=== PATIENT | male | born 1940 | race Caucasian/White ===

== ENCOUNTER 2016-11-20 10:45 | Emergency (ER) | payer OTHER ==
[2016-11-20 10:57] VITALS: BP 108/62; PULSE 82; TEMP 97.9; BMI 25.8
--- NOTE | 2016-11-20 11:57 | PDOC ---
[id number] 97 11/20/16 10:53 11/20/16 10:53 11/20/16 10:53 11/20/16 10:53 11/20/16 10:53 - Physical Exam Comments: 11/20/16 11:57 The patient was examined by [JHONATHAN Whitt] under my direct supervision. I personally evaluated the patient. I concur with the above findings and the plan of care. ED Treatment Course - LABORATORY CBC & Chemistry Diagram: 11/20/16 12:36 11/20/16 12:36 *DC/Admit/Observation/Transfer Diagnosis at time of Disposition: Lightheaded, Prostatitis - Discharge Dispostion Disposition: HOME Condition at time of disposition: Good - Prescriptions Prescriptions: Ciprofloxacin HCl [Cipro] 500 mg PO BID #28 tablet - Referrals Referrals: Josefa Delgadillo MD [Staff Physician] - - Patient Instructions Printed Discharge Instructions: How to Monitor Your Blood Pressure at Home, DI for Acute Prostatitis Additional Instructions: Please take antibiotics until completed. Drink plenty of fluids. Please get up in the morning in increments to check your blood pressure routinely. Please also notify your primary care physician of today's visit.
[2016-11-20 12:49] LABS: MCH 20.1 pg (25.7-33.7); MCHC 31.1 g/dl (32.0-35.9); MEAN CELL VOLUME 64.5 fl (80-96); MEAN PLT VOLUME 9.4 fl (7.5-11.1); NEUTROPHILS 71.8 % (42.8-82.8); RDW 17.9 % (11.9-15.9); WHITE BLOOD COUNT 6.3 K/mm3 (4.0-10.0)
[2016-11-20 13:15] LABS: ALBUMIN 4.6 g/dl (3.4-5.0); ALK PHOS 81 U/L (45-117); ANION GAP 13 (8-16); BILIRUBIN,TOTAL 1.5 mg/dL (0.2-1.0); CALCIUM 9.4 mg/dL (8.5-10.1); CO2 24 mmol/L (21-32); CREATININE 1.1 mg/dL (0.7-1.3); GLUCOSE,RANDOM 212 mg/dL (74-106); SGOT/AST 23 U/L (15-37); SGPT/ALT 37 U/L (12-78)
--- NOTE | 2016-11-20 13:19 | PDOC ---
History of Present Illness - General Chief Complaint: Blood Pressure Problem Stated Complaint: HIGH BLOOD PRESSURE, LIGHTHEADED Time Seen by Provider: 11/20/16 11:18 History Source: Patient Exam Limitations: No Limitations - History of Present Illness Initial Comments: 11/20/16 12:18 76-year-old male with history of hypertension diabetes and CAD presents the ED with complaints of lightheadedness one hour after taking his morning meds. Patient states similar symptoms yesterday but resolved after lying down and drinking some fluids. Patient states since symptoms occurred again today he decided come to the ER for further evaluation. Patient states took his blood pressures morning which is roughly 112/74 and then when he felt dizzy he took it again and was 102/66 which made him concerned and decided to seek treatment. Patient states no recent travel, recent illness, recent change in weight but does state on 10/04/2016 his Cardizem was switched from 30 twice a day to 60 mg at night. Patient denied associated symptoms such as headache, visual changes, nausea, chest pain, shortness of breath, or abdominal pain. Patient states is followed by Dr. Sudeep doll. Timing/Duration: intermittent, resolved prior to arrival Severity: mild Associated Symptoms: reports: other (lightheadedness) Past History - Past Medical History Allergies/Adverse Reactions: Allergies Allergy/AdvReac Type Severity Reaction Status Date / Time No Known Allergies Allergy Verified 11/20/16 10:56 Home Medications: Ambulatory Orders Amlodipine Besylate [Norvasc -] 10 mg PO DAILY 06/01/15 Aspirin [ASA -] 81 mg PO DAILY 06/01/15 Canagliflozin [Invokana] 100 mg PO AM 06/01/15 Metformin HCl [Glucophage] 1,000 mg PO BID 06/01/15 Metoprolol Succinate [Toprol Xl -] 50 mg PO DAILY 06/01/15 Pantoprazole Sodium [Protonix] 40 mg PO DAILY 06/01/15 Losartan/Hydrochlorothiazide [Losartan-Hctz 100-12.5 mg Tab] 1 each PO DAILY 12/30 Diabetes: Yes HTN: Yes Hypercholesterolemia: Yes - Surgical History Abdominal Surgery: No Appendectomy: No Cardiac Surgery: No - Psycho/Social/Smoking Cessation Hx Suicidal Ideation: No Smoking Status: Yes Smoking History: Never smoked Have you smoked in the past 12 months: No Number of Cigarettes Smoked Daily: 0 Information on smoking cessation initiated: No Hx Alcohol Use: No Drug/Substance Use Hx: No Substance Use Type: None Patient Lives Alone: No Lives with/in: spouse/SO Review of Systems - Review of Systems Able to Perform ROS?: Yes Constitutional: No: Symptoms Reported HEENTM: No: Symptoms Reported Respiratory: No: Symptoms reported Cardiac (ROS): Yes: Lightheadedness ABD/GI: No: Symptoms Reported : No: Symptoms Reported Musculoskeletal: No: Symptoms Reported Integumentary: No: Symptoms Reported Neurological: No: Symptoms reported Endocrine: No: Symptoms Reported Hematologic/Lymphatic: No: Symptoms Reported *Physical Exam - Vital Signs Last Vital Signs Temp Pulse Resp BP Pulse Ox 97.9 F 82 18 108/62 97 11/20/16 10:53 11/20/16 10:53 11/20/16 10:53 11/20/16 10:53 11/20/16 10:53 - Physical Exam General Appearance: Yes: Nourished, Appropriately Dressed. No: Apparent Distress HEENT: positive: EOMI, JING. negative: Pale Conjunctivae Neck: positive: Supple Respiratory/Chest: positive: Lungs Clear, Normal Breath Sounds. negative: Respiratory Distress, Accessory Muscle Use Cardiovascular: positive: Regular Rhythm, Regular Rate. negative: Murmur Gastrointestinal/Abdominal: positive: Soft. negative: Tenderness Extremity: positive: Normal Capillary Refill. negative: Pedal Edema Integumentary: positive: Normal Color, Warm, Moist Neurologic: positive: Motor Strength 5/5 (ambulatory) Heart Score/ECG Review - ECG Intrepretation Rhythm: Regular Rhythm (rate 77 with left axis deviation and left first-degree AV block. Unchanged from previous) ED Treatment Course - LABORATORY CBC & Chemistry Diagram: 11/20/16 12:36 11/20/16 12:36 - ADDITIONAL ORDERS Additional order review: Laboratory Results 11/20/16 12:36 Sodium 137 Potassium 4.1 Chloride 100 Carbon Dioxide 24 Anion Gap 13 BUN 24 H D Creatinine 1.1 D Creat Clearance w eGFR > 60 Random Glucose 212 H D Calcium 9.4 Total Bilirubin 1.5 H D AST 23 ALT 37 Alkaline Phosphatase 81 D Total Protein 8.0 Albumin 4.6 - RADIOLOGY Radiology Studies Ordered: Category Date Time Status CHEST PA & LAT [RAD] Stat Radiology 11/20/16 12:05 Completed Medical Decision Making - Medical Decision Making 11/20/16 13:21 Patient here with episodic lightheadedness 2 after taking his blood pressure meds this morning and yesterday morning. Patient is currently asymptomatic but decided come to the ER for further evaluation. Patient ordered for basic labs including EKG and chest x-ray with urine although this may be related to his recent change of Cardizem versus reevaluation of his meds in general. 11/20/16 14:02 Laboratory Tests 11/20/16 11/20/16 11/20/16 12:36 12:36 12:50 WBC 6.3 Hgb 12.1 Hct 39.0 Plt Count Pending Neutrophils % 71.8 Sodium 137 Potassium 4.1 Chloride 100 Carbon Dioxide 24 Anion Gap 13 BUN 24 H D Creatinine 1.1 D Random Glucose 212 H D Total Bilirubin 1.5 H D AST 23 ALT 37 Urine Glucose (UA) 3+ H Urine Blood 3+ H Ur Leukocyte Esterase 1+ H Urine RBC 87 Urine WBC 56 Case discussed with patient's urologist secondary to BPH and frequent UTIs, Dr. Josefa Doll's who happened to be here for another patient and states to start patient on Cipro and discharged home urine culture was sent. 11/20/16 14:03 *DC/Admit/Observation/Transfer Diagnosis at time of Disposition: Lightheaded Prostatitis Qualifiers: Prostatitis type: acute Qualified Code(s): N41.0 - Acute prostatitis - Discharge Dispostion Disposition: HOME Condition at time of disposition: Good - Referrals Referrals: Josefa Doll MD [Staff Physician] - - Patient Instructions Printed Discharge Instructions: How to Monitor Your Blood Pressure at Home, DI for Acute Prostatitis Additional Instructions: Please take antibiotics until completed. Drink plenty of fluids. Please get up in the morning in increments to check your blood pressure routinely. Please also notify your primary care physician of today's visit.
[2016-11-20 13:29] LABS: URINE APPEARANCE SLCLOUDY; URINE BILIRUBIN NEGATIVE (NEGATIVE); URINE COLOR YELLOW; URINE GLUCOSE (UA) 3+ (NEGATIVE); URINE KETONE NEGATIVE (NEGATIVE); URINE NITRITE NEGATIVE (NEGATIVE); URINE PROTEIN NEGATIVE (NEGATIVE); URINE UROBILINOGEN NEGATIVE E.U./dl (0.2-1.0)
[2016-11-20 13:35] LABS: URINE BLOOD 3+ (NEGATIVE); URINE LEUK ESTERASE 1+ (NEGATIVE)
[2016-11-20 13:37] LABS: URINE HYALINE CAST 5 /lpf; URINE MUCUS RARE; URINE RBC 87 /hpf (0-3); URINE WBC 56 /hpf (3-5)
--- NOTE | 2016-11-20 15:02 | PN ---
Progress Note (short form) - Note Progress Note: 76 M followed for BPh presented w lightheadedness, no acute pathology found. c/ o frequency and dysuria. pe: abd soft, non tender, normoactive bs, prostate 2+ soft, NT No acute pathology at present plan: c/w flomax and will give cipro for 1 week and follow up in office prn.
[2016-11-20 15:19] LABS: PLATELET COUNT 127 K/MM3 (134-434); PLATELET ESTIMATE SLT DECREASED (NORMAL)
[2016-11-20 15:20] LABS: ANISOCYTOSIS 2+; HYPOCHROMIA 2+; MICROCYTOSIS 2+; OVALOCYTES 1+; PLATELET COMMENT2 NO CLOTTING DETECTED; POIKILOCYTOSIS 2+; POLYCHROMASIA 2+; SPHEROCYTE 1+
--- NOTE | 2016-11-20 16:56 | EKG ---
Test Reason : Blood Pressure : / mmHG Vent. Rate : 077 BPM Atrial Rate : 077 BPM P-R Int : 226 ms QRS Dur : 108 ms QT Int : 374 ms P-R-T Axes : 021 -50 041 degrees QTc Int : 423 ms SINUS RHYTHM WITH 1ST DEGREE A-V BLOCK LEFT AXIS DEVIATION ABNORMAL ECG WHEN COMPARED WITH ECG OF 01-JUN-2015 10:53, NO SIGNIFICANT CHANGE WAS FOUND Confirmed by AURA MCFARLAND MD ([id number]) on 11/20/2016 4:56:25 PM Referred By: Confirmed By:AURA MCFARLAND MD
== END 2016-11-20 14:18 | disposition home or self-care (01) ==
LOC: JER 10:45
DX: R42 Dizziness and giddiness (principal); N40.0 Benign prostatic hyperplasia without lower urinary tract symptoms; N41.0 Acute prostatitis; I10 Essential (primary) hypertension; E78.00 Pure hypercholesterolemia, unspecified; E11.9 Type 2 diabetes mellitus without complications; Z79.84 Long term (current) use of oral hypoglycemic drugs
CPT/HCPCS: 36415; 71020-TC; 80053; 81003; 81015; 85025; 87086; 93005; 93010; 99281-25

== ENCOUNTER 2017-01-22 21:45 | Emergency (ER) | payer OTHER ==
[2017-01-22 21:57] VITALS: BP 157/99; TEMP 97.8; BMI 27.2
--- NOTE | 2017-01-22 22:22 | PDOC ---
History of Present Illness - General History Source: Patient Exam Limitations: No Limitations <Luis Manuel Pineda - Last Filed: 01/22/17 22:39> - History of Present Illness Initial Comments: 01/23/17 00:40 Patient is a 76 year old male with significant medical hx of HTN, HLD, DM, and bladder tumor s/p tumor removal who is presenting to the ED with complaint of high blood pressure. Today the patient took his blood pressure and saw a systolic reading in the 140s. He then took his medication and checked it again later, seeing a systolic reading in the 170s. Concerned, the patient decided to come to the ED for further evaluation. The patient is compliant with his blood pressure medications. He does not have any other complaints or constitutional symptoms. Denies any lightheadedness, chest pain, nausea, headaches, or shortness of breath. <Beatrice José - Last Filed: 01/23/17 00:43> - General Chief Complaint: Blood Pressure Problem Stated Complaint: BP PROBLEM Time Seen by Provider: 01/22/17 22:08 Past History - Past Medical History Diabetes: Yes HTN: Yes Hypercholesterolemia: Yes - Surgical History Abdominal Surgery: No Appendectomy: No Cardiac Surgery: No - Psycho/Social/Smoking Cessation Hx Suicidal Ideation: No Smoking Status: Yes Smoking History: Never smoked Have you smoked in the past 12 months: No Number of Cigarettes Smoked Daily: 0 Hx Alcohol Use: No Drug/Substance Use Hx: No Substance Use Type: None <Luis Manuel Pineda - Last Filed: 01/22/17 22:39> <Beatrice José - Last Filed: 01/23/17 00:43> - Past Medical History Allergies/Adverse Reactions: Allergies Allergy/AdvReac Type Severity Reaction Status Date / Time No Known Allergies Allergy Verified 01/22/17 21:57 Home Medications: Ambulatory Orders Amlodipine Besylate [Norvasc -] 10 mg PO DAILY 06/01/15 Aspirin [ASA -] 81 mg PO DAILY 06/01/15 Canagliflozin [Invokana] 100 mg PO AM 06/01/15 Metformin HCl [Glucophage] 1,000 mg PO BID 06/01/15 Metoprolol Succinate [Toprol Xl -] 50 mg PO DAILY 06/01/15 Pantoprazole Sodium [Protonix] 40 mg PO DAILY 06/01/15 Losartan/Hydrochlorothiazide [Losartan-Hctz 100-12.5 mg Tab] 1 each PO DAILY 12/30 Ciprofloxacin HCl [Cipro] 500 mg PO BID #28 tablet 11/20/16 Review of Systems - Review of Systems Comments:: 01/23/17 00:41 CONSTITUTIONAL: No reported: Fever, Chills, Diaphoresis, Generalized Weakness, Malaise, Loss of Appetite HEENT: No reported: Rhinorrhea, Nasal Congestion, Throat Pain, Throat Swelling, Difficulty Swallowing, Mouth Swelling, Ear Pain, Eye Pain, Visual Changes CARDIOVASCULAR: Reported: High Blood Pressure No reported: Chest Pain, Syncope, Palpitations, Irregular Heart Rate, Lightheadedness, Peripheral Edema RESPIRATORY: No reported: Cough, Shortness of Breath, SOB with Exertion, Orthopnea, Wheezing , Stridor, Hemoptysis GASTROINTESTINAL: No reported: Abdominal pain, Abdominal Distension, Nausea, Vomiting, Diarrhea, Constipation, Melena, Hematochezia GENITOURINARY: No reported: Dysuria, Frequency, Urgency, Hesitancy, Flank Pain, Genital Pain MUSCULOSKELETAL: No reported: Myalgia, Arthralgia, Joint Swelling, Back pain, Neck Pain SKIN: No reported: Rash, Itching, Pallor HEMEATOLOGIC/IMMUNOLOGIC: No reported: Easy Bleeding, Easy Bruising, Lymphadenopathy, Frequent infections ENDOCRINE: No reported: Unexplained Weight Gain, Unexplained Weight Loss, Heat Intolerance , Cold Intolerance NEUROLOGIC: No reported: Headache, Focal Weakness, Paresthesias, Vertigo, Lightheadedness, Unsteady Gait, Seizure, Mental Status Changes, Incontinence PSYCHIATRIC: No reported: Anxiety, Depression <Beatrice José - Last Filed: 01/23/17 00:43> *Physical Exam - Vital Signs Last Vital Signs Temp Pulse Resp BP Pulse Ox 97.8 F 82 18 157/99 95 01/22/17 21:54 01/22/17 21:54 01/22/17 21:54 01/22/17 21:54 01/22/17 21:54 <Luis Manuel Pineda - Last Filed: 01/22/17 22:39> - Vital Signs Last Vital Signs Temp Pulse Resp BP Pulse Ox 97.8 F 83 18 157/99 95 01/22/17 21:54 01/22/17 21:54 01/22/17 21:54 01/22/17 21:54 01/22/17 21:54 - Physical Exam Comments: 01/23/17 00:41 GENERAL: The patient is awake, alert, and fully oriented, Nontoxic - in no acute distress. HEAD: Normocephalic, atraumatic. EYES: extraocular movements intact, sclera anicteric, conjunctiva clear. ENT: Normal voice, Moist mucous membranes. NECK: Normal range of motion, supple LUNGS: Breath sounds equal, clear to auscultation bilaterally. No wheezes, no rhonchi, no rales. HEART: Regular rate and rhythm, without murmur, rub or gallop. ABDOMEN: Soft, nontender, normoactive bowel sounds. No guarding, no rebound.No CVA tenderness EXTREMITIES: Normal range of motion, no edema. No clubbing or cyanosis. No cords, erythema, or tenderness. NEUROLOGICAL: No facial assymetry, Normal speech, PSYCH: Normal mood, normal affect. SKIN: Warm, Dry, normal turgor <Beatrice José - Last Filed: 01/23/17 00:43> Medical Decision Making - Medical Decision Making 01/22/17 22:34 76y M hx htn, hl, dm, presents with hypertension. The pt wwas otherwise asypmtomatic without any associated cp, sob, headache, dizziness, vision changes , leg edema, abd pain, back pain, numbness/tingling/weakness. Pts BP here is reasonable at 150s spb will dc the pt with pmd fu for further evaluation of his bp return precuations were discussed I discussed the physical exam findings, ancillary test results and final diagnoses with the patient. I answered all of the patient's questions. The patient was satisfied with the care received and felt comfortable with the discharge plan and treatment plan. The patient will call their primary care physician within 24 hours to arrange follow-up and will return to the Emergency Department with any new, persistent or worsening symptoms. A portion of this note was documented by scribe services under my direction. I have reviewed the details of the note, within reason, and agree with the documentation with the following case summary and management plan written by me <Luis Manuel Pineda - Last Filed: 01/22/17 22:39> *DC/Admit/Observation/Transfer - Discharge Dispostion Admit: No <Luis Manuel Pineda - Last Filed: 01/22/17 22:39> - Attestations Scribe Attestion: 01/23/17 00:41 Documentation prepared by Beatrice José, acting as medical historian for Luis Manuel Pineda MD. <Beatrice José - Last Filed: 01/23/17 00:43> Diagnosis at time of Disposition: Hypertension Qualifiers: Hypertension type: essential hypertension Qualified Code(s): I10 - Essential ( primary) hypertension - Discharge Dispostion Disposition: HOME Condition at time of disposition: Improved - Referrals Referrals: Andrea Delgadillo MD [Primary Care Provider] - - Patient Instructions Printed Discharge Instructions: DI for High Blood Pressure Additional Instructions: Return to the emergency department immediately with ANY new, persistent or worsening symptoms. You MUST call and follow up with your doctor tomorrow for further evaluation of your symptoms. Results were discussed with you. Please make sure your doctor reviews the results of your emergency evaluation. If you had any xrays during your visit, it was read preliminarily by myself, a Radiologist will review it and if there are any additional findings we will call you. Print Language: SURINAMESE
[2017-01-22 23:51] VITALS: PULSE 83
== END 2017-01-22 23:11 | disposition home or self-care (01) ==
LOC: JER 21:45
DX: I10 Essential (primary) hypertension (principal); E78.5 Hyperlipidemia, unspecified; E11.9 Type 2 diabetes mellitus without complications; Z79.84 Long term (current) use of oral hypoglycemic drugs; Z79.82 Long term (current) use of aspirin
CPT/HCPCS: 99283-25

== ENCOUNTER 2017-08-10 19:09 | Emergency (ER) | payer OTHER ==
[2017-08-10 19:42] VITALS: BMI 29.0
[2017-08-10] MEDS ORDERED: LABETALOL HCL 5 MG/1 ML (100MG/20 ML VIAL) IVPUSH ONE (20:35)
--- NOTE | 2017-08-10 20:35 | PDOC ---
History of Present Illness - General Chief Complaint: Blood Pressure Problem Stated Complaint: BLOOD PRESSURE Time Seen by Provider: 08/10/17 20:18 History Source: Patient Exam Limitations: No Limitations - History of Present Illness Initial Comments: 08/10/17 21:55 77yo Male patient w/ PmHx: HTN, GERD, NIDDM presents to ED c/o elevated b/p. Patient states he took all his blood pressure medications as usual and his b/p systolic run 120's. He reports today it has been 150-160's. He denies OTC medication use, recent stress, CP, Abd pain, n/v/d, fever, rectal bleeding, hematuria, dysuria, back pain, cough, congestion, or any other complaints at this time. PCP- Hiral Sawyer Timing/Duration: getting worse Severity: mild, moderate, severe Modifying Factors: improves with: medication. worse with: cold therapy, eating , immobilization, movement, rest, other Associated Symptoms: denies: denies symptoms, chest pain, cough, diaphoresis, fever/chills, headaches, loss of appetite, malaise, nausea/vomiting, rash, seizure, shortness of breath, syncope, weakness, other Past History - Travel Traveled outside of the country in the last 30 days: No Close contact w/someone who was outside of country & ill: No - Past Medical History Allergies/Adverse Reactions: Allergies Allergy/AdvReac Type Severity Reaction Status Date / Time No Known Allergies Allergy Verified 08/10/17 19:39 Home Medications: Ambulatory Orders Aspirin [ASA -] 81 mg PO DAILY 06/01/15 Canagliflozin [Invokana] 100 mg PO AM 06/01/15 Metformin HCl [Glucophage] 1,000 mg PO BID 06/01/15 Metoprolol Succinate [Toprol Xl -] 100 mg PO DAILY 06/01/15 Pantoprazole Sodium [Protonix] 40 mg PO DAILY 06/01/15 Losartan/Hydrochlorothiazide [Losartan-Hctz 100-12.5 mg Tab] 1 tab PO DAILY Nifedipine ER [Procardia Xl -] 60 mg PO HS 08/10/17 Silodosin [Rapaflo] 4 mg PO HS 08/10/17 Diabetes: Yes HTN: Yes Hypercholesterolemia: Yes - Surgical History Abdominal Surgery: No Appendectomy: No Cardiac Surgery: No - Suicide/Smoking/Psychosocial Hx Smoking Status: Yes Smoking History: Former smoker Have you smoked in the past 12 months: No Number of Cigarettes Smoked Daily: 0 Information on smoking cessation initiated: No Hx Alcohol Use: No Drug/Substance Use Hx: No Substance Use Type: None Review of Systems - Review of Systems Able to Perform ROS?: Yes Is the patient limited Montenegrin proficient: No All Other Systems: Reviewed and Negative *Physical Exam - Vital Signs Last Vital Signs Temp Pulse Resp BP Pulse Ox 98.7 F 81 18 183/98 99 08/10/17 20:17 08/10/17 20:17 08/10/17 20:17 08/10/17 20:17 08/10/17 20:17 - Physical Exam General Appearance: Yes: Nourished, Appropriately Dressed. No: Apparent Distress, Mild Distress, Moderate Distress, Severe Distress Neck: positive: Trachea midline, Supple. negative: Rigid, Stridor, Lymphadenopathy (R), Lymphadenopathy (L), Tender lateral, Tender midline Respiratory/Chest: positive: Lungs Clear, Normal Breath Sounds. negative: Chest Tender, Respiratory Distress, Accessory Muscle Use, Labored Respiration, Rapid RR, Decreased Breath Sounds, Paradoxal Breathing, Rhonchi, Stridor, Wheezing Cardiovascular: positive: Regular Rhythm, Regular Rate. negative: Tachycardia Gastrointestinal/Abdominal: positive: Normal Bowel Sounds, Soft. negative: Tender, Distended, Guarding, Rebound, Tenderness Musculoskeletal: positive: Normal Inspection. negative: CVA Tenderness, Decreased Range of Motion, Vertebral Tenderness Extremity: positive: Normal Capillary Refill, Normal Inspection, Normal Range of Motion. negative: Tender, Pedal Edema, Swelling, Calf Tenderness, Erythema, Inflammation Integumentary: positive: Normal Color, Dry, Warm. negative: Erythema, Diaphoresis, Moist, Hives, Rash, Swelling Neurologic: positive: radar tester II-XII NML intact, Fully Oriented, Alert, Normal Mood/ Affect, Normal Response, Motor Strength 5/5 Heart Score/ECG Review - History History: Slightly suspicious - Electrocardiogram EKG: Normal - Age Age: >/= 65 - Risk Factors Risk Factors Heart Score: No Hx Hypercholesterolemia, Yes Hx Hypertension, Yes Hx Diabetes, No Smoking History, No Positive family hx of cardiac disease, No Hx Obesity Based on the list above the patient has:: 1-2 risk factors - Troponin Troponin: </= normal limit - Score Heart Score - Total: 3 - ECG Impressions Normal ECG: Yes Non-specific ST Elevation: No Ischemic Changes: No Bradycardia: No Heart Block: 1st Degree Block(>20mils) Torsades carmen Pointes: No WPW: No Comment:: 08/10/17 22:10 Sinus rhythm with 1st degree AV block Left axis deviation ED Treatment Course - LABORATORY CBC & Chemistry Diagram: 08/10/17 21:16 08/10/17 21:16 Medical Decision Making - Medical Decision Making 08/10/17 23:46 Repeat b/p 148/80. Patient has no complaints of CP, Abd pain, Back pain, n/v/d, fever, diff breathing or any acute process. Called place to PMD, unable to ge return phone call. Patient requesting d/c as he has an appointment next week with Dr. Delgadillo. Plan: d/c to home. f/u with PCP. Return if any changes. *DC/Admit/Observation/Transfer Diagnosis at time of Disposition: Hypertension Qualifiers: Hypertension type: other secondary hypertension Qualified Code(s): I15.8 - Other secondary hypertension; I15.8 - Other secondary hypertension; I15.8 - Other secondary hypertension - Discharge Dispostion Disposition: HOME Condition at time of disposition: Improved Admit: No - Referrals Referrals: Josefa Delgadillo MD [Staff Physician] - - Patient Instructions Printed Discharge Instructions: DI for High Blood Pressure, How to Monitor Your Blood Pressure at Home Additional Instructions: Keep your appointment with Dr. Delgadillo. Call this week for follow up appointment. Return if symptoms worsen or any concerns for further evaluation. Print Language: GRENADIAN
[2017-08-10 20:56] VITALS: TEMP 98.7
[2017-08-10] MEDS ORDERED: LABETALOL HCL 5 MG/1 ML (200MG/40ML VIAL) IVPB ONE (20:59)
[2017-08-10 21:37] LABS: BASOPHIL 2.5 % (0-2.0); EOSINOPHIL 2.2 % (0-4.5); MCH 20.6 pg (25.7-33.7); MCHC 32.1 g/dl (32.0-35.9); MEAN CELL VOLUME 64.3 fl (80-96); MEAN PLT VOLUME 9.7 fl (7.5-11.1); NEUTROPHILS 54.9 % (42.8-82.8); PLATELET COUNT 140 K/MM3 (134-434); RDW 16.9 % (11.9-15.9); WHITE BLOOD COUNT 6.6 K/mm3 (4.0-10.0)
[2017-08-10 21:41] LABS: INR 1.08 (0.82-1.09); PROTHROMBIN TIME (PATIENT) 12.2 SEC (9.98-11.88)
[2017-08-10 21:50] LABS: ALBUMIN 4.4 g/dl (3.4-5.0); ANION GAP 9 (8-16); CALCIUM 9.2 mg/dL (8.5-10.1); CO2 27 mmol/L (21-32); CREATININE 0.8 mg/dL (0.7-1.3); GLUCOSE,RANDOM 109 mg/dL (74-106); SGOT/AST 26 U/L (15-37); SGPT/ALT 39 U/L (12-78); TOT PROT 7.6 g/dl (6.4-8.2)
[2017-08-10 21:52] LABS: ALK PHOS 79 U/L (45-117); CPK 135 IU/L (39-308); TROPONIN I < 0.02 ng/ml (0.00-0.05)
[2017-08-10 22:06] LABS: URINE APPEARANCE SLCLOUDY; URINE BILIRUBIN NEGATIVE (NEGATIVE); URINE BLOOD 3+ (NEGATIVE); URINE COLOR YELLOW; URINE GLUCOSE (UA) 3+ (NEGATIVE); URINE KETONE NEGATIVE (NEGATIVE); URINE NITRITE NEGATIVE (NEGATIVE); URINE UROBILINOGEN NEGATIVE mg/dL (0.2-1.0)
[2017-08-10 22:12] LABS: URINE PROTEIN 1+ (NEGATIVE)
[2017-08-10 22:16] LABS: ANISOCYTOSIS 2+; HYPOCHROMIA 2+; MICROCYTOSIS 2+; PLATELET COMMENT2 NO CLOTTING DETECTED; PLATELET COMMENT3 FEW LARGE PLTS; PLATELET ESTIMATE SLT DECREASED (NORMAL); POIKILOCYTOSIS 1+; POLYCHROMASIA 1+
[2017-08-10] MEDS ORDERED: cloNIDine HCL 0.1 MG TABLET PO ONE (22:28)
[2017-08-10] MEDS ORDERED: cloNIDine HCL 0.1 MG TABLET ONE (22:41)
[2017-08-10 23:44] LABS: URINE RBC MANY /hpf (0-3); URINE WBC FEW /hpf (3-5)
[2017-08-10 23:46] LABS: URINE BACTERIA FEW /hpf (NONE SEEN)
[2017-08-11 00:20] VITALS: BP 148/81; PULSE 70
[2017-08-11 10:38] LABS: URINE LEUK ESTERASE Negative (NEGATIVE)
--- NOTE | 2017-08-11 10:40 | EKG ---
Test Reason : Blood Pressure : / mmHG Vent. Rate : 062 BPM Atrial Rate : 062 BPM P-R Int : 246 ms QRS Dur : 110 ms QT Int : 430 ms P-R-T Axes : 059 -40 009 degrees QTc Int : 436 ms SINUS RHYTHM WITH 1ST DEGREE A-V BLOCK LEFT AXIS DEVIATION INFERIOR INFARCT , AGE UNDETERMINED ABNORMAL ECG WHEN COMPARED WITH ECG OF 20-NOV-2016 12:23, INFERIOR INFARCT IS NOW PRESENT Confirmed by VICKY LYNCH, RAHEL ([id number]) on 08/11/2017 10:40:24 AM Referred By: Confirmed By:RAHEL PERRY MD
== END 2017-08-11 00:20 | disposition home or self-care (01) ==
LOC: JER 19:09
PROC: 3E033GC Introduction of Other Therapeutic Substance into Peripheral Vein, Percutaneous Approach (ICD-10-PCS; principal; 2017-08-10)
DX: I15.8 Other secondary hypertension (principal); E78.00 Pure hypercholesterolemia, unspecified; E11.9 Type 2 diabetes mellitus without complications; Z79.84 Long term (current) use of oral hypoglycemic drugs
CPT/HCPCS: 36415; 80053; 81003; 81015; 82550; 84484; 85025; 85610; 93005; 93010; 99283-25

== ENCOUNTER 2017-09-02 11:22 | Day surgery (SDC) | payer OTHER ==
[2017-08-30 16:16] VITALS: BMI 27.2
[2017-09-02] MEDS ORDERED: MIDAZOLAM HCL 2 MG/2 ML SINGLE DOSE VIAL ONE (16:14)
[2017-09-02] MEDS ORDERED: ceFAZolin SODIUM 1 GM VIAL IVPB ONE (16:33)
[2017-09-02] MEDS ORDERED: ceFAZolin SODIUM 1 GM VIAL ONE (16:36)
[2017-09-02] MEDS ORDERED: DEXAMETHASONE SOD PHOSPHATE 4 MG/1 ML VIAL ONE (16:38)
[2017-09-02] MEDS ORDERED: LIDOCAINE HCL/PF 2% SDV 5ML VIAL ONE (16:38)
[2017-09-02] MEDS ORDERED: ONDANSETRON 4 MG/2 ML VIAL IVPUSH PRN (17:13)
[2017-09-02] MEDS ORDERED: LACTATED RINGERS SOLUTION 1,000 ML IV SCH (17:15)
[2017-09-02 17:51] VITALS: TEMP 98.2
[2017-09-02 18:54] VITALS: BP 138/79; PULSE 60
--- NOTE | 2017-09-04 10:41 | OP ---
DATE OF OPERATION: 09/02/2017 PREOPERATIVE DIAGNOSIS: Bladder tumor. POSTOPERATIVE DIAGNOSIS: Bladder tumor. OPERATIVE PROCEDURE: Cystourethroscopy, urethral dilation, and transurethral resection of bladder tumors on the left hemitrigone, right posterior dome, and right lateral wall, a large amount of tumor burden and malignant. ANESTHESIA: General. DESCRIPTION OF PROCEDURE: Under the above-stated anesthesia, patient is prepped and draped in the usual sterile manner. A resectoscope was inserted without difficulty. Urine was collected for cytology and C&S. Resection of the tumor in the left hemitrigone was carried out to the base. Tumors in the right lateral wall and right upper dome were also resected. Hemostasis was secured with electrocoagulation. Ureteral orifices were within normal limits with efflux of clear urine. No other tumors were seen. Tumor chips were evacuated with an Sitestar evacuator. Again, no active bleeding was noted. A 20-Vincentian Galarza was inserted. This was connected to a leg bag. The patient tolerated the procedure well. He returned to the recovery room in good condition. Cristina [id number]
--- NOTE | 2017-09-04 10:41 | HP ---
DATE OF ADMISSION: 09/02/2017 HISTORY OF PRESENT ILLNESS: Patient is a 77-year-old male with history of recurrent bladder tumors. He underwent a TUR bladder tumor January 03, 2017. He received 6 weeks of BCG. He underwent a cystoscopy on August 19, 2017. Recurrent tumors were found on the lateral and trigone portions of the bladder. Patient also has BPH with prostatism including nocturia, frequency, and urgency. PAST MEDICAL HISTORY: He does have history of diabetes, high blood pressure, and COPD. MEDICATIONS: He is on Rapaflo and Proscar for his BPH. He takes Invokana, losartan, metformin, metoprolol, Adalat, and Rapaflo. PHYSICAL EXAMINATION: General: A well-developed adult male. Abdomen: Soft. No CVA tenderness is encountered. Genitalia: Atraumatic. Meatus is adequate. Testes are normal in size and consistency. Rectal: Prostate is 2+, smooth, benign, nontender. LABORATORY DATA: BUN is 14 and creatinine 0.7. PSA is 0.13. Patient is scheduled for a TURBT. Cristina [id number]
--- NOTE | 2017-09-06 19:03 | PATH ---
Surgical Pathology Report Patient Name: MALATHI CHUA JR [facility]. Rec. #: [id number] /Age/Gender: 1940 (Age: 77) / M Account: [id number] Location: [facility] [place] [facility] Taken: 09/02/2017 Received: 09/05/2017 Reported: 09/06/2017 Physicians: Josefa Delgadillo M.D. 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 flat carcinoma in situ (CIS) IS NOT identified. Lymphovascular invasion IS NOT identified. Comment: Office of Dr. Delgadillo informed that significant findings will be faxed (Veena). Electronically Signed Sandi Rose M.D. Gross Description Received in formalin labeled "bladder tumor," is a 3.2 x 1.7 x 0.3 cm aggregate of stewart soft tissue fragments admixed with blood clot. The formalin is filtered and the specimen is entirely submitted in 2 cassettes. /09/05/201709/05/2017
--- NOTE | 2017-09-07 15:13 | PATH ---
Cytology Non-Gynecological Report Patient Name: MALATHI CHUA JR [facility]. Rec. #: [id number] /Age/Gender: 1940 (Age: 77) / M Account: [id number] Location: [facility] Taken: 09/02/2017 Received: 09/06/2017 Reported: 09/07/2017 Physicians: Josefa Delgadillo M.D. Specimen(s) Received URINE VOIDED Clinical History Bladder tumor Final Diagnosis URINE FOR CYTOLOGY: SATISFACTORY FOR EVALUATION. HIGH GRADE UROTHELIAL CARCINOMA. SCANT EVIDENCE. ATYPICAL UROTHELIAL CELLS WITH HYPERCHROMASIA, INCREASED NUCLEUS TO CYTOPLASMIC RATIO AND IRREGULAR NUCLEAR CONTOURS PRESENT, BEST SEEN ON CELL BLOCK MATERIAL. Comment: Concurrent bladder biopsy is reviewed ([id number]). Electronically Signed Sandi Rose M.D.
== END 2017-09-02 19:03 | disposition home or self-care (01) ==
LOC: JASU-SURG 11:22
PROVIDERS: ATTEND Urology
PROC: 0TBB8ZX Excision of Bladder, Via Natural or Artificial Opening Endoscopic, Diagnostic (ICD-10-PCS; principal; 2017-09-02 13:00)
DX: C67.9 Malignant neoplasm of bladder, unspecified (principal)
CPT/HCPCS: 87086; 88305-TC

== ENCOUNTER 2018-01-10 10:48 | Inpatient (IN) | payer OTHER ==
[~2018-01-10 10:48] MED LIST: Methylnaltrexone Bromide 12 MG/0.6 ML KIT SQ SCH
[2018-01-10 10:57] VITALS: BMI 27.2
[2018-01-10] MEDS ORDERED: ONDANSETRON 4 MG/2 ML VIAL IVPUSH ONE (11:47)
[2018-01-10] MEDS ORDERED: morphine CARPU-JECT 2 MG/1 ML DISP.SYRIN IVPUSH ONE ×2 (11:47→14:02)
[2018-01-10] MEDS ORDERED: SODIUM CHLORIDE 1,000 ML IV STA (11:47)
[2018-01-10] MEDS ORDERED: morphine SULFATE 4 MG/ML VIAL ONE ×2 (12:44→14:08)
[2018-01-10] MEDS ORDERED: ONDANSETRON 4 MG/2 ML VIAL ONE (12:44)
--- NOTE | 2018-01-10 12:52 | PDOC ---
History of Present Illness - General Chief Complaint: Pain, Acute Stated Complaint: ABD/BACK PAIN Time Seen by Provider: 01/10/18 11:25 History Source: Patient Exam Limitations: No Limitations - History of Present Illness Travel History: No Initial Comments: 01/10/18 12:10 77-year-old male presents to the ED with complaints of periumbilical pain which he describes as a sharp fullness since awakening this morning. Patient states had a bladder tumor resected approximately one year ago and is followed by Dr. Delgadillo, his urologist who he was going to see today. Patient states due to the pain,he did not go to his urologist and decided come to the ER. Patient denies fever, chills, cough, shortness of breath and chest pain. Patient Does state intermittent constipation after being placed on iron recently but stopped approximately 2 weeks ago secondary to the constipation. Patient states last bowel movement was this morning which he describes as formed and brown. Quality: reports: moderate, fullness, sharpness Abdominal Pain Onset Location: reports: periumbilical, generalized abdomen Pain Radiation: reports: no radiation Activities at Onset: reports: none Aggravating Factors: improves with: None Alleviating Factors: improves with: None Past History - Past Medical History Allergies/Adverse Reactions: Allergies Allergy/AdvReac Type Severity Reaction Status Date / Time No Known Allergies Allergy Verified 01/10/18 10:53 Home Medications: Ambulatory Orders Aspirin [ASA -] 81 mg PO DAILY 06/01/15 Metformin HCl [Glucophage] 1,000 mg PO BID 06/01/15 Metoprolol Succinate [Toprol Xl -] 100 mg PO DAILY 06/01/15 Pantoprazole Sodium [Protonix] 40 mg PO DAILY 06/01/15 Losartan/Hydrochlorothiazide [Losartan-Hctz 100-12.5 mg Tab] 1 tab PO DAILY Silodosin [Rapaflo] 4 mg PO HS 08/10/17 Empagliflozin [Jardiance] 10 mg PO DAILY 08/30/17 Finasteride 5 mg PO HS 08/30/17 Nifedipine ER [Procardia Xl -] 60 mg PO DAILY 01/10/18 Anemia: No Asthma: No Cancer: No Cardiac Disorders: No CVA: No COPD: No CHF: No Dementia: No Diabetes: Yes GI Disorders: No Disorders: No HTN: Yes Hypercholesterolemia: No Liver Disease: No Seizures: No Thyroid Disease: No - Surgical History Abdominal Surgery: No Appendectomy: No Cardiac Surgery: No - Suicide/Smoking/Psychosocial Hx Smoking Status: Yes Smoking History: Former smoker Have you smoked in the past 12 months: No Number of Cigarettes Smoked Daily: 0 If you are a former smoker, when did you quit?: 1989 Information on smoking cessation initiated: No Hx Alcohol Use: No Drug/Substance Use Hx: No Substance Use Type: None Hx Substance Use Treatment: No Patient Lives Alone: No Lives with/in: spouse/SO Review of Systems - Review of Systems Able to Perform ROS?: Yes Constitutional: No: Symptoms Reported HEENTM: No: Symptoms Reported Respiratory: No: Symptoms reported Cardiac (ROS): No: Symptoms Reported ABD/GI: Yes: Constipated (recent history), Nausea, Abdominal cramping : Yes: Hematuria (ntermittent intermittently for the past 3 months). No: Dysuria, Discharge, Frequency, Flank Pain Musculoskeletal: No: Symptoms Reported Integumentary: No: Symptoms Reported Endocrine: No: Symptoms Reported Hematologic/Lymphatic: No: Symptoms Reported *Physical Exam - Vital Signs Last Vital Signs Temp Pulse Resp BP Pulse Ox 97.6 F 79 16 124/66 96 01/10/18 10:54 01/10/18 10:54 01/10/18 10:54 01/10/18 10:54 01/10/18 10:54 - Physical Exam General Appearance: Yes: Nourished, Appropriately Dressed. No: Apparent Distress HEENT: positive: Pharynx Normal (dry). negative: Pale Conjunctivae Neck: positive: Supple Respiratory/Chest: positive: Lungs Clear, Normal Breath Sounds. negative: Respiratory Distress, Accessory Muscle Use Cardiovascular: positive: Regular Rhythm, Regular Rate. negative: Murmur Gastrointestinal/Abdominal: positive: Soft, Distended (upper abdomen), Tenderness (generalized upper abdomen) Extremity: positive: Normal Capillary Refill. negative: Pedal Edema Integumentary: positive: Normal Color, Warm, Moist Neurologic: positive: Motor Strength 5/5 (ambulatory) ED Treatment Course - LABORATORY CBC & Chemistry Diagram: 01/10/18 12:13 01/10/18 12:13 - RADIOLOGY Radiology Studies Ordered: Category Date Time Status CHEST X-RAY PORTABLE* [RAD] Stat Radiology 01/10/18 11:46 Ordered KUB (KID UR & BLAD) [RAD] Stat Radiology 01/10/18 11:46 Ordered Medical Decision Making - Medical Decision Making 01/10/18 12:58 Patient complains of upper abdominal pain which she describes as a false sharp sensation causing him nausea presently. Patient with history of bladder tumor and has had hematuria for the past 3 months requiring him to receive bladder irrigation and ultrasound performed by his urologist. Patient on exam had upper abdominal tenderness and distention concerning for obstruction versus perforation versus constipation. Patient ordered for labs, urine, and x-rays. Patient also ordered for morphine and Zofran and IV fluids 01/10/18 14:02 Laboratory Tests 01/10/18 01/10/18 01/10/18 12:13 12:13 12:13 WBC 7.4 Hgb 10.2 L Hct 31.7 L MCH 19.7 L RDW 17.6 H Plt Count 170 MPV 10.0 Neutrophils % 89.0 H D Lymphocytes % 8.0 D Monocytes % 2.5 L Basophils % 0.4 Sodium 136 Potassium 4.3 Chloride 102 Carbon Dioxide 24 Anion Gap 10 BUN 35 H D Creatinine 1.7 H D Creat Clearance w eGFR 39.28 Random Glucose 166 H Calcium 9.0 Magnesium 2.0 Total Bilirubin 0.8 AST 18 ALT 22 D Alkaline Phosphatase 112 D Troponin I < 0.02 Urine Protein Urine Glucose (UA) Urine Ketones Urine Blood Urine Nitrite Ur Leukocyte Esterase Urine WBC (Auto) Urine RBC (Auto) 01/10/18 12:50 WBC Hgb Hct MCH RDW Plt Count MPV Neutrophils % Lymphocytes % Monocytes % Basophils % Sodium Potassium Chloride Carbon Dioxide Anion Gap BUN Creatinine Creat Clearance w eGFR Random Glucose Calcium Magnesium Total Bilirubin AST ALT Alkaline Phosphatase Troponin I Urine Protein 2+ H Urine Glucose (UA) 3+ H Urine Ketones Negative Urine Blood 3+ H Urine Nitrite Negative Ur Leukocyte Esterase Trace Urine WBC (Auto) 6 Urine RBC (Auto) 1616 X-ray shows nonspecific bowel gas pattern with mild dilatation of the small and large bowel loops diffusely. This could represent ileus. Patient ordered for abdominal CT with contrast. Patient requesting more morphine since he stated starting to wear off. Patient be ordered for an additional 2 mg of morphine and will consult Dr. Andrea Delgadillo shortly. patient is also followed by Dr. Dorman for GI . 01/10/18 16:[address] Andrade and recommended consult to GI and urology. Pt in route to CT. pt admitted to med/surg inpt *DC/Admit/Observation/Transfer Diagnosis at time of Disposition: Abdominal pain, Hematuria - Discharge Dispostion Admit: Yes - Referrals Referrals: Andrea Delgadillo MD [Primary Care Provider] - - Patient Instructions - Post Discharge Activity
[2018-01-10 12:57] LABS: BASO % 0.4 % (0-2.0); EOS % 0.1 % (0-4.5); HEMATOCRIT 31.7 % (35.4-49); HEMOGLOBIN 10.2 GM/dL (11.7-16.9); MCHC 32.1 g/dl (32.0-35.9); MEAN CELL VOLUME 61.5 fl (80-96); MONO % 2.5 % (3.8-10.2); PLATELET COUNT 170 K/MM3 (134-434); RBC 5.16 M/mm3 (4.00-5.60); RDW 17.6 % (11.9-15.9); WHITE BLOOD COUNT 7.4 K/mm3 (4.0-10.0)
[2018-01-10 12:59] LABS: MCH 19.7 pg (25.7-33.7)
[2018-01-10 13:01] LABS: URINE APPEARANCE CLOUDY; URINE BILIRUBIN NEGATIVE (<2.0 mg/dL); URINE BLOOD 3+ (NEGATIVE); URINE GLUCOSE (UA) 3+ (NEGATIVE); URINE KETONE NEGATIVE (NEGATIVE); URINE LEUK ESTERASE TRACE (NEGATIVE); URINE NITRITE NEGATIVE (NEGATIVE); URINE UROBILINOGEN NEGATIVE mg/dL (0.2-1.0)
[2018-01-10 13:09] LABS: URINE PROTEIN 2+ (NEGATIVE)
[2018-01-10 13:12] LABS: URINE MUCUS FEW
[2018-01-10 13:15] LABS: URINE COLOR PINK
[2018-01-10 13:23] LABS: ALBUMIN 4.3 g/dl (3.4-5.0); ANION GAP 10 (8-16); BLOOD UREA NITROGEN 35 mg/dL (7-18); CHLORIDE 102 mmol/L (98-107); CO2 24 mmol/L (21-32); CREATININE 1.7 mg/dL (0.7-1.3); GLUCOSE,RANDOM 166 mg/dL (74-106); LIPASE 166 U/L (73-393); POTASSIUM 4.3 mmol/L (3.5-5.1); SGOT/AST 18 U/L (15-37); SGPT/ALT 22 U/L (12-78); SODIUM 136 mmol/L (136-145)
[2018-01-10 13:25] LABS: ALK PHOS 112 U/L (45-117); BILIRUBIN,TOTAL 0.8 mg/dL (0.2-1.0); TOT PROT 7.6 g/dl (6.4-8.2)
--- NOTE | 2018-01-10 16:48 | EKG ---
Test Reason : Blood Pressure : / mmHG Vent. Rate : 071 BPM Atrial Rate : 071 BPM P-R Int : 236 ms QRS Dur : 106 ms QT Int : 408 ms P-R-T Axes : 056 -35 024 degrees QTc Int : 443 ms SINUS RHYTHM WITH 1ST DEGREE A-V BLOCK LEFT AXIS DEVIATION ABNORMAL ECG WHEN COMPARED WITH ECG OF 10-AUG-2017 21:33, NO SIGNIFICANT CHANGE WAS FOUND Confirmed by MD Gilmar, Valentín ([id number]) on 01/10/2018 4:48:05 PM Referred By: Confirmed By:Valentín Schafer MD
--- NOTE | 2018-01-10 20:47 | CON.GI ---
Consult Consult Specialty:: GI Reason for Consultation:: abdominal distention - History of Present Illness History of Present Illness: 77 y/o male with PMH of bladder tumor [facility] history of hematuria, 2 day history of abdominal distention, constipation. - History Source History Provided By: Patient, Medical Record - Alcohol/Substance Use Hx Alcohol Use: No - Smoking History Smoking history: Former smoker Have you smoked in the past 12 months: No Aproximately how many cigarettes per day: 0 If you are a former smoker, when did you quit?: 1989 Home Medications - Allergies Allergies/Adverse Reactions: Allergies Allergy/AdvReac Type Severity Reaction Status Date / Time No Known Allergies Allergy Verified 01/10/18 10:53 - Home Medications Home Medications: Ambulatory Orders Aspirin [ASA -] 81 mg PO DAILY 06/01/15 Metformin HCl [Glucophage] 1,000 mg PO BID 06/01/15 Metoprolol Succinate [Toprol Xl -] 100 mg PO DAILY 06/01/15 Pantoprazole Sodium [Protonix] 40 mg PO DAILY 06/01/15 Losartan/Hydrochlorothiazide [Losartan-Hctz 100-12.5 mg Tab] 1 tab PO DAILY Silodosin [Rapaflo] 4 mg PO HS 08/10/17 Empagliflozin [Jardiance] 10 mg PO DAILY 08/30/17 Finasteride 5 mg PO HS 08/30/17 Nifedipine ER [Procardia Xl -] 60 mg PO DAILY 01/10/18 Physical Exam-GI Vital Signs: Vital Signs Temperature 97.5 F L 01/10/18 18:04 Pulse Rate 82 01/10/18 18:04 Respiratory Rate 16 01/10/18 18:04 Blood Pressure 147/75 01/10/18 18:04 O2 Sat by Pulse Oximetry (%) 95 01/10/18 18:04 Constitutional: Yes: Well Nourished, Poor Hygeine Eyes: Yes: Occular Prosthesis HENT: Yes: Tonsillar Exudate Neck: Yes: Tenderness Respiratory: Yes: CTA Bilaterally Gastrointestinal Inspection: Yes: Distention ...Palpate: Yes: Soft, Tenderness (--diffuse). No: Firm/Rigid, Guarding, Hepatomegaly, Splenomegaly ...Percussion: Yes: Tympanitic Labs: CBC, BMP 01/10/18 12:13 03/27/18 12:13 Problem List - Problems (1) Abdominal pain Assessment/Plan: associated with bloating and constipation r/o secondary to IBS and Bacterial overgrowth, also with thickened fold of the stomach R>IV Ceftriaxone Relistor fleet enemas IV hydration Code(s): R10.9 - UNSPECIFIED ABDOMINAL PAIN
[2018-01-10] MEDS ORDERED: HYDROmorphone HCL CARPU-JECT 1 MG/1 ML DISP.SYRIN IVPB PRN (20:49)
[2018-01-10] MEDS ORDERED: SODIUM PHOSPHATE/NA BIPHOS 133 ML ENEMA PR ONE (20:51)
[2018-01-10] MEDS ORDERED: DEXTROSE 5%-NORMAL SALINE 1,000 ML IV SCH (21:00)
[2018-01-10] MEDS ORDERED: cefTRIAXone SODIUM 1 GM VIAL ONE (21:30)
[2018-01-10] MEDS ORDERED: DEXTROSE 5%-WATER - 50 ML IVPB ONE (21:30)
[2018-01-10] MEDS: METOCLOPRAMIDE HCL INJECTION 10 MG/2 ML VIAL IVPB SCH (21:37)
[2018-01-10] MEDS: CEFTRIAXONE 1 GM in DEXTROSE 5%-WATER - 50 ML IVPB SCH (21:37)
[2018-01-10] MEDS: Methylnaltrexone Bromide 12 MG/0.6 ML KIT SQ SCH (22:11)
[2018-01-10] MEDS: SODIUM PHOSPHATE/NA BIPHOS 133 ML ENEMA PR ONE (22:30)
[2018-01-10] MEDS ORDERED: morphine SULFATE 4 MG/ML VIAL IVPUSH PRN (23:22)
[2018-01-11] MEDS ORDERED: morphine SULFATE 4 MG/ML VIAL IM PRN (00:28)
[2018-01-11] MEDS: SODIUM PHOSPHATE/NA BIPHOS 133 ML ENEMA PR ONE (01:12)
[2018-01-11] MEDS: DEXTROSE 5%-0.45% SALINE 1,000 ML IV SCH (02:38)
[2018-01-11] MEDS: METOCLOPRAMIDE HCL INJECTION 10 MG/2 ML VIAL IVPB SCH ×3 (05:05→22:41)
[2018-01-11] MEDS: metFORMIN HCL 500 MG TABLET (FP) PO SCH ×2 (06:15→16:27)
[2018-01-11] MEDS: INSULIN SLIDING SCALE (NOVOLOG) 1 VIAL SQ SCH ×4 (06:16→22:52)
[2018-01-11] MEDS ORDERED: PATIENT'S OWN MEDICATION (NON-FORMULARY) (Losartan/Hydrochlorothiazide [Losartan-Hctz 100- PO SCH (10:00)
[2018-01-11] MEDS ORDERED: PATIENT'S OWN MEDICATION (NON-FORMULARY) (Empagliflozin [Jardiance] 10 MG) PO SCH (10:00)
[2018-01-11] MEDS ORDERED: DEXTROSE 5%-WATER - 50 ML IVPB ONE (11:34)
[2018-01-11] MEDS ORDERED: cefTRIAXone SODIUM 1 GM VIAL ONE (11:34)
[2018-01-11] MEDS: HEPARIN NA (PORCINE) 5,000 UNITS/ML 1ML VIAL SQ SCH ×2 (11:42→22:41)
[2018-01-11] MEDS: PANTOPRAZOLE 40 MG TABLET (FP) PO SCH (11:43)
[2018-01-11] MEDS: NIFEdipine E.R 60 MG TABLET (UD) PO SCH (11:43)
[2018-01-11] MEDS: LOSARTAN POTASSIUM 50 MG TABLET (FP) PO SCH (11:43)
[2018-01-11] MEDS: ASPIRIN 81 MG CHEWABLE TABLETS PO SCH (11:44)
[2018-01-11] MEDS: HYDROCHLOROTHIAZIDE 12.5 MG CAPSULE (FP) PO SCH (11:44)
[2018-01-11] MEDS: CEFTRIAXONE 1 GM in DEXTROSE 5%-WATER - 50 ML IVPB SCH (12:01)
--- NOTE | 2018-01-11 12:15 | CON.ID ---
Consult Consult Specialty:: infectious diseases Referred by:: Reason for Consultation:: uti/ - History of Present Illness Chief Complaint: constipation hematuria History of Present Illness: 77-year-old male presents to the ED with complaints of periumbilical pain which he describes as a sharp fullness since awakening this morning. Patient states had a bladder tumor resected approximately one year ago and is followed by Dr. Delgadillo, . Patient states due to the pain,he did not go to his urologist and decided come to the ER. Patient denies fever, chills, cough, shortness of breath and chest pain. Patient Does state intermittent constipation after being placed on iron recently but stopped approximately 2 weeks ago secondary to the constipation. patient mentions that he was having alvaro hematuria and his urine currently is wine color not passing gases and has not had a bowel movement currently comfortable wourkup of the patient shows lactic acidosis denies any fever,nausea and vomiting - History Source History Provided By: Patient, Family Member Limitations to Obtaining History: No Limitations - Alcohol/Substance Use Hx Alcohol Use: No - Smoking History Smoking history: Former smoker Have you smoked in the past 12 months: No Aproximately how many cigarettes per day: 0 If you are a former smoker, when did you quit?: 1989 Home Medications - Allergies Allergies/Adverse Reactions: Allergies Allergy/AdvReac Type Severity Reaction Status Date / Time No Known Allergies Allergy Verified 01/10/18 10:53 - Home Medications Home Medications: Ambulatory Orders Aspirin [ASA -] 81 mg PO DAILY 06/01/15 Metformin HCl [Glucophage] 1,000 mg PO BID 06/01/15 Metoprolol Succinate [Toprol Xl -] 100 mg PO DAILY 06/01/15 Pantoprazole Sodium [Protonix] 40 mg PO DAILY 06/01/15 Losartan/Hydrochlorothiazide [Losartan-Hctz 100-12.5 mg Tab] 1 tab PO DAILY Silodosin [Rapaflo] 4 mg PO HS 08/10/17 Empagliflozin [Jardiance] 10 mg PO DAILY 08/30/17 Finasteride 5 mg PO HS 08/30/17 Nifedipine ER [Procardia Xl -] 60 mg PO DAILY 01/10/18 Review of Systems - Review of Systems Constitutional: reports: No Symptoms Eyes: reports: No Symptoms HENT: reports: No Symptoms Neck: reports: No Symptoms Cardiovascular: reports: No Symptoms Respiratory: reports: No Symptoms Gastrointestinal: reports: Constipation Genitourinary: reports: Dysuria, Hematuria Musculoskeletal: reports: No Symptoms Integumentary: reports: No Symptoms Neurological: reports: No Symptoms Endocrine: reports: No Symptoms Hematology/Lymphatic: reports: No Symptoms Psychiatric: reports: No Symptoms Physical Exam Vital Signs: Vital Signs Temperature 98.9 F 01/11/18 06:00 Pulse Rate 64 01/11/18 06:00 Respiratory Rate 18 01/11/18 06:00 Blood Pressure 147/88 01/11/18 06:00 O2 Sat by Pulse Oximetry (%) 95 01/10/18 22:27 Constitutional: Yes: Well Nourished, No Distress, Calm Neck: Yes: Supple, Trachea Midline Cardiovascular: Yes: Regular Rate and Rhythm, S1, S2 Respiratory: Yes: Regular, CTA Bilaterally Gastrointestinal: Yes: Soft, Distention, Tenderness Renal/: Yes: Hematuria. No: CVA Tenderness - Left, CVA Tenderness - Right Musculoskeletal: Yes: WNL Extremities: Yes: WNL Neurological: Yes: Alert, Oriented Psychiatric: Yes: Alert, Oriented Labs: CBC, BMP 01/10/18 12:13 01/10/18 12:13 Assessment/Plan patient with multiple medical problems admitted with hematuria and constipation currently stable c/o abd distension abd distension hematuria lactic acidosis arf plan hydration gi on board will change abx to zosyn monitor lactic acid and hematuria rest as per primary team
[2018-01-11] MEDS: PIPERACILLIN/TAZOB 2.25 GM 2.25 GM in DEXTROSE 5%-WATER - 50 ML IVPB SCH ×2 (13:48→18:23)
--- NOTE | 2018-01-11 14:16 | HP ---
Admitting History and Physical - Admission History of Present Illness: Pt is a 77 y/o male w/ PMH significant for HTN, HLD, diabetes, BPH and bladder tumor. Pt presented to the ER w/ complaints of periumbilical pain and abdominal distensionwhich he describes as a sharp and with an intensity of 8/10 since he woke in the am. Patient states he had a bladder tumor resected approximately one year ago and about 1 week ago had an irrigation of his bladder by his urologist Dr Delgadillo. Patient does have intermittent constipation after being placed on iron recently but stopped approximately 2 weeks ago secondary to the constipation. Patient states last bowel movement was on the morning of admission. In the ER pt had abdominal xray wc showed ileus and ct scan abd wc showed b/l hydroureteronephrosis/assymetric bladder wall thickening/lt perirenal fluid accummulation. Pt also has been having hematuria for the past 2 weeksm - Past Medical History Cardiovascular: Yes: HTN, Hyperlipdemia Renal/: Yes: BPH Heme/Onc: Yes: Other (Bladder tumor) - Past Surgical History Additional Past Surgical History: Bladder tumor resection - Smoking History Smoking history: Former smoker Have you smoked in the past 12 months: No Aproximately how many cigarettes per day: 0 If you are a former smoker, when did you quit?: 1989 - Alcohol/Substance Use Hx Alcohol Use: No Home Medications - Allergies Allergies/Adverse Reactions: Allergies Allergy/AdvReac Type Severity Reaction Status Date / Time No Known Allergies Allergy Verified 01/10/18 10:53 - Home Medications Home Medications: Ambulatory Orders Aspirin [ASA -] 81 mg PO DAILY 06/01/15 Metformin HCl [Glucophage] 1,000 mg PO BID 06/01/15 Metoprolol Succinate [Toprol Xl -] 100 mg PO DAILY 06/01/15 Pantoprazole Sodium [Protonix] 40 mg PO DAILY 06/01/15 Losartan/Hydrochlorothiazide [Losartan-Hctz 100-12.5 mg Tab] 1 tab PO DAILY Silodosin [Rapaflo] 4 mg PO HS 08/10/17 Empagliflozin [Jardiance] 10 mg PO DAILY 08/30/17 Finasteride 5 mg PO HS 08/30/17 Nifedipine ER [Procardia Xl -] 60 mg PO DAILY 01/10/18 Family Disease History - Family Disease History Family History: Unremarkable Review of Systems - Review of Systems Constitutional: reports: Weakness HENT: reports: No Symptoms Neck: reports: No Symptoms Cardiovascular: reports: No Symptoms Respiratory: reports: No Symptoms Gastrointestinal: reports: Abdominal Pain, Bloating, Constipation Genitourinary: reports: Hematuria Physical Examination Vital Signs: Vital Signs Temperature 98.2 F 01/11/18 10:00 Pulse Rate 69 01/11/18 10:00 Respiratory Rate 20 01/11/18 10:00 Blood Pressure 152/82 01/11/18 10:00 O2 Sat by Pulse Oximetry (%) 95 01/10/18 22:27 Constitutional: Yes: Well Nourished HENT: Yes: WNL Neck: Yes: WNL, Supple Cardiovascular: Yes: WNL, Regular Rate and Rhythm Respiratory: Yes: WNL, Regular, CTA Bilaterally Gastrointestinal: Yes: WNL, Normal Bowel Sounds, Soft, Abdomen, Obese Musculoskeletal: Yes: WNL Extremities: Yes: WNL Edema: No Neurological: Yes: WNL, Alert, Oriented ...Motor Strength: WNL Labs: CBC, BMP 01/10/18 12:13 01/10/18 12:13 Problem List - Problems (1) Abdominal pain Assessment/Plan: Due to ileus GI consult Cont relistor Cont IVF Advance diet as tolerated although pt still w/ significant abdominal distension today Code(s): R10.9 - UNSPECIFIED ABDOMINAL PAIN (2) UTI (urinary tract infection) Assessment/Plan: Cont IV zosyn ID consult Cont IVF Monitor lactic acid level Monitor urine culture Code(s): N39.0 - URINARY TRACT INFECTION, SITE NOT SPECIFIED (3) Hematuria Assessment/Plan: Await uro consult Can be due to UTI vs bladder tumor Code(s): R31.9 - HEMATURIA, UNSPECIFIED (4) ARF (acute renal failure) Assessment/Plan: Cont IVF Monitor bun/creatinine May need renal consult if worsens Code(s): N17.9 - ACUTE KIDNEY FAILURE, UNSPECIFIED (5) Hypertension Assessment/Plan: BP stable Cont toprol/nifedipine/HCTZ/cozaar Code(s): I10 - ESSENTIAL (PRIMARY) HYPERTENSION Qualifiers: Hypertension type: other secondary hypertension Qualified Code(s): I15.8 - Other secondary hypertension (6) Diabetes Assessment/Plan: Cont sliding scal w/ coverage Code(s): E11.9 - TYPE 2 DIABETES MELLITUS WITHOUT COMPLICATIONS (7) Anemia Assessment/Plan: Multifactorial Due to chronic dz Code(s): D64.9 - ANEMIA, UNSPECIFIED (8) BPH (benign prostatic hyperplasia) Assessment/Plan: Cont proscar Code(s): N40.0 - BENIGN PROSTATIC HYPERPLASIA WITHOUT LOWER URINRY TRACT SYMP (9) HLD (hyperlipidemia) Code(s): E78.5 - HYPERLIPIDEMIA, UNSPECIFIED
--- NOTE | 2018-01-11 15:09 | PN ---
Progress Note, Physician Chief Complaint: Constipation and abdominal pain History of Present Illness: Patient reports resolved periumbilical pain, no tenderness on palpation. Patient remains constipated with increased abdominal bloating, no flatulence or bowel movement since admission. No nausea, no vomiting. - Current Medication List Current Medications: Active Medications Aspirin (Asa -) 81 mg PO DAILY [facility] Last Admin: 01/11/18 11:44 Dose: 81 mg Finasteride (Proscar -) 5 mg PO HS [facility] Heparin Sodium (Porcine) (Heparin -) 5,000 unit SQ BID [facility] Last Admin: 01/11/18 11:42 Dose: 5,000 unit Hydrochlorothiazide (Hctz -) 12.5 mg PO DAILY [facility] Last Admin: 01/11/18 11:44 Dose: 12.5 mg Dextrose/Sodium Chloride (D5-1/2ns -) 1,000 mls @ 75 mls/hr IV ASDIR [facility] Last Admin: 01/11/18 02:38 Dose: 75 mls/hr Piperacillin Sod/Tazobactam (Sod 2.25 gm/ Dextrose) 50 mls @ 100 mls/hr IVPB Q8H-IV LIT PRN Reason: Protocol Last Admin: 01/11/18 13:48 Dose: 100 mls/hr Insulin Aspart (Novolog Vial Sliding Scale -) 1 vial SQ ACHS [facility] PRN Reason: Protocol Last Admin: 01/11/18 12:23 Dose: 2 units Losartan Potassium (Cozaar -) 100 mg PO DAILY [facility] Last Admin: 01/11/18 11:43 Dose: 100 mg Metformin HCl (Glucophage -) 1,000 mg PO BIDAC [facility] Last Admin: 01/11/18 06:15 Dose: Not Given Methylnaltrexone [place] (Relistor -) 12 mg SQ Q2D@1000 [facility] Last Admin: 01/10/18 22:11 Dose: 12 mg Metoclopramide HCl (Reglan Injection -) 10 mg IVPB Q8H [facility] Last Admin: 01/11/18 12:47 Dose: 10 mg Metoprolol Succinate (Toprol Xl -) 100 mg PO DAILY [facility] Last Admin: 01/11/18 11:44 Dose: 100 mg Morphine Sulfate (Morphine Sulfate) 2 mg IVPUSH Q4H PRN PRN Reason: PAIN LEVEL 6-10 Stop: 01/11/18 23:21 Morphine Sulfate (Morphine Sulfate) 4 mg IM Q6H PRN PRN Reason: pain Nifedipine (Procardia Xl -) 60 mg PO DAILY [facility] Last Admin: 01/11/18 11:43 Dose: 60 mg Non-Formulary Medication (Empagliflozin [Jardiance]) 10 mg PO DAILY [facility] Pantoprazole Sodium (Protonix -) 40 mg PO DAILY [facility] Last Admin: 01/11/18 11:43 Dose: 40 mg - Objective Vital Signs: Vital Signs Temperature 98.9 F 01/11/18 14:42 Pulse Rate 73 01/11/18 14:42 Respiratory Rate 18 01/11/18 14:42 Blood Pressure 137/76 01/11/18 14:42 O2 Sat by Pulse Oximetry (%) 95 01/10/18 22:27 Constitutional: Yes: Well Nourished, No Distress, Calm Eyes: Yes: Conjunctiva Clear HENT: Yes: Atraumatic Neck: Yes: Supple, Trachea Midline. No: Tenderness Cardiovascular: Yes: Regular Rate and Rhythm Respiratory: Yes: Regular, CTA Bilaterally Gastrointestinal: Yes: Distention. No: Tenderness, Tenderness, Epigastrium, Tenderness, Rebound, Vomiting Labs: CBC, BMP 01/10/18 12:13 01/10/18 12:13 Problem List - Problems (1) Abdominal pain Assessment/Plan: associated with bloating and constipation r/o secondary to IBS and Bacterial overgrowth, also with thickened fold of the stomach Recommendations: continue IV Ceftriaxone Relistor fleet enemas IV hydration Code(s): R10.9 - UNSPECIFIED ABDOMINAL PAIN
[2018-01-11] MEDS ORDERED: PT OWN MED DRAWER 7, Y5N ONE (17:44)
[2018-01-11] MEDS: FINASTERIDE 5 MG TABLET (FP) PO SCH (22:40)
[2018-01-12] MEDS: DEXTROSE 5%-0.45% SALINE 1,000 ML IV SCH ×2 (00:30→13:09)
[2018-01-12] MEDS ORDERED: PT OWN MED DRAWER 7, Y5N ONE ×3 (01:34→17:19)
[2018-01-12] MEDS: PIPERACILLIN/TAZOB 2.25 GM 2.25 GM in DEXTROSE 5%-WATER - 50 ML IVPB SCH ×3 (02:17→17:47)
[2018-01-12] MEDS: METOCLOPRAMIDE HCL INJECTION 10 MG/2 ML VIAL IVPB SCH ×3 (05:55→20:45)
[2018-01-12] MEDS: metFORMIN HCL 500 MG TABLET (FP) PO SCH ×2 (06:11→16:18)
[2018-01-12] MEDS: INSULIN SLIDING SCALE (NOVOLOG) 1 VIAL SQ SCH ×4 (06:11→21:05)
[2018-01-12 07:49] LABS: BASO % 0.3 % (0-2.0); EOS % 0.5 % (0-4.5); HEMATOCRIT 32.2 % (35.4-49); HEMOGLOBIN 10.3 GM/dL (11.7-16.9); MEAN CELL VOLUME 61.7 fl (80-96); MEAN PLT VOLUME 9.3 fl (7.5-11.1); MONO % 8.5 % (3.8-10.2); NEUT % 77.7 % (42.8-82.8); PLATELET COUNT 159 K/MM3 (134-434); RBC 5.22 M/mm3 (4.00-5.60); RDW 17.4 % (11.9-15.9); WHITE BLOOD COUNT 8.4 K/mm3 (4.0-10.0)
[2018-01-12 08:04] LABS: ANION GAP 14 (8-16); BLOOD UREA NITROGEN 33 mg/dL (7-18); CALCIUM 8.7 mg/dL (8.5-10.1); CHLORIDE 101 mmol/L (98-107); CO2 25 mmol/L (21-32); CREATININE 1.7 mg/dL (0.7-1.3); GLUCOSE,RANDOM 136 mg/dL (74-106); POTASSIUM 3.4 mmol/L (3.5-5.1); SGOT/AST 22 U/L (15-37); SGPT/ALT 20 U/L (12-78); SODIUM 140 mmol/L (136-145); TOT PROT 7.4 g/dl (6.4-8.2)
[2018-01-12 08:05] LABS: ALK PHOS 98 U/L (45-117)
[2018-01-12 08:13] LABS: MCH 19.8 pg (25.7-33.7)
--- NOTE | 2018-01-12 10:07 | PN ---
Progress Note (short form) - Note Progress Note: UROLOGY NOTE. pt. with umair. hydroureteronephrosis and microhem. umair. cva-t, also h/o tcc of urinary bladder will need cysto. poss. bx. when med. ok.
[2018-01-12] MEDS: NIFEdipine E.R 60 MG TABLET (UD) PO SCH (10:35)
[2018-01-12] MEDS: PANTOPRAZOLE 40 MG TABLET (FP) PO SCH (10:36)
[2018-01-12] MEDS: LOSARTAN POTASSIUM 50 MG TABLET (FP) PO SCH (10:36)
[2018-01-12] MEDS: HYDROCHLOROTHIAZIDE 12.5 MG CAPSULE (FP) PO SCH (10:36)
[2018-01-12] MEDS: ASPIRIN 81 MG CHEWABLE TABLETS PO SCH (10:36)
[2018-01-12] MEDS: Methylnaltrexone Bromide 12 MG/0.6 ML KIT SQ SCH (10:37)
--- NOTE | 2018-01-12 10:37 | CONS ---
DATE OF CONSULTATION: DATE OF DICTATION: 01/12/2018 Patient is a 77-year-old male admitted via the emergency room on January 10, 2018, complaining of periumbilical pain with radiation to the right and left flank areas. The patient states that he awoken in the morning with the pain and has increased in severity as the day went on. Patient also has had a bladder tumor resection 1 year earlier and was to see his urologist, Dr. Delgadillo, this week. The patient denies any fever, chills, cough, shortness of breath, or chest pain. He does complain of intermittent constipation, also has some frequency and dysuria. The patient has no allergies. He is presently on metformin, metoprolol, Protonix, losartan with hydrochlorothiazide, Rapaflo, Jardiance, Proscar, and Procardia. He does have history of diabetes. He denies any previous surgical procedures. He does smoke cigarettes. He denies ethanolism. PHYSICAL EXAMINATION: Vital Signs: In the emergency room revealed a temperature of 97.6, a blood pressure of 124/66, pulse oximetry was 96. Abdomen: Soft. There was epigastric tenderness. There was also mild bilateral CVA tenderness. Extremities: Full range of motion with no cyanosis, clubbing, or edema. Genitalia: Atraumatic. Rectal: His prostate is 3+ and firm. Blood obtained in the emergency department revealed CBC with a white count of 7.4, hemoglobin was 10.2, hematocrit 31.7, platelets were 170. BUN was 35 and creatinine 1.7. Platelets were 166. A chest x-ray was read as normal. The patient's liver enzymes were normal. He had a large amount of blood and negative nitrites. A plain x-ray of the abdomen revealed a bowel gas pattern with mild dilatation of the small and large loops diffusely. This could represent ileus. Patient will go for a CAT scan of his abdomen and pelvis. This was performed on January 10 and revealed bilateral hydroureteronephrosis was noted to the level of the urinary bladder. The bladder wall is asymmetric with wall thickening seen posteriorly, possibly on the basis of neoplastic disease. There was also left perirenal fluid accumulation. This is noted, which also extends into the lesser sac. This finding may be secondary to acute renal obstruction. Gastric wall thickening is noted. It could be on the basis of hypertrophic gastritis. There was also evidence of hepatic cirrhosis, mild splenomegaly, and chronic diverticulosis. The patient presently is afebrile. He still feels abdominal bloating and bilateral flank pain. He denies any nausea or vomiting. His temperature is 98.9, his blood pressure is 137/76, and his repeat blood workup revealed a white count of 7.4, a hemoglobin of 10.2 and hematocrit 31.7. BUN was 35 and creatinine 1.7. Random glucose was 166. Patient is to continue on IV ceftriaxone, to increase p.o. fluids, to strain all his urine. If hydronephrosis continues after a repeat ultrasound, we will recommend cystourethroscopy with bilateral retrograde pyelograms, bilateral laser lithotripsies, and bilateral double-J stents. Will follow with you. Cristina [id number]
[2018-01-12] MEDS: HEPARIN NA (PORCINE) 5,000 UNITS/ML 1ML VIAL SQ SCH ×2 (10:40→21:04)
--- NOTE | 2018-01-12 14:55 | PN ---
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 tolerated liquids - Current Medication List Current Medications: Active Medications Aspirin (Asa -) 81 mg PO DAILY [facility] Last Admin: 01/12/18 10:36 Dose: 81 mg Finasteride (Proscar -) 5 mg PO HS [facility] Last Admin: 01/11/18 22:40 Dose: 5 mg Heparin Sodium (Porcine) (Heparin -) 5,000 unit SQ BID [facility] Last Admin: 01/12/18 10:40 Dose: 5,000 unit Hydrochlorothiazide (Hctz -) 12.5 mg PO DAILY [facility] Last Admin: 01/12/18 10:36 Dose: 12.5 mg Dextrose/Sodium Chloride (D5-1/2ns -) 1,000 mls @ 75 mls/hr IV ASDIR [facility] Last Admin: 01/12/18 13:09 Dose: 75 mls/hr Piperacillin Sod/Tazobactam (Sod 2.25 gm/ Dextrose) 50 mls @ 100 mls/hr IVPB Q8H-IV LIT PRN Reason: Protocol Last Admin: 01/12/18 10:36 Dose: 100 mls/hr Insulin Aspart (Novolog Vial Sliding Scale -) 1 vial SQ ACHS LIT PRN Reason: Protocol Last Admin: 01/12/18 12:36 Dose: 4 units Losartan Potassium (Cozaar -) 100 mg PO DAILY [facility] Last Admin: 01/12/18 10:36 Dose: 100 mg Metformin HCl (Glucophage -) 1,000 mg PO BIDAC [facility] Last Admin: 01/12/18 06:11 Dose: 1,000 mg Methylnaltrexone [place] (Relistor -) 12 mg SQ Q2D@1000 [facility] Last Admin: 01/12/18 10:37 Dose: 12 mg Metoclopramide HCl (Reglan Injection -) 10 mg IVPB Q8H [facility] Last Admin: 01/12/18 13:08 Dose: 10 mg Metoprolol Succinate (Toprol Xl -) 100 mg PO DAILY [facility] Last Admin: 01/12/18 10:36 Dose: 100 mg Morphine Sulfate (Morphine Sulfate) 4 mg IM Q6H PRN PRN Reason: pain Nifedipine (Procardia Xl -) 60 mg PO DAILY [facility] Last Admin: 01/12/18 10:35 Dose: 60 mg Non-Formulary Medication (Empagliflozin [Jardiance]) 10 mg PO DAILY [facility] Pantoprazole Sodium (Protonix -) 40 mg PO DAILY [facility] Last Admin: 01/12/18 10:36 Dose: 40 mg - Objective Vital Signs: Vital Signs Temperature 98.1 F 01/12/18 06:00 Pulse Rate 71 01/12/18 06:00 Respiratory Rate 20 01/12/18 09:00 Blood Pressure 118/70 01/12/18 06:00 O2 Sat by Pulse Oximetry (%) 94 L 01/12/18 09:00 Constitutional: Yes: No Distress, Calm Cardiovascular: Yes: Regular Rate and Rhythm Respiratory: Yes: Regular, CTA Bilaterally Gastrointestinal: Yes: Normal Bowel Sounds, Soft Musculoskeletal: Yes: WNL Extremities: Yes: WNL Neurological: Yes: Alert, Oriented Psychiatric: Yes: Alert, Oriented Labs: CBC, BMP 01/12/18 07:25 01/12/18 07:25 Assessment/Plan patient with multiple medical problems admitted with hematuria and constipation currently stable c/o abd distension abd distension hematuria lactic acidosis arf plan will deescalate abx tomorrow await for patient to start regular diet then can deescalate abx rest continue current mgmt
[2018-01-12] MEDS: FINASTERIDE 5 MG TABLET (FP) PO SCH (21:05)
--- NOTE | 2018-01-12 21:40 | PN ---
Progress Note, Physician - Current Medication List Current Medications: Active Medications Aspirin (Asa -) 81 mg PO DAILY [facility] Last Admin: 01/12/18 10:36 Dose: 81 mg Finasteride (Proscar -) 5 mg PO HS [facility] Last Admin: 01/12/18 21:05 Dose: 5 mg Heparin Sodium (Porcine) (Heparin -) 5,000 unit SQ BID [facility] Last Admin: 01/12/18 21:04 Dose: 5,000 unit Hydrochlorothiazide (Hctz -) 12.5 mg PO DAILY [facility] Last Admin: 01/12/18 10:36 Dose: 12.5 mg Dextrose/Sodium Chloride (D5-1/2ns -) 1,000 mls @ 75 mls/hr IV ASDIR [facility] Last Admin: 01/12/18 13:09 Dose: 75 mls/hr Piperacillin Sod/Tazobactam (Sod 2.25 gm/ Dextrose) 50 mls @ 100 mls/hr IVPB Q8H-IV LIT PRN Reason: Protocol Last Admin: 01/12/18 17:47 Dose: 100 mls/hr Insulin Aspart (Novolog Vial Sliding Scale -) 1 vial SQ ACHS [facility] PRN Reason: Protocol Last Admin: 01/12/18 21:05 Dose: Not Given Losartan Potassium (Cozaar -) 100 mg PO DAILY [facility] Last Admin: 01/12/18 10:36 Dose: 100 mg Metformin HCl (Glucophage -) 1,000 mg PO BIDAC [facility] Last Admin: 01/12/18 16:18 Dose: 1,000 mg Methylnaltrexone [place] (Relistor -) 12 mg SQ Q2D@1000 [facility] Last Admin: 01/12/18 10:37 Dose: 12 mg Metoclopramide HCl (Reglan Injection -) 10 mg IVPB Q8H [facility] Last Admin: 01/12/18 20:45 Dose: 10 mg Metoprolol Succinate (Toprol Xl -) 100 mg PO DAILY [facility] Last Admin: 01/12/18 10:36 Dose: 100 mg Morphine Sulfate (Morphine Sulfate) 4 mg IM Q6H PRN PRN Reason: pain Nifedipine (Procardia Xl -) 60 mg PO DAILY [facility] Last Admin: 01/12/18 10:35 Dose: 60 mg Non-Formulary Medication (Empagliflozin [Jardiance]) 10 mg PO DAILY [facility] Pantoprazole Sodium (Protonix -) 40 mg PO DAILY [facility] Last Admin: 01/12/18 10:36 Dose: 40 mg - Objective Vital Signs: Vital Signs Temperature 98.7 F 01/12/18 18:00 Pulse Rate 77 01/12/18 18:00 Respiratory Rate 20 01/12/18 18:00 Blood Pressure 124/73 01/12/18 18:00 O2 Sat by Pulse Oximetry (%) 94 L 01/12/18 09:00 Constitutional: Yes: Well Nourished Neck: Yes: WNL, Supple Cardiovascular: Yes: WNL, Regular Rate and Rhythm Respiratory: Yes: WNL, Regular, CTA Bilaterally Gastrointestinal: Yes: WNL, Normal Bowel Sounds, Soft Labs: CBC, BMP 01/12/18 07:25 01/12/18 07:25 Problem List - Problems (1) Abdominal pain Assessment/Plan: Due to ileus Improving Pt tolerated full liquid diet Will advance diet and add enema Cont relistor Cont IVF Code(s): R10.9 - UNSPECIFIED ABDOMINAL PAIN (2) UTI (urinary tract infection) Assessment/Plan: Cont IV zosyn Cont IVF Lactic acid level decreased Monitor urine culture Code(s): N39.0 - URINARY TRACT INFECTION, SITE NOT SPECIFIED (3) Hematuria Assessment/Plan: Cystoscopy once final urine cultures are back As per uro Code(s): R31.9 - HEMATURIA, UNSPECIFIED (4) ARF (acute renal failure) Assessment/Plan: Cont IVF Monitor bun/creatinine Code(s): N17.9 - ACUTE KIDNEY FAILURE, UNSPECIFIED (5) Hypertension Assessment/Plan: BP stable Cont toprol/nifedipine/HCTZ/cozaar Code(s): I10 - ESSENTIAL (PRIMARY) HYPERTENSION Qualifiers: Hypertension type: other secondary hypertension Qualified Code(s): I15.8 - Other secondary hypertension (6) Diabetes Assessment/Plan: Cont sliding scal w/ coverage Code(s): E11.9 - TYPE 2 DIABETES MELLITUS WITHOUT COMPLICATIONS (7) Anemia Assessment/Plan: Multifactorial Due to chronic dz Code(s): D64.9 - ANEMIA, UNSPECIFIED (8) BPH (benign prostatic hyperplasia) Assessment/Plan: Cont proscar Code(s): N40.0 - BENIGN PROSTATIC HYPERPLASIA WITHOUT LOWER URINRY TRACT SYMP (9) HLD (hyperlipidemia) Code(s): E78.5 - HYPERLIPIDEMIA, UNSPECIFIED
[2018-01-12] MEDS ORDERED: SODIUM PHOSPHATE/NA BIPHOS 133 ML ENEMA PR ONE (21:45)
[2018-01-12] MEDS: DOCUSATE SODIUM 100 MG CAPSULE (FP) PO SCH (22:17)
[2018-01-12] MEDS: ZOLPIDEM TARTRATE 5 MG TABLET PO PRN (22:17)
[2018-01-12] MEDS: POTASSIUM CHLORIDE TABS 20 MEQ TABLET.ER (FP) PO SCH (22:17)
[2018-01-13] MEDS: PIPERACILLIN/TAZOB 2.25 GM 2.25 GM in DEXTROSE 5%-WATER - 50 ML IVPB SCH ×2 (01:44→10:28)
[2018-01-13] MEDS: DEXTROSE 5%-0.45% SALINE 1,000 ML IV SCH ×2 (01:44→18:54)
[2018-01-13] MEDS: METOCLOPRAMIDE HCL INJECTION 10 MG/2 ML VIAL IVPB SCH ×3 (04:45→21:43)
[2018-01-13] MEDS: INSULIN SLIDING SCALE (NOVOLOG) 1 VIAL SQ SCH ×4 (06:36→21:43)
[2018-01-13] MEDS: metFORMIN HCL 500 MG TABLET (FP) PO SCH ×2 (06:36→17:01)
[2018-01-13] MEDS: DOCUSATE SODIUM 100 MG CAPSULE (FP) PO SCH ×3 (06:36→21:43)
[2018-01-13 07:29] LABS: BASO % 0.4 % (0-2.0); EOS % 0.6 % (0-4.5); HEMOGLOBIN 9.9 GM/dL (11.7-16.9); MCHC 31.9 g/dl (32.0-35.9); MEAN CELL VOLUME 62.2 fl (80-96); MEAN PLT VOLUME 10.2 fl (7.5-11.1); MONO % 8.8 % (3.8-10.2); NEUT % 76.2 % (42.8-82.8); PLATELET COUNT 188 K/MM3 (134-434); RBC 4.99 M/mm3 (4.00-5.60); RDW 17.4 % (11.9-15.9)
[2018-01-13 07:48] LABS: MCH 19.9 pg (25.7-33.7)
[2018-01-13 08:24] LABS: ALBUMIN 3.7 g/dl (3.4-5.0); ALK PHOS 89 U/L (45-117); ANION GAP 13 (8-16); BILIRUBIN,TOTAL 1.1 mg/dL (0.2-1.0); BLOOD UREA NITROGEN 31 mg/dL (7-18); CALCIUM 8.5 mg/dL (8.5-10.1); CHLORIDE 102 mmol/L (98-107); CO2 24 mmol/L (21-32); CREATININE 1.7 mg/dL (0.7-1.3); GLUCOSE,RANDOM 145 mg/dL (74-106); POTASSIUM 4.2 mmol/L (3.5-5.1); SGOT/AST 23 U/L (15-37); SGPT/ALT 18 U/L (12-78); SODIUM 139 mmol/L (136-145)
[2018-01-13] MEDS ORDERED: PT OWN MED DRAWER 7, Y5N ONE ×2 (10:16→13:33)
[2018-01-13] MEDS: ASPIRIN 81 MG CHEWABLE TABLETS PO SCH (10:28)
[2018-01-13] MEDS: HYDROCHLOROTHIAZIDE 12.5 MG CAPSULE (FP) PO SCH (10:28)
[2018-01-13] MEDS: POTASSIUM CHLORIDE TABS 20 MEQ TABLET.ER (FP) PO SCH (10:28)
[2018-01-13] MEDS: LOSARTAN POTASSIUM 50 MG TABLET (FP) PO SCH (10:28)
[2018-01-13] MEDS: HEPARIN NA (PORCINE) 5,000 UNITS/ML 1ML VIAL SQ SCH ×2 (10:28→21:43)
[2018-01-13] MEDS: PANTOPRAZOLE 40 MG TABLET (FP) PO SCH (10:28)
[2018-01-13] MEDS: NIFEdipine E.R 60 MG TABLET (UD) PO SCH (10:28)
[2018-01-13] MEDS ORDERED: MAGNESIUM CITRATE 300 ML BOTTLE PO ONE (13:52)
--- NOTE | 2018-01-13 13:54 | PN ---
GI Progress Note Subjective: abdominal pain is shania,still no bowel movement - Objective Vital Signs: Vital Signs Temperature 99.1 F 01/13/18 06:42 Pulse Rate 67 01/13/18 06:42 Respiratory Rate 20 01/13/18 06:42 Blood Pressure 145/92 01/13/18 06:42 O2 Sat by Pulse Oximetry (%) 96 01/12/18 21:00 Constitutional: Well Nourished Eyes: Yes: Conjunctiva Clear HENT: Yes: Atraumatic Neck: Yes: Supple Cardiovascular: Yes: Regular Rate and Rhythm Respiratory: Yes: CTA Bilaterally ...Palpate: Yes: Soft. No: Firm/Rigid, Guarding, Hepatomegaly, Splenomegaly, Tenderness Labs: CBC, BMP 01/13/18 07:00 01/13/18 07:00 Problem List - Problems (1) Abdominal pain Assessment/Plan: resolved, now with constipation R> relistor daily citroma x1 if no response will need enemas Code(s): R10.9 - UNSPECIFIED ABDOMINAL PAIN
--- NOTE | 2018-01-13 14:38 | PN ---
Progress Note, Physician History of Present Illness: doing well still constipation urine still red but light colored - Current Medication List Current Medications: Active Medications Aspirin (Asa -) 81 mg PO DAILY [facility] Last Admin: 01/13/18 10:28 Dose: 81 mg Docusate Sodium (Colace -) 100 mg PO TID [facility] Last Admin: 01/13/18 13:54 Dose: 100 mg Finasteride (Proscar -) 5 mg PO HS [facility] Last Admin: 01/12/18 21:05 Dose: 5 mg Heparin Sodium (Porcine) (Heparin -) 5,000 unit SQ BID LIT Last Admin: 01/13/18 10:28 Dose: 5,000 unit Hydrochlorothiazide (Hctz -) 12.5 mg PO DAILY [facility] Last Admin: 01/13/18 10:28 Dose: 12.5 mg Dextrose/Sodium Chloride (D5-1/2ns -) 1,000 mls @ 75 mls/hr IV ASDIR [facility] Last Admin: 01/13/18 01:44 Dose: 75 mls/hr Piperacillin Sod/Tazobactam (Sod 2.25 gm/ Dextrose) 50 mls @ 100 mls/hr IVPB Q8H-IV LIT PRN Reason: Protocol Last Admin: 01/13/18 10:28 Dose: 100 mls/hr Insulin Aspart (Novolog Vial Sliding Scale -) 1 vial SQ ACHS LIT PRN Reason: Protocol Last Admin: 01/13/18 12:20 Dose: 2 units Losartan Potassium (Cozaar -) 100 mg PO DAILY [facility] Last Admin: 01/13/18 10:28 Dose: 100 mg Magnesium Citrate (Citroma -) 300 ml PO ONCE ONE Stop: 01/13/18 13:53 Metformin HCl (Glucophage -) 1,000 mg PO BIDAC [facility] Last Admin: 01/13/18 06:36 Dose: 1,000 mg Methylnaltrexone [place] (Relistor -) 12 mg SQ DAILY LIT Metoclopramide HCl (Reglan Injection -) 10 mg IVPB Q8H [facility] Last Admin: 01/13/18 13:54 Dose: 10 mg Metoprolol Succinate (Toprol Xl -) 100 mg PO DAILY [facility] Last Admin: 01/13/18 10:28 Dose: 100 mg Morphine Sulfate (Morphine Sulfate) 4 mg IM Q6H PRN PRN Reason: pain Last Admin: 01/13/18 04:43 Dose: 4 mg Nifedipine (Procardia Xl -) 60 mg PO DAILY [facility] Last Admin: 01/13/18 10:28 Dose: 60 mg Non-Formulary Medication (Empagliflozin [Jardiance]) 10 mg PO DAILY [facility] Pantoprazole Sodium (Protonix -) 40 mg PO DAILY [facility] Last Admin: 01/13/18 10:28 Dose: 40 mg Potassium Chloride (K-Dur -) 40 meq PO DAILY [facility] Last Admin: 01/13/18 10:28 Dose: 40 meq Zolpidem Tartrate (Ambien -) 5 mg PO HS PRN PRN Reason: INSOMNIA Last Admin: 01/12/18 22:17 Dose: 5 mg - Objective Vital Signs: Vital Signs Temperature 99.1 F 01/13/18 06:42 Pulse Rate 67 01/13/18 06:42 Respiratory Rate 20 01/13/18 06:42 Blood Pressure 145/92 01/13/18 06:42 O2 Sat by Pulse Oximetry (%) 96 01/12/18 21:00 Constitutional: Yes: No Distress, Calm Cardiovascular: Yes: S1, S2 Respiratory: Yes: Regular, CTA Bilaterally Gastrointestinal: Yes: Soft, Distention Musculoskeletal: Yes: WNL Extremities: Yes: WNL Neurological: Yes: Alert, Oriented Psychiatric: Yes: Alert, Oriented Labs: CBC, BMP 01/13/18 07:00 01/13/18 07:00 Assessment/Plan patient with multiple medical problems admitted with hematuria and constipation currently stable c/o abd distension abd distension hematuria lactic acidosis arf plan will stop abx and monitor rest continue current mgmt gi on case
[2018-01-13] MEDS: ZOLPIDEM TARTRATE 5 MG TABLET PO PRN (21:43)
[2018-01-13] MEDS: FINASTERIDE 5 MG TABLET (FP) PO SCH (21:43)
--- NOTE | 2018-01-14 00:54 | PN ---
Progress Note, Physician History of Present Illness: no new complaints - Current Medication List Current Medications: Active Medications Aspirin (Asa -) 81 mg PO DAILY [facility] Last Admin: 01/13/18 10:28 Dose: 81 mg Docusate Sodium (Colace -) 100 mg PO TID [facility] Last Admin: 01/13/18 21:43 Dose: 100 mg Finasteride (Proscar -) 5 mg PO HS [facility] Last Admin: 01/13/18 21:43 Dose: 5 mg Heparin Sodium (Porcine) (Heparin -) 5,000 unit SQ BID LIT Last Admin: 01/13/18 21:43 Dose: 5,000 unit Hydrochlorothiazide (Hctz -) 12.5 mg PO DAILY [facility] Last Admin: 01/13/18 10:28 Dose: 12.5 mg Dextrose/Sodium Chloride (D5-1/2ns -) 1,000 mls @ 75 mls/hr IV ASDIR [facility] Last Admin: 01/13/18 18:54 Dose: 75 mls/hr Insulin Aspart (Novolog Vial Sliding Scale -) 1 vial SQ ACHS [facility] PRN Reason: Protocol Last Admin: 01/13/18 21:43 Dose: Not Given Losartan Potassium (Cozaar -) 100 mg PO DAILY [facility] Last Admin: 01/13/18 10:28 Dose: 100 mg Metformin HCl (Glucophage -) 1,000 mg PO BIDAC [facility] Last Admin: 01/13/18 17:01 Dose: 1,000 mg Methylnaltrexone [place] (Relistor -) 12 mg SQ DAILY [facility] Metoclopramide HCl (Reglan Injection -) 10 mg IVPB Q8H [facility] Last Admin: 01/13/18 21:43 Dose: 10 mg Metoprolol Succinate (Toprol Xl -) 100 mg PO DAILY [facility] Last Admin: 01/13/18 10:28 Dose: 100 mg Nifedipine (Procardia Xl -) 60 mg PO DAILY [facility] Last Admin: 01/13/18 10:28 Dose: 60 mg Non-Formulary Medication (Empagliflozin [Jardiance]) 10 mg PO DAILY [facility] Pantoprazole Sodium (Protonix -) 40 mg PO DAILY [facility] Last Admin: 01/13/18 10:28 Dose: 40 mg Potassium Chloride (K-Dur -) 40 meq PO DAILY [facility] Last Admin: 01/13/18 10:28 Dose: 40 meq Zolpidem Tartrate (Ambien -) 5 mg PO HS PRN PRN Reason: INSOMNIA Last Admin: 01/13/18 21:43 Dose: 5 mg - Objective Vital Signs: Vital Signs Temperature 98.2 F 01/13/18 19:00 Pulse Rate 75 01/13/18 19:00 Respiratory Rate 20 01/13/18 19:00 Blood Pressure 121/77 01/13/18 19:00 O2 Sat by Pulse Oximetry (%) 98 01/13/18 21:00 Constitutional: Yes: No Distress Cardiovascular: Yes: Regular Rate and Rhythm Respiratory: Yes: Regular, CTA Bilaterally Labs: CBC, BMP 01/13/18 07:00 01/13/18 07:00 Problem List - Problems (1) Abdominal pain Code(s): R10.9 - UNSPECIFIED ABDOMINAL PAIN (2) UTI (urinary tract infection) Code(s): N39.0 - URINARY TRACT INFECTION, SITE NOT SPECIFIED (3) Hematuria Code(s): R31.9 - HEMATURIA, UNSPECIFIED Qualifiers: Hematuria type: gross Qualified Code(s): R31.0 - Gross hematuria (4) ARF (acute renal failure) Code(s): N17.9 - ACUTE KIDNEY FAILURE, UNSPECIFIED (5) Hypertension Code(s): I10 - ESSENTIAL (PRIMARY) HYPERTENSION Qualifiers: Hypertension type: other secondary hypertension Qualified Code(s): I15.8 - Other secondary hypertension (6) Diabetes Code(s): E11.9 - TYPE 2 DIABETES MELLITUS WITHOUT COMPLICATIONS (7) Anemia Code(s): D64.9 - ANEMIA, UNSPECIFIED (8) BPH (benign prostatic hyperplasia) Code(s): N40.0 - BENIGN PROSTATIC HYPERPLASIA WITHOUT LOWER URINRY TRACT SYMP (9) HLD (hyperlipidemia) Code(s): E78.5 - HYPERLIPIDEMIA, UNSPECIFIED Assessment/Plan (1) Abdominal pain Assessment/Plan: Due to ileus Improving Pt tolerating full liquid diet Will advance diet as tolerated and add enema Cont relistor Cont IVF Code(s): R10.9 - UNSPECIFIED ABDOMINAL PAIN (2) UTI (urinary tract infection) Assessment/Plan: Cont IV zosyn Cont IVF Lactic acid level decreased Monitor urine culture Code(s): N39.0 - URINARY TRACT INFECTION, SITE NOT SPECIFIED (3) Hematuria Assessment/Plan: As per uro Code(s): R31.9 - HEMATURIA, UNSPECIFIED (4) ARF (acute renal failure) Assessment/Plan: Cont IVF Monitor bun/creatinine Code(s): N17.9 - ACUTE KIDNEY FAILURE, UNSPECIFIED (5) Hypertension Assessment/Plan: BP stable Cont toprol/nifedipine/HCTZ/cozaar Code(s): I10 - ESSENTIAL (PRIMARY) HYPERTENSION Qualifiers: Hypertension type: other secondary hypertension Qualified Code(s): I15.8 - Other secondary hypertension (6) Diabetes Assessment/Plan: Cont sliding scal w/ coverage Code(s): E11.9 - TYPE 2 DIABETES MELLITUS WITHOUT COMPLICATIONS (7) Anemia Assessment/Plan: Multifactorial Due to chronic dz Code(s): D64.9 - ANEMIA, UNSPECIFIED (8) BPH (benign prostatic hyperplasia) Assessment/Plan: Cont proscar Code(s): N40.0 - BENIGN PROSTATIC HYPERPLASIA WITHOUT LOWER URINRY TRACT SYMP (9) HLD (hyperlipidemia) Code(s): E78.5 - HYPERLIPIDEMIA, UNSPECIFIED
[2018-01-14] MEDS: DEXTROSE 5%-0.45% SALINE 1,000 ML IV SCH (06:07)
[2018-01-14] MEDS: INSULIN SLIDING SCALE (NOVOLOG) 1 VIAL SQ SCH ×4 (06:08→21:27)
[2018-01-14] MEDS: METOCLOPRAMIDE HCL INJECTION 10 MG/2 ML VIAL IVPB SCH ×3 (06:08→21:27)
[2018-01-14] MEDS: DOCUSATE SODIUM 100 MG CAPSULE (FP) PO SCH ×3 (06:08→21:27)
[2018-01-14] MEDS: metFORMIN HCL 500 MG TABLET (FP) PO SCH ×2 (06:08→17:41)
[2018-01-14] MEDS ORDERED: PT OWN MED DRAWER 7, Y5N ONE ×2 (09:10→13:53)
[2018-01-14] MEDS: POTASSIUM CHLORIDE TABS 20 MEQ TABLET.ER (FP) PO SCH (09:19)
[2018-01-14] MEDS: HYDROCHLOROTHIAZIDE 12.5 MG CAPSULE (FP) PO SCH (09:20)
[2018-01-14] MEDS: PANTOPRAZOLE 40 MG TABLET (FP) PO SCH (09:20)
[2018-01-14] MEDS: HEPARIN NA (PORCINE) 5,000 UNITS/ML 1ML VIAL SQ SCH (09:20)
[2018-01-14] MEDS: NIFEdipine E.R 60 MG TABLET (UD) PO SCH (09:20)
[2018-01-14] MEDS: ASPIRIN 81 MG CHEWABLE TABLETS PO SCH (09:20)
[2018-01-14] MEDS: LOSARTAN POTASSIUM 50 MG TABLET (FP) PO SCH (09:20)
[2018-01-14] MEDS: Methylnaltrexone Bromide 12 MG/0.6 ML KIT SQ SCH (09:21)
--- NOTE | 2018-01-14 15:43 | PN ---
Progress Note, Physician History of Present Illness: Pt seen and examined. Events noted, notes and labs reviewed. Has had BMs , No abd pain. Remains afebrile, less hematuria. - Current Medication List Current Medications: Active Medications Aspirin (Asa -) 81 mg PO DAILY [facility] Last Admin: 01/14/18 09:20 Dose: Not Given Docusate Sodium (Colace -) 100 mg PO TID [facility] Last Admin: 01/14/18 06:08 Dose: 100 mg Finasteride (Proscar -) 5 mg PO HS [facility] Last Admin: 01/13/18 21:43 Dose: 5 mg Heparin Sodium (Porcine) (Heparin -) 5,000 unit SQ BID [facility] Last Admin: 01/14/18 09:20 Dose: Not Given Hydrochlorothiazide (Hctz -) 12.5 mg PO DAILY [facility] Last Admin: 01/14/18 09:20 Dose: 12.5 mg Dextrose/Sodium Chloride (D5-1/2ns -) 1,000 mls @ 75 mls/hr IV ASDIR [facility] Last Admin: 01/14/18 06:07 Dose: 75 mls/hr Insulin Aspart (Novolog Vial Sliding Scale -) 1 vial SQ ACHS [facility] PRN Reason: Protocol Last Admin: 01/14/18 12:28 Dose: 2 units Losartan Potassium (Cozaar -) 100 mg PO DAILY [facility] Last Admin: 01/14/18 09:20 Dose: 100 mg Metformin HCl (Glucophage -) 1,000 mg PO BIDAC [facility] Last Admin: 01/14/18 06:08 Dose: 1,000 mg Methylnaltrexone [place] (Relistor -) 12 mg SQ DAILY [facility] Last Admin: 01/14/18 09:21 Dose: 12 mg Metoclopramide HCl (Reglan Injection -) 10 mg IVPB Q8H [facility] Last Admin: 01/14/18 06:08 Dose: 10 mg Metoprolol Succinate (Toprol Xl -) 100 mg PO DAILY [facility] Last Admin: 01/14/18 09:20 Dose: 100 mg Morphine Sulfate (Morphine Sulfate) 4 mg IVPUSH Q6H PRN PRN Reason: PAIN SCALE 6-10 Nifedipine (Procardia Xl -) 60 mg PO DAILY [facility] Last Admin: 01/14/18 09:20 Dose: 60 mg Non-Formulary Medication (Empagliflozin [Jardiance]) 10 mg PO DAILY [facility] Pantoprazole Sodium (Protonix -) 40 mg PO DAILY [facility] Last Admin: 01/14/18 09:20 Dose: 40 mg Potassium Chloride (K-Dur -) 40 meq PO DAILY [facility] Last Admin: 01/14/18 09:19 Dose: 40 meq Zolpidem Tartrate (Ambien -) 5 mg PO HS PRN PRN Reason: INSOMNIA Last Admin: 01/13/18 21:43 Dose: 5 mg - Objective Vital Signs: Vital Signs Temperature 98.4 F 01/14/18 14:20 Pulse Rate 82 01/14/18 14:20 Respiratory Rate 22 01/14/18 14:20 Blood Pressure 126/74 01/14/18 14:20 O2 Sat by Pulse Oximetry (%) 98 01/13/18 21:00 Constitutional: Yes: No Distress, Calm Cardiovascular: Yes: Regular Rate and Rhythm Respiratory: Yes: Regular Gastrointestinal: Yes: Normal Bowel Sounds, Soft, Distention Musculoskeletal: Yes: WNL Extremities: Yes: WNL Neurological: Yes: Alert, Oriented Labs: CBC, BMP 01/13/18 07:00 01/13/18 07:00 Problem List - Problems (1) BPH (benign prostatic hyperplasia) Code(s): N40.0 - BENIGN PROSTATIC HYPERPLASIA WITHOUT LOWER URINRY TRACT SYMP (2) Diabetes Code(s): E11.9 - TYPE 2 DIABETES MELLITUS WITHOUT COMPLICATIONS (3) HLD (hyperlipidemia) Code(s): E78.5 - HYPERLIPIDEMIA, UNSPECIFIED (4) Hematuria Code(s): R31.9 - HEMATURIA, UNSPECIFIED (5) Lightheaded Code(s): R42 - DIZZINESS AND GIDDINESS Assessment/Plan 77 y.o. male with PMH of resected bladder tumor presented with periumbilical pain and hematuria along with lactic acidosis, constipation and abd distension Urine cultures negative, pt without fever or leukocytosis -- continue monitor off antibiotics -- GI following
--- NOTE | 2018-01-14 20:05 | PN ---
Progress Note, Physician History of Present Illness: no new complaints - Current Medication List Current Medications: Active Medications Docusate Sodium (Colace -) 100 mg PO TID [facility] Last Admin: 01/14/18 16:00 Dose: Not Given Finasteride (Proscar -) 5 mg PO HS [facility] Last Admin: 01/13/18 21:43 Dose: 5 mg Hydrochlorothiazide (Hctz -) 12.5 mg PO DAILY [facility] Last Admin: 01/14/18 09:20 Dose: 12.5 mg Dextrose/Sodium Chloride (D5-1/2ns -) 1,000 mls @ 75 mls/hr IV ASDIR [facility] Last Admin: 01/14/18 06:07 Dose: 75 mls/hr Insulin Aspart (Novolog Vial Sliding Scale -) 1 vial SQ ACHS [facility] PRN Reason: Protocol Last Admin: 01/14/18 17:09 Dose: Not Given Losartan Potassium (Cozaar -) 100 mg PO DAILY [facility] [place] Last Admin: 01/14/18 09:20 Dose: 100 mg Metformin HCl (Glucophage -) 1,000 mg PO BIDAC [facility] Last Admin: 01/14/18 17:41 Dose: 1,000 mg Methylnaltrexone [place] (Relistor -) 12 mg SQ DAILY [facility] Last Admin: 01/14/18 09:21 Dose: 12 mg Metoclopramide HCl (Reglan Injection -) 10 mg IVPB Q8H [facility] [place] Last Admin: 01/14/18 16:00 Dose: 10 mg Metoprolol Succinate (Toprol Xl -) 100 mg PO DAILY [facility] [place] Last Admin: 01/14/18 09:20 Dose: 100 mg Morphine Sulfate (Morphine Sulfate) 4 mg IVPUSH Q6H PRN PRN Reason: PAIN SCALE 6-10 Nifedipine (Procardia Xl -) 60 mg PO DAILY [facility] [place] Last Admin: 01/14/18 09:20 Dose: 60 mg Non-Formulary Medication (Empagliflozin [Jardiance]) 10 mg PO DAILY [facility] Pantoprazole Sodium (Protonix -) 40 mg PO DAILY [facility] Last Admin: 01/14/18 09:20 Dose: 40 mg Potassium Chloride (K-Dur -) 40 meq PO DAILY [facility] Last Admin: 01/14/18 09:19 Dose: 40 meq Zolpidem Tartrate (Ambien -) 5 mg PO HS PRN PRN Reason: INSOMNIA Last Admin: 01/13/18 21:43 Dose: 5 mg - Objective Vital Signs: Vital Signs Temperature 98.1 F 01/14/18 18:00 Pulse Rate 77 01/14/18 18:00 Respiratory Rate 20 01/14/18 18:00 Blood Pressure 116/73 01/14/18 18:00 O2 Sat by Pulse Oximetry (%) 98 01/14/18 10:00 Constitutional: Yes: No Distress Cardiovascular: Yes: Regular Rate and Rhythm Respiratory: Yes: Regular, CTA Bilaterally Labs: CBC, BMP 01/13/18 07:00 01/13/18 07:00 Problem List - Problems (1) Abdominal pain Code(s): R10.9 - UNSPECIFIED ABDOMINAL PAIN (2) UTI (urinary tract infection) Code(s): N39.0 - URINARY TRACT INFECTION, SITE NOT SPECIFIED (3) Hematuria Code(s): R31.9 - HEMATURIA, UNSPECIFIED Qualifiers: Hematuria type: gross Qualified Code(s): R31.0 - Gross hematuria (4) ARF (acute renal failure) Code(s): N17.9 - ACUTE KIDNEY FAILURE, UNSPECIFIED (5) Hypertension Code(s): I10 - ESSENTIAL (PRIMARY) HYPERTENSION Qualifiers: Hypertension type: other secondary hypertension Qualified Code(s): I15.8 - Other secondary hypertension (6) Diabetes Code(s): E11.9 - TYPE 2 DIABETES MELLITUS WITHOUT COMPLICATIONS (7) Anemia Code(s): D64.9 - ANEMIA, UNSPECIFIED (8) BPH (benign prostatic hyperplasia) Code(s): N40.0 - BENIGN PROSTATIC HYPERPLASIA WITHOUT LOWER URINRY TRACT SYMP (9) HLD (hyperlipidemia) Code(s): E78.5 - HYPERLIPIDEMIA, UNSPECIFIED Assessment/Plan (1) Abdominal pain Assessment/Plan: Due to ileus Improving Pt tolerating full liquid diet Will advance diet as tolerated and add enema Cont relistor Cont IVF Code(s): R10.9 - UNSPECIFIED ABDOMINAL PAIN (2) UTI (urinary tract infection) Assessment/Plan: Cont IV zosyn Cont IVF Lactic acid level decreased Monitor urine culture Code(s): N39.0 - URINARY TRACT INFECTION, SITE NOT SPECIFIED (3) Hematuria Assessment/Plan: As per uro Code(s): R31.9 - HEMATURIA, UNSPECIFIED (4) ARF (acute renal failure) Assessment/Plan: Cont IVF Monitor bun/creatinine Code(s): N17.9 - ACUTE KIDNEY FAILURE, UNSPECIFIED (5) Hypertension Assessment/Plan: BP stable Cont toprol/nifedipine/HCTZ/cozaar Code(s): I10 - ESSENTIAL (PRIMARY) HYPERTENSION Qualifiers: Hypertension type: other secondary hypertension Qualified Code(s): I15.8 - Other secondary hypertension (6) Diabetes Assessment/Plan: Cont sliding scal w/ coverage Code(s): E11.9 - TYPE 2 DIABETES MELLITUS WITHOUT COMPLICATIONS (7) Anemia Assessment/Plan: Multifactorial Due to chronic dz Code(s): D64.9 - ANEMIA, UNSPECIFIED (8) BPH (benign prostatic hyperplasia) Assessment/Plan: Cont proscar Code(s): N40.0 - BENIGN PROSTATIC HYPERPLASIA WITHOUT LOWER URINRY TRACT SYMP (9) HLD (hyperlipidemia) Code(s): E78.5 - HYPERLIPIDEMIA, UNSPECIFIED
[2018-01-14] MEDS: FINASTERIDE 5 MG TABLET (FP) PO SCH (21:27)
[2018-01-14] MEDS: ZOLPIDEM TARTRATE 5 MG TABLET PO PRN (21:27)
[2018-01-14] MEDS: morphine SULFATE 4 MG/ML VIAL IVPUSH PRN (21:28)
[2018-01-15] MEDS: DEXTROSE 5%-0.45% SALINE 1,000 ML IV SCH ×2 (03:17→16:55)
[2018-01-15] MEDS: morphine SULFATE 4 MG/ML VIAL IVPUSH PRN ×3 (03:18→19:17)
[2018-01-15] MEDS: metFORMIN HCL 500 MG TABLET (FP) PO SCH ×2 (06:45→17:54)
[2018-01-15] MEDS: METOCLOPRAMIDE HCL INJECTION 10 MG/2 ML VIAL IVPB SCH ×3 (06:45→22:35)
[2018-01-15] MEDS: DOCUSATE SODIUM 100 MG CAPSULE (FP) PO SCH ×3 (06:45→22:36)
[2018-01-15] MEDS: INSULIN SLIDING SCALE (NOVOLOG) 1 VIAL SQ SCH ×4 (06:46→22:36)
[2018-01-15] MEDS ORDERED: PT OWN MED DRAWER 7, Y5N ONE (10:44)
[2018-01-15] MEDS: NIFEdipine E.R 60 MG TABLET (UD) PO SCH (10:53)
[2018-01-15] MEDS: HYDROCHLOROTHIAZIDE 12.5 MG CAPSULE (FP) PO SCH (10:53)
[2018-01-15] MEDS: POTASSIUM CHLORIDE TABS 20 MEQ TABLET.ER (FP) PO SCH (10:53)
[2018-01-15] MEDS: LOSARTAN POTASSIUM 50 MG TABLET (FP) PO SCH (10:53)
[2018-01-15] MEDS: PANTOPRAZOLE 40 MG TABLET (FP) PO SCH (10:53)
[2018-01-15] MEDS: Methylnaltrexone Bromide 12 MG/0.6 ML KIT SQ SCH (10:54)
--- NOTE | 2018-01-15 13:23 | PN ---
Progress Note, Physician History of Present Illness: Pt feels better today. Sitting up, eating lunch. No BMs today so far but no abd pain. Urine remains pink but denies dysuria, fever, chills. - Current Medication List Current Medications: Active Medications Acetaminophen (Tylenol -) 650 mg PO Q6H PRN PRN Reason: PAIN SCALE 6-10 Docusate Sodium (Colace -) 100 mg PO TID [facility] Last Admin: 01/15/18 06:45 Dose: 100 mg Finasteride (Proscar -) 5 mg PO HS [facility] Last Admin: 01/14/18 21:27 Dose: 5 mg Hydrochlorothiazide (Hctz -) 12.5 mg PO DAILY [facility] Last Admin: 01/15/18 10:53 Dose: 12.5 mg Dextrose/Sodium Chloride (D5-1/2ns -) 1,000 mls @ 75 mls/hr IV ASDIR [facility] Last Admin: 01/15/18 03:17 Dose: 75 mls/hr Insulin Aspart (Novolog Vial Sliding Scale -) 1 vial SQ ACHS [facility] PRN Reason: Protocol Last Admin: 01/15/18 11:53 Dose: Not Given Losartan Potassium (Cozaar -) 100 mg PO DAILY [facility] Last Admin: 01/15/18 10:53 Dose: 100 mg Metformin HCl (Glucophage -) 1,000 mg PO BIDAC [facility] Last Admin: 01/15/18 06:45 Dose: 1,000 mg Methylnaltrexone [place] (Relistor -) 12 mg SQ DAILY [facility] Last Admin: 01/15/18 10:54 Dose: 12 mg Metoclopramide HCl (Reglan Injection -) 10 mg IVPB Q8H [facility] Last Admin: 01/15/18 13:02 Dose: 10 mg Metoprolol Succinate (Toprol Xl -) 100 mg PO DAILY [facility] Last Admin: 01/15/18 10:54 Dose: 100 mg Morphine Sulfate (Morphine Sulfate) 4 mg IVPUSH Q6H PRN PRN Reason: PAIN SCALE 6-10 Last Admin: 01/15/18 10:48 Dose: 4 mg Nifedipine (Procardia Xl -) 60 mg PO DAILY [facility] Last Admin: 01/15/18 10:53 Dose: 60 mg Non-Formulary Medication (Empagliflozin [Jardiance]) 10 mg PO DAILY [facility] Pantoprazole Sodium (Protonix -) 40 mg PO DAILY [facility] Last Admin: 01/15/18 10:53 Dose: 40 mg Potassium Chloride (K-Dur -) 40 meq PO DAILY [facility] Last Admin: 01/15/18 10:53 Dose: 40 meq Zolpidem Tartrate (Ambien -) 5 mg PO HS PRN PRN Reason: INSOMNIA Last Admin: 01/14/18 21:27 Dose: 5 mg - Objective Vital Signs: Vital Signs Temperature 97.5 F L 01/15/18 10:45 Pulse Rate 83 01/15/18 10:45 Respiratory Rate 20 01/15/18 10:45 Blood Pressure 148/89 01/15/18 10:45 O2 Sat by Pulse Oximetry (%) 98 01/14/18 21:00 Constitutional: Yes: No Distress, Calm Cardiovascular: Yes: Regular Rate and Rhythm Respiratory: Yes: CTA Bilaterally Gastrointestinal: Yes: Normal Bowel Sounds, Soft, Distention Genitourinary: Yes: Hematuria Extremities: Yes: WNL Neurological: Yes: Alert, Oriented Labs: CBC, BMP 01/13/18 07:00 01/13/18 07:00 Problem List - Problems (1) BPH (benign prostatic hyperplasia) Code(s): N40.0 - BENIGN PROSTATIC HYPERPLASIA WITHOUT LOWER URINRY TRACT SYMP (2) Diabetes Code(s): E11.9 - TYPE 2 DIABETES MELLITUS WITHOUT COMPLICATIONS (3) HLD (hyperlipidemia) Code(s): E78.5 - HYPERLIPIDEMIA, UNSPECIFIED (4) Hematuria Code(s): R31.9 - HEMATURIA, UNSPECIFIED (5) Lightheaded Code(s): R42 - DIZZINESS AND GIDDINESS Assessment/Plan 77 y.o. male with PMH of resected bladder tumor presenting with periumbilical pain and hematuria, lactic acidosis, constipation and abd distension -- reports mild hematuria still, but no obvious symptoms of urinary infection -- remains afebrile -- continue monitor off antibiotics -- GI followup
[2018-01-15] MEDS: ACETAMINOPHEN 325 MG TABLET (FP) PO PRN (22:35)
[2018-01-15] MEDS: FINASTERIDE 5 MG TABLET (FP) PO SCH (22:36)
--- NOTE | 2018-01-15 23:49 | PN ---
Progress Note, Physician History of Present Illness: Pt still having pain wc seems to be more lt flank Pt tolerating diet Pt still w/ gross hematuria - Current Medication List Current Medications: Active Medications Acetaminophen (Tylenol -) 650 mg PO Q6H PRN PRN Reason: PAIN SCALE 6-10 Last Admin: 01/15/18 22:35 Dose: 650 mg Docusate Sodium (Colace -) 100 mg PO TID [facility] Last Admin: 01/15/18 22:36 Dose: 100 mg Finasteride (Proscar -) 5 mg PO HS [facility] Last Admin: 01/15/18 22:36 Dose: 5 mg Hydrochlorothiazide (Hctz -) 12.5 mg PO DAILY [facility] Last Admin: 01/15/18 10:53 Dose: 12.5 mg Dextrose/Sodium Chloride (D5-1/2ns -) 1,000 mls @ 75 mls/hr IV ASDIR [facility] Last Admin: 01/15/18 16:55 Dose: 75 mls/hr Insulin Aspart (Novolog Vial Sliding Scale -) 1 vial SQ ACHS [facility] PRN Reason: Protocol Last Admin: 01/15/18 22:36 Dose: 2 units Losartan Potassium (Cozaar -) 100 mg PO DAILY [facility] Last Admin: 01/15/18 10:53 Dose: 100 mg Metformin HCl (Glucophage -) 1,000 mg PO BIDAC [facility] Last Admin: 01/15/18 17:54 Dose: 1,000 mg Methylnaltrexone [place] (Relistor -) 12 mg SQ DAILY [facility] Last Admin: 01/15/18 10:54 Dose: 12 mg Metoclopramide HCl (Reglan Injection -) 10 mg IVPB Q8H [facility] Last Admin: 01/15/18 22:35 Dose: 10 mg Metoprolol Succinate (Toprol Xl -) 100 mg PO DAILY [facility] Last Admin: 01/15/18 10:54 Dose: 100 mg Morphine Sulfate (Morphine Sulfate) 4 mg IVPUSH Q6H PRN PRN Reason: PAIN SCALE 6-10 Last Admin: 01/15/18 19:17 Dose: 4 mg Nifedipine (Procardia Xl -) 60 mg PO DAILY [facility] Last Admin: 01/15/18 10:53 Dose: 60 mg Non-Formulary Medication (Empagliflozin [Jardiance]) 10 mg PO DAILY [facility] Pantoprazole Sodium (Protonix -) 40 mg PO DAILY [facility] Last Admin: 01/15/18 10:53 Dose: 40 mg Potassium Chloride (K-Dur -) 40 meq PO DAILY [facility] Last Admin: 01/15/18 10:53 Dose: 40 meq - Objective Vital Signs: Vital Signs Temperature 97.7 F 01/15/18 18:00 Pulse Rate 87 01/15/18 18:00 Respiratory Rate 20 01/15/18 18:00 Blood Pressure 140/85 01/15/18 18:00 O2 Sat by Pulse Oximetry (%) 96 01/15/18 21:00 Constitutional: Yes: Well Nourished Neck: Yes: WNL, Supple Cardiovascular: Yes: WNL, Regular Rate and Rhythm Respiratory: Yes: WNL, Regular, CTA Bilaterally Gastrointestinal: Yes: WNL, Normal Bowel Sounds, Soft Labs: CBC, BMP 01/13/18 07:00 01/13/18 07:00 Problem List - Problems (1) Abdominal pain Assessment/Plan: Due to ileus Improving Awaiting uro consult Cont relistor/colace Cont IVF Code(s): R10.9 - UNSPECIFIED ABDOMINAL PAIN (2) UTI (urinary tract infection) Assessment/Plan: Urine culture have been enagtive IV antibiotics were stopped Code(s): N39.0 - URINARY TRACT INFECTION, SITE NOT SPECIFIED (3) Hematuria Assessment/Plan: Cystoscopy once final urine cultures are back As per uro Code(s): R31.9 - HEMATURIA, UNSPECIFIED (4) ARF (acute renal failure) Code(s): N17.9 - ACUTE KIDNEY FAILURE, UNSPECIFIED (5) Hypertension Code(s): I10 - ESSENTIAL (PRIMARY) HYPERTENSION Qualifiers: Hypertension type: other secondary hypertension Qualified Code(s): I15.8 - Other secondary hypertension (6) Diabetes Code(s): E11.9 - TYPE 2 DIABETES MELLITUS WITHOUT COMPLICATIONS (7) Anemia Code(s): D64.9 - ANEMIA, UNSPECIFIED (8) BPH (benign prostatic hyperplasia) Code(s): N40.0 - BENIGN PROSTATIC HYPERPLASIA WITHOUT LOWER URINRY TRACT SYMP (9) HLD (hyperlipidemia) Code(s): E78.5 - HYPERLIPIDEMIA, UNSPECIFIED
[2018-01-16] MEDS: DEXTROSE 5%-0.45% SALINE 1,000 ML IV SCH (06:29)
[2018-01-16] MEDS: METOCLOPRAMIDE HCL INJECTION 10 MG/2 ML VIAL IVPB SCH ×3 (06:35→21:02)
[2018-01-16] MEDS: metFORMIN HCL 500 MG TABLET (FP) PO SCH (06:35)
[2018-01-16] MEDS: DOCUSATE SODIUM 100 MG CAPSULE (FP) PO SCH ×3 (06:35→21:02)
[2018-01-16] MEDS: INSULIN SLIDING SCALE (NOVOLOG) 1 VIAL SQ SCH ×4 (06:36→21:58)
[2018-01-16 07:29] LABS: BASO % 0.1 % (0-2.0); EOS % 0.4 % (0-4.5); HEMOGLOBIN 8.7 GM/dL (11.7-16.9); LYMPH % 9.1 % (8-40); MCHC 32.4 g/dl (32.0-35.9); MEAN PLT VOLUME 8.9 fl (7.5-11.1); MONO % 6.7 % (3.8-10.2); NEUT % 83.7 % (42.8-82.8); PLATELET COUNT 169 K/MM3 (134-434); RBC 4.43 M/mm3 (4.00-5.60); RDW 16.7 % (11.9-15.9); WHITE BLOOD COUNT 10.3 K/mm3 (4.0-10.0)
[2018-01-16 08:02] LABS: ALBUMIN 2.8 g/dl (3.4-5.0); ANION GAP 10 (8-16); BILIRUBIN,TOTAL 0.8 mg/dL (0.2-1.0); BLOOD UREA NITROGEN 56 mg/dL (7-18); CALCIUM 8.1 mg/dL (8.5-10.1); CHLORIDE 105 mmol/L (98-107); CO2 20 mmol/L (21-32); CREATININE 3.1 mg/dL (0.7-1.3); GLUCOSE,RANDOM 124 mg/dL (74-106); POTASSIUM 4.5 mmol/L (3.5-5.1); SGOT/AST 14 U/L (15-37); SGPT/ALT 17 U/L (12-78); SODIUM 135 mmol/L (136-145); TOT PROT 5.9 g/dl (6.4-8.2)
[2018-01-16 08:03] LABS: ALK PHOS 101 U/L (45-117)
[2018-01-16 08:34] LABS: MCH 19.7 pg (25.7-33.7)
[2018-01-16] MEDS: POTASSIUM CHLORIDE TABS 20 MEQ TABLET.ER (FP) PO SCH (09:34)
[2018-01-16] MEDS: NIFEdipine E.R 60 MG TABLET (UD) PO SCH (09:34)
[2018-01-16] MEDS: Methylnaltrexone Bromide 12 MG/0.6 ML KIT SQ SCH (09:34)
[2018-01-16] MEDS: PANTOPRAZOLE 40 MG TABLET (FP) PO SCH (09:34)
[2018-01-16] MEDS: ACETAMINOPHEN 325 MG TABLET (FP) PO PRN ×2 (09:52→15:35)
[2018-01-16] MEDS ORDERED: INSULIN (NOVOLOG) ASPART 100 UNITS/ML 10ML VIAL ONE (11:13)
[2018-01-16] MEDS: morphine SULFATE 4 MG/ML VIAL IVPUSH PRN ×2 (11:16→18:01)
--- NOTE | 2018-01-16 12:50 | CONSULT ---
Consult - text type - Consultation Consultation Note: Renal Consult for KARTHIKEYAN This si a 77 year old gentleman with PMhx of Bladder Tumor s/p resection, Hypertension, HLD who presented with complaints of abd pain and hematuria and found to have KARTHIKEYAN. Pt reports he started to notice some blood in his urine x 2 weeks ago. He was supposed to see his urologist but the pain intensified and brought him to the ER. No N/V. + Constipation. No Flank pain, fever, chills. CT of the Abd showed b/l hydronephrosis and hydroureter. Pt reports that he is making urine. PMhx: as above Allergies: NKDA Family Hx: NC Social Hx: Former smoker ROS: As per HPI Home Medications Medication Instructions Recorded Aspirin [ASA -] 81 mg PO DAILY 06/01/15 Metformin HCl [Glucophage] 1,000 mg PO BID 06/01/15 Metoprolol Succinate [Toprol Xl -] 100 mg PO DAILY 06/01/15 Pantoprazole Sodium [Protonix] 40 mg PO DAILY 06/01/15 Losartan/Hydrochlorothiazide 1 tab PO DAILY 08/10/17 [Losartan-Hctz 100-12.5 mg Tab] Silodosin [Rapaflo] 4 mg PO HS 08/10/17 Empagliflozin [Jardiance] 10 mg PO DAILY 08/30/17 Finasteride 5 mg PO HS 08/30/17 Nifedipine ER [Procardia Xl -] 60 mg PO DAILY 01/10/18 Vital Signs Temperature 98 F 01/16/18 09:42 Pulse Rate 85 01/16/18 09:42 Respiratory Rate 20 01/16/18 09:42 Blood Pressure 139/80 01/16/18 09:42 O2 Sat by Pulse Oximetry (%) 96 01/16/18 09:42 Intake & Output 01/13/18 01/14/18 01/15/18 01/16/18 23:59 23:59 23:59 23:59 Intake Total 2560 2955 1580 1020 Output Total 1200 950 Balance 2560 8045 987 8621 NAD awake and alert MMM, no JVD, neck supple RRR, no M/R CTA soft, obese, mild distension Trace LE edema, no clubbing or cyanosis no focal neurologic defects CBC, BMP 01/16/18 07:10 01/16/18 07:10 Current Medications Acetaminophen (Tylenol -) 650 mg PO Q6H PRN PRN Reason: PAIN SCALE 6-10 Last Admin: 01/16/18 09:52 Dose: 650 mg Docusate Sodium (Colace -) 100 mg PO TID [facility] Last Admin: 01/16/18 06:35 Dose: 100 mg Finasteride (Proscar -) 5 mg PO HS [facility] Last Admin: 01/15/18 22:36 Dose: 5 mg Hydrochlorothiazide (Hctz -) 12.5 mg PO DAILY [facility] Last Admin: 01/15/18 10:53 Dose: 12.5 mg Dextrose/Sodium Chloride (D5-1/2ns -) 1,000 mls @ 75 mls/hr IV ASDIR [facility] Last Admin: 01/16/18 06:29 Dose: 75 mls/hr Insulin Aspart (Novolog Vial Sliding Scale -) 1 vial SQ ACHS [facility] PRN Reason: ProtocolBP Last Admin: 01/16/18 11:21 Dose: 2 units Losartan Potassium (Cozaar -) 100 mg PO DAILY [facility] Last Admin: 01/15/18 10:53 Dose: 100 mg Metformin HCl (Glucophage -) 1,000 mg PO BIDAC [facility] Last Admin: 01/16/18 06:35 Dose: 1,000 mg Methylnaltrexone [place] (Relistor -) 12 mg SQ DAILY [facility] Last Admin: 01/16/18 09:34 Dose: 12 mg Metoclopramide HCl (Reglan Injection -) 10 mg IVPB Q8H [facility] Last Admin: 01/16/18 06:35 Dose: 10 mg Metoprolol Succinate (Toprol Xl -) 100 mg PO DAILY [facility] Last Admin: 01/16/18 09:34 Dose: 100 mg Morphine Sulfate (Morphine Sulfate) 4 mg IVPUSH Q6H PRN PRN Reason: PAIN SCALE 6-10 Last Admin: 01/16/18 11:16 Dose: 4 mg Nifedipine (Procardia Xl -) 60 mg PO DAILY [facility] Last Admin: 01/16/18 09:34 Dose: 60 mg Non-Formulary Medication (Empagliflozin [Jardiance]) 10 mg PO DAILY [facility] Pantoprazole Sodium (Protonix -) 40 mg PO DAILY [facility] Last Admin: 01/16/18 09:34 Dose: 40 mg Potassium Chloride (K-Dur -) 40 meq PO DAILY [facility] Last Admin: 04/02/18 09:34 Dose: 40 meq 77 year old gentleman with PMhx of Bladder Tumor s/p resection, Hypertension, HLD who presented with complaints of abd pain and hematuria and found to have KARTHIKEYAN. #KARTHIKEYAN secondary to obstruction at the level of the bladder #Hematuria #Hx of bladder tumor #Hypertension #Metabolic acidosis #Hyponatremia #Anemia Urology eval for rahman vs. cysto d/c ARB, HCTZ, IVF for now no indication for KEY FILER at this present time Dose all meds for CrCl less then 20 Trend BUN/cr and renal function continue Nifepdine XL for BP Continue proscar check iron studies Transfuse as per primary Thank you Shalom Alarcon DO
--- NOTE | 2018-01-16 13:56 | PN ---
Physical Exam: SUBJECTIVE: Patient seen and examined at the bedside. Ambulating in hallways, feels well, but has some suprapubic discomfort OBJECTIVE: Medical coverage for Dr. Raymond Galarza placed by urology today Creat: 3.1 Vital Signs Period Temp Pulse Resp BP Sys/Benjamin Pulse Ox Last 24 Hr 97.5 F-98.2 F 71-88 20-22 126-140/73-85 96-96 GENERAL: The patient is awake, alert, and fully oriented, in no acute distress. HEAD: Normal with no signs of trauma. EYES: PERRL, extraocular movements intact, sclera anicteric, conjunctiva clear. No ptosis. ENT: Ears normal, nares patent, oropharynx clear without exudates, moist mucous membranes. ABDOMEN: Soft, nontender, nondistended, normoactive bowel sounds EXTREMITIES: no edema. NEUROLOGICAL: Normal speech, steady gait PSYCH: Normal mood, normal affect. SKIN: Warm, dry, normal turgor, no rashes or lesions noted Laboratory Results - last 24 hr 01/15/18 01/15/18 01/16/18 17:49 21:59 05:23 WBC RBC Hgb Hct MCV MCH MCHC RDW Plt Count MPV Neutrophils % Lymphocytes % Monocytes % Eosinophils % Basophils % Sodium Potassium Chloride Carbon Dioxide Anion Gap BUN Creatinine Creat Clearance w eGFR POC Glucometer 176 157 136 Random Glucose Calcium Total Bilirubin AST ALT Alkaline Phosphatase Total Protein Albumin 01/16/18 01/16/18 01/16/18 07:10 07:10 11:20 WBC 10.3 H RBC 4.43 Hgb 8.7 L D Hct 27.0 L MCV 61.0 L MCH 19.7 L MCHC 32.4 RDW 16.7 H Plt Count 169 MPV 8.9 D Neutrophils % 83.7 H Lymphocytes % 9.1 D Monocytes % 6.7 Eosinophils % 0.4 Basophils % 0.1 Sodium 135 L Potassium 4.5 Chloride 105 Carbon Dioxide 20 L Anion Gap 10 BUN 56 H D Creatinine 3.1 H D Creat Clearance w eGFR 19.64 POC Glucometer 170 Random Glucose 124 H Calcium 8.1 L Total Bilirubin 0.8 D AST 14 L D ALT 17 Alkaline Phosphatase 101 Total Protein 5.9 L Albumin 2.8 L D Active Medications Generic Name Dose Route Start Last Admin Trade Name Freq PRN Reason Stop Dose Admin Acetaminophen 650 mg 01/15/18 12:50 01/16/18 09:52 Tylenol - PO 650 mg Q6H PRN Administration PAIN SCALE 6-10 Docusate Sodium 100 mg 01/12/18 22:00 01/16/18 06:35 Colace - PO 100 mg TID [facility] Administration Finasteride 5 mg 01/11/18 22:00 01/15/18 22:36 Proscar - PO 5 mg HS [facility] Administration Insulin Aspart 1 vial 01/11/18 07:00 01/16/18 11:21 Novolog Vial Sliding Scale - SQ 2 units ACHS [facility] Administration Protocol Methylnaltrexone [place] 12 mg 01/14/18 10:00 01/16/18 09:34 Relistor - SQ 12 mg DAILY [facility] Administration Metoclopramide HCl 10 mg 01/10/18 21:00 01/16/18 06:35 Reglan Injection - IVPB 10 mg Q8H [facility] Administration Metoprolol Succinate 100 mg 01/11/18 10:00 01/16/18 09:34 Toprol Xl - PO 100 mg DAILY [facility] Administration Morphine Sulfate 4 mg 01/14/18 09:45 01/16/18 11:16 Morphine Sulfate IVPUSH 4 mg Q6H PRN Administration PAIN SCALE 6-10 Nifedipine 60 mg 01/11/18 10:00 01/16/18 09:34 Procardia Xl - PO 60 mg DAILY [facility] Administration Non-Formulary Medication 10 mg 01/11/18 10:00 Empagliflozin [Jardiance] PO DAILY [facility] Pantoprazole Sodium 40 mg 01/11/18 10:00 01/16/18 09:34 Protonix - PO 40 mg DAILY [facility] Administration ASSESSMENT/PLAN: Patient is a 77 year old male with a significant past medical history of bladder tumor with resection. He presents to the ED on 01/10/2018 with c/o periumbilical pain and hematuria along with lactic acidosis, constipation and abdominal distension. ID: Lactic acidosis, resolved UTI initially treated with IV antibiotics of Zosyn, stopped after UC negative ID following, notes reviewed Monitor vitals, labs Monitor patient off antibiotics Hematuria: Difficulty with voiding with an elevated bun/creat Galarza placed by urology on 01/16 Inocencio hematuria with clots noted in catheter Hmg/hmt trending down since admission but hmg remains above 8 Will transfuse for hmg <8 Monitor labs Urology following Bladder tummor with resection Further workup as per urology GI: Abdominal pain/distention, resolved Constipation resolved On Relistor daily On colace TID GI following, notes reviewed Renal: KARTHIKEYAN Creat 3.1 today Renal consulted, notes reviewed Monitor daily bun/creat F.E.N. fluids: PO adequate Electrolytes: monitor Nutrition: low sodium diet Prohy: GI: Protonix, DVT: SCDs full code. Visit type - Emergency Visit Emergency Visit: Yes ED Registration Date: 01/10/18 Care time: The patient presented to the Emergency Department on the above date and was hospitalized for further evaluation of their emergent condition. - New Patient This patient is new to me today: Yes Date on this admission: 01/17/18 - Critical Care Critical Care patient: No - Discharge Referral Referred to [facility] Med [facility] No
--- NOTE | 2018-01-16 14:39 | CON.GU ---
Consult Consult Specialty:: for Dr. Delgadillo Referred by:: Raymond Reason for Consultation:: gross hematuria - History Source History Provided By: Patient, Medical Record Limitations to Obtaining History: No Limitations - Past Medical History Cardio/Vascular: Yes: HTN, Hyperlipdemia Renal/: Yes: BPH, Cancer, Hematuria - Alcohol/Substance Use Hx Alcohol Use: No - Smoking History Smoking history: Former smoker Have you smoked in the past 12 months: No Aproximately how many cigarettes per day: 0 If you are a former smoker, when did you quit?: 1989 Home Medications - Allergies Allergies/Adverse Reactions: Allergies Allergy/AdvReac Type Severity Reaction Status Date / Time No Known Allergies Allergy Verified 01/10/18 10:53 - Home Medications Home Medications: Ambulatory Orders Aspirin [ASA -] 81 mg PO DAILY 06/01/15 Metformin HCl [Glucophage] 1,000 mg PO BID 06/01/15 Metoprolol Succinate [Toprol Xl -] 100 mg PO DAILY 06/01/15 Pantoprazole Sodium [Protonix] 40 mg PO DAILY 06/01/15 Losartan/Hydrochlorothiazide [Losartan-Hctz 100-12.5 mg Tab] 1 tab PO DAILY Silodosin [Rapaflo] 4 mg PO HS 08/10/17 Empagliflozin [Jardiance] 10 mg PO DAILY 08/30/17 Finasteride 5 mg PO HS 08/30/17 Nifedipine ER [Procardia Xl -] 60 mg PO DAILY 01/10/18 Review of Systems - Review of Systems Genitourinary: reports: Hematuria Physical Exam- Vital Signs: Vital Signs Temperature 98 F 01/16/18 09:42 Pulse Rate 85 01/16/18 09:42 Respiratory Rate 20 01/16/18 09:42 Blood Pressure 139/80 01/16/18 09:42 O2 Sat by Pulse Oximetry (%) 96 01/16/18 09:42 Labs: CBC, BMP 01/16/18 07:10 01/16/18 07:10 Imaging - Results Cat Scan: Report Reviewed, Image Reviewed, Other ( Patient Name: Malathi Chua : 1940 ID: [id number] Study Date: 10-Jan-2018 17:12 [facility] Name: MALATHI CHUA JR DEPARTMENT OF RADIOLOGY Phys: Domingo Sandoval RESIDENT : 1940 Age: 77 Sex: M [facility] Acct: [id number] Loc: [facility] Exam Date: 01/10/18 Status: [place] [address] Unit Number: [id number] ACCESSION # : [id number] EXAM#: TYPE/EXAM: RESULT: [id number] CT/ABDOMEN PELVIS CT W/O CONTR Abdomen and pelvis CT (without contrast) Clinical information : pain Multiplanar imaging was performed. As requested intravenous contrast was not administered. Oral contrast was administered. In comparison to a prior CT exam of 02/28/2017 interval development of mild to moderate bilateral hydroureteronephrosis is noted to the level of the urinary bladder. Asymmetric wall thickening is seen involving the urinary bladder posteriorly which may be on the basis of neoplastic disease. Left perirenal fluid accumulation is noted which also extends into the lesser sac possibly secondary to acute ipsilateral hydronephrosis. The remainder of the exam demonstrates no obvious interval change. No evidence of pneumoperitoneum, free intraperitoneal fluid or bowel obstruction. There is no CT evidence of urolithiasis. Hepatic cirrhosis is seen. No gross mass lesion is identified. The spleen is mildly enlarged measuring 13 cm in length possibly secondary to portal hypertension wall thickening is seen along the gastric fundus and adjacent portion of the gastric body could be on the basis of hypertrophic gastritis and probably less likely indolent neoplastic disease given the lack of gross interval change. The pancreas, gallbladder, and adrenal glands demonstrate no discrete noncontrast pathology. There is no aortic aneurysm. No definite lymphadenopathy is seen. Extensive left-sided colonic diverticulosis is noted without evidence of acute diverticulitis. The appendix is not definitely visualized however there are no obvious indirect CT signs of acute appendicitis. The visualized osseous structures demonstrate no obvious CT evidence of acute pathology or neoplastic disease. IMPRESSION: In comparison to a previous CT exam of 02/28/2017 interval development of mild to moderate bilateral hydroureteronephrosis is noted to the level of the urinary bladder. Asymmetric urinary bladder wall thickening is seen posteriorly possibly on the basis of neoplastic disease. Left perirenal fluid accumulation is noted which also extends into the lesser sac. This finding may be secondary to acute renal obstruction. Correlate clinically and with close follow-up CT. The remainder of the exam demonstrates no obvious interval change. Gastric wall thickening is noted which could be on the basis of hypertrophic gastritis. Correlate with endoscopy or upper gastrointestinal series. Hepatic cirrhosis. Mild splenomegaly. Colonic diverticulosis. Reported By: Sammy Broussard MD 01/10/181806 Technologist: Keaton Sánchez Transcribed Date/Time: 01/10/181806 Laborer Livestock: Sammy Broussard Printed Date/Time: By:) Problem List - Problems (1) Hydronephrosis Assessment/Plan: rahman inserted, he may need cystoscopy and JJ stents Code(s): N13.30 - UNSPECIFIED HYDRONEPHROSIS (2) KARTHIKEYAN (acute kidney injury) Assessment/Plan: follow bun/creat Code(s): N17.9 - ACUTE KIDNEY FAILURE, UNSPECIFIED (3) Hematuria Code(s): R31.9 - HEMATURIA, UNSPECIFIED Qualifiers: Hematuria type: gross Qualified Code(s): R31.0 - Gross hematuria (4) History of bladder cancer Assessment/Plan: s/p bcg 6 weeks ago, he may need cystoscopy and bladder bx. will d/w dr delgadillo Code(s): Z85.51 - PERSONAL HISTORY OF MALIGNANT NEOPLASM OF BLADDER
--- NOTE | 2018-01-16 14:52 | PN ---
Progress Note, Physician History of Present Illness: patient stable could not pass urine foleys placed by urology hematuria - Current Medication List Current Medications: Active Medications Acetaminophen (Tylenol -) 650 mg PO Q6H PRN PRN Reason: PAIN SCALE 6-10 Last Admin: 01/16/18 09:52 Dose: 650 mg Docusate Sodium (Colace -) 100 mg PO TID [facility] Last Admin: 01/16/18 06:35 Dose: 100 mg Finasteride (Proscar -) 5 mg PO HS [facility] Last Admin: 01/15/18 22:36 Dose: 5 mg Insulin Aspart (Novolog Vial Sliding Scale -) 1 vial SQ ACHS [facility] PRN Reason: Protocol Last Admin: 01/16/18 11:21 Dose: 2 units Methylnaltrexone [place] (Relistor -) 12 mg SQ DAILY [facility] Last Admin: 01/16/18 09:34 Dose: 12 mg Metoclopramide HCl (Reglan Injection -) 10 mg IVPB Q8H [facility] Last Admin: 01/16/18 06:35 Dose: 10 mg Metoprolol Succinate (Toprol Xl -) 100 mg PO DAILY [facility] Last Admin: 01/16/18 09:34 Dose: 100 mg Morphine Sulfate (Morphine Sulfate) 4 mg IVPUSH Q6H PRN PRN Reason: PAIN SCALE 6-10 Last Admin: 01/16/18 11:16 Dose: 4 mg Nifedipine (Procardia Xl -) 60 mg PO DAILY [facility] Last Admin: 01/16/18 09:34 Dose: 60 mg Non-Formulary Medication (Empagliflozin [Jardiance]) 10 mg PO DAILY [facility] Pantoprazole Sodium (Protonix -) 40 mg PO DAILY [facility] Last Admin: 01/16/18 09:34 Dose: 40 mg - Objective Vital Signs: Vital Signs Temperature 98 F 01/16/18 09:42 Pulse Rate 85 01/16/18 09:42 Respiratory Rate 20 01/16/18 09:42 Blood Pressure 139/80 01/16/18 09:42 O2 Sat by Pulse Oximetry (%) 96 01/16/18 09:42 Constitutional: Yes: No Distress, Calm Cardiovascular: Yes: Regular Rate and Rhythm Respiratory: Yes: Regular, CTA Bilaterally Gastrointestinal: Yes: Normal Bowel Sounds, Soft Genitourinary: Yes: Galarza Present, Hematuria Musculoskeletal: Yes: WNL Extremities: Yes: WNL Neurological: Yes: Alert, Oriented Psychiatric: Yes: Alert, Oriented Labs: CBC, BMP 01/16/18 07:10 01/16/18 07:10 Assessment/Plan patient with multiple medical problems admitted with hematuria and constipation currently stable c/o abd distension abd distension hematuria lactic acidosis arf plan continue to monitor off of abx foleys in place rest as per primary team patient stable
[2018-01-16] MEDS ORDERED: PT OWN MED DRAWER 7, Y5N ONE (15:03)
[2018-01-16] MEDS: FINASTERIDE 5 MG TABLET (FP) PO SCH (21:02)
[2018-01-17] MEDS: METOCLOPRAMIDE HCL INJECTION 10 MG/2 ML VIAL IVPB SCH ×3 (05:20→20:51)
[2018-01-17] MEDS: INSULIN SLIDING SCALE (NOVOLOG) 1 VIAL SQ SCH ×4 (06:29→22:21)
[2018-01-17] MEDS: DOCUSATE SODIUM 100 MG CAPSULE (FP) PO SCH ×3 (06:30→22:22)
[2018-01-17 08:14] LABS: BASO % 0.5 % (0-2.0); EOS % 1.3 % (0-4.5); HEMATOCRIT 26.5 % (35.4-49); HEMOGLOBIN 8.4 GM/dL (11.7-16.9); LYMPH % 13.2 % (8-40); MCHC 31.8 g/dl (32.0-35.9); MEAN PLT VOLUME 9.3 fl (7.5-11.1); MONO % 8.1 % (3.8-10.2); NEUT % 76.9 % (42.8-82.8); PLATELET COUNT 170 K/MM3 (134-434); RBC 4.35 M/mm3 (4.00-5.60); RDW 16.8 % (11.9-15.9); WHITE BLOOD COUNT 9.1 K/mm3 (4.0-10.0)
[2018-01-17 08:28] LABS: MCH 19.4 pg (25.7-33.7)
[2018-01-17 08:58] LABS: CHLORIDE 108 mmol/L (98-107); POTASSIUM 4.8 mmol/L (3.5-5.1); SODIUM 136 mmol/L (136-145)
[2018-01-17] MEDS ORDERED: PT OWN MED DRAWER 7, Y5N ONE ×2 (09:08→22:50)
[2018-01-17] MEDS: NIFEdipine E.R 60 MG TABLET (UD) PO SCH (09:12)
[2018-01-17] MEDS: PANTOPRAZOLE 40 MG TABLET (FP) PO SCH (09:12)
[2018-01-17] MEDS: Methylnaltrexone Bromide 12 MG/0.6 ML KIT SQ SCH (09:12)
[2018-01-17 09:15] LABS: ALBUMIN 2.7 g/dl (3.4-5.0); ALK PHOS 156 U/L (45-117); ANION GAP 8 (8-16); BILIRUBIN,TOTAL 0.7 mg/dL (0.2-1.0); BLOOD UREA NITROGEN 62 mg/dL (7-18); CO2 20 mmol/L (21-32); CREATININE 3.4 mg/dL (0.7-1.3); GLUCOSE,RANDOM 108 mg/dL (74-106); MAGNESIUM 2.6 mg/dL (1.8-2.4); PHOSPHOROUS 4.4 mg/dL (2.5-4.9); SGOT/AST 16 U/L (15-37); SGPT/ALT 14 U/L (12-78); TOT PROT 6.3 g/dl (6.4-8.2)
[2018-01-17] MEDS: SODIUM CHLORIDE 0.45% 1,000 ML IV SCH ×2 (11:50→18:41)
--- NOTE | 2018-01-17 13:22 | PN ---
Progress Note, Physician History of Present Illness: still with alvaro hematuria foleys in place low h and h - Current Medication List Current Medications: Active Medications Acetaminophen (Tylenol -) 650 mg PO Q6H PRN PRN Reason: PAIN SCALE 6-10 Last Admin: 01/16/18 15:35 Dose: 650 mg Docusate Sodium (Colace -) 100 mg PO TID [facility] Last Admin: 01/17/18 13:11 Dose: 100 mg Finasteride (Proscar -) 5 mg PO HS [facility] Last Admin: 01/16/18 21:02 Dose: 5 mg Sodium Chloride (1/2 Normal Saline) 1,000 mls @ 83 mls/hr IV ASDIR [facility] Last Admin: 01/17/18 11:50 Dose: 83 mls/hr Insulin Aspart (Novolog Vial Sliding Scale -) 1 vial SQ ACHS [facility] PRN Reason: Protocol Last Admin: 01/17/18 12:09 Dose: 2 units Methylnaltrexone [place] (Relistor -) 12 mg SQ DAILY [facility] Last Admin: 01/17/18 09:12 Dose: 12 mg Metoclopramide HCl (Reglan Injection -) 10 mg IVPB Q8H [facility] Last Admin: 01/17/18 13:11 Dose: 10 mg Metoprolol Succinate (Toprol Xl -) 100 mg PO DAILY [facility] Last Admin: 01/17/18 09:12 Dose: 100 mg Nifedipine (Procardia Xl -) 60 mg PO DAILY [facility] Last Admin: 01/17/18 09:12 Dose: 60 mg Non-Formulary Medication (Empagliflozin [Jardiance]) 10 mg PO DAILY [facility] Pantoprazole Sodium (Protonix -) 40 mg PO DAILY [facility] Last Admin: 01/17/18 09:12 Dose: 40 mg - Objective Vital Signs: Vital Signs Temperature 98 F 01/17/18 09:01 Pulse Rate 86 01/17/18 09:01 Respiratory Rate 17 01/17/18 09:01 Blood Pressure 150/69 01/17/18 09:01 O2 Sat by Pulse Oximetry (%) 96 01/17/18 09:00 Constitutional: Yes: No Distress, Calm Cardiovascular: Yes: Regular Rate and Rhythm Respiratory: Yes: Regular, CTA Bilaterally Gastrointestinal: Yes: Normal Bowel Sounds, Soft Genitourinary: Yes: Galarza Present, Hematuria Musculoskeletal: Yes: WNL Extremities: Yes: WNL Integumentary: Yes: WNL Neurological: Yes: Alert, Oriented Psychiatric: Yes: Alert, Oriented Labs: CBC, BMP 01/17/18 06:00 01/17/18 06:00 Assessment/Plan patient with multiple medical problems admitted with hematuria and constipation currently stable c/o abd distension abd distension hematuria lactic acidosis arf plan continue to monitor off of abx foleys in place rest as per primary team patient stable urology patient continues to ahve hematuria
--- NOTE | 2018-01-17 13:42 | PN ---
Physical Exam: SUBJECTIVE: Patient seen and examined at the bedside. Feels well, denies any dizziness or any other discomfort. OBJECTIVE: hmg/hct slightly lower, will repeat CBC now Monitor rahman output Vital Signs Period Temp Pulse Resp BP Sys/Benjamin Pulse Ox Last 24 Hr 97.4 F-98.9 F 83-86 17-20 116-150/65-82 96-96 GENERAL: The patient is awake, alert, and fully oriented, in no acute distress. HEAD: Normal with no signs of trauma. EYES: PERRL, extraocular movements intact, sclera anicteric, conjunctiva clear. No ptosis. ENT: Ears normal, nares patent, oropharynx clear without exudates, moist mucous membranes. ABDOMEN: Soft, nontender, nondistended, normoactive bowel sounds EXTREMITIES: no edema. NEUROLOGICAL: Normal speech, steady gait PSYCH: Normal mood, normal affect. SKIN: Warm, dry, normal turgor, no rashes or lesions noted Laboratory Results - last 24 hr 01/16/18 01/16/18 01/17/18 16:36 21:58 05:43 WBC RBC Hgb Hct MCV MCH MCHC RDW Plt Count MPV Neutrophils % Lymphocytes % Monocytes % Eosinophils % Basophils % Sodium Potassium Chloride Carbon Dioxide Anion Gap BUN Creatinine Creat Clearance w eGFR POC Glucometer 287 98 114 Random Glucose Calcium Phosphorus Magnesium Ferritin Total Bilirubin AST ALT Alkaline Phosphatase Total Protein Albumin 01/17/18 01/17/18 01/17/18 06:00 06:00 11:33 WBC 9.1 RBC 4.35 Hgb 8.4 L Hct 26.5 L MCV 61.0 L MCH 19.4 L MCHC 31.8 L RDW 16.8 H Plt Count 170 MPV 9.3 Neutrophils % 76.9 Lymphocytes % 13.2 D Monocytes % 8.1 Eosinophils % 1.3 D Basophils % 0.5 D Sodium 136 Potassium 4.8 Chloride 108 H Carbon Dioxide 20 L Anion Gap 8 BUN 62 H Creatinine 3.4 H Creat Clearance w eGFR 17.65 POC Glucometer 189 Random Glucose 108 H Calcium 8.0 L Phosphorus 4.4 Magnesium 2.6 H D Ferritin 905.730 H Total Bilirubin 0.7 AST 16 ALT 14 Alkaline Phosphatase 156 H D Total Protein 6.3 L Albumin 2.7 L Active Medications Generic Name Dose Route Start Last Admin Trade Name Freq PRN Reason Stop Dose Admin Acetaminophen 650 mg 01/15/18 12:50 01/16/18 15:35 Tylenol - PO 650 mg Q6H PRN Administration PAIN SCALE 6-10 Docusate Sodium 100 mg 01/12/18 22:00 01/17/18 13:11 Colace - PO 100 mg TID [facility] Administration Finasteride 5 mg 01/11/18 22:00 01/16/18 21:02 Proscar - PO 5 mg HS [facility] Administration Sodium Chloride 1,000 mls @ 83 mls/hr 01/17/18 10:45 01/17/18 11:50 1/2 Normal Saline IV 83 mls/hr ASDIR [facility] Administration Insulin Aspart 1 vial 01/11/18 07:00 01/17/18 12:09 Novolog Vial Sliding Scale - SQ 2 units ACHS [facility] Administration Protocol Methylnaltrexone [place] 12 mg 01/14/18 10:00 01/17/18 09:12 Relistor - SQ 12 mg DAILY [facility] Administration Metoclopramide HCl 10 mg 01/10/18 21:00 01/17/18 13:11 Reglan Injection - IVPB 10 mg Q8H [facility] Administration Metoprolol Succinate 100 mg 01/11/18 10:00 01/17/18 09:12 Toprol Xl - PO 100 mg DAILY [facility] Administration Nifedipine 60 mg 01/11/18 10:00 01/17/18 09:12 Procardia Xl - PO 60 mg DAILY [facility] Administration Non-Formulary Medication 10 mg 01/11/18 10:00 Empagliflozin [Jardiance] PO DAILY [facility] Pantoprazole Sodium 40 mg 01/11/18 10:00 01/17/18 09:12 Protonix - PO 40 mg DAILY [facility] Administration ASSESSMENT/PLAN: Patient is a 77 year old male with a significant past medical history of bladder tumor with resection. He presents to the ED on 01/10/2018 with c/o periumbilical pain and hematuria along with lactic acidosis, constipation and abdominal distension. ID: Lactic acidosis, resolved UTI initially treated with IV antibiotics of Zosyn, stopped after UC negative ID following, notes reviewed Monitor vitals, labs Monitor patient off antibiotics Hematuria: Difficulty with voiding with an elevated bun/creat Rahman placed by urology on 01/16 Inocencio hematuria with clots noted in catheter Hmg/hmt trending down since admission but hmg remains above 8 Will transfuse for hmg <8 Monitor labs Urology following Bladder tummor with resection Further workup as per urology GI: Abdominal pain/distention, resolved Constipation resolved On Relistor daily On colace TID GI following, notes reviewed Renal: KARTHIKEYAN Creat 3.4 today Renal consulted, notes reviewed Monitor daily bun/creat F.E.N. fluids: 1/2 NS @ 83/cc/hr Electrolytes: monitor Nutrition: low sodium diet Prohy: GI: Protonix, DVT: SCDs full code. Visit type - Emergency Visit Emergency Visit: Yes ED Registration Date: 01/10/18 Care time: The patient presented to the Emergency Department on the above date and was hospitalized for further evaluation of their emergent condition. - New Patient This patient is new to me today: No - Critical Care Critical Care patient: No - Discharge Referral Referred to [facility] Med [facility] No
--- NOTE | 2018-01-17 14:20 | PN ---
Progress Note (short form) - Note Progress Note: Renal follow up for KARTHIKEYAN Pt seen and examined at the bedside rahman in place, has alvaro hematuria no abd pain making urine but RN did report having some clotts Vital Signs Temperature 98 F 01/17/18 09:01 Pulse Rate 86 01/17/18 09:01 Respiratory Rate 17 01/17/18 09:01 Blood Pressure 150/69 01/17/18 09:01 O2 Sat by Pulse Oximetry (%) 96 01/17/18 09:00 Intake & Output 01/14/18 01/15/18 01/16/18 01/17/18 23:59 23:59 23:59 23:59 Intake Total 2955 1580 2020 630 Output Total 5019 858 7382 440 Balance 1755 630 820 190 NAD MMM, no JVD, neck supple RRR, no M/R CTA soft, obese, mild distension Trace LE edema, no clubbing or cyanosis CBC, BMP 01/17/18 06:00 01/17/18 06:00 Current Medications Acetaminophen (Tylenol -) 650 mg PO Q6H PRN PRN Reason: PAIN SCALE 6-10 Last Admin: 01/16/18 15:35 Dose: 650 mg Docusate Sodium (Colace -) 100 mg PO TID [facility] Last Admin: 01/17/18 13:11 Dose: 100 mg Finasteride (Proscar -) 5 mg PO HS [facility] Last Admin: 01/16/18 21:02 Dose: 5 mg Sodium Chloride (1/2 Normal Saline) 1,000 mls @ 83 mls/hr IV ASDIR [facility] Last Admin: 01/17/18 11:50 Dose: 83 mls/hr Insulin Aspart (Novolog Vial Sliding Scale -) 1 vial SQ ACHS [facility] PRN Reason: Protocol Last Admin: 01/17/18 12:09 Dose: 2 units Methylnaltrexone [place] (Relistor -) 12 mg SQ DAILY [facility] Last Admin: 01/17/18 09:12 Dose: 12 mg Metoclopramide HCl (Reglan Injection -) 10 mg IVPB Q8H [facility] Last Admin: 01/17/18 13:11 Dose: 10 mg Metoprolol Succinate (Toprol Xl -) 100 mg PO DAILY [facility] Last Admin: 01/17/18 09:12 Dose: 100 mg Nifedipine (Procardia Xl -) 60 mg PO DAILY [facility] Last Admin: 01/17/18 09:12 Dose: 60 mg Non-Formulary Medication (Empagliflozin [Jardiance]) 10 mg PO DAILY [facility] Pantoprazole Sodium (Protonix -) 40 mg PO DAILY [facility] Last Admin: 01/17/18 09:12 Dose: 40 mg 77 year old gentleman with PMhx of Bladder Tumor s/p resection, Hypertension, HLD who presented with complaints of abd pain and hematuria and found to have KARTHIKEYAN. #KARTHIKEYAN secondary to obstruction at the level of the bladder #Hematuria #Hx of bladder tumor #Hypertension #Metabolic acidosis #Hyponatremia #Anemia Renal function now improved s/p rahman pt may have bladder inlet obstruction from bladder wall thickening vs. recurrene of bladder tumor case discussed with urology, to continue rahman for now and monitor started on IVF Trend BUN/Cr no indication for BOLOGNA LACER at the present time continue proscar dose all meds for CrCl less then 15 Thank you Shalom Alarcon DO
[2018-01-17 21:30] LABS: BASO % 0.5 % (0-2.0); EOS % 2.4 % (0-4.5); HEMATOCRIT 23.5 % (35.4-49); HEMOGLOBIN 7.6 GM/dL (11.7-16.9); LYMPH % 14.7 % (8-40); MCHC 32.5 g/dl (32.0-35.9); MEAN CELL VOLUME 61.4 fl (80-96); MEAN PLT VOLUME 10.5 fl (7.5-11.1); MONO % 8.1 % (3.8-10.2); NEUT % 74.3 % (42.8-82.8); PLATELET COUNT 191 K/MM3 (134-434); RBC 3.82 M/mm3 (4.00-5.60); RDW 16.6 % (11.9-15.9)
[2018-01-17 21:32] LABS: MCH 19.9 pg (25.7-33.7)
[2018-01-17] MEDS: FINASTERIDE 5 MG TABLET (FP) PO SCH (22:22)
[2018-01-18 06:06] LABS: SERUM IRON SATURATION 10 % (15-55); TOTAL IRON BINDING CAPACITY 145 ug/dL (250-450); UIBC 130 ug/dL (111-343)
[2018-01-18] MEDS: INSULIN SLIDING SCALE (NOVOLOG) 1 VIAL SQ SCH ×4 (06:33→21:22)
[2018-01-18] MEDS: METOCLOPRAMIDE HCL INJECTION 10 MG/2 ML VIAL IVPB SCH ×2 (06:34→14:15)
[2018-01-18] MEDS: DOCUSATE SODIUM 100 MG CAPSULE (FP) PO SCH ×3 (06:34→21:22)
[2018-01-18 07:16] LABS: HEMATOCRIT 26.9 % (35.4-49); HEMOGLOBIN 8.8 GM/dL (11.7-16.9); LYMPH % 17.4 % (8-40); MCH 20.4 pg (25.7-33.7); MCHC 32.6 g/dl (32.0-35.9); MEAN CELL VOLUME 62.7 fl (80-96); MEAN PLT VOLUME 9.1 fl (7.5-11.1); NEUT % 70.8 % (42.8-82.8); PLATELET COUNT 203 K/MM3 (134-434); RDW 17.1 % (11.9-15.9)
[2018-01-18 07:17] LABS: BASO % 0.6 % (0-2.0); EOS % 2.8 % (0-4.5); MONO % 8.4 % (3.8-10.2)
[2018-01-18] MEDS ORDERED: PT OWN MED DRAWER 7, Y5N ONE (08:50)
[2018-01-18 09:19] LABS: ALBUMIN 2.7 g/dl (3.4-5.0); ANION GAP 13 (8-16); BILIRUBIN,TOTAL 1.2 mg/dL (0.2-1.0); BLOOD UREA NITROGEN 94 mg/dL (7-18); CALCIUM 7.8 mg/dL (8.5-10.1); CHLORIDE 103 mmol/L (98-107); CO2 17 mmol/L (21-32); CREATININE 5.9 mg/dL (0.7-1.3); GLUCOSE,RANDOM 108 mg/dL (74-106); MAGNESIUM 2.3 mg/dL (1.8-2.4); PHOSPHOROUS 6.1 mg/dL (2.5-4.9); SGOT/AST 15 U/L (15-37); SGPT/ALT 16 U/L (12-78); SODIUM 133 mmol/L (136-145); TOT PROT 5.9 g/dl (6.4-8.2)
[2018-01-18 09:20] LABS: ALK PHOS 188 U/L (45-117)
[2018-01-18] MEDS: PANTOPRAZOLE 40 MG TABLET (FP) PO SCH (09:53)
[2018-01-18] MEDS: NIFEdipine E.R 60 MG TABLET (UD) PO SCH (09:53)
[2018-01-18] MEDS: Methylnaltrexone Bromide 12 MG/0.6 ML KIT SQ SCH (09:55)
--- NOTE | 2018-01-18 11:14 | PN ---
Progress Note, Physician History of Present Illness: patient doing well still with hematuria - Current Medication List Current Medications: Active Medications Acetaminophen (Tylenol -) 650 mg PO Q6H PRN PRN Reason: PAIN SCALE 6-10 Last Admin: 01/16/18 15:35 Dose: 650 mg Docusate Sodium (Colace -) 100 mg PO TID [facility] Last Admin: 01/18/18 06:34 Dose: 100 mg Finasteride (Proscar -) 5 mg PO HS [facility] Last Admin: 01/17/18 22:22 Dose: 5 mg Sodium Chloride (1/2 Normal Saline) 1,000 mls @ 83 mls/hr IV ASDIR [facility] Last Admin: 01/17/18 18:41 Dose: 83 mls/hr Insulin Aspart (Novolog Vial Sliding Scale -) 1 vial SQ ACHS [facility] PRN Reason: Protocol Last Admin: 01/18/18 06:33 Dose: Not Given Methylnaltrexone [place] (Relistor -) 12 mg SQ DAILY [facility] Last Admin: 01/18/18 09:55 Dose: 12 mg Metoclopramide HCl (Reglan Injection -) 10 mg IVPB Q8H [facility] Last Admin: 01/18/18 06:34 Dose: 10 mg Metoprolol Succinate (Toprol Xl -) 100 mg PO DAILY [facility] Last Admin: 01/18/18 09:53 Dose: 100 mg Nifedipine (Procardia Xl -) 60 mg PO DAILY [facility] Last Admin: 01/18/18 09:53 Dose: 60 mg Non-Formulary Medication (Empagliflozin [Jardiance]) 10 mg PO DAILY [facility] Pantoprazole Sodium (Protonix -) 40 mg PO DAILY [facility] Last Admin: 01/18/18 09:53 Dose: 40 mg - Objective Vital Signs: Vital Signs Temperature 98.3 F 01/18/18 06:00 Pulse Rate 74 01/18/18 06:00 Respiratory Rate 20 01/18/18 06:00 Blood Pressure 116/77 01/18/18 06:00 O2 Sat by Pulse Oximetry (%) 96 01/17/18 21:00 Constitutional: Yes: No Distress, Calm Cardiovascular: Yes: Regular Rate and Rhythm Respiratory: Yes: Regular, CTA Bilaterally Gastrointestinal: Yes: Normal Bowel Sounds, Soft Genitourinary: Yes: Galarza Present, Hematuria Musculoskeletal: Yes: WNL Extremities: Yes: WNL Neurological: Yes: Alert, Oriented Psychiatric: Yes: Alert, Oriented Labs: CBC, BMP 01/18/18 07:00 01/18/18 07:00 Assessment/Plan patient with multiple medical problems admitted with hematuria and constipation currently stable c/o abd distension abd distension hematuria lactic acidosis arf plan continue to monitor off of abx foleys in place still with hematuria other no problems
--- NOTE | 2018-01-18 12:59 | PN ---
JESSICA Mackay Note Chief Complaint: hematuria History of Present Illness: 77 yo m w hx bladder ca, worsening KARTHIKEYAN (creat 5.9) despite rahman, gross hematuria and bilat hydronephrosis - Objective Vital Signs: Vital Signs Temperature 98.3 F 01/18/18 06:00 Pulse Rate 74 01/18/18 06:00 Respiratory Rate 20 01/18/18 06:00 Blood Pressure 116/77 01/18/18 06:00 O2 Sat by Pulse Oximetry (%) 96 01/17/18 21:00 Constitutional: Yes: Well Nourished, No Distress, Calm Eyes: Yes: WNL, Conjunctiva Clear, EOM Intact HENT: Yes: WNL, Atraumatic, Normocephalic Genitourinary: Yes: Rahman Present, Hematuria Labs/Additional Data: CBC, BMP 01/18/18 07:00 01/18/18 07:00 Blood Type Blood Type A POSITIVE 01/17/18 22:20 Antibody Screen Negative 01/17/18 22:20 Problem List - Problems (1) Hydronephrosis Assessment/Plan: cystoscopy and bilat JJ stent insertion Code(s): N13.30 - UNSPECIFIED HYDRONEPHROSIS (2) KARTHIKEYAN (acute kidney injury) Assessment/Plan: worsening Code(s): N17.9 - ACUTE KIDNEY FAILURE, UNSPECIFIED (3) Hematuria Assessment/Plan: cont rahman, irrigate prn, cystoscopy and fulguration of bleeding, poss bladder bx, bilat JJ stent insertion 01/19 Code(s): R31.9 - HEMATURIA, UNSPECIFIED Qualifiers: Hematuria type: gross Qualified Code(s): R31.0 - Gross hematuria (4) History of bladder cancer Code(s): Z85.51 - PERSONAL HISTORY OF MALIGNANT NEOPLASM OF BLADDER (5) Bladder cancer Assessment/Plan: cysto bladder bx Code(s): C67.9 - MALIGNANT NEOPLASM OF BLADDER, UNSPECIFIED
[2018-01-18] MEDS: SODIUM CHLORIDE 0.45% 1,000 ML IV SCH (13:09)
[2018-01-18] MEDS: METOCLOPRAMIDE HCL INJECTION 10 MG/2 ML VIAL IVPUSH SCH ×2 (14:16→21:21)
[2018-01-18] MEDS: SODIUM BICARBONATE 650 MG TABLET PO SCH ×2 (15:41→21:22)
--- NOTE | 2018-01-18 18:31 | PN ---
Progress Note (short form) - Note Progress Note: Renal follow up for KARTHIKEYAN Pt seen and examined at the bedside sitting in the chair no sob, chest pain, abd pain Vital Signs Temperature 98.2 F 01/18/18 14:49 Pulse Rate 79 01/18/18 14:49 Respiratory Rate 18 01/18/18 14:49 Blood Pressure 122/63 01/18/18 14:49 O2 Sat by Pulse Oximetry (%) 96 01/18/18 09:00 Intake & Output 01/15/18 01/16/18 01/17/18 01/18/18 23:59 23:59 23:59 23:59 Intake Total 1580 2020 2678 1500 Output Total 950 1200 740 200 Balance 209 059 6990 1300 NAD MMM, no JVD, neck supple RRR, no M/R CTA soft, obese, mild distension Trace LE edema, no clubbing or cyanosis CBC, BMP 01/18/18 07:00 01/18/18 07:00 Current Medications Acetaminophen (Tylenol -) 650 mg PO Q6H PRN PRN Reason: PAIN SCALE 6-10 Last Admin: 01/16/18 15:35 Dose: 650 mg Docusate Sodium (Colace -) 100 mg PO TID [facility] Last Admin: 01/18/18 14:16 Dose: 100 mg Finasteride (Proscar -) 5 mg PO HS [facility] Last Admin: 01/17/18 22:22 Dose: 5 mg Insulin Aspart (Novolog Vial Sliding Scale -) 1 vial SQ ACHS [facility] PRN Reason: Protocol Last Admin: 01/18/18 17:33 Dose: 4 units Methylnaltrexone [place] (Relistor -) 12 mg SQ DAILY [facility] Last Admin: 01/18/18 09:55 Dose: 12 mg Metoclopramide HCl (Reglan Injection -) 10 mg IVPUSH Q8H [facility] Last Admin: 01/18/18 14:16 Dose: 10 mg Metoprolol Succinate (Toprol Xl -) 100 mg PO DAILY [facility] Last Admin: 01/18/18 09:53 Dose: 100 mg Nifedipine (Procardia Xl -) 60 mg PO DAILY [facility] Last Admin: 01/18/18 09:53 Dose: 60 mg Non-Formulary Medication (Empagliflozin [Jardiance]) 10 mg PO DAILY [facility] Pantoprazole Sodium (Protonix -) 40 mg PO DAILY [facility] Last Admin: 01/18/18 09:53 Dose: 40 mg Sodium Bicarbonate (Sodium Bicarbonate -) 650 mg PO BID [facility] Last Admin: 01/18/18 15:41 Dose: 650 mg 77 year old gentleman with PMhx of Bladder Tumor s/p resection, Hypertension, HLD who presented with complaints of abd pain and hematuria and found to have KARTHIKEYAN. 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
[2018-01-18] MEDS: ACETAMINOPHEN 325 MG TABLET (FP) PO PRN (18:48)
[2018-01-18] MEDS ORDERED: DEXTROSE 5%-0.45% SALINE 1,000 ML IV SCH (20:45)
[2018-01-18] MEDS: FINASTERIDE 5 MG TABLET (FP) PO SCH (21:22)
[2018-01-18] MEDS ORDERED: ZOLPIDEM TARTRATE 5 MG TABLET PO ONE (22:00)
--- NOTE | 2018-01-18 23:28 | PN ---
Progress Note, Physician History of Present Illness: Pt with gross hematuria - Current Medication List Current Medications: Active Medications Acetaminophen (Tylenol -) 650 mg PO Q6H PRN PRN Reason: PAIN SCALE 6-10 Last Admin: 01/18/18 18:48 Dose: 650 mg Docusate Sodium (Colace -) 100 mg PO TID [facility] Last Admin: 01/18/18 21:22 Dose: 100 mg Finasteride (Proscar -) 5 mg PO HS [facility] Last Admin: 01/18/18 21:22 Dose: 5 mg Dextrose/Sodium Chloride (D5-1/2ns -) 1,000 mls @ 75 mls/hr IV ASDIR [facility] Last Admin: 01/18/18 22:15 Dose: 75 mls/hr Insulin Aspart (Novolog Vial Sliding Scale -) 1 vial SQ ACHS [facility] PRN Reason: Protocol Last Admin: 01/18/18 21:22 Dose: Not Given Methylnaltrexone [place] (Relistor -) 12 mg SQ DAILY [facility] Last Admin: 01/18/18 09:55 Dose: 12 mg Metoclopramide HCl (Reglan Injection -) 10 mg IVPUSH Q8H [facility] Last Admin: 01/18/18 21:21 Dose: 10 mg Metoprolol Succinate (Toprol Xl -) 100 mg PO DAILY [facility] Last Admin: 01/18/18 09:53 Dose: 100 mg Nifedipine (Procardia Xl -) 60 mg PO DAILY [facility] Last Admin: 01/18/18 09:53 Dose: 60 mg Non-Formulary Medication (Empagliflozin [Jardiance]) 10 mg PO DAILY [facility] Pantoprazole Sodium (Protonix -) 40 mg PO DAILY [facility] Last Admin: 01/18/18 09:53 Dose: 40 mg Sodium Bicarbonate (Sodium Bicarbonate -) 650 mg PO BID [facility] Last Admin: 01/18/18 21:22 Dose: 650 mg - Objective Vital Signs: Vital Signs Temperature 97.4 F L 01/18/18 18:32 Pulse Rate 73 01/18/18 18:32 Respiratory Rate 18 01/18/18 18:32 Blood Pressure 113/67 01/18/18 18:32 O2 Sat by Pulse Oximetry (%) 96 01/18/18 09:00 Constitutional: Yes: Well Nourished Neck: Yes: WNL, Supple Cardiovascular: Yes: WNL, Regular Rate and Rhythm Respiratory: Yes: WNL, Regular, CTA Bilaterally Gastrointestinal: Yes: WNL, Normal Bowel Sounds, Soft Labs: CBC, BMP 01/18/18 07:00 01/18/18 07:00 Problem List - Problems (1) Hematuria Assessment/Plan: Cystoscopy and stent placement for am Code(s): R31.9 - HEMATURIA, UNSPECIFIED Qualifiers: Hematuria type: gross Qualified Code(s): R31.0 - Gross hematuria (2) UTI (urinary tract infection) Assessment/Plan: Urine culture have been negative IV antibiotics were stopped Code(s): N39.0 - URINARY TRACT INFECTION, SITE NOT SPECIFIED (3) ARF (acute renal failure) Assessment/Plan: Worsening creatinine Cont to monitor Code(s): N17.9 - ACUTE KIDNEY FAILURE, UNSPECIFIED (4) Hypertension Assessment/Plan: BP stable Cont toprol/nifedipine/HCTZ/cozaar Code(s): I10 - ESSENTIAL (PRIMARY) HYPERTENSION Qualifiers: Hypertension type: other secondary hypertension Qualified Code(s): I15.8 - Other secondary hypertension (5) Diabetes Code(s): E11.9 - TYPE 2 DIABETES MELLITUS WITHOUT COMPLICATIONS (6) Anemia Code(s): D64.9 - ANEMIA, UNSPECIFIED (7) BPH (benign prostatic hyperplasia) Code(s): N40.0 - BENIGN PROSTATIC HYPERPLASIA WITHOUT LOWER URINRY TRACT SYMP (8) HLD (hyperlipidemia) Code(s): E78.5 - HYPERLIPIDEMIA, UNSPECIFIED (9) Abdominal pain Code(s): R10.9 - UNSPECIFIED ABDOMINAL PAIN
[2018-01-19] MEDS: INSULIN SLIDING SCALE (NOVOLOG) 1 VIAL SQ SCH ×4 (06:42→21:27)
[2018-01-19] MEDS: DOCUSATE SODIUM 100 MG CAPSULE (FP) PO SCH ×3 (06:42→21:26)
[2018-01-19] MEDS: METOCLOPRAMIDE HCL INJECTION 10 MG/2 ML VIAL IVPUSH SCH ×3 (06:42→21:26)
[2018-01-19 08:53] LABS: BASO % 0.8 % (0-2.0); EOS % 1.5 % (0-4.5); HEMATOCRIT 28.4 % (35.4-49); HEMOGLOBIN 9.1 GM/dL (11.7-16.9); MEAN CELL VOLUME 62.5 fl (80-96); MEAN PLT VOLUME 9.1 fl (7.5-11.1); NEUT % 79.7 % (42.8-82.8); PLATELET COUNT 200 K/MM3 (134-434); RBC 4.55 M/mm3 (4.00-5.60); RDW 17.7 % (11.9-15.9); WHITE BLOOD COUNT 7.9 K/mm3 (4.0-10.0)
[2018-01-19 09:44] LABS: CALCIUM 8.2 mg/dL (8.5-10.1); CHLORIDE 104 mmol/L (98-107); SODIUM 133 mmol/L (136-145)
[2018-01-19 09:59] LABS: ALBUMIN 2.8 g/dl (3.4-5.0); ALK PHOS 317 U/L (45-117); ANION GAP 17 (8-16); BILIRUBIN,TOTAL 0.6 mg/dL (0.2-1.0); CO2 12 mmol/L (21-32); GLUCOSE,RANDOM 97 mg/dL (74-106); PHOSPHOROUS 7.7 mg/dL (2.5-4.9); SGPT/ALT 23 U/L (12-78); TOT PROT 6.3 g/dl (6.4-8.2)
[2018-01-19] MEDS ORDERED: PT OWN MED DRAWER 7, Y5N ONE (10:00)
[2018-01-19] MEDS: PANTOPRAZOLE 40 MG TABLET (FP) PO SCH (10:03)
[2018-01-19] MEDS: NIFEdipine E.R 60 MG TABLET (UD) PO SCH (10:03)
[2018-01-19] MEDS: SODIUM BICARBONATE 650 MG TABLET PO SCH ×2 (10:03→21:26)
[2018-01-19 10:32] LABS: POTASSIUM 5.7 mmol/L (3.5-5.1)
[2018-01-19 10:33] LABS: MAGNESIUM 2.3 mg/dL (1.8-2.4); SGOT/AST 36 U/L (15-37)
[2018-01-19 10:34] LABS: BLOOD UREA NITROGEN 109 mg/dL (7-18)
[2018-01-19 11:05] LABS: INR 1.14 (0.82-1.09); PROTHROMBIN TIME (PATIENT) 12.9 SEC (9.98-11.88)
[2018-01-19] MEDS ORDERED: SODIUM POLYSTYRENE SULFONATE 15 GM/60 ML BOTTLE PO STA ×2 (11:13→14:19)
[2018-01-19] MEDS ORDERED: SODIUM CHLORIDE 1,000 ML IV SCH ×2 (11:15→14:19)
--- NOTE | 2018-01-19 11:19 | PN ---
Progress Note (short form) - Note Progress Note: briefly pt's creat 8 today k 5.7 he was examined - anxious denies nausea or sob chart reviewed obstructive uropathy/h/o bladder tumor resection for cysto and stent placement today Last Vital Signs Temp Pulse Resp BP Pulse Ox 98.7 F 72 18 145/77 96 01/19/18 06:00 01/19/18 06:00 01/19/18 06:00 01/19/18 06:00 01/18/18 09:00 Lungs clear heart reg abd soft ?distended Plan- IVF kvo for now kayexalate stat he was explained that he may need dialysis at least temporarily if kidney failure is not reversed soon will plan cmp after the procedure
--- NOTE | 2018-01-19 11:49 | PN ---
Progress Note, Physician History of Present Illness: patient doing well still with hematuria - Current Medication List Current Medications: Active Medications Acetaminophen (Tylenol -) 650 mg PO Q6H PRN PRN Reason: PAIN SCALE 6-10 Last Admin: 01/18/18 18:48 Dose: 650 mg Docusate Sodium (Colace -) 100 mg PO TID [facility] Last Admin: 01/19/18 06:42 Dose: Not Given Finasteride (Proscar -) 5 mg PO HS [facility] Last Admin: 01/18/18 21:22 Dose: 5 mg Dextrose/Sodium Chloride (D5-1/2ns -) 1,000 mls @ 75 mls/hr IV ASDIR [facility] Last Admin: 01/18/18 22:15 Dose: 75 mls/hr Sodium Chloride (Normal Saline -) 1,000 mls @ 42 mls/hr IV ASDIR [facility] Insulin Aspart (Novolog Vial Sliding Scale -) 1 vial SQ ACHS [facility] PRN Reason: Protocol Last Admin: 01/19/18 11:23 Dose: Not Given Methylnaltrexone [place] (Relistor -) 12 mg SQ DAILY [facility] Last Admin: 01/18/18 09:55 Dose: 12 mg Metoclopramide HCl (Reglan Injection -) 10 mg IVPUSH Q8H [facility] Last Admin: 01/19/18 06:42 Dose: 10 mg Metoprolol Succinate (Toprol Xl -) 100 mg PO DAILY [facility] Last Admin: 01/19/18 10:03 Dose: 100 mg Nifedipine (Procardia Xl -) 60 mg PO DAILY [facility] Last Admin: 01/19/18 10:03 Dose: 60 mg Non-Formulary Medication (Empagliflozin [Jardiance]) 10 mg PO DAILY [facility] Pantoprazole Sodium (Protonix -) 40 mg PO DAILY [facility] Last Admin: 01/19/18 10:03 Dose: 40 mg Sodium Bicarbonate (Sodium Bicarbonate -) 650 mg PO BID [facility] Last Admin: 01/19/18 10:03 Dose: 650 mg - Objective Vital Signs: Vital Signs Temperature 98.7 F 01/19/18 06:00 Pulse Rate 72 01/19/18 06:00 Respiratory Rate 18 01/19/18 06:00 Blood Pressure 145/77 01/19/18 06:00 O2 Sat by Pulse Oximetry (%) 96 01/18/18 09:00 Constitutional: Yes: No Distress, Calm Cardiovascular: Yes: Regular Rate and Rhythm Respiratory: Yes: Regular, CTA Bilaterally Gastrointestinal: Yes: Normal Bowel Sounds, Soft Genitourinary: Yes: Galarza Present, Other (hematuria) Musculoskeletal: Yes: WNL Extremities: Yes: WNL Neurological: Yes: Alert, Oriented Psychiatric: Yes: Alert, Oriented Labs: CBC, BMP 01/19/18 08:05 01/19/18 08:05 INR, PTT INR 1.14 (0.82-1.09) 01/19/18 08:10 Assessment/Plan patient with multiple medical problems admitted with hematuria and constipation currently stable c/o abd distension abd distension hematuria lactic acidosis arf plan continue to monitor off of abx foleys in place patient going to or plan for stenting and cystoscopy
[2018-01-19] MEDS ORDERED: ONDANSETRON 4 MG/2 ML VIAL IVPUSH PRN ×2 (12:41→14:19)
[2018-01-19] MEDS ORDERED: PROPOFOL 20 ML ONE ×2 (12:53)
--- NOTE | 2018-01-19 12:56 | OP ---
Operative Note - Note: Operative Date: 01/19/18 Pre-Operative Diagnosis: gross hematuria, bilateral hydronephrosis, hx of bladder CA Operation: cystoscopy, L JJ stent insertion, bladder biopsy and fulguration, attempted R JJ stent insertion Findings: ? recurrent bladder tumor R post wall, R UVJ obstruction, bladder hemorrhage, L hydronephrosis Post-Operative Diagnosis: Same as Pre-op (+ R UVJO) Surgeon: Duglas Morrell Anesthesiologist/MONOTYPER: Juana Gan Anesthesia: General Specimens Removed: bladder biopsies Drains & Tubes with Location: 7 fr 26 cm L JJ stent Operative Report Dictated: Yes
[2018-01-19] MEDS ORDERED: ceFAZolin SODIUM 1 GM VIAL IVPB ONE (13:03)
[2018-01-19] MEDS ORDERED: ceFAZolin SODIUM 1 GM VIAL ONE (13:18)
[2018-01-19] MEDS ORDERED: DEXTROSE 5%-0.45% SALINE 1,000 ML IV SCH (14:19)
--- NOTE | 2018-01-19 14:24 | OP ---
DATE OF OPERATION: 01/19/2018 PREOPERATIVE DIAGNOSIS: Gross hematuria, hydronephrosis, history of bladder cancer. POSTOPERATIVE DIAGNOSIS: Gross hematuria, hydronephrosis, history of bladder cancer, bladder hemorrhage, bladder tumor, right ureterovesical junction obstruction. PROCEDURE: Cystoscopy, fulguration of bleeding, evacuation of clot, bladder biopsy, left retrograde pyelogram, left double-J stent insertion, attempted right double-J stent insertion. SURGEON: Duglas Rios MD [address] [facility] MAGISTRATE: None. ANESTHESIA: General via laryngeal mask. ANESTHESIOLOGIST: Dr. Gan SPECIMENS: Bladder biopsies. CULTURES: None. DRAINS: A 22-[place] 3-way Galarza catheter, 10-mL balloon. ESTIMATED BLOOD LOSS: Negligible. COMPLICATIONS: None. DESCRIPTION OF PROCEDURE: The patient was brought into the operating room and placed on the operating room table in a supine position. After administration of general anesthesia via laryngeal mask, intravenous antibiotics were administered. Sequential compression devices were placed. Indwelling Galarza catheter was now removed. The genitals and perineum were prepped and draped in the usual sterile manner. A 22-[place]gent[place] cystoscope was inserted into the anterior urethra under direct vision. The anterior urethra was normal. The prostatic urethra demonstrated the patient had a BPH and possible status post TURP in the past. The bladder was entered and thoroughly inspected. There were no foreign bodies. There did appear to be diffuse thickening of the right side of the bladder posterior and posterolateral wall. This obscured the right ureteral orifice. The left ureteral orifice was in its usual location with diminished efflux. There was some scattered bleeding within the bladder, which was cauterized with a Bugbee electrode. Now the left ureteral orifice was cannulated with a 0.038 guidewire, which was advanced to the level of the left renal pelvis under fluoroscopic and direct visual guidance. Dual-lumen catheter was inserted. Retrograde pyelogram was done and demonstrated moderate left hydronephrosis. The guidewire was now coiled in the renal pelvis. Dual-lumen catheter was removed, and a 7-[place]gent[place] 26-cm left double-J stent was inserted over the guidewire under direct visual and fluoroscopic guidance leaving one coil in the renal pelvis and one coil in the bladder. Now, an area of the thickened bladder wall on the right posterolateral and posterior wall was biopsied and sent to Pathology as specimen. Using the Bugbee, the base of these biopsies were cauterized as well as any other visible bladder hemorrhage. Hemostasis was assured. All clots were removed from the bladder. Multiple attempts at inserting a guidewire to the right ureteral orifice, which was nonvisualized, were unsuccessful. Instruments were removed, and a No. 22-[place] 3-way Galarza catheter was inserted in the bladder, 10 mL was placed in the balloon and placed on continuous bladder irrigation and returned minimally blood tinged. He tolerated the procedure well and was transferred to the recovery room in stable condition. PLAN: The patient will probably need right nephrostomy. Follow up BUN and creatinine. Await pathology on bladder biopsy. DUGLAS RIOS M.D. [id number]
[2018-01-19] MEDS: Methylnaltrexone Bromide 12 MG/0.6 ML KIT SQ SCH (15:42)
[2018-01-19] MEDS ORDERED: INSULIN (NOVOLOG) ASPART 100 UNITS/ML 10ML VIAL ONE (21:10)
[2018-01-19] MEDS: FINASTERIDE 5 MG TABLET (FP) PO SCH (21:26)
--- NOTE | 2018-01-19 23:10 | PN ---
Progress Note, Physician History of Present Illness: seen and examined at bedside. No acute distress. - Current Medication List Current Medications: Active Medications Acetaminophen (Tylenol -) 650 mg PO Q6H PRN PRN Reason: PAIN SCALE 6-10 Docusate Sodium (Colace -) 100 mg PO TID [facility] Last Admin: 01/19/18 21:26 Dose: 100 mg Finasteride (Proscar -) 5 mg PO HS [facility] Last Admin: 01/19/18 21:26 Dose: 5 mg Sodium Chloride (Normal Saline -) 1,000 mls @ 42 mls/hr IV ASDIR [facility] Last Admin: 01/19/18 15:00 Dose: 0 mls Insulin Aspart (Novolog Vial Sliding Scale -) 1 vial SQ ACHS [facility] PRN Reason: Protocol Last Admin: 01/19/18 21:27 Dose: 2 units Methylnaltrexone [place] (Relistor -) 6 mg SQ Q2D@1000 [facility] Metoclopramide HCl (Reglan Injection -) 10 mg IVPUSH Q8H [facility] Last Admin: 01/19/18 21:26 Dose: 10 mg Metoprolol Succinate (Toprol Xl -) 100 mg PO DAILY [facility] Nifedipine (Procardia Xl -) 60 mg PO DAILY [facility] Non-Formulary Medication (Empagliflozin [Jardiance]) 10 mg PO DAILY [facility] Ondansetron HCl (Zofran Injection) 4 mg IVPUSH Q6H PRN PRN Reason: NAUSEA AND/OR VOMITING Pantoprazole Sodium (Protonix -) 40 mg PO DAILY [facility] Sodium Bicarbonate (Sodium Bicarbonate -) 650 mg PO BID [facility] Last Admin: 01/19/18 21:26 Dose: 650 mg - Objective Vital Signs: Vital Signs Temperature 97.6 F 01/19/18 15:28 Pulse Rate 64 01/19/18 15:28 Respiratory Rate 18 01/19/18 15:28 Blood Pressure 130/82 01/19/18 15:28 O2 Sat by Pulse Oximetry (%) 96 01/19/18 21:00 Constitutional: Yes: Calm Cardiovascular: Yes: Regular Rate and Rhythm Respiratory: Yes: Regular, CTA Bilaterally Labs: CBC, BMP 01/19/18 08:05 01/19/18 08:05 INR, PTT INR 1.14 (0.82-1.09) 01/19/18 08:10 Problem List - Problems (1) Hematuria Code(s): R31.9 - HEMATURIA, UNSPECIFIED Qualifiers: Hematuria type: gross Qualified Code(s): R31.0 - Gross hematuria (2) UTI (urinary tract infection) Code(s): N39.0 - URINARY TRACT INFECTION, SITE NOT SPECIFIED (3) ARF (acute renal failure) Code(s): N17.9 - ACUTE KIDNEY FAILURE, UNSPECIFIED (4) Hypertension Code(s): I10 - ESSENTIAL (PRIMARY) HYPERTENSION Qualifiers: Hypertension type: other secondary hypertension Qualified Code(s): I15.8 - Other secondary hypertension (5) Diabetes Code(s): E11.9 - TYPE 2 DIABETES MELLITUS WITHOUT COMPLICATIONS (6) Anemia Code(s): D64.9 - ANEMIA, UNSPECIFIED (7) BPH (benign prostatic hyperplasia) Code(s): N40.0 - BENIGN PROSTATIC HYPERPLASIA WITHOUT LOWER URINRY TRACT SYMP (8) HLD (hyperlipidemia) Code(s): E78.5 - HYPERLIPIDEMIA, UNSPECIFIED (9) Abdominal pain Code(s): R10.9 - UNSPECIFIED ABDOMINAL PAIN Assessment/Plan (1) Hematuria Assessment/Plan: s/p cystoscopy, L JJ stent insertion, bladder biopsy and fulguration, attempted R JJ stent insertion Findings: ? recurrent bladder tumor R post wall, R UVJ obstruction, bladder hemorrhage, L hydronephrosis -placement of Rt nephrostomy as per uro (2) UTI (urinary tract infection) Assessment/Plan: Urine culture have been negative IV antibiotics were stopped Code(s): N39.0 - URINARY TRACT INFECTION, SITE NOT SPECIFIED (3) ARF (acute renal failure) Assessment/Plan: Worsening creatinine Cont to monitor Code(s): N17.9 - ACUTE KIDNEY FAILURE, UNSPECIFIED (4) Hypertension Assessment/Plan: BP stable Cont toprol/nifedipine/HCTZ/cozaar Code(s): I10 - ESSENTIAL (PRIMARY) HYPERTENSION Qualifiers: Hypertension type: other secondary hypertension Qualified Code(s): I15.8 - Other secondary hypertension (5) Diabetes Code(s): E11.9 - TYPE 2 DIABETES MELLITUS WITHOUT COMPLICATIONS (6) Anemia Code(s): D64.9 - ANEMIA, UNSPECIFIED (7) BPH (benign prostatic hyperplasia) Code(s): N40.0 - BENIGN PROSTATIC HYPERPLASIA WITHOUT LOWER URINRY TRACT SYMP (8) HLD (hyperlipidemia) Code(s): E78.5 - HYPERLIPIDEMIA, UNSPECIFIED (9) Abdominal pain Code(s): R10.9 - UNSPECIFIED ABDOMINAL PAIN
[2018-01-20] MEDS: INSULIN SLIDING SCALE (NOVOLOG) 1 VIAL SQ SCH ×4 (06:21→21:39)
[2018-01-20] MEDS: METOCLOPRAMIDE HCL INJECTION 10 MG/2 ML VIAL IVPUSH SCH ×3 (06:21→21:39)
[2018-01-20] MEDS: DOCUSATE SODIUM 100 MG CAPSULE (FP) PO SCH ×3 (06:21→21:39)
[2018-01-20] MEDS ORDERED: INSULIN (NOVOLOG) ASPART 100 UNITS/ML 10ML VIAL ONE (06:47)
[2018-01-20 07:31] LABS: ANION GAP 12 (8-16); BLOOD UREA NITROGEN 66 mg/dL (7-18); CALCIUM 8.1 mg/dL (8.5-10.1); CHLORIDE 109 mmol/L (98-107); CO2 18 mmol/L (21-32); GLUCOSE,RANDOM 131 mg/dL (74-106); POTASSIUM 4.4 mmol/L (3.5-5.1); SODIUM 139 mmol/L (136-145)
[2018-01-20 07:37] LABS: ALK PHOS 328 U/L (45-117); BASO % 0.7 % (0-2.0); BILIRUBIN,TOTAL 0.8 mg/dL (0.2-1.0); EOS % 1.1 % (0-4.5); HEMATOCRIT 28.2 % (35.4-49); HEMOGLOBIN 9.1 GM/dL (11.7-16.9); LYMPH % 9.9 % (8-40); MCHC 32.4 g/dl (32.0-35.9); MEAN CELL VOLUME 61.8 fl (80-96); MEAN PLT VOLUME 9.5 fl (7.5-11.1); MONO % 7.4 % (3.8-10.2); NEUT % 80.9 % (42.8-82.8); PLATELET COUNT 255 K/MM3 (134-434); RBC 4.56 M/mm3 (4.00-5.60); RDW 17.9 % (11.9-15.9); SGOT/AST 16 U/L (15-37); SGPT/ALT 23 U/L (12-78); TOT PROT 6.5 g/dl (6.4-8.2); WHITE BLOOD COUNT 7.2 K/mm3 (4.0-10.0)
--- NOTE | 2018-01-20 09:00 | PN ---
Progress Note (short form) - Note Progress Note: doing better s/p L JJ stent insertion, rahamn w clear cbi, creat down to 3. will dc cbi. await R nephrostomy and bladder bx pathology Problem List - Problems (1) Hydronephrosis Code(s): N13.30 - UNSPECIFIED HYDRONEPHROSIS (2) KARTHIKEYAN (acute kidney injury) Code(s): N17.9 - ACUTE KIDNEY FAILURE, UNSPECIFIED (3) Hematuria Code(s): R31.9 - HEMATURIA, UNSPECIFIED Qualifiers: Hematuria type: gross Qualified Code(s): R31.0 - Gross hematuria (4) History of bladder cancer Code(s): Z85.51 - PERSONAL HISTORY OF MALIGNANT NEOPLASM OF BLADDER (5) Bladder cancer Code(s): C67.9 - MALIGNANT NEOPLASM OF BLADDER, UNSPECIFIED
[2018-01-20] MEDS ORDERED: PT OWN MED DRAWER 7, Y5N ONE (09:15)
[2018-01-20] MEDS: PANTOPRAZOLE 40 MG TABLET (FP) PO SCH (09:25)
[2018-01-20] MEDS: SODIUM BICARBONATE 650 MG TABLET PO SCH ×2 (09:26→21:40)
[2018-01-20] MEDS: NIFEdipine E.R 60 MG TABLET (UD) PO SCH (09:26)
[2018-01-20] MEDS ORDERED: PATIENT'S OWN MEDICATION (NON-FORMULARY) (Empagliflozin [Jardiance] 10 MG) PO SCH (10:00)
[2018-01-20] MEDS ORDERED: MIDAZOLAM HCL 2 MG/2 ML SINGLE DOSE VIAL IVPUSH ONE (10:45)
[2018-01-20] MEDS: Methylnaltrexone Bromide 12 MG/0.6 ML KIT SQ SCH (12:04)
[2018-01-20] MEDS: SODIUM CHLORIDE 0.45% 1,000 ML IV SCH ×2 (12:05→21:41)
--- NOTE | 2018-01-20 14:45 | PN ---
Progress Note (short form) - Note Progress Note: Anesthesia POD#1 S/P Cysto, Retrograde Pyelogram Left Ureteral Stent Placement under GA VSS,creatinine is down,no N/V. Feeling better. No complications to anesthesia seen. Juana Gan MD.
--- NOTE | 2018-01-20 14:53 | PN ---
Progress Note (short form) - Note Progress Note: Renal follow up for KARTHIKEYAN Pt seen and examined at the bedside no acute complaints no sob, chest pain, abd pain Vital Signs Temperature 98.1 F 01/20/18 09:15 Pulse Rate 52 L 01/20/18 10:22 Respiratory Rate 12 01/20/18 10:22 Blood Pressure 156/88 01/20/18 10:22 O2 Sat by Pulse Oximetry (%) 100 01/20/18 10:22 Intake & Output 01/17/18 01/18/18 01/19/18 01/20/18 23:59 23:59 23:59 23:59 Intake Total 2678 2750 9660 6660 Output Total 770 037 7681 6000 Balance 1938 2300 360 660 NAD MMM, no JVD, neck supple RRR, no M/R CTA soft, obese, mild distension Trace LE edema, no clubbing or cyanosis CBC, BMP 01/20/18 06:55 01/20/18 06:55 Laboratory Tests 01/20/18 06:55 Calcium 8.1 L Albumin 3.0 L Current Medications Acetaminophen (Tylenol -) 650 mg PO Q6H PRN PRN Reason: PAIN SCALE 6-10 Docusate Sodium (Colace -) 100 mg PO TID [facility] Last Admin: 01/20/18 14:45 Dose: 100 mg Finasteride (Proscar -) 5 mg PO HS [facility] Last Admin: 01/19/18 21:26 Dose: 5 mg Sodium Chloride (1/2 Normal Saline) 1,000 mls @ 150 mls/hr IV ASDIR [facility] Last Admin: 01/20/18 12:05 Dose: 150 mls/hr Insulin Aspart (Novolog Vial Sliding Scale -) 1 vial SQ ACHS [facility] PRN Reason: Protocol Last Admin: 01/20/18 12:09 Dose: 2 units Methylnaltrexone [place] (Relistor -) 6 mg SQ Q2D@1000 [facility] Last Admin: 01/20/18 12:04 Dose: 6 mg Metoclopramide HCl (Reglan Injection -) 10 mg IVPUSH Q8H [facility] Last Admin: 01/20/18 14:44 Dose: 10 mg Metoprolol Succinate (Toprol Xl -) 100 mg PO DAILY [facility] Last Admin: 01/20/18 09:26 Dose: 100 mg Nifedipine (Procardia Xl -) 60 mg PO DAILY [facility] Last Admin: 01/20/18 09:26 Dose: 60 mg Non-Formulary Medication (Empagliflozin [Jardiance]) 10 mg PO DAILY [facility] Ondansetron HCl (Zofran Injection) 4 mg IVPUSH Q6H PRN PRN Reason: NAUSEA AND/OR VOMITING Pantoprazole Sodium (Protonix -) 40 mg PO DAILY [facility] Last Admin: 01/20/18 09:25 Dose: 40 mg Sodium Bicarbonate (Sodium Bicarbonate -) 650 mg PO BID [facility] Last Admin: 01/20/18 09:26 Dose: 650 mg 77 year old gentleman with PMhx of Bladder Tumor s/p resection, Hypertension, HLD who presented with complaints of abd pain and hematuria and found to have KARTHIKEYAN. #KARTHIKEYAN secondary to obstruction at the level of the bladder #Hematuria #Hx of bladder tumor #Hypertension #Metabolic acidosis #Hyponatremia #Anemia Cr improving s/p stent placement pt is polyuric, start 1/2 NS at 100cc per hour trend renal function and electrolytes continue sodium bicarbonate continue current meds for hypertension (monitor for hypotension as pt is polyuric) Thank you Shalom Alarcon DO
--- NOTE | 2018-01-20 14:55 | PN ---
Progress Note, Physician History of Present Illness: doing well fulgration done in bladder left side stent placed nephrostomy tube - Current Medication List Current Medications: Active Medications Acetaminophen (Tylenol -) 650 mg PO Q6H PRN PRN Reason: PAIN SCALE 6-10 Docusate Sodium (Colace -) 100 mg PO TID [facility] Last Admin: 01/20/18 14:45 Dose: 100 mg Finasteride (Proscar -) 5 mg PO HS [facility] Last Admin: 01/19/18 21:26 Dose: 5 mg Sodium Chloride (1/2 Normal Saline) 1,000 mls @ 150 mls/hr IV ASDIR [facility] Last Admin: 01/20/18 12:05 Dose: 150 mls/hr Insulin Aspart (Novolog Vial Sliding Scale -) 1 vial SQ ACHS [facility] PRN Reason: Protocol Last Admin: 01/20/18 12:09 Dose: 2 units Methylnaltrexone [place] (Relistor -) 6 mg SQ Q2D@1000 [facility] Last Admin: 01/20/18 12:04 Dose: 6 mg Metoclopramide HCl (Reglan Injection -) 10 mg IVPUSH Q8H [facility] Last Admin: 01/20/18 14:44 Dose: 10 mg Metoprolol Succinate (Toprol Xl -) 100 mg PO DAILY [facility] Last Admin: 01/20/18 09:26 Dose: 100 mg Nifedipine (Procardia Xl -) 60 mg PO DAILY [facility] Last Admin: 01/20/18 09:26 Dose: 60 mg Non-Formulary Medication (Empagliflozin [Jardiance]) 10 mg PO DAILY [facility] Ondansetron HCl (Zofran Injection) 4 mg IVPUSH Q6H PRN PRN Reason: NAUSEA AND/OR VOMITING Pantoprazole Sodium (Protonix -) 40 mg PO DAILY [facility] Last Admin: 01/20/18 09:25 Dose: 40 mg Sodium Bicarbonate (Sodium Bicarbonate -) 650 mg PO BID [facility] Last Admin: 01/20/18 09:26 Dose: 650 mg - Objective Vital Signs: Vital Signs Temperature 98.1 F 01/20/18 09:15 Pulse Rate 52 L 01/20/18 10:22 Respiratory Rate 12 01/20/18 10:22 Blood Pressure 156/88 01/20/18 10:22 O2 Sat by Pulse Oximetry (%) 100 01/20/18 10:22 Constitutional: Yes: No Distress, Calm Cardiovascular: Yes: Regular Rate and Rhythm Respiratory: Yes: Regular, CTA Bilaterally Gastrointestinal: Yes: Normal Bowel Sounds, Soft Genitourinary: Yes: Other (rt sided nephrostomy) Musculoskeletal: Yes: WNL Extremities: Yes: WNL Neurological: Yes: Alert, Oriented Psychiatric: Yes: Alert, Oriented Labs: CBC, BMP 01/20/18 06:55 01/20/18 06:55 INR, PTT INR 1.14 (0.82-1.09) 01/19/18 08:10 Assessment/Plan patient with multiple medical problems admitted with hematuria and constipation currently stable c/o abd distension abd distension hematuria lactic acidosis arf plan stable off of abx await for final plan rest continue current mgmt patient still with hematuria
[2018-01-20] MEDS: ACETAMINOPHEN 325 MG TABLET (FP) PO PRN (18:21)
[2018-01-20 18:28] LABS: ANION GAP 14 (8-16); BLOOD UREA NITROGEN 49 mg/dL (7-18); CALCIUM 8.3 mg/dL (8.5-10.1); CHLORIDE 106 mmol/L (98-107); CO2 19 mmol/L (21-32); GLUCOSE,RANDOM 232 mg/dL (74-106); POTASSIUM 4.6 mmol/L (3.5-5.1); SGPT/ALT 29 U/L (12-78); SODIUM 139 mmol/L (136-145)
[2018-01-20 18:31] LABS: ALK PHOS 485 U/L (45-117); BILIRUBIN,TOTAL 0.7 mg/dL (0.2-1.0); SGOT/AST 38 U/L (15-37); TOT PROT 6.8 g/dl (6.4-8.2)
[2018-01-20] MEDS: FINASTERIDE 5 MG TABLET (FP) PO SCH (21:40)
[2018-01-20] MEDS: ZOLPIDEM TARTRATE 5 MG TABLET PO PRN (23:02)
--- NOTE | 2018-01-20 23:48 | PN ---
Progress Note, Physician History of Present Illness: No new complaints - Current Medication List Current Medications: Active Medications Acetaminophen (Tylenol -) 650 mg PO Q6H PRN PRN Reason: PAIN SCALE 6-10 Last Admin: 01/20/18 18:21 Dose: 650 mg Docusate Sodium (Colace -) 100 mg PO TID [facility] Last Admin: 01/20/18 21:39 Dose: 100 mg Finasteride (Proscar -) 5 mg PO HS [facility] Last Admin: 01/20/18 21:40 Dose: 5 mg Sodium Chloride (1/2 Normal Saline) 1,000 mls @ 150 mls/hr IV ASDIR [facility] Last Admin: 01/20/18 21:41 Dose: 150 mls/hr Insulin Aspart (Novolog Vial Sliding Scale -) 1 vial SQ ACHS [facility] PRN Reason: Protocol Last Admin: 01/20/18 21:39 Dose: Not Given Methylnaltrexone [place] (Relistor -) 6 mg SQ Q2D@1000 [facility] Last Admin: 01/20/18 12:04 Dose: 6 mg Metoclopramide HCl (Reglan Injection -) 10 mg IVPUSH Q8H [facility] Last Admin: 01/20/18 21:39 Dose: 10 mg Metoprolol Succinate (Toprol Xl -) 100 mg PO DAILY [facility] Last Admin: 01/20/18 09:26 Dose: 100 mg Nifedipine (Procardia Xl -) 60 mg PO DAILY [facility] Last Admin: 01/20/18 09:26 Dose: 60 mg Non-Formulary Medication (Empagliflozin [Jardiance]) 10 mg PO DAILY [facility] Ondansetron HCl (Zofran Injection) 4 mg IVPUSH Q6H PRN PRN Reason: NAUSEA AND/OR VOMITING Pantoprazole Sodium (Protonix -) 40 mg PO DAILY [facility] Last Admin: 01/20/18 09:25 Dose: 40 mg Sodium Bicarbonate (Sodium Bicarbonate -) 650 mg PO BID [facility] Last Admin: 01/20/18 21:40 Dose: 650 mg Zolpidem Tartrate (Ambien -) 5 mg PO HS PRN PRN Reason: INSOMNIA Last Admin: 01/20/18 23:02 Dose: 5 mg - Objective Vital Signs: Vital Signs Temperature 98.2 F 01/20/18 18:30 Pulse Rate 74 01/20/18 18:30 Respiratory Rate 18 04/06/18 18:30 Blood Pressure 128/64 01/20/18 18:30 O2 Sat by Pulse Oximetry (%) 98 01/20/18 12:15 Constitutional: Yes: No Distress Neck: Yes: Trachea Midline Cardiovascular: Yes: Regular Rate and Rhythm Respiratory: Yes: Regular, CTA Bilaterally Labs: CBC, BMP 01/20/18 06:55 01/20/18 17:00 INR, PTT INR 1.14 (0.82-1.09) 01/19/18 08:10 Problem List - Problems (1) Hematuria Code(s): R31.9 - HEMATURIA, UNSPECIFIED Qualifiers: Hematuria type: gross Qualified Code(s): R31.0 - Gross hematuria (2) UTI (urinary tract infection) Code(s): N39.0 - URINARY TRACT INFECTION, SITE NOT SPECIFIED (3) ARF (acute renal failure) Code(s): N17.9 - ACUTE KIDNEY FAILURE, UNSPECIFIED (4) Hypertension Code(s): I10 - ESSENTIAL (PRIMARY) HYPERTENSION Qualifiers: Hypertension type: other secondary hypertension Qualified Code(s): I15.8 - Other secondary hypertension (5) Diabetes Code(s): E11.9 - TYPE 2 DIABETES MELLITUS WITHOUT COMPLICATIONS (6) Anemia Code(s): D64.9 - ANEMIA, UNSPECIFIED (7) BPH (benign prostatic hyperplasia) Code(s): N40.0 - BENIGN PROSTATIC HYPERPLASIA WITHOUT LOWER URINRY TRACT SYMP (8) HLD (hyperlipidemia) Code(s): E78.5 - HYPERLIPIDEMIA, UNSPECIFIED (9) Abdominal pain Code(s): R10.9 - UNSPECIFIED ABDOMINAL PAIN Assessment/Plan (1) Hematuria Assessment/Plan: s/p cystoscopy, L JJ stent insertion, bladder biopsy and fulguration, attempted R JJ stent insertion Findings: ? recurrent bladder tumor R post wall, R UVJ obstruction, bladder hemorrhage, L hydronephrosis -placement of Rt nephrostomy as per uro (2) UTI (urinary tract infection) Assessment/Plan: Urine culture have been negative Code(s): N39.0 - URINARY TRACT INFECTION, SITE NOT SPECIFIED (3) ARF (acute renal failure) Assessment/Plan: Worsening creatinine Cont to monitor Code(s): N17.9 - ACUTE KIDNEY FAILURE, UNSPECIFIED (4) Hypertension Assessment/Plan: BP stable Cont toprol/nifedipine/HCTZ/cozaar Code(s): I10 - ESSENTIAL (PRIMARY) HYPERTENSION Qualifiers: Hypertension type: other secondary hypertension Qualified Code(s): I15.8 - Other secondary hypertension (5) Diabetes Code(s): E11.9 - TYPE 2 DIABETES MELLITUS WITHOUT COMPLICATIONS (6) Anemia Code(s): D64.9 - ANEMIA, UNSPECIFIED (7) BPH (benign prostatic hyperplasia) Code(s): N40.0 - BENIGN PROSTATIC HYPERPLASIA WITHOUT LOWER URINRY TRACT SYMP (8) HLD (hyperlipidemia) Code(s): E78.5 - HYPERLIPIDEMIA, UNSPECIFIED (9) Abdominal pain Code(s): R10.9 - UNSPECIFIED ABDOMINAL PAIN
[2018-01-21] MEDS: SODIUM CHLORIDE 0.45% 1,000 ML IV SCH ×3 (02:47→13:48)
[2018-01-21] MEDS: METOCLOPRAMIDE HCL INJECTION 10 MG/2 ML VIAL IVPUSH SCH ×3 (06:26→21:22)
[2018-01-21] MEDS: DOCUSATE SODIUM 100 MG CAPSULE (FP) PO SCH ×3 (06:26→21:22)
[2018-01-21] MEDS: INSULIN SLIDING SCALE (NOVOLOG) 1 VIAL SQ SCH ×4 (06:27→22:57)
[2018-01-21] MEDS: ACETAMINOPHEN 325 MG TABLET (FP) PO PRN (07:14)
[2018-01-21 08:06] LABS: MAGNESIUM 1.9 mg/dL (1.8-2.4); PHOSPHOROUS 2.6 mg/dL (2.5-4.9)
[2018-01-21] MEDS: SODIUM BICARBONATE 650 MG TABLET PO SCH ×2 (09:35→21:24)
[2018-01-21] MEDS: NIFEdipine E.R 60 MG TABLET (UD) PO SCH (09:35)
[2018-01-21] MEDS: PANTOPRAZOLE 40 MG TABLET (FP) PO SCH (09:36)
--- NOTE | 2018-01-21 11:54 | PN ---
Progress Note, Physician History of Present Illness: doing well fulgration done in bladder left side stent placed nephrostomy tube on right patient has developed small pustules over the sacral region - Current Medication List Current Medications: Active Medications Acetaminophen (Tylenol -) 650 mg PO Q6H PRN PRN Reason: PAIN SCALE 6-10 Last Admin: 01/21/18 07:14 Dose: 650 mg Docusate Sodium (Colace -) 100 mg PO TID [facility] Last Admin: 01/21/18 06:26 Dose: 100 mg Finasteride (Proscar -) 5 mg PO HS [facility] Last Admin: 01/20/18 21:40 Dose: 5 mg Sodium Chloride (1/2 Normal Saline) 1,000 mls @ 150 mls/hr IV ASDIR [facility] Last Admin: 01/21/18 09:39 Dose: 150 mls/hr Insulin Aspart (Novolog Vial Sliding Scale -) 1 vial SQ ACHS [facility] PRN Reason: Protocol Last Admin: 01/21/18 11:46 Dose: 2 units Methylnaltrexone [place] (Relistor -) 6 mg SQ Q2D@1000 [facility] Last Admin: 01/20/18 12:04 Dose: 6 mg Metoclopramide HCl (Reglan Injection -) 10 mg IVPUSH Q8H [facility] Last Admin: 01/21/18 06:26 Dose: 10 mg Metoprolol Succinate (Toprol Xl -) 100 mg PO DAILY [facility] Last Admin: 01/21/18 09:36 Dose: 100 mg Nifedipine (Procardia Xl -) 60 mg PO DAILY [facility] Last Admin: 01/21/18 09:35 Dose: 60 mg Non-Formulary Medication (Empagliflozin [Jardiance]) 10 mg PO DAILY [facility] Ondansetron HCl (Zofran Injection) 4 mg IVPUSH Q6H PRN PRN Reason: NAUSEA AND/OR VOMITING Pantoprazole Sodium (Protonix -) 40 mg PO DAILY [facility] Last Admin: 01/21/18 09:36 Dose: 40 mg Sodium Bicarbonate (Sodium Bicarbonate -) 650 mg PO BID [facility] Last Admin: 01/21/18 09:35 Dose: 650 mg Zolpidem Tartrate (Ambien -) 5 mg PO HS PRN PRN Reason: INSOMNIA Last Admin: 01/20/18 23:02 Dose: 5 mg - Objective Vital Signs: Vital Signs Temperature 98 F 01/21/18 07:40 Pulse Rate 59 L 01/21/18 07:40 Respiratory Rate 20 01/21/18 07:40 Blood Pressure 92/59 01/21/18 07:40 O2 Sat by Pulse Oximetry (%) 98 01/20/18 21:00 Constitutional: Yes: No Distress, Calm HENT: Yes: Atraumatic Neck: Yes: Supple, Trachea Midline Cardiovascular: Yes: Regular Rate and Rhythm Respiratory: Yes: Regular, CTA Bilaterally Gastrointestinal: Yes: Normal Bowel Sounds, Soft Genitourinary: Yes: Other (rt sided nephrostomy tube,urine clearing up) Integumentary: Yes: Erythema, Other (small pustules with erythema on the sacral region) Neurological: Yes: Alert, Oriented Psychiatric: Yes: Alert, Oriented Labs: CBC, BMP 01/20/18 06:55 01/20/18 17:00 INR, PTT INR 1.14 (0.82-1.09) 01/19/18 08:10 Assessment/Plan patient with multiple medical problems admitted with hematuria and constipation currently stable c/o abd distension abd distension hematuria lactic acidosis arf plan stable off of abx await for final plan rest continue current mgmt hematuria has improved will start doxy on the patient
--- NOTE | 2018-01-21 13:05 | PN ---
Progress Note (short form) - Note Progress Note: Renal follow up for KARTHIKEYAN Pt seen and examined at the bedside making urine via nephrostomy and rahman no acute complaints no sob, chest pain nurse noted lesions on sacrum Vital Signs Temperature 98 F 01/21/18 07:40 Pulse Rate 59 L 01/21/18 07:40 Respiratory Rate 20 01/21/18 07:40 Blood Pressure 92/59 01/21/18 07:40 O2 Sat by Pulse Oximetry (%) 98 01/20/18 21:00 Intake & Output 01/18/18 01/19/18 01/20/18 01/21/18 23:59 23:59 23:59 23:59 Intake Total 2750 9660 9074 3280 Output Total 450 9300 43760 2650 Balance 2300 360 -3676 630 NAD MMM, no JVD, neck supple RRR, no M/R CTA soft, obese, mild distension Trace LE edema, no clubbing or cyanosis erythematous lesions on sacrum, non-tender, extrends across midline CBC, BMP 01/20/18 06:55 01/20/18 17:00 Current Medications Acetaminophen (Tylenol -) 650 mg PO Q6H PRN PRN Reason: PAIN SCALE 6-10 Last Admin: 01/21/18 07:14 Dose: 650 mg Docusate Sodium (Colace -) 100 mg PO TID [facility] Last Admin: 01/21/18 06:26 Dose: 100 mg Doxycycline Hyclate (Vibramycin -) 100 mg PO BID@1000,1800 [facility] Finasteride (Proscar -) 5 mg PO HS [facility] Last Admin: 01/20/18 21:40 Dose: 5 mg Sodium Chloride (1/2 Normal Saline) 1,000 mls @ 150 mls/hr IV ASDIR [facility] Last Admin: 01/21/18 09:39 Dose: 150 mls/hr Insulin Aspart (Novolog Vial Sliding Scale -) 1 vial SQ ACHS [facility] PRN Reason: Protocol Last Admin: 01/21/18 11:46 Dose: 2 units Methylnaltrexone [place] (Relistor -) 6 mg SQ Q2D@1000 [facility] Last Admin: 01/20/18 12:04 Dose: 6 mg Metoclopramide HCl (Reglan Injection -) 10 mg IVPUSH Q8H [facility] Last Admin: 01/21/18 06:26 Dose: 10 mg Metoprolol Succinate (Toprol Xl -) 100 mg PO DAILY [facility] Last Admin: 01/21/18 09:36 Dose: 100 mg Nifedipine (Procardia Xl -) 60 mg PO DAILY [facility] Last Admin: 01/21/18 09:35 Dose: 60 mg Non-Formulary Medication (Empagliflozin [Jardiance]) 10 mg PO DAILY [facility] Ondansetron HCl (Zofran Injection) 4 mg IVPUSH Q6H PRN PRN Reason: NAUSEA AND/OR VOMITING Pantoprazole Sodium (Protonix -) 40 mg PO DAILY [facility] Last Admin: 01/21/18 09:36 Dose: 40 mg Sodium Bicarbonate (Sodium Bicarbonate -) 650 mg PO BID [facility] Last Admin: 01/21/18 09:35 Dose: 650 mg Zolpidem Tartrate (Ambien -) 5 mg PO HS PRN PRN Reason: INSOMNIA Last Admin: 01/20/18 23:02 Dose: 5 mg 77 year old gentleman with PMhx of Bladder Tumor s/p resection, Hypertension, HLD who presented with complaints of abd pain and hematuria and found to have KARTHIKEYAN. #KARTHIKEYAN secondary to obstruction at the level of the bladder #Hematuria #Hx of bladder tumor #Hypertension #Metabolic acidosis #Hyponatremia #Anemia Continue IVF, decrease rate to 100cc per hour off [facility] follow up for nephrostomy and rahman management Trend BUN/Cr and electrolytes continue sodium bicarb decrease nifedpine ER to 30mg Daily Thank you Shalom Alarcon DO
[2018-01-21] MEDS: DOXYCYCLINE HYCLATE 100 MG CAPSULE PO SCH (18:03)
[2018-01-21] MEDS ORDERED: PT OWN MED DRAWER 7, Y5N ONE (18:27)
[2018-01-21] MEDS: FINASTERIDE 5 MG TABLET (FP) PO SCH (21:23)
[2018-01-21] MEDS: ZOLPIDEM TARTRATE 5 MG TABLET PO PRN (22:58)
--- NOTE | 2018-01-21 23:33 | PN ---
Progress Note, Physician History of Present Illness: pt seen at bedside. no new complaints - Current Medication List Current Medications: Active Medications Acetaminophen (Tylenol -) 650 mg PO Q6H PRN PRN Reason: PAIN SCALE 6-10 Last Admin: 01/21/18 07:14 Dose: 650 mg Docusate Sodium (Colace -) 100 mg PO TID [facility] Last Admin: 01/21/18 21:22 Dose: 100 mg Doxycycline Hyclate (Vibramycin -) 100 mg PO BID@1000,1800 [facility] Last Admin: 01/21/18 18:03 Dose: 100 mg Finasteride (Proscar -) 5 mg PO HS [facility] Last Admin: 01/21/18 21:23 Dose: 5 mg Sodium Chloride (1/2 Normal Saline) 1,000 mls @ 150 mls/hr IV ASDIR [facility] Last Admin: 01/21/18 13:48 Dose: 150 mls/hr Insulin Aspart (Novolog Vial Sliding Scale -) 1 vial SQ ACHS [facility] PRN Reason: Protocol Last Admin: 01/21/18 22:57 Dose: Not Given Methylnaltrexone [place] (Relistor -) 6 mg SQ Q2D@1000 [facility] Last Admin: 01/20/18 12:04 Dose: 6 mg Metoclopramide HCl (Reglan Injection -) 10 mg IVPUSH Q8H [facility] Last Admin: 01/21/18 21:22 Dose: 10 mg Metoprolol Succinate (Toprol Xl -) 100 mg PO DAILY [facility] Last Admin: 01/21/18 09:36 Dose: 100 mg Nifedipine (Procardia Xl -) 30 mg PO DAILY [facility] Non-Formulary Medication (Empagliflozin [Jardiance]) 10 mg PO DAILY [facility] Ondansetron HCl (Zofran Injection) 4 mg IVPUSH Q6H PRN PRN Reason: NAUSEA AND/OR VOMITING Pantoprazole Sodium (Protonix -) 40 mg PO DAILY [facility] Last Admin: 01/21/18 09:36 Dose: 40 mg Sodium Bicarbonate (Sodium Bicarbonate -) 650 mg PO BID [facility] Last Admin: 01/21/18 21:24 Dose: 650 mg Zolpidem Tartrate (Ambien -) 5 mg PO HS PRN PRN Reason: INSOMNIA Last Admin: 01/21/18 22:58 Dose: 5 mg - Objective Vital Signs: Vital Signs Temperature 97.4 F L 01/21/18 18:06 Pulse Rate 67 04/07/18 18:06 Respiratory Rate 16 01/21/18 20:49 Blood Pressure 129/74 01/21/18 18:06 O2 Sat by Pulse Oximetry (%) 97 01/21/18 20:49 Constitutional: Yes: No Distress Neck: Yes: Trachea Midline Cardiovascular: Yes: Regular Rate and Rhythm Respiratory: Yes: Regular, CTA Bilaterally Labs: CBC, BMP 01/20/18 06:55 01/20/18 17:00 INR, PTT INR 1.14 (0.82-1.09) 01/19/18 08:10 Problem List - Problems (1) Hematuria Code(s): R31.9 - HEMATURIA, UNSPECIFIED Qualifiers: Hematuria type: gross Qualified Code(s): R31.0 - Gross hematuria (2) UTI (urinary tract infection) Code(s): N39.0 - URINARY TRACT INFECTION, SITE NOT SPECIFIED (3) ARF (acute renal failure) Code(s): N17.9 - ACUTE KIDNEY FAILURE, UNSPECIFIED (4) Hypertension Code(s): I10 - ESSENTIAL (PRIMARY) HYPERTENSION Qualifiers: Hypertension type: other secondary hypertension Qualified Code(s): I15.8 - Other secondary hypertension (5) Diabetes Code(s): E11.9 - TYPE 2 DIABETES MELLITUS WITHOUT COMPLICATIONS (6) Anemia Code(s): D64.9 - ANEMIA, UNSPECIFIED (7) BPH (benign prostatic hyperplasia) Code(s): N40.0 - BENIGN PROSTATIC HYPERPLASIA WITHOUT LOWER URINRY TRACT SYMP (8) HLD (hyperlipidemia) Code(s): E78.5 - HYPERLIPIDEMIA, UNSPECIFIED (9) Abdominal pain Code(s): R10.9 - UNSPECIFIED ABDOMINAL PAIN Assessment/Plan (1) Hematuria Assessment/Plan: Cystoscopy and stent placement Nephrostomy tube placement As uro pt to be dc'ed in [facility] and will need f/u w/ uro for outpt nephrostogram and antegrade R JJ stent insertion by IR maintain L JJ stent Code(s): R31.9 - HEMATURIA, UNSPECIFIED Qualifiers: Hematuria type: gross Qualified Code(s): R31.0 - Gross hematuria (2) UTI (urinary tract infection) Assessment/Plan: Urine culture have been negative Code(s): N39.0 - URINARY TRACT INFECTION, SITE NOT SPECIFIED (3) ARF (acute renal failure) Assessment/Plan: Code(s): N17.9 - ACUTE KIDNEY FAILURE, UNSPECIFIED (4) Hypertension Assessment/Plan: BP stable Cont toprol/nifedipine/HCTZ/cozaar Code(s): I10 - ESSENTIAL (PRIMARY) HYPERTENSION Qualifiers: Hypertension type: other secondary hypertension Qualified Code(s): I15.8 - Other secondary hypertension (5) Diabetes Assessment/Plan: Cont sliding scal w/ coverage Code(s): E11.9 - TYPE 2 DIABETES MELLITUS WITHOUT COMPLICATIONS (6) Anemia Code(s): D64.9 - ANEMIA, UNSPECIFIED (7) BPH (benign prostatic hyperplasia) Code(s): N40.0 - BENIGN PROSTATIC HYPERPLASIA WITHOUT LOWER URINRY TRACT SYMP (8) HLD (hyperlipidemia) Code(s): E78.5 - HYPERLIPIDEMIA, UNSPECIFIED (9) Abdominal pain Assessment/Plan: Due to ileus Improved DC relistor Code(s): R10.9 - UNSPECIFIED ABDOMINAL PAIN
[2018-01-22] MEDS: ACETAMINOPHEN 325 MG TABLET (FP) PO PRN ×2 (02:00→13:32)
[2018-01-22] MEDS: DOCUSATE SODIUM 100 MG CAPSULE (FP) PO SCH ×3 (05:58→21:22)
[2018-01-22] MEDS: METOCLOPRAMIDE HCL INJECTION 10 MG/2 ML VIAL IVPUSH SCH ×2 (05:58→14:48)
[2018-01-22] MEDS: INSULIN SLIDING SCALE (NOVOLOG) 1 VIAL SQ SCH ×4 (06:36→21:23)
[2018-01-22 07:21] LABS: EOS % 2.5 % (0-4.5); HEMATOCRIT 26.3 % (35.4-49); HEMOGLOBIN 8.4 GM/dL (11.7-16.9); LYMPH % 21.2 % (8-40); MCHC 32.1 g/dl (32.0-35.9); MEAN PLT VOLUME 8.5 fl (7.5-11.1); MONO % 7.2 % (3.8-10.2); NEUT % 68.1 % (42.8-82.8); PLATELET COUNT 244 K/MM3 (134-434); RBC 4.23 M/mm3 (4.00-5.60); RDW 17.6 % (11.9-15.9); WHITE BLOOD COUNT 6.5 K/mm3 (4.0-10.0)
[2018-01-22 07:45] LABS: ANION GAP 11 (8-16); BLOOD UREA NITROGEN 15 mg/dL (7-18); CALCIUM 8.2 mg/dL (8.5-10.1); CHLORIDE 108 mmol/L (98-107); CO2 21 mmol/L (21-32); CREATININE 0.9 mg/dL (0.7-1.3); GLUCOSE,RANDOM 113 mg/dL (74-106); MAGNESIUM 1.9 mg/dL (1.8-2.4); PHOSPHOROUS 2.3 mg/dL (2.5-4.9); POTASSIUM 4.1 mmol/L (3.5-5.1); SGOT/AST 28 U/L (15-37); SGPT/ALT 34 U/L (12-78); SODIUM 140 mmol/L (136-145)
[2018-01-22 07:47] LABS: ALK PHOS 428 U/L (45-117); BILIRUBIN,TOTAL 0.7 mg/dL (0.2-1.0); TOT PROT 6.7 g/dl (6.4-8.2)
[2018-01-22 08:19] LABS: MCH 19.9 pg (25.7-33.7)
[2018-01-22] MEDS: SODIUM BICARBONATE 650 MG TABLET PO SCH ×2 (09:25→21:22)
[2018-01-22] MEDS: DOXYCYCLINE HYCLATE 100 MG CAPSULE PO SCH ×2 (09:26→17:43)
[2018-01-22] MEDS: PANTOPRAZOLE 40 MG TABLET (FP) PO SCH (09:26)
[2018-01-22] MEDS: NIFEdipine E.R. 30 MG TABLET (FP) PO SCH (09:26)
[2018-01-22] MEDS: SODIUM CHLORIDE 0.45% 1,000 ML IV SCH (09:30)
--- NOTE | 2018-01-22 12:28 | PN ---
JESSICA Mackay Note History of Present Illness: pt w/o c/o, s/p R PCN - Objective Vital Signs: Vital Signs Temperature 98 F 01/22/18 07:14 Pulse Rate 61 01/22/18 07:14 Respiratory Rate 20 01/22/18 07:14 Blood Pressure 103/63 01/22/18 07:14 O2 Sat by Pulse Oximetry (%) 97 01/21/18 20:49 Labs/Additional Data: CBC, BMP 01/22/18 07:05 01/22/18 07:05 INR, PTT INR 1.14 (0.82-1.09) 01/19/18 08:10 Blood Type Blood Type A POSITIVE 01/17/18 22:20 Antibody Screen Negative 01/17/18 22:20 Problem List - Problems (1) Hydronephrosis Assessment/Plan: ok for disch w nephrostomy. f/u for outpt nephrostogram and antegrade R JJ stent insertion by IR, maintain L JJ stent Code(s): N13.30 - UNSPECIFIED HYDRONEPHROSIS (2) KARTHIEKYAN (acute kidney injury) Assessment/Plan: resolved Code(s): N17.9 - ACUTE KIDNEY FAILURE, UNSPECIFIED (3) Hematuria Assessment/Plan: rahman removed for trial of void. OK for disch 01/23. rto 1 week Code(s): R31.9 - HEMATURIA, UNSPECIFIED Qualifiers: Hematuria type: gross Qualified Code(s): R31.0 - Gross hematuria (4) History of bladder cancer Assessment/Plan: awaiting path from bladder bx. f/u out pt Code(s): Z85.51 - PERSONAL HISTORY OF MALIGNANT NEOPLASM OF BLADDER (5) Bladder cancer Code(s): C67.9 - MALIGNANT NEOPLASM OF BLADDER, UNSPECIFIED
--- NOTE | 2018-01-22 14:22 | PN ---
Progress Note, Physician History of Present Illness: stable doing well no hematuria foleys removed sacral pustules improving - Current Medication List Current Medications: Active Medications Acetaminophen (Tylenol -) 650 mg PO Q6H PRN PRN Reason: PAIN SCALE 6-10 Last Admin: 01/22/18 13:32 Dose: 650 mg Docusate Sodium (Colace -) 100 mg PO TID [facility] Last Admin: 01/22/18 05:58 Dose: 100 mg Doxycycline Hyclate (Vibramycin -) 100 mg PO BID@1000,1800 [facility] Last Admin: 01/22/18 09:26 Dose: 100 mg Finasteride (Proscar -) 5 mg PO HS [facility] Last Admin: 01/21/18 21:23 Dose: 5 mg Sodium Chloride (1/2 Normal Saline) 1,000 mls @ 150 mls/hr IV ASDIR [facility] Last Admin: 01/22/18 09:30 Dose: 150 mls/hr Insulin Aspart (Novolog Vial Sliding Scale -) 1 vial SQ ACHS [facility] PRN Reason: Protocol Last Admin: 01/22/18 11:49 Dose: Not Given Methylnaltrexone [place] (Relistor -) 6 mg SQ Q2D@1000 [facility] Last Admin: 01/20/18 12:04 Dose: 6 mg Metoclopramide HCl (Reglan Injection -) 10 mg IVPUSH Q8H [facility] Last Admin: 01/22/18 05:58 Dose: 10 mg Metoprolol Succinate (Toprol Xl -) 100 mg PO DAILY [facility] Last Admin: 01/22/18 09:25 Dose: 100 mg Nifedipine (Procardia Xl -) 30 mg PO DAILY [facility] Last Admin: 01/22/18 09:26 Dose: 30 mg Non-Formulary Medication (Empagliflozin [Jardiance]) 10 mg PO DAILY [facility] Ondansetron HCl (Zofran Injection) 4 mg IVPUSH Q6H PRN PRN Reason: NAUSEA AND/OR VOMITING Pantoprazole Sodium (Protonix -) 40 mg PO DAILY [facility] Last Admin: 01/22/18 09:26 Dose: 40 mg Sodium Bicarbonate (Sodium Bicarbonate -) 650 mg PO BID [facility] Last Admin: 01/22/18 09:25 Dose: 650 mg Zolpidem Tartrate (Ambien -) 5 mg PO HS PRN PRN Reason: INSOMNIA Last Admin: 01/21/18 22:58 Dose: 5 mg - Objective Vital Signs: Vital Signs Temperature 98 F 01/22/18 07:14 Pulse Rate 60 01/22/18 09:00 Respiratory Rate 18 01/22/18 09:00 Blood Pressure 156/86 01/22/18 09:00 O2 Sat by Pulse Oximetry (%) 97 01/21/18 20:49 Constitutional: Yes: No Distress, Calm Cardiovascular: Yes: Regular Rate and Rhythm Respiratory: Yes: Regular, CTA Bilaterally Gastrointestinal: Yes: Normal Bowel Sounds, Soft Genitourinary: Yes: Other (nephrostomy tube in place) Musculoskeletal: Yes: WNL Extremities: Yes: WNL Integumentary: Yes: Other (sacral pustules improved cellulitis less) Wound/Incision: Yes: Clean/Dry Neurological: Yes: Alert, Oriented Psychiatric: Yes: Alert, Oriented Labs: CBC, BMP 01/22/18 07:05 01/22/18 07:05 INR, PTT INR 1.14 (0.82-1.09) 01/19/18 08:10 Assessment/Plan patient with multiple medical problems admitted with hematuria and constipation currently stable c/o abd distension abd distension hematuria lactic acidosis arf plan continue doxy for another week follow up with urology rest continue current mgmt patient improving
[2018-01-22] MEDS: Methylnaltrexone Bromide 12 MG/0.6 ML KIT SQ SCH (17:09)
[2018-01-22] MEDS ORDERED: PT OWN MED DRAWER 7, Y5N ONE (17:30)
--- NOTE | 2018-01-22 18:42 | PN ---
Progress Note, Physician History of Present Illness: Pt is urinating - Current Medication List Current Medications: Active Medications Acetaminophen (Tylenol -) 650 mg PO Q6H PRN PRN Reason: PAIN SCALE 6-10 Last Admin: 01/22/18 13:32 Dose: 650 mg Docusate Sodium (Colace -) 100 mg PO TID [facility] Last Admin: 01/22/18 14:48 Dose: Not Given Doxycycline Hyclate (Vibramycin -) 100 mg PO BID@1000,1800 [facility] Last Admin: 01/22/18 17:43 Dose: 100 mg Finasteride (Proscar -) 5 mg PO HS [facility] Last Admin: 01/21/18 21:23 Dose: 5 mg Sodium Chloride (1/2 Normal Saline) 1,000 mls @ 150 mls/hr IV ASDIR [facility] Last Admin: 01/22/18 09:30 Dose: 150 mls/hr Insulin Aspart (Novolog Vial Sliding Scale -) 1 vial SQ ACHS [facility] PRN Reason: Protocol Last Admin: 01/22/18 17:43 Dose: 32 units Methylnaltrexone [place] (Relistor -) 6 mg SQ Q2D@1000 [facility] Last Admin: 01/22/18 17:09 Dose: Not Given Metoclopramide HCl (Reglan Injection -) 10 mg IVPUSH Q8H [facility] Last Admin: 01/22/18 14:48 Dose: 10 mg Metoprolol Succinate (Toprol Xl -) 100 mg PO DAILY [facility] Last Admin: 01/22/18 09:25 Dose: 100 mg Nifedipine (Procardia Xl -) 30 mg PO DAILY [facility] Last Admin: 01/22/18 09:26 Dose: 30 mg Non-Formulary Medication (Empagliflozin [Jardiance]) 10 mg PO DAILY [facility] Ondansetron HCl (Zofran Injection) 4 mg IVPUSH Q6H PRN PRN Reason: NAUSEA AND/OR VOMITING Pantoprazole Sodium (Protonix -) 40 mg PO DAILY [facility] Last Admin: 01/22/18 09:26 Dose: 40 mg Sodium Bicarbonate (Sodium Bicarbonate -) 650 mg PO BID [facility] Last Admin: 01/22/18 09:25 Dose: 650 mg Zolpidem Tartrate (Ambien -) 5 mg PO HS PRN PRN Reason: INSOMNIA Last Admin: 01/21/18 22:58 Dose: 5 mg - Objective Vital Signs: Vital Signs Temperature 97.3 F L 04/08/18 17:57 Pulse Rate 67 01/22/18 17:57 Respiratory Rate 20 01/22/18 17:57 Blood Pressure 145/78 01/22/18 17:57 O2 Sat by Pulse Oximetry (%) 98 01/22/18 09:00 Constitutional: Yes: Well Nourished HENT: Yes: WNL Neck: Yes: WNL, Supple Cardiovascular: Yes: WNL, Regular Rate and Rhythm Respiratory: Yes: WNL, Regular, CTA Bilaterally Gastrointestinal: Yes: WNL, Normal Bowel Sounds, Soft, Abdomen, Obese, Other ((+ ) rt sided nephrostomy tube) Labs: CBC, BMP 01/22/18 07:05 01/22/18 07:05 INR, PTT INR 1.14 (0.82-1.09) 01/19/18 08:10 Problem List - Problems (1) Hematuria Assessment/Plan: Cystoscopy and stent placement Nephrostomy tube placement As uro pt to be dc'ed [facility] and will need f/u w/ uro for outpt nephrostogram and antegrade R JJ stent insertion by IR maintain L JJ stent Code(s): R31.9 - HEMATURIA, UNSPECIFIED Qualifiers: Hematuria type: gross Qualified Code(s): R31.0 - Gross hematuria (2) UTI (urinary tract infection) Assessment/Plan: Urine culture have been negative Pt off antibxs Code(s): N39.0 - URINARY TRACT INFECTION, SITE NOT SPECIFIED (3) ARF (acute renal failure) Assessment/Plan: Creatinine is now normal Will dc IVF Code(s): N17.9 - ACUTE KIDNEY FAILURE, UNSPECIFIED (4) Hypertension Assessment/Plan: BP stable Cont toprol/nifedipine/HCTZ/cozaar Code(s): I10 - ESSENTIAL (PRIMARY) HYPERTENSION Qualifiers: Hypertension type: other secondary hypertension Qualified Code(s): I15.8 - Other secondary hypertension (5) Diabetes Assessment/Plan: Cont sliding scal w/ coverage Code(s): E11.9 - TYPE 2 DIABETES MELLITUS WITHOUT COMPLICATIONS (6) Anemia Code(s): D64.9 - ANEMIA, UNSPECIFIED (7) BPH (benign prostatic hyperplasia) Code(s): N40.0 - BENIGN PROSTATIC HYPERPLASIA WITHOUT LOWER URINRY TRACT SYMP (8) HLD (hyperlipidemia) Code(s): E78.5 - HYPERLIPIDEMIA, UNSPECIFIED (9) Abdominal pain Assessment/Plan: Due to ileus Improved DC relistor Code(s): R10.9 - UNSPECIFIED ABDOMINAL PAIN
[2018-01-22] MEDS: FINASTERIDE 5 MG TABLET (FP) PO SCH (21:22)
[2018-01-22] MEDS: ZOLPIDEM TARTRATE 5 MG TABLET PO PRN (22:42)
[2018-01-23] MEDS: DOCUSATE SODIUM 100 MG CAPSULE (FP) PO SCH ×2 (06:30→14:08)
[2018-01-23] MEDS: INSULIN SLIDING SCALE (NOVOLOG) 1 VIAL SQ SCH ×2 (06:30→11:58)
[2018-01-23 09:14] VITALS: BP 147/80; PULSE 68; TEMP 97.1
[2018-01-23] MEDS ORDERED: PT OWN MED DRAWER 7, Y5N ONE (09:36)
[2018-01-23] MEDS: PANTOPRAZOLE 40 MG TABLET (FP) PO SCH (09:51)
[2018-01-23] MEDS: NIFEdipine E.R. 30 MG TABLET (FP) PO SCH (09:51)
[2018-01-23] MEDS: DOXYCYCLINE HYCLATE 100 MG CAPSULE PO SCH (09:51)
[2018-01-23] MEDS: SODIUM BICARBONATE 650 MG TABLET PO SCH (09:51)
--- NOTE | 2018-01-23 14:55 | PATH ---
Surgical Pathology Report Patient Name: MALATHI CHUA JR [facility]. Rec. #: [id number] /Age/Gender: 1940 (Age: 77) / M Account: [id number] Location: [address] [place] [address] Taken: 01/19/2018 Received: 01/20/2018 Reported: 01/23/2018 Physicians: Cristina Underwood M.D. 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 NO FLAT CARCINOMA IN SITU (CIS) IDENTIFIED. Comment: Prior materials are noted. Office of Dr. Morrell informed that significant findings will be faxed ([place]). Electronically Signed Sandi Rose M.D. Addendum Reported: 03/23/2018 Addendum Diagnosis PD-L1 (DAKO 22C3) performed and interpreted at [facility] ([id number]) shows the following: RESULTS: NO PD-L1 expression. Tumor Proportion Score (TPS) Result: 0 Tumor infiltrating Immune cells (TILs) Result: No PD-L1 Expression Staining Distribution: 0-9% Staining Intensity: 0 See Emerge report for additional details ([id number]) Sandi Rose M.D. Gross Description Received in formalin labeled "bladder biopsy," is a 0.9 x 0.6 x 0.2 cm aggregate of stewart-pink soft tissue fragments admixed with mucus. The formalin is filtered and the specimen is entirely submitted in one cassette. /01/20/2018 saudi01/20/2018
--- NOTE | 2018-01-24 09:18 | PATH ---
Cytology Non-Gynecological Report Patient Name: MALATHI CHUA JR [facility]. Rec. #: [id number] /Age/Gender: 1940 (Age: 77) / M Account: [id number] Location: [address] [place] [address] Taken: 01/20/2018 Received: 01/20/2018 Reported: 01/24/2018 Physicians: Cristina Jones M.D. Specimen(s) Received RIGHT NEPHROSTOMY FLUID Clinical History Bladder urothelial carcinoma Final Diagnosis NEPHROSTOMY FLUID, RIGHT, FOR CYTOLOGY: SATISFACTORY FOR EVALUATION NEGATIVE FOR HIGH GRADE UROTHELIAL CARCINOMA. UROTHELIAL CELLS, SCATTERED NEUTROPHILS, RED BLOOD CELLS, AND FEW LYMPHOCYTES PRESENT. Comment: Prior materials are noted. Electronically Signed Sandi Rose M.D. Gross Description Approximately 30 cc of pink fluid received fixed in 50% alcohol. Two cytofunnels and one cellblock prepared.
--- NOTE | 2018-01-29 20:52 | DS ---
Physical Examination Vital Signs: Vital Signs Temperature 97.1 F L 01/23/18 09:14 Pulse Rate 68 01/23/18 09:14 Respiratory Rate 19 01/23/18 09:14 Blood Pressure 147/80 01/23/18 09:14 O2 Sat by Pulse Oximetry (%) 95 01/23/18 09:00 Constitutional: Yes: No Distress Cardiovascular: Yes: Regular Rate and Rhythm Respiratory: Yes: Regular, CTA Bilaterally Gastrointestinal: Yes: Normal Bowel Sounds, Other ((+) rt sided nephrostomy tube ) Labs: CBC, BMP 01/22/18 07:05 01/22/18 07:05 Discharge Summary Reason For Visit: ABD PAIN (1) Hematuria (2) UTI (urinary tract infection) (3) ARF (acute renal failure) (4) Hypertension (5) Diabetes (6) Anemia (7) BPH (benign prostatic hyperplasia) (8) HLD (hyperlipidemia) (9) Abdominal pain Hospital Course: Pt is a 77 y/o male w/ PMH significant for HTN, HLD, diabetes, BPH and bladder tumor. Pt presented to the ER w/ complaints of periumbilical pain and abdominal distension which he described as a sharp. Pt has a h/o bladder tumor resected approximately one year ago and about 1 week ago had an irrigation of his bladder by his urologist Dr Delgadillo. In the ER pt had abdominal xray wc showed ileus and ct scan abd wc showed b/l hydroureteronephrosis/ asymmetric bladder wall thickening/lt perirenal fluid accummulation. Over the course of stay ileus/ abd pain improved, and nephrostomy tube was placed. F/u w/ uro for outpt nephrostogram and antegrade JJ stent insertion. Condition: Good - Instructions Diet, Activity, Other Instructions: 2 gram sodium and 2200 calorie ADA diet See your urologist this week See Dr Andrea Delgadillo this week Referrals: Andrea Delgadillo MD [Primary Care Provider] - Disposition: HOME - Home Medications Comprehensive Discharge Medication List: Ambulatory Orders Aspirin [ASA -] 81 mg PO DAILY 06/01/15 Metformin HCl [Glucophage] 1,000 mg PO BID 06/01/15 Metoprolol Succinate [Toprol XL -] 100 mg PO DAILY 06/01/15 Pantoprazole Sodium [Protonix] 40 mg PO DAILY 08/16/15 Empagliflozin [Jardiance] 10 mg PO DAILY 08/30/17 Finasteride 5 mg PO HS 08/30/17 Nifedipine ER [Procardia XL -] 60 mg PO DAILY 01/10/18 Acetaminophen [Tylenol .Regular Strength -] 650 mg PO Q6H PRN tablet 01/23/18 Docusate Sodium [Colace -] 100 mg PO TID #90 capsule 01/23/18 Doxycycline Hyclate [Vibramycin -] 100 mg PO BID@1000,1800 #20 capsule 01/23/18
== END 2018-01-23 14:32 | disposition home or self-care (01) | DRG 669 ==
LOC: JER 10:48 → JERBED 16:14 → J5S 20:27
PROVIDERS: ADMIT Internal Medicine; ATTEND Internal Medicine
PROC: 0T788DZ Dilation of Bilateral Ureters with Intraluminal Device, Via Natural or Artificial Opening Endoscopic (ICD-10-PCS; 2018-01-19)
PROC: 0TCB8ZZ Extirpation of Matter from Bladder, Via Natural or Artificial Opening Endoscopic (ICD-10-PCS; 2018-01-19)
PROC: BT1FZZZ Fluoroscopy of Left Kidney, Ureter and Bladder (ICD-10-PCS; 2018-01-19)
PROC: 0T5B8ZZ Destruction of Bladder, Via Natural or Artificial Opening Endoscopic (ICD-10-PCS; principal; 2018-01-19 13:30)
PROC: 0TBB8ZX Excision of Bladder, Via Natural or Artificial Opening Endoscopic, Diagnostic (ICD-10-PCS; 2018-01-19 13:30)
DX: N17.9 Acute kidney failure, unspecified (principal); E87.2 Acidosis; E87.1 Hypo-osmolality and hyponatremia; N39.0 Urinary tract infection, site not specified; N13.8 Other obstructive and reflux uropathy; K56.7 Ileus, unspecified; R31.0 Gross hematuria; R14.0 Abdominal distension (gaseous); K59.00 Constipation, unspecified; R10.9 Unspecified abdominal pain; I10 Essential (primary) hypertension; E78.5 Hyperlipidemia, unspecified; E11.9 Type 2 diabetes mellitus without complications; D64.9 Anemia, unspecified; N13.1 Hydronephrosis with ureteral stricture, not elsewhere classified; N40.1 Benign prostatic hyperplasia with lower urinary tract symptoms; Z85.51 Personal history of malignant neoplasm of bladder; Z87.891 Personal history of nicotine dependence
CPT/HCPCS: 36415; 36430; 71045-TC-FY; 74018-TC-FY; 74021-TC-FY; 74176-TC; 75984-TC-FY; 76000-TC-FY; 76098-TC-FY; 76775-TC; 76942-TC; 80048; 80053; 81003; 81015; 82550; 82728; 82962; 83540; 83550; 83605; 83690; 83735; 84100; 84484; 85025; 85610; 86850; 86900; 86901; 86922; 87086; 87102; 87210; 87899; 88108; 88305-TC; 93005; 93010; 94760; 99284-25; A4358; C1769; J1644; J7030; P9038; P9058

== ENCOUNTER 2018-03-03 11:35 | Inpatient (IN) | payer OTHER ==
--- NOTE | 2018-03-03 11:54 | PDOC ---
History of Present Illness - General Chief Complaint: Weakness Stated Complaint: WEAKNESS - History of Present Illness Initial Comments: Patient is a 77 year old male, with a significant past medical history of bladder CA, HTN, NIDDM2, who presents to the emergency department complaining of fever, weakness and N/V. Pt received perc nephrostomy and R ureteral stent by IR 3 days ago due to obstructive uropathy secondary to bladder CA. Pt recently received L sided ureteral stent w/ Dr. Remy Delgadillo +2 weeks ago, but was unable to place a R sided stent, so IR was consulted. Pt has not being urinating fro roughly 2 weeks and has only been draining from the R nephrostomy site, initially red urine after procedure, now clear yellow urine. Last night, pt with poor PO intake, fatigue and N/V. This AM, pt febrile to 102.7 with severe fatigue and lethargy, EMS activated and pt was brought into ED. Pt endorsing mild fever/chills. Denies HAIDER, lightheadness, CP, cough, SOB, abdominal pain, back pain, LE edema, rashes. No recent travel, sick contacts or changes in diet. Urine cultures taken on 02/28 + for ESBL E. Coli. Patient denies chest pain, shortness of breath, headache or dizziness. Denies diarrhea and constipation. Allergies: none Past surgical history: Ureteral stent place on L, biopsy Social History: Former smoker, quit in 1989; denies alcohol, drugs PMD: Dr. Andrea Delgadillo 03/03/18 11:53 Past History - Past Medical History Allergies/Adverse Reactions: Allergies Allergy/AdvReac Type Severity Reaction Status Date / Time No Known Allergies Allergy Verified 03/03/18 12:01 Home Medications: Ambulatory Orders Metformin HCl [Glucophage] 1,000 mg PO BID 06/01/15 Metoprolol Succinate [Toprol XL -] 100 mg PO DAILY 06/01/15 Pantoprazole Sodium [Protonix] 40 mg PO DAILY 06/01/15 Finasteride 5 mg PO DAILY 08/30/17 Nifedipine ER [Procardia XL -] 60 mg PO HS 01/10/18 Aspirin Coated [Ecotrin -] 81 mg PO DAILY 03/03/18 Silodosin [Rapaflo] 8 mg PO DAILY 03/03/18 Zolpidem Tartrate [Ambien] 5 mg PO HS 03/03/18 Anemia: No Asthma: No Cancer: Yes (BLADDER) Cardiac Disorders: No CVA: No COPD: No CHF: No Dementia: No Diabetes: Yes GI Disorders: No Disorders: No HTN: Yes Hypercholesterolemia: No Liver Disease: No Seizures: No Thyroid Disease: No - Surgical History Abdominal Surgery: No Appendectomy: No Cardiac Surgery: No - Suicide/Smoking/Psychosocial Hx Smoking Status: Yes Smoking History: Former smoker Have you smoked in the past 12 months: No Number of Cigarettes Smoked Daily: 0 If you are a former smoker, when did you quit?: 1989 Alcohol Use: Yes (RARE) Drug/Substance Use Hx: No Substance Use Type: None Hx Substance Use Treatment: No Review of Systems - Review of Systems Comments:: GENERAL/CONSTITUTIONAL: +fever/chills, fatigue HEAD, EYES, EARS, NOSE AND THROAT: No change in vision. No ear pain or discharge. No sore throat. CARDIOVASCULAR: No chest pain or shortness of breath RESPIRATORY: No cough, wheezing, or hemoptysis. GASTROINTESTINAL: +N/V, diarrhea or constipation. GENITOURINARY: +hematuria. No flank pain MUSCULOSKELETAL: No joint or muscle swelling or pain. No neck or back pain. SKIN: No rash NEUROLOGIC: No headache, vertigo, loss of consciousness, or change in strength/ sensation. ENDOCRINE: No increased thirst. No abnormal weight change HEMATOLOGIC/LYMPHATIC: No anemia, easy bleeding, or history of blood clots. ALLERGIC/IMMUNOLOGIC: No hives or skin allergy. 03/03/18 11:53 *Physical Exam - Physical Exam Comments: GENERAL: Elderly man, somnolent, NAD, pallor HEAD: No signs of trauma, normocephalic, atraumatic EYES: PERRLA, EOMI, sclera anicteric, conjunctiva clear ENT: Auricles normal inspection, hearing grossly normal, nares patent, oropharynx clear without exudates. Moist mucosa NECK: Normal ROM, supple, no lymphadenopathy, JVD, or masses LUNGS: No distress, speaks full sentences, clear to auscultation bilaterally HEART: Regular rate and rhythm, normal S1 and S2, no murmurs, rubs or gallops, peripheral pulses normal and equal bilaterally. ABDOMEN: R perc nephrostomy in place with surrounding edema. No erythema, purulence or drainage. Soft, nontender, normoactive bowel sounds. No guarding, no rebound. No masses EXTREMITIES : Normal inspection, Normal range of motion, no edema. No clubbing or cyanosis. NEUROLOGICAL: Cranial nerves II through XII grossly intact. Normal speech, normal gait, no focal sensorimotor deficits SKIN: Warm, Dry, normal turgor, no rashes or lesions noted 03/03/18 11:53 ED Treatment Course - LABORATORY CBC & Chemistry Diagram: 03/05/18 05:55 03/05/18 05:55 Medical Decision Making - Medical Decision Making 77 year old male, with a significant past medical history of bladder CA, HTN, NIDDM2, who presents to the emergency department complaining of fever, weakness and N/V. Pt with recent perc nephrostomy and ureteral stent on 02/28. Sepsis secondary to likely urinary source (UTI, pyelonephritis etc..). Urine culture on 02/28 + for E. Coli ESBL. Plan: - CBC, CMP, serial lactic acid, PT/INR - LR bolus - Blood cultures, urine cultures, UA - Vitals q15min - CT A/P - CXR, EKG - Zosyn for abx coverage given sensitivities - cardiac monitoring, pulse ox; O2 tx 03/03/18 13:[address] Andrade, will admit to ICU. Discussed case with Dr. Kapoor, accepted for admission. Will call Dr. Delgadillo for further info. 03/03/18 14:07 *DC/Admit/Observation/Transfer Diagnosis at time of Disposition: Severe sepsis - Referrals - Patient Instructions - Post Discharge Activity
[2018-03-03] MEDS ORDERED: ACETAMINOPHEN 1000 MG/100 ML VIAL (NON FORMULARY) IVPB ONE (12:10)
[2018-03-03] MEDS ORDERED: ACETAMINOPHEN INJECTION 100 ML IVPB ONE (12:10)
[2018-03-03] MEDS ORDERED: SODIUM CHLORIDE 1,000 ML IV STA (12:10)
--- NOTE | 2018-03-03 12:34 | PDOC ---
Attending Attestation - Resident Resident Name: Kanu Rosales - ED Attending Attestation I have performed the following: I have examined & evaluated the patient, The case was reviewed & discussed with the resident, I agree w/resident's findings & plan, Exceptions are as noted - HPI HPI: 03/03/18 12:32 77y xh fbladder ca s/ L& R sided ureteral stent , R sided nephrostomy from 3 days ago presents with malaise/chills since eyserday associated episode of vomiting. Pt notes today he had a fever prior to arrival. pt adanie halie associated abd pain, back pain, cough, sob, cp. states his urine output from nephrostomy was bloody but has cleraed up. GENERAL: The patient is awake, alert, and fully oriented, Nontoxic - in no acute distress. HEAD: Normocephalic, atraumatic. EYES: extraocular movements intact, sclera anicteric, conjunctiva clear. ENT: Normal voice, Moist mucous membranes. NECK: Normal range of motion, supple LUNGS: Breath sounds equal, clear to auscultation bilaterally. No wheezes, no rhonchi, no rales. HEART: Regular rate and rhythm, normal S1 and S2 without murmur, rub or gallop. ABDOMEN: Soft, nontender No guarding, no rebound. right sided nephrostomy output and urine, dressing is clean dry intact, no CVA tenderness bilaterally EXTREMITIES: Normal range of motion, no edema. NEUROLOGICAL: No facial assymetry, Normal speech, PSYCH: Normal mood, normal affect. SKIN: hot to touch, Dry, normal turgor, Patient is noted to be febrile to 104 here, likely septic consider possible urosepsis versus bacteremia secondary to his procedure Sepsis Protocol ordered - Physicial Exam PE: 03/04/18 20:24 sary hernandez - Critical Care Time Total Critical Care Time: 35 Critical Care Statement: The care of this patient involved high complexity decision making to prevent further life threatening deterioration of the patient 's condition and/or to evaluate & treat vital organ system(s) failure or risk of failure. - Medical Decision Making pts lactic acid 3.5 --> will agressive fluid resusitate UA c/w UTI, concern for possible urosepsis w/ possible pyelo/obstruction/ failing stent due to worsening hydro on L side will consult , interventional will admit to ICU for further management pt written for broad spectrum abx Heart Score/ECG Review - ECG Impressions Comment:: 03/03/18 13:22 Twelve-lead EKG was performed and reviewed by me. There is normal sinus rhythm with a normal rate. Rate of 100 Left axis deviation No ST changes suggestive of acute ischemia
[2018-03-03] MEDS ORDERED: PIPERACILLIN/TAZOB 3.375 GM 3.375 GM in DEXTROSE 5%-WATER - 50 ML IVPB ONE (12:37)
[2018-03-03 12:38] LABS: HEMATOCRIT 27.1 % (35.4-49); HEMOGLOBIN 8.6 GM/dL (11.7-16.9); MCHC 31.7 g/dl (32.0-35.9); MEAN CELL VOLUME 60.5 fl (80-96); MEAN PLT VOLUME 9.2 fl (7.5-11.1); PLATELET COUNT 97 K/MM3 (134-434); RBC 4.47 M/mm3 (4.00-5.60); RDW 18.7 % (11.9-15.9); URINE APPEARANCE CLOUDY; URINE BILIRUBIN NEGATIVE (<2.0 mg/dL); URINE COLOR DKYELLOW; URINE GLUCOSE (UA) NEGATIVE (NEGATIVE); URINE KETONE NEGATIVE (NEGATIVE); URINE NITRITE NEGATIVE (NEGATIVE); URINE UROBILINOGEN NEGATIVE mg/dL (0.2-1.0); WHITE BLOOD COUNT 10.8 K/mm3 (4.0-10.0)
[2018-03-03 12:39] LABS: MCH 19.2 pg (25.7-33.7)
[2018-03-03 12:44] LABS: VENOUS PC02 29.1 mmHg (38-52); VENOUS PH 7.41 (7.32-7.42); VENOUS PO2 18.9 mmHg (28-48)
[2018-03-03 12:45] LABS: URINE LEUK ESTERASE 3+ (NEGATIVE); URINE PROTEIN 2+ (NEGATIVE)
[2018-03-03 12:48] LABS: EPI CELLS RARE /HPF (FEW); URINE BACTERIA MANY /hpf (NONE SEEN)
[2018-03-03] MEDS ORDERED: PIPERACILLIN/TAZOB 3.375 GM 3.375 GM/50 ML BAG IVPB ONE (12:53)
[2018-03-03 12:58] LABS: INR 1.63 (0.82-1.09); PROTHROMBIN TIME (PATIENT) 18.4 SEC (9.7-13.0)
[2018-03-03 13:01] LABS: ACTIVATED PTT 28.7 SECONDS (26.9-34.4)
[2018-03-03 13:07] LABS: ALBUMIN 3.3 g/dl (3.4-5.0); ANION GAP 14 (8-16); BILIRUBIN,TOTAL 1.1 mg/dL (0.2-1.0); BLOOD UREA NITROGEN 39 mg/dL (7-18); CALCIUM 8.1 mg/dL (8.5-10.1); CHLORIDE 100 mmol/L (98-107); CO2 19 mmol/L (21-32); CREATININE 3.6 mg/dL (0.7-1.3); GLUCOSE,RANDOM 198 mg/dL (74-106); POTASSIUM 4.3 mmol/L (3.5-5.1); SGOT/AST 15 U/L (15-37); SGPT/ALT 16 U/L (12-78); SODIUM 133 mmol/L (136-145); TOT PROT 6.9 g/dl (6.4-8.2)
[2018-03-03 13:09] LABS: ALK PHOS 143 U/L (45-117)
[2018-03-03 13:17] LABS: OVALOCYTE 1+; PLATELET ESTIMATE DECREASED; TARGET CELLS 1+
[2018-03-03 13:21] LABS: ANISOCYTOSIS 2+
[2018-03-03] MEDS ORDERED: SODIUM CHLORIDE 1,000 ML IV ONE (14:00)
[2018-03-03] MEDS ORDERED: LACTATED RINGERS SOLUTION 1,000 ML/1,000 ML INFUS.BAG IV STA (15:48)
--- NOTE | 2018-03-03 17:13 | CON.ID ---
Consult Consult Specialty:: infectious diseases Reason for Consultation:: sepsis,uti,fever - History of Present Illness Chief Complaint: weakness,fever History of Present Illness: patient in the ICU. This patient well known to me from last admission who was admitted with hematuria . , 77yo male with h/o HTN, DM, liver cirrhosis, recurrent bladder cancer with hydroureteronephrosis s/p left ureteral stent on 01/29, right nephrostomy tube placement 01/30, right JJ anterograde stent 02/28 admitted with fevers and chills. According to the family the fevers came on suddenly which was associated with nausea vomiting . patient spiked to m104 and also on work up patient had lactic acidosis and was in hypotension . patient was given iv fluids and abx Patient was growing from . Urine culture from nephrostomy taken 02/28 ESBL E Coli and enterococcus. ct done shows now showing left hydronephrosis patient is awake and alert - History Source History Provided By: Patient, Family Member Limitations to Obtaining History: No Limitations - Past Medical History Cardio/Vascular: Yes: HTN, Hyperlipdemia Renal/: Yes: BPH, Cancer, Hematuria - Alcohol/Substance Use Hx Alcohol Use: Yes (RARE) - Smoking History Smoking history: Former smoker Have you smoked in the past 12 months: No Aproximately how many cigarettes per day: 0 If you are a former smoker, when did you quit?: 1989 Home Medications - Allergies Allergies/Adverse Reactions: Allergies Allergy/AdvReac Type Severity Reaction Status Date / Time No Known Allergies Allergy Verified 03/03/18 12:01 - Home Medications Home Medications: Ambulatory Orders Metformin HCl [Glucophage] 1,000 mg PO BID 06/01/15 Metoprolol Succinate [Toprol XL -] 100 mg PO DAILY 06/01/15 Pantoprazole Sodium [Protonix] 40 mg PO DAILY 06/01/15 Finasteride 5 mg PO DAILY 08/30/17 Nifedipine ER [Procardia XL -] 60 mg PO HS 01/10/18 Aspirin Coated [Ecotrin -] 81 mg PO DAILY 03/03/18 Silodosin [Rapaflo] 8 mg PO DAILY 03/03/18 Zolpidem Tartrate [Ambien] 5 mg PO HS 03/03/18 Review of Systems - Review of Systems Constitutional: reports: Chills, Fever Cardiovascular: reports: No Symptoms Respiratory: reports: No Symptoms Gastrointestinal: reports: No Symptoms Genitourinary: reports: No Symptoms Musculoskeletal: reports: No Symptoms Integumentary: reports: No Symptoms Neurological: reports: No Symptoms Endocrine: reports: No Symptoms Hematology/Lymphatic: reports: No Symptoms Psychiatric: reports: No Symptoms Physical Exam Vital Signs: Vital Signs Temperature 99.8 F H 03/03/18 16:48 Pulse Rate 104 H 03/03/18 17:13 Respiratory Rate 23 03/03/18 17:13 Blood Pressure 87/65 03/03/18 17:13 O2 Sat by Pulse Oximetry (%) 97 03/03/18 16:48 Constitutional: Yes: No Distress, Calm Eyes: Yes: Conjunctiva Clear Neck: Yes: Supple, Trachea Midline Cardiovascular: Yes: Regular Rate and Rhythm Respiratory: Yes: Regular, CTA Bilaterally Gastrointestinal: Yes: Normal Bowel Sounds, Soft Renal/: Yes: Other (rt sided external nephrostomy tube) Musculoskeletal: Yes: WNL Extremities: Yes: WNL Neurological: Yes: Alert, Oriented Psychiatric: Yes: Alert, Oriented Labs: CBC, BMP 03/03/18 12:12 03/03/18 12:12 Imaging - Results Chest X-ray: Report Reviewed, Image Reviewed Cat Scan: Report Reviewed, Image Reviewed Assessment/Plan ac kidney injury uti lactic acidosis rt nephrostomy tube htn dm cirrhosis of liver plan await for all cx reports gillis tart meropenam and ampicillin patient will need tube replacement urology to see the patient close watch on fevers family in the room d/w the family rest as per icu hydration cc time 45 min
[2018-03-03] MEDS ORDERED: ACETAMINOPHEN 1000 MG/100 ML VIAL (NON FORMULARY) IVPB PRN (17:14)
[2018-03-03] MEDS: SODIUM CHLORIDE 1,000 ML IV SCH (17:25)
[2018-03-03] MEDS ORDERED: ZOLPIDEM TARTRATE 5 MG TABLET PO PRN (17:28)
--- NOTE | 2018-03-03 18:11 | PN ---
Progress Note (short form) - Note Progress Note: Patient arrived from ER. Briefly. 77yo M w/ PMHx Bladder CA and recent uro procedures, complains of fevers and chills, admitted for sepsis from likely urinary tract source. Hemodynamically stable on arrival. Afebrile. MAPs 65-70. Patient seen and examined. No complaints. Discussed w/ Dr Nino about abx. Started on Ertapenem + Ampicillin renally dosed. Continued fluids. Call placed to Urology. Full note to follow.
[2018-03-03] MEDS: ERTAPENEM SODIUM 0.5 GM in SODIUM CHLORIDE 50 ML IVPB SCH (18:17)
[2018-03-03] MEDS: AMPICILLIN IVPB SCH (18:27)
[2018-03-03] MEDS: SODIUM CHLORIDE IVPB SCH (18:27)
[2018-03-03] MEDS ORDERED: INSULIN SLIDING SCALE (NOVOLOG) 1 VIAL SQ SCH (19:15)
--- NOTE | 2018-03-03 20:41 | CONSULT ---
Consultation: ICU CONSULT HPI: 77yo M w/ PMHx of b/l hydroureteronephrosis 2/2 recurrent Bladder CA and recent urological procedures who presented w/ 1 day of fevers and chills. He endorses fatigue, poor PO intake, nausea, vomiting. Denies CP, SOB. Has not been urinating for the past 2 weeks. In late December, the patient was admitted for abd pain and KARTHIKEYAN, found to have b/l hydro. At that time, plan was to place b/l retrograde JJ ureteral stents. Dr Morrell (Uro) was only able to insert LEFT stent due to recurrent bladder tumor blocking RIGHT side. IR was consulted, and placed a RIGHT percutaneous nephrostomy tube to decompress. Three days ago (02/28) Dr Gonzalez placed a RIGHT JJ stent anterograde, leaving the R external perc neph in place. Procedure was uncomplicated. Initially had hematuria in bag, now clear. Pt was not prescribed abx. UCx taken 3 days ago after IR procedure from RIGHT nephrostomy was +for ESBL E.Coli and E.faecalis In the ER, pt was septic w/ Tm 104.4 with lactic acidosis and significant KARTHIKEYAN. Urine taken from R nephrostomy showed +UA. CT abd showed interval LEFT hydronephrosis. He was given Zosyn and fluid boluses. Pt was seen and examined in ICU. Feeling well. No complaints. PMHx: Bilateral Hydronephrosis Bladder Cancer (s/p BCG) BPH HTN NIDDM Cirrhotic Liver noted on imaging ROS: CONSTITUTIONAL: Absent: fever, chills, diaphoresis, generalized weakness, malaise, loss of appetite, weight change HEENT: Absent: rhinorrhea, nasal congestion, throat pain, throat swelling, difficulty swallowing, mouth swelling, ear pain, eye pain, visual changes CARDIOVASCULAR: Absent: chest pain, syncope, palpitations, irregular heart rate , lightheadedness, peripheral edema RESPIRATORY: Absent: cough, shortness of breath, dyspnea with exertion, orthopnea, wheezing, stridor, hemoptysis GASTROINTESTINAL:Absent: abdominal pain, abdominal distension, nausea, vomiting , diarrhea, constipation, melena, hematochezia GENITOURINARY: Absent: dysuria, frequency, urgency, hesitancy, hematuria, flank pain, genital pain MUSCULOSKELETAL: Absent: myalgia, arthralgia, joint swelling, back pain, neck pain SKIN: Absent: rash, itching, pallor HEMATOLOGIC/IMMUNOLOGIC: Absent: easy bleeding, easy bruising, lymphadenopathy, frequent infections ENDOCRINE:Absent: unexplained weight gain, unexplained weight loss, heat intolerance, cold intolerance NEUROLOGIC: Absent: headache, focal weakness or paresthesias, dizziness, unsteady gait, seizure, mental status changes, bladder or bowel incontinence PSYCHIATRIC: Absent: anxiety, depression, suicidal or homicidal ideation, hallucinations. PE: Vital Signs Period Temp Pulse Resp BP Sys/Benjamin Pulse Ox Last 24 Hr 99.8 F-104.4 F 87-104 18-34 79-116/59-65 95-100 GEN: Awake, alert, no acute distress, does not appear ill, smiling HEENT: PERRLA, EOMi, no JVD CV: S1, S2, regular rhythm w/ ectopic beats, no murmur LUNG: CTABL ABD: Soft, NT, ND, no flank tenderness. R nephrostomy tube in place, draining edson colored urine, no blood. Site appears c/d/i, no tenderness. MSK: No edema, no erythema NEURO: CN 2-12 intact, no sensation or msk deficits A/P: 77yo M w/ PMHx of b/l hydroureteronephrosis 2/2 recurrent Bladder CA and recent urological procedures who presented w/ 1 day of fevers and chills. # Sepsis likely 2/2 UTI -- Pt had recent RIGHT JJ stent placement, now septic w/ +UCx from RIGHT side. Will start renally dosed Ertapenem and Ampicillin as per Dr Nino to cover ESBL and Efaecalis. Isolation. Currently MAPs are 65-70. IVNS @125cc/hr. Bolus IVF as needed. No congestion on CXR. Holding off on Tylenol in light of cirrhotic liver. Holding off on Ibuprofen in light of possible surgery. Trending lactic acid. F/u Bcx. Pending callback from Uro. ?Need removal of R stent. # LEFT hydronephrosis -- Pt has not been urinating for +2 weeks. It is possible the LEFT JJ stent is not functioning well. Likely one or both stents need to be removed/replaced. Will prep for possible procedure. NPO after midnight. Hold AC and antiPLT. T&S. Coags. # KARTHIKEYAN -- Normal b/l. Likely a mix of prerenal from sepsis and obstructive from L hydro. Will get Ulytes to calculate FeNa. Will hydrate. Recheck Cr tmrw. # Recurrent Bladder Transitional Cell CA -- S/p BCG treatment. Recurrence lead to b/l hydro. Mgmt as per Uro. # Cirrhosis noted on Imaging -- Was told by PMD he has an abnormal liver. Has mild coagulopathy. No alcohol hx. No IVDA. No hepatitis panel in EMR. Has likely had outpt workup. Will just monitor enzymes and coags for now. # HTN -- Hold home antiHTN meds for now since SBP <100 # NIDDM -- Hold Metformin. Continue ISS and BGM TIDAC # BPH -- Continue finasteride. Hold flomax due to low BPs. # FEN/Ppx -- 2 gram Na diet. NPO after midnight. SCDs. IVNS # Dispo -- Admit to ICU. Treat sepsis. Waiting on Urology to see if they want to do procedure. We will continue to follow the patient. Thank you for this consultative opportunity. Kavya Rogers MD PGY1 ICU Evening Resident Visit type - Emergency Visit Emergency Visit: No - New Patient This patient is new to me today: Yes Date on this admission: 03/03/18 - Critical Care Critical Care patient: Yes Total Critical Care Time (in minutes): 45 Critical Care Statement: The care of this patient involved high complexity decision making to prevent further life threatening deterioration of the patient 's condition and/or to evaluate & treat vital organ system(s) failure or risk of failure.
[2018-03-03] MEDS ORDERED: SODIUM CHLORIDE 0.9% 500 ML INFUS.BAG IV ONE (21:46)
[2018-03-03] MEDS ORDERED: SODIUM CHLORIDE IVPB SCH (22:00)
[2018-03-03] MEDS ORDERED: AMPICILLIN IVPB SCH (22:00)
[2018-03-03] MEDS ORDERED: AMPICILLIN SODIUM 250 MG VIAL IVPUSH SCH (22:00)
[2018-03-03] MEDS ORDERED: NIFEdipine E.R 60 MG TABLET (UD) PO SCH ×2 (22:00)
[2018-03-03 22:16] LABS: URINE CREATININE 66.5 mg/dL (20-370)
--- NOTE | 2018-03-04 02:20 | HP ---
Admitting History and Physical - Admission History of Present Illness: Pt is a 77 y/o male w/ PMH significant for HTN, HLD, anemia, BPH and b/l hydroureteronephrosis due to recurrent Bladder CA. In 01/01, Dr Morrell (Uro) was only able to insert LEFT stent due to recurrent bladder tumor blocking RIGHT side. IR was consulted, and placed a RIGHT percutaneous nephrostomy tube to decompress. On 02/28/18, Dr Gonzalez(IR) placed a RIGHT JJ stent anterograde, leaving the R external perc neph in place. Procedure was uncomplicated however urine culture was taken from rt nephrostomy wc was (+) for ESBL E.coli and enterococcus faecalis. Initially had hematuria in bag, now clear. Pt presented to the ER w/ 1 day of fevers and chills. He endorses fatigue, poor PO intake, nausea, vomiting. In the ER, pt was found to have Tm 104.4 with lactic acid of 5.6 and creatinine of 3.5. A CT abd showed interval LEFT hydronephrosis and pt admitted to the ICU History Source: Patient, Medical Record - Past Medical History Cardiovascular: Yes: HTN, Hyperlipdemia Renal/: Yes: Renal Failure, BPH, Cancer, Hematuria Heme/Onc: Yes: Anemia, Other (Bladder tumor) - Past Surgical History Additional Past Surgical History: B/L renal stents and rt nephrostomy tube - Smoking History Smoking history: Former smoker Have you smoked in the past 12 months: No Aproximately how many cigarettes per day: 0 If you are a former smoker, when did you quit?: 1989 - Alcohol/Substance Use Hx Alcohol Use: Yes (RARE) Home Medications - Allergies Allergies/Adverse Reactions: Allergies Allergy/AdvReac Type Severity Reaction Status Date / Time No Known Allergies Allergy Verified 03/03/18 12:01 - Home Medications Home Medications: Ambulatory Orders Metformin HCl [Glucophage] 1,000 mg PO BID 06/01/15 Metoprolol Succinate [Toprol XL -] 100 mg PO DAILY 06/01/15 Pantoprazole Sodium [Protonix] 40 mg PO DAILY 06/01/15 Finasteride 5 mg PO DAILY 08/30/17 Nifedipine ER [Procardia XL -] 60 mg PO HS 01/10/18 Aspirin Coated [Ecotrin -] 81 mg PO DAILY 03/03/18 Silodosin [Rapaflo] 8 mg PO DAILY 03/03/18 Zolpidem Tartrate [Ambien] 5 mg PO HS 03/03/18 Family Disease History - Family Disease History Family History: Unremarkable Review of Systems - Review of Systems Constitutional: reports: Fever, Lethargy, Loss of Appetite HENT: reports: No Symptoms Neck: reports: No Symptoms Cardiovascular: reports: No Symptoms Respiratory: reports: No Symptoms Gastrointestinal: reports: Nausea, Vomiting Physical Examination Vital Signs: Vital Signs Temperature 98.9 F 03/03/18 22:00 Pulse Rate 76 03/04/18 00:27 Respiratory Rate 20 03/04/18 00:27 Blood Pressure 83/61 03/04/18 00:27 O2 Sat by Pulse Oximetry (%) 96 03/03/18 20:14 Constitutional: Yes: Well Nourished HENT: Yes: WNL Neck: Yes: WNL, Supple Cardiovascular: Yes: Tachycardia Respiratory: Yes: WNL, Regular, CTA Bilaterally Gastrointestinal: Yes: WNL, Normal Bowel Sounds, Soft, Other (Rt nephrostomy tube) Labs: CBC, BMP 03/03/18 12:12 03/03/18 12:12 Problem List - Problems (1) Sepsis Assessment/Plan: Cont IVF and trend lactic acid Cont IV antibxs Follow cultures ID/uro consults called Code(s): A41.9 - SEPSIS, UNSPECIFIED ORGANISM (2) ARF (acute renal failure) Assessment/Plan: Acute on chronic renal failure Cont IVF and monitor bun/creatinine Code(s): N17.9 - ACUTE KIDNEY FAILURE, UNSPECIFIED (3) Anemia Assessment/Plan: Probably some part dilutional due to aggressive IV hydration for sepsis Cont to monitor H/H Transfuse PRBC's as indicated Code(s): D64.9 - ANEMIA, UNSPECIFIED (4) BPH (benign prostatic hyperplasia) Assessment/Plan: Cont finasteride Code(s): N40.0 - BENIGN PROSTATIC HYPERPLASIA WITHOUT LOWER URINRY TRACT SYMP (5) Bladder cancer Assessment/Plan: Unclear at this point however pt may have outpt appointment w/ urological oncologist Spoke to son who wants second opinion w/ oncologist Code(s): C67.9 - MALIGNANT NEOPLASM OF BLADDER, UNSPECIFIED (6) Hypertension Assessment/Plan: Hold antihypertensives Pt is now hypotension due to sepsis Code(s): I10 - ESSENTIAL (PRIMARY) HYPERTENSION Qualifiers: Hypertension type: other secondary hypertension Qualified Code(s): I15.8 - Other secondary hypertension
[2018-03-04 06:06] LABS: HEMATOCRIT 21.7 % (35.4-49); MCHC 32.1 g/dl (32.0-35.9); MEAN CELL VOLUME 60.4 fl (80-96); RDW 18.5 % (11.9-15.9)
[2018-03-04 06:16] LABS: INR 1.67 (0.82-1.09); PROTHROMBIN TIME (PATIENT) 18.9 SEC (9.7-13.0)
[2018-03-04] MEDS: AMPICILLIN IVPB SCH ×2 (06:19→17:12)
[2018-03-04] MEDS: SODIUM CHLORIDE IVPB SCH ×2 (06:19→17:12)
[2018-03-04 06:25] LABS: MCH 19.4 pg (25.7-33.7)
[2018-03-04 06:26] LABS: ADD RBC MORPHOLOGY YES
[2018-03-04 06:35] LABS: ALBUMIN 2.5 g/dl (3.4-5.0); ANION GAP 9 (8-16); BLOOD UREA NITROGEN 44 mg/dL (7-18); CALCIUM 7.2 mg/dL (8.5-10.1); CHLORIDE 108 mmol/L (98-107); CO2 22 mmol/L (21-32); GLUCOSE,RANDOM 121 mg/dL (74-106); POTASSIUM 4.1 mmol/L (3.5-5.1); SODIUM 139 mmol/L (136-145)
[2018-03-04 06:39] LABS: ALK PHOS 93 U/L (45-117); BILIRUBIN,TOTAL 0.7 mg/dL (0.2-1.0); CREATININE 3.4 mg/dL (0.7-1.3); SGOT/AST 20 U/L (15-37); SGPT/ALT 12 U/L (12-78); TOT PROT 5.4 g/dl (6.4-8.2)
[2018-03-04] MEDS: INSULIN SLIDING SCALE (NOVOLOG) 1 VIAL SQ SCH ×3 (06:50→17:09)
[2018-03-04 06:55] LABS: ANISOCYTOSIS 2+; OVALOCYTE 2+; TEAR DROP CELLS 1+
[2018-03-04 06:57] LABS: MEAN PLT VOLUME 9.7 fl (7.5-11.1); PLATELET COUNT 85 K/MM3 (134-434)
[2018-03-04] MEDS ORDERED: TAMSULOSIN HCL 0.4 MG CAP.ER.24H (FP) PO SCH (08:30)
[2018-03-04] MEDS ORDERED: PT OWN MED DRAWER 7, Y5N ONE ×3 (10:12→23:02)
[2018-03-04] MEDS: ERTAPENEM SODIUM 0.5 GM in SODIUM CHLORIDE 50 ML IVPB SCH (10:12)
[2018-03-04] MEDS: FINASTERIDE 5 MG TABLET (FP) PO SCH (10:13)
[2018-03-04] MEDS: PANTOPRAZOLE 40 MG TABLET (FP) PO SCH (10:14)
--- NOTE | 2018-03-04 10:46 | PN ---
Progress Note (short form) - Note Progress Note: PULMONARY/CCM Pt seen and examined in the ICU. Briefly, 77yo male with h/o HTN, DM, liver cirrhosis, recurrent bladder cancer with hydroureteronephrosis s/p left ureteral stent on 01/29, right nephrostomy tube placement 01/30, right JJ anterograde stent 02/28 who was admitted with fevers and chills. Also with nausea , vomiting and decreased PO intake. Febrile to 104.4, hypotensive in acute renal failure with lactic acidosis, given IVF and antibiotics, transferred to ICU for further monitoring. Blood cultures growing multiple organisms. Urine culture from nephrostomy taken 02/28 growing ESBL E Coli and enterococcus. Admission CT A/P now showing left hydronephrosis. Last Vital Signs Temp Pulse Resp BP Pulse Ox 97.7 F 81 20 94/62 96 03/04/18 06:00 03/04/18 06:00 03/04/18 06:00 03/04/18 06:00 03/03/18 20:14 Intake & Output 03/01/18 03/02/18 03/03/18 03/04/18 23:59 23:59 23:59 23:59 Intake Total 2000 875 Output Total 200 500 Balance 1800 375 Weight 79.016 kg 79.469 kg Gen: NAD at rest Heart: RRR Lung: decreased breath sounds at the bases Abd: soft, nontender, +nephrostomy tube Ext: no edema CBC, BMP 03/04/18 05:50 03/04/18 05:50 Active Medications Finasteride (Proscar -) [address] [facility] Last Admin: 03/04/18 10:13 Dose: 5 mg Sodium Chloride (Normal Saline -) 1,000 mls @ 125 mls/hr IV ASDIR [facility] Last Admin: 03/03/18 17:25 Dose: 125 mls/hr Ertapenem 0.5 gm/ Sodium (Chloride) 50 mls @ 100 mls/hr IVPB DAILY [facility] PRN Reason: Protocol Last Admin: 03/04/18 10:12 Dose: 100 mls/hr Ampicillin Sodium 0.5 gm/ (Sodium Chloride) 50 mls @ 100 mls/hr IVPB BID@0600, 1800 [facility] Last Admin: 03/04/18 06:19 Dose: 100 mls/hr Insulin Aspart (Novolog Vial Sliding Scale -) 1 vial SQ TIDAC LIT PRN Reason: Protocol Last Admin: 03/04/18 06:50 Dose: Not Given Pantoprazole Sodium (Protonix -) [address] [facility] Last Admin: 03/04/18 10:14 Dose: 40 mg A/P UTI Polymicrobial Bacteremia Severe Sepsis Acute Kidney Injury Lactic Acidosis Thrombocytopenia Recurrent Bladder Cancer Recent Bilateral Hydroureteronephrosis s/p bilateral JJ stents s/p right percutaneous nephrostomy drainage Left Hydronephrosis Anemia HTN DM Liver Cirrhosis - IV antibiotics - f/u cultures - IVF - monitor urine output, creatinine - trend lactate - pressors if remains hypotensive with IVF - urology evaluation - monitor H/H, platelets - transfuse as needed - DVT prophylaxis - continue ICU monitoring critical care time spent in reviewing chart, evaluating patient and formulating plan 35 min
--- NOTE | 2018-03-04 15:21 | PN ---
Progress Note, Physician History of Present Illness: starting to feel better urology to see the patient family in room spoke with - Current Medication List Current Medications: Active Medications Finasteride (Proscar -) 5 mg PO DAILY [facility] Last Admin: 03/04/18 10:13 Dose: 5 mg Sodium Chloride (Normal Saline -) 1,000 mls @ 125 mls/hr IV ASDIR [facility] Last Admin: 03/03/18 17:25 Dose: 125 mls/hr Ertapenem 0.5 gm/ Sodium (Chloride) 50 mls @ 100 mls/hr IVPB DAILY [facility] PRN Reason: Protocol Last Admin: 03/04/18 10:12 Dose: 100 mls/hr Ampicillin Sodium 0.5 gm/ (Sodium Chloride) 50 mls @ 100 mls/hr IVPB BID@0600, 1800 [facility] Last Admin: 03/04/18 06:19 Dose: 100 mls/hr Insulin Aspart (Novolog Vial Sliding Scale -) 1 vial SQ TIDAC [facility] PRN Reason: Protocol Last Admin: 03/04/18 12:36 Dose: Not Given Pantoprazole Sodium (Protonix -) 40 mg PO DAILY [facility] Last Admin: 03/04/18 10:14 Dose: 40 mg - Objective Vital Signs: Vital Signs Temperature 97.7 F 03/04/18 06:00 Pulse Rate 71 03/04/18 08:00 Respiratory Rate 20 03/04/18 09:00 Blood Pressure 96/68 03/04/18 08:00 O2 Sat by Pulse Oximetry (%) 96 03/04/18 09:00 Constitutional: Yes: No Distress, Calm Cardiovascular: Yes: Regular Rate and Rhythm Respiratory: Yes: Regular, CTA Bilaterally Gastrointestinal: Yes: Normal Bowel Sounds, Soft Genitourinary: Yes: Other (rt sided ext nephrostomy tube in place) Musculoskeletal: Yes: WNL Extremities: Yes: WNL Neurological: Yes: Alert, Oriented Psychiatric: Yes: Alert, Oriented Labs: CBC, BMP 03/04/18 05:50 03/04/18 05:50 INR, PTT INR 1.67 (0.82-1.09) H 03/04/18 05:50 Assessment/Plan ac kidney injury uti lactic acidosis rt nephrostomy tube htn dm cirrhosis of liver plan await for all cx reports continue patient will need tube replacement urology to see the patient close watch on fevers family in the room d/w the family rest as per icu hydration cc time 40 min
--- NOTE | 2018-03-04 16:45 | PN ---
Progress Note (short form) - Note Progress Note: UROLOGY NOTE. PT. WITH UROSEPSIS. H/O TCC OF URINARY BLADDER, S/P RT-PCN PLACEMENT (FUNCTIONING WELL). CT REVEALS LT. HYDRONEPHROSIS THAT IS WORSENING.PT. IS S/P LT. JJ STENT WHICH SEEMS TO BE NOT FUNCTIONING.BUN=44, CR.= 3.4 PMV=[id number].LACTIC ACID =3.5 .PLAN-LT. PCN LOURDES. PT. WILL NEED INTERNALISATION WHEN MED. OK OP.
[2018-03-04] MEDS: SODIUM CHLORIDE 1,000 ML IV SCH (17:00)
[2018-03-04] MEDS ORDERED: ACETAMINOPHEN 325 MG TABLET (FP) PO PRN (17:56)
--- NOTE | 2018-03-04 19:41 | CONS ---
DATE OF CONSULTATION: DATE OF DICTATION: 03/04/2018 HISTORY: The patient is a 77-year-old male admitted via the emergency room on March 03, 2018 with weakness, fever and chills. The patient has a long and complicated urologic history including a history of prostatism and transitional cell carcinoma of the urinary bladder. The patient has had multiple TURs of bladder tumors. He has also received intravesical BCG treatments. He presented several weeks ago with bilateral hydroureteronephrosis. A left-sided stent was placed with difficulty. The patient went home and now presents with bilateral CVA tenderness. He also underwent right-sided percutaneous nephrostomy tube placement several days prior to this admission. The patient has a history of high blood pressure and COPD. He is a former smoker. He also has a history of dyslipidemia. He denies ethanol use at present. He denies any allergies. PHYSICAL EXAMINATION: Vital Signs: On admission, his temperature was 104 in the emergency room, blood pressure was 85/61, oxygen saturation was 96% on room air. GENERAL: The patient is a well-oriented male in no apparent distress. CHEST: Clear. ABDOMEN: Soft. There was left CVA tenderness. GENITOURINARY: Genitalia were atraumatic. Meatus is adequate. His prostate is 3+, benign and nontender LABS: On admission, his white cells were 10,800. BUN was 39, creatinine was 3.6. Platelets were 198. Random glucose was 97. Currently, the patient's BUN is 44, creatinine is 3.4. His lactic acid level is 3.5; on admission, it was 5. His white count is currently 15,000. His hemoglobin is 7, hematocrit is 21.7. His platelets are down to 85. Urine cultures grew out lactose-fermenting gram-negative bacilli. Urine are also pending. IMPRESSION: At present, this is a 77-year-old male with a history of bladder cancer. He also has a history of bilateral hydroureteronephrosis secondary to trigonal involvement of a tumor. The patient has had a right nephrostomy tube placed which is functioning well. He had a left double-J stent that needs to be blocked. We will recommend placement of a left percutaneous nephrostomy and once the patient is stable and medically cleared, we will attempt to internalize both stents. The patient will also need an abdominal and pelvic CT to stage his bladder cancer and will most likely benefit from external beam radiation therapy for treatment of his tumor. We will follow him with you. ABELINO EASTMAN M.D. [id number]
[2018-03-04] MEDS ORDERED: ZOLPIDEM TARTRATE 5 MG TABLET PO ONE (21:30)
[2018-03-05 06:10] LABS: HEMATOCRIT 23.8 % (35.4-49); MCHC 33.4 g/dl (32.0-35.9); MEAN CELL VOLUME 59.3 fl (80-96); RBC 4.02 M/mm3 (4.00-5.60); RDW 18.7 % (11.9-15.9); WHITE BLOOD COUNT 9.5 K/mm3 (4.0-10.0)
[2018-03-05 06:11] LABS: MCH 19.8 pg (25.7-33.7)
[2018-03-05 06:21] LABS: INR 1.34 (0.82-1.09); PROTHROMBIN TIME (PATIENT) 15.1 SEC (9.7-13.0)
[2018-03-05 06:24] LABS: ACTIVATED PTT 26.5 SECONDS (26.9-34.4)
[2018-03-05] MEDS: SODIUM CHLORIDE IVPB SCH ×2 (06:36→19:34)
[2018-03-05] MEDS: AMPICILLIN IVPB SCH ×2 (06:36→19:34)
[2018-03-05 06:38] LABS: ALBUMIN 2.5 g/dl (3.4-5.0); ALK PHOS 148 U/L (45-117); ANION GAP 10 (8-16); BILIRUBIN,TOTAL 0.6 mg/dL (0.2-1.0); BLOOD UREA NITROGEN 36 mg/dL (7-18); CALCIUM 7.2 mg/dL (8.5-10.1); CHLORIDE 110 mmol/L (98-107); CO2 22 mmol/L (21-32); CREATININE 1.9 mg/dL (0.7-1.3); GLUCOSE,RANDOM 109 mg/dL (74-106); MAGNESIUM 1.4 mg/dL (1.8-2.4); PHOSPHOROUS 3.5 mg/dL (2.5-4.9); POTASSIUM 3.9 mmol/L (3.5-5.1); SGOT/AST 27 U/L (15-37); SGPT/ALT 21 U/L (12-78); SODIUM 142 mmol/L (136-145); TOT PROT 5.7 g/dl (6.4-8.2)
[2018-03-05] MEDS: INSULIN SLIDING SCALE (NOVOLOG) 1 VIAL SQ SCH ×3 (06:40→19:34)
[2018-03-05] MEDS ORDERED: PT OWN MED DRAWER 7, Y5N ONE ×2 (09:50→18:26)
--- NOTE | 2018-03-05 09:56 | PN ---
Progress Note (short form) - Note Progress Note: PULMONARY/CCM Pt seen and examined in the ICU. s/p left percutaneous nephrostomy tube yesterday with drainage of turbid urine. No further fevers, good urine output. Blood pressures improving. Last Vital Signs Temp Pulse Resp BP Pulse Ox 98.4 F 98 H 18 136/86 100 03/05/18 06:00 03/05/18 09:37 03/05/18 09:37 03/05/18 09:37 03/05/18 08:19 Intake & Output 03/02/18 03/03/18 03/04/18 03/05/18 23:59 23:59 23:59 23:59 Intake Total 1999 3700 1075 Output Total 200 3150 2250 Balance 1800 550 -1175 Weight 79.016 kg 79.469 kg 77.882 kg Gen: NAD at rest Heart: RRR Lung: decreased breath sounds at the bases Abd: soft, nontender, +bilateral nephrostomy tube Ext: no edema CBC, BMP 03/05/18 05:55 03/05/18 05:55 Active Medications Acetaminophen (Tylenol -) 650 mg PO Q6H PRN PRN Reason: FEVER Last Admin: 03/04/18 21:25 Dose: 650 mg Finasteride (Proscar -) 5 mg PO DAILY [facility] Last Admin: 03/04/18 10:13 Dose: 5 mg Sodium Chloride (Normal Saline -) 1,000 mls @ 125 mls/hr IV ASDIR [facility] Last Admin: 03/04/18 17:00 Dose: 125 mls/hr Ertapenem 0.5 gm/ Sodium (Chloride) 50 mls @ 100 mls/hr IVPB DAILY [facility] PRN Reason: Protocol Last Admin: 03/04/18 10:12 Dose: 100 mls/hr Ampicillin Sodium 0.5 gm/ (Sodium Chloride) 50 mls @ 100 mls/hr IVPB BID@0600, 1800 [facility] Last Admin: 03/05/18 06:36 Dose: 100 mls/hr Insulin Aspart (Novolog Vial Sliding Scale -) 1 vial SQ TIDAC [facility] PRN Reason: Protocol Last Admin: 03/05/18 06:40 Dose: Not Given Pantoprazole Sodium (Protonix -) 40 mg PO DAILY [facility] Last Admin: 03/04/18 10:14 Dose: 40 mg A/P UTI Polymicrobial Bacteremia Severe Sepsis improving Acute Kidney Injury Lactic Acidosis Thrombocytopenia Recurrent Bladder Cancer Recent Bilateral Hydroureteronephrosis s/p bilateral JJ stents s/p right percutaneous nephrostomy drainage Recurrent Left Hydronephrosis s/p left percutaneous nephrostomy drainage Anemia HTN DM Liver Cirrhosis - continue antibiotics - f/u cultures - IVF, will decrease rate - monitor urine output, creatinine - monitor H/H, platelets - transfuse as needed - DVT prophylaxis - can monitor on floor critical care time spent in reviewing chart, evaluating patient and formulating plan 35 min
[2018-03-05] MEDS ORDERED: MAGNESIUM 2GM/50ML STERILE WATER IVPB IVPB ONE (10:00)
[2018-03-05] MEDS ORDERED: MAGNESIUM OXIDE 400 MG TABLET (FP) PO ONE (10:00)
[2018-03-05] MEDS: PANTOPRAZOLE 40 MG TABLET (FP) PO SCH (10:21)
[2018-03-05] MEDS: ERTAPENEM SODIUM 0.5 GM in SODIUM CHLORIDE 50 ML IVPB SCH (10:21)
[2018-03-05] MEDS: FINASTERIDE 5 MG TABLET (FP) PO SCH (10:21)
[2018-03-05] MEDS: SODIUM CHLORIDE 1,000 ML IV SCH (10:22)
[2018-03-05 11:15] LABS: MEAN PLT VOLUME 9.4 fl (7.5-11.1); PLATELET COUNT 90 K/MM3 (134-434)
[2018-03-05 11:17] LABS: ANISOCYTOSIS 2+
[2018-03-05 11:19] LABS: OVALOCYTE 1+; PLATELET ESTIMATE DECREASED
[2018-03-05 11:43] VITALS: BMI 24.5
--- NOTE | 2018-03-05 12:24 | PN ---
Progress Note, Physician History of Present Illness: stable no issues has ext left side nephrostomy tube placed patient doing well - Current Medication List Current Medications: Active Medications Acetaminophen (Tylenol -) 650 mg PO Q6H PRN PRN Reason: FEVER Last Admin: 03/04/18 21:25 Dose: 650 mg Finasteride (Proscar -) 5 mg PO DAILY [facility] Last Admin: 03/05/18 10:21 Dose: 5 mg Ertapenem 0.5 gm/ Sodium (Chloride) 50 mls @ 100 mls/hr IVPB DAILY [facility] PRN Reason: Protocol Last Admin: 03/05/18 10:21 Dose: 100 mls/hr Ampicillin Sodium 0.5 gm/ (Sodium Chloride) 50 mls @ 100 mls/hr IVPB BID@0600, 1800 [facility] Last Admin: 03/05/18 06:36 Dose: 100 mls/hr Sodium Chloride (Normal Saline -) 1,000 mls @ 75 mls/hr IV ASDIR [facility] Last Admin: 03/05/18 10:22 Dose: 75 mls/hr Insulin Aspart (Novolog Vial Sliding Scale -) 1 vial SQ TIDAC [facility] PRN Reason: Protocol Last Admin: 03/05/18 06:40 Dose: Not Given Pantoprazole Sodium (Protonix -) 40 mg PO DAILY [facility] Last Admin: 03/05/18 10:21 Dose: 40 mg - Objective Vital Signs: Vital Signs Temperature 98.4 F 03/05/18 06:00 Pulse Rate 98 H 03/05/18 09:37 Respiratory Rate 18 03/05/18 09:37 Blood Pressure 136/86 03/05/18 09:37 O2 Sat by Pulse Oximetry (%) 100 03/05/18 08:19 Constitutional: Yes: No Distress, Calm Cardiovascular: Yes: Regular Rate and Rhythm Respiratory: Yes: Regular, CTA Bilaterally Gastrointestinal: Yes: Normal Bowel Sounds, Soft Genitourinary: Yes: Other (bilateral nephrostomy tube place) Musculoskeletal: Yes: WNL Extremities: Yes: WNL Neurological: Yes: Alert, Oriented Psychiatric: Yes: Alert, Oriented Labs: CBC, BMP 03/05/18 05:55 03/05/18 05:55 INR, PTT INR 1.34 (0.82-1.09) H 03/05/18 05:55 Assessment/Plan ac kidney injury uti lactic acidosis rt nephrostomy tube htn dm cirrhosis of liver plan cx report noted continue abx will need abx for some time probably couple of weeks patient doing well rest ct current mgmt cc time 40 min
--- NOTE | 2018-03-05 17:38 | PN ---
Progress Note, Physician History of Present Illness: S/P placement of lt nephrostomy tube yesterday w/out complications - Current Medication List Current Medications: Active Medications Acetaminophen (Tylenol -) 650 mg PO Q6H PRN PRN Reason: FEVER Last Admin: 03/04/18 21:25 Dose: 650 mg Finasteride (Proscar -) 5 mg PO DAILY [facility] Last Admin: 03/05/18 10:21 Dose: 5 mg Ertapenem 0.5 gm/ Sodium (Chloride) 50 mls @ 100 mls/hr IVPB DAILY [facility] PRN Reason: Protocol Last Admin: 03/05/18 10:21 Dose: 100 mls/hr Ampicillin Sodium 0.5 gm/ (Sodium Chloride) 50 mls @ 100 mls/hr IVPB BID@0600, 1800 [facility] Last Admin: 03/05/18 06:36 Dose: 100 mls/hr Sodium Chloride (Normal Saline -) 1,000 mls @ 75 mls/hr IV ASDIR [facility] Last Admin: 03/05/18 10:22 Dose: 75 mls/hr Insulin Aspart (Novolog Vial Sliding Scale -) 1 vial SQ TIDAC [facility] PRN Reason: Protocol Last Admin: 03/05/18 14:36 Dose: Not Given Pantoprazole Sodium (Protonix -) 40 mg PO DAILY [facility] Last Admin: 03/05/18 10:21 Dose: 40 mg - Objective Vital Signs: Vital Signs Temperature 98.4 F 03/05/18 06:00 Pulse Rate 98 H 03/05/18 09:37 Respiratory Rate 18 03/05/18 09:37 Blood Pressure 136/86 03/05/18 09:37 O2 Sat by Pulse Oximetry (%) 100 03/05/18 08:19 Constitutional: Yes: Well Nourished Neck: Yes: WNL, Supple Cardiovascular: Yes: WNL, Regular Rate and Rhythm Respiratory: Yes: WNL, Regular, CTA Bilaterally Gastrointestinal: Yes: Other ((+) b/l nephrostomy tubes) Edema: No Labs: CBC, BMP 03/05/18 05:55 03/05/18 05:55 INR, PTT INR 1.34 (0.82-1.09) H 03/05/18 05:55 Problem List - Problems (1) Sepsis Assessment/Plan: Bacteremia due to lacotse fermenting neg bacilli and Grp D strept or enterococcuse Cont IVF Cont IV ampicillin/ertapenem Vital signs improving BP improved Pt afebrile and not tachy Follow cultures Code(s): A41.9 - SEPSIS, UNSPECIFIED ORGANISM (2) ARF (acute renal failure) Assessment/Plan: Acute on chronic renal failure Cont IVF Improving bun/creatinine Code(s): N17.9 - ACUTE KIDNEY FAILURE, UNSPECIFIED (3) Anemia Assessment/Plan: Probably some part dilutional due to aggressive IV hydration for sepsis Cont to monitor H/H wc has improved Transfuse PRBC's as indicated Code(s): D64.9 - ANEMIA, UNSPECIFIED (4) BPH (benign prostatic hyperplasia) Assessment/Plan: Cont finasteride Code(s): N40.0 - BENIGN PROSTATIC HYPERPLASIA WITHOUT LOWER URINRY TRACT SYMP (5) Bladder cancer Assessment/Plan: Unclear at this point however pt may have outpt appointment w/ urological oncologist Spoke to son who wants second opinion w/ oncologist Code(s): C67.9 - MALIGNANT NEOPLASM OF BLADDER, UNSPECIFIED (6) Hypertension Assessment/Plan: Antihypertensives have been on hold due to hypotension from sepsis However cont to monitor BP wc is improving Code(s): I10 - ESSENTIAL (PRIMARY) HYPERTENSION Qualifiers: Hypertension type: other secondary hypertension Qualified Code(s): I15.8 - Other secondary hypertension
[2018-03-06] MEDS ORDERED: PT OWN MED DRAWER 7, Y5N ONE ×3 (06:04→17:03)
[2018-03-06] MEDS: AMPICILLIN IVPB SCH ×2 (06:05→17:05)
[2018-03-06] MEDS: SODIUM CHLORIDE IVPB SCH ×2 (06:05→17:05)
[2018-03-06] MEDS: INSULIN SLIDING SCALE (NOVOLOG) 1 VIAL SQ SCH ×3 (06:37→17:06)
[2018-03-06 06:45] LABS: CHLORIDE 110 mmol/L (98-107); POTASSIUM 3.9 mmol/L (3.5-5.1); SODIUM 142 mmol/L (136-145)
[2018-03-06 06:52] LABS: BASO % 0.4 % (0-2.0); HEMOGLOBIN 7.5 GM/dL (11.7-16.9); LYMPH % 15.8 % (8-40); MCHC 32.6 g/dl (32.0-35.9); MEAN CELL VOLUME 59.4 fl (80-96); MEAN PLT VOLUME 9.6 fl (7.5-11.1); NEUT % 75.8 % (42.8-82.8); PLATELET COUNT 117 K/MM3 (134-434); RBC 3.87 M/mm3 (4.00-5.60); RDW 18.6 % (11.9-15.9); WHITE BLOOD COUNT 7.9 K/mm3 (4.0-10.0)
[2018-03-06 06:53] LABS: ALBUMIN 2.6 g/dl (3.4-5.0); ALK PHOS 258 U/L (45-117); ANION GAP 7 (8-16); BILIRUBIN,TOTAL 0.8 mg/dL (0.2-1.0); BLOOD UREA NITROGEN 21 mg/dL (7-18); CALCIUM 7.7 mg/dL (8.5-10.1); CO2 25 mmol/L (21-32); GLUCOSE,RANDOM 113 mg/dL (74-106); MAGNESIUM 1.7 mg/dL (1.8-2.4); PHOSPHOROUS 3.4 mg/dL (2.5-4.9); SGOT/AST 29 U/L (15-37); SGPT/ALT 29 U/L (12-78); TOT PROT 5.8 g/dl (6.4-8.2)
[2018-03-06 07:13] LABS: MCH 19.4 pg (25.7-33.7)
--- NOTE | 2018-03-06 08:08 | PN ---
Progress Note (short form) - Note Progress Note: S: -- No complaints -- L PCN continues to drain well +1600 -- +UCx O: Vital Signs Period Temp Pulse Resp BP Sys/Benjamin Pulse Ox Last 24 Hr 98.1 F-98.2 F 67-98 16-22 110-148/65-98 94-100 Tele - No events GEN: Awake, alert, no acute distress, does not appear ill, smiling HEENT: PERRLA, EOMi, no JVD CV: S1, S2, regular rhythm w/ ectopic beats, no murmur LUNG: CTABL ABD: Soft, NT, ND, no flank tenderness. R and L nephrostomy tube in place, draining edson colored urine. Site appears c/d/i, no tenderness. MSK: No edema, no erythema NEURO: CN 2-12 intact, no sensation or msk deficits A/P: 77yo M w/ PMHx of b/l hydroureteronephrosis 2/2 recurrent Bladder CA and recent urological procedures who presented w/ 1 day of fevers and chills. # Sepsis likely 2/2 UTI -- Pt had recent RIGHT JJ stent placement w/ +UCx on R. This probably seeded into his blood and into his L kidney. Improving on Ertapenem and Ampicillin. # LEFT hydronephrosis -- LEFT JJ stent was likely not functioning well. POD 2 from LEFT Perc nephrostomy, draining well, improvement in BP and KARTHIKEYAN # KARTHIKEYAN -- Normal b/l. Likely a mix of prerenal from sepsis and obstructive from L hydro. Improved w/ LPCN # Recurrent Bladder Transitional Cell CA -- S/p BCG treatment. Recurrence lead to b/l hydro. Mgmt as per Uro. # Cirrhosis -- Known. 2/2 HUFFMAN. Has mild coagulopathy and thrombocytopenia. Monitor. Outpatient w/u. # Microcytic Anemia -- Latest iron studies are c/w Anemia of Chronic Disease. Dilutional component a well. # HTN -- Hold home antiHTN meds for now since SBP <100 # NIDDM -- Hold Metformin. Continue ISS and BGM TIDAC # FEN/Ppx -- IVNS 75cc/hr. Diabetic/Sodium diet. SCDs (thrombocytopenia) # Dispo -- Transfer to [facility] Kavya Rogers MD PGY1 ICU Resident
[2018-03-06] MEDS ORDERED: MAGNESIUM SULF 50% (8.12 MEQ/2 ML-1 GM VIAL) IVPB ONE (09:00)
[2018-03-06] MEDS: FINASTERIDE 5 MG TABLET (FP) PO SCH (09:48)
[2018-03-06] MEDS: PANTOPRAZOLE 40 MG TABLET (FP) PO SCH (09:48)
[2018-03-06] MEDS: ERTAPENEM SODIUM 0.5 GM in SODIUM CHLORIDE 50 ML IVPB SCH (09:48)
[2018-03-06] MEDS: SODIUM CHLORIDE 1,000 ML IV SCH ×2 (10:02→11:21)
[2018-03-06] MEDS ORDERED: ACETAMINOPHEN 325 MG TABLET (FP) PO PRN (11:17)
--- NOTE | 2018-03-06 15:11 | PN ---
Teaching Attending Note Name of Resident: Kavya Rogers ATTENDING PHYSICIAN STATEMENT I saw and evaluated the patient. I reviewed the resident's note and discussed the case with the resident. I agree with the resident's findings and plan as documented. SUBJECTIVE: Patient seen and examined in the ICU. Feels overall better. No CP or SOB. Good UOP from drains. Intake & Output 03/03/18 03/04/18 03/05/18 03/06/18 23:59 23:59 23:59 23:59 Intake Total 2000 3700 1900 1600 Output Total 200 3150 6050 2700 Balance 1800 550 -4150 -1100 Weight 174 lb 3.2 oz 175 lb 3.2 oz 171 lb 173 lb 8 oz Last Vital Signs Temp Pulse Resp BP Pulse Ox 98.2 F 100 H 20 149/94 96 03/06/18 14:00 03/06/18 14:00 03/06/18 14:00 03/06/18 14:00 03/06/18 08:00 Active Medications Acetaminophen (Tylenol -) 650 mg PO Q6H PRN PRN Reason: FEVER Finasteride (Proscar -) 5 mg PO DAILY [facility] Ampicillin Sodium 0.5 gm/ (Sodium Chloride) 50 mls @ 100 mls/hr IVPB BID@0600, 1800 [facility] Ertapenem 0.5 gm/ Sodium (Chloride) 50 mls @ 100 mls/hr IVPB DAILY [facility] PRN Reason: Protocol Sodium Chloride (Normal Saline -) 1,000 mls @ 75 mls/hr IV ASDIR [facility] Last Admin: 03/06/18 11:21 Dose: Not Given Insulin Aspart (Novolog Vial Sliding Scale -) 1 vial SQ TIDAC [facility] PRN Reason: Protocol Pantoprazole Sodium (Protonix -) 40 mg PO DAILY [facility] Zolpidem Tartrate (Ambien -) 5 mg PO HS PRN PRN Reason: INSOMNIA Gen: NAD at rest Heart: RRR Lung: decreased breath sounds at the bases Abd: soft, nontender, +bilateral nephrostomy tube Ext: no edema A/P UTI Polymicrobial Bacteremia Severe Sepsis improving Acute Kidney Injury Lactic Acidosis Thrombocytopenia Recurrent Bladder Cancer Recent Bilateral Hydroureteronephrosis s/p bilateral JJ stents s/p right percutaneous nephrostomy drainage Recurrent Left Hydronephrosis s/p left percutaneous nephrostomy drainage Anemia HTN DM Liver Cirrhosis - ABX per ID - f/u cultures - Decrease IVF - monitor urine output, creatinine - monitor H/H, platelets - transfuse as needed - DVT prophylaxis - Telemetry monitoring Dr Samuels Critical care time spent in reviewing chart, evaluating patient and formulating plan 36 min
--- NOTE | 2018-03-06 17:08 | PN ---
Progress Note, Physician History of Present Illness: stable no issues good output from the drains doing well - Current Medication List Current Medications: Active Medications Acetaminophen (Tylenol -) 650 mg PO Q6H PRN PRN Reason: FEVER Finasteride (Proscar -) 5 mg PO DAILY [facility] Ampicillin Sodium 0.5 gm/ (Sodium Chloride) 50 mls @ 100 mls/hr IVPB BID@0600, 1800 [facility] Last Admin: 03/06/18 17:05 Dose: 100 mls/hr Ertapenem 0.5 gm/ Sodium (Chloride) 50 mls @ 100 mls/hr IVPB DAILY [facility] PRN Reason: Protocol Sodium Chloride (Normal Saline -) 1,000 mls @ 75 mls/hr IV ASDIR [facility] Last Admin: 03/06/18 11:21 Dose: Not Given Insulin Aspart (Novolog Vial Sliding Scale -) 1 vial SQ TIDAC [facility] PRN Reason: Protocol Last Admin: 03/06/18 17:06 Dose: 2 units Pantoprazole Sodium (Protonix -) 40 mg PO DAILY [facility] Zolpidem Tartrate (Ambien -) 5 mg PO HS PRN PRN Reason: INSOMNIA - Objective Vital Signs: Vital Signs Temperature 98.2 F 03/06/18 14:00 Pulse Rate 100 H 03/06/18 14:00 Respiratory Rate 20 03/06/18 14:00 Blood Pressure 149/94 03/06/18 14:00 O2 Sat by Pulse Oximetry (%) 96 03/06/18 08:00 Constitutional: Yes: No Distress, Calm Cardiovascular: Yes: Regular Rate and Rhythm Respiratory: Yes: Regular, CTA Bilaterally Gastrointestinal: Yes: Normal Bowel Sounds, Soft Genitourinary: Yes: Other (bilat nephrostomy tubes in place) Musculoskeletal: Yes: WNL Extremities: Yes: WNL Neurological: Yes: Alert, Oriented Psychiatric: Yes: Alert, Oriented Labs: CBC, BMP 03/06/18 05:15 03/06/18 05:15 INR, PTT INR 1.34 (0.82-1.09) H 03/05/18 05:55 Assessment/Plan ac kidney injury uti lactic acidosis rt nephrostomy tube htn dm cirrhosis of liver plan cx report noted continue abx will need abx for some time probably couple of weeks patient doing well rest ct current mgmt cc time 40 min
--- NOTE | 2018-03-06 21:41 | PN ---
Progress Note, Physician History of Present Illness: No new complaints - Current Medication List Current Medications: Active Medications Acetaminophen (Tylenol -) 650 mg PO Q6H PRN PRN Reason: FEVER Finasteride (Proscar -) 5 mg PO DAILY [facility] Ampicillin Sodium 0.5 gm/ (Sodium Chloride) 50 mls @ 100 mls/hr IVPB BID@0600, 1800 [facility] Last Admin: 03/06/18 17:05 Dose: 100 mls/hr Ertapenem 0.5 gm/ Sodium (Chloride) 50 mls @ 100 mls/hr IVPB DAILY [facility] PRN Reason: Protocol Sodium Chloride (Normal Saline -) 1,000 mls @ 75 mls/hr IV ASDIR [facility] Last Admin: 03/06/18 11:21 Dose: Not Given Insulin Aspart (Novolog Vial Sliding Scale -) 1 vial SQ TIDAC [facility] PRN Reason: Protocol Last Admin: 03/06/18 17:06 Dose: 2 units Pantoprazole Sodium (Protonix -) 40 mg PO DAILY [facility] Zolpidem Tartrate (Ambien -) 5 mg PO HS PRN PRN Reason: INSOMNIA - Objective Vital Signs: Vital Signs Temperature 98.2 F 03/06/18 14:00 Pulse Rate 79 03/06/18 16:00 Respiratory Rate 16 03/06/18 20:46 Blood Pressure 141/95 03/06/18 16:00 O2 Sat by Pulse Oximetry (%) 96 03/06/18 20:46 Neck: Yes: WNL, Supple Cardiovascular: Yes: WNL, Regular Rate and Rhythm Respiratory: Yes: WNL, Regular, CTA Bilaterally Gastrointestinal: Yes: WNL, Normal Bowel Sounds, Soft, Other ((+) b/l nephrostomy tubes) Labs: CBC, BMP 03/06/18 05:15 03/06/18 05:15 INR, PTT INR 1.34 (0.82-1.09) H 03/05/18 05:55 Problem List - Problems (1) Sepsis Assessment/Plan: Bacteremia due to E.Coli/lacotse fermenting neg bacilli and Grp D strept or enterococcus UTI Cont IVF Cont IV ampicillin/ertapenem Vital signs improving BP improved Follow cultures Code(s): A41.9 - SEPSIS, UNSPECIFIED ORGANISM (2) ARF (acute renal failure) Assessment/Plan: S/P placement Lt nephrostomy tube Acute on chronic renal failure Cont IVF Improving bun/creatinine Code(s): N17.9 - ACUTE KIDNEY FAILURE, UNSPECIFIED (3) Anemia Assessment/Plan: Cont to monitor H/H wc has improved Transfuse PRBC's as indicated Code(s): D64.9 - ANEMIA, UNSPECIFIED (4) BPH (benign prostatic hyperplasia) Assessment/Plan: Cont finasteride Code(s): N40.0 - BENIGN PROSTATIC HYPERPLASIA WITHOUT LOWER URINRY TRACT SYMP (5) Bladder cancer Assessment/Plan: Unclear at this point however pt may have outpt appointment w/ urological oncologist Spoke to son who wants second opinion w/ oncologist Code(s): C67.9 - MALIGNANT NEOPLASM OF BLADDER, UNSPECIFIED (6) Hypertension Assessment/Plan: Antihypertensives have been on hold due to hypotension from sepsis However cont to monitor BP wc is improving Code(s): I10 - ESSENTIAL (PRIMARY) HYPERTENSION Qualifiers: Hypertension type: other secondary hypertension Qualified Code(s): I15.8 - Other secondary hypertension
--- NOTE | 2018-03-07 00:45 | EKG ---
Test Reason : Blood Pressure : / mmHG Vent. Rate : 100 BPM Atrial Rate : 100 BPM P-R Int : 206 ms QRS Dur : 106 ms QT Int : 332 ms P-R-T Axes : 062 -44 036 degrees QTc Int : 428 ms NORMAL SINUS RHYTHM LEFT AXIS DEVIATION ABNORMAL ECG WHEN COMPARED WITH ECG OF 10-JAN-2018 14:17, VENT. RATE HAS INCREASED Confirmed by ESTHER PORTER MD ([id number]) on 03/07/2018 12:44:50 AM Referred By: Confirmed By:ESTHER PORTER MD
[2018-03-07] MEDS ORDERED: levETIRAcetam 500 MG/5 ML INJECTION VIAL IVPB ONE (05:11)
[2018-03-07] MEDS ORDERED: PT OWN MED DRAWER 7, Y5N ONE ×2 (05:13→16:33)
[2018-03-07 07:18] LABS: BASO % 0.8 % (0-2.0); EOS % 2.4 % (0-4.5); HEMATOCRIT 21.8 % (35.4-49); HEMOGLOBIN 7.2 GM/dL (11.7-16.9); LYMPH % 17.7 % (8-40); MCHC 32.9 g/dl (32.0-35.9); MEAN CELL VOLUME 59.1 fl (80-96); MEAN PLT VOLUME 9.2 fl (7.5-11.1); MONO % 8.3 % (3.8-10.2); NEUT % 70.8 % (42.8-82.8); PLATELET COUNT 130 K/MM3 (134-434); RBC 3.69 M/mm3 (4.00-5.60); RDW 18.3 % (11.9-15.9); WHITE BLOOD COUNT 6.7 K/mm3 (4.0-10.0)
[2018-03-07] MEDS: INSULIN SLIDING SCALE (NOVOLOG) 1 VIAL SQ SCH ×3 (07:18→17:17)
[2018-03-07] MEDS: AMPICILLIN IVPB SCH ×2 (07:18→17:16)
[2018-03-07] MEDS: SODIUM CHLORIDE IVPB SCH ×2 (07:18→17:16)
[2018-03-07 07:23] LABS: MCH 19.5 pg (25.7-33.7)
[2018-03-07 07:24] LABS: ADD RBC MORPHOLOGY YES
[2018-03-07 07:51] LABS: CHLORIDE 109 mmol/L (98-107); POTASSIUM 3.7 mmol/L (3.5-5.1); SODIUM 141 mmol/L (136-145)
[2018-03-07 07:57] LABS: ALBUMIN 2.6 g/dl (3.4-5.0); ALK PHOS 304 U/L (45-117); ANION GAP 6 (8-16); BILIRUBIN,TOTAL 0.9 mg/dL (0.2-1.0); BLOOD UREA NITROGEN 16 mg/dL (7-18); CALCIUM 7.7 mg/dL (8.5-10.1); CO2 26 mmol/L (21-32); CREATININE 0.8 mg/dL (0.7-1.3); GLUCOSE,RANDOM 115 mg/dL (74-106); SGOT/AST 26 U/L (15-37); SGPT/ALT 34 U/L (12-78); TOT PROT 5.6 g/dl (6.4-8.2)
[2018-03-07] MEDS: PANTOPRAZOLE 40 MG TABLET (FP) PO SCH (09:56)
[2018-03-07] MEDS: FINASTERIDE 5 MG TABLET (FP) PO SCH (09:56)
[2018-03-07] MEDS: SODIUM CHLORIDE 1,000 ML IV SCH ×2 (09:59→13:19)
[2018-03-07] MEDS: ERTAPENEM SODIUM 0.5 GM in SODIUM CHLORIDE 50 ML IVPB SCH (10:05)
[2018-03-07 11:54] LABS: ANISOCYTOSIS 2+; PLATELET ESTIMATE DECREASED
[2018-03-07 12:04] LABS: MACROCYTOSIS 1+; OVALOCYTE 1+
--- NOTE | 2018-03-07 15:50 | PN ---
Progress Note (short form) - Note Progress Note: Feels overall better. No CP or SOB. 3 L output from bilateral nephrostomies. Intake & Output 03/04/18 03/05/18 03/06/18 03/07/18 23:59 23:59 23:59 23:59 Intake Total 3700 1900 2600 1810 Output Total 3150 6050 4900 4950 Balance 550 -3230 2300 -3140 Weight 175 lb 3.2 oz 171 lb 173 lb 8 oz 171 lb 1.6 oz Last Vital Signs Temp Pulse Resp BP Pulse Ox 97.3 F L 70 18 136/78 96 03/07/18 07:53 03/07/18 13:24 03/07/18 13:24 03/07/18 13:24 03/07/18 07:55 Active Medications Acetaminophen (Tylenol -) 650 mg PO Q6H PRN PRN Reason: FEVER Finasteride (Proscar -) 5 mg PO DAILY [facility] Last Admin: 03/07/18 09:56 Dose: 5 mg Ampicillin Sodium 0.5 gm/ (Sodium Chloride) 50 mls @ 100 mls/hr IVPB BID@0600, 1800 [facility] Last Admin: 03/07/18 07:18 Dose: 100 mls/hr Ertapenem 0.5 gm/ Sodium (Chloride) 50 mls @ 100 mls/hr IVPB DAILY [facility] PRN Reason: Protocol Last Admin: 03/07/18 10:05 Dose: 100 mls/hr Sodium Chloride (Normal Saline -) 1,000 mls @ 75 mls/hr IV ASDIR [facility] Last Admin: 03/07/18 09:59 Dose: 75 mls/hr Insulin Aspart (Novolog Vial Sliding Scale -) 1 vial SQ TIDAC [facility] PRN Reason: Protocol Last Admin: 03/07/18 10:54 Dose: Not Given Pantoprazole Sodium (Protonix -) 40 mg PO DAILY [facility] Last Admin: 03/07/18 09:56 Dose: 40 mg Zolpidem Tartrate (Ambien -) 5 mg PO PRN PRN Reason: INSOMNIA Gen: NAD at rest Heart: RRR Lung: decreased breath sounds at the bases Abd: soft, nontender, +bilateral nephrostomy tube Ext: no edema Laboratory Results - last 24 hr 03/06/18 03/07/18 03/07/18 10:58 06:45 06:45 WBC 6.7 RBC 3.69 L Hgb 7.2 L Hct 21.8 L MCV 59.1 L MCH 19.5 L MCHC 32.9 RDW 18.3 H Plt Count 130 L MPV 9.2 Neutrophils % 70.8 Lymphocytes % 17.7 Monocytes % 8.3 Eosinophils % 2.4 Basophils % 0.8 Nucleated RBC % 0 Platelet Estimate Decreased Anisocytosis 2+ Microcytosis 2+ Macrocytosis 1+ Ovalocytes 1+ Sodium 141 Potassium 3.7 Chloride 109 H Carbon Dioxide 26 Anion Gap 6 L BUN 16 D Creatinine 0.8 Creat Clearance w eGFR > 60 POC Glucometer [phone] Random Glucose 115 H Calcium 7.7 L Total Bilirubin 0.9 AST 26 ALT 34 Alkaline Phosphatase 304 H Total Protein 5.6 L Albumin 2.6 L A/P UTI Polymicrobial Bacteremia Severe Sepsis improving Acute Kidney Injury Lactic Acidosis Thrombocytopenia Recurrent Bladder Cancer Recent Bilateral Hydroureteronephrosis s/p bilateral JJ stents s/p right percutaneous nephrostomy drainage Recurrent Left Hydronephrosis s/p left percutaneous nephrostomy drainage Anemia HTN DM Liver Cirrhosis - ABX per ID - monitor urine output, creatinine - monitor H/H, platelets - Normal transfusion thresholds - DVT prophylaxis Dr Samuels
--- NOTE | 2018-03-07 16:03 | PN ---
Progress Note, Physician History of Present Illness: stable doing well - Current Medication List Current Medications: Active Medications Acetaminophen (Tylenol -) 650 mg PO Q6H PRN PRN Reason: FEVER Finasteride (Proscar -) 5 mg PO DAILY [facility] Last Admin: 03/07/18 09:56 Dose: 5 mg Ampicillin Sodium 0.5 gm/ (Sodium Chloride) 50 mls @ 100 mls/hr IVPB BID@0600, 1800 [facility] Last Admin: 03/07/18 07:18 Dose: 100 mls/hr Ertapenem 0.5 gm/ Sodium (Chloride) 50 mls @ 100 mls/hr IVPB DAILY [facility] PRN Reason: Protocol Last Admin: 03/07/18 10:05 Dose: 100 mls/hr Sodium Chloride (Normal Saline -) 1,000 mls @ 75 mls/hr IV ASDIR [facility] Last Admin: 03/07/18 09:59 Dose: 75 mls/hr Insulin Aspart (Novolog Vial Sliding Scale -) 1 vial SQ TIDAC [facility] PRN Reason: Protocol Last Admin: 03/07/18 10:54 Dose: Not Given Pantoprazole Sodium (Protonix -) 40 mg PO DAILY [facility] Last Admin: 03/07/18 09:56 Dose: 40 mg Zolpidem Tartrate (Ambien -) 5 mg PO HS PRN PRN Reason: INSOMNIA - Objective Vital Signs: Vital Signs Temperature 97.3 F L 03/07/18 07:53 Pulse Rate 70 03/07/18 13:24 Respiratory Rate 18 03/07/18 13:24 Blood Pressure 136/78 03/07/18 13:24 O2 Sat by Pulse Oximetry (%) 96 03/07/18 07:55 Constitutional: Yes: No Distress, Calm Cardiovascular: Yes: Regular Rate and Rhythm Respiratory: Yes: Regular, CTA Bilaterally Gastrointestinal: Yes: Normal Bowel Sounds, Soft Genitourinary: Yes: Other (bilateral) Musculoskeletal: Yes: WNL Extremities: Yes: WNL Neurological: Yes: Alert, Oriented Psychiatric: Yes: Alert, Oriented Labs: CBC, BMP 03/07/18 06:45 03/07/18 06:45 INR, PTT INR 1.34 (0.82-1.09) H 03/05/18 05:55 Assessment/Plan ac kidney injury uti lactic acidosis rt nephrostomy tube htn dm cirrhosis of liver plan continue current mgmt continue ertapenam patient doing well
[2018-03-07] MEDS: ZOLPIDEM TARTRATE 5 MG TABLET PO PRN (22:45)
--- NOTE | 2018-03-07 22:45 | PN ---
Progress Note, Physician History of Present Illness: No new complaints - Current Medication List Current Medications: Active Medications Acetaminophen (Tylenol -) 650 mg PO Q6H PRN PRN Reason: FEVER Finasteride (Proscar -) 5 mg PO DAILY [facility] Last Admin: 03/07/18 09:56 Dose: 5 mg Ampicillin Sodium 0.5 gm/ (Sodium Chloride) 50 mls @ 100 mls/hr IVPB BID@0600, 1800 [facility] Last Admin: 03/07/18 17:16 Dose: 100 mls/hr Ertapenem 0.5 gm/ Sodium (Chloride) 50 mls @ 100 mls/hr IVPB DAILY [facility] PRN Reason: Protocol Last Admin: 03/07/18 10:05 Dose: 100 mls/hr Sodium Chloride (Normal Saline -) 1,000 mls @ 75 mls/hr IV ASDIR [facility] Last Admin: 03/07/18 13:19 Dose: 75 mls/hr Insulin Aspart (Novolog Vial Sliding Scale -) 1 vial SQ TIDAC [facility] PRN Reason: Protocol Last Admin: 03/07/18 17:17 Dose: Not Given Pantoprazole Sodium (Protonix -) 40 mg PO DAILY [facility] Last Admin: 03/07/18 09:56 Dose: 40 mg Zolpidem Tartrate (Ambien -) 5 mg PO HS PRN PRN Reason: INSOMNIA - Objective Vital Signs: Vital Signs Temperature 97.3 F L 03/07/18 07:53 Pulse Rate 70 03/07/18 13:24 Respiratory Rate 18 03/07/18 13:24 Blood Pressure 136/78 03/07/18 13:24 O2 Sat by Pulse Oximetry (%) 96 03/07/18 07:55 Constitutional: Yes: Well Nourished Neck: Yes: WNL, Supple Cardiovascular: Yes: WNL, Regular Rate and Rhythm Respiratory: Yes: WNL, Regular, CTA Bilaterally Gastrointestinal: Yes: WNL, Normal Bowel Sounds, Soft, Other ((+) nephrostomy tubes) Labs: CBC, BMP 03/07/18 06:45 03/07/18 06:45 INR, PTT INR 1.34 (0.82-1.09) H 03/05/18 05:55 Problem List - Problems (1) Sepsis Code(s): A41.9 - SEPSIS, UNSPECIFIED ORGANISM (2) ARF (acute renal failure) Code(s): N17.9 - ACUTE KIDNEY FAILURE, UNSPECIFIED (3) Anemia Code(s): D64.9 - ANEMIA, UNSPECIFIED (4) BPH (benign prostatic hyperplasia) Code(s): N40.0 - BENIGN PROSTATIC HYPERPLASIA WITHOUT LOWER URINRY TRACT SYMP (5) Bladder cancer Code(s): C67.9 - MALIGNANT NEOPLASM OF BLADDER, UNSPECIFIED (6) Hypertension Code(s): I10 - ESSENTIAL (PRIMARY) HYPERTENSION Qualifiers: Hypertension type: other secondary hypertension Qualified Code(s): I15.8 - Other secondary hypertension
[2018-03-08] MEDS ORDERED: PT OWN MED DRAWER 7, Y5N ONE ×4 (08:03→21:12)
[2018-03-08] MEDS: SODIUM CHLORIDE IVPB SCH ×2 (08:07→17:01)
[2018-03-08] MEDS: AMPICILLIN IVPB SCH ×2 (08:07→17:01)
[2018-03-08] MEDS: FINASTERIDE 5 MG TABLET (FP) PO SCH (09:13)
[2018-03-08] MEDS: PANTOPRAZOLE 40 MG TABLET (FP) PO SCH (09:13)
[2018-03-08] MEDS: ERTAPENEM SODIUM 0.5 GM in SODIUM CHLORIDE 50 ML IVPB SCH (09:44)
[2018-03-08] MEDS: INSULIN SLIDING SCALE (NOVOLOG) 1 VIAL SQ SCH ×3 (09:48→16:43)
[2018-03-08] MEDS: SODIUM CHLORIDE 1,000 ML IV SCH (11:30)
--- NOTE | 2018-03-08 16:08 | PN ---
Progress Note, Physician History of Present Illness: doing well no complaints both nephrostomy tubes draining well in the room - Current Medication List Current Medications: Active Medications Acetaminophen (Tylenol -) 650 mg PO Q6H PRN PRN Reason: FEVER Finasteride (Proscar -) 5 mg PO DAILY [facility] Last Admin: 03/08/18 09:13 Dose: 5 mg Ampicillin Sodium 0.5 gm/ (Sodium Chloride) 50 mls @ 100 mls/hr IVPB BID@0600, 1800 [facility] Last Admin: 03/08/18 08:07 Dose: 100 mls/hr Ertapenem 0.5 gm/ Sodium (Chloride) 50 mls @ 100 mls/hr IVPB DAILY [facility]; Protocol Last Admin: 03/08/18 09:44 Dose: 100 mls/hr Sodium Chloride (Normal Saline -) 1,000 mls @ 75 mls/hr IV ASDIR [facility] Last Admin: 03/08/18 11:30 Dose: 75 mls/hr Insulin Aspart (Novolog Vial Sliding Scale -) 1 vial SQ TIDAC [facility]; Protocol Last Admin: 03/08/18 11:30 Dose: Not Given Pantoprazole Sodium (Protonix -) 40 mg PO DAILY [facility] Last Admin: 03/08/18 09:13 Dose: 40 mg Zolpidem Tartrate (Ambien -) 5 mg PO HS PRN PRN Reason: INSOMNIA Last Admin: 03/07/18 22:45 Dose: 5 mg - Objective Vital Signs: Vital Signs Temperature 98.4 F 03/08/18 14:16 Pulse Rate 64 03/08/18 14:16 Respiratory Rate 16 03/08/18 14:16 Blood Pressure 172/85 03/08/18 10:00 O2 Sat by Pulse Oximetry (%) 95 03/08/18 10:00 Constitutional: Yes: No Distress, Calm Cardiovascular: Yes: S1, S2 Respiratory: Yes: Regular, CTA Bilaterally Gastrointestinal: Yes: Normal Bowel Sounds, Soft Genitourinary: Yes: Other (bilateral external nephrostomy tubes in place) Musculoskeletal: Yes: WNL Extremities: Yes: WNL Neurological: Yes: Alert, Oriented Psychiatric: Yes: Alert, Oriented Labs: CBC, BMP 03/07/18 06:45 03/07/18 06:45 INR, PTT INR 1.34 (0.82-1.09) H 03/05/18 05:55 Assessment/Plan ac kidney injury uti lactic acidosis rt nephrostomy tube htn dm cirrhosis of liver plan continue current mgmt patient to get ertapenam for 14 days with ampicillin we can switch ampicillin to oral probably tomorrow
[2018-03-08] MEDS ORDERED: INSULIN (NOVOLOG) ASPART 100 UNITS/ML 10ML VIAL ONE (16:41)
--- NOTE | 2018-03-08 20:09 | PN ---
Progress Note (short form) - Note Progress Note: UROLOGY NOTE. PT. with umair. pcn tubes,vss, afebrile ,good urine output imp. urologicly ok for d/c
--- NOTE | 2018-03-08 21:11 | PN ---
Progress Note, Physician History of Present Illness: No new complaints - Current Medication List Current Medications: Active Medications Acetaminophen (Tylenol -) 650 mg PO Q6H PRN PRN Reason: FEVER Finasteride (Proscar -) 5 mg PO DAILY [facility] Last Admin: 03/08/18 09:13 Dose: 5 mg Ampicillin Sodium 0.5 gm/ (Sodium Chloride) 50 mls @ 100 mls/hr IVPB BID@0600, 1800 [facility] Last Admin: 03/08/18 17:01 Dose: 100 mls/hr Ertapenem 0.5 gm/ Sodium (Chloride) 50 mls @ 100 mls/hr IVPB DAILY [facility]; Protocol Last Admin: 03/08/18 09:44 Dose: 100 mls/hr Sodium Chloride (Normal Saline -) 1,000 mls @ 75 mls/hr IV ASDIR [facility] Last Admin: 03/08/18 11:30 Dose: 75 mls/hr Insulin Aspart (Novolog Vial Sliding Scale -) 1 vial SQ TIDAC [facility]; Protocol Last Admin: 03/08/18 16:43 Dose: 2 units Pantoprazole Sodium (Protonix -) 40 mg PO DAILY [facility] Last Admin: 03/08/18 09:13 Dose: 40 mg Zolpidem Tartrate (Ambien -) 5 mg PO HS PRN PRN Reason: INSOMNIA Last Admin: 03/07/18 22:45 Dose: 5 mg - Objective Vital Signs: Vital Signs Temperature 98.4 F 03/08/18 14:16 Pulse Rate 64 03/08/18 14:16 Respiratory Rate 16 03/08/18 14:16 Blood Pressure 172/85 03/08/18 10:00 O2 Sat by Pulse Oximetry (%) 95 03/08/18 10:00 Constitutional: Yes: Well Nourished HENT: Yes: WNL Neck: Yes: WNL, Supple, Trachea Midline Cardiovascular: Yes: WNL, Regular Rate and Rhythm Respiratory: Yes: WNL, Regular, CTA Bilaterally Gastrointestinal: Yes: WNL, Normal Bowel Sounds, Soft, Other ((+) b/l nephrostomy tubes) Labs: CBC, BMP 03/07/18 06:45 03/07/18 06:45 INR, PTT INR 1.34 (0.82-1.09) H 03/05/18 05:55 Problem List - Problems (1) Sepsis Assessment/Plan: Bacteremia due to E.Coli/lacotse fermenting neg bacilli and Grp D strept or enterococcus UTI Possible change IV ampicillin to PO tomorrow as per ID Cont IV ertapenem x 14 days Spoke to pt about PIC line placement and outpt IV antibxs Follow cultures Code(s): A41.9 - SEPSIS, UNSPECIFIED ORGANISM (2) ARF (acute renal failure) Code(s): N17.9 - ACUTE KIDNEY FAILURE, UNSPECIFIED (3) Anemia Assessment/Plan: Cont to monitor H/H Transfuse PRBC's as indicated Code(s): D64.9 - ANEMIA, UNSPECIFIED (4) BPH (benign prostatic hyperplasia) Code(s): N40.0 - BENIGN PROSTATIC HYPERPLASIA WITHOUT LOWER URINRY TRACT SYMP (5) Bladder cancer Code(s): C67.9 - MALIGNANT NEOPLASM OF BLADDER, UNSPECIFIED (6) Hypertension Code(s): I10 - ESSENTIAL (PRIMARY) HYPERTENSION Qualifiers: Hypertension type: other secondary hypertension Qualified Code(s): I15.8 - Other secondary hypertension
[2018-03-08] MEDS: ZOLPIDEM TARTRATE 5 MG TABLET PO PRN (23:00)
[2018-03-09] MEDS: AMPICILLIN IVPB SCH ×2 (05:10→18:53)
[2018-03-09] MEDS: SODIUM CHLORIDE IVPB SCH ×2 (05:10→18:53)
[2018-03-09] MEDS: INSULIN SLIDING SCALE (NOVOLOG) 1 VIAL SQ SCH ×3 (06:25→16:00)
[2018-03-09 06:54] LABS: EOS % 4.2 % (0-4.5); HEMATOCRIT 24.9 % (35.4-49); HEMOGLOBIN 7.9 GM/dL (11.7-16.9); LYMPH % 19.4 % (8-40); MCHC 31.9 g/dl (32.0-35.9); MEAN PLT VOLUME 9.3 fl (7.5-11.1); MONO % 6.9 % (3.8-10.2); NEUT % 68.5 % (42.8-82.8); PLATELET COUNT 166 K/MM3 (134-434); RBC 4.15 M/mm3 (4.00-5.60); RDW 18.9 % (11.9-15.9); WHITE BLOOD COUNT 5.9 K/mm3 (4.0-10.0)
[2018-03-09 07:24] LABS: CHLORIDE 108 mmol/L (98-107); POTASSIUM 3.8 mmol/L (3.5-5.1); SODIUM 142 mmol/L (136-145)
[2018-03-09 07:28] LABS: ALBUMIN 2.7 g/dl (3.4-5.0); ALK PHOS 330 U/L (45-117); ANION GAP 6 (8-16); BILIRUBIN,TOTAL 0.9 mg/dL (0.2-1.0); BLOOD UREA NITROGEN 13 mg/dL (7-18); CALCIUM 7.9 mg/dL (8.5-10.1); CO2 28 mmol/L (21-32); CREATININE 0.8 mg/dL (0.7-1.3); GLUCOSE,RANDOM 123 mg/dL (74-106); SGOT/AST 23 U/L (15-37); SGPT/ALT 33 U/L (12-78); TOT PROT 5.9 g/dl (6.4-8.2)
[2018-03-09 07:49] LABS: MCH 19.1 pg (25.7-33.7)
[2018-03-09] MEDS ORDERED: PT OWN MED DRAWER 7, Y5N ONE ×2 (10:27→18:47)
[2018-03-09] MEDS: PANTOPRAZOLE 40 MG TABLET (FP) PO SCH (10:29)
[2018-03-09] MEDS: ERTAPENEM SODIUM 0.5 GM in SODIUM CHLORIDE 50 ML IVPB SCH (10:29)
[2018-03-09] MEDS: FINASTERIDE 5 MG TABLET (FP) PO SCH (10:29)
--- NOTE | 2018-03-09 13:25 | PN ---
Progress Note, Physician History of Present Illness: dong well no complaints heamaturia noted from the rt nephrostomy tube patient otherwise doing well - Current Medication List Current Medications: Active Medications Acetaminophen (Tylenol -) 650 mg PO Q6H PRN PRN Reason: FEVER Finasteride (Proscar -) 5 mg PO DAILY [facility] Last Admin: 03/09/18 10:29 Dose: 5 mg Ampicillin Sodium 0.5 gm/ (Sodium Chloride) 50 mls @ 100 mls/hr IVPB BID@0600, 1800 [facility] Last Admin: 03/09/18 05:10 Dose: 100 mls/hr Ertapenem 0.5 gm/ Sodium (Chloride) 50 mls @ 100 mls/hr IVPB DAILY [facility]; Protocol Last Admin: 03/09/18 10:29 Dose: 100 mls/hr Insulin Aspart (Novolog Vial Sliding Scale -) 1 vial SQ TIDAC [facility]; Protocol Last Admin: 03/09/18 06:25 Dose: Not Given Pantoprazole Sodium (Protonix -) 40 mg PO DAILY [facility] Last Admin: 03/09/18 10:29 Dose: 40 mg - Objective Vital Signs: Vital Signs Temperature 98.3 F 03/09/18 13:23 Pulse Rate 82 03/09/18 13:23 Respiratory Rate 16 03/09/18 13:23 Blood Pressure 143/75 03/09/18 13:23 O2 Sat by Pulse Oximetry (%) 95 03/08/18 10:00 Constitutional: Yes: No Distress, Calm Neck: Yes: Supple Cardiovascular: Yes: Regular Rate and Rhythm Respiratory: Yes: Regular, CTA Bilaterally Gastrointestinal: Yes: Normal Bowel Sounds, Soft Genitourinary: Yes: Hematuria, Other (bilateral nephrostomy tube in place) Musculoskeletal: Yes: WNL Extremities: Yes: WNL Neurological: Yes: Alert, Oriented Psychiatric: Yes: Alert, Oriented Labs: CBC, BMP 03/09/18 05:45 03/09/18 05:45 INR, PTT INR 1.34 (0.82-1.09) H 03/05/18 05:55 Assessment/Plan ac kidney injury uti lactic acidosis rt nephrostomy tube htn dm cirrhosis of liver plan continue current mgmt patient to get ertapenam for 14 days end date witll be march 17 with ampicillin switch to oral ampicillin on discharge both abx to finish on march 17
[2018-03-09 15:13] LABS: ANISOCYTOSIS 2+; PLATELET ESTIMATE DECREASED; TARGET CELLS 1+
--- NOTE | 2018-03-09 15:47 | PN ---
Progress Note (short form) - Note Progress Note: Feels overall better. No CP or SOB. Some hematutria noted in the right nephrostomy. Clinically feels well. Intake & Output 03/06/18 03/07/18 03/08/18 03/09/18 23:59 23:59 23:59 23:59 Intake Total 2600 1810 1000 950 Output Total 4900 7100 3300 4150 Balance -2300 -5290 -2300 -3200 Weight 173 lb 8 oz 171 lb 1.6 oz 167 lb Last Vital Signs Temp Pulse Resp BP Pulse Ox 98.3 F 82 16 143/75 96 03/09/18 14:00 03/09/18 14:00 03/09/18 14:00 03/09/18 14:00 03/09/18 09:00 Active Medications Acetaminophen (Tylenol -) 650 mg PO Q6H PRN PRN Reason: FEVER Finasteride (Proscar -) 5 mg PO DAILY [facility] Last Admin: 03/09/18 10:29 Dose: 5 mg Ampicillin Sodium 0.5 gm/ (Sodium Chloride) 50 mls @ 100 mls/hr IVPB BID@0600, 1800 [facility] Last Admin: 03/09/18 05:10 Dose: 100 mls/hr Ertapenem 0.5 gm/ Sodium (Chloride) 50 mls @ 100 mls/hr IVPB DAILY [facility]; Protocol Last Admin: 03/09/18 10:29 Dose: 100 mls/hr Insulin Aspart (Novolog Vial Sliding Scale -) 1 vial SQ TIDAC [facility]; Protocol Last Admin: 03/09/18 11:00 Dose: Not Given Pantoprazole Sodium (Protonix -) 40 mg PO DAILY [facility] Last Admin: 03/09/18 10:29 Dose: 40 mg Gen: NAD at rest Heart: RRR Lung: decreased breath sounds at the bases Abd: soft, nontender, +bilateral nephrostomy tube Ext: no edema Laboratory Results - last 24 hr 03/09/18 03/09/18 05:45 05:45 WBC 5.9 RBC 4.15 Hgb 7.9 L Hct 24.9 L MCV 60.0 L MCH 19.1 L MCHC 31.9 L RDW 18.9 H Plt Count 166 D MPV 9.3 Neutrophils % 68.5 Neutrophils % (Manual) 61.0 D Band Neutrophils % 0.0 Lymphocytes % 19.4 Lymphocytes % (Manual) 23.2 D Monocytes % 6.9 Monocytes % (Manual) 12 H D Eosinophils % 4.2 Eosinophils % (Manual) 3.2 D Basophils % 1.0 Basophils % (Manual) 0.0 Myelocytes % (Man) 0 Promyelocytes % (Man) 0 Blast Cells % (Manual) 0 Nucleated RBC % 0 Metamyelocytes 1 D Hypochromia 1+ Platelet Estimate Decreased Anisocytosis 2+ Microcytosis 2+ Target Cells 1+ Schistocytes 1+ Sodium 142 Potassium 3.8 Chloride 108 H Carbon Dioxide 28 Anion Gap 6 L BUN 13 Creatinine 0.8 Creat Clearance w eGFR > 60 Random Glucose 123 H Calcium 7.9 L Total Bilirubin 0.9 AST 23 ALT 33 Alkaline Phosphatase 330 H Total Protein 5.9 L Albumin 2.7 L A/P UTI Polymicrobial Bacteremia Severe Sepsis improving Acute Kidney Injury Lactic Acidosis Thrombocytopenia Recurrent Bladder Cancer Recent Bilateral Hydroureteronephrosis s/p bilateral JJ stents s/p right percutaneous nephrostomy drainage Recurrent Left Hydronephrosis s/p left percutaneous nephrostomy drainage Anemia HTN DM Liver Cirrhosis - Monitor Nephrostomy outputs - ABX per ID - monitor urine output, creatinine - monitor H/H, platelets - Normal transfusion thresholds - DVT prophylaxis Dr Samuels
--- NOTE | 2018-03-09 22:43 | PN ---
Progress Note, Physician - Current Medication List Current Medications: Active Medications Acetaminophen (Tylenol -) 650 mg PO Q6H PRN PRN Reason: FEVER Finasteride (Proscar -) 5 mg PO DAILY [facility] Last Admin: 03/09/18 10:29 Dose: 5 mg Ampicillin Sodium 0.5 gm/ (Sodium Chloride) 50 mls @ 100 mls/hr IVPB BID@0600, 1800 [facility] Last Admin: 03/09/18 18:53 Dose: 100 mls/hr Ertapenem 0.5 gm/ Sodium (Chloride) 50 mls @ 100 mls/hr IVPB DAILY [facility]; Protocol Last Admin: 03/09/18 10:29 Dose: 100 mls/hr Insulin Aspart (Novolog Vial Sliding Scale -) 1 vial SQ TIDAC [facility]; Protocol Last Admin: 03/09/18 16:00 Dose: Not Given Pantoprazole Sodium (Protonix -) 40 mg PO DAILY [facility] Last Admin: 03/09/18 10:29 Dose: 40 mg - Objective Vital Signs: Vital Signs Temperature 98.3 F 03/09/18 14:00 Pulse Rate 84 03/09/18 18:35 Respiratory Rate 18 03/09/18 21:00 Blood Pressure 136/90 03/09/18 18:35 O2 Sat by Pulse Oximetry (%) 96 03/09/18 09:00 Constitutional: Yes: Well Nourished Cardiovascular: Yes: WNL, Regular Rate and Rhythm Respiratory: Yes: WNL, Regular, CTA Bilaterally Gastrointestinal: Yes: WNL, Normal Bowel Sounds, Soft, Other ((+) nephrostomy tubes) Labs: CBC, BMP 03/09/18 05:45 03/09/18 05:45 INR, PTT INR 1.34 (0.82-1.09) H 03/05/18 05:55 Problem List - Problems (1) Sepsis Assessment/Plan: Bacteremia due to E.Coli/lacotse fermenting neg bacilli and Grp D strept or enterococcus UTI Possible change IV ampicillin to PO tomorrow as per ID Cont IV ertapenem x 14 days wc is to finish on 03/17/18 DC planning for am w/ PIC line and IV ertapenem until 03/17/18 Will change to IV ampicillin in am Code(s): A41.9 - SEPSIS, UNSPECIFIED ORGANISM (2) ARF (acute renal failure) Assessment/Plan: S/P placement Lt nephrostomy tube Acute on chronic renal failure Code(s): N17.9 - ACUTE KIDNEY FAILURE, UNSPECIFIED (3) Anemia Assessment/Plan: Cont to monitor H/H Transfuse PRBC's as indicated Code(s): D64.9 - ANEMIA, UNSPECIFIED (4) BPH (benign prostatic hyperplasia) Code(s): N40.0 - BENIGN PROSTATIC HYPERPLASIA WITHOUT LOWER URINRY TRACT SYMP (5) Bladder cancer Code(s): C67.9 - MALIGNANT NEOPLASM OF BLADDER, UNSPECIFIED (6) Hypertension Code(s): I10 - ESSENTIAL (PRIMARY) HYPERTENSION Qualifiers: Hypertension type: other secondary hypertension Qualified Code(s): I15.8 - Other secondary hypertension
[2018-03-10] MEDS ORDERED: ZOLPIDEM TARTRATE 5 MG TABLET PO PRN (00:05)
[2018-03-10] MEDS: SODIUM CHLORIDE IVPB SCH (06:34)
[2018-03-10] MEDS: AMPICILLIN IVPB SCH (06:34)
[2018-03-10] MEDS: INSULIN SLIDING SCALE (NOVOLOG) 1 VIAL SQ SCH ×2 (06:35→11:42)
[2018-03-10] MEDS: PANTOPRAZOLE 40 MG TABLET (FP) PO SCH (09:17)
[2018-03-10] MEDS: FINASTERIDE 5 MG TABLET (FP) PO SCH (09:17)
[2018-03-10] MEDS: ERTAPENEM SODIUM 0.5 GM in SODIUM CHLORIDE 50 ML IVPB SCH (09:43)
[2018-03-10 10:41] VITALS: BP 153/84; PULSE 88; TEMP 98.1
--- NOTE | 2018-03-10 11:38 | PN ---
Progress Note (short form) - Note Progress Note: Feels overall better. No CP or SOB. Improving hematutria in the right nephrostomy. Clinically feels well. Intake & Output 03/07/18 03/08/18 03/09/18 03/10/18 23:59 23:59 23:59 23:59 Intake Total 1810 1000 1190 290 Output Total 7100 3300 4150 1400 Balance -4390 -2300 -2960 -1110 Weight 171 lb 1.6 oz 167 lb 165 lb 9 oz Last Vital Signs Temp Pulse Resp BP Pulse Ox 98.1 F 88 18 153/84 96 03/10/18 10:00 03/10/18 10:00 03/10/18 10:00 03/10/18 10:00 03/09/18 09:00 Active Medications Acetaminophen (Tylenol -) 650 mg PO Q6H PRN PRN Reason: FEVER Finasteride (Proscar -) 5 mg PO DAILY [facility] Last Admin: 03/10/18 09:17 Dose: 5 mg Ampicillin Sodium 0.5 gm/ (Sodium Chloride) 50 mls @ 100 mls/hr IVPB BID@0600, 1800 [facility] Last Admin: 03/10/18 06:34 Dose: 100 mls/hr Ertapenem 0.5 gm/ Sodium (Chloride) 50 mls @ 100 mls/hr IVPB DAILY [facility]; Protocol Last Admin: 03/10/18 09:43 Dose: 100 mls/hr Insulin Aspart (Novolog Vial Sliding Scale -) 1 vial SQ TIDAC [facility]; Protocol Last Admin: 03/10/18 06:35 Dose: 2 units Pantoprazole Sodium (Protonix -) 40 mg PO DAILY [facility] Last Admin: 03/10/18 09:17 Dose: 40 mg Zolpidem Tartrate (Ambien -) 5 mg PO HS PRN PRN Reason: INSOMNIA Last Admin: 03/10/18 00:21 Dose: 5 mg Gen: NAD at rest Heart: RRR Lung: decreased breath sounds at the bases Abd: soft, nontender, +bilateral nephrostomy tube Ext: no edema Laboratory Results - last 24 hr 03/09/18 05:45 Plt Count 166 D MPV 9.3 Neutrophils % (Manual) 61.0 D Band Neutrophils % 0.0 Lymphocytes % (Manual) 23.2 D Monocytes % (Manual) 12 H D Eosinophils % (Manual) 3.2 D Basophils % (Manual) 0.0 Myelocytes % (Man) 0 Promyelocytes % (Man) 0 Blast Cells % (Manual) 0 Metamyelocytes 1 D Hypochromia 1+ Platelet Estimate Decreased Anisocytosis 2+ Microcytosis 2+ Target Cells 1+ Schistocytes 1+ A/P UTI Polymicrobial Bacteremia Severe Sepsis improving Acute Kidney Injury Lactic Acidosis Thrombocytopenia Recurrent Bladder Cancer Recent Bilateral Hydroureteronephrosis s/p bilateral JJ stents s/p right percutaneous nephrostomy drainage Recurrent Left Hydronephrosis s/p left percutaneous nephrostomy drainage Anemia HTN DM Liver Cirrhosis - ABX per ID - DVT prophylaxis - D/C planning Dr Samuels
--- NOTE | 2018-03-10 15:04 | PN ---
Progress Note, Physician History of Present Illness: doing well hematuria resolved - Current Medication List Current Medications: Active Medications Acetaminophen (Tylenol -) 650 mg PO Q6H PRN PRN Reason: FEVER Finasteride (Proscar -) 5 mg PO DAILY [facility] Last Admin: 03/10/18 09:17 Dose: 5 mg Ampicillin Sodium 0.5 gm/ (Sodium Chloride) 50 mls @ 100 mls/hr IVPB BID@0600, 1800 [facility] Last Admin: 03/10/18 06:34 Dose: 100 mls/hr Ertapenem 0.5 gm/ Sodium (Chloride) 50 mls @ 100 mls/hr IVPB DAILY [facility]; Protocol Last Admin: 03/10/18 09:43 Dose: 100 mls/hr Insulin Aspart (Novolog Vial Sliding Scale -) 1 vial SQ TIDAC [facility]; Protocol Last Admin: 03/10/18 11:42 Dose: Not Given Pantoprazole Sodium (Protonix -) 40 mg PO DAILY [facility] Last Admin: 03/10/18 09:17 Dose: 40 mg Zolpidem Tartrate (Ambien -) 5 mg PO HS PRN PRN Reason: INSOMNIA Last Admin: 03/10/18 00:21 Dose: 5 mg - Objective Vital Signs: Vital Signs Temperature 98.1 F 03/10/18 10:00 Pulse Rate 88 03/10/18 10:00 Respiratory Rate 18 03/10/18 10:00 Blood Pressure 153/84 03/10/18 10:00 O2 Sat by Pulse Oximetry (%) 96 03/09/18 09:00 Constitutional: Yes: No Distress, Calm Cardiovascular: Yes: Regular Rate and Rhythm Respiratory: Yes: Regular, CTA Bilaterally Gastrointestinal: Yes: Normal Bowel Sounds, Soft Musculoskeletal: Yes: WNL Extremities: Yes: WNL Neurological: Yes: Alert, Oriented Psychiatric: Yes: Alert, Oriented Labs: CBC, BMP 03/09/18 05:45 03/09/18 05:45 INR, PTT INR 1.34 (0.82-1.09) H 03/05/18 05:55 Assessment/Plan UTI Polymicrobial Bacteremia Severe Sepsis improving Acute Kidney Injury Lactic Acidosis Thrombocytopenia Recurrent Bladder Cancer Recent Bilateral Hydroureteronephrosis s/p bilateral JJ stents s/p right percutaneous nephrostomy drainage Recurrent Left Hydronephrosis s/p left percutaneous nephrostomy drainage Anemia HTN DM Liver Cirrhosis patient will complete course of abx plan continue current mgmt continue ertapenam patient doing well complete course of abx
== END 2018-03-10 15:35 | disposition home or self-care (01) | DRG 698 ==
LOC: JER 11:35 → JERBED 13:55 → JICU 16:24 → J2W 03-06 11:19
PROVIDERS: ADMIT Internal Medicine; ATTEND Internal Medicine
PROC: 0T9430Z Drainage of Left Kidney Pelvis with Drainage Device, Percutaneous Approach (ICD-10-PCS; principal; 2018-03-04)
PROC: 02HV33Z Insertion of Infusion Device into Superior Vena Cava, Percutaneous Approach (ICD-10-PCS; 2018-03-10)
PROC: B548ZZA Ultrasonography of Superior Vena Cava, Guidance (ICD-10-PCS; 2018-03-10)
DX: T83.512A Infection and inflammatory reaction due to nephrostomy catheter, initial encounter (principal); A41.9 Sepsis, unspecified organism; E87.2 Acidosis; N17.9 Acute kidney failure, unspecified; N39.0 Urinary tract infection, site not specified; N13.30 Unspecified hydronephrosis; D68.9 Coagulation defect, unspecified; Z87.891 Personal history of nicotine dependence; C67.9 Malignant neoplasm of bladder, unspecified; Z79.84 Long term (current) use of oral hypoglycemic drugs; K74.60 Unspecified cirrhosis of liver; N40.0 Benign prostatic hyperplasia without lower urinary tract symptoms; D64.9 Anemia, unspecified; E11.22 Type 2 diabetes mellitus with diabetic chronic kidney disease; I12.9 Hypertensive chronic kidney disease with stage 1 through stage 4 chronic kidney disease, or unspecified chronic kidney disease; N18.9 Chronic kidney disease, unspecified; D69.6 Thrombocytopenia, unspecified; Y83.8 Other surgical procedures as the cause of abnormal reaction of the patient, or of later complication, without mention of misadventure at the time of the procedure
CPT/HCPCS: 36415; 36569; 50432; 50693; 71045-TC-FY; 74176-TC; 77001-TC-FY; 80053; 81003; 81015; 82436; 82550; 82570; 82803; 82962; 83605; 83735; 84100; 84133; 84300; 84484; 85025; 85027; 85610; 85730; 86850; 86900; 86901; 87040; 87070; 87075; 87086; 87186; 87205; 93005; 93010; 97116-GP; 97162-GP; 99285-25; C1751; C1769; C1887; J0131; J7030

== ENCOUNTER 2018-03-11 11:41 | Day surgery (SDC) | payer OTHER ==
[2018-03-11 12:29] VITALS: BP 137/83; PULSE 75; TEMP 98
[2018-03-11] MEDS ORDERED: ERTAPENEM SODIUM 1 GM in SODIUM CHLORIDE 100 ML IVPB ONE (12:45)
== END 2018-03-11 14:24 | disposition home or self-care (01) ==
LOC: J7W 11:41 → JINFUSION 11:41
PROVIDERS: ATTEND Internal Medicine Infectious Disease
DX: A41.9 Sepsis, unspecified organism (principal); N39.0 Urinary tract infection, site not specified; E11.22 Type 2 diabetes mellitus with diabetic chronic kidney disease; Z79.4 Long term (current) use of insulin
CPT/HCPCS: 96365

== ENCOUNTER 2018-03-12 11:34 | Day surgery (SDC) | payer OTHER ==
[2018-03-12 12:12] VITALS: TEMP 98.4
[2018-03-12] MEDS ORDERED: ERTAPENEM SODIUM 1 GM in SODIUM CHLORIDE 100 ML IVPB ONE (12:15)
[2018-03-12 13:53] VITALS: BP 100/60; PULSE 74
== END 2018-03-12 13:10 | disposition home or self-care (01) ==
LOC: JINFUSION 11:34 → J7W 11:34 → JINFUSION 13:10
PROVIDERS: ATTEND Internal Medicine Infectious Disease
DX: A41.9 Sepsis, unspecified organism (principal); N39.0 Urinary tract infection, site not specified; E11.22 Type 2 diabetes mellitus with diabetic chronic kidney disease; Z79.4 Long term (current) use of insulin
CPT/HCPCS: 96365

== ENCOUNTER 2018-03-13 11:23 | Day surgery (SDC) | payer OTHER ==
[2018-03-13 12:51] VITALS: BP 117/87; PULSE 74; TEMP 97.6
[2018-03-13] MEDS ORDERED: ERTAPENEM SODIUM 1 GM in SODIUM CHLORIDE 50 ML IVPB ONE (13:00)
== END 2018-03-13 13:13 | disposition home or self-care (01) ==
LOC: JINFUSION 11:23 → J7W 11:24 → JINFUSION 13:13
PROVIDERS: ATTEND Internal Medicine Infectious Disease
DX: A41.9 Sepsis, unspecified organism (principal); E11.22 Type 2 diabetes mellitus with diabetic chronic kidney disease; N39.0 Urinary tract infection, site not specified; Z79.4 Long term (current) use of insulin
CPT/HCPCS: 96365; 96366

== ENCOUNTER 2018-03-14 11:23 | Day surgery (SDC) | payer OTHER ==
[2018-03-14] MEDS ORDERED: ERTAPENEM SODIUM 1 GM in SODIUM CHLORIDE 100 ML IVPB ONE (11:45)
[2018-03-14] MEDS ORDERED: ERTAPENEM SODIUM 1 GM VIAL ONE (12:45)
[2018-03-14 13:18] VITALS: TEMP 98.1
[2018-03-14 13:57] VITALS: BP 120/70; PULSE 80
== END 2018-03-14 13:45 | disposition home or self-care (01) ==
LOC: JASU-ENDO 11:23 → JINFUSION 11:23 → JASU-ENDO 13:45
PROVIDERS: ATTEND Internal Medicine Infectious Disease
DX: A41.9 Sepsis, unspecified organism (principal); N39.0 Urinary tract infection, site not specified; E11.22 Type 2 diabetes mellitus with diabetic chronic kidney disease; Z79.4 Long term (current) use of insulin
CPT/HCPCS: 96365

== ENCOUNTER 2018-03-15 11:14 | Day surgery (SDC) | payer OTHER ==
[2018-03-15] MEDS ORDERED: ERTAPENEM SODIUM 1 GM VIAL ONE (11:27)
[2018-03-15] MEDS ORDERED: ERTAPENEM SODIUM 1 GM in SODIUM CHLORIDE 100 ML IVPB ONE (11:45)
[2018-03-15 12:50] VITALS: BP 116/70; PULSE 84; TEMP 97.7
== END 2018-03-15 12:20 | disposition home or self-care (01) ==
LOC: JINFUSION 11:14
PROVIDERS: ATTEND Internal Medicine Infectious Disease
DX: A41.9 Sepsis, unspecified organism (principal); N39.0 Urinary tract infection, site not specified; E11.22 Type 2 diabetes mellitus with diabetic chronic kidney disease; Z79.4 Long term (current) use of insulin
CPT/HCPCS: 96365

== ENCOUNTER 2018-03-16 11:06 | Day surgery (SDC) | payer OTHER ==
[2018-03-16] MEDS ORDERED: ERTAPENEM SODIUM 1 GM VIAL ONE (11:25)
[2018-03-16] MEDS ORDERED: SODIUM CHLORIDE 100 ML IVPB ONE (11:26)
[2018-03-16 11:57] VITALS: BP 107/57; PULSE 88; TEMP 98.1
[2018-03-17] MEDS ORDERED: ERTAPENEM SODIUM 1 GM in SODIUM CHLORIDE 50 ML IVPB ONE (08:45)
== END 2018-03-16 12:25 | disposition home or self-care (01) ==
LOC: JINFUSION 11:06
PROVIDERS: ATTEND Internal Medicine Infectious Disease
DX: A41.9 Sepsis, unspecified organism (principal); N39.0 Urinary tract infection, site not specified; E11.22 Type 2 diabetes mellitus with diabetic chronic kidney disease; Z79.4 Long term (current) use of insulin
CPT/HCPCS: 96365

== ENCOUNTER 2018-03-17 11:42 | Day surgery (SDC) | payer OTHER ==
[2018-03-17] MEDS ORDERED: ERTAPENEM SODIUM 1 GM VIAL ONE (12:03)
[2018-03-17] MEDS ORDERED: ERTAPENEM SODIUM 1 GM in SODIUM CHLORIDE 100 ML IVPB ONE (12:15)
[2018-03-17 12:37] VITALS: TEMP 98.1
[2018-03-17 15:01] VITALS: BP 119/62; PULSE 83
== END 2018-03-17 13:30 | disposition home or self-care (01) ==
LOC: JINFUSION 11:42
PROVIDERS: ATTEND Internal Medicine Infectious Disease
DX: A41.9 Sepsis, unspecified organism (principal); N39.0 Urinary tract infection, site not specified; E11.22 Type 2 diabetes mellitus with diabetic chronic kidney disease; Z79.4 Long term (current) use of insulin
CPT/HCPCS: 96365

== ENCOUNTER 2018-03-18 08:16 | Emergency (ER) | payer OTHER ==
[2018-03-18 08:19] VITALS: BMI 24.0
--- NOTE | 2018-03-18 09:27 | PDOC ---
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 States woke up this morning and noted the bed was wet and he had minimal drainage in his leg bag. Denies fever, pain, bleeding. States had a kink in his left nephrostomy tube a few days ago, that tube was straightened by Dr. Delgadillo office and drainage returned. This morning was concerned perhaps the collection system was malfunctioning, uncertain as to source of leak and thinks may be the stopcock or the valve but unclear. past medical history of bladder CA, HTN, NIDDM2, . 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 Pt recently received L sided ureteral stent w/ Dr. Remy Delgadillo 4 weeks ago, but was unable to place a R sided stent, so IR was consulted. Was recently discharged from the hospital for significant urosepsis. Completed course of IV antibiotics at home with PICC line removed yesterday. 03/18/18 10:09 Timing/Duration: unsure Past History - Travel Traveled outside of the country in the last 30 days: No Close contact w/someone who was outside of country & ill: No - Past Medical History Allergies/Adverse Reactions: Allergies Allergy/AdvReac Type Severity Reaction Status Date / Time No Known Allergies Allergy Verified 03/18/18 08:20 Home Medications: Ambulatory Orders Metformin HCl [Glucophage] 1,000 mg PO BID 06/01/15 Metoprolol Succinate [Toprol XL -] 100 mg PO DAILY 06/01/15 Pantoprazole Sodium [Protonix] 40 mg PO DAILY 06/01/15 Finasteride 5 mg PO DAILY 08/30/17 Nifedipine ER [Procardia XL -] 60 mg PO HS 01/10/18 Aspirin Coated [Ecotrin -] 81 mg PO DAILY 03/03/18 Silodosin [Rapaflo] 8 mg PO DAILY 03/03/18 Zolpidem Tartrate [Ambien] 5 mg PO HS 03/03/18 Ferrous Sulfate [Iron] 325 mg PO DAILY 03/17/18 Nitrofurantoin Monohyd/M-Cryst [Macrobid -] 100 mg PO DAILY #7 capsule 03/18/18 Anemia: No Asthma: No Cancer: Yes (BLADDER) Cardiac Disorders: No CVA: No COPD: No CHF: No Dementia: No Diabetes: Yes GI Disorders: No Disorders: No HTN: Yes Hypercholesterolemia: No Liver Disease: No Seizures: No Thyroid Disease: No - Surgical History Abdominal Surgery: No Appendectomy: No Cardiac Surgery: No - Suicide/Smoking/Psychosocial Hx Smoking Status: Yes Smoking History: Former smoker Have you smoked in the past 12 months: No Number of Cigarettes Smoked Daily: 0 If you are a former smoker, when did you quit?: 1989 Information on smoking cessation initiated: No Hx Alcohol Use: Yes (RARE) Drug/Substance Use Hx: No Substance Use Type: None Hx Substance Use Treatment: No Review of Systems - Review of Systems Able to Perform ROS?: Yes Is the patient limited Nepali proficient: Yes Constitutional: Yes: Symptoms Reported, See HPI. No: Chills, Fever, Loss of Appetite, Malaise HEENTM: Yes: See HPI. No: Symptoms Reported ABD/GI: No: Symptoms Reported : Yes: Symptoms Reported All Other Systems: Reviewed and Negative *Physical Exam - Vital Signs Last Vital Signs Temp Pulse Resp BP Pulse Ox 97.9 F 93 H 18 124/71 99 03/18/18 08:17 03/18/18 08:17 03/18/18 08:17 03/18/18 08:17 03/18/18 08:17 - Physical Exam General Appearance: Yes: Nourished, Appropriately Dressed HEENT: positive: JING, Normal ENT Inspection, TMs Normal, Pharynx Normal Neck: positive: Supple. negative: Tender Respiratory/Chest: positive: Normal Breath Sounds Gastrointestinal/Abdominal: positive: Normal Bowel Sounds, Soft. negative: Tender Musculoskeletal: positive: Normal Inspection. 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 Hiral Delgadillo who understands mild leakage and feels is probably not necessary to have to perform any treatments, procedures or any significant medication today as patient is completely asymptomatic. We will see patient first thing Tuesday morning at 9:00 which she has related to his , and at that time make arrangements with interventional radiology for readmission adjustment of tube if still indicated. Encouraged patient and family to reinforce area and to expect drainage this weekend. Return to emergency department for fevers, bleeding, pain or other significant problems otherwise we'll be seen by PMD Tuesday *DC/Admit/Observation/Transfer Diagnosis at time of Disposition: Urinary catheter complication Qualifiers: Encounter type: initial encounter Qualified Code(s): T83.9XXA - Unspecified complication of genitourinary prosthetic device, implant and graft, initial encounter - Discharge Dispostion Disposition: HOME Condition at time of disposition: Stable Decision to Admit order: No - Prescriptions Prescriptions: Nitrofurantoin Monohyd/M-Cryst [Macrobid -] 100 mg PO DAILY #7 capsule - Referrals Referrals: Andrea Delgadillo MD [Primary Care Provider] - Josefa Delgadillo MD [Staff Physician] - - Patient Instructions Printed Discharge Instructions: How to Care for Your Galarza Catheter -- Male Additional Instructions: Rest, avoid any heavy lifting or strenuous activity until cleared by Dr. Drink lots of fluids, water, teas, soups Macrobid 1 tablet every night to avoid urinary tract infection See Dr. León Alvarado on Tuesday at 9:00 for further evaluation and potential readjustment of catheters Return to emergency department for pain, bleeding, swelling or fevers. Understand catheters may leak this weekend, reinforced with dressings until seen on Tuesday - Post Discharge Activity
[2018-03-18 09:53] VITALS: BP 123/89; PULSE 88; TEMP 98.2
== END 2018-03-18 10:05 | disposition home or self-care (01) ==
LOC: JER 08:16
DX: T83.193A Other mechanical complication of other urinary stent, initial encounter (principal)
CPT/HCPCS: 99282-25

== ENCOUNTER → 2018-03-21 | Day surgery (SDC) | payer OTHER | END | disposition home or self-care (01) | LOC: JRADIR 10:05 | PROVIDERS: ATTEND Urology | PROC: 0T25X0Z Change Drainage Device in Kidney, External Approach (ICD-10-PCS; principal; 2018-03-21) | DX: C67.9 Malignant neoplasm of bladder, unspecified (principal); N13.8 Other obstructive and reflux uropathy | CPT/HCPCS: 50435; 76000-TC-FY; A4358; C1729; C1769 ==

== ENCOUNTER 2018-03-26 20:17 | Emergency (ER) | payer OTHER ==
[2018-03-26 20:29] VITALS: BP 120/81; PULSE 105; TEMP 99.9; BMI 25.1
[2018-03-26] MEDS ORDERED: SODIUM CHLORIDE 1,000 ML IV STA (20:38)
--- NOTE | 2018-03-26 20:55 | PDOC ---
History of Present Illness <Lina Vincent - Last Filed: 03/26/18 21:14> - History of Present Illness Initial Comments: 03/26/18 20:46 77 with h/o HTN, HLD, anemia, BPH and BL hydroureteronephrosis due to recurrent Bladder CA., BL ureteral stent and BL percutaneous nephrostomy tube placement with recent R nephrostomy tube change (03/21/18) who p/w with suspected fever. Patient states that he take at home oral temp routinely and his home monitoring device recorded oral temp of 109. This prompted him to come to ED for further evaluation. Patient otherwise asymptomatic, with no complaints. Scheduled for outpt. PMD apt. at 0800 AM (03/27/18). Denies F/C, N/V, CP, SOB, abdominal pain, diarrhea, constipation, urinary complaints, weakness, lightheadedness, sensory changes. PMHx: as noted above ROS: as noted above <Domingo Sandoval - Last Filed: 03/26/18 21:25> - General Chief Complaint: SIRS, Suspected/Possible Stated Complaint: FEVER Time Seen by Provider: 03/26/18 20:36 Past History <Lina Vincent - Last Filed: 03/26/18 21:14> - Past Medical History Anemia: No Asthma: No Cancer: Yes (BLADDER) Cardiac Disorders: No CVA: No COPD: No CHF: No Dementia: No Diabetes: Yes GI Disorders: No Disorders: No HTN: Yes Hypercholesterolemia: No Liver Disease: No Seizures: No Thyroid Disease: No - Surgical History Abdominal Surgery: No Appendectomy: No Cardiac Surgery: No - Suicide/Smoking/Psychosocial Hx Smoking Status: Yes Smoking History: Former smoker Have you smoked in the past 12 months: No Number of Cigarettes Smoked Daily: 0 If you are a former smoker, when did you quit?: 1989 Information on smoking cessation initiated: No Hx Alcohol Use: Yes (RARE) Drug/Substance Use Hx: No Substance Use Type: None Hx Substance Use Treatment: No <Domingo Sandoval - Last Filed: 03/26/18 21:25> - Past Medical History Allergies/Adverse Reactions: Allergies Allergy/AdvReac Type Severity Reaction Status Date / Time No Known Allergies Allergy Verified 03/26/18 20:27 Home Medications: Ambulatory Orders Metformin HCl [Glucophage] 1,000 mg PO BID 06/01/15 Metoprolol Succinate [Toprol XL -] 100 mg PO DAILY 06/01/15 Pantoprazole Sodium [Protonix] 40 mg PO DAILY 06/01/15 Finasteride 5 mg PO DAILY 08/30/17 Nifedipine ER [Procardia XL -] 60 mg PO HS 01/10/18 Aspirin Coated [Ecotrin -] 81 mg PO DAILY 03/03/18 Silodosin [Rapaflo] 8 mg PO DAILY 03/03/18 Zolpidem Tartrate [Ambien] 5 mg PO HS 03/03/18 Ferrous Sulfate [Iron] 325 mg PO DAILY 03/17/18 Nitrofurantoin Monohyd/M-Cryst [Macrobid -] 100 mg PO DAILY #7 capsule 03/18/18 Review of Systems - Review of Systems Comments:: 03/26/18 21:20 GENERAL/CONSTITUTIONAL: No fever or chills. No weakness. HEAD, EYES, EARS, NOSE AND THROAT: No change in vision. No ear pain or discharge. No sore throat. CARDIOVASCULAR: No chest pain or shortness of breath RESPIRATORY: No cough, wheezing, or hemoptysis. GASTROINTESTINAL: No nausea, vomiting, diarrhea or constipation. GENITOURINARY: No dysuria, frequency, or change in urination. MUSCULOSKELETAL: No joint or muscle swelling or pain. No neck or back pain. SKIN: No rash NEUROLOGIC: No headache, vertigo, loss of consciousness, or change in strength/ sensation. ENDOCRINE: No increased thirst. No abnormal weight change HEMATOLOGIC/LYMPHATIC: No anemia, easy bleeding, or history of blood clots. ALLERGIC/IMMUNOLOGIC: No hives or skin allergy. <Domingo Sandoval - Last Filed: 03/26/18 21:25> *Physical Exam - Vital Signs Last Vital Signs Temp Pulse Resp BP Pulse Ox 99.9 F H 105 H 20 120/81 96 03/26/18 20:27 03/26/18 20:27 03/26/18 20:27 03/26/18 20:27 03/26/18 20:27 <Lina Vincent - Last Filed: 03/26/18 21:14> - Vital Signs Last Vital Signs Temp Pulse Resp BP Pulse Ox 99.9 F H 105 H 20 120/81 96 03/26/18 20:27 03/26/18 20:27 03/26/18 20:27 03/26/18 20:27 03/26/18 20:27 - Physical Exam Comments: 03/26/18 21:20 GENERAL: Awake, alert, and fully oriented, in no acute distress HEAD: No signs of trauma, normocephalic, atraumatic EYES: PERRLA, EOMI, sclera anicteric, conjunctiva clear ENT: Hearing grossly normal, nares patent, oropharynx clear without exudates. Moist mucosa NECK: Normal ROM, supple, no lymphadenopathy, JVD, or masses LUNGS: No distress, speaks full sentences, clear to auscultation bilaterally HEART: Regular rate and rhythm, normal S1 and S2, no murmurs, rubs or gallops, peripheral pulses normal and equal bilaterally. ABDOMEN: + BL nephrostomy tube placement in BL flank region. Covered with gauze dressing and sutured in place. C/D/I. No evidence of discharge, warmth, erythema. Soft, nontender, normoactive bowel sounds. No guarding, no rebound. No masses. Neg CVA ttp EXTREMITIES : Normal inspection, Normal range of motion, no edema. No clubbing or cyanosis. SKIN: Warm, Dry, normal turgor, no rashes or lesions noted <Domingo Sandoval - Dayday Filed: 03/26/18 21:25> ED Treatment Course - RADIOLOGY Radiology Studies Ordered: Category Date Time Status CHEST X-RAY PORTABLE* [RAD] Stat Radiology 03/26/18 20:38 Ordered <Domingo Sandoval - Dayday Filed: 03/26/18 21:25> Medical Decision Making - Medical Decision Making 03/26/18 21:18 77 with h/o HTN, HLD, anemia, BPH and BL hydroureteronephrosis due to recurrent Bladder CA., BL ureteral stent and BL percutaneous nephrostomy tube placement with recent R nephrostomy tube change (03/21/18) who p/w with suspected fever. VSS, AF. Patient without flank pain or evidence of pyelonephritis. Nephrosotmy tube insertion site c/d/i BL. Low suspicion of sepsis or infection. ED Course: Patient stable for d/c with return precautions. Advised to attend outpt. PMD in AM. 03/26/18 21:24 Dressing on L nephrostomy tube changed in ED. <Domingo Sandoval Filed: 03/26/18 21:25> *DC/Admit/Observation/Transfer - Discharge Dispostion Decision to Admit order: No <Lina Vincent - Last Filed: 03/26/18 21:14> - Discharge Dispostion Decision to Admit order: No - Attestations Physician Attestion: 03/26/18 21:23 I attest to the information provided in this note. <Domingo Sandoval - Last Filed: 03/26/18 21:25> Diagnosis at time of Disposition: Feared complaint without diagnosis - Discharge Dispostion Disposition: HOME Condition at time of disposition: Stable - Patient Instructions Printed Discharge Instructions: DI for Nephrostomy Additional Instructions: lease return to the emergency department with any new or worsening symptoms or concerns. Please follow up with your primary care physician within 72 hours.
--- NOTE | 2018-03-26 20:59 | PDOC ---
Attending Attestation - Resident Resident Name: Domingo Sandoval - ED Attending Attestation I have performed the following: I have examined & evaluated the patient, The case was reviewed & discussed with the resident, I agree w/resident's findings & plan - HPI HPI: 03/26/18 20:58 Pt comes with possible after he had nephrostomy tubes placed. He is anxious because he was warm to the touch at home and told him to come to the ER. - Physicial Exam PE: 03/26/18 21:11 Agree with resident exam - Medical Decision Making 03/26/18 21:12 Pt will be discharged home, as he is afebrile, he has no flank pain. He has no redness or warmth around the bilateral nephrostomy tubes, and no pus drainage or foul smell in the area. Pt has an appointment with his PMD tomorrow at 8AM, and later this week appt with his actuarial consultant.
== END 2018-03-26 21:27 | disposition home or self-care (01) ==
LOC: JER 20:17
PROC: 3E0337Z Introduction of Electrolytic and Water Balance Substance into Peripheral Vein, Percutaneous Approach (ICD-10-PCS; principal; 2018-03-26)
DX: Z71.1 Person with feared health complaint in whom no diagnosis is made (principal); I10 Essential (primary) hypertension; E78.5 Hyperlipidemia, unspecified; E11.9 Type 2 diabetes mellitus without complications; D64.9 Anemia, unspecified; N40.0 Benign prostatic hyperplasia without lower urinary tract symptoms; Z85.51 Personal history of malignant neoplasm of bladder; Z87.891 Personal history of nicotine dependence; Z79.82 Long term (current) use of aspirin; Z79.84 Long term (current) use of oral hypoglycemic drugs
CPT/HCPCS: 71045-TC-FY; 96360; 99281-25

== ENCOUNTER 2018-03-30 12:38 | Day surgery (SDC) | payer OTHER ==
[2018-03-30 15:58] LABS: HEMATOCRIT 25.8 % (35.4-49); HEMOGLOBIN 8.1 GM/dL (11.7-16.9); MCHC 31.2 g/dl (32.0-35.9); MEAN CELL VOLUME 61.3 fl (80-96); MEAN PLT VOLUME 9.6 fl (7.5-11.1); PLATELET COUNT 212 K/MM3 (134-434); RBC 4.21 M/mm3 (4.00-5.60); RDW 20.2 % (11.9-15.9); WHITE BLOOD COUNT 5.7 K/mm3 (4.0-10.0)
[2018-03-30 16:47] LABS: MCH 19.2 pg (25.7-33.7)
[2018-03-30] MEDS ORDERED: ZOLPIDEM TARTRATE 5 MG TABLET PO PRN (19:37)
[2018-03-30] MEDS ORDERED: NIFEdipine E.R. 30 MG TABLET (FP) PO SCH (22:00)
[2018-03-30] MEDS ORDERED: TAMSULOSIN HCL 0.4 MG CAP.ER.24H (FP) PO SCH (22:00)
[2018-03-30] MEDS ORDERED: FINASTERIDE 5 MG TABLET (FP) PO SCH (22:00)
[2018-03-31 01:42] LABS: BASO % 1.1 % (0-2.0); EOS % 5.6 % (0-4.5); HEMATOCRIT 25.9 % (35.4-49); HEMOGLOBIN 8.3 GM/dL (11.7-16.9); LYMPH % 24.6 % (8-40); MCH 20.1 pg (25.7-33.7); MCHC 32.2 g/dl (32.0-35.9); MEAN CELL VOLUME 62.5 fl (80-96); MEAN PLT VOLUME 10.2 fl (7.5-11.1); MONO % 8.5 % (3.8-10.2); NEUT % 60.2 % (42.8-82.8); PLATELET COUNT 227 K/MM3 (134-434); RBC 4.15 M/mm3 (4.00-5.60); RDW 21.4 % (11.9-15.9); WHITE BLOOD COUNT 6.2 K/mm3 (4.0-10.0)
[2018-03-31] MEDS ORDERED: ACETAMINOPHEN 325 MG TABLET (FP) PO PRN (02:34)
[2018-03-31 06:14] LABS: ANISOCYTOSIS 2+
[2018-03-31 06:15] LABS: MACROCYTOSIS 1+
[2018-03-31 08:59] LABS: BASO % 0.9 % (0-2.0); EOS % 5.9 % (0-4.5); HEMATOCRIT 31.3 % (35.4-49); LYMPH % 25.2 % (8-40); MCH 20.5 pg (25.7-33.7); MCHC 31.9 g/dl (32.0-35.9); MEAN CELL VOLUME 64.3 fl (80-96); MEAN PLT VOLUME 10.2 fl (7.5-11.1); MONO % 7.8 % (3.8-10.2); NEUT % 60.2 % (42.8-82.8); PLATELET COUNT 204 K/MM3 (134-434); RBC 4.86 M/mm3 (4.00-5.60); RDW 25.5 % (11.9-15.9); WHITE BLOOD COUNT 6.1 K/mm3 (4.0-10.0)
[2018-03-31 10:38] VITALS: BP 119/70; PULSE 99; TEMP 98
[2018-03-31 11:13] LABS: PLATELET ESTIMATE ADEQUATE
== END 2018-03-31 09:06 | disposition home or self-care (01) ==
LOC: JBLOOD 12:38 → J7W 13:32 → JBLOOD 03-31 09:06
PROVIDERS: ATTEND Urology
PROC: 30233N1 Transfusion of Nonautologous Red Blood Cells into Peripheral Vein, Percutaneous Approach (ICD-10-PCS; principal; 2018-03-30)
DX: C67.9 Malignant neoplasm of bladder, unspecified (principal); D64.9 Anemia, unspecified
CPT/HCPCS: 36415; 36430; 82962; 85025; 85027; 86850; 86900; 86901; 86922; P9038; P9058

== ENCOUNTER 2018-04-08 20:28 | Emergency (ER) | payer OTHER ==
[2018-04-08 20:33] VITALS: TEMP 98; BMI 25.5
[2018-04-08 20:37] VITALS: PULSE 73
--- NOTE | 2018-04-08 21:07 | PDOC ---
History of Present Illness - General Chief Complaint: Blood Pressure Problem Stated Complaint: HIGH BLOOD PRESSURE Time Seen by Provider: 04/08/18 21:05 History Source: Patient Exam Limitations: No Limitations - History of Present Illness Initial Comments: 04/08/18 22:50 Best Contact: PCP: Dr. Hiral Delgadillo [phone] Pmhx: Hypertension, renal CA, ?prostate Pshx: 2017: Renal biopsy Allergies: NO KNOWN DRUG ALLERGIES FH:? Social Hx: Cigarettes/ 0 Alcohol/ 0 Drugs/0 LMP:N/A 77-year-old male presents to the emergency department complaining of asymptomatic hypertension. Patient states his systolic usually runs in the 120s but this evening when he took his blood pressure at home on his portable machine it read 150/98. Patient states he took at numerous times and showed a systolic of 150-152. Patient denies nausea/vomiting, fever/chills, headache, dizziness, lightheadedness, facial pain, earache, sore throat, neck stiffness/ pain, back pains, chest pain, shortness of breath, abdominal pains, flank pains , urinary symptoms: Frequency/urgency/hesitancy, hematuria. Patient states he does not have any medical complaints. Patient states he was just here to get his blood pressure rechecked. Past History - Past Medical History Allergies/Adverse Reactions: Allergies Allergy/AdvReac Type Severity Reaction Status Date / Time No Known Allergies Allergy Verified 04/08/18 20:33 Home Medications: Ambulatory Orders Metformin HCl [Glucophage] 1,000 mg PO BID 06/01/15 Metoprolol Succinate [Toprol XL -] 100 mg PO DAILY 06/01/15 Pantoprazole Sodium [Protonix] 40 mg PO DAILY 06/01/15 Finasteride 5 mg PO DAILY 08/30/17 Nifedipine ER [Procardia XL -] 30 mg PO HS 01/10/18 Aspirin Coated [Ecotrin -] 81 mg PO DAILY 03/03/18 Silodosin [Rapaflo] 8 mg PO HS 03/03/18 Zolpidem Tartrate [Ambien] 5 mg PO HS 03/03/18 Ferrous Sulfate [Iron] 325 mg PO DAILY 03/17/18 Metoclopramide HCl 5 mg PO BID 03/30/18 Anemia: No Asthma: No Cancer: Yes (BLADDER) Cardiac Disorders: No CVA: No COPD: No CHF: No Dementia: No Diabetes: Yes GI Disorders: No Disorders: No HTN: Yes Hypercholesterolemia: No Liver Disease: No Seizures: No Thyroid Disease: No - Surgical History Abdominal Surgery: No Appendectomy: No Cardiac Surgery: No - Suicide/Smoking/Psychosocial Hx Smoking Status: Yes Smoking History: Never smoked Have you smoked in the past 12 months: No Number of Cigarettes Smoked Daily: 0 If you are a former smoker, when did you quit?: 1989 Information on smoking cessation initiated: No Hx Alcohol Use: No Drug/Substance Use Hx: No Substance Use Type: None Hx Substance Use Treatment: No Review of Systems - Review of Systems Able to Perform ROS?: Yes Comments:: 04/08/18 22:54 CONSTITUTIONAL: Absent: fever, chills, diaphoresis, generalized weakness, malaise, loss of appetite HEENT: Absent: rhinorrhea, nasal congestion, throat pain, throat swelling, difficulty swallowing, mouth swelling, ear pain, eye pain, visual Changes CARDIOVASCULAR: Absent: chest pain, loss of consciousness, palpitations, irregular heart rate, peripheral edema RESPIRATORY: Absent: cough, shortness of breath, dyspnea with exertion, orthopnea, wheezing, stridor, hemoptysis GASTROINTESTINAL: Absent: abdominal pain, abdominal distension, nausea, vomiting, diarrhea, constipation, melena, hematochezia GENITOURINARY: Absent: dysuria, frequency, urgency, hesitancy, hematuria, flank pain, genital pain MUSCULOSKELETAL: Absent: myalgia, arthralgia, joint swelling SKIN: Absent: rash, itching, pallor HEMATOLOGIC/IMMUNOLOGIC: Absent: easy bleeding, easy bruising, lymphadenopathy, frequent infections ENDOCRINE: Absent: unexplained weight gain, unexplained weight loss, heat intolerance, cold intolerance NEUROLOGIC: Absent: headache, focal weakness or paresthesias, dizziness, unsteady gait, seizure, mental status changes, bladder or bowel incontinence PSYCHIATRIC: Absent: anxiety, depression, suicidal or homicidal ideation, hallucinations. GENERAL: Well developed, well nourished. Awake and alert. No acute distress. HEENT: Normocephalic, atraumatic. PERRLA, EOMI. No conjunctival pallor. Sclera are non- icteric. Moist mucous membranes. Oropharynx is clear. NECK: Supple. Full ROM. No JVD. Carotid pulses 2+ and symmetric, without bruits. No thyromegaly. No lymphadenopathy. CARDIOVASCULAR: Regular rate and rhythm. No murmurs, rubs, or gallops. Distal pulses are 2+ and symmetric. PULMONARY: No evidence of respiratory distress. Lungs clear to auscultation bilaterally. No wheezing, rales or rhonchi. ABDOMINAL: Soft. Non-tender. Non-distended. No rebound or guarding. No organomegaly. Normoactive bowel sounds. MUSCULOSKELETAL Normal range of motion at all joints. No bony deformities or tenderness. No CVA tenderness. EXTREMITIES: No cyanosis. No clubbing. No edema. No calf tenderness. SKIN: Warm and dry. Normal capillary refill. No rashes. No jaundice. NEUROLOGICAL: Alert, awake, appropriate. Cranial nerves 2-12 intact. No deficits to light touch and temperature in face, upper extremities and lower extremities. No motor deficits in the in face, upper extremities and lower extremities. Normoreflexic in the upper and lower extremities. Normal speech. Toes are down- going bilaterally. Gait is normal without ataxia. PSYCHIATRIC: Cooperative. Good eye contact. Appropriate mood and affect. Is the patient limited Turkmen proficient: No *Physical Exam - Vital Signs Last Vital Signs Temp Pulse Resp BP Pulse Ox 98.0 F 73 16 150/91 100 04/08/18 20:30 04/08/18 20:36 04/08/18 20:30 04/08/18 20:36 04/08/18 20:30 ED Treatment Course - LABORATORY CBC & Chemistry Diagram: 04/08/18 21:40 04/08/18 21:54 - RADIOLOGY Radiograph Interpretation: 04/08/18 22:54 Kidney ultrasound: Normal kidneys no signs of renal artery stenosis *DC/Admit/Observation/Transfer Diagnosis at time of Disposition: Asymptomatic hypertension - Discharge Dispostion Condition at time of disposition: Stable Decision to Admit order: No - Referrals Referrals: Andrea Delgadillo MD [Primary Care Provider] - - Patient Instructions Printed Discharge Instructions: DI for High Blood Pressure Additional Instructions: It is important for you to see your primary care physician on 04/10/2018 at [address] Burciaga/physician covering for Dr. Hiral Delgadillo Reset Return to the ER for chest pain, dizziness, lightheadedness, shortness for breath - Post Discharge Activity Progress Note - Progress Note Progress Note: 2108 hrs: Called [phone]/Pinky Patino/Pt's PMD 3hrs: Spoke to Dr. Burciaga/covering for Dr. Hiral Delgadillo. Requesting to see patient in the office on 04/10/2018 at 11 AM.
[2018-04-08 22:10] LABS: HEMATOCRIT 30.1 % (35.4-49)
[2018-04-08 22:16] LABS: BASO % 1.1 % (0-2.0); EOS % 2.8 % (0-4.5); HEMOGLOBIN 9.7 GM/dL (11.7-16.9); LYMPH % 24.9 % (8-40); MCH 20.4 pg (25.7-33.7); MCHC 32.2 g/dl (32.0-35.9); MEAN CELL VOLUME 63.4 fl (80-96); MONO % 6.9 % (3.8-10.2); NEUT % 64.3 % (42.8-82.8); RBC 4.75 M/mm3 (4.00-5.60); RDW 24.1 % (11.9-15.9); WHITE BLOOD COUNT 7.8 K/mm3 (4.0-10.0)
[2018-04-08 22:20] LABS: ADD RBC MORPHOLOGY YES
[2018-04-08 22:35] LABS: ALBUMIN 3.6 g/dl (3.4-5.0); ANION GAP 10 (8-16); BILIRUBIN,TOTAL 0.5 mg/dL (0.2-1.0); BLOOD UREA NITROGEN 22 mg/dL (7-18); CALCIUM 8.8 mg/dL (8.5-10.1); CHLORIDE 106 mmol/L (98-107); CO2 23 mmol/L (21-32); GLUCOSE,RANDOM 99 mg/dL (74-106); POTASSIUM 3.9 mmol/L (3.5-5.1); SGOT/AST 15 U/L (15-37); SGPT/ALT 20 U/L (12-78); SODIUM 139 mmol/L (136-145); TOT PROT 7.4 g/dl (6.4-8.2)
[2018-04-08 22:38] LABS: ALK PHOS 190 U/L (45-117); N-TERMINAL BNP 390.25 pg/ml (5-450)
[2018-04-08 22:59] LABS: MEAN PLT VOLUME 9.4 fl (7.5-11.1); PLATELET COUNT 225 K/MM3 (134-434)
[2018-04-08 23:00] LABS: PLATELET ESTIMATE ADEQUATE
[2018-04-09 01:53] VITALS: BP 132/70
--- NOTE | 2018-04-10 17:48 | EKG ---
Test Reason : Blood Pressure : / mmHG Vent. Rate : 063 BPM Atrial Rate : 063 BPM P-R Int : 190 ms QRS Dur : 102 ms QT Int : 408 ms P-R-T Axes : 059 -44 028 degrees QTc Int : 417 ms NORMAL SINUS RHYTHM LEFT AXIS DEVIATION ABNORMAL ECG WHEN COMPARED WITH ECG OF 03-MAR-2018 11:57, VENT. RATE HAS DECREASED BY 37 BPM Confirmed by ESTHER PORTER MD ([id number]) on 04/10/2018 5:48:07 PM Referred By: Confirmed By:ESTHER PORTER MD
== END 2018-04-09 01:53 | disposition home or self-care (01) ==
LOC: JER 20:28 → JERFT 20:28 → JER 04-09 01:53
DX: I10 Essential (primary) hypertension (principal); E11.9 Type 2 diabetes mellitus without complications; Z79.84 Long term (current) use of oral hypoglycemic drugs; Z85.51 Personal history of malignant neoplasm of bladder; Z79.82 Long term (current) use of aspirin
CPT/HCPCS: 36415; 76775-TC; 80053; 82550; 83880; 84484; 85025; 93005; 93010; 99281-25

== ENCOUNTER 2018-05-04 07:40 | Day surgery (SDC) | payer OTHER ==
[2018-05-04] MEDS ORDERED: PALONOSETRON HCL 0.25 MG/5 ML VIAL IVPUSH ONE (08:00)
[2018-05-04] MEDS ORDERED: DEXAMETHASONE INJECTION 10 MG in SODIUM CHLORIDE 50 ML IVPB ONE (08:00)
[2018-05-04] MEDS ORDERED: SODIUM CHLORIDE IV ONE (08:30)
[2018-05-04] MEDS ORDERED: GEMCITABINE HCL IV ONE (08:30)
[2018-05-04] MEDS ORDERED: SODIUM CHLORIDE IVPB ONE (09:00)
[2018-05-04] MEDS ORDERED: CARBOPLATIN IVPB ONE (09:00)
[2018-05-04] MEDS ORDERED: SODIUM CHLORIDE 500 ML IV ONE (09:30)
[2018-05-04 11:51] LABS: BASO % 0.6 % (0-2.0); EOS % 1.3 % (0-4.5); HEMOGLOBIN 9.8 GM/dL (11.7-16.9); LYMPH % 18.3 % (8-40); MCH 20.8 pg (25.7-33.7); MCHC 32.6 g/dl (32.0-35.9); MEAN CELL VOLUME 63.6 fl (80-96); MEAN PLT VOLUME 9.1 fl (7.5-11.1); MONO % 6.3 % (3.8-10.2); NEUT % 73.5 % (42.8-82.8); PLATELET COUNT 196 K/MM3 (134-434); RBC 4.71 M/mm3 (4.00-5.60); RDW 24.2 % (11.9-15.9)
[2018-05-04 12:11] LABS: ALBUMIN 3.9 g/dl (3.4-5.0); ANION GAP 10 (8-16); BILIRUBIN,DIRECT 0.3 mg/dL (0.0-0.2); BILIRUBIN,TOTAL 0.8 mg/dL (0.2-1.0); BLOOD UREA NITROGEN 17 mg/dL (7-18); CALCIUM 9.6 mg/dL (8.5-10.1); CHLORIDE 104 mmol/L (98-107); CO2 25 mmol/L (21-32); CREATININE 0.8 mg/dL (0.7-1.3); GLUCOSE,RANDOM 124 mg/dL (74-106); MAGNESIUM 2.1 mg/dL (1.8-2.4); POTASSIUM 4.2 mmol/L (3.5-5.1); SGOT/AST 19 U/L (15-37); SGPT/ALT 28 U/L (12-78); SODIUM 139 mmol/L (136-145); TOT PROT 7.6 g/dl (6.4-8.2)
[2018-05-04 12:12] LABS: ALK PHOS 163 U/L (45-117)
[2018-05-04 13:30] LABS: ANISOCYTOSIS 2+; MACROCYTOSIS 0; OVALOCYTE 1+; PLATELET ESTIMATE NORMAL; TARGET CELLS 1+; TEAR DROP CELLS 1+
[2018-05-04 15:26] VITALS: TEMP 97.8
[2018-05-04 16:57] VITALS: BP 121/71; PULSE 67
== END 2018-05-04 16:58 | disposition home or self-care (01) ==
LOC: JONCCHEMO 07:40 → J7W 13:06 → JONCCHEMO 16:58
PROVIDERS: ATTEND Internal Medicine Hematology & Oncology
DX: Z51.11 Encounter for antineoplastic chemotherapy (principal); C67.9 Malignant neoplasm of bladder, unspecified; C78.7 Secondary malignant neoplasm of liver and intrahepatic bile duct
CPT/HCPCS: 36415; 80053; 80076; 83735; 85025; 96361; 96375; 96413; 96417; J1100; J2469

== ENCOUNTER 2018-05-05 07:22 | Day surgery (SDC) | payer OTHER ==
[2018-05-05] MEDS ORDERED: TBO-FILGRASTIM 480 MCG/0.8 ML DISP.SYRIN SQ ONE (10:00)
[2018-05-05 18:40] VITALS: BP 112/70; PULSE 77; TEMP 97.8
[2018-05-08] MEDS ORDERED: TBO-FILGRASTIM 480 MCG/0.8 ML DISP.SYRIN SQ ONE (10:00)
== END 2018-05-05 14:15 | disposition home or self-care (01) ==
LOC: JONCCHEMO 07:22 → J7W 13:39 → JONCCHEMO 14:15
PROVIDERS: ATTEND Internal Medicine Hematology & Oncology
PROC: 3E013GC Introduction of Other Therapeutic Substance into Subcutaneous Tissue, Percutaneous Approach (ICD-10-PCS; principal; 2018-05-05)
DX: C67.9 Malignant neoplasm of bladder, unspecified (principal); C78.7 Secondary malignant neoplasm of liver and intrahepatic bile duct; Z76.89 Persons encountering health services in other specified circumstances
CPT/HCPCS: 96372; J1447

== ENCOUNTER 2018-05-08 07:31 | Day surgery (SDC) | payer OTHER ==
[2018-05-08] MEDS ORDERED: TBO-FILGRASTIM 480 MCG/0.8 ML DISP.SYRIN SQ ONE (09:00)
[2018-05-08 15:28] VITALS: BP 105/68; PULSE 74; TEMP 97.8
== END 2018-05-08 10:15 | disposition home or self-care (01) ==
LOC: JONCCHEMO 07:31 → J7W 09:41 → JONCCHEMO 10:15
PROVIDERS: ATTEND Internal Medicine Hematology & Oncology
PROC: 3E04305 Introduction of Other Antineoplastic into Central Vein, Percutaneous Approach (ICD-10-PCS; principal; 2018-05-08)
PROC: 3E043GC Introduction of Other Therapeutic Substance into Central Vein, Percutaneous Approach (ICD-10-PCS; 2018-05-08)
PROC: 3E0437Z Introduction of Electrolytic and Water Balance Substance into Central Vein, Percutaneous Approach (ICD-10-PCS; 2018-05-08)
DX: Z51.11 Encounter for antineoplastic chemotherapy (principal); C67.9 Malignant neoplasm of bladder, unspecified; C78.7 Secondary malignant neoplasm of liver and intrahepatic bile duct
CPT/HCPCS: 96361; 96372; 96375; 96413; J1447

== ENCOUNTER 2018-05-11 07:29 | Day surgery (SDC) | payer OTHER ==
[2018-05-11] MEDS ORDERED: DEXAMETHASONE INJECTION 10 MG in SODIUM CHLORIDE 50 ML IVPB ONE (08:00)
[2018-05-11] MEDS ORDERED: PALONOSETRON HCL 0.25 MG/5 ML VIAL IVPUSH ONE (08:00)
[2018-05-11] MEDS ORDERED: SODIUM CHLORIDE IV ONE (08:30)
[2018-05-11] MEDS ORDERED: GEMCITABINE HCL IV ONE (08:30)
[2018-05-11] MEDS ORDERED: SODIUM CHLORIDE 500 ML IV ONE (09:00)
[2018-05-11 12:20] LABS: BASO % 0.6 % (0-2.0); EOS % 1.1 % (0-4.5); HEMATOCRIT 27.3 % (35.4-49); HEMOGLOBIN 8.7 GM/dL (11.7-16.9); LYMPH % 14.8 % (8-40); MCH 20.2 pg (25.7-33.7); MCHC 31.9 g/dl (32.0-35.9); MEAN CELL VOLUME 63.5 fl (80-96); MEAN PLT VOLUME 9.2 fl (7.5-11.1); MONO % 6.2 % (3.8-10.2); NEUT % 77.3 % (42.8-82.8); PLATELET COUNT 238 K/MM3 (134-434); RDW 22.5 % (11.9-15.9)
[2018-05-11 12:58] LABS: MAGNESIUM 1.7 mg/dL (1.8-2.4)
[2018-05-11 13:00] LABS: CALCIUM 9.4 mg/dL (8.5-10.1); CHLORIDE 102 mmol/L (98-107); POTASSIUM 4.4 mmol/L (3.5-5.1); SODIUM 138 mmol/L (136-145)
[2018-05-11 13:04] LABS: ALBUMIN 3.8 g/dl (3.4-5.0); BILIRUBIN,DIRECT 0.2 mg/dL (0.0-0.2); BILIRUBIN,TOTAL 0.5 mg/dL (0.2-1.0); TOT PROT 7.4 g/dl (6.4-8.2)
[2018-05-11 13:07] LABS: ALBUMIN 3.8 g/dl (3.4-5.0); ALK PHOS 198 U/L (45-117); ANION GAP 12 (8-16); BILIRUBIN,TOTAL 0.5 mg/dL (0.2-1.0); BLOOD UREA NITROGEN 23 mg/dL (7-18); CO2 24 mmol/L (21-32); CREATININE 0.9 mg/dL (0.7-1.3); GLUCOSE,RANDOM 116 mg/dL (74-106); SGOT/AST 24 U/L (15-37); SGPT/ALT 29 U/L (12-78); TOT PROT 7.5 g/dl (6.4-8.2)
[2018-05-11 14:02] LABS: ANISOCYTOSIS 2+; MACROCYTOSIS 1+; OVALOCYTE 1+; PLATELET ESTIMATE NORMAL; TARGET CELLS 1+; TEAR DROP CELLS 1+
[2018-05-11 15:38] VITALS: TEMP 98.2
[2018-05-11] MEDS ORDERED: PORTA CATH FLUSH 10 ML IVPUSH ONE (15:38)
[2018-05-11] MEDS ORDERED: MAGNESIUM OXIDE 400 MG TABLET (FP) PO ONE (15:45)
[2018-05-11 16:32] VITALS: BP 128/79
[2018-05-11 16:33] VITALS: PULSE 78
== END 2018-05-11 16:40 | disposition home or self-care (01) ==
LOC: JONCCHEMO 07:29 → J7W 13:19 → JONCCHEMO 16:40
PROVIDERS: ATTEND Internal Medicine Hematology & Oncology
DX: Z51.11 Encounter for antineoplastic chemotherapy (principal); C67.9 Malignant neoplasm of bladder, unspecified; C78.7 Secondary malignant neoplasm of liver and intrahepatic bile duct
CPT/HCPCS: 36415; 80053; 80076; 83735; 85025; 96361; 96375; 96413; J1100; J2469

== ENCOUNTER 2018-05-14 18:18 | Inpatient (IN) | payer OTHER ==
[2018-05-14 18:31] VITALS: BMI 26.3
--- NOTE | 2018-05-14 18:37 | PDOC ---
History of Present Illness - General Chief Complaint: Urinary Problem Stated Complaint: FEVER Time Seen by Provider: 05/14/18 18:37 - History of Present Illness Initial Comments: 77 y/o male with PMH significant for hypertension, NIDDM, BPH, and bladder cancer (mets to liver/ bone chemo biweekly (last 05/11 C2D8) and on neupogen ()), and placement of bilateral nephrostomy tubes presenting with home temp reading to 101 and decreased output in left nephrostomy bag. States he felt warm earlier today and measured a few temperatures with a high of 101. Over the course of the day he has had normal UOP form his right nephrostomy but noticed decreased UOP from his left UOP. He was admitted a few weeks prior for a similar presentation. Denies chest pain, cough, headache, visual changes, SOB, or other symptoms. 05/14/18 19:14 Past History - Past Medical History Allergies/Adverse Reactions: Allergies Allergy/AdvReac Type Severity Reaction Status Date / Time No Known Allergies Allergy Verified 05/14/18 18:31 Home Medications: Ambulatory Orders Metformin HCl [Glucophage] 1,000 mg PO BID 06/01/15 Finasteride 5 mg PO DAILY 08/30/17 Aspirin Coated [Ecotrin -] 81 mg PO DAILY 03/03/18 Silodosin [Rapaflo] 8 mg PO HS 03/03/18 Zolpidem Tartrate [Ambien] 5 mg PO HS 03/03/18 Ferrous Sulfate [Iron] 325 mg PO DAILY 03/17/18 Metoclopramide HCl 5 mg PO BID PRN 03/30/18 Multivit-Mins/Iron/Folic/Lycop [Centrum Men's Tablet] 1 each PO DAILY 04/12/18 Metoprolol Succinate [Toprol XL -] 100 mg PO DAILY 05/14/18 Anemia: No Asthma: No Cancer: Yes (BLADDER) Cardiac Disorders: No CVA: No COPD: No CHF: No Dementia: No Diabetes: Yes GI Disorders: No Disorders: No HTN: Yes Hypercholesterolemia: No Liver Disease: No Seizures: No Thyroid Disease: No - Surgical History Abdominal Surgery: No Appendectomy: No Cardiac Surgery: No - Suicide/Smoking/Psychosocial Hx Smoking Status: Yes Smoking History: Unknown if ever smoked Have you smoked in the past 12 months: No Number of Cigarettes Smoked Daily: 0 If you are a former smoker, when did you quit?: 1989 Hx Alcohol Use: No Drug/Substance Use Hx: No Substance Use Type: None Hx Substance Use Treatment: No Review of Systems - Review of Systems Constitutional: Yes: Fever. No: Chills, Diaphoresis HEENTM: No: Blurred Vision, Tearing Respiratory: No: Cough, Orthopnea, Shortness of Breath, Wheezing Cardiac (ROS): No: Chest Pain, Irregular Heart Rate ABD/GI: No: Diarrhea, Nausea, Vomiting : No: Dysuria, Discharge, Hematuria Musculoskeletal: No: Back Pain, Joint Pain, Muscle Weakness Integumentary: No: Flushing, Lesions, Lumps Neurological: No: Headache, Numbness, Paresthesia Hematologic/Lymphatic: No: Anemia, Blood Clots, Easy Bleeding *Physical Exam - Vital Signs Last Vital Signs Temp Pulse Resp BP Pulse Ox 98.8 F 93 H 18 124/76 99 05/14/18 18:29 05/14/18 18:29 05/14/18 18:29 05/14/18 18:29 05/14/18 18:29 - Physical Exam General Appearance: Yes: Appropriately Dressed. No: Apparent Distress HEENT: positive: EOMI, JING, Normal ENT Inspection, Normal Voice Neck: positive: Trachea midline, Normal Thyroid, Supple. negative: Tender, Rigid Respiratory/Chest: positive: Lungs Clear, Normal Breath Sounds. negative: Chest Tender, Respiratory Distress, Accessory Muscle Use Cardiovascular: positive: Regular Rhythm, Regular Rate Gastrointestinal/Abdominal: positive: Normal Bowel Sounds, Flat, Soft. negative : Tender Male Genitalia: positive: normal genitalia, other (Bilateral nephrostomy tubes in place with slight erythema around both sites bilaterally. ) Lymphatic: negative: Adenopathy, Tenderness Musculoskeletal: positive: Normal Inspection. negative: CVA Tenderness, Decreased Range of Motion Extremity: positive: Normal Capillary Refill, Normal Inspection, Normal Range of Motion. negative: Tender Integumentary: positive: Normal Color, Warm Neurologic: positive: spa assistant manager II-XII NML intact, Fully Oriented, Alert, Normal Mood/ Affect, Normal Response, Motor Strength 5/5 ED Treatment Course - LABORATORY CBC & Chemistry Diagram: 05/14/18 20:45 05/14/18 20:45 Medical Decision Making - Medical Decision Making 77 year old male with metastatic bladder cancer, on chemo, and bilateral nephrostomy tubes in place presenting with fever and urine with elevated WBC and leuk esterase. Spoke to Dr. Nino and he recommended Meropenem 1G Q8 and bilateral nephrostomy tube cultures. All this was completed and patient signed out to JHONATHAN Goldberg in stable condition. EKG demonstrating NSR, rate 73, TN 208 , QRS 106, QTc 423, and left axis deviation without ST or Twave changes. 05/14/18 22:10 *DC/Admit/Observation/Transfer Diagnosis at time of Disposition: Malignant neoplasm UTI (urinary tract infection) Qualifiers: Urinary tract infection type: site unspecified Hematuria presence: with hematuria Qualified Code(s): N39.0 - Urinary tract infection, site not specified ; R31.9 - Hematuria, unspecified Fever Qualifiers: Fever type: unspecified Qualified Code(s): R50.9 - Fever, unspecified - Discharge Dispostion Condition at time of disposition: Stable Decision to Admit order: Yes - Referrals Referrals: Andrea Delgadillo MD [Primary Care Provider] - - Patient Instructions - Post Discharge Activity
--- NOTE | 2018-05-14 19:56 | PDOC ---
Attending Attestation - HPI HPI: The patient is a 77 year old male, with a significant PMH of NIDDM,BPH, HTN, bladder cancer with metastasis to liver and bone and placement of bilateral nephrostomy tubes who presents to the emergency department with a fever that began earlier today. The patient states he measured his temperature multiple times and had a high fever of 101. The patient also reports a decrease output in the left nephrostomy bag. The patient denies chest pain, shortness of breath , headache and dizziness.Denies chills, nausea, vomit, diarrhea and constipation. Denies dysuria, frequency, urgency and hematuria. Allergies: NKDA Past surgical history: None reported Social history: Former smoker (quit smoking 1995) PCP: Andrea Delgadillo Documentation prepared by Lisa Paulino, acting as medical appliance maker for Jeanette Vance MD. - Physicial Exam PE: 05/14/18 23:27 GENERAL: Well developed, well nourished. Awake and alert. No acute distress. HEENT: Normocephalic, atraumatic. PERRLA, EOMI. No conjunctival pallor. Sclera are non- icteric. Moist mucous membranes. Oropharynx is clear. NECK: Supple. Full ROM. No JVD. No murmurs, rubs and bruits. No thyromegaly. No lymphadenopathy. CARDIOVASCULAR: +Tachycardia. No murmurs, rubs, or gallops. Distal pulses are 2+ and symmetric. PULMONARY: No evidence of respiratory distress. Lungs clear to auscultation bilaterally. No wheezing, rales or rhonchi. ABDOMINAL: +Bilateral nephrostomy tube. Soft. Non-tender. Non-distended. No rebound or guarding. No organomegaly. Normoactive bowel sounds. MUSCULOSKELETAL Normal range of motion at all joints. No bony deformities or tenderness. No CVA tenderness. EXTREMITIES: No cyanosis. No clubbing. No edema. No calf tenderness. SKIN: Warm and dry. Normal capillary refill. No rashes. No jaundice. NEUROLOGICAL: Alert, awake, appropriate x3. No motor deficits in the in face, upper extremities and lower extremities. PSYCHIATRIC: Cooperative. Good eye contact. Appropriate mood and affect. <Lisa Paulino - Last Filed: 05/14/18 23:27> - Resident Resident Name: Ang Tripp - ED Attending Attestation I have performed the following: I have examined & evaluated the patient, The case was reviewed & discussed with the resident, I agree w/resident's findings & plan, Exceptions are as noted - HPI HPI: 05/14/18 19:55 77-year-old male who was undergoing chemotherapy for bladder cancer presents because of concern of fever 05/14/18 21:34 Temperature found to be 102 - Medical Decision Making 05/15/18 00:31 77 yo male s/p chemo p/w fever,UTI and admitted for antibiotics <Jeanette Vance - Last Filed: 05/15/18 00:31>
[2018-05-14] MEDS ORDERED: SODIUM CHLORIDE 1,000 ML IV STA (20:52)
[2018-05-14] MEDS ORDERED: ACETAMINOPHEN 1000 MG/100 ML VIAL (NON FORMULARY) IVPB ONE (20:52)
[2018-05-14 21:03] LABS: BASO % 0.3 % (0-2.0); EOS % 0.5 % (0-4.5); HEMATOCRIT 23.5 % (35.4-49); HEMOGLOBIN 7.7 GM/dL (11.7-16.9); LYMPH % 16.6 % (8-40); MCH 20.7 pg (25.7-33.7); MCHC 32.7 g/dl (32.0-35.9); MEAN CELL VOLUME 63.1 fl (80-96); MEAN PLT VOLUME 8.8 fl (7.5-11.1); MONO % 1.8 % (3.8-10.2); NEUT % 80.8 % (42.8-82.8); PLATELET COUNT 121 K/MM3 (134-434); RBC 3.73 M/mm3 (4.00-5.60); RDW 22.3 % (11.9-15.9); WHITE BLOOD COUNT 5.2 K/mm3 (4.0-10.0)
[2018-05-14] MEDS ORDERED: MEROPENEM 1 GM in DEXTROSE 5%-WATER 100 ML IVPB SCH (21:15)
[2018-05-14 21:19] LABS: ALBUMIN 3.5 g/dl (3.4-5.0); ANION GAP 8 (8-16); BLOOD UREA NITROGEN 18 mg/dL (7-18); CALCIUM 8.7 mg/dL (8.5-10.1); CHLORIDE 103 mmol/L (98-107); CO2 27 mmol/L (21-32); CREATININE 0.8 mg/dL (0.7-1.3); GLUCOSE,RANDOM 111 mg/dL (74-106); POTASSIUM 4.3 mmol/L (3.5-5.1); SGOT/AST 24 U/L (15-37); SGPT/ALT 29 U/L (12-78); SODIUM 138 mmol/L (136-145); TOT PROT 6.9 g/dl (6.4-8.2)
[2018-05-14 21:21] LABS: URINE APPEARANCE TURBID; URINE BILIRUBIN NEGATIVE (<2.0 mg/dL); URINE COLOR YELLOW; URINE GLUCOSE (UA) NEGATIVE (NEGATIVE); URINE KETONE NEGATIVE (NEGATIVE); URINE NITRITE POSITIVE (NEGATIVE); URINE UROBILINOGEN NEGATIVE mg/dL (0.2-1.0)
[2018-05-14 21:23] LABS: URINE LEUK ESTERASE 3+ (NEGATIVE); URINE PROTEIN 2+ (NEGATIVE)
[2018-05-14 21:23] LABS: ALK PHOS 161 U/L (45-117); BILIRUBIN,TOTAL 0.7 mg/dL (0.2-1.0)
[2018-05-14 21:24] LABS: URINE BACTERIA MANY /hpf (NONE SEEN); URINE HYALINE CAST 3 /lpf; URINE MUCUS RARE
[2018-05-14 21:44] LABS: MACROCYTOSIS 1+
[2018-05-14 21:45] LABS: ANISOCYTOSIS 3+; PLATELET ESTIMATE DECREASED
[2018-05-14] MEDS: MEROPENEM 1 GM in DEXTROSE 5%-WATER 100 ML IVPB SCH (22:21)
[2018-05-14] MEDS: SODIUM CHLORIDE 1,000 ML IV SCH (22:55)
--- NOTE | 2018-05-14 23:19 | HP ---
CHIEF COMPLAINT: fever PCP: Pedro Delgadillo HISTORY OF PRESENT ILLNESS: This is a 77 year old male with a past medical history significant for bladder CA with mets to liver and bone currently on chemo who presented to the ED with fever today. Pt also reports decreased urine output from left nephrostomy tube but has since resolved upon arrival to the ED. ER course was notable for: (1) WBC 5.2 (2) Temp 102 (3) u/a c/w UTI Recent Travel: pt denies PAST MEDICAL HISTORY: HTN, NIDDM, BPH, bladder CA with mets to liver and bone PAST SURGICAL HISTORY: B/L nephrostomy tubes, left changed 04/20/18, R 03/21/18 multiple TURBTs and BCG treatment Social History: Smoking: quit 1989, smoked 1.5ppd from age of 17 Alcohol: pt denies current use Drugs: pt denies Family History: mother age 80, COPD father in his 40s, "heart problem" brother age 86, Parkinson's disease 2 children alive and well Allergies No Known Allergies Allergy (Verified 05/14/18 18:31) HOME MEDICATIONS: 3 Medication Instructions Recorded Metformin HCl [Glucophage] 1,000 mg PO BID 06/01/15 Finasteride 5 mg PO DAILY 08/30/17 Aspirin Coated [Ecotrin -] 81 mg PO DAILY 03/03/18 Silodosin [Rapaflo] 8 mg PO HS 03/03/18 Zolpidem Tartrate [Ambien] 5 mg PO HS 03/03/18 Ferrous Sulfate [Iron] 325 mg PO DAILY 03/17/18 Metoclopramide HCl 5 mg PO BID PRN 03/30/18 Multivit-Mins/Iron/Folic/Lycop 1 each PO DAILY 04/12/18 [Centrum Men's Tablet] Metoprolol Succinate [Toprol XL -] 100 mg PO DAILY 05/14/18 REVIEW OF SYSTEMS CONSTITUTIONAL: Present: fever Absent: chills, diaphoresis, generalized weakness, malaise, loss of appetite, weight change HEENT: Absent: rhinorrhea, nasal congestion, throat pain, throat swelling, difficulty swallowing, mouth swelling, ear pain, eye pain, visual changes CARDIOVASCULAR: Absent: chest pain, syncope, palpitations, irregular heart rate, lightheadedness , peripheral edema RESPIRATORY: Absent: cough, shortness of breath, dyspnea with exertion, orthopnea, wheezing, stridor, hemoptysis GASTROINTESTINAL: Absent: abdominal pain, abdominal distension, nausea, vomiting, diarrhea, constipation, melena, hematochezia GENITOURINARY: Present: decreased urine output L nephrostomy Absent: dysuria, frequency, urgency, hesitancy, hematuria, flank pain, genital pain MUSCULOSKELETAL: Absent: myalgia, arthralgia, joint swelling, back pain, neck pain SKIN: Absent: rash, itching, pallor HEMATOLOGIC/IMMUNOLOGIC: Absent: easy bleeding, easy bruising, lymphadenopathy, frequent infections ENDOCRINE: Absent: unexplained weight gain, unexplained weight loss, heat intolerance, cold intolerance NEUROLOGIC: Absent: headache, focal weakness or paresthesias, dizziness, unsteady gait, seizure, mental status changes, bladder or bowel incontinence PSYCHIATRIC: Absent: anxiety, depression, suicidal or homicidal ideation, hallucinations. PHYSICAL EXAMINATION Vital Signs - 24 hr 3 05/14/18 05/14/18 18:29 20:11 Temperature 98.8 F 102 F H Pulse Rate 93 H Respiratory 18 Rate Blood Pressure 124/76 O2 Sat by Pulse 99 Oximetry (%) GENERAL: Awake, alert, and fully oriented, in no acute distress. HEAD: Normal with no signs of trauma. EYES: Pupils equal, round and reactive to light, extraocular movements intact, sclera anicteric, conjunctiva clear. No lid lag. EARS, NOSE, THROAT: Ears normal, nares patent, oropharynx clear without exudates. Moist mucous membranes. NECK: Normal range of motion, supple without lymphadenopathy, JVD, or masses. LUNGS: Breath sounds equal, clear to auscultation bilaterally. No wheezes, and no crackles. No accessory muscle use. HEART: Regular rate and rhythm, normal S1 and S2 without murmur, rub or gallop. ABDOMEN: Soft, nontender, not distended, normoactive bowel sounds, no guarding, no rebound, no masses. No hepatomegaly or splenomegaly. B/L nephrostomy tubes in place MUSCULOSKELETAL: Normal range of motion at all joints. No bony deformities or tenderness. No CVA tenderness. UPPER EXTREMITIES: 2+ pulses, warm, well-perfused. No cyanosis. No clubbing. No peripheral edema. LOWER EXTREMITIES: 2+ pulses, warm, well-perfused. No calf tenderness. No peripheral edema. NEUROLOGICAL: Cranial nerves II-XII intact. Normal speech. Normal gait. PSYCHIATRIC: Cooperative. Good eye contact. Appropriate mood and affect. SKIN: Warm, dry, normal turgor, no rashes or lesions noted, normal capillary refill. mobile 4-5cm lump upper back just right of spine, nontender, no erythema Laboratory Results - last 24 hr 3 05/14/18 05/14/18 05/14/18 20:45 20:45 21:05 WBC 5.2 RBC 3.73 L Hgb 7.7 L Hct 23.5 L MCV 63.1 L MCH 20.7 L MCHC 32.7 RDW 22.3 H Plt Count 121 L D MPV 8.8 Absolute Neuts (auto) 4.2 Neutrophils % 80.8 Lymphocytes % 16.6 Monocytes % 1.8 L Eosinophils % 0.5 Basophils % 0.3 Nucleated RBC % 0 Hypochromia 3+ Platelet Estimate Decreased Platelet Comment No clumping noted Anisocytosis 3+ Microcytosis 2+ Macrocytosis 1+ Sodium 138 Potassium 4.3 Chloride 103 Carbon Dioxide 27 Anion Gap 8 BUN 18 Creatinine 0.8 Creat Clearance w eGFR > 60 Random Glucose 111 H Calcium 8.7 Total Bilirubin 0.7 AST 24 ALT 29 Alkaline Phosphatase 161 H D Total Protein 6.9 Albumin 3.5 Urine Color Yellow Urine Appearance Turbid Urine pH 5.0 Ur Specific [place] 1.015 Urine Protein 2+ H Urine Glucose (UA) Negative Urine Ketones Negative Urine Blood 2+ H Urine Nitrite Positive Urine Bilirubin Negative Urine Urobilinogen Negative Ur Leukocyte Esterase 3+ H Urine WBC (Auto) 124 Urine RBC (Auto) 22 Urine Bacteria Many Hyaline Casts 3 Urine Mucus Rare ASSESSMENT/PLAN: 77yM with PMH HTN, NIDDM, BPH, bladder CA with mets to liver and bone, recent hospitalization 04/14-04/26 for urosepsis presented to the ED with fever. sepsis secondary to UTI - as evidenced by fever, tachycardia and abnormal U/A - recent u/a pansensitive, ID consulted by ED, ordered meropenem as pt has h/ o ESBL E coli - follow urine culture - cont antibiotics - ID consult appreciated - NS @ 75cc/hr, reassess need in am HTN - cont home meds, hold if sBP low NIDDM - hold metformin while inpatient - BGM AC/HS with novolog SS BPH - cont home meds or formulary equivalents DVT PPX - heparin 5000u TID FEN - NS @ 75cc/hr - BMP in am - diabetic/low sodium diet as tolerated Dispo: pt currently requires further inpatient management of his emergent condition. Visit type - Emergency Visit Emergency Visit: Yes ED Registration Date: 05/14/18 Care time: The patient presented to the Emergency Department on the above date and was hospitalized for further evaluation of their emergent condition. - New Patient This patient is new to me today: Yes Date on this admission: 05/14/18 - Critical Care Critical Care patient: No Hospitalist Screening - Colonoscopy Questionnaire Colonoscopy Questionnaire: Colonoscopy Questionnaire - Patient: 50 - 75 years old and never had a screening colonoscopy: No History of colon or rectal polyps, or CA: No History of IBD, Crohn's disease or UC: No History of abdominal radiation therapy as a child: No - Relative: 1 with colon or rectal CA, or polyps at age 60 or younger: No Colon or rectal CA diagnosed at age 45 or younger: No Multiple relatives with colon or rectal CA: No - Outcome: Screening Result: Negative Screen
[2018-05-14] MEDS ORDERED: METOCLOPRAMIDE HCL 10 MG TABLET (FP) PO PRN (23:45)
[2018-05-15] MEDS: ZOLPIDEM TARTRATE 5 MG TABLET PO PRN ×2 (01:31→22:56)
[2018-05-15] MEDS: MEROPENEM 1 GM in DEXTROSE 5%-WATER 100 ML IVPB SCH ×4 (06:27→18:39)
[2018-05-15] MEDS: INSULIN SLIDING SCALE (NOVOLOG) 1 VIAL SQ SCH ×4 (06:28→21:41)
[2018-05-15] MEDS: HEPARIN NA (PORCINE) 5,000 UNITS/ML 1ML VIAL SQ SCH ×3 (06:28→21:43)
[2018-05-15 07:41] LABS: BASO % 0.1 % (0-2.0); EOS % 0.7 % (0-4.5); HEMATOCRIT 23.9 % (35.4-49); HEMOGLOBIN 7.9 GM/dL (11.7-16.9); LYMPH % 8.4 % (8-40); MCH 20.7 pg (25.7-33.7); MEAN CELL VOLUME 62.8 fl (80-96); MONO % 2.2 % (3.8-10.2); NEUT % 88.6 % (42.8-82.8); RDW 23.1 % (11.9-15.9); WHITE BLOOD COUNT 5.6 K/mm3 (4.0-10.0)
[2018-05-15 08:10] LABS: ANION GAP 9 (8-16); BLOOD UREA NITROGEN 19 mg/dL (7-18); CALCIUM 8.5 mg/dL (8.5-10.1); CHLORIDE 102 mmol/L (98-107); CO2 23 mmol/L (21-32); CREATININE 0.9 mg/dL (0.7-1.3); GLUCOSE,RANDOM 139 mg/dL (74-106); MAGNESIUM 1.8 mg/dL (1.8-2.4); PHOSPHOROUS 3.2 mg/dL (2.5-4.9); POTASSIUM 3.8 mmol/L (3.5-5.1); SODIUM 134 mmol/L (136-145)
[2018-05-15] MEDS: TAMSULOSIN HCL 0.4 MG CAP.ER.24H (FP) PO SCH (08:49)
[2018-05-15 09:53] LABS: MEAN PLT VOLUME 8.7 fl (7.5-11.1); PLATELET COUNT 87 K/MM3 (134-434)
--- NOTE | 2018-05-15 10:13 | EKG ---
Test Reason : Blood Pressure : / mmHG Vent. Rate : 073 BPM Atrial Rate : 073 BPM P-R Int : 208 ms QRS Dur : 106 ms QT Int : 384 ms P-R-T Axes : 021 -44 035 degrees QTc Int : 423 ms NORMAL SINUS RHYTHM LEFT AXIS DEVIATION ABNORMAL ECG WHEN COMPARED WITH ECG OF 14-APR-2018 20:17, PREMATURE ATRIAL COMPLEXES ARE NO LONGER PRESENT Confirmed by ESTHER PORTER MD ([id number]) on 05/15/2018 10:12:34 AM Referred By: Confirmed By:ESTHER PORTER MD
--- NOTE | 2018-05-15 10:26 | CON.ID ---
Consult Consult Specialty:: infectious diseases Reason for Consultation:: fever,sepsis - History of Present Illness Chief Complaint: fever History of Present Illness: 77 year old male, with a significant PMH of NIDDM,BPH, HTN, bladder cancer with metastasis to liver and bone and placement of bilateral nephrostomy tubes admitted to the hospital because of fevers. patients rectal temp was very high.and patient was admitted for work up. he has b/l nephrostomy tubes in place and patient is getting chemo therapy making him very immunocompromised denies any other symptoms - History Source History Provided By: Patient, Family Member - Past Medical History Cardio/Vascular: Yes: HTN, Hyperlipdemia Renal/: Yes: Renal Failure, BPH, Cancer, Hematuria Endocrine: Yes: Diabetes Mellitus - Alcohol/Substance Use Hx Alcohol Use: No - Smoking History Smoking history: Former smoker Have you smoked in the past 12 months: No Aproximately how many cigarettes per day: 0 If you are a former smoker, when did you quit?: 1989 Home Medications - Allergies Allergies/Adverse Reactions: Allergies Allergy/AdvReac Type Severity Reaction Status Date / Time No Known Allergies Allergy Verified 05/14/18 18:31 - Home Medications Home Medications: Ambulatory Orders RX: Metformin HCl [Glucophage] 1,000 mg PO BID 06/01/15 RX: Finasteride 5 mg PO DAILY 08/30/17 RX: Aspirin Coated [Ecotrin -] 81 mg PO DAILY 03/03/18 RX: Silodosin [Rapaflo] 8 mg PO HS 03/03/18 RX: Zolpidem Tartrate [Ambien] 5 mg PO HS 03/03/18 RX: Ferrous Sulfate [Iron] 325 mg PO DAILY 03/17/18 RX: Metoclopramide HCl 5 mg PO BID PRN 03/30/18 RX: Multivit-Mins/Iron/Folic/Lycop [Centrum Men's Tablet] 1 each PO DAILY RX: Metoprolol Succinate [Toprol XL -] 100 mg PO DAILY 05/14/18 Review of Systems - Review of Systems Constitutional: reports: Fever Eyes: reports: No Symptoms HENT: reports: No Symptoms Neck: reports: No Symptoms Cardiovascular: reports: No Symptoms Respiratory: reports: No Symptoms Gastrointestinal: reports: No Symptoms Genitourinary: reports: No Symptoms Musculoskeletal: reports: No Symptoms Integumentary: reports: No Symptoms Neurological: reports: No Symptoms Endocrine: reports: No Symptoms Hematology/Lymphatic: reports: No Symptoms Psychiatric: reports: No Symptoms Physical Exam Vital Signs: Vital Signs Temperature 97.5 F L 05/15/18 07:20 Pulse Rate 109 H 05/15/18 07:20 Respiratory Rate 20 05/15/18 07:20 Blood Pressure 140/96 05/15/18 07:20 O2 Sat by Pulse Oximetry (%) 97 05/15/18 01:00 Constitutional: Yes: Well Nourished, No Distress, Calm Cardiovascular: Yes: Regular Rate and Rhythm Respiratory: Yes: Regular, CTA Bilaterally Gastrointestinal: Yes: Normal Bowel Sounds, Soft Renal/: Yes: Other (b/l nephrostomy tube in place) Musculoskeletal: Yes: WNL Extremities: Yes: WNL Neurological: Yes: Alert, Oriented Psychiatric: Yes: Alert, Oriented Labs: CBC, BMP 05/15/18 06:10 05/15/18 06:10 Imaging - Results Chest X-ray: Report Reviewed, Image Reviewed Ultrasound: Report Reviewed, Image Reviewed Assessment/Plan 77yM with PMH HTN, NIDDM, BPH, bladder CA with mets to liver and bone, recent hospitalization 04/14-04/26 for urosepsis presented to the ED with fever. sepsis secondary to UTI HTN NIDDM BPH plan will continue current mgmt continue abx await for all cx report rest as per the team
[2018-05-15] MEDS ORDERED: PT OWN MED DRAWER 7, Y5N ONE ×2 (11:00→18:38)
[2018-05-15] MEDS: MULTIVITAMINS THER W-MINERALS COMBO TABLET (FP) PO SCH (11:04)
[2018-05-15] MEDS: ASPIRIN COATED 81 MG TABLET.EC PO SCH (11:05)
[2018-05-15] MEDS: FERROUS SO4 325 MG TABLET (FP) PO SCH (11:05)
[2018-05-15] MEDS: FINASTERIDE 5 MG TABLET (FP) PO SCH (11:05)
--- NOTE | 2018-05-15 22:19 | PN ---
Progress Note, Physician - Current Medication List Current Medications: Active Medications Aspirin (Ecotrin -) 81 mg PO DAILY [facility] Last Admin: 05/15/18 11:05 Dose: 81 mg Ferrous Sulfate (Feosol -) 325 mg PO DAILY [facility] Last Admin: 05/15/18 11:05 Dose: 325 mg Finasteride (Proscar -) 5 mg PO DAILY [facility] Last Admin: 05/15/18 11:05 Dose: 5 mg Heparin Sodium (Porcine) (Heparin -) 5,000 unit SQ TID [facility] Last Admin: 05/15/18 21:43 Dose: 5,000 unit Sodium Chloride (Normal Saline -) 1,000 mls @ 75 mls/hr IV ASDIR [facility] Last Admin: 05/14/18 22:55 Dose: 75 mls/hr Meropenem 1 gm/ Dextrose 100 mls @ 200 mls/hr IVPB Q8H-IV [facility] Last Admin: 05/15/18 18:39 Dose: 200 mls/hr Insulin Aspart (Novolog Vial Sliding Scale -) 1 vial SQ ACHS [facility]; Protocol Last Admin: 05/15/18 21:41 Dose: 2 units Metoclopramide HCl (Reglan -) 5 mg PO BID PRN PRN Reason: NAUSEA Metoprolol Succinate (Toprol Xl -) 100 mg PO DAILY [facility] Last Admin: 05/15/18 11:05 Dose: 100 mg Multivitamins/Minerals (Theragran-M) 1 each PO DAILY [facility] Last Admin: 05/15/18 11:04 Dose: 1 each Tamsulosin HCl (Flomax -) 0.4 mg PO DAILY@0830 [facility] Last Admin: 05/15/18 08:49 Dose: 0.4 mg Zolpidem Tartrate (Ambien -) 5 mg PO HS PRN PRN Reason: INSOMNIA Last Admin: 05/15/18 01:31 Dose: 5 mg - Objective Vital Signs: Vital Signs Temperature 98.1 F 05/15/18 16:30 Pulse Rate 68 05/15/18 16:30 Respiratory Rate 18 05/15/18 16:30 Blood Pressure 121/79 05/15/18 16:30 O2 Sat by Pulse Oximetry (%) 97 05/15/18 09:00 Labs: CBC, BMP 05/15/18 06:10 05/15/18 06:10
--- NOTE | 2018-05-15 23:42 | CONSULT ---
Consult - text type - Consultation Consultation Note: Patient seen and examined 77 y/o male with PMH significant for hypertension, NIDDM, BPH, and stage IV bladder cancer on gemzar/carboplatin with neupogen support, and placement of bilateral nephrostomy tubes presenting with Temp reading to 101 and decreased output in left nephrostomy bag. He was admitted a few weeks prior for a similar presentation. Denies chest pain, cough, headache, visual changes, SOB, or other symptoms. Allergies/Adverse Reactions: Allergies Allergy/AdvReac Type Severity Reaction Status Date / Time No Known Allergies Allergy Verified 05/14/18 18:31 Home Medications: Ambulatory Orders Metformin HCl [Glucophage] 1,000 mg PO BID 06/01/15 Finasteride 5 mg PO DAILY 08/30/17 Aspirin Coated [Ecotrin -] 81 mg PO DAILY 03/03/18 Silodosin [Rapaflo] 8 mg PO HS 03/03/18 Zolpidem Tartrate [Ambien] 5 mg PO HS 03/03/18 Ferrous Sulfate [Iron] 325 mg PO DAILY 03/17/18 Metoclopramide HCl 5 mg PO BID PRN 03/30/18 Multivit-Mins/Iron/Folic/Lycop [Centrum Men's Tablet] 1 each PO DAILY 04/12/18 Metoprolol Succinate [Toprol XL -] 100 mg PO DAILY 05/14/18 Past Medical History Cancer: Yes (BLADDER) HTN: Yes DM Cirrhosis - Suicide/Smoking/Psychosocial Hx Smoking Status: Yes Smoking History: Unknown if ever smoked Active Medications Generic Name Dose Route Start Last Admin Trade Name Freq PRN Reason Stop Dose Admin Aspirin 81 mg 05/15/18 10:00 05/15/18 11:05 Ecotrin - PO 81 mg DAILY [facility] Administration Ferrous Sulfate 325 mg 05/15/18 10:00 05/15/18 11:05 Feosol - PO 325 mg DAILY [facility] Administration Finasteride 5 mg 05/15/18 10:00 05/15/18 11:05 Proscar - PO 5 mg DAILY [facility] Administration Heparin Sodium (Porcine) 5,000 unit 05/15/18 06:00 05/16/18 05:45 Heparin - SQ 5,000 unit TID [facility]IT Administration Sodium Chloride 1,000 mls @ 75 mls/hr 05/14/18 22:45 05/14/18 22:55 Normal Saline - IV 75 mls/hr ASDIR LIT Administration Meropenem 1 gm/ Dextrose 100 mls @ 200 mls/hr 05/15/18 10:00 05/16/18 02:40 IVPB 200 mls/hr Q8H-IV [facility] Administration Insulin Aspart 1 vial 05/15/18 07:00 05/16/18 06:24 Novolog Vial Sliding Scale - SQ Not Given ACHS [facility] Protocol Metoclopramide HCl 5 mg 05/14/18 23:45 Reglan - PO BID PRN NAUSEA Metoprolol Succinate 100 mg 05/15/18 10:00 05/15/18 11:05 Toprol Xl - PO 100 mg DAILY [facility]IT Administration Multivitamins/Minerals 1 each 05/15/18 10:00 05/15/18 11:04 Theragran-M PO 1 each DAILY [facility] Administration Tamsulosin HCl 0.4 mg 05/15/18 08:30 05/15/18 08:49 Flomax - PO 0.4 mg DAILY@0830 [facility] Administration Zolpidem Tartrate 5 mg 05/14/18 23:45 05/15/18 22:56 Ambien - PO 5 mg HS PRN Administration INSOMNIA *Physical Exam AFVSS Cor: RSR, No murmurs, No gallops Lungs: Clear to P&A Abd: Soft, Normal bowel sounds, No organomegaly Ext:No significant edema Skin: No rashes, Integument intact Abnormal Lab Results 05/15/18 05/15/18 06:10 06:10 RBC 3.80 L Hgb 7.9 L Hct 23.9 L MCV 62.8 L MCH 20.7 L RDW 23.1 H Plt Count 87 L D Neutrophils % 88.6 H Monocytes % 2.2 L Sodium 134 L BUN 19 H Random Glucose 139 H D A/P 77 year old male with DM, HTn, Cirrhosis, metastatic bladder cancer, on gemzar/ carboplatin, C2 D12 today. Also bilateral nephrostomy tubes in place. Fever ? gemzar related h/o ESBL blood cx neg. Urine cx pending on meropenem f/u ID recs NEupogen as necessary PRBC transfusion as necessary
[2018-05-16] MEDS: MEROPENEM 1 GM in DEXTROSE 5%-WATER 100 ML IVPB SCH ×3 (02:40→17:28)
[2018-05-16] MEDS ORDERED: ACETAMINOPHEN 325 MG TABLET (FP) ONE (03:25)
[2018-05-16] MEDS: HEPARIN NA (PORCINE) 5,000 UNITS/ML 1ML VIAL SQ SCH ×3 (05:45→22:33)
[2018-05-16] MEDS: INSULIN SLIDING SCALE (NOVOLOG) 1 VIAL SQ SCH ×4 (06:24→22:37)
[2018-05-16] MEDS: TAMSULOSIN HCL 0.4 MG CAP.ER.24H (FP) PO SCH (08:36)
[2018-05-16] MEDS ORDERED: PT OWN MED DRAWER 7, Y5N ONE ×2 (10:19→17:22)
[2018-05-16] MEDS: FINASTERIDE 5 MG TABLET (FP) PO SCH (10:23)
[2018-05-16] MEDS: FERROUS SO4 325 MG TABLET (FP) PO SCH (10:23)
[2018-05-16] MEDS: ASPIRIN COATED 81 MG TABLET.EC PO SCH (10:23)
[2018-05-16] MEDS: MULTIVITAMINS THER W-MINERALS COMBO TABLET (FP) PO SCH (10:23)
--- NOTE | 2018-05-16 14:09 | PN ---
Progress Note, Physician History of Present Illness: patient stable no new issues patients urine is positive - Current Medication List Current Medications: Active Medications Aspirin (Ecotrin -) 81 mg PO DAILY [facility] Last Admin: 05/16/18 10:23 Dose: 81 mg Ferrous Sulfate (Feosol -) 325 mg PO DAILY [facility] Last Admin: 05/16/18 10:23 Dose: 325 mg Finasteride (Proscar -) 5 mg PO DAILY [facility] Last Admin: 05/16/18 10:23 Dose: 5 mg Heparin Sodium (Porcine) (Heparin -) 5,000 unit SQ TID [facility] Last Admin: 05/16/18 13:43 Dose: 5,000 unit Sodium Chloride (Normal Saline -) 1,000 mls @ 75 mls/hr IV ASDIR [facility] Last Admin: 05/14/18 22:55 Dose: 75 mls/hr Meropenem 1 gm/ Dextrose 100 mls @ 200 mls/hr IVPB Q8H-IV [facility] Last Admin: 05/16/18 10:22 Dose: 200 mls/hr Insulin Aspart (Novolog Vial Sliding Scale -) 1 vial SQ ACHS [facility]; Protocol Last Admin: 05/16/18 12:19 Dose: Not Given Metoclopramide HCl (Reglan -) 5 mg PO BID PRN PRN Reason: NAUSEA Metoprolol Succinate (Toprol Xl -) 100 mg PO DAILY [facility] Last Admin: 05/16/18 10:23 Dose: 100 mg Multivitamins/Minerals (Theragran-M) 1 each PO DAILY [facility] Last Admin: 05/16/18 10:23 Dose: 1 each Tamsulosin HCl (Flomax -) 0.4 mg PO DAILY@0830 [facility] Last Admin: 05/16/18 08:36 Dose: 0.4 mg Zolpidem Tartrate (Ambien -) 5 mg PO HS PRN PRN Reason: INSOMNIA Last Admin: 05/15/18 22:56 Dose: 5 mg - Objective Vital Signs: Vital Signs Temperature 98.2 F 05/16/18 06:46 Pulse Rate 69 05/16/18 06:46 Respiratory Rate 20 05/16/18 06:46 Blood Pressure 146/96 05/16/18 06:46 O2 Sat by Pulse Oximetry (%) 97 05/15/18 21:00 Constitutional: Yes: No Distress, Calm Cardiovascular: Yes: Regular Rate and Rhythm Respiratory: Yes: Regular, CTA Bilaterally Gastrointestinal: Yes: Normal Bowel Sounds, Soft Genitourinary: Yes: Other (b/l nephrostomy tube in place) Musculoskeletal: Yes: WNL Extremities: Yes: WNL Labs: CBC, BMP 05/15/18 06:10 05/15/18 06:10 Assessment/Plan 77yM with PMH HTN, NIDDM, BPH, bladder CA with mets to liver and bone, recent hospitalization 04/14-04/26 for urosepsis presented to the ED with fever. sepsis secondary to UTI HTN NIDDM BPH plan will continue current mgmt continue abx await for identification of the org rest as per the team
[2018-05-16] MEDS: DOCUSATE SODIUM 100 MG CAPSULE (FP) PO SCH ×2 (17:21→22:33)
--- NOTE | 2018-05-16 19:02 | PN ---
Progress Note (short form) - Note Progress Note: Patient seen and examined No specific complaints on ROS. Last Vital Signs Temp Pulse Resp BP Pulse Ox 97.9 F 78 18 139/88 97 05/16/18 14:54 05/16/18 14:54 05/16/18 14:54 05/16/18 14:54 05/16/18 09:00 HEENT: FLETCHER, EOM Intact Oropharynx: No thrush, No mucositis Neck: Supple Nodes: Without adenopathy Cor: RSR, No murmurs, No gallops Lungs: Clear to P&A Abd: Soft, Normal bowel sounds, No organomegaly Bilateral nephrostomy tubes Ext:No significant edema Skin: No rashes, Integument intact CBC, BMP 05/15/18 06:10 05/15/18 06:10 Current Medications Generic Name Dose Route Start Last Admin Trade Name Freq PRN Reason Stop Dose Admin Aspirin 81 mg 05/15/18 10:00 05/16/18 10:23 Ecotrin - PO 81 mg DAILY [facility]IT Administration Docusate Sodium 300 mg 05/16/18 15:45 05/16/18 17:21 Colace - PO Not Given HS LIT Ferrous Sulfate 325 mg 05/15/18 10:00 05/16/18 10:23 Feosol - PO 325 mg DAILY [facility]IT Administration Finasteride 5 mg 05/15/18 10:00 05/16/18 10:23 Proscar - PO 5 mg DAILY [facility] Administration Heparin Sodium (Porcine) 5,000 unit 05/15/18 06:00 05/16/18 13:43 Heparin - SQ 5,000 unit TID [facility]IT Administration Sodium Chloride 1,000 mls @ 75 mls/hr 05/14/18 22:45 05/14/18 22:55 Normal Saline - IV 75 mls/hr ASDIR LIT Administration Meropenem 1 gm/ Dextrose 100 mls @ 200 mls/hr 05/15/18 10:00 05/16/18 17:28 IVPB 200 mls/hr Q8H-IV [facility] Administration Insulin Aspart 1 vial 05/15/18 07:00 05/16/18 17:28 Novolog Vial Sliding Scale - SQ 3 units ACHS [facility] Administration Protocol Metoclopramide HCl 5 mg 05/14/18 23:45 Reglan - PO BID PRN NAUSEA Metoprolol Succinate 100 mg 05/15/18 10:00 05/16/18 10:23 Toprol Xl - PO 100 mg DAILY [facility]IT Administration Multivitamins/Minerals 1 each 05/15/18 10:00 05/16/18 10:23 Theragran-M PO 1 each DAILY [facility] Administration Tamsulosin HCl 0.4 mg 05/15/18 08:30 05/16/18 08:36 Flomax - PO 0.4 mg DAILY@0830 [facility] Administration Zolpidem Tartrate 5 mg 05/14/18 23:45 05/15/18 22:56 Ambien - PO 5 mg HS PRN Administration INSOMNIA Impression: Metastatic bladder ca - C2-d-13, Urosepsis Bilateral nephrostomy tubes Anemia Plan Per ID antibiotic regimen and schedule Would likely benefit from transfusion and increase Hb prior to discharge. Chemotherapy being delayed in view of infection.
--- NOTE | 2018-05-16 22:16 | PN ---
Progress Note, Physician History of Present Illness: No new complaints - Current Medication List Current Medications: Active Medications Aspirin (Ecotrin -) 81 mg PO DAILY [facility] Last Admin: 05/16/18 10:23 Dose: 81 mg Docusate Sodium (Colace -) 300 mg PO HS [facility] Last Admin: 05/16/18 17:21 Dose: Not Given Ferrous Sulfate (Feosol -) 325 mg PO DAILY [facility] Last Admin: 05/16/18 10:23 Dose: 325 mg Finasteride (Proscar -) 5 mg PO DAILY [facility] Last Admin: 05/16/18 10:23 Dose: 5 mg Heparin Sodium (Porcine) (Heparin -) 5,000 unit SQ TID [facility] Last Admin: 05/16/18 13:43 Dose: 5,000 unit Sodium Chloride (Normal Saline -) 1,000 mls @ 75 mls/hr IV ASDIR [facility] Last Admin: 05/14/18 22:55 Dose: 75 mls/hr Meropenem 1 gm/ Dextrose 100 mls @ 200 mls/hr IVPB Q8H-IV [facility] Last Admin: 05/16/18 17:28 Dose: 200 mls/hr Insulin Aspart (Novolog Vial Sliding Scale -) 1 vial SQ ACHS [facility]; Protocol Last Admin: 05/16/18 17:28 Dose: 3 units Metoclopramide HCl (Reglan -) 5 mg PO BID PRN PRN Reason: NAUSEA Metoprolol Succinate (Toprol Xl -) 100 mg PO DAILY [facility] Last Admin: 05/16/18 10:23 Dose: 100 mg Multivitamins/Minerals (Theragran-M) 1 each PO DAILY [facility] Last Admin: 05/16/18 10:23 Dose: 1 each Tamsulosin HCl (Flomax -) 0.4 mg PO DAILY@0830 [facility] Last Admin: 05/16/18 08:36 Dose: 0.4 mg Zolpidem Tartrate (Ambien -) 5 mg PO HS PRN PRN Reason: INSOMNIA Last Admin: 05/15/18 22:56 Dose: 5 mg - Objective Vital Signs: Vital Signs Temperature 97.9 F 05/16/18 14:54 Pulse Rate 78 05/16/18 14:54 Respiratory Rate 18 05/16/18 14:54 Blood Pressure 139/88 05/16/18 14:54 O2 Sat by Pulse Oximetry (%) 97 05/16/18 09:00 Neck: Yes: WNL, Supple Cardiovascular: Yes: WNL, Regular Rate and Rhythm Respiratory: Yes: WNL, Regular, CTA Bilaterally Gastrointestinal: Yes: WNL, Normal Bowel Sounds, Soft Labs: CBC, BMP 05/15/18 06:10 05/15/18 06:10
[2018-05-16] MEDS: ZOLPIDEM TARTRATE 5 MG TABLET PO PRN (23:05)
[2018-05-16] MEDS: ACETAMINOPHEN 325 MG TABLET (FP) PO PRN (23:10)
[2018-05-17] MEDS: MEROPENEM 1 GM in DEXTROSE 5%-WATER 100 ML IVPB SCH ×2 (01:44→09:27)
[2018-05-17] MEDS: SODIUM CHLORIDE 1,000 ML IV SCH ×4 (05:07→23:01)
[2018-05-17] MEDS: INSULIN SLIDING SCALE (NOVOLOG) 1 VIAL SQ SCH ×5 (06:12→23:00)
[2018-05-17] MEDS: HEPARIN NA (PORCINE) 5,000 UNITS/ML 1ML VIAL SQ SCH ×3 (06:14→22:59)
[2018-05-17 07:48] LABS: BASO % 1.6 % (0-2.0); EOS % 0.4 % (0-4.5); HEMATOCRIT 22.1 % (35.4-49); HEMOGLOBIN 7.2 GM/dL (11.7-16.9); LYMPH % 46.9 % (8-40); MCH 20.7 pg (25.7-33.7); MCHC 32.8 g/dl (32.0-35.9); MEAN CELL VOLUME 63.3 fl (80-96); MEAN PLT VOLUME 9.4 fl (7.5-11.1); MONO % 8.1 % (3.8-10.2); PLATELET COUNT 84 K/MM3 (134-434); RBC 3.49 M/mm3 (4.00-5.60); RDW 22.5 % (11.9-15.9); WHITE BLOOD COUNT 2.2 K/mm3 (4.0-10.0)
[2018-05-17 08:12] LABS: CHLORIDE 109 mmol/L (98-107); POTASSIUM 4.2 mmol/L (3.5-5.1); SODIUM 143 mmol/L (136-145)
[2018-05-17 08:21] LABS: ALBUMIN 3.1 g/dl (3.4-5.0); ALK PHOS 224 U/L (45-117); ANION GAP 10 (8-16); BILIRUBIN,TOTAL 0.8 mg/dL (0.2-1.0); BLOOD UREA NITROGEN 11 mg/dL (7-18); CALCIUM 8.4 mg/dL (8.5-10.1); CO2 24 mmol/L (21-32); CREATININE 0.6 mg/dL (0.7-1.3); GLUCOSE,RANDOM 101 mg/dL (74-106); SGOT/AST 36 U/L (15-37); SGPT/ALT 42 U/L (12-78); TOT PROT 6.2 g/dl (6.4-8.2)
[2018-05-17] MEDS: TAMSULOSIN HCL 0.4 MG CAP.ER.24H (FP) PO SCH (08:47)
[2018-05-17] MEDS ORDERED: PT OWN MED DRAWER 7, Y5N ONE ×2 (09:22→17:47)
[2018-05-17] MEDS: FERROUS SO4 325 MG TABLET (FP) PO SCH (09:27)
[2018-05-17] MEDS: MULTIVITAMINS THER W-MINERALS COMBO TABLET (FP) PO SCH (09:27)
[2018-05-17] MEDS: ASPIRIN COATED 81 MG TABLET.EC PO SCH (09:27)
[2018-05-17] MEDS: FINASTERIDE 5 MG TABLET (FP) PO SCH (09:27)
--- NOTE | 2018-05-17 10:47 | PN ---
Progress Note, Physician History of Present Illness: patient masha cx reports note infection from b/l nephrostomy tube - Current Medication List Current Medications: Active Medications Acetaminophen (Tylenol -) 650 mg PO Q6H PRN PRN Reason: PAIN LEVEL 4-8 Last Admin: 05/16/18 23:10 Dose: 650 mg Aspirin (Ecotrin -) 81 mg PO DAILY [facility] Last Admin: 05/17/18 09:27 Dose: 81 mg Docusate Sodium (Colace -) 300 mg PO HS [facility] Last Admin: 05/16/18 22:33 Dose: 300 mg Ferrous Sulfate (Feosol -) 325 mg PO DAILY [facility] Last Admin: 05/17/18 09:27 Dose: 325 mg Finasteride (Proscar -) 5 mg PO DAILY [facility] Last Admin: 05/17/18 09:27 Dose: 5 mg Heparin Sodium (Porcine) (Heparin -) 5,000 unit SQ TID [facility] Last Admin: 05/17/18 06:14 Dose: 5,000 unit Sodium Chloride (Normal Saline -) 1,000 mls @ 75 mls/hr IV ASDIR [facility] Last Admin: 05/17/18 05:07 Dose: 75 mls/hr Meropenem 1 gm/ Dextrose 100 mls @ 200 mls/hr IVPB Q8H-IV [facility] Last Admin: 05/17/18 09:27 Dose: 200 mls/hr Piperacillin Sod/Tazobactam (Sod 3.375 gm/ Dextrose) 50 mls @ 100 mls/hr IVPB Q8H-IV [facility]; Protocol Insulin Aspart (Novolog Vial Sliding Scale -) 1 vial SQ ACHS [facility]; Protocol Last Admin: 05/17/18 06:12 Dose: Not Given Metoprolol Succinate (Toprol Xl -) 100 mg PO DAILY [facility] Last Admin: 05/17/18 09:27 Dose: 100 mg Multivitamins/Minerals (Theragran-M) 1 each PO DAILY [facility] Last Admin: 05/17/18 09:27 Dose: 1 each Tamsulosin HCl (Flomax -) 0.4 mg PO DAILY@0830 [facility] Last Admin: 05/17/18 08:47 Dose: 0.4 mg Zolpidem Tartrate (Ambien -) 5 mg PO HS PRN PRN Reason: INSOMNIA Last Admin: 05/16/18 23:05 Dose: 5 mg - Objective Vital Signs: Vital Signs Temperature 97.8 F 05/17/18 10:00 Pulse Rate 62 05/17/18 10:00 Respiratory Rate 18 05/17/18 10:00 Blood Pressure 144/87 05/17/18 10:00 O2 Sat by Pulse Oximetry (%) 97 05/16/18 21:00 Constitutional: Yes: No Distress, Calm Cardiovascular: Yes: Regular Rate and Rhythm Respiratory: Yes: Regular, CTA Bilaterally Gastrointestinal: Yes: Normal Bowel Sounds, Soft Genitourinary: Yes: Other (b/l nephrostomy tube) Musculoskeletal: Yes: WNL Extremities: Yes: WNL Integumentary: Yes: WNL Labs: CBC, BMP 05/17/18 06:40 05/17/18 06:40 Assessment/Plan 77yM with PMH HTN, NIDDM, BPH, bladder CA with mets to liver and bone, recent hospitalization 04/14-04/26 for urosepsis presented to the ED with fever. sepsis secondary to UTI HTN NIDDM BPH plan cx result noted abx changed to zosyn will need iv till tuesday will change to oral on tuesday rest continue current mgmt
[2018-05-17 13:20] LABS: PLATELET ESTIMATE DECREASED
--- NOTE | 2018-05-17 17:35 | PN ---
Progress Note (short form) - Note Progress Note: Patient seen and examined Results of nephrostomy culture noted Zosyn begun Last Vital Signs Temp Pulse Resp BP Pulse Ox 98.2 F 81 18 132/87 97 05/17/18 15:40 05/17/18 15:40 05/17/18 15:40 05/17/18 15:40 05/16/18 21:00 HEENT: FLETCHER, EOM Intact Oropharynx: No thrush, No mucositis Cor: RSR, No murmurs, No gallops Lungs: Clear to P&A Abd: Soft, Normal bowel sounds, No organomegaly Ext:No significant edema Skin: No rashes, Integument intact Bilateral nephrostomy tubes CBC, BMP 05/17/18 06:40 05/17/18 06:40 Current Medications Generic Name Dose Route Start Last Admin Trade Name Freq PRN Reason Stop Dose Admin Acetaminophen 650 mg 05/16/18 23:35 05/16/18 23:10 Tylenol - PO 650 mg Q6H PRN Administration PAIN LEVEL 4-8 Aspirin 81 mg 05/15/18 10:00 05/17/18 09:27 Ecotrin - PO 81 mg DAILY [facility] Administration Docusate Sodium 300 mg 05/16/18 15:45 05/16/18 22:33 Colace - PO 300 mg HS LIT Administration Ferrous Sulfate 325 mg 05/15/18 10:00 05/17/18 09:27 Feosol - PO 325 mg DAILY [facility] Administration Finasteride 5 mg 05/15/18 10:00 05/17/18 09:27 Proscar - PO 5 mg DAILY [facility] Administration Heparin Sodium (Porcine) 5,000 unit 05/15/18 06:00 05/17/18 14:47 Heparin - SQ 5,000 unit TID [facility]IT Administration Sodium Chloride 1,000 mls @ 75 mls/hr 05/14/18 22:45 05/17/18 05:07 Normal Saline - IV 75 mls/hr ASDIR LIT Administration Piperacillin Sod/Tazobactam 50 mls @ 100 mls/hr 05/17/18 18:00 Sod 3.375 gm/ Dextrose IVPB Q8H-IV [facility] Protocol Insulin Aspart 1 vial 05/15/18 07:00 05/17/18 11:35 Novolog Vial Sliding Scale - SQ Not Given ACHS [facility] Protocol Metoprolol Succinate 100 mg 05/15/18 10:00 05/17/18 09:27 Toprol Xl - PO 100 mg DAILY [facility] Administration Multivitamins/Minerals 1 each 05/15/18 10:00 05/17/18 09:27 Theragran-M PO 1 each DAILY [facility] Administration Tamsulosin HCl 0.4 mg 05/15/18 08:30 05/17/18 08:47 Flomax - PO 0.4 mg DAILY@0830 [facility] Administration Zolpidem Tartrate 5 mg 05/14/18 23:45 05/16/18 23:05 Ambien - PO 5 mg HS PRN Administration INSOMNIA Impression : Metastatic bladder ca Anemai secondary to chronic disease, cheemotherapy Neutropenia secondary to infection, chemotherapy , ? meds Plan: transfuse 1 unit of packed cells Neupogen therapy.
[2018-05-17] MEDS ORDERED: DEXTROSE 5%-WATER - 50 ML IVPB ONE (17:50)
[2018-05-17] MEDS: PIPERACILLIN/TAZOB 3.375 GM 3.375 GM in DEXTROSE 5%-WATER - 50 ML IVPB SCH (17:50)
[2018-05-17] MEDS ORDERED: PIPERACILLIN/TAZOBACTAM 3.375 GM VIAL IVPB ONE (17:50)
[2018-05-17] MEDS ORDERED: TBO-FILGRASTIM 480 MCG/0.8 ML DISP.SYRIN SQ SCH ×2 (20:00→22:30)
[2018-05-17] MEDS: ZOLPIDEM TARTRATE 5 MG TABLET PO PRN (22:59)
[2018-05-17] MEDS: DOCUSATE SODIUM 100 MG CAPSULE (FP) PO SCH (22:59)
--- NOTE | 2018-05-17 23:40 | PN ---
Progress Note, Physician - Current Medication List Current Medications: Active Medications Acetaminophen (Tylenol -) 650 mg PO Q6H PRN PRN Reason: PAIN LEVEL 4-8 Last Admin: 05/16/18 23:10 Dose: 650 mg Aspirin (Ecotrin -) 81 mg PO DAILY [facility] Last Admin: 05/17/18 09:27 Dose: 81 mg Docusate Sodium (Colace -) 300 mg PO HS [facility] Last Admin: 05/17/18 22:59 Dose: 300 mg Ferrous Sulfate (Feosol -) 325 mg PO DAILY [facility] Last Admin: 05/17/18 09:27 Dose: 325 mg Finasteride (Proscar -) 5 mg PO DAILY [facility] Last Admin: 05/17/18 09:27 Dose: 5 mg Heparin Sodium (Porcine) (Heparin -) 5,000 unit SQ TID [facility] Last Admin: 05/17/18 22:59 Dose: 5,000 unit Sodium Chloride (Normal Saline -) 1,000 mls @ 75 mls/hr IV ASDIR [facility] Last Admin: 05/17/18 23:01 Dose: Not Given Piperacillin Sod/Tazobactam (Sod 3.375 gm/ Dextrose) 50 mls @ 100 mls/hr IVPB Q8H-IV [facility]; Protocol Last Admin: 05/17/18 17:50 Dose: 100 mls/hr Insulin Aspart (Novolog Vial Sliding Scale -) 1 vial SQ ACHS [facility]; Protocol Last Admin: 05/17/18 17:51 Dose: Not Given Metoprolol Succinate (Toprol Xl -) 100 mg PO DAILY [facility] Last Admin: 05/17/18 09:27 Dose: 100 mg Multivitamins/Minerals (Theragran-M) 1 each PO DAILY [facility] Last Admin: 05/17/18 09:27 Dose: 1 each Tamsulosin HCl (Flomax -) 0.4 mg PO DAILY@0830 [facility] Last Admin: 05/17/18 08:47 Dose: 0.4 mg Tbo-Filgrastim (Granix -) 480 mcg SQ DAILY [facility] Zolpidem Tartrate (Ambien -) 5 mg PO HS PRN PRN Reason: INSOMNIA Last Admin: 05/17/18 22:59 Dose: 5 mg - Objective Vital Signs: Vital Signs Temperature 98.2 F 05/17/18 15:40 Pulse Rate 81 05/17/18 15:40 Respiratory Rate 18 05/17/18 15:40 Blood Pressure 132/87 05/17/18 15:40 O2 Sat by Pulse Oximetry (%) 98 05/17/18 09:00 Labs: CBC, BMP 05/17/18 06:40 05/17/18 06:40
[2018-05-18] MEDS ORDERED: DEXTROSE 5%-WATER - 50 ML IVPB ONE ×4 (01:34→23:16)
[2018-05-18] MEDS ORDERED: PIPERACILLIN/TAZOBACTAM 3.375 GM VIAL IVPB ONE ×4 (01:34→23:16)
[2018-05-18] MEDS: PIPERACILLIN/TAZOB 3.375 GM 3.375 GM in DEXTROSE 5%-WATER - 50 ML IVPB SCH ×3 (02:07→18:32)
[2018-05-18] MEDS: INSULIN SLIDING SCALE (NOVOLOG) 1 VIAL SQ SCH ×4 (06:22→21:31)
[2018-05-18] MEDS: HEPARIN NA (PORCINE) 5,000 UNITS/ML 1ML VIAL SQ SCH ×3 (06:25→21:30)
[2018-05-18 07:31] LABS: BASO % 1.2 % (0-2.0); EOS % 1.9 % (0-4.5); HEMATOCRIT 24.5 % (35.4-49); HEMOGLOBIN 8.2 GM/dL (11.7-16.9); LYMPH % 50.2 % (8-40); MCH 21.6 pg (25.7-33.7); MCHC 33.4 g/dl (32.0-35.9); MEAN CELL VOLUME 64.6 fl (80-96); MEAN PLT VOLUME 8.8 fl (7.5-11.1); MONO % 8.7 % (3.8-10.2); PLATELET COUNT 74 K/MM3 (134-434); WHITE BLOOD COUNT 2.3 K/mm3 (4.0-10.0)
[2018-05-18 07:53] LABS: ALBUMIN 3.3 g/dl (3.4-5.0); ALK PHOS 261 U/L (45-117); ANION GAP 8 (8-16); BILIRUBIN,TOTAL 1.2 mg/dL (0.2-1.0); BLOOD UREA NITROGEN 10 mg/dL (7-18); CALCIUM 8.5 mg/dL (8.5-10.1); CHLORIDE 106 mmol/L (98-107); CO2 28 mmol/L (21-32); CREATININE 0.6 mg/dL (0.7-1.3); GLUCOSE,RANDOM 97 mg/dL (74-106); MAGNESIUM 2.1 mg/dL (1.8-2.4); POTASSIUM 4.1 mmol/L (3.5-5.1); SGOT/AST 42 U/L (15-37); SGPT/ALT 47 U/L (12-78); SODIUM 142 mmol/L (136-145); TOT PROT 6.3 g/dl (6.4-8.2)
[2018-05-18] MEDS: TAMSULOSIN HCL 0.4 MG CAP.ER.24H (FP) PO SCH (08:41)
[2018-05-18] MEDS ORDERED: PT OWN MED DRAWER 7, Y5N ONE (09:44)
[2018-05-18] MEDS: MULTIVITAMINS THER W-MINERALS COMBO TABLET (FP) PO SCH (09:46)
[2018-05-18] MEDS: TBO-FILGRASTIM 480 MCG/0.8 ML DISP.SYRIN SQ SCH (09:47)
[2018-05-18] MEDS: FINASTERIDE 5 MG TABLET (FP) PO SCH (09:47)
[2018-05-18] MEDS: ASPIRIN COATED 81 MG TABLET.EC PO SCH (09:47)
[2018-05-18] MEDS: FERROUS SO4 325 MG TABLET (FP) PO SCH (09:47)
[2018-05-18] MEDS ORDERED: TBO-FILGRASTIM 480 MCG/0.8 ML DISP.SYRIN SQ SCH (10:00)
[2018-05-18 10:21] LABS: ANISOCYTOSIS 3+; MACROCYTOSIS 0; PLATELET ESTIMATE DECREASED
--- NOTE | 2018-05-18 17:04 | PN ---
Progress Note, Physician History of Present Illness: stable no new issues - Current Medication List Current Medications: Active Medications Acetaminophen (Tylenol -) 650 mg PO Q6H PRN PRN Reason: PAIN LEVEL 4-8 Last Admin: 05/16/18 23:10 Dose: 650 mg Aspirin (Ecotrin -) 81 mg PO DAILY [facility] Last Admin: 05/18/18 09:47 Dose: 81 mg Docusate Sodium (Colace -) 300 mg PO HS [facility] Last Admin: 05/17/18 22:59 Dose: 300 mg Ferrous Sulfate (Feosol -) 325 mg PO DAILY [facility] Last Admin: 05/18/18 09:47 Dose: 325 mg Finasteride (Proscar -) 5 mg PO DAILY [facility] Last Admin: 05/18/18 09:47 Dose: 5 mg Heparin Sodium (Porcine) (Heparin -) 5,000 unit SQ TID [facility] Last Admin: 05/18/18 13:24 Dose: 5,000 unit Sodium Chloride (Normal Saline -) 1,000 mls @ 75 mls/hr IV ASDIR [facility] Last Admin: 05/17/18 23:01 Dose: Not Given Piperacillin Sod/Tazobactam (Sod 3.375 gm/ Dextrose) 50 mls @ 100 mls/hr IVPB Q8H-IV [facility]; Protocol Last Admin: 05/18/18 09:47 Dose: 100 mls/hr Insulin Aspart (Novolog Vial Sliding Scale -) 1 vial SQ ACHS [facility]; Protocol Last Admin: 05/18/18 11:52 Dose: Not Given Metoprolol Succinate (Toprol Xl -) 100 mg PO DAILY [facility] Last Admin: 05/18/18 09:47 Dose: 100 mg Multivitamins/Minerals (Theragran-M) 1 each PO DAILY [facility] Last Admin: 05/18/18 09:46 Dose: 1 each Tamsulosin HCl (Flomax -) 0.4 mg PO DAILY@0830 [facility] Last Admin: 05/18/18 08:41 Dose: 0.4 mg Tbo-Filgrastim (Granix -) 480 mcg SQ DAILY [facility] Last Admin: 05/18/18 09:47 Dose: 480 mcg - Objective Vital Signs: Vital Signs Temperature 98.2 F 05/18/18 14:39 Pulse Rate 71 05/18/18 14:39 Respiratory Rate 18 05/18/18 14:39 Blood Pressure 140/83 05/18/18 14:39 O2 Sat by Pulse Oximetry (%) 98 05/18/18 09:00 Constitutional: Yes: No Distress, Calm Cardiovascular: Yes: Regular Rate and Rhythm Respiratory: Yes: Regular, CTA Bilaterally Gastrointestinal: Yes: Normal Bowel Sounds, Soft Genitourinary: Yes: Other (b/l nephrostomy tubes present) Musculoskeletal: Yes: WNL Extremities: Yes: WNL Neurological: Yes: Alert, Oriented Psychiatric: Yes: Alert, Oriented Labs: CBC, BMP 05/18/18 07:00 05/18/18 07:00 Assessment/Plan 77yM with PMH HTN, NIDDM, BPH, bladder CA with mets to liver and bone, recent hospitalization 04/14-04/26 for urosepsis presented to the ED with fever. sepsis secondary to UTI HTN NIDDM BPH plan continue abx through tomorrow will change abx on tuesday rest as per the team and onco
--- NOTE | 2018-05-18 17:32 | PN ---
<Sanjeev Gao - Last Filed: 05/18/18 17:33> Physical Exam: SUBJECTIVE: Patient seen and examined Fells better. Denies fever and chills. Denies pain abdomen. OBJECTIVE: Vital Signs Period Temp Pulse Resp BP Sys/Benjamin Pulse Ox Last 24 Hr 98.2 F-98.3 F 66-71 18-20 139-155/83-95 98 GENERAL: The patient is awake, alert, and fully oriented, in no acute distress. EYES: conjunctiva clear. wear glasses ENT: oropharynx clear without exudates, moist mucous membranes, no oral thrush NECK: Trachea midline, full range of motion, supple. LUNGS: Breath sounds equal, clear to auscultation bilaterally, no wheezes, no crackles, no accessory muscle use. HEART: Regular rate and rhythm, S1, S2 ABDOMEN: Soft, nontender, nondistended, normoactive bowel sounds, no guarding, no rebound, b/l nephrostomy tube present draining urine. EXTREMITIES: warm, well-perfused, no edema. PSYCH: Normal mood, SKIN: Warm, dry, Laboratory Results - [facility] 05/18/18 05/18/18 05/18/18 06:03 07:00 07:00 WBC 2.3 L RBC 3.80 L Hgb 8.2 L Hct 24.5 L MCV 64.6 L MCH 21.6 L MCHC 33.4 RDW 25.0 H Plt Count 74 L MPV 8.8 Absolute Neuts (auto) 0.9 Neutrophils % 38.0 L Neutrophils % (Manual) 48.0 Band Neutrophils % 0.0 Lymphocytes % 50.2 H Lymphocytes % (Manual) 42.2 H Monocytes % 8.7 Monocytes % (Manual) 8 Eosinophils % 1.9 D Eosinophils % (Manual) 0.0 D Basophils % 1.2 Basophils % (Manual) 2.0 D Myelocytes % (Man) 0 Promyelocytes % (Man) 0 Blast Cells % (Manual) 0 Nucleated RBC % 3 H Metamyelocytes 0 Hypochromia 2+ Platelet Estimate Decreased Polychromasia 2+ Poikilocytosis 2+ Basophilic Stippling 1+ Anisocytosis 3+ Microcytosis 3+ Macrocytosis 0 Sodium 142 Potassium 4.1 Chloride 106 Carbon Dioxide 28 Anion Gap 8 BUN 10 Creatinine 0.6 L Creat Clearance w eGFR > 60 POC Glucometer 113 Random Glucose 97 Calcium 8.5 Magnesium 2.1 Total Bilirubin 1.2 H AST 42 H ALT 47 Alkaline Phosphatase 261 H D Total Protein 6.3 L Albumin 3.3 L Blood Type Antibody Screen Crossmatch 05/18/18 11:51 WBC RBC Hgb Hct MCV MCH MCHC RDW Plt Count MPV Absolute Neuts (auto) Neutrophils % Neutrophils % (Manual) Band Neutrophils % Lymphocytes % Lymphocytes % (Manual) Monocytes % Monocytes % (Manual) Eosinophils % Eosinophils % (Manual) Basophils % Basophils % (Manual) Myelocytes % (Man) Promyelocytes % (Man) Blast Cells % (Manual) Nucleated RBC % Metamyelocytes Hypochromia Platelet Estimate Polychromasia Poikilocytosis Basophilic Stippling Anisocytosis Microcytosis Macrocytosis Sodium Potassium Chloride Carbon Dioxide Anion Gap BUN Creatinine Creat Clearance w eGFR POC Glucometer 137 Random Glucose Calcium Magnesium Total Bilirubin AST ALT Alkaline Phosphatase Total Protein Albumin Blood Type Antibody Screen Crossmatch Active Medications Generic Name Dose Route Start Last Admin Trade Name Freq PRN Reason Stop Dose Admin Acetaminophen 650 mg 05/16/18 23:35 05/16/18 23:10 Tylenol - PO 650 mg Q6H PRN Administration PAIN LEVEL 4-8 Aspirin 81 mg 05/15/18 10:00 05/18/18 09:47 Ecotrin - PO 81 mg DAILY [facility] Administration Docusate Sodium 300 mg 05/16/18 15:45 05/17/18 22:59 Colace - PO 300 mg HS [facility] Administration Ferrous Sulfate 325 mg 05/15/18 10:00 05/18/18 09:47 Feosol - PO 325 mg DAILY [facility] Administration Finasteride 5 mg 05/15/18 10:00 05/18/18 09:47 Proscar - PO 5 mg DAILY [facility] Administration Heparin Sodium (Porcine) 5,000 unit 05/15/18 06:00 05/18/18 13:24 Heparin - SQ 5,000 unit TID [facility] Administration Sodium Chloride 1,000 mls @ 75 mls/hr 05/14/18 22:45 05/17/18 23:01 Normal Saline - IV Not Given ASDIR [facility] Piperacillin Sod/Tazobactam 50 mls @ 100 mls/hr 05/17/18 18:00 05/18/18 09:47 Sod 3.375 gm/ Dextrose IVPB 100 mls/hr Q8H-IV [facility] Administration Protocol Insulin Aspart 1 vial 05/15/18 07:00 05/18/18 11:52 Novolog Vial Sliding Scale - SQ Not Given ACHS [facility] Protocol Metoprolol Succinate 100 mg 05/15/18 10:00 05/18/18 09:47 Toprol Xl - PO 100 mg DAILY [facility] Administration Multivitamins/Minerals 1 each 05/15/18 10:00 05/18/18 09:46 Theragran-M PO 1 each DAILY [facility] Administration Tamsulosin HCl 0.4 mg 05/15/18 08:30 05/18/18 08:41 Flomax - PO 0.4 mg DAILY@0830 [facility] Administration Tbo-Filgrastim 480 mcg 05/18/18 10:00 05/18/18 09:47 Granix - SQ 480 mcg DAILY [facility] Administration ASSESSMENT/PLAN: Metastatic bladder ca Anemai secondary to chronic disease, cheemotherapy Neutropenia secondary to infection, chemotherapy , ? meds UTI Plan: Got one unit of blood yesterday. Hb 8.2 Neupogen given toady. Follow CBC tomorrw Antibiotic as per ID Visit type - Emergency Visit Emergency Visit: Yes ED Registration Date: 05/14/18 Care time: The patient presented to the Emergency Department on the above date and was hospitalized for further evaluation of their emergent condition. - New Patient This patient is new to me today: No - Critical Care Critical Care patient: No <Pinyk Mathis - Last Filed: 05/18/18 22:57> Physical Exam: SUBJECTIVE: Patient seen and examined OBJECTIVE: Vital Signs Period Temp Pulse Resp BP Sys/Benjamin Pulse Ox Last 24 Hr 98.2 F-98.7 F 66-79 18-20 135-155/82-95 95-98 GENERAL: The patient is awake, alert, and fully oriented, in no acute distress. HEAD: Normal with no signs of trauma. EYES: PERRL, extraocular movements intact, sclera anicteric, conjunctiva clear. No ptosis. ENT: Ears normal, nares patent, oropharynx clear without exudates, moist mucous membranes. NECK: Trachea midline, full range of motion, supple. LUNGS: Breath sounds equal, clear to auscultation bilaterally, no wheezes, no crackles, no accessory muscle use. HEART: Regular rate and rhythm, S1, S2 without murmur, rub or gallop. ABDOMEN: Soft, nontender, nondistended, normoactive bowel sounds, no guarding, no rebound, no hepatosplenomegaly, no masses. EXTREMITIES: 2+ pulses, warm, well-perfused, no edema. NEUROLOGICAL: Cranial nerves II through XII grossly intact. Normal speech, gait not observed. PSYCH: Normal mood, normal affect. SKIN: Warm, dry, normal turgor, no rashes or lesions noted Laboratory Results - last 24 hr 05/17/18 05/18/18 05/18/18 22:55 06:03 07:00 WBC 2.3 L RBC 3.80 L Hgb 8.2 L Hct 24.5 L MCV 64.6 L MCH 21.6 L MCHC 33.4 RDW 25.0 H Plt Count 74 L MPV 8.8 Absolute Neuts (auto) 0.9 Neutrophils % 38.0 L Neutrophils % (Manual) 48.0 Band Neutrophils % 0.0 Lymphocytes % 50.2 H Lymphocytes % (Manual) 42.2 H Monocytes % 8.7 Monocytes % (Manual) 8 Eosinophils % 1.9 D Eosinophils % (Manual) 0.0 D Basophils % 1.2 Basophils % (Manual) 2.0 D Myelocytes % (Man) 0 Promyelocytes % (Man) 0 Blast Cells % (Manual) 0 Nucleated RBC % 3 H Metamyelocytes 0 Hypochromia 2+ Platelet Estimate Decreased Polychromasia 2+ Poikilocytosis 2+ Basophilic Stippling 1+ Anisocytosis 3+ Microcytosis 3+ Macrocytosis 0 Sodium Potassium Chloride Carbon Dioxide Anion Gap BUN Creatinine Creat Clearance w eGFR POC Glucometer 158 113 Random Glucose Calcium Magnesium Total Bilirubin AST ALT Alkaline Phosphatase Total Protein Albumin 05/18/18 05/18/18 05/18/18 07:00 11:51 17:39 WBC RBC Hgb Hct MCV MCH MCHC RDW Plt Count MPV Absolute Neuts (auto) Neutrophils % Neutrophils % (Manual) Band Neutrophils % Lymphocytes % Lymphocytes % (Manual) Monocytes % Monocytes % (Manual) Eosinophils % Eosinophils % (Manual) Basophils % Basophils % (Manual) Myelocytes % (Man) Promyelocytes % (Man) Blast Cells % (Manual) Nucleated RBC % Metamyelocytes Hypochromia Platelet Estimate Polychromasia Poikilocytosis Basophilic Stippling Anisocytosis Microcytosis Macrocytosis Sodium 142 Potassium 4.1 Chloride 106 Carbon Dioxide 28 Anion Gap 8 BUN 10 Creatinine 0.6 L Creat Clearance w eGFR > 60 POC Glucometer 137 119 Random Glucose 97 Calcium 8.5 Magnesium 2.1 Total Bilirubin 1.2 H AST 42 H ALT 47 Alkaline Phosphatase 261 H D Total Protein 6.3 L Albumin 3.3 L 05/18/18 21:29 WBC RBC Hgb Hct MCV MCH MCHC RDW Plt Count MPV Absolute Neuts (auto) Neutrophils % Neutrophils % (Manual) Band Neutrophils % Lymphocytes % Lymphocytes % (Manual) Monocytes % Monocytes % (Manual) Eosinophils % Eosinophils % (Manual) Basophils % Basophils % (Manual) Myelocytes % (Man) Promyelocytes % (Man) Blast Cells % (Manual) Nucleated RBC % Metamyelocytes Hypochromia Platelet Estimate Polychromasia Poikilocytosis Basophilic Stippling Anisocytosis Microcytosis Macrocytosis Sodium Potassium Chloride Carbon Dioxide Anion Gap BUN Creatinine Creat Clearance w eGFR POC Glucometer 149 Random Glucose Calcium Magnesium Total Bilirubin AST ALT Alkaline Phosphatase Total Protein Albumin Active Medications Generic Name Dose Route Start Last Admin Trade Name Freq PRN Reason Stop Dose Admin Acetaminophen 650 mg 05/16/18 23:35 05/16/18 23:10 Tylenol - PO 650 mg Q6H PRN Administration PAIN LEVEL 4-8 Aspirin 81 mg 05/15/18 10:00 05/18/18 09:47 Ecotrin - PO 81 mg DAILY [facility] Administration Docusate Sodium 300 mg 05/16/18 15:45 05/18/18 21:27 Colace - PO 300 mg HS [facility] Administration Ferrous Sulfate 325 mg 05/15/18 10:00 05/18/18 09:47 Feosol - PO 325 mg DAILY [facility] Administration Finasteride 5 mg 05/15/18 10:00 05/18/18 09:47 Proscar - PO 5 mg DAILY [facility] Administration Heparin Sodium (Porcine) 5,000 unit 05/15/18 06:00 05/18/18 21:30 Heparin - SQ 5,000 unit TID [facility] Administration Piperacillin Sod/Tazobactam 50 mls @ 100 mls/hr 05/17/18 18:00 05/18/18 18:32 Sod 3.375 gm/ Dextrose IVPB 100 mls/hr Q8H-IV [facility] Administration Protocol Insulin Aspart 1 vial 05/15/18 07:00 05/18/18 21:31 Novolog Vial Sliding Scale - SQ Not Given ACHS [facility] Protocol Metoprolol Succinate 100 mg 05/15/18 10:00 05/18/18 09:47 Toprol Xl - PO 100 mg DAILY [facility] Administration Multivitamins/Minerals 1 each 05/15/18 10:00 05/18/18 09:46 Theragran-M PO 1 each DAILY [facility] Administration Tamsulosin HCl 0.4 mg 05/15/18 08:30 05/18/18 08:41 Flomax - PO 0.4 mg DAILY@0830 [facility] Administration Tbo-Filgrastim 480 mcg 05/18/18 10:00 05/18/18 09:47 Granix - SQ 480 mcg DAILY [facility] Administration ASSESSMENT/PLAN: Patient seen and examined with resident C2 D15 gem/carbo recurrent UTIS s/p 1 unit PRBCs Neupogen ID follow up due for C3 on 05/25/18
[2018-05-18] MEDS: DOCUSATE SODIUM 100 MG CAPSULE (FP) PO SCH (21:27)
--- NOTE | 2018-05-18 22:54 | PN ---
Progress Note, Physician History of Present Illness: No new complaints - Current Medication List Current Medications: Active Medications Acetaminophen (Tylenol -) 650 mg PO Q6H PRN PRN Reason: PAIN LEVEL 4-8 Last Admin: 05/16/18 23:10 Dose: 650 mg Aspirin (Ecotrin -) 81 mg PO DAILY [facility] Last Admin: 05/18/18 09:47 Dose: 81 mg Docusate Sodium (Colace -) 300 mg PO HS [facility] Last Admin: 05/18/18 21:27 Dose: 300 mg Ferrous Sulfate (Feosol -) 325 mg PO DAILY [facility] Last Admin: 05/18/18 09:47 Dose: 325 mg Finasteride (Proscar -) 5 mg PO DAILY [facility] Last Admin: 05/18/18 09:47 Dose: 5 mg Heparin Sodium (Porcine) (Heparin -) 5,000 unit SQ TID [facility] Last Admin: 05/18/18 21:30 Dose: 5,000 unit Piperacillin Sod/Tazobactam (Sod 3.375 gm/ Dextrose) 50 mls @ 100 mls/hr IVPB Q8H-IV [facility]; Protocol Last Admin: 05/18/18 18:32 Dose: 100 mls/hr Insulin Aspart (Novolog Vial Sliding Scale -) 1 vial SQ ACHS [facility]; Protocol Last Admin: 05/18/18 21:31 Dose: Not Given Metoprolol Succinate (Toprol Xl -) 100 mg PO DAILY [facility] Last Admin: 05/18/18 09:47 Dose: 100 mg Multivitamins/Minerals (Theragran-M) 1 each PO DAILY [facility] Last Admin: 05/18/18 09:46 Dose: 1 each Tamsulosin HCl (Flomax -) 0.4 mg PO DAILY@0830 [facility] Last Admin: 05/18/18 08:41 Dose: 0.4 mg Tbo-Filgrastim (Granix -) 480 mcg SQ DAILY [facility] Last Admin: 05/18/18 09:47 Dose: 480 mcg - Objective Vital Signs: Vital Signs Temperature 98.7 F 05/18/18 22:00 Pulse Rate 79 05/18/18 22:00 Respiratory Rate 18 05/18/18 22:00 Blood Pressure 135/84 05/18/18 22:00 O2 Sat by Pulse Oximetry (%) 95 05/18/18 21:00 Cardiovascular: Yes: WNL, Regular Rate and Rhythm Respiratory: Yes: WNL, Regular, CTA Bilaterally Gastrointestinal: Yes: WNL, Normal Bowel Sounds, Soft Labs: CBC, BMP 05/18/18 07:00 05/18/18 07:00 Problem List - Problems (1) Sepsis Assessment/Plan: Due to UTI Cont IV antibxs until Sat Urine culture (+) for Serratia/Enterococcus DC planning for sat Code(s): A41.9 - SEPSIS, UNSPECIFIED ORGANISM (2) Pancytopenia Assessment/Plan: Pt transfused 1 unit RBC's Follow H/H Pt on neupogen Follow WBC Code(s): D61.818 - OTHER PANCYTOPENIA (3) BPH (benign prostatic hyperplasia) Assessment/Plan: Cont flomax Code(s): N40.0 - BENIGN PROSTATIC HYPERPLASIA WITHOUT LOWER URINRY TRACT SYMP (4) Bladder cancer Assessment/Plan: As per onco Code(s): C67.9 - MALIGNANT NEOPLASM OF BLADDER, UNSPECIFIED (5) Hypertension Assessment/Plan: BP is stable Cont antihypertensives Code(s): I10 - ESSENTIAL (PRIMARY) HYPERTENSION Qualifiers: Hypertension type: other secondary hypertension Qualified Code(s): I15.8 - Other secondary hypertension
[2018-05-18] MEDS: ACETAMINOPHEN 325 MG TABLET (FP) PO PRN (23:20)
[2018-05-18] MEDS: ZOLPIDEM TARTRATE 5 MG TABLET PO PRN (23:34)
[2018-05-19] MEDS: PIPERACILLIN/TAZOB 3.375 GM 3.375 GM in DEXTROSE 5%-WATER - 50 ML IVPB SCH ×3 (02:35→18:46)
[2018-05-19] MEDS: INSULIN SLIDING SCALE (NOVOLOG) 1 VIAL SQ SCH ×4 (06:16→21:42)
[2018-05-19 07:14] LABS: BASO % 0.2 % (0-2.0); EOS % 0.5 % (0-4.5); HEMATOCRIT 26.8 % (35.4-49); HEMOGLOBIN 8.8 GM/dL (11.7-16.9); LYMPH % 6.5 % (8-40); MCH 21.6 pg (25.7-33.7); MCHC 32.9 g/dl (32.0-35.9); MEAN CELL VOLUME 65.6 fl (80-96); MONO % 2.4 % (3.8-10.2); NEUT % 90.4 % (42.8-82.8); PLATELET COUNT 85 K/MM3 (134-434); RBC 4.08 M/mm3 (4.00-5.60); RDW 25.5 % (11.9-15.9); WHITE BLOOD COUNT 22.1 K/mm3 (4.0-10.0)
[2018-05-19 07:55] LABS: CHLORIDE 103 mmol/L (98-107); POTASSIUM 4.2 mmol/L (3.5-5.1); SODIUM 139 mmol/L (136-145)
[2018-05-19 08:06] LABS: ALBUMIN 3.5 g/dl (3.4-5.0); ALK PHOS 276 U/L (45-117); ANION GAP 7 (8-16); BLOOD UREA NITROGEN 11 mg/dL (7-18); CO2 29 mmol/L (21-32); CREATININE 0.7 mg/dL (0.7-1.3); GLUCOSE,RANDOM 117 mg/dL (74-106); SGOT/AST 43 U/L (15-37); SGPT/ALT 54 U/L (12-78); TOT PROT 6.8 g/dl (6.4-8.2)
[2018-05-19 09:35] LABS: ANISOCYTOSIS 2+; PLATELET ESTIMATE DECREASED; TEAR DROP CELLS 1+
[2018-05-19] MEDS ORDERED: DEXTROSE 5%-WATER - 50 ML IVPB ONE ×3 (09:57→23:24)
[2018-05-19] MEDS ORDERED: PIPERACILLIN/TAZOBACTAM 3.375 GM VIAL IVPB ONE ×3 (09:57→23:24)
[2018-05-19] MEDS: MULTIVITAMINS THER W-MINERALS COMBO TABLET (FP) PO SCH (10:07)
[2018-05-19] MEDS: ASPIRIN COATED 81 MG TABLET.EC PO SCH (10:08)
[2018-05-19] MEDS: FINASTERIDE 5 MG TABLET (FP) PO SCH (10:08)
[2018-05-19] MEDS: TAMSULOSIN HCL 0.4 MG CAP.ER.24H (FP) PO SCH (10:08)
[2018-05-19] MEDS: FERROUS SO4 325 MG TABLET (FP) PO SCH (10:08)
[2018-05-19] MEDS: TBO-FILGRASTIM 480 MCG/0.8 ML DISP.SYRIN SQ SCH (10:32)
--- NOTE | 2018-05-19 11:11 | PN ---
Progress Note, Physician History of Present Illness: patient doing better no complaints no fevers - Current Medication List Current Medications: Active Medications Acetaminophen (Tylenol -) 650 mg PO Q6H PRN PRN Reason: PAIN LEVEL 4-8 Last Admin: 05/18/18 23:20 Dose: 650 mg Aspirin (Ecotrin -) 81 mg PO DAILY [facility] [place] Last Admin: 05/19/18 10:08 Dose: 81 mg Docusate Sodium (Colace -) 300 mg PO HS [facility] [place] Last Admin: 05/18/18 21:27 Dose: 300 mg Ferrous Sulfate (Feosol -) 325 mg PO DAILY [facility] [place] Last Admin: 05/19/18 10:08 Dose: 325 mg Finasteride (Proscar -) 5 mg PO DAILY [facility] [place] Last Admin: 05/19/18 10:08 Dose: 5 mg Piperacillin Sod/Tazobactam (Sod 3.375 gm/ Dextrose) 50 mls @ 100 mls/hr IVPB Q8H-IV [facility] [place]; Protocol Last Admin: 05/19/18 10:15 Dose: 100 mls/hr Insulin Aspart (Novolog Vial Sliding Scale -) 1 vial SQ ACHS [facility] [place]; Protocol Last Admin: 05/19/18 06:16 Dose: Not Given Metoprolol Succinate (Toprol Xl -) 100 mg PO DAILY [facility] [place] Last Admin: 05/19/18 10:08 Dose: 100 mg Multivitamins/Minerals (Theragran-M) 1 each PO DAILY [facility] [place] Last Admin: 05/19/18 10:07 Dose: 1 each Tamsulosin HCl (Flomax -) 0.4 mg PO DAILY@0830 [facility] [place] Last Admin: 05/19/18 10:08 Dose: 0.4 mg Tbo-Filgrastim (Granix -) 480 mcg SQ DAILY [facility] [place] Last Admin: 05/19/18 10:32 Dose: Not Given Zolpidem Tartrate (Ambien -) 5 mg PO HS PRN PRN Reason: INSOMNIA Last Admin: 05/18/18 23:34 Dose: 5 mg - Objective Vital Signs: Vital Signs Temperature 97.5 F L 05/19/18 06:38 Pulse Rate 62 05/19/18 06:38 Respiratory Rate 18 05/19/18 06:38 Blood Pressure 149/99 05/19/18 06:38 O2 Sat by Pulse Oximetry (%) 100 05/19/18 09:00 Constitutional: Yes: No Distress, Calm Cardiovascular: Yes: Regular Rate and Rhythm Respiratory: Yes: Regular, CTA Bilaterally Gastrointestinal: Yes: Normal Bowel Sounds, Soft Genitourinary: Yes: Other (b/l nephrostomy tubes in place) Musculoskeletal: Yes: WNL Extremities: Yes: WNL Neurological: Yes: Alert, Oriented Psychiatric: Yes: Alert, Oriented Labs: CBC, BMP 05/19/18 06:30 05/19/18 06:30 Assessment/Plan 77yM with PMH HTN, NIDDM, BPH, bladder CA with mets to liver and bone, recent hospitalization 04/14-04/26 for urosepsis presented to the ED with fever. sepsis secondary to UTI HTN NIDDM BPH plan continue abx through tomorrow morning can change abx to 1 oral ampicillin 500 mg every 6 hourly for another 7 days 2 also levaquin 750 mg daily for 7 days patient should get the morning/afternoon dose before he leaves rest as per the team
--- NOTE | 2018-05-19 11:55 | PN ---
Progress Note (short form) - Note Progress Note: Patient seen and examined Clinically improved S/P Transfusion of packed cells and neupogen Last Vital Signs Temp Pulse Resp BP Pulse Ox 97.5 F L 62 18 149/99 100 05/19/18 06:38 05/19/18 06:38 05/19/18 06:38 05/19/18 06:38 05/19/18 09:00 HEENT: [place], EOM Intact Oropharynx: No thrush, No mucositis Cor: RSR, No murmurs, No gallops Lungs: Clear to P&A Abd: Soft, Normal bowel sounds, No organomegaly, nephrostomy tubes Ext:No significant edema Skin: No rashes, Integument intact CBC, BMP 05/19/18 06:30 05/19/18 06:30 Current Medications Generic Name Dose Route Start Last Admin Trade Name Freq PRN Reason Stop Dose Admin Acetaminophen 650 mg 05/16/18 23:35 05/18/18 23:20 Tylenol - PO 650 mg Q6H PRN Administration PAIN LEVEL 4-8 Aspirin 81 mg 05/15/18 10:00 05/19/18 10:08 Ecotrin - PO 81 mg DAILY [facility] Administration Docusate Sodium 300 mg 05/16/18 15:45 05/18/18 21:27 Colace - PO 300 mg HS [facility] Administration Ferrous Sulfate 325 mg 05/15/18 10:00 05/19/18 10:08 Feosol - PO 325 mg DAILY [facility] Administration Finasteride 5 mg 05/15/18 10:00 05/19/18 10:08 Proscar - PO 5 mg DAILY [facility] Administration Piperacillin Sod/Tazobactam 50 mls @ 100 mls/hr 05/17/18 18:00 05/19/18 10:15 Sod 3.375 gm/ Dextrose IVPB 100 mls/hr Q8H-IV [facility] Administration Protocol Insulin Aspart 1 vial 05/15/18 07:00 05/19/18 06:16 Novolog Vial Sliding Scale - SQ Not Given ACHS [facility] Protocol Metoprolol Succinate 100 mg 05/15/18 10:00 05/19/18 10:08 Toprol Xl - PO 100 mg DAILY [facility] Administration Multivitamins/Minerals 1 each 05/15/18 10:00 05/19/18 10:07 Theragran-M PO 1 each DAILY [facility] Administration Tamsulosin HCl 0.4 mg 05/15/18 08:30 05/19/18 10:08 Flomax - PO 0.4 mg DAILY@0830 [facility] Administration Tbo-Filgrastim 480 mcg 05/18/18 10:00 05/19/18 10:32 Granix - SQ Not Given DAILY [facility] Zolpidem Tartrate 5 mg 05/18/18 23:23 05/18/18 23:34 Ambien - PO 5 mg HS PRN Administration INSOMNIA Impression: Metastatic bladder ca Anemia- s/p transfusion Neutropenia-s/p neupogen (granix) Serratia/enterobacter urosepsis- I.D. noted For discharge after antibiotics on 84/ and continuation of Ab Chemotherapy in future.
--- NOTE | 2018-05-19 19:24 | PN ---
Progress Note, Physician - Current Medication List Current Medications: Active Medications Acetaminophen (Tylenol -) 650 mg PO Q6H PRN PRN Reason: PAIN LEVEL 4-8 Last Admin: 05/18/18 23:20 Dose: 650 mg Aspirin (Ecotrin -) 81 mg PO DAILY [facility] Last Admin: 05/19/18 10:08 Dose: 81 mg Docusate Sodium (Colace -) 300 mg PO HS [facility] Last Admin: 05/18/18 21:27 Dose: 300 mg Ferrous Sulfate (Feosol -) 325 mg PO DAILY [facility] Last Admin: 05/19/18 10:08 Dose: 325 mg Finasteride (Proscar -) 5 mg PO DAILY [facility] Last Admin: 05/19/18 10:08 Dose: 5 mg Piperacillin Sod/Tazobactam (Sod 3.375 gm/ Dextrose) 50 mls @ 100 mls/hr IVPB Q8H-IV [facility]; Protocol Last Admin: 05/19/18 18:46 Dose: 100 mls/hr Insulin Aspart (Novolog Vial Sliding Scale -) 1 vial SQ ACHS [facility]; Protocol Last Admin: 05/19/18 18:09 Dose: 2 units Metoprolol Succinate (Toprol Xl -) 100 mg PO DAILY [facility] Last Admin: 05/19/18 10:08 Dose: 100 mg Multivitamins/Minerals (Theragran-M) 1 each PO DAILY [facility] Last Admin: 05/19/18 10:07 Dose: 1 each Tamsulosin HCl (Flomax -) 0.4 mg PO DAILY@0830 [facility] Last Admin: 05/19/18 10:08 Dose: 0.4 mg Tbo-Filgrastim (Granix -) 480 mcg SQ DAILY [facility] Last Admin: 05/19/18 10:32 Dose: Not Given Zolpidem Tartrate (Ambien -) 5 mg PO HS PRN PRN Reason: INSOMNIA Last Admin: 05/18/18 23:34 Dose: 5 mg - Objective Vital Signs: Vital Signs Temperature 98.1 F 05/19/18 17:50 Pulse Rate 66 05/19/18 17:50 Respiratory Rate 20 05/19/18 17:50 Blood Pressure 153/91 05/19/18 17:50 O2 Sat by Pulse Oximetry (%) 100 05/19/18 09:00 Labs: CBC, BMP 05/19/18 06:30 05/19/18 06:30 Problem List - Problems (1) Sepsis Code(s): A41.9 - SEPSIS, UNSPECIFIED ORGANISM (2) Pancytopenia Code(s): D61.818 - OTHER PANCYTOPENIA (3) BPH (benign prostatic hyperplasia) Code(s): N40.0 - BENIGN PROSTATIC HYPERPLASIA WITHOUT LOWER URINRY TRACT SYMP (4) Bladder cancer Code(s): C67.9 - MALIGNANT NEOPLASM OF BLADDER, UNSPECIFIED (5) Hypertension Code(s): I10 - ESSENTIAL (PRIMARY) HYPERTENSION Qualifiers: Hypertension type: other secondary hypertension Qualified Code(s): I15.8 - Other secondary hypertension
[2018-05-19] MEDS: DOCUSATE SODIUM 100 MG CAPSULE (FP) PO SCH (21:40)
[2018-05-19] MEDS: ACETAMINOPHEN 325 MG TABLET (FP) PO PRN (23:27)
[2018-05-19] MEDS: ZOLPIDEM TARTRATE 5 MG TABLET PO PRN (23:27)
[2018-05-20] MEDS: PIPERACILLIN/TAZOB 3.375 GM 3.375 GM in DEXTROSE 5%-WATER - 50 ML IVPB SCH ×2 (01:29→09:10)
[2018-05-20] MEDS: INSULIN SLIDING SCALE (NOVOLOG) 1 VIAL SQ SCH ×2 (06:07→12:18)
[2018-05-20] MEDS: TAMSULOSIN HCL 0.4 MG CAP.ER.24H (FP) PO SCH (08:35)
[2018-05-20] MEDS ORDERED: PIPERACILLIN/TAZOBACTAM 3.375 GM VIAL IVPB ONE (09:01)
[2018-05-20] MEDS ORDERED: DEXTROSE 5%-WATER - 50 ML IVPB ONE (09:01)
[2018-05-20] MEDS: FINASTERIDE 5 MG TABLET (FP) PO SCH (09:10)
[2018-05-20] MEDS: ASPIRIN COATED 81 MG TABLET.EC PO SCH (09:10)
[2018-05-20] MEDS: FERROUS SO4 325 MG TABLET (FP) PO SCH (09:10)
[2018-05-20] MEDS: MULTIVITAMINS THER W-MINERALS COMBO TABLET (FP) PO SCH (09:10)
--- NOTE | 2018-05-20 10:22 | PN ---
Progress Note, Physician History of Present Illness: Infectious Disease progress note: Pt is alert, afebrile, without any complaints. WBC elevated to 22K yesterday post dose of neupogen the day prior. Pt denies fever/chills, diarrhea/abd discomfort, SOB/chest pain. - Current Medication List Current Medications: Active Medications Acetaminophen (Tylenol -) 650 mg PO Q6H PRN PRN Reason: PAIN LEVEL 4-8 Last Admin: 05/19/18 23:27 Dose: 650 mg Aspirin (Ecotrin -) 81 mg PO DAILY [facility] Last Admin: 05/20/18 09:10 Dose: 81 mg Docusate Sodium (Colace -) 300 mg PO HS [facility] Last Admin: 05/19/18 21:40 Dose: 300 mg Ferrous Sulfate (Feosol -) 325 mg PO DAILY [facility] Last Admin: 05/20/18 09:10 Dose: 325 mg Finasteride (Proscar -) 5 mg PO DAILY [facility] Last Admin: 05/20/18 09:10 Dose: 5 mg Piperacillin Sod/Tazobactam (Sod 3.375 gm/ Dextrose) 50 mls @ 100 mls/hr IVPB Q8H-IV [facility]; Protocol Last Admin: 05/20/18 09:10 Dose: 100 mls/hr Insulin Aspart (Novolog Vial Sliding Scale -) 1 vial SQ ACHS [facility]; Protocol Last Admin: 05/20/18 06:07 Dose: Not Given Metoprolol Succinate (Toprol Xl -) 100 mg PO DAILY [facility] Last Admin: 05/20/18 09:10 Dose: 100 mg Multivitamins/Minerals (Theragran-M) 1 each PO DAILY [facility] Last Admin: 05/20/18 09:10 Dose: 1 each Tamsulosin HCl (Flomax -) 0.4 mg PO DAILY@0830 [facility] Last Admin: 05/20/18 08:35 Dose: 0.4 mg Zolpidem Tartrate (Ambien -) 5 mg PO HS PRN PRN Reason: INSOMNIA Last Admin: 05/19/18 23:27 Dose: 5 mg - Objective Vital Signs: Vital Signs Temperature 97.9 F 05/20/18 08:32 Pulse Rate 54 L 05/20/18 08:32 Respiratory Rate 20 05/20/18 08:32 Blood Pressure 140/93 05/20/18 08:32 O2 Sat by Pulse Oximetry (%) 100 05/19/18 21:00 Constitutional: Yes: No Distress, Calm Neck: Yes: Supple Cardiovascular: Yes: Regular Rate and Rhythm Respiratory: Yes: Regular Gastrointestinal: Yes: Normal Bowel Sounds, Soft Genitourinary: Yes: Other (b/l nephrostomy draining clear, yellow urine) Neurological: Yes: Alert, Oriented Labs: CBC, BMP 05/19/18 06:30 05/19/18 06:30 Microbiology 05/14/18 20:45 Blood - Peripheral Venous Blood Culture - Final NO GROWTH AFTER 5 DAYS INCUBATION 05/14/18 20:45 Blood - Peripheral Venous Blood Culture - Final NO GROWTH AFTER 5 DAYS INCUBATION 05/14/18 21:05 Urine - Urine Nephrostomy Tube Left Urine Culture - Final Serratia Marcescens Enterococcus Faecalis 05/14/18 21:35 Urine - Urine Nephrostomy Tube Right Urine Culture - Final Serratia Marcescens Enterococcus Faecalis Problem List - Problems (1) Fever Code(s): R50.9 - FEVER, UNSPECIFIED Qualifiers: Fever type: unspecified Qualified Code(s): R50.9 - Fever, unspecified (2) Malignant neoplasm Code(s): C80.1 - MALIGNANT (PRIMARY) NEOPLASM, UNSPECIFIED (3) UTI (urinary tract infection) Code(s): N39.0 - URINARY TRACT INFECTION, SITE NOT SPECIFIED Qualifiers: Urinary tract infection type: site unspecified Hematuria presence: with hematuria Qualified Code(s): N39.0 - Urinary tract infection, site not specified; R31.9 - Hematuria, unspecified (4) KARTHIKEYAN (acute kidney injury) Code(s): N17.9 - ACUTE KIDNEY FAILURE, UNSPECIFIED (5) Anemia Code(s): D64.9 - ANEMIA, UNSPECIFIED (6) BPH (benign prostatic hyperplasia) Code(s): N40.0 - BENIGN PROSTATIC HYPERPLASIA WITHOUT LOWER URINRY TRACT SYMP (7) Bladder cancer Code(s): C67.9 - MALIGNANT NEOPLASM OF BLADDER, UNSPECIFIED (8) Diabetes Code(s): E11.9 - TYPE 2 DIABETES MELLITUS WITHOUT COMPLICATIONS Assessment/Plan 77 y.o. male with PMH of metastatic bladder CA on chemotherapy, b/l nephrostomy , BPH, NIDDM, HTN admitted with fever 102F on admission. Serratia/Enterococcal UTI Leukocytosis - likely due to neupogen Anemia - s/p transfusion - pt afebrile, appears clinically stable - if d/c home on ampicillin 500 mg po Q6h and levaquin 750 mg po daily x one week each please f/u wbc/temps prior to next chemotherapy session - f/u with PMD and oncologist message left with Dr. Andrade to discuss plan
[2018-05-20 12:27] VITALS: BP 146/95; PULSE 61; TEMP 98.1
--- NOTE | 2018-05-25 14:45 | DS ---
Physical Examination Vital Signs: Vital Signs Temperature 98.1 F 05/20/18 10:00 Pulse Rate 61 05/20/18 10:00 Respiratory Rate 18 05/20/18 10:00 Blood Pressure 146/95 05/20/18 10:00 O2 Sat by Pulse Oximetry (%) 100 05/20/18 09:00 Labs: CBC, BMP 05/19/18 06:30 05/19/18 06:30 Discharge Summary Reason For Visit: FEVER, MALIGNANT NEOPLASM Condition: Good - Instructions Diet, Activity, Other Instructions: 2 gram sodium diet See Dr Andrea Delgadillo in 1 week Referrals: Andrea Delgadillo MD [Primary Care Provider] - Disposition: HOME - Home Medications Comprehensive Discharge Medication List: Ambulatory Orders Metformin HCl [Glucophage] 1,000 mg PO BID 06/01/15 Finasteride 5 mg PO DAILY 08/30/17 Aspirin Coated [Ecotrin -] 81 mg PO DAILY 03/03/18 Silodosin [Rapaflo] 8 mg PO HS 03/03/18 Zolpidem Tartrate [Ambien] 5 mg PO HS 03/03/18 Ferrous Sulfate [Iron] 325 mg PO DAILY 03/17/18 Metoclopramide HCl 5 mg PO BID PRN 03/30/18 Multivit-Mins/Iron/Folic/Lycop [Centrum Men's Tablet] 1 each PO DAILY 04/12/18 Metoprolol Succinate [Toprol XL -] 100 mg PO DAILY 05/14/18 Amoxicillin - [Amoxicillin 500mg Capsule -] 500 mg PO QID #28 capsule 05/20/18 Docusate Sodium [Colace -] 300 mg PO HS capsule 05/20/18 Levofloxacin [Levaquin] 750 mg PO DAILY #7 tablet 05/20/18 Zolpidem Tartrate [Ambien] 5 mg PO HS PRN #30 tablet MDD 1 05/20/18
== END 2018-05-20 12:34 | disposition home or self-care (01) | DRG 872 ==
LOC: JER 18:18 → JERBED 20:59 → J8W 05-15 00:51
PROVIDERS: ADMIT Internal Medicine; ATTEND Internal Medicine
DX: A41.81 Sepsis due to Enterococcus (principal); C78.7 Secondary malignant neoplasm of liver and intrahepatic bile duct; C79.51 Secondary malignant neoplasm of bone; D61.818 Other pancytopenia; N17.9 Acute kidney failure, unspecified; C67.9 Malignant neoplasm of bladder, unspecified; E11.9 Type 2 diabetes mellitus without complications; N40.0 Benign prostatic hyperplasia without lower urinary tract symptoms; I10 Essential (primary) hypertension; R00.0 Tachycardia, unspecified; D63.8 Anemia in other chronic diseases classified elsewhere; D70.9 Neutropenia, unspecified; D69.6 Thrombocytopenia, unspecified; Z87.891 Personal history of nicotine dependence
CPT/HCPCS: 36415; 36430; 36511; 71046-TC-FY; 76775-TC; 80048; 80053; 80076; 81003; 81015; 82962; 83735; 84100; 85025; 86850; 86900; 86901; 86922; 87040; 87086; 87186; 93005; 93010; 96361; 96375; 96413; 99284-25; J0131; J1100; J1447; J1644; J2469; J7030; P9038; P9058

== ENCOUNTER 2018-05-25 07:17 | Day surgery (SDC) | payer OTHER ==
[~2018-05-25 07:17] MED LIST changes: -Methylnaltrexone Bromide 12 MG/0.6 ML KIT SQ SCH; +TBO-FILGRASTIM 480 MCG/0.8 ML DISP.SYRIN SQ ONE
[2018-05-25 09:49] LABS: BASO % 0.7 % (0-2.0); EOS % 1.6 % (0-4.5); HEMATOCRIT 28.9 % (35.4-49); HEMOGLOBIN 9.5 GM/dL (11.7-16.9); LYMPH % 24.5 % (8-40); MCH 21.6 pg (25.7-33.7); MCHC 32.7 g/dl (32.0-35.9); MEAN CELL VOLUME 65.9 fl (80-96); MEAN PLT VOLUME 8.8 fl (7.5-11.1); MONO % 10.6 % (3.8-10.2); NEUT % 62.6 % (42.8-82.8); PLATELET COUNT 286 K/MM3 (134-434); RBC 4.38 M/mm3 (4.00-5.60); RDW 26.3 % (11.9-15.9); WHITE BLOOD COUNT 6.1 K/mm3 (4.0-10.0)
[2018-05-25] MEDS ORDERED: PALONOSETRON HCL 0.25 MG/5 ML VIAL IVPUSH ONE (10:00)
[2018-05-25] MEDS ORDERED: DEXAMETHASONE INJECTION 20 MG in SODIUM CHLORIDE 50 ML IVPB ONE (10:00)
[2018-05-25 10:06] LABS: ALBUMIN 3.9 g/dl (3.4-5.0); ALK PHOS 185 U/L (45-117); ANION GAP 12 (8-16); BILIRUBIN,DIRECT 0.3 mg/dL (0.0-0.2); BILIRUBIN,TOTAL 0.9 mg/dL (0.2-1.0); BLOOD UREA NITROGEN 22 mg/dL (7-18); CALCIUM 9.3 mg/dL (8.5-10.1); CHLORIDE 104 mmol/L (98-107); CO2 24 mmol/L (21-32); CREATININE 0.9 mg/dL (0.7-1.3); GLUCOSE,RANDOM 110 mg/dL (74-106); POTASSIUM 4.2 mmol/L (3.5-5.1); SGOT/AST 21 U/L (15-37); SGPT/ALT 31 U/L (12-78); SODIUM 140 mmol/L (136-145); TOT PROT 7.2 g/dl (6.4-8.2)
[2018-05-25] MEDS ORDERED: GEMCITABINE HCL IV ONE (10:30)
[2018-05-25] MEDS ORDERED: SODIUM CHLORIDE IV ONE (10:30)
[2018-05-25] MEDS ORDERED: SODIUM CHLORIDE IVPB ONE (11:00)
[2018-05-25] MEDS ORDERED: CARBOPLATIN IVPB ONE (11:00)
[2018-05-25] MEDS ORDERED: SODIUM CHLORIDE 500 ML IV ONE (12:00)
[2018-05-25 12:13] LABS: ANISOCYTOSIS 2+
[2018-05-25 12:14] LABS: PLATELET ESTIMATE ADEQUATE
[2018-05-25 16:50] VITALS: TEMP 97.5
[2018-05-25 17:08] VITALS: BP 119/75; PULSE 73
[2018-05-25] MEDS ORDERED: PORTA CATH FLUSH 10 ML IVPUSH ONE (17:08)
== END 2018-05-25 16:25 | disposition home or self-care (01) ==
LOC: JONCCHEMO 07:17 → J7W 11:15 → JONCCHEMO 16:25
PROVIDERS: ATTEND Internal Medicine Hematology & Oncology
PROC: 3E04305 Introduction of Other Antineoplastic into Central Vein, Percutaneous Approach (ICD-10-PCS; principal; 2018-05-25)
PROC: 3E043GC Introduction of Other Therapeutic Substance into Central Vein, Percutaneous Approach (ICD-10-PCS; 2018-05-25)
PROC: 3E0437Z Introduction of Electrolytic and Water Balance Substance into Central Vein, Percutaneous Approach (ICD-10-PCS; 2018-05-25)
DX: Z51.11 Encounter for antineoplastic chemotherapy (principal); C67.9 Malignant neoplasm of bladder, unspecified; C78.7 Secondary malignant neoplasm of liver and intrahepatic bile duct; I10 Essential (primary) hypertension; E11.9 Type 2 diabetes mellitus without complications; E78.00 Pure hypercholesterolemia, unspecified; N28.9 Disorder of kidney and ureter, unspecified
CPT/HCPCS: 36415; 80053; 80076; 83735; 85025; 96361; 96375; 96413; 96417; J1100; J2469

== ENCOUNTER 2018-06-22 07:33 | Day surgery (SDC) | payer OTHER ==
[2018-06-22] MEDS ORDERED: PALONOSETRON HCL 0.25 MG/5 ML VIAL IVPUSH ONE (08:00)
[2018-06-22] MEDS ORDERED: DEXAMETHASONE INJECTION 20 MG in SODIUM CHLORIDE 50 ML IVPB ONE (08:00)
[2018-06-22] MEDS ORDERED: SODIUM CHLORIDE IV ONE (08:30)
[2018-06-22] MEDS ORDERED: GEMCITABINE HCL IV ONE (08:30)
[2018-06-22] MEDS ORDERED: SODIUM CHLORIDE IVPB ONE (09:00)
[2018-06-22] MEDS ORDERED: CARBOPLATIN IVPB ONE (09:00)
[2018-06-22] MEDS ORDERED: SODIUM CHLORIDE 500 ML IV ONE (10:00)
[2018-06-22 10:04] LABS: BASO % 0.4 % (0-2.0); EOS % 0.5 % (0-4.5); HEMATOCRIT 29.4 % (35.4-49); HEMOGLOBIN 9.4 GM/dL (11.7-16.9); LYMPH % 7.1 % (8-40); MCHC 32.2 g/dl (32.0-35.9); MEAN CELL VOLUME 68.5 fl (80-96); MEAN PLT VOLUME 8.8 fl (7.5-11.1); MONO % 8.1 % (3.8-10.2); NEUT % 83.9 % (42.8-82.8); PLATELET COUNT 281 K/MM3 (134-434); RBC 4.29 M/mm3 (4.00-5.60); RDW 23.4 % (11.9-15.9); WHITE BLOOD COUNT 11.1 K/mm3 (4.0-10.0)
[2018-06-22 10:32] LABS: ALBUMIN 3.4 g/dl (3.4-5.0); ALBUMIN 3.5 g/dl (3.4-5.0); ANION GAP 11 MMOL/L (8-16); BILIRUBIN,DIRECT 0.4 mg/dL (0.0-0.2); BLOOD UREA NITROGEN 20 mg/dL (7-18); CALCIUM 9.1 mg/dL (8.5-10.1); CHLORIDE 102 mmol/L (98-107); CO2 24 mmol/L (21-32); GLUCOSE,RANDOM 158 mg/dL (74-106); POTASSIUM 3.9 mmol/L (3.5-5.1); SGOT/AST 25 U/L (15-37); SGPT/ALT 29 U/L (12-78); SODIUM 137 mmol/L (136-145)
[2018-06-22 10:33] LABS: BILIRUBIN,TOTAL 1.1 mg/dL (0.2-1.0); TOT PROT 7.2 g/dl (6.4-8.2)
[2018-06-22 10:34] LABS: ALK PHOS 252 U/L (45-117); BILIRUBIN,TOTAL 1.1 mg/dL (0.2-1.0); TOT PROT 7.1 g/dl (6.4-8.2)
[2018-06-22 11:52] LABS: ANISOCYTOSIS 3+; MACROCYTOSIS 0; PLATELET ESTIMATE NORMAL; TEAR DROP CELLS 2+
[2018-06-22 16:18] VITALS: BP 130/77; PULSE 84; TEMP 97.6
[2018-06-22] MEDS ORDERED: PORTA CATH FLUSH 10 ML IVPUSH ONE (16:18)
== END 2018-06-22 16:05 | disposition home or self-care (01) ==
LOC: JONCCHEMO 07:33 → J7W 11:05 → JONCCHEMO 16:05
PROVIDERS: ATTEND Internal Medicine Hematology & Oncology
PROC: 3E04305 Introduction of Other Antineoplastic into Central Vein, Percutaneous Approach (ICD-10-PCS; principal; 2018-06-22)
PROC: 3E043GC Introduction of Other Therapeutic Substance into Central Vein, Percutaneous Approach (ICD-10-PCS; 2018-06-22)
PROC: 3E0437Z Introduction of Electrolytic and Water Balance Substance into Central Vein, Percutaneous Approach (ICD-10-PCS; 2018-06-22)
DX: Z51.11 Encounter for antineoplastic chemotherapy (principal); C67.9 Malignant neoplasm of bladder, unspecified; C78.7 Secondary malignant neoplasm of liver and intrahepatic bile duct; K74.60 Unspecified cirrhosis of liver; E11.9 Type 2 diabetes mellitus without complications; E78.00 Pure hypercholesterolemia, unspecified; I10 Essential (primary) hypertension; Z86.79 Personal history of other diseases of the circulatory system
CPT/HCPCS: 36415; 80053; 80076; 83735; 85025; 96361; 96367; 96375; 96413; 96417; J1100; J2469

== ENCOUNTER 2018-06-23 07:27 | Day surgery (SDC) | payer OTHER ==
[2018-06-23] MEDS ORDERED: TBO-FILGRASTIM 480 MCG/0.8 ML DISP.SYRIN SQ ONE (13:45)
[2018-06-23 14:50] VITALS: BP 126/81; PULSE 83; TEMP 96.6
== END 2018-06-23 14:00 | disposition home or self-care (01) ==
LOC: JONCCHEMO 07:27 → J7W 13:38 → JONCCHEMO 14:00
PROVIDERS: ATTEND Internal Medicine Hematology & Oncology
PROC: 3E013GC Introduction of Other Therapeutic Substance into Subcutaneous Tissue, Percutaneous Approach (ICD-10-PCS; principal; 2018-06-23)
DX: Z76.89 Persons encountering health services in other specified circumstances (principal); C67.9 Malignant neoplasm of bladder, unspecified; C78.7 Secondary malignant neoplasm of liver and intrahepatic bile duct
CPT/HCPCS: 96372; J1447

== ENCOUNTER 2018-06-25 09:48 | Inpatient (IN) | payer OTHER ==
[2018-06-25] MEDS ORDERED: SODIUM CHLORIDE 0.9% 1000 ML INFUS.BAG IV STA (09:54)
--- NOTE | 2018-06-25 10:04 | PDOC ---
History of Present Illness - History of Present Illness Initial Comments: 06/25/18 10:03 77 with h/o HTN, HLD, anemia, BPH, Bladder cancer with mets to liver and bone, BL hydroureteronephrosis due to recurrent Bladder CA., BL ureteral stent and BL percutaneous nephrostomy tube placement with recent BL nephrostomy tube removal (06/22/18) who p/w chills, and urinary urgency. Patient reports transient chills and urinary urgency lasting for seconds this morning when attempting to urinate. Patient states this is consistent with prior admission for UTI. Reports hematuria now resolved following nephrostomy tube removal (06/22/18). Recent admission 05/15-05/20/18 for Serratia and enterobacter UTI. Last chemotherapy 06/23/2018. Patient took two extra strength Tylenol prior to arrival. Denies Fevers, N/V, CP, SOB, cough, wheezing, abdominal pain, diarrhea, constipation, BPR, urinary complaints, hematruia, weakness, lightheadedness, sensory changes. PMHx: as noted above ROS: as noted above Allergies: NKDA <Domingo Sandoval - Last Filed: 06/25/18 13:44> <Paola Sorensen - Last Filed: 06/25/18 14:41> - General Chief Complaint: Respiratory Stated Complaint: FEVER Time Seen by Provider: 06/25/18 09:50 Past History - Past Medical History Anemia: No Asthma: No Cancer: Yes (BLADDER W/ mets to liver and bone) Cardiac Disorders: No CVA: No COPD: No CHF: No Dementia: No Diabetes: Yes GI Disorders: No Disorders: Yes (BPH) HTN: Yes Hypercholesterolemia: No Liver Disease: No Seizures: No Thyroid Disease: No - Surgical History Abdominal Surgery: No Appendectomy: No Cardiac Surgery: No - Suicide/Smoking/Psychosocial Hx Smoking Status: Yes Smoking History: Never smoked Have you smoked in the past 12 months: No Number of Cigarettes Smoked Daily: 0 If you are a former smoker, when did you quit?: 1989 Information on smoking cessation initiated: No Hx Alcohol Use: No Drug/Substance Use Hx: No Substance Use Type: None Hx Substance Use Treatment: No <Domingo Sandoval - Last Filed: 06/25/18 13:44> <Paola Sorensen - Last Filed: 06/25/18 14:41> - Past Medical History Allergies/Adverse Reactions: Allergies Allergy/AdvReac Type Severity Reaction Status Date / Time No Known Allergies Allergy Verified 06/25/18 09:52 Home Medications: Ambulatory Orders Aspirin [Ecotrin] 81 mg PO DAILY 06/25/18 Finasteride [Proscar -] 5 mg PO DAILY 06/25/18 Metformin HCl [Glucophage] 1,000 mg PO BID 06/25/18 Metoclopramide HCl 5 mg PO BID PRN 06/25/18 Metoprolol Succinate [Toprol Xl -] 100 mg PO DAILY 06/25/18 Multivit-Min/FA/Lycopen/Lutein [Centrum Silver Men Tablet] 1 each PO DAILY 06/25 Nifedipine [Procardia Xl] 30 mg PO DAILY 06/25/18 Silodosin [Rapaflo] 8 mg PO DAILY 06/25/18 Zolpidem Tartrate [Ambien] 5 mg PO HS 06/25/18 Review of Systems - Review of Systems Comments:: 06/25/18 10:03 GENERAL/CONSTITUTIONAL: No fever or chills. No weakness. HEAD, EYES, EARS, NOSE AND THROAT: No change in vision. No ear pain or discharge. No sore throat. CARDIOVASCULAR: No chest pain or shortness of breath RESPIRATORY: No cough, wheezing, or hemoptysis. GASTROINTESTINAL: No nausea, vomiting, diarrhea or constipation. GENITOURINARY: No dysuria, frequency, or change in urination. MUSCULOSKELETAL: No joint or muscle swelling or pain. No neck or back pain. SKIN: No rash NEUROLOGIC: No headache, vertigo, loss of consciousness, or change in strength/ sensation. ENDOCRINE: No increased thirst. No abnormal weight change HEMATOLOGIC/LYMPHATIC: No anemia, easy bleeding, or history of blood clots. ALLERGIC/IMMUNOLOGIC: No hives or skin allergy. <Domingo Sandoval - Last Filed: 06/25/18 13:44> *Physical Exam - Vital Signs Last Vital Signs Temp Pulse Resp BP Pulse Ox 98.5 F 112 H 20 107/63 95 06/25/18 09:49 06/25/18 09:49 06/25/18 09:49 06/25/18 09:49 06/25/18 09:49 - Physical Exam Comments: 06/25/18 10:03 GENERAL: Awake, alert, and fully oriented, in no acute distress HEAD: No signs of trauma, normocephalic, atraumatic EYES: PERRLA, EOMI, sclera anicteric, conjunctiva clear ENT: Hearing grossly normal, nares patent, oropharynx clear without exudates. Moist mucosa NECK: Normal ROM, supple, no lymphadenopathy, JVD, or masses LUNGS: No distress, speaks full sentences, clear to auscultation bilaterally HEART: Regular rate and rhythm, normal S1 and S2, no murmurs, rubs or gallops, peripheral pulses normal and equal bilaterally. ABDOMEN: Soft, nontender, normoactive bowel sounds. No guarding, no rebound. No masses. Neg CVA ttp. BL flank with 1-2 cm scarred tube insertion site c/d/i with absent warmth, erythema, or fluctuance dressed with sterile gauze. EXTREMITIES : Normal inspection, Normal range of motion, no edema. No clubbing or cyanosis. SKIN: Warm, Dry, normal turgor, no rashes or lesions noted <Domingo Sandoval - Last Filed: 06/25/18 13:44> - Vital Signs Last Vital Signs Temp Pulse Resp BP Pulse Ox 98.7 F 79 20 115/75 97 06/25/18 13:49 06/25/18 13:49 06/25/18 09:49 06/25/18 13:49 06/25/18 13:49 <Paoal Sorensen - Last Filed: 06/25/18 14:41> ED Treatment Course - LABORATORY CBC & Chemistry Diagram: 06/25/18 11:00 06/25/18 11:00 <Domingo Sandoval - Last Filed: 06/25/18 13:44> - LABORATORY CBC & Chemistry Diagram: 06/25/18 11:00 06/25/18 11:00 - ADDITIONAL ORDERS Additional order review: Laboratory Results 06/25/18 06/25/18 06/25/18 13:00 12:56 11:00 PT with INR INR PTT (Actin FS) VBG pH POC VBG pCO2 POC VBG pO2 Mixed VBG HCO3 Sodium Potassium Chloride Carbon Dioxide Anion Gap BUN Creatinine Creat Clearance w eGFR Random Glucose Lactic Acid 1.9 Calcium Total Bilirubin AST ALT Alkaline Phosphatase Troponin I Total Protein Albumin Urine Color Cancelled Dkyellow Urine Appearance Cancelled Cloudy Urine pH Cancelled 5.0 Ur Specific Neola Cancelled 1.013 Urine Protein Cancelled 2+ H Urine Glucose (UA) Cancelled Negative Urine Ketones Cancelled Negative Urine Blood Cancelled 2+ H Urine Nitrite Cancelled Negative Urine Bilirubin Cancelled Negative Urine Urobilinogen Cancelled Negative Ur Leukocyte Esterase Cancelled 3+ H Urine WBC (Auto) 373 Urine RBC (Auto) 158 Ur Epithelial Cells Rare Urine Bacteria Moderate Urine Mucus Rare 06/25/18 06/25/18 06/25/18 11:00 11:00 11:00 PT with INR 15.00 H INR 1.33 H PTT (Actin FS) 26.1 VBG pH 7.44 H POC VBG pCO2 35.8 L D POC VBG pO2 96.0 H D Mixed VBG HCO3 23.6 Sodium 135 L Potassium 4.3 Chloride 101 Carbon Dioxide 25 Anion Gap 9 BUN 21 H Creatinine 0.9 Creat Clearance w eGFR > 60 Random Glucose 137 H Lactic Acid Calcium 8.4 L Total Bilirubin 2.4 H AST 28 ALT 31 Alkaline Phosphatase 246 H Troponin I < 0.02 Total Protein 6.6 Albumin 3.1 L Urine Color Urine Appearance Urine pH Ur Specific Neola Urine Protein Urine Glucose (UA) Urine Ketones Urine Blood Urine Nitrite Urine Bilirubin Urine Urobilinogen Ur Leukocyte Esterase Urine WBC (Auto) Urine RBC (Auto) Ur Epithelial Cells Urine Bacteria Urine Mucus 06/25/18 11:00 RBC 3.62 L MCV 68.0 L MCHC 32.1 RDW 21.7 H MPV 10.1 D Neutrophils % 95.6 H Lymphocytes % 2.4 L D Monocytes % 1.5 L D Eosinophils % 0.1 Basophils % 0.4 - RADIOLOGY Radiology Studies Ordered: Category Date Time Status CHEST X-RAY PORTABLE* [RAD] Stat Radiology 06/25/18 09:54 Completed - Medications Given in the ED: ED Medications Discontinued Medications Generic Name Dose Route Start Last Admin Trade Name Freq PRN Reason Stop Dose Admin Ceftazidime 1 gm 06/25/18 11:46 06/25/18 13:49 Fortaz (Restricted To Id) - IVPB 06/25/18 11:47 1 gm ONCE ONE Administration Vancomycin HCl 1,500 mg/ 250 mls @ 250 mls/2 hr 06/25/18 11:47 06/25/18 13:06 Dextrose IVPB 06/25/18 13:46 Not Given ONCE ONE Protocol Ketorolac Tromethamine 15 mg 06/25/18 11:41 06/25/18 11:49 Toradol Injection - IVPUSH 06/25/18 11:42 15 mg ONCE ONE Administration Sodium Chloride 2,286 ml 06/25/18 09:54 06/25/18 11:25 Normal Saline - 30 ml/kg (2286 ml) 06/25/18 09:55 2,286 ml IV Administration ONCE STA <Paola Sorensen - Last Filed: 06/25/18 14:41> Medical Decision Making - Medical Decision Making 06/25/18 10:45 77 with h/o HTN, HLD, anemia, BPH, Bladder cancer with mets to liver and bone, BL hydroureteronephrosis due to recurrent Bladder CA., BL ureteral stent and BL percutaneous nephrostomy tube placement with recent BL nephrostomy tube removal (06/22/18) who p/w chills, and urinary urgency this AM. HR 112, vitals otherwise wnl, Temp 100.9. Patient with possible UTI. Low suspicion pyelonephritis. Will assess for electrolyte abnml, toxic and metabolic derangements, and acid base disturbances. Initiate septic protocol and begin on tailored antibiotics. Ed Course: CBC,CMP, Cardiac, VBG, LA, UA, Urine Cx. Blood Cx. EKG, CXR 06/25/18 11:57 Vancomycin, Ceftazidime 06/25/18 11:57 WBC: 14.7 H/H: 7.9/24.6 (9.4/29.4 06/22/18) 06/25/18 12:23 1 U PRBC leukocyte reduced 06/25/18 13:01 Dr. Quinteros (Heme/Onc) agrees with plan to transfuse with leukocyte reduced blood. Plan to admit to Dr. Andrade. Patient septic suspect urinary source (3/4 SIRS criteria, Temp 100.9, HR 117, WBC 14.7, Neutrophils 95%- non neutropenic). Started on Vancomycin, Ceftazdime ( based on prior sensitivities on past admission), 2.3 L NS, and Toradol 15 mg for fever control. 06/25/18 13:44 Patient signed out to Dr. Andrade. Agrees with admission. <Domingo Sandoval - Last Filed: 06/25/18 13:44> *DC/Admit/Observation/Transfer - Discharge Dispostion Decision to Admit order: Yes <Domingo Sandoval - Last Filed: 06/25/18 13:44> - Discharge Dispostion Decision to Admit order: Yes Decision to Admit order Date/Time: Decision to Admit Order Category Date Time Status Decision to Admit to Hospital Routine Admission 06/25/18 10:42 Active <Paola Sorensen - Last Filed: 06/25/18 14:41> Diagnosis at time of Disposition: Transfusion of blood during current hospitalisation, UTI (urinary tract infection), Anemia, Bladder cancer Sepsis Qualifiers: Sepsis type: sepsis due to unspecified organism Qualified Code(s): A41.9 - Sepsis, unspecified organism - Discharge Dispostion Condition at time of disposition: Guarded - Referrals Referrals: Andrea Delgadillo MD [Primary Care Provider] - - Patient Instructions - Post Discharge Activity
[2018-06-25] MEDS ORDERED: ACETAMINOPHEN 1000 MG/100 ML VIAL (NON FORMULARY) IVPB ONE (11:29)
--- NOTE | 2018-06-25 11:34 | PDOC ---
Attending Attestation - Resident Resident Name: Domingo Sandoval - ED Attending Attestation I have performed the following: I have examined & evaluated the patient, The case was reviewed & discussed with the resident, I agree w/resident's findings & plan - HPI HPI: 06/25/18 11:33 Jory 78 y.o. male with PMH of metastatic bladder CA on chemotherapy, b/l nephrostomy, BPH, NIDDM, HTN presents today with subjective chills and weakness this morning. +urinary urgency and frequency x3 days, with difficulty initiating and small amounts, urinating x 10 per day. No hematuria or dysuria. Last chemotherapy round on Tuesday06/21/18, s/p neupogen on 06/22/18. Neprhostomy tubes removed 06/22/18, on levaquin currently for infection ppx. admitted in May 2018 with fever 102F, found to have sepsis 2/2 Serratia/ Enterococcal UTI and anemia, received pRBC and neupogen. He had course of zosyn , then sent to rehab on ampicillin and levaquin x 1 week. - Physicial Exam PE: 06/25/18 14:06 NAD, nontoxic appearing, dry membranes, nl conjunctiva, anicteric; neck supple. lungs clear, RRR, abdomen soft nontender. No CVAT. +bilateral flank nephrostomy sites. FOLEY x4, no focal neuro deficits. No peripheral edema. normal color for ethnicity, very warm to touch - Medical Decision Making 06/25/18 11:33 Jory 77 y.o. male with PMH of metastatic bladder CA on chemotherapy, b/l nephrostomy, BPH, NIDDM, HTN presents today with subjective chills and weakness this morning. +urinary urgency and frequency x3 days, with difficulty initiating and small amounts, urinating x 10 per day. Last admit for urosepsis for Serratia and E. faecalis UTI Vitals remarkable for tachycardia in 110s. Febrile to 100.9. EKG normal sinus rhythm, no interval abnormalities, narrow QRS, ST and T wave segments and morphology normal. Nonspecific T wave abnormalities in III, no ischemic findings. Interventions: given tylenol/toradol antipyretics (no contraindications reviewed with pt), empiric abx - ceftaz/vancomycin based on prior cultures. Labs and lytes remarkable for acute on chronic anemia in the setting of myelosuppressive therapy - transfuse 1 unit leuk reduced RBC due to underlying immunocompromised condition. Lactic_ normal, reassuring. UA with copious WBC/RBC, 3+ leuk esterase, highly suspecting UTI as source of sepsis. Repeat VS normalized, reassuring and responding to therapy. Followup on blood and urine cultures, abx tailored to prior abx choices. paged out to Dr. Quinteros ammonia refrigeration technician for Dr. Vance, hematology/oncology - agree with plan of transfusion, IV abx and admission Dispo: admit for medical management, ID consultation, treatment of sepsis likely 2/2 UTI given constellation of symptoms. admit private medicine team, Dr. Andrade. 06/25/18 14:08 Heart Score/ECG Review - ECG Impressions Normal ECG: Yes Comment:: 06/25/18 11:34 EKG normal sinus rhythm, no interval abnormalities, narrow QRS, ST and T wave segments and morphology normal. Nonspecific T wave abnormalities in III, no ischemic findings.
[2018-06-25] MEDS ORDERED: ACETAMINOPHEN INJECTION 100 ML IVPB ONE (11:35)
[2018-06-25] MEDS ORDERED: KETOROLAC TROMETHAMINE 15 MG/ML VIAL IVPUSH ONE (11:41)
[2018-06-25] MEDS ORDERED: KETOROLAC TROMETHAMINE 15 MG/ML VIAL ONE (11:42)
[2018-06-25] MEDS ORDERED: cefTAZidime PENTAHYDRATE 1 GM VIAL (RESTRICTED TO ID) IVPB ONE (11:46)
[2018-06-25] MEDS ORDERED: VANCOMYCIN 1,500 MG in DEXTROSE 5%-WATER - 250 ML IVPB ONE (11:47)
[2018-06-25 11:48] LABS: BASO % 0.4 % (0-2.0); EOS % 0.1 % (0-4.5); HEMATOCRIT 24.6 % (35.4-49); HEMOGLOBIN 7.9 GM/dL (11.7-16.9); LYMPH % 2.4 % (8-40); MCH 21.8 pg (25.7-33.7); MCHC 32.1 g/dl (32.0-35.9); MEAN PLT VOLUME 10.1 fl (7.5-11.1); MONO % 1.5 % (3.8-10.2); NEUT % 95.6 % (42.8-82.8); PLATELET COUNT 177 K/MM3 (134-434); RBC 3.62 M/mm3 (4.00-5.60); RDW 21.7 % (11.9-15.9); WHITE BLOOD COUNT 14.7 K/mm3 (4.0-10.0)
[2018-06-25] MEDS ORDERED: VANCOMYCIN 1,500 MG in DEXTROSE 5%-WATER - 500 ML IVPB ONE (11:51)
[2018-06-25 11:54] LABS: VENOUS PC02 35.8 mmHg (38-52); VENOUS PH 7.44 (7.32-7.42)
[2018-06-25 11:59] LABS: INR 1.33 (0.83-1.09)
[2018-06-25 12:02] LABS: ACTIVATED PTT 26.1 SECONDS (25.2-36.5)
[2018-06-25 12:11] LABS: ALBUMIN 3.1 g/dl (3.4-5.0); ANION GAP 9 MMOL/L (8-16); BLOOD UREA NITROGEN 21 mg/dL (7-18); CALCIUM 8.4 mg/dL (8.5-10.1); CHLORIDE 101 mmol/L (98-107); CO2 25 mmol/L (21-32); CREATININE 0.9 mg/dL (0.7-1.3); GLUCOSE,RANDOM 137 mg/dL (74-106); POTASSIUM 4.3 mmol/L (3.5-5.1); SGOT/AST 28 U/L (15-37); SGPT/ALT 31 U/L (12-78); SODIUM 135 mmol/L (136-145)
[2018-06-25 12:14] LABS: ALK PHOS 246 U/L (45-117); TOT PROT 6.6 g/dl (6.4-8.2)
[2018-06-25 12:16] LABS: BILIRUBIN,TOTAL 2.4 mg/dL (0.2-1.0)
[2018-06-25 13:35] LABS: ANISOCYTOSIS 2+; MACROCYTOSIS 0; OVALOCYTE 1+; PLATELET ESTIMATE NORMAL; TEAR DROP CELLS 2+
[2018-06-25 13:37] LABS: URINE APPEARANCE CLOUDY; URINE BILIRUBIN NEGATIVE (<2.0 mg/dL); URINE COLOR DKYELLOW; URINE GLUCOSE (UA) NEGATIVE (NEGATIVE); URINE KETONE NEGATIVE (NEGATIVE); URINE NITRITE NEGATIVE (NEGATIVE); URINE UROBILINOGEN NEGATIVE mg/dL (0.2-1.0)
[2018-06-25 13:50] LABS: URINE LEUK ESTERASE 3+ (NEGATIVE); URINE PROTEIN 2+ (NEGATIVE)
[2018-06-25 13:51] LABS: EPI CELLS RARE /HPF (FEW); URINE BACTERIA MODERATE /hpf (NONE SEEN); URINE MUCUS RARE
[2018-06-25 19:53] VITALS: BMI 25.5
[2018-06-25] MEDS ORDERED: IBUPROFEN 800 MG/8 ML IJ IVPB ONE ×2 (20:13→20:18)
--- NOTE | 2018-06-25 22:39 | HP ---
Admitting History and Physical - Past Medical History Cardiovascular: Yes: HTN, Hyperlipdemia Renal/: Yes: Renal Failure, BPH, Cancer, Hematuria Heme/Onc: Yes: Anemia, Other (Bladder cancer w/ mets to liver/bone) Endocrine: Yes: Diabetes Mellitus - Smoking History Smoking history: Never smoked Have you smoked in the past 12 months: No Aproximately how many cigarettes per day: 0 If you are a former smoker, when did you quit?: 1989 - Alcohol/Substance Use Hx Alcohol Use: No Home Medications - Allergies Allergies/Adverse Reactions: Allergies Allergy/AdvReac Type Severity Reaction Status Date / Time No Known Allergies Allergy Verified 06/25/18 09:52 - Home Medications Home Medications: Ambulatory Orders Aspirin [Ecotrin] 81 mg PO DAILY 06/25/18 Finasteride [Proscar -] 5 mg PO DAILY 06/25/18 Metformin HCl [Glucophage] 1,000 mg PO BID 06/25/18 Metoclopramide HCl 5 mg PO BID PRN 06/25/18 Metoprolol Succinate [Toprol Xl -] 100 mg PO DAILY 06/25/18 Multivit-Min/FA/Lycopen/Lutein [Centrum Silver Men Tablet] 1 each PO DAILY 06/25 Nifedipine [Procardia Xl] 30 mg PO DAILY 06/25/18 Silodosin [Rapaflo] 8 mg PO DAILY 06/25/18 Zolpidem Tartrate [Ambien] 5 mg PO HS 06/25/18 Physical Examination Vital Signs: Vital Signs Temperature 97.8 F 06/25/18 22:30 Pulse Rate 75 06/25/18 22:30 Respiratory Rate 18 06/25/18 22:30 Blood Pressure 119/75 06/25/18 22:30 O2 Sat by Pulse Oximetry (%) 96 06/25/18 22:00 Labs: CBC, BMP 06/25/18 11:00 06/25/18 11:00
[2018-06-25] MEDS ORDERED: METOCLOPRAMIDE HCL 10 MG TABLET (FP) PO PRN (22:45)
[2018-06-25] MEDS ORDERED: VANCOMYCIN 1,000 MG in DEXTROSE 5%-WATER - 250 ML IVPB ONE (23:15)
[2018-06-25] MEDS: ZOLPIDEM TARTRATE 5 MG TABLET PO PRN (23:20)
[2018-06-26] MEDS: INSULIN SLIDING SCALE (NOVOLOG) 1 VIAL SQ SCH ×4 (06:17→21:06)
[2018-06-26] MEDS: metFORMIN HCL 500 MG TABLET (FP) PO SCH ×2 (06:17→17:29)
[2018-06-26 07:29] LABS: BASO % 0.7 % (0-2.0); HEMATOCRIT 25.3 % (35.4-49); HEMOGLOBIN 8.3 GM/dL (11.7-16.9); MCH 23.1 pg (25.7-33.7); MCHC 32.8 g/dl (32.0-35.9); MEAN CELL VOLUME 70.4 fl (80-96); MEAN PLT VOLUME 9.1 fl (7.5-11.1); MONO % 2.7 % (3.8-10.2); NEUT % 83.6 % (42.8-82.8); PLATELET COUNT 137 K/MM3 (134-434); RDW 22.9 % (11.9-15.9); WHITE BLOOD COUNT 8.3 K/mm3 (4.0-10.0)
[2018-06-26 07:58] LABS: ALBUMIN 2.7 g/dl (3.4-5.0); ALK PHOS 213 U/L (45-117); ANION GAP 7 MMOL/L (8-16); BILIRUBIN,TOTAL 1.7 mg/dL (0.2-1.0); BLOOD UREA NITROGEN 17 mg/dL (7-18); CALCIUM 7.9 mg/dL (8.5-10.1); CHLORIDE 105 mmol/L (98-107); CO2 27 mmol/L (21-32); CREATININE 0.8 mg/dL (0.7-1.3); GLUCOSE,RANDOM 122 mg/dL (74-106); POTASSIUM 3.9 mmol/L (3.5-5.1); SGOT/AST 26 U/L (15-37); SGPT/ALT 27 U/L (12-78); SODIUM 139 mmol/L (136-145); TOT PROT 5.9 g/dl (6.4-8.2)
[2018-06-26] MEDS: TAMSULOSIN HCL 0.4 MG CAP.ER.24H (FP) PO SCH (09:30)
[2018-06-26] MEDS ORDERED: cefTAZidime PENTAHYDRATE 1 GM/50ML PRE-DOCKED (RESTRICTED TO ID) IVPB SCH (10:00)
[2018-06-26] MEDS: HEPARIN NA (PORCINE) 5,000 UNITS/ML 1ML VIAL SQ SCH ×2 (10:08→21:00)
[2018-06-26] MEDS: MULTIVITAMINS THER W-MINERALS COMBO TABLET (FP) PO SCH (10:08)
[2018-06-26] MEDS: ASPIRIN COATED 81 MG TABLET.EC PO SCH (10:08)
[2018-06-26] MEDS: NIFEdipine E.R. 30 MG TABLET (FP) PO SCH (10:08)
[2018-06-26] MEDS: FINASTERIDE 5 MG TABLET (FP) PO SCH (10:08)
--- NOTE | 2018-06-26 10:33 | EKG ---
Test Reason : Blood Pressure : / mmHG Vent. Rate : 096 BPM Atrial Rate : 096 BPM P-R Int : 192 ms QRS Dur : 100 ms QT Int : 346 ms P-R-T Axes : 023 -53 027 degrees QTc Int : 437 ms SINUS RHYTHM WITH PREMATURE SUPRAVENTRICULAR COMPLEXES LEFT AXIS DEVIATION ABNORMAL ECG WHEN COMPARED WITH ECG OF 14-MAY-2018 21:33, PREMATURE SUPRAVENTRICULAR COMPLEXES ARE NOW PRESENT Confirmed by GERMAN LYNCH, ESTHER ([id number]) on 06/26/2018 10:33:20 AM Referred By: Confirmed By:ESTHER PORTER MD
--- NOTE | 2018-06-26 14:52 | CON.ID ---
Consult - History of Present Illness History of Present Illness: Asked to evaluate this 78 y.o. 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 He had chemotherapy on 06/21 and had removal of b/l nephrostomy as well as neupogen on 06/22. Previously pt was treated for pseumonas UTI and then serratia/enterococcal complicated UTIs. He has been on Levaquin po for 5 days prophylactically. In the ER pt was febrile (temp 102F) and with leukocytosis (wbc 14K) and mildy elevated BUN/Creatinine. He is currently alert , afebrile, without acute distress. Denies abd/suprapubic/flank pain. Denies SOB /cough/CP/focal deficits/rash/n/v/d. - History Source History Provided By: Patient, Medical Record Limitations to Obtaining History: No Limitations - Past Medical History Cardio/Vascular: Yes: HTN, Hyperlipdemia Renal/: Yes: Renal Failure, BPH, Cancer, Hematuria Heme/Onc: Yes: Cancer, Current Chemotherapy (Bladder CA with mets to liver/bone) Endocrine: Yes: Diabetes Mellitus - Past Surgical History Past Surgical History: Yes: Stent (urinary) - Alcohol/Substance Use Hx Alcohol Use: No - Smoking History Smoking history: Never smoked Have you smoked in the past 12 months: No Aproximately how many cigarettes per day: 0 If you are a former smoker, when did you quit?: 1989 - Social History History of Recent Travel: No Home Medications - Allergies Allergies/Adverse Reactions: Allergies Allergy/AdvReac Type Severity Reaction Status Date / Time No Known Allergies Allergy Verified 06/25/18 09:52 - Home Medications Home Medications: Ambulatory Orders Aspirin [Ecotrin] 81 mg PO DAILY 06/25/18 Finasteride [Proscar -] 5 mg PO DAILY 06/25/18 Metformin HCl [Glucophage] 1,000 mg PO BID 06/25/18 Metoclopramide HCl 5 mg PO BID PRN 06/25/18 Metoprolol Succinate [Toprol Xl -] 100 mg PO DAILY 06/25/18 Multivit-Min/FA/Lycopen/Lutein [Centrum Silver Men Tablet] 1 each PO DAILY 06/25 Nifedipine [Procardia Xl] 30 mg PO DAILY 06/25/18 Silodosin [Rapaflo] 8 mg PO DAILY 06/25/18 Zolpidem Tartrate [Ambien] 5 mg PO HS 06/25/18 Review of Systems - Review of Systems Constitutional: reports: Chills, Fever. denies: No Symptoms, Diaphoresis, Lethargy, Loss of Appetite, Malaise, Night Sweats, Unintentional Wgt. Loss, Weakness, Other Eyes: reports: No Symptoms. denies: Blind Spots, Blurred Vision, Double Vision , Eye Pain, Floaters, Photophobia, Recent Change in Vision, Other HENT: reports: No Symptoms. denies: Difficult Swallowing, Ear Discharge, Ear Pain, Epistaxis, Gingival Bleeding, Hearing Loss, Mouth Swelling, Nasal Congestion, Ocular Prosthesis, Throat Pain, Toothache, Ringing in Ears, Other Neck: reports: No Symptoms. denies: Decreased ROM, Lumps, Pain on Movement, Stiffness, Swollen Glands, Tenderness, Other Cardiovascular: reports: No Symptoms. denies: Chest Pain, Edema, Palpitations, Shortness of Breath, Other Respiratory: reports: No Symptoms. denies: Cough, Exercise Intolerance, Hemoptysis, Orthopnea, PND, Snoring, SOB, SOB on Exertion, Wheezing, Other Gastrointestinal: reports: No Symptoms. denies: Abdominal Pain, Bloating, Constipation, Diarrhea, Dysphagia, Indigestion, Melena, Nausea, Rectal Bleeding , Vomiting, Vomiting Blood, Other Genitourinary: reports: Burning. denies: No Symptoms, Discharge, Dysuria, Flank Pain, Frequency, Hematuria, Incontinence, Lesions, Menses, Pain, Testicular Mass, Testicular Pain, Testicular Swelling, Urgency, Vaginal Bleeding , Other Musculoskeletal: reports: No Symptoms. denies: Back Pain, Crepitus, Decreased ROM, Extremity Pain, Joint Pain, Joint Swelling, Muscle Pain, Muscle Cramps, Muscle Weakness, Other Integumentary: reports: No Symptoms. denies: Blister, Bruising, Change in Color , Eczema, Erythema, Incision, Lesions, Lump, Pallor, Pruritis, Rash, Wound, Other Neurological: reports: No Symptoms. denies: Change in LOC, Change in Speech, Confusion, Dizziness, Headache, Incoordination, Numbness, Parasthesia, Pre- Existing Deficit, Seizure, Syncope, Tremors, Unsteady Gait, Weakness, Other Endocrine: reports: No Symptoms. denies: Excessive Sweating, Flushing, Increased Hunger, Increased Thirst, Intolerance to Cold, Intolerance to Heat, Unexplained Weight Gain, Unexplained Weight Loss, Other Hematology/Lymphatic: reports: No Symptoms. denies: Easily Bruised, Excessive Bleeding, Swollen Glands, Other Psychiatric: reports: No Symptoms. denies: Altered Sleep Pattern, Anxiety, Depression, Hallucinations, Panic, Paranoia, Suicidal, Other Physical Exam Vital Signs: Vital Signs Temperature 97.8 F 06/26/18 07:24 Pulse Rate 65 06/26/18 07:24 Respiratory Rate 18 06/26/18 07:24 Blood Pressure 146/93 06/26/18 07:24 O2 Sat by Pulse Oximetry (%) 96 06/25/18 22:00 Constitutional: Yes: No Distress, Calm Eyes: Yes: Conjunctiva Clear HENT: Yes: Atraumatic Neck: Yes: Supple Cardiovascular: Yes: Regular Rate and Rhythm Respiratory: Yes: CTA Bilaterally Gastrointestinal: Yes: Normal Bowel Sounds, Soft Renal/: Yes: WNL Musculoskeletal: Yes: WNL. No: Back Pain, Joint Stiffness, Joint Swelling, Muscle Pain, Muscle Weakness, Other Extremities: Yes: WNL. No: Amputation, Calf Tenderness, Cold, Cool, Cyanosis, Deformity, Delayed Capillary Refill, Erythema, External Rotation, Internal Rotation, Pallor, Shortened, Other Edema: No Integumentary: Yes: WNL. No: Body Piercing, Bruising, Erythema, Incision, Jaundice, Laceration, Petechiae, Pressure Ulcer, Rash, Skin Tear, Tattoos, Tenting, Onychomycosis, Venous Stasis Changes, Other Wound/Incision: Yes: Dressing Removed (b/l flank - nephrostomy removed, site without tenderness/purulence) Neurological: Yes: Alert, Oriented Psychiatric: Yes: Alert Labs: CBC, BMP 06/26/18 07:00 06/26/18 07:00 Microbiology 06/25/18 11:00 Blood - Peripheral Venous Blood Culture - Preliminary NO GROWTH OBTAINED AFTER 24 HOURS, INCUBATION TO CONTINUE FOR 4 DAYS. 06/25/18 13:00 Urine - Urine Clean Catch Urine Culture - Preliminary Lactose Fermenting Neg Bacilli 06/25/18 11:00 Blood - Peripheral Venous Blood Culture - Preliminary Pending Organism U/A: 3+ leuk est Abnormal Lab Results 06/25/18 06/25/18 06/26/18 11:00 15:01 07:00 RBC 3.60 L Hgb 8.3 L Hct 25.3 L MCV 70.4 L MCH 23.1 L RDW 22.9 H Neutrophils % 83.6 H Monocytes % 2.7 L VBG pH 7.44 H POC VBG pCO2 35.8 L D POC VBG pO2 96.0 H D Anion Gap Random Glucose Calcium Total Bilirubin Alkaline Phosphatase Total Protein Albumin Crossmatch See Detail 06/26/18 07:00 RBC Hgb Hct MCV MCH RDW Neutrophils % Monocytes % VBG pH POC VBG pCO2 POC VBG pO2 Anion Gap 7 L Random Glucose 122 H Calcium 7.9 L Total Bilirubin 1.7 H Alkaline Phosphatase 213 H D Total Protein 5.9 L Albumin 2.7 L Crossmatch Imaging - Results Chest X-ray: Report Reviewed Problem List - Problems (1) Anemia Code(s): D64.9 - ANEMIA, UNSPECIFIED (2) Bladder cancer Code(s): C67.9 - MALIGNANT NEOPLASM OF BLADDER, UNSPECIFIED (3) Sepsis Code(s): A41.9 - SEPSIS, UNSPECIFIED ORGANISM Qualifiers: Sepsis type: sepsis due to unspecified organism Qualified Code(s): A41.9 - Sepsis, unspecified organism (4) UTI (urinary tract infection) Code(s): N39.0 - URINARY TRACT INFECTION, SITE NOT SPECIFIED (5) KARTHIKEYAN (acute kidney injury) Code(s): N17.9 - ACUTE KIDNEY FAILURE, UNSPECIFIED (6) BPH (benign prostatic hyperplasia) Code(s): N40.0 - BENIGN PROSTATIC HYPERPLASIA WITHOUT LOWER URINRY TRACT SYMP (7) Diabetes Code(s): E11.9 - TYPE 2 DIABETES MELLITUS WITHOUT COMPLICATIONS (8) Fever Code(s): R50.9 - FEVER, UNSPECIFIED Qualifiers: Fever type: unspecified Qualified Code(s): R50.9 - Fever, unspecified (9) HLD (hyperlipidemia) Code(s): E78.5 - HYPERLIPIDEMIA, UNSPECIFIED (10) Hematuria Code(s): R31.9 - HEMATURIA, UNSPECIFIED Qualifiers: Hematuria type: gross Qualified Code(s): R31.0 - Gross hematuria (11) Hydronephrosis Code(s): N13.30 - UNSPECIFIED HYDRONEPHROSIS Assessment/Plan 78 y.o. male with PMH of Bladder CA with metastasis to liver/bone on chemotherapy, b/l hydronephrosis s/p stent and b/l nephrostomy (recently removed ), hx of previous UTIs, DM, HTN, HLD, anemia presenting with dysuria, fever, chills, leukocytosis. Records/labs/imaging reviewed. UTI Sepsis Possible Bacteremia Metastatic Bladder CA on chemotherapy Fever Leukocytosis - resolving KARTHIKEYAN DM BPH B/L hydronephrosis - s/p recent removal of nephrostomies -- d/c Ceftazidime -- start Zosyn, continue Vancomycin empirically for now -- adjust antibiotics based on blood/urine cultures, f/u results -- continue monitor temps/renal function -- Heme/Oncology followup, follow up -- will follow Thank you
[2018-06-26] MEDS ORDERED: PIPERACILLIN/TAZOBACTAM 3.375 GM VIAL IVPB ONE ×2 (15:29→18:46)
[2018-06-26] MEDS ORDERED: DEXTROSE 5%-WATER - 50 ML IVPB ONE (15:29)
[2018-06-26] MEDS: PIPERACILLIN/TAZOB 3.375 GM 3.375 GM in DEXTROSE 5%-WATER - 50 ML IVPB SCH ×2 (15:38→17:33)
[2018-06-26] MEDS ORDERED: PT OWN MED DRAWER 7, Y5N ONE (15:46)
[2018-06-26] MEDS: VANCOMYCIN 1,000 MG in DEXTROSE 5%-WATER - 250 ML IVPB SCH ×2 (15:57→20:57)
--- NOTE | 2018-06-26 17:16 | PN ---
Progress Note (short form) - Note Progress Note: UROLOGY NOTE 78 Y/O Male patient with history of Bladder tumor and mets to liver and bone, HT , Bilateral hydronephrosis S/P bilateral jj stent replacement and nephrostomies removal week ago. he received his chemotherapy dose 06/23 then start dysuria and fever, he is admitted for IV ABX zosyn. his WBC from 14k to 8 k. creat. 0.9 , HB 8. O/E soft lax abd, no palpable bladder. Plan Renal U/S continue flomax and IV ABX possible TUVP
[2018-06-26] MEDS: ZOLPIDEM TARTRATE 5 MG TABLET PO PRN (21:00)
[2018-06-26] MEDS: ACETAMINOPHEN 325 MG TABLET (FP) PO PRN (21:00)
--- NOTE | 2018-06-26 22:56 | CONSULT ---
Consult - text type - Consultation Consultation Note: 78 y/o patient well known to our service with metastatic bladder cancer. He had gemzar/carboplatin on 06/22 and had removal of b/l nephrostomy nd neupogen on 06/23. Previously pt was treated for pseumonas UTI and then serratia/ enterococcal complicated UTIs. He has been on Levaquin po for 5 days prophylactically. He presents with fever of 2 days. - History Source History Provided By: Patient, Medical Record - Past Medical History Cardio/Vascular: Yes: HTN, Hyperlipdemia Renal/: Yes: Renal Failure, BPH, Cancer, Hematuria Heme/Onc: Yes: Cancer, Current Chemotherapy (Bladder CA with mets to liver/bone) Endocrine: Yes: Diabetes Mellitus - Past Surgical History Past Surgical History: Yes: Stent (urinary) - Smoking History Smoking history: Never smoked Home Medications - Allergies Allergies/Adverse Reactions: Allergies Allergy/AdvReac Type Severity Reaction Status Date / Time No Known Allergies Allergy Verified 06/25/18 09:52 - Home Medications Home Medications: Ambulatory Orders Aspirin [Ecotrin] 81 mg PO DAILY 06/25/18 Finasteride [Proscar -] 5 mg PO DAILY 06/25/18 Metformin HCl [Glucophage] 1,000 mg PO BID 06/25/18 Metoclopramide HCl 5 mg PO BID PRN 06/25/18 Metoprolol Succinate [Toprol Xl -] 100 mg PO DAILY 06/25/18 Multivit-Min/FA/Lycopen/Lutein [Centrum Silver Men Tablet] 1 each PO DAILY 06/25 Nifedipine [Procardia Xl] 30 mg PO DAILY 06/25/18 Silodosin [Rapaflo] 8 mg PO DAILY 06/25/18 Zolpidem Tartrate [Ambien] 5 mg PO HS 06/25/18 Physical Exam Vital Signs: Vital Signs Temperature 97.8 F 06/26/18 07:24 Pulse Rate 65 06/26/18 07:24 Respiratory Rate 18 06/26/18 07:24 Blood Pressure 146/93 06/26/18 07:24 O2 Sat by Pulse Oximetry (%) 96 06/25/18 22:00 Cor: RSR, No murmurs, No gallops Lungs: Clear to P&A Abd: Soft, Normal bowel sounds, No organomegaly Ext:No significant edema Skin: No rashes, Integument intact Abnormal Lab Results 06/26/18 06/26/18 07:00 07:00 RBC 3.60 L Hgb 8.3 L Hct 25.3 L MCV 70.4 L MCH 23.1 L RDW 22.9 H Neutrophils % 83.6 H Monocytes % 2.7 L Anion Gap 7 L Random Glucose 122 H Calcium 7.9 L Total Bilirubin 1.7 H Alkaline Phosphatase 213 H D Total Protein 5.9 L Albumin 2.7 L - Results Chest X-ray: Report Reviewed Problem List - Problems (1) Anemia Code(s): D64.9 - ANEMIA, UNSPECIFIED (2) Bladder cancer Code(s): C67.9 - MALIGNANT NEOPLASM OF BLADDER, UNSPECIFIED (3) Sepsis Code(s): A41.9 - SEPSIS, UNSPECIFIED ORGANISM Qualifiers: Sepsis type: sepsis due to unspecified organism Qualified Code(s): A41.9 - Sepsis, unspecified organism (4) UTI (urinary tract infection) Code(s): N39.0 - URINARY TRACT INFECTION, SITE NOT SPECIFIED (5) KARTHIKEYAN (acute kidney injury) Code(s): N17.9 - ACUTE KIDNEY FAILURE, UNSPECIFIED (6) BPH (benign prostatic hyperplasia) Code(s): N40.0 - BENIGN PROSTATIC HYPERPLASIA WITHOUT LOWER URINRY TRACT SYMP (7) Diabetes Code(s): E11.9 - TYPE 2 DIABETES MELLITUS WITHOUT COMPLICATIONS (8) Fever Code(s): R50.9 - FEVER, UNSPECIFIED Qualifiers: Fever type: unspecified Qualified Code(s): R50.9 - Fever, unspecified (9) HLD (hyperlipidemia) Code(s): E78.5 - HYPERLIPIDEMIA, UNSPECIFIED (10) Hematuria Code(s): R31.9 - HEMATURIA, UNSPECIFIED Qualifiers: Hematuria type: gross Qualified Code(s): R31.0 - Gross hematuria (11) Hydronephrosis Code(s): N13.30 - UNSPECIFIED HYDRONEPHROSIS Assessment/Plan 78 y.o. male with PMH of metastatic bladder cancer, b/l hydronephrosis s/p stent and b/l nephrostomy (recently removed), hx of previous UTIs, DM, HTN, HLD , anemia presenting with dysuria, fever, chills, leukocytosis. Patient received C4 carboplatin and gemzar on 9/6/18 UTI Sepsis Possible Bacteremia Metastatic Bladder CA on gemzar/carboplatin Fever Leukocytosis - resolving KARTHIKEYAN DM BPH B/L hydronephrosis - s/p recent removal of nephrostomies On vancoycin/zosyn per ID--G- bacteremia/UTI For transfusion support as necessary for neupogen as necessary will follow
--- NOTE | 2018-06-26 23:13 | PN ---
Progress Note, Physician History of Present Illness: No new complaints - Current Medication List Current Medications: Active Medications Acetaminophen (Tylenol -) 650 mg PO Q6H PRN PRN Reason: FEVER Last Admin: 06/26/18 21:00 Dose: 650 mg Aspirin (Ecotrin -) 81 mg PO DAILY [facility] Last Admin: 06/26/18 10:08 Dose: 81 mg Finasteride (Proscar -) 5 mg PO DAILY [facility] Last Admin: 06/26/18 10:08 Dose: 5 mg Heparin Sodium (Porcine) (Heparin -) 5,000 unit SQ BID [facility] Last Admin: 06/26/18 21:00 Dose: 5,000 unit Piperacillin Sod/Tazobactam (Sod 3.375 gm/ Dextrose) 50 mls @ 100 mls/hr IVPB Q8H-IV [facility]; Protocol Last Admin: 06/26/18 17:33 Dose: Not Given Vancomycin HCl 1,000 mg/ (Dextrose) 250 mls @ 166.667 mls/hr IVPB Q12H [facility]; Protocol Last Admin: 06/26/18 15:57 Dose: 166.667 mls/hr Insulin Aspart (Novolog Vial Sliding Scale -) 1 vial SQ ACHS [facility]; Protocol Last Admin: 06/26/18 21:06 Dose: Not Given Metformin HCl (Glucophage -) 1,000 mg PO BIDAC [facility] Last Admin: 06/26/18 17:29 Dose: 1,000 mg Metoclopramide HCl (Reglan -) 5 mg PO BID PRN PRN Reason: NAUSEA Metoprolol Succinate (Toprol Xl -) 100 mg PO DAILY [facility] Last Admin: 06/26/18 10:08 Dose: 100 mg Multivitamins/Minerals (Theragran-M) 1 each PO DAILY [facility] Last Admin: 06/26/18 10:08 Dose: 1 each Nifedipine (Procardia Xl -) 30 mg PO DAILY [facility] Last Admin: 06/26/18 10:08 Dose: 30 mg Tamsulosin HCl (Flomax -) 0.4 mg PO DAILY@0830 [facility] Last Admin: 06/26/18 09:30 Dose: 0.4 mg Zolpidem Tartrate (Ambien -) 5 mg PO HS PRN PRN Reason: INSOMNIA Last Admin: 06/26/18 21:00 Dose: 5 mg - Objective Vital Signs: Vital Signs Temperature 97.6 F 06/26/18 17:35 Pulse Rate 89 06/26/18 17:35 Respiratory Rate 16 06/26/18 21:00 Blood Pressure 133/73 06/26/18 17:35 O2 Sat by Pulse Oximetry (%) 96 06/26/18 21:00 HENT: Yes: WNL Neck: Yes: WNL, Supple Cardiovascular: Yes: WNL, Regular Rate and Rhythm Respiratory: Yes: WNL, Regular, CTA Bilaterally Gastrointestinal: Yes: WNL, Normal Bowel Sounds, Soft Labs: CBC, BMP 06/26/18 07:00 06/26/18 07:00 INR, PTT INR 1.33 (0.83-1.09) H 06/25/18 11:00 Problem List - Problems (1) UTI (urinary tract infection) Assessment/Plan: Cont empiric IV antibxs Follow urine cultures Code(s): N39.0 - URINARY TRACT INFECTION, SITE NOT SPECIFIED (2) Bladder cancer Assessment/Plan: As per onco Code(s): C67.9 - MALIGNANT NEOPLASM OF BLADDER, UNSPECIFIED (3) Anemia Assessment/Plan: S/P transfusion PRBC's Monitor h/H Code(s): D64.9 - ANEMIA, UNSPECIFIED (4) BPH (benign prostatic hyperplasia) Code(s): N40.0 - BENIGN PROSTATIC HYPERPLASIA WITHOUT LOWER URINRY TRACT SYMP (5) Diabetes Code(s): E11.9 - TYPE 2 DIABETES MELLITUS WITHOUT COMPLICATIONS (6) HLD (hyperlipidemia) Code(s): E78.5 - HYPERLIPIDEMIA, UNSPECIFIED (7) Hypertension Code(s): I10 - ESSENTIAL (PRIMARY) HYPERTENSION Qualifiers: Hypertension type: other secondary hypertension Qualified Code(s): I15.8 - Other secondary hypertension
[2018-06-27] MEDS ORDERED: PIPERACILLIN/TAZOBACTAM 3.375 GM VIAL IVPB ONE ×2 (01:55→09:50)
[2018-06-27] MEDS ORDERED: DEXTROSE 5%-WATER - 50 ML IVPB ONE ×2 (01:55→09:50)
[2018-06-27] MEDS: PIPERACILLIN/TAZOB 3.375 GM 3.375 GM in DEXTROSE 5%-WATER - 50 ML IVPB SCH ×2 (02:14→10:06)
[2018-06-27] MEDS: ACETAMINOPHEN 325 MG TABLET (FP) PO PRN ×2 (04:50→22:02)
[2018-06-27] MEDS: VANCOMYCIN 1,000 MG in DEXTROSE 5%-WATER - 250 ML IVPB SCH (04:50)
[2018-06-27] MEDS: metFORMIN HCL 500 MG TABLET (FP) PO SCH ×2 (06:27→16:32)
[2018-06-27] MEDS: INSULIN SLIDING SCALE (NOVOLOG) 1 VIAL SQ SCH ×4 (06:27→21:53)
[2018-06-27 07:03] LABS: BASO % 1.1 % (0-2.0); EOS % 1.4 % (0-4.5); HEMATOCRIT 25.8 % (35.4-49); HEMOGLOBIN 8.5 GM/dL (11.7-16.9); LYMPH % 18.8 % (8-40); MCH 22.9 pg (25.7-33.7); MCHC 32.8 g/dl (32.0-35.9); MEAN CELL VOLUME 69.9 fl (80-96); MEAN PLT VOLUME 9.4 fl (7.5-11.1); MONO % 6.5 % (3.8-10.2); NEUT % 72.2 % (42.8-82.8); PLATELET COUNT 156 K/MM3 (134-434); RDW 22.5 % (11.9-15.9); WHITE BLOOD COUNT 5.3 K/mm3 (4.0-10.0)
[2018-06-27 07:41] LABS: ANION GAP 9 MMOL/L (8-16); BILIRUBIN,TOTAL 1.3 mg/dL (0.2-1.0); BLOOD UREA NITROGEN 17 mg/dL (7-18); CALCIUM 8.3 mg/dL (8.5-10.1); CHLORIDE 104 mmol/L (98-107); CO2 24 mmol/L (21-32); CREATININE 0.6 mg/dL (0.7-1.3); GLUCOSE,RANDOM 147 mg/dL (74-106); POTASSIUM 3.8 mmol/L (3.5-5.1); SGOT/AST 57 U/L (15-37); SGPT/ALT 59 U/L (12-78); SODIUM 137 mmol/L (136-145); TOT PROT 6.2 g/dl (6.4-8.2)
[2018-06-27 07:42] LABS: ALK PHOS 390 U/L (45-117)
[2018-06-27] MEDS: TAMSULOSIN HCL 0.4 MG CAP.ER.24H (FP) PO SCH (08:25)
[2018-06-27] MEDS: ASPIRIN COATED 81 MG TABLET.EC PO SCH (10:06)
[2018-06-27] MEDS: HEPARIN NA (PORCINE) 5,000 UNITS/ML 1ML VIAL SQ SCH ×2 (10:06→21:54)
[2018-06-27] MEDS: MULTIVITAMINS THER W-MINERALS COMBO TABLET (FP) PO SCH (10:06)
[2018-06-27] MEDS: FINASTERIDE 5 MG TABLET (FP) PO SCH (10:06)
[2018-06-27] MEDS: NIFEdipine E.R. 30 MG TABLET (FP) PO SCH (10:06)
--- NOTE | 2018-06-27 14:12 | PN ---
Progress Note (short form) - Note Progress Note: UROLOGY NOTE PVR 450ml Plan: Galarza catheter insertion and will book him for TUVP.
--- NOTE | 2018-06-27 15:50 | PN ---
Progress Note, Physician History of Present Illness: Pt is alert, afebrile. Feels well. Denies having any specific complaints. - Current Medication List Current Medications: Active Medications Acetaminophen (Tylenol -) 650 mg PO Q6H PRN PRN Reason: FEVER Last Admin: 06/27/18 04:50 Dose: 650 mg Aspirin (Ecotrin -) 81 mg PO DAILY [facility] Last Admin: 06/27/18 10:06 Dose: 81 mg Finasteride (Proscar -) 5 mg PO DAILY [facility] Last Admin: 06/27/18 10:06 Dose: 5 mg Heparin Sodium (Porcine) (Heparin -) 5,000 unit SQ BID [facility] Last Admin: 06/27/18 10:06 Dose: 5,000 unit Ertapenem 1 gm/ Sodium (Chloride) 100 mls @ 200 mls/hr IVPB DAILY [facility] Insulin Aspart (Novolog Vial Sliding Scale -) 1 vial SQ ACHS [facility]; Protocol Last Admin: 06/27/18 13:05 Dose: Not Given Metformin HCl (Glucophage -) 1,000 mg PO BIDAC [facility] Last Admin: 06/27/18 06:27 Dose: 1,000 mg Metoclopramide HCl (Reglan -) 5 mg PO BID PRN PRN Reason: NAUSEA Metoprolol Succinate (Toprol Xl -) 100 mg PO DAILY [facility] Last Admin: 06/27/18 10:06 Dose: 100 mg Multivitamins/Minerals (Theragran-M) 1 each PO DAILY [facility] Last Admin: 06/27/18 10:06 Dose: 1 each Nifedipine (Procardia Xl -) 30 mg PO DAILY [facility] Last Admin: 06/27/18 10:06 Dose: 30 mg Tamsulosin HCl (Flomax -) 0.4 mg PO DAILY@0830 [facility] Last Admin: 06/27/18 08:25 Dose: 0.4 mg Zolpidem Tartrate (Ambien -) 5 mg PO HS PRN PRN Reason: INSOMNIA Last Admin: 06/26/18 21:00 Dose: 5 mg - Objective Vital Signs: Vital Signs Temperature 98.2 F 06/27/18 15:10 Pulse Rate 79 06/27/18 15:10 Respiratory Rate 16 06/27/18 15:10 Blood Pressure 142/72 06/27/18 15:10 O2 Sat by Pulse Oximetry (%) 96 06/26/18 21:00 Constitutional: Yes: No Distress, Calm Cardiovascular: Yes: Regular Rate and Rhythm Respiratory: Yes: Regular Gastrointestinal: Yes: Normal Bowel Sounds, Soft Genitourinary: Yes: WNL Extremities: Yes: WNL Integumentary: Yes: WNL Neurological: Yes: Alert, Oriented Labs: CBC, BMP 06/27/18 06:30 06/27/18 06:30 INR, PTT INR 1.33 (0.83-1.09) H 06/25/18 11:00 Microbiology 06/25/18 11:00 Blood - Peripheral Venous Blood Culture - Preliminary NO GROWTH OBTAINED AFTER 48 HOURS, INCUBATION TO CONTINUE FOR 3 DAYS. 06/25/18 13:00 Urine - Urine Clean Catch Urine Culture - Final Escherichia Coli [employer] 06/25/18 11:00 Blood - Peripheral Venous Blood Culture - Preliminary Lactose Fermenting Neg Bacilli Problem List - Problems (1) Anemia Code(s): D64.9 - ANEMIA, UNSPECIFIED (2) Bladder cancer Code(s): C67.9 - MALIGNANT NEOPLASM OF BLADDER, UNSPECIFIED (3) Sepsis Code(s): A41.9 - SEPSIS, UNSPECIFIED ORGANISM Qualifiers: Sepsis type: sepsis due to unspecified organism Qualified Code(s): A41.9 - Sepsis, unspecified organism (4) UTI (urinary tract infection) Code(s): N39.0 - URINARY TRACT INFECTION, SITE NOT SPECIFIED (5) KARTHIKEYAN (acute kidney injury) Code(s): N17.9 - ACUTE KIDNEY FAILURE, UNSPECIFIED (6) BPH (benign prostatic hyperplasia) Code(s): N40.0 - BENIGN PROSTATIC HYPERPLASIA WITHOUT LOWER URINRY TRACT SYMP (7) Diabetes Code(s): E11.9 - TYPE 2 DIABETES MELLITUS WITHOUT COMPLICATIONS (8) Fever Code(s): R50.9 - FEVER, UNSPECIFIED Qualifiers: Fever type: unspecified Qualified Code(s): R50.9 - Fever, unspecified (9) HLD (hyperlipidemia) Code(s): E78.5 - HYPERLIPIDEMIA, UNSPECIFIED (10) Hematuria Code(s): R31.9 - HEMATURIA, UNSPECIFIED Qualifiers: Hematuria type: gross Qualified Code(s): R31.0 - Gross hematuria (11) Hydronephrosis Code(s): N13.30 - UNSPECIFIED HYDRONEPHROSIS Assessment/Plan 78 y.o. male with PMH of Bladder CA with metastasis to liver/bone on chemotherapy, b/l hydronephrosis s/p stent and b/l nephrostomy (recently removed ), hx of previous UTIs, DM, HTN, HLD, anemia presenting with dysuria, fever, chills, leukocytosis. Records/labs/imaging reviewed. ESBL + E. coli UTI and Bacteremia Sepsis Metastatic Bladder CA on chemotherapy DM BPH/ urinary retention B/L hydronephrosis - s/p recent removal of nephrostomies -- d/c current antibiotics, will start Ertapenem IV -- recommend hold off on chemotherapy for now -- continue monitor temps, currently afebrile -- Heme/Oncology followup, follow up above discussed with PMD and Oncology
[2018-06-27] MEDS ORDERED: ERTAPENEM SODIUM 1 GM/50 ML PRE-DOCKED IVPB SCH (16:00)
[2018-06-27] MEDS ORDERED: PT OWN MED DRAWER 7, Y5N ONE (16:04)
[2018-06-27] MEDS: ERTAPENEM SODIUM 1 GM in SODIUM CHLORIDE 100 ML IVPB SCH (19:00)
[2018-06-27] MEDS: ZOLPIDEM TARTRATE 5 MG TABLET PO PRN (22:02)
--- NOTE | 2018-06-27 23:43 | PN ---
Progress Note, Physician - Current Medication List Current Medications: Active Medications Acetaminophen (Tylenol -) 650 mg PO Q6H PRN PRN Reason: FEVER Last Admin: 06/27/18 22:02 Dose: 650 mg Aspirin (Ecotrin -) 81 mg PO DAILY [facility] Last Admin: 06/27/18 10:06 Dose: 81 mg Finasteride (Proscar -) 5 mg PO DAILY [facility] Last Admin: 06/27/18 10:06 Dose: 5 mg Heparin Sodium (Porcine) (Heparin -) 5,000 unit SQ BID [facility] Last Admin: 06/27/18 21:54 Dose: 5,000 unit Ertapenem 1 gm/ Sodium (Chloride) 100 mls @ 200 mls/hr IVPB DAILY [facility] Last Admin: 06/27/18 19:00 Dose: 200 mls/hr Insulin Aspart (Novolog Vial Sliding Scale -) 1 vial SQ ACHS [facility]; Protocol Last Admin: 06/27/18 21:53 Dose: 2 units Metformin HCl (Glucophage -) 1,000 mg PO BIDAC [facility] Last Admin: 06/27/18 16:32 Dose: 1,000 mg Metoclopramide HCl (Reglan -) 5 mg PO BID PRN PRN Reason: NAUSEA Metoprolol Succinate (Toprol Xl -) 100 mg PO DAILY [facility] Last Admin: 06/27/18 10:06 Dose: 100 mg Multivitamins/Minerals (Theragran-M) 1 each PO DAILY [facility] Last Admin: 06/27/18 10:06 Dose: 1 each Nifedipine (Procardia Xl -) 30 mg PO DAILY [facility] Last Admin: 06/27/18 10:06 Dose: 30 mg Tamsulosin HCl (Flomax -) 0.4 mg PO DAILY@0830 [facility] Last Admin: 06/27/18 08:25 Dose: 0.4 mg Zolpidem Tartrate (Ambien -) 5 mg PO HS PRN PRN Reason: INSOMNIA Last Admin: 06/27/18 22:02 Dose: 5 mg - Objective Vital Signs: Vital Signs Temperature 97.8 F 06/27/18 16:30 Pulse Rate 85 06/27/18 16:30 Respiratory Rate 18 06/27/18 16:30 Blood Pressure 128/84 06/27/18 16:30 O2 Sat by Pulse Oximetry (%) 98 06/27/18 09:00 Labs: CBC, BMP 06/27/18 06:30 09/11/18 06:30 INR, PTT INR 1.33 (0.83-1.09) H 06/25/18 11:00 Problem List - Problems (1) UTI (urinary tract infection) Code(s): N39.0 - URINARY TRACT INFECTION, SITE NOT SPECIFIED (2) Bladder cancer Code(s): C67.9 - MALIGNANT NEOPLASM OF BLADDER, UNSPECIFIED (3) Anemia Code(s): D64.9 - ANEMIA, UNSPECIFIED (4) BPH (benign prostatic hyperplasia) Code(s): N40.0 - BENIGN PROSTATIC HYPERPLASIA WITHOUT LOWER URINRY TRACT SYMP (5) Diabetes Code(s): E11.9 - TYPE 2 DIABETES MELLITUS WITHOUT COMPLICATIONS (6) HLD (hyperlipidemia) Code(s): E78.5 - HYPERLIPIDEMIA, UNSPECIFIED (7) Hypertension Code(s): I10 - ESSENTIAL (PRIMARY) HYPERTENSION Qualifiers: Hypertension type: other secondary hypertension Qualified Code(s): I15.8 - Other secondary hypertension
[2018-06-28] MEDS: ACETAMINOPHEN 325 MG TABLET (FP) PO PRN ×2 (03:12→23:33)
[2018-06-28] MEDS: INSULIN SLIDING SCALE (NOVOLOG) 1 VIAL SQ SCH ×4 (06:17→21:57)
[2018-06-28] MEDS: metFORMIN HCL 500 MG TABLET (FP) PO SCH ×2 (06:21→18:23)
[2018-06-28 07:03] LABS: BASO % 0.7 % (0-2.0); EOS % 1.3 % (0-4.5); HEMATOCRIT 24.5 % (35.4-49); LYMPH % 12.8 % (8-40); MCH 22.7 pg (25.7-33.7); MCHC 32.6 g/dl (32.0-35.9); MEAN CELL VOLUME 69.8 fl (80-96); MEAN PLT VOLUME 9.8 fl (7.5-11.1); MONO % 7.1 % (3.8-10.2); NEUT % 78.1 % (42.8-82.8); PLATELET COUNT 153 K/MM3 (134-434); RBC 3.51 M/mm3 (4.00-5.60); RDW 22.2 % (11.9-15.9); WHITE BLOOD COUNT 5.6 K/mm3 (4.0-10.0)
[2018-06-28 08:00] LABS: CHLORIDE 104 mmol/L (98-107); POTASSIUM 3.4 mmol/L (3.5-5.1); SODIUM 139 mmol/L (136-145)
[2018-06-28 08:06] LABS: ALBUMIN 2.9 g/dl (3.4-5.0); ALK PHOS 372 U/L (45-117); ANION GAP 8 MMOL/L (8-16); BILIRUBIN,TOTAL 1.1 mg/dL (0.2-1.0); BLOOD UREA NITROGEN 15 mg/dL (7-18); CALCIUM 8.3 mg/dL (8.5-10.1); CO2 27 mmol/L (21-32); CREATININE 0.7 mg/dL (0.7-1.3); GLUCOSE,RANDOM 115 mg/dL (74-106); SGOT/AST 32 U/L (15-37); SGPT/ALT 46 U/L (12-78); TOT PROT 6.1 g/dl (6.4-8.2)
[2018-06-28] MEDS: ERTAPENEM SODIUM 1 GM in SODIUM CHLORIDE 100 ML IVPB SCH (11:01)
[2018-06-28] MEDS: HEPARIN NA (PORCINE) 5,000 UNITS/ML 1ML VIAL SQ SCH ×2 (11:02→21:46)
[2018-06-28] MEDS: ASPIRIN COATED 81 MG TABLET.EC PO SCH (11:03)
[2018-06-28] MEDS: MULTIVITAMINS THER W-MINERALS COMBO TABLET (FP) PO SCH (11:03)
[2018-06-28] MEDS: FINASTERIDE 5 MG TABLET (FP) PO SCH (11:03)
[2018-06-28] MEDS: TAMSULOSIN HCL 0.4 MG CAP.ER.24H (FP) PO SCH (11:04)
[2018-06-28] MEDS: NIFEdipine E.R. 30 MG TABLET (FP) PO SCH (11:06)
[2018-06-28] MEDS ORDERED: INSULIN (NOVOLOG) ASPART 100 UNITS/ML 10ML VIAL ONE ×2 (11:26→17:52)
--- NOTE | 2018-06-28 13:54 | PN ---
Progress Note, Physician History of Present Illness: Pt is alert, afebrile. States he feels well and has no specific complaints. Rahman catheter was placed. - Current Medication List Current Medications: Active Medications Acetaminophen (Tylenol -) 650 mg PO Q6H PRN PRN Reason: FEVER Last Admin: 06/28/18 03:12 Dose: 650 mg Aspirin (Ecotrin -) 81 mg PO DAILY [facility] Last Admin: 06/28/18 11:03 Dose: 81 mg Finasteride (Proscar -) 5 mg PO DAILY [facility] Last Admin: 06/28/18 11:03 Dose: 5 mg Heparin Sodium (Porcine) (Heparin -) 5,000 unit SQ BID [facility] Last Admin: 06/28/18 11:02 Dose: 5,000 unit Ertapenem 1 gm/ Sodium (Chloride) 100 mls @ 200 mls/hr IVPB DAILY [facility] Last Admin: 06/28/18 11:01 Dose: 200 mls/hr Insulin Aspart (Novolog Vial Sliding Scale -) 1 vial SQ ACHS [facility]; Protocol Last Admin: 06/28/18 13:32 Dose: Not Given Metformin HCl (Glucophage -) 1,000 mg PO BIDAC [facility] Last Admin: 06/28/18 06:21 Dose: 1,000 mg Metoclopramide HCl (Reglan -) 5 mg PO BID PRN PRN Reason: NAUSEA Metoprolol Succinate (Toprol Xl -) 100 mg PO DAILY [facility] Last Admin: 06/28/18 11:04 Dose: 100 mg Multivitamins/Minerals (Theragran-M) 1 each PO DAILY [facility] Last Admin: 06/28/18 11:03 Dose: 1 each Nifedipine (Procardia Xl -) 30 mg PO DAILY [facility] Last Admin: 06/28/18 11:06 Dose: 30 mg Tamsulosin HCl (Flomax -) 0.4 mg PO DAILY@0830 [facility] Last Admin: 06/28/18 11:04 Dose: 0.4 mg Zolpidem Tartrate (Ambien -) 5 mg PO HS PRN PRN Reason: INSOMNIA Last Admin: 06/27/18 22:02 Dose: 5 mg - Objective Vital Signs: Vital Signs Temperature 97.9 F 06/28/18 09:54 Pulse Rate 78 06/28/18 09:54 Respiratory Rate 14 06/28/18 09:54 Blood Pressure 136/80 06/28/18 09:54 O2 Sat by Pulse Oximetry (%) 98 06/27/18 21:00 Constitutional: Yes: No Distress, Calm Cardiovascular: Yes: Regular Rate and Rhythm Respiratory: Yes: CTA Bilaterally Gastrointestinal: Yes: Normal Bowel Sounds, Soft Genitourinary: Yes: Other (rahman catheter) Musculoskeletal: Yes: WNL Extremities: Yes: WNL Integumentary: Yes: WNL Neurological: Yes: Alert, Oriented Labs: CBC, BMP 06/28/18 06:30 06/28/18 06:30 INR, PTT INR 1.33 (0.83-1.09) H 06/25/18 11:00 Microbiology 06/25/18 11:00 Blood - Peripheral Venous Blood Culture - Preliminary NO GROWTH OBTAINED AFTER 72 HOURS, INCUBATION TO CONTINUE FOR 2 DAYS. 06/25/18 11:00 Blood - Peripheral Venous Blood Culture - Final Escherichia Coli [facility] Integrated [facility] 06/26/18 20:30 Blood - Peripheral Venous Blood Culture - Preliminary NO GROWTH OBTAINED AFTER 24 HOURS, INCUBATION TO CONTINUE FOR 4 DAYS. 06/26/18 20:00 Blood - Peripheral Venous Blood Culture - Preliminary NO GROWTH OBTAINED AFTER 24 HOURS, INCUBATION TO CONTINUE FOR 4 DAYS. 06/25/18 13:00 Urine - Urine Clean Catch Urine Culture - Final Escherichia Coli Esbl Integrated Special[facility] Problem List - Problems (1) Anemia Code(s): D64.9 - ANEMIA, UNSPECIFIED (2) Bladder cancer Code(s): C67.9 - MALIGNANT NEOPLASM OF BLADDER, UNSPECIFIED (3) Sepsis Code(s): A41.9 - SEPSIS, UNSPECIFIED ORGANISM Qualifiers: Sepsis type: sepsis due to unspecified organism Qualified Code(s): A41.9 - Sepsis, unspecified organism (4) UTI (urinary tract infection) Code(s): N39.0 - URINARY TRACT INFECTION, SITE NOT SPECIFIED (5) KARTHIKEYAN (acute kidney injury) Code(s): N17.9 - ACUTE KIDNEY FAILURE, UNSPECIFIED (6) BPH (benign prostatic hyperplasia) Code(s): N40.0 - BENIGN PROSTATIC HYPERPLASIA WITHOUT LOWER URINRY TRACT SYMP (7) Diabetes Code(s): E11.9 - TYPE 2 DIABETES MELLITUS WITHOUT COMPLICATIONS (8) Fever Code(s): R50.9 - FEVER, UNSPECIFIED Qualifiers: Fever type: unspecified Qualified Code(s): R50.9 - Fever, unspecified (9) HLD (hyperlipidemia) Code(s): E78.5 - HYPERLIPIDEMIA, UNSPECIFIED (10) Hematuria Code(s): R31.9 - HEMATURIA, UNSPECIFIED Qualifiers: Hematuria type: gross Qualified Code(s): R31.0 - Gross hematuria (11) Hydronephrosis Code(s): N13.30 - UNSPECIFIED HYDRONEPHROSIS Assessment/Plan 78 y.o. male with PMH of Bladder CA with metastasis to liver/bone on chemotherapy, b/l hydronephrosis s/p stent and b/l nephrostomy (recently removed ), hx of previous UTIs, DM, HTN, HLD, anemia presenting with dysuria, fever, chills, leukocytosis. Records/labs/imaging reviewed. ESBL + E. coli UTI and Bacteremia Sepsis Metastatic Bladder CA on chemotherapy DM BPH/ urinary retention - s/p rahman insertion B/L hydronephrosis - s/p recent removal of nephrostomies -- continue Ertapenem x 12 more doses -- latest blood culture no growth 24hrs, cont. f/u -- chemotherapy on hold for now -- continue monitor temps, currently afebrile -- Heme/Oncology followup, follow up pt with stable vitals, afebrile at this time
--- NOTE | 2018-06-28 16:56 | PN ---
Progress Note (short form) - Note Progress Note: Patient seen and examined Seen by Torri On ertapenem for ESBL-E.coli Offers no specific complaints Last Vital Signs Temp Pulse Resp BP Pulse Ox 99.9 F H 88 20 139/71 98 06/28/18 16:46 06/28/18 16:46 06/28/18 16:46 06/28/18 16:46 06/28/18 09:00 HEENT: FLETCHER, EOM Intact Oropharynx: No thrush, No mucositis Cor: RSR, No murmurs, No gallops Lungs: Clear to P&A Abd: Soft, Normal bowel sounds, No organomegaly Ext:No significant edema Skin: No rashes, Integument intact Galarza catheter-clear urine CBC, BMP 06/28/18 06:30 06/28/18 06:30 Current Medications Generic Name Dose Route Start Last Admin Trade Name Freq PRN Reason Stop Dose Admin Acetaminophen 650 mg 06/25/18 22:48 06/28/18 03:12 Tylenol - PO 650 mg Q6H PRN Administration FEVER Aspirin 81 mg 06/26/18 10:00 06/28/18 11:03 Ecotrin - PO 81 mg DAILY [facility]IT Administration Finasteride 5 mg 06/26/18 10:00 06/28/18 11:03 Proscar - PO 5 mg DAILY [facility]IT Administration Heparin Sodium (Porcine) 5,000 unit 06/26/18 10:00 06/28/18 11:02 Heparin - SQ 5,000 unit BID LIT Administration Ertapenem 1 gm/ Sodium 100 mls @ 200 mls/hr 06/27/18 15:45 06/28/18 11:01 Chloride IVPB 200 mls/hr DAILY [facility]IT Administration Insulin Aspart 1 vial 06/26/18 07:00 06/28/18 13:32 Novolog Vial Sliding Scale - SQ Not Given ACHS [facility] Protocol Metformin HCl 1,000 mg 06/26/18 07:00 06/28/18 06:21 Glucophage - PO 1,000 mg BIDAC LIT Administration Metoclopramide HCl 5 mg 06/25/18 22:45 Reglan - PO BID PRN NAUSEA Metoprolol Succinate 100 mg 06/26/18 10:00 06/28/18 11:04 Toprol Xl - PO 100 mg DAILY [facility]IT Administration Multivitamins/Minerals 1 each 06/26/18 10:00 06/28/18 11:03 Theragran-M PO 1 each DAILY [facility]IT Administration Nifedipine 30 mg 06/26/18 10:00 06/28/18 11:06 Procardia Xl - PO 30 mg DAILY [facility]IT Administration Tamsulosin HCl 0.4 mg 06/26/18 08:30 06/28/18 11:04 Flomax - PO 0.4 mg DAILY@0830 LIT Administration Zolpidem Tartrate 5 mg 06/25/18 22:45 06/27/18 22:02 Ambien - PO 5 mg HS PRN Administration INSOMNIA Impression: ESBL-E.Coli on ertapenem Metastatic bladder ca chemotherapy being held Anemia Hypokalemia Plan; Continue antibiotics per ID Chemotherapy being held Monitor CBC Replete K+
[2018-06-28] MEDS ORDERED: POTASSIUM CHLORIDE TABS 20 MEQ TABLET.ER (FP) PO ONE (16:57)
[2018-06-28] MEDS ORDERED: PT OWN MED DRAWER 7, Y5N ONE (18:20)
--- NOTE | 2018-06-28 23:46 | PN ---
Progress Note, Physician - Current Medication List Current Medications: Active Medications Acetaminophen (Tylenol -) 650 mg PO Q6H PRN PRN Reason: FEVER Last Admin: 06/28/18 23:33 Dose: 650 mg Aspirin (Ecotrin -) 81 mg PO DAILY [facility] Last Admin: 06/28/18 11:03 Dose: 81 mg Finasteride (Proscar -) 5 mg PO DAILY [facility] Last Admin: 06/28/18 11:03 Dose: 5 mg Heparin Sodium (Porcine) (Heparin -) 5,000 unit SQ BID [facility] Last Admin: 06/28/18 21:46 Dose: 5,000 unit Ertapenem 1 gm/ Sodium (Chloride) 100 mls @ 200 mls/hr IVPB DAILY [facility] Last Admin: 06/28/18 11:01 Dose: 200 mls/hr Insulin Aspart (Novolog Vial Sliding Scale -) 1 vial SQ ACHS [facility]; Protocol Last Admin: 06/28/18 21:57 Dose: Not Given Metformin HCl (Glucophage -) 1,000 mg PO BIDAC [facility] Last Admin: 06/28/18 18:23 Dose: 1,000 mg Metoclopramide HCl (Reglan -) 5 mg PO BID PRN PRN Reason: NAUSEA Metoprolol Succinate (Toprol Xl -) 100 mg PO DAILY [facility] Last Admin: 06/28/18 11:04 Dose: 100 mg Multivitamins/Minerals (Theragran-M) 1 each PO DAILY [facility] Last Admin: 06/28/18 11:03 Dose: 1 each Nifedipine (Procardia Xl -) 30 mg PO DAILY [facility] Last Admin: 06/28/18 11:06 Dose: 30 mg Tamsulosin HCl (Flomax -) 0.4 mg PO DAILY@0830 [facility] Last Admin: 06/28/18 11:04 Dose: 0.4 mg - Objective Vital Signs: Vital Signs Temperature 98.6 F 06/28/18 22:20 Pulse Rate 84 06/28/18 22:20 Respiratory Rate 15 06/28/18 22:20 Blood Pressure 120/85 06/28/18 22:20 O2 Sat by Pulse Oximetry (%) 98 06/28/18 09:00 Labs: CBC, BMP 06/28/18 06:30 06/28/18 06:30 INR, PTT INR 1.33 (0.83-1.09) H 06/25/18 11:00 Problem List - Problems (1) UTI (urinary tract infection) Code(s): N39.0 - URINARY TRACT INFECTION, SITE NOT SPECIFIED (2) Bladder cancer Code(s): C67.9 - MALIGNANT NEOPLASM OF BLADDER, UNSPECIFIED (3) Anemia Code(s): D64.9 - ANEMIA, UNSPECIFIED (4) BPH (benign prostatic hyperplasia) Code(s): N40.0 - BENIGN PROSTATIC HYPERPLASIA WITHOUT LOWER URINRY TRACT SYMP (5) Diabetes Code(s): E11.9 - TYPE 2 DIABETES MELLITUS WITHOUT COMPLICATIONS (6) HLD (hyperlipidemia) Code(s): E78.5 - HYPERLIPIDEMIA, UNSPECIFIED (7) Hypertension Code(s): I10 - ESSENTIAL (PRIMARY) HYPERTENSION Qualifiers: Hypertension type: other secondary hypertension Qualified Code(s): I15.8 - Other secondary hypertension
[2018-06-29] MEDS: ACETAMINOPHEN 325 MG TABLET (FP) PO PRN ×2 (06:19→21:58)
[2018-06-29] MEDS: metFORMIN HCL 500 MG TABLET (FP) PO SCH ×2 (06:19→17:16)
[2018-06-29 07:59] LABS: BASO % 1.3 % (0-2.0); EOS % 1.6 % (0-4.5); HEMATOCRIT 25.8 % (35.4-49); HEMOGLOBIN 8.5 GM/dL (11.7-16.9); LYMPH % 14.3 % (8-40); MCH 22.9 pg (25.7-33.7); MCHC 32.8 g/dl (32.0-35.9); MEAN CELL VOLUME 69.8 fl (80-96); MEAN PLT VOLUME 9.1 fl (7.5-11.1); MONO % 8.8 % (3.8-10.2); PLATELET COUNT 130 K/MM3 (134-434); RBC 3.69 M/mm3 (4.00-5.60); RDW 22.8 % (11.9-15.9); WHITE BLOOD COUNT 5.2 K/mm3 (4.0-10.0)
[2018-06-29 09:32] LABS: ALBUMIN 2.9 g/dl (3.4-5.0); ANION GAP 9 MMOL/L (8-16); BLOOD UREA NITROGEN 14 mg/dL (7-18); CALCIUM 8.5 mg/dL (8.5-10.1); CHLORIDE 104 mmol/L (98-107); CO2 27 mmol/L (21-32); GLUCOSE,RANDOM 122 mg/dL (74-106); MAGNESIUM 1.9 mg/dL (1.8-2.4); POTASSIUM 3.6 mmol/L (3.5-5.1); SODIUM 140 mmol/L (136-145)
[2018-06-29] MEDS: INSULIN SLIDING SCALE (NOVOLOG) 1 VIAL SQ SCH ×4 (09:34→22:03)
[2018-06-29 09:38] LABS: ALK PHOS 413 U/L (45-117); BILIRUBIN,TOTAL 0.9 mg/dL (0.2-1.0); CREATININE 0.7 mg/dL (0.7-1.3); SGOT/AST 26 U/L (15-37); SGPT/ALT 39 U/L (13-61); TOT PROT 6.3 g/dl (6.4-8.2)
[2018-06-29] MEDS ORDERED: LIDOCAINE HCL 2% JELLY (5 ML/TUBE) TP PRN (09:48)
[2018-06-29] MEDS ORDERED: PT OWN MED DRAWER 7, Y5N ONE (10:43)
[2018-06-29] MEDS: NIFEdipine E.R. 30 MG TABLET (FP) PO SCH (10:49)
[2018-06-29] MEDS: HEPARIN NA (PORCINE) 5,000 UNITS/ML 1ML VIAL SQ SCH ×2 (10:49→21:57)
[2018-06-29] MEDS: ERTAPENEM SODIUM 1 GM in SODIUM CHLORIDE 100 ML IVPB SCH (10:49)
[2018-06-29] MEDS: MULTIVITAMINS THER W-MINERALS COMBO TABLET (FP) PO SCH (10:49)
[2018-06-29] MEDS: ASPIRIN COATED 81 MG TABLET.EC PO SCH (10:49)
[2018-06-29] MEDS: TAMSULOSIN HCL 0.4 MG CAP.ER.24H (FP) PO SCH (10:49)
[2018-06-29] MEDS: FINASTERIDE 5 MG TABLET (FP) PO SCH (10:49)
--- NOTE | 2018-06-29 16:21 | PN ---
Progress Note, Physician History of Present Illness: Pt is alert, without distress. has no new complaints. Tmax 99.9F, currently afebrile. - Current Medication List Current Medications: Active Medications Acetaminophen (Tylenol -) 650 mg PO Q6H PRN PRN Reason: FEVER Last Admin: 06/29/18 06:19 Dose: 650 mg Aspirin (Ecotrin -) 81 mg PO DAILY [facility] Last Admin: 06/29/18 10:49 Dose: 81 mg Finasteride (Proscar -) 5 mg PO DAILY [facility] Last Admin: 06/29/18 10:49 Dose: 5 mg Heparin Sodium (Porcine) (Heparin -) 5,000 unit SQ BID [facility] Last Admin: 06/29/18 10:49 Dose: 5,000 unit Ertapenem 1 gm/ Sodium (Chloride) 100 mls @ 200 mls/hr IVPB DAILY [facility] Last Admin: 06/29/18 10:49 Dose: 200 mls/hr Insulin Aspart (Novolog Vial Sliding Scale -) 1 vial SQ ACHS [facility]; Protocol Last Admin: 06/29/18 12:11 Dose: Not Given Lidocaine HCl (Xylocaine 2% Jelly) 1 applic TP BID PRN PRN Reason: DISCOMFORT Last Admin: 06/29/18 10:51 Dose: 1 applic Metformin HCl (Glucophage -) 1,000 mg PO BIDAC [facility] Last Admin: 06/29/18 06:19 Dose: 1,000 mg Metoclopramide HCl (Reglan -) 5 mg PO BID PRN PRN Reason: NAUSEA Metoprolol Succinate (Toprol Xl -) 100 mg PO DAILY [facility] Last Admin: 06/29/18 10:49 Dose: 100 mg Multivitamins/Minerals (Theragran-M) 1 each PO DAILY [facility] Last Admin: 06/29/18 10:49 Dose: 1 each Nifedipine (Procardia Xl -) 30 mg PO DAILY [facility] Last Admin: 06/29/18 10:49 Dose: 30 mg Tamsulosin HCl (Flomax -) 0.4 mg PO DAILY@0830 [facility] Last Admin: 06/29/18 10:49 Dose: 0.4 mg Zolpidem Tartrate (Ambien -) 5 mg PO HS PRN PRN Reason: INSOMNIA - Objective Vital Signs: Vital Signs Temperature 98.8 F 06/29/18 13:50 Pulse Rate 81 06/29/18 13:50 Respiratory Rate 18 13/18 13:50 Blood Pressure 145/72 06/29/18 13:50 O2 Sat by Pulse Oximetry (%) 98 06/28/18 21:00 Constitutional: Yes: No Distress, Calm Cardiovascular: Yes: Regular Rate and Rhythm Respiratory: Yes: CTA Bilaterally Gastrointestinal: Yes: Normal Bowel Sounds, Soft Genitourinary: Yes: Rahman Present (cloudy yellow urine) Extremities: Yes: WNL Integumentary: Yes: WNL Neurological: Yes: Alert, Oriented Labs: CBC, BMP 06/29/18 06:20 06/29/18 06:20 INR, PTT INR 1.33 (0.83-1.09) H 06/25/18 11:00 Problem List - Problems (1) Anemia Code(s): D64.9 - ANEMIA, UNSPECIFIED (2) Bladder cancer Code(s): C67.9 - MALIGNANT NEOPLASM OF BLADDER, UNSPECIFIED (3) Sepsis Code(s): A41.9 - SEPSIS, UNSPECIFIED ORGANISM Qualifiers: Sepsis type: sepsis due to unspecified organism Qualified Code(s): A41.9 - Sepsis, unspecified organism (4) UTI (urinary tract infection) Code(s): N39.0 - URINARY TRACT INFECTION, SITE NOT SPECIFIED (5) KARTHIKEYAN (acute kidney injury) Code(s): N17.9 - ACUTE KIDNEY FAILURE, UNSPECIFIED (6) BPH (benign prostatic hyperplasia) Code(s): N40.0 - BENIGN PROSTATIC HYPERPLASIA WITHOUT LOWER URINRY TRACT SYMP (7) Diabetes Code(s): E11.9 - TYPE 2 DIABETES MELLITUS WITHOUT COMPLICATIONS (8) Fever Code(s): R50.9 - FEVER, UNSPECIFIED Qualifiers: Fever type: unspecified Qualified Code(s): R50.9 - Fever, unspecified (9) HLD (hyperlipidemia) Code(s): E78.5 - HYPERLIPIDEMIA, UNSPECIFIED (10) Hematuria Code(s): R31.9 - HEMATURIA, UNSPECIFIED Qualifiers: Hematuria type: gross Qualified Code(s): R31.0 - Gross hematuria (11) Hydronephrosis Code(s): N13.30 - UNSPECIFIED HYDRONEPHROSIS Assessment/Plan 78 y.o. male with PMH of Bladder CA with metastasis to liver/bone on chemotherapy, b/l hydronephrosis s/p stent and b/l nephrostomy (recently removed ), hx of previous UTIs, DM, HTN, HLD, anemia presenting with dysuria, fever, chills, leukocytosis. Records/labs/imaging reviewed. ESBL + E. coli UTI and Bacteremia Sepsis Metastatic Bladder CA on chemotherapy DM BPH/ urinary retention - s/p rahman insertion B/L hydronephrosis - s/p recent removal of nephrostomies -- continue Ertapenem x 11 more days -- monitor temps closely -- latest blood culture no growth thus far -- chemotherapy on hold for now -- Heme/Oncology followup, following pt currently stable, afebrile
--- NOTE | 2018-06-29 21:45 | PN ---
Progress Note, Physician - Current Medication List Current Medications: Active Medications Acetaminophen (Tylenol -) 650 mg PO Q6H PRN PRN Reason: FEVER Last Admin: 06/29/18 06:19 Dose: 650 mg Aspirin (Ecotrin -) 81 mg PO DAILY [facility] Last Admin: 06/29/18 10:49 Dose: 81 mg Finasteride (Proscar -) 5 mg PO DAILY [facility] Last Admin: 06/29/18 10:49 Dose: 5 mg Heparin Sodium (Porcine) (Heparin -) 5,000 unit SQ BID [facility] Last Admin: 06/29/18 10:49 Dose: 5,000 unit Ertapenem 1 gm/ Sodium (Chloride) 100 mls @ 200 mls/hr IVPB DAILY [facility] Last Admin: 06/29/18 10:49 Dose: 200 mls/hr Insulin Aspart (Novolog Vial Sliding Scale -) 1 vial SQ ACHS [facility]; Protocol Last Admin: 06/29/18 17:18 Dose: Not Given Lidocaine HCl (Xylocaine 2% Jelly) 1 applic TP BID PRN PRN Reason: DISCOMFORT Last Admin: 06/29/18 10:51 Dose: 1 applic Metformin HCl (Glucophage -) 1,000 mg PO BIDAC [facility] Last Admin: 06/29/18 17:16 Dose: 1,000 mg Metoclopramide HCl (Reglan -) 5 mg PO BID PRN PRN Reason: NAUSEA Metoprolol Succinate (Toprol Xl -) 100 mg PO DAILY [facility] Last Admin: 06/29/18 10:49 Dose: 100 mg Multivitamins/Minerals (Theragran-M) 1 each PO DAILY [facility] Last Admin: 06/29/18 10:49 Dose: 1 each Nifedipine (Procardia Xl -) 30 mg PO DAILY [facility] Last Admin: 06/29/18 10:49 Dose: 30 mg Tamsulosin HCl (Flomax -) 0.4 mg PO DAILY@0830 [facility] Last Admin: 06/29/18 10:49 Dose: 0.4 mg Zolpidem Tartrate (Ambien -) 5 mg PO HS PRN PRN Reason: INSOMNIA - Objective Vital Signs: Vital Signs Temperature 98.8 F 06/29/18 13:50 Pulse Rate 81 06/29/18 13:50 Respiratory Rate 18 06/29/18 13:50 Blood Pressure 145/72 06/29/18 13:50 O2 Sat by Pulse Oximetry (%) 98 06/29/18 09:00 Neck: Yes: WNL, Supple Cardiovascular: Yes: WNL, Regular Rate and Rhythm Respiratory: Yes: WNL, Regular, CTA Bilaterally Gastrointestinal: Yes: WNL, Normal Bowel Sounds, Soft Labs: CBC, BMP 06/29/18 06:20 06/29/18 06:20 INR, PTT INR 1.33 (0.83-1.09) H 06/25/18 11:00 Problem List - Problems (1) UTI (urinary tract infection) Assessment/Plan: Cont IV Ertapenem for another 11 days Urine culture (+) for ESBL Spoke w/ ID and at this point would not recommend TURP Repeat blood cultures remain negative Code(s): N39.0 - URINARY TRACT INFECTION, SITE NOT SPECIFIED (2) Bladder cancer Assessment/Plan: Chemotx on hold due to urosepsis As per onco Code(s): C67.9 - MALIGNANT NEOPLASM OF BLADDER, UNSPECIFIED (3) Anemia Assessment/Plan: S/P transfusion 1 unit PRBC's Monitor H/H Code(s): D64.9 - ANEMIA, UNSPECIFIED (4) BPH (benign prostatic hyperplasia) Code(s): N40.0 - BENIGN PROSTATIC HYPERPLASIA WITHOUT LOWER URINRY TRACT SYMP (5) Diabetes Code(s): E11.9 - TYPE 2 DIABETES MELLITUS WITHOUT COMPLICATIONS (6) HLD (hyperlipidemia) Code(s): E78.5 - HYPERLIPIDEMIA, UNSPECIFIED (7) Hypertension Code(s): I10 - ESSENTIAL (PRIMARY) HYPERTENSION Qualifiers: Hypertension type: other secondary hypertension Qualified Code(s): I15.8 - Other secondary hypertension
[2018-06-29] MEDS: ZOLPIDEM TARTRATE 5 MG TABLET PO PRN (21:58)
--- NOTE | 2018-06-29 22:21 | PN ---
Progress Note (short form) - Note Progress Note: PAtient seen and examined Denies any complainths Last Vital Signs Temp Pulse Resp BP Pulse Ox 97.8 F 77 18 149/91 98 06/30/18 06:28 06/30/18 06:28 06/30/18 06:28 06/30/18 06:28 06/29/18 21:00 Cor: RSR, No murmurs, No gallops Lungs: Clear to P&A Abd: Soft, Normal bowel sounds, No organomegaly Ext:No significant edema Skin: No rashes, Integument intact Abnormal Lab Results 06/29/18 06/29/18 06:20 06:20 RBC 3.69 L Hgb 8.5 L Hct 25.8 L MCV 69.8 L MCH 22.9 L RDW 22.8 H Plt Count 130 L Random Glucose 122 H Alkaline Phosphatase 413 H D Total Protein 6.3 L Albumin 2.9 L Active Medications Generic Name Dose Route Start Last Admin Trade Name Freq PRN Reason Stop Dose Admin Acetaminophen 650 mg 06/25/18 22:48 06/30/18 05:37 Tylenol - PO 650 mg Q6H PRN Administration FEVER Aspirin 81 mg 06/26/18 10:00 06/29/18 10:49 Ecotrin - PO 81 mg DAILY [facility] Administration Finasteride 5 mg 06/26/18 10:00 06/29/18 10:49 Proscar - PO 5 mg DAILY [facility] Administration Heparin Sodium (Porcine) 5,000 unit 06/26/18 10:00 06/29/18 21:57 Heparin - SQ 5,000 unit BID [facility] Administration Ertapenem 1 gm/ Sodium 100 mls @ 200 mls/hr 06/27/18 15:45 06/29/18 10:49 Chloride IVPB 200 mls/hr DAILY [facility] Administration Insulin Aspart 1 vial 06/26/18 07:00 06/30/18 06:40 Novolog Vial Sliding Scale - SQ Not Given ACHS [facility] Protocol Lidocaine HCl 1 applic 06/29/18 09:48 06/29/18 10:51 Xylocaine 2% Jelly TP 1 applic BID PRN Administration DISCOMFORT Metformin HCl 1,000 mg 06/26/18 07:00 06/30/18 06:40 Glucophage - PO 1,000 mg BIDAC [facility]IT Administration Metoclopramide HCl 5 mg 06/25/18 22:45 Reglan - PO BID PRN NAUSEA Metoprolol Succinate 100 mg 06/26/18 10:00 06/29/18 10:49 Toprol Xl - PO 100 mg DAILY [facility] Administration Multivitamins/Minerals 1 each 06/26/18 10:00 06/29/18 10:49 Theragran-M PO 1 each DAILY [facility] Administration Nifedipine 30 mg 06/26/18 10:00 06/29/18 10:49 Procardia Xl - PO 30 mg DAILY [facility] Administration Tamsulosin HCl 0.4 mg 06/26/18 08:30 06/29/18 10:49 Flomax - PO 0.4 mg DAILY@0830 [facility] Administration Zolpidem Tartrate 5 mg 06/29/18 09:49 06/29/18 21:58 Ambien - PO 5 mg HS PRN Administration INSOMNIA A/P 78 y.o. male with PMH of metastatic bladder cancer, b/l hydronephrosis s/p stent and b/l nephrostomy (recently removed), hx of previous UTIs, DM, HTN, HLD , anemia presenting with dysuria, fever, chills, leukocytosis. Patient received C4 carboplatin and gemzar on 06/22/18 holding D8 gemzar UTI Sepsis Bacteremia Metastatic Bladder CA on gemzar/carboplatin Fever Leukocytosis - resolving KARTHIKEYAN DM BPH B/L hydronephrosis - s/p recent removal of nephrostomies On ertapenem For transfusion support as necessary for neupogen as necessary urology follow up
[2018-06-30] MEDS: ACETAMINOPHEN 325 MG TABLET (FP) PO PRN (05:37)
[2018-06-30] MEDS: metFORMIN HCL 500 MG TABLET (FP) PO SCH ×2 (06:40→17:09)
[2018-06-30] MEDS: INSULIN SLIDING SCALE (NOVOLOG) 1 VIAL SQ SCH ×4 (06:40→22:55)
[2018-06-30] MEDS: ASPIRIN COATED 81 MG TABLET.EC PO SCH (10:54)
[2018-06-30] MEDS: MULTIVITAMINS THER W-MINERALS COMBO TABLET (FP) PO SCH (10:54)
[2018-06-30] MEDS: ERTAPENEM SODIUM 1 GM in SODIUM CHLORIDE 100 ML IVPB SCH (10:55)
[2018-06-30] MEDS: HEPARIN NA (PORCINE) 5,000 UNITS/ML 1ML VIAL SQ SCH ×2 (10:55→22:55)
[2018-06-30] MEDS: TAMSULOSIN HCL 0.4 MG CAP.ER.24H (FP) PO SCH (10:55)
[2018-06-30] MEDS: NIFEdipine E.R. 30 MG TABLET (FP) PO SCH (10:55)
[2018-06-30] MEDS: FINASTERIDE 5 MG TABLET (FP) PO SCH (10:55)
--- NOTE | 2018-06-30 11:55 | PN ---
Physical Exam: SUBJECTIVE: Patient seen and examined at bedside feels well no complaints I saw patient ambulating this morning OBJECTIVE: Vital Signs Period Temp Pulse Resp BP Sys/Benjamin Pulse Ox Last 24 Hr 97.8 F-98.8 F 77-85 18-18 141-149/72-98 98 GENERAL: The patient is awake, alert, and fully oriented, in no acute distress. HEAD: Normal with no signs of trauma. ENT: moist mucous membranes. LUNGS: Breath sounds equal, clear to auscultation bilaterally HEART: Regular rate and rhythm, S1, S2 ABDOMEN: Soft, nontender, nondistended. : rahman in place with yellow urine draining EXTREMITIES: warm, well-perfused, no edema. NEUROLOGICAL: Cranial nerves II through XII grossly intact. Normal speech, gait WNL PSYCH: Normal mood, normal affect. SKIN: Warm, dry Laboratory Results - last 24 hr 06/29/18 06/29/18 06/29/18 12:04 17:15 22:01 POC Glucometer 141 125 147 06/30/18 06:36 POC Glucometer 142 Active Medications Generic Name Dose Route Start Last Admin Trade Name Freq PRN Reason Stop Dose Admin Acetaminophen 650 mg 06/25/18 22:48 06/30/18 05:37 Tylenol - PO 650 mg Q6H PRN Administration FEVER Aspirin 81 mg 06/26/18 10:00 06/30/18 10:54 Ecotrin - PO 81 mg DAILY [facility] Administration Finasteride 5 mg 06/26/18 10:00 06/30/18 10:55 Proscar - PO 5 mg DAILY [facility] Administration Heparin Sodium (Porcine) 5,000 unit 06/26/18 10:00 06/30/18 10:55 Heparin - SQ 5,000 unit BID [facility] Administration Ertapenem 1 gm/ Sodium 100 mls @ 200 mls/hr 06/27/18 15:45 06/30/18 10:55 Chloride IVPB 200 mls/hr DAILY [facility] Administration Insulin Aspart 1 vial 06/26/18 07:00 06/30/18 06:40 Novolog Vial Sliding Scale - SQ Not Given ACHS [facility] Protocol Lidocaine HCl 1 applic 06/29/18 09:48 06/29/18 10:51 Xylocaine 2% Jelly TP 1 applic BID PRN Administration DISCOMFORT Metformin HCl 1,000 mg 06/26/18 07:00 06/30/18 06:40 Glucophage - PO 1,000 mg BIDAC [facility] Administration Metoclopramide HCl 5 mg 06/25/18 22:45 Reglan - PO BID PRN NAUSEA Metoprolol Succinate 100 mg 06/26/18 10:00 06/30/18 10:54 Toprol Xl - PO 100 mg DAILY [facility] Administration Multivitamins/Minerals 1 each 06/26/18 10:00 06/30/18 10:54 Theragran-M PO 1 each DAILY [facility] Administration Nifedipine 30 mg 06/26/18 10:00 06/30/18 10:55 Procardia Xl - PO 30 mg DAILY [facility] Administration Tamsulosin HCl 0.4 mg 06/26/18 08:30 06/30/18 10:55 Flomax - PO 0.4 mg DAILY@0830 [facility] Administration Zolpidem Tartrate 5 mg 06/29/18 09:49 06/29/18 21:58 Ambien - PO 5 mg HS PRN Administration INSOMNIA ASSESSMENT/PLAN: 78M with multiple medical problems including HTN DM and bladder Ca presents to the hospital with fever chills urinary urgency and frequency. Bladder Ca: Patient to have Transurethral vaporization on tuesday07/03/18 urology on board oncology on board Hold chemotherapy continue flomax continue proscar UTI: ESBL continue Invanz ID following Bacteremia: ESBL as well continue invanz ID following HTN: continue procardia and metoprolol DM: continue metformin BGM Continue sliding scale Anemia: s/p 1 unit PRBCs hemoglobin 8.5 today - stable hematology following trend H/H BPH: continue proscar and flomax HLD: FEN: No IVF No electrolyte issues Diabetic/Na Controlled diet PPx: HSQ Ambulating Case discussed with Dr. Omalley Visit type - Emergency Visit Emergency Visit: Yes ED Registration Date: 06/25/18 Care time: The patient presented to the Emergency Department on the above date and was hospitalized for further evaluation of their emergent condition. - New Patient This patient is new to me today: Yes Date on this admission: 06/30/18 - Critical Care Critical Care patient: No
--- NOTE | 2018-06-30 12:28 | CONS ---
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 He is presently being followed by Dr. Manjarrez, medical oncologist, for chemotherapy. The patient has a history of high blood pressure, dyslipidemia, chronic renal failure, and severe prostatism. 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 The patient underwent bilateral percutaneous nephrostomies. After several courses of chemotherapy, a cystoscopy was performed. Bilateral retrograde pyelograms revealed bilateral hydroureteronephrosis. The patient underwent placement of a 24-cm 6-Pashto JJ stent on the right side as well as the left side. The bilateral percutaneous nephrostomy tubes were removed. The patient had a benign and uneventful postoperative course. Presently, he is admitted to the hospital with urinary retention and hematuria. The patient also had chills and weakness this morning. His last chemotherapy round was on Thursday, June 21, 2018. He also underwent Neupogen injections. The patient also presently appears in no apparent distress. He had previous urine cultures, which grew out Providencia Serratia as well as Enterococcus faecalis. Therefore, the patient was commenced on IV antibiotics as per Infectious Disease. His latest lab results revealed a white count of 5.3, hemoglobin 8.5, hematocrit 25.8, platelets 156. His PT 15, INR 1.33. BUN 14, creatinine 0.7. Random glucose 122. Liver enzymes were basically within normal limits except for an alkaline phosphatase of 413. Galarza catheter is in place. The urine is clear. PLAN: We will recommend a cystoscopy and possible vaporization of the prostate so the patient will be able to void naturally. ABELINO EASTMAN M.D. [id number]
--- NOTE | 2018-06-30 12:36 | PN ---
Teaching Attending Note Name of Resident: Karthikeyan Agustin ATTENDING PHYSICIAN STATEMENT I saw and evaluated the patient. I reviewed the resident's note and discussed the case with the resident. I agree with the resident's findings and plan as documented. SUBJECTIVE: Patient has no complaints. OBJECTIVE: Vital Signs Period Temp Pulse Resp BP Sys/Benjamin Pulse Ox Last 24 Hr 97.8 F-98.8 F 77-85 18-18 141-149/72-98 98 HEART: S1S2, RRR LUNGS: Clear ABDOMENL Soft, non-tender, non-distended, normal BS EXTREMITIES: No edema Laboratory Results - last 24 hr 06/29/18 06/29/18 06/29/18 12:04 17:15 22:01 POC Glucometer 141 125 147 06/30/18 06:36 POC Glucometer 142 Current Medications Generic Name Dose Route Start Last Admin Trade Name Freq PRN Reason Stop Dose Admin Acetaminophen 650 mg 06/25/18 22:48 06/30/18 05:37 Tylenol - PO 650 mg Q6H PRN Administration FEVER Aspirin 81 mg 06/26/18 10:00 06/30/18 10:54 Ecotrin - PO 81 mg DAILY LIT Administration Finasteride 5 mg 06/26/18 10:00 06/30/18 10:55 Proscar - PO 5 mg DAILY LIT Administration Heparin Sodium (Porcine) 5,000 unit 06/26/18 10:00 06/30/18 10:55 Heparin - SQ 5,000 unit BID LIT Administration Ertapenem 1 gm/ Sodium 100 mls @ 200 mls/hr 06/27/18 15:45 06/30/18 10:55 Chloride IVPB 200 mls/hr DAILY LIT Administration Insulin Aspart 1 vial 06/26/18 07:00 06/30/18 06:40 Novolog Vial Sliding Scale - SQ Not Given ACHS LIT Protocol Lidocaine HCl 1 applic 06/29/18 09:48 06/29/18 10:51 Xylocaine 2% Jelly TP 1 applic BID PRN Administration DISCOMFORT Metformin HCl 1,000 mg 06/26/18 07:00 06/30/18 06:40 Glucophage - PO 1,000 mg BIDAC LIT Administration Metoclopramide HCl 5 mg 06/25/18 22:45 Reglan - PO BID PRN NAUSEA Metoprolol Succinate 100 mg 06/26/18 10:00 06/30/18 10:54 Toprol Xl - PO 100 mg DAILY LIT Administration Multivitamins/Minerals 1 each 06/26/18 10:00 06/30/18 10:54 Theragran-M PO 1 each DAILY LIT Administration Nifedipine 30 mg 06/26/18 10:00 06/30/18 10:55 Procardia Xl - PO 30 mg DAILY LIT Administration Tamsulosin HCl 0.4 mg 06/26/18 08:30 06/30/18 10:55 Flomax - PO 0.4 mg DAILY@0830 LIT Administration Zolpidem Tartrate 5 mg 06/29/18 09:49 06/29/18 21:58 Ambien - PO 5 mg HS PRN Administration INSOMNIA ASSESSMENT AND PLAN: This is a 78 year old man with a history of HTN, hyperlipidemia, type 2 DM, BPH , anemia, metastatic bladder cancer who presented to the ED with fever, chills, urinary urgency and frequency. 1. Sepsis secondary to ESBL (+) E. coli UTI and bacteremia - Blood cultures 06/26 negative after 72 hrs - Patient afebrile, WBC improved - Continue Invanz 2. BPH with urinary retention - Cotinue Flomax, Proscar - Maintain Galarza catheter - Plan for TUVP 07/03 3. HTN - Continue Procardia XL, Toprol Xl 4. Type 2 DM - Continue metformin, Novolog sliding scale 5. Acute blood loss anemia on anemia secondary to chronic illness - Transfused 1 unit PRBCs - Hemoglobin stable 6. Metastatic bladder cancer - Gemzar, Carboplatin on hold 7. Hyperlipidemia
--- NOTE | 2018-06-30 12:42 | PN ---
Progress Note (short form) - Note Progress Note: Patient seen and examined Prior note reviewed and concurred with Procedure with TU"vaporization" for Tuesday Continuing on ertapenem Last Vital Signs Temp Pulse Resp BP Pulse Ox 98.2 F 85 18 141/98 98 06/30/18 10:00 06/30/18 10:00 06/30/18 10:00 06/30/18 10:00 06/29/18 21:00 HEENT: FLETCHER, EOM Intact Oropharynx: No thrush, No mucositis Cor: RSR, No murmurs, No gallops Lungs: Clear to P&A Abd: Soft, Normal bowel sounds, No organomegaly Ext:No significant edema Skin: No rashes, Integument intact Galarza draining clear urine CBC, BMP 06/29/18 06:20 06/29/18 06:20 Current Medications Generic Name Dose Route Start Last Admin Trade Name Freq PRN Reason Stop Dose Admin Acetaminophen 650 mg 06/25/18 22:48 06/30/18 05:37 Tylenol - PO 650 mg Q6H PRN Administration FEVER Aspirin 81 mg 06/26/18 10:00 06/30/18 10:54 Ecotrin - PO 81 mg DAILY LIT Administration Finasteride 5 mg 06/26/18 10:00 06/30/18 10:55 Proscar - PO 5 mg DAILY LIT Administration Heparin Sodium (Porcine) 5,000 unit 06/26/18 10:00 06/30/18 10:55 Heparin - SQ 5,000 unit BID LIT Administration Ertapenem 1 gm/ Sodium 100 mls @ 200 mls/hr 06/27/18 15:45 06/30/18 10:55 Chloride IVPB 200 mls/hr DAILY LIT Administration Insulin Aspart 1 vial 06/26/18 07:00 06/30/18 12:24 Novolog Vial Sliding Scale - SQ Not Given ACHS LIT Protocol Lidocaine HCl 1 applic 06/29/18 09:48 06/29/18 10:51 Xylocaine 2% Jelly TP 1 applic BID PRN Administration DISCOMFORT Metformin HCl 1,000 mg 06/26/18 07:00 06/30/18 06:40 Glucophage - PO 1,000 mg BIDAC LIT Administration Metoclopramide HCl 5 mg 06/25/18 22:45 Reglan - PO BID PRN NAUSEA Metoprolol Succinate 100 mg 06/26/18 10:00 06/30/18 10:54 Toprol Xl - PO 100 mg DAILY LIT Administration Multivitamins/Minerals 1 each 06/26/18 10:00 06/30/18 10:54 Theragran-M PO 1 each DAILY LIT Administration Nifedipine 30 mg 06/26/18 10:00 06/30/18 10:55 Procardia Xl - PO 30 mg DAILY LIT Administration Tamsulosin HCl 0.4 mg 06/26/18 08:30 06/30/18 10:55 Flomax - PO 0.4 mg DAILY@0830 LIT Administration Zolpidem Tartrate 5 mg 06/29/18 09:49 06/29/18 21:58 Ambien - PO 5 mg HS PRN Administration INSOMNIA Metastatic Bladder ca Chemotherapy with carboplatinum and gemzar Received day 1 of carbo/gem Omitted day 8 in view of sepsis For procedure on Tuesday - need OK from ID Anemia- chronic disease s/p bilateral nephrostomies - now removed Plan: monitor CBC Continue antibiotics Chemotherapy on hold procedure on Tuesday On ASA ?? per --OK for surgery
--- NOTE | 2018-06-30 17:38 | PN ---
Progress Note, Physician History of Present Illness: Pt remains afebrile, alert. No new specific complaints. procedure postponed until Tuesday. - Current Medication List Current Medications: Active Medications Acetaminophen (Tylenol -) 650 mg PO Q6H PRN PRN Reason: FEVER Last Admin: 06/30/18 05:37 Dose: 650 mg Finasteride (Proscar -) 5 mg PO DAILY [facility] Last Admin: 06/30/18 10:55 Dose: 5 mg Heparin Sodium (Porcine) (Heparin -) 5,000 unit SQ BID LIT Last Admin: 06/30/18 10:55 Dose: 5,000 unit Ertapenem 1 gm/ Sodium (Chloride) 100 mls @ 200 mls/hr IVPB DAILY [facility] Last Admin: 06/30/18 10:55 Dose: 200 mls/hr Insulin Aspart (Novolog Vial Sliding Scale -) 1 vial SQ ACHS [facility]; Protocol Last Admin: 06/30/18 17:09 Dose: Not Given Lidocaine HCl (Xylocaine 2% Jelly) 1 applic TP BID PRN PRN Reason: DISCOMFORT Last Admin: 06/29/18 10:51 Dose: 1 applic Metformin HCl (Glucophage -) 1,000 mg PO BIDAC LIT Last Admin: 06/30/18 17:09 Dose: 1,000 mg Metoclopramide HCl (Reglan -) 5 mg PO BID PRN PRN Reason: NAUSEA Metoprolol Succinate (Toprol Xl -) 100 mg PO DAILY [facility] Last Admin: 06/30/18 10:54 Dose: 100 mg Multivitamins/Minerals (Theragran-M) 1 each PO DAILY [facility] Last Admin: 06/30/18 10:54 Dose: 1 each Nifedipine (Procardia Xl -) 30 mg PO DAILY [facility] Last Admin: 06/30/18 10:55 Dose: 30 mg Tamsulosin HCl (Flomax -) 0.4 mg PO DAILY@0830 [facility] Last Admin: 06/30/18 10:55 Dose: 0.4 mg Zolpidem Tartrate (Ambien -) 5 mg PO HS PRN PRN Reason: INSOMNIA Last Admin: 06/29/18 21:58 Dose: 5 mg - Objective Vital Signs: Vital Signs Temperature 98.5 F 06/30/18 16:30 Pulse Rate 102 H 06/30/18 16:30 Respiratory Rate 18 09/14/18 16:30 Blood Pressure 127/76 06/30/18 16:30 O2 Sat by Pulse Oximetry (%) 98 06/30/18 10:50 Constitutional: Yes: No Distress, Calm Cardiovascular: Yes: Regular Rate and Rhythm Respiratory: Yes: Regular Gastrointestinal: Yes: Normal Bowel Sounds, Soft Genitourinary: Yes: Rahman Present Integumentary: Yes: WNL Neurological: Yes: Alert Labs: CBC, BMP 06/29/18 06:20 06/29/18 06:20 INR, PTT INR 1.33 (0.83-1.09) H 06/25/18 11:00 Problem List - Problems (1) Anemia Code(s): D64.9 - ANEMIA, UNSPECIFIED (2) Bladder cancer Code(s): C67.9 - MALIGNANT NEOPLASM OF BLADDER, UNSPECIFIED (3) Sepsis Code(s): A41.9 - SEPSIS, UNSPECIFIED ORGANISM Qualifiers: Sepsis type: sepsis due to unspecified organism Qualified Code(s): A41.9 - Sepsis, unspecified organism (4) UTI (urinary tract infection) Code(s): N39.0 - URINARY TRACT INFECTION, SITE NOT SPECIFIED (5) KARTHIKEYAN (acute kidney injury) Code(s): N17.9 - ACUTE KIDNEY FAILURE, UNSPECIFIED (6) BPH (benign prostatic hyperplasia) Code(s): N40.0 - BENIGN PROSTATIC HYPERPLASIA WITHOUT LOWER URINRY TRACT SYMP (7) Diabetes Code(s): E11.9 - TYPE 2 DIABETES MELLITUS WITHOUT COMPLICATIONS (8) Fever Code(s): R50.9 - FEVER, UNSPECIFIED Qualifiers: Fever type: unspecified Qualified Code(s): R50.9 - Fever, unspecified (9) HLD (hyperlipidemia) Code(s): E78.5 - HYPERLIPIDEMIA, UNSPECIFIED (10) Hematuria Code(s): R31.9 - HEMATURIA, UNSPECIFIED Qualifiers: Hematuria type: gross Qualified Code(s): R31.0 - Gross hematuria (11) Hydronephrosis Code(s): N13.30 - UNSPECIFIED HYDRONEPHROSIS Assessment/Plan 78 y.o. male with PMH of Bladder CA with metastasis to liver/bone on chemotherapy, b/l hydronephrosis s/p stent and b/l nephrostomy (recently removed ), hx of previous UTIs, DM, HTN, HLD, anemia presenting with dysuria, fever, chills, leukocytosis. Records/labs/imaging reviewed. ESBL + E. coli UTI and Bacteremia Sepsis Metastatic Bladder CA on chemotherapy DM BPH/ urinary retention - s/p rahman insertion B/L hydronephrosis - s/p recent removal of nephrostomies -- continue Ertapenem x 10 more days -- pt afebrile -- chemotherapy on hold for now -- scheduled for procedure on Tuesday -- Heme/Oncology followup, following pt currently stable, afebrile
[2018-06-30] MEDS ORDERED: INSULIN (NOVOLOG) ASPART 100 UNITS/ML 10ML VIAL ONE (21:15)
[2018-06-30] MEDS: ZOLPIDEM TARTRATE 5 MG TABLET PO PRN (22:55)
[2018-07-01] MEDS: metFORMIN HCL 500 MG TABLET (FP) PO SCH ×2 (06:16→17:59)
[2018-07-01] MEDS: INSULIN SLIDING SCALE (NOVOLOG) 1 VIAL SQ SCH ×4 (06:16→21:12)
[2018-07-01 07:58] LABS: BASO % 0.6 % (0-2.0); EOS % 2.5 % (0-4.5); HEMATOCRIT 26.7 % (35.4-49); HEMOGLOBIN 8.8 GM/dL (11.7-16.9); LYMPH % 15.7 % (8-40); MCH 23.1 pg (25.7-33.7); MCHC 32.9 g/dl (32.0-35.9); MEAN CELL VOLUME 70.2 fl (80-96); MEAN PLT VOLUME 9.8 fl (7.5-11.1); NEUT % 74.2 % (42.8-82.8); PLATELET COUNT 120 K/MM3 (134-434); RDW 22.8 % (11.9-15.9); WHITE BLOOD COUNT 6.2 K/mm3 (4.0-10.0)
[2018-07-01 08:32] LABS: ALBUMIN 2.9 g/dl (3.4-5.0); ANION GAP 10 MMOL/L (8-16); BILIRUBIN,TOTAL 1.1 mg/dL (0.2-1.0); BLOOD UREA NITROGEN 20 mg/dL (7-18); CALCIUM 8.4 mg/dL (8.5-10.1); CHLORIDE 100 mmol/L (98-107); CO2 28 mmol/L (21-32); CREATININE 0.8 mg/dL (0.55-1.3); GLUCOSE,RANDOM 114 mg/dL (74-106); PHOSPHOROUS 4.3 mg/dL (2.5-4.9); POTASSIUM 3.8 mmol/L (3.5-5.1); SGOT/AST 24 U/L (15-37); SGPT/ALT 34 U/L (13-61); SODIUM 138 mmol/L (136-145); TOT PROT 6.5 g/dl (6.4-8.2)
[2018-07-01 08:33] LABS: ALK PHOS 436 U/L (45-117)
[2018-07-01 08:40] LABS: INR 1.16 (0.83-1.09); PROTHROMBIN TIME (PATIENT) 13.1 SEC (9.7-13.0)
[2018-07-01 08:41] LABS: ACTIVATED PTT 27.6 SECONDS (25.2-36.5)
[2018-07-01] MEDS ORDERED: PT OWN MED DRAWER 7, Y5N ONE (08:59)
[2018-07-01] MEDS: NIFEdipine E.R. 30 MG TABLET (FP) PO SCH (09:11)
[2018-07-01] MEDS: TAMSULOSIN HCL 0.4 MG CAP.ER.24H (FP) PO SCH (09:11)
[2018-07-01] MEDS: HEPARIN NA (PORCINE) 5,000 UNITS/ML 1ML VIAL SQ SCH ×2 (09:11→21:12)
[2018-07-01] MEDS: FINASTERIDE 5 MG TABLET (FP) PO SCH (09:11)
[2018-07-01] MEDS: MULTIVITAMINS THER W-MINERALS COMBO TABLET (FP) PO SCH (09:11)
[2018-07-01] MEDS: ERTAPENEM SODIUM 1 GM in SODIUM CHLORIDE 100 ML IVPB SCH (09:11)
--- NOTE | 2018-07-01 12:20 | PN ---
Progress Note, Physician History of Present Illness: Pt is alert, remains afebrile. Tolerating antibiotics. Denies abd pain/diarrhea/ rash. Rahman in place. - Current Medication List Current Medications: Active Medications Acetaminophen (Tylenol -) 650 mg PO Q6H PRN PRN Reason: FEVER Last Admin: 06/30/18 05:37 Dose: 650 mg Finasteride (Proscar -) 5 mg PO DAILY [facility] Last Admin: 07/01/18 09:11 Dose: 5 mg Heparin Sodium (Porcine) (Heparin -) 5,000 unit SQ BID LIT Last Admin: 07/01/18 09:11 Dose: 5,000 unit Ertapenem 1 gm/ Sodium (Chloride) 100 mls @ 200 mls/hr IVPB DAILY [facility] Last Admin: 07/01/18 09:11 Dose: 200 mls/hr Insulin Aspart (Novolog Vial Sliding Scale -) 1 vial SQ ACHS [facility]; Protocol Last Admin: 07/01/18 06:16 Dose: Not Given Lidocaine HCl (Xylocaine 2% Jelly) 1 applic TP BID PRN PRN Reason: DISCOMFORT Last Admin: 06/29/18 10:51 Dose: 1 applic Metformin HCl (Glucophage -) 1,000 mg PO BIDAC LIT Last Admin: 07/01/18 06:16 Dose: 1,000 mg Metoclopramide HCl (Reglan -) 5 mg PO BID PRN PRN Reason: NAUSEA Metoprolol Succinate (Toprol Xl -) 100 mg PO DAILY [facility] Last Admin: 07/01/18 09:11 Dose: 100 mg Multivitamins/Minerals (Theragran-M) 1 each PO DAILY [facility] Last Admin: 07/01/18 09:11 Dose: 1 each Nifedipine (Procardia Xl -) 30 mg PO DAILY [facility] Last Admin: 07/01/18 09:11 Dose: 30 mg Tamsulosin HCl (Flomax -) 0.4 mg PO DAILY@0830 [facility] Last Admin: 07/01/18 09:11 Dose: 0.4 mg Zolpidem Tartrate (Ambien -) 5 mg PO HS PRN PRN Reason: INSOMNIA Last Admin: 06/30/18 22:55 Dose: 5 mg - Objective Vital Signs: Vital Signs Temperature 98.3 F 07/01/18 10:00 Pulse Rate 89 07/01/18 10:00 Respiratory Rate 20 07/01/18 10:00 Blood Pressure 117/77 07/01/18 10:00 O2 Sat by Pulse Oximetry (%) 96 07/01/18 09:00 Constitutional: Yes: No Distress, Calm Cardiovascular: Yes: Regular Rate and Rhythm Respiratory: Yes: CTA Bilaterally Gastrointestinal: Yes: Normal Bowel Sounds, Soft Genitourinary: Yes: Rahman Present Extremities: Yes: WNL Neurological: Yes: Alert, Oriented Labs: CBC, BMP 07/01/18 06:30 07/01/18 06:30 INR, PTT INR 1.16 (0.83-1.09) H 07/01/18 06:30 Microbiology 06/26/18 20:30 Blood - Peripheral Venous Blood Culture - Preliminary NO GROWTH OBTAINED AFTER 96 HOURS, INCUBATION TO CONTINUE FOR 1 DAYS. 06/26/18 20:00 Blood - Peripheral Venous Blood Culture - Preliminary NO GROWTH OBTAINED AFTER 96 HOURS, INCUBATION TO CONTINUE FOR 1 DAYS. 06/25/18 11:00 Blood - Peripheral Venous Blood Culture - Final NO GROWTH AFTER 5 DAYS INCUBATION 06/25/18 11:00 Blood - Peripheral Venous Blood Culture - Final Escherichia Coli Esbl Intr[employer] Developer 06/25/18 13:00 Urine - Urine Clean Catch Urine Culture - Final Escherichia Coli Esbl Intranet Developer Problem List - Problems (1) Anemia Code(s): D64.9 - ANEMIA, UNSPECIFIED (2) Bladder cancer Code(s): C67.9 - MALIGNANT NEOPLASM OF BLADDER, UNSPECIFIED (3) Sepsis Code(s): A41.9 - SEPSIS, UNSPECIFIED ORGANISM Qualifiers: Sepsis type: sepsis due to unspecified organism Qualified Code(s): A41.9 - Sepsis, unspecified organism (4) UTI (urinary tract infection) Code(s): N39.0 - URINARY TRACT INFECTION, SITE NOT SPECIFIED (5) KARTHIKEYAN (acute kidney injury) Code(s): N17.9 - ACUTE KIDNEY FAILURE, UNSPECIFIED (6) BPH (benign prostatic hyperplasia) Code(s): N40.0 - BENIGN PROSTATIC HYPERPLASIA WITHOUT LOWER URINRY TRACT SYMP (7) Diabetes Code(s): E11.9 - TYPE 2 DIABETES MELLITUS WITHOUT COMPLICATIONS (8) Fever Code(s): R50.9 - FEVER, UNSPECIFIED Qualifiers: Fever type: unspecified Qualified Code(s): R50.9 - Fever, unspecified (9) HLD (hyperlipidemia) Code(s): E78.5 - HYPERLIPIDEMIA, UNSPECIFIED (10) Hematuria Code(s): R31.9 - HEMATURIA, UNSPECIFIED Qualifiers: Hematuria type: gross Qualified Code(s): R31.0 - Gross hematuria (11) Hydronephrosis Code(s): N13.30 - UNSPECIFIED HYDRONEPHROSIS Assessment/Plan 78 y.o. male with PMH of Bladder CA with metastasis to liver/bone on chemotherapy, b/l hydronephrosis s/p stent and b/l nephrostomy (recently removed ), hx of previous UTIs, DM, HTN, HLD, anemia presenting with dysuria, fever, chills, leukocytosis. Records/labs/imaging reviewed. ESBL + E. coli UTI and Bacteremia Sepsis Metastatic Bladder CA on chemotherapy DM BPH/ urinary retention - s/p rahman insertion B/L hydronephrosis - s/p recent removal of nephrostomies -- continue Ertapenem x 9 more days -- repeat Urine c+s from catheter -- chemotherapy on hold for now -- scheduled for procedure on Tuesday -- Heme/Oncology followup, following pt currently stable, afebrile
[2018-07-01] MEDS ORDERED: INSULIN (NOVOLOG) ASPART 100 UNITS/ML 10ML VIAL ONE (12:22)
--- NOTE | 2018-07-01 12:38 | PN ---
Progress Note (short form) - Note Progress Note: Patient known to Dr. Vance, receiving chemotherapy (Carbo/[place] - C1 on 04/13) for metastatic bladder cancer. Patient feeling well, with no complaints at this time. No fevers last 24 hours Inpatient Meds reviewed. Current Medications Generic Name Dose Route Start Last Admin Trade Name Freq PRN Reason Stop Dose Admin Acetaminophen 650 mg 06/25/18 22:48 06/30/18 05:37 Tylenol - PO 650 mg Q6H PRN Administration FEVER Finasteride 5 mg 06/26/18 10:00 07/01/18 09:11 Proscar - PO 5 mg DAILY LIT Administration Heparin Sodium (Porcine) 5,000 unit 06/26/18 10:00 07/01/18 09:11 Heparin - SQ 5,000 unit BID LIT Administration Ertapenem 1 gm/ Sodium 100 mls @ 200 mls/hr 06/27/18 15:45 07/01/18 09:11 Chloride IVPB 200 mls/hr DAILY LIT Administration Insulin Aspart 1 vial 06/26/18 07:00 07/01/18 12:24 Novolog Vial Sliding Scale - SQ Not Given ACHS LIT Protocol Lidocaine HCl 1 applic 06/29/18 09:48 06/29/18 10:51 Xylocaine 2% Jelly TP 1 applic BID PRN Administration DISCOMFORT Metformin HCl 1,000 mg 06/26/18 07:00 07/01/18 06:16 Glucophage - PO 1,000 mg BIDAC LIT Administration Metoclopramide HCl 5 mg 06/25/18 22:45 Reglan - PO BID PRN NAUSEA Metoprolol Succinate 100 mg 06/26/18 10:00 07/01/18 09:11 Toprol Xl - PO 100 mg DAILY LIT Administration Multivitamins/Minerals 1 each 06/26/18 10:00 07/01/18 09:11 Theragran-M PO 1 each DAILY LIT Administration Nifedipine 30 mg 06/26/18 10:00 07/01/18 09:11 Procardia Xl - PO 30 mg DAILY LIT Administration Tamsulosin HCl 0.4 mg 06/26/18 08:30 07/01/18 09:11 Flomax - PO 0.4 mg DAILY@0830 LIT Administration Zolpidem Tartrate 5 mg 06/29/18 09:49 06/30/18 22:55 Ambien - PO 5 mg HS PRN Administration INSOMNIA On Examination: Last Vital Signs Temp Pulse Resp BP Pulse Ox 98.3 F 89 20 117/77 96 07/01/18 10:00 07/01/18 10:00 07/01/18 10:00 07/01/18 10:00 07/01/18 09:00 General: In no acute distress, mobile. Extremities: No pallor or icterus. No pedal edema. No palpable lymphadenopathy. CVS: S1, S2, regular, no gallop or murmur. Chest: good air entry bilaterally, clear Abdomen: Non-distended, non-tender, no palpable organomegaly. Neuro: Alert, oriented, non-focal. Labs: CBC, BMP 07/01/18 06:30 07/01/18 06:30 Microbiology 06/26/18 20:30 Blood - Peripheral Venous Blood Culture - Preliminary NO GROWTH OBTAINED AFTER 96 HOURS, INCUBATION TO CONTINUE FOR 1 DAYS. 06/26/18 20:00 Blood - Peripheral Venous Blood Culture - Preliminary NO GROWTH OBTAINED AFTER 96 HOURS, INCUBATION TO CONTINUE FOR 1 DAYS. 06/25/18 11:00 Blood - Peripheral Venous Blood Culture - Final NO GROWTH AFTER 5 DAYS INCUBATION Assessment. Newly diagnosed metastatic bladder cancer - on chemotherapy, now admitted with ESBL + E. coli UTI Chemotherapy held presently. Not neutropenic. On appropriate Abic, with oversight of ID consult. Prior nephrostomy tubes - now removed. BPH - awaiting procedure Tuesday.
--- NOTE | 2018-07-01 13:09 | PN ---
Progress Note (short form) - Note Progress Note: UROLOGY NOTE. PT. WITH BPH AND OBSTRUCTIVE UROPATHY. S/P TONY. JJ STENTS. H/O TCC OF BLADDER WITH METS. PLAN TUVP ON TUESDAY IF MED. OK.
[2018-07-01] MEDS: ZOLPIDEM TARTRATE 5 MG TABLET PO PRN (21:12)
--- NOTE | 2018-07-01 23:21 | PN ---
Progress Note, Physician - Current Medication List Current Medications: Active Medications Acetaminophen (Tylenol -) 650 mg PO Q6H PRN PRN Reason: FEVER Last Admin: 06/30/18 05:37 Dose: 650 mg Finasteride (Proscar -) 5 mg PO DAILY [facility] Last Admin: 07/01/18 09:11 Dose: 5 mg Heparin Sodium (Porcine) (Heparin -) 5,000 unit SQ BID [facility] Last Admin: 07/01/18 21:12 Dose: 5,000 unit Ertapenem 1 gm/ Sodium (Chloride) 100 mls @ 200 mls/hr IVPB DAILY [facility] Last Admin: 07/01/18 09:11 Dose: 200 mls/hr Insulin Aspart (Novolog Vial Sliding Scale -) 1 vial SQ ACHS [facility]; Protocol Last Admin: 07/01/18 21:12 Dose: Not Given Lidocaine HCl (Xylocaine 2% Jelly) 1 applic TP BID PRN PRN Reason: DISCOMFORT Last Admin: 06/29/18 10:51 Dose: 1 applic Metformin HCl (Glucophage -) 1,000 mg PO BIDAC [facility] Last Admin: 07/01/18 17:59 Dose: 1,000 mg Metoclopramide HCl (Reglan -) 5 mg PO BID PRN PRN Reason: NAUSEA Metoprolol Succinate (Toprol Xl -) 100 mg PO DAILY [facility] Last Admin: 07/01/18 09:11 Dose: 100 mg Multivitamins/Minerals (Theragran-M) 1 each PO DAILY [facility] Last Admin: 07/01/18 09:11 Dose: 1 each Nifedipine (Procardia Xl -) 30 mg PO DAILY [facility] Last Admin: 07/01/18 09:11 Dose: 30 mg Tamsulosin HCl (Flomax -) 0.4 mg PO DAILY@0830 [facility] Last Admin: 07/01/18 09:11 Dose: 0.4 mg Zolpidem Tartrate (Ambien -) 5 mg PO HS PRN PRN Reason: INSOMNIA Last Admin: 07/01/18 21:12 Dose: 5 mg - Objective Vital Signs: Vital Signs Temperature 98 F 07/01/18 21:50 Pulse Rate 77 07/01/18 21:50 Respiratory Rate 18 07/01/18 21:50 Blood Pressure 125/70 07/01/18 21:50 O2 Sat by Pulse Oximetry (%) 96 07/01/18 09:00 Labs: CBC, BMP 07/01/18 06:30 07/01/18 06:30 INR, PTT INR 1.16 (0.83-1.09) H 07/01/18 06:30 Problem List - Problems (1) UTI (urinary tract infection) Code(s): N39.0 - URINARY TRACT INFECTION, SITE NOT SPECIFIED (2) Bladder cancer Code(s): C67.9 - MALIGNANT NEOPLASM OF BLADDER, UNSPECIFIED (3) Anemia Code(s): D64.9 - ANEMIA, UNSPECIFIED (4) BPH (benign prostatic hyperplasia) Code(s): N40.0 - BENIGN PROSTATIC HYPERPLASIA WITHOUT LOWER URINRY TRACT SYMP (5) Diabetes Code(s): E11.9 - TYPE 2 DIABETES MELLITUS WITHOUT COMPLICATIONS (6) HLD (hyperlipidemia) Code(s): E78.5 - HYPERLIPIDEMIA, UNSPECIFIED (7) Hypertension Code(s): I10 - ESSENTIAL (PRIMARY) HYPERTENSION Qualifiers: Hypertension type: other secondary hypertension Qualified Code(s): I15.8 - Other secondary hypertension
[2018-07-02] MEDS: ACETAMINOPHEN 325 MG TABLET (FP) PO PRN ×2 (01:32→23:13)
[2018-07-02] MEDS: metFORMIN HCL 500 MG TABLET (FP) PO SCH ×2 (06:11→17:39)
[2018-07-02] MEDS: INSULIN SLIDING SCALE (NOVOLOG) 1 VIAL SQ SCH ×4 (06:12→21:31)
[2018-07-02] MEDS ORDERED: INSULIN (LEVEMIR) 100 UNITS/ML UNITS SQ ONE (06:48)
[2018-07-02] MEDS: TAMSULOSIN HCL 0.4 MG CAP.ER.24H (FP) PO SCH (08:39)
[2018-07-02] MEDS: HEPARIN NA (PORCINE) 5,000 UNITS/ML 1ML VIAL SQ SCH ×2 (09:38→21:32)
[2018-07-02] MEDS: NIFEdipine E.R. 30 MG TABLET (FP) PO SCH (09:39)
[2018-07-02] MEDS: FINASTERIDE 5 MG TABLET (FP) PO SCH (09:39)
[2018-07-02] MEDS: MULTIVITAMINS THER W-MINERALS COMBO TABLET (FP) PO SCH (09:39)
[2018-07-02] MEDS: ERTAPENEM SODIUM 1 GM in SODIUM CHLORIDE 100 ML IVPB SCH (09:40)
--- NOTE | 2018-07-02 11:15 | PN ---
Progress Note, Physician History of Present Illness: Pt is doing well. Has no new complaints. Remains afebrile, alert. Tolerating antibiotics. - Current Medication List Current Medications: Active Medications Acetaminophen (Tylenol -) 650 mg PO Q6H PRN PRN Reason: FEVER Last Admin: 07/02/18 01:32 Dose: 650 mg Finasteride (Proscar -) 5 mg PO DAILY [facility] Last Admin: 07/02/18 09:39 Dose: 5 mg Heparin Sodium (Porcine) (Heparin -) 5,000 unit SQ BID [facility] Last Admin: 07/02/18 09:38 Dose: 5,000 unit Ertapenem 1 gm/ Sodium (Chloride) 100 mls @ 200 mls/hr IVPB DAILY [facility] Last Admin: 07/02/18 09:40 Dose: 200 mls/hr Insulin Aspart (Novolog Vial Sliding Scale -) 1 vial SQ ACHS [facility]; Protocol Last Admin: 07/02/18 06:12 Dose: Not Given Lidocaine HCl (Xylocaine 2% Jelly) 1 applic TP BID PRN PRN Reason: DISCOMFORT Last Admin: 06/29/18 10:51 Dose: 1 applic Metformin HCl (Glucophage -) 1,000 mg PO BIDAC [facility] Last Admin: 07/02/18 06:11 Dose: 1,000 mg Metoclopramide HCl (Reglan -) 5 mg PO BID PRN PRN Reason: NAUSEA Metoprolol Succinate (Toprol Xl -) 100 mg PO DAILY [facility] Last Admin: 07/02/18 09:39 Dose: 100 mg Multivitamins/Minerals (Theragran-M) 1 each PO DAILY [facility] Last Admin: 07/02/18 09:39 Dose: 1 each Nifedipine (Procardia Xl -) 30 mg PO DAILY [facility] Last Admin: 07/02/18 09:39 Dose: 30 mg Tamsulosin HCl (Flomax -) 0.4 mg PO DAILY@0830 [facility] Last Admin: 07/02/18 08:39 Dose: 0.4 mg Zolpidem Tartrate (Ambien -) 5 mg PO HS PRN PRN Reason: INSOMNIA Last Admin: 07/01/18 21:12 Dose: 5 mg - Objective Vital Signs: Vital Signs Temperature 98.3 F 07/02/18 06:00 Pulse Rate 78 07/02/18 06:00 Respiratory Rate 18 07/02/18 06:00 Blood Pressure 132/82 07/02/18 06:00 O2 Sat by Pulse Oximetry (%) 96 07/01/18 09:00 Constitutional: Yes: No Distress, Calm Cardiovascular: Yes: Regular Rate and Rhythm Respiratory: Yes: CTA Bilaterally Gastrointestinal: Yes: Normal Bowel Sounds, Soft Genitourinary: Yes: Rahman Present Musculoskeletal: Yes: WNL Extremities: Yes: WNL Edema: No Integumentary: Yes: WNL Neurological: Yes: Alert, Oriented Labs: CBC, BMP 07/01/18 06:30 07/01/18 06:30 INR, PTT INR 1.16 (0.83-1.09) H 07/01/18 06:30 Microbiology 06/26/18 20:30 Blood - Peripheral Venous Blood Culture - Final NO GROWTH AFTER 5 DAYS INCUBATION 06/26/18 20:00 Blood - Peripheral Venous Blood Culture - Final NO GROWTH AFTER 5 DAYS INCUBATION 06/25/18 11:00 Blood - Peripheral Venous Blood Culture - Final NO GROWTH AFTER 5 DAYS INCUBATION 06/25/18 11:00 Blood - Peripheral Venous Blood Culture - Final Escherichia Coli Esbl [employer] 06/25/18 13:00 Urine - Urine Clean Catch Urine Culture - Final Escherichia Coli Esbl [employer] Problem List - Problems (1) Anemia Code(s): D64.9 - ANEMIA, UNSPECIFIED (2) Bladder cancer Code(s): C67.9 - MALIGNANT NEOPLASM OF BLADDER, UNSPECIFIED (3) Sepsis Code(s): A41.9 - SEPSIS, UNSPECIFIED ORGANISM Qualifiers: Sepsis type: sepsis due to unspecified organism Qualified Code(s): A41.9 - Sepsis, unspecified organism (4) UTI (urinary tract infection) Code(s): N39.0 - URINARY TRACT INFECTION, SITE NOT SPECIFIED (5) KARTHIKEYAN (acute kidney injury) Code(s): N17.9 - ACUTE KIDNEY FAILURE, UNSPECIFIED (6) BPH (benign prostatic hyperplasia) Code(s): N40.0 - BENIGN PROSTATIC HYPERPLASIA WITHOUT LOWER URINRY TRACT SYMP (7) Diabetes Code(s): E11.9 - TYPE 2 DIABETES MELLITUS WITHOUT COMPLICATIONS (8) Fever Code(s): R50.9 - FEVER, UNSPECIFIED Qualifiers: Fever type: unspecified Qualified Code(s): R50.9 - Fever, unspecified (9) HLD (hyperlipidemia) Code(s): E78.5 - HYPERLIPIDEMIA, UNSPECIFIED (10) Hematuria Code(s): R31.9 - HEMATURIA, UNSPECIFIED Qualifiers: Hematuria type: gross Qualified Code(s): R31.0 - Gross hematuria (11) Hydronephrosis Code(s): N13.30 - UNSPECIFIED HYDRONEPHROSIS Assessment/Plan 78 y.o. male with PMH of Bladder CA with metastasis to liver/bone on chemotherapy, b/l hydronephrosis s/p stent and b/l nephrostomy (recently removed ), hx of previous UTIs, DM, HTN, HLD, anemia presenting with dysuria, fever, chills, leukocytosis. Records/labs/imaging reviewed. ESBL + E. coli UTI and Bacteremia Sepsis Metastatic Bladder CA on chemotherapy DM BPH/ urinary retention - s/p rahman insertion B/L hydronephrosis - s/p recent removal of nephrostomies -- continue Ertapenem x 8 more days -- for procedure tomorrow -- chemotherapy on hold for now -- Heme/Oncology followup, following pt currently stable, afebrile
--- NOTE | 2018-07-02 16:10 | PN ---
Progress Note, Physician - Current Medication List Current Medications: Active Medications Acetaminophen (Tylenol -) 650 mg PO Q6H PRN PRN Reason: FEVER Last Admin: 07/02/18 01:32 Dose: 650 mg Finasteride (Proscar -) 5 mg PO DAILY [facility] Last Admin: 07/02/18 09:39 Dose: 5 mg Heparin Sodium (Porcine) (Heparin -) 5,000 unit SQ BID [facility] Last Admin: 07/02/18 09:38 Dose: 5,000 unit Ertapenem 1 gm/ Sodium (Chloride) 100 mls @ 200 mls/hr IVPB DAILY [facility] Last Admin: 07/02/18 09:40 Dose: 200 mls/hr Insulin Aspart (Novolog Vial Sliding Scale -) 1 vial SQ ACHS [facility]; Protocol Last Admin: 07/02/18 12:55 Dose: 2 units Lidocaine HCl (Xylocaine 2% Jelly) 1 applic TP BID PRN PRN Reason: DISCOMFORT Last Admin: 06/29/18 10:51 Dose: 1 applic Metformin HCl (Glucophage -) 1,000 mg PO BIDAC [facility] Last Admin: 07/02/18 06:11 Dose: 1,000 mg Metoclopramide HCl (Reglan -) 5 mg PO BID PRN PRN Reason: NAUSEA Metoprolol Succinate (Toprol Xl -) 100 mg PO DAILY [facility] Last Admin: 07/02/18 09:39 Dose: 100 mg Multivitamins/Minerals (Theragran-M) 1 each PO DAILY [facility] Last Admin: 07/02/18 09:39 Dose: 1 each Nifedipine (Procardia Xl -) 30 mg PO DAILY [facility] Last Admin: 07/02/18 09:39 Dose: 30 mg Tamsulosin HCl (Flomax -) 0.4 mg PO DAILY@0830 [facility] Last Admin: 07/02/18 08:39 Dose: 0.4 mg Zolpidem Tartrate (Ambien -) 5 mg PO HS PRN PRN Reason: INSOMNIA Last Admin: 07/01/18 21:12 Dose: 5 mg - Objective Vital Signs: Vital Signs Temperature 98.6 F 07/02/18 15:06 Pulse Rate 84 07/02/18 15:06 Respiratory Rate 18 07/02/18 15:06 Blood Pressure 140/79 07/02/18 15:06 O2 Sat by Pulse Oximetry (%) 96 07/01/18 09:00 Labs: CBC, BMP 07/01/18 06:30 07/01/18 06:30 INR, PTT INR 1.16 (0.83-1.09) H 07/01/18 06:30 Problem List - Problems (1) UTI (urinary tract infection) Code(s): N39.0 - URINARY TRACT INFECTION, SITE NOT SPECIFIED (2) Bladder cancer Code(s): C67.9 - MALIGNANT NEOPLASM OF BLADDER, UNSPECIFIED (3) Anemia Code(s): D64.9 - ANEMIA, UNSPECIFIED (4) BPH (benign prostatic hyperplasia) Code(s): N40.0 - BENIGN PROSTATIC HYPERPLASIA WITHOUT LOWER URINRY TRACT SYMP (5) Diabetes Code(s): E11.9 - TYPE 2 DIABETES MELLITUS WITHOUT COMPLICATIONS (6) HLD (hyperlipidemia) Code(s): E78.5 - HYPERLIPIDEMIA, UNSPECIFIED (7) Hypertension Code(s): I10 - ESSENTIAL (PRIMARY) HYPERTENSION Qualifiers: Hypertension type: other secondary hypertension Qualified Code(s): I15.8 - Other secondary hypertension
[2018-07-02] MEDS: ZOLPIDEM TARTRATE 5 MG TABLET PO PRN (23:09)
[2018-07-03] MEDS: INSULIN SLIDING SCALE (NOVOLOG) 1 VIAL SQ SCH ×5 (06:20→22:02)
[2018-07-03] MEDS: metFORMIN HCL 500 MG TABLET (FP) PO SCH ×2 (06:20→17:15)
[2018-07-03] MEDS: ERTAPENEM SODIUM 1 GM in SODIUM CHLORIDE 100 ML IVPB SCH (09:59)
[2018-07-03] MEDS: NIFEdipine E.R. 30 MG TABLET (FP) PO SCH (10:00)
[2018-07-03] MEDS: TAMSULOSIN HCL 0.4 MG CAP.ER.24H (FP) PO SCH (10:00)
[2018-07-03] MEDS: FINASTERIDE 5 MG TABLET (FP) PO SCH (10:01)
--- NOTE | 2018-07-03 10:32 | PN ---
Progress Note, Physician History of Present Illness: patient doing well awaiting for the procedure feels good - Current Medication List Current Medications: Active Medications Acetaminophen (Tylenol -) 650 mg PO Q6H PRN PRN Reason: FEVER Last Admin: 07/02/18 23:13 Dose: 650 mg Finasteride (Proscar -) 5 mg PO DAILY [facility] Last Admin: 07/03/18 10:01 Dose: 5 mg Ertapenem 1 gm/ Sodium (Chloride) 100 mls @ 200 mls/hr IVPB DAILY [facility] Last Admin: 07/03/18 09:59 Dose: 200 mls/hr Insulin Aspart (Novolog Vial Sliding Scale -) 1 vial SQ ACHS [facility]; Protocol Last Admin: 07/03/18 06:20 Dose: Not Given Lidocaine HCl (Xylocaine 2% Jelly) 1 applic TP BID PRN PRN Reason: DISCOMFORT Last Admin: 06/29/18 10:51 Dose: 1 applic Metformin HCl (Glucophage -) 1,000 mg PO BIDAC [facility] Last Admin: 07/03/18 06:20 Dose: Not Given Metoclopramide HCl (Reglan -) 5 mg PO BID PRN PRN Reason: NAUSEA Metoprolol Succinate (Toprol Xl -) 100 mg PO DAILY [facility] Last Admin: 07/03/18 10:00 Dose: 100 mg Multivitamins/Minerals (Theragran-M) 1 each PO DAILY [facility] Last Admin: 07/02/18 09:39 Dose: 1 each Nifedipine (Procardia Xl -) 30 mg PO DAILY [facility] Last Admin: 07/03/18 10:00 Dose: 30 mg Tamsulosin HCl (Flomax -) 0.4 mg PO DAILY@0830 [facility] Last Admin: 07/03/18 10:00 Dose: 0.4 mg Zolpidem Tartrate (Ambien -) 5 mg PO HS PRN PRN Reason: INSOMNIA Last Admin: 07/02/18 23:09 Dose: 5 mg - Objective Vital Signs: Vital Signs Temperature 98.4 F 07/03/18 09:00 Pulse Rate 75 07/03/18 09:00 Respiratory Rate 18 07/03/18 09:00 Blood Pressure 151/85 07/03/18 09:00 O2 Sat by Pulse Oximetry (%) 96 07/02/18 22:55 Constitutional: Yes: No Distress, Calm Cardiovascular: Yes: Regular Rate and Rhythm Respiratory: Yes: Regular, CTA Bilaterally Gastrointestinal: Yes: Normal Bowel Sounds, Soft Musculoskeletal: Yes: WNL Extremities: Yes: WNL Labs: CBC, BMP 07/01/18 06:30 07/01/18 06:30 INR, PTT INR 1.16 (0.83-1.09) H 07/01/18 06:30 Assessment/Plan Problem List - Problems (1) Anemia Code(s): D64.9 - ANEMIA, UNSPECIFIED (2) Bladder cancer Code(s): C67.9 - MALIGNANT NEOPLASM OF BLADDER, UNSPECIFIED (3) Sepsis Code(s): A41.9 - SEPSIS, UNSPECIFIED ORGANISM Qualifiers: Sepsis type: sepsis due to unspecified organism Qualified Code(s): A41.9 - Sepsis, unspecified organism (4) UTI (urinary tract infection) Code(s): N39.0 - URINARY TRACT INFECTION, SITE NOT SPECIFIED (5) KARTHIKEYAN (acute kidney injury) Code(s): N17.9 - ACUTE KIDNEY FAILURE, UNSPECIFIED (6) BPH (benign prostatic hyperplasia) Code(s): N40.0 - BENIGN PROSTATIC HYPERPLASIA WITHOUT LOWER URINRY TRACT SYMP (7) Diabetes Code(s): E11.9 - TYPE 2 DIABETES MELLITUS WITHOUT COMPLICATIONS (8) Fever Code(s): R50.9 - FEVER, UNSPECIFIED Qualifiers: Fever type: unspecified Qualified Code(s): R50.9 - Fever, unspecified (9) HLD (hyperlipidemia) Code(s): E78.5 - HYPERLIPIDEMIA, UNSPECIFIED (10) Hematuria Code(s): R31.9 - HEMATURIA, UNSPECIFIED Qualifiers: Hematuria type: gross Qualified Code(s): R31.0 - Gross hematuria (11) Hydronephrosis Code(s): N13.30 - UNSPECIFIED HYDRONEPHROSIS Assessment/Plan 78 y.o. male with PMH of Bladder CA with metastasis to liver/bone on chemotherapy, b/l hydronephrosis s/p stent and b/l nephrostomy (recently removed ), hx of previous UTIs, DM, HTN, HLD, anemia presenting with dysuria, fever, chills, leukocytosis. Records/labs/imaging reviewed. ESBL + E. coli UTI and Bacteremia Sepsis Metastatic Bladder CA on chemotherapy DM BPH/ urinary retention - s/p rahman insertion B/L hydronephrosis - s/p recent removal of nephrostomies plan continue abx for 7 more days patient awaitng for procedure rest as per the team stable
--- NOTE | 2018-07-03 11:23 | PN ---
Progress Note (short form) - Note Progress Note: UROLOGY NOTE. PT. WITH REC. URINARY RETENTION, HAM PATENT URINE CLEAR ,ABD. SOFT,N/T. PLAN TUVP IN AM IF MED. OK.
[2018-07-03] MEDS: MULTIVITAMINS THER W-MINERALS COMBO TABLET (FP) PO SCH (11:57)
[2018-07-03 20:49] LABS: BASO % 0.4 % (0-2.0); EOS % 1.1 % (0-4.5); HEMATOCRIT 25.8 % (35.4-49); HEMOGLOBIN 8.4 GM/dL (11.7-16.9); MCH 22.8 pg (25.7-33.7); MCHC 32.7 g/dl (32.0-35.9); MEAN CELL VOLUME 69.9 fl (80-96); MEAN PLT VOLUME 9.5 fl (7.5-11.1); MONO % 4.8 % (3.8-10.2); NEUT % 83.7 % (42.8-82.8); PLATELET COUNT 165 K/MM3 (134-434); RDW 21.8 % (11.9-15.9); WHITE BLOOD COUNT 7.2 K/mm3 (4.0-10.0)
[2018-07-03 20:54] LABS: ADD RBC MORPHOLOGY YES
[2018-07-03 21:17] LABS: INR 1.19 (0.83-1.09); PROTHROMBIN TIME (PATIENT) 13.5 SEC (9.7-13.0)
[2018-07-03 21:19] LABS: ACTIVATED PTT 29.2 SECONDS (25.2-36.5)
[2018-07-03 21:31] LABS: ALBUMIN 2.9 g/dl (3.4-5.0); ANION GAP 12 MMOL/L (8-16); BILIRUBIN,TOTAL 0.6 mg/dL (0.2-1); BLOOD UREA NITROGEN 22 mg/dL (7-18); CALCIUM 8.5 mg/dL (8.5-10.1); CHLORIDE 104 mmol/L (98-107); CO2 25 mmol/L (21-32); CREATININE 0.8 mg/dL (0.55-1.3); GLUCOSE,RANDOM 142 mg/dL (74-106); POTASSIUM 3.8 mmol/L (3.5-5.1); SGOT/AST 33 U/L (15-37); SGPT/ALT 34 U/L (13-61); SODIUM 141 mmol/L (136-145); TOT PROT 6.6 g/dl (6.4-8.2)
[2018-07-03 21:33] LABS: ALK PHOS 386 U/L (45-117)
[2018-07-03] MEDS ORDERED: INSULIN (NOVOLOG) ASPART 100 UNITS/ML 10ML VIAL ONE (21:52)
[2018-07-03] MEDS: ACETAMINOPHEN 325 MG TABLET (FP) PO PRN (22:01)
[2018-07-03 22:43] LABS: ANISOCYTOSIS 2+; MACROCYTOSIS 1+
[2018-07-03 22:44] LABS: OVALOCYTE 1+; PLATELET ESTIMATE ADEQUATE
--- NOTE | 2018-07-03 22:50 | PN ---
Progress Note, Physician History of Present Illness: No new complaints - Current Medication List Current Medications: Active Medications Acetaminophen (Tylenol -) 650 mg PO Q6H PRN PRN Reason: FEVER Last Admin: 07/03/18 22:01 Dose: 650 mg Finasteride (Proscar -) 5 mg PO DAILY [facility] Last Admin: 07/03/18 10:01 Dose: 5 mg Ertapenem 1 gm/ Sodium (Chloride) 100 mls @ 200 mls/hr IVPB DAILY [facility] Last Admin: 07/03/18 09:59 Dose: 200 mls/hr Insulin Aspart (Novolog Vial Sliding Scale -) 1 vial SQ ACHS [facility]; Protocol Last Admin: 07/03/18 22:02 Dose: 2 units Lidocaine HCl (Xylocaine 2% Jelly) 1 applic TP BID PRN PRN Reason: DISCOMFORT Last Admin: 06/29/18 10:51 Dose: 1 applic Metformin HCl (Glucophage -) 1,000 mg PO BIDAC [facility] Last Admin: 07/03/18 17:15 Dose: 1,000 mg Metoclopramide HCl (Reglan -) 5 mg PO BID PRN PRN Reason: NAUSEA Metoprolol Succinate (Toprol Xl -) 100 mg PO DAILY [facility] Last Admin: 07/03/18 10:00 Dose: 100 mg Multivitamins/Minerals (Theragran-M) 1 each PO DAILY [facility] Last Admin: 07/03/18 11:57 Dose: 1 each Nifedipine (Procardia Xl -) 30 mg PO DAILY [facility] Last Admin: 07/03/18 10:00 Dose: 30 mg Tamsulosin HCl (Flomax -) 0.4 mg PO DAILY@0830 [facility] Last Admin: 07/03/18 10:00 Dose: 0.4 mg Zolpidem Tartrate (Ambien -) 5 mg PO HS PRN PRN Reason: INSOMNIA - Objective Vital Signs: Vital Signs Temperature 97.7 F 07/03/18 16:30 Pulse Rate 80 07/03/18 16:30 Respiratory Rate 20 07/03/18 16:30 Blood Pressure 137/87 07/03/18 16:30 O2 Sat by Pulse Oximetry (%) 97 07/03/18 09:00 Cardiovascular: Yes: WNL, Regular Rate and Rhythm Respiratory: Yes: WNL, Regular, CTA Bilaterally Gastrointestinal: Yes: WNL, Normal Bowel Sounds, Soft Labs: CBC, BMP 07/03/18 20:00 07/03/18 20:00 INR, PTT INR 1.19 (0.83-1.09) H 07/03/18 20:00 Problem List - Problems (1) Bladder cancer Assessment/Plan: Pt is medically cleared for procedure in am Code(s): C67.9 - MALIGNANT NEOPLASM OF BLADDER, UNSPECIFIED (2) UTI (urinary tract infection) Assessment/Plan: Cont IV Ertapenem Urine culture (+) for ESBL Repeat blood cultures remain negative Code(s): N39.0 - URINARY TRACT INFECTION, SITE NOT SPECIFIED (3) Anemia Assessment/Plan: S/P transfusion 1 unit PRBC's Monitor H/H Code(s): D64.9 - ANEMIA, UNSPECIFIED (4) BPH (benign prostatic hyperplasia) Code(s): N40.0 - BENIGN PROSTATIC HYPERPLASIA WITHOUT LOWER URINRY TRACT SYMP (5) Diabetes Code(s): E11.9 - TYPE 2 DIABETES MELLITUS WITHOUT COMPLICATIONS (6) HLD (hyperlipidemia) Code(s): E78.5 - HYPERLIPIDEMIA, UNSPECIFIED (7) Hypertension Code(s): I10 - ESSENTIAL (PRIMARY) HYPERTENSION Qualifiers: Hypertension type: other secondary hypertension Qualified Code(s): I15.8 - Other secondary hypertension
[2018-07-03] MEDS: ZOLPIDEM TARTRATE 5 MG TABLET PO PRN (22:51)
--- NOTE | 2018-07-03 23:04 | PN ---
Progress Note (short form) - Note Progress Note: PAtient seen and examined Denies any complaints Last Vital Signs Temp Pulse Resp BP Pulse Ox 97.7 F 80 20 137/87 97 07/03/18 16:30 07/03/18 16:30 07/03/18 16:30 07/03/18 16:30 07/03/18 09:00 Cor: RSR, No murmurs, No gallops Lungs: Clear to P&A Abd: Soft, Normal bowel sounds, No organomegaly Ext:No significant edema Skin: No rashes, Integument intact Abnormal Lab Results 07/03/18 07/03/18 07/03/18 20:00 20:00 20:00 RBC 3.70 L Hgb 8.4 L Hct 25.8 L MCV 69.9 L MCH 22.8 L RDW 21.8 H Neutrophils % 83.7 H PT with INR 13.50 H INR 1.19 H BUN 22 H Random Glucose 142 H Alkaline Phosphatase 386 H Albumin 2.9 L Active Medications Acetaminophen (Tylenol -) 650 mg PO Q6H PRN PRN Reason: FEVER Last Admin: 07/03/18 22:01 Dose: 650 mg Finasteride (Proscar -) 5 mg PO DAILY [facility] Last Admin: 07/03/18 10:01 Dose: 5 mg Ertapenem 1 gm/ Sodium (Chloride) 100 mls @ 200 mls/hr IVPB DAILY [facility] Last Admin: 07/03/18 09:59 Dose: 200 mls/hr Insulin Aspart (Novolog Vial Sliding Scale -) 1 vial SQ ACHS [facility]; Protocol Last Admin: 07/03/18 22:02 Dose: 2 units Lidocaine HCl (Xylocaine 2% Jelly) 1 applic TP BID PRN PRN Reason: DISCOMFORT Last Admin: 06/29/18 10:51 Dose: 1 applic Metformin HCl (Glucophage -) 1,000 mg PO BIDAC [facility] Last Admin: 07/03/18 17:15 Dose: 1,000 mg Metoclopramide HCl (Reglan -) 5 mg PO BID PRN PRN Reason: NAUSEA Metoprolol Succinate (Toprol Xl -) 100 mg PO DAILY [facility] Last Admin: 07/03/18 10:00 Dose: 100 mg Multivitamins/Minerals (Theragran-M) 1 each PO DAILY [facility] Last Admin: 07/03/18 11:57 Dose: 1 each Nifedipine (Procardia Xl -) 30 mg PO DAILY [facility] Last Admin: 07/03/18 10:00 Dose: 30 mg Tamsulosin HCl (Flomax -) 0.4 mg PO DAILY@0830 [facility] Last Admin: 07/03/18 10:00 Dose: 0.4 mg Zolpidem Tartrate (Ambien -) 5 mg PO HS PRN PRN Reason: INSOMNIA Last Admin: 07/03/18 22:51 Dose: 5 mg A/P 78 y.o. male with PMH of metastatic bladder cancer, b/l hydronephrosis s/p stent and b/l nephrostomy (recently removed), hx of previous UTIs, DM, HTN, HLD , anemia presenting with dysuria, fever, chills, leukocytosis. Patient received C4 carboplatin and gemzar on 06/22/18 holding D8 gemzar UTI Sepsis Bacteremia Metastatic Bladder CA on gemzar/carboplatin Fever Leukocytosis - resolving KARTHIKEYAN DM BPH B/L hydronephrosis - s/p recent removal of nephrostomies On ertapenem For transfusion support as necessary for TUVP in am
[2018-07-04] MEDS: metFORMIN HCL 500 MG TABLET (FP) PO SCH ×2 (06:15→16:39)
[2018-07-04] MEDS: INSULIN SLIDING SCALE (NOVOLOG) 1 VIAL SQ SCH ×4 (06:15→22:45)
[2018-07-04 06:38] LABS: BASO % 1.5 % (0-2.0); EOS % 2.3 % (0-4.5); HEMATOCRIT 25.5 % (35.4-49); HEMOGLOBIN 8.3 GM/dL (11.7-16.9); LYMPH % 14.8 % (8-40); MCH 22.7 pg (25.7-33.7); MCHC 32.4 g/dl (32.0-35.9); MEAN CELL VOLUME 70.1 fl (80-96); MEAN PLT VOLUME 9.2 fl (7.5-11.1); MONO % 5.6 % (3.8-10.2); NEUT % 75.8 % (42.8-82.8); PLATELET COUNT 153 K/MM3 (134-434); RBC 3.64 M/mm3 (4.00-5.60); RDW 21.5 % (11.9-15.9); WHITE BLOOD COUNT 5.9 K/mm3 (4.0-10.0)
[2018-07-04 07:18] LABS: CHLORIDE 104 mmol/L (98-107); POTASSIUM 3.7 mmol/L (3.5-5.1); SODIUM 139 mmol/L (136-145)
[2018-07-04 07:34] LABS: ALBUMIN 2.9 g/dl (3.4-5.0); ALK PHOS 367 U/L (45-117); ANION GAP 9 MMOL/L (8-16); BILIRUBIN,TOTAL 0.9 mg/dL (0.2-1); BLOOD UREA NITROGEN 20 mg/dL (7-18); CALCIUM 8.6 mg/dL (8.5-10.1); CO2 26 mmol/L (21-32); CREATININE 0.7 mg/dL (0.55-1.3); GLUCOSE,RANDOM 110 mg/dL (74-106); SGOT/AST 27 U/L (15-37); SGPT/ALT 32 U/L (13-61); TOT PROT 6.5 g/dl (6.4-8.2)
[2018-07-04] MEDS ORDERED: PT OWN MED DRAWER 7, Y5N ONE (09:33)
[2018-07-04] MEDS: ERTAPENEM SODIUM 1 GM in SODIUM CHLORIDE 100 ML IVPB SCH (09:36)
[2018-07-04] MEDS: NIFEdipine E.R. 30 MG TABLET (FP) PO SCH (09:36)
[2018-07-04] MEDS: TAMSULOSIN HCL 0.4 MG CAP.ER.24H (FP) PO SCH (09:36)
[2018-07-04] MEDS ORDERED: MIDAZOLAM HCL 2 MG/2 ML SINGLE DOSE VIAL ONE (10:25)
[2018-07-04] MEDS ORDERED: ACETAMINOPHEN 325 MG TABLET (FP) PO PRN ×2 (10:26→12:46)
--- NOTE | 2018-07-04 10:31 | OP ---
Operative Note - Note: Operative Date: 07/04/18 Pre-Operative Diagnosis: bph with obstruction Operation: tuvp Findings: trilobar prostate hypertrophy Post-Operative Diagnosis: Same as Pre-op Surgeon: Josefa Delgadillo Anesthesia: General Specimens Removed: prastate chips Estimated Blood Loss (mls): 40 Drains & Tubes with Location: 24f 30cc 3way rahman Blood Volume Replaced (mls): 0 Fluid Volume Replaced (mls): 0 Operative Report Dictated: Yes
[2018-07-04] MEDS ORDERED: PROPOFOL 20 ML ONE (10:34)
[2018-07-04] MEDS ORDERED: SUCCINYLCHOLINE CHLORIDE 200 MG/10 ML VIAL ONE (10:35)
--- NOTE | 2018-07-04 10:49 | PN ---
Progress Note, Physician History of Present Illness: stable post procedure no complaints - Current Medication List Current Medications: Active Medications Acetaminophen (Tylenol -) 650 mg PO Q6H PRN PRN Reason: FEVER Last Admin: 07/03/18 22:01 Dose: 650 mg Acetaminophen (Tylenol -) 650 mg PO Q6H PRN PRN Reason: PAIN Finasteride (Proscar -) 5 mg PO DAILY [facility] Last Admin: 07/03/18 10:01 Dose: 5 mg Ertapenem 1 gm/ Sodium (Chloride) 100 mls @ 200 mls/hr IVPB DAILY [facility] Last Admin: 07/04/18 09:36 Dose: 200 mls/hr Insulin Aspart (Novolog Vial Sliding Scale -) 1 vial SQ ACHS [facility]; Protocol Last Admin: 07/04/18 06:15 Dose: Not Given Lidocaine HCl (Xylocaine 2% Jelly) 1 applic TP BID PRN PRN Reason: DISCOMFORT Last Admin: 06/29/18 10:51 Dose: 1 applic Metformin HCl (Glucophage -) 1,000 mg PO BIDAC [facility] Last Admin: 07/04/18 06:15 Dose: Not Given Metoclopramide HCl (Reglan -) 5 mg PO BID PRN PRN Reason: NAUSEA Metoprolol Succinate (Toprol Xl -) 100 mg PO DAILY [facility] Last Admin: 07/04/18 09:36 Dose: 100 mg Multivitamins/Minerals (Theragran-M) 1 each PO DAILY [facility] Last Admin: 07/03/18 11:57 Dose: 1 each Nifedipine (Procardia Xl -) 30 mg PO DAILY [facility] Last Admin: 07/04/18 09:36 Dose: 30 mg Oxycodone/Acetaminophen (Percocet 5/325 -) 1 combo PO Q4H PRN PRN Reason: PAIN LEVEL 1-5 Stop: 07/05/18 10:25 Tamsulosin HCl (Flomax -) 0.4 mg PO DAILY@0830 [facility] Last Admin: 07/04/18 09:36 Dose: Not Given Zolpidem Tartrate (Ambien -) 5 mg PO HS PRN PRN Reason: INSOMNIA Last Admin: 07/03/18 22:51 Dose: 5 mg - Objective Vital Signs: Vital Signs Temperature 97.9 F 07/04/18 05:49 Pulse Rate 74 07/04/18 05:49 Respiratory Rate 18 07/04/18 05:49 Blood Pressure 130/82 07/04/18 05:49 O2 Sat by Pulse Oximetry (%) 97 07/03/18 21:00 Constitutional: Yes: No Distress, Calm Cardiovascular: Yes: Regular Rate and Rhythm Respiratory: Yes: Regular, CTA Bilaterally Gastrointestinal: Yes: Normal Bowel Sounds, Soft Genitourinary: Yes: Rahman Present Musculoskeletal: Yes: WNL Extremities: Yes: WNL Neurological: Yes: Alert, Oriented Psychiatric: Yes: Alert, Oriented Labs: CBC, BMP 07/04/18 06:30 07/04/18 06:30 INR, PTT INR 1.19 (0.83-1.09) H 07/03/18 20:00 Assessment/Plan Problem List - Problems (1) Anemia Code(s): D64.9 - ANEMIA, UNSPECIFIED (2) Bladder cancer Code(s): C67.9 - MALIGNANT NEOPLASM OF BLADDER, UNSPECIFIED (3) Sepsis Code(s): A41.9 - SEPSIS, UNSPECIFIED ORGANISM Qualifiers: Sepsis type: sepsis due to unspecified organism Qualified Code(s): A41.9 - Sepsis, unspecified organism (4) UTI (urinary tract infection) Code(s): N39.0 - URINARY TRACT INFECTION, SITE NOT SPECIFIED (5) KARTHIKEYAN (acute kidney injury) Code(s): N17.9 - ACUTE KIDNEY FAILURE, UNSPECIFIED (6) BPH (benign prostatic hyperplasia) Code(s): N40.0 - BENIGN PROSTATIC HYPERPLASIA WITHOUT LOWER URINRY TRACT SYMP (7) Diabetes Code(s): E11.9 - TYPE 2 DIABETES MELLITUS WITHOUT COMPLICATIONS (8) Fever Code(s): R50.9 - FEVER, UNSPECIFIED Qualifiers: Fever type: unspecified Qualified Code(s): R50.9 - Fever, unspecified (9) HLD (hyperlipidemia) Code(s): E78.5 - HYPERLIPIDEMIA, UNSPECIFIED (10) Hematuria Code(s): R31.9 - HEMATURIA, UNSPECIFIED Qualifiers: Hematuria type: gross Qualified Code(s): R31.0 - Gross hematuria (11) Hydronephrosis Code(s): N13.30 - UNSPECIFIED HYDRONEPHROSIS Assessment/Plan 78 y.o. male with PMH of Bladder CA with metastasis to liver/bone on chemotherapy, b/l hydronephrosis s/p stent and b/l nephrostomy (recently removed ), hx of previous UTIs, DM, HTN, HLD, anemia presenting with dysuria, fever, chills, leukocytosis. Records/labs/imaging reviewed. ESBL + E. coli UTI and Bacteremia Sepsis Metastatic Bladder CA on chemotherapy DM BPH/ urinary retention - s/p rahman insertion B/L hydronephrosis - s/p recent removal of nephrostomies plan continue abx for 6 more days patient awaitng for procedure rest as per the team stable
[2018-07-04] MEDS ORDERED: ONDANSETRON 4 MG/2 ML VIAL IVPUSH PRN (11:31)
--- NOTE | 2018-07-04 12:26 | OP ---
DATE OF OPERATION: 07/04/2018 SURGEON: Josefa Delgadillo MD PREOPERATIVE DIAGNOSIS: Benign prostatic hypertrophy with obstruction. POSTOPERATIVE DIAGNOSIS: Benign prostatic hypertrophy with obstruction. OPERATIVE PROCEDURE: Transurethral vaporization of the prostate. ANESTHESIA: General. DESCRIPTION OF PROCEDURE: Under above stated anesthesia, patient was prepped and draped in the usual sterile manner. He was placed in the dorsal lithotomy position. Cystoscopy revealed a bullous edematous bladder and bilateral JJ stents. The prostate was obstructing. Vaporization of the prostate was commenced at 6 o'clock position of the right lateral lobe. This was carried on up to the 12 o'clock position. The same thing was done to the left lateral lobe. This was carried down from bladder neck to the area of the verumontanum. The median lobe was vaporized last. Prostate chips were evacuated with an [employer] evacuator. No active bleeding was noted. The bladder was emptied. The scope was removed. The [place] [place] 3-way 30-mL Galarza was inserted. This was connected to continuous bladder irrigation. The patient tolerated the procedure well. He returned to the recovery room in good condition. Cristina [id number]
[2018-07-04] MEDS ORDERED: oxyCODONE HCL 5 MG TABLET PO PRN (12:45)
--- NOTE | 2018-07-04 13:43 | PN ---
Progress Note (short form) - Note Progress Note: Patient seen and examined Underwent TUVP Tolerated well Last Vital Signs Temp Pulse Resp BP Pulse Ox 98.5 F 56 L 18 156/85 100 07/04/18 12:30 07/04/18 12:30 07/04/18 12:30 07/04/18 12:30 07/04/18 12:20 HEENT: FLETCHER, EOM Intact Cor: RSR, No murmurs, No gallops Lungs: Clear to P&A Abd: Soft, Normal bowel sounds, No organomegaly Ext:No significant edema Skin: No rashes, Integument intact Galarza catheter-draining clear urine CBC, BMP 07/04/18 06:30 07/04/18 06:30 Current Medications Generic Name Dose Route Start Last Admin Trade Name Freq PRN Reason Stop Dose Admin Acetaminophen 650 mg 06/25/18 22:48 07/03/18 22:01 Tylenol - PO 650 mg Q6H PRN Administration FEVER Acetaminophen 650 mg 07/04/18 10:26 Tylenol - PO Q6H PRN PAIN Acetaminophen 325 mg 07/04/18 12:46 Tylenol - PO 07/05/18 12:45 Q4H PRN PAIN LEVEL 1-5 Fentanyl 25 mcg 07/04/18 11:31 07/04/18 12:00 Sublimaze Injection - IVPUSH 25 mcg [id number] PRN Administration PAIN-PACU ORDER X 4 DOSES ONLY Finasteride 5 mg 06/26/18 10:00 07/03/18 10:01 Proscar - PO 5 mg DAILY LIT Administration Ertapenem 1 gm/ Sodium 100 mls @ 200 mls/hr 06/27/18 15:45 07/04/18 09:36 Chloride IVPB 200 mls/hr DAILY LIT Administration Sodium Chloride 1,000 mls @ 75 mls/hr 07/04/18 11:45 Normal Saline - IV ASDIR LIT Insulin Aspart 1 vial 06/26/18 07:00 07/04/18 06:15 Novolog Vial Sliding Scale - SQ Not Given ACHS LIT Protocol Lidocaine HCl 1 applic 06/29/18 09:48 06/29/18 10:51 Xylocaine 2% Jelly TP 1 applic BID PRN Administration DISCOMFORT Metformin HCl 1,000 mg 06/26/18 07:00 07/04/18 06:15 Glucophage - PO Not Given BIDAC LIT Metoclopramide HCl 5 mg 06/25/18 22:45 Reglan - PO BID PRN NAUSEA Metoprolol Succinate 100 mg 06/26/18 10:00 07/04/18 09:36 Toprol Xl - PO 100 mg DAILY LIT Administration Multivitamins/Minerals 1 each 06/26/18 10:00 07/03/18 11:57 Theragran-M PO 1 each DAILY LIT Administration Nifedipine 30 mg 06/26/18 10:00 07/04/18 09:36 Procardia Xl - PO 30 mg DAILY LIT Administration Ondansetron HCl 4 mg 07/04/18 11:31 Zofran Injection IVPUSH Q6H PRN NAUSEA AND/OR VOMITING Oxycodone HCl 5 mg 07/04/18 12:45 Roxicodone - PO 07/05/18 12:44 Q4H PRN PAIN LEVEL 1-5 Tamsulosin HCl 0.4 mg 06/26/18 08:30 07/04/18 09:36 Flomax - PO Not Given DAILY@0830 [facility] Zolpidem Tartrate 5 mg 07/03/18 22:41 07/03/18 22:51 Ambien - PO 5 mg HS PRN Administration INSOMNIA Impression : Microbiology 06/26/18 20:30 Blood - Peripheral Venous Blood Culture - Final NO GROWTH AFTER 5 DAYS INCUBATION 06/26/18 20:00 Blood - Peripheral Venous Blood Culture - Final NO GROWTH AFTER 5 DAYS INCUBATION 06/25/18 11:00 Blood - Peripheral Venous Blood Culture - Final NO GROWTH AFTER 5 DAYS INCUBATION 06/25/18 11:00 Blood - Peripheral Venous Blood Culture - Final Escherichia Coli Esbl [employer]iliary Equipment [employer] 06/25/18 13:00 Urine - Urine Clean Catch Urine Culture - Final Escherichia Coli Esbl Auxiliary Equipment Operator E.coli-ESBL - antibiotics per ID ?? outpatient Antibiotics via PICC , ?? alternative per ID Metastatic Bladder ca S/PTUVP Anemia
[2018-07-04] MEDS: MULTIVITAMINS THER W-MINERALS COMBO TABLET (FP) PO SCH (14:04)
[2018-07-04] MEDS: FINASTERIDE 5 MG TABLET (FP) PO SCH (14:04)
[2018-07-04] MEDS: SODIUM CHLORIDE 1,000 ML IV SCH (14:10)
[2018-07-04] MEDS: ACETAMINOPHEN 325 MG TABLET (FP) PO PRN ×2 (17:34→22:47)
--- NOTE | 2018-07-04 21:04 | PN ---
Progress Note, Physician History of Present Illness: Pt tolerated procedure - Current Medication List Current Medications: Active Medications Acetaminophen (Tylenol -) 650 mg PO Q6H PRN PRN Reason: FEVER Last Admin: 07/04/18 17:34 Dose: 650 mg Acetaminophen (Tylenol -) 650 mg PO Q6H PRN PRN Reason: PAIN Acetaminophen (Tylenol -) 325 mg PO Q4H PRN PRN Reason: PAIN LEVEL 1-5 Stop: 07/05/18 12:45 Fentanyl (Sublimaze Injection -) 25 mcg IVPUSH [id number] PRN PRN Reason: PAIN-PACU ORDER X 4 DOSES ONLY Last Admin: 07/04/18 12:00 Dose: 25 mcg Finasteride (Proscar -) 5 mg PO DAILY [facility] Last Admin: 07/04/18 14:04 Dose: 5 mg Ertapenem 1 gm/ Sodium (Chloride) 100 mls @ 200 mls/hr IVPB DAILY [facility] Last Admin: 07/04/18 09:36 Dose: 200 mls/hr Sodium Chloride (Normal Saline -) 1,000 mls @ 75 mls/hr IV ASDIR [facility] Last Admin: 07/04/18 14:10 Dose: 75 mls/hr Insulin Aspart (Novolog Vial Sliding Scale -) 1 vial SQ ACHS [facility]; Protocol Last Admin: 07/04/18 16:42 Dose: 4 units Lidocaine HCl (Xylocaine 2% Jelly) 1 applic TP BID PRN PRN Reason: DISCOMFORT Last Admin: 06/29/18 10:51 Dose: 1 applic Metformin HCl (Glucophage -) 1,000 mg PO BIDAC [facility] Last Admin: 07/04/18 16:39 Dose: 1,000 mg Metoclopramide HCl (Reglan -) 5 mg PO BID PRN PRN Reason: NAUSEA Metoprolol Succinate (Toprol Xl -) 100 mg PO DAILY [facility] Last Admin: 07/04/18 09:36 Dose: 100 mg Multivitamins/Minerals (Theragran-M) 1 each PO DAILY [facility] Last Admin: 07/04/18 14:04 Dose: 1 each Nifedipine (Procardia Xl -) 30 mg PO DAILY [facility] Last Admin: 07/04/18 09:36 Dose: 30 mg Ondansetron HCl (Zofran Injection) 4 mg IVPUSH Q6H PRN PRN Reason: NAUSEA AND/OR VOMITING Oxycodone HCl (Roxicodone -) 5 mg PO Q4H PRN PRN Reason: PAIN LEVEL 1-5 Stop: 07/05/18 12:44 Tamsulosin HCl (Flomax -) 0.4 mg PO DAILY@0830 [facility] Last Admin: 07/04/18 09:36 Dose: Not Given Zolpidem Tartrate (Ambien -) 5 mg PO HS PRN PRN Reason: INSOMNIA Last Admin: 07/03/18 22:51 Dose: 5 mg - Objective Vital Signs: Vital Signs Temperature 97.2 F L 07/04/18 17:31 Pulse Rate 65 07/04/18 17:31 Respiratory Rate 20 07/04/18 17:31 Blood Pressure 150/73 07/04/18 17:31 O2 Sat by Pulse Oximetry (%) 96 07/04/18 17:31 Neck: Yes: WNL, Supple Cardiovascular: Yes: WNL, Regular Rate and Rhythm Respiratory: Yes: WNL, Regular Gastrointestinal: Yes: WNL, Normal Bowel Sounds, Soft Labs: CBC, BMP 07/04/18 06:30 07/04/18 06:30 INR, PTT INR 1.19 (0.83-1.09) H 07/03/18 20:00 Problem List - Problems (1) BPH (benign prostatic hyperplasia) Assessment/Plan: Bladder obstruction S/P TUVP Cont fluids As per uro Code(s): N40.0 - BENIGN PROSTATIC HYPERPLASIA WITHOUT LOWER URINRY TRACT SYMP (2) UTI (urinary tract infection) Assessment/Plan: Cont IV Ertapenem x 6 more days May need PICC for outpt IV antibx As per ID Urine culture (+) for ESBL Repeat blood cultures remain negative Code(s): N39.0 - URINARY TRACT INFECTION, SITE NOT SPECIFIED (3) Bladder cancer Assessment/Plan: As per onco Chemotx on hold due to infection Code(s): C67.9 - MALIGNANT NEOPLASM OF BLADDER, UNSPECIFIED (4) Anemia Assessment/Plan: S/P transfusion 1 unit PRBC's Monitor H/H Code(s): D64.9 - ANEMIA, UNSPECIFIED (5) Diabetes Code(s): E11.9 - TYPE 2 DIABETES MELLITUS WITHOUT COMPLICATIONS (6) HLD (hyperlipidemia) Code(s): E78.5 - HYPERLIPIDEMIA, UNSPECIFIED (7) Hypertension Code(s): I10 - ESSENTIAL (PRIMARY) HYPERTENSION Qualifiers: Hypertension type: other secondary hypertension Qualified Code(s): I15.8 - Other secondary hypertension
[2018-07-04] MEDS ORDERED: INSULIN (NOVOLOG) ASPART 100 UNITS/ML 10ML VIAL ONE (22:42)
[2018-07-04] MEDS: ZOLPIDEM TARTRATE 5 MG TABLET PO PRN (22:48)
[2018-07-05] MEDS: metFORMIN HCL 500 MG TABLET (FP) PO SCH ×2 (06:27→17:33)
[2018-07-05] MEDS: INSULIN SLIDING SCALE (NOVOLOG) 1 VIAL SQ SCH ×4 (06:34→21:04)
[2018-07-05] MEDS ORDERED: INSULIN (LEVEMIR) 100 UNITS/ML UNITS SQ ONE (06:37)
[2018-07-05 07:52] LABS: BASO % 0.8 % (0-2.0); EOS % 1.7 % (0-4.5); HEMATOCRIT 28.4 % (35.4-49); HEMOGLOBIN 9.1 GM/dL (11.7-16.9); MCH 22.7 pg (25.7-33.7); MEAN CELL VOLUME 70.8 fl (80-96); MEAN PLT VOLUME 9.4 fl (7.5-11.1); MONO % 5.8 % (3.8-10.2); NEUT % 74.7 % (42.8-82.8); PLATELET COUNT 173 K/MM3 (134-434); RBC 4.02 M/mm3 (4.00-5.60); RDW 21.1 % (11.9-15.9); WHITE BLOOD COUNT 6.6 K/mm3 (4.0-10.0)
[2018-07-05 08:19] LABS: CHLORIDE 107 mmol/L (98-107); POTASSIUM 3.8 mmol/L (3.5-5.1); SODIUM 140 mmol/L (136-145)
[2018-07-05] MEDS: TAMSULOSIN HCL 0.4 MG CAP.ER.24H (FP) PO SCH (08:39)
[2018-07-05 08:45] LABS: ALBUMIN 2.8 g/dl (3.4-5.0); ALK PHOS 338 U/L (45-117); ANION GAP 9 MMOL/L (8-16); BLOOD UREA NITROGEN 16 mg/dL (7-18); CALCIUM 8.3 mg/dL (8.5-10.1); CO2 24 mmol/L (21-32); CREATININE 0.7 mg/dL (0.55-1.3); GLUCOSE,RANDOM 103 mg/dL (74-106); SGOT/AST 25 U/L (15-37); SGPT/ALT 28 U/L (13-61); TOT PROT 6.4 g/dl (6.4-8.2)
--- NOTE | 2018-07-05 09:29 | PN ---
Progress Note (short form) - Note Progress Note: UROLOGY Note: Patient s/p TURP/TUVP 07/04 Galarza with CBI Clear Abd Soft, NT/ND, Urine Wolsey, No Clots Plan: D/C CBI Encourage PO Fluids' Out of Bed as Tolerates
--- NOTE | 2018-07-05 09:31 | PN ---
Progress Note, Physician Chief Complaint: doing well no issues on cbi urine clear - Current Medication List Current Medications: Active Medications Acetaminophen (Tylenol -) 650 mg PO Q6H PRN PRN Reason: FEVER Last Admin: 07/04/18 22:47 Dose: 650 mg Acetaminophen (Tylenol -) 650 mg PO Q6H PRN PRN Reason: PAIN Acetaminophen (Tylenol -) 325 mg PO Q4H PRN PRN Reason: PAIN LEVEL 1-5 Stop: 07/05/18 12:45 Fentanyl (Sublimaze Injection -) 25 mcg IVPUSH [id number] PRN PRN Reason: PAIN-PACU ORDER X 4 DOSES ONLY Last Admin: 07/04/18 12:00 Dose: 25 mcg Finasteride (Proscar -) 5 mg PO DAILY [facility] Last Admin: 07/04/18 14:04 Dose: 5 mg Ertapenem 1 gm/ Sodium (Chloride) 100 mls @ 200 mls/hr IVPB DAILY [facility] Last Admin: 07/04/18 09:36 Dose: 200 mls/hr Sodium Chloride (Normal Saline -) 1,000 mls @ 75 mls/hr IV ASDIR [facility] Last Admin: 07/04/18 14:10 Dose: 75 mls/hr Insulin Aspart (Novolog Vial Sliding Scale -) 1 vial SQ ACHS [facility]; Protocol Last Admin: 07/05/18 06:34 Dose: Not Given Lidocaine HCl (Xylocaine 2% Jelly) 1 applic TP BID PRN PRN Reason: DISCOMFORT Last Admin: 06/29/18 10:51 Dose: 1 applic Metformin HCl (Glucophage -) 1,000 mg PO BIDAC [facility] Last Admin: 07/05/18 06:27 Dose: 1,000 mg Metoclopramide HCl (Reglan -) 5 mg PO BID PRN PRN Reason: NAUSEA Metoprolol Succinate (Toprol Xl -) 100 mg PO DAILY [facility] Last Admin: 07/04/18 09:36 Dose: 100 mg Multivitamins/Minerals (Theragran-M) 1 each PO DAILY [facility] Last Admin: 07/04/18 14:04 Dose: 1 each Nifedipine (Procardia Xl -) 30 mg PO DAILY [facility] Last Admin: 07/04/18 09:36 Dose: 30 mg Ondansetron HCl (Zofran Injection) 4 mg IVPUSH Q6H PRN PRN Reason: NAUSEA AND/OR VOMITING Oxycodone HCl (Roxicodone -) 5 mg PO Q4H PRN PRN Reason: PAIN LEVEL 1-5 Stop: 07/05/18 12:44 Tamsulosin HCl (Flomax -) 0.4 mg PO DAILY@0830 [facility] Last Admin: 07/05/18 08:39 Dose: 0.4 mg Zolpidem Tartrate (Ambien -) 5 mg PO HS PRN PRN Reason: INSOMNIA Last Admin: 07/04/18 22:48 Dose: 5 mg - Objective Vital Signs: Vital Signs Temperature 98.3 F 07/05/18 06:27 Pulse Rate 70 07/05/18 06:27 Respiratory Rate 20 07/05/18 06:27 Blood Pressure 162/96 07/05/18 06:27 O2 Sat by Pulse Oximetry (%) 96 07/04/18 21:00 Constitutional: Yes: No Distress, Calm Cardiovascular: Yes: Regular Rate and Rhythm Respiratory: Yes: Regular, CTA Bilaterally Gastrointestinal: Yes: Normal Bowel Sounds, Soft Genitourinary: Yes: Rahman Present Musculoskeletal: Yes: WNL Extremities: Yes: WNL Neurological: Yes: Alert, Oriented Psychiatric: Yes: Alert, Oriented Labs: CBC, BMP 07/05/18 07:10 07/05/18 07:10 INR, PTT INR 1.19 (0.83-1.09) H 07/03/18 20:00 Assessment/Plan Problem List - Problems (1) Anemia Code(s): D64.9 - ANEMIA, UNSPECIFIED (2) Bladder cancer Code(s): C67.9 - MALIGNANT NEOPLASM OF BLADDER, UNSPECIFIED (3) Sepsis Code(s): A41.9 - SEPSIS, UNSPECIFIED ORGANISM Qualifiers: Sepsis type: sepsis due to unspecified organism Qualified Code(s): A41.9 - Sepsis, unspecified organism (4) UTI (urinary tract infection) Code(s): N39.0 - URINARY TRACT INFECTION, SITE NOT SPECIFIED (5) KARTHIKEYAN (acute kidney injury) Code(s): N17.9 - ACUTE KIDNEY FAILURE, UNSPECIFIED (6) BPH (benign prostatic hyperplasia) Code(s): N40.0 - BENIGN PROSTATIC HYPERPLASIA WITHOUT LOWER URINRY TRACT SYMP (7) Diabetes Code(s): E11.9 - TYPE 2 DIABETES MELLITUS WITHOUT COMPLICATIONS (8) Fever Code(s): R50.9 - FEVER, UNSPECIFIED Qualifiers: Fever type: unspecified Qualified Code(s): R50.9 - Fever, unspecified (9) HLD (hyperlipidemia) Code(s): E78.5 - HYPERLIPIDEMIA, UNSPECIFIED (10) Hematuria Code(s): R31.9 - HEMATURIA, UNSPECIFIED Qualifiers: Hematuria type: gross Qualified Code(s): R31.0 - Gross hematuria (11) Hydronephrosis Code(s): N13.30 - UNSPECIFIED HYDRONEPHROSIS Assessment/Plan 78 y.o. male with PMH of Bladder CA with metastasis to liver/bone on chemotherapy, b/l hydronephrosis s/p stent and b/l nephrostomy (recently removed ), hx of previous UTIs, DM, HTN, HLD, anemia presenting with dysuria, fever, chills, leukocytosis. Records/labs/imaging reviewed. ESBL + E. coli UTI and Bacteremia Sepsis Metastatic Bladder CA on chemotherapy DM BPH/ urinary retention - s/p rahman insertion B/L hydronephrosis - s/p recent removal of nephrostomies plan continue abx for 6 more days urine clear rest as per the team stable
[2018-07-05] MEDS ORDERED: PT OWN MED DRAWER 7, Y5N ONE (09:40)
[2018-07-05] MEDS: NIFEdipine E.R. 30 MG TABLET (FP) PO SCH (09:44)
[2018-07-05] MEDS: ERTAPENEM SODIUM 1 GM in SODIUM CHLORIDE 100 ML IVPB SCH (09:44)
[2018-07-05] MEDS: FINASTERIDE 5 MG TABLET (FP) PO SCH (09:44)
[2018-07-05] MEDS: MULTIVITAMINS THER W-MINERALS COMBO TABLET (FP) PO SCH (09:44)
[2018-07-05] MEDS: SODIUM CHLORIDE 1,000 ML IV SCH (12:54)
--- NOTE | 2018-07-05 15:48 | PATH ---
Surgical Pathology Report Patient Name: MALATHI CHUA JR Med. Rec. #: [id number] /Age/Gender: 1940 (Age: 78) / M Account: [id number] Location: [facility] MED/SURG Taken: 07/04/2018 Received: 07/04/2018 Reported: 07/05/2018 Physicians: Cristina Lares M.D. Specimen(s) Received PROSTATE CHIPS Clinical History BPH Final Diagnosis PROSTATE, TRANSURETHRAL RESECTION AND VAPORIZATION PROSTATE: BENIGN STROMAL TISSUE, UROTHELIAL MUCOSA WITH ACUTE INFLAMMATION, AND SQUAMOUS METAPLASIA. Electronically Signed Sandi Rose M.D. Gross Description Received in formalin labeled "prostate chips," is a less than 1 g, 1.0 x 0.7 x 0.1 cm aggregate of stewart soft tissue fragments. The formalin is filtered and the specimen is entirely submitted in one cassette. 07/04/2018 saudi07/04/2018
[2018-07-05] MEDS: ACETAMINOPHEN 325 MG TABLET (FP) PO PRN ×2 (15:58→23:19)
[2018-07-05] MEDS ORDERED: INSULIN (NOVOLOG) ASPART 100 UNITS/ML 10ML VIAL ONE ×2 (17:31→17:57)
--- NOTE | 2018-07-05 21:01 | PN ---
Progress Note, Physician History of Present Illness: No new complaints - Current Medication List Current Medications: Active Medications Acetaminophen (Tylenol -) 650 mg PO Q6H PRN PRN Reason: FEVER Last Admin: 07/05/18 15:58 Dose: 650 mg Acetaminophen (Tylenol -) 650 mg PO Q6H PRN PRN Reason: PAIN Fentanyl (Sublimaze Injection -) 25 mcg IVPUSH [id number] PRN PRN Reason: PAIN-PACU ORDER X 4 DOSES ONLY Last Admin: 07/04/18 12:00 Dose: 25 mcg Finasteride (Proscar -) 5 mg PO DAILY [facility] Last Admin: 07/05/18 09:44 Dose: 5 mg Ertapenem 1 gm/ Sodium (Chloride) 100 mls @ 200 mls/hr IVPB DAILY [facility] Last Admin: 07/05/18 09:44 Dose: 200 mls/hr Sodium Chloride (Normal Saline -) 1,000 mls @ 75 mls/hr IV ASDIR [facility] Last Admin: 07/05/18 12:54 Dose: 75 mls/hr Insulin Aspart (Novolog Vial Sliding Scale -) 1 vial SQ [facility]; Protocol Last Admin: 07/05/18 17:33 Dose: 2 units Lidocaine HCl (Xylocaine 2% Jelly) 1 applic TP BID PRN PRN Reason: DISCOMFORT Last Admin: 06/29/18 10:51 Dose: 1 applic Metformin HCl (Glucophage -) 1,000 mg PO BIDAC [facility] Last Admin: 07/05/18 17:33 Dose: 1,000 mg Metoclopramide HCl (Reglan -) 5 mg PO BID PRN PRN Reason: NAUSEA Metoprolol Succinate (Toprol Xl -) 100 mg PO DAILY [facility] Last Admin: 07/05/18 09:44 Dose: 100 mg Multivitamins/Minerals (Theragran-M) 1 each PO DAILY [facility] Last Admin: 07/05/18 09:44 Dose: 1 each Nifedipine (Procardia Xl -) 30 mg PO DAILY [facility] Last Admin: 07/05/18 09:44 Dose: 30 mg Ondansetron HCl (Zofran Injection) 4 mg IVPUSH Q6H PRN PRN Reason: NAUSEA AND/OR VOMITING Tamsulosin HCl (Flomax -) 0.4 mg PO DAILY@0830 [facility] Last Admin: 07/05/18 08:39 Dose: 0.4 mg Zolpidem Tartrate (Ambien -) 5 mg PO HS PRN PRN Reason: INSOMNIA Last Admin: 07/04/18 22:48 Dose: 5 mg - Objective Vital Signs: Vital Signs Temperature 97.8 F 07/05/18 20:08 Pulse Rate 80 07/05/18 20:08 Respiratory Rate 12 07/05/18 20:08 Blood Pressure 110/70 07/05/18 20:08 O2 Sat by Pulse Oximetry (%) 96 07/05/18 09:00 Cardiovascular: Yes: WNL, Regular Rate and Rhythm Respiratory: Yes: WNL, Regular, CTA Bilaterally Gastrointestinal: Yes: WNL, Normal Bowel Sounds, Soft Labs: CBC, BMP 07/05/18 07:10 07/05/18 07:10 INR, PTT INR 1.19 (0.83-1.09) H 07/03/18 20:00 Problem List - Problems (1) BPH (benign prostatic hyperplasia) Assessment/Plan: Bladder obstruction S/P TUVP Galarza as per uro Code(s): N40.0 - BENIGN PROSTATIC HYPERPLASIA WITHOUT LOWER URINRY TRACT SYMP (2) UTI (urinary tract infection) Assessment/Plan: Cont IV Ertapenem x 5 more days May be able to use nancy cath for IV antibxs? As per ID Urine culture (+) for ESBL Repeat blood cultures remain negative Code(s): N39.0 - URINARY TRACT INFECTION, SITE NOT SPECIFIED (3) Bladder cancer Assessment/Plan: As per onco Chemotx on hold due to infection Code(s): C67.9 - MALIGNANT NEOPLASM OF BLADDER, UNSPECIFIED (4) Anemia Assessment/Plan: S/P transfusion 1 unit PRBC's Monitor H/H Code(s): D64.9 - ANEMIA, UNSPECIFIED (5) Diabetes Code(s): E11.9 - TYPE 2 DIABETES MELLITUS WITHOUT COMPLICATIONS (6) HLD (hyperlipidemia) Code(s): E78.5 - HYPERLIPIDEMIA, UNSPECIFIED (7) Hypertension Code(s): I10 - ESSENTIAL (PRIMARY) HYPERTENSION Qualifiers: Hypertension type: other secondary hypertension Qualified Code(s): I15.8 - Other secondary hypertension
--- NOTE | 2018-07-05 22:34 | PN ---
Progress Note (short form) - Note Progress Note: PAtient seen and examined Feels better Ongoing CBI AFVSS Cor: RSR, No murmurs, No gallops Lungs: Clear to P&A Abd: Soft, Normal bowel sounds, No organomegaly Ext:No significant edema Labs/MEds reviewed A/P 78 y.o. male with PMH of metastatic bladder cancer, b/l hydronephrosis s/p stent and b/l nephrostomy (recently removed), hx of previous UTIs, DM, HTN, HLD , anemia presenting with dysuria, fever, chills, leukocytosis. Patient received C4 carboplatin and gemzar on 06/22/18 holding D8 gemzar UTI Sepsis Bacteremia Metastatic Bladder CA on gemzar/carboplatin Fever Leukocytosis - resolving KARTHIKEYAN DM BPH B/L hydronephrosis - s/p recent removal of nephrostomies On ertapenem For transfusion support as necessary s/p TUVP will discuss with primary team
[2018-07-05] MEDS: ZOLPIDEM TARTRATE 5 MG TABLET PO PRN (23:20)
[2018-07-06] MEDS: INSULIN SLIDING SCALE (NOVOLOG) 1 VIAL SQ SCH ×3 (06:22→16:49)
[2018-07-06] MEDS: metFORMIN HCL 500 MG TABLET (FP) PO SCH ×2 (06:45→16:48)
[2018-07-06] MEDS: TAMSULOSIN HCL 0.4 MG CAP.ER.24H (FP) PO SCH (08:42)
--- NOTE | 2018-07-06 09:10 | PN ---
Progress Note, Physician History of Present Illness: stable slightly blood tinged urine foleys still in place no complaints - Current Medication List Current Medications: Active Medications Acetaminophen (Tylenol -) 650 mg PO Q6H PRN PRN Reason: FEVER Last Admin: 07/05/18 23:19 Dose: 650 mg Acetaminophen (Tylenol -) 650 mg PO Q6H PRN PRN Reason: PAIN Fentanyl (Sublimaze Injection -) 25 mcg IVPUSH [id number] PRN PRN Reason: PAIN-PACU ORDER X 4 DOSES ONLY Last Admin: 07/04/18 12:00 Dose: 25 mcg Finasteride (Proscar -) 5 mg PO DAILY [facility] Last Admin: 07/05/18 09:44 Dose: 5 mg Ertapenem 1 gm/ Sodium (Chloride) 100 mls @ 200 mls/hr IVPB DAILY [facility] Last Admin: 07/05/18 09:44 Dose: 200 mls/hr Sodium Chloride (Normal Saline -) 1,000 mls @ 75 mls/hr IV ASDIR [facility] Last Admin: 07/05/18 12:54 Dose: 75 mls/hr Insulin Aspart (Novolog Vial Sliding Scale -) 1 vial SQ [facility]; Protocol Last Admin: 07/06/18 06:22 Dose: Not Given Lidocaine HCl (Xylocaine 2% Jelly) 1 applic TP BID PRN PRN Reason: DISCOMFORT Last Admin: 06/29/18 10:51 Dose: 1 applic Metformin HCl (Glucophage -) 1,000 mg PO BIDAC [facility] Last Admin: 07/06/18 06:45 Dose: 1,000 mg Metoclopramide HCl (Reglan -) 5 mg PO BID PRN PRN Reason: NAUSEA Metoprolol Succinate (Toprol Xl -) 100 mg PO DAILY [facility] Last Admin: 07/05/18 09:44 Dose: 100 mg Multivitamins/Minerals (Theragran-M) 1 each PO DAILY [facility] Last Admin: 07/05/18 09:44 Dose: 1 each Nifedipine (Procardia Xl -) 30 mg PO DAILY [facility] Last Admin: 07/05/18 09:44 Dose: 30 mg Ondansetron HCl (Zofran Injection) 4 mg IVPUSH Q6H PRN PRN Reason: NAUSEA AND/OR VOMITING Tamsulosin HCl (Flomax -) 0.4 mg PO DAILY@0830 [facility] Last Admin: 07/06/18 08:42 Dose: 0.4 mg Zolpidem Tartrate (Ambien -) 5 mg PO HS PRN PRN Reason: INSOMNIA Last Admin: 07/05/18 23:20 Dose: 5 mg - Objective Vital Signs: Vital Signs Temperature 98.7 F 07/06/18 06:42 Pulse Rate 72 07/06/18 06:42 Respiratory Rate 20 07/06/18 06:42 Blood Pressure 148/82 07/06/18 06:42 O2 Sat by Pulse Oximetry (%) 96 07/05/18 09:00 Constitutional: Yes: No Distress, Calm Cardiovascular: Yes: Regular Rate and Rhythm Respiratory: Yes: Regular, CTA Bilaterally Gastrointestinal: Yes: Normal Bowel Sounds, Soft Genitourinary: Yes: Rahman Present Musculoskeletal: Yes: WNL Extremities: Yes: WNL Neurological: Yes: Alert, Oriented Labs: CBC, BMP 07/05/18 07:10 07/05/18 07:10 INR, PTT INR 1.19 (0.83-1.09) H 07/03/18 20:00 Assessment/Plan Problem List - Problems (1) Anemia Code(s): D64.9 - ANEMIA, UNSPECIFIED (2) Bladder cancer Code(s): C67.9 - MALIGNANT NEOPLASM OF BLADDER, UNSPECIFIED (3) Sepsis Code(s): A41.9 - SEPSIS, UNSPECIFIED ORGANISM Qualifiers: Sepsis type: sepsis due to unspecified organism Qualified Code(s): A41.9 - Sepsis, unspecified organism (4) UTI (urinary tract infection) Code(s): N39.0 - URINARY TRACT INFECTION, SITE NOT SPECIFIED (5) KARTHIKEYAN (acute kidney injury) Code(s): N17.9 - ACUTE KIDNEY FAILURE, UNSPECIFIED (6) BPH (benign prostatic hyperplasia) Code(s): N40.0 - BENIGN PROSTATIC HYPERPLASIA WITHOUT LOWER URINRY TRACT SYMP (7) Diabetes Code(s): E11.9 - TYPE 2 DIABETES MELLITUS WITHOUT COMPLICATIONS (8) Fever Code(s): R50.9 - FEVER, UNSPECIFIED Qualifiers: Fever type: unspecified Qualified Code(s): R50.9 - Fever, unspecified (9) HLD (hyperlipidemia) Code(s): E78.5 - HYPERLIPIDEMIA, UNSPECIFIED (10) Hematuria Code(s): R31.9 - HEMATURIA, UNSPECIFIED Qualifiers: Hematuria type: gross Qualified Code(s): R31.0 - Gross hematuria (11) Hydronephrosis Code(s): N13.30 - UNSPECIFIED HYDRONEPHROSIS Assessment/Plan 78 y.o. male with PMH of Bladder CA with metastasis to liver/bone on chemotherapy, b/l hydronephrosis s/p stent and b/l nephrostomy (recently removed ), hx of previous UTIs, DM, HTN, HLD, anemia presenting with dysuria, fever, chills, leukocytosis. Records/labs/imaging reviewed. ESBL + E. coli UTI and Bacteremia Sepsis Metastatic Bladder CA on chemotherapy DM BPH/ urinary retention - s/p rahman insertion B/L hydronephrosis - s/p recent removal of nephrostomies plan continue abx for 5 more days urine clear rest as per the team stable
[2018-07-06] MEDS: NIFEdipine E.R. 30 MG TABLET (FP) PO SCH (11:01)
[2018-07-06] MEDS: ERTAPENEM SODIUM 1 GM in SODIUM CHLORIDE 100 ML IVPB SCH (11:01)
[2018-07-06] MEDS: MULTIVITAMINS THER W-MINERALS COMBO TABLET (FP) PO SCH (11:02)
[2018-07-06] MEDS: FINASTERIDE 5 MG TABLET (FP) PO SCH (11:02)
[2018-07-06] MEDS: SODIUM CHLORIDE 1,000 ML IV SCH (13:03)
[2018-07-06 17:42] VITALS: BP 109/57; PULSE 77; TEMP 98.2
== END 2018-07-06 18:45 | disposition home or self-care (01) | DRG 854 ==
LOC: JER 09:48 → JERBED 10:42 → J8W 22:13
PROVIDERS: ADMIT Internal Medicine; ATTEND Internal Medicine
PROC: 30233N1 Transfusion of Nonautologous Red Blood Cells into Peripheral Vein, Percutaneous Approach (ICD-10-PCS; 2018-06-25)
PROC: 0V507ZZ Destruction of Prostate, Via Natural or Artificial Opening (ICD-10-PCS; principal; 2018-07-04 11:00)
DX: A41.51 Sepsis due to Escherichia coli [E. coli] (principal); C78.7 Secondary malignant neoplasm of liver and intrahepatic bile duct; C79.51 Secondary malignant neoplasm of bone; N17.9 Acute kidney failure, unspecified; N13.6 Pyonephrosis; D62 Acute posthemorrhagic anemia; C67.9 Malignant neoplasm of bladder, unspecified; E78.5 Hyperlipidemia, unspecified; I10 Essential (primary) hypertension; D64.9 Anemia, unspecified; E11.9 Type 2 diabetes mellitus without complications; D72.829 Elevated white blood cell count, unspecified; R31.0 Gross hematuria; N40.1 Benign prostatic hyperplasia with lower urinary tract symptoms; R33.8 Other retention of urine; E87.6 Hypokalemia
CPT/HCPCS: 36415; 36430; 71045-TC-FY; 80053; 80076; 81003; 81015; 82803; 82962; 83605; 83735; 84100; 84484; 85025; 85610; 85730; 86850; 86900; 86901; 86922; 87040; 87086; 87186; 88305-TC; 93005; 93010; 94760; 96361; 96367; 96372; 96375; 96413; 96417; 99285-25; J0131; J1100; J1447; J1644; J2469; J7030; P9038; P9058

== ENCOUNTER 2018-07-07 08:16 | Day surgery (SDC) | payer OTHER ==
[2018-07-07] MEDS ORDERED: ERTAPENEM SODIUM 1 GM in SODIUM CHLORIDE 50 ML IVPB ONE (09:30)
[2018-07-07 16:54] VITALS: BP 138/89; PULSE 91; TEMP 97.9
[2018-07-07] MEDS ORDERED: PORTA CATH FLUSH 10 ML IVPUSH ONE (16:54)
== END 2018-07-07 11:00 | disposition home or self-care (01) ==
LOC: JINFUSION 08:16 → J7W 08:35 → JINFUSION 11:00
PROVIDERS: ATTEND Internal Medicine Infectious Disease
DX: A41.51 Sepsis due to Escherichia coli [E. coli] (principal); C78.7 Secondary malignant neoplasm of liver and intrahepatic bile duct; C79.51 Secondary malignant neoplasm of bone
CPT/HCPCS: 96365

== ENCOUNTER 2018-07-08 08:31 | Day surgery (SDC) | payer OTHER ==
[2018-07-08] MEDS ORDERED: ERTAPENEM SODIUM 1 GM in SODIUM CHLORIDE 50 ML IVPB ONE (10:00)
[2018-07-08 16:42] VITALS: BP 124/74; PULSE 72
[2018-07-08] MEDS ORDERED: PORTA CATH FLUSH 10 ML IVPUSH ONE (16:42)
[2018-07-08 16:44] VITALS: TEMP 98.4
== END 2018-07-08 10:30 | disposition home or self-care (01) ==
LOC: JINFUSION 08:31 → J7W 08:32 → JINFUSION 10:30
PROVIDERS: ATTEND Internal Medicine Infectious Disease
DX: A41.51 Sepsis due to Escherichia coli [E. coli] (principal); C78.7 Secondary malignant neoplasm of liver and intrahepatic bile duct; C79.51 Secondary malignant neoplasm of bone
CPT/HCPCS: 96365

== ENCOUNTER 2018-07-09 08:39 | Day surgery (SDC) | payer OTHER ==
[2018-07-09] MEDS ORDERED: ERTAPENEM SODIUM 1 GM in SODIUM CHLORIDE 50 ML IVPB ONE (10:00)
[2018-07-09] MEDS ORDERED: PORTA CATH FLUSH 10 ML IVPUSH ONE (10:30)
[2018-07-09 10:39] VITALS: BP 128/78; PULSE 80; TEMP 97.9
== END 2018-07-09 11:20 | disposition home or self-care (01) ==
LOC: JINFUSION 08:39 → J7W 08:39 → JINFUSION 11:20
PROVIDERS: ATTEND Internal Medicine Infectious Disease
DX: A41.51 Sepsis due to Escherichia coli [E. coli] (principal); C78.7 Secondary malignant neoplasm of liver and intrahepatic bile duct; C79.51 Secondary malignant neoplasm of bone
CPT/HCPCS: 96365

== ENCOUNTER 2018-07-10 09:28 | Day surgery (SDC) | payer OTHER ==
[2018-07-10] MEDS ORDERED: ERTAPENEM SODIUM 1 GM in SODIUM CHLORIDE 50 ML IVPB ONE (10:00)
[2018-07-10 12:54] VITALS: BP 126/69; PULSE 83; TEMP 98.2
[2018-07-10] MEDS ORDERED: PORTA CATH FLUSH 10 ML IVPUSH ONE (13:08)
== END 2018-07-10 10:40 | disposition home or self-care (01) ==
LOC: JINFUSION 09:28 → J7W 09:29 → JINFUSION 10:40
PROVIDERS: ATTEND Internal Medicine Infectious Disease
DX: A41.51 Sepsis due to Escherichia coli [E. coli] (principal); C78.7 Secondary malignant neoplasm of liver and intrahepatic bile duct; C79.51 Secondary malignant neoplasm of bone
CPT/HCPCS: 96365

== ENCOUNTER 2018-07-11 09:12 | Day surgery (SDC) | payer OTHER ==
[2018-07-11] MEDS ORDERED: ERTAPENEM SODIUM 1 GM in SODIUM CHLORIDE 50 ML IVPB ONE (11:00)
[2018-07-11] MEDS ORDERED: PORTA CATH FLUSH 10 ML IVPUSH ONE (15:36)
[2018-07-11 15:37] VITALS: BP 145/86; PULSE 87; TEMP 97.5
== END 2018-07-11 12:20 | disposition home or self-care (01) ==
LOC: JINFUSION 09:12 → J7W 09:48 → JINFUSION 12:20
PROVIDERS: ATTEND Internal Medicine Infectious Disease
DX: A41.51 Sepsis due to Escherichia coli [E. coli] (principal); C78.7 Secondary malignant neoplasm of liver and intrahepatic bile duct; C79.51 Secondary malignant neoplasm of bone
CPT/HCPCS: 96365

== ENCOUNTER 2018-07-12 08:59 | Day surgery (SDC) | payer OTHER ==
[2018-07-12] MEDS ORDERED: ERTAPENEM SODIUM 1 GM in SODIUM CHLORIDE 100 ML IVPB ONE (10:00)
[2018-07-12 10:05] VITALS: TEMP 97.7
[2018-07-12] MEDS ORDERED: PORTA CATH FLUSH 10 ML IVPUSH ONE (10:05)
[2018-07-12 14:11] VITALS: BP 113/59; PULSE 56
== END 2018-07-12 11:30 | disposition home or self-care (01) ==
LOC: JINFUSION 08:59 → J7W 09:00 → JINFUSION 11:30
PROVIDERS: ATTEND Internal Medicine Infectious Disease
DX: A41.51 Sepsis due to Escherichia coli [E. coli] (principal); C78.7 Secondary malignant neoplasm of liver and intrahepatic bile duct; C79.51 Secondary malignant neoplasm of bone
CPT/HCPCS: 96365

== ENCOUNTER 2018-07-14 20:43 | Inpatient (IN) | payer OTHER ==
--- NOTE | 2018-07-14 21:00 | PDOC ---
History of Present Illness - General Chief Complaint: Injury Stated Complaint: FALL Time Seen by Provider: 07/14/18 20:59 History Source: Patient Exam Limitations: No Limitations - History of Present Illness Initial Comments: 07/14/18 21:35 78 year old male with PMH metastatic bladder cancer (last chemo 3 weeks ago), DM , HTN, CKD, portal HTN, thallasemia, thoracic aortic aneurysm, cirrhosis presenting to ED for generalized weakness x5 days. Pt states he felt so weak today that he slowly took himself to the ground and was unable to get up on his own. He states he developed a fever of 99-100 2 days ago and has been taking Tylenol since. He states since a rahman catheter was removed on Tuesday he has had less control with urination. He denies LOC, head injury, chest pain, shortness of breath, abdominal pain, nausea, vomiting, diarrhea, headache, cough , dysuria. Pt states he missed his last chemo x3 weeks ago due to infection. He states he missed his PET scan today due to weakness. Onc - Pinky [facility]ro - Elie PCP - Andrea Delgadillo Allergies - NKDA Recent hospital course: - Admitted 06/25/18 for UTI complicated by anemia requiring blood transfusion - Urine culture grew ESBL E. coli - Treated with Ertrapenum - TVOP performed 07/04/18 - Pt discharged 07/06/18 with rahman catheter, plan to continue IVAB through port Past History - Past Medical History Allergies/Adverse Reactions: Allergies Allergy/AdvReac Type Severity Reaction Status Date / Time No Known Allergies Allergy Verified 07/14/18 20:59 Home Medications: Ambulatory Orders RX: Finasteride [Proscar -] 5 mg PO DAILY 06/25/18 RX: Metformin HCl [Glucophage] 1,000 mg PO BID 06/25/18 RX: Metoclopramide HCl 5 mg PO BID PRN 06/25/18 RX: Metoprolol Succinate [Toprol XL -] 100 mg PO DAILY 06/25/18 RX: Multivit-Min/FA/Lycopen/Lutein [Centrum Silver Men Tablet] 1 each PO DAILY 06/25/18 RX: Nifedipine [Procardia Xl] 30 mg PO DAILY 06/25/18 RX: Silodosin [Rapaflo] 8 mg PO DAILY 06/25/18 RX: Zolpidem Tartrate [Ambien] 5 mg PO HS 06/25/18 RX: Ertapenem Sodium [Invanz -] 1 gm IVPB DAILY vial 07/06/18 RX: Zolpidem Tartrate [Ambien] 5 mg PO HS PRN #30 tablet MDD 1 07/06/18 Anemia: No Asthma: No Cancer: Yes (BLADDER W/ mets to liver and bone) Cardiac Disorders: No CVA: No COPD: No CHF: No Dementia: No Diabetes: Yes GI Disorders: No Disorders: Yes (BPH) HTN: Yes Hypercholesterolemia: No Liver Disease: No Seizures: No Thyroid Disease: No - Surgical History Abdominal Surgery: No Appendectomy: No Cardiac Surgery: No - Suicide/Smoking/Psychosocial Hx Smoking Status: Yes Smoking History: Never smoked Have you smoked in the past 12 months: No Number of Cigarettes Smoked Daily: 0 If you are a former smoker, when did you quit?: 1989 Information on smoking cessation initiated: No Hx Alcohol Use: No Drug/Substance Use Hx: No Substance Use Type: None Hx Substance Use Treatment: No Review of Systems - Review of Systems Able to Perform ROS?: Yes Comments:: 07/14/18 21:40 General: admits to generalized weakness, fever, chills. HEENT: denies sore throat, rhinorrhea, ear pain. Heart: denies chest pain, palpitations, syncope, lower extremity swelling, diaphoresis. Respiratory: denies shortness of breath, cough, sputum production, hemoptysis. Abdomen: denies abdominal pain, nausea, vomiting, diarrhea, constipation, blood in stool. : denies dysuria, increased urinary frequency, hematuria, urinary incontinence , flank pain. Back: denies back pain. Musculoskeletal: denies joint pain, muscle pain, joint swelling. Neurological: denies headache, dizziness, numbness, tingling, weakness. Skin: denies rash, laceration, abrasion. *Physical Exam - Vital Signs Last Vital Signs Temp Pulse Resp BP Pulse Ox 99 F 95 H 18 126/77 99 07/14/18 20:45 07/14/18 20:45 07/14/18 20:45 07/14/18 20:45 07/14/18 20:45 - Physical Exam Comments: 07/14/18 21:41 Constitutional: Well-nourished, Well-developed, appearing stated age. HEENT: head is normocephalic, atraumatic. EOMI. PERRLA. pale conjunctiva bilaterally. Neck: supple. Full ROM. Heart: regular rhythm. no murmurs, rubs or gallops. Chest: port to right anterior chest wall. Lungs: clear to auscultation bilaterally. no crackles, rhonchi or wheezing. no stridor. Abdomen: soft, nontender. normal bowel sounds. no rebound, guarding, masses. Extremities: Peripheral pulses intact. No lower extremity edema. Neurological: CN 2-12 grossly intact. Moves all four extremities. Psych: awake, alert, oriented x3. Follows commands. Answers questions appropriately. ED Treatment Course - LABORATORY CBC & Chemistry Diagram: 07/15/18 06:30 07/15/18 06:30 Medical Decision Making - Medical Decision Making 07/14/18 21:42 78 year old male with PMH metastatic bladder cancer (last chemo 3 weeks ago), DM , HTN, CKD, portal HTN, thallasemia, thoracic aortic aneurysm, cirrhosis presenting to ED for generalized weakness x5 days. Initial Vital Signs Temp Pulse Resp BP Pulse Ox 99 F 95 H 18 126/77 99 07/14/18 20:45 07/14/18 20:45 07/14/18 20:45 07/14/18 20:45 07/14/18 20:45 Rectal temp 103F Borderline tachycardia. On beta malena. No hypotension. No hypoxia on room air. EKG performed at 2152: Rate 96, NSR with occasional supraventricular premature complexes, left axis, no acute ST changes. CBC WBC 12.6 K/mm3 (4.0-10.0) H 07/14/18 21:35 RBC 3.63 M/mm3 (4.00-5.60) L 07/14/18 21:35 Hgb 7.8 GM/dL (11.7-16.9) L 07/14/18 21:35 Hct 24.8 % (35.4-49) L 07/14/18 21:35 MCV 68.5 fl (80-96) L 07/14/18 21:35 MCH 21.6 pg (25.7-33.7) L 07/14/18 21:35 MCHC 31.5 g/dl (32.0-35.9) L 07/14/18 21:35 RDW 20.4 % (11.9-15.9) H 07/14/18 21:35 Plt Count 304 K/MM3 (134-434) D 07/14/18 21:35 MPV 8.8 fl (7.5-11.1) 07/14/18 21:35 Absolute Neuts (auto) 10.7 K/mm3 (1.5-8.0) H 07/14/18 21:35 Neutrophils % 85.0 % (42.8-82.8) H 07/14/18 21:35 Lymphocytes % 4.6 % (8-40) L D 07/14/18 21:35 Monocytes % 8.0 % (3.8-10.2) 07/14/18 21:35 Eosinophils % 2.0 % (0-4.5) 07/14/18 21:35 Basophils % 0.4 % (0-2.0) 07/14/18 21:35 Nucleated RBC % 0 % (0-0) 07/14/18 21:35 Hypochromia 2+ 07/14/18 21:35 Platelet Estimate Adequate 07/14/18 21:35 Platelet Comment No clumping noted 07/14/18 21:35 Polychromasia 1+ 07/14/18 21:35 Anisocytosis 1+ 07/14/18 21:35 Microcytosis 1+ 07/14/18 21:35 Target Cells 1+ 07/14/18 21:35 Tear Drop Cells 1+ 07/14/18 21:35 Leukocytosis - WBC 12.6 Left shift - Absolute Neutrophils 10.7 Anemia - Hgb 7.8, Hct 24.8% 07/14/18 22:50 CXR - negative for acute intrathoracic pathology. Unlikely to be source of infection. 07/14/18 23:48 CMP Sodium 135 mmol/L (136-145) L 07/14/18 23:00 Potassium 4.4 mmol/L (3.5-5.1) 07/14/18 23:00 Chloride 101 mmol/L (98-107) 07/14/18 23:00 Carbon Dioxide 23 mmol/L (21-32) 07/14/18 23:00 Anion Gap 10 MMOL/L (8-16) 07/14/18 23:00 BUN 37 mg/dL (7-18) H 07/14/18 23:00 Creatinine 2.2 mg/dL (0.55-1.3) H 07/14/18 23:00 Creat Clearance w eGFR 29.09 (>60) 07/14/18 23:00 Random Glucose 126 mg/dL (74-106) H 07/14/18 23:00 Lactic Acid 2.7 mmol/L (0.4-2.0) H* 07/14/18 22:36 Calcium 8.4 mg/dL (8.5-10.1) L 07/14/18 23:00 Total Bilirubin 0.8 mg/dL (0.2-1) 07/14/18 23:00 AST 68 U/L (15-37) H 07/14/18 23:00 ALT 43 U/L (13-61) 07/14/18 23:00 Alkaline Phosphatase 531 U/L (45-117) H 07/14/18 23:00 Creatine Kinase Cancelled 07/14/18 21:35 Troponin I Cancelled 07/14/18 21:35 Total Protein 7.1 g/dl (6.4-8.2) 07/14/18 23:00 Albumin 2.7 g/dl (3.4-5.0) L 07/14/18 23:00 Acute kidney failure. Prior Cr 0.7. Gentle IV hydration. Lactate 2.7 07/14/18 23:57 Vancomycin and Ertapenem ordered. 07/15/18 00:[address] Andrade about the case, she agrees to have the patient admitted for suspected sepsis. Urine Test Results Urine Color Yellow 07/15/18 00:10 Urine Appearance Cloudy 07/15/18 00:10 Urine pH 5.0 (5.0-8.0) 07/15/18 00:10 Ur Specific [place] 1.011 (1.001-1.035) 07/15/18 00:10 Urine Protein 2+ (NEGATIVE) H 07/15/18 00:10 Urine Glucose (UA) Negative (NEGATIVE) 07/15/18 00:10 Urine Ketones Negative (NEGATIVE) 07/15/18 00:10 Urine Blood 3+ (NEGATIVE) H 07/15/18 00:10 Urine Nitrite Negative (NEGATIVE) 07/15/18 00:10 Urine Bilirubin Negative (<2.0 mg/dL) 07/15/18 00:10 Ur Leukocyte Esterase 3+ (NEGATIVE) H 07/15/18 00:10 Urine Bacteria Rare /hpf (NONE SEEN) 07/15/18 00:10 Urine Mucus Rare 07/15/18 00:10 Urinary tract infection - (+) LE, 258 WBC Source of infection likely UTI. *DC/Admit/Observation/Transfer Diagnosis at time of Disposition: 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, Anemia, Lactic acidosis, Acute kidney injury - Discharge Dispostion Condition at time of disposition: Fair Decision to Admit order: Yes - Referrals - Patient Instructions - Post Discharge Activity
[2018-07-14 21:45] LABS: BASO % 0.4 % (0-2.0); HEMATOCRIT 24.8 % (35.4-49); HEMOGLOBIN 7.8 GM/dL (11.7-16.9); LYMPH % 4.6 % (8-40); MCH 21.6 pg (25.7-33.7); MCHC 31.5 g/dl (32.0-35.9); MEAN CELL VOLUME 68.5 fl (80-96); MEAN PLT VOLUME 8.8 fl (7.5-11.1); PLATELET COUNT 304 K/MM3 (134-434); RBC 3.63 M/mm3 (4.00-5.60); RDW 20.4 % (11.9-15.9); WHITE BLOOD COUNT 12.6 K/mm3 (4.0-10.0)
[2018-07-14 21:58] LABS: INR 1.26 (0.83-1.09); PROTHROMBIN TIME (PATIENT) 14.9 SEC (9.7-13.0)
--- NOTE | 2018-07-14 22:07 | PDOC ---
Attending Attestation - HPI HPI: 07/14/18 22:13 The patient is a 78 year old male, with a significant past medical history of diabetes, hypertension, metastatic bladder cancer (last chemo 3 weeks ago), thalassemia, thoracic aortic aneurysm, and cirrhosis, who presents to the emergency department with, 5 days of weakness and 2 days of fevers (Tmax 99-100 degree Fahrenheit, subsided with Tylenol). The patient notes he felt so weak today that he had to drop to the floor, he denies any LOC or syncope. Allergies: NKDA Past surgical history: Cystoscopy and ureteral stent placement; TURP (07/07/18). Social history: Former smoker (quit smoking 1995). Primary Care Physician: Dr. Andrea Delgadillo Urologist: Dr. Hiral Delgadillo Oncologist: Dr. Vance <Vero Hoffmann - Last Filed: 07/14/18 22:13> - Resident Resident Name: Jill Vaughan - ED Attending Attestation I have performed the following: I have examined & evaluated the patient, The case was reviewed & discussed with the resident, I agree w/resident's findings & plan, Exceptions are as noted - Physicial Exam PE: 07/14/18 23:54 Patient is awake and alert, frail-appearing, febrile Normocephalic, atraumatic PERRLA, EOMI, conjunctiva pale, no photophobia CTA RRR Abdomen soft, nontender, nondistended, bowel sounds present in all 4 quadrants - Medical Decision Making 07/14/18 23:54 78-year-old male with history of metastatic bladder CA currently on Invanz daily for ESBL Klebsiella presents with generalized weakness, and fever of 103. Patient's awake and alert, nontoxic-appearing. CBC revealed leukocytosis with predominance of neutrophils and a decrease in hematocrit to 24 from 28 previously. CMP reveals elevated creatinine likely related to acute renal injury. Lactic acid is mildly elevated as well. Alkaline phosphatase is consistent with metastases to the bone. We'll obtain blood cultures and urine cultures. Will hydrate. We'll administer antipyretics and broad-spectrum antibiotics. Will admit. No indication for packed RBC transfusion at this time. <Hood Christopher - Last Filed: 07/14/18 23:56> Attestations - Attestations 07/14/18 22:13 Documentation prepared by Vero Hoffmann, acting as back office medical assistant for Hood Christopher MD. <Vero Hoffmann - Last Filed: 07/14/18 22:13>
[2018-07-14 22:08] LABS: ACTIVATED PTT 30.1 SECONDS (25.2-36.5)
[2018-07-14 22:11] LABS: ANISOCYTOSIS 1+; PLATELET ESTIMATE ADEQUATE; TARGET CELLS 1+; TEAR DROP CELLS 1+
[2018-07-14] MEDS ORDERED: ACETAMINOPHEN 1000 MG/100 ML VIAL (NON FORMULARY) IVPB ONE (22:42)
[2018-07-14] MEDS ORDERED: SODIUM CHLORIDE 1,000 ML IV STA (22:42)
[2018-07-14] MEDS ORDERED: ACETAMINOPHEN INJECTION 100 ML IVPB ONE (23:16)
[2018-07-14 23:37] LABS: ALBUMIN 2.7 g/dl (3.4-5.0); ALK PHOS 531 U/L (45-117); ANION GAP 10 MMOL/L (8-16); BILIRUBIN,TOTAL 0.8 mg/dL (0.2-1); BLOOD UREA NITROGEN 37 mg/dL (7-18); CALCIUM 8.4 mg/dL (8.5-10.1); CHLORIDE 101 mmol/L (98-107); CO2 23 mmol/L (21-32); CREATININE 2.2 mg/dL (0.55-1.3); GLUCOSE,RANDOM 126 mg/dL (74-106); POTASSIUM 4.4 mmol/L (3.5-5.1); SGOT/AST 68 U/L (15-37); SGPT/ALT 43 U/L (13-61); SODIUM 135 mmol/L (136-145); TOT PROT 7.1 g/dl (6.4-8.2)
[2018-07-14] MEDS ORDERED: VANCOMYCIN 1,000 MG in DEXTROSE 5%-WATER - 250 ML IVPB ONE (23:54)
[2018-07-14] MEDS ORDERED: ERTAPENEM SODIUM 1 GM/50 ML PRE-DOCKED IVPB ONE (23:56)
[2018-07-15] MEDS ORDERED: VANCOMYCIN 1 GRAM (PRE-DOCKED) 1,000 MG/250 ML BAG IVPB ONE (00:46)
[2018-07-15 00:52] LABS: URINE APPEARANCE CLOUDY; URINE BILIRUBIN NEGATIVE (<2.0 mg/dL); URINE COLOR YELLOW; URINE GLUCOSE (UA) NEGATIVE (NEGATIVE); URINE KETONE NEGATIVE (NEGATIVE); URINE NITRITE NEGATIVE (NEGATIVE); URINE UROBILINOGEN NEGATIVE mg/dL (0.2-1.0)
[2018-07-15 00:57] LABS: URINE LEUK ESTERASE 3+ (NEGATIVE); URINE PROTEIN 2+ (NEGATIVE)
[2018-07-15 01:01] LABS: URINE BACTERIA RARE /hpf (NONE SEEN); URINE MUCUS RARE
[2018-07-15] MEDS: DEXTROSE 5%-0.45% SALINE 1,000 ML IV SCH ×3 (01:04→22:42)
[2018-07-15] MEDS: ACETAMINOPHEN 325 MG TABLET (FP) PO PRN ×3 (04:19→22:46)
[2018-07-15] MEDS: ZOLPIDEM TARTRATE 5 MG TABLET PO PRN ×2 (04:20→22:51)
[2018-07-15 04:47] VITALS: BMI 23.8
[2018-07-15] MEDS: metFORMIN HCL 500 MG TABLET (FP) PO SCH ×2 (06:26→16:43)
[2018-07-15] MEDS: TAMSULOSIN HCL 0.4 MG CAP PO SCH (07:37)
[2018-07-15 08:16] LABS: BASO % 0.5 % (0-2.0); EOS % 3.4 % (0-4.5); HEMATOCRIT 20.9 % (35.4-49); LYMPH % 11.3 % (8-40); MCH 21.6 pg (25.7-33.7); MEAN CELL VOLUME 67.7 fl (80-96); MEAN PLT VOLUME 9.3 fl (7.5-11.1); MONO % 9.4 % (3.8-10.2); NEUT % 75.4 % (42.8-82.8); PLATELET COUNT 225 K/MM3 (134-434); RBC 3.09 M/mm3 (4.00-5.60); RDW 20.3 % (11.9-15.9); WHITE BLOOD COUNT 11.1 K/mm3 (4.0-10.0)
[2018-07-15 08:18] LABS: ALBUMIN 2.3 g/dl (3.4-5.0); ALK PHOS 414 U/L (45-117); ANION GAP 12 MMOL/L (8-16); BILIRUBIN,TOTAL 0.8 mg/dL (0.2-1); BLOOD UREA NITROGEN 33 mg/dL (7-18); CALCIUM 8.2 mg/dL (8.5-10.1); CHLORIDE 102 mmol/L (98-107); CO2 21 mmol/L (21-32); CREATININE 2.1 mg/dL (0.55-1.3); GLUCOSE,RANDOM 95 mg/dL (74-106); POTASSIUM 4.3 mmol/L (3.5-5.1); SGOT/AST 35 U/L (15-37); SGPT/ALT 33 U/L (13-61); SODIUM 134 mmol/L (136-145)
[2018-07-15 08:23] LABS: HEMOGLOBIN 6.7 GM/dL (11.7-16.9)
[2018-07-15] MEDS: MULTIVITAMINS THER W-MINERALS COMBO TABLET (FP) PO SCH (09:10)
[2018-07-15] MEDS: NIFEdipine E.R. 30 MG TABLET (FP) PO SCH (09:10)
[2018-07-15] MEDS: FINASTERIDE 5 MG TABLET (FP) PO SCH (09:11)
[2018-07-15] MEDS: HEPARIN NA (PORCINE) 5,000 UNITS/ML 1ML VIAL SQ SCH ×2 (09:11→22:45)
[2018-07-15] MEDS ORDERED: ERTAPENEM SODIUM 1 GM VIAL IVPB SCH (10:00)
--- NOTE | 2018-07-15 11:23 | CON.ID ---
Consult - History of Present Illness History of Present Illness: This is a 78 y.o. male with PMH of Metastatic Bladder CA (s/p chemotherapy over 3 wks ago, port in place) , s/p urinary stent removal prior to last admission , DM, HTN, cirrhosis recently admitted for Sepsis due to ESBL + Klebsiella UTI/ bacteremia and urinary retention requiring rahman catheter insertion. Pt was started on Ertapenem with resolution of symptoms and underwent TURP on 07/07/18 prior to discharge. Pt has completed course of IV antibiotics with last dose given a few days ago. Pt returned to ER yesterday with c/o severe weakness and fever for 2 days. He was noted to have fever (103F), mild leukocytosis, severe anemia, elevated creatinine. Pt denies dysuria, oliguria, hematuria, abdominal pain/n/v/d, chest pain, shortness of breath/cough, headache/focal deficits, or rash. Currently states he feels better but still weak. - History Source History Provided By: Patient Limitations to Obtaining History: No Limitations - Past Medical History Cardio/Vascular: Yes: HTN, Hyperlipdemia Renal/: Yes: Renal Failure, BPH, Cancer, Hematuria Heme/Onc: Yes: Anemia Endocrine: Yes: Diabetes Mellitus - Past Surgical History Past Surgical History: Yes: Stent (urinary), TURP - Alcohol/Substance Use Hx Alcohol Use: No - Smoking History Smoking history: Never smoked Have you smoked in the past 12 months: No Aproximately how many cigarettes per day: 0 If you are a former smoker, when did you quit?: 1989 - Social History Usual Living Arrangement: With Spouse History of Recent Travel: No Home Medications - Allergies Allergies/Adverse Reactions: Allergies Allergy/AdvReac Type Severity Reaction Status Date / Time No Known Allergies Allergy Verified 07/14/18 20:59 - Home Medications Home Medications: Ambulatory Orders Finasteride [Proscar -] 5 mg PO DAILY 06/25/18 Metformin HCl [Glucophage] 1,000 mg PO BID 06/25/18 Metoclopramide HCl 5 mg PO BID PRN 06/25/18 Metoprolol Succinate [Toprol XL -] 100 mg PO DAILY 06/25/18 Multivit-Min/FA/Lycopen/Lutein [Centrum Silver Men Tablet] 1 each PO DAILY 06/25 Nifedipine [Procardia Xl] 30 mg PO DAILY 06/25/18 Silodosin [Rapaflo] 8 mg PO DAILY 06/25/18 Zolpidem Tartrate [Ambien] 5 mg PO HS 06/25/18 Ertapenem Sodium [Invanz -] 1 gm IVPB DAILY vial 07/06/18 Zolpidem Tartrate [Ambien] 5 mg PO HS PRN #30 tablet MDD 1 07/06/18 Review of Systems - Review of Systems Constitutional: reports: Fever, Malaise. denies: No Symptoms, Chills, Diaphoresis, Lethargy, Loss of Appetite, Night Sweats, Unintentional Wgt. Loss, Weakness, Other Eyes: reports: No Symptoms. denies: Blind Spots, Blurred Vision, Double Vision , Eye Pain, Floaters, Photophobia, Recent Change in Vision, Other HENT: reports: No Symptoms. denies: Difficult Swallowing, Ear Discharge, Ear Pain, Epistaxis, Gingival Bleeding, Hearing Loss, Mouth Swelling, Nasal Congestion, Ocular Prosthesis, Throat Pain, Toothache, Ringing in Ears, Other Neck: reports: No Symptoms. denies: Decreased ROM, Lumps, Pain on Movement, Stiffness, Swollen Glands, Tenderness, Other Cardiovascular: reports: No Symptoms. denies: Chest Pain, Edema, Palpitations, Shortness of Breath, Other Respiratory: reports: No Symptoms. denies: Cough, Exercise Intolerance, Hemoptysis, Orthopnea, PND, Snoring, SOB, SOB on Exertion, Wheezing, Other Gastrointestinal: reports: No Symptoms. denies: Abdominal Pain, Bloating, Constipation, Diarrhea, Dysphagia, Indigestion, Melena, Nausea, Rectal Bleeding , Vomiting, Vomiting Blood, Other Genitourinary: reports: No Symptoms. denies: Burning, Discharge, Dysuria, Flank Pain, Frequency, Hematuria, Incontinence, Lesions, Menses, Pain, Testicular Mass, Testicular Pain, Testicular Swelling, Urgency, Vaginal Bleeding , Other Musculoskeletal: reports: No Symptoms. denies: Back Pain, Crepitus, Decreased ROM, Extremity Pain, Joint Pain, Joint Swelling, Muscle Pain, Muscle Cramps, Muscle Weakness, Other Integumentary: reports: No Symptoms. denies: Blister, Bruising, Change in Color , Eczema, Erythema, Incision, Lesions, Lump, Pallor, Pruritis, Rash, Wound, Other Neurological: reports: No Symptoms. denies: Change in LOC, Change in Speech, Confusion, Dizziness, Headache, Incoordination, Numbness, Parasthesia, Pre- Existing Deficit, Seizure, Syncope, Tremors, Unsteady Gait, Weakness, Other Endocrine: reports: No Symptoms. denies: Excessive Sweating, Flushing, Increased Hunger, Increased Thirst, Intolerance to Cold, Intolerance to Heat, Unexplained Weight Gain, Unexplained Weight Loss, Other Hematology/Lymphatic: reports: No Symptoms. denies: Easily Bruised, Excessive Bleeding, Swollen Glands, Other Psychiatric: reports: No Symptoms. denies: Altered Sleep Pattern, Anxiety, Depression, Hallucinations, Panic, Paranoia, Suicidal, Other Physical Exam Vital Signs: Vital Signs Temperature 98.1 F 07/15/18 09:05 Pulse Rate 82 07/15/18 09:05 Respiratory Rate 20 07/15/18 09:05 Blood Pressure 108/73 07/15/18 09:05 O2 Sat by Pulse Oximetry (%) 96 07/15/18 09:00 Constitutional: Yes: No Distress, Calm Eyes: Yes: Conjunctiva Clear, EOM Intact HENT: Yes: Atraumatic, Normocephalic Neck: Yes: Supple, Trachea Midline Cardiovascular: Yes: Regular Rate and Rhythm Respiratory: Yes: CTA Bilaterally Gastrointestinal: Yes: Normal Bowel Sounds, Soft Renal/: Yes: WNL Musculoskeletal: Yes: WNL Extremities: Yes: WNL Edema: No Integumentary: Yes: WNL Neurological: Yes: Alert, Oriented ...Motor Strength: WNL Psychiatric: Yes: Alert, Oriented Labs: CBC, BMP 07/15/18 06:30 07/15/18 06:30 CBC,CMP WBC 11.1 K/mm3 (4.0-10.0) H 07/15/18 06:30 RBC 3.09 M/mm3 (4.00-5.60) L 07/15/18 06:30 Hgb 6.7 GM/dL (11.7-16.9) L* 07/15/18 06:30 Hct 20.9 % (35.4-49) L D 07/15/18 06:30 MCV 67.7 fl (80-96) L 07/15/18 06:30 MCH 21.6 pg (25.7-33.7) L 07/15/18 06:30 MCHC 32.0 g/dl (32.0-35.9) 07/15/18 06:30 RDW 20.3 % (11.9-15.9) H 07/15/18 06:30 Plt Count 225 K/MM3 (134-434) D 07/15/18 06:30 MPV 9.3 fl (7.5-11.1) 07/15/18 06:30 Absolute Neuts (auto) 8.3 K/mm3 (1.5-8.0) H 07/15/18 06:30 Neutrophils % 75.4 % (42.8-82.8) 07/15/18 06:30 Lymphocytes % 11.3 % (8-40) D 07/15/18 06:30 Monocytes % 9.4 % (3.8-10.2) 07/15/18 06:30 Eosinophils % 3.4 % (0-4.5) 07/15/18 06:30 Basophils % 0.5 % (0-2.0) 07/15/18 06:30 Nucleated RBC % 0 % (0-0) 07/15/18 06:30 Hypochromia 2+ 07/14/18 21:35 Platelet Estimate Adequate 07/14/18 21:35 Platelet Comment No clumping noted 07/14/18 21:35 Polychromasia 1+ 07/14/18 21:35 Anisocytosis 1+ 07/14/18 21:35 Microcytosis 1+ 07/14/18 21:35 Target Cells 1+ 07/14/18 21:35 Tear Drop Cells 1+ 07/14/18 21:35 Sodium 134 mmol/L (136-145) L 07/15/18 06:30 Potassium 4.3 mmol/L (3.5-5.1) 07/15/18 06:30 Chloride 102 mmol/L (98-107) 07/15/18 06:30 Carbon Dioxide 21 mmol/L (21-32) 07/15/18 06:30 Anion Gap 12 MMOL/L (8-16) 07/15/18 06:30 BUN 33 mg/dL (7-18) H 07/15/18 06:30 Creatinine 2.1 mg/dL (0.55-1.3) H 07/15/18 06:30 Creat Clearance w eGFR 30.70 (>60) 07/15/18 06:30 Random Glucose 95 mg/dL (74-106) 07/15/18 06:30 Lactic Acid 2.7 mmol/L (0.4-2.0) H* 07/14/18 22:36 Calcium 8.2 mg/dL (8.5-10.1) L 07/15/18 06:30 Total Bilirubin 0.8 mg/dL (0.2-1) 07/15/18 06:30 AST 35 U/L (15-37) 07/15/18 06:30 ALT 33 U/L (13-61) 07/15/18 06:30 Alkaline Phosphatase 414 U/L (45-117) H 07/15/18 06:30 Creatine Kinase 229 IU/L (26-308) 07/14/18 23:00 Creatine Kinase Index 0.4 % (0.0-5.0) 07/14/18 23:00 CK-MB (CK-2) < 1.0 ng/mL (0.5-3.6) 07/14/18 23:00 Troponin I < 0.02 ng/ml (0.00-0.05) 07/14/18 23:00 Total Protein 6.0 g/dl (6.4-8.2) L 07/15/18 06:30 Albumin 2.3 g/dl (3.4-5.0) L 07/15/18 06:30 U/A : leukocyte esterase 3+, wbc - 258, bact- rare Imaging - Results Chest X-ray: Report Reviewed (no acute infiltrates) Problem List - Problems (1) KARTHIKEYAN (acute kidney injury) Code(s): N17.9 - ACUTE KIDNEY FAILURE, UNSPECIFIED (2) Anemia Code(s): D64.9 - ANEMIA, UNSPECIFIED (3) Lactic acidosis Code(s): E87.2 - ACIDOSIS (4) 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 Code(s): C79.9 - SECONDARY MALIGNANT NEOPLASM OF UNSPECIFIED SITE; C67.9 - MALIGNANT NEOPLASM OF BLADDER, UNSPECIFIED (5) BPH (benign prostatic hyperplasia) Code(s): N40.0 - BENIGN PROSTATIC HYPERPLASIA WITHOUT LOWER URINRY TRACT SYMP (6) Diabetes Code(s): E11.9 - TYPE 2 DIABETES MELLITUS WITHOUT COMPLICATIONS (7) Fever Code(s): R50.9 - FEVER, UNSPECIFIED Qualifiers: Fever type: unspecified Qualified Code(s): R50.9 - Fever, unspecified (8) HLD (hyperlipidemia) Code(s): E78.5 - HYPERLIPIDEMIA, UNSPECIFIED (9) Hypertension Code(s): I10 - ESSENTIAL (PRIMARY) HYPERTENSION Qualifiers: Hypertension type: other secondary hypertension Qualified Code(s): I15.8 - Other secondary hypertension (10) Sepsis Code(s): A41.9 - SEPSIS, UNSPECIFIED ORGANISM Qualifiers: Sepsis type: sepsis due to unspecified organism Qualified Code(s): A41.9 - Sepsis, unspecified organism (11) UTI (urinary tract infection) Code(s): N39.0 - URINARY TRACT INFECTION, SITE NOT SPECIFIED Assessment/Plan This is a 78 y.o. male with PMH of Metastatic Bladder CA (s/p chemotherapy over 3 wks ago) , currently with port in place, s/p urinary stent removal prior to last admission , DM, HTN, urinary retention s/p stent/rahman removal, s/p recent treatment for Sepsis due to ESBL + Klebsiella UTI/Bacteremia , and s/p TURP presenting with fever/weakness Sepsis r/o port assoc. Bacteremia Met Bladder CA KARTHIKEYAN Urinary retention s/p TURP s/p UTI/Bacteremia DM -- d/c Ertapenem, start Meropenem IV for now, s/p Vancomycin x 1 dose -- f/u Blood cultures (peripheral/catheter) and urine culture results -- obtain Vancomycin level, monitor renal function -- Hematology/Oncology follow up will follow Thank you
[2018-07-15] MEDS: MEROPENEM 1 GM in DEXTROSE 5%-WATER 100 ML IVPB SCH (12:28)
--- NOTE | 2018-07-15 16:16 | CONSULT ---
Consult - text type - Consultation Consultation Note: Patient is a 78 y.o. male with PMH of Metastatic Bladder Cancer (s/p chemotherapy gemazar/carboplatin --06/22/18) , s/p urinary stent removal prior to last admission , DM, HTN, cirrhosis recently admitted for Sepsis due to ESBL + Klebsiella UTI/bacteremia and urinary retention requiring rahman catheter insertion. Pt was started on Ertapenem with resolution of symptoms and underwent TURP on 07/07/18 prior to discharge. Pt has completed course of IV antibiotics with last dose given a few days ago. Pt returned to ER yesterday with c/o severe weakness and fever for 2 days. He was noted to have fever (103F) , mild leukocytosis, severe anemia, elevated creatinine. Pt denies dysuria, oliguria, hematuria, abdominal pain/n/v/d, chest pain, shortness of breath/cough , headache/focal deficits, or rash. Currently states he feels better but still weak. - History Source History Provided By: Patient - Past Medical History Cardio/Vascular: Yes: HTN, Hyperlipdemia Renal/: Yes: Renal Failure, BPH, Cancer, Hematuria Heme/Onc: Yes: Anemia Endocrine: Yes: Diabetes Mellitus - Past Surgical History Past Surgical History: Yes: Stent (urinary), TURP - Smoking History Smoking history: Never smoked - Social History Usual Living Arrangement: With Spouse Home Medications - Allergies Allergies/Adverse Reactions: Allergies Allergy/AdvReac Type Severity Reaction Status Date / Time No Known Allergies Allergy Verified 07/14/18 20:59 - Home Medications Home Medications: Ambulatory Orders Finasteride [Proscar -] 5 mg PO DAILY 06/25/18 Metformin HCl [Glucophage] 1,000 mg PO BID 06/25/18 Metoclopramide HCl 5 mg PO BID PRN 06/25/18 Metoprolol Succinate [Toprol XL -] 100 mg PO DAILY 06/25/18 Multivit-Min/FA/Lycopen/Lutein [Centrum Silver Men Tablet] 1 each PO DAILY 06/25 Nifedipine [Procardia Xl] 30 mg PO DAILY 06/25/18 Silodosin [Rapaflo] 8 mg PO DAILY 06/25/18 Zolpidem Tartrate [Ambien] 5 mg PO HS 06/25/18 Ertapenem Sodium [Invanz -] 1 gm IVPB DAILY vial 07/06/18 Zolpidem Tartrate [Ambien] 5 mg PO HS PRN #30 tablet MDD 1 07/06/18 Physical Exam Vital Signs: Last Vital Signs Temp Pulse Resp BP Pulse Ox 99.4 F 85 20 122/66 96 07/15/18 14:55 07/15/18 14:25 07/15/18 14:25 07/15/18 14:25 07/15/18 09:00 Cor: RSR, No murmurs, No gallops Lungs: Clear to P&A Abd: Soft, Normal bowel sounds, No organomegaly Ext:No significant edema Skin: No rashes, Integument intact Abnormal Lab Results 07/14/18 07/14/18 07/14/18 21:35 21:35 22:36 WBC 12.6 H RBC 3.63 L Hgb 7.8 L Hct 24.8 L MCV 68.5 L MCH 21.6 L MCHC 31.5 L RDW 20.4 H Absolute Neuts (auto) 10.7 H Neutrophils % 85.0 H Lymphocytes % 4.6 L D PT with INR 14.90 H INR 1.26 H Sodium BUN Creatinine Random Glucose Lactic Acid 2.7 H* Calcium AST Alkaline Phosphatase Total Protein Albumin Urine Protein Urine Blood Ur Leukocyte Esterase Crossmatch 07/14/18 07/14/18 07/15/18 23:00 23:00 00:10 WBC RBC Hgb Hct MCV MCH MCHC RDW Absolute Neuts (auto) Neutrophils % Lymphocytes % PT with INR INR Sodium 135 L BUN 37 H Creatinine 2.2 H Random Glucose 126 H Lactic Acid Calcium 8.4 L AST 68 H Alkaline Phosphatase 531 H Total Protein Albumin 2.7 L Urine Protein 2+ H Urine Blood 3+ H Ur Leukocyte Esterase 3+ H Crossmatch See Detail 07/15/18 07/15/18 06:30 06:30 WBC 11.1 H RBC 3.09 L Hgb 6.7 L* Hct 20.9 L D MCV 67.7 L MCH 21.6 L MCHC RDW 20.3 H Absolute Neuts (auto) 8.3 H Neutrophils % Lymphocytes % PT with INR INR Sodium 134 L BUN 33 H Creatinine 2.1 H Random Glucose Lactic Acid Calcium 8.2 L AST Alkaline Phosphatase 414 H Total Protein 6.0 L Albumin 2.3 L Urine Protein Urine Blood Ur Leukocyte Esterase Crossmatch Home Medication List Medication Instructions Recorded Confirmed Type Finasteride [Proscar -] 5 mg PO DAILY 06/25/18 07/14/18 History Metformin HCl [Glucophage] 1,000 mg PO BID 06/25/18 07/14/18 History Metoclopramide HCl 5 mg PO BID PRN 06/25/18 07/14/18 History Metoprolol Succinate [Toprol XL -] 100 mg PO DAILY 06/25/18 07/14/18 History Multivit-Min/FA/Lycopen/Lutein 1 each PO DAILY 06/25/18 07/14/18 History [Centrum Silver Men Tablet] Nifedipine [Procardia Xl] 30 mg PO DAILY 06/25/18 07/14/18 History Silodosin [Rapaflo] 8 mg PO DAILY 06/25/18 07/14/18 History Zolpidem Tartrate [Ambien] 5 mg PO HS 06/25/18 07/14/18 History Active Medications Generic Name Dose Route Start Last Admin Trade Name Freq PRN Reason Stop Dose Admin Acetaminophen 650 mg 07/15/18 04:16 07/15/18 14:33 Tylenol - PO 650 mg Q6H PRN Administration FOR TEMP. OF 100 OR GREATER Finasteride 5 mg 07/15/18 10:00 07/15/18 09:11 Proscar - PO 5 mg DAILY LIT Administration Heparin Sodium (Porcine) 5,000 unit 07/15/18 10:00 07/15/18 09:11 Heparin - SQ 5,000 unit BID LIT Administration Dextrose/Sodium Chloride 1,000 mls @ 100 mls/hr 07/15/18 00:45 07/15/18 07:38 D5-1/2ns - IV 100 mls/hr ASDIR LIT Administration Meropenem 1 gm/ Dextrose 100 mls @ 200 mls/hr 07/15/18 12:00 07/15/18 12:28 IVPB 200 mls/hr Q12H LIT Administration Metformin HCl 1,000 mg 07/15/18 07:00 07/15/18 16:43 Glucophage - PO 1,000 mg BIDAC LIT Administration Metoprolol Succinate 100 mg 07/15/18 10:00 07/15/18 09:11 Toprol Xl - PO 100 mg DAILY LIT Administration Multivitamins/Minerals 1 each 07/15/18 10:00 07/15/18 09:10 Theragran-M PO 1 each DAILY LIT Administration Nifedipine 30 mg 07/15/18 10:00 07/15/18 09:10 Procardia Xl - PO 30 mg DAILY LIT Administration Tamsulosin HCl 0.4 mg 07/15/18 08:30 07/15/18 07:37 Flomax - PO 0.4 mg DAILY@0830 LIT Administration Zolpidem Tartrate 5 mg 07/15/18 03:14 07/15/18 04:20 Ambien - PO 5 mg HS PRN Administration INSOMNIA Assessment/Plan This is a 78 y.o. male with PMH of Metastatic Bladder CA (s/p C4 gemzar/ carboplatin 06/22/18) , currently with port in place, s/p urinary stent removal06/21 , s/p floley removal on 07/10/18 , DM, HTN, urinary retention s/p stent/ rahman removal, s/p recent treatment for Sepsis due to ESBL + Klebsiella UTI/ Bacteremia , and s/p TURP presenting with fever/weakness Also with acute renal failure Will check cultures check port cultures ? urinary source Recheck kidney/bladde u/s URology/nephrology conults On antibiotics per ID
--- NOTE | 2018-07-15 18:43 | HP ---
Admitting History and Physical - Admission History of Present Illness: Pt is a 78 y/o male with PMH significant for metastatic Bladder Cancer (s/p chemotherapy gemazar/carboplatin --06/22/18) , s/p urinary stent removal prior to last admission , DM, HTN, HLD, BPH, anemia and cirrhosis. Pt was recently admitted for sepsis due to ESBL + Klebsiella UTI/bacteremia and urinary retention requiring rahman catheter insertion. Pt was started on Ertapenem with resolution of symptoms and underwent TURP on 07/07/18 prior to discharge. Pt has completed course of IV antibiotics with last dose given a few days ago. Pt returned to ER yesterday with c/o severe weakness and fever for 2 days. He was noted to have fever (103F), mild leukocytosis, severe anemia, elevated creatinine. - Past Medical History Cardiovascular: Yes: HTN, Hyperlipdemia Renal/: Yes: Renal Failure, BPH, Cancer, Hematuria Heme/Onc: Yes: Anemia Endocrine: Yes: Diabetes Mellitus - Past Surgical History Past Surgical History: Yes: Stent (urinary), TURP - Smoking History Smoking history: Never smoked Have you smoked in the past 12 months: No Aproximately how many cigarettes per day: 0 If you are a former smoker, when did you quit?: 1989 - Alcohol/Substance Use Hx Alcohol Use: No - Social History History of Recent Travel: No Home Medications - Allergies Allergies/Adverse Reactions: Allergies Allergy/AdvReac Type Severity Reaction Status Date / Time No Known Allergies Allergy Verified 07/14/18 20:59 - Home Medications Home Medications: Ambulatory Orders Finasteride [Proscar -] 5 mg PO DAILY 06/25/18 Metformin HCl [Glucophage] 1,000 mg PO BID 06/25/18 Metoclopramide HCl 5 mg PO BID PRN 06/25/18 Metoprolol Succinate [Toprol XL -] 100 mg PO DAILY 06/25/18 Multivit-Min/FA/Lycopen/Lutein [Centrum Silver Men Tablet] 1 each PO DAILY 06/25 Nifedipine [Procardia Xl] 30 mg PO DAILY 06/25/18 Silodosin [Rapaflo] 8 mg PO DAILY 06/25/18 Zolpidem Tartrate [Ambien] 5 mg PO HS 06/25/18 Ertapenem Sodium [Invanz -] 1 gm IVPB DAILY vial 07/06/18 Zolpidem Tartrate [Ambien] 5 mg PO HS PRN #30 tablet MDD 1 07/06/18 Family Disease History - Family Disease History Family History: Unremarkable Review of Systems - Review of Systems Constitutional: reports: Fever, Loss of Appetite, Malaise, Weakness Eyes: reports: No Symptoms HENT: reports: No Symptoms Neck: reports: No Symptoms Cardiovascular: reports: No Symptoms Respiratory: reports: No Symptoms Gastrointestinal: reports: No Symptoms Genitourinary: reports: No Symptoms Physical Examination Vital Signs: Vital Signs Temperature 97.7 F 07/15/18 18:00 Pulse Rate 93 H 07/15/18 18:00 Respiratory Rate 20 07/15/18 18:00 Blood Pressure 133/79 07/15/18 18:00 O2 Sat by Pulse Oximetry (%) 96 07/15/18 09:00 Constitutional: Yes: No Distress HENT: Yes: WNL Neck: Yes: WNL, Supple Cardiovascular: Yes: WNL, Regular Rate and Rhythm Respiratory: Yes: WNL, Regular, CTA Bilaterally Gastrointestinal: Yes: WNL, Normal Bowel Sounds, Soft Musculoskeletal: Yes: WNL Extremities: Yes: WNL Edema: No Neurological: Yes: WNL ...Motor Strength: WNL Labs: CBC, BMP 07/15/18 06:30 07/15/18 06:30 Problem List - Problems (1) Sepsis Assessment/Plan: Cont IV antibxs Follow cultures ID consult Code(s): A41.9 - SEPSIS, UNSPECIFIED ORGANISM Qualifiers: Sepsis type: sepsis due to unspecified organism Qualified Code(s): A41.9 - Sepsis, unspecified organism (2) Acute on chronic renal failure Assessment/Plan: Cont IVF Code(s): N17.9 - ACUTE KIDNEY FAILURE, UNSPECIFIED; N18.9 - CHRONIC KIDNEY DISEASE, UNSPECIFIED (3) Anemia Assessment/Plan: Monitor H/H Code(s): D64.9 - ANEMIA, UNSPECIFIED (4) 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 Assessment/Plan: As per onco Code(s): C79.9 - SECONDARY MALIGNANT NEOPLASM OF UNSPECIFIED SITE; C67.9 - MALIGNANT NEOPLASM OF BLADDER, UNSPECIFIED (5) BPH (benign prostatic hyperplasia) Code(s): N40.0 - BENIGN PROSTATIC HYPERPLASIA WITHOUT LOWER URINRY TRACT SYMP (6) Diabetes Code(s): E11.9 - TYPE 2 DIABETES MELLITUS WITHOUT COMPLICATIONS
[2018-07-15] MEDS ORDERED: ERTAPENEM SODIUM 1 GM in SODIUM CHLORIDE 50 ML IVPB SCH (22:00)
--- NOTE | 2018-07-15 23:21 | EKG ---
Test Reason : Blood Pressure : / mmHG Vent. Rate : 096 BPM Atrial Rate : 096 BPM P-R Int : 200 ms QRS Dur : 100 ms QT Int : 334 ms P-R-T Axes : 038 -52 030 degrees QTc Int : 421 ms SINUS RHYTHM WITH PREMATURE SUPRAVENTRICULAR COMPLEXES LEFT AXIS DEVIATION ABNORMAL ECG WHEN COMPARED WITH ECG OF 25-JUN-2018 10:23, NO SIGNIFICANT CHANGE WAS FOUND Confirmed by COLLETTE BYRD MD ([id number]) on 07/15/2018 11:20:46 PM Referred By: Confirmed By:COLLETTE BYRD MD
[2018-07-16] MEDS: MEROPENEM 1 GM in DEXTROSE 5%-WATER 100 ML IVPB SCH ×2 (00:57→11:38)
[2018-07-16] MEDS: DEXTROSE 5%-0.45% SALINE 1,000 ML IV SCH ×2 (00:57→07:35)
[2018-07-16] MEDS: metFORMIN HCL 500 MG TABLET (FP) PO SCH ×2 (06:05→16:20)
[2018-07-16 06:54] LABS: BASO % 0.6 % (0-2.0); HEMATOCRIT 22.9 % (35.4-49); HEMOGLOBIN 7.3 GM/dL (11.7-16.9); LYMPH % 9.9 % (8-40); MCH 22.1 pg (25.7-33.7); MEAN CELL VOLUME 68.9 fl (80-96); MEAN PLT VOLUME 9.1 fl (7.5-11.1); MONO % 8.4 % (3.8-10.2); NEUT % 77.1 % (42.8-82.8); PLATELET COUNT 216 K/MM3 (134-434); RBC 3.32 M/mm3 (4.00-5.60); RDW 21.3 % (11.9-15.9); WHITE BLOOD COUNT 10.6 K/mm3 (4.0-10.0)
[2018-07-16] MEDS: TAMSULOSIN HCL 0.4 MG CAP PO SCH (07:35)
[2018-07-16] MEDS ORDERED: PT OWN MED DRAWER 7, Y5N ONE (08:38)
[2018-07-16] MEDS: FINASTERIDE 5 MG TABLET (FP) PO SCH (09:08)
[2018-07-16] MEDS: MULTIVITAMINS THER W-MINERALS COMBO TABLET (FP) PO SCH (09:08)
[2018-07-16] MEDS: HEPARIN NA (PORCINE) 5,000 UNITS/ML 1ML VIAL SQ SCH ×2 (09:09→21:03)
[2018-07-16] MEDS: NIFEdipine E.R. 30 MG TABLET (FP) PO SCH (09:09)
[2018-07-16 10:02] LABS: ALBUMIN 2.3 g/dl (3.4-5.0); ALK PHOS 386 U/L (45-117); ANION GAP 15 MMOL/L (8-16); BILIRUBIN,TOTAL 0.8 mg/dL (0.2-1); BLOOD UREA NITROGEN 42 mg/dL (7-18); CALCIUM 8.3 mg/dL (8.5-10.1); CHLORIDE 101 mmol/L (98-107); CO2 17 mmol/L (21-32); CREATININE 2.9 mg/dL (0.55-1.3); GLUCOSE,RANDOM 108 mg/dL (74-106); POTASSIUM 4.3 mmol/L (3.5-5.1); SGOT/AST 24 U/L (15-37); SGPT/ALT 27 U/L (13-61); SODIUM 134 mmol/L (136-145); TOT PROT 6.2 g/dl (6.4-8.2)
--- NOTE | 2018-07-16 12:28 | PN ---
Progress Note (short form) - Note Progress Note: PAtient seen and examined Last Vital Signs Temp Pulse Resp BP Pulse Ox 98.4 F 84 18 112/65 95 07/16/18 10:00 07/16/18 10:00 07/16/18 10:00 07/16/18 10:00 07/16/18 09:00 Cor: RSR, No murmurs, No gallops Lungs: Clear to P&A Abd: Soft, Normal bowel sounds, No organomegaly Ext:No significant edema Skin: No rashes, Integument intact Abnormal Lab Results 07/14/18 07/14/18 07/16/18 23:00 23:00 05:30 WBC 10.6 H RBC 3.32 L Hgb 7.3 L Hct 22.9 L MCV 68.9 L MCH 22.1 L RDW 21.3 H Absolute Neuts (auto) 8.2 H Sodium 135 L Carbon Dioxide BUN 37 H Creatinine 2.2 H Random Glucose 126 H Calcium 8.4 L AST 68 H Alkaline Phosphatase 531 H Total Protein Albumin 2.7 L Crossmatch See Detail 07/16/18 05:30 WBC RBC Hgb Hct MCV MCH RDW Absolute Neuts (auto) Sodium 134 L Carbon Dioxide 17 L BUN 42 H Creatinine 2.9 H Random Glucose 108 H Calcium 8.3 L AST Alkaline Phosphatase 386 H Total Protein 6.2 L Albumin 2.3 L Crossmatch Active Medications Generic Name Dose Route Start Last Admin Trade Name Freq PRN Reason Stop Dose Admin Acetaminophen 650 mg 07/15/18 04:16 07/15/18 22:46 Tylenol - PO 650 mg Q6H PRN Administration FOR TEMP. OF 100 OR GREATER Finasteride 5 mg 07/15/18 10:00 07/16/18 09:08 Proscar - PO 5 mg DAILY LIT Administration Heparin Sodium (Porcine) 5,000 unit 07/15/18 10:00 07/16/18 09:09 Heparin - SQ 5,000 unit BID LIT Administration Dextrose/Sodium Chloride 1,000 mls @ 100 mls/hr 07/15/18 00:45 07/16/18 07:35 D5-1/2ns - IV 100 mls/hr ASDIR LIT Administration Meropenem 1 gm/ Dextrose 100 mls @ 200 mls/hr 07/15/18 12:00 07/16/18 11:38 IVPB 200 mls/hr Q12H LIT Administration Metformin HCl 1,000 mg 07/15/18 07:00 07/16/18 06:05 Glucophage - PO 1,000 mg BIDAC LIT Administration Metoprolol Succinate 100 mg 07/15/18 10:00 07/16/18 09:09 Toprol Xl - PO 100 mg DAILY LIT Administration Multivitamins/Minerals 1 each 07/15/18 10:00 07/16/18 09:08 Theragran-M PO 1 each DAILY LIT Administration Nifedipine 30 mg 07/15/18 10:00 07/16/18 09:09 Procardia Xl - PO 30 mg DAILY LIT Administration Tamsulosin HCl 0.4 mg 07/15/18 08:30 07/16/18 07:35 Flomax - PO 0.4 mg DAILY@0830 LIT Administration Zolpidem Tartrate 5 mg 07/15/18 03:14 07/15/18 22:51 Ambien - PO 5 mg HS PRN Administration INSOMNIA A/P This is a 78 y.o. male with PMH of Metastatic Bladder CA (s/p C4 gemzar/ carboplatin 06/22/18) , currently with port in place, s/p urinary stent removal06/21 , s/p floley removal on 07/10/18 , DM, HTN, urinary retention s/p stent/ rahman removal, s/p recent treatment for Sepsis due to ESBL + Klebsiella UTI/ Bacteremia , and s/p TURP presenting with fever/weakness Also with acute renal failure, new since 07/05/18 Cultures negative so far follow up kidney/bladder u/s Urology/nephrology conults On antibiotics per ID
[2018-07-16] MEDS: SODIUM CHLORIDE 1,000 ML IV SCH (12:51)
--- NOTE | 2018-07-16 14:52 | PN ---
Progress Note, Physician History of Present Illness: Pt alert, without acute distress. Low grade fever to 100F today but downward trend noted. Ultrasound results noted. - Current Medication List Current Medications: Active Medications Acetaminophen (Tylenol -) 650 mg PO Q6H PRN PRN Reason: FOR TEMP. OF 100 OR GREATER Last Admin: 07/15/18 22:46 Dose: 650 mg Finasteride (Proscar -) 5 mg PO DAILY [facility] Last Admin: 07/16/18 09:08 Dose: 5 mg Heparin Sodium (Porcine) (Heparin -) 5,000 unit SQ BID [facility] Last Admin: 07/16/18 09:09 Dose: 5,000 unit Meropenem 1 gm/ Dextrose 100 mls @ 200 mls/hr IVPB Q12H [facility] Last Admin: 07/16/18 11:38 Dose: 200 mls/hr Sodium Chloride (Normal Saline -) 1,000 mls @ 60 mls/hr IV ASDIR [facility] Stop: 07/17/18 12:45 Last Admin: 07/16/18 12:51 Dose: 60 mls/hr Metformin HCl (Glucophage -) 1,000 mg PO BIDAC [facility] Last Admin: 07/16/18 06:05 Dose: 1,000 mg Metoprolol Succinate (Toprol Xl -) 100 mg PO DAILY [facility] Last Admin: 07/16/18 09:09 Dose: 100 mg Multivitamins/Minerals (Theragran-M) 1 each PO DAILY [facility] Last Admin: 07/16/18 09:08 Dose: 1 each Nifedipine (Procardia Xl -) 30 mg PO DAILY [facility] Last Admin: 07/16/18 09:09 Dose: 30 mg Tamsulosin HCl (Flomax -) 0.4 mg PO DAILY@0830 [facility] Last Admin: 07/16/18 07:35 Dose: 0.4 mg Zolpidem Tartrate (Ambien -) 5 mg PO HS PRN PRN Reason: INSOMNIA Last Admin: 07/15/18 22:51 Dose: 5 mg - Objective Vital Signs: Vital Signs Temperature 99.8 F H 07/16/18 14:39 Pulse Rate 88 07/16/18 14:39 Respiratory Rate 18 07/16/18 14:39 Blood Pressure 115/72 07/16/18 14:39 O2 Sat by Pulse Oximetry (%) 95 07/16/18 09:00 Constitutional: Yes: No Distress, Calm Cardiovascular: Yes: Regular Rate and Rhythm Respiratory: Yes: CTA Bilaterally Gastrointestinal: Yes: Normal Bowel Sounds, Soft Genitourinary: Yes: Rahman Present Extremities: Yes: WNL Edema: No Integumentary: Yes: WNL Neurological: Yes: Alert, Oriented Labs: CBC, BMP 07/16/18 05:30 07/16/18 05:30 INR, PTT INR 1.26 (0.83-1.09) H 07/14/18 21:35 Microbiology 07/15/18 10:00 Blood - Carmela Cath Blood Culture - Preliminary NO GROWTH OBTAINED AFTER 24 HOURS, INCUBATION TO CONTINUE FOR 4 DAYS. 07/15/18 09:20 Blood - Carmela Cath Blood Culture - Preliminary NO GROWTH OBTAINED AFTER 24 HOURS, INCUBATION TO CONTINUE FOR 4 DAYS. 07/15/18 00:10 Urine - Urine Clean Catch Urine Culture - Final NO GROWTH OBTAINED 07/14/18 23:00 Blood - Peripheral Venous Blood Culture - Preliminary NO GROWTH OBTAINED AFTER 24 HOURS, INCUBATION TO CONTINUE FOR 4 DAYS. 07/14/18 22:33 Blood - Peripheral Venous Blood Culture - Preliminary NO GROWTH OBTAINED AFTER 24 HOURS, INCUBATION TO CONTINUE FOR 4 DAYS. Problem List - Problems (1) KARTHIKEYAN (acute kidney injury) Code(s): N17.9 - ACUTE KIDNEY FAILURE, UNSPECIFIED (2) Anemia Code(s): D64.9 - ANEMIA, UNSPECIFIED (3) Lactic acidosis Code(s): E87.2 - ACIDOSIS (4) 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 Code(s): C79.9 - SECONDARY MALIGNANT NEOPLASM OF UNSPECIFIED SITE; C67.9 - MALIGNANT NEOPLASM OF BLADDER, UNSPECIFIED (5) BPH (benign prostatic hyperplasia) Code(s): N40.0 - BENIGN PROSTATIC HYPERPLASIA WITHOUT LOWER URINRY TRACT SYMP (6) Diabetes Code(s): E11.9 - TYPE 2 DIABETES MELLITUS WITHOUT COMPLICATIONS (7) Fever Code(s): R50.9 - FEVER, UNSPECIFIED Qualifiers: Fever type: unspecified Qualified Code(s): R50.9 - Fever, unspecified (8) HLD (hyperlipidemia) Code(s): E78.5 - HYPERLIPIDEMIA, UNSPECIFIED (9) Hypertension Code(s): I10 - ESSENTIAL (PRIMARY) HYPERTENSION Qualifiers: Hypertension type: other secondary hypertension Qualified Code(s): I15.8 - Other secondary hypertension (10) Sepsis Code(s): A41.9 - SEPSIS, UNSPECIFIED ORGANISM Qualifiers: Sepsis type: sepsis due to unspecified organism Qualified Code(s): A41.9 - Sepsis, unspecified organism (11) UTI (urinary tract infection) Code(s): N39.0 - URINARY TRACT INFECTION, SITE NOT SPECIFIED Assessment/Plan This is a 78 y.o. male with PMH of Metastatic Bladder CA (s/p chemotherapy over 3 wks ago) , currently with port in place, s/p urinary stent removal prior to last admission , DM, HTN, urinary retention s/p stent/rahman removal, s/p recent treatment for Sepsis due to ESBL + Klebsiella UTI/Bacteremia , and s/p TURP presenting with fever/weakness Sepsis b/l hydronephrosis Obstructive uropathy Met Bladder CA KARTHIKEYAN Urinary retention s/p TURP s/p UTI/Bacteremia DM -- recommend continue Meropenem for now -- creatinine increasing, new Rt hydronephrosis on US, persistent Lt hydronephrosis -- consider CT abd/pelvis -- cultures without growth so far -- Hematology/Oncology follow up, urology follow up -- nephrology consult requested -- continue monitor vitals
[2018-07-16] MEDS: MEROPENEM 500 MG in DEXTROSE 5%-WATER 100 ML IVPB SCH (17:40)
--- NOTE | 2018-07-16 20:32 | CON.NEP ---
Consult Consult Specialty:: Nephrology Referred by:: dr felix Reason for Consultation:: acute renal failure - History of Present Illness Chief Complaint: weakness and fever History of Present Illness: metastatic bladder ca presented with gen weakness and fever found to have kidney failure and evidence of obstructive uropathy PMHx noted dm, htn, ckd, portal htn, thalassemia thorac aortic aneurysm cirrhosis Recently admitted 06/25/18 for UTI complicated by anemia requiring blood transfusion - Urine culture grew ESBL E. coli - Treated with Ertapenem - Pt discharged 07/06/18 with rahman catheter, plan to continue IVAB through port - History Source History Provided By: Patient, Medical Record - Past Medical History Cardio/Vascular: Yes: HTN, Hyperlipdemia Renal/: Yes: Renal Failure, BPH, Cancer, Hematuria Endocrine: Yes: Diabetes Mellitus - Past Surgical History Past Surgical History: Yes: Stent (urinary), TURP - Alcohol/Substance Use Hx Alcohol Use: No - Smoking History Smoking history: Never smoked Have you smoked in the past 12 months: No Aproximately how many cigarettes per day: 0 If you are a former smoker, when did you quit?: 1989 - Social History Usual Living Arrangement: With Spouse History of Recent Travel: No Home Medications - Allergies Allergies/Adverse Reactions: Allergies Allergy/AdvReac Type Severity Reaction Status Date / Time No Known Allergies Allergy Verified 07/14/18 20:59 - Home Medications Home Medications: Ambulatory Orders Finasteride [Proscar -] 5 mg PO DAILY 06/25/18 Metformin HCl [Glucophage] 1,000 mg PO BID 06/25/18 Metoclopramide HCl 5 mg PO BID PRN 06/25/18 Metoprolol Succinate [Toprol XL -] 100 mg PO DAILY 06/25/18 Multivit-Min/FA/Lycopen/Lutein [Centrum Silver Men Tablet] 1 each PO DAILY 06/25 Nifedipine [Procardia Xl] 30 mg PO DAILY 06/25/18 Silodosin [Rapaflo] 8 mg PO DAILY 06/25/18 Zolpidem Tartrate [Ambien] 5 mg PO HS 06/25/18 Ertapenem Sodium [Invanz -] 1 gm IVPB DAILY vial 07/06/18 Zolpidem Tartrate [Ambien] 5 mg PO HS PRN #30 tablet MDD 1 07/06/18 Nephrology Consult - Height Height: 5 ft 10 in - Weight Weight: 166 lb 4.8 oz - BMI Body Mass Index (BMI): 23.8 - Lab Results CBC,BMP: CBC, BMP 07/16/18 05:30 07/16/18 05:30 Anion Gap: Anion Gap Anion Gap 15 MMOL/L (8-16) 07/16/18 05:30 - Physical Examination Vital Signs: Vital Signs Temperature 98.9 F 07/16/18 18:00 Pulse Rate 85 07/16/18 18:00 Respiratory Rate 18 07/16/18 18:00 Blood Pressure 120/75 07/16/18 18:00 O2 Sat by Pulse Oximetry (%) 95 07/16/18 09:00 Constitutional: Yes: Well Nourished, No Distress, Calm Eyes: Yes: WNL, Conjunctiva Clear, EOM Intact HENT: Yes: WNL, Atraumatic, Normocephalic Neck: Yes: WNL, Supple, Trachea Midline Cardiovascular: Yes: WNL, Regular Rate and Rhythm Respiratory: Yes: WNL, Regular, CTA Bilaterally Gastrointestinal: Yes: WNL, Normal Bowel Sounds Renal/: Yes: WNL, Rahman Present Musculoskeletal: Yes: WNL Extremities: Yes: WNL Integumentary: Yes: WNL Neurological: Yes: WNL, Alert, Oriented Psychiatric: Yes: WNL, Alert, Oriented Assessment/Plan margaret recurrent obstructive uropathy bladder ca stage 4 dehydration r/o uti Plan- agree with IVF follow bmp and urine output
--- NOTE | 2018-07-16 20:55 | PN ---
Progress Note, Physician History of Present Illness: No new complaints - Current Medication List Current Medications: Active Medications Acetaminophen (Tylenol -) 650 mg PO Q6H PRN PRN Reason: FOR TEMP. OF 100 OR GREATER Last Admin: 07/15/18 22:46 Dose: 650 mg Finasteride (Proscar -) 5 mg PO DAILY [facility] Last Admin: 07/16/18 09:08 Dose: 5 mg Heparin Sodium (Porcine) (Heparin -) 5,000 unit SQ BID [facility] Last Admin: 07/16/18 09:09 Dose: 5,000 unit Sodium Chloride (Normal Saline -) 1,000 mls @ 60 mls/hr IV ASDIR [facility] Stop: 07/17/18 12:45 Last Admin: 07/16/18 12:51 Dose: 60 mls/hr Meropenem 500 mg/ Dextrose 100 mls @ 200 mls/hr IVPB Q8H-IV [facility] Last Admin: 07/16/18 17:40 Dose: 200 mls/hr Metformin HCl (Glucophage -) 1,000 mg PO BIDAC [facility] Last Admin: 07/16/18 16:20 Dose: 1,000 mg Metoprolol Succinate (Toprol Xl -) 100 mg PO DAILY [facility] Last Admin: 07/16/18 09:09 Dose: 100 mg Multivitamins/Minerals (Theragran-M) 1 each PO DAILY [facility] Last Admin: 07/16/18 09:08 Dose: 1 each Nifedipine (Procardia Xl -) 30 mg PO DAILY [facility] Last Admin: 07/16/18 09:09 Dose: 30 mg Tamsulosin HCl (Flomax -) 0.4 mg PO DAILY@0830 [facility] Last Admin: 07/16/18 07:35 Dose: 0.4 mg Zolpidem Tartrate (Ambien -) 5 mg PO HS PRN PRN Reason: INSOMNIA Last Admin: 07/15/18 22:51 Dose: 5 mg - Objective Vital Signs: Vital Signs Temperature 98.9 F 07/16/18 18:00 Pulse Rate 85 07/16/18 18:00 Respiratory Rate 18 07/16/18 18:00 Blood Pressure 120/75 07/16/18 18:00 O2 Sat by Pulse Oximetry (%) 95 07/16/18 09:00 HENT: Yes: WNL Neck: Yes: WNL, Supple Cardiovascular: Yes: WNL, Regular Rate and Rhythm Respiratory: Yes: WNL, Regular, CTA Bilaterally Gastrointestinal: Yes: WNL, Normal Bowel Sounds, Soft Labs: CBC, BMP 07/16/18 05:30 07/16/18 05:30 INR, PTT INR 1.26 (0.83-1.09) H 07/14/18 21:35 Problem List - Problems (1) Acute on chronic renal failure Code(s): N17.9 - ACUTE KIDNEY FAILURE, UNSPECIFIED; N18.9 - CHRONIC KIDNEY DISEASE, UNSPECIFIED (2) Anemia Code(s): D64.9 - ANEMIA, UNSPECIFIED (3) 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 Code(s): C79.9 - SECONDARY MALIGNANT NEOPLASM OF UNSPECIFIED SITE; C67.9 - MALIGNANT NEOPLASM OF BLADDER, UNSPECIFIED (4) BPH (benign prostatic hyperplasia) Code(s): N40.0 - BENIGN PROSTATIC HYPERPLASIA WITHOUT LOWER URINRY TRACT SYMP (5) Diabetes Code(s): E11.9 - TYPE 2 DIABETES MELLITUS WITHOUT COMPLICATIONS (6) HLD (hyperlipidemia) Code(s): E78.5 - HYPERLIPIDEMIA, UNSPECIFIED (7) Hypertension Code(s): I10 - ESSENTIAL (PRIMARY) HYPERTENSION Qualifiers: Hypertension type: other secondary hypertension Qualified Code(s): I15.8 - Other secondary hypertension (8) Sepsis Code(s): A41.9 - SEPSIS, UNSPECIFIED ORGANISM Qualifiers: Sepsis type: sepsis due to unspecified organism Qualified Code(s): A41.9 - Sepsis, unspecified organism
--- NOTE | 2018-07-16 22:24 | PN ---
Progress Note (short form) - Note Progress Note: UROLOGY NOTE. pt. with h/o metastatic tcc of urinary bladder. S/P. cysto and jj stent placement 4wks. ago. must r/o obstructed jj stents. will get diuretic nuclear renal scan in am.
[2018-07-16] MEDS: ZOLPIDEM TARTRATE 5 MG TABLET PO PRN (23:09)
[2018-07-17] MEDS: MEROPENEM 500 MG in DEXTROSE 5%-WATER 100 ML IVPB SCH ×3 (02:02→18:30)
[2018-07-17] MEDS: ACETAMINOPHEN 325 MG TABLET (FP) PO PRN (05:39)
[2018-07-17] MEDS: metFORMIN HCL 500 MG TABLET (FP) PO SCH ×2 (06:15→16:55)
[2018-07-17] MEDS: HEPARIN NA (PORCINE) 5,000 UNITS/ML 1ML VIAL SQ SCH ×2 (09:33→21:07)
[2018-07-17] MEDS: FINASTERIDE 5 MG TABLET (FP) PO SCH (09:33)
[2018-07-17] MEDS: MULTIVITAMINS THER W-MINERALS COMBO TABLET (FP) PO SCH (09:33)
[2018-07-17] MEDS: NIFEdipine E.R. 30 MG TABLET (FP) PO SCH (09:33)
--- NOTE | 2018-07-17 09:33 | PN ---
Progress Note, Physician History of Present Illness: patient stable now with foleys catheter feels good wbc trending down - Current Medication List Current Medications: Active Medications Acetaminophen (Tylenol -) 650 mg PO Q6H PRN PRN Reason: FOR TEMP. OF 100 OR GREATER Last Admin: 07/17/18 05:39 Dose: 650 mg Finasteride (Proscar -) 5 mg PO DAILY [facility] Last Admin: 07/16/18 09:08 Dose: 5 mg Heparin Sodium (Porcine) (Heparin -) 5,000 unit SQ BID [facility] Last Admin: 07/16/18 21:03 Dose: 5,000 unit Sodium Chloride (Normal Saline -) 1,000 mls @ 60 mls/hr IV ASDIR [facility] Stop: 07/17/18 12:45 Last Admin: 07/16/18 12:51 Dose: 60 mls/hr Meropenem 500 mg/ Dextrose 100 mls @ 200 mls/hr IVPB Q8H-IV [facility] Last Admin: 07/17/18 02:02 Dose: 200 mls/hr Metformin HCl (Glucophage -) 1,000 mg PO BIDAC [facility] Last Admin: 07/17/18 06:15 Dose: 1,000 mg Metoprolol Succinate (Toprol Xl -) 100 mg PO DAILY [facility] Last Admin: 07/16/18 09:09 Dose: 100 mg Multivitamins/Minerals (Theragran-M) 1 each PO DAILY [facility] Last Admin: 07/16/18 09:08 Dose: 1 each Nifedipine (Procardia Xl -) 30 mg PO DAILY [facility] Last Admin: 07/16/18 09:09 Dose: 30 mg Tamsulosin HCl (Flomax -) 0.4 mg PO DAILY@0830 [facility] Last Admin: 07/16/18 07:35 Dose: 0.4 mg Zolpidem Tartrate (Ambien -) 5 mg PO HS PRN PRN Reason: INSOMNIA Last Admin: 07/16/18 23:09 Dose: 5 mg - Objective Vital Signs: Vital Signs Temperature 100 F H 07/17/18 06:00 Pulse Rate 89 07/17/18 06:00 Respiratory Rate 18 07/17/18 06:00 Blood Pressure 130/79 07/17/18 06:00 O2 Sat by Pulse Oximetry (%) 96 07/16/18 21:00 Constitutional: Yes: No Distress, Calm Cardiovascular: Yes: Regular Rate and Rhythm Respiratory: Yes: Regular, CTA Bilaterally Gastrointestinal: Yes: Normal Bowel Sounds, Soft Genitourinary: Yes: Rahman Present Musculoskeletal: Yes: WNL Extremities: Yes: WNL Neurological: Yes: Alert, Oriented Psychiatric: Yes: Alert, Oriented Labs: CBC, BMP 07/16/18 05:30 07/16/18 05:30 INR, PTT INR 1.26 (0.83-1.09) H 07/14/18 21:35 Assessment/Plan Problem List - Problems (1) KARTHIKEYAN (acute kidney injury) Code(s): N17.9 - ACUTE KIDNEY FAILURE, UNSPECIFIED (2) Anemia Code(s): D64.9 - ANEMIA, UNSPECIFIED (3) Lactic acidosis Code(s): E87.2 - ACIDOSIS (4) 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 Code(s): C79.9 - SECONDARY MALIGNANT NEOPLASM OF UNSPECIFIED SITE; C67.9 - MALIGNANT NEOPLASM OF BLADDER, UNSPECIFIED (5) BPH (benign prostatic hyperplasia) Code(s): N40.0 - BENIGN PROSTATIC HYPERPLASIA WITHOUT LOWER URINRY TRACT SYMP (6) Diabetes Code(s): E11.9 - TYPE 2 DIABETES MELLITUS WITHOUT COMPLICATIONS (7) Fever Code(s): R50.9 - FEVER, UNSPECIFIED Qualifiers: Fever type: unspecified Qualified Code(s): R50.9 - Fever, unspecified (8) HLD (hyperlipidemia) Code(s): E78.5 - HYPERLIPIDEMIA, UNSPECIFIED (9) Hypertension Code(s): I10 - ESSENTIAL (PRIMARY) HYPERTENSION Qualifiers: Hypertension type: other secondary hypertension Qualified Code(s): I15.8 - Other secondary hypertension (10) Sepsis Code(s): A41.9 - SEPSIS, UNSPECIFIED ORGANISM Qualifiers: Sepsis type: sepsis due to unspecified organism Qualified Code(s): A41.9 - Sepsis, unspecified organism (11) UTI (urinary tract infection) Code(s): N39.0 - URINARY TRACT INFECTION, SITE NOT SPECIFIED Assessment/Plan This is a 78 y.o. male with PMH of Metastatic Bladder CA (s/p chemotherapy over 3 wks ago) , currently with port in place, s/p urinary stent removal prior to last admission , DM, HTN, urinary retention s/p stent/rahman removal, s/p recent treatment for Sepsis due to ESBL + Klebsiella UTI/Bacteremia , and s/p TURP presenting with fever/weakness Sepsis b/l hydronephrosis Obstructive uropathy Met Bladder CA KARTHIKEYAN Urinary retention s/p TURP s/p UTI/Bacteremia DM continue abx monitor renal function repeat u/s after week urology on case rest as per the team cx reports noted
[2018-07-17 14:00] LABS: BASO % 0.6 % (0-2.0); EOS % 5.5 % (0-4.5); HEMATOCRIT 26.7 % (35.4-49); HEMOGLOBIN 8.5 GM/dL (11.7-16.9); LYMPH % 6.5 % (8-40); MCH 22.6 pg (25.7-33.7); MCHC 31.9 g/dl (32.0-35.9); MEAN CELL VOLUME 70.9 fl (80-96); MONO % 6.5 % (3.8-10.2); NEUT % 80.9 % (42.8-82.8); PLATELET COUNT 232 K/MM3 (134-434); RBC 3.77 M/mm3 (4.00-5.60); RDW 22.7 % (11.9-15.9)
[2018-07-17 14:43] LABS: ALBUMIN 2.2 g/dl (3.4-5.0); ALK PHOS 443 U/L (45-117); ANION GAP 13 MMOL/L (8-16); BILIRUBIN,TOTAL 0.6 mg/dL (0.2-1); BLOOD UREA NITROGEN 48 mg/dL (7-18); CALCIUM 8.2 mg/dL (8.5-10.1); CHLORIDE 107 mmol/L (98-107); CO2 19 mmol/L (21-32); CREATININE 2.2 mg/dL (0.55-1.3); GLUCOSE,RANDOM 141 mg/dL (74-106); POTASSIUM 4.1 mmol/L (3.5-5.1); SGOT/AST 37 U/L (15-37); SGPT/ALT 29 U/L (13-61); SODIUM 139 mmol/L (136-145); TOT PROT 6.3 g/dl (6.4-8.2)
[2018-07-17] MEDS: SODIUM CHLORIDE 1,000 ML IV SCH ×2 (16:55→18:30)
[2018-07-17] MEDS: TAMSULOSIN HCL 0.4 MG CAP PO SCH (16:59)
--- NOTE | 2018-07-17 17:06 | PN ---
Progress Note, Physician History of Present Illness: Pt seen and examined at bedside. He is awake and alert. He has a rahman in place. He denies shortness of breath. - Current Medication List Current Medications: Active Medications Acetaminophen (Tylenol -) 650 mg PO Q6H PRN PRN Reason: FOR TEMP. OF 100 OR GREATER Last Admin: 07/17/18 05:39 Dose: 650 mg Finasteride (Proscar -) 5 mg PO DAILY [facility] Last Admin: 07/17/18 09:33 Dose: 5 mg Heparin Sodium (Porcine) (Heparin -) 5,000 unit SQ BID [facility] Last Admin: 07/17/18 09:33 Dose: 5,000 unit Meropenem 500 mg/ Dextrose 100 mls @ 200 mls/hr IVPB Q8H-IV [facility] Last Admin: 07/17/18 09:33 Dose: 200 mls/hr Metformin HCl (Glucophage -) 1,000 mg PO BIDAC [facility] Last Admin: 07/17/18 16:55 Dose: 1,000 mg Metoprolol Succinate (Toprol Xl -) 100 mg PO DAILY [facility] Last Admin: 07/17/18 09:33 Dose: 100 mg Multivitamins/Minerals (Theragran-M) 1 each PO DAILY [facility] Last Admin: 07/17/18 09:33 Dose: 1 each Nifedipine (Procardia Xl -) 30 mg PO DAILY [facility] Last Admin: 07/17/18 09:33 Dose: 30 mg Tamsulosin HCl (Flomax -) 0.4 mg PO DAILY@0830 [facility] Last Admin: 07/17/18 16:59 Dose: 0.4 mg Zolpidem Tartrate (Ambien -) 5 mg PO HS PRN PRN Reason: INSOMNIA Last Admin: 07/16/18 23:09 Dose: 5 mg - Objective Vital Signs: Vital Signs Temperature 98.1 F 07/17/18 14:42 Pulse Rate 80 07/17/18 14:42 Respiratory Rate 20 07/17/18 14:42 Blood Pressure 111/78 07/17/18 14:42 O2 Sat by Pulse Oximetry (%) 96 07/17/18 09:00 Constitutional: Yes: Calm Eyes: Yes: Conjunctiva Clear HENT: Yes: Atraumatic Cardiovascular: Yes: S1, S2 Respiratory: Yes: CTA Bilaterally Gastrointestinal: Yes: Soft Genitourinary: Yes: Rahman Present Musculoskeletal: Yes: WNL Extremities: Yes: WNL Edema: No Neurological: Yes: Oriented Psychiatric: Yes: Oriented Labs: CBC, BMP 07/17/18 13:40 07/17/18 13:40 INR, PTT INR 1.26 (0.83-1.09) H 07/14/18 21:35 Problem List - Problems (1) KARTHIKEYAN (acute kidney injury) Code(s): N17.9 - ACUTE KIDNEY FAILURE, UNSPECIFIED Assessment/Plan Current Medications Generic Name Dose Route Start Last Admin Trade Name Freq PRN Reason Stop Dose Admin Acetaminophen 650 mg 07/15/18 04:16 07/17/18 05:39 Tylenol - PO 650 mg Q6H PRN Administration FOR TEMP. OF 100 OR GREATER Finasteride 5 mg 07/15/18 10:00 07/17/18 09:33 Proscar - PO 5 mg DAILY [facility] Administration Heparin Sodium (Porcine) 5,000 unit 07/15/18 10:00 07/17/18 09:33 Heparin - SQ 5,000 unit BID [facility] Administration Meropenem 500 mg/ Dextrose 100 mls @ 200 mls/hr 07/16/18 18:00 07/17/18 09:33 IVPB 200 mls/hr Q8H-IV [facility] Administration Metformin HCl 1,000 mg 07/15/18 07:00 07/17/18 16:55 Glucophage - PO 1,000 mg BIDAC [facility] Administration Metoprolol Succinate 100 mg 07/15/18 10:00 07/17/18 09:33 Toprol Xl - PO 100 mg DAILY [facility] Administration Multivitamins/Minerals 1 each 07/15/18 10:00 07/17/18 09:33 Theragran-M PO 1 each DAILY [facility] Administration Nifedipine 30 mg 07/15/18 10:00 07/17/18 09:33 Procardia Xl - PO 30 mg DAILY [facility] Administration Tamsulosin HCl 0.4 mg 07/15/18 08:30 07/17/18 16:59 Flomax - PO 0.4 mg DAILY@0830 [facility] Administration Zolpidem Tartrate 5 mg 07/15/18 03:14 07/16/18 23:09 Ambien - PO 5 mg HS PRN Administration INSOMNIA Impression 1. KARTHIKEYAN 2. hydronephrosis 3. bladder cancer with mets 4. DM 5. HTN Plan - renal function improving - maintain rahman for now - urology follow up - pt follows with Dr Rausch, I have called and informed him and he will take over care - repeat labs in am - follow renal scan Dr Verdin
--- NOTE | 2018-07-17 18:18 | PN ---
Progress Note, Physician History of Present Illness: No new complaints - Current Medication List Current Medications: Active Medications Acetaminophen (Tylenol -) 650 mg PO Q6H PRN PRN Reason: FOR TEMP. OF 100 OR GREATER Last Admin: 07/17/18 05:39 Dose: 650 mg Finasteride (Proscar -) 5 mg PO DAILY [facility] Last Admin: 07/17/18 09:33 Dose: 5 mg Heparin Sodium (Porcine) (Heparin -) 5,000 unit SQ BID [facility] Last Admin: 07/17/18 09:33 Dose: 5,000 unit Meropenem 500 mg/ Dextrose 100 mls @ 200 mls/hr IVPB Q8H-IV [facility] Last Admin: 07/17/18 09:33 Dose: 200 mls/hr Sodium Chloride (Normal Saline -) 1,000 mls @ 75 mls/hr IV ASDIR [facility] Metformin HCl (Glucophage -) 1,000 mg PO BIDAC [facility] Last Admin: 07/17/18 16:55 Dose: 1,000 mg Metoprolol Succinate (Toprol Xl -) 100 mg PO DAILY [facility] Last Admin: 07/17/18 09:33 Dose: 100 mg Multivitamins/Minerals (Theragran-M) 1 each PO DAILY [facility] Last Admin: 07/17/18 09:33 Dose: 1 each Nifedipine (Procardia Xl -) 30 mg PO DAILY [facility] Last Admin: 07/17/18 09:33 Dose: 30 mg Tamsulosin HCl (Flomax -) 0.4 mg PO DAILY@0830 [facility] Last Admin: 07/17/18 16:59 Dose: 0.4 mg Zolpidem Tartrate (Ambien -) 5 mg PO HS PRN PRN Reason: INSOMNIA Last Admin: 07/16/18 23:09 Dose: 5 mg - Objective Vital Signs: Vital Signs Temperature 98.1 F 07/17/18 14:42 Pulse Rate 80 07/17/18 14:42 Respiratory Rate 20 07/17/18 14:42 Blood Pressure 111/78 07/17/18 14:42 O2 Sat by Pulse Oximetry (%) 96 07/17/18 09:00 Neck: Yes: WNL, Supple Cardiovascular: Yes: WNL, Regular Rate and Rhythm Respiratory: Yes: WNL, Regular, CTA Bilaterally Gastrointestinal: Yes: WNL, Normal Bowel Sounds, Soft Labs: CBC, BMP 07/17/18 13:40 10/01/18 13:40 INR, PTT INR 1.26 (0.83-1.09) H 07/14/18 21:35 Problem List - Problems (1) Sepsis Assessment/Plan: Cont IV antibxs Follow cultures wc have remained negtive Renal scan done today Code(s): A41.9 - SEPSIS, UNSPECIFIED ORGANISM Qualifiers: Sepsis type: sepsis due to unspecified organism Qualified Code(s): A41.9 - Sepsis, unspecified organism (2) Acute on chronic renal failure Assessment/Plan: Renal scan Monitor bun/creatinine Code(s): N17.9 - ACUTE KIDNEY FAILURE, UNSPECIFIED; N18.9 - CHRONIC KIDNEY DISEASE, UNSPECIFIED (3) Anemia Assessment/Plan: S/P transfusion PRBC's Monitor H/H Code(s): D64.9 - ANEMIA, UNSPECIFIED (4) 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 Code(s): C79.9 - SECONDARY MALIGNANT NEOPLASM OF UNSPECIFIED SITE; C67.9 - MALIGNANT NEOPLASM OF BLADDER, UNSPECIFIED (5) BPH (benign prostatic hyperplasia) Code(s): N40.0 - BENIGN PROSTATIC HYPERPLASIA WITHOUT LOWER URINRY TRACT SYMP (6) Diabetes Assessment/Plan: Hold metformin or 24 hrs Cont sliding scale w/ coverage Code(s): E11.9 - TYPE 2 DIABETES MELLITUS WITHOUT COMPLICATIONS (7) HLD (hyperlipidemia) Code(s): E78.5 - HYPERLIPIDEMIA, UNSPECIFIED (8) Hypertension Code(s): I10 - ESSENTIAL (PRIMARY) HYPERTENSION Qualifiers: Hypertension type: other secondary hypertension Qualified Code(s): I15.8 - Other secondary hypertension
--- NOTE | 2018-07-17 21:37 | PN ---
Progress Note (short form) - Note Progress Note: PAtient seen and examined Feels better Last Vital Signs Temp Pulse Resp BP Pulse Ox 98.3 F 91 H 18 123/70 96 07/17/18 18:56 07/17/18 18:56 07/17/18 18:56 07/17/18 18:56 07/17/18 09:00 Cor: RSR, No murmurs, No gallops Lungs: Clear to P&A Abd: Soft, Normal bowel sounds, No organomegaly Ext:No significant edema Skin: No rashes, Integument intact Labs/Meds reviewed A/P This is a 78 y.o. male with PMH of Metastatic Bladder CA (s/p C4 gemzar/ carboplatin 06/22/18) , currently with port in place, s/p urinary stent removal06/21 , s/p floley removal on 07/10/18 , DM, HTN, urinary retention s/p stent/ rahman removal, s/p recent treatment for Sepsis due to ESBL + Klebsiella UTI/ Bacteremia , and s/p TURP presenting with fever/weakness Also with acute renal failure, new since 07/05/18 Cultures negative so far follow uprenal scan renal failure improving after rahman placement urology/nephrology follow up chemotherapy on hold
[2018-07-17] MEDS: ZOLPIDEM TARTRATE 5 MG TABLET PO PRN (23:00)
[2018-07-18] MEDS ORDERED: PT OWN MED DRAWER 7, Y5N ONE (01:54)
[2018-07-18] MEDS: MEROPENEM 500 MG in DEXTROSE 5%-WATER 100 ML IVPB SCH (02:04)
[2018-07-18] MEDS: PORTA CATH FLUSH 10 ML IVPUSH PRN (06:03)
[2018-07-18 07:43] LABS: BASO % 0.4 % (0-2.0); EOS % 3.6 % (0-4.5); HEMOGLOBIN 8.2 GM/dL (11.7-16.9); MCH 22.3 pg (25.7-33.7); MCHC 31.6 g/dl (32.0-35.9); MEAN CELL VOLUME 70.6 fl (80-96); MEAN PLT VOLUME 9.6 fl (7.5-11.1); MONO % 6.2 % (3.8-10.2); NEUT % 81.8 % (42.8-82.8); PLATELET COUNT 248 K/MM3 (134-434); RBC 3.68 M/mm3 (4.00-5.60); RDW 22.5 % (11.9-15.9); WHITE BLOOD COUNT 11.4 K/mm3 (4.0-10.0)
[2018-07-18 08:19] LABS: ALBUMIN 2.3 g/dl (3.4-5.0); ALK PHOS 605 U/L (45-117); ANION GAP 14 MMOL/L (8-16); BILIRUBIN,TOTAL 0.9 mg/dL (0.2-1); BLOOD UREA NITROGEN 50 mg/dL (7-18); CALCIUM 8.3 mg/dL (8.5-10.1); CHLORIDE 106 mmol/L (98-107); CO2 18 mmol/L (21-32); CREATININE 2.5 mg/dL (0.55-1.3); GLUCOSE,RANDOM 101 mg/dL (74-106); POTASSIUM 4.2 mmol/L (3.5-5.1); SGOT/AST 40 U/L (15-37); SGPT/ALT 40 U/L (13-61); SODIUM 137 mmol/L (136-145); TOT PROT 6.4 g/dl (6.4-8.2)
--- NOTE | 2018-07-18 08:37 | PN ---
Progress Note, Physician History of Present Illness: stable no new issues - Current Medication List Current Medications: Active Medications Acetaminophen (Tylenol -) 650 mg PO Q6H PRN PRN Reason: FOR TEMP. OF 100 OR GREATER Last Admin: 07/17/18 05:39 Dose: 650 mg Finasteride (Proscar -) 5 mg PO DAILY [facility] Last Admin: 07/17/18 09:33 Dose: 5 mg Heparin Sodium (Porcine) (Heparin -) 5,000 unit SQ BID [facility] Last Admin: 07/17/18 21:07 Dose: 5,000 unit IV Flush (Carmela-Cath Flush) 10 ml IVPUSH PRN PRN PRN Reason: protocol; maintain patency Last Admin: 07/18/18 06:03 Dose: 10 ml Meropenem 500 mg/ Dextrose 100 mls @ 200 mls/hr IVPB Q8H-IV [facility] Last Admin: 07/18/18 02:04 Dose: 200 mls/hr Sodium Chloride (Normal Saline -) 1,000 mls @ 75 mls/hr IV ASDIR [facility] Last Admin: 07/17/18 18:30 Dose: 75 mls/hr Metformin HCl (Glucophage -) 1,000 mg PO BIDAC [facility] Last Admin: 07/17/18 16:55 Dose: 1,000 mg Metoprolol Succinate (Toprol Xl -) 100 mg PO DAILY [facility] Last Admin: 07/17/18 09:33 Dose: 100 mg Multivitamins/Minerals (Theragran-M) 1 each PO DAILY [facility] Last Admin: 07/17/18 09:33 Dose: 1 each Nifedipine (Procardia Xl -) 30 mg PO DAILY [facility] Last Admin: 07/17/18 09:33 Dose: 30 mg Tamsulosin HCl (Flomax -) 0.4 mg PO DAILY@0830 [facility] Last Admin: 07/17/18 16:59 Dose: 0.4 mg Zolpidem Tartrate (Ambien -) 5 mg PO HS PRN PRN Reason: INSOMNIA Last Admin: 07/17/18 23:00 Dose: 5 mg - Objective Vital Signs: Vital Signs Temperature 99.2 F 07/18/18 05:37 Pulse Rate 95 H 07/18/18 05:37 Respiratory Rate 18 07/18/18 05:37 Blood Pressure 140/84 07/18/18 05:37 O2 Sat by Pulse Oximetry (%) 95 10/01/18 21:00 Constitutional: Yes: No Distress, Calm Cardiovascular: Yes: Regular Rate and Rhythm Respiratory: Yes: Regular, CTA Bilaterally Gastrointestinal: Yes: Normal Bowel Sounds, Soft Genitourinary: Yes: Rahman Present Musculoskeletal: Yes: WNL Extremities: Yes: WNL Neurological: Yes: Alert, Oriented Psychiatric: Yes: Alert, Oriented Labs: CBC, BMP 07/18/18 06:00 07/18/18 06:00 INR, PTT INR 1.26 (0.83-1.09) H 07/14/18 21:35 Assessment/Plan Problem List - Problems (1) KARTHIKEYAN (acute kidney injury) Code(s): N17.9 - ACUTE KIDNEY FAILURE, UNSPECIFIED (2) Anemia Code(s): D64.9 - ANEMIA, UNSPECIFIED (3) Lactic acidosis Code(s): E87.2 - ACIDOSIS (4) 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 Code(s): C79.9 - SECONDARY MALIGNANT NEOPLASM OF UNSPECIFIED SITE; C67.9 - MALIGNANT NEOPLASM OF BLADDER, UNSPECIFIED (5) BPH (benign prostatic hyperplasia) Code(s): N40.0 - BENIGN PROSTATIC HYPERPLASIA WITHOUT LOWER URINRY TRACT SYMP (6) Diabetes Code(s): E11.9 - TYPE 2 DIABETES MELLITUS WITHOUT COMPLICATIONS (7) Fever Code(s): R50.9 - FEVER, UNSPECIFIED Qualifiers: Fever type: unspecified Qualified Code(s): R50.9 - Fever, unspecified (8) HLD (hyperlipidemia) Code(s): E78.5 - HYPERLIPIDEMIA, UNSPECIFIED (9) Hypertension Code(s): I10 - ESSENTIAL (PRIMARY) HYPERTENSION Qualifiers: Hypertension type: other secondary hypertension Qualified Code(s): I15.8 - Other secondary hypertension (10) Sepsis Code(s): A41.9 - SEPSIS, UNSPECIFIED ORGANISM Qualifiers: Sepsis type: sepsis due to unspecified organism Qualified Code(s): A41.9 - Sepsis, unspecified organism (11) UTI (urinary tract infection) Code(s): N39.0 - URINARY TRACT INFECTION, SITE NOT SPECIFIED Assessment/Plan This is a 78 y.o. male with PMH of Metastatic Bladder CA (s/p chemotherapy over 3 wks ago) , currently with port in place, s/p urinary stent removal prior to last admission , DM, HTN, urinary retention s/p stent/rahman removal, s/p recent treatment for Sepsis due to ESBL + Klebsiella UTI/Bacteremia , and s/p TURP presenting with fever/weakness Sepsis b/l hydronephrosis Obstructive uropathy Met Bladder CA KARTHIKEYAN Urinary retention s/p TURP s/p UTI/Bacteremia DM all cx reports noted plan continue hydration rest as per team and urology will stop abx
[2018-07-18] MEDS: HEPARIN NA (PORCINE) 5,000 UNITS/ML 1ML VIAL SQ SCH ×2 (09:15→22:24)
[2018-07-18] MEDS: MULTIVITAMINS THER W-MINERALS COMBO TABLET (FP) PO SCH (09:15)
[2018-07-18] MEDS: NIFEdipine E.R. 30 MG TABLET (FP) PO SCH (09:15)
[2018-07-18] MEDS: TAMSULOSIN HCL 0.4 MG CAP PO SCH (09:15)
[2018-07-18] MEDS: FINASTERIDE 5 MG TABLET (FP) PO SCH (09:15)
[2018-07-18 11:11] LABS: ANISOCYTOSIS 1+; MACROCYTOSIS 0; PLATELET ESTIMATE NORMAL; TARGET CELLS 1+; TEAR DROP CELLS 1+
--- NOTE | 2018-07-18 15:00 | PN ---
Progress Note (short form) - Note Progress Note: Renal Follow up for KARTHIKEYAN Pt seen and examined at the bedside no acute complaints making urine via Galarza no sob, cp, abd pain no flank pain, abd pain no swelling Vital Signs Temperature 98.8 F 07/18/18 14:41 Pulse Rate 88 07/18/18 14:41 Respiratory Rate 20 07/18/18 14:41 Blood Pressure 117/67 07/18/18 14:41 O2 Sat by Pulse Oximetry (%) 95 07/18/18 09:00 Intake & Output 07/15/18 07/16/18 07/17/18 07/18/18 23:59 23:59 23:59 23:59 Intake Total 1450 2740 1740 1378 Output Total 1750 4000 2600 Balance 1450 990 -2260 -1222 Weight 75.432 kg NAD MMM, No JVD RRR, NO M/R CTA soft NT/ND no bladder distension CBC, BMP 07/18/18 06:00 07/18/18 06:00 Current Medications Acetaminophen (Tylenol -) 650 mg PO Q6H PRN PRN Reason: FOR TEMP. OF 100 OR GREATER Last Admin: 07/17/18 05:39 Dose: 650 mg Finasteride (Proscar -) 5 mg PO DAILY [facility] Last Admin: 07/18/18 09:15 Dose: 5 mg Heparin Sodium (Porcine) (Heparin -) 5,000 unit SQ BID [facility] Last Admin: 07/18/18 09:15 Dose: 5,000 unit IV Flush (Carmela-Cath Flush) 10 ml IVPUSH PRN PRN PRN Reason: protocol; maintain patency Last Admin: 07/18/18 06:03 Dose: 10 ml Sodium Chloride (Normal Saline -) 1,000 mls @ 75 mls/hr IV ASDIR [facility] Last Admin: 07/17/18 18:30 Dose: 75 mls/hr Metformin HCl (Glucophage -) 1,000 mg PO BIDAC [facility] Last Admin: 07/17/18 16:55 Dose: 1,000 mg Metoprolol Succinate (Toprol Xl -) 100 mg PO DAILY [facility] Last Admin: 07/18/18 09:15 Dose: 100 mg Multivitamins/Minerals (Theragran-M) 1 each PO DAILY [facility] Last Admin: 07/18/18 09:15 Dose: 1 each Nifedipine (Procardia Xl -) 30 mg PO DAILY [facility] Last Admin: 07/18/18 09:15 Dose: 30 mg Tamsulosin HCl (Flomax -) 0.4 mg PO DAILY@0830 [facility] Last Admin: 07/18/18 09:15 Dose: 0.4 mg Zolpidem Tartrate (Ambien -) 5 mg PO HS PRN PRN Reason: INSOMNIA Last Admin: 07/17/18 23:00 Dose: 5 mg 78 year old gentleman with Hx of Metastatic breast ca s/p chemo, Hx of hydronephrosis (s/p stenting), DM, Hypertension, Cirrhosis who presented with urinary retention and KARTHIKEYAN. #KARTHIKEYAN secondary to bladder outlet obstruction + upper level obstruction at level of kidney #Metastatic bladder Ca #Metabolic acidosis #Anemia #DM Renal scan completed but read is pending, contacted radiology to have study read Cr not significantly improved s/p Galarza placement and likely has incomplete upper level obstruction maintain Galarza and IVF Trend renal function and electrolytes urology follow up for possible intervention (nephrostomy vs. stent replacement) Trend H/H d/c Metfomin, start insulin sliding scale Thank you Will follow Shalom Alarcon DO
--- NOTE | 2018-07-18 17:25 | PN ---
Physical Exam: SUBJECTIVE: Patient seen and examined at bedside. No overnight events. No new complaints. He is making urine. Denies CP,HAIDER, SOB, abdominal pain, nausea or vomiting. OBJECTIVE: Vital Signs Period Temp Pulse Resp BP Sys/Benjamin Pulse Ox Last 24 Hr 98.3 F-99.2 F 88-96 18-20 117-155/67-84 95-95 GENERAL: AAOx3, NAD EYES: PERRL, EOMI, sclera anicteric, conjunctiva clear. ENT: moist mucous membranes. LUNGS: CTAB, no wheezes, no crackles, no accessory muscle use. CHEST: mediport in place right chest . HEART: RRR, S1, S2 without murmur, rub or gallop. ABDOMEN: Soft, NTND, NABS, no guarding, no rebound, no hepatosplenomegaly, no masses. EXTREMITIES: 2+ pulses, warm, well-perfused, no edema. PSYCH: Normal mood, normal affect. SKIN: intact. Laboratory Results - last 24 hr 07/14/18 07/18/18 07/18/18 23:00 06:00 06:00 WBC 11.4 H RBC 3.68 L Hgb 8.2 L Hct 26.0 L MCV 70.6 L MCH 22.3 L MCHC 31.6 L RDW 22.5 H Plt Count 248 MPV 9.6 Absolute Neuts (auto) 9.3 H Neutrophils % 81.8 Lymphocytes % 8.0 D Monocytes % 6.2 Eosinophils % 3.6 Basophils % 0.4 Nucleated RBC % 0 Hypochromia 1+ Platelet Estimate Normal Polychromasia 0 Poikilocytosis 1+ Anisocytosis 1+ Microcytosis 1+ Macrocytosis 0 Target Cells 1+ Tear Drop Cells 1+ Schistocytes 1+ Sodium 137 Potassium 4.2 Chloride 106 Carbon Dioxide 18 L Anion Gap 14 BUN 50 H Creatinine 2.5 H Creat Clearance w eGFR 25.10 Random Glucose 101 Calcium 8.3 L Total Bilirubin 0.9 AST 40 H ALT 40 Alkaline Phosphatase 605 H Total Protein 6.4 Albumin 2.3 L Blood Type A POSITIVE Antibody Screen Negative Crossmatch See Detail Active Medications Generic Name Dose Route Start Last Admin Trade Name Freq PRN Reason Stop Dose Admin Acetaminophen 650 mg 07/15/18 04:16 07/17/18 05:39 Tylenol - PO 650 mg Q6H PRN Administration FOR TEMP. OF 100 OR GREATER Finasteride 5 mg 07/15/18 10:00 07/18/18 09:15 Proscar - PO 5 mg DAILY LIT Administration Heparin Sodium (Porcine) 5,000 unit 07/15/18 10:00 07/18/18 09:15 Heparin - SQ 5,000 unit BID LIT Administration IV Flush 10 ml 07/18/18 05:32 07/18/18 06:03 Carmela-Cath Flush IVPUSH 10 ml PRN PRN Administration protocol; maintain patency Sodium Chloride 1,000 mls @ 75 mls/hr 07/17/18 18:00 07/17/18 18:30 Normal Saline - IV 75 mls/hr ASDIR LIT Administration Insulin Aspart 1 vial 07/18/18 16:30 Novolog Vial Sliding Scale - SQ ACHS LIT Protocol Metoprolol Succinate 100 mg 07/15/18 10:00 07/18/18 09:15 Toprol Xl - PO 100 mg DAILY LIT Administration Multivitamins/Minerals 1 each 07/15/18 10:00 07/18/18 09:15 Theragran-M PO 1 each DAILY LIT Administration Nifedipine 30 mg 07/15/18 10:00 07/18/18 09:15 Procardia Xl - PO 30 mg DAILY LIT Administration Tamsulosin HCl 0.4 mg 07/15/18 08:30 07/18/18 09:15 Flomax - PO 0.4 mg DAILY@0830 LIT Administration Zolpidem Tartrate 5 mg 07/15/18 03:14 07/17/18 23:00 Ambien - PO 5 mg HS PRN Administration INSOMNIA ASSESSMENT/PLAN: Problem List - Problems (1) 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 Assessment/Plan: Metastatic Bladder CA (s/p C4 gemzar/carboplatin 06/22/18) , currently with port in place * chemotherapy on hold * Will await Urology and Nephrology recommendation as far as stent placement. (2) Acute on chronic renal failure Assessment/Plan: renal function inproving. * Bilateral Hydronephrosis seen on US * Bladder scan NM read pending. * Will await Urology recommendation in terms of nephrostomy vs. stent placement. (3) Sepsis Assessment/Plan: ESBL UTI as the cause. * continue IVF * Meropenem on hold to monitor for temperature. (4) UTI (urinary tract infection) (5) Anemia Assessment/Plan: secondary to chronic kidney disease * No further w/u at this time. Visit type - Emergency Visit Emergency Visit: Yes ED Registration Date: 07/14/18 Care time: The patient presented to the Emergency Department on the above date and was hospitalized for further evaluation of their emergent condition. - New Patient This patient is new to me today: Yes Date on this admission: 07/18/18 - Critical Care Critical Care patient: No
--- NOTE | 2018-07-18 17:35 | PN ---
Teaching Attending Note Name of Resident: Te Reyes ATTENDING PHYSICIAN STATEMENT I saw and evaluated the patient. I reviewed the resident's note and discussed the case with the resident. I agree with the resident's findings and plan as documented. SUBJECTIVE:Patient seen and examined Agree with plans as outlined. OBJECTIVE: ASSESSMENT AND PLAN:
[2018-07-18] MEDS: INSULIN SLIDING SCALE (NOVOLOG) 1 VIAL SQ SCH ×2 (17:56→22:25)
[2018-07-18] MEDS ORDERED: INSULIN (NOVOLOG) ASPART 100 UNITS/ML 10ML VIAL ONE (21:30)
[2018-07-18] MEDS: SODIUM CHLORIDE 1,000 ML IV SCH (22:26)
--- NOTE | 2018-07-18 22:34 | PN ---
Progress Note, Physician - Current Medication List Current Medications: Active Medications Acetaminophen (Tylenol -) 650 mg PO Q6H PRN PRN Reason: FOR TEMP. OF 100 OR GREATER Last Admin: 07/17/18 05:39 Dose: 650 mg Finasteride (Proscar -) 5 mg PO DAILY [facility] Last Admin: 07/18/18 09:15 Dose: 5 mg Heparin Sodium (Porcine) (Heparin -) 5,000 unit SQ BID LIT Last Admin: 07/18/18 22:24 Dose: 5,000 unit IV Flush (Carmela-Cath Flush) 10 ml IVPUSH PRN PRN PRN Reason: protocol; maintain patency Last Admin: 07/18/18 06:03 Dose: 10 ml Sodium Chloride (Normal Saline -) 1,000 mls @ 75 mls/hr IV ASDIR [facility] Last Admin: 07/18/18 22:26 Dose: 75 mls/hr Insulin Aspart (Novolog Vial Sliding Scale -) 1 vial SQ ACHS [facility]; Protocol Last Admin: 07/18/18 22:25 Dose: Not Given Metoprolol Succinate (Toprol Xl -) 100 mg PO DAILY [facility] Last Admin: 07/18/18 09:15 Dose: 100 mg Multivitamins/Minerals (Theragran-M) 1 each PO DAILY [facility] Last Admin: 07/18/18 09:15 Dose: 1 each Nifedipine (Procardia Xl -) 30 mg PO DAILY [facility] Last Admin: 07/18/18 09:15 Dose: 30 mg Tamsulosin HCl (Flomax -) 0.4 mg PO DAILY@0830 [facility] Last Admin: 07/18/18 09:15 Dose: 0.4 mg Zolpidem Tartrate (Ambien -) 5 mg PO HS PRN PRN Reason: INSOMNIA Last Admin: 07/17/18 23:00 Dose: 5 mg - Objective Vital Signs: Vital Signs Temperature 98.1 F 07/18/18 18:00 Pulse Rate 86 07/18/18 18:00 Respiratory Rate 20 07/18/18 20:32 Blood Pressure 123/81 07/18/18 18:00 O2 Sat by Pulse Oximetry (%) 95 07/18/18 20:32 Labs: CBC, BMP 07/18/18 06:00 07/18/18 06:00 INR, PTT INR 1.26 (0.83-1.09) H 07/14/18 21:35 Problem List - Problems (1) Acute on chronic renal failure Code(s): N17.9 - ACUTE KIDNEY FAILURE, UNSPECIFIED; N18.9 - CHRONIC KIDNEY DISEASE, UNSPECIFIED Qualifiers: Acute renal failure type: unspecified Chronic kidney disease stage: stage 3 (moderate) Qualified Code(s): N17.9 - Acute kidney failure, unspecified; N18.3 - Chronic kidney disease, stage 3 (moderate) (2) Anemia Code(s): D64.9 - ANEMIA, UNSPECIFIED Qualifiers: Anemia type: due to chronic kidney disease Chronic kidney disease stage: stage 3 (moderate) Qualified Code(s): N18.3 - Chronic kidney disease, stage 3 (moderate); D63.1 - Anemia in chronic kidney disease (3) 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 Code(s): C79.9 - SECONDARY MALIGNANT NEOPLASM OF UNSPECIFIED SITE; C67.9 - MALIGNANT NEOPLASM OF BLADDER, UNSPECIFIED (4) BPH (benign prostatic hyperplasia) Code(s): N40.0 - BENIGN PROSTATIC HYPERPLASIA WITHOUT LOWER URINRY TRACT SYMP (5) Diabetes Code(s): E11.9 - TYPE 2 DIABETES MELLITUS WITHOUT COMPLICATIONS (6) HLD (hyperlipidemia) Code(s): E78.5 - HYPERLIPIDEMIA, UNSPECIFIED (7) Hypertension Code(s): I10 - ESSENTIAL (PRIMARY) HYPERTENSION Qualifiers: Hypertension type: other secondary hypertension Qualified Code(s): I15.8 - Other secondary hypertension (8) Sepsis Code(s): A41.9 - SEPSIS, UNSPECIFIED ORGANISM Qualifiers: Sepsis type: sepsis due to unspecified organism Qualified Code(s): A41.9 - Sepsis, unspecified organism
[2018-07-19] MEDS: INSULIN SLIDING SCALE (NOVOLOG) 1 VIAL SQ SCH ×4 (06:15→21:50)
[2018-07-19 07:50] LABS: BASO % 0.9 % (0-2.0); EOS % 3.7 % (0-4.5); HEMATOCRIT 23.3 % (35.4-49); HEMOGLOBIN 7.5 GM/dL (11.7-16.9); LYMPH % 9.4 % (8-40); MCH 22.7 pg (25.7-33.7); MCHC 32.2 g/dl (32.0-35.9); MEAN CELL VOLUME 70.3 fl (80-96); MEAN PLT VOLUME 9.3 fl (7.5-11.1); MONO % 7.9 % (3.8-10.2); NEUT % 78.1 % (42.8-82.8); PLATELET COUNT 215 K/MM3 (134-434); RBC 3.32 M/mm3 (4.00-5.60); RDW 23.1 % (11.9-15.9); WHITE BLOOD COUNT 9.8 K/mm3 (4.0-10.0)
[2018-07-19 08:18] LABS: ALBUMIN 2.1 g/dl (3.4-5.0); ALK PHOS 496 U/L (45-117); ANION GAP 9 MMOL/L (8-16); BILIRUBIN,TOTAL 0.9 mg/dL (0.2-1); BLOOD UREA NITROGEN 53 mg/dL (7-18); CALCIUM 7.8 mg/dL (8.5-10.1); CHLORIDE 106 mmol/L (98-107); CO2 21 mmol/L (21-32); CREATININE 2.9 mg/dL (0.55-1.3); GLUCOSE,RANDOM 117 mg/dL (74-106); MAGNESIUM 1.9 mg/dL (1.8-2.4); PHOSPHOROUS 5.2 mg/dL (2.5-4.9); POTASSIUM 3.9 mmol/L (3.5-5.1); SGOT/AST 28 U/L (15-37); SGPT/ALT 32 U/L (13-61); SODIUM 136 mmol/L (136-145)
[2018-07-19] MEDS: SODIUM CHLORIDE 1,000 ML IV SCH ×2 (09:00→21:47)
[2018-07-19] MEDS: MULTIVITAMINS THER W-MINERALS COMBO TABLET (FP) PO SCH (10:40)
[2018-07-19] MEDS: TAMSULOSIN HCL 0.4 MG CAP PO SCH (10:40)
[2018-07-19] MEDS: HEPARIN NA (PORCINE) 5,000 UNITS/ML 1ML VIAL SQ SCH ×2 (10:40→21:47)
[2018-07-19] MEDS: NIFEdipine E.R. 30 MG TABLET (FP) PO SCH (10:40)
[2018-07-19] MEDS: FINASTERIDE 5 MG TABLET (FP) PO SCH (10:40)
--- NOTE | 2018-07-19 12:25 | PN ---
Progress Note, Physician History of Present Illness: stable no new issues - Current Medication List Current Medications: Active Medications Acetaminophen (Tylenol -) 650 mg PO Q6H PRN PRN Reason: FOR TEMP. OF 100 OR GREATER Last Admin: 07/17/18 05:39 Dose: 650 mg Finasteride (Proscar -) 5 mg PO DAILY [facility] Last Admin: 07/19/18 10:40 Dose: 5 mg Heparin Sodium (Porcine) (Heparin -) 5,000 unit SQ BID [facility] Last Admin: 07/19/18 10:40 Dose: 5,000 unit IV Flush (Carmela-Cath Flush) 10 ml IVPUSH PRN PRN PRN Reason: protocol; maintain patency Last Admin: 07/18/18 06:03 Dose: 10 ml Sodium Chloride (Normal Saline -) 1,000 mls @ 75 mls/hr IV ASDIR [facility] Last Admin: 07/19/18 09:00 Dose: 75 mls/hr Insulin Aspart (Novolog Vial Sliding Scale -) 1 vial SQ ACHS [facility]; Protocol Last Admin: 07/19/18 11:51 Dose: 2 units Metoprolol Succinate (Toprol Xl -) 100 mg PO DAILY [facility] Last Admin: 07/19/18 10:40 Dose: 100 mg Multivitamins/Minerals (Theragran-M) 1 each PO DAILY [facility] Last Admin: 07/19/18 10:40 Dose: 1 each Nifedipine (Procardia Xl -) 30 mg PO DAILY [facility] Last Admin: 07/19/18 10:40 Dose: 30 mg Tamsulosin HCl (Flomax -) 0.4 mg PO DAILY@0830 [facility] Last Admin: 07/19/18 10:40 Dose: 0.4 mg Zolpidem Tartrate (Ambien -) 5 mg PO HS PRN PRN Reason: INSOMNIA Last Admin: 07/17/18 23:00 Dose: 5 mg - Objective Vital Signs: Vital Signs Temperature 98.9 F 07/19/18 10:00 Pulse Rate 91 H 07/19/18 10:00 Respiratory Rate 20 07/19/18 10:00 Blood Pressure 119/89 07/19/18 10:00 O2 Sat by Pulse Oximetry (%) 95 07/18/18 20:32 Constitutional: Yes: No Distress, Calm Cardiovascular: Yes: Regular Rate and Rhythm Respiratory: Yes: Regular, CTA Bilaterally Gastrointestinal: Yes: Normal Bowel Sounds, Soft Genitourinary: Yes: Rahman Present Musculoskeletal: Yes: WNL Extremities: Yes: WNL Neurological: Yes: Alert, Oriented Psychiatric: Yes: Alert, Oriented Labs: CBC, BMP 07/19/18 06:30 07/19/18 06:30 INR, PTT INR 1.26 (0.83-1.09) H 07/14/18 21:35 Assessment/Plan Problem List - Problems (1) KARTHIKEYAN (acute kidney injury) Code(s): N17.9 - ACUTE KIDNEY FAILURE, UNSPECIFIED (2) Anemia Code(s): D64.9 - ANEMIA, UNSPECIFIED (3) Lactic acidosis Code(s): E87.2 - ACIDOSIS (4) 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 Code(s): C79.9 - SECONDARY MALIGNANT NEOPLASM OF UNSPECIFIED SITE; C67.9 - MALIGNANT NEOPLASM OF BLADDER, UNSPECIFIED (5) BPH (benign prostatic hyperplasia) Code(s): N40.0 - BENIGN PROSTATIC HYPERPLASIA WITHOUT LOWER URINRY TRACT SYMP (6) Diabetes Code(s): E11.9 - TYPE 2 DIABETES MELLITUS WITHOUT COMPLICATIONS (7) Fever Code(s): R50.9 - FEVER, UNSPECIFIED Qualifiers: Fever type: unspecified Qualified Code(s): R50.9 - Fever, unspecified (8) HLD (hyperlipidemia) Code(s): E78.5 - HYPERLIPIDEMIA, UNSPECIFIED (9) Hypertension Code(s): I10 - ESSENTIAL (PRIMARY) HYPERTENSION Qualifiers: Hypertension type: other secondary hypertension Qualified Code(s): I15.8 - Other secondary hypertension (10) Sepsis Code(s): A41.9 - SEPSIS, UNSPECIFIED ORGANISM Qualifiers: Sepsis type: sepsis due to unspecified organism Qualified Code(s): A41.9 - Sepsis, unspecified organism (11) UTI (urinary tract infection) Code(s): N39.0 - URINARY TRACT INFECTION, SITE NOT SPECIFIED Assessment/Plan This is a 78 y.o. male with PMH of Metastatic Bladder CA (s/p chemotherapy over 3 wks ago) , currently with port in place, s/p urinary stent removal prior to last admission , DM, HTN, urinary retention s/p stent/rahman removal, s/p recent treatment for Sepsis due to ESBL + Klebsiella UTI/Bacteremia , and s/p TURP presenting with fever/weakness Sepsis b/l hydronephrosis Obstructive uropathy Met Bladder CA KARTHIKEYAN Urinary retention s/p TURP s/p UTI/Bacteremia DM all cx reports noted plan stable off of abx continue current mgmt rest as per the team patient improving
--- NOTE | 2018-07-19 13:18 | PN ---
Progress Note (short form) - Note Progress Note: Renal Follow up for KARTHIKEYAN Pt seen and examined at the bedside no acute complaints making urine Vital Signs Temperature 98.9 F 07/19/18 10:00 Pulse Rate 91 H 07/19/18 10:00 Respiratory Rate 20 07/19/18 10:00 Blood Pressure 119/89 07/19/18 10:00 O2 Sat by Pulse Oximetry (%) 95 07/18/18 20:32 Intake & Output 07/16/18 07/17/18 07/18/18 07/19/18 23:59 23:59 23:59 23:59 Intake Total 2740 1740 2378 1150 Output Total 1750 4000 4000 700 Balance 990 -0153 -0272 450 Weight 75.432 kg NAD MMM, No JVD RRR, NO M/R CTA soft NT/ND no bladder distension CBC, BMP 07/19/18 06:30 07/19/18 06:30 Current Medications Acetaminophen (Tylenol -) 650 mg PO Q6H PRN PRN Reason: FOR TEMP. OF 100 OR GREATER Last Admin: 07/17/18 05:39 Dose: 650 mg Finasteride (Proscar -) 5 mg PO DAILY [facility] Last Admin: 07/19/18 10:40 Dose: 5 mg Heparin Sodium (Porcine) (Heparin -) 5,000 unit SQ BID LIT Last Admin: 07/19/18 10:40 Dose: 5,000 unit IV Flush (Carmela-Cath Flush) 10 ml IVPUSH PRN PRN PRN Reason: protocol; maintain patency Last Admin: 07/18/18 06:03 Dose: 10 ml Sodium Chloride (Normal Saline -) 1,000 mls @ 75 mls/hr IV ASDIR [facility] Last Admin: 07/19/18 09:00 Dose: 75 mls/hr Insulin Aspart (Novolog Vial Sliding Scale -) 1 vial SQ ACHS LIT; Protocol Last Admin: 07/19/18 11:51 Dose: 2 units Metoprolol Succinate (Toprol Xl -) 100 mg PO DAILY [facility] Last Admin: 07/19/18 10:40 Dose: 100 mg Multivitamins/Minerals (Theragran-M) 1 each PO DAILY [facility] Last Admin: 07/19/18 10:40 Dose: 1 each Nifedipine (Procardia Xl -) 30 mg PO DAILY [facility] Last Admin: 07/19/18 10:40 Dose: 30 mg Tamsulosin HCl (Flomax -) 0.4 mg PO DAILY@0830 LIT Last Admin: 07/19/18 10:40 Dose: 0.4 mg Zolpidem Tartrate (Ambien -) 5 mg PO HS PRN PRN Reason: INSOMNIA Last Admin: 07/17/18 23:00 Dose: 5 mg 78 year old gentleman with Hx of Metastatic breast ca s/p chemo, Hx of hydronephrosis (s/p stenting), DM, Hypertension, Cirrhosis who presented with urinary retention and KARTHIKEYAN. #KARTHIKEYAN secondary to bladder outlet obstruction + upper level obstruction at level of kidney #Metastatic bladder Ca #Metabolic acidosis #Anemia #DM Renal scan consistent with obstruction discussed case withi Dr. Tripp (covering Dr. Delgadillo), who will plan for stent exchange Renal function not improved, BUN/Cr remains high no indication for SAND FILLER continue gentle IVF Trend renal function and electrolytes Shalom Alarcon DO
[2018-07-19] MEDS ORDERED: INSULIN (LEVEMIR) 100 UNITS/ML UNITS SQ ONE (18:53)
[2018-07-19] MEDS ORDERED: INSULIN (NOVOLOG) ASPART 100 UNITS/ML 10ML VIAL ONE (18:54)
--- NOTE | 2018-07-19 19:15 | PN ---
Progress Note (short form) - Note Progress Note: Patient seen and examined No specific complaints Last Vital Signs Temp Pulse Resp BP Pulse Ox 98.9 F 98 H 20 140/75 95 07/19/18 18:00 07/19/18 18:00 07/19/18 18:00 07/19/18 18:00 07/19/18 09:00 HEENT: FLETCHER, EOM Intact Oropharynx: No thrush, No mucositis Cor: RSR, No murmurs, No gallops Lungs: Clear to P&A Abd: Soft, Normal bowel sounds, No organomegaly Ext:No significant edema Skin: No rashes, Integument intact Galarza catheter CBC, BMP 07/19/18 06:30 07/19/18 06:30 Current Medications Generic Name Dose Route Start Last Admin Trade Name Freq PRN Reason Stop Dose Admin Acetaminophen 650 mg 07/15/18 04:16 07/17/18 05:39 Tylenol - PO 650 mg Q6H PRN Administration FOR TEMP. OF 100 OR GREATER Finasteride 5 mg 07/15/18 10:00 07/19/18 10:40 Proscar - PO 5 mg DAILY LIT Administration Heparin Sodium (Porcine) 5,000 unit 07/15/18 10:00 07/19/18 10:40 Heparin - SQ 5,000 unit BID LIT Administration IV Flush 10 ml 07/18/18 05:32 07/18/18 06:03 Carmela-Cath Flush IVPUSH 10 ml PRN PRN Administration protocol; maintain patency Sodium Chloride 1,000 mls @ 75 mls/hr 07/17/18 18:00 07/19/18 09:00 Normal Saline - IV 75 mls/hr ASDIR LIT Administration Insulin Aspart 1 vial 07/18/18 16:30 07/19/18 16:57 Novolog Vial Sliding Scale - SQ 2 units ACHS LIT Administration Protocol Metoprolol Succinate 100 mg 07/15/18 10:00 07/19/18 10:40 Toprol Xl - PO 100 mg DAILY LIT Administration Multivitamins/Minerals 1 each 07/15/18 10:00 07/19/18 10:40 Theragran-M PO 1 each DAILY LIT Administration Nifedipine 30 mg 07/15/18 10:00 07/19/18 10:40 Procardia Xl - PO 30 mg DAILY LIT Administration Tamsulosin HCl 0.4 mg 07/15/18 08:30 07/19/18 10:40 Flomax - PO 0.4 mg DAILY@0830 LIT Administration Zolpidem Tartrate 5 mg 07/15/18 03:14 07/17/18 23:00 Ambien - PO 5 mg HS PRN Administration INSOMNIA INR, PTT INR 1.26 (0.83-1.09) H 07/14/18 21:35 Impression: For stent exchange in AM Metastatic bladder ca s/p chemotherapy on hold Anemia- stable Hct - may need transfusion in future in anticipation of chemotherapy Hold heparin prior to stent change.
--- NOTE | 2018-07-19 20:31 | PN ---
Progress Note, Physician - Current Medication List Current Medications: Active Medications Acetaminophen (Tylenol -) 650 mg PO Q6H PRN PRN Reason: FOR TEMP. OF 100 OR GREATER Last Admin: 07/17/18 05:39 Dose: 650 mg Finasteride (Proscar -) 5 mg PO DAILY [facility] Last Admin: 07/19/18 10:40 Dose: 5 mg Heparin Sodium (Porcine) (Heparin -) 5,000 unit SQ BID LIT Last Admin: 07/19/18 10:40 Dose: 5,000 unit IV Flush (Carmela-Cath Flush) 10 ml IVPUSH PRN PRN PRN Reason: protocol; maintain patency Last Admin: 07/18/18 06:03 Dose: 10 ml Sodium Chloride (Normal Saline -) 1,000 mls @ 75 mls/hr IV ASDIR [facility] Last Admin: 07/19/18 09:00 Dose: 75 mls/hr Insulin Aspart (Novolog Vial Sliding Scale -) 1 vial SQ ACHS [facility]; Protocol Last Admin: 07/19/18 16:57 Dose: 2 units Metoprolol Succinate (Toprol Xl -) 100 mg PO DAILY [facility] Last Admin: 07/19/18 10:40 Dose: 100 mg Multivitamins/Minerals (Theragran-M) 1 each PO DAILY [facility] Last Admin: 07/19/18 10:40 Dose: 1 each Nifedipine (Procardia Xl -) 30 mg PO DAILY [facility] Last Admin: 07/19/18 10:40 Dose: 30 mg Tamsulosin HCl (Flomax -) 0.4 mg PO DAILY@0830 [facility] Last Admin: 07/19/18 10:40 Dose: 0.4 mg Zolpidem Tartrate (Ambien -) 5 mg PO HS PRN PRN Reason: INSOMNIA Last Admin: 07/17/18 23:00 Dose: 5 mg - Objective Vital Signs: Vital Signs Temperature 98.9 F 07/19/18 18:00 Pulse Rate 98 H 07/19/18 18:00 Respiratory Rate 20 07/19/18 18:00 Blood Pressure 140/75 07/19/18 18:00 O2 Sat by Pulse Oximetry (%) 95 07/19/18 09:00 Labs: CBC, BMP 07/19/18 06:30 07/19/18 06:30 INR, PTT INR 1.26 (0.83-1.09) H 07/14/18 21:35 Problem List - Problems (1) Acute on chronic renal failure Code(s): N17.9 - ACUTE KIDNEY FAILURE, UNSPECIFIED; N18.9 - CHRONIC KIDNEY DISEASE, UNSPECIFIED Qualifiers: Acute renal failure type: unspecified Chronic kidney disease stage: stage 3 (moderate) Qualified Code(s): N17.9 - Acute kidney failure, unspecified; N18.3 - Chronic kidney disease, stage 3 (moderate) (2) Anemia Code(s): D64.9 - ANEMIA, UNSPECIFIED Qualifiers: Anemia type: due to chronic kidney disease Chronic kidney disease stage: stage 3 (moderate) Qualified Code(s): N18.3 - Chronic kidney disease, stage 3 (moderate); D63.1 - Anemia in chronic kidney disease (3) 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 Code(s): C79.9 - SECONDARY MALIGNANT NEOPLASM OF UNSPECIFIED SITE; C67.9 - MALIGNANT NEOPLASM OF BLADDER, UNSPECIFIED (4) BPH (benign prostatic hyperplasia) Code(s): N40.0 - BENIGN PROSTATIC HYPERPLASIA WITHOUT LOWER URINRY TRACT SYMP (5) Diabetes Code(s): E11.9 - TYPE 2 DIABETES MELLITUS WITHOUT COMPLICATIONS (6) HLD (hyperlipidemia) Code(s): E78.5 - HYPERLIPIDEMIA, UNSPECIFIED (7) Hypertension Code(s): I10 - ESSENTIAL (PRIMARY) HYPERTENSION Qualifiers: Hypertension type: other secondary hypertension Qualified Code(s): I15.8 - Other secondary hypertension (8) Sepsis Code(s): A41.9 - SEPSIS, UNSPECIFIED ORGANISM Qualifiers: Sepsis type: sepsis due to unspecified organism Qualified Code(s): A41.9 - Sepsis, unspecified organism
[2018-07-19] MEDS: ZOLPIDEM TARTRATE 5 MG TABLET PO PRN (23:31)
[2018-07-20] MEDS: INSULIN SLIDING SCALE (NOVOLOG) 1 VIAL SQ SCH ×4 (06:21→21:44)
[2018-07-20 07:37] LABS: BASO % 0.7 % (0-2.0); EOS % 3.9 % (0-4.5); HEMATOCRIT 22.5 % (35.4-49); HEMOGLOBIN 7.3 GM/dL (11.7-16.9); LYMPH % 8.9 % (8-40); MCH 22.5 pg (25.7-33.7); MCHC 32.2 g/dl (32.0-35.9); MEAN CELL VOLUME 69.9 fl (80-96); MEAN PLT VOLUME 9.5 fl (7.5-11.1); MONO % 7.3 % (3.8-10.2); NEUT % 79.2 % (42.8-82.8); PLATELET COUNT 224 K/MM3 (134-434); RBC 3.22 M/mm3 (4.00-5.60); RDW 23.6 % (11.9-15.9); WHITE BLOOD COUNT 9.7 K/mm3 (4.0-10.0)
[2018-07-20 08:10] LABS: ANION GAP 11 MMOL/L (8-16); BLOOD UREA NITROGEN 51 mg/dL (7-18); CALCIUM 7.9 mg/dL (8.5-10.1); CHLORIDE 114 mmol/L (98-107); CO2 18 mmol/L (21-32); CREATININE 2.6 mg/dL (0.55-1.3); GLUCOSE,RANDOM 110 mg/dL (74-106); MAGNESIUM 1.9 mg/dL (1.8-2.4); PHOSPHOROUS 5.4 mg/dL (2.5-4.9); POTASSIUM 3.9 mmol/L (3.5-5.1); SODIUM 142 mmol/L (136-145)
[2018-07-20] MEDS: SODIUM CHLORIDE 1,000 ML IV SCH ×2 (08:43→21:40)
[2018-07-20] MEDS: TAMSULOSIN HCL 0.4 MG CAP PO SCH (08:44)
[2018-07-20] MEDS: NIFEdipine E.R. 30 MG TABLET (FP) PO SCH (10:00)
[2018-07-20] MEDS: FINASTERIDE 5 MG TABLET (FP) PO SCH (10:00)
[2018-07-20] MEDS: MULTIVITAMINS THER W-MINERALS COMBO TABLET (FP) PO SCH (10:00)
[2018-07-20] MEDS: HEPARIN NA (PORCINE) 5,000 UNITS/ML 1ML VIAL SQ SCH ×2 (11:27→21:40)
--- NOTE | 2018-07-20 13:48 | PN ---
Progress Note, Physician History of Present Illness: stable no new issues - Current Medication List Current Medications: Active Medications Acetaminophen (Tylenol -) 650 mg PO Q6H PRN PRN Reason: FOR TEMP. OF 100 OR GREATER Last Admin: 07/17/18 05:39 Dose: 650 mg Finasteride (Proscar -) 5 mg PO DAILY [facility] Last Admin: 07/20/18 10:00 Dose: 5 mg Heparin Sodium (Porcine) (Heparin -) 5,000 unit SQ BID [facility] Last Admin: 07/20/18 11:27 Dose: Not Given IV Flush (Carmela-Cath Flush) 10 ml IVPUSH PRN PRN PRN Reason: protocol; maintain patency Last Admin: 07/18/18 06:03 Dose: 10 ml Sodium Chloride (Normal Saline -) 1,000 mls @ 75 mls/hr IV ASDIR [facility] Last Admin: 07/20/18 08:43 Dose: 75 mls/hr Insulin Aspart (Novolog Vial Sliding Scale -) 1 vial SQ ACHS [facility]; Protocol Last Admin: 07/20/18 06:21 Dose: Not Given Metoprolol Succinate (Toprol Xl -) 100 mg PO DAILY [facility] Last Admin: 07/20/18 10:00 Dose: 100 mg Multivitamins/Minerals (Theragran-M) 1 each PO DAILY [facility] Last Admin: 07/20/18 10:00 Dose: 1 each Nifedipine (Procardia Xl -) 30 mg PO DAILY [facility] Last Admin: 07/20/18 10:00 Dose: 30 mg Tamsulosin HCl (Flomax -) 0.4 mg PO DAILY@0830 [facility] Last Admin: 07/20/18 08:44 Dose: 0.4 mg Zolpidem Tartrate (Ambien -) 5 mg PO HS PRN PRN Reason: INSOMNIA Last Admin: 07/19/18 23:31 Dose: 5 mg - Objective Vital Signs: Vital Signs Temperature 98.2 F 07/20/18 09:59 Pulse Rate 82 07/20/18 09:59 Respiratory Rate 18 07/20/18 09:59 Blood Pressure 135/83 07/20/18 09:59 O2 Sat by Pulse Oximetry (%) 98 07/20/18 09:00 Constitutional: Yes: No Distress, Calm Cardiovascular: Yes: Regular Rate and Rhythm Respiratory: Yes: Regular, CTA Bilaterally Gastrointestinal: Yes: Normal Bowel Sounds, Soft Musculoskeletal: Yes: WNL Extremities: Yes: WNL Neurological: Yes: Alert, Oriented Psychiatric: Yes: Alert, Oriented Labs: CBC, BMP 07/20/18 06:30 07/20/18 06:30 INR, PTT INR 1.26 (0.83-1.09) H 07/14/18 21:35 Assessment/Plan Problem List - Problems (1) KARTHIKEYAN (acute kidney injury) Code(s): N17.9 - ACUTE KIDNEY FAILURE, UNSPECIFIED (2) Anemia Code(s): D64.9 - ANEMIA, UNSPECIFIED (3) Lactic acidosis Code(s): E87.2 - ACIDOSIS (4) 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 Code(s): C79.9 - SECONDARY MALIGNANT NEOPLASM OF UNSPECIFIED SITE; C67.9 - MALIGNANT NEOPLASM OF BLADDER, UNSPECIFIED (5) BPH (benign prostatic hyperplasia) Code(s): N40.0 - BENIGN PROSTATIC HYPERPLASIA WITHOUT LOWER URINRY TRACT SYMP (6) Diabetes Code(s): E11.9 - TYPE 2 DIABETES MELLITUS WITHOUT COMPLICATIONS (7) Fever Code(s): R50.9 - FEVER, UNSPECIFIED Qualifiers: Fever type: unspecified Qualified Code(s): R50.9 - Fever, unspecified (8) HLD (hyperlipidemia) Code(s): E78.5 - HYPERLIPIDEMIA, UNSPECIFIED (9) Hypertension Code(s): I10 - ESSENTIAL (PRIMARY) HYPERTENSION Qualifiers: Hypertension type: other secondary hypertension Qualified Code(s): I15.8 - Other secondary hypertension (10) Sepsis Code(s): A41.9 - SEPSIS, UNSPECIFIED ORGANISM Qualifiers: Sepsis type: sepsis due to unspecified organism Qualified Code(s): A41.9 - Sepsis, unspecified organism (11) UTI (urinary tract infection) Code(s): N39.0 - URINARY TRACT INFECTION, SITE NOT SPECIFIED Assessment/Plan This is a 78 y.o. male with PMH of Metastatic Bladder CA (s/p chemotherapy over 3 wks ago) , currently with port in place, s/p urinary stent removal prior to last admission , DM, HTN, urinary retention s/p stent/rahman removal, s/p recent treatment for Sepsis due to ESBL + Klebsiella UTI/Bacteremia , and s/p TURP presenting with fever/weakness Sepsis b/l hydronephrosis Obstructive uropathy Met Bladder CA KARTHIKEYAN Urinary retention s/p TURP s/p UTI/Bacteremia DM all cx reports noted plan stable off of abx continue current mgmt rest as per the team patient improving
--- NOTE | 2018-07-20 14:39 | PN ---
Progress Note (short form) - Note Progress Note: Renal Follow up for KARTHIKEYAN Pt seen and examined at the bedside no acute complaints no sob, cp, abd pain making urine via rahman Vital Signs Temperature 98.2 F 07/20/18 09:59 Pulse Rate 82 07/20/18 09:59 Respiratory Rate 18 07/20/18 09:59 Blood Pressure 135/83 07/20/18 09:59 O2 Sat by Pulse Oximetry (%) 98 07/20/18 09:00 Intake & Output 07/17/18 07/18/18 07/19/18 07/20/18 23:59 23:59 23:59 23:59 Intake Total 1740 2378 2350 1200 Output Total 4000 4000 2400 3300 Balance -0086 -1622 -50 -2100 Weight 75.296 kg NAD MMM, No JVD RRR, NO M/R CTA soft NT/ND no bladder distension CBC, BMP 07/20/18 06:30 07/20/18 06:30 Current Medications Acetaminophen (Tylenol -) 650 mg PO Q6H PRN PRN Reason: FOR TEMP. OF 100 OR GREATER Last Admin: 07/17/18 05:39 Dose: 650 mg Finasteride (Proscar -) 5 mg PO DAILY [facility] Last Admin: 07/20/18 10:00 Dose: 5 mg Heparin Sodium (Porcine) (Heparin -) 5,000 unit SQ BID [facility] Last Admin: 07/20/18 11:27 Dose: Not Given IV Flush (Carmela-Cath Flush) 10 ml IVPUSH PRN PRN PRN Reason: protocol; maintain patency Last Admin: 07/18/18 06:03 Dose: 10 ml Sodium Chloride (Normal Saline -) 1,000 mls @ 75 mls/hr IV ASDIR [facility] Last Admin: 07/20/18 08:43 Dose: 75 mls/hr Insulin Aspart (Novolog Vial Sliding Scale -) 1 vial SQ ACHS [facility]; Protocol Last Admin: 07/20/18 06:21 Dose: Not Given Metoprolol Succinate (Toprol Xl -) 100 mg PO DAILY [facility] Last Admin: 07/20/18 10:00 Dose: 100 mg Multivitamins/Minerals (Theragran-M) 1 each PO DAILY [facility] Last Admin: 07/20/18 10:00 Dose: 1 each Nifedipine (Procardia Xl -) 30 mg PO DAILY [facility] Last Admin: 07/20/18 10:00 Dose: 30 mg Tamsulosin HCl (Flomax -) 0.4 mg PO DAILY@0830 [facility] Last Admin: 07/20/18 08:44 Dose: 0.4 mg Zolpidem Tartrate (Ambien -) 5 mg PO HS PRN PRN Reason: INSOMNIA Last Admin: 07/19/18 23:31 Dose: 5 mg 78 year old gentleman with Hx of Metastatic breast ca s/p chemo, Hx of hydronephrosis (s/p stenting), DM, Hypertension, Cirrhosis who presented with urinary retention and KARTHIKEYAN. #KARTHIKEYAN secondary to bladder outlet obstruction + upper level obstruction at level of kidney #Metastatic bladder Ca #Metabolic acidosis #Anemia #DM Renal scan consistent with obstruction for stent exchange tomorrow continue gentle IVF for now trend renal function and electrolytes Trend H/H, give KARTHIKEYAN unclear if ALEKSANDRA would be benifical, transfuse as per protocol Shalom Alarcon DO
--- NOTE | 2018-07-20 20:05 | PN ---
Progress Note, Physician - Current Medication List Current Medications: Active Medications Acetaminophen (Tylenol -) 650 mg PO Q6H PRN PRN Reason: FOR TEMP. OF 100 OR GREATER Last Admin: 07/17/18 05:39 Dose: 650 mg Finasteride (Proscar -) 5 mg PO DAILY [facility] Last Admin: 07/20/18 10:00 Dose: 5 mg Heparin Sodium (Porcine) (Heparin -) 5,000 unit SQ BID [facility] Last Admin: 07/20/18 11:27 Dose: Not Given IV Flush (Carmela-Cath Flush) 10 ml IVPUSH PRN PRN PRN Reason: protocol; maintain patency Last Admin: 07/18/18 06:03 Dose: 10 ml Sodium Chloride (Normal Saline -) 1,000 mls @ 75 mls/hr IV ASDIR [facility] Last Admin: 07/20/18 08:43 Dose: 75 mls/hr Insulin Aspart (Novolog Vial Sliding Scale -) 1 vial SQ ACHS [facility]; Protocol Last Admin: 07/20/18 16:52 Dose: 2 units Metoprolol Succinate (Toprol Xl -) 100 mg PO DAILY [facility] Last Admin: 07/20/18 10:00 Dose: 100 mg Multivitamins/Minerals (Theragran-M) 1 each PO DAILY [facility] Last Admin: 07/20/18 10:00 Dose: 1 each Nifedipine (Procardia Xl -) 30 mg PO DAILY [facility] Last Admin: 07/20/18 10:00 Dose: 30 mg Tamsulosin HCl (Flomax -) 0.4 mg PO DAILY@0830 [facility] Last Admin: 07/20/18 08:44 Dose: 0.4 mg Zolpidem Tartrate (Ambien -) 5 mg PO HS PRN PRN Reason: INSOMNIA Last Admin: 07/19/18 23:31 Dose: 5 mg - Objective Vital Signs: Vital Signs Temperature 97.8 F 07/20/18 18:00 Pulse Rate 72 07/20/18 18:00 Respiratory Rate 18 07/20/18 18:00 Blood Pressure 123/68 07/20/18 18:00 O2 Sat by Pulse Oximetry (%) 98 07/20/18 09:00 Labs: CBC, BMP 07/20/18 06:30 07/20/18 06:30 INR, PTT INR 1.26 (0.83-1.09) H 07/14/18 21:35 Problem List - Problems (1) Acute on chronic renal failure Code(s): N17.9 - ACUTE KIDNEY FAILURE, UNSPECIFIED; N18.9 - CHRONIC KIDNEY DISEASE, UNSPECIFIED Qualifiers: Acute renal failure type: unspecified Chronic kidney disease stage: stage 3 (moderate) Qualified Code(s): N17.9 - Acute kidney failure, unspecified; N18.3 - Chronic kidney disease, stage 3 (moderate) (2) Anemia Code(s): D64.9 - ANEMIA, UNSPECIFIED Qualifiers: Anemia type: due to chronic kidney disease Chronic kidney disease stage: stage 3 (moderate) Qualified Code(s): N18.3 - Chronic kidney disease, stage 3 (moderate); D63.1 - Anemia in chronic kidney disease (3) 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 Code(s): C79.9 - SECONDARY MALIGNANT NEOPLASM OF UNSPECIFIED SITE; C67.9 - MALIGNANT NEOPLASM OF BLADDER, UNSPECIFIED (4) BPH (benign prostatic hyperplasia) Code(s): N40.0 - BENIGN PROSTATIC HYPERPLASIA WITHOUT LOWER URINRY TRACT SYMP (5) Diabetes Code(s): E11.9 - TYPE 2 DIABETES MELLITUS WITHOUT COMPLICATIONS (6) HLD (hyperlipidemia) Code(s): E78.5 - HYPERLIPIDEMIA, UNSPECIFIED (7) Hypertension Code(s): I10 - ESSENTIAL (PRIMARY) HYPERTENSION Qualifiers: Hypertension type: other secondary hypertension Qualified Code(s): I15.8 - Other secondary hypertension (8) Sepsis Code(s): A41.9 - SEPSIS, UNSPECIFIED ORGANISM Qualifiers: Sepsis type: sepsis due to unspecified organism Qualified Code(s): A41.9 - Sepsis, unspecified organism
[2018-07-20] MEDS: ACETAMINOPHEN 325 MG TABLET (FP) PO PRN (20:06)
--- NOTE | 2018-07-20 23:45 | PN ---
Progress Note (short form) - Note Progress Note: PAtient seen and examined Feels bloated No SOB AFVSS Cor: RSR, No murmurs, No gallops Lungs: decreased at bases Abd: Soft, Normal bowel sounds, No organomegaly Ext:No significant edema Labs/Meds reviewed A/P This is a 78 y.o. male with PMH of Metastatic Bladder CA (s/p C4 gemzar/ carboplatin 06/22/18) , currently with port in place, s/p urinary stent removal06/21 , s/p floley removal on 07/10/18 , DM, HTN, urinary retention s/p stent/ rahman removal, s/p recent treatment for Sepsis due to ESBL + Klebsiella UTI/ Bacteremia , and s/p TURP presenting with fever/weakness Also with acute renal failure, new since 07/05/18 Obstructive uropathy/acute renal failure for stent exchange 07/21 Anemia of chronic kidney disease transfuse as necessary Chemotherapy on hold
[2018-07-20] MEDS ORDERED: SODIUM CHLORIDE 1,000 ML IV SCH (23:59)
[2018-07-21] MEDS: ACETAMINOPHEN 325 MG TABLET (FP) PO PRN ×2 (01:14→21:03)
[2018-07-21] MEDS ORDERED: IBUPROFEN 400 MG TABLET (FP) PO ONE (03:15)
[2018-07-21] MEDS: INSULIN SLIDING SCALE (NOVOLOG) 1 VIAL SQ SCH ×4 (06:24→21:08)
[2018-07-21] MEDS: TAMSULOSIN HCL 0.4 MG CAP PO SCH (08:01)
[2018-07-21 08:20] LABS: BASO % 0.3 % (0-2.0); EOS % 0.7 % (0-4.5); HEMATOCRIT 20.9 % (35.4-49); LYMPH % 6.5 % (8-40); MCH 22.1 pg (25.7-33.7); MCHC 31.3 g/dl (32.0-35.9); MEAN CELL VOLUME 70.6 fl (80-96); MEAN PLT VOLUME 9.4 fl (7.5-11.1); MONO % 5.5 % (3.8-10.2); PLATELET COUNT 204 K/MM3 (134-434); RBC 2.96 M/mm3 (4.00-5.60); RDW 23.7 % (11.9-15.9); WHITE BLOOD COUNT 15.4 K/mm3 (4.0-10.0)
[2018-07-21 08:30] LABS: ALK PHOS 532 U/L (45-117); ANION GAP 11 MMOL/L (8-16); BILIRUBIN,TOTAL 1.2 mg/dL (0.2-1); BLOOD UREA NITROGEN 49 mg/dL (7-18); CALCIUM 7.6 mg/dL (8.5-10.1); CHLORIDE 110 mmol/L (98-107); CO2 18 mmol/L (21-32); CREATININE 2.4 mg/dL (0.55-1.3); GLUCOSE,RANDOM 114 mg/dL (74-106); POTASSIUM 3.7 mmol/L (3.5-5.1); SGOT/AST 35 U/L (15-37); SGPT/ALT 36 U/L (13-61); SODIUM 140 mmol/L (136-145); TOT PROT 5.8 g/dl (6.4-8.2)
[2018-07-21 08:40] LABS: HEMOGLOBIN 6.5 GM/dL (11.7-16.9)
--- NOTE | 2018-07-21 09:25 | PN ---
Progress Note, Physician History of Present Illness: doing well patient going for stenting no complaints - Current Medication List Current Medications: Active Medications Acetaminophen (Tylenol -) 650 mg PO Q6H PRN PRN Reason: FOR TEMP. OF 100 OR GREATER Last Admin: 07/21/18 01:14 Dose: 650 mg Ertapenem (Invanz -) 1 gm IM ONCE ONE; Protocol Stop: 07/21/18 09:24 Finasteride (Proscar -) 5 mg PO DAILY [facility] Last Admin: 07/20/18 10:00 Dose: 5 mg Heparin Sodium (Porcine) (Heparin -) 5,000 unit SQ BID [facility] Last Admin: 07/20/18 21:40 Dose: Not Given IV Flush (Carmela-Cath Flush) 10 ml IVPUSH PRN PRN PRN Reason: protocol; maintain patency Last Admin: 07/18/18 06:03 Dose: 10 ml Sodium Chloride (Normal Saline -) 1,000 mls @ 30 mls/hr IV ASDIR [facility] Last Admin: 07/21/18 01:17 Dose: 30 mls/hr Insulin Aspart (Novolog Vial Sliding Scale -) 1 vial SQ ACHS [facility]; Protocol Last Admin: 07/21/18 06:24 Dose: Not Given Metoprolol Succinate (Toprol Xl -) 100 mg PO DAILY [facility] Last Admin: 07/20/18 10:00 Dose: 100 mg Multivitamins/Minerals (Theragran-M) 1 each PO DAILY [facility] Last Admin: 07/20/18 10:00 Dose: 1 each Nifedipine (Procardia Xl -) 30 mg PO DAILY [facility] Last Admin: 07/20/18 10:00 Dose: 30 mg Tamsulosin HCl (Flomax -) 0.4 mg PO DAILY@0830 [facility] Last Admin: 07/21/18 08:01 Dose: Not Given - Objective Vital Signs: Vital Signs Temperature 98.5 F 07/21/18 05:55 Pulse Rate 80 07/21/18 05:55 Respiratory Rate 18 07/21/18 05:55 Blood Pressure 122/79 07/21/18 05:55 O2 Sat by Pulse Oximetry (%) 97 07/20/18 21:00 Constitutional: Yes: No Distress, Calm Cardiovascular: Yes: Regular Rate and Rhythm Respiratory: Yes: Regular, CTA Bilaterally Gastrointestinal: Yes: Normal Bowel Sounds, Soft Genitourinary: Yes: Rahman Present Musculoskeletal: Yes: WNL Extremities: Yes: WNL Neurological: Yes: Alert, Oriented Psychiatric: Yes: Alert, Oriented Labs: CBC, BMP 07/21/18 06:35 07/21/18 06:35 INR, PTT INR 1.26 (0.83-1.09) H 07/14/18 21:35 Assessment/Plan Problem List - Problems (1) KARTHIKEYAN (acute kidney injury) Code(s): N17.9 - ACUTE KIDNEY FAILURE, UNSPECIFIED (2) Anemia Code(s): D64.9 - ANEMIA, UNSPECIFIED (3) Lactic acidosis Code(s): E87.2 - ACIDOSIS (4) 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 Code(s): C79.9 - SECONDARY MALIGNANT NEOPLASM OF UNSPECIFIED SITE; C67.9 - MALIGNANT NEOPLASM OF BLADDER, UNSPECIFIED (5) BPH (benign prostatic hyperplasia) Code(s): N40.0 - BENIGN PROSTATIC HYPERPLASIA WITHOUT LOWER URINRY TRACT SYMP (6) Diabetes Code(s): E11.9 - TYPE 2 DIABETES MELLITUS WITHOUT COMPLICATIONS (7) Fever Code(s): R50.9 - FEVER, UNSPECIFIED Qualifiers: Fever type: unspecified Qualified Code(s): R50.9 - Fever, unspecified (8) HLD (hyperlipidemia) Code(s): E78.5 - HYPERLIPIDEMIA, UNSPECIFIED (9) Hypertension Code(s): I10 - ESSENTIAL (PRIMARY) HYPERTENSION Qualifiers: Hypertension type: other secondary hypertension Qualified Code(s): I15.8 - Other secondary hypertension (10) Sepsis Code(s): A41.9 - SEPSIS, UNSPECIFIED ORGANISM Qualifiers: Sepsis type: sepsis due to unspecified organism Qualified Code(s): A41.9 - Sepsis, unspecified organism (11) UTI (urinary tract infection) Code(s): N39.0 - URINARY TRACT INFECTION, SITE NOT SPECIFIED Assessment/Plan This is a 78 y.o. male with PMH of Metastatic Bladder CA (s/p chemotherapy over 3 wks ago) , currently with port in place, s/p urinary stent removal prior to last admission , DM, HTN, urinary retention s/p stent/rahman removal, s/p recent treatment for Sepsis due to ESBL + Klebsiella UTI/Bacteremia , and s/p TURP presenting with fever/weakness Sepsis b/l hydronephrosis Obstructive uropathy Met Bladder CA KARTHIKEYAN Urinary retention s/p TURP s/p UTI/Bacteremia DM all cx reports noted plan will give one dose of abx because of patients history await for the procedure rest as per the team patient stable
[2018-07-21] MEDS: FINASTERIDE 5 MG TABLET (FP) PO SCH (09:51)
[2018-07-21] MEDS: MULTIVITAMINS THER W-MINERALS COMBO TABLET (FP) PO SCH (09:51)
[2018-07-21] MEDS: NIFEdipine E.R. 30 MG TABLET (FP) PO SCH (09:51)
[2018-07-21] MEDS: HEPARIN NA (PORCINE) 5,000 UNITS/ML 1ML VIAL SQ SCH ×2 (09:51→21:03)
[2018-07-21] MEDS ORDERED: ERTAPENEM SODIUM 1 GM VIAL IM ONE (10:30)
[2018-07-21 11:47] LABS: ANISOCYTOSIS 2+; TARGET CELLS 1+; TEAR DROP CELLS 1+
[2018-07-21 11:48] LABS: OVALOCYTE 1+
[2018-07-21] MEDS: ERTAPENEM SODIUM 1 GM in SODIUM CHLORIDE 50 ML IVPB SCH (12:30)
[2018-07-21] MEDS ORDERED: MIDAZOLAM HCL 2 MG/2 ML SINGLE DOSE VIAL IVPUSH ONE (14:40)
--- NOTE | 2018-07-21 16:43 | PN ---
Progress Note (short form) - Note Progress Note: Renal Follow up for KARTHIKEYAN Pt seen and examined at the bedside earlier today no acute complaints no sob, cp, abd pain Vital Signs Temperature 97.6 F 07/21/18 15:57 Pulse Rate 79 07/21/18 15:57 Respiratory Rate 20 07/21/18 15:57 Blood Pressure 110/85 07/21/18 15:19 O2 Sat by Pulse Oximetry (%) 100 07/21/18 15:19 Intake & Output 07/18/18 07/19/18 07/20/18 07/21/18 23:59 23:59 23:59 23:59 Intake Total 2378 2350 4120 210 Output Total 4000 2400 4700 1950 Balance -9596 -68 -909 -1853 Weight 75.296 kg NAD MMM, No JVD RRR, NO M/R CTA soft NT/ND no bladder distension CBC, BMP 07/21/18 06:35 07/21/18 06:35 Current Medications Acetaminophen (Tylenol -) 650 mg PO Q6H PRN PRN Reason: FOR TEMP. OF 100 OR GREATER Last Admin: 07/21/18 01:14 Dose: 650 mg Finasteride (Proscar -) 5 mg PO DAILY [facility] Last Admin: 07/21/18 09:51 Dose: 5 mg Heparin Sodium (Porcine) (Heparin -) 5,000 unit SQ BID [facility] Last Admin: 07/21/18 09:51 Dose: Not Given IV Flush (Carmela-Cath Flush) 10 ml IVPUSH PRN PRN PRN Reason: protocol; maintain patency Last Admin: 07/18/18 06:03 Dose: 10 ml Sodium Chloride (Normal Saline -) 1,000 mls @ 30 mls/hr IV ASDIR [facility] Last Admin: 07/21/18 01:17 Dose: 30 mls/hr Ertapenem 1 gm/ Sodium (Chloride) 50 mls @ 100 mls/hr IVPB DAILY [facility] Last Admin: 07/21/18 12:30 Dose: 100 mls/hr Insulin Aspart (Novolog Vial Sliding Scale -) 1 vial SQ ACHS [facility]; Protocol Last Admin: 07/21/18 16:27 Dose: Not Given Metoprolol Succinate (Toprol Xl -) 100 mg PO DAILY [facility] Last Admin: 07/21/18 09:51 Dose: 100 mg Multivitamins/Minerals (Theragran-M) 1 each PO DAILY [facility] Last Admin: 07/21/18 09:51 Dose: 1 each Nifedipine (Procardia Xl -) 30 mg PO DAILY [facility] Last Admin: 07/21/18 09:51 Dose: 30 mg Tamsulosin HCl (Flomax -) 0.4 mg PO DAILY@0830 [facility] Last Admin: 07/21/18 08:01 Dose: Not Given 78 year old gentleman with Hx of Metastatic breast ca s/p chemo, Hx of hydronephrosis (s/p stenting), DM, Hypertension, Cirrhosis who presented with urinary retention and KARTHIKEYAN. #KARTHIKEYAN secondary to bladder outlet obstruction + upper level obstruction at level of kidney #Metastatic bladder Ca #Metabolic acidosis #Anemia #DM for IR nephrostomy placement today and subsequent stent removal/exchange next week Trend renal function and electrolytes continue IV Abx as per ID change IVF to 1/2 NS trend volume status and electrolytes start sodium bicarb Shalom Alarcon DO
--- NOTE | 2018-07-21 17:17 | PN ---
Physical Exam: SUBJECTIVE: Patient seen and examined at bedside. NO overnight events. No new complaints. He is going for stent replacement today with IR. Denies CP,HAIDER,SOB, abdominal pain, nausea or vomiting. OBJECTIVE: Vital Signs Period Temp Pulse Resp BP Sys/Benjamin Pulse Ox Last 24 Hr 97.6 F-102.5 F 58-99 16-20 110-141/68-91 97-100 GENERAL: AAOx3, NAD EYES: PERRL, EOMI, sclera anicteric, conjunctiva clear. ENT: moist mucous membranes. LUNGS: CTAB, no wheezes, no crackles, no accessory muscle use. CHEST: mediport in place right chest . HEART: RRR, S1, S2 without murmur, rub or gallop. ABDOMEN: Soft, NTND, NABS, no guarding, no rebound, no hepatosplenomegaly, no masses. EXTREMITIES: 2+ pulses, warm, well-perfused, no edema. PSYCH: Normal mood, normal affect. SKIN: intact. Laboratory Results - last 24 hr 07/20/18 07/20/18 07/21/18 16:51 21:42 06:23 WBC RBC Hgb Hct MCV MCH MCHC RDW Plt Count MPV Absolute Neuts (auto) Neutrophils % Lymphocytes % Monocytes % Eosinophils % Basophils % Nucleated RBC % Hypochromia Poikilocytosis Anisocytosis Microcytosis Target Cells Tear Drop Cells Ovalocytes Fragmented RBCs Sodium Potassium Chloride Carbon Dioxide Anion Gap BUN Creatinine Creat Clearance w eGFR POC Glucometer 171 179 140 Random Glucose Calcium Total Bilirubin AST ALT Alkaline Phosphatase Total Protein Albumin Blood Type Antibody Screen Crossmatch 07/21/18 07/21/18 07/21/18 06:35 06:35 11:00 WBC 15.4 H RBC 2.96 L Hgb 6.5 L* Hct 20.9 L MCV 70.6 L MCH 22.1 L MCHC 31.3 L RDW 23.7 H Plt Count 204 MPV 9.4 Absolute Neuts (auto) 13.4 H Neutrophils % 87.0 H Lymphocytes % 6.5 L D Monocytes % 5.5 Eosinophils % 0.7 D Basophils % 0.3 Nucleated RBC % 0 Hypochromia 2+ Poikilocytosis 2+ Anisocytosis 2+ Microcytosis 2+ Target Cells 1+ Tear Drop Cells 1+ Ovalocytes 1+ Fragmented RBCs 1+ Sodium 140 Potassium 3.7 Chloride 110 H Carbon Dioxide 18 L Anion Gap 11 BUN 49 H Creatinine 2.4 H Creat Clearance w eGFR 26.31 POC Glucometer Random Glucose 114 H Calcium 7.6 L Total Bilirubin 1.2 H AST 35 ALT 36 Alkaline Phosphatase 532 H Total Protein 5.8 L Albumin 2.0 L Blood Type A POSITIVE Antibody Screen Negative Crossmatch See Detail 07/21/18 07/21/18 12:24 16:19 WBC RBC Hgb Hct MCV MCH MCHC RDW Plt Count MPV Absolute Neuts (auto) Neutrophils % Lymphocytes % Monocytes % Eosinophils % Basophils % Nucleated RBC % Hypochromia Poikilocytosis Anisocytosis Microcytosis Target Cells Tear Drop Cells Ovalocytes Fragmented RBCs Sodium Potassium Chloride Carbon Dioxide Anion Gap BUN Creatinine Creat Clearance w eGFR POC Glucometer 128 138 Random Glucose Calcium Total Bilirubin AST ALT Alkaline Phosphatase Total Protein Albumin Blood Type Antibody Screen Crossmatch Active Medications Generic Name Dose Route Start Last Admin Trade Name Freq PRN Reason Stop Dose Admin Acetaminophen 650 mg 07/15/18 04:16 07/21/18 01:14 Tylenol - PO 650 mg Q6H PRN Administration FOR TEMP. OF 100 OR GREATER Finasteride 5 mg 07/15/18 10:00 07/21/18 09:51 Proscar - PO 5 mg DAILY [facility] Administration Heparin Sodium (Porcine) 5,000 unit 07/15/18 10:00 07/21/18 09:51 Heparin - SQ Not Given BID [facility] IV Flush 10 ml 07/18/18 05:32 07/18/18 06:03 Carmela-Cath Flush IVPUSH 10 ml PRN PRN Administration protocol; maintain patency Ertapenem 1 gm/ Sodium 50 mls @ 100 mls/hr 07/21/18 13:00 07/21/18 12:30 Chloride IVPB 100 mls/hr DAILY [facility] Administration Levofloxacin 500 mg in 100 mls @ 100 mls/hr 07/21/18 16:45 07/21/18 14:50 Levaquin 500 Mg Premixed Ivpb - IVPB 07/21/18 17:44 100 mls/hr ONCE ONE Administration Sodium Chloride 1,000 mls @ 75 mls/hr 07/21/18 16:45 1/2 Normal Saline IV ASDIR [facility] Insulin Aspart 1 vial 07/18/18 16:30 07/21/18 16:27 Novolog Vial Sliding Scale - SQ Not Given ACHS [facility] Protocol Metoprolol Succinate 100 mg 07/15/18 10:00 07/21/18 09:51 Toprol Xl - PO 100 mg DAILY [facility] Administration Multivitamins/Minerals 1 each 07/15/18 10:00 07/21/18 09:51 Theragran-M PO 1 each DAILY [facility] Administration Nifedipine 30 mg 07/15/18 10:00 07/21/18 09:51 Procardia Xl - PO 30 mg DAILY [facility] Administration Tamsulosin HCl 0.4 mg 07/15/18 08:30 07/21/18 08:01 Flomax - PO Not Given DAILY@0830 [facility] ASSESSMENT/PLAN: Problem List - Problems (1) 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 (2) Acute on chronic renal failure Assessment/Plan: renal function inproving. * Bilateral Hydronephrosis seen on US * Bladder scan NM showed obstruction. * IR guided stent placement. (3) Sepsis Assessment/Plan: ESBL UTI as the cause. * continue IVF * Meropenem on hold to monitor for temperature. (4) UTI (urinary tract infection) (5) Anemia Assessment/Plan: secondary to chronic kidney disease * No further w/u at this time. Visit type - Emergency Visit Emergency Visit: Yes ED Registration Date: 07/14/18 Care time: The patient presented to the Emergency Department on the above date and was hospitalized for further evaluation of their emergent condition. - New Patient This patient is new to me today: No - Critical Care Critical Care patient: No
--- NOTE | 2018-07-21 23:18 | PN ---
Progress Note (short form) - Note Progress Note: PAtient seen and examined s/p bilateral percutaneous nephrostomies today getting PRBCs AFVSS Cor: RSR, No murmurs, No gallops Lungs: decreased at bases Abd: Soft, Normal bowel sounds, No organomegaly Ext:No significant edema Labs/Meds reviewed A/P This is a 78 y.o. male with PMH of Metastatic Bladder CA (s/p C4 gemzar/ carboplatin 06/22/18) , currently with port in place, s/p urinary stent removal06/21 , s/p floley removal on 07/10/18 , DM, HTN, urinary retention s/p stent/ rahman removal, s/p recent treatment for Sepsis due to ESBL + Klebsiella UTI/ Bacteremia , and s/p TURP presenting with fever/weakness Also with acute renal failure, new since 07/05/18 Obstructive uropathy/acute renal failure getting percutaneous nephrostomies Anemia of chronic disease transfuse 1 unit PRBCs discussed with neprology/primary team
--- NOTE | 2018-07-21 23:26 | PN ---
Progress Note, Physician - Current Medication List Current Medications: Active Medications Acetaminophen (Tylenol -) 650 mg PO Q6H PRN PRN Reason: FOR TEMP. OF 100 OR GREATER Last Admin: 07/21/18 21:03 Dose: 650 mg Finasteride (Proscar -) 5 mg PO DAILY [facility] Last Admin: 07/21/18 09:51 Dose: 5 mg Heparin Sodium (Porcine) (Heparin -) 5,000 unit SQ BID [facility] Last Admin: 07/21/18 21:03 Dose: Not Given IV Flush (Carmela-Cath Flush) 10 ml IVPUSH PRN PRN PRN Reason: protocol; maintain patency Last Admin: 07/18/18 06:03 Dose: 10 ml Ertapenem 1 gm/ Sodium (Chloride) 50 mls @ 100 mls/hr IVPB DAILY [facility] Last Admin: 07/21/18 12:30 Dose: 100 mls/hr Sodium Chloride (1/2 Normal Saline) 1,000 mls @ 75 mls/hr IV ASDIR [facility] Insulin Aspart (Novolog Vial Sliding Scale -) 1 vial SQ ACHS [facility]; Protocol Last Admin: 07/21/18 21:08 Dose: Not Given Metoprolol Succinate (Toprol Xl -) 100 mg PO DAILY [facility] Last Admin: 07/21/18 09:51 Dose: 100 mg Multivitamins/Minerals (Theragran-M) 1 each PO DAILY [facility] Last Admin: 07/21/18 09:51 Dose: 1 each Nifedipine (Procardia Xl -) 30 mg PO DAILY [facility] Last Admin: 07/21/18 09:51 Dose: 30 mg Tamsulosin HCl (Flomax -) 0.4 mg PO DAILY@0830 [facility] Last Admin: 07/21/18 08:01 Dose: Not Given Zolpidem Tartrate (Ambien -) 5 mg PO HS PRN PRN Reason: INSOMNIA - Objective Vital Signs: Vital Signs Temperature 97.3 F L 07/21/18 17:30 Pulse Rate 71 07/21/18 17:30 Respiratory Rate 20 07/21/18 17:30 Blood Pressure 122/73 07/21/18 17:30 O2 Sat by Pulse Oximetry (%) 100 07/21/18 15:19 Labs: CBC, BMP 07/21/18 06:35 07/21/18 06:35 INR, PTT INR 1.26 (0.83-1.09) H 07/14/18 21:35 Problem List - Problems (1) Acute on chronic renal failure Code(s): N17.9 - ACUTE KIDNEY FAILURE, UNSPECIFIED; N18.9 - CHRONIC KIDNEY DISEASE, UNSPECIFIED Qualifiers: Acute renal failure type: unspecified Chronic kidney disease stage: stage 3 (moderate) Qualified Code(s): N17.9 - Acute kidney failure, unspecified; N18.3 - Chronic kidney disease, stage 3 (moderate) (2) Anemia Code(s): D64.9 - ANEMIA, UNSPECIFIED Qualifiers: Anemia type: due to chronic kidney disease Chronic kidney disease stage: stage 3 (moderate) Qualified Code(s): N18.3 - Chronic kidney disease, stage 3 (moderate); D63.1 - Anemia in chronic kidney disease (3) 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 Code(s): C79.9 - SECONDARY MALIGNANT NEOPLASM OF UNSPECIFIED SITE; C67.9 - MALIGNANT NEOPLASM OF BLADDER, UNSPECIFIED (4) BPH (benign prostatic hyperplasia) Code(s): N40.0 - BENIGN PROSTATIC HYPERPLASIA WITHOUT LOWER URINRY TRACT SYMP (5) Diabetes Code(s): E11.9 - TYPE 2 DIABETES MELLITUS WITHOUT COMPLICATIONS (6) HLD (hyperlipidemia) Code(s): E78.5 - HYPERLIPIDEMIA, UNSPECIFIED (7) Hypertension Code(s): I10 - ESSENTIAL (PRIMARY) HYPERTENSION Qualifiers: Hypertension type: other secondary hypertension Qualified Code(s): I15.8 - Other secondary hypertension (8) Sepsis Code(s): A41.9 - SEPSIS, UNSPECIFIED ORGANISM Qualifiers: Sepsis type: sepsis due to unspecified organism Qualified Code(s): A41.9 - Sepsis, unspecified organism
[2018-07-22] MEDS: ZOLPIDEM TARTRATE 5 MG TABLET PO PRN ×2 (01:10→21:48)
[2018-07-22] MEDS: SODIUM CHLORIDE 0.45% 1,000 ML IV SCH ×4 (01:10→21:48)
[2018-07-22] MEDS: ACETAMINOPHEN 325 MG TABLET (FP) PO PRN ×2 (06:15→21:39)
[2018-07-22] MEDS: INSULIN SLIDING SCALE (NOVOLOG) 1 VIAL SQ SCH ×4 (06:15→21:38)
[2018-07-22 08:11] LABS: BASO % 0.3 % (0-2.0); EOS % 1.1 % (0-4.5); HEMATOCRIT 25.5 % (35.4-49); HEMOGLOBIN 8.2 GM/dL (11.7-16.9); LYMPH % 5.2 % (8-40); MCH 22.6 pg (25.7-33.7); MEAN CELL VOLUME 70.8 fl (80-96); MEAN PLT VOLUME 9.7 fl (7.5-11.1); MONO % 5.3 % (3.8-10.2); NEUT % 88.1 % (42.8-82.8); PLATELET COUNT 245 K/MM3 (134-434); RBC 3.61 M/mm3 (4.00-5.60); RDW 24.4 % (11.9-15.9); WHITE BLOOD COUNT 13.8 K/mm3 (4.0-10.0)
[2018-07-22 08:17] LABS: ANION GAP 6 MMOL/L (8-16); BLOOD UREA NITROGEN 32 mg/dL (7-18); CALCIUM 8.1 mg/dL (8.5-10.1); CHLORIDE 111 mmol/L (98-107); CO2 21 mmol/L (21-32); CREATININE 1.3 mg/dL (0.55-1.3); GLUCOSE,RANDOM 123 mg/dL (74-106); MAGNESIUM 1.7 mg/dL (1.8-2.4); PHOSPHOROUS 3.6 mg/dL (2.5-4.9); POTASSIUM 3.8 mmol/L (3.5-5.1); SODIUM 138 mmol/L (136-145)
[2018-07-22] MEDS ORDERED: ERTAPENEM SODIUM 1 GM/50 ML PRE-DOCKED IVPB SCH (10:00)
[2018-07-22] MEDS: MULTIVITAMINS THER W-MINERALS COMBO TABLET (FP) PO SCH (10:07)
[2018-07-22] MEDS: ERTAPENEM SODIUM 1 GM in SODIUM CHLORIDE 50 ML IVPB SCH (10:08)
[2018-07-22] MEDS: NIFEdipine E.R. 30 MG TABLET (FP) PO SCH (10:08)
[2018-07-22] MEDS: FINASTERIDE 5 MG TABLET (FP) PO SCH (10:08)
[2018-07-22] MEDS: TAMSULOSIN HCL 0.4 MG CAP PO SCH (10:08)
[2018-07-22] MEDS: HEPARIN NA (PORCINE) 5,000 UNITS/ML 1ML VIAL SQ SCH ×2 (10:09→21:33)
--- NOTE | 2018-07-22 13:37 | PN ---
Progress Note, Physician History of Present Illness: stable no complaints now has b/l nephrostomy tubes in place - Current Medication List Current Medications: Active Medications Acetaminophen (Tylenol -) 650 mg PO Q6H PRN PRN Reason: FOR TEMP. OF 100 OR GREATER Last Admin: 07/22/18 06:15 Dose: 650 mg Finasteride (Proscar -) 5 mg PO DAILY [facility] Last Admin: 07/22/18 10:08 Dose: 5 mg Heparin Sodium (Porcine) (Heparin -) 5,000 unit SQ BID LIT Last Admin: 07/22/18 10:09 Dose: Not Given IV Flush (Carmela-Cath Flush) 10 ml IVPUSH PRN PRN PRN Reason: protocol; maintain patency Last Admin: 07/18/18 06:03 Dose: 10 ml Ertapenem 1 gm/ Sodium (Chloride) 50 mls @ 100 mls/hr IVPB DAILY [facility] Last Admin: 07/22/18 10:08 Dose: 100 mls/hr Sodium Chloride (1/2 Normal Saline) 1,000 mls @ 50 mls/hr IV ASDIR [facility] Last Admin: 07/22/18 12:55 Dose: 50 mls/hr Insulin Aspart (Novolog Vial Sliding Scale -) 1 vial SQ ACHS [facility]; Protocol Last Admin: 07/22/18 12:55 Dose: 2 units Metoprolol Succinate (Toprol Xl -) 100 mg PO DAILY [facility] Last Admin: 07/22/18 10:08 Dose: 100 mg Multivitamins/Minerals (Theragran-M) 1 each PO DAILY [facility] Last Admin: 07/22/18 10:07 Dose: 1 each Nifedipine (Procardia Xl -) 30 mg PO DAILY [facility] Last Admin: 07/22/18 10:08 Dose: 30 mg Tamsulosin HCl (Flomax -) 0.4 mg PO DAILY@0830 [facility] Last Admin: 07/22/18 10:08 Dose: 0.4 mg Zolpidem Tartrate (Ambien -) 5 mg PO HS PRN PRN Reason: INSOMNIA Last Admin: 07/22/18 01:10 Dose: 5 mg - Objective Vital Signs: Vital Signs Temperature 98.6 F 07/22/18 10:00 Pulse Rate 115 H 07/22/18 10:00 Respiratory Rate 20 07/22/18 10:00 Blood Pressure 128/78 07/22/18 10:00 O2 Sat by Pulse Oximetry (%) 97 07/22/18 09:00 Constitutional: Yes: No Distress, Calm Cardiovascular: Yes: Regular Rate and Rhythm Respiratory: Yes: Regular, CTA Bilaterally Gastrointestinal: Yes: Normal Bowel Sounds, Soft Genitourinary: Yes: Other (b/l nephrostomy tubes in place) Musculoskeletal: Yes: WNL Extremities: Yes: WNL Neurological: Yes: Alert, Oriented Psychiatric: Yes: Alert Labs: CBC, BMP 07/22/18 06:00 07/22/18 06:00 INR, PTT INR 1.26 (0.83-1.09) H 07/14/18 21:35 Assessment/Plan Problem List - Problems (1) KARTHIKEYAN (acute kidney injury) Code(s): N17.9 - ACUTE KIDNEY FAILURE, UNSPECIFIED (2) Anemia Code(s): D64.9 - ANEMIA, UNSPECIFIED (3) Lactic acidosis Code(s): E87.2 - ACIDOSIS (4) 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 Code(s): C79.9 - SECONDARY MALIGNANT NEOPLASM OF UNSPECIFIED SITE; C67.9 - MALIGNANT NEOPLASM OF BLADDER, UNSPECIFIED (5) BPH (benign prostatic hyperplasia) Code(s): N40.0 - BENIGN PROSTATIC HYPERPLASIA WITHOUT LOWER URINRY TRACT SYMP (6) Diabetes Code(s): E11.9 - TYPE 2 DIABETES MELLITUS WITHOUT COMPLICATIONS (7) Fever Code(s): R50.9 - FEVER, UNSPECIFIED Qualifiers: Fever type: unspecified Qualified Code(s): R50.9 - Fever, unspecified (8) HLD (hyperlipidemia) Code(s): E78.5 - HYPERLIPIDEMIA, UNSPECIFIED (9) Hypertension Code(s): I10 - ESSENTIAL (PRIMARY) HYPERTENSION Qualifiers: Hypertension type: other secondary hypertension Qualified Code(s): I15.8 - Other secondary hypertension (10) Sepsis Code(s): A41.9 - SEPSIS, UNSPECIFIED ORGANISM Qualifiers: Sepsis type: sepsis due to unspecified organism Qualified Code(s): A41.9 - Sepsis, unspecified organism (11) UTI (urinary tract infection) Code(s): N39.0 - URINARY TRACT INFECTION, SITE NOT SPECIFIED Assessment/Plan This is a 78 y.o. male with PMH of Metastatic Bladder CA (s/p chemotherapy over 3 wks ago) , currently with port in place, s/p urinary stent removal prior to last admission , DM, HTN, urinary retention s/p stent/rahman removal, s/p recent treatment for Sepsis due to ESBL + Klebsiella UTI/Bacteremia , and s/p TURP presenting with fever/weakness Sepsis b/l hydronephrosis Obstructive uropathy Met Bladder CA KARTHIKEYAN Urinary retention s/p TURP s/p UTI/Bacteremia DM all cx reports noted plan continue abx await for finalization of urine cx rest as per the team final plan awaited
--- NOTE | 2018-07-22 14:04 | PN ---
Progress Note, Physician Chief Complaint: The patient seen in his bed. Feeling better with the placement of the Perc nephrostomy tubes. Denies any pains. The Nephrostomy bags with clear urine. The Galarza bag is empty. History of Present Illness: 78 year old gentleman with Hx of Metastatic bladder Ca s/p chemo, Hx of hydronephrosis (s/p stenting), DM, Hypertension, Cirrhosis who presented with urinary retention and KARTHIKEYAN. KARTHIKEYAN secondary to bladder outlet obstruction + upper level obstruction at level of kidney Metastatic bladder Ca - Current Medication List Current Medications: Active Medications Acetaminophen (Tylenol -) 650 mg PO Q6H PRN PRN Reason: FOR TEMP. OF 100 OR GREATER Last Admin: 07/22/18 06:15 Dose: 650 mg Finasteride (Proscar -) 5 mg PO DAILY [facility] Last Admin: 07/22/18 10:08 Dose: 5 mg Heparin Sodium (Porcine) (Heparin -) 5,000 unit SQ BID [facility] Last Admin: 07/22/18 10:09 Dose: Not Given IV Flush (Carmela-Cath Flush) 10 ml IVPUSH PRN PRN PRN Reason: protocol; maintain patency Last Admin: 07/18/18 06:03 Dose: 10 ml Ertapenem 1 gm/ Sodium (Chloride) 50 mls @ 100 mls/hr IVPB DAILY [facility] Last Admin: 07/22/18 10:08 Dose: 100 mls/hr Sodium Chloride (1/2 Normal Saline) 1,000 mls @ 50 mls/hr IV ASDIR [facility] Last Admin: 07/22/18 12:55 Dose: 50 mls/hr Insulin Aspart (Novolog Vial Sliding Scale -) 1 vial SQ ACHS [facility]; Protocol Last Admin: 07/22/18 12:55 Dose: 2 units Metoprolol Succinate (Toprol Xl -) 100 mg PO DAILY [facility] Last Admin: 07/22/18 10:08 Dose: 100 mg Multivitamins/Minerals (Theragran-M) 1 each PO DAILY [facility] Last Admin: 07/22/18 10:07 Dose: 1 each Nifedipine (Procardia Xl -) 30 mg PO DAILY [facility] Last Admin: 07/22/18 10:08 Dose: 30 mg Tamsulosin HCl (Flomax -) 0.4 mg PO DAILY@0830 [facility] Last Admin: 07/22/18 10:08 Dose: 0.4 mg Zolpidem Tartrate (Ambien -) 5 mg PO HS PRN PRN Reason: INSOMNIA Last Admin: 07/22/18 01:10 Dose: 5 mg - Objective Vital Signs: Vital Signs Temperature 98.6 F 07/22/18 10:00 Pulse Rate 115 H 07/22/18 10:00 Respiratory Rate 20 07/22/18 10:00 Blood Pressure 128/78 07/22/18 10:00 O2 Sat by Pulse Oximetry (%) 97 07/22/18 09:00 Constitutional: Yes: No Distress, Calm Eyes: Yes: Conjunctiva Clear HENT: Yes: Normocephalic Neck: Yes: Trachea Midline Cardiovascular: Yes: Tachycardia, S1, S2 Respiratory: Yes: CTA Bilaterally Gastrointestinal: Yes: Normal Bowel Sounds, Soft Genitourinary: Yes: Galarza Present, Other (Bilateral percutaneous nephrostomy in place.) Edema: No Neurological: Yes: Alert, Oriented Labs: CBC, BMP 07/22/18 06:00 07/22/18 06:00 INR, PTT INR 1.26 (0.83-1.09) H 07/14/18 21:35 Problem List - Problems (1) KARTHIKEYAN (acute kidney injury) Code(s): N17.9 - ACUTE KIDNEY FAILURE, UNSPECIFIED (2) Acute on chronic renal failure Code(s): N17.9 - ACUTE KIDNEY FAILURE, UNSPECIFIED; N18.9 - CHRONIC KIDNEY DISEASE, UNSPECIFIED Qualifiers: Acute renal failure type: unspecified Chronic kidney disease stage: stage 3 (moderate) Qualified Code(s): N17.9 - Acute kidney failure, unspecified; N18.3 - Chronic kidney disease, stage 3 (moderate) (3) Anemia Code(s): D64.9 - ANEMIA, UNSPECIFIED Qualifiers: Anemia type: due to chronic kidney disease Chronic kidney disease stage: stage 3 (moderate) Qualified Code(s): N18.3 - Chronic kidney disease, stage 3 (moderate); D63.1 - Anemia in chronic kidney disease (4) 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 Code(s): C79.9 - SECONDARY MALIGNANT NEOPLASM OF UNSPECIFIED SITE; C67.9 - MALIGNANT NEOPLASM OF BLADDER, UNSPECIFIED (5) Abdominal pain Code(s): R10.9 - UNSPECIFIED ABDOMINAL PAIN (6) Bladder cancer Code(s): C67.9 - MALIGNANT NEOPLASM OF BLADDER, UNSPECIFIED (7) Diabetes Code(s): E11.9 - TYPE 2 DIABETES MELLITUS WITHOUT COMPLICATIONS (8) Hematuria Code(s): R31.9 - HEMATURIA, UNSPECIFIED Qualifiers: Hematuria type: gross Qualified Code(s): R31.0 - Gross hematuria (9) Hydronephrosis Code(s): N13.30 - UNSPECIFIED HYDRONEPHROSIS Assessment/Plan 78 year old gentleman with Hx of Metastatic bladder Ca s/p chemo, Hx of hydronephrosis (s/p stenting), DM, Hypertension, Cirrhosis who presented with urinary retention and KARTHIKEYAN. The patient had placement fo bilateral nephrostomy, and draining clear urine. Suggest: DC Galarza catheter The patient will need bilateral ureteric stent, and removal of the nephrostomy tubes. Thank you. Will follow with you. Amena Paulino MD
--- NOTE | 2018-07-22 17:05 | PN ---
Progress Note (short form) - Note Progress Note: PAtient seen and examined s/p bilateral percutaneous nephrostomies doing better Vital Signs Period Temp Pulse Resp BP Sys/Benjamin Pulse Ox Last 24 Hr 97.3 F-100.4 F 71-115 18-20 122-152/73-91 97-100 AFVSS Cor: RSR, No murmurs, No gallops Lungs: decreased at bases Abd: Soft, Normal bowel sounds, No organomegaly Ext:No significant edema CBC, BMP 07/22/18 06:00 07/22/18 06:00 A/P This is a 78 y.o. male with PMH of Metastatic Bladder CA (s/p C4 gemzar/ carboplatin 06/22/18) , currently with port in place, s/p urinary stent removal06/21 , s/p floley removal on 07/10/18 , DM, HTN, urinary retention s/p stent/ rahman removal, s/p recent treatment for Sepsis due to ESBL + Klebsiella UTI/ Bacteremia , and s/p TURP presenting with fever/weakness Also with acute renal failure, new since 07/05/18 Obstructive uropathy/acute renal failure s/p percutaneous nephrostomies his creatinien has significantly improved monitor for now
[2018-07-22] MEDS ORDERED: INSULIN (NOVOLOG) ASPART 100 UNITS/ML 10ML VIAL ONE (20:09)
--- NOTE | 2018-07-22 23:29 | PN ---
Progress Note, Physician History of Present Illness: No new complaints - Current Medication List Current Medications: Active Medications Acetaminophen (Tylenol -) 650 mg PO Q6H PRN PRN Reason: FOR TEMP. OF 100 OR GREATER Last Admin: 07/22/18 21:39 Dose: 650 mg Finasteride (Proscar -) 5 mg PO DAILY [facility] Last Admin: 07/22/18 10:08 Dose: 5 mg Heparin Sodium (Porcine) (Heparin -) 5,000 unit SQ BID [facility] Last Admin: 07/22/18 21:33 Dose: Not Given IV Flush (Carmela-Cath Flush) 10 ml IVPUSH PRN PRN PRN Reason: protocol; maintain patency Last Admin: 07/18/18 06:03 Dose: 10 ml Ertapenem 1 gm/ Sodium (Chloride) 50 mls @ 100 mls/hr IVPB DAILY [facility] Last Admin: 07/22/18 10:08 Dose: 100 mls/hr Sodium Chloride (1/2 Normal Saline) 1,000 mls @ 50 mls/hr IV ASDIR [facility] Last Admin: 07/22/18 21:48 Dose: 50 mls/hr Insulin Aspart (Novolog Vial Sliding Scale -) 1 vial SQ ACHS [facility]; Protocol Last Admin: 07/22/18 21:38 Dose: 2 units Metoprolol Succinate (Toprol Xl -) 100 mg PO DAILY [facility] Last Admin: 07/22/18 10:08 Dose: 100 mg Multivitamins/Minerals (Theragran-M) 1 each PO DAILY [facility] Last Admin: 07/22/18 10:07 Dose: 1 each Nifedipine (Procardia Xl -) 30 mg PO DAILY [facility] Last Admin: 07/22/18 10:08 Dose: 30 mg Tamsulosin HCl (Flomax -) 0.4 mg PO DAILY@0830 [facility] Last Admin: 07/22/18 10:08 Dose: 0.4 mg Zolpidem Tartrate (Ambien -) 5 mg PO HS PRN PRN Reason: INSOMNIA Last Admin: 07/22/18 21:48 Dose: 5 mg - Objective Vital Signs: Vital Signs Temperature 99.3 F 07/22/18 21:50 Pulse Rate 97 H 07/22/18 21:50 Respiratory Rate 18 07/22/18 21:50 Blood Pressure 143/75 07/22/18 21:50 O2 Sat by Pulse Oximetry (%) 97 07/22/18 21:00 Neck: Yes: WNL, Supple Cardiovascular: Yes: WNL, Regular Rate and Rhythm Respiratory: Yes: WNL, Regular, CTA Bilaterally Gastrointestinal: Yes: WNL, Normal Bowel Sounds, Soft Genitourinary: Yes: Other (B/L nephrostomy tubes) Labs: CBC, BMP 07/22/18 06:00 07/22/18 06:00 INR, PTT INR 1.26 (0.83-1.09) H 07/14/18 21:35 Problem List - Problems (1) Acute on chronic renal failure Assessment/Plan: Cont IVF S/P placement b/l nephrostomy tunes due to obstruction Code(s): N17.9 - ACUTE KIDNEY FAILURE, UNSPECIFIED; N18.9 - CHRONIC KIDNEY DISEASE, UNSPECIFIED Qualifiers: Acute renal failure type: unspecified Chronic kidney disease stage: stage 3 (moderate) Qualified Code(s): N17.9 - Acute kidney failure, unspecified; N18.3 - Chronic kidney disease, stage 3 (moderate) (2) Anemia Assessment/Plan: Monitor H/H S/P transfusion PRBC's Code(s): D64.9 - ANEMIA, UNSPECIFIED Qualifiers: Anemia type: due to chronic kidney disease Chronic kidney disease stage: stage 3 (moderate) Qualified Code(s): N18.3 - Chronic kidney disease, stage 3 (moderate); D63.1 - Anemia in chronic kidney disease (3) 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 Assessment/Plan: As per onco Code(s): C79.9 - SECONDARY MALIGNANT NEOPLASM OF UNSPECIFIED SITE; C67.9 - MALIGNANT NEOPLASM OF BLADDER, UNSPECIFIED (4) BPH (benign prostatic hyperplasia) Assessment/Plan: Cont flomax Code(s): N40.0 - BENIGN PROSTATIC HYPERPLASIA WITHOUT LOWER URINRY TRACT SYMP (5) Diabetes Assessment/Plan: Creatinine is now normal Can restart metformin Cont sliding scale w/ coverage Code(s): E11.9 - TYPE 2 DIABETES MELLITUS WITHOUT COMPLICATIONS (6) HLD (hyperlipidemia) Code(s): E78.5 - HYPERLIPIDEMIA, UNSPECIFIED (7) Hypertension Assessment/Plan: Cont metoprolol BP Stable Code(s): I10 - ESSENTIAL (PRIMARY) HYPERTENSION Qualifiers: Hypertension type: other secondary hypertension Qualified Code(s): I15.8 - Other secondary hypertension (8) Sepsis Assessment/Plan: Cont IV antibxs Follow cultures wc have been negative ID consult Code(s): A41.9 - SEPSIS, UNSPECIFIED ORGANISM Qualifiers: Sepsis type: sepsis due to unspecified organism Qualified Code(s): A41.9 - Sepsis, unspecified organism
[2018-07-23] MEDS: INSULIN SLIDING SCALE (NOVOLOG) 1 VIAL SQ SCH ×4 (06:01→22:53)
[2018-07-23] MEDS: metFORMIN HCL 500 MG TABLET (FP) PO SCH ×2 (06:17→17:30)
[2018-07-23 07:38] LABS: BASO % 0.6 % (0-2.0); EOS % 2.2 % (0-4.5); HEMATOCRIT 25.3 % (35.4-49); HEMOGLOBIN 8.1 GM/dL (11.7-16.9); LYMPH % 9.4 % (8-40); MCH 22.8 pg (25.7-33.7); MCHC 31.8 g/dl (32.0-35.9); MEAN CELL VOLUME 71.6 fl (80-96); MEAN PLT VOLUME 9.6 fl (7.5-11.1); MONO % 6.6 % (3.8-10.2); NEUT % 81.2 % (42.8-82.8); PLATELET COUNT 247 K/MM3 (134-434); RBC 3.54 M/mm3 (4.00-5.60); WHITE BLOOD COUNT 10.5 K/mm3 (4.0-10.0)
[2018-07-23 08:13] LABS: ALBUMIN 2.2 g/dl (3.4-5.0); ALK PHOS 627 U/L (45-117); ANION GAP 8 MMOL/L (8-16); BILIRUBIN,TOTAL 1.1 mg/dL (0.2-1); BLOOD UREA NITROGEN 20 mg/dL (7-18); CHLORIDE 107 mmol/L (98-107); CO2 24 mmol/L (21-32); CREATININE 0.8 mg/dL (0.55-1.3); GLUCOSE,RANDOM 115 mg/dL (74-106); POTASSIUM 3.2 mmol/L (3.5-5.1); SGOT/AST 26 U/L (15-37); SGPT/ALT 37 U/L (13-61); SODIUM 139 mmol/L (136-145); TOT PROT 6.3 g/dl (6.4-8.2)
--- NOTE | 2018-07-23 09:57 | PN ---
Progress Note, Physician Chief Complaint: The patient seen in his bed. Feeling better with the placement of the Perc nephrostomy tubes. Denies any pains. The Nephrostomy bags with clear urine. The Galarza has been removed. The patient feels much stronger. Requesting a walker to help walking. History of Present Illness: 78 year old gentleman with Hx of Metastatic bladder Ca s/p chemo, Hx of hydronephrosis (s/p stenting), DM, Hypertension, Cirrhosis who presented with urinary retention and KARTHIKEYAN. KARTHIKEYAN secondary to bladder outlet obstruction + upper level obstruction at level of kidney Metastatic bladder Ca S/p umair. percutaneous nephrostomy - Current Medication List Current Medications: Active Medications Acetaminophen (Tylenol -) 650 mg PO Q6H PRN PRN Reason: FOR TEMP. OF 100 OR GREATER Last Admin: 07/22/18 21:39 Dose: 650 mg Finasteride (Proscar -) 5 mg PO DAILY [facility] Last Admin: 07/22/18 10:08 Dose: 5 mg Heparin Sodium (Porcine) (Heparin -) 5,000 unit SQ BID [facility] Last Admin: 07/22/18 21:33 Dose: Not Given IV Flush (Carmela-Cath Flush) 10 ml IVPUSH PRN PRN PRN Reason: protocol; maintain patency Last Admin: 07/18/18 06:03 Dose: 10 ml Ertapenem 1 gm/ Sodium (Chloride) 50 mls @ 100 mls/hr IVPB DAILY [facility] Last Admin: 07/22/18 10:08 Dose: 100 mls/hr Insulin Aspart (Novolog Vial Sliding Scale -) 1 vial SQ ACHS [facility]; Protocol Last Admin: 07/23/18 06:01 Dose: Not Given Metformin HCl (Glucophage -) 500 mg PO BID@0700,1630 [facility] Last Admin: 07/23/18 06:17 Dose: 500 mg Metoprolol Succinate (Toprol Xl -) 100 mg PO DAILY [facility] Last Admin: 07/22/18 10:08 Dose: 100 mg Multivitamins/Minerals (Theragran-M) 1 each PO DAILY [facility] Last Admin: 07/22/18 10:07 Dose: 1 each Nifedipine (Procardia Xl -) 30 mg PO DAILY [facility] Last Admin: 07/22/18 10:08 Dose: 30 mg Tamsulosin HCl (Flomax -) 0.4 mg PO DAILY@0830 [facility] Last Admin: 07/22/18 10:08 Dose: 0.4 mg Zolpidem Tartrate (Ambien -) 5 mg PO HS PRN PRN Reason: INSOMNIA Last Admin: 07/22/18 21:48 Dose: 5 mg - Objective Vital Signs: Vital Signs Temperature 99.0 F 07/23/18 06:00 Pulse Rate 90 07/23/18 06:00 Respiratory Rate 18 07/23/18 06:00 Blood Pressure 124/75 07/23/18 06:00 O2 Sat by Pulse Oximetry (%) 97 07/22/18 21:00 Constitutional: Yes: No Distress Eyes: Yes: Conjunctiva Clear HENT: Yes: Normocephalic Neck: Yes: Trachea Midline Cardiovascular: Yes: Tachycardia, S1, S2 Respiratory: Yes: CTA Bilaterally, Diminished Gastrointestinal: Yes: Normal Bowel Sounds, Soft Genitourinary: Yes: Other (umair perc nephrostomy...draining good amounts of urine.) Musculoskeletal: Yes: Back Pain Edema: No Neurological: Yes: Alert, Oriented Labs: CBC, BMP 07/23/18 06:00 07/23/18 06:00 INR, PTT INR 1.26 (0.83-1.09) H 07/14/18 21:35 Problem List - Problems (1) KARTHIKEYAN (acute kidney injury) Code(s): N17.9 - ACUTE KIDNEY FAILURE, UNSPECIFIED (2) Acute on chronic renal failure Code(s): N17.9 - ACUTE KIDNEY FAILURE, UNSPECIFIED; N18.9 - CHRONIC KIDNEY DISEASE, UNSPECIFIED Qualifiers: Acute renal failure type: unspecified Chronic kidney disease stage: stage 3 (moderate) Qualified Code(s): N17.9 - Acute kidney failure, unspecified; N18.3 - Chronic kidney disease, stage 3 (moderate) (3) Anemia Code(s): D64.9 - ANEMIA, UNSPECIFIED Qualifiers: Anemia type: due to chronic kidney disease Chronic kidney disease stage: stage 3 (moderate) Qualified Code(s): N18.3 - Chronic kidney disease, stage 3 (moderate); D63.1 - Anemia in chronic kidney disease (4) 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 Code(s): C79.9 - SECONDARY MALIGNANT NEOPLASM OF UNSPECIFIED SITE; C67.9 - MALIGNANT NEOPLASM OF BLADDER, UNSPECIFIED (5) Abdominal pain Code(s): R10.9 - UNSPECIFIED ABDOMINAL PAIN (6) Bladder cancer Code(s): C67.9 - MALIGNANT NEOPLASM OF BLADDER, UNSPECIFIED (7) Diabetes Code(s): E11.9 - TYPE 2 DIABETES MELLITUS WITHOUT COMPLICATIONS (8) Hematuria Code(s): R31.9 - HEMATURIA, UNSPECIFIED Qualifiers: Hematuria type: gross Qualified Code(s): R31.0 - Gross hematuria (9) Hydronephrosis Code(s): N13.30 - UNSPECIFIED HYDRONEPHROSIS Assessment/Plan 78 year old gentleman with Hx of Metastatic bladder Ca s/p chemo, Hx of hydronephrosis (s/p stenting), DM, Hypertension, Cirrhosis who presented with urinary retention and KARTHIKEYAN. The patient had placement fo bilateral nephrostomy, and draining clear urine. Suggest: Maintain hydration The patient will eventually need bilateral ureteric stent, and removal of the nephrostomy tubes. Will monitor the renal functions with you. Thank you. Will follow with you. Amena Paulino MD
[2018-07-23] MEDS: ERTAPENEM SODIUM 1 GM in SODIUM CHLORIDE 50 ML IVPB SCH (10:04)
[2018-07-23] MEDS: MULTIVITAMINS THER W-MINERALS COMBO TABLET (FP) PO SCH (10:04)
[2018-07-23] MEDS: FINASTERIDE 5 MG TABLET (FP) PO SCH (10:04)
[2018-07-23] MEDS: NIFEdipine E.R. 30 MG TABLET (FP) PO SCH (10:04)
[2018-07-23] MEDS: TAMSULOSIN HCL 0.4 MG CAP PO SCH (10:04)
[2018-07-23] MEDS: HEPARIN NA (PORCINE) 5,000 UNITS/ML 1ML VIAL SQ SCH (10:04)
--- NOTE | 2018-07-23 10:21 | PN ---
Progress Note (short form) - Note Progress Note: PAtient seen and examined s/p bilateral percutaneous nephrostomies doing better he wants to walk with a walker PT consult Vital Signs Period Temp Pulse Resp BP Sys/Benjamin Pulse Ox Last 24 Hr 97.9 F-99.5 F 83-100 18-20 120-143/75-91 97 AFVSS Abd: Soft, Normal bowel sounds, No organomegaly Ext:No significant edema CBC, BMP 07/23/18 06:00 07/23/18 06:00 Active Medications Generic Name Dose Route Start Last Admin Trade Name Freq PRN Reason Stop Dose Admin Acetaminophen 650 mg 07/15/18 04:16 07/22/18 21:39 Tylenol - PO 650 mg Q6H PRN Administration FOR TEMP. OF 100 OR GREATER Finasteride 5 mg 07/15/18 10:00 07/23/18 10:04 Proscar - PO 5 mg DAILY [facility] Administration Heparin Sodium (Porcine) 5,000 unit 07/15/18 10:00 07/23/18 10:04 Heparin - SQ 5,000 unit BID [facility] Administration IV Flush 10 ml 07/18/18 05:32 07/18/18 06:03 Carmela-Cath Flush IVPUSH 10 ml PRN PRN Administration protocol; maintain patency Ertapenem 1 gm/ Sodium 50 mls @ 100 mls/hr 07/21/18 13:00 07/23/18 10:04 Chloride IVPB 100 mls/hr DAILY [facility] Administration Insulin Aspart 1 vial 07/18/18 16:30 07/23/18 06:01 Novolog Vial Sliding Scale - SQ Not Given ACHS [facility] Protocol Metformin HCl 500 mg 07/23/18 07:00 07/23/18 06:17 Glucophage - PO 500 mg BID@0700,1630 [facility] Administration Metoprolol Succinate 100 mg 07/15/18 10:00 07/23/18 10:04 Toprol Xl - PO 100 mg DAILY [facility] Administration Multivitamins/Minerals 1 each 07/15/18 10:00 07/23/18 10:04 Theragran-M PO 1 each DAILY [facility] Administration Nifedipine 30 mg 07/15/18 10:00 07/23/18 10:04 Procardia Xl - PO 30 mg DAILY [facility] Administration Tamsulosin HCl 0.4 mg 07/15/18 08:30 07/23/18 10:04 Flomax - PO 0.4 mg DAILY@0830 [facility] Administration Zolpidem Tartrate 5 mg 07/21/18 19:14 07/22/18 21:48 Ambien - PO 5 mg HS PRN Administration INSOMNIA A/P This is a 78 y.o. male with PMH of Metastatic Bladder CA (s/p C4 gemzar/ carboplatin 06/22/18) , currently with port in place, s/p urinary stent removal06/21 , s/p floley removal on 07/10/18 , DM, HTN, urinary retention s/p stent/ rahman removal, s/p recent treatment for Sepsis due to ESBL + Klebsiella UTI/ Bacteremia , and s/p TURP presenting with fever/weakness Also with acute renal failure, new since 07/05/18 Obstructive uropathy/acute renal failure s/p percutaneous nephrostomies his creatinine has significantly improved on ertapenem PT consult monitor for now
[2018-07-23] MEDS: PORTA CATH FLUSH 10 ML IVPUSH PRN (10:49)
[2018-07-23] MEDS ORDERED: FLUCONAZOLE 400 MG/D5W 200 ML IVPB ONE (11:29)
--- NOTE | 2018-07-23 11:33 | PN ---
Progress Note, Physician History of Present Illness: stable no new issues patient for internalization of the stents - Current Medication List Current Medications: Active Medications Acetaminophen (Tylenol -) 650 mg PO Q6H PRN PRN Reason: FOR TEMP. OF 100 OR GREATER Last Admin: 07/22/18 21:39 Dose: 650 mg Finasteride (Proscar -) 5 mg PO DAILY [facility] Last Admin: 07/23/18 10:04 Dose: 5 mg Heparin Sodium (Porcine) (Heparin -) 5,000 unit SQ BID LIT Last Admin: 07/23/18 10:04 Dose: 5,000 unit IV Flush (Carmela-Cath Flush) 10 ml IVPUSH PRN PRN PRN Reason: protocol; maintain patency Last Admin: 07/23/18 10:49 Dose: 10 ml Ertapenem 1 gm/ Sodium (Chloride) 50 mls @ 100 mls/hr IVPB DAILY [facility] Last Admin: 07/23/18 10:04 Dose: 100 mls/hr Fluconazole (Diflucan 400 Mg/D5w Premixed Ivpb -) 200 mls @ 200 mls/hr IVPB ONCE ONE Stop: 07/23/18 12:28 Insulin Aspart (Novolog Vial Sliding Scale -) 1 vial SQ ACHS [facility]; Protocol Last Admin: 07/23/18 06:01 Dose: Not Given Metformin HCl (Glucophage -) 500 mg PO BID@0700,1630 [facility] Last Admin: 07/23/18 06:17 Dose: 500 mg Metoprolol Succinate (Toprol Xl -) 100 mg PO DAILY [facility] Last Admin: 07/23/18 10:04 Dose: 100 mg Multivitamins/Minerals (Theragran-M) 1 each PO DAILY [facility] Last Admin: 07/23/18 10:04 Dose: 1 each Nifedipine (Procardia Xl -) 30 mg PO DAILY [facility] Last Admin: 07/23/18 10:04 Dose: 30 mg Tamsulosin HCl (Flomax -) 0.4 mg PO DAILY@0830 [facility] Last Admin: 07/23/18 10:04 Dose: 0.4 mg Zolpidem Tartrate (Ambien -) 5 mg PO HS PRN PRN Reason: INSOMNIA Last Admin: 07/22/18 21:48 Dose: 5 mg - Objective Vital Signs: Vital Signs Temperature 98.6 F 07/23/18 10:00 Pulse Rate 90 07/23/18 10:00 Respiratory Rate 18 07/23/18 10:00 Blood Pressure 120/86 07/23/18 10:00 O2 Sat by Pulse Oximetry (%) 97 07/22/18 21:00 Constitutional: Yes: No Distress, Calm Cardiovascular: Yes: S1, S2 Respiratory: Yes: Regular, CTA Bilaterally Gastrointestinal: Yes: Normal Bowel Sounds, Soft Genitourinary: Yes: Other (b/l nephrostomy tubes in place) Musculoskeletal: Yes: WNL Extremities: Yes: WNL Neurological: Yes: Alert, Oriented Psychiatric: Yes: Alert, Oriented Labs: CBC, BMP 07/23/18 06:00 07/23/18 06:00 INR, PTT INR 1.26 (0.83-1.09) H 07/14/18 21:35 Assessment/Plan Problem List - Problems (1) KARTHIKEYAN (acute kidney injury) Code(s): N17.9 - ACUTE KIDNEY FAILURE, UNSPECIFIED (2) Anemia Code(s): D64.9 - ANEMIA, UNSPECIFIED (3) Lactic acidosis Code(s): E87.2 - ACIDOSIS (4) 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 Code(s): C79.9 - SECONDARY MALIGNANT NEOPLASM OF UNSPECIFIED SITE; C67.9 - MALIGNANT NEOPLASM OF BLADDER, UNSPECIFIED (5) BPH (benign prostatic hyperplasia) Code(s): N40.0 - BENIGN PROSTATIC HYPERPLASIA WITHOUT LOWER URINRY TRACT SYMP (6) Diabetes Code(s): E11.9 - TYPE 2 DIABETES MELLITUS WITHOUT COMPLICATIONS (7) Fever Code(s): R50.9 - FEVER, UNSPECIFIED Qualifiers: Fever type: unspecified Qualified Code(s): R50.9 - Fever, unspecified (8) HLD (hyperlipidemia) Code(s): E78.5 - HYPERLIPIDEMIA, UNSPECIFIED (9) Hypertension Code(s): I10 - ESSENTIAL (PRIMARY) HYPERTENSION Qualifiers: Hypertension type: other secondary hypertension Qualified Code(s): I15.8 - Other secondary hypertension (10) Sepsis Code(s): A41.9 - SEPSIS, UNSPECIFIED ORGANISM Qualifiers: Sepsis type: sepsis due to unspecified organism Qualified Code(s): A41.9 - Sepsis, unspecified organism (11) UTI (urinary tract infection) Code(s): N39.0 - URINARY TRACT INFECTION, SITE NOT SPECIFIED Assessment/Plan This is a 78 y.o. male with PMH of Metastatic Bladder CA (s/p chemotherapy over 3 wks ago) , currently with port in place, s/p urinary stent removal prior to last admission , DM, HTN, urinary retention s/p stent/rahman removal, s/p recent treatment for Sepsis due to ESBL + Klebsiella UTI/Bacteremia , and s/p TURP presenting with fever/weakness Sepsis b/l hydronephrosis Obstructive uropathy Met Bladder CA KARTHIKEYAN Urinary retention s/p TURP s/p UTI/Bacteremia DM all cx reports noted plan continue abx cx results noted will start diflucan
--- NOTE | 2018-07-23 13:24 | PN ---
Physical Exam: SUBJECTIVE: Patient seen and examined at bedside. present. Was oob to chair today, did a little walking. OBJECTIVE: Vital Signs Period Temp Pulse Resp BP Sys/Benjamin Pulse Ox Last 24 Hr 97.9 F-99.5 F 83-100 18-20 120-143/75-91 97 GENERAL: The patient is awake, alert, and fully oriented, in no acute distress. LUNGS: CTA HEART: Regular rate and rhythm, S1, S2 ABDOMEN: Soft, nontender, nondistended : Bilateral nephrostomy tubes both draining yellow urine with sediment EXTREMITIES: 2+ pulses, warm, well-perfused, no edema. NEUROLOGICAL: Cranial nerves II through XII grossly intact. Normal speech, moving all extremities freely, able to self position in bed Laboratory Results - last 24 hr 07/22/18 07/22/18 07/23/18 17:02 21:36 05:38 WBC RBC Hgb Hct MCV MCH MCHC RDW Plt Count MPV Absolute Neuts (auto) Neutrophils % Lymphocytes % Monocytes % Eosinophils % Basophils % Nucleated RBC % Sodium Potassium Chloride Carbon Dioxide Anion Gap BUN Creatinine Creat Clearance w eGFR POC Glucometer 146 157 137 Random Glucose Calcium Total Bilirubin AST ALT Alkaline Phosphatase Total Protein Albumin 07/23/18 07/23/18 07/23/18 06:00 06:00 11:36 WBC 10.5 H RBC 3.54 L Hgb 8.1 L Hct 25.3 L MCV 71.6 L MCH 22.8 L MCHC 31.8 L RDW 25.0 H Plt Count 247 MPV 9.6 Absolute Neuts (auto) 8.5 H Neutrophils % 81.2 Lymphocytes % 9.4 D Monocytes % 6.6 Eosinophils % 2.2 D Basophils % 0.6 Nucleated RBC % 0 Sodium 139 Potassium 3.2 L Chloride 107 Carbon Dioxide 24 Anion Gap 8 BUN 20 H Creatinine 0.8 Creat Clearance w eGFR > 60 POC Glucometer 188 Random Glucose 115 H Calcium 8.0 L Total Bilirubin 1.1 H AST 26 ALT 37 Alkaline Phosphatase 627 H Total Protein 6.3 L Albumin 2.2 L Active Medications Generic Name Dose Route Start Last Admin Trade Name Freq PRN Reason Stop Dose Admin Acetaminophen 650 mg 07/15/18 04:16 07/22/18 21:39 Tylenol - PO 650 mg Q6H PRN Administration FOR TEMP. OF 100 OR GREATER Finasteride 5 mg 07/15/18 10:00 07/23/18 10:04 Proscar - PO 5 mg DAILY LIT Administration Heparin Sodium (Porcine) 5,000 unit 07/15/18 10:00 07/23/18 10:04 Heparin - SQ 5,000 unit BID LIT Administration IV Flush 10 ml 07/18/18 05:32 07/23/18 10:49 Carmela-Cath Flush IVPUSH 10 ml PRN PRN Administration protocol; maintain patency Ertapenem 1 gm/ Sodium 50 mls @ 100 mls/hr 07/21/18 13:00 07/23/18 10:04 Chloride IVPB 100 mls/hr DAILY LIT Administration Fluconazole 100 mls @ 100 mls/hr 07/23/18 12:00 Diflucan 200 Mg/D5w Premixed Ivpb - IVPB 07/23/18 13:28 Q1H LIT Insulin Aspart 1 vial 07/18/18 16:30 07/23/18 11:40 Novolog Vial Sliding Scale - SQ 2 units ACHS LIT Administration Protocol Metformin HCl 500 mg 07/23/18 07:00 07/23/18 06:17 Glucophage - PO 500 mg BID@0700,1630 LIT Administration Metoprolol Succinate 100 mg 07/15/18 10:00 07/23/18 10:04 Toprol Xl - PO 100 mg DAILY LIT Administration Multivitamins/Minerals 1 each 07/15/18 10:00 07/23/18 10:04 Theragran-M PO 1 each DAILY LIT Administration Nifedipine 30 mg 07/15/18 10:00 07/23/18 10:04 Procardia Xl - PO 30 mg DAILY LIT Administration Tamsulosin HCl 0.4 mg 07/15/18 08:30 07/23/18 10:04 Flomax - PO 0.4 mg DAILY@0830 LIT Administration Zolpidem Tartrate 5 mg 07/21/18 19:14 07/22/18 21:48 Ambien - PO 5 mg HS PRN Administration INSOMNIA ASSESSMENT/PLAN 78 year-old male with a PMH significant for HTN, NIDDM, metastatic bladder cancer, KARTHIKEYAN on CKD secondary to bladder outlet obstruction, ESBL UTI, and left renal staghorn calculus s/p percutaneous nephrostomy tubes. Left renal staghorn calculus s/p percutaneous nephrostomy tubes on 07/18 --POD #5 --nephrostomy tubes putting out large amounts of yellow urine, 5.6L yesterday , 2.8L today so far --plan is to remove tubes tomorrow and place stent --continue tamsulosin, finasteride KARTHIKEYAN on CKD, resolved --Cr 2.2 on admission, 0.8 today ESBL UTI --continue ertapenem --ID following Hypertension --BP stable --continue Toprol XL, nifedipine NIDDM --continue metformin --Novolog sliding scale coverage Hypokalemia --repleted Stage I pressure ulcers --right buttock and intergluteal fold --apply Allevyn sacral dressing --reposition q2h, oob, ambulation FEN Fluids: PO intake adequate Electrolytes: replete as indicated Nutrition: diabetic diet; NPO after midnight Physical therapy DVT prophylaxis: stopped subq heparin prior to procedure, last dose 07/23 at 10am ; SCDs Dispo: continues to require inpatient care. Full code. Visit type - Emergency Visit Emergency Visit: Yes ED Registration Date: 07/14/18 Care time: The patient presented to the Emergency Department on the above date and was hospitalized for further evaluation of their emergent condition. - New Patient This patient is new to me today: Yes Date on this admission: 07/23/18 - Critical Care Critical Care patient: No
[2018-07-23] MEDS: FLUCONAZOLE 200 MG/D5W 100 ML IVPB SCH ×2 (13:37→14:30)
[2018-07-23] MEDS: POTASSIUM CHLORIDE TABS 20 MEQ TABLET.ER (FP) PO SCH ×2 (13:44→18:36)
[2018-07-23] MEDS: ZOLPIDEM TARTRATE 5 MG TABLET PO PRN (22:53)
[2018-07-24] MEDS: metFORMIN HCL 500 MG TABLET (FP) PO SCH ×2 (06:34→18:41)
[2018-07-24] MEDS: INSULIN SLIDING SCALE (NOVOLOG) 1 VIAL SQ SCH ×4 (06:34→22:01)
[2018-07-24 08:11] LABS: ALBUMIN 2.2 g/dl (3.4-5.0); ALK PHOS 771 U/L (45-117); ANION GAP 9 MMOL/L (8-16); BILIRUBIN,TOTAL 0.9 mg/dL (0.2-1); BLOOD UREA NITROGEN 20 mg/dL (7-18); CALCIUM 7.8 mg/dL (8.5-10.1); CHLORIDE 106 mmol/L (98-107); CO2 24 mmol/L (21-32); CREATININE 0.7 mg/dL (0.55-1.3); GLUCOSE,RANDOM 123 mg/dL (74-106); POTASSIUM 3.7 mmol/L (3.5-5.1); SGOT/AST 42 U/L (15-37); SGPT/ALT 46 U/L (13-61); SODIUM 138 mmol/L (136-145); TOT PROT 6.4 g/dl (6.4-8.2)
[2018-07-24] MEDS ORDERED: PT OWN MED DRAWER 7, Y5N ONE (10:45)
[2018-07-24] MEDS: ERTAPENEM SODIUM 1 GM in SODIUM CHLORIDE 50 ML IVPB SCH (10:51)
[2018-07-24] MEDS: TAMSULOSIN HCL 0.4 MG CAP PO SCH (12:12)
[2018-07-24] MEDS: FINASTERIDE 5 MG TABLET (FP) PO SCH (12:13)
[2018-07-24] MEDS: NIFEdipine E.R. 30 MG TABLET (FP) PO SCH (12:13)
[2018-07-24] MEDS ORDERED: PROPOFOL 20 ML ONE (13:11)
--- NOTE | 2018-07-24 14:06 | PN ---
Progress Note, Physician History of Present Illness: patient stable no new issues plan for or today no complaints - Current Medication List Current Medications: Active Medications Acetaminophen (Tylenol -) 650 mg PO Q6H PRN PRN Reason: FOR TEMP. OF 100 OR GREATER Last Admin: 07/22/18 21:39 Dose: 650 mg Finasteride (Proscar -) 5 mg PO DAILY [facility] Last Admin: 07/24/18 12:13 Dose: 5 mg IV Flush (Carmela-Cath Flush) 10 ml IVPUSH PRN PRN PRN Reason: protocol; maintain patency Last Admin: 07/23/18 10:49 Dose: 10 ml Ertapenem 1 gm/ Sodium (Chloride) 50 mls @ 100 mls/hr IVPB DAILY [facility] Last Admin: 07/24/18 10:51 Dose: 100 mls/hr Insulin Aspart (Novolog Vial Sliding Scale -) 1 vial SQ ACHS [facility]; Protocol Last Admin: 07/24/18 12:03 Dose: Not Given Metformin HCl (Glucophage -) 500 mg PO BID@0700,1630 [facility] Last Admin: 07/24/18 06:34 Dose: Not Given Metoprolol Succinate (Toprol Xl -) 100 mg PO DAILY [facility] Last Admin: 07/24/18 12:13 Dose: 100 mg Multivitamins/Minerals (Theragran-M) 1 each PO DAILY [facility] Last Admin: 07/23/18 10:04 Dose: 1 each Nifedipine (Procardia Xl -) 30 mg PO DAILY [facility] Last Admin: 07/24/18 12:13 Dose: 30 mg Tamsulosin HCl (Flomax -) 0.4 mg PO DAILY@0830 [facility] Last Admin: 07/24/18 12:12 Dose: 0.4 mg Zolpidem Tartrate (Ambien -) 5 mg PO HS PRN PRN Reason: INSOMNIA Last Admin: 07/23/18 22:53 Dose: 5 mg - Objective Vital Signs: Vital Signs Temperature 98.7 F 07/24/18 06:03 Pulse Rate 91 H 07/24/18 08:56 Respiratory Rate 17 07/24/18 08:56 Blood Pressure 121/84 07/24/18 08:56 O2 Sat by Pulse Oximetry (%) 97 07/23/18 21:00 Constitutional: Yes: No Distress, Calm Cardiovascular: Yes: Regular Rate and Rhythm Gastrointestinal: Yes: Normal Bowel Sounds, Soft Genitourinary: Yes: Rahman Present, Other (b/l nephrostomy tubes) Musculoskeletal: Yes: WNL Extremities: Yes: WNL Neurological: Yes: Alert, Oriented Psychiatric: Yes: Alert, Oriented Labs: CBC, BMP 07/23/18 06:00 07/24/18 06:15 INR, PTT INR 1.26 (0.83-1.09) H 07/14/18 21:35 Assessment/Plan Problem List - Problems (1) KARTHIKEYAN (acute kidney injury) Code(s): N17.9 - ACUTE KIDNEY FAILURE, UNSPECIFIED (2) Anemia Code(s): D64.9 - ANEMIA, UNSPECIFIED (3) Lactic acidosis Code(s): E87.2 - ACIDOSIS (4) 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 Code(s): C79.9 - SECONDARY MALIGNANT NEOPLASM OF UNSPECIFIED SITE; C67.9 - MALIGNANT NEOPLASM OF BLADDER, UNSPECIFIED (5) BPH (benign prostatic hyperplasia) Code(s): N40.0 - BENIGN PROSTATIC HYPERPLASIA WITHOUT LOWER URINRY TRACT SYMP (6) Diabetes Code(s): E11.9 - TYPE 2 DIABETES MELLITUS WITHOUT COMPLICATIONS (7) Fever Code(s): R50.9 - FEVER, UNSPECIFIED Qualifiers: Fever type: unspecified Qualified Code(s): R50.9 - Fever, unspecified (8) HLD (hyperlipidemia) Code(s): E78.5 - HYPERLIPIDEMIA, UNSPECIFIED (9) Hypertension Code(s): I10 - ESSENTIAL (PRIMARY) HYPERTENSION Qualifiers: Hypertension type: other secondary hypertension Qualified Code(s): I15.8 - Other secondary hypertension (10) Sepsis Code(s): A41.9 - SEPSIS, UNSPECIFIED ORGANISM Qualifiers: Sepsis type: sepsis due to unspecified organism Qualified Code(s): A41.9 - Sepsis, unspecified organism (11) UTI (urinary tract infection) Code(s): N39.0 - URINARY TRACT INFECTION, SITE NOT SPECIFIED Assessment/Plan This is a 78 y.o. male with PMH of Metastatic Bladder CA (s/p chemotherapy over 3 wks ago) , currently with port in place, s/p urinary stent removal prior to last admission , DM, HTN, urinary retention s/p stent/rahman removal, s/p recent treatment for Sepsis due to ESBL + Klebsiella UTI/Bacteremia , and s/p TURP presenting with fever/weakness Sepsis b/l hydronephrosis Obstructive uropathy Met Bladder CA KARTHIKEYAN Urinary retention s/p TURP s/p UTI/Bacteremia DM plan will cover him with abx for the procedure rest continue current mgmt if patient stable will deescalate after the procedure
--- NOTE | 2018-07-24 15:36 | PN ---
Physical Exam: SUBJECTIVE: Patient seen and examined at bedside. No overnight events. No new complaints. OBJECTIVE: Vital Signs Period Temp Pulse Resp BP Sys/Benjamin Pulse Ox Last 24 Hr 98.6 F-99.3 F 84-98 17-20 111-123/68-87 97 GENERAL: AAOx3, NAD LUNGS: CTAB, no wheezes, no crackles, no accessory muscle use. HEART: Regular rate and rhythm, S1, S2 without murmur, rub or gallop. ABDOMEN: Soft, NTNS, NABS, no guarding, no rebound, no hepatosplenomegaly, no masses. EXTREMITIES: 2+ pulses, warm, well-perfused, no edema. NEUROLOGICAL: Cranial nerves II through XII grossly intact. Normal speech, gait not observed. PSYCH: Normal mood, normal affect. SKIN: Warm, dry, normal turgor, no rashes or lesions noted Laboratory Results - last 24 hr 07/23/18 07/23/18 07/24/18 17:17 21:21 06:15 Sodium 138 Potassium 3.7 Chloride 106 Carbon Dioxide 24 Anion Gap 9 BUN 20 H Creatinine 0.7 Creat Clearance w eGFR > 60 POC Glucometer 126 214 Random Glucose 123 H Calcium 7.8 L Total Bilirubin 0.9 AST 42 H ALT 46 Alkaline Phosphatase 771 H Total Protein 6.4 Albumin 2.2 L 07/24/18 07/24/18 06:33 11:44 Sodium Potassium Chloride Carbon Dioxide Anion Gap BUN Creatinine Creat Clearance w eGFR POC Glucometer 142 134 Random Glucose Calcium Total Bilirubin AST ALT Alkaline Phosphatase Total Protein Albumin Active Medications Generic Name Dose Route Start Last Admin Trade Name Freq PRN Reason Stop Dose Admin Acetaminophen 650 mg 07/15/18 04:16 07/22/18 21:39 Tylenol - PO 650 mg Q6H PRN Administration FOR TEMP. OF 100 OR GREATER Fentanyl 25 mcg 07/24/18 15:06 Sublimaze Injection - IVPUSH [id number] PRN PAIN-PACU ORDER X 4 DOSES ONLY Finasteride 5 mg 07/15/18 10:00 07/24/18 12:13 Proscar - PO 5 mg DAILY LIT Administration IV Flush 10 ml 07/18/18 05:32 07/23/18 10:49 Carmela-Cath Flush IVPUSH 10 ml PRN PRN Administration protocol; maintain patency Ertapenem 1 gm/ Sodium 50 mls @ 100 mls/hr 07/21/18 13:00 07/24/18 10:51 Chloride IVPB 100 mls/hr DAILY LIT Administration Insulin Aspart 1 vial 07/18/18 16:30 07/24/18 12:03 Novolog Vial Sliding Scale - SQ Not Given ACHS [facility] Protocol Metformin HCl 500 mg 07/23/18 07:00 07/24/18 06:34 Glucophage - PO Not Given BID@0700,1630 [facility] Metoprolol Succinate 100 mg 07/15/18 10:00 07/24/18 12:13 Toprol Xl - PO 100 mg DAILY LIT Administration Multivitamins/Minerals 1 each 07/15/18 10:00 07/23/18 10:04 Theragran-M PO 1 each DAILY LIT Administration Nifedipine 30 mg 07/15/18 10:00 07/24/18 12:13 Procardia Xl - PO 30 mg DAILY LIT Administration Tamsulosin HCl 0.4 mg 07/15/18 08:30 07/24/18 12:12 Flomax - PO 0.4 mg DAILY@0830 LIT Administration Zolpidem Tartrate 5 mg 07/21/18 19:14 07/23/18 22:53 Ambien - PO 5 mg HS PRN Administration INSOMNIA ASSESSMENT/PLAN: Problem List - Problems (1) 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 (2) Acute on chronic renal failure Assessment/Plan: renal function inproving. * Bilateral Hydronephrosis seen on US * Bladder scan NM showed obstruction. * Nephrostomy tube removal and stent placement today. Qualifiers: Acute renal failure type: unspecified Chronic kidney disease stage: stage 3 (moderate) Qualified Code(s): N17.9 - Acute kidney failure, unspecified; N18.3 - Chronic kidney disease, stage 3 (moderate) (3) Sepsis Assessment/Plan: ESBL UTI as the cause. * continue IVF * Ertapenem as per ID. (4) UTI (urinary tract infection) Qualifiers: Urinary tract infection type: catheter-associated UTI Indwelling urinary catheter type: indwelling urethral catheter Encounter type: initial encounter Qualified Code(s): T83.511A - Infection and inflammatory reaction due to indwelling urethral catheter, initial encounter; N39.0 - Urinary tract infection , site not specified (5) Anemia Assessment/Plan: secondary to chronic kidney disease * No further w/u at this time. Visit type - Emergency Visit Emergency Visit: Yes ED Registration Date: 07/14/18 Care time: The patient presented to the Emergency Department on the above date and was hospitalized for further evaluation of their emergent condition. - New Patient This patient is new to me today: No - Critical Care Critical Care patient: No
[2018-07-24] MEDS: MULTIVITAMINS THER W-MINERALS COMBO TABLET (FP) PO SCH (15:55)
--- NOTE | 2018-07-24 16:12 | OP ---
Operative Note - Note: Operative Date: 07/24/18 Pre-Operative Diagnosis: Ca of the Bladder Bilateral Hydronephrosis Operation: Cysto removal of stents and replaced right stent Findings: Ca of the bladder with severe cystitic changes Surgeon: Crystal Burciaga Anesthesia: General Operative Report Dictated: Yes
[2018-07-24] MEDS ORDERED: METOCLOPRAMIDE HCL 5 MG/5 ML UNIT DOSE CUP PO PRN (16:38)
[2018-07-24] MEDS ORDERED: INSULIN (NOVOLOG) ASPART 100 UNITS/ML 10ML VIAL ONE (20:38)
--- NOTE | 2018-07-24 22:02 | PN ---
Progress Note, Physician History of Present Illness: Pt tolerated procedure - Current Medication List Current Medications: Active Medications Acetaminophen (Tylenol -) 650 mg PO Q6H PRN PRN Reason: FOR TEMP. OF 100 OR GREATER Finasteride (Proscar -) 5 mg PO DAILY [facility] IV Flush (Carmela-Cath Flush) 10 ml IVPUSH PRN PRN PRN Reason: protocol; maintain patency Ertapenem 1 gm/ Sodium (Chloride) 50 mls @ 100 mls/hr IVPB DAILY [facility] Insulin Aspart (Novolog Vial Sliding Scale -) 1 vial SQ ACHS [facility]; Protocol Metformin HCl (Glucophage -) 500 mg PO BID@0700,1630 [facility] Metoclopramide HCl (Reglan Oral Solution -) 5 mg PO BID PRN PRN Reason: NAUSEA Metoprolol Succinate (Toprol Xl -) 100 mg PO DAILY [facility] Multivitamins/Minerals (Theragran-M) 1 each PO DAILY [facility] Nifedipine (Procardia Xl -) 30 mg PO DAILY [facility] Tamsulosin HCl (Flomax -) 0.4 mg PO DAILY@0830 [facility] Zolpidem Tartrate (Ambien -) 5 mg PO HS PRN PRN Reason: INSOMNIA - Objective Vital Signs: Vital Signs Temperature 97.6 F 07/24/18 18:10 Pulse Rate 88 07/24/18 18:10 Respiratory Rate 18 07/24/18 18:10 Blood Pressure 130/90 07/24/18 18:10 O2 Sat by Pulse Oximetry (%) 98 07/24/18 16:00 Neck: Yes: WNL, Supple Cardiovascular: Yes: WNL, Regular Rate and Rhythm Respiratory: Yes: WNL, Regular, CTA Bilaterally Gastrointestinal: Yes: WNL, Normal Bowel Sounds, Soft Genitourinary: Yes: Other ((+) Lt nephrostoy tube) Labs: CBC, BMP 07/23/18 06:00 07/24/18 06:15 INR, PTT INR 1.26 (0.83-1.09) H 07/14/18 21:35 Problem List - Problems (1) 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 Assessment/Plan: Pt had Rt renal stent placed today (+) Lt nephrostomy tube draining Code(s): C79.9 - SECONDARY MALIGNANT NEOPLASM OF UNSPECIFIED SITE; C67.9 - MALIGNANT NEOPLASM OF BLADDER, UNSPECIFIED (2) Sepsis Assessment/Plan: Urine culture (+) for yeast Pt given dose of IV diflucan Cont IV ertapenem ddue to H/O ESBL Code(s): A41.9 - SEPSIS, UNSPECIFIED ORGANISM Qualifiers: Sepsis type: sepsis due to unspecified organism Qualified Code(s): A41.9 - Sepsis, unspecified organism (3) Acute on chronic renal failure Assessment/Plan: Cont IVF Creatinine is now at baseline Cont lt nephrostomy tube due to obstruction Code(s): N17.9 - ACUTE KIDNEY FAILURE, UNSPECIFIED; N18.9 - CHRONIC KIDNEY DISEASE, UNSPECIFIED Qualifiers: Acute renal failure type: unspecified Chronic kidney disease stage: stage 3 (moderate) Qualified Code(s): N17.9 - Acute kidney failure, unspecified; N18.3 - Chronic kidney disease, stage 3 (moderate) (4) Anemia Assessment/Plan: Monitor H/H S/P transfusion PRBC's Code(s): D64.9 - ANEMIA, UNSPECIFIED Qualifiers: Anemia type: due to chronic kidney disease Chronic kidney disease stage: stage 3 (moderate) Qualified Code(s): N18.3 - Chronic kidney disease, stage 3 (moderate); D63.1 - Anemia in chronic kidney disease (5) BPH (benign prostatic hyperplasia) Code(s): N40.0 - BENIGN PROSTATIC HYPERPLASIA WITHOUT LOWER URINRY TRACT SYMP (6) Diabetes Assessment/Plan: Cont metformin Cont sliding scale w/ coverage Code(s): E11.9 - TYPE 2 DIABETES MELLITUS WITHOUT COMPLICATIONS (7) HLD (hyperlipidemia) Code(s): E78.5 - HYPERLIPIDEMIA, UNSPECIFIED (8) Hypertension Assessment/Plan: Cont metoprolol BP Stable Code(s): I10 - ESSENTIAL (PRIMARY) HYPERTENSION Qualifiers: Hypertension type: other secondary hypertension Qualified Code(s): I15.8 - Other secondary hypertension
[2018-07-24] MEDS: ZOLPIDEM TARTRATE 5 MG TABLET PO PRN (22:09)
--- NOTE | 2018-07-24 23:28 | PN ---
Progress Note (short form) - Note Progress Note: PAtient seen and examined s/p bilateral percutaneous nephrostomies---replacement of right stent today getting PRBCs AFVSS Cor: RSR, No murmurs, No gallops Lungs: decreased at bases Abd: Soft, Normal bowel sounds, No organomegaly Ext:No significant edema Labs/Meds reviewed A/P This is a 78 y.o. male with PMH of Metastatic Bladder CA (s/p C4 gemzar/ carboplatin 06/22/18) , currently with port in place, s/p urinary stent removal06/21 , s/p floley removal on 07/10/18 , DM, HTN, urinary retention s/p stent/ rahman removal, s/p recent treatment for Sepsis due to ESBL + Klebsiella UTI/ Bacteremia , and s/p TURP presenting with fever/weakness Also with acute renal failure, new since 07/05/18 Obstructive uropathy/acute renal failure s/p percutaneous nephrostomie/replacement of right stent Anemia of chronic disease transfuse 1 unit PRBCs monitor renal function
[2018-07-25] MEDS: ACETAMINOPHEN 325 MG TABLET (FP) PO PRN (01:26)
[2018-07-25] MEDS: PORTA CATH FLUSH 10 ML IVPUSH PRN (06:40)
[2018-07-25] MEDS: INSULIN SLIDING SCALE (NOVOLOG) 1 VIAL SQ SCH ×4 (06:46→22:19)
[2018-07-25] MEDS: metFORMIN HCL 500 MG TABLET (FP) PO SCH ×2 (06:46→17:59)
[2018-07-25 07:19] LABS: BASO % 0.4 % (0-2.0); EOS % 0.5 % (0-4.5); HEMATOCRIT 24.6 % (35.4-49); LYMPH % 8.2 % (8-40); MCH 23.1 pg (25.7-33.7); MCHC 32.4 g/dl (32.0-35.9); MEAN CELL VOLUME 71.3 fl (80-96); MEAN PLT VOLUME 9.1 fl (7.5-11.1); MONO % 4.7 % (3.8-10.2); NEUT % 86.2 % (42.8-82.8); PLATELET COUNT 266 K/MM3 (134-434); RBC 3.46 M/mm3 (4.00-5.60); RDW 25.2 % (11.9-15.9); WHITE BLOOD COUNT 9.9 K/mm3 (4.0-10.0)
[2018-07-25 08:13] LABS: ALBUMIN 2.1 g/dl (3.4-5.0); ALK PHOS 702 U/L (45-117); ANION GAP 8 MMOL/L (8-16); BILIRUBIN,TOTAL 0.7 mg/dL (0.2-1); BLOOD UREA NITROGEN 26 mg/dL (7-18); CALCIUM 8.1 mg/dL (8.5-10.1); CHLORIDE 104 mmol/L (98-107); CO2 26 mmol/L (21-32); CREATININE 0.8 mg/dL (0.55-1.3); GLUCOSE,RANDOM 117 mg/dL (74-106); POTASSIUM 3.9 mmol/L (3.5-5.1); SGOT/AST 27 U/L (15-37); SGPT/ALT 40 U/L (13-61); SODIUM 138 mmol/L (136-145); TOT PROT 6.4 g/dl (6.4-8.2)
--- NOTE | 2018-07-25 08:15 | OP ---
DATE OF OPERATION: 07/24/2018 SURGEON: Crystal Burciaga MD ANESTHESIA: General. PREOPERATIVE DIAGNOSES: Bilateral hydronephrosis, cancer of the bladder. PROCEDURE: Removal of stents and replacement of the stent on the right side. FINDINGS: Bladder shows marked edema, areas of severe cystitic changes noted. Both ureteral orifices visualized through the protruding stent. DESCRIPTION OF PROCEDURE: Patient, in lithotomy position under anesthesia, was prepped and draped in the usual manner. Using 22 scope, cystoscopy performed, and with considerable difficulty, a guidewire was placed past the previously placed stent. Then, the stent was removed, and a new stent was introduced on the right side. A similar procedure was attempted on the left side, but a guidewire could not be passed either through the stent or alongside the stent. Severe obstruction encountered in the middle of the mid-ureter. Then, the stent was removed. An attempt was made to pass the guidewire past the area, but multiple concrete calcium deposits noted in the ureter and it could not be bypassed. At this point, since the patient already has a percutaneous nephrostomy on both sides, too much attempt was not made, and when the patient is a little better, we will replace the stent if need be through the percutaneous nephrostomy. So, instrument was withdrawn. Patient tolerated the procedure well, left the operating room in satisfactory condition. CRYSTAL BURCIAGA M.D. DYLAN/[id number]
[2018-07-25] MEDS ORDERED: ERTAPENEM SODIUM 1 GM in SODIUM CHLORIDE 50 ML IVPB SCH (10:00)
[2018-07-25] MEDS: MULTIVITAMINS THER W-MINERALS COMBO TABLET (FP) PO SCH (10:20)
[2018-07-25] MEDS: FINASTERIDE 5 MG TABLET (FP) PO SCH (10:21)
[2018-07-25] MEDS: TAMSULOSIN HCL 0.4 MG CAP PO SCH (10:21)
[2018-07-25] MEDS: NIFEdipine E.R. 30 MG TABLET (FP) PO SCH (10:28)
[2018-07-25] MEDS ORDERED: PT OWN MED DRAWER 7, Y5N ONE (10:39)
--- NOTE | 2018-07-25 10:46 | PN ---
Progress Note, Physician Chief Complaint: s/p cystoscopy bilateral stent removal and right stent placement under general anesthesia History of Present Illness: post op day one - Current Medication List Current Medications: Active Medications Acetaminophen (Tylenol -) 650 mg PO Q6H PRN PRN Reason: FOR TEMP. OF 100 OR GREATER Last Admin: 07/25/18 01:26 Dose: 650 mg Finasteride (Proscar -) 5 mg PO DAILY [facility] Last Admin: 07/25/18 10:21 Dose: 5 mg IV Flush (Carmela-Cath Flush) 10 ml IVPUSH PRN PRN PRN Reason: protocol; maintain patency Last Admin: 07/25/18 06:40 Dose: 10 ml Ertapenem 1 gm/ Sodium (Chloride) 50 mls @ 100 mls/hr IVPB DAILY [facility] Last Admin: 07/25/18 10:42 Dose: 100 mls/hr Insulin Aspart (Novolog Vial Sliding Scale -) 1 vial SQ ACHS [facility]; Protocol Last Admin: 07/25/18 06:46 Dose: Not Given Metformin HCl (Glucophage -) 500 mg PO BID@0700,1630 [facility] Last Admin: 07/25/18 06:46 Dose: 500 mg Metoclopramide HCl (Reglan Oral Solution -) 5 mg PO BID PRN PRN Reason: NAUSEA Metoprolol Succinate (Toprol Xl -) 100 mg PO DAILY [facility] Last Admin: 07/25/18 10:21 Dose: 100 mg Multivitamins/Minerals (Theragran-M) 1 each PO DAILY [facility] Last Admin: 07/25/18 10:20 Dose: 1 each Nifedipine (Procardia Xl -) 30 mg PO DAILY [facility] Last Admin: 07/25/18 10:28 Dose: 30 mg Tamsulosin HCl (Flomax -) 0.4 mg PO DAILY@0830 [facility] Last Admin: 07/25/18 10:21 Dose: 0.4 mg Zolpidem Tartrate (Ambien -) 5 mg PO HS PRN PRN Reason: INSOMNIA Last Admin: 07/24/18 22:09 Dose: 5 mg - Objective Vital Signs: Vital Signs Temperature 97.7 F 07/25/18 08:56 Pulse Rate 82 07/25/18 08:56 Respiratory Rate 16 07/25/18 08:56 Blood Pressure 125/86 07/25/18 08:56 O2 Sat by Pulse Oximetry (%) 98 10/08/18 21:00 Constitutional: Yes: Well Nourished Cardiovascular: Yes: WNL Respiratory: Yes: WNL Gastrointestinal: Yes: WNL Labs: CBC, BMP 07/25/18 06:40 07/25/18 06:40 INR, PTT INR 1.26 (0.83-1.09) H 07/14/18 21:35 Assessment/Plan no complications from anesthetic, dept of anesthesia will sign off care at this time
[2018-07-25 10:59] LABS: ANISOCYTOSIS 1+; MACROCYTOSIS 1+; OVALOCYTE 1+; PLATELET ESTIMATE NORMAL; TARGET CELLS 1+
[2018-07-25] MEDS ORDERED: INSULIN (NOVOLOG) ASPART 100 UNITS/ML 10ML VIAL ONE (12:49)
--- NOTE | 2018-07-25 14:39 | PN ---
Progress Note, Physician History of Present Illness: doing well no complaints had a rt sided stent placed still with b/l nephrostomy tube and foleys catheter - Current Medication List Current Medications: Active Medications Acetaminophen (Tylenol -) 650 mg PO Q6H PRN PRN Reason: FOR TEMP. OF 100 OR GREATER Last Admin: 07/25/18 01:26 Dose: 650 mg Finasteride (Proscar -) 5 mg PO DAILY [facility] Last Admin: 07/25/18 10:21 Dose: 5 mg Fluconazole (Diflucan -) 100 mg PO DAILY [facility] IV Flush (Carmela-Cath Flush) 10 ml IVPUSH PRN PRN PRN Reason: protocol; maintain patency Last Admin: 07/25/18 06:40 Dose: 10 ml Insulin Aspart (Novolog Vial Sliding Scale -) 1 vial SQ ACHS [facility]; Protocol Last Admin: 07/25/18 12:50 Dose: 2 units Metformin HCl (Glucophage -) 500 mg PO BID@0700,1630 [facility] Last Admin: 07/25/18 06:46 Dose: 500 mg Metoclopramide HCl (Reglan Oral Solution -) 5 mg PO BID PRN PRN Reason: NAUSEA Metoprolol Succinate (Toprol Xl -) 100 mg PO DAILY [facility] Last Admin: 07/25/18 10:21 Dose: 100 mg Multivitamins/Minerals (Theragran-M) 1 each PO DAILY [facility] Last Admin: 07/25/18 10:20 Dose: 1 each Nifedipine (Procardia Xl -) 30 mg PO DAILY [facility] Last Admin: 07/25/18 10:28 Dose: 30 mg Tamsulosin HCl (Flomax -) 0.4 mg PO DAILY@0830 [facility] Last Admin: 07/25/18 10:21 Dose: 0.4 mg Zolpidem Tartrate (Ambien -) 5 mg PO HS PRN PRN Reason: INSOMNIA Last Admin: 07/24/18 22:09 Dose: 5 mg - Objective Vital Signs: Vital Signs Temperature 97.7 F 07/25/18 10:00 Pulse Rate 82 07/25/18 10:00 Respiratory Rate 16 07/25/18 10:00 Blood Pressure 125/86 07/25/18 10:00 O2 Sat by Pulse Oximetry (%) 98 07/24/18 21:00 Constitutional: Yes: No Distress, Calm Cardiovascular: Yes: Regular Rate and Rhythm Respiratory: Yes: Regular, CTA Bilaterally Gastrointestinal: Yes: Normal Bowel Sounds, Soft Genitourinary: Yes: Rahman Present, Other (b/l nephrostomy tube place) Musculoskeletal: Yes: WNL Extremities: Yes: WNL Neurological: Yes: Alert, Oriented Psychiatric: Yes: Alert, Oriented Labs: CBC, BMP 07/25/18 06:40 07/25/18 06:40 INR, PTT INR 1.26 (0.83-1.09) H 07/14/18 21:35 Assessment/Plan Problem List - Problems (1) KARTHIKEYAN (acute kidney injury) Code(s): N17.9 - ACUTE KIDNEY FAILURE, UNSPECIFIED (2) Anemia Code(s): D64.9 - ANEMIA, UNSPECIFIED (3) Lactic acidosis Code(s): E87.2 - ACIDOSIS (4) 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 Code(s): C79.9 - SECONDARY MALIGNANT NEOPLASM OF UNSPECIFIED SITE; C67.9 - MALIGNANT NEOPLASM OF BLADDER, UNSPECIFIED (5) BPH (benign prostatic hyperplasia) Code(s): N40.0 - BENIGN PROSTATIC HYPERPLASIA WITHOUT LOWER URINRY TRACT SYMP (6) Diabetes Code(s): E11.9 - TYPE 2 DIABETES MELLITUS WITHOUT COMPLICATIONS (7) Fever Code(s): R50.9 - FEVER, UNSPECIFIED Qualifiers: Fever type: unspecified Qualified Code(s): R50.9 - Fever, unspecified (8) HLD (hyperlipidemia) Code(s): E78.5 - HYPERLIPIDEMIA, UNSPECIFIED (9) Hypertension Code(s): I10 - ESSENTIAL (PRIMARY) HYPERTENSION Qualifiers: Hypertension type: other secondary hypertension Qualified Code(s): I15.8 - Other secondary hypertension (10) Sepsis Code(s): A41.9 - SEPSIS, UNSPECIFIED ORGANISM Qualifiers: Sepsis type: sepsis due to unspecified organism Qualified Code(s): A41.9 - Sepsis, unspecified organism (11) UTI (urinary tract infection) Code(s): N39.0 - URINARY TRACT INFECTION, SITE NOT SPECIFIED Assessment/Plan This is a 78 y.o. male with PMH of Metastatic Bladder CA (s/p chemotherapy over 3 wks ago) , currently with port in place, s/p urinary stent removal prior to last admission , DM, HTN, urinary retention s/p stent/rahman removal, s/p recent treatment for Sepsis due to ESBL + Klebsiella UTI/Bacteremia , and s/p TURP presenting with fever/weakness Sepsis b/l hydronephrosis Obstructive uropathy Met Bladder CA KARTHIKEYAN Urinary retention s/p TURP s/p UTI/Bacteremia DM all cx reports noted plan stop abx cx results noted will continue diflucan rest as per the team
--- NOTE | 2018-07-25 16:23 | PN ---
Progress Note (short form) - Note Progress Note: Renal Follow up for KARTHIKEYAN Pt seen and examined at the bedside no acute complaints making urina via nephrostomy tubes and rahman no sob, cp, abd pain, N/V/D Vital Signs Temperature 98.0 F 07/25/18 14:52 Pulse Rate 89 07/25/18 14:52 Respiratory Rate 18 07/25/18 14:52 Blood Pressure 127/75 07/25/18 14:52 O2 Sat by Pulse Oximetry (%) 98 07/24/18 21:00 Intake & Output 07/22/18 07/23/18 07/24/18 07/25/18 23:59 23:59 23:59 23:59 Intake Total 1400 1400 1150 Output Total 5650 4350 2800 1575 Balance -4250 -2950 -1650 -1575 NAD MMM, No JVD RRR, NO M/R CTA soft NT/ND no bladder distension CBC, BMP 07/25/18 06:40 07/25/18 06:40 Current Medications Acetaminophen (Tylenol -) 650 mg PO Q6H PRN PRN Reason: FOR TEMP. OF 100 OR GREATER Last Admin: 07/25/18 01:26 Dose: 650 mg Finasteride (Proscar -) 5 mg PO DAILY [facility] Last Admin: 07/25/18 10:21 Dose: 5 mg Fluconazole (Diflucan -) 100 mg PO DAILY [facility] IV Flush (Carmela-Cath Flush) 10 ml IVPUSH PRN PRN PRN Reason: protocol; maintain patency Last Admin: 07/25/18 06:40 Dose: 10 ml Insulin Aspart (Novolog Vial Sliding Scale -) 1 vial SQ ACHS [facility]; Protocol Last Admin: 07/25/18 12:50 Dose: 2 units Metformin HCl (Glucophage -) 500 mg PO BID@0700,1630 [facility] Last Admin: 07/25/18 06:46 Dose: 500 mg Metoclopramide HCl (Reglan Oral Solution -) 5 mg PO BID PRN PRN Reason: NAUSEA Metoprolol Succinate (Toprol Xl -) 100 mg PO DAILY [facility] Last Admin: 07/25/18 10:21 Dose: 100 mg Multivitamins/Minerals (Theragran-M) 1 each PO DAILY [facility] Last Admin: 07/25/18 10:20 Dose: 1 each Nifedipine (Procardia Xl -) 30 mg PO DAILY [facility] Last Admin: 07/25/18 10:28 Dose: 30 mg Tamsulosin HCl (Flomax -) 0.4 mg PO DAILY@0830 [facility] Last Admin: 07/25/18 10:21 Dose: 0.4 mg Zolpidem Tartrate (Ambien -) 5 mg PO HS PRN PRN Reason: INSOMNIA Last Admin: 07/24/18 22:09 Dose: 5 mg 78 year old gentleman with Hx of Metastatic breast ca s/p chemo, Hx of hydronephrosis (s/p stenting), DM, Hypertension, Cirrhosis who presented with urinary retention and KARTHIKEYAN. #KARTHIKEYAN secondary to bladder outlet obstruction + upper level obstruction at level of kidney #Metastatic bladder Ca #Metabolic acidosis #Anemia #DM Renal function improved s/p nephrostomy tube placement s/p stent exchange yesterday off IVF making urine trend renal function and electrolytes nephrostomy management as per urology continue flomax and proscar Shalom Alarcon DO
[2018-07-25] MEDS: FLUCONAZOLE 100 MG TABLET (UD) PO SCH (17:59)
[2018-07-25] MEDS: ZOLPIDEM TARTRATE 5 MG TABLET PO PRN (22:19)
--- NOTE | 2018-07-25 22:34 | PN ---
Progress Note, Physician - Current Medication List Current Medications: Active Medications Acetaminophen (Tylenol -) 650 mg PO Q6H PRN PRN Reason: FOR TEMP. OF 100 OR GREATER Last Admin: 07/25/18 01:26 Dose: 650 mg Finasteride (Proscar -) 5 mg PO DAILY [facility] Last Admin: 07/25/18 10:21 Dose: 5 mg Fluconazole (Diflucan -) 100 mg PO DAILY [facility] Last Admin: 07/25/18 17:59 Dose: 100 mg IV Flush (Carmela-Cath Flush) 10 ml IVPUSH PRN PRN PRN Reason: protocol; maintain patency Last Admin: 07/25/18 06:40 Dose: 10 ml Insulin Aspart (Novolog Vial Sliding Scale -) 1 vial SQ ACHS [facility]; Protocol Last Admin: 07/25/18 22:19 Dose: 4 units Metformin HCl (Glucophage -) 500 mg PO BID@0700,1630 [facility] Last Admin: 07/25/18 17:59 Dose: 500 mg Metoclopramide HCl (Reglan Oral Solution -) 5 mg PO BID PRN PRN Reason: NAUSEA Metoprolol Succinate (Toprol Xl -) 100 mg PO DAILY [facility] Last Admin: 07/25/18 10:21 Dose: 100 mg Multivitamins/Minerals (Theragran-M) 1 each PO DAILY [facility] Last Admin: 07/25/18 10:20 Dose: 1 each Nifedipine (Procardia Xl -) 30 mg PO DAILY [facility] Last Admin: 07/25/18 10:28 Dose: 30 mg Tamsulosin HCl (Flomax -) 0.4 mg PO DAILY@0830 [facility] Last Admin: 07/25/18 10:21 Dose: 0.4 mg Zolpidem Tartrate (Ambien -) 5 mg PO HS PRN PRN Reason: INSOMNIA Last Admin: 07/25/18 22:19 Dose: 5 mg - Objective Vital Signs: Vital Signs Temperature 99.4 F 07/25/18 18:00 Pulse Rate 91 H 07/25/18 18:00 Respiratory Rate 18 07/25/18 18:00 Blood Pressure 137/96 07/25/18 18:00 O2 Sat by Pulse Oximetry (%) 98 07/24/18 21:00 Neck: Yes: WNL, Supple Cardiovascular: Yes: WNL, Regular Rate and Rhythm Respiratory: Yes: WNL, Regular, CTA Bilaterally Gastrointestinal: Yes: WNL, Normal Bowel Sounds, Soft Genitourinary: Yes: Other ((+) b/l nephrostomies) Labs: CBC, BMP 07/25/18 06:40 07/25/18 06:40 INR, PTT INR 1.26 (0.83-1.09) H 07/14/18 21:35 Problem List - Problems (1) 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 Assessment/Plan: Pt had Rt renal stent placed B/L nephrostomy tubes draining Galarza cath w/ hematuria DC planning Code(s): C79.9 - SECONDARY MALIGNANT NEOPLASM OF UNSPECIFIED SITE; C67.9 - MALIGNANT NEOPLASM OF BLADDER, UNSPECIFIED (2) Sepsis Assessment/Plan: Urine culture (+) for yeast Cont PO diflucan Code(s): A41.9 - SEPSIS, UNSPECIFIED ORGANISM Qualifiers: Sepsis type: sepsis due to unspecified organism Qualified Code(s): A41.9 - Sepsis, unspecified organism (3) Acute on chronic renal failure Assessment/Plan: Improved creatinine Code(s): N17.9 - ACUTE KIDNEY FAILURE, UNSPECIFIED; N18.9 - CHRONIC KIDNEY DISEASE, UNSPECIFIED Qualifiers: Acute renal failure type: unspecified Chronic kidney disease stage: stage 3 (moderate) Qualified Code(s): N17.9 - Acute kidney failure, unspecified; N18.3 - Chronic kidney disease, stage 3 (moderate) (4) Anemia Assessment/Plan: Monitor H/H S/P transfusion PRBC's Code(s): D64.9 - ANEMIA, UNSPECIFIED Qualifiers: Anemia type: due to chronic kidney disease Chronic kidney disease stage: stage 3 (moderate) Qualified Code(s): N18.3 - Chronic kidney disease, stage 3 (moderate); D63.1 - Anemia in chronic kidney disease (5) BPH (benign prostatic hyperplasia) Code(s): N40.0 - BENIGN PROSTATIC HYPERPLASIA WITHOUT LOWER URINRY TRACT SYMP (6) Diabetes Code(s): E11.9 - TYPE 2 DIABETES MELLITUS WITHOUT COMPLICATIONS (7) HLD (hyperlipidemia) Code(s): E78.5 - HYPERLIPIDEMIA, UNSPECIFIED (8) Hypertension Code(s): I10 - ESSENTIAL (PRIMARY) HYPERTENSION Qualifiers: Hypertension type: other secondary hypertension Qualified Code(s): I15.8 - Other secondary hypertension
[2018-07-26] MEDS: ACETAMINOPHEN 325 MG TABLET (FP) PO PRN (03:50)
[2018-07-26] MEDS: PORTA CATH FLUSH 10 ML IVPUSH PRN (05:40)
[2018-07-26 06:15] LABS: BASO % 0.4 % (0-2.0); HEMATOCRIT 23.8 % (35.4-49); HEMOGLOBIN 7.6 GM/dL (11.7-16.9); LYMPH % 8.3 % (8-40); MCH 22.7 pg (25.7-33.7); MCHC 31.8 g/dl (32.0-35.9); MEAN CELL VOLUME 71.4 fl (80-96); MEAN PLT VOLUME 9.2 fl (7.5-11.1); MONO % 5.3 % (3.8-10.2); PLATELET COUNT 269 K/MM3 (134-434); RBC 3.33 M/mm3 (4.00-5.60); RDW 25.5 % (11.9-15.9); WHITE BLOOD COUNT 11.8 K/mm3 (4.0-10.0)
[2018-07-26] MEDS: metFORMIN HCL 500 MG TABLET (FP) PO SCH ×2 (06:23→16:13)
[2018-07-26] MEDS: INSULIN SLIDING SCALE (NOVOLOG) 1 VIAL SQ SCH ×4 (06:23→22:42)
[2018-07-26 06:41] LABS: ANION GAP 10 MMOL/L (8-16); BLOOD UREA NITROGEN 22 mg/dL (7-18); CHLORIDE 102 mmol/L (98-107); CO2 26 mmol/L (21-32); CREATININE 0.9 mg/dL (0.55-1.3); GLUCOSE,RANDOM 121 mg/dL (74-106); MAGNESIUM 1.5 mg/dL (1.8-2.4); POTASSIUM 3.8 mmol/L (3.5-5.1); SODIUM 138 mmol/L (136-145)
[2018-07-26] MEDS ORDERED: INSULIN (NOVOLOG) ASPART 100 UNITS/ML 10ML VIAL ONE (09:17)
[2018-07-26] MEDS: TAMSULOSIN HCL 0.4 MG CAP PO SCH (09:48)
[2018-07-26] MEDS: FLUCONAZOLE 100 MG TABLET (UD) PO SCH (09:48)
[2018-07-26] MEDS: FINASTERIDE 5 MG TABLET (FP) PO SCH (09:48)
[2018-07-26] MEDS: MULTIVITAMINS THER W-MINERALS COMBO TABLET (FP) PO SCH (09:48)
[2018-07-26] MEDS: NIFEdipine E.R. 30 MG TABLET (FP) PO SCH (09:49)
[2018-07-26] MEDS: DOCUSATE SODIUM 100 MG CAPSULE (FP) PO SCH ×2 (14:49→22:42)
--- NOTE | 2018-07-26 15:57 | PN ---
Progress Note, Physician History of Present Illness: stable doing well final plan being planned - Current Medication List Current Medications: Active Medications Acetaminophen (Tylenol -) 650 mg PO Q6H PRN PRN Reason: FOR TEMP. OF 100 OR GREATER Last Admin: 07/26/18 03:50 Dose: 650 mg Docusate Sodium (Colace -) 100 mg PO TID [facility] Last Admin: 07/26/18 14:49 Dose: 100 mg Finasteride (Proscar -) 5 mg PO DAILY [facility] Last Admin: 07/26/18 09:48 Dose: 5 mg Fluconazole (Diflucan -) 100 mg PO DAILY [facility] Last Admin: 07/26/18 09:48 Dose: 100 mg IV Flush (Carmela-Cath Flush) 10 ml IVPUSH PRN PRN PRN Reason: protocol; maintain patency Last Admin: 07/26/18 05:40 Dose: 10 ml Insulin Aspart (Novolog Vial Sliding Scale -) 1 vial SQ ACHS [facility]; Protocol Last Admin: 07/26/18 11:37 Dose: 2 units Metformin HCl (Glucophage -) 500 mg PO BID@0700,1630 [facility] Last Admin: 07/26/18 06:23 Dose: 500 mg Metoclopramide HCl (Reglan Oral Solution -) 5 mg PO BID PRN PRN Reason: NAUSEA Metoprolol Succinate (Toprol Xl -) 100 mg PO DAILY [facility] Last Admin: 07/26/18 09:49 Dose: 100 mg Multivitamins/Minerals (Theragran-M) 1 each PO DAILY [facility] Last Admin: 07/26/18 09:48 Dose: 1 each Nifedipine (Procardia Xl -) 30 mg PO DAILY [facility] Last Admin: 07/26/18 09:49 Dose: 30 mg Tamsulosin HCl (Flomax -) 0.4 mg PO DAILY@0830 [facility] Last Admin: 07/26/18 09:48 Dose: 0.4 mg Zolpidem Tartrate (Ambien -) 5 mg PO HS PRN PRN Reason: INSOMNIA Last Admin: 07/25/18 22:19 Dose: 5 mg - Objective Vital Signs: Vital Signs Temperature 98.2 F 07/26/18 15:31 Pulse Rate 96 H 07/26/18 15:31 Respiratory Rate 20 07/26/18 15:31 Blood Pressure 106/68 07/26/18 15:31 O2 Sat by Pulse Oximetry (%) 97 07/26/18 09:00 Constitutional: Yes: No Distress, Calm Cardiovascular: Yes: Regular Rate and Rhythm Respiratory: Yes: Regular, CTA Bilaterally Gastrointestinal: Yes: Normal Bowel Sounds, Soft Genitourinary: Yes: Rahman Present, Other (b/l nephrostomy tubes) Musculoskeletal: Yes: WNL Extremities: Yes: WNL Neurological: Yes: Alert, Oriented Psychiatric: Yes: Alert, Oriented Labs: CBC, BMP 07/26/18 05:40 07/26/18 05:40 INR, PTT INR 1.26 (0.83-1.09) H 07/14/18 21:35 Assessment/Plan Problem List - Problems (1) KARTHIKEYAN (acute kidney injury) Code(s): N17.9 - ACUTE KIDNEY FAILURE, UNSPECIFIED (2) Anemia Code(s): D64.9 - ANEMIA, UNSPECIFIED (3) Lactic acidosis Code(s): E87.2 - ACIDOSIS (4) 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 Code(s): C79.9 - SECONDARY MALIGNANT NEOPLASM OF UNSPECIFIED SITE; C67.9 - MALIGNANT NEOPLASM OF BLADDER, UNSPECIFIED (5) BPH (benign prostatic hyperplasia) Code(s): N40.0 - BENIGN PROSTATIC HYPERPLASIA WITHOUT LOWER URINRY TRACT SYMP (6) Diabetes Code(s): E11.9 - TYPE 2 DIABETES MELLITUS WITHOUT COMPLICATIONS (7) Fever Code(s): R50.9 - FEVER, UNSPECIFIED Qualifiers: Fever type: unspecified Qualified Code(s): R50.9 - Fever, unspecified (8) HLD (hyperlipidemia) Code(s): E78.5 - HYPERLIPIDEMIA, UNSPECIFIED (9) Hypertension Code(s): I10 - ESSENTIAL (PRIMARY) HYPERTENSION Qualifiers: Hypertension type: other secondary hypertension Qualified Code(s): I15.8 - Other secondary hypertension (10) Sepsis Code(s): A41.9 - SEPSIS, UNSPECIFIED ORGANISM Qualifiers: Sepsis type: sepsis due to unspecified organism Qualified Code(s): A41.9 - Sepsis, unspecified organism (11) UTI (urinary tract infection) Code(s): N39.0 - URINARY TRACT INFECTION, SITE NOT SPECIFIED Assessment/Plan This is a 78 y.o. male with PMH of Metastatic Bladder CA (s/p chemotherapy over 3 wks ago) , currently with port in place, s/p urinary stent removal prior to last admission , DM, HTN, urinary retention s/p stent/rahman removal, s/p recent treatment for Sepsis due to ESBL + Klebsiella UTI/Bacteremia , and s/p TURP presenting with fever/weakness Sepsis b/l hydronephrosis Obstructive uropathy Met Bladder CA KARTHIKEYAN Urinary retention s/p TURP s/p UTI/Bacteremia DM all cx reports noted plan stable off of abx continue current mgmt await for final plans once we have that will decide further management
--- NOTE | 2018-07-26 19:35 | PN ---
Progress Note (short form) - Note Progress Note: Patient seen and examined S/p stnet exchang Last Vital Signs Temp Pulse Resp BP Pulse Ox 97.6 F 85 20 105/71 97 07/26/18 18:05 07/26/18 18:05 07/26/18 18:05 07/26/18 18:05 07/26/18 09:00 HEENT: FLETCH[place], EOM Intact Oropharynx: No thrush, No mucositis Cor: RSR, No murmurs, No gallops Lungs: Clear to P&A Abd: Soft, Normal bowel sounds, No organomegaly Ext:No significant edema Skin: No rashes, Integument intact Galarza catheter CBC, BMP 07/26/18 05:40 07/26/18 05:40 Current Medications Generic Name Dose Route Start Last Admin Trade Name Freq PRN Reason Stop Dose Admin Acetaminophen 650 mg 07/24/18 16:38 07/26/18 03:50 Tylenol - PO 650 mg Q6H PRN Administration FOR TEMP. OF 100 OR GREATER Docusate Sodium 100 mg 07/26/18 14:00 07/26/18 14:49 Colace - PO 100 mg TID [facility] Administration Finasteride 5 mg 07/25/18 10:00 07/26/18 09:48 Proscar - PO 5 mg DAILY [facility] Administration Fluconazole 100 mg 07/25/18 14:45 07/26/18 09:48 Diflucan - PO 100 mg DAILY [facility] Administration IV Flush 10 ml 07/24/18 16:38 07/26/18 05:40 Carmela-Cath Flush IVPUSH 10 ml PRN PRN Administration protocol; maintain patency Insulin Aspart 1 vial 07/24/18 22:00 07/26/18 16:13 Novolog Vial Sliding Scale - SQ 2 units ACHS [facility] Administration Protocol Metformin HCl 500 mg 07/25/18 07:00 07/26/18 16:13 Glucophage - PO 500 mg BID@0700,1630 [facility] Administration Metoclopramide HCl 5 mg 07/24/18 16:38 Reglan Oral Solution - PO BID PRN NAUSEA Metoprolol Succinate 100 mg 07/25/18 10:00 07/26/18 09:49 Toprol Xl - PO 100 mg DAILY [facility] Administration Multivitamins/Minerals 1 each 07/25/18 10:00 07/26/18 09:48 Theragran-M PO 1 each DAILY [facility] Administration Nifedipine 30 mg 07/25/18 10:00 07/26/18 09:49 Procardia Xl - PO 30 mg DAILY [facility] Administration Tamsulosin HCl 0.4 mg 07/25/18 08:30 07/26/18 09:48 Flomax - PO 0.4 mg DAILY@0830 [facility] Administration Zolpidem Tartrate 5 mg 07/24/18 16:38 07/25/18 22:19 Ambien - PO 5 mg HS PRN Administration INSOMNIA Improvement in kidney function s/p nephrostomy drainage Nephrostomy drainage clear urine Galarza- blood tinged For nephrostomy removal .
--- NOTE | 2018-07-26 21:54 | PN ---
Progress Note, Physician History of Present Illness: No new complaints - Current Medication List Current Medications: Active Medications Acetaminophen (Tylenol -) 650 mg PO Q6H PRN PRN Reason: FOR TEMP. OF 100 OR GREATER Last Admin: 07/26/18 03:50 Dose: 650 mg Docusate Sodium (Colace -) 100 mg PO TID [facility] Last Admin: 07/26/18 14:49 Dose: 100 mg Finasteride (Proscar -) 5 mg PO DAILY [facility] Last Admin: 07/26/18 09:48 Dose: 5 mg Fluconazole (Diflucan -) 100 mg PO DAILY [facility] Last Admin: 07/26/18 09:48 Dose: 100 mg IV Flush (Carmela-Cath Flush) 10 ml IVPUSH PRN PRN PRN Reason: protocol; maintain patency Last Admin: 07/26/18 05:40 Dose: 10 ml Insulin Aspart (Novolog Vial Sliding Scale -) 1 vial SQ ACHS [facility]; Protocol Last Admin: 07/26/18 16:13 Dose: 2 units Metformin HCl (Glucophage -) 500 mg PO BID@0700,1630 [facility] Last Admin: 07/26/18 16:13 Dose: 500 mg Metoclopramide HCl (Reglan Oral Solution -) 5 mg PO BID PRN PRN Reason: NAUSEA Metoprolol Succinate (Toprol Xl -) 100 mg PO DAILY [facility] Last Admin: 07/26/18 09:49 Dose: 100 mg Multivitamins/Minerals (Theragran-M) 1 each PO DAILY [facility] Last Admin: 07/26/18 09:48 Dose: 1 each Nifedipine (Procardia Xl -) 30 mg PO DAILY [facility] Last Admin: 07/26/18 09:49 Dose: 30 mg Tamsulosin HCl (Flomax -) 0.4 mg PO DAILY@0830 [facility] Last Admin: 07/26/18 09:48 Dose: 0.4 mg Zolpidem Tartrate (Ambien -) 5 mg PO HS PRN PRN Reason: INSOMNIA Last Admin: 07/25/18 22:19 Dose: 5 mg - Objective Vital Signs: Vital Signs Temperature 97.6 F 07/26/18 18:05 Pulse Rate 85 07/26/18 18:05 Respiratory Rate 20 07/26/18 21:00 Blood Pressure 105/71 07/26/18 18:05 O2 Sat by Pulse Oximetry (%) 97 07/26/18 21:00 HENT: Yes: WNL Neck: Yes: WNL, Supple Cardiovascular: Yes: WNL, Regular Rate and Rhythm Respiratory: Yes: WNL, Regular Gastrointestinal: Yes: WNL, Normal Bowel Sounds, Soft Genitourinary: Yes: Other ((+) B/L nephrostomy tubes) Labs: CBC, BMP 07/26/18 05:40 07/26/18 05:40 INR, PTT INR 1.26 (0.83-1.09) H 07/14/18 21:35 Problem List - Problems (1) 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 Assessment/Plan: Pt had Rt renal stent placed B/L nephrostomy tubes draining Galarza cath w/ hematuria Nephrostomy tubes to be removed 07/28/18 As per onco Code(s): C79.9 - SECONDARY MALIGNANT NEOPLASM OF UNSPECIFIED SITE; C67.9 - MALIGNANT NEOPLASM OF BLADDER, UNSPECIFIED (2) Sepsis Assessment/Plan: Urine culture (+) for yeast Cont PO diflucan Repeat WBC in am wc was slightly increased today Code(s): A41.9 - SEPSIS, UNSPECIFIED ORGANISM Qualifiers: Sepsis type: sepsis due to unspecified organism Qualified Code(s): A41.9 - Sepsis, unspecified organism (3) Acute on chronic renal failure Assessment/Plan: Improved renal function Code(s): N17.9 - ACUTE KIDNEY FAILURE, UNSPECIFIED; N18.9 - CHRONIC KIDNEY DISEASE, UNSPECIFIED Qualifiers: Acute renal failure type: unspecified Chronic kidney disease stage: stage 3 (moderate) Qualified Code(s): N17.9 - Acute kidney failure, unspecified; N18.3 - Chronic kidney disease, stage 3 (moderate) (4) Anemia Assessment/Plan: Monitor H/H S/P transfusion PRBC's May need transfusion PRBC's in am Code(s): D64.9 - ANEMIA, UNSPECIFIED Qualifiers: Anemia type: due to chronic kidney disease Chronic kidney disease stage: stage 3 (moderate) Qualified Code(s): N18.3 - Chronic kidney disease, stage 3 (moderate); D63.1 - Anemia in chronic kidney disease (5) BPH (benign prostatic hyperplasia) Code(s): N40.0 - BENIGN PROSTATIC HYPERPLASIA WITHOUT LOWER URINRY TRACT SYMP (6) Diabetes Code(s): E11.9 - TYPE 2 DIABETES MELLITUS WITHOUT COMPLICATIONS (7) HLD (hyperlipidemia) Code(s): E78.5 - HYPERLIPIDEMIA, UNSPECIFIED (8) Hypertension Code(s): I10 - ESSENTIAL (PRIMARY) HYPERTENSION Qualifiers: Hypertension type: other secondary hypertension Qualified Code(s): I15.8 - Other secondary hypertension
[2018-07-26] MEDS: ZOLPIDEM TARTRATE 5 MG TABLET PO PRN (22:42)
[2018-07-27] MEDS: metFORMIN HCL 500 MG TABLET (FP) PO SCH ×2 (06:06→16:32)
[2018-07-27] MEDS: DOCUSATE SODIUM 100 MG CAPSULE (FP) PO SCH ×3 (06:06→22:46)
[2018-07-27] MEDS: INSULIN SLIDING SCALE (NOVOLOG) 1 VIAL SQ SCH ×4 (06:07→22:46)
[2018-07-27 07:13] LABS: BASO % 0.3 % (0-2.0); EOS % 1.3 % (0-4.5); HEMATOCRIT 24.8 % (35.4-49); HEMOGLOBIN 7.8 GM/dL (11.7-16.9); LYMPH % 10.2 % (8-40); MCH 22.4 pg (25.7-33.7); MCHC 31.6 g/dl (32.0-35.9); MEAN PLT VOLUME 9.5 fl (7.5-11.1); MONO % 5.3 % (3.8-10.2); NEUT % 82.9 % (42.8-82.8); PLATELET COUNT 295 K/MM3 (134-434); RBC 3.49 M/mm3 (4.00-5.60); RDW 25.8 % (11.9-15.9); WHITE BLOOD COUNT 12.2 K/mm3 (4.0-10.0)
[2018-07-27 07:40] LABS: ALBUMIN 2.3 g/dl (3.4-5.0); ALK PHOS 714 U/L (45-117); ANION GAP 9 MMOL/L (8-16); BILIRUBIN,TOTAL 1.3 mg/dL (0.2-1); BLOOD UREA NITROGEN 23 mg/dL (7-18); CALCIUM 8.3 mg/dL (8.5-10.1); CHLORIDE 102 mmol/L (98-107); CO2 28 mmol/L (21-32); CREATININE 0.7 mg/dL (0.55-1.3); GLUCOSE,RANDOM 109 mg/dL (74-106); POTASSIUM 3.8 mmol/L (3.5-5.1); SGOT/AST 22 U/L (15-37); SGPT/ALT 34 U/L (13-61); SODIUM 139 mmol/L (136-145); TOT PROT 6.5 g/dl (6.4-8.2)
[2018-07-27] MEDS: MULTIVITAMINS THER W-MINERALS COMBO TABLET (FP) PO SCH (10:10)
[2018-07-27] MEDS: FINASTERIDE 5 MG TABLET (FP) PO SCH (10:10)
[2018-07-27] MEDS: FLUCONAZOLE 100 MG TABLET (UD) PO SCH (10:11)
[2018-07-27] MEDS: PORTA CATH FLUSH 10 ML IVPUSH PRN (10:11)
[2018-07-27] MEDS: NIFEdipine E.R. 30 MG TABLET (FP) PO SCH (10:11)
[2018-07-27] MEDS: TAMSULOSIN HCL 0.4 MG CAP PO SCH (10:11)
--- NOTE | 2018-07-27 11:35 | PN ---
Physical Exam: SUBJECTIVE: Patient seen and examined at bedside. No overnight events. No new complaints. Denies CP,HAIDER, SOB, abdominal pain, nausea or vomiting. OBJECTIVE: Vital Signs Period Temp Pulse Resp BP Sys/Benjamin Pulse Ox Last 24 Hr 97.6 F-98.2 F 84-96 20-20 105-130/68-80 97 GENERAL: AAOx3, NAD LUNGS: CTAB, no wheezes, no crackles, no accessory muscle use. HEART: Regular rate and rhythm, S1, S2 without murmur, rub or gallop. ABDOMEN: Soft, NTNS, NABS, no guarding, no rebound, no hepatosplenomegaly, no masses. EXTREMITIES: 2+ pulses, warm, well-perfused, no edema. : bilateral nephrostomy tubes draining yellow urine. Laboratory Results - last 24 hr 07/26/18 07/26/18 07/26/18 11:25 16:12 22:29 WBC RBC Hgb Hct MCV MCH MCHC RDW Plt Count MPV Absolute Neuts (auto) Neutrophils % Lymphocytes % Monocytes % Eosinophils % Basophils % Nucleated RBC % Sodium Potassium Chloride Carbon Dioxide Anion Gap BUN Creatinine Creat Clearance w eGFR POC Glucometer 161 163 166 Random Glucose Calcium Total Bilirubin AST ALT Alkaline Phosphatase Total Protein Albumin 07/27/18 07/27/18 07/27/18 06:03 06:45 06:45 WBC 12.2 H RBC 3.49 L Hgb 7.8 L Hct 24.8 L MCV 71.0 L MCH 22.4 L MCHC 31.6 L RDW 25.8 H Plt Count 295 MPV 9.5 Absolute Neuts (auto) 10.1 H Neutrophils % 82.9 H Lymphocytes % 10.2 D Monocytes % 5.3 Eosinophils % 1.3 Basophils % 0.3 Nucleated RBC % 0 Sodium 139 Potassium 3.8 Chloride 102 Carbon Dioxide 28 Anion Gap 9 BUN 23 H Creatinine 0.7 Creat Clearance w eGFR > 60 POC Glucometer 101 Random Glucose 109 H Calcium 8.3 L Total Bilirubin 1.3 H AST 22 ALT 34 Alkaline Phosphatase 714 H Total Protein 6.5 Albumin 2.3 L Active Medications Generic Name Dose Route Start Last Admin Trade Name Freq PRN Reason Stop Dose Admin Acetaminophen 650 mg 07/24/18 16:38 07/26/18 03:50 Tylenol - PO 650 mg Q6H PRN Administration FOR TEMP. OF 100 OR GREATER Docusate Sodium 100 mg 07/26/18 14:00 07/27/18 06:06 Colace - PO 100 mg TID LIT Administration Finasteride 5 mg 07/25/18 10:00 07/27/18 10:10 Proscar - PO 5 mg DAILY LIT Administration Fluconazole 100 mg 07/25/18 14:45 07/27/18 10:11 Diflucan - PO 100 mg DAILY LIT Administration IV Flush 10 ml 07/24/18 16:38 07/27/18 10:11 Carmela-Cath Flush IVPUSH 10 ml PRN PRN Administration protocol; maintain patency Insulin Aspart 1 vial 07/24/18 22:00 07/27/18 06:07 Novolog Vial Sliding Scale - SQ Not Given ACHS LIT Protocol Metformin HCl 500 mg 07/25/18 07:00 07/27/18 06:06 Glucophage - PO 500 mg BID@0700,1630 LIT Administration Metoclopramide HCl 5 mg 07/24/18 16:38 Reglan Oral Solution - PO BID PRN NAUSEA Metoprolol Succinate 100 mg 07/25/18 10:00 07/27/18 10:11 Toprol Xl - PO 100 mg DAILY LIT Administration Multivitamins/Minerals 1 each 07/25/18 10:00 07/27/18 10:10 Theragran-M PO 1 each DAILY LIT Administration Nifedipine 30 mg 07/25/18 10:00 07/27/18 10:11 Procardia Xl - PO 30 mg DAILY LIT Administration Tamsulosin HCl 0.4 mg 07/25/18 08:30 07/27/18 10:11 Flomax - PO 0.4 mg DAILY@0830 LIT Administration Zolpidem Tartrate 5 mg 07/24/18 16:38 07/26/18 22:42 Ambien - PO 5 mg HS PRN Administration INSOMNIA ASSESSMENT/PLAN: This is a 78 y.o. male with PMH of Metastatic Bladder CA (s/p chemotherapy over 3 wks ago) , currently with port in place, s/p urinary stent removal prior to last admission , DM, HTN, urinary retention s/p stent/rahman removal, s/p recent treatment for Sepsis due to ESBL + Klebsiella UTI/Bacteremia , and s/p TURP presenting with fever/weakness Problem List - Problems (1) 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 Assessment/Plan: Metastatic Bladder CA (s/p C4 gemzar/carboplatin 06/22/18) , currently with port in place * chemotherapy on hold * Nephrostomy removal scheduled for tuesday. * Discussion was made about possibility of immunotherapy. (2) Acute on chronic renal failure Assessment/Plan: renal function inproving. * Bilateral Hydronephrosis seen on US * Bladder scan NM showed obstruction. * for procedure on Tuesday and trial of voiding. Qualifiers: Acute renal failure type: unspecified Chronic kidney disease stage: stage 3 (moderate) Qualified Code(s): N17.9 - Acute kidney failure, unspecified; N18.3 - Chronic kidney disease, stage 3 (moderate) (3) Sepsis Assessment/Plan: ESBL UTI as the cause. * Abx completed. * Diflucan continued as per ID. (4) UTI (urinary tract infection) Qualifiers: Urinary tract infection type: catheter-associated UTI Indwelling urinary catheter type: indwelling urethral catheter Encounter type: initial encounter Qualified Code(s): T83.511A - Infection and inflammatory reaction due to indwelling urethral catheter, initial encounter; N39.0 - Urinary tract infection , site not specified (5) Anemia Assessment/Plan: secondary to chronic kidney disease * No further w/u at this time. Visit type - Emergency Visit Emergency Visit: Yes ED Registration Date: 07/14/18 Care time: The patient presented to the Emergency Department on the above date and was hospitalized for further evaluation of their emergent condition. - New Patient This patient is new to me today: No - Critical Care Critical Care patient: No
--- NOTE | 2018-07-27 14:38 | PN ---
Progress Note, Physician History of Present Illness: patient stable plan for internelization of the stents - Current Medication List Current Medications: Active Medications Acetaminophen (Tylenol -) 650 mg PO Q6H PRN PRN Reason: FOR TEMP. OF 100 OR GREATER Last Admin: 07/26/18 03:50 Dose: 650 mg Docusate Sodium (Colace -) 100 mg PO TID [facility] Last Admin: 07/27/18 14:08 Dose: Not Given Finasteride (Proscar -) 5 mg PO DAILY [facility] Last Admin: 07/27/18 10:10 Dose: 5 mg Fluconazole (Diflucan -) 100 mg PO DAILY [facility] Last Admin: 07/27/18 10:11 Dose: 100 mg IV Flush (Carmela-Cath Flush) 10 ml IVPUSH PRN PRN PRN Reason: protocol; maintain patency Last Admin: 07/27/18 10:11 Dose: 10 ml Insulin Aspart (Novolog Vial Sliding Scale -) 1 vial SQ ACHS [facility]; Protocol Last Admin: 07/27/18 11:38 Dose: 2 units Metformin HCl (Glucophage -) 500 mg PO BID@0700,1630 [facility] Last Admin: 07/27/18 06:06 Dose: 500 mg Metoclopramide HCl (Reglan Oral Solution -) 5 mg PO BID PRN PRN Reason: NAUSEA Metoprolol Succinate (Toprol Xl -) 100 mg PO DAILY [facility] Last Admin: 07/27/18 10:11 Dose: 100 mg Multivitamins/Minerals (Theragran-M) 1 each PO DAILY [facility] Last Admin: 07/27/18 10:10 Dose: 1 each Nifedipine (Procardia Xl -) 30 mg PO DAILY [facility] Last Admin: 07/27/18 10:11 Dose: 30 mg Tamsulosin HCl (Flomax -) 0.4 mg PO DAILY@0830 [facility] Last Admin: 07/27/18 10:11 Dose: 0.4 mg Zolpidem Tartrate (Ambien -) 5 mg PO HS PRN PRN Reason: INSOMNIA - Objective Vital Signs: Vital Signs Temperature 98.4 F 07/27/18 14:23 Pulse Rate 81 07/27/18 14:23 Respiratory Rate 20 07/27/18 14:23 Blood Pressure 117/80 07/27/18 14:23 O2 Sat by Pulse Oximetry (%) 96 07/27/18 09:00 Constitutional: Yes: No Distress, Calm Cardiovascular: Yes: Regular Rate and Rhythm Respiratory: Yes: Regular, CTA Bilaterally Gastrointestinal: Yes: Normal Bowel Sounds, Soft Genitourinary: Yes: Rahman Present, Other (b/l nephrostomy tbubes in places) Musculoskeletal: Yes: WNL Extremities: Yes: WNL Neurological: Yes: Alert, Oriented Psychiatric: Yes: Alert, Oriented Labs: CBC, BMP 07/27/18 06:45 07/27/18 06:45 INR, PTT INR 1.26 (0.83-1.09) H 07/14/18 21:35 Assessment/Plan Problem List - Problems (1) KARTHIKEYAN (acute kidney injury) Code(s): N17.9 - ACUTE KIDNEY FAILURE, UNSPECIFIED (2) Anemia Code(s): D64.9 - ANEMIA, UNSPECIFIED (3) Lactic acidosis Code(s): E87.2 - ACIDOSIS (4) 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 Code(s): C79.9 - SECONDARY MALIGNANT NEOPLASM OF UNSPECIFIED SITE; C67.9 - MALIGNANT NEOPLASM OF BLADDER, UNSPECIFIED (5) BPH (benign prostatic hyperplasia) Code(s): N40.0 - BENIGN PROSTATIC HYPERPLASIA WITHOUT LOWER URINRY TRACT SYMP (6) Diabetes Code(s): E11.9 - TYPE 2 DIABETES MELLITUS WITHOUT COMPLICATIONS (7) Fever Code(s): R50.9 - FEVER, UNSPECIFIED Qualifiers: Fever type: unspecified Qualified Code(s): R50.9 - Fever, unspecified (8) HLD (hyperlipidemia) Code(s): E78.5 - HYPERLIPIDEMIA, UNSPECIFIED (9) Hypertension Code(s): I10 - ESSENTIAL (PRIMARY) HYPERTENSION Qualifiers: Hypertension type: other secondary hypertension Qualified Code(s): I15.8 - Other secondary hypertension (10) Sepsis Code(s): A41.9 - SEPSIS, UNSPECIFIED ORGANISM Qualifiers: Sepsis type: sepsis due to unspecified organism Qualified Code(s): A41.9 - Sepsis, unspecified organism (11) UTI (urinary tract infection) Code(s): N39.0 - URINARY TRACT INFECTION, SITE NOT SPECIFIED Assessment/Plan This is a 78 y.o. male with PMH of Metastatic Bladder CA (s/p chemotherapy over 3 wks ago) , currently with port in place, s/p urinary stent removal prior to last admission , DM, HTN, urinary retention s/p stent/rahman removal, s/p recent treatment for Sepsis due to ESBL + Klebsiella UTI/Bacteremia , and s/p TURP presenting with fever/weakness Sepsis b/l hydronephrosis Obstructive uropathy Met Bladder CA KARTHIKEYAN Urinary retention s/p TURP s/p UTI/Bacteremia DM all cx reports noted plan will start patient on abx will stop them once the procedure is done procedure tomorrow rest as per the team and urology
[2018-07-27] MEDS: ERTAPENEM SODIUM 1 GM in SODIUM CHLORIDE 50 ML IVPB SCH (16:36)
[2018-07-27] MEDS: ZOLPIDEM TARTRATE 5 MG TABLET PO PRN (22:45)
--- NOTE | 2018-07-27 23:14 | PN ---
Progress Note (short form) - Note Progress Note: PAtient seen and examined s/p bilateral percutaneous nephrostomies and internalizationof stents for removal of PCNs tomorrow No other symptoms Last Vital Signs Temp Pulse Resp BP Pulse Ox 97.8 F 91 H 20 106/62 96 07/27/18 18:09 07/27/18 18:09 07/27/18 21:00 07/27/18 18:09 07/27/18 21:00 Cor: RSR, No murmurs, No gallops Lungs: decreased at bases Abd: Soft, Normal bowel sounds, No organomegaly Ext:No significant edema Labs/Meds reviewed Active Medications Generic Name Dose Route Start Last Admin Trade Name Freq PRN Reason Stop Dose Admin Acetaminophen 650 mg 07/24/18 16:38 07/26/18 03:50 Tylenol - PO 650 mg Q6H PRN Administration FOR TEMP. OF 100 OR GREATER Docusate Sodium 100 mg 07/26/18 14:00 07/27/18 22:46 Colace - PO 100 mg TID LIT Administration Finasteride 5 mg 07/25/18 10:00 07/27/18 10:10 Proscar - PO 5 mg DAILY LIT Administration Fluconazole 100 mg 07/25/18 14:45 07/27/18 10:11 Diflucan - PO 100 mg DAILY LIT Administration IV Flush 10 ml 07/24/18 16:38 07/27/18 10:11 Carmela-Cath Flush IVPUSH 10 ml PRN PRN Administration protocol; maintain patency Ertapenem 1 gm/ Sodium 50 mls @ 50 mls/hr 07/27/18 14:45 07/27/18 16:36 Chloride IVPB 50 mls/hr DAILY LIT Administration Protocol Insulin Aspart 1 vial 07/24/18 22:00 07/27/18 22:46 Novolog Vial Sliding Scale - SQ 2 units ACHS LIT Administration Protocol Metformin HCl 500 mg 07/25/18 07:00 07/27/18 16:32 Glucophage - PO 500 mg BID@0700,1630 LIT Administration Metoclopramide HCl 5 mg 07/24/18 16:38 Reglan Oral Solution - PO BID PRN NAUSEA Metoprolol Succinate 100 mg 07/25/18 10:00 07/27/18 10:11 Toprol Xl - PO 100 mg DAILY LIT Administration Multivitamins/Minerals 1 each 07/25/18 10:00 07/27/18 10:10 Theragran-M PO 1 each DAILY LIT Administration Nifedipine 30 mg 07/25/18 10:00 07/27/18 10:11 Procardia Xl - PO 30 mg DAILY LIT Administration Tamsulosin HCl 0.4 mg 07/25/18 08:30 07/27/18 10:11 Flomax - PO 0.4 mg DAILY@0830 LIT Administration Zolpidem Tartrate 5 mg 07/27/18 22:00 07/27/18 22:45 Ambien - PO 5 mg HS PRN Administration INSOMNIA A/P This is a 78 y.o. male with PMH of Metastatic Bladder CA (s/p C4 gemzar/ carboplatin 06/22/18) , currently with port in place, s/p urinary stent removal06/21 , s/p floley removal on 07/10/18 , DM, HTN, urinary retention s/p stent/ rahman removal, s/p recent treatment for Sepsis due to ESBL + Klebsiella UTI/ Bacteremia , and s/p TURP presenting with fever/weakness Also with acute renal failure, new since 07/05/18 Obstructive uropathy/acute renal failure s/p percutaneous nephrostomies/replacement of right stent--for removalof PCNS Anemia of chronic disease transfuse as needed
[2018-07-28] MEDS: INSULIN SLIDING SCALE (NOVOLOG) 1 VIAL SQ SCH ×4 (06:17→22:08)
[2018-07-28] MEDS: metFORMIN HCL 500 MG TABLET (FP) PO SCH ×2 (06:18→16:39)
[2018-07-28] MEDS: DOCUSATE SODIUM 100 MG CAPSULE (FP) PO SCH ×3 (06:18→22:09)
[2018-07-28] MEDS ORDERED: INSULIN (LEVEMIR) 100 UNITS/ML UNITS SQ ONE (06:40)
[2018-07-28] MEDS ORDERED: INSULIN (NOVOLOG) ASPART 100 UNITS/ML 10ML VIAL ONE (06:40)
[2018-07-28 07:45] LABS: HEMATOCRIT 24.4 % (35.4-49); HEMOGLOBIN 7.9 GM/dL (11.7-16.9); MCHC 32.2 g/dl (32.0-35.9); MEAN CELL VOLUME 71.2 fl (80-96); MEAN PLT VOLUME 9.1 fl (7.5-11.1); PLATELET COUNT 272 K/MM3 (134-434); RBC 3.42 M/mm3 (4.00-5.60); RDW 25.7 % (11.9-15.9); WHITE BLOOD COUNT 10.6 K/mm3 (4.0-10.0)
[2018-07-28 08:08] LABS: ALBUMIN 2.3 g/dl (3.4-5.0); ALK PHOS 693 U/L (45-117); ANION GAP 8 MMOL/L (8-16); BILIRUBIN,TOTAL 0.9 mg/dL (0.2-1); BLOOD UREA NITROGEN 21 mg/dL (7-18); CALCIUM 8.1 mg/dL (8.5-10.1); CHLORIDE 101 mmol/L (98-107); CO2 28 mmol/L (21-32); CREATININE 0.8 mg/dL (0.55-1.3); GLUCOSE,RANDOM 110 mg/dL (74-106); SGOT/AST 24 U/L (15-37); SGPT/ALT 31 U/L (13-61); SODIUM 137 mmol/L (136-145); TOT PROT 6.6 g/dl (6.4-8.2)
[2018-07-28] MEDS ORDERED: PT OWN MED DRAWER 7, Y5N ONE (08:56)
[2018-07-28] MEDS ORDERED: MIDAZOLAM HCL 2 MG/2 ML SINGLE DOSE VIAL IVPUSH ONE (10:50)
--- NOTE | 2018-07-28 11:45 | PN ---
Progress Note, Physician History of Present Illness: doing well no issues plan is for internalization of the stents - Current Medication List Current Medications: Active Medications Acetaminophen (Tylenol -) 650 mg PO Q6H PRN PRN Reason: FOR TEMP. OF 100 OR GREATER Last Admin: 07/26/18 03:50 Dose: 650 mg Docusate Sodium (Colace -) 100 mg PO TID [facility] Last Admin: 07/28/18 06:18 Dose: 100 mg Finasteride (Proscar -) 5 mg PO DAILY [facility] Last Admin: 07/27/18 10:10 Dose: 5 mg Fluconazole (Diflucan -) 100 mg PO DAILY [facility] Last Admin: 07/27/18 10:11 Dose: 100 mg IV Flush (Carmela-Cath Flush) 10 ml IVPUSH PRN PRN PRN Reason: protocol; maintain patency Last Admin: 07/27/18 10:11 Dose: 10 ml Ertapenem 1 gm/ Sodium (Chloride) 50 mls @ 50 mls/hr IVPB DAILY [facility]; Protocol Last Admin: 07/27/18 16:36 Dose: 50 mls/hr Insulin Aspart (Novolog Vial Sliding Scale -) 1 vial SQ ACHS [facility]; Protocol Last Admin: 07/28/18 06:17 Dose: Not Given Metformin HCl (Glucophage -) 500 mg PO BID@0700,1630 [facility] Last Admin: 07/28/18 06:18 Dose: 500 mg Metoclopramide HCl (Reglan Oral Solution -) 5 mg PO BID PRN PRN Reason: NAUSEA Metoprolol Succinate (Toprol Xl -) 100 mg PO DAILY [facility] Last Admin: 07/27/18 10:11 Dose: 100 mg Multivitamins/Minerals (Theragran-M) 1 each PO DAILY [facility] Last Admin: 07/27/18 10:10 Dose: 1 each Nifedipine (Procardia Xl -) 30 mg PO DAILY [facility] Last Admin: 07/27/18 10:11 Dose: 30 mg Tamsulosin HCl (Flomax -) 0.4 mg PO DAILY@0830 [facility] Last Admin: 07/27/18 10:11 Dose: 0.4 mg Zolpidem Tartrate (Ambien -) 5 mg PO HS PRN PRN Reason: INSOMNIA Last Admin: 07/27/18 22:45 Dose: 5 mg - Objective Vital Signs: Vital Signs Temperature 97.8 F 07/28/18 09:53 Pulse Rate 74 07/28/18 11:36 Respiratory Rate 16 07/28/18 11:36 Blood Pressure 156/92 07/28/18 11:36 O2 Sat by Pulse Oximetry (%) 100 07/28/18 11:36 Constitutional: Yes: No Distress, Calm Neck: Yes: Supple, Trachea Midline Cardiovascular: Yes: Regular Rate and Rhythm Respiratory: Yes: Regular, CTA Bilaterally Genitourinary: Yes: Rahman Present, Other (b/l nephrostomy tubes) Neurological: Yes: Alert, Oriented Psychiatric: Yes: Alert, Oriented Labs: CBC, BMP 07/28/18 06:00 07/28/18 06:00 INR, PTT INR 1.26 (0.83-1.09) H 07/14/18 21:35 Assessment/Plan Problem List - Problems (1) KARTHIKEYAN (acute kidney injury) Code(s): N17.9 - ACUTE KIDNEY FAILURE, UNSPECIFIED (2) Anemia Code(s): D64.9 - ANEMIA, UNSPECIFIED (3) Lactic acidosis Code(s): E87.2 - ACIDOSIS (4) 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 Code(s): C79.9 - SECONDARY MALIGNANT NEOPLASM OF UNSPECIFIED SITE; C67.9 - MALIGNANT NEOPLASM OF BLADDER, UNSPECIFIED (5) BPH (benign prostatic hyperplasia) Code(s): N40.0 - BENIGN PROSTATIC HYPERPLASIA WITHOUT LOWER URINRY TRACT SYMP (6) Diabetes Code(s): E11.9 - TYPE 2 DIABETES MELLITUS WITHOUT COMPLICATIONS (7) Fever Code(s): R50.9 - FEVER, UNSPECIFIED Qualifiers: Fever type: unspecified Qualified Code(s): R50.9 - Fever, unspecified (8) HLD (hyperlipidemia) Code(s): E78.5 - HYPERLIPIDEMIA, UNSPECIFIED (9) Hypertension Code(s): I10 - ESSENTIAL (PRIMARY) HYPERTENSION Qualifiers: Hypertension type: other secondary hypertension Qualified Code(s): I15.8 - Other secondary hypertension (10) Sepsis Code(s): A41.9 - SEPSIS, UNSPECIFIED ORGANISM Qualifiers: Sepsis type: sepsis due to unspecified organism Qualified Code(s): A41.9 - Sepsis, unspecified organism (11) UTI (urinary tract infection) Code(s): N39.0 - URINARY TRACT INFECTION, SITE NOT SPECIFIED Assessment/Plan This is a 78 y.o. male with PMH of Metastatic Bladder CA (s/p chemotherapy over 3 wks ago) , currently with port in place, s/p urinary stent removal prior to last admission , DM, HTN, urinary retention s/p stent/rahman removal, s/p recent treatment for Sepsis due to ESBL + Klebsiella UTI/Bacteremia , and s/p TURP presenting with fever/weakness Sepsis b/l hydronephrosis Obstructive uropathy Met Bladder CA KARTHIKEYAN Urinary retention s/p TURP s/p UTI/Bacteremia DM plan await for the final plan continue watching rest continue current mgmt patient doing well
[2018-07-28] MEDS: FINASTERIDE 5 MG TABLET (FP) PO SCH (12:00)
[2018-07-28] MEDS: FLUCONAZOLE 100 MG TABLET (UD) PO SCH (12:00)
[2018-07-28] MEDS: ERTAPENEM SODIUM 1 GM in SODIUM CHLORIDE 50 ML IVPB SCH (12:00)
[2018-07-28] MEDS: NIFEdipine E.R. 30 MG TABLET (FP) PO SCH (12:00)
[2018-07-28] MEDS: TAMSULOSIN HCL 0.4 MG CAP PO SCH (12:00)
[2018-07-28] MEDS: MULTIVITAMINS THER W-MINERALS COMBO TABLET (FP) PO SCH (12:00)
--- NOTE | 2018-07-28 12:53 | PN ---
Progress Note (short form) - Note Progress Note: Patient seen and examined Spoke with Dr. Enamorado Had right stent placed Unable to pass left stent Nephrostomy tubes in place and will remain until it is determined that stent iws functioning and then may be able to be removed next week. Rahman catheter in place and to determine if cathete is to remain or TOV without rahman Last Vital Signs Temp Pulse Resp BP Pulse Ox 97.8 F 74 16 156/92 100 07/28/18 09:53 07/28/18 11:36 07/28/18 11:36 07/28/18 11:36 07/28/18 11:36 HEENT: FLETCHER, EOM Intact Oropharynx: No thrush, No mucositis Cor: RSR, No murmurs, No gallops Lungs: Clear to P&A Abd: Soft, Normal bowel sounds, No organomegaly Ext:No significant edema Skin: No rashes, Integument intact Nephrostomy tube drainage Rahman catheter drainage CBC, BMP 07/28/18 06:00 07/28/18 06:00 Current Medications Generic Name Dose Route Start Last Admin Trade Name Freq PRN Reason Stop Dose Admin Acetaminophen 650 mg 07/24/18 16:38 07/26/18 03:50 Tylenol - PO 650 mg Q6H PRN Administration FOR TEMP. OF 100 OR GREATER Docusate Sodium 100 mg 07/26/18 14:00 07/28/18 06:18 Colace - PO 100 mg TID LIT Administration Finasteride 5 mg 07/25/18 10:00 07/28/18 12:00 Proscar - PO 5 mg DAILY LIT Administration Fluconazole 100 mg 07/25/18 14:45 07/28/18 12:00 Diflucan - PO 100 mg DAILY LIT Administration IV Flush 10 ml 07/24/18 16:38 07/27/18 10:11 Carmela-Cath Flush IVPUSH 10 ml PRN PRN Administration protocol; maintain patency Ertapenem 1 gm/ Sodium 50 mls @ 50 mls/hr 07/27/18 14:45 07/28/18 12:00 Chloride IVPB 50 mls/hr DAILY LIT Administration Protocol Sodium Chloride 500 mls @ 21 mls/hr 07/28/18 10:30 Normal Saline - IV ASDIR LIT Insulin Aspart 1 vial 07/24/18 22:00 07/28/18 12:04 Novolog Vial Sliding Scale - SQ Not Given ACHS [facility] Protocol Metformin HCl 500 mg 07/25/18 07:00 07/28/18 06:18 Glucophage - PO 500 mg BID@0700,1630 LIT Administration Metoclopramide HCl 5 mg 07/24/18 16:38 Reglan Oral Solution - PO BID PRN NAUSEA Metoprolol Succinate 100 mg 07/25/18 10:00 07/28/18 12:00 Toprol Xl - PO 100 mg DAILY LIT Administration Multivitamins/Minerals 1 each 07/25/18 10:00 07/28/18 12:00 Theragran-M PO 1 each DAILY LIT Administration Nifedipine 30 mg 07/25/18 10:00 07/28/18 12:00 Procardia Xl - PO 30 mg DAILY LIT Administration Tamsulosin HCl 0.4 mg 07/25/18 08:30 07/28/18 12:00 Flomax - PO 0.4 mg DAILY@0830 LIT Administration Zolpidem Tartrate 5 mg 07/27/18 22:00 07/27/18 22:45 Ambien - PO 5 mg HS PRN Administration INSOMNIA Imprssion: s/p stent change on right and unsuccessful stent change on left Bladder ca with mets Anemia S/P sepsis Bilateral nephrostomy tubes Plan: follow up Nephrostomy tube removal after determining functionality Chemotherapy likely to be changed to immunotherpay ongoing Monitoring CBC chemistries. Rahman management per
--- NOTE | 2018-07-28 14:25 | PATH ---
Surgical Pathology Report Patient Name: MALATHI CHUA JR Med. Rec. #: [id number] /Age/Gender: 1940 (Age: 78) / M Account: [id number] Location: [facility] MED/SURG Taken: 07/24/2018 Received: 07/25/2018 Reported: 07/26/2018 Physicians: PHYSICIAN EMERGENCY DEPT Specimen(s) Received A: REMOVED STENT, RIGHT B: REMOVED STENT, LEFT Clinical History Acute kidney injury Final Diagnosis A. STENT, RIGHT, REMOVAL: URETERAL STENT. MACROSCOPIC DIAGNOSIS. B. STENT, LEFT, REMOVAL: URETERAL STENT. MACROSCOPIC DIAGNOSIS. Electronically Signed Sandi Rose M.D. Gross Description A. Received fresh labeled "right removed stent," is a 35 cm in length montgomery-blue, coiled portion of tubing, consistent with a ureteral stent. No soft tissue is present. No sections are submitted, gross only. B. Received fresh labeled "left removed stent," is a 35 cm in length montgomery-blue, coiled portion of tubing, consistent with a ureteral stent. No soft tissue is present. No sections are submitted, gross only. DL/07/25/2018 saudi07/25/2018
--- NOTE | 2018-07-28 16:27 | PN ---
Progress Note (short form) - Note Progress Note: Renal Follow up for KARTHIKEYAN Pt seen and examined at the bedside no acute complaints no sob, cp, abd pain, N/V/D s/p stent exchange by IR but only able to pass one stent Nephrostomy tubes still present Vital Signs Temperature 97.7 F 07/28/18 15:23 Pulse Rate 75 07/28/18 15:23 Respiratory Rate 20 07/28/18 15:23 Blood Pressure 143/93 07/28/18 15:23 O2 Sat by Pulse Oximetry (%) 100 07/28/18 11:36 Intake & Output 07/25/18 07/26/18 07/27/18 07/28/18 23:59 23:59 23:59 23:59 Intake Total 50 500 250 Output Total 3325 3600 2800 1500 Balance -3275 -3100 -2800 -1250 NAD MMM, No JVD RRR, NO M/R CTA soft NT/ND no bladder distension CBC, BMP 07/28/18 06:00 07/28/18 06:00 Current Medications Acetaminophen (Tylenol -) 650 mg PO Q6H PRN PRN Reason: FOR TEMP. OF 100 OR GREATER Last Admin: 07/26/18 03:50 Dose: 650 mg Docusate Sodium (Colace -) 100 mg PO TID [facility] Last Admin: 07/28/18 13:27 Dose: Not Given Finasteride (Proscar -) 5 mg PO DAILY [facility] Last Admin: 07/28/18 12:00 Dose: 5 mg Fluconazole (Diflucan -) 100 mg PO DAILY [facility] Last Admin: 07/28/18 12:00 Dose: 100 mg IV Flush (Carmela-Cath Flush) 10 ml IVPUSH PRN PRN PRN Reason: protocol; maintain patency Last Admin: 07/27/18 10:11 Dose: 10 ml Ertapenem 1 gm/ Sodium (Chloride) 50 mls @ 50 mls/hr IVPB DAILY [facility]; Protocol Last Admin: 07/28/18 12:00 Dose: 50 mls/hr Sodium Chloride (Normal Saline -) 500 mls @ 21 mls/hr IV ASDIR LIT Insulin Aspart (Novolog Vial Sliding Scale -) 1 vial SQ ACHS [facility]; Protocol Last Admin: 07/28/18 12:04 Dose: Not Given Metformin HCl (Glucophage -) 500 mg PO BID@0700,1630 [facility] Last Admin: 07/28/18 06:18 Dose: 500 mg Metoclopramide HCl (Reglan Oral Solution -) 5 mg PO BID PRN PRN Reason: NAUSEA Metoprolol Succinate (Toprol Xl -) 100 mg PO DAILY [facility] Last Admin: 07/28/18 12:00 Dose: 100 mg Multivitamins/Minerals (Theragran-M) 1 each PO DAILY [facility] Last Admin: 07/28/18 12:00 Dose: 1 each Nifedipine (Procardia Xl -) 30 mg PO DAILY [facility] Last Admin: 07/28/18 12:00 Dose: 30 mg Tamsulosin HCl (Flomax -) 0.4 mg PO DAILY@0830 [facility] Last Admin: 07/28/18 12:00 Dose: 0.4 mg Zolpidem Tartrate (Ambien -) 5 mg PO HS PRN PRN Reason: INSOMNIA Last Admin: 07/27/18 22:45 Dose: 5 mg 78 year old gentleman with Hx of Metastatic breast ca s/p chemo, Hx of hydronephrosis (s/p stenting), DM, Hypertension, Cirrhosis who presented with urinary retention and KARTHIKEYAN. #KARTHIKEYAN secondary to bladder outlet obstruction + upper level obstruction at level of kidney #Metastatic bladder Ca #Metabolic acidosis #Anemia #DM Renal function improved s/p nephrostomy tube placement s/p stent exchange Trend BUN/Cr Urology follow up renal function and electrolytes stable Shalom Alarcon DO
--- NOTE | 2018-07-28 17:41 | PN ---
Progress Note (short form) - Note Progress Note: UROLOGY NOTE 78 Y/O Male patient with history of bladder tumor with mets. bilateral hydronephrosis S/P bilateral jj stent insertion and bilateral nephrostomies. on rahman catheter. his HGB 7.9 urea 21, s.creat 0.8 both nephrostomy tubes were clamped. Plan: patient will discharge with clamped nephrostomies and rahman catheter will D/C nephrostomies next week. will see him in the office to D/C rahman catheter.
[2018-07-28] MEDS: SODIUM CHLORIDE 500 ML IV SCH (18:56)
[2018-07-28] MEDS: ZOLPIDEM TARTRATE 5 MG TABLET PO PRN (22:08)
--- NOTE | 2018-07-28 23:30 | PN ---
Progress Note, Physician - Current Medication List Current Medications: Active Medications Acetaminophen (Tylenol -) 650 mg PO Q6H PRN PRN Reason: FOR TEMP. OF 100 OR GREATER Last Admin: 07/26/18 03:50 Dose: 650 mg Docusate Sodium (Colace -) 100 mg PO TID [facility] Last Admin: 07/28/18 22:09 Dose: Not Given Finasteride (Proscar -) 5 mg PO DAILY [facility] Last Admin: 07/28/18 12:00 Dose: 5 mg Fluconazole (Diflucan -) 100 mg PO DAILY [facility] Last Admin: 07/28/18 12:00 Dose: 100 mg IV Flush (Carmela-Cath Flush) 10 ml IVPUSH PRN PRN PRN Reason: protocol; maintain patency Last Admin: 07/27/18 10:11 Dose: 10 ml Ertapenem 1 gm/ Sodium (Chloride) 50 mls @ 50 mls/hr IVPB DAILY [facility]; Protocol Last Admin: 07/28/18 12:00 Dose: 50 mls/hr Sodium Chloride (Normal Saline -) 500 mls @ 21 mls/hr IV ASDIR [facility] Last Admin: 07/28/18 18:56 Dose: 21 mls/hr Insulin Aspart (Novolog Vial Sliding Scale -) 1 vial SQ ACHS [facility]; Protocol Last Admin: 07/28/18 22:08 Dose: 2 units Metformin HCl (Glucophage -) 500 mg PO BID@0700,1630 [facility] Last Admin: 07/28/18 16:39 Dose: 500 mg Metoclopramide HCl (Reglan Oral Solution -) 5 mg PO BID PRN PRN Reason: NAUSEA Last Admin: 07/28/18 18:58 Dose: 5 mg Metoprolol Succinate (Toprol Xl -) 100 mg PO DAILY [facility] Last Admin: 07/28/18 12:00 Dose: 100 mg Multivitamins/Minerals (Theragran-M) 1 each PO DAILY [facility] Last Admin: 07/28/18 12:00 Dose: 1 each Nifedipine (Procardia Xl -) 30 mg PO DAILY [facility] Last Admin: 07/28/18 12:00 Dose: 30 mg Tamsulosin HCl (Flomax -) 0.4 mg PO DAILY@0830 [facility] Last Admin: 07/28/18 12:00 Dose: 0.4 mg Zolpidem Tartrate (Ambien -) 5 mg PO HS PRN PRN Reason: INSOMNIA Last Admin: 07/28/18 22:08 Dose: 5 mg - Objective Vital Signs: Vital Signs Temperature 97.7 F 07/28/18 18:52 Pulse Rate 76 07/28/18 18:52 Respiratory Rate 20 07/28/18 18:52 Blood Pressure 117/78 07/28/18 18:52 O2 Sat by Pulse Oximetry (%) 100 07/28/18 11:36 Labs: CBC, BMP 07/28/18 06:00 07/28/18 06:00 INR, PTT INR 1.26 (0.83-1.09) H 07/14/18 21:35 Problem List - Problems (1) 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 Code(s): C79.9 - SECONDARY MALIGNANT NEOPLASM OF UNSPECIFIED SITE; C67.9 - MALIGNANT NEOPLASM OF BLADDER, UNSPECIFIED (2) Sepsis Code(s): A41.9 - SEPSIS, UNSPECIFIED ORGANISM Qualifiers: Sepsis type: sepsis due to unspecified organism Qualified Code(s): A41.9 - Sepsis, unspecified organism (3) Acute on chronic renal failure Code(s): N17.9 - ACUTE KIDNEY FAILURE, UNSPECIFIED; N18.9 - CHRONIC KIDNEY DISEASE, UNSPECIFIED Qualifiers: Acute renal failure type: unspecified Chronic kidney disease stage: stage 3 (moderate) Qualified Code(s): N17.9 - Acute kidney failure, unspecified; N18.3 - Chronic kidney disease, stage 3 (moderate) (4) Anemia Code(s): D64.9 - ANEMIA, UNSPECIFIED Qualifiers: Anemia type: due to chronic kidney disease Chronic kidney disease stage: stage 3 (moderate) Qualified Code(s): N18.3 - Chronic kidney disease, stage 3 (moderate); D63.1 - Anemia in chronic kidney disease (5) BPH (benign prostatic hyperplasia) Code(s): N40.0 - BENIGN PROSTATIC HYPERPLASIA WITHOUT LOWER URINRY TRACT SYMP (6) Diabetes Code(s): E11.9 - TYPE 2 DIABETES MELLITUS WITHOUT COMPLICATIONS (7) HLD (hyperlipidemia) Code(s): E78.5 - HYPERLIPIDEMIA, UNSPECIFIED (8) Hypertension Code(s): I10 - ESSENTIAL (PRIMARY) HYPERTENSION Qualifiers: Hypertension type: other secondary hypertension Qualified Code(s): I15.8 - Other secondary hypertension
[2018-07-29] MEDS: metFORMIN HCL 500 MG TABLET (FP) PO SCH ×2 (06:36→16:46)
[2018-07-29] MEDS: DOCUSATE SODIUM 100 MG CAPSULE (FP) PO SCH ×3 (06:36→21:54)
[2018-07-29] MEDS: INSULIN SLIDING SCALE (NOVOLOG) 1 VIAL SQ SCH ×4 (06:36→21:54)
[2018-07-29] MEDS ORDERED: INSULIN (NOVOLOG) ASPART 100 UNITS/ML 10ML VIAL ONE ×2 (07:01→20:28)
[2018-07-29] MEDS: TAMSULOSIN HCL 0.4 MG CAP PO SCH (09:19)
[2018-07-29] MEDS: MULTIVITAMINS THER W-MINERALS COMBO TABLET (FP) PO SCH (09:19)
[2018-07-29] MEDS: NIFEdipine E.R. 30 MG TABLET (FP) PO SCH (09:19)
[2018-07-29] MEDS: FLUCONAZOLE 100 MG TABLET (UD) PO SCH (09:19)
[2018-07-29] MEDS: FINASTERIDE 5 MG TABLET (FP) PO SCH (09:19)
[2018-07-29] MEDS: ERTAPENEM SODIUM 1 GM in SODIUM CHLORIDE 50 ML IVPB SCH (09:19)
[2018-07-29] MEDS: SODIUM CHLORIDE 500 ML IV SCH (11:48)
--- NOTE | 2018-07-29 14:22 | PN ---
Progress Note, Physician Chief Complaint: Metastatic bladder ca History of Present Illness: Feels well. Denies pain. Episode of loose stool yesterday after laxatives. - Current Medication List Current Medications: Active Medications Acetaminophen (Tylenol -) 650 mg PO Q6H PRN PRN Reason: FOR TEMP. OF 100 OR GREATER Last Admin: 07/26/18 03:50 Dose: 650 mg Docusate Sodium (Colace -) 100 mg PO TID [facility] Last Admin: 07/29/18 13:26 Dose: Not Given Finasteride (Proscar -) 5 mg PO DAILY [facility] Last Admin: 07/29/18 09:19 Dose: 5 mg Fluconazole (Diflucan -) 100 mg PO DAILY [facility] Last Admin: 07/29/18 09:19 Dose: 100 mg IV Flush (Carmela-Cath Flush) 10 ml IVPUSH PRN PRN PRN Reason: protocol; maintain patency Last Admin: 07/27/18 10:11 Dose: 10 ml Ertapenem 1 gm/ Sodium (Chloride) 50 mls @ 50 mls/hr IVPB DAILY [facility]; Protocol Last Admin: 07/29/18 09:19 Dose: 50 mls/hr Sodium Chloride (Normal Saline -) 500 mls @ 21 mls/hr IV ASDIR [facility] Last Admin: 07/29/18 11:48 Dose: 21 mls/hr Insulin Aspart (Novolog Vial Sliding Scale -) 1 vial SQ ACHS [facility]; Protocol Last Admin: 07/29/18 11:47 Dose: Not Given Metformin HCl (Glucophage -) 500 mg PO BID@0700,1630 [facility] Last Admin: 07/29/18 06:36 Dose: 500 mg Metoclopramide HCl (Reglan Oral Solution -) 5 mg PO BID PRN PRN Reason: NAUSEA Last Admin: 07/28/18 18:58 Dose: 5 mg Metoprolol Succinate (Toprol Xl -) 100 mg PO DAILY [facility] Last Admin: 07/29/18 09:19 Dose: 100 mg Multivitamins/Minerals (Theragran-M) 1 each PO DAILY [facility] Last Admin: 07/29/18 09:19 Dose: 1 each Nifedipine (Procardia Xl -) 30 mg PO DAILY [facility] Last Admin: 07/29/18 09:19 Dose: 30 mg Tamsulosin HCl (Flomax -) 0.4 mg PO DAILY@0830 [facility] Last Admin: 07/29/18 09:19 Dose: 0.4 mg Zolpidem Tartrate (Ambien -) 5 mg PO HS PRN PRN Reason: INSOMNIA Last Admin: 07/28/18 22:08 Dose: 5 mg - Objective Vital Signs: Vital Signs Temperature 98 F 07/29/18 09:16 Pulse Rate 92 H 07/29/18 09:16 Respiratory Rate 20 07/29/18 09:16 Blood Pressure 123/79 07/29/18 09:16 O2 Sat by Pulse Oximetry (%) 98 07/29/18 09:00 Constitutional: Yes: Well Nourished, Calm Cardiovascular: Yes: Regular Rate and Rhythm Respiratory: Yes: Regular, CTA Bilaterally Gastrointestinal: Yes: Soft, Other (PCN in place). No: Distention, Tenderness, Rebound Genitourinary: Yes: Galarza Present Edema: No Labs: CBC, BMP 07/28/18 06:00 07/28/18 06:00 INR, PTT INR 1.26 (0.83-1.09) H 07/14/18 21:35 Assessment/Plan s/p right stent change and unsuccessful attempt at left stent change following Outpatient follow up for further treatment of bladder ca, likely immnotherapy Mointor labs, no results yet today
--- NOTE | 2018-07-29 19:30 | PN ---
Progress Note, Physician History of Present Illness: Pt is alert, afebrile. No specific complaints. - Current Medication List Current Medications: Active Medications Acetaminophen (Tylenol -) 650 mg PO Q6H PRN PRN Reason: FOR TEMP. OF 100 OR GREATER Last Admin: 07/26/18 03:50 Dose: 650 mg Docusate Sodium (Colace -) 100 mg PO TID [facility] Last Admin: 07/29/18 13:26 Dose: Not Given Finasteride (Proscar -) 5 mg PO DAILY [facility] Last Admin: 07/29/18 09:19 Dose: 5 mg Fluconazole (Diflucan -) 100 mg PO DAILY [facility] Last Admin: 07/29/18 09:19 Dose: 100 mg IV Flush (Carmela-Cath Flush) 10 ml IVPUSH PRN PRN PRN Reason: protocol; maintain patency Last Admin: 07/27/18 10:11 Dose: 10 ml Ertapenem 1 gm/ Sodium (Chloride) 50 mls @ 50 mls/hr IVPB DAILY [facility]; Protocol Last Admin: 07/29/18 09:19 Dose: 50 mls/hr Sodium Chloride (Normal Saline -) 500 mls @ 21 mls/hr IV ASDIR [facility] Last Admin: 07/29/18 11:48 Dose: 21 mls/hr Insulin Aspart (Novolog Vial Sliding Scale -) 1 vial SQ ACHS [facility]; Protocol Last Admin: 07/29/18 16:45 Dose: Not Given Metformin HCl (Glucophage -) 500 mg PO BID@0700,1630 [facility] Last Admin: 07/29/18 16:46 Dose: 500 mg Metoclopramide HCl (Reglan Oral Solution -) 5 mg PO BID PRN PRN Reason: NAUSEA Last Admin: 07/28/18 18:58 Dose: 5 mg Metoprolol Succinate (Toprol Xl -) 100 mg PO DAILY [facility] Last Admin: 07/29/18 09:19 Dose: 100 mg Multivitamins/Minerals (Theragran-M) 1 each PO DAILY [facility] Last Admin: 07/29/18 09:19 Dose: 1 each Nifedipine (Procardia Xl -) 30 mg PO DAILY [facility] Last Admin: 07/29/18 09:19 Dose: 30 mg Tamsulosin HCl (Flomax -) 0.4 mg PO DAILY@0830 [facility] Last Admin: 10/13/18 09:19 Dose: 0.4 mg Zolpidem Tartrate (Ambien -) 5 mg PO HS PRN PRN Reason: INSOMNIA Last Admin: 07/28/18 22:08 Dose: 5 mg - Objective Vital Signs: Vital Signs Temperature 98.3 F 07/29/18 16:30 Pulse Rate 78 07/29/18 16:30 Respiratory Rate 18 07/29/18 16:30 Blood Pressure 114/75 07/29/18 16:30 O2 Sat by Pulse Oximetry (%) 98 07/29/18 09:00 Constitutional: Yes: No Distress Cardiovascular: Yes: Regular Rate and Rhythm Respiratory: Yes: Regular Gastrointestinal: Yes: Normal Bowel Sounds, Soft Genitourinary: Yes: Other (+PCN) Extremities: Yes: WNL Neurological: Yes: Alert, Oriented Labs: CBC, BMP 07/28/18 06:00 07/28/18 06:00 INR, PTT INR 1.26 (0.83-1.09) H 07/14/18 21:35 Problem List - Problems (1) KARTHIKEYAN (acute kidney injury) Code(s): N17.9 - ACUTE KIDNEY FAILURE, UNSPECIFIED (2) Anemia Code(s): D64.9 - ANEMIA, UNSPECIFIED Qualifiers: Anemia type: due to chronic kidney disease Chronic kidney disease stage: stage 3 (moderate) Qualified Code(s): N18.3 - Chronic kidney disease, stage 3 (moderate); D63.1 - Anemia in chronic kidney disease (3) Lactic acidosis Code(s): E87.2 - ACIDOSIS (4) 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 Code(s): C79.9 - SECONDARY MALIGNANT NEOPLASM OF UNSPECIFIED SITE; C67.9 - MALIGNANT NEOPLASM OF BLADDER, UNSPECIFIED (5) BPH (benign prostatic hyperplasia) Code(s): N40.0 - BENIGN PROSTATIC HYPERPLASIA WITHOUT LOWER URINRY TRACT SYMP (6) Diabetes Code(s): E11.9 - TYPE 2 DIABETES MELLITUS WITHOUT COMPLICATIONS (7) Fever Code(s): R50.9 - FEVER, UNSPECIFIED Qualifiers: Fever type: unspecified Qualified Code(s): R50.9 - Fever, unspecified (8) HLD (hyperlipidemia) Code(s): E78.5 - HYPERLIPIDEMIA, UNSPECIFIED (9) Hypertension Code(s): I10 - ESSENTIAL (PRIMARY) HYPERTENSION Qualifiers: Hypertension type: other secondary hypertension Qualified Code(s): I15.8 - Other secondary hypertension (10) Sepsis Code(s): A41.9 - SEPSIS, UNSPECIFIED ORGANISM Qualifiers: Sepsis type: sepsis due to unspecified organism Qualified Code(s): A41.9 - Sepsis, unspecified organism (11) UTI (urinary tract infection) Code(s): N39.0 - URINARY TRACT INFECTION, SITE NOT SPECIFIED Qualifiers: Urinary tract infection type: catheter-associated UTI Indwelling urinary catheter type: indwelling urethral catheter Encounter type: initial encounter Qualified Code(s): T83.511A - Infection and inflammatory reaction due to indwelling urethral catheter, initial encounter; N39.0 - Urinary tract infection , site not specified Assessment/Plan Sepsis b/l hydronephrosis s/p PCN Obstructive uropathy - s/p stent exchange, unable to pass stent on Lt side Met Bladder CA KARTHIKEYAN Urinary retention s/p TURP s/p UTI/Bacteremia DM -- restarted on Ertapenem -- /Oncology f/u -- pt afebrile, without distress continue monitor
[2018-07-29] MEDS: ZOLPIDEM TARTRATE 5 MG TABLET PO PRN (21:54)
--- NOTE | 2018-07-29 23:04 | PN ---
Progress Note, Physician - Current Medication List Current Medications: Active Medications Acetaminophen (Tylenol -) 650 mg PO Q6H PRN PRN Reason: FOR TEMP. OF 100 OR GREATER Last Admin: 07/26/18 03:50 Dose: 650 mg Docusate Sodium (Colace -) 100 mg PO TID [facility] Last Admin: 07/29/18 21:54 Dose: 100 mg Finasteride (Proscar -) 5 mg PO DAILY [facility] Last Admin: 07/29/18 09:19 Dose: 5 mg Fluconazole (Diflucan -) 100 mg PO DAILY [facility] Last Admin: 07/29/18 09:19 Dose: 100 mg IV Flush (Carmela-Cath Flush) 10 ml IVPUSH PRN PRN PRN Reason: protocol; maintain patency Last Admin: 07/27/18 10:11 Dose: 10 ml Ertapenem 1 gm/ Sodium (Chloride) 50 mls @ 50 mls/hr IVPB DAILY [facility]; Protocol Last Admin: 07/29/18 09:19 Dose: 50 mls/hr Sodium Chloride (Normal Saline -) 500 mls @ 21 mls/hr IV ASDIR [facility] Last Admin: 07/29/18 11:48 Dose: 21 mls/hr Insulin Aspart (Novolog Vial Sliding Scale -) 1 vial SQ ACHS [facility]; Protocol Last Admin: 07/29/18 21:54 Dose: Not Given Metformin HCl (Glucophage -) 500 mg PO BID@0700,1630 [facility] Last Admin: 07/29/18 16:46 Dose: 500 mg Metoclopramide HCl (Reglan Oral Solution -) 5 mg PO BID PRN PRN Reason: NAUSEA Last Admin: 07/28/18 18:58 Dose: 5 mg Metoprolol Succinate (Toprol Xl -) 100 mg PO DAILY [facility] Last Admin: 07/29/18 09:19 Dose: 100 mg Multivitamins/Minerals (Theragran-M) 1 each PO DAILY [facility] Last Admin: 07/29/18 09:19 Dose: 1 each Nifedipine (Procardia Xl -) 30 mg PO DAILY [facility] Last Admin: 07/29/18 09:19 Dose: 30 mg Tamsulosin HCl (Flomax -) 0.4 mg PO DAILY@0830 [facility] Last Admin: 07/29/18 09:19 Dose: 0.4 mg Zolpidem Tartrate (Ambien -) 5 mg PO HS PRN PRN Reason: INSOMNIA Last Admin: 07/29/18 21:54 Dose: 5 mg - Objective Vital Signs: Vital Signs Temperature 98.3 F 07/29/18 16:30 Pulse Rate 78 07/29/18 16:30 Respiratory Rate 18 07/29/18 16:30 Blood Pressure 114/75 07/29/18 16:30 O2 Sat by Pulse Oximetry (%) 98 07/29/18 09:00 Labs: CBC, BMP 07/28/18 06:00 07/28/18 06:00 INR, PTT INR 1.26 (0.83-1.09) H 07/14/18 21:35 Problem List - Problems (1) 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 Code(s): C79.9 - SECONDARY MALIGNANT NEOPLASM OF UNSPECIFIED SITE; C67.9 - MALIGNANT NEOPLASM OF BLADDER, UNSPECIFIED (2) Sepsis Code(s): A41.9 - SEPSIS, UNSPECIFIED ORGANISM Qualifiers: Sepsis type: sepsis due to unspecified organism Qualified Code(s): A41.9 - Sepsis, unspecified organism (3) Acute on chronic renal failure Code(s): N17.9 - ACUTE KIDNEY FAILURE, UNSPECIFIED; N18.9 - CHRONIC KIDNEY DISEASE, UNSPECIFIED Qualifiers: Acute renal failure type: unspecified Chronic kidney disease stage: stage 3 (moderate) Qualified Code(s): N17.9 - Acute kidney failure, unspecified; N18.3 - Chronic kidney disease, stage 3 (moderate) (4) Anemia Code(s): D64.9 - ANEMIA, UNSPECIFIED Qualifiers: Anemia type: due to chronic kidney disease Chronic kidney disease stage: stage 3 (moderate) Qualified Code(s): N18.3 - Chronic kidney disease, stage 3 (moderate); D63.1 - Anemia in chronic kidney disease (5) BPH (benign prostatic hyperplasia) Code(s): N40.0 - BENIGN PROSTATIC HYPERPLASIA WITHOUT LOWER URINRY TRACT SYMP (6) Diabetes Code(s): E11.9 - TYPE 2 DIABETES MELLITUS WITHOUT COMPLICATIONS (7) HLD (hyperlipidemia) Code(s): E78.5 - HYPERLIPIDEMIA, UNSPECIFIED (8) Hypertension Code(s): I10 - ESSENTIAL (PRIMARY) HYPERTENSION Qualifiers: Hypertension type: other secondary hypertension Qualified Code(s): I15.8 - Other secondary hypertension
[2018-07-30] MEDS: ACETAMINOPHEN 325 MG TABLET (FP) PO PRN (01:01)
[2018-07-30] MEDS: PORTA CATH FLUSH 10 ML IVPUSH PRN (05:55)
[2018-07-30] MEDS: DOCUSATE SODIUM 100 MG CAPSULE (FP) PO SCH ×3 (05:56→21:15)
[2018-07-30] MEDS: metFORMIN HCL 500 MG TABLET (FP) PO SCH ×2 (06:00→17:05)
[2018-07-30] MEDS: INSULIN SLIDING SCALE (NOVOLOG) 1 VIAL SQ SCH ×4 (06:02→21:16)
[2018-07-30] MEDS ORDERED: INSULIN (NOVOLOG) ASPART 100 UNITS/ML 10ML VIAL ONE ×2 (06:56→11:00)
[2018-07-30 07:20] LABS: HEMOGLOBIN 7.7 GM/dL (11.7-16.9); MCH 22.8 pg (25.7-33.7); MCHC 32.2 g/dl (32.0-35.9); MEAN CELL VOLUME 70.9 fl (80-96); MEAN PLT VOLUME 9.3 fl (7.5-11.1); PLATELET COUNT 298 K/MM3 (134-434); RBC 3.38 M/mm3 (4.00-5.60); RDW 25.3 % (11.9-15.9); WHITE BLOOD COUNT 8.3 K/mm3 (4.0-10.0)
[2018-07-30 08:11] LABS: ALBUMIN 2.3 g/dl (3.4-5.0); ALK PHOS 652 U/L (45-117); ANION GAP 8 MMOL/L (8-16); BILIRUBIN,TOTAL 0.7 mg/dL (0.2-1); BLOOD UREA NITROGEN 17 mg/dL (7-18); CALCIUM 8.1 mg/dL (8.5-10.1); CHLORIDE 103 mmol/L (98-107); CO2 27 mmol/L (21-32); CREATININE 0.7 mg/dL (0.55-1.3); GLUCOSE,RANDOM 109 mg/dL (74-106); POTASSIUM 4.1 mmol/L (3.5-5.1); SGOT/AST 26 U/L (15-37); SGPT/ALT 30 U/L (13-61); SODIUM 138 mmol/L (136-145); TOT PROT 6.6 g/dl (6.4-8.2)
[2018-07-30] MEDS: TAMSULOSIN HCL 0.4 MG CAP PO SCH (08:44)
[2018-07-30] MEDS: FLUCONAZOLE 100 MG TABLET (UD) PO SCH (09:42)
[2018-07-30] MEDS: FINASTERIDE 5 MG TABLET (FP) PO SCH (09:43)
[2018-07-30] MEDS: NIFEdipine E.R. 30 MG TABLET (FP) PO SCH (09:43)
[2018-07-30] MEDS: ERTAPENEM SODIUM 1 GM in SODIUM CHLORIDE 50 ML IVPB SCH (09:43)
[2018-07-30] MEDS: MULTIVITAMINS THER W-MINERALS COMBO TABLET (FP) PO SCH (09:43)
[2018-07-30] MEDS: SODIUM CHLORIDE 500 ML IV SCH (11:09)
--- NOTE | 2018-07-30 15:04 | PN ---
Progress Note, Physician Chief Complaint: Metastatic bladder ca History of Present Illness: Feels well. No complaints. Notes more clear urine in bags. Denies pain at PCN site. - Current Medication List Current Medications: Active Medications Acetaminophen (Tylenol -) 650 mg PO Q6H PRN PRN Reason: FOR TEMP. OF 100 OR GREATER Last Admin: 07/30/18 01:01 Dose: 650 mg Docusate Sodium (Colace -) 100 mg PO TID [facility] Last Admin: 07/30/18 14:00 Dose: Not Given Finasteride (Proscar -) 5 mg PO DAILY [facility] Last Admin: 07/30/18 09:43 Dose: 5 mg Fluconazole (Diflucan -) 100 mg PO DAILY [facility] Last Admin: 07/30/18 09:42 Dose: 100 mg IV Flush (Carmela-Cath Flush) 10 ml IVPUSH PRN PRN PRN Reason: protocol; maintain patency Last Admin: 07/30/18 05:55 Dose: 10 ml Ertapenem 1 gm/ Sodium (Chloride) 50 mls @ 50 mls/hr IVPB DAILY [facility]; Protocol Last Admin: 07/30/18 09:43 Dose: 50 mls/hr Sodium Chloride (Normal Saline -) 500 mls @ 21 mls/hr IV ASDIR [facility] Last Admin: 07/30/18 11:09 Dose: 21 mls/hr Insulin Aspart (Novolog Vial Sliding Scale -) 1 vial SQ ACHS [facility]; Protocol Last Admin: 07/30/18 11:12 Dose: Not Given Metformin HCl (Glucophage -) 500 mg PO BID@0700,1630 [facility] Last Admin: 07/30/18 06:00 Dose: 500 mg Metoclopramide HCl (Reglan Oral Solution -) 5 mg PO BID PRN PRN Reason: NAUSEA Last Admin: 07/28/18 18:58 Dose: 5 mg Metoprolol Succinate (Toprol Xl -) 100 mg PO DAILY [facility] Last Admin: 07/30/18 09:43 Dose: 100 mg Multivitamins/Minerals (Theragran-M) 1 each PO DAILY [facility] Last Admin: 07/30/18 09:43 Dose: 1 each Nifedipine (Procardia Xl -) 30 mg PO DAILY [facility] Last Admin: 07/30/18 09:43 Dose: 30 mg Tamsulosin HCl (Flomax -) 0.4 mg PO DAILY@0830 [facility] Last Admin: 07/30/18 08:44 Dose: 0.4 mg Zolpidem Tartrate (Ambien -) 5 mg PO HS PRN PRN Reason: INSOMNIA Last Admin: 07/29/18 21:54 Dose: 5 mg - Objective Vital Signs: Vital Signs Temperature 97.6 F 07/30/18 13:45 Pulse Rate 71 07/30/18 13:45 Respiratory Rate 18 07/30/18 13:45 Blood Pressure 122/74 07/30/18 13:45 O2 Sat by Pulse Oximetry (%) 98 07/30/18 09:00 Constitutional: Yes: No Distress, Calm Cardiovascular: Yes: Regular Rate and Rhythm Respiratory: Yes: Regular, CTA Bilaterally Gastrointestinal: Yes: Soft. 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
--- NOTE | 2018-07-30 19:18 | PN ---
Progress Note, Physician History of Present Illness: Pt afebrile, without complaints. Clear urine draining from rahman. - Current Medication List Current Medications: Active Medications Acetaminophen (Tylenol -) 650 mg PO Q6H PRN PRN Reason: FOR TEMP. OF 100 OR GREATER Last Admin: 07/30/18 01:01 Dose: 650 mg Docusate Sodium (Colace -) 100 mg PO TID [facility] Last Admin: 07/30/18 14:00 Dose: Not Given Finasteride (Proscar -) 5 mg PO DAILY [facility] Last Admin: 07/30/18 09:43 Dose: 5 mg Fluconazole (Diflucan -) 100 mg PO DAILY [facility] Last Admin: 07/30/18 09:42 Dose: 100 mg IV Flush (Carmela-Cath Flush) 10 ml IVPUSH PRN PRN PRN Reason: protocol; maintain patency Last Admin: 07/30/18 05:55 Dose: 10 ml Ertapenem 1 gm/ Sodium (Chloride) 50 mls @ 50 mls/hr IVPB DAILY [facility]; Protocol Last Admin: 07/30/18 09:43 Dose: 50 mls/hr Sodium Chloride (Normal Saline -) 500 mls @ 21 mls/hr IV ASDIR [facility] Last Admin: 07/30/18 11:09 Dose: 21 mls/hr Insulin Aspart (Novolog Vial Sliding Scale -) 1 vial SQ ACHS [facility]; Protocol Last Admin: 07/30/18 17:09 Dose: 4 units Metformin HCl (Glucophage -) 500 mg PO BID@0700,1630 [facility] Last Admin: 07/30/18 17:05 Dose: 500 mg Metoclopramide HCl (Reglan Oral Solution -) 5 mg PO BID PRN PRN Reason: NAUSEA Last Admin: 07/28/18 18:58 Dose: 5 mg Metoprolol Succinate (Toprol Xl -) 100 mg PO DAILY [facility] Last Admin: 07/30/18 09:43 Dose: 100 mg Multivitamins/Minerals (Theragran-M) 1 each PO DAILY [facility] Last Admin: 07/30/18 09:43 Dose: 1 each Nifedipine (Procardia Xl -) 30 mg PO DAILY [facility] Last Admin: 07/30/18 09:43 Dose: 30 mg Tamsulosin HCl (Flomax -) 0.4 mg PO DAILY@0830 [facility] Last Admin: 07/30/18 08:44 Dose: 0.4 mg Zolpidem Tartrate (Ambien -) 5 mg PO HS PRN PRN Reason: INSOMNIA Last Admin: 07/29/18 21:54 Dose: 5 mg - Objective Vital Signs: Vital Signs Temperature 98 F 07/30/18 16:30 Pulse Rate 79 07/30/18 16:30 Respiratory Rate 18 07/30/18 16:30 Blood Pressure 111/75 07/30/18 16:30 O2 Sat by Pulse Oximetry (%) 98 07/30/18 09:00 Constitutional: Yes: No Distress, Calm Cardiovascular: Yes: Regular Rate and Rhythm Respiratory: Yes: Regular Gastrointestinal: Yes: Normal Bowel Sounds, Soft Genitourinary: Yes: Rahman Present, Other (PCN in place) Extremities: Yes: WNL Neurological: Yes: Alert, Oriented Labs: CBC, BMP 07/30/18 06:00 07/30/18 06:00 INR, PTT INR 1.26 (0.83-1.09) H 07/14/18 21:35 Problem List - Problems (1) KARTHIKEYAN (acute kidney injury) Code(s): N17.9 - ACUTE KIDNEY FAILURE, UNSPECIFIED (2) Anemia Code(s): D64.9 - ANEMIA, UNSPECIFIED Qualifiers: Anemia type: due to chronic kidney disease Chronic kidney disease stage: stage 3 (moderate) Qualified Code(s): N18.3 - Chronic kidney disease, stage 3 (moderate); D63.1 - Anemia in chronic kidney disease (3) Lactic acidosis Code(s): E87.2 - ACIDOSIS (4) 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 Code(s): C79.9 - SECONDARY MALIGNANT NEOPLASM OF UNSPECIFIED SITE; C67.9 - MALIGNANT NEOPLASM OF BLADDER, UNSPECIFIED (5) BPH (benign prostatic hyperplasia) Code(s): N40.0 - BENIGN PROSTATIC HYPERPLASIA WITHOUT LOWER URINRY TRACT SYMP (6) Diabetes Code(s): E11.9 - TYPE 2 DIABETES MELLITUS WITHOUT COMPLICATIONS (7) Fever Code(s): R50.9 - FEVER, UNSPECIFIED Qualifiers: Fever type: unspecified Qualified Code(s): R50.9 - Fever, unspecified (8) HLD (hyperlipidemia) Code(s): E78.5 - HYPERLIPIDEMIA, UNSPECIFIED (9) Hypertension Code(s): I10 - ESSENTIAL (PRIMARY) HYPERTENSION Qualifiers: Hypertension type: other secondary hypertension Qualified Code(s): I15.8 - Other secondary hypertension (10) Sepsis Code(s): A41.9 - SEPSIS, UNSPECIFIED ORGANISM Qualifiers: Sepsis type: sepsis due to unspecified organism Qualified Code(s): A41.9 - Sepsis, unspecified organism (11) UTI (urinary tract infection) Code(s): N39.0 - URINARY TRACT INFECTION, SITE NOT SPECIFIED Qualifiers: Urinary tract infection type: catheter-associated UTI Indwelling urinary catheter type: indwelling urethral catheter Encounter type: initial encounter Qualified Code(s): T83.511A - Infection and inflammatory reaction due to indwelling urethral catheter, initial encounter; N39.0 - Urinary tract infection , site not specified Assessment/Plan Sepsis b/l hydronephrosis s/p PCN Obstructive uropathy - s/p stent exchange Met Bladder CA KARTHIKEYAN Urinary retention s/p TURP s/p UTI/Bacteremia DM -- monitor urine output -- /Oncology f/u -- will consider d/c Ertapenem if no further obstruction/procedure planned continue monitor
[2018-07-30] MEDS: ZOLPIDEM TARTRATE 5 MG TABLET PO PRN (21:16)
--- NOTE | 2018-07-30 23:29 | PN ---
Progress Note, Physician History of Present Illness: No new complaints - Current Medication List Current Medications: Active Medications Acetaminophen (Tylenol -) 650 mg PO Q6H PRN PRN Reason: FOR TEMP. OF 100 OR GREATER Last Admin: 07/30/18 01:01 Dose: 650 mg Docusate Sodium (Colace -) 100 mg PO TID [facility] Last Admin: 07/30/18 21:15 Dose: Not Given Finasteride (Proscar -) 5 mg PO DAILY [facility] Last Admin: 07/30/18 09:43 Dose: 5 mg Fluconazole (Diflucan -) 100 mg PO DAILY [facility] Last Admin: 07/30/18 09:42 Dose: 100 mg IV Flush (Carmela-Cath Flush) 10 ml IVPUSH PRN PRN PRN Reason: protocol; maintain patency Last Admin: 07/30/18 05:55 Dose: 10 ml Ertapenem 1 gm/ Sodium (Chloride) 50 mls @ 50 mls/hr IVPB DAILY [facility]; Protocol Last Admin: 07/30/18 09:43 Dose: 50 mls/hr Sodium Chloride (Normal Saline -) 500 mls @ 21 mls/hr IV ASDIR [facility] Last Admin: 07/30/18 11:09 Dose: 21 mls/hr Insulin Aspart (Novolog Vial Sliding Scale -) 1 vial SQ ACHS [facility]; Protocol Last Admin: 07/30/18 21:16 Dose: Not Given Metformin HCl (Glucophage -) 500 mg PO BID@0700,1630 [facility] Last Admin: 07/30/18 17:05 Dose: 500 mg Metoclopramide HCl (Reglan Oral Solution -) 5 mg PO BID PRN PRN Reason: NAUSEA Last Admin: 07/28/18 18:58 Dose: 5 mg Metoprolol Succinate (Toprol Xl -) 100 mg PO DAILY [facility] Last Admin: 07/30/18 09:43 Dose: 100 mg Multivitamins/Minerals (Theragran-M) 1 each PO DAILY [facility] Last Admin: 07/30/18 09:43 Dose: 1 each Nifedipine (Procardia Xl -) 30 mg PO DAILY [facility] Last Admin: 07/30/18 09:43 Dose: 30 mg Tamsulosin HCl (Flomax -) 0.4 mg PO DAILY@0830 [facility] Last Admin: 07/30/18 08:44 Dose: 0.4 mg - Objective Vital Signs: Vital Signs Temperature 98 F 07/30/18 16:30 Pulse Rate 79 07/30/18 16:30 Respiratory Rate 18 07/30/18 16:30 Blood Pressure 111/75 07/30/18 16:30 O2 Sat by Pulse Oximetry (%) 98 07/30/18 09:00 Cardiovascular: Yes: WNL, Regular Rate and Rhythm Respiratory: Yes: WNL, Regular, CTA Bilaterally Gastrointestinal: Yes: WNL, Normal Bowel Sounds, Soft Genitourinary: Yes: Other (B/L nephrostomy tubes wc are clamped) Labs: CBC, BMP 07/30/18 06:00 07/30/18 06:00 INR, PTT INR 1.26 (0.83-1.09) H 07/14/18 21:35 Problem List - Problems (1) 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 Assessment/Plan: Pt had Rt renal stent placed B/L nephrostomy tubes clamped DC rahman cath in am Code(s): C79.9 - SECONDARY MALIGNANT NEOPLASM OF UNSPECIFIED SITE; C67.9 - MALIGNANT NEOPLASM OF BLADDER, UNSPECIFIED (2) Sepsis Assessment/Plan: Urine culture (+) for yeast Cont po diflucan Cont IV ertapenem WBC now normal Code(s): A41.9 - SEPSIS, UNSPECIFIED ORGANISM Qualifiers: Sepsis type: sepsis due to unspecified organism Qualified Code(s): A41.9 - Sepsis, unspecified organism (3) Acute on chronic renal failure Assessment/Plan: Improved renal function Code(s): N17.9 - ACUTE KIDNEY FAILURE, UNSPECIFIED; N18.9 - CHRONIC KIDNEY DISEASE, UNSPECIFIED Qualifiers: Acute renal failure type: unspecified Chronic kidney disease stage: stage 3 (moderate) Qualified Code(s): N17.9 - Acute kidney failure, unspecified; N18.3 - Chronic kidney disease, stage 3 (moderate) (4) Anemia Code(s): D64.9 - ANEMIA, UNSPECIFIED Qualifiers: Anemia type: due to chronic kidney disease Chronic kidney disease stage: stage 3 (moderate) Qualified Code(s): N18.3 - Chronic kidney disease, stage 3 (moderate); D63.1 - Anemia in chronic kidney disease (5) BPH (benign prostatic hyperplasia) Code(s): N40.0 - BENIGN PROSTATIC HYPERPLASIA WITHOUT LOWER URINRY TRACT SYMP (6) Diabetes Code(s): E11.9 - TYPE 2 DIABETES MELLITUS WITHOUT COMPLICATIONS (7) HLD (hyperlipidemia) Code(s): E78.5 - HYPERLIPIDEMIA, UNSPECIFIED (8) Hypertension Code(s): I10 - ESSENTIAL (PRIMARY) HYPERTENSION Qualifiers: Hypertension type: other secondary hypertension Qualified Code(s): I15.8 - Other secondary hypertension
[2018-07-31] MEDS: ACETAMINOPHEN 325 MG TABLET (FP) PO PRN (05:20)
[2018-07-31] MEDS: DOCUSATE SODIUM 100 MG CAPSULE (FP) PO SCH ×3 (05:40→22:35)
[2018-07-31] MEDS: INSULIN SLIDING SCALE (NOVOLOG) 1 VIAL SQ SCH ×4 (06:04→22:35)
[2018-07-31] MEDS: metFORMIN HCL 500 MG TABLET (FP) PO SCH ×2 (06:05→17:08)
[2018-07-31] MEDS: SODIUM CHLORIDE 500 ML IV SCH (09:41)
[2018-07-31] MEDS: FINASTERIDE 5 MG TABLET (FP) PO SCH (09:42)
[2018-07-31] MEDS: NIFEdipine E.R. 30 MG TABLET (FP) PO SCH (09:42)
[2018-07-31] MEDS: FLUCONAZOLE 100 MG TABLET (UD) PO SCH (09:42)
[2018-07-31] MEDS: TAMSULOSIN HCL 0.4 MG CAP PO SCH (09:42)
[2018-07-31] MEDS: MULTIVITAMINS THER W-MINERALS COMBO TABLET (FP) PO SCH (09:42)
[2018-07-31] MEDS: ERTAPENEM SODIUM 1 GM in SODIUM CHLORIDE 50 ML IVPB SCH (10:00)
--- NOTE | 2018-07-31 11:31 | PN ---
Progress Note, Physician History of Present Illness: patient stable no new issues internal stents placed ext nephrostomy tube blocked foleys removed - Current Medication List Current Medications: Active Medications Acetaminophen (Tylenol -) 650 mg PO Q6H PRN PRN Reason: FOR TEMP. OF 100 OR GREATER Last Admin: 07/31/18 05:20 Dose: 650 mg Docusate Sodium (Colace -) 100 mg PO TID [facility] Last Admin: 07/31/18 05:40 Dose: Not Given Finasteride (Proscar -) 5 mg PO DAILY [facility] Last Admin: 07/31/18 09:42 Dose: 5 mg Fluconazole (Diflucan -) 100 mg PO DAILY [facility] Last Admin: 07/31/18 09:42 Dose: 100 mg IV Flush (Carmela-Cath Flush) 10 ml IVPUSH PRN PRN PRN Reason: protocol; maintain patency Last Admin: 07/30/18 05:55 Dose: 10 ml Ertapenem 1 gm/ Sodium (Chloride) 50 mls @ 50 mls/hr IVPB DAILY [facility]; Protocol Last Admin: 07/31/18 10:00 Dose: 50 mls/hr Sodium Chloride (Normal Saline -) 500 mls @ 21 mls/hr IV ASDIR [facility] Last Admin: 07/31/18 09:41 Dose: 21 mls/hr Insulin Aspart (Novolog Vial Sliding Scale -) 1 vial SQ ACHS [facility]; Protocol Last Admin: 07/31/18 06:04 Dose: Not Given Metformin HCl (Glucophage -) 500 mg PO BID@0700,1630 [facility] Last Admin: 07/31/18 06:05 Dose: 500 mg Metoclopramide HCl (Reglan Oral Solution -) 5 mg PO BID PRN PRN Reason: NAUSEA Last Admin: 07/28/18 18:58 Dose: 5 mg Metoprolol Succinate (Toprol Xl -) 100 mg PO DAILY [facility] Last Admin: 07/31/18 09:42 Dose: 100 mg Multivitamins/Minerals (Theragran-M) 1 each PO DAILY [facility] Last Admin: 07/31/18 09:42 Dose: 1 each Nifedipine (Procardia Xl -) 30 mg PO DAILY [facility] Last Admin: 07/31/18 09:42 Dose: 30 mg Tamsulosin HCl (Flomax -) 0.4 mg PO DAILY@0830 [facility] Last Admin: 07/31/18 09:42 Dose: 0.4 mg - Objective Vital Signs: Vital Signs Temperature 98.2 F 07/31/18 08:47 Pulse Rate 84 07/31/18 08:47 Respiratory Rate 20 07/31/18 08:47 Blood Pressure 118/70 07/31/18 08:47 O2 Sat by Pulse Oximetry (%) 98 07/30/18 21:00 Constitutional: Yes: No Distress, Calm Cardiovascular: Yes: Regular Rate and Rhythm Respiratory: Yes: Regular, CTA Bilaterally Gastrointestinal: Yes: Normal Bowel Sounds, Soft Genitourinary: Yes: Other (b/l nephrostomy tubes) Musculoskeletal: Yes: WNL Extremities: Yes: WNL Neurological: Yes: Alert, Oriented Psychiatric: Yes: Alert, Oriented Labs: CBC, BMP 07/30/18 06:00 07/30/18 06:00 INR, PTT INR 1.26 (0.83-1.09) H 07/14/18 21:35 Assessment/Plan Problem List - Problems (1) KARTHIKEYAN (acute kidney injury) Code(s): N17.9 - ACUTE KIDNEY FAILURE, UNSPECIFIED (2) Anemia Code(s): D64.9 - ANEMIA, UNSPECIFIED (3) Lactic acidosis Code(s): E87.2 - ACIDOSIS (4) 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 Code(s): C79.9 - SECONDARY MALIGNANT NEOPLASM OF UNSPECIFIED SITE; C67.9 - MALIGNANT NEOPLASM OF BLADDER, UNSPECIFIED (5) BPH (benign prostatic hyperplasia) Code(s): N40.0 - BENIGN PROSTATIC HYPERPLASIA WITHOUT LOWER URINRY TRACT SYMP (6) Diabetes Code(s): E11.9 - TYPE 2 DIABETES MELLITUS WITHOUT COMPLICATIONS (7) Fever Code(s): R50.9 - FEVER, UNSPECIFIED Qualifiers: Fever type: unspecified Qualified Code(s): R50.9 - Fever, unspecified (8) HLD (hyperlipidemia) Code(s): E78.5 - HYPERLIPIDEMIA, UNSPECIFIED (9) Hypertension Code(s): I10 - ESSENTIAL (PRIMARY) HYPERTENSION Qualifiers: Hypertension type: other secondary hypertension Qualified Code(s): I15.8 - Other secondary hypertension (10) Sepsis Code(s): A41.9 - SEPSIS, UNSPECIFIED ORGANISM Qualifiers: Sepsis type: sepsis due to unspecified organism Qualified Code(s): A41.9 - Sepsis, unspecified organism (11) UTI (urinary tract infection) Code(s): N39.0 - URINARY TRACT INFECTION, SITE NOT SPECIFIED Assessment/Plan This is a 78 y.o. male with PMH of Metastatic Bladder CA (s/p chemotherapy over 3 wks ago) , currently with port in place, s/p urinary stent removal prior to last admission , DM, HTN, urinary retention s/p stent/rahman removal, s/p recent treatment for Sepsis due to ESBL + Klebsiella UTI/Bacteremia , and s/p TURP presenting with fever/weakness Sepsis b/l hydronephrosis Obstructive uropathy Met Bladder CA KARTHIKEYAN Urinary retention s/p TURP s/p UTI/Bacteremia DM all cx reports noted plan will stop abx monitor off of abx monitor for urine output rest as per he team
--- NOTE | 2018-07-31 12:23 | PN ---
Progress Note, Physician Chief Complaint: The patient seen in his bed. Perc nephrostomy tubes clamped. Clear urine passed per urethrum. Denies any pains. T The patient feels much stronger. History of Present Illness: 78 year old gentleman with Hx of Metastatic bladder Ca s/p chemo, Hx of hydronephrosis (s/p stenting), DM, Hypertension, Cirrhosis who presented with urinary retention and KARTHIKEYAN. KARTHIKEYAN secondary to bladder outlet obstruction + upper level obstruction at level of kidney Metastatic bladder Ca S/p umair. percutaneous nephrostomy, followed by internal stents. - Current Medication List Current Medications: Active Medications Acetaminophen (Tylenol -) 650 mg PO Q6H PRN PRN Reason: FOR TEMP. OF 100 OR GREATER Last Admin: 07/31/18 05:20 Dose: 650 mg Docusate Sodium (Colace -) 100 mg PO TID [facility] Last Admin: 07/31/18 05:40 Dose: Not Given Finasteride (Proscar -) 5 mg PO DAILY [facility] Last Admin: 07/31/18 09:42 Dose: 5 mg Fluconazole (Diflucan -) 100 mg PO DAILY [facility] Last Admin: 07/31/18 09:42 Dose: 100 mg IV Flush (Carmela-Cath Flush) 10 ml IVPUSH PRN PRN PRN Reason: protocol; maintain patency Last Admin: 07/30/18 05:55 Dose: 10 ml Sodium Chloride (Normal Saline -) 500 mls @ 21 mls/hr IV ASDIR [facility] Last Admin: 07/31/18 09:41 Dose: 21 mls/hr Insulin Aspart (Novolog Vial Sliding Scale -) 1 vial SQ ACHS [facility]; Protocol Last Admin: 07/31/18 11:40 Dose: Not Given Metformin HCl (Glucophage -) 500 mg PO BID@0700,1630 [facility] Last Admin: 07/31/18 06:05 Dose: 500 mg Metoclopramide HCl (Reglan Oral Solution -) 5 mg PO BID PRN PRN Reason: NAUSEA Last Admin: 07/28/18 18:58 Dose: 5 mg Metoprolol Succinate (Toprol Xl -) 100 mg PO DAILY [facility] Last Admin: 07/31/18 09:42 Dose: 100 mg Multivitamins/Minerals (Theragran-M) 1 each PO DAILY [facility] Last Admin: 07/31/18 09:42 Dose: 1 each Nifedipine (Procardia Xl -) 30 mg PO DAILY [facility] Last Admin: 07/31/18 09:42 Dose: 30 mg Tamsulosin HCl (Flomax -) 0.4 mg PO DAILY@0830 [facility] Last Admin: 07/31/18 09:42 Dose: 0.4 mg - Objective Vital Signs: Vital Signs Temperature 98.2 F 07/31/18 08:47 Pulse Rate 84 07/31/18 08:47 Respiratory Rate 20 07/31/18 08:47 Blood Pressure 118/70 07/31/18 08:47 O2 Sat by Pulse Oximetry (%) 98 07/30/18 21:00 Constitutional: Yes: Well Nourished Eyes: Yes: WNL Neck: Yes: Trachea Midline Cardiovascular: Yes: Pulse Irregular, S1, S2 Respiratory: Yes: CTA Bilaterally, Diminished Gastrointestinal: Yes: Normal Bowel Sounds, Soft Labs: CBC, BMP 07/30/18 06:00 07/30/18 06:00 INR, PTT INR 1.26 (0.83-1.09) H 07/14/18 21:35 Problem List - Problems (1) KARTHIKEYAN (acute kidney injury) Code(s): N17.9 - ACUTE KIDNEY FAILURE, UNSPECIFIED (2) Acute on chronic renal failure Code(s): N17.9 - ACUTE KIDNEY FAILURE, UNSPECIFIED; N18.9 - CHRONIC KIDNEY DISEASE, UNSPECIFIED Qualifiers: Acute renal failure type: unspecified Chronic kidney disease stage: stage 3 (moderate) Qualified Code(s): N17.9 - Acute kidney failure, unspecified; N18.3 - Chronic kidney disease, stage 3 (moderate) (3) Anemia Code(s): D64.9 - ANEMIA, UNSPECIFIED Qualifiers: Anemia type: due to chronic kidney disease Chronic kidney disease stage: stage 3 (moderate) Qualified Code(s): N18.3 - Chronic kidney disease, stage 3 (moderate); D63.1 - Anemia in chronic kidney disease (4) 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 Code(s): C79.9 - SECONDARY MALIGNANT NEOPLASM OF UNSPECIFIED SITE; C67.9 - MALIGNANT NEOPLASM OF BLADDER, UNSPECIFIED (5) Abdominal pain Code(s): R10.9 - UNSPECIFIED ABDOMINAL PAIN (6) Bladder cancer Code(s): C67.9 - MALIGNANT NEOPLASM OF BLADDER, UNSPECIFIED (7) Diabetes Code(s): E11.9 - TYPE 2 DIABETES MELLITUS WITHOUT COMPLICATIONS (8) Hematuria Code(s): R31.9 - HEMATURIA, UNSPECIFIED Qualifiers: Hematuria type: gross Qualified Code(s): R31.0 - Gross hematuria (9) Hydronephrosis Code(s): N13.30 - UNSPECIFIED HYDRONEPHROSIS Assessment/Plan 78 year old gentleman with Hx of Metastatic bladder Ca s/p chemo, Hx of hydronephrosis (s/p stenting), DM, Hypertension, Cirrhosis who presented with urinary retention and KARTHIKEYAN. The patient had placement JJ stenting ? one side. clear urine output noted. Suggest: Maintain hydration Will monitor the renal functions with you. No specific interventions. Thank you. Will follow with you. Amena Paulino MD
--- NOTE | 2018-07-31 15:57 | PN ---
Physical Exam: SUBJECTIVE: Patient seen and examined at bedside. No new complaints, No overnight events. OBJECTIVE: Vital Signs Period Temp Pulse Resp BP Sys/Benjamin Pulse Ox Last 24 Hr 97.5 F-98.6 F 69-87 18-20 111-128/70-83 97-98 GENERAL: The patient is awake, alert, and fully oriented, in no acute distress. HEAD: Normal with no signs of trauma. EYES: PERRL, extraocular movements intact, sclera anicteric, conjunctiva clear. No ptosis. ENT: Ears normal, nares patent, oropharynx clear without exudates, moist mucous membranes. NECK: Trachea midline, full range of motion, supple. LUNGS: Breath sounds equal, clear to auscultation bilaterally, no wheezes, no crackles, no accessory muscle use. HEART: Regular rate and rhythm, S1, S2 without murmur, rub or gallop. ABDOMEN: Soft, nontender, nondistended, normoactive bowel sounds, no guarding, no rebound, no hepatosplenomegaly, no masses. EXTREMITIES: 2+ pulses, warm, well-perfused, no edema. NEUROLOGICAL: Cranial nerves II through XII grossly intact. Normal speech, gait not observed. PSYCH: Normal mood, normal affect. SKIN: Warm, dry, normal turgor, no rashes or lesions noted Laboratory Results - last 24 hr 07/30/18 07/30/18 07/31/18 17:07 21:15 06:04 POC Glucometer 220 113 128 07/31/18 11:39 POC Glucometer 147 Active Medications Generic Name Dose Route Start Last Admin Trade Name Freq PRN Reason Stop Dose Admin Acetaminophen 650 mg 07/24/18 16:38 07/31/18 05:20 Tylenol - PO 650 mg Q6H PRN Administration FOR TEMP. OF 100 OR GREATER Docusate Sodium 100 mg 07/26/18 14:00 07/31/18 14:28 Colace - PO Not Given TID [facility] Finasteride 5 mg 07/25/18 10:00 07/31/18 09:42 Proscar - PO 5 mg DAILY [facility] Administration Fluconazole 100 mg 07/25/18 14:45 07/31/18 09:42 Diflucan - PO 100 mg DAILY [facility] Administration IV Flush 10 ml 07/24/18 16:38 07/30/18 05:55 Carmela-Cath Flush IVPUSH 10 ml PRN PRN Administration protocol; maintain patency Sodium Chloride 500 mls @ 21 mls/hr 07/28/18 10:30 07/31/18 09:41 Normal Saline - IV 21 mls/hr ASDIR [facility] Administration Insulin Aspart 1 vial 07/24/18 22:00 07/31/18 11:40 Novolog Vial Sliding Scale - SQ Not Given ACHS [facility] Protocol Metformin HCl 500 mg 07/25/18 07:00 07/31/18 06:05 Glucophage - PO 500 mg BID@0700,1630 [facility] Administration Metoclopramide HCl 5 mg 07/24/18 16:38 07/28/18 18:58 Reglan Oral Solution - PO 5 mg BID PRN Administration NAUSEA Metoprolol Succinate 100 mg 07/25/18 10:00 07/31/18 09:42 Toprol Xl - PO 100 mg DAILY [facility] Administration Multivitamins/Minerals 1 each 07/25/18 10:00 07/31/18 09:42 Theragran-M PO 1 each DAILY [facility] Administration Nifedipine 30 mg 07/25/18 10:00 07/31/18 09:42 Procardia Xl - PO 30 mg DAILY [facility] Administration Tamsulosin HCl 0.4 mg 07/25/18 08:30 07/31/18 09:42 Flomax - PO 0.4 mg DAILY@0830 [facility] Administration ASSESSMENT/PLAN: Problem List - Problems (1) 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 (2) Acute on chronic renal failure Assessment/Plan: renal function improving. * Nephrostomy clamped and making urine. * Urology to evaluate for readiness for discharge. * Bilateral Hydronephrosis seen on US * Bladder scan NM showed obstruction. Qualifiers: Acute renal failure type: unspecified Chronic kidney disease stage: stage 3 (moderate) Qualified Code(s): N17.9 - Acute kidney failure, unspecified; N18.3 - Chronic kidney disease, stage 3 (moderate) (3) Sepsis Assessment/Plan: ESBL UTI as the cause. * Abx completed. * Diflucan continued as per ID. (4) UTI (urinary tract infection) Qualifiers: Urinary tract infection type: catheter-associated UTI Indwelling urinary catheter type: indwelling urethral catheter Encounter type: initial encounter Qualified Code(s): T83.511A - Infection and inflammatory reaction due to indwelling urethral catheter, initial encounter; N39.0 - Urinary tract infection , site not specified (5) Anemia Assessment/Plan: secondary to chronic kidney disease * No further w/u at this time. Visit type - Emergency Visit Emergency Visit: Yes ED Registration Date: 07/14/18 Care time: The patient presented to the Emergency Department on the above date and was hospitalized for further evaluation of their emergent condition. - New Patient This patient is new to me today: No - Critical Care Critical Care patient: No
[2018-07-31] MEDS: PORTA CATH FLUSH 10 ML IVPUSH PRN (18:30)
--- NOTE | 2018-07-31 22:11 | PN ---
Progress Note (short form) - Note Progress Note: PAtient seen and examined s/p bilateral percutaneous nephrostomies and internalizationof stents rahman removed PVNS clamoed voiding afvss Cor: RSR, No murmurs, No gallops Lungs: decreased at bases Abd: Soft, Normal bowel sounds, No organomegaly Ext:No significant edema Labs/Meds reviewed Active Medications Generic Name Dose Route Start Last Admin Trade Name Freq PRN Reason Stop Dose Admin Acetaminophen 650 mg 07/24/18 16:38 07/26/18 03:50 Tylenol - PO 650 mg Q6H PRN Administration FOR TEMP. OF 100 OR GREATER Docusate Sodium 100 mg 07/26/18 14:00 07/27/18 22:46 Colace - PO 100 mg TID [facility] Administration Finasteride 5 mg 07/25/18 10:00 07/27/18 10:10 Proscar - PO 5 mg DAILY [facility] Administration Fluconazole 100 mg 07/25/18 14:45 07/27/18 10:11 Diflucan - PO 100 mg DAILY [facility] Administration IV Flush 10 ml 07/24/18 16:38 07/27/18 10:11 Carmela-Cath Flush IVPUSH 10 ml PRN PRN Administration protocol; maintain patency Ertapenem 1 gm/ Sodium 50 mls @ 50 mls/hr 07/27/18 14:45 07/27/18 16:36 Chloride IVPB 50 mls/hr DAILY [facility] Administration Protocol Insulin Aspart 1 vial 07/24/18 22:00 07/27/18 22:46 Novolog Vial Sliding Scale - SQ 2 units ACHS [facility] Administration Protocol Metformin HCl 500 mg 07/25/18 07:00 07/27/18 16:32 Glucophage - PO 500 mg BID@0700,1630 [facility] Administration Metoclopramide HCl 5 mg 07/24/18 16:38 Reglan Oral Solution - PO BID PRN NAUSEA Metoprolol Succinate 100 mg 07/25/18 10:00 07/27/18 10:11 Toprol Xl - PO 100 mg DAILY [facility] Administration Multivitamins/Minerals 1 each 07/25/18 10:00 07/27/18 10:10 Theragran-M PO 1 each DAILY [facility] Administration Nifedipine 30 mg 07/25/18 10:00 07/27/18 10:11 Procardia Xl - PO 30 mg DAILY [facility] Administration Tamsulosin HCl 0.4 mg 07/25/18 08:30 07/27/18 10:11 Flomax - PO 0.4 mg DAILY@0830 [facility] Administration Zolpidem Tartrate 5 mg 07/27/18 22:00 07/27/18 22:45 Ambien - PO 5 mg HS PRN Administration INSOMNIA A/P This is a 78 y.o. male with PMH of Metastatic Bladder CA (s/p C4 gemzar/ carboplatin 06/22/18) , currently with port in place, s/p urinary stent removal06/21 , s/p floley removal on 07/10/18 , DM, HTN, urinary retention s/p stent/ rahman removal, s/p recent treatment for Sepsis due to ESBL + Klebsiella UTI/ Bacteremia , and s/p TURP presenting with fever/weakness Also with acute renal failure, new since 07/05/18 Obstructive uropathy/acute renal failure s/p percutaneous nephrostomies/replacement of right stent PCNS clamped rahman removed urology f/u Anemia of chronic disease transfuse as needed
--- NOTE | 2018-07-31 22:57 | PN ---
Progress Note, Physician History of Present Illness: No new complaints - Current Medication List Current Medications: Active Medications Acetaminophen (Tylenol -) 650 mg PO Q6H PRN PRN Reason: FOR TEMP. OF 100 OR GREATER Last Admin: 07/31/18 05:20 Dose: 650 mg Docusate Sodium (Colace -) 100 mg PO TID [facility] Last Admin: 07/31/18 22:35 Dose: 100 mg Finasteride (Proscar -) 5 mg PO DAILY [facility] Last Admin: 07/31/18 09:42 Dose: 5 mg Fluconazole (Diflucan -) 100 mg PO DAILY [facility] Last Admin: 07/31/18 09:42 Dose: 100 mg IV Flush (Carmela-Cath Flush) 10 ml IVPUSH PRN PRN PRN Reason: protocol; maintain patency Last Admin: 07/31/18 18:30 Dose: 10 ml Sodium Chloride (Normal Saline -) 500 mls @ 21 mls/hr IV ASDIR [facility] Last Admin: 07/31/18 09:41 Dose: 21 mls/hr Insulin Aspart (Novolog Vial Sliding Scale -) 1 vial SQ ACHS [facility]; Protocol Last Admin: 07/31/18 22:35 Dose: 2 units Metformin HCl (Glucophage -) 500 mg PO BID@0700,1630 [facility] Last Admin: 07/31/18 17:08 Dose: 500 mg Metoclopramide HCl (Reglan Oral Solution -) 5 mg PO BID PRN PRN Reason: NAUSEA Last Admin: 07/28/18 18:58 Dose: 5 mg Metoprolol Succinate (Toprol Xl -) 100 mg PO DAILY [facility] Last Admin: 07/31/18 09:42 Dose: 100 mg Multivitamins/Minerals (Theragran-M) 1 each PO DAILY [facility] Last Admin: 07/31/18 09:42 Dose: 1 each Nifedipine (Procardia Xl -) 30 mg PO DAILY [facility] Last Admin: 07/31/18 09:42 Dose: 30 mg Tamsulosin HCl (Flomax -) 0.4 mg PO DAILY@0830 [facility] Last Admin: 07/31/18 09:42 Dose: 0.4 mg - Objective Vital Signs: Vital Signs Temperature 98.2 F 07/31/18 18:02 Pulse Rate 76 07/31/18 18:02 Respiratory Rate 18 07/31/18 20:40 Blood Pressure 112/60 07/31/18 18:02 O2 Sat by Pulse Oximetry (%) 97 07/31/18 20:40 Cardiovascular: Yes: WNL, Regular Rate and Rhythm Respiratory: Yes: WNL, Regular, CTA Bilaterally Gastrointestinal: Yes: WNL, Normal Bowel Sounds, Soft Labs: CBC, BMP 07/30/18 06:00 07/30/18 06:00 INR, PTT INR 1.26 (0.83-1.09) H 07/14/18 21:35 Problem List - Problems (1) 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 Assessment/Plan: Pt had Rt renal stent placed B/L nephrostomy tubes clamped Pt is urinating Will monitor for another 24 hrs Will consult uro about nephrostomy tube removal Code(s): C79.9 - SECONDARY MALIGNANT NEOPLASM OF UNSPECIFIED SITE; C67.9 - MALIGNANT NEOPLASM OF BLADDER, UNSPECIFIED (2) Sepsis Assessment/Plan: Urine culture (+) for yeast Cont po diflucan WBC now normal Code(s): A41.9 - SEPSIS, UNSPECIFIED ORGANISM Qualifiers: Sepsis type: sepsis due to unspecified organism Qualified Code(s): A41.9 - Sepsis, unspecified organism (3) Acute on chronic renal failure Assessment/Plan: Improved renal function Code(s): N17.9 - ACUTE KIDNEY FAILURE, UNSPECIFIED; N18.9 - CHRONIC KIDNEY DISEASE, UNSPECIFIED Qualifiers: Acute renal failure type: unspecified Chronic kidney disease stage: stage 3 (moderate) Qualified Code(s): N17.9 - Acute kidney failure, unspecified; N18.3 - Chronic kidney disease, stage 3 (moderate) (4) Anemia Code(s): D64.9 - ANEMIA, UNSPECIFIED Qualifiers: Anemia type: due to chronic kidney disease Chronic kidney disease stage: stage 3 (moderate) Qualified Code(s): N18.3 - Chronic kidney disease, stage 3 (moderate); D63.1 - Anemia in chronic kidney disease (5) BPH (benign prostatic hyperplasia) Code(s): N40.0 - BENIGN PROSTATIC HYPERPLASIA WITHOUT LOWER URINRY TRACT SYMP (6) Diabetes Code(s): E11.9 - TYPE 2 DIABETES MELLITUS WITHOUT COMPLICATIONS (7) HLD (hyperlipidemia) Code(s): E78.5 - HYPERLIPIDEMIA, UNSPECIFIED (8) Hypertension Code(s): I10 - ESSENTIAL (PRIMARY) HYPERTENSION Qualifiers: Hypertension type: other secondary hypertension Qualified Code(s): I15.8 - Other secondary hypertension
[2018-07-31] MEDS ORDERED: ZOLPIDEM TARTRATE 5 MG TABLET PO PRN (23:48)
[2018-08-01 05:50] VITALS: TEMP 98.2
[2018-08-01] MEDS: DOCUSATE SODIUM 100 MG CAPSULE (FP) PO SCH ×2 (05:54→13:12)
[2018-08-01] MEDS: metFORMIN HCL 500 MG TABLET (FP) PO SCH (05:59)
[2018-08-01] MEDS: INSULIN SLIDING SCALE (NOVOLOG) 1 VIAL SQ SCH ×2 (05:59→11:26)
[2018-08-01] MEDS ORDERED: INSULIN (LEVEMIR) 100 UNITS/ML UNITS SQ ONE (06:29)
[2018-08-01] MEDS ORDERED: INSULIN (NOVOLOG) ASPART 100 UNITS/ML 10ML VIAL ONE (06:29)
[2018-08-01 07:23] LABS: BASO % 1.1 % (0-2.0); EOS % 2.8 % (0-4.5); HEMOGLOBIN 7.7 GM/dL (11.7-16.9); LYMPH % 14.4 % (8-40); MCH 22.6 pg (25.7-33.7); MCHC 31.9 g/dl (32.0-35.9); MEAN CELL VOLUME 70.8 fl (80-96); MEAN PLT VOLUME 9.5 fl (7.5-11.1); MONO % 4.3 % (3.8-10.2); NEUT % 77.4 % (42.8-82.8); PLATELET COUNT 272 K/MM3 (134-434); RBC 3.39 M/mm3 (4.00-5.60); RDW 25.4 % (11.9-15.9); WHITE BLOOD COUNT 8.5 K/mm3 (4.0-10.0)
[2018-08-01 07:58] LABS: ALBUMIN 2.4 g/dl (3.4-5.0); ALK PHOS 652 U/L (45-117); ANION GAP 10 MMOL/L (8-16); BILIRUBIN,TOTAL 0.7 mg/dL (0.2-1); BLOOD UREA NITROGEN 19 mg/dL (7-18); CALCIUM 8.2 mg/dL (8.5-10.1); CHLORIDE 105 mmol/L (98-107); CO2 24 mmol/L (21-32); CREATININE 0.7 mg/dL (0.55-1.3); GLUCOSE,RANDOM 109 mg/dL (74-106); SGOT/AST 22 U/L (15-37); SGPT/ALT 28 U/L (13-61); SODIUM 139 mmol/L (136-145); TOT PROT 6.6 g/dl (6.4-8.2)
[2018-08-01] MEDS: TAMSULOSIN HCL 0.4 MG CAP PO SCH (09:03)
[2018-08-01] MEDS: MULTIVITAMINS THER W-MINERALS COMBO TABLET (FP) PO SCH (09:06)
[2018-08-01] MEDS: NIFEdipine E.R. 30 MG TABLET (FP) PO SCH (09:06)
[2018-08-01] MEDS: FINASTERIDE 5 MG TABLET (FP) PO SCH (09:06)
[2018-08-01] MEDS: FLUCONAZOLE 100 MG TABLET (UD) PO SCH (09:06)
[2018-08-01 10:34] VITALS: BP 124/82; PULSE 85
[2018-08-01 11:17] LABS: ANISOCYTOSIS 1+; MACROCYTOSIS 0; PLATELET ESTIMATE NORMAL; TARGET CELLS 1+
--- NOTE | 2018-08-01 14:03 | PN ---
Progress Note, Physician History of Present Illness: stable nephrostomy tubes ext closed passing urine doing well - Current Medication List Current Medications: Active Medications Acetaminophen (Tylenol -) 650 mg PO Q6H PRN PRN Reason: FOR TEMP. OF 100 OR GREATER Last Admin: 07/31/18 05:20 Dose: 650 mg Docusate Sodium (Colace -) 100 mg PO TID [facility] Last Admin: 08/01/18 13:12 Dose: Not Given Finasteride (Proscar -) 5 mg PO DAILY [facility] Last Admin: 08/01/18 09:06 Dose: 5 mg Fluconazole (Diflucan -) 100 mg PO DAILY [facility] Last Admin: 08/01/18 09:06 Dose: 100 mg IV Flush (Carmela-Cath Flush) 10 ml IVPUSH PRN PRN PRN Reason: protocol; maintain patency Last Admin: 07/31/18 18:30 Dose: 10 ml Insulin Aspart (Novolog Vial Sliding Scale -) 1 vial SQ ACHS [facility]; Protocol Last Admin: 08/01/18 11:26 Dose: Not Given Metformin HCl (Glucophage -) 500 mg PO BID@0700,1630 [facility] Last Admin: 08/01/18 05:59 Dose: 500 mg Metoclopramide HCl (Reglan Oral Solution -) 5 mg PO BID PRN PRN Reason: NAUSEA Last Admin: 07/28/18 18:58 Dose: 5 mg Metoprolol Succinate (Toprol Xl -) 100 mg PO DAILY [facility] Last Admin: 08/01/18 09:05 Dose: 100 mg Multivitamins/Minerals (Theragran-M) 1 each PO DAILY [facility] Last Admin: 08/01/18 09:06 Dose: 1 each Nifedipine (Procardia Xl -) 30 mg PO DAILY [facility] Last Admin: 08/01/18 09:06 Dose: 30 mg Tamsulosin HCl (Flomax -) 0.4 mg PO DAILY@0830 [facility] Last Admin: 08/01/18 09:03 Dose: 0.4 mg Zolpidem Tartrate (Ambien -) 5 mg PO HS PRN PRN Reason: INSOMNIA Last Admin: 07/31/18 23:55 Dose: 5 mg - Objective Vital Signs: Vital Signs Temperature 98.2 F 08/01/18 05:48 Pulse Rate 85 08/01/18 10:00 Respiratory Rate 20 08/01/18 10:00 Blood Pressure 124/82 08/01/18 10:00 O2 Sat by Pulse Oximetry (%) 97 08/01/18 09:00 Constitutional: Yes: No Distress, Calm Cardiovascular: Yes: Regular Rate and Rhythm Respiratory: Yes: Regular, CTA Bilaterally Gastrointestinal: Yes: Normal Bowel Sounds, Soft ...Rectal Exam: Yes: Other (b/l nephrostoy tubes in place closed) Neurological: Yes: Alert, Oriented Psychiatric: Yes: Alert, Oriented Labs: CBC, BMP 08/01/18 06:00 08/01/18 06:00 INR, PTT INR 1.26 (0.83-1.09) H 07/14/18 21:35 Assessment/Plan Problem List - Problems (1) KARTHIKEYAN (acute kidney injury) Code(s): N17.9 - ACUTE KIDNEY FAILURE, UNSPECIFIED (2) Anemia Code(s): D64.9 - ANEMIA, UNSPECIFIED (3) Lactic acidosis Code(s): E87.2 - ACIDOSIS (4) 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 Code(s): C79.9 - SECONDARY MALIGNANT NEOPLASM OF UNSPECIFIED SITE; C67.9 - MALIGNANT NEOPLASM OF BLADDER, UNSPECIFIED (5) BPH (benign prostatic hyperplasia) Code(s): N40.0 - BENIGN PROSTATIC HYPERPLASIA WITHOUT LOWER URINRY TRACT SYMP (6) Diabetes Code(s): E11.9 - TYPE 2 DIABETES MELLITUS WITHOUT COMPLICATIONS (7) Fever Code(s): R50.9 - FEVER, UNSPECIFIED Qualifiers: Fever type: unspecified Qualified Code(s): R50.9 - Fever, unspecified (8) HLD (hyperlipidemia) Code(s): E78.5 - HYPERLIPIDEMIA, UNSPECIFIED (9) Hypertension Code(s): I10 - ESSENTIAL (PRIMARY) HYPERTENSION Qualifiers: Hypertension type: other secondary hypertension Qualified Code(s): I15.8 - Other secondary hypertension (10) Sepsis Code(s): A41.9 - SEPSIS, UNSPECIFIED ORGANISM Qualifiers: Sepsis type: sepsis due to unspecified organism Qualified Code(s): A41.9 - Sepsis, unspecified organism (11) UTI (urinary tract infection) Code(s): N39.0 - URINARY TRACT INFECTION, SITE NOT SPECIFIED Assessment/Plan This is a 78 y.o. male with PMH of Metastatic Bladder CA (s/p chemotherapy over 3 wks ago) , currently with port in place, s/p urinary stent removal prior to last admission , DM, HTN, urinary retention s/p stent/rahman removal, s/p recent treatment for Sepsis due to ESBL + Klebsiella UTI/Bacteremia , and s/p TURP presenting with fever/weakness Sepsis b/l hydronephrosis Obstructive uropathy Met Bladder CA KARTHIKEYAN Urinary retention s/p TURP s/p UTI/Bacteremia DM plan stable off of abx planning to go home if passing urine appropriately nephrostomy tubes will be removed
== END 2018-08-01 14:08 | disposition home or self-care (01) | DRG 854 ==
LOC: SUPCPDRO 20:43 → JER 20:43 → JERBED 23:47 → J7W 07-15 03:53
PROVIDERS: ADMIT Internal Medicine; ATTEND Internal Medicine
PROC: 0T9130Z Drainage of Left Kidney with Drainage Device, Percutaneous Approach (ICD-10-PCS; 2018-07-21)
PROC: 0T9030Z Drainage of Right Kidney with Drainage Device, Percutaneous Approach (ICD-10-PCS; 2018-07-21)
PROC: 30233N1 Transfusion of Nonautologous Red Blood Cells into Peripheral Vein, Percutaneous Approach (ICD-10-PCS; 2018-07-21)
PROC: 0TP98DZ Removal of Intraluminal Device from Ureter, Via Natural or Artificial Opening Endoscopic (ICD-10-PCS; 2018-07-24)
PROC: 0T768DZ Dilation of Right Ureter with Intraluminal Device, Via Natural or Artificial Opening Endoscopic (ICD-10-PCS; principal; 2018-07-24 13:00)
PROC: 0T778DZ Dilation of Left Ureter with Intraluminal Device, Via Natural or Artificial Opening Endoscopic (ICD-10-PCS; 2018-07-28)
PROC: 0T25X0Z Change Drainage Device in Kidney, External Approach (ICD-10-PCS; 2018-07-28)
DX: A41.9 Sepsis, unspecified organism (principal); K76.6 Portal hypertension; C78.7 Secondary malignant neoplasm of liver and intrahepatic bile duct; C79.51 Secondary malignant neoplasm of bone; E87.2 Acidosis; N17.9 Acute kidney failure, unspecified; N13.2 Hydronephrosis with renal and ureteral calculous obstruction; N39.0 Urinary tract infection, site not specified; E11.22 Type 2 diabetes mellitus with diabetic chronic kidney disease; I12.9 Hypertensive chronic kidney disease with stage 1 through stage 4 chronic kidney disease, or unspecified chronic kidney disease; K74.60 Unspecified cirrhosis of liver; I71.2 Thoracic aortic aneurysm, without rupture; D56.9 Thalassemia, unspecified; C67.9 Malignant neoplasm of bladder, unspecified; D64.9 Anemia, unspecified; N40.0 Benign prostatic hyperplasia without lower urinary tract symptoms; E78.5 Hyperlipidemia, unspecified; N40.1 Benign prostatic hyperplasia with lower urinary tract symptoms; R33.8 Other retention of urine; Z79.84 Long term (current) use of oral hypoglycemic drugs; N13.9 Obstructive and reflux uropathy, unspecified; N18.3 Chronic kidney disease, stage 3 (moderate); D63.1 Anemia in chronic kidney disease; E87.6 Hypokalemia; L89.311 Pressure ulcer of right buttock, stage 1
CPT/HCPCS: 36415; 36430; 50432; 50435; 50693; 71045-TC-FY; 76000-TC-FY; 76098-TC-FY; 76775-TC; 76856-TC; 76998-TC; 78708-TC; 80048; 80053; 81003; 81015; 82550; 82553; 82962; 83605; 83735; 84100; 84484; 85025; 85027; 85610; 85730; 86850; 86900; 86901; 86922; 87040; 87077; 87086; 87899; 88300-TC; 93005; 93010; 94760; 96365; 97116-GP; 99284-25; A4358; A9562; C1729; C1769; C1887; C1894; J0131; J1644; J7030; P9038; P9058

== ENCOUNTER 2018-08-04 17:13 | Inpatient (IN) | payer OTHER ==
--- NOTE | 2018-08-04 17:21 | PDOC ---
History of Present Illness - General Chief Complaint: SIRS, Suspected/Possible Stated Complaint: ELEVATED TEMPERATURE Time Seen by Provider: 08/04/18 17:18 - History of Present Illness Initial Comments: 78 year old male, with a significant past medical history of diabetes, hypertension, metastatic bladder cancer (last chemo Jun 22 2018), thalassemia, thoracic aortic aneurysm, and cirrhosis, who presents to the emergency department with weakness, fever, fatigue, near syncope, and diarrhea. Yesterday , He had two nephrostomy tubes taken out of both his kidneys and a catheter taken out of his penis by Dr. Enamorado here at [facility] in the interventional radiology dept. He was recently hospitalized here at [facility] and he received Abx, he does not know which ones though. He believes he finished the Abx around 2/3 weeks prior. Yesterday he had 4/5 episodes of diarrhea which he states are not bloody. Allergies: NKDA, NKA Past surgical history: Cystoscopy and ureteral stent placement; TURP (07/07/18). Social history: Former smoker (quit smoking 1995). Primary Care Physician: Dr. Andrea Delgadillo Urologist: Dr. Hiral Delgadillo Oncologist: Dr. Chamorro and Dr. Manjarrez Interventional Radiologist: Dr. Enamorado Past History - Past Medical History Allergies/Adverse Reactions: Allergies Allergy/AdvReac Type Severity Reaction Status Date / Time No Known Allergies Allergy Verified 08/04/18 17:16 Home Medications: Ambulatory Orders Finasteride [Proscar -] 5 mg PO DAILY 06/25/18 Metformin HCl [Glucophage] 1,000 mg PO BID 06/25/18 Metoclopramide HCl 5 mg PO BID PRN 06/25/18 Metoprolol Succinate [Toprol XL -] 100 mg PO DAILY 06/25/18 Multivit-Min/FA/Lycopen/Lutein [Centrum Silver Men Tablet] 1 each PO DAILY 06/25 Nifedipine [Procardia Xl] 30 mg PO DAILY 06/25/18 Silodosin [Rapaflo] 8 mg PO DAILY 06/25/18 Zolpidem Tartrate [Ambien] 5 mg PO HS 06/25/18 Ertapenem Sodium [Invanz -] 1 gm IVPB DAILY vial 07/06/18 Zolpidem Tartrate [Ambien] 5 mg PO HS PRN #30 tablet MDD 1 07/06/18 Docusate Sodium [Colace -] 100 mg PO TID capsule 08/01/18 Zolpidem Tartrate [Ambien] 5 mg PO HS PRN #30 tablet MDD 1 08/01/18 metFORMIN HCL [Glucophage -] 500 mg PO BID@0700,1630 tablet 08/01/18 Anemia: No Asthma: No Cancer: Yes (BLADDER W/ mets to liver and bone) Cardiac Disorders: No CVA: No COPD: No CHF: No Dementia: No Diabetes: Yes GI Disorders: No Disorders: Yes (BPH) HTN: Yes Hypercholesterolemia: No Liver Disease: No Seizures: No Thyroid Disease: No - Surgical History Abdominal Surgery: No Appendectomy: No Cardiac Surgery: No - Suicide/Smoking/Psychosocial Hx Smoking Status: Yes Smoking History: Never smoked Have you smoked in the past 12 months: No Number of Cigarettes Smoked Daily: 0 If you are a former smoker, when did you quit?: 1989 Alcohol Use: No Drug/Substance Use Hx: No Substance Use Type: None Hx Substance Use Treatment: No Review of Systems - Review of Systems Comments:: CONSTITUTIONAL: Present: Fever, generalized weakness, malaise Absent: chills, diaphoresis, loss of appetite HEENT: Absent: rhinorrhea, nasal congestion, throat pain, throat swelling, difficulty swallowing, mouth swelling, ear pain, eye pain, visual Changes CARDIOVASCULAR: Absent: chest pain, syncope, palpitations, irregular heart rate, lightheadedness , peripheral edema RESPIRATORY: Absent: cough, shortness of breath, dyspnea with exertion, orthopnea, wheezing, stridor, hemoptysis GASTROINTESTINAL: Present: Diarrhea Absent: abdominal pain, abdominal distension, nausea, vomiting, constipation, melena, hematochezia GENITOURINARY: Absent: dysuria, frequency, urgency, hesitancy, hematuria, flank pain, genital pain MUSCULOSKELETAL: Absent: myalgia, arthralgia, joint swelling SKIN: Absent: rash, itching, pallor HEMATOLOGIC/IMMUNOLOGIC: Present: lymphadenopathy, frequent infections. Absent: easy bleeding, easy bruising ENDOCRINE: Absent: unexplained weight gain, unexplained weight loss, heat intolerance, cold intolerance NEUROLOGIC: Absent: headache, focal weakness or paresthesias, dizziness, unsteady gait, seizure, mental status changes, bladder or bowel incontinence PSYCHIATRIC: Absent: anxiety, depression, suicidal or homicidal ideation, hallucinations. *Physical Exam - Physical Exam Comments: GENERAL: Well developed, well nourished. Awake and alert. No acute distress. HEENT: Normocephalic, atraumatic. PERRLA, EOMI. No conjunctival pallor. Sclera are non- icteric. Moist mucous membranes. Oropharynx is clear. NECK: Bilateral shotty painless lymph nodes appreciated anterior to SCMTD Supple. Full ROM. No JVD. No thyromegaly. CARDIOVASCULAR: tachycardic rate and regular rhythm. No murmurs, rubs, or gallops. Distal pulses are 2+ and symmetric. PULMONARY: No evidence of respiratory distress. Lungs clear to auscultation bilaterally. No wheezing, rales or rhonchi. ABDOMINAL: Soft. Non-tender. Non-distended. No rebound or guarding. No organomegaly. Normoactive bowel sounds. MUSCULOSKELETAL Normal range of motion at all joints. No bony deformities or tenderness. No CVA tenderness. EXTREMITIES: No cyanosis. No clubbing. No edema. No calf tenderness. SKIN: Delayed Cap refill Warm and dry. No rashes. No jaundice. NEUROLOGICAL: Alert, awake, appropriate. Cranial nerves 2-12 intact. No deficits to light touch in face, upper extremities and lower extremities. No motor deficits in the in face, upper extremities and lower extremities. Normal speech. PSYCHIATRIC: Cooperative. Good eye contact. Appropriate mood and affect. ED Treatment Course - LABORATORY CBC & Chemistry Diagram: 08/04/18 18:01 08/04/18 18:01 Medical Decision Making - Medical Decision Making 78 year old male, with a significant past medical history of diabetes, hypertension, metastatic bladder cancer (last chemo Jun 22 2018), thalassemia, thoracic aortic aneurysm, and cirrhosis, who presents to the emergency department with weakness, fever, fatigue, near syncope and diarrhea. Yesterday, He had two nephrostomy tubes taken out of both his kidneys and a catheter taken out of his penis by Dr. Enamorado here at [facility] in the interventional radiology dept. He was recently hospitalized here at [facility] and he received Abx, he does not know which ones though. He believes he finished the Abx around 2/3 weeks prior. Yesterday he had 4/5 episodes of diarrhea which he states are not bloody. DD includes but not limited to: Neutropenic infection, ESBL infection, PNA, bacteremia, ACS, UTI/pylo, gastroenteritis, C-Diff, other infection. Plan: ED adult sepsis workup, C-diff toxin, Meropenem, Vancomycin, re-assess. Patient will be admitted. Abx started here in ED He meets SIRS criteria - likely source: Urine Repeat BP at bedside: 102/70 UA showed 2+ LE and 44 WBC's Will admit patient for UTI is going home and would like to be contacted with updates. Her name is Miranda Mann. She can be reached at home at [phone] or by cell at [phone] *DC/Admit/Observation/Transfer Diagnosis at time of Disposition: UTI due to extended-spectrum beta lactamase (ESBL) producing Escherichia coli - Discharge Dispostion Condition at time of disposition: Guarded Decision to Admit order: Yes - Referrals Referrals: Andrea Delgadillo MD [Primary Care Provider] - - Patient Instructions - Post Discharge Activity
[2018-08-04] MEDS ORDERED: SODIUM CHLORIDE 0.9% 1000 ML INFUS.BAG IV STA (17:35)
[2018-08-04] MEDS ORDERED: MEROPENEM 1 GM in DEXTROSE 5%-WATER 100 ML IVPB ONE (17:45)
[2018-08-04] MEDS ORDERED: VANCOMYCIN 1,000 MG in DEXTROSE 5%-WATER - 250 ML IVPB ONE (18:02)
[2018-08-04] MEDS ORDERED: VANCOMYCIN 1 GRAM (PRE-DOCKED) 1,000 MG/250 ML BAG IVPB ONE (18:08)
--- NOTE | 2018-08-04 18:27 | PDOC ---
Attending Attestation - Resident Resident Name: Levy Cramer - ED Attending Attestation I have performed the following: I have examined & evaluated the patient, The case was reviewed & discussed with the resident, I agree w/resident's findings & plan, Exceptions are as noted - HPI HPI: 08/04/18 18:21 78-year-old male with history of hypertension, diabetes, metastatic bladder cancer, aortic aneurysm, cirrhosis, last chemotherapy in early June 2018 presents with generalized weakness and fever. The patient was here yesterday and recently had his bilateral nephrostomy tubes and urinary catheter removed. Patient reported no calm occasions her palms at the time. This morning, patient felt generally weak and had a temperature of 102. Patient states some Tylenol and called their oncologist. They're oncologist, Dr. Vance, and advised the patient come to the ER. Patient has frequent urinary tract infections. Patient suspect that he may have another one. He is still urinating. - Physicial Exam PE: 08/04/18 18:21 GENERAL: Awake, alert, and fully oriented, in no acute distress, warm to touch. HEAD: No signs of trauma EYES: EOMI, sclera anicteric, conjunctiva clear ENT: Auricles normal inspection, hearing grossly normal, nares patent, dry mucous membranes. NECK: Normal ROM, supple, LUNGS: Breath sounds equal, clear to auscultation bilaterally. No wheezes, and no crackles HEART: Regular rate and rhythm, normal S1 and S2, no murmurs, rubs or gallops ABDOMEN: Soft, nontender. EXTREMITIES: Normal range of motion, no edema. No clubbing or cyanosis. No cords, erythema, or tenderness NEUROLOGICAL: Cranial nerves II through XII grossly intact. Normal speech, SKIN: Noninfected stage 1 sacral ulcer. Old bilateral nephrostomy tube sites c/d /i without evidence of infection. - Medical Decision Making 08/04/18 18:26 Vital Signs Temp Pulse Resp BP Pulse Ox 99.3 F 112 H 18 92/49 L 94 L 08/04/18 17:17 08/04/18 17:17 08/04/18 17:17 08/04/18 17:17 08/04/18 17:17 This is a chronically ill 78-year-old male patient with history of recurrent urinary tract infections presents hypotensive and tachycardia and fever concerning for severe sepsis versus septic shock. We'll need to initiate the sepsis protocol including 30 mL per KG of IV fluids, lactic acid, blood cultures and empiric IV antibiotics. From prior urinary culture sensitivity, we 'll initiate vancomycin and meropenem. Patient placed at the patient's infectious disease specialist, Dr. Nino. We'll admit the patient to hospital for further evaluation. 08/04/18 20:30 CBC WBC 17.7 K/mm3 (4.0-10.0) H 08/04/18 18:01 RBC 3.75 M/mm3 (4.00-5.60) L 08/04/18 18:01 Hgb 8.4 GM/dL (11.7-16.9) L 08/04/18 18: Hct 26.1 % (35.4-49) L 08/04/18 18: MCV 69.6 fl (80-96) L 08/04/18 18:01 MCH 22.4 pg (25.7-33.7) L 08/04/18 18: MCHC 32.2 g/dl (32.0-35.9) 08/04/18 18: RDW 25.2 % (11.9-15.9) H 08/04/18 18:01 Plt Count 359 K/MM3 (134-434) D 08/04/18 18:01 MPV 10.0 fl (7.5-11.1) 08/04/18 18:01 Absolute Neuts (auto) 15.8 K/mm3 (1.5-8.0) H 08/04/18 18:01 Neutrophils % 89.3 % (42.8-82.8) H 08/04/18 18:01 Lymphocytes % 3.8 % (8-40) L D 08/04/18 18:01 Monocytes % 6.2 % (3.8-10.2) 08/04/18 18: Eosinophils % 0.1 % (0-4.5) D 08/04/18 18:01 Basophils % 0.6 % (0-2.0) 08/04/18 18:01 Nucleated RBC % 0 % (0-0) 08/04/18 18:01 WBC 17.7 and elevated lactic acid. UA positive for infection. Case discussed with Dr. Andrade. She accepts patient to admission. Heart Score/ECG Review #1 ECG reviewed & interpreted by me at: 18:35 08/04/18 18:50 NSR 113 with 1st degree AV block, left axis deviation, no std/acacia, QTC 438 msec
[2018-08-04] MEDS ORDERED: ACETAMINOPHEN INJECTION 100 ML IVPB ONE (18:48)
[2018-08-04 18:55] LABS: VENOUS PH 7.46 (7.32-7.42); VENOUS PO2 23.4 mmHg (28-48)
[2018-08-04 19:02] LABS: BASO % 0.6 % (0-2.0); EOS % 0.1 % (0-4.5); HEMATOCRIT 26.1 % (35.4-49); HEMOGLOBIN 8.4 GM/dL (11.7-16.9); LYMPH % 3.8 % (8-40); MCH 22.4 pg (25.7-33.7); MCHC 32.2 g/dl (32.0-35.9); MEAN CELL VOLUME 69.6 fl (80-96); MONO % 6.2 % (3.8-10.2); NEUT % 89.3 % (42.8-82.8); PLATELET COUNT 359 K/MM3 (134-434); RBC 3.75 M/mm3 (4.00-5.60); RDW 25.2 % (11.9-15.9); WHITE BLOOD COUNT 17.7 K/mm3 (4.0-10.0)
[2018-08-04 19:17] LABS: URINE APPEARANCE SLCLOUDY; URINE BILIRUBIN NEGATIVE (<2.0 mg/dL); URINE COLOR DKYELLOW; URINE GLUCOSE (UA) NEGATIVE (NEGATIVE); URINE KETONE NEGATIVE (NEGATIVE); URINE LEUK ESTERASE 2+ (NEGATIVE); URINE NITRITE NEGATIVE (NEGATIVE); URINE PROTEIN 1+ (NEGATIVE); URINE UROBILINOGEN NEGATIVE mg/dL (0.2-1.0)
[2018-08-04 19:28] LABS: INR 1.47 (0.83-1.09); PROTHROMBIN TIME (PATIENT) 17.4 SEC (9.7-13.0)
[2018-08-04 19:31] LABS: ACTIVATED PTT 30.5 SECONDS (25.2-36.5)
[2018-08-04 19:34] LABS: URINE BACTERIA RARE /hpf (NONE SEEN); URINE MUCUS RARE
[2018-08-04 20:33] LABS: ANISOCYTOSIS 3+; MACROCYTOSIS 1+; OVALOCYTE 1+; TARGET CELLS RARE
[2018-08-04 20:34] LABS: PLATELET ESTIMATE ADEQUATE
[2018-08-04 21:27] LABS: ALBUMIN 2.4 g/dl (3.4-5.0); ALK PHOS 508 U/L (45-117); ANION GAP 8 MMOL/L (8-16); BILIRUBIN,TOTAL 1.4 mg/dL (0.2-1); BLOOD UREA NITROGEN 19 mg/dL (7-18); CALCIUM 8.1 mg/dL (8.5-10.1); CHLORIDE 104 mmol/L (98-107); CO2 23 mmol/L (21-32); CREATININE 0.8 mg/dL (0.55-1.3); GLUCOSE,RANDOM 198 mg/dL (74-106); POTASSIUM 4.1 mmol/L (3.5-5.1); SGOT/AST 33 U/L (15-37); SGPT/ALT 25 U/L (13-61); SODIUM 134 mmol/L (136-145); TOT PROT 6.4 g/dl (6.4-8.2)
--- NOTE | 2018-08-05 00:39 | CONSULT ---
Consult - text type - Consultation Consultation Note: PAtient seen and examined 78 y/o patient with a significant past medical history of diabetes, hypertension , metastatic bladder cancer (last chemo Jun 22 2018), thalassemia, thoracic aortic aneurysm, and cirrhosis, who presents to the emergency department with weakness, fever, fatigue, near syncope, and diarrhea. Yesterday, He had two nephrostomy tubes taken out yesterday. He was recently hospitalized here at [facility] and he received Abx, Allergies: NKDA, NKA Past surgical history: Cystoscopy and ureteral stent placement; TURP (07/07/18). Social history: Former smoker (quit smoking 1995). Allergies/Adverse Reactions: Allergies Allergy/AdvReac Type Severity Reaction Status Date / Time No Known Allergies Allergy Verified 08/04/18 17:16 Home Medications: Ambulatory Orders Finasteride [Proscar -] 5 mg PO DAILY 06/25/18 Metformin HCl [Glucophage] 1,000 mg PO BID 06/25/18 Metoclopramide HCl 5 mg PO BID PRN 06/25/18 Metoprolol Succinate [Toprol XL -] 100 mg PO DAILY 06/25/18 Multivit-Min/FA/Lycopen/Lutein [Centrum Silver Men Tablet] 1 each PO DAILY 06/25 Nifedipine [Procardia Xl] 30 mg PO DAILY 06/25/18 Silodosin [Rapaflo] 8 mg PO DAILY 06/25/18 Zolpidem Tartrate [Ambien] 5 mg PO HS 06/25/18 Ertapenem Sodium [Invanz -] 1 gm IVPB DAILY vial 07/06/18 Zolpidem Tartrate [Ambien] 5 mg PO HS PRN #30 tablet MDD 1 07/06/18 Docusate Sodium [Colace -] 100 mg PO TID capsule 08/01/18 Zolpidem Tartrate [Ambien] 5 mg PO HS PRN #30 tablet MDD 1 08/01/18 metFORMIN HCL [Glucophage -] 500 mg PO BID@0700,1630 tablet 08/01/18 PMH Cancer: Yes (BLADDER W/ mets to liver and bone) Diabetes: Yes Disorders: Yes (BPH) HTN: Yes - Suicide/Smoking/Psychosocial Hx Smoking Status: Yes Smoking History: Never smoked Last Vital Signs Temp Pulse Resp BP Pulse Ox 103.8 F H 112 H 18 92/49 L 94 L 08/04/18 19:26 08/04/18 17:17 08/04/18 17:17 08/04/18 17:17 08/04/18 17:17 Cor: RSR, No murmurs, No gallops Lungs: Clear to P&A Abd: Soft, Normal bowel sounds, No organomegaly Ext:No significant edema Labs/Meds reviewed A/P 78 year old male, with a significant past medical history of diabetes, hypertension, metastatic bladder cancer (last chemo Jun 22 2018), thoracic aortic aneurysm, and cirrhosis, who presents to the emergency department with weakness, fever, fatigue, near syncope and diarrhea. Yesterday, He had two nephrostomy tubes taken out ? Urosepsis Recurrent MEropeniem/vanco/IV fluids Monitor CBC/CMP ID/nephrology consults/urology consult will follow
[2018-08-05] MEDS ORDERED: SODIUM CHLORIDE 1,000 ML IV SCH (01:30)
[2018-08-05] MEDS: MEROPENEM 1 GM in DEXTROSE 5%-WATER 100 ML IVPB SCH ×4 (02:03→18:37)
[2018-08-05] MEDS: ACETAMINOPHEN 325 MG TABLET (FP) PO PRN ×2 (02:10→12:00)
[2018-08-05] MEDS ORDERED: ACETAMINOPHEN 325 MG TABLET (FP) ONE ×2 (02:24→11:57)
[2018-08-05] MEDS ORDERED: DEXTROSE 5%-0.45% SALINE 1,000 ML IV SCH (03:45)
[2018-08-05] MEDS: DOCUSATE SODIUM 100 MG CAPSULE (FP) PO SCH ×3 (07:11→23:04)
[2018-08-05] MEDS ORDERED: TAMSULOSIN HCL 0.4 MG CAP ONE (07:59)
[2018-08-05] MEDS ORDERED: metFORMIN HCL 500 MG TABLET (FP) ONE (07:59)
[2018-08-05] MEDS: metFORMIN HCL 500 MG TABLET (FP) PO SCH ×2 (08:18→18:14)
[2018-08-05] MEDS: TAMSULOSIN HCL 0.4 MG CAP PO SCH (08:19)
[2018-08-05] MEDS: INSULIN SLIDING SCALE (NOVOLOG) 1 VIAL SQ SCH ×4 (08:20→23:06)
[2018-08-05 08:22] LABS: ALBUMIN 2.3 g/dl (3.4-5.0); ALK PHOS 476 U/L (45-117); ANION GAP 11 MMOL/L (8-16); BILIRUBIN,TOTAL 1.6 mg/dL (0.2-1); BLOOD UREA NITROGEN 17 mg/dL (7-18); CALCIUM 7.8 mg/dL (8.5-10.1); CHLORIDE 102 mmol/L (98-107); CO2 23 mmol/L (21-32); CREATININE 0.6 mg/dL (0.55-1.3); GLUCOSE,RANDOM 150 mg/dL (74-106); POTASSIUM 3.7 mmol/L (3.5-5.1); SGOT/AST 30 U/L (15-37); SGPT/ALT 24 U/L (13-61); SODIUM 136 mmol/L (136-145); TOT PROT 6.2 g/dl (6.4-8.2)
[2018-08-05 08:35] LABS: BASO % 0.4 % (0-2.0); EOS % 0.1 % (0-4.5); HEMATOCRIT 22.9 % (35.4-49); HEMOGLOBIN 7.3 GM/dL (11.7-16.9); LYMPH % 8.9 % (8-40); MCH 22.1 pg (25.7-33.7); MEAN PLT VOLUME 10.4 fl (7.5-11.1); MONO % 7.7 % (3.8-10.2); NEUT % 82.9 % (42.8-82.8); PLATELET COUNT 244 K/MM3 (134-434); RBC 3.32 M/mm3 (4.00-5.60); RDW 25.6 % (11.9-15.9); WHITE BLOOD COUNT 13.5 K/mm3 (4.0-10.0)
[2018-08-05] MEDS: NIFEdipine E.R. 30 MG TABLET (FP) PO SCH (09:43)
[2018-08-05] MEDS: HEPARIN NA (PORCINE) 5,000 UNITS/ML 1ML VIAL SQ SCH ×2 (09:43→23:04)
[2018-08-05] MEDS: MULTIVITAMINS (DAILY MVI) TABLET (FP) PO SCH (09:44)
[2018-08-05] MEDS: FINASTERIDE 5 MG TABLET (FP) PO SCH (09:44)
[2018-08-05] MEDS ORDERED: VANCOMYCIN 1 GRAM (PRE-DOCKED) 1,000 MG/250 ML BAG IVPB ONE (09:45)
[2018-08-05] MEDS ORDERED: PIPERACILLIN/TAZOB 3.375 GM 3.375 GM/50 ML BAG IVPB ONE (09:45)
[2018-08-05] MEDS ORDERED: PATIENT'S OWN MEDICATION (NON-FORMULARY) (Metformin Hcl [Glucophage] 1,000 MG) PO SCH (10:00)
[2018-08-05] MEDS ORDERED: VANCOMYCIN 1,000 MG in DEXTROSE 5%-WATER - 250 ML IVPB ONE (10:00)
[2018-08-05] MEDS ORDERED: PIPERACILLIN/TAZOB 3.375 GM 3.375 GM in DEXTROSE 5%-WATER - 50 ML IVPB SCH (10:00)
[2018-08-05] MEDS ORDERED: VANCOMYCIN 1 GRAM (PRE-DOCKED) 1,000 MG/250 ML BAG IVPB SCH (10:00)
[2018-08-05] MEDS ORDERED: SODIUM CHLORIDE 0.45% 1,000 ML IV SCH (11:30)
--- NOTE | 2018-08-05 12:07 | CONSULT ---
Consult - text type - Consultation Consultation Note: Renal consult This is a 78 year old gentleman with history of bladder cancer, hypertension, DM , TAA, cirrhosis with recent admission with KARTHIKEYAN from b/l hydronephrosis presents with fever and found to have sepsis syndrome. s/p b/l nephrostomy removal 4 days ago. Making urine in diaper. No flank pain at home but has some discomfort now on left side. No CP, SOB, Abd pain. Fevers x 1 day. No hematuria noted. PMhx: as above Allergies: NKDA Family Hx: NC Social Hx: No T/A/D ROS: As per HPI Home Medications Medication Instructions Recorded Finasteride [Proscar -] 5 mg PO DAILY 06/25/18 Metformin HCl [Glucophage] 1,000 mg PO BID 06/25/18 Metoclopramide HCl 5 mg PO BID PRN 06/25/18 Metoprolol Succinate [Toprol XL -] 100 mg PO DAILY 06/25/18 Multivit-Min/FA/Lycopen/Lutein 1 each PO DAILY 06/25/18 [Centrum Silver Men Tablet] Nifedipine [Procardia Xl] 30 mg PO DAILY 06/25/18 Silodosin [Rapaflo] 8 mg PO DAILY 06/25/18 Zolpidem Tartrate [Ambien] 5 mg PO HS 06/25/18 Ertapenem Sodium [Invanz -] 1 gm IVPB DAILY vial 07/06/18 Zolpidem Tartrate [Ambien] 5 mg PO HS PRN #30 tablet MDD 1 07/06/18 Docusate Sodium [Colace -] 100 mg PO TID capsule 08/01/18 Zolpidem Tartrate [Ambien] 5 mg PO HS PRN #30 tablet MDD 1 08/01/18 metFORMIN HCL [Glucophage -] 500 mg PO BID@0700,1630 tablet 08/01/18 Vital Signs Temperature 98.3 F 08/05/18 08:21 Pulse Rate 91 H 08/05/18 11:43 Respiratory Rate 20 08/05/18 11:43 Blood Pressure 129/82 08/05/18 11:43 O2 Sat by Pulse Oximetry (%) 98 08/05/18 11:43 Intake & Output 08/02/18 08/03/18 08/04/18 08/05/18 23:59 23:59 23:59 23:59 Weight 76.204 kg NAD neck supple, no JVD Dry MM RRR, No m/r CTA soft nT/nd no LE edema, clubbing or cyanosis no bladder distension CBC, BMP 08/05/18 06:00 08/05/18 06:00 Current Medications Acetaminophen (Tylenol -) 650 mg PO Q6H PRN PRN Reason: FEVER Last Admin: 08/05/18 12:00 Dose: 650 mg Docusate Sodium (Colace -) 100 mg PO TID [facility] Last Admin: 08/05/18 07:11 Dose: Not Given Finasteride (Proscar -) 5 mg PO DAILY [facility] Last Admin: 08/05/18 09:44 Dose: 5 mg Heparin Sodium (Porcine) (Heparin -) 5,000 unit SQ BID [facility] Last Admin: 08/05/18 09:43 Dose: 5,000 unit Meropenem 1 gm/ Dextrose 100 mls @ 200 mls/hr IVPB Q8H-IV LIT Piperacillin Sod/Tazobactam (Sod 3.375 gm/ Dextrose) 50 mls @ 100 mls/hr IVPB Q8H-IV [facility]; Protocol Last Admin: 08/05/18 10:28 Dose: 100 mls/hr Sodium Chloride (1/2 Normal Saline) 1,000 mls @ 75 mls/hr IV ASDIR [facility] Last Admin: 08/05/18 11:50 Dose: 75 mls/hr Insulin Aspart (Novolog Vial Sliding Scale -) 1 vial SQ ACHS [facility]; Protocol Last Admin: 08/05/18 08:20 Dose: 2 unit Metformin HCl (Glucophage -) 1,000 mg PO BID@0700,1630 [facility] Last Admin: 08/05/18 08:18 Dose: 1,000 mg Metoprolol Succinate (Toprol Xl -) 100 mg PO DAILY [facility] Last Admin: 08/05/18 09:44 Dose: 100 mg Multivitamins/Minerals/Vitamin C (Tab-A-Vit -) 1 tab PO DAILY [facility] Last Admin: 08/05/18 09:44 Dose: 1 tab Nifedipine (Procardia Xl -) 30 mg PO DAILY [facility] Last Admin: 08/05/18 09:43 Dose: 30 mg Tamsulosin HCl (Flomax -) 0.4 mg PO DAILY@0830 [facility] Last Admin: 08/05/18 08:19 Dose: 0.4 mg Vancomycin HCl (Vancomycin (Pre-Docked)) 1,000 mg IVPB BID [facility]; Protocol Zolpidem Tartrate (Ambien -) 5 mg PO HS PRN PRN Reason: INSOMNIA 78 year old gentleman with history of bladder cancer, hypertension, DM, TAA, cirrhosis with recent admission with KARTHIKEYAN from b/l hydronephrosis presents with fever and found to have sepsis syndrome #Sepsis r/o UTI/Pylonephritis #Hx of Hydronephrosis and KARTHIKEYAN now with normal renal function #Hypertension Renal function remains normal Check US of kidney r/o hydro or collection f/u cultures continue proscar IVF x 24 hours keep MAP > 65 Trend renal function and electrolytes Thank you Will follow Shalom Alarcon Do
[2018-08-05] MEDS ORDERED: INSULIN (NOVOLOG) ASPART 100 UNITS/ML 10ML VIAL ONE (12:08)
--- NOTE | 2018-08-05 12:44 | CON.ID ---
Consult - Past Medical History Cardio/Vascular: Yes: HTN, Hyperlipdemia Renal/: Yes: Renal Failure, BPH, Cancer, Hematuria Endocrine: Yes: Diabetes Mellitus - Past Surgical History Past Surgical History: Yes: Stent (urinary), TURP - Alcohol/Substance Use Hx Alcohol Use: No - Smoking History Smoking history: Never smoked Have you smoked in the past 12 months: No Aproximately how many cigarettes per day: 0 If you are a former smoker, when did you quit?: 1989 - Social History Usual Living Arrangement: With Spouse History of Recent Travel: No Home Medications - Allergies Allergies/Adverse Reactions: Allergies Allergy/AdvReac Type Severity Reaction Status Date / Time No Known Allergies Allergy Verified 08/04/18 17:16 - Home Medications Home Medications: Ambulatory Orders RX: Finasteride [Proscar -] 5 mg PO DAILY 06/25/18 RX: Metformin HCl [Glucophage] 1,000 mg PO BID 06/25/18 RX: Metoclopramide HCl 5 mg PO BID PRN 06/25/18 RX: Metoprolol Succinate [Toprol XL -] 100 mg PO DAILY 06/25/18 RX: Multivit-Min/FA/Lycopen/Lutein [Centrum Silver Men Tablet] 1 each PO DAILY 06/25/18 RX: Nifedipine [Procardia Xl] 30 mg PO DAILY 06/25/18 RX: Silodosin [Rapaflo] 8 mg PO DAILY 06/25/18 RX: Zolpidem Tartrate [Ambien] 5 mg PO HS 06/25/18 RX: Ertapenem Sodium [Invanz -] 1 gm IVPB DAILY vial 07/06/18 RX: Zolpidem Tartrate [Ambien] 5 mg PO HS PRN #30 tablet MDD 1 07/06/18 RX: Docusate Sodium [Colace -] 100 mg PO TID capsule 08/01/18 RX: Zolpidem Tartrate [Ambien] 5 mg PO HS PRN #30 tablet MDD 1 08/01/18 RX: metFORMIN HCL [Glucophage -] 500 mg PO BID@0700,1630 tablet 08/01/18 Physical Exam Vital Signs: Vital Signs Temperature 101.1 F H 08/05/18 11:43 Pulse Rate 91 H 08/05/18 11:43 Respiratory Rate 20 08/05/18 11:43 Blood Pressure 129/82 08/05/18 11:43 O2 Sat by Pulse Oximetry (%) 98 08/05/18 11:43 Labs: CBC, BMP 08/05/18 06:00 08/05/18 06:00
[2018-08-05] MEDS: SODIUM CHLORIDE 1,000 ML IV SCH (13:05)
--- NOTE | 2018-08-05 13:47 | HP ---
Admitting History and Physical - Past Medical History Cardiovascular: Yes: HTN, Hyperlipdemia Renal/: Yes: Renal Failure, BPH, Cancer, Hematuria Heme/Onc: Yes: Anemia Endocrine: Yes: Diabetes Mellitus - Past Surgical History Past Surgical History: Yes: Stent (urinary), TURP - Smoking History Smoking history: Never smoked Have you smoked in the past 12 months: No Aproximately how many cigarettes per day: 0 If you are a former smoker, when did you quit?: 1989 - Alcohol/Substance Use Hx Alcohol Use: No - Social History History of Recent Travel: No Home Medications - Allergies Allergies/Adverse Reactions: Allergies Allergy/AdvReac Type Severity Reaction Status Date / Time No Known Allergies Allergy Verified 08/04/18 17:16 - Home Medications Home Medications: Ambulatory Orders Finasteride [Proscar -] 5 mg PO DAILY 06/25/18 Metformin HCl [Glucophage] 1,000 mg PO BID 06/25/18 Metoclopramide HCl 5 mg PO BID PRN 06/25/18 Metoprolol Succinate [Toprol XL -] 100 mg PO DAILY 06/25/18 Multivit-Min/FA/Lycopen/Lutein [Centrum Silver Men Tablet] 1 each PO DAILY 06/25 Nifedipine [Procardia Xl] 30 mg PO DAILY 06/25/18 Silodosin [Rapaflo] 8 mg PO DAILY 06/25/18 Zolpidem Tartrate [Ambien] 5 mg PO HS 06/25/18 Ertapenem Sodium [Invanz -] 1 gm IVPB DAILY vial 07/06/18 Zolpidem Tartrate [Ambien] 5 mg PO HS PRN #30 tablet MDD 1 07/06/18 Docusate Sodium [Colace -] 100 mg PO TID capsule 08/01/18 Zolpidem Tartrate [Ambien] 5 mg PO HS PRN #30 tablet MDD 1 08/01/18 metFORMIN HCL [Glucophage -] 500 mg PO BID@0700,1630 tablet 08/01/18 Physical Examination Vital Signs: Vital Signs Temperature 101.1 F H 08/05/18 11:43 Pulse Rate 91 H 08/05/18 11:43 Respiratory Rate 20 08/05/18 11:43 Blood Pressure 129/82 08/05/18 11:43 O2 Sat by Pulse Oximetry (%) 98 10/20/18 11:43 Labs: CBC, BMP 10/20/18 06:00 08/05/18 06:00
--- NOTE | 2018-08-05 14:39 | PN ---
Progress Note (short form) - Note Progress Note: Patient seen and examined Feels well Denies any complaints Last Vital Signs Temp Pulse Resp BP Pulse Ox 101.1 F H 91 H 20 129/82 98 08/05/18 11:43 08/05/18 11:43 08/05/18 11:43 08/05/18 11:43 08/05/18 11:43 Cor: RSR, No murmurs, No gallops Lungs: Clear to P&A Abd: Soft, Normal bowel sounds, No organomegaly Ext:No significant edema Abnormal Lab Results 08/04/18 08/04/18 08/04/18 18:01 18:01 18:01 WBC 17.7 H RBC 3.75 L Hgb 8.4 L Hct 26.1 L MCV 69.6 L MCH 22.4 L RDW 25.2 H Absolute Neuts (auto) 15.8 H Neutrophils % 89.3 H Lymphocytes % 3.8 L D PT with INR 17.40 H INR 1.47 H VBG pH POC VBG pCO2 POC VBG pO2 Sodium BUN Random Glucose Lactic Acid 2.9 H* Calcium Total Bilirubin Alkaline Phosphatase Total Protein Albumin Urine Protein Urine Blood Ur Leukocyte Esterase 08/04/18 08/04/18 08/04/18 18:41 18:41 20:36 WBC RBC Hgb Hct MCV MCH RDW Absolute Neuts (auto) Neutrophils % Lymphocytes % PT with INR INR VBG pH 7.46 H POC VBG pCO2 35.0 L POC VBG pO2 23.4 L D Sodium BUN Random Glucose Lactic Acid 2.5 H* Calcium Total Bilirubin Alkaline Phosphatase Total Protein Albumin Urine Protein 1+ H Urine Blood 2+ H Ur Leukocyte Esterase 2+ H 08/04/18 08/05/18 08/05/18 20:36 06:00 06:00 WBC 13.5 H RBC 3.32 L Hgb 7.3 L Hct 22.9 L MCV 69.0 L MCH 22.1 L RDW 25.6 H Absolute Neuts (auto) 11.2 H Neutrophils % 82.9 H Lymphocytes % PT with INR INR VBG pH POC VBG pCO2 POC VBG pO2 Sodium 134 L BUN 19 H Random Glucose 198 H 150 H Lactic Acid Calcium 8.1 L 7.8 L Total Bilirubin 1.4 H 1.6 H Alkaline Phosphatase 508 H 476 H Total Protein 6.2 L Albumin 2.4 L 2.3 L Urine Protein Urine Blood Ur Leukocyte Esterase Home Medication List Medication Instructions Recorded Confirmed Type Finasteride [Proscar -] 5 mg PO DAILY 06/25/18 07/14/18 History Metformin HCl [Glucophage] 1,000 mg PO BID 06/25/18 07/14/18 History Metoclopramide HCl 5 mg PO BID PRN 06/25/18 07/14/18 History Metoprolol Succinate [Toprol XL -] 100 mg PO DAILY 06/25/18 07/14/18 History Multivit-Min/FA/Lycopen/Lutein 1 each PO DAILY 06/25/18 07/14/18 History [Centrum Silver Men Tablet] Nifedipine [Procardia Xl] 30 mg PO DAILY 06/25/18 07/14/18 History Silodosin [Rapaflo] 8 mg PO DAILY 06/25/18 07/14/18 History Zolpidem Tartrate [Ambien] 5 mg PO HS 06/25/18 07/14/18 History Active Medications Generic Name Dose Route Start Last Admin Trade Name Freq PRN Reason Stop Dose Admin Acetaminophen 650 mg 08/05/18 03:11 08/05/18 12:00 Tylenol - PO 650 mg Q6H PRN Administration FEVER Docusate Sodium 100 mg 08/05/18 06:00 08/05/18 13:21 Colace - PO Not Given TID LIT Finasteride 5 mg 08/05/18 10:00 08/05/18 09:44 Proscar - PO 5 mg DAILY LIT Administration Heparin Sodium (Porcine) 5,000 unit 08/05/18 10:00 08/05/18 09:43 Heparin - SQ 5,000 unit BID LIT Administration Piperacillin Sod/Tazobactam 50 mls @ 100 mls/hr 08/05/18 10:00 08/05/18 10:28 Sod 3.375 gm/ Dextrose IVPB 100 mls/hr Q8H-IV LIT Administration Protocol Sodium Chloride 1,000 mls @ 83 mls/hr 08/05/18 12:15 08/05/18 13:05 Normal Saline - IV 83 mls/hr ASDIR LIT Administration Meropenem 1 gm/ Dextrose 100 mls @ 200 mls/hr 08/05/18 18:00 IVPB Q8H-IV LIT Insulin Aspart 1 vial 08/05/18 07:00 08/05/18 12:16 Novolog Vial Sliding Scale - SQ 2 unit ACHS LIT Administration Protocol Metformin HCl 1,000 mg 08/05/18 07:00 08/05/18 08:18 Glucophage - PO 1,000 mg BID@0700,1630 LIT Administration Metoprolol Succinate 100 mg 08/05/18 10:00 08/05/18 09:44 Toprol Xl - PO 100 mg DAILY LIT Administration Multivitamins/Minerals/Vitamin C 1 tab 08/05/18 10:00 08/05/18 09:44 Tab-A-Vit - PO 1 tab DAILY LIT Administration Nifedipine 30 mg 08/05/18 10:00 08/05/18 09:43 Procardia Xl - PO 30 mg DAILY LIT Administration Tamsulosin HCl 0.4 mg 08/05/18 08:30 08/05/18 08:19 Flomax - PO 0.4 mg DAILY@0830 LIT Administration Zolpidem Tartrate 5 mg 08/05/18 03:24 Ambien - PO HS PRN INSOMNIA A/P 78 year old male, with a significant past medical history of diabetes, hypertension, metastatic bladder cancer (last chemo Jun 22 2018), thoracic aortic aneurysm, and cirrhosis, who presents to the emergency department with weakness, fever, fatigue, near syncope and diarrhea. Yesterday, He had two nephrostomy tubes taken out ? Urosepsis Recurrent MEropeniem/vanco/IV fluids Monitor CBC/CMP ID/nephrology consults/urology consult transfuse PRBCs for hgb <7 will follow
[2018-08-05 16:21] VITALS: BMI 24.5
[2018-08-05] MEDS ORDERED: FLU VACCINE QUAD 60 MCG/0.5 ML (MDV 18-19) IM ONE (16:30)
--- NOTE | 2018-08-05 18:04 | EKG ---
Test Reason : Blood Pressure : / mmHG Vent. Rate : 113 BPM Atrial Rate : 113 BPM P-R Int : 210 ms QRS Dur : 102 ms QT Int : 320 ms P-R-T Axes : 051 -58 039 degrees QTc Int : 438 ms SINUS TACHYCARDIA WITH 1ST DEGREE A-V BLOCK WITH PREMATURE ATRIAL COMPLEXES LEFT AXIS DEVIATION ABNORMAL ECG WHEN COMPARED WITH ECG OF 14-JUL-2018 21:52, NO SIGNIFICANT CHANGE WAS FOUND Confirmed by VICKY LYNCH, RAHEL ([id number]) on 08/05/2018 6:03:43 PM Referred By: Confirmed By:RAHEL PERYR MD
[2018-08-05 18:25] LABS: BASO % 0.3 % (0-2.0); EOS % 0.3 % (0-4.5); HEMATOCRIT 27.6 % (35.4-49); HEMOGLOBIN 8.6 GM/dL (11.7-16.9); LYMPH % 11.9 % (8-40); MCH 21.6 pg (25.7-33.7); MEAN CELL VOLUME 69.6 fl (80-96); MEAN PLT VOLUME 9.6 fl (7.5-11.1); MONO % 7.5 % (3.8-10.2); PLATELET COUNT 293 K/MM3 (134-434); RBC 3.97 M/mm3 (4.00-5.60); RDW 25.6 % (11.9-15.9); WHITE BLOOD COUNT 16.9 K/mm3 (4.0-10.0)
[2018-08-05] MEDS: ZOLPIDEM TARTRATE 5 MG TABLET PO PRN (23:09)
[2018-08-06] MEDS ORDERED: PT OWN MED DRAWER 7, Y5N ONE ×2 (00:59→09:06)
[2018-08-06] MEDS: MEROPENEM 1 GM in DEXTROSE 5%-WATER 100 ML IVPB SCH ×2 (01:45→10:15)
[2018-08-06] MEDS: SODIUM CHLORIDE 1,000 ML IV SCH ×2 (01:52→15:02)
[2018-08-06] MEDS: DOCUSATE SODIUM 100 MG CAPSULE (FP) PO SCH ×3 (06:38→21:23)
[2018-08-06] MEDS: metFORMIN HCL 500 MG TABLET (FP) PO SCH ×2 (06:39→17:49)
[2018-08-06] MEDS: INSULIN SLIDING SCALE (NOVOLOG) 1 VIAL SQ SCH ×4 (06:40→22:30)
[2018-08-06 08:00] LABS: BASO % 0.3 % (0-2.0); EOS % 0.1 % (0-4.5); HEMATOCRIT 23.2 % (35.4-49); HEMOGLOBIN 7.3 GM/dL (11.7-16.9); LYMPH % 7.6 % (8-40); MCH 21.6 pg (25.7-33.7); MCHC 31.5 g/dl (32.0-35.9); MEAN CELL VOLUME 68.6 fl (80-96); MEAN PLT VOLUME 9.7 fl (7.5-11.1); PLATELET COUNT 213 K/MM3 (134-434); RBC 3.38 M/mm3 (4.00-5.60); RDW 25.2 % (11.9-15.9); WHITE BLOOD COUNT 15.1 K/mm3 (4.0-10.0)
[2018-08-06 08:51] LABS: ALBUMIN 2.2 g/dl (3.4-5.0); ALK PHOS 556 U/L (45-117); ANION GAP 13 MMOL/L (8-16); BILIRUBIN,TOTAL 1.6 mg/dL (0.2-1); BLOOD UREA NITROGEN 15 mg/dL (7-18); CALCIUM 7.8 mg/dL (8.5-10.1); CHLORIDE 104 mmol/L (98-107); CO2 22 mmol/L (21-32); CREATININE 0.6 mg/dL (0.55-1.3); GLUCOSE,RANDOM 134 mg/dL (74-106); MAGNESIUM 1.7 mg/dL (1.8-2.4); POTASSIUM 3.9 mmol/L (3.5-5.1); SGOT/AST 36 U/L (15-37); SGPT/ALT 29 U/L (13-61); SODIUM 139 mmol/L (136-145); TOT PROT 6.3 g/dl (6.4-8.2)
[2018-08-06] MEDS: FINASTERIDE 5 MG TABLET (FP) PO SCH (09:20)
[2018-08-06] MEDS: MULTIVITAMINS (DAILY MVI) TABLET (FP) PO SCH (09:20)
[2018-08-06] MEDS: TAMSULOSIN HCL 0.4 MG CAP PO SCH (09:20)
[2018-08-06] MEDS: NIFEdipine E.R. 30 MG TABLET (FP) PO SCH (09:20)
[2018-08-06] MEDS: HEPARIN NA (PORCINE) 5,000 UNITS/ML 1ML VIAL SQ SCH ×2 (09:21→21:20)
--- NOTE | 2018-08-06 09:34 | PN ---
Progress Note (short form) - Note Progress Note: Renal follow up Pt seen and examined at the bedside no acute complaints no sob, cp, abd pain making urine no fevers no flank pain Vital Signs Temperature 98.6 F 08/06/18 09:01 Pulse Rate 113 H 08/06/18 09:01 Respiratory Rate 18 08/06/18 09:01 Blood Pressure 120/57 L 08/06/18 09:01 O2 Sat by Pulse Oximetry (%) 96 08/05/18 21:00 Intake & Output 08/03/18 08/04/18 08/05/18 08/06/18 23:59 23:59 23:59 23:59 Intake Total 466 Balance 466 Weight 76.204 kg 73.028 kg NAD RRR, No m/r CTA soft nT/nd no LE edema, clubbing or cyanosis no bladder distension CBC, BMP 08/06/18 07:00 08/06/18 07:00 Current Medications Acetaminophen (Tylenol -) 650 mg PO Q6H PRN PRN Reason: FEVER Last Admin: 08/05/18 12:00 Dose: 650 mg Docusate Sodium (Colace -) 100 mg PO TID [facility] Last Admin: 08/06/18 06:38 Dose: 100 mg Finasteride (Proscar -) 5 mg PO DAILY [facility] Last Admin: 08/06/18 09:20 Dose: 5 mg Heparin Sodium (Porcine) (Heparin -) 5,000 unit SQ BID [facility] Last Admin: 08/06/18 09:21 Dose: 5,000 unit Sodium Chloride (Normal Saline -) 1,000 mls @ 83 mls/hr IV ASDIR [facility] Last Admin: 08/06/18 01:52 Dose: 83 mls/hr Meropenem 1 gm/ Dextrose 100 mls @ 200 mls/hr IVPB Q8H-IV LIT Last Admin: 08/06/18 01:45 Dose: 200 mls/hr Insulin Aspart (Novolog Vial Sliding Scale -) 1 vial SQ ACHS [facility]; Protocol Last Admin: 08/06/18 06:40 Dose: 2 unit Metformin HCl (Glucophage -) 1,000 mg PO BID@0700,1630 [facility] Last Admin: 08/06/18 06:39 Dose: 1,000 mg Metoprolol Succinate (Toprol Xl -) 100 mg PO DAILY [facility] Last Admin: 08/06/18 09:20 Dose: 100 mg Multivitamins/Minerals/Vitamin C (Tab-A-Vit -) 1 tab PO DAILY [facility] Last Admin: 08/06/18 09:20 Dose: 1 tab Nifedipine (Procardia Xl -) 30 mg PO DAILY [facility] Last Admin: 08/06/18 09:20 Dose: 30 mg Tamsulosin HCl (Flomax -) 0.4 mg PO DAILY@0830 [facility] Last Admin: 08/06/18 09:20 Dose: 0.4 mg Zolpidem Tartrate (Ambien -) 5 mg PO HS PRN PRN Reason: INSOMNIA Last Admin: 08/05/18 23:09 Dose: 5 mg 78 year old gentleman with history of bladder cancer, hypertension, DM, TAA, cirrhosis with recent admission with KARTHIKEYAN from b/l hydronephrosis presents with fever and found to have sepsis syndrome #Sepsis r/o UTI/Pylonephritis #Hx of Hydronephrosis and KARTHIKEYAN now with normal renal function #Hypertension Renal function stable f/u US of the kidney continue empiric abx f/u cultures ID and follow up continue proscar continue IVF, keep MAP > 65 Trend renal function and electrolytes Shalom Alarcon Do
[2018-08-06] MEDS: ACETAMINOPHEN 325 MG TABLET (FP) PO PRN ×2 (09:36→22:25)
--- NOTE | 2018-08-06 11:06 | EKG ---
Test Reason : Blood Pressure : / mmHG Vent. Rate : 116 BPM Atrial Rate : 116 BPM P-R Int : 206 ms QRS Dur : 096 ms QT Int : 318 ms P-R-T Axes : 060 -63 022 degrees QTc Int : 442 ms SINUS TACHYCARDIA LEFT AXIS DEVIATION INFERIOR INFARCT , AGE UNDETERMINED ABNORMAL ECG WHEN COMPARED WITH ECG OF 04-AUG-2018 18:31, PREMATURE ATRIAL COMPLEXES ARE NO LONGER PRESENT Confirmed by VICKY LYNCH, RAHEL ([id number]) on 08/06/2018 11:06:07 AM Referred By: Rona SHAW Confirmed By:RAHEL PERRY MD
--- NOTE | 2018-08-06 12:46 | PN ---
Progress Note, Physician History of Present Illness: patient stable no new issues feels much better - Current Medication List Current Medications: Active Medications Acetaminophen (Tylenol -) 650 mg PO Q6H PRN PRN Reason: FEVER Last Admin: 08/06/18 09:36 Dose: 650 mg Docusate Sodium (Colace -) 100 mg PO TID [facility] Last Admin: 08/06/18 06:38 Dose: 100 mg Finasteride (Proscar -) 5 mg PO DAILY [facility] Last Admin: 08/06/18 09:20 Dose: 5 mg Heparin Sodium (Porcine) (Heparin -) 5,000 unit SQ BID [facility] Last Admin: 08/06/18 09:21 Dose: 5,000 unit Sodium Chloride (Normal Saline -) 1,000 mls @ 83 mls/hr IV ASDIR [facility] Last Admin: 08/06/18 01:52 Dose: 83 mls/hr Meropenem 1 gm/ Dextrose 100 mls @ 200 mls/hr IVPB Q8H-IV [facility] Last Admin: 08/06/18 10:15 Dose: 200 mls/hr Insulin Aspart (Novolog Vial Sliding Scale -) 1 vial SQ ACHS [facility]; Protocol Last Admin: 08/06/18 11:32 Dose: 4 unit Metformin HCl (Glucophage -) 1,000 mg PO BID@0700,1630 [facility] Last Admin: 08/06/18 06:39 Dose: 1,000 mg Metoprolol Succinate (Toprol Xl -) 100 mg PO DAILY [facility] Last Admin: 08/06/18 09:20 Dose: 100 mg Multivitamins/Minerals/Vitamin C (Tab-A-Vit -) 1 tab PO DAILY [facility] Last Admin: 08/06/18 09:20 Dose: 1 tab Nifedipine (Procardia Xl -) 30 mg PO DAILY [facility] Last Admin: 08/06/18 09:20 Dose: 30 mg Tamsulosin HCl (Flomax -) 0.4 mg PO DAILY@0830 [facility] Last Admin: 08/06/18 09:20 Dose: 0.4 mg Zolpidem Tartrate (Ambien -) 5 mg PO HS PRN PRN Reason: INSOMNIA Last Admin: 08/05/18 23:09 Dose: 5 mg - Objective Vital Signs: Vital Signs Temperature 98.6 F 08/06/18 09:01 Pulse Rate 113 H 08/06/18 09:01 Respiratory Rate 18 08/06/18 09:01 Blood Pressure 120/57 L 08/06/18 09:01 O2 Sat by Pulse Oximetry (%) 96 08/05/18 21:00 Constitutional: Yes: No Distress, Calm Neck: Yes: Supple, Trachea Midline Cardiovascular: Yes: Regular Rate and Rhythm Respiratory: Yes: Regular, CTA Bilaterally Gastrointestinal: Yes: Normal Bowel Sounds, Soft Musculoskeletal: Yes: WNL Extremities: Yes: WNL Neurological: Yes: Alert, Oriented Psychiatric: Yes: Alert, Oriented Labs: CBC, BMP 08/06/18 07:00 08/06/18 07:00 INR, PTT INR 1.47 (0.83-1.09) H 08/04/18 18:01 Assessment/Plan patient with multiple medical problems including ca bladder came in with sepsis and fevers i have a suspicion that patient is retaining urine all cx reports noted plan will stop meropenam and observe hydration rest as per the team work up for urinary retention
[2018-08-06 17:41] LABS: HEMOGLOBIN 7.3 GM/dL (11.7-16.9); MCH 21.8 pg (25.7-33.7); MCHC 31.9 g/dl (32.0-35.9); MEAN CELL VOLUME 68.2 fl (80-96); MEAN PLT VOLUME 9.6 fl (7.5-11.1); PLATELET COUNT 231 K/MM3 (134-434); RBC 3.37 M/mm3 (4.00-5.60); RDW 25.1 % (11.9-15.9); WHITE BLOOD COUNT 12.4 K/mm3 (4.0-10.0)
--- NOTE | 2018-08-06 20:42 | PN ---
Progress Note, Physician History of Present Illness: No new complaints - Current Medication List Current Medications: Active Medications Acetaminophen (Tylenol -) 650 mg PO Q6H PRN PRN Reason: FEVER Last Admin: 08/06/18 09:36 Dose: 650 mg Docusate Sodium (Colace -) 100 mg PO TID [facility] Last Admin: 08/06/18 15:02 Dose: Not Given Finasteride (Proscar -) 5 mg PO DAILY [facility] Last Admin: 08/06/18 09:20 Dose: 5 mg Heparin Sodium (Porcine) (Heparin -) 5,000 unit SQ BID [facility] Last Admin: 08/06/18 09:21 Dose: 5,000 unit Sodium Chloride (Normal Saline -) 1,000 mls @ 83 mls/hr IV ASDIR [facility] Last Admin: 08/06/18 15:02 Dose: Not Given Insulin Aspart (Novolog Vial Sliding Scale -) 1 vial SQ ACHS [facility]; Protocol Last Admin: 08/06/18 17:09 Dose: 2 unit Metformin HCl (Glucophage -) 1,000 mg PO BID@0700,1630 [facility] Last Admin: 08/06/18 17:49 Dose: 1,000 mg Metoprolol Succinate (Toprol Xl -) 100 mg PO DAILY [facility] Last Admin: 08/06/18 09:20 Dose: 100 mg Multivitamins/Minerals/Vitamin C (Tab-A-Vit -) 1 tab PO DAILY [facility] Last Admin: 08/06/18 09:20 Dose: 1 tab Nifedipine (Procardia Xl -) 30 mg PO DAILY [facility] Last Admin: 08/06/18 09:20 Dose: 30 mg Tamsulosin HCl (Flomax -) 0.4 mg PO DAILY@0830 [facility] Last Admin: 08/06/18 09:20 Dose: 0.4 mg Zolpidem Tartrate (Ambien -) 5 mg PO HS PRN PRN Reason: INSOMNIA Last Admin: 08/05/18 23:09 Dose: 5 mg - Objective Vital Signs: Vital Signs Temperature 98.1 F 08/06/18 14:56 Pulse Rate 92 H 08/06/18 14:56 Respiratory Rate 19 08/06/18 14:56 Blood Pressure 92/63 08/06/18 14:56 O2 Sat by Pulse Oximetry (%) 96 08/06/18 09:00 Constitutional: Yes: Pallor Neck: Yes: WNL, Supple Cardiovascular: Yes: WNL, Regular Rate and Rhythm Respiratory: Yes: WNL, Regular, CTA Bilaterally Gastrointestinal: Yes: WNL, Normal Bowel Sounds, Soft Labs: CBC, BMP 08/06/18 17:30 08/06/18 07:00 INR, PTT INR 1.47 (0.83-1.09) H 08/04/18 18:01 Problem List - Problems (1) Sepsis Assessment/Plan: Cont IV antibxs Monitor cultures WBC improving Code(s): A41.9 - SEPSIS, UNSPECIFIED ORGANISM Qualifiers: Sepsis type: sepsis due to unspecified organism Qualified Code(s): A41.9 - Sepsis, unspecified organism (2) 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 Code(s): C79.9 - SECONDARY MALIGNANT NEOPLASM OF UNSPECIFIED SITE; C67.9 - MALIGNANT NEOPLASM OF BLADDER, UNSPECIFIED (3) Anemia Code(s): D64.9 - ANEMIA, UNSPECIFIED Qualifiers: Anemia type: due to chronic kidney disease Chronic kidney disease stage: stage 3 (moderate) Qualified Code(s): N18.3 - Chronic kidney disease, stage 3 (moderate); D63.1 - Anemia in chronic kidney disease (4) Diabetes Code(s): E11.9 - TYPE 2 DIABETES MELLITUS WITHOUT COMPLICATIONS (5) HLD (hyperlipidemia) Code(s): E78.5 - HYPERLIPIDEMIA, UNSPECIFIED (6) Hypertension Code(s): I10 - ESSENTIAL (PRIMARY) HYPERTENSION Qualifiers: Hypertension type: other secondary hypertension Qualified Code(s): I15.8 - Other secondary hypertension
[2018-08-06] MEDS ORDERED: INSULIN (NOVOLOG) ASPART 100 UNITS/ML 10ML VIAL ONE (21:00)
[2018-08-06] MEDS: ZOLPIDEM TARTRATE 5 MG TABLET PO PRN (23:14)
[2018-08-07] MEDS: SODIUM CHLORIDE 1,000 ML IV SCH ×2 (03:45→21:44)
[2018-08-07] MEDS: DOCUSATE SODIUM 100 MG CAPSULE (FP) PO SCH ×4 (05:54→21:43)
[2018-08-07] MEDS: INSULIN SLIDING SCALE (NOVOLOG) 1 VIAL SQ SCH ×4 (06:23→21:43)
[2018-08-07] MEDS: metFORMIN HCL 500 MG TABLET (FP) PO SCH ×2 (06:23→17:29)
[2018-08-07] MEDS: ACETAMINOPHEN 325 MG TABLET (FP) PO PRN ×2 (06:27→15:43)
[2018-08-07 07:25] LABS: BASO % 0.2 % (0-2.0); HEMATOCRIT 20.9 % (35.4-49); LYMPH % 7.9 % (8-40); MCH 21.6 pg (25.7-33.7); MCHC 32.1 g/dl (32.0-35.9); MEAN CELL VOLUME 67.4 fl (80-96); MEAN PLT VOLUME 10.4 fl (7.5-11.1); MONO % 7.7 % (3.8-10.2); NEUT % 84.2 % (42.8-82.8); PLATELET COUNT 211 K/MM3 (134-434); RBC 3.11 M/mm3 (4.00-5.60); RDW 25.3 % (11.9-15.9); WHITE BLOOD COUNT 13.8 K/mm3 (4.0-10.0)
[2018-08-07 07:37] LABS: HEMOGLOBIN 6.7 GM/dL (11.7-16.9)
[2018-08-07 07:38] LABS: ALK PHOS 465 U/L (45-117); ANION GAP 10 MMOL/L (8-16); BILIRUBIN,TOTAL 1.4 mg/dL (0.2-1); BLOOD UREA NITROGEN 15 mg/dL (7-18); CALCIUM 7.8 mg/dL (8.5-10.1); CHLORIDE 103 mmol/L (98-107); CO2 22 mmol/L (21-32); CREATININE 0.7 mg/dL (0.55-1.3); GLUCOSE,RANDOM 119 mg/dL (74-106); MAGNESIUM 1.7 mg/dL (1.8-2.4); PHOSPHOROUS 2.7 mg/dL (2.5-4.9); POTASSIUM 3.8 mmol/L (3.5-5.1); SGOT/AST 38 U/L (15-37); SGPT/ALT 25 U/L (13-61); SODIUM 135 mmol/L (136-145)
--- NOTE | 2018-08-07 10:45 | PN ---
Progress Note, Physician History of Present Illness: stable this morning patient has started spiking fevers again patient has internal catheter present - Current Medication List Current Medications: Active Medications Acetaminophen (Tylenol -) 650 mg PO Q6H PRN PRN Reason: FEVER Last Admin: 08/07/18 06:27 Dose: 650 mg Docusate Sodium (Colace -) 100 mg PO TID [facility] Last Admin: 08/07/18 05:54 Dose: Not Given Finasteride (Proscar -) 5 mg PO DAILY [facility] Last Admin: 08/06/18 09:20 Dose: 5 mg Heparin Sodium (Porcine) (Heparin -) 5,000 unit SQ BID [facility] Last Admin: 08/06/18 21:20 Dose: 5,000 unit Sodium Chloride (Normal Saline -) 1,000 mls @ 83 mls/hr IV ASDIR [facility] Last Admin: 08/07/18 03:45 Dose: 83 mls/hr Insulin Aspart (Novolog Vial Sliding Scale -) 1 vial SQ ACHS [facility]; Protocol Last Admin: 08/07/18 06:23 Dose: Not Given Metformin HCl (Glucophage -) 1,000 mg PO BID@0700,1630 [facility] Last Admin: 08/07/18 06:23 Dose: 1,000 mg Metoprolol Succinate (Toprol Xl -) 100 mg PO DAILY [facility] Last Admin: 08/06/18 09:20 Dose: 100 mg Multivitamins/Minerals/Vitamin C (Tab-A-Vit -) 1 tab PO DAILY [facility] Last Admin: 08/06/18 09:20 Dose: 1 tab Nifedipine (Procardia Xl -) 30 mg PO DAILY [facility] Last Admin: 08/06/18 09:20 Dose: 30 mg Tamsulosin HCl (Flomax -) 0.4 mg PO DAILY@0830 [facility] Last Admin: 08/06/18 09:20 Dose: 0.4 mg Zolpidem Tartrate (Ambien -) 5 mg PO HS PRN PRN Reason: INSOMNIA Last Admin: 08/06/18 23:14 Dose: 5 mg - Objective Vital Signs: Vital Signs Temperature 102.8 F H 08/07/18 06:00 Pulse Rate 94 H 08/07/18 06:00 Respiratory Rate 20 08/07/18 06:00 Blood Pressure 125/70 08/07/18 06:00 O2 Sat by Pulse Oximetry (%) 96 08/06/18 21:00 Constitutional: Yes: No Distress, Calm Cardiovascular: Yes: Regular Rate and Rhythm Respiratory: Yes: Regular, CTA Bilaterally Gastrointestinal: Yes: Normal Bowel Sounds, Soft Musculoskeletal: Yes: WNL Extremities: Yes: WNL Neurological: Yes: Alert, Oriented Psychiatric: Yes: Alert, Oriented Labs: CBC, BMP 08/07/18 06:30 08/07/18 06:30 INR, PTT INR 1.47 (0.83-1.09) H 08/04/18 18:01 Assessment/Plan sepsis fever uti weakness ca bladder patient now spiking fevers and wbc has started increasing growing vre in urine though the counts are low patient has foreign body and patient spiking fevers also will wait for blood cx rest continue current mgmt will watch for fevers if patient spikes fevers will broaden the coverage
[2018-08-07] MEDS: LINEZOLID 600 MG PREMIX BAG 600 MG/300 ML BAG IVPB SCH ×2 (11:23→21:42)
[2018-08-07] MEDS: HEPARIN NA (PORCINE) 5,000 UNITS/ML 1ML VIAL SQ SCH ×2 (11:27→21:42)
[2018-08-07] MEDS: TAMSULOSIN HCL 0.4 MG CAP PO SCH (11:27)
[2018-08-07] MEDS: NIFEdipine E.R. 30 MG TABLET (FP) PO SCH (11:27)
[2018-08-07] MEDS: FINASTERIDE 5 MG TABLET (FP) PO SCH (11:27)
[2018-08-07] MEDS: MULTIVITAMINS (DAILY MVI) TABLET (FP) PO SCH (11:27)
[2018-08-07] MEDS ORDERED: INSULIN (NOVOLOG) ASPART 100 UNITS/ML 10ML VIAL ONE ×3 (12:42→21:38)
--- NOTE | 2018-08-07 12:43 | PN ---
Progress Note (short form) - Note Progress Note: Renal follow up Pt seen and examined at the bedside no acute complaints feels weak but better overal getting blood making urine Vital Signs Temperature 98.6 F 08/07/18 11:22 Pulse Rate 105 H 08/07/18 11:22 Respiratory Rate 20 08/07/18 11:22 Blood Pressure 111/66 08/07/18 11:22 O2 Sat by Pulse Oximetry (%) 96 08/06/18 21:00 NAD RRR, No m/r CTA soft nT/nd no LE edema, clubbing or cyanosis no bladder distension CBC, BMP 08/07/18 06:30 08/07/18 06:30 Current Medications Acetaminophen (Tylenol -) 650 mg PO Q6H PRN PRN Reason: FEVER Last Admin: 08/07/18 06:27 Dose: 650 mg Docusate Sodium (Colace -) 100 mg PO TID [facility] Last Admin: 08/07/18 05:54 Dose: Not Given Finasteride (Proscar -) 5 mg PO DAILY [facility] Last Admin: 08/07/18 11:27 Dose: 5 mg Heparin Sodium (Porcine) (Heparin -) 5,000 unit SQ BID LIT Last Admin: 08/07/18 11:27 Dose: 5,000 unit Sodium Chloride (Normal Saline -) 1,000 mls @ 83 mls/hr IV ASDIR [facility] Last Admin: 08/07/18 03:45 Dose: 83 mls/hr Linezolid (Zyvox 600 Mg Premix Bag (Restricted To Id) -) 600 mg in 300 mls @ 300 mls/hr IVPB BID [facility]; Protocol Last Admin: 08/07/18 11:23 Dose: 300 mls/hr Insulin Aspart (Novolog Vial Sliding Scale -) 1 vial SQ ACHS [facility]; Protocol Last Admin: 08/07/18 12:51 Dose: 4 unit Metformin HCl (Glucophage -) 1,000 mg PO BID@0700,1630 [facility] Last Admin: 08/07/18 06:23 Dose: 1,000 mg Metoprolol Succinate (Toprol Xl -) 100 mg PO DAILY [facility] Last Admin: 08/07/18 11:27 Dose: 100 mg Multivitamins/Minerals/Vitamin C (Tab-A-Vit -) 1 tab PO DAILY [facility] Last Admin: 08/07/18 11:27 Dose: 1 tab Nifedipine (Procardia Xl -) 30 mg PO DAILY [facility] Last Admin: 08/07/18 11:27 Dose: 30 mg Tamsulosin HCl (Flomax -) 0.4 mg PO DAILY@0830 [facility] Last Admin: 08/07/18 11:27 Dose: 0.4 mg Zolpidem Tartrate (Ambien -) 5 mg PO HS PRN PRN Reason: INSOMNIA Last Admin: 08/06/18 23:14 Dose: 5 mg 78 year old gentleman with history of bladder cancer, hypertension, DM, TAA, cirrhosis with recent admission with KARTHIKEYAN from b/l hydronephrosis presents with fever and found to have sepsis syndrome #Sepsis r/o UTI/Pylonephritis #Hx of Hydronephrosis and KARTHIKEYAN now with normal renal function #Hypertension Renal function stable US of the kidney pending getting prbc on Abx as per ID Urology follow up regarding stent management in setting of infection Shlaom Alarcon Do
--- NOTE | 2018-08-07 16:06 | CON.GU ---
Consult Consult Specialty:: Urology Reason for Consultation:: Urosepsis - History of Present Illness Chief Complaint: Infection - History Source History Provided By: Patient Limitations to Obtaining History: No Limitations - Past Medical History Cardio/Vascular: Yes: HTN, Hyperlipdemia Renal/: Yes: Renal Failure, BPH, Cancer, Hematuria Endocrine: Yes: Diabetes Mellitus - Past Surgical History Past Surgical History: Yes: Stent (urinary), TURP - Alcohol/Substance Use Hx Alcohol Use: No - Smoking History Smoking history: Never smoked Have you smoked in the past 12 months: No Aproximately how many cigarettes per day: 0 If you are a former smoker, when did you quit?: 1989 - Social History Usual Living Arrangement: With Spouse History of Recent Travel: No Home Medications - Allergies Allergies/Adverse Reactions: Allergies Allergy/AdvReac Type Severity Reaction Status Date / Time No Known Allergies Allergy Verified 08/04/18 17:16 - Home Medications Home Medications: Ambulatory Orders Finasteride [Proscar -] 5 mg PO DAILY 06/25/18 Metformin HCl [Glucophage] 1,000 mg PO BID 06/25/18 Metoclopramide HCl 5 mg PO BID PRN 06/25/18 Metoprolol Succinate [Toprol XL -] 100 mg PO DAILY 06/25/18 Multivit-Min/FA/Lycopen/Lutein [Centrum Silver Men Tablet] 1 each PO DAILY 06/25 Nifedipine [Procardia Xl] 30 mg PO DAILY 06/25/18 Silodosin [Rapaflo] 8 mg PO DAILY 06/25/18 Zolpidem Tartrate [Ambien] 5 mg PO HS 06/25/18 Ertapenem Sodium [Invanz -] 1 gm IVPB DAILY vial 07/06/18 Zolpidem Tartrate [Ambien] 5 mg PO HS PRN #30 tablet MDD 1 07/06/18 Docusate Sodium [Colace -] 100 mg PO TID capsule 08/01/18 Zolpidem Tartrate [Ambien] 5 mg PO HS PRN #30 tablet MDD 1 08/01/18 metFORMIN HCL [Glucophage -] 500 mg PO BID@0700,1630 tablet 08/01/18 Physical Exam- Vital Signs: Vital Signs Temperature 100.6 F H 08/07/18 15:55 Pulse Rate 114 H 08/07/18 15:55 Respiratory Rate 20 08/07/18 15:55 Blood Pressure 131/78 08/07/18 15:55 O2 Sat by Pulse Oximetry (%) 95 08/07/18 09:00 Labs: CBC, BMP 08/07/18 06:30 08/07/18 06:30 Assessment/Plan 78 Year old male with inoperable, ca of the bladder,readmitted with urosepsis. Pt was recently discharged after stent replacement. PCN s were removed from both sides and he had bilateral ureteral stents for severe hydronephrosis. Pt needs the stents at present and can't be removed, lest hydroneprosis will recur.Pt denies any difficulty in passing urine. Will wait for Renal and pelvic sono to evaluate the status. Best course at present will be to treat with appropriate antibiotics and see. Thank you Will follow as necessary. Dr. Burciaga
[2018-08-07 19:09] LABS: BASO % 0.1 % (0-2.0); EOS % 0.1 % (0-4.5); HEMATOCRIT 24.8 % (35.4-49); HEMOGLOBIN 7.8 GM/dL (11.7-16.9); MCH 21.9 pg (25.7-33.7); MCHC 31.4 g/dl (32.0-35.9); MEAN CELL VOLUME 69.6 fl (80-96); MEAN PLT VOLUME 10.3 fl (7.5-11.1); MONO % 7.5 % (3.8-10.2); NEUT % 86.3 % (42.8-82.8); PLATELET COUNT 269 K/MM3 (134-434); RBC 3.57 M/mm3 (4.00-5.60); RDW 25.1 % (11.9-15.9)
[2018-08-07 20:31] LABS: PLATELET ESTIMATE ADEQUATE
--- NOTE | 2018-08-07 21:21 | EKG ---
Test Reason : Blood Pressure : / mmHG Vent. Rate : 107 BPM Atrial Rate : 107 BPM P-R Int : 204 ms QRS Dur : 100 ms QT Int : 326 ms P-R-T Axes : 082 -46 076 degrees QTc Int : 435 ms SINUS TACHYCARDIA WITH WITH SINUS ARRHYTHMIA LEFT AXIS DEVIATION SEPTAL INFARCT , AGE UNDETERMINED ABNORMAL ECG WHEN COMPARED WITH ECG OF 06-AUG-2018 09:31, SEPTAL INFARCT IS NOW PRESENT Confirmed by GERMAN LYNCH, ESTHER ([id number]) on 08/07/2018 9:21:07 PM Referred By: Confirmed By:ESTHER PORTER MD
--- NOTE | 2018-08-07 21:48 | PN ---
Progress Note (short form) - Note Progress Note: Patient seen and examined Tired,febrile VSS Cor: RSR, No murmurs, No gallops Lungs:decreased at bases Abd: Soft, Normal bowel sounds, No organomegaly Ext:No significant edema Labs/Meds reviewed A/P 78 year old male, with a significant past medical history of diabetes, hypertension, metastatic bladder cancer (last chemo Jun 22 2018), thoracic aortic aneurysm, and cirrhosis, who presents to the emergency department with weakness, fever, fatigue, near syncope and diarrhea. ? 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
--- NOTE | 2018-08-07 23:07 | PN ---
Progress Note, Physician History of Present Illness: No new complaints - Current Medication List Current Medications: Active Medications Acetaminophen (Tylenol -) 650 mg PO Q6H PRN PRN Reason: FEVER Last Admin: 08/07/18 15:43 Dose: 650 mg Docusate Sodium (Colace -) 100 mg PO TID [facility] Last Admin: 08/07/18 21:43 Dose: Not Given Finasteride (Proscar -) 5 mg PO DAILY [facility] Last Admin: 08/07/18 11:27 Dose: 5 mg Heparin Sodium (Porcine) (Heparin -) 5,000 unit SQ BID [facility] Last Admin: 08/07/18 21:42 Dose: 5,000 unit Sodium Chloride (Normal Saline -) 1,000 mls @ 83 mls/hr IV ASDIR [facility] Last Admin: 08/07/18 21:44 Dose: 83 mls/hr Linezolid (Zyvox 600 Mg Premix Bag (Restricted To Id) -) 600 mg in 300 mls @ 300 mls/hr IVPB BID [facility]; Protocol Last Admin: 08/07/18 21:42 Dose: 300 mls/hr Insulin Aspart (Novolog Vial Sliding Scale -) 1 vial SQ ACHS [facility]; Protocol Last Admin: 08/07/18 21:43 Dose: 2 unit Metformin HCl (Glucophage -) 1,000 mg PO BID@0700,1630 [facility] Last Admin: 08/07/18 17:29 Dose: 1,000 mg Metoprolol Succinate (Toprol Xl -) 100 mg PO DAILY [facility] Last Admin: 08/07/18 11:27 Dose: 100 mg Multivitamins/Minerals/Vitamin C (Tab-A-Vit -) 1 tab PO DAILY [facility] Last Admin: 08/07/18 11:27 Dose: 1 tab Nifedipine (Procardia Xl -) 30 mg PO DAILY [facility] Last Admin: 08/07/18 11:27 Dose: 30 mg Tamsulosin HCl (Flomax -) 0.4 mg PO DAILY@0830 [facility] Last Admin: 08/07/18 11:27 Dose: 0.4 mg Zolpidem Tartrate (Ambien -) 5 mg PO HS PRN PRN Reason: INSOMNIA Last Admin: 08/06/18 23:14 Dose: 5 mg - Objective Vital Signs: Vital Signs Temperature 98.9 F 08/07/18 19:00 Pulse Rate 110 H 08/07/18 16:50 Respiratory Rate 20 08/07/18 16:50 Blood Pressure 120/76 08/07/18 16:50 O2 Sat by Pulse Oximetry (%) 95 08/07/18 09:00 Neck: Yes: WNL, Supple Cardiovascular: Yes: WNL, Regular Rate and Rhythm Respiratory: Yes: WNL, Regular, CTA Bilaterally Gastrointestinal: Yes: WNL, Normal Bowel Sounds, Soft Labs: CBC, BMP 08/07/18 17:45 08/07/18 06:30 INR, PTT INR 1.47 (0.83-1.09) H 08/04/18 18:01 Problem List - Problems (1) Sepsis Assessment/Plan: Cont IV antibxs WBC increased Monitor cultures Code(s): A41.9 - SEPSIS, UNSPECIFIED ORGANISM Qualifiers: Sepsis type: sepsis due to unspecified organism Qualified Code(s): A41.9 - Sepsis, unspecified organism (2) 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 Assessment/Plan: As per onco Code(s): C79.9 - SECONDARY MALIGNANT NEOPLASM OF UNSPECIFIED SITE; C67.9 - MALIGNANT NEOPLASM OF BLADDER, UNSPECIFIED (3) Anemia Assessment/Plan: Transfused 1 unit PRBC's Monitor H/H Code(s): D64.9 - ANEMIA, UNSPECIFIED Qualifiers: Anemia type: due to chronic kidney disease Chronic kidney disease stage: stage 3 (moderate) Qualified Code(s): N18.3 - Chronic kidney disease, stage 3 (moderate); D63.1 - Anemia in chronic kidney disease (4) Diabetes Code(s): E11.9 - TYPE 2 DIABETES MELLITUS WITHOUT COMPLICATIONS (5) HLD (hyperlipidemia) Code(s): E78.5 - HYPERLIPIDEMIA, UNSPECIFIED (6) Hypertension Code(s): I10 - ESSENTIAL (PRIMARY) HYPERTENSION Qualifiers: Hypertension type: other secondary hypertension Qualified Code(s): I15.8 - Other secondary hypertension
[2018-08-08] MEDS: ZOLPIDEM TARTRATE 5 MG TABLET PO PRN ×2 (00:14→22:47)
[2018-08-08] MEDS: ACETAMINOPHEN 325 MG TABLET (FP) PO PRN (01:55)
[2018-08-08 06:06] LABS: BASO % 0.2 % (0-2.0); EOS % 0.1 % (0-4.5); HEMATOCRIT 22.6 % (35.4-49); HEMOGLOBIN 7.2 GM/dL (11.7-16.9); LYMPH % 12.5 % (8-40); MCH 21.7 pg (25.7-33.7); MCHC 31.8 g/dl (32.0-35.9); MEAN CELL VOLUME 68.3 fl (80-96); MEAN PLT VOLUME 10.3 fl (7.5-11.1); MONO % 7.6 % (3.8-10.2); NEUT % 79.6 % (42.8-82.8); PLATELET COUNT 193 K/MM3 (134-434); RBC 3.31 M/mm3 (4.00-5.60)
[2018-08-08] MEDS: DOCUSATE SODIUM 100 MG CAPSULE (FP) PO SCH ×4 (06:09→21:32)
[2018-08-08] MEDS: metFORMIN HCL 500 MG TABLET (FP) PO SCH ×2 (06:09→17:13)
[2018-08-08] MEDS: INSULIN SLIDING SCALE (NOVOLOG) 1 VIAL SQ SCH ×4 (06:09→21:44)
[2018-08-08 07:33] LABS: ALBUMIN 1.9 g/dl (3.4-5.0); ALK PHOS 394 U/L (45-117); ANION GAP 11 MMOL/L (8-16); BILIRUBIN,TOTAL 1.8 mg/dL (0.2-1); BLOOD UREA NITROGEN 13 mg/dL (7-18); CALCIUM 7.7 mg/dL (8.5-10.1); CHLORIDE 103 mmol/L (98-107); CO2 21 mmol/L (21-32); CREATININE 0.5 mg/dL (0.55-1.3); GLUCOSE,RANDOM 116 mg/dL (74-106); POTASSIUM 3.4 mmol/L (3.5-5.1); SGOT/AST 28 U/L (15-37); SGPT/ALT 21 U/L (13-61); SODIUM 135 mmol/L (136-145); TOT PROT 5.7 g/dl (6.4-8.2)
--- NOTE | 2018-08-08 09:01 | CON.CARD ---
Cardiology Consult (text) - Consultation Consultation Note: Cardiology Consult Dictated IMP: Sinus tachycardia secondary to probable urosepsis, chronic anemia, volume depletion Metastatic bladder CA Mild thoracic aortic aneurysm- 4.2 cm REC: Supportive Rx: 1. Abx 2. IV fluids 3. Transfusion support as needed 4. DVT prophylaxis. LV fxn normal on recent outpt echo. Will follow. Thank you.
--- NOTE | 2018-08-08 09:44 | CONS ---
CARDIOLOGY CONSULTATION DATE OF CONSULTATION: DATE OF DICTATION: 08/08/2018 REQUESTING PHYSICIAN: Aslhyn Andrade MD REASON FOR CONSULTATION: Tachycardia. The patient is a 78-year-old male with a past medical history of metastatic bladder cancer, mildly dilated ascending aorta, 4.2 cm, who was admitted on August 04, through the emergency department for weakness, fever, fatigue, and diarrhea. He was found to be febrile with a positive urine culture for enterococcus. Blood cultures are currently negative. He was started on linezolid by Infectious Disease, and I was asked to see him for intermittent sinus tachycardia ranging between 100 and 110 beats per minute. On exam, he is alert and oriented. Denies chest pain, shortness of breath, palpitations, PND, orthopnea, syncope, or near syncope. He had been feeling extremely weak with fever and occasional diarrhea as well. He is also being evaluated for possible C. difficile. PAST MEDICAL HISTORY: As above and also includes BPH, diabetes, metastatic bladder cancer, thalassemia, and cirrhosis. Of note, the patient had nephrostomy tubes removed recently. SURGICAL HISTORY: Cystoscopies and ureteral stent placements, TURP July 07, 2018. ALLERGIES: None. CURRENT MEDICATIONS: Acetaminophen 650 p.o. q.6 p.r.n., docusate 100 mg p.o. t.i.d., subcutaneous heparin 5000 units subcutaneous b.i.d., NovoLog sliding scale, linezolid, metformin 1000 p.o. b.i.d., metoprolol succinate 100 p.o. daily, multivitamin, Nifedipine XL 30 mg p.o. daily, tamsulosin 0.4 mg p.o. daily, and Ambien 5 mg p.o. nightly p.r.n. FAMILY HISTORY: Noncontributory. SOCIAL HISTORY: Denies history of smoking. PHYSICAL EXAMINATION: General: Alert, oriented. No distress. HEENT: Anicteric. The oropharynx is dry. Vital Signs: Temperature 98.9, T-max 102.4. Blood pressure 135/74, O2 saturation 95 on room air. Neck: No carotid bruits. No elevation of the jugular venous pressure. Heart: S1, S2. Regular. No murmurs. Chest: Clear bilaterally. No wheezing. Abdomen: Soft, nontender. Extremities: No edema. Genitourinary: There is a Galarza catheter draining dark urine. ECG: Sinus tachycardia, 107 beats per minute with first-degree AV block, APCs; cannot rule out old septal SC. LABORATORY DATA: White count 12, hemoglobin 7.2, hematocrit 22.6, platelets 193. INR 1.47. Sodium 135, potassium 3.4, BUN 13, creatinine 0.5. AST and ALT normal. Stool for blood was negative. Cultures positive thus far for VRE 40,000 CFU on August 07. Chest x-ray: No acute infiltrates. Renal ultrasound: Moderate bilateral hydronephrosis, bilateral J ureteral stents, thickened urinary bladder, normal prostate, minimal ascites. IMPRESSION: 1. Sinus tachycardia secondary to probable urosepsis, chronic anemia, and volume depletion. 2. Metastatic bladder cancer. 3. Mildly dilated thoracic aorta. RECOMMENDATIONS: Supportive care includin. Antibiotics as per ID. 2. IV fluids. 3. Transfusional support as needed. 4. DVT prophylaxis. Recent outpatient echocardiogram showed normal LV function. Will follow. Thank you. NARCISO RUTLEDGE M.D. [id number]
[2018-08-08] MEDS: SODIUM CHLORIDE 1,000 ML IV SCH ×2 (10:44→21:44)
[2018-08-08] MEDS: MULTIVITAMINS (DAILY MVI) TABLET (FP) PO SCH (10:45)
[2018-08-08] MEDS: NIFEdipine E.R. 30 MG TABLET (FP) PO SCH (10:45)
[2018-08-08] MEDS: HEPARIN NA (PORCINE) 5,000 UNITS/ML 1ML VIAL SQ SCH ×2 (10:45→21:23)
[2018-08-08] MEDS: FINASTERIDE 5 MG TABLET (FP) PO SCH (10:45)
[2018-08-08] MEDS: LINEZOLID 600 MG PREMIX BAG 600 MG/300 ML BAG IVPB SCH ×2 (10:45→21:29)
[2018-08-08] MEDS: TAMSULOSIN HCL 0.4 MG CAP PO SCH (10:45)
[2018-08-08 11:01] LABS: ANISOCYTOSIS 3+; MACROCYTOSIS 0; OVALOCYTE 1+; PLATELET ESTIMATE NORMAL; TEAR DROP CELLS 1+
[2018-08-08] MEDS ORDERED: INSULIN (NOVOLOG) ASPART 100 UNITS/ML 10ML VIAL ONE (12:08)
--- NOTE | 2018-08-08 13:01 | PN ---
Progress Note, Physician History of Present Illness: patient stable foleys in place - Current Medication List Current Medications: Active Medications Acetaminophen (Tylenol -) 650 mg PO Q6H PRN PRN Reason: FEVER Last Admin: 08/08/18 01:55 Dose: 650 mg Docusate Sodium (Colace -) 100 mg PO TID [facility] Last Admin: 08/08/18 06:12 Dose: Not Given Finasteride (Proscar -) 5 mg PO DAILY [facility] Last Admin: 08/08/18 10:45 Dose: 5 mg Heparin Sodium (Porcine) (Heparin -) 5,000 unit SQ BID [facility] Last Admin: 08/08/18 10:45 Dose: 5,000 unit Sodium Chloride (Normal Saline -) 1,000 mls @ 83 mls/hr IV ASDIR [facility] Last Admin: 08/08/18 10:44 Dose: 83 mls/hr Linezolid (Zyvox 600 Mg Premix Bag (Restricted To Id) -) 600 mg in 300 mls @ 300 mls/hr IVPB BID [facility]; Protocol Last Admin: 08/08/18 10:45 Dose: 300 mls/hr Insulin Aspart (Novolog Vial Sliding Scale -) 1 vial SQ ACHS [facility]; Protocol Last Admin: 08/08/18 12:16 Dose: 2 unit Metformin HCl (Glucophage -) 1,000 mg PO BID@0700,1630 [facility] Last Admin: 08/08/18 06:09 Dose: 1,000 mg Metoprolol Succinate (Toprol Xl -) 100 mg PO DAILY [facility] Last Admin: 08/08/18 10:45 Dose: 100 mg Multivitamins/Minerals/Vitamin C (Tab-A-Vit -) 1 tab PO DAILY [facility] Last Admin: 08/08/18 10:45 Dose: 1 tab Nifedipine (Procardia Xl -) 30 mg PO DAILY [facility] Last Admin: 08/08/18 10:45 Dose: 30 mg Tamsulosin HCl (Flomax -) 0.4 mg PO DAILY@0830 [facility] Last Admin: 08/08/18 10:45 Dose: 0.4 mg Zolpidem Tartrate (Ambien -) 5 mg PO HS PRN PRN Reason: INSOMNIA Last Admin: 08/08/18 00:14 Dose: 5 mg - Objective Vital Signs: Vital Signs Temperature 99 F 08/08/18 11:22 Pulse Rate 115 H 08/08/18 11:22 Respiratory Rate 20 08/08/18 11:22 Blood Pressure 121/66 08/08/18 11:22 O2 Sat by Pulse Oximetry (%) 95 08/07/18 21:00 Constitutional: Yes: No Distress, Calm Cardiovascular: Yes: Regular Rate and Rhythm Respiratory: Yes: Regular, CTA Bilaterally Gastrointestinal: Yes: Normal Bowel Sounds, Soft Genitourinary: Yes: Galarza Present Neurological: Yes: Alert, Oriented Psychiatric: Yes: Alert, Oriented Labs: CBC, BMP 08/08/18 05:30 08/08/18 05:30 INR, PTT INR 1.47 (0.83-1.09) H 08/04/18 18:01 Assessment/Plan sepsis fever uti weakness ca bladder wbc trending down remaining afebrile once wbc normalizes will stop abx rest continue current mgmt
--- NOTE | 2018-08-08 14:35 | PN ---
Progress Note (short form) - Note Progress Note: Patient seen and examined at bedside Tired,febrile VSS Cor: RSR, No murmurs, No gallops Lungs:decreased at bases Abd: Soft, Normal bowel sounds, No organomegaly Ext:No significant edema Labs/Meds reviewed A/P 78 year old male, with a significant past medical history of diabetes, hypertension, metastatic bladder cancer (last chemo Jun 22 2018), thoracic aortic aneurysm, and cirrhosis, who presents to the emergency department with weakness, fever, fatigue, near syncope and diarrhea. ? 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
--- NOTE | 2018-08-08 16:04 | PN ---
Progress Note (short form) - Note Progress Note: Urology follow up. Pt. is comfortable, has rahman catheter inserted last night. Will follow as necessary.
--- NOTE | 2018-08-08 19:06 | PN ---
Progress Note, Physician History of Present Illness: No new complaints - Current Medication List Current Medications: Active Medications Acetaminophen (Tylenol -) 650 mg PO Q6H PRN PRN Reason: FEVER Last Admin: 08/08/18 01:55 Dose: 650 mg Docusate Sodium (Colace -) 100 mg PO TID [facility] Last Admin: 08/08/18 14:55 Dose: 100 mg Finasteride (Proscar -) 5 mg PO DAILY [facility] Last Admin: 08/08/18 10:45 Dose: 5 mg Heparin Sodium (Porcine) (Heparin -) 5,000 unit SQ BID [facility] Last Admin: 08/08/18 10:45 Dose: 5,000 unit Sodium Chloride (Normal Saline -) 1,000 mls @ 83 mls/hr IV ASDIR [facility] Last Admin: 08/08/18 10:44 Dose: 83 mls/hr Linezolid (Zyvox 600 Mg Premix Bag (Restricted To Id) -) 600 mg in 300 mls @ 300 mls/hr IVPB BID [facility]; Protocol Last Admin: 08/08/18 10:45 Dose: 300 mls/hr Insulin Aspart (Novolog Vial Sliding Scale -) 1 vial SQ ACHS [facility]; Protocol Last Admin: 08/08/18 17:14 Dose: Not Given Metformin HCl (Glucophage -) 1,000 mg PO BID@0700,1630 [facility] Last Admin: 08/08/18 17:13 Dose: 1,000 mg Metoprolol Succinate (Toprol Xl -) 100 mg PO DAILY [facility] Last Admin: 08/08/18 10:45 Dose: 100 mg Multivitamins/Minerals/Vitamin C (Tab-A-Vit -) 1 tab PO DAILY [facility] Last Admin: 08/08/18 10:45 Dose: 1 tab Nifedipine (Procardia Xl -) 30 mg PO DAILY [facility] Last Admin: 08/08/18 10:45 Dose: 30 mg Tamsulosin HCl (Flomax -) 0.4 mg PO DAILY@0830 [facility] Last Admin: 08/08/18 10:45 Dose: 0.4 mg Zolpidem Tartrate (Ambien -) 5 mg PO HS PRN PRN Reason: INSOMNIA Last Admin: 08/08/18 00:14 Dose: 5 mg - Objective Vital Signs: Vital Signs Temperature 98.6 F 08/08/18 15:23 Pulse Rate 108 H 08/08/18 15:23 Respiratory Rate 18 08/08/18 15:23 Blood Pressure 113/68 08/08/18 15:23 O2 Sat by Pulse Oximetry (%) 95 08/08/18 10:40 Neck: Yes: WNL, Supple Cardiovascular: Yes: WNL, Regular Rate and Rhythm Respiratory: Yes: WNL, Regular, CTA Bilaterally Gastrointestinal: Yes: WNL, Normal Bowel Sounds, Soft Labs: CBC, BMP 08/08/18 05:30 08/08/18 05:30 INR, PTT INR 1.47 (0.83-1.09) H 08/04/18 18:01 Problem List - Problems (1) Sepsis Assessment/Plan: Cont IV zyvox Urine culture (+) for VRE faecium Blood cultures remain negative Code(s): A41.9 - SEPSIS, UNSPECIFIED ORGANISM Qualifiers: Sepsis type: sepsis due to unspecified organism Qualified Code(s): A41.9 - Sepsis, unspecified organism (2) 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 Assessment/Plan: As per onco Code(s): C79.9 - SECONDARY MALIGNANT NEOPLASM OF UNSPECIFIED SITE; C67.9 - MALIGNANT NEOPLASM OF BLADDER, UNSPECIFIED (3) Anemia Assessment/Plan: Monitor H/H S/P transfusion PRBC's Code(s): D64.9 - ANEMIA, UNSPECIFIED Qualifiers: Anemia type: due to chronic kidney disease Chronic kidney disease stage: stage 3 (moderate) Qualified Code(s): N18.3 - Chronic kidney disease, stage 3 (moderate); D63.1 - Anemia in chronic kidney disease (4) Diabetes Assessment/Plan: Cont metformin/sliding scale w/ coverage Code(s): E11.9 - TYPE 2 DIABETES MELLITUS WITHOUT COMPLICATIONS (5) Hypertension Assessment/Plan: Cont metoprolol/nifedipine Code(s): I10 - ESSENTIAL (PRIMARY) HYPERTENSION Qualifiers: Hypertension type: other secondary hypertension Qualified Code(s): I15.8 - Other secondary hypertension (6) HLD (hyperlipidemia) Code(s): E78.5 - HYPERLIPIDEMIA, UNSPECIFIED
[2018-08-09] MEDS: SODIUM CHLORIDE 1,000 ML IV SCH ×3 (03:41→17:22)
[2018-08-09] MEDS: metFORMIN HCL 500 MG TABLET (FP) PO SCH ×2 (06:17→17:22)
[2018-08-09] MEDS: DOCUSATE SODIUM 100 MG CAPSULE (FP) PO SCH ×3 (06:18→21:16)
[2018-08-09] MEDS: INSULIN SLIDING SCALE (NOVOLOG) 1 VIAL SQ SCH ×4 (06:18→21:16)
[2018-08-09] MEDS: TAMSULOSIN HCL 0.4 MG CAP PO SCH (10:22)
[2018-08-09] MEDS: NIFEdipine E.R. 30 MG TABLET (FP) PO SCH (10:56)
[2018-08-09] MEDS: HEPARIN NA (PORCINE) 5,000 UNITS/ML 1ML VIAL SQ SCH ×2 (10:56→21:13)
[2018-08-09] MEDS: FINASTERIDE 5 MG TABLET (FP) PO SCH (10:56)
[2018-08-09] MEDS: MULTIVITAMINS (DAILY MVI) TABLET (FP) PO SCH (10:56)
[2018-08-09] MEDS: LINEZOLID 600 MG PREMIX BAG 600 MG/300 ML BAG IVPB SCH ×2 (10:57→21:15)
[2018-08-09] MEDS ORDERED: INSULIN (NOVOLOG) ASPART 100 UNITS/ML 10ML VIAL ONE ×3 (11:43→17:29)
--- NOTE | 2018-08-09 11:56 | PN ---
Progress Note, Physician History of Present Illness: patient stable no new issues - Current Medication List Current Medications: Active Medications Acetaminophen (Tylenol -) 650 mg PO Q6H PRN PRN Reason: FEVER Last Admin: 08/08/18 01:55 Dose: 650 mg Docusate Sodium (Colace -) 100 mg PO TID [facility] Last Admin: 08/09/18 06:18 Dose: Not Given Finasteride (Proscar -) 5 mg PO DAILY [facility] Last Admin: 08/09/18 10:56 Dose: 5 mg Heparin Sodium (Porcine) (Heparin -) 5,000 unit SQ BID [facility] Last Admin: 08/09/18 10:56 Dose: 5,000 unit Sodium Chloride (Normal Saline -) 1,000 mls @ 83 mls/hr IV ASDIR [facility] Last Admin: 08/09/18 03:41 Dose: 83 mls/hr Linezolid (Zyvox 600 Mg Premix Bag (Restricted To Id) -) 600 mg in 300 mls @ 300 mls/hr IVPB BID [facility]; Protocol Last Admin: 08/09/18 10:57 Dose: 300 mls/hr Insulin Aspart (Novolog Vial Sliding Scale -) 1 vial SQ ACHS [facility]; Protocol Last Admin: 08/09/18 11:50 Dose: 2 unit Metformin HCl (Glucophage -) 1,000 mg PO BID@0700,1630 [facility] Last Admin: 08/09/18 06:17 Dose: 1,000 mg Metoprolol Succinate (Toprol Xl -) 100 mg PO DAILY [facility] Last Admin: 08/09/18 10:57 Dose: 100 mg Multivitamins/Minerals/Vitamin C (Tab-A-Vit -) 1 tab PO DAILY [facility] Last Admin: 08/09/18 10:56 Dose: 1 tab Nifedipine (Procardia Xl -) 30 mg PO DAILY [facility] Last Admin: 08/09/18 10:56 Dose: 30 mg Tamsulosin HCl (Flomax -) 0.4 mg PO DAILY@0830 [facility] Last Admin: 08/09/18 10:22 Dose: 0.4 mg Zolpidem Tartrate (Ambien -) 5 mg PO HS PRN PRN Reason: INSOMNIA Last Admin: 08/08/18 22:47 Dose: 5 mg - Objective Vital Signs: Vital Signs Temperature 98 F 08/09/18 10:02 Pulse Rate 102 H 08/09/18 10:02 Respiratory Rate 20 08/09/18 10:02 Blood Pressure 126/64 08/09/18 10:02 O2 Sat by Pulse Oximetry (%) 95 08/08/18 21:00 Constitutional: Yes: No Distress, Calm Cardiovascular: Yes: Regular Rate and Rhythm Respiratory: Yes: Regular, CTA Bilaterally Gastrointestinal: Yes: Normal Bowel Sounds, Soft Genitourinary: Yes: Galarza Present Musculoskeletal: Yes: WNL Extremities: Yes: WNL Neurological: Yes: Alert, Oriented Psychiatric: Yes: Alert, Oriented Labs: CBC, BMP 08/08/18 05:30 08/08/18 05:30 INR, PTT INR 1.47 (0.83-1.09) H 08/04/18 18:01 Assessment/Plan sepsis fever uti weakness ca bladder plan continue abx await for wbc rest as per the team await for urology plan
--- NOTE | 2018-08-09 15:48 | PN ---
Progress Note (short form) - Note Progress Note: Renal follow up Pt seen and examined at the bedside no complaints Vital Signs Temperature 98.1 F 08/09/18 15:29 Pulse Rate 90 08/09/18 15:29 Respiratory Rate 18 08/09/18 15:29 Blood Pressure 127/58 L 08/09/18 15:29 O2 Sat by Pulse Oximetry (%) 95 08/08/18 21:00 Intake & Output 08/06/18 08/07/18 08/08/18 08/09/18 23:59 23:59 23:59 23:59 Intake Total 7244 2400 3130 1646 Output Total 4000 800 Balance 7244 2400 -870 846 Weight 73.028 kg NAD RRR, No m/r CTA soft nT/nd no LE edema, clubbing or cyanosis no bladder distension CBC, BMP 08/08/18 05:30 08/08/18 05:30 Current Medications Acetaminophen (Tylenol -) 650 mg PO Q6H PRN PRN Reason: FEVER Last Admin: 08/08/18 01:55 Dose: 650 mg Docusate Sodium (Colace -) 100 mg PO TID [facility] Last Admin: 08/09/18 15:37 Dose: Not Given Finasteride (Proscar -) 5 mg PO DAILY [facility] Last Admin: 08/09/18 10:56 Dose: 5 mg Heparin Sodium (Porcine) (Heparin -) 5,000 unit SQ BID [facility] Last Admin: 08/09/18 10:56 Dose: 5,000 unit Sodium Chloride (Normal Saline -) 1,000 mls @ 83 mls/hr IV ASDIR [facility] Last Admin: 08/09/18 15:37 Dose: Not Given Linezolid (Zyvox 600 Mg Premix Bag (Restricted To Id) -) 600 mg in 300 mls @ 300 mls/hr IVPB BID [facility]; Protocol Last Admin: 08/09/18 10:57 Dose: 300 mls/hr Insulin Aspart (Novolog Vial Sliding Scale -) 1 vial SQ ACHS [facility]; Protocol Last Admin: 08/09/18 11:50 Dose: 2 unit Metformin HCl (Glucophage -) 1,000 mg PO BID@0700,1630 [facility] Last Admin: 08/09/18 06:17 Dose: 1,000 mg Metoprolol Succinate (Toprol Xl -) 100 mg PO DAILY [facility] Last Admin: 08/09/18 10:57 Dose: 100 mg Multivitamins/Minerals/Vitamin C (Tab-A-Vit -) 1 tab PO DAILY [facility] Last Admin: 08/09/18 10:56 Dose: 1 tab Nifedipine (Procardia Xl -) 30 mg PO DAILY [facility] Last Admin: 08/09/18 10:56 Dose: 30 mg Tamsulosin HCl (Flomax -) 0.4 mg PO DAILY@0830 [facility] Last Admin: 08/09/18 10:22 Dose: 0.4 mg Zolpidem Tartrate (Ambien -) 5 mg PO HS PRN PRN Reason: INSOMNIA Last Admin: 08/08/18 22:47 Dose: 5 mg 78 year old gentleman with history of bladder cancer, hypertension, DM, TAA, cirrhosis with recent admission with KARTHIKEYAN from b/l hydronephrosis presents with fever and found to have sepsis syndrome #Sepsis r/o UTI/Pylonephritis #Hx of Hydronephrosis and KARTHIKEYAN now with normal renal function #Hypertension Renal function stable urology follow up continue Abx supportive care Shalom Alarcon Do
[2018-08-09] MEDS ORDERED: PT OWN MED DRAWER 7, Y5N ONE ×2 (17:08→21:04)
--- NOTE | 2018-08-09 17:38 | PN ---
Progress Note (short form) - Note Progress Note: patient seen and examined at bedside with present endorses weakness and poor oral intake sat up in chair today Patient and frustrated about his recurrent infections and "setbacks" in chemotherapy Vital Signs Temperature 98.1 F 08/09/18 15:29 Pulse Rate 90 08/09/18 15:29 Respiratory Rate 18 08/09/18 15:29 Blood Pressure 127/58 L 08/09/18 15:29 O2 Sat by Pulse Oximetry (%) 95 08/08/18 21:00 NAD lying in bed RRR S1 S2 CTAB Soft non tender Galarza in place 08/07/18 06:20 Blood Culture - Preliminary Blood - Peripheral Venous NO GROWTH OBTAINED AFTER 48 HOURS, INCUBATION TO CONTINUE FOR 3 DAYS. 08/07/18 06:20 Blood Culture - Preliminary Blood - Peripheral Venous NO GROWTH OBTAINED AFTER 48 HOURS, INCUBATION TO CONTINUE FOR 3 DAYS. 08/04/18 18:01 Blood Culture - Preliminary Blood - Peripheral Venous NO GROWTH OBTAINED AFTER 96 HOURS, INCUBATION TO CONTINUE FOR 1 DAYS. 08/04/18 18:01 Blood Culture - Preliminary Blood - Peripheral Venous NO GROWTH OBTAINED AFTER 96 HOURS, INCUBATION TO CONTINUE FOR 1 DAYS. 08/07/18 21:30 Clostridium difficile Antigen (OK) - Final Stool Clostridium difficile Toxin Assay - Final 08/04/18 18:41 Urine Culture - Final Urine - Urine Clean Catch Vr Ec Faecium 08/04/18 18:01 Clostridium difficile Antigen (OK) - Final Stool Clostridium difficile Toxin Assay - Final No Labs today Problem List: Metastatic bladder Ca Sepsis secondary to UTI vs pyelonephritis HTN BPH DM Plan: Patient needs to have sepsis resolved and needs better performance status before restarting chemotherapy PT consult ordered OOB to chair as tolerated UCx with VRE continue linezolid per ID Check CBC in AM and transfuse if Hb <7 will follow
--- NOTE | 2018-08-09 17:43 | PN ---
Teaching Attending Note Name of Resident: Karthikeyan Agustin ATTENDING PHYSICIAN STATEMENT I saw and evaluated the patient. I reviewed the resident's note and discussed the case with the resident. I agree with the resident's findings and plan as documented. SUBJECTIVE:Patient seen and examined Frustrated with ongoing infections. On antibiotics per ID Significant anemia - multifactorial- chronic disease, prior chemotherapy , renal disease, blood letting etc. Will check Hct in AM May need additional transfusion therapy Ultimately, therapy for bladder ca after improvement clinically, and clearance of infection. Needs aggressive PT OBJECTIVE: ASSESSMENT AND PLAN:
[2018-08-09] MEDS: ZOLPIDEM TARTRATE 5 MG TABLET PO PRN (21:18)
--- NOTE | 2018-08-09 21:54 | PN ---
Progress Note, Physician History of Present Illness: Pt feeling weak - Current Medication List Current Medications: Active Medications Acetaminophen (Tylenol -) 650 mg PO Q6H PRN PRN Reason: FEVER Last Admin: 08/08/18 01:55 Dose: 650 mg Docusate Sodium (Colace -) 100 mg PO TID [facility] Last Admin: 08/09/18 21:16 Dose: Not Given Finasteride (Proscar -) 5 mg PO DAILY [facility] Last Admin: 08/09/18 10:56 Dose: 5 mg Heparin Sodium (Porcine) (Heparin -) 5,000 unit SQ BID [facility] Last Admin: 08/09/18 21:13 Dose: 5,000 unit Sodium Chloride (Normal Saline -) 1,000 mls @ 83 mls/hr IV ASDIR [facility] Last Admin: 08/09/18 17:22 Dose: 83 mls/hr Linezolid (Zyvox 600 Mg Premix Bag (Restricted To Id) -) 600 mg in 300 mls @ 300 mls/hr IVPB BID [facility]; Protocol Last Admin: 08/09/18 21:15 Dose: 300 mls/hr Insulin Aspart (Novolog Vial Sliding Scale -) 1 vial SQ ACHS [facility]; Protocol Last Admin: 08/09/18 21:16 Dose: Not Given Metformin HCl (Glucophage -) 1,000 mg PO BID@0700,1630 [facility] Last Admin: 08/09/18 17:22 Dose: 1,000 mg Metoprolol Succinate (Toprol Xl -) 100 mg PO DAILY [facility] Last Admin: 08/09/18 10:57 Dose: 100 mg Multivitamins/Minerals/Vitamin C (Tab-A-Vit -) 1 tab PO DAILY [facility] Last Admin: 08/09/18 10:56 Dose: 1 tab Nifedipine (Procardia Xl -) 30 mg PO DAILY [facility] Last Admin: 08/09/18 10:56 Dose: 30 mg Tamsulosin HCl (Flomax -) 0.4 mg PO DAILY@0830 [facility] Last Admin: 08/09/18 10:22 Dose: 0.4 mg Zolpidem Tartrate (Ambien -) 5 mg PO HS PRN PRN Reason: INSOMNIA Last Admin: 08/09/18 21:18 Dose: 5 mg - Objective Vital Signs: Vital Signs Temperature 99.0 F 08/09/18 19:40 Pulse Rate 107 H 08/09/18 19:40 Respiratory Rate 22 H 08/09/18 19:40 Blood Pressure 101/70 08/09/18 19:40 O2 Sat by Pulse Oximetry (%) 95 08/08/18 21:00 Neck: Yes: WNL, Supple Cardiovascular: Yes: WNL, Regular Rate and Rhythm Respiratory: Yes: WNL, Regular, CTA Bilaterally Gastrointestinal: Yes: WNL, Normal Bowel Sounds, Soft Labs: CBC, BMP 08/08/18 05:30 08/08/18 05:30 INR, PTT INR 1.47 (0.83-1.09) H 08/04/18 18:01 Problem List - Problems (1) Sepsis Assessment/Plan: Cont IV zyvox Urine culture (+) for VRE faecium Blood cultures remain negative Code(s): A41.9 - SEPSIS, UNSPECIFIED ORGANISM Qualifiers: Sepsis type: sepsis due to unspecified organism Qualified Code(s): A41.9 - Sepsis, unspecified organism (2) 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 Assessment/Plan: As per onco Code(s): C79.9 - SECONDARY MALIGNANT NEOPLASM OF UNSPECIFIED SITE; C67.9 - MALIGNANT NEOPLASM OF BLADDER, UNSPECIFIED (3) Anemia Assessment/Plan: Monitor H/H S/P transfusion PRBC's Code(s): D64.9 - ANEMIA, UNSPECIFIED Qualifiers: Anemia type: due to chronic kidney disease Chronic kidney disease stage: stage 3 (moderate) Qualified Code(s): N18.3 - Chronic kidney disease, stage 3 (moderate); D63.1 - Anemia in chronic kidney disease (4) Diabetes Assessment/Plan: Cont metformin/sliding scale w/ coverage Code(s): E11.9 - TYPE 2 DIABETES MELLITUS WITHOUT COMPLICATIONS (5) Hypertension Assessment/Plan: Cont metoprolol/nifedipine Code(s): I10 - ESSENTIAL (PRIMARY) HYPERTENSION Qualifiers: Hypertension type: other secondary hypertension Qualified Code(s): I15.8 - Other secondary hypertension (6) BPH (benign prostatic hyperplasia) Assessment/Plan: Cont proscar/flomax Code(s): N40.0 - BENIGN PROSTATIC HYPERPLASIA WITHOUT LOWER URINRY TRACT SYMP (7) HLD (hyperlipidemia) Code(s): E78.5 - HYPERLIPIDEMIA, UNSPECIFIED
[2018-08-10] MEDS: SODIUM CHLORIDE 1,000 ML IV SCH ×2 (06:35→18:29)
[2018-08-10] MEDS: INSULIN SLIDING SCALE (NOVOLOG) 1 VIAL SQ SCH ×4 (06:38→22:11)
[2018-08-10] MEDS: metFORMIN HCL 500 MG TABLET (FP) PO SCH ×2 (06:38→18:28)
[2018-08-10] MEDS: DOCUSATE SODIUM 100 MG CAPSULE (FP) PO SCH ×3 (06:38→22:03)
[2018-08-10 07:18] LABS: BASO % 0.3 % (0-2.0); EOS % 0.4 % (0-4.5); HEMATOCRIT 22.3 % (35.4-49); HEMOGLOBIN 7.2 GM/dL (11.7-16.9); LYMPH % 9.3 % (8-40); MCH 21.8 pg (25.7-33.7); MCHC 32.3 g/dl (32.0-35.9); MEAN CELL VOLUME 67.4 fl (80-96); MONO % 8.1 % (3.8-10.2); NEUT % 81.9 % (42.8-82.8); PLATELET COUNT 188 K/MM3 (134-434); RBC 3.31 M/mm3 (4.00-5.60); RDW 26.1 % (11.9-15.9); WHITE BLOOD COUNT 9.8 K/mm3 (4.0-10.0)
[2018-08-10 07:32] LABS: ANION GAP 11 MMOL/L (8-16); BLOOD UREA NITROGEN 12 mg/dL (7-18); CALCIUM 7.2 mg/dL (8.5-10.1); CHLORIDE 105 mmol/L (98-107); CO2 21 mmol/L (21-32); CREATININE 0.4 mg/dL (0.55-1.3); GLUCOSE,RANDOM 118 mg/dL (74-106); POTASSIUM 3.2 mmol/L (3.5-5.1); SODIUM 137 mmol/L (136-145)
--- NOTE | 2018-08-10 10:19 | PN ---
Physical Exam: SUBJECTIVE: Patient seen and examined at the bedside. feels well, in no acute distress. wants to walk with physical therapy. denies any discomfort. OBJECTIVE: *coverage for dr. viera* hmg/hct 7.2/22.8, pepe monitor for now, asymptomatic repeat cbc in a.m., if further drops will transfuse rahman draining edson colored urine replete K. (3.2) Vital Signs Period Temp Pulse Resp BP Sys/Benjamin Pulse Ox Last 24 Hr 97.5 F-100.2 F 90-107 18-22 101-127/58-80 GENERAL: The patient is awake, alert, and fully oriented, in no acute distress. HEAD: Normal with no signs of trauma. EYES: PERRL, extraocular movements intact, sclera anicteric, conjunctiva clear. No ptosis. ENT: Ears normal, nares patent, oropharynx clear without exudates, moist mucous membranes. NECK: Trachea midline, full range of motion, supple. LUNGS: Breath sounds equal, clear to auscultation bilaterally, HEART: Regular rate and rhythm ABDOMEN: Soft, nontender, nondistended, normoactive bowel sounds, EXTREMITIES: no edema. NEUROLOGICAL: Normal speech, gait not observed. PSYCH: Normal mood, normal affect. SKIN: Warm, dry, normal turgor, no rashes or lesions noted Laboratory Results - last 24 hr 08/09/18 08/09/18 08/09/18 11:37 17:14 20:33 WBC RBC Hgb Hct MCV MCH MCHC RDW Plt Count MPV Absolute Neuts (auto) Neutrophils % Lymphocytes % Monocytes % Eosinophils % Basophils % Nucleated RBC % Sodium Potassium Chloride Carbon Dioxide Anion Gap BUN Creatinine Creat Clearance w eGFR POC Glucometer 191 160 115 Random Glucose Calcium 08/10/18 08/10/18 08/10/18 06:00 06:00 06:37 WBC 9.8 RBC 3.31 L Hgb 7.2 L Hct 22.3 L MCV 67.4 L MCH 21.8 L MCHC 32.3 RDW 26.1 H Plt Count 188 MPV 10.0 Absolute Neuts (auto) 8.0 Neutrophils % 81.9 Lymphocytes % 9.3 D Monocytes % 8.1 Eosinophils % 0.4 D Basophils % 0.3 Nucleated RBC % 0 Sodium 137 Potassium 3.2 L Chloride 105 Carbon Dioxide 21 Anion Gap 11 BUN 12 Creatinine 0.4 L Creat Clearance w eGFR > 60 POC Glucometer 132 Random Glucose 118 H Calcium 7.2 L Active Medications Generic Name Dose Route Start Last Admin Trade Name Adwoa PRN Reason Stop Dose Admin Acetaminophen 650 mg 08/05/18 03:11 08/08/18 01:55 Tylenol - PO 650 mg Q6H PRN Administration FEVER Docusate Sodium 100 mg 08/05/18 06:00 08/10/18 06:38 Colace - PO 100 mg TID LIT Administration Finasteride 5 mg 08/05/18 10:00 08/09/18 10:56 Proscar - PO 5 mg DAILY LIT Administration Heparin Sodium (Porcine) 5,000 unit 08/05/18 10:00 08/09/18 21:13 Heparin - SQ 5,000 unit BID LIT Administration Sodium Chloride 1,000 mls @ 83 mls/hr 08/05/18 12:15 08/10/18 06:35 Normal Saline - IV 83 mls/hr ASDIR LIT Administration Linezolid 600 mg in 300 mls @ 300 mls/hr 08/07/18 11:00 08/09/18 21:15 Zyvox 600 Mg Premix Bag (Restricted To Id) - IVPB 300 mls/hr BID LIT Administration Protocol Insulin Aspart 1 vial 08/05/18 07:00 08/10/18 06:38 Novolog Vial Sliding Scale - SQ Not Given ACHS LIT Protocol Metformin HCl 1,000 mg 08/05/18 07:00 08/10/18 06:38 Glucophage - PO 1,000 mg BID@0700,1630 LIT Administration Metoprolol Succinate 100 mg 08/05/18 10:00 08/09/18 10:57 Toprol Xl - PO 100 mg DAILY LIT Administration Multivitamins/Minerals/Vitamin C 1 tab 08/05/18 10:00 08/09/18 10:56 Tab-A-Vit - PO 1 tab DAILY LIT Administration Nifedipine 30 mg 08/05/18 10:00 08/09/18 10:56 Procardia Xl - PO 30 mg DAILY LIT Administration Tamsulosin HCl 0.4 mg 08/05/18 08:30 08/09/18 10:22 Flomax - PO 0.4 mg DAILY@0830 LIT Administration Zolpidem Tartrate 5 mg 08/05/18 03:24 08/09/18 21:18 Ambien - PO 5 mg HS PRN Administration INSOMNIA ASSESSMENT/PLAN: Patient is a 78 year old male with a significant past medical history of diabetes, hypertension, metastatic bladder cancer (last chemo Jun 22 2018), thoracic aortic aneurysm, and cirrhosis. He presents to the ED on 08/04/2018 with c/o of weakness, fever, fatigue, near syncope and diarrhea. Patient is being admitted for sepsis secondary to UTI vs. pyelonephritis. ID: Sepsis/UTI vs pyelonephritis Urine culture with VRE, on linezolid per ID. WBC wnl, afebrile. Patient to have sepsis resolved prior to contining chemotherapy for metastatic bladder cancer. ID consulted and following. rahman catheter with dark edson urine. Urology [facility] Hematology Anemia in the setting of underlying cancer. hmg @ 7.2. daily CBC, transfuse if hgb <7 Endocrine Diabetes. Novolog SS. Monitor bgms and adjust scale as needed. fen NS @ 83cc/hr monitor electrolytes low sodium diet prophy heparin bid disposition: full code. Visit type - Emergency Visit Emergency Visit: Yes ED Registration Date: 08/04/18 Care time: The patient presented to the Emergency Department on the above date and was hospitalized for further evaluation of their emergent condition. - New Patient This patient is new to me today: Yes Date on this admission: 08/10/18 - Critical Care Critical Care patient: No - Discharge Referral Referred to [facility] Med P.C.: No
[2018-08-10] MEDS ORDERED: POTASSIUM CHLORIDE TABS 20 MEQ TABLET.ER (FP) PO ONE (10:22)
[2018-08-10] MEDS: NIFEdipine E.R. 30 MG TABLET (FP) PO SCH (10:31)
[2018-08-10] MEDS: HEPARIN NA (PORCINE) 5,000 UNITS/ML 1ML VIAL SQ SCH ×2 (10:31→22:03)
[2018-08-10] MEDS: FINASTERIDE 5 MG TABLET (FP) PO SCH (10:31)
[2018-08-10] MEDS: TAMSULOSIN HCL 0.4 MG CAP PO SCH (10:31)
[2018-08-10] MEDS: MULTIVITAMINS (DAILY MVI) TABLET (FP) PO SCH (10:31)
[2018-08-10] MEDS: LINEZOLID 600 MG PREMIX BAG 600 MG/300 ML BAG IVPB SCH ×2 (10:31→22:03)
--- NOTE | 2018-08-10 12:22 | PN ---
Progress Note, Physician Chief Complaint: The patient seen in his room. In bed. feeling better. Galarza catheter draining good amounts of urine. History of Present Illness: 78 y/o male with s/o KARTHIKEYAN, sepsis syndrome, Obstructive uropathy. Clinical status improving. The patient on IV abx. - Current Medication List Current Medications: Active Medications Acetaminophen (Tylenol -) 650 mg PO Q6H PRN PRN Reason: FEVER Last Admin: 08/08/18 01:55 Dose: 650 mg Docusate Sodium (Colace -) 100 mg PO TID [facility] Last Admin: 08/10/18 06:38 Dose: 100 mg Finasteride (Proscar -) 5 mg PO DAILY [facility] Last Admin: 08/10/18 10:31 Dose: 5 mg Heparin Sodium (Porcine) (Heparin -) 5,000 unit SQ BID [facility] Last Admin: 08/10/18 10:31 Dose: 5,000 unit Sodium Chloride (Normal Saline -) 1,000 mls @ 83 mls/hr IV ASDIR [facility] Last Admin: 08/10/18 06:35 Dose: 83 mls/hr Linezolid (Zyvox 600 Mg Premix Bag (Restricted To Id) -) 600 mg in 300 mls @ 300 mls/hr IVPB BID [facility]; Protocol Last Admin: 08/10/18 10:31 Dose: 300 mls/hr Insulin Aspart (Novolog Vial Sliding Scale -) 1 vial SQ ACHS [facility]; Protocol Last Admin: 08/10/18 06:38 Dose: Not Given Metformin HCl (Glucophage -) 1,000 mg PO BID@0700,1630 [facility] Last Admin: 08/10/18 06:38 Dose: 1,000 mg Metoprolol Succinate (Toprol Xl -) 100 mg PO DAILY [facility] Last Admin: 08/10/18 10:31 Dose: 100 mg Multivitamins/Minerals/Vitamin C (Tab-A-Vit -) 1 tab PO DAILY [facility] Last Admin: 08/10/18 10:31 Dose: 1 tab Nifedipine (Procardia Xl -) 30 mg PO DAILY [facility] Last Admin: 08/10/18 10:31 Dose: 30 mg Tamsulosin HCl (Flomax -) 0.4 mg PO DAILY@0830 [facility] Last Admin: 08/10/18 10:31 Dose: 0.4 mg Zolpidem Tartrate (Ambien -) 5 mg PO HS PRN PRN Reason: INSOMNIA Last Admin: 08/09/18 21:18 Dose: 5 mg - Objective Vital Signs: Vital Signs Temperature 100.2 F H 08/10/18 06:00 Pulse Rate 102 H 08/10/18 06:00 Respiratory Rate 20 08/10/18 06:00 Blood Pressure 114/80 08/10/18 06:00 O2 Sat by Pulse Oximetry (%) 95 08/08/18 21:00 Constitutional: Yes: No Distress, Calm Eyes: Yes: Conjunctiva Clear HENT: Yes: Normocephalic Neck: Yes: Trachea Midline Cardiovascular: Yes: Pulse Irregular, S1, S2 Respiratory: Yes: CTA Bilaterally, Diminished, Poor Air Entry Gastrointestinal: Yes: Normal Bowel Sounds, Soft Genitourinary: Yes: Galarza Present Musculoskeletal: Yes: Joint Stiffness. No: Back Pain Edema: No Labs: CBC, BMP 08/10/18 06:00 08/10/18 06:00 INR, PTT INR 1.47 (0.83-1.09) H 08/04/18 18:01 Problem List - Problems (1) UTI due to extended-spectrum beta lactamase (ESBL) producing Escherichia coli Code(s): N39.0 - URINARY TRACT INFECTION, SITE NOT SPECIFIED; B96.29 - OTH ESCHERICHIA COLI THE CAUSE OF DISEASES CLASSD ELSWHR; Z16.12 - EXTENDED SPECTRUM BETA LACTAMASE (ESBL) RESISTANCE (2) KARTHIKEYAN (acute kidney injury) Code(s): N17.9 - ACUTE KIDNEY FAILURE, UNSPECIFIED (3) Anemia Code(s): D64.9 - ANEMIA, UNSPECIFIED Qualifiers: Anemia type: due to chronic kidney disease Chronic kidney disease stage: stage 3 (moderate) Qualified Code(s): N18.3 - Chronic kidney disease, stage 3 (moderate); D63.1 - Anemia in chronic kidney disease (4) BPH (benign prostatic hyperplasia) Code(s): N40.0 - BENIGN PROSTATIC HYPERPLASIA WITHOUT LOWER URINRY TRACT SYMP Assessment/Plan 78 y/o male with KARTHIKEYAN, azotemia improved. Maintains excellent urine output. Hypokalemia, possibly related to K loss in urine. Will give KCl supplements. Will monitor the renal / electrolyte profile with you. Thank you. Will follow with you. Amena Paulino MD
--- NOTE | 2018-08-10 12:52 | PN ---
Progress Note, Physician History of Present Illness: patient doing well no issues - Current Medication List Current Medications: Active Medications Acetaminophen (Tylenol -) 650 mg PO Q6H PRN PRN Reason: FEVER Last Admin: 08/08/18 01:55 Dose: 650 mg Docusate Sodium (Colace -) 100 mg PO TID [facility] Last Admin: 08/10/18 06:38 Dose: 100 mg Finasteride (Proscar -) 5 mg PO DAILY [facility] Last Admin: 08/10/18 10:31 Dose: 5 mg Heparin Sodium (Porcine) (Heparin -) 5,000 unit SQ BID [facility] Last Admin: 08/10/18 10:31 Dose: 5,000 unit Sodium Chloride (Normal Saline -) 1,000 mls @ 83 mls/hr IV ASDIR [facility] Last Admin: 08/10/18 06:35 Dose: 83 mls/hr Linezolid (Zyvox 600 Mg Premix Bag (Restricted To Id) -) 600 mg in 300 mls @ 300 mls/hr IVPB BID [facility]; Protocol Last Admin: 08/10/18 10:31 Dose: 300 mls/hr Insulin Aspart (Novolog Vial Sliding Scale -) 1 vial SQ ACHS [facility]; Protocol Last Admin: 08/10/18 12:18 Dose: 2 units Metformin HCl (Glucophage -) 1,000 mg PO BID@0700,1630 [facility] Last Admin: 08/10/18 06:38 Dose: 1,000 mg Metoprolol Succinate (Toprol Xl -) 100 mg PO DAILY [facility] Last Admin: 08/10/18 10:31 Dose: 100 mg Multivitamins/Minerals/Vitamin C (Tab-A-Vit -) 1 tab PO DAILY [facility] Last Admin: 08/10/18 10:31 Dose: 1 tab Nifedipine (Procardia Xl -) 30 mg PO DAILY [facility] Last Admin: 08/10/18 10:31 Dose: 30 mg Potassium Chloride (K-Dur -) 10 meq PO BID [facility] Tamsulosin HCl (Flomax -) 0.4 mg PO DAILY@0830 [facility] Last Admin: 08/10/18 10:31 Dose: 0.4 mg Zolpidem Tartrate (Ambien -) 5 mg PO HS PRN PRN Reason: INSOMNIA Last Admin: 08/09/18 21:18 Dose: 5 mg - Objective Vital Signs: Vital Signs Temperature 100.2 F H 08/10/18 06:00 Pulse Rate 102 H 08/10/18 06:00 Respiratory Rate 20 08/10/18 06:00 Blood Pressure 114/80 08/10/18 06:00 O2 Sat by Pulse Oximetry (%) 95 08/08/18 21:00 Constitutional: Yes: No Distress, Calm Cardiovascular: Yes: Regular Rate and Rhythm Respiratory: Yes: Regular, CTA Bilaterally Gastrointestinal: Yes: Normal Bowel Sounds, Soft Genitourinary: Yes: Galarza Present Musculoskeletal: Yes: WNL Extremities: Yes: WNL Neurological: Yes: Alert Psychiatric: Yes: Alert, Oriented Labs: CBC, BMP 08/10/18 06:00 08/10/18 06:00 INR, PTT INR 1.47 (0.83-1.09) H 08/04/18 18:01 Assessment/Plan sepsis fever uti weakness ca bladder wbc normalized plan will stop abx tomorrow and watch rest as per the team
[2018-08-10] MEDS: POTASSIUM CHLORIDE TABS 10 MEQ TABLET.ER (FP) PO SCH (22:03)
[2018-08-10] MEDS: ZOLPIDEM TARTRATE 5 MG TABLET PO PRN (22:10)
--- NOTE | 2018-08-10 23:07 | PN ---
Progress Note (short form) - Note Progress Note: Patient seen and examined feels slightly better Last Vital Signs Temp Pulse Resp BP Pulse Ox 98.9 F 99 H 18 109/70 95 08/10/18 22:00 08/10/18 22:00 08/10/18 22:00 08/10/18 22:00 08/10/18 21:00 Cor: RSR, No murmurs, No gallops Lungs:decreased at bases Abd: Soft, Normal bowel sounds, No organomegaly Ext:No significant edema Labs/Meds reviewed A/P 78 year old male, with a significant past medical history of diabetes, hypertension, metastatic bladder cancer (last chemo Jun 22 2018), thoracic aortic aneurysm, and cirrhosis, who presents to the emergency department with weakness, fever, fatigue, near syncope and diarrhea. VRE urinary infection hydronephrosis On linezolid HAs rahman in place transfuse PRBCs for hgb <7 will follow
[2018-08-11] MEDS: DOCUSATE SODIUM 100 MG CAPSULE (FP) PO SCH ×3 (06:13→21:16)
[2018-08-11] MEDS: metFORMIN HCL 500 MG TABLET (FP) PO SCH ×2 (06:14→17:05)
[2018-08-11] MEDS: INSULIN SLIDING SCALE (NOVOLOG) 1 VIAL SQ SCH ×4 (06:14→21:20)
[2018-08-11] MEDS: SODIUM CHLORIDE 1,000 ML IV SCH ×3 (06:24→19:41)
[2018-08-11] MEDS: TAMSULOSIN HCL 0.4 MG CAP PO SCH (08:46)
[2018-08-11] MEDS ORDERED: PT OWN MED DRAWER 7, Y5N ONE (09:31)
[2018-08-11] MEDS: POTASSIUM CHLORIDE TABS 10 MEQ TABLET.ER (FP) PO SCH ×2 (09:37→21:16)
[2018-08-11] MEDS: FINASTERIDE 5 MG TABLET (FP) PO SCH (09:37)
[2018-08-11] MEDS: NIFEdipine E.R. 30 MG TABLET (FP) PO SCH (09:37)
[2018-08-11] MEDS: MULTIVITAMINS (DAILY MVI) TABLET (FP) PO SCH (09:37)
[2018-08-11] MEDS: HEPARIN NA (PORCINE) 5,000 UNITS/ML 1ML VIAL SQ SCH ×2 (09:38→21:16)
[2018-08-11] MEDS: LINEZOLID 600 MG PREMIX BAG 600 MG/300 ML BAG IVPB SCH (09:38)
--- NOTE | 2018-08-11 10:52 | PN ---
Physical Exam: SUBJECTIVE: Patient seen and examined at the bedside. Feels well, having loose BMs, diarrhea x 3 episodes. OBJECTIVE: will repeat c diff, previous one negative awaiting cbc/cmp Vital Signs Period Temp Pulse Resp BP Sys/Benjamin Pulse Ox Last 24 Hr 98.4 F-98.9 F 94-99 18-20 109-136/70-81 95 GENERAL: The patient is awake, alert, and fully oriented, in no acute distress. HEAD: Normal with no signs of trauma. EYES: PERRL, extraocular movements intact, sclera anicteric, conjunctiva clear. No ptosis. ENT: Ears normal, nares patent, oropharynx clear without exudates, moist mucous membranes. NECK: Trachea midline, full range of motion, supple. LUNGS: Breath sounds equal, clear to auscultation bilaterally, HEART: Regular rate and rhythm ABDOMEN: Soft, nontender, nondistended, normoactive bowel sounds, EXTREMITIES: no edema. NEUROLOGICAL: Normal speech, gait not observed. PSYCH: Normal mood, normal affect. SKIN: Warm, dry, normal turgor, no rashes or lesions noted Laboratory Results - last 24 hr 08/04/18 08/10/18 08/10/18 18:01 12:17 18:22 POC Glucometer 162 175 Blood Type A POSITIVE Antibody Screen Negative Crossmatch See Detail 08/10/18 08/11/18 22:11 06:14 POC Glucometer 106 139 Blood Type Antibody Screen Crossmatch Active Medications Generic Name Dose Route Start Last Admin Trade Name Freq PRN Reason Stop Dose Admin Acetaminophen 650 mg 08/05/18 03:11 08/08/18 01:55 Tylenol - PO 650 mg Q6H PRN Administration FEVER Docusate Sodium 100 mg 08/05/18 06:00 08/11/18 06:13 Colace - PO Not Given TID LIT Finasteride 5 mg 08/05/18 10:00 08/11/18 09:37 Proscar - PO 5 mg DAILY LIT Administration Heparin Sodium (Porcine) 5,000 unit 08/05/18 10:00 08/11/18 09:38 Heparin - SQ 5,000 unit BID LIT Administration Sodium Chloride 1,000 mls @ 83 mls/hr 08/05/18 12:15 08/11/18 06:24 Normal Saline - IV 83 mls/hr ASDIR LIT Administration Linezolid 600 mg in 300 mls @ 300 mls/hr 08/07/18 11:00 08/11/18 09:38 Zyvox 600 Mg Premix Bag (Restricted To Id) - IVPB 300 mls/hr BID [facility] Administration Protocol Insulin Aspart 1 vial 08/05/18 07:00 08/11/18 06:14 Novolog Vial Sliding Scale - SQ Not Given ACHS LIT Protocol Metformin HCl 1,000 mg 08/05/18 07:00 08/11/18 06:14 Glucophage - PO 1,000 mg BID@0700,1630 LIT Administration Metoprolol Succinate 100 mg 08/05/18 10:00 08/11/18 09:37 Toprol Xl - PO 100 mg DAILY [facility] Administration Multivitamins/Minerals/Vitamin C 1 tab 08/05/18 10:00 08/11/18 09:37 Tab-A-Vit - PO 1 tab DAILY [facility] Administration Nifedipine 30 mg 08/05/18 10:00 08/11/18 09:37 Procardia Xl - PO 30 mg DAILY LIT Administration Potassium Chloride 10 meq 08/10/18 22:00 08/11/18 09:37 K-Dur - PO 10 meq BID LIT Administration Tamsulosin HCl 0.4 mg 08/05/18 08:30 08/11/18 08:46 Flomax - PO 0.4 mg DAILY@0830 LIT Administration Zolpidem Tartrate 5 mg 08/05/18 03:24 08/10/18 22:10 Ambien - PO 5 mg HS PRN Administration INSOMNIA ASSESSMENT/PLAN: Patient is a 78 year old male with a significant past medical history of diabetes, hypertension, metastatic bladder cancer (last chemo Jun 22 2018), thoracic aortic aneurysm, and cirrhosis. He presents to the ED on 08/04/2018 with c/o of weakness, fever, fatigue, near syncope and diarrhea. Patient is being admitted for sepsis secondary to UTI vs. pyelonephritis. ID: Sepsis/UTI vs pyelonephritis Urine culture with VRE, on linezolid per ID. WBC wnl, afebrile. Patient to have sepsis resolved prior to continuing chemotherapy for metastatic bladder cancer. ID consulted and following. rahman catheter with dark edson urine. Urology following Hematology Anemia in the setting of underlying cancer. hmg @ 7.2. daily CBC, transfuse if hgb <7 CBC today pending Card: Hypertension: controlled on Procardia xl. toprol 100mg xl Endocrine Diabetes. Novolog SS. Monitor bgms and adjust scale as needed. fen NS @ 83cc/hr monitor electrolytes low sodium diet prophy heparin bid disposition: full code. Visit type - Emergency Visit Emergency Visit: Yes ED Registration Date: 08/04/18 Care time: The patient presented to the Emergency Department on the above date and was hospitalized for further evaluation of their emergent condition. - New Patient This patient is new to me today: No - Critical Care Critical Care patient: No - Discharge Referral Referred to [facility] Med P.C.: No
--- NOTE | 2018-08-11 11:01 | PN ---
Progress Note, Physician History of Present Illness: patient stable has been having dirrhoea - Current Medication List Current Medications: Active Medications Acetaminophen (Tylenol -) 650 mg PO Q6H PRN PRN Reason: FEVER Last Admin: 08/08/18 01:55 Dose: 650 mg Docusate Sodium (Colace -) 100 mg PO TID [facility] Last Admin: 08/11/18 06:13 Dose: Not Given Finasteride (Proscar -) 5 mg PO DAILY [facility] Last Admin: 08/11/18 09:37 Dose: 5 mg Heparin Sodium (Porcine) (Heparin -) 5,000 unit SQ BID [facility] Last Admin: 08/11/18 09:38 Dose: 5,000 unit Sodium Chloride (Normal Saline -) 1,000 mls @ 83 mls/hr IV ASDIR [facility] Last Admin: 08/11/18 06:24 Dose: 83 mls/hr Insulin Aspart (Novolog Vial Sliding Scale -) 1 vial SQ ACHS [facility]; Protocol Last Admin: 08/11/18 06:14 Dose: Not Given Metformin HCl (Glucophage -) 1,000 mg PO BID@0700,1630 [facility] Last Admin: 08/11/18 06:14 Dose: 1,000 mg Metoprolol Succinate (Toprol Xl -) 100 mg PO DAILY [facility] Last Admin: 08/11/18 09:37 Dose: 100 mg Multivitamins/Minerals/Vitamin C (Tab-A-Vit -) 1 tab PO DAILY [facility] Last Admin: 08/11/18 09:37 Dose: 1 tab Nifedipine (Procardia Xl -) 30 mg PO DAILY [facility] Last Admin: 08/11/18 09:37 Dose: 30 mg Potassium Chloride (K-Dur -) 10 meq PO BID [facility] Last Admin: 08/11/18 09:37 Dose: 10 meq Tamsulosin HCl (Flomax -) 0.4 mg PO DAILY@0830 [facility] Last Admin: 08/11/18 08:46 Dose: 0.4 mg Zolpidem Tartrate (Ambien -) 5 mg PO HS PRN PRN Reason: INSOMNIA Last Admin: 08/10/18 22:10 Dose: 5 mg - Objective Vital Signs: Vital Signs Temperature 98.5 F 08/11/18 06:00 Pulse Rate 97 H 08/11/18 06:00 Respiratory Rate 20 08/11/18 06:00 Blood Pressure 136/73 08/11/18 06:00 O2 Sat by Pulse Oximetry (%) 95 08/10/18 21:00 Constitutional: Yes: No Distress, Calm Cardiovascular: Yes: Regular Rate and Rhythm Respiratory: Yes: Regular, CTA Bilaterally Gastrointestinal: Yes: Normal Bowel Sounds, Soft, Other (dirrhoea) Genitourinary: Yes: Galarza Present Musculoskeletal: Yes: WNL Extremities: Yes: WNL Neurological: Yes: Alert, Oriented Psychiatric: Yes: Alert, Oriented Labs: CBC, BMP 08/10/18 06:00 08/10/18 06:00 INR, PTT INR 1.47 (0.83-1.09) H 08/04/18 18:01 Assessment/Plan sepsis fever uti weakness ca bladder plan stopped abx will continue to watch if dirrhoea continues will send cdiff
[2018-08-11 12:42] LABS: BASO % 0.2 % (0-2.0); EOS % 0.7 % (0-4.5); HEMOGLOBIN 7.5 GM/dL (11.7-16.9); MCH 21.4 pg (25.7-33.7); MCHC 31.4 g/dl (32.0-35.9); MEAN CELL VOLUME 68.4 fl (80-96); MEAN PLT VOLUME 9.6 fl (7.5-11.1); MONO % 6.3 % (3.8-10.2); NEUT % 81.8 % (42.8-82.8); PLATELET COUNT 194 K/MM3 (134-434); RBC 3.52 M/mm3 (4.00-5.60); RDW 25.8 % (11.9-15.9); WHITE BLOOD COUNT 7.9 K/mm3 (4.0-10.0)
[2018-08-11 13:12] LABS: ALBUMIN 1.7 g/dl (3.4-5.0); ALK PHOS 662 U/L (45-117); ANION GAP 12 MMOL/L (8-16); BILIRUBIN,TOTAL 1.4 mg/dL (0.2-1); BLOOD UREA NITROGEN 12 mg/dL (7-18); CALCIUM 7.3 mg/dL (8.5-10.1); CHLORIDE 104 mmol/L (98-107); CO2 20 mmol/L (21-32); CREATININE 0.6 mg/dL (0.55-1.3); GLUCOSE,RANDOM 134 mg/dL (74-106); POTASSIUM 3.5 mmol/L (3.5-5.1); SGOT/AST 29 U/L (15-37); SGPT/ALT 24 U/L (13-61); SODIUM 136 mmol/L (136-145); TOT PROT 5.6 g/dl (6.4-8.2)
--- NOTE | 2018-08-11 13:36 | PN ---
Progress Note, Physician Chief Complaint: The patient seen in his room. Feeling better. Galarza catheter draining good amounts of urine. History of Present Illness: 78 y/o male with s/o KARTHIKEYAN, sepsis syndrome, Obstructive uropathy. Clinical status improving. The patient on IV abx. - Current Medication List Current Medications: Active Medications Acetaminophen (Tylenol -) 650 mg PO Q6H PRN PRN Reason: FEVER Last Admin: 08/08/18 01:55 Dose: 650 mg Docusate Sodium (Colace -) 100 mg PO TID [facility] Last Admin: 08/11/18 06:13 Dose: Not Given Finasteride (Proscar -) 5 mg PO DAILY [facility] Last Admin: 08/11/18 09:37 Dose: 5 mg Heparin Sodium (Porcine) (Heparin -) 5,000 unit SQ BID [facility] Last Admin: 08/11/18 09:38 Dose: 5,000 unit Sodium Chloride (Normal Saline -) 1,000 mls @ 83 mls/hr IV ASDIR [facility] Last Admin: 08/11/18 06:24 Dose: 83 mls/hr Insulin Aspart (Novolog Vial Sliding Scale -) 1 vial SQ ACHS [facility]; Protocol Last Admin: 08/11/18 11:50 Dose: 2 units Metformin HCl (Glucophage -) 1,000 mg PO BID@0700,1630 [facility] Last Admin: 08/11/18 06:14 Dose: 1,000 mg Metoprolol Succinate (Toprol Xl -) 100 mg PO DAILY [facility] Last Admin: 08/11/18 09:37 Dose: 100 mg Multivitamins/Minerals/Vitamin C (Tab-A-Vit -) 1 tab PO DAILY [facility] Last Admin: 08/11/18 09:37 Dose: 1 tab Nifedipine (Procardia Xl -) 30 mg PO DAILY [facility] Last Admin: 08/11/18 09:37 Dose: 30 mg Potassium Chloride (K-Dur -) 10 meq PO BID [facility] Last Admin: 08/11/18 09:37 Dose: 10 meq Tamsulosin HCl (Flomax -) 0.4 mg PO DAILY@0830 [facility] Last Admin: 08/11/18 08:46 Dose: 0.4 mg Zolpidem Tartrate (Ambien -) 5 mg PO HS PRN PRN Reason: INSOMNIA Last Admin: 08/10/18 22:10 Dose: 5 mg - Objective Vital Signs: Vital Signs Temperature 98.5 F 08/11/18 06:00 Pulse Rate 97 H 08/11/18 06:00 Respiratory Rate 20 08/11/18 06:00 Blood Pressure 136/73 08/11/18 06:00 O2 Sat by Pulse Oximetry (%) 95 08/10/18 21:00 Constitutional: Yes: No Distress, Pallor Eyes: Yes: Conjunctiva Clear HENT: Yes: Normocephalic Neck: Yes: Trachea Midline Cardiovascular: Yes: Regular Rate and Rhythm, Tachycardia, S1, S2 Respiratory: Yes: CTA Bilaterally, Diminished Gastrointestinal: Yes: Normal Bowel Sounds, Soft Genitourinary: Yes: Galarza Present Musculoskeletal: No: Back Pain Edema: No Neurological: Yes: Alert, Oriented Psychiatric: Yes: Alert, Oriented Labs: CBC, BMP 08/11/18 12:23 08/11/18 12:23 INR, PTT INR 1.47 (0.83-1.09) H 08/04/18 18:01 Problem List - Problems (1) UTI due to extended-spectrum beta lactamase (ESBL) producing Escherichia coli Code(s): N39.0 - URINARY TRACT INFECTION, SITE NOT SPECIFIED; B96.29 - OTH ESCHERICHIA COLI THE CAUSE OF DISEASES CLASSD ELSWHR; Z16.12 - EXTENDED SPECTRUM BETA LACTAMASE (ESBL) RESISTANCE (2) KARTHIKEYAN (acute kidney injury) Code(s): N17.9 - ACUTE KIDNEY FAILURE, UNSPECIFIED (3) Anemia Code(s): D64.9 - ANEMIA, UNSPECIFIED Qualifiers: Anemia type: due to chronic kidney disease Chronic kidney disease stage: stage 3 (moderate) Qualified Code(s): N18.3 - Chronic kidney disease, stage 3 (moderate); D63.1 - Anemia in chronic kidney disease (4) BPH (benign prostatic hyperplasia) Code(s): N40.0 - BENIGN PROSTATIC HYPERPLASIA WITHOUT LOWER URINRY TRACT SYMP Assessment/Plan 78 y/o male with KARTHIKEYAN, azotemia improved.Maintains excellent urine output. Hypokalemia, possibly related to K loss in urine. On KCl supplements. Today's K is 3.5 mEq/L Will continue the KDur. Will monitor the renal / electrolyte profile with you. Thank you. Amena Paulino MD
--- NOTE | 2018-08-11 14:10 | PN ---
Progress Note (short form) - Note Progress Note: patient seen and examined at bedside Feels better today Denies fever or chills Vital Signs Temperature 98.5 F 08/11/18 06:00 Pulse Rate 97 H 08/11/18 06:00 Respiratory Rate 20 08/11/18 06:00 Blood Pressure 136/73 08/11/18 06:00 O2 Sat by Pulse Oximetry (%) 95 08/10/18 21:00 NAD lying in bed RRR S1 S2 CTAB Soft non tender Galarza in place 08/11/18 08/11/18 12:23 12:23 WBC 7.9 RBC 3.52 L Hgb 7.5 L Hct 24.0 L MCV 68.4 L MCHC 31.4 L RDW 25.8 H Plt Count 194 Neutrophils % 81.8 Lymphocytes % 11.0 Monocytes % 6.3 Eosinophils % 0.7 Basophils % 0.2 Sodium 136 Potassium 3.5 Chloride 104 Carbon Dioxide 20 L Anion Gap 12 BUN 12 Creatinine 0.6 08/07/18 06:20 Blood Culture - Preliminary Blood - Peripheral Venous NO GROWTH OBTAINED AFTER 96 HOURS, INCUBATION TO CONTINUE FOR 1 DAYS. 08/07/18 06:20 Blood Culture - Preliminary Blood - Peripheral Venous NO GROWTH OBTAINED AFTER 96 HOURS, INCUBATION TO CONTINUE FOR 1 DAYS. 08/04/18 18:01 Blood Culture - Final Blood - Peripheral Venous NO GROWTH AFTER 5 DAYS INCUBATION 08/04/18 18:01 Blood Culture - Final Blood - Peripheral Venous NO GROWTH AFTER 5 DAYS INCUBATION 08/07/18 21:30 Clostridium difficile Antigen (OK) - Final Stool Clostridium difficile Toxin Assay - Final 08/04/18 18:41 Urine Culture - Final Urine - Urine Clean Catch Vr Ec Faecium 08/04/18 18:01 Clostridium difficile Antigen (OK) - Final Stool Clostridium difficile Toxin Assay - Final No Labs today Problem List: Metastatic bladder Ca Sepsis secondary to UTI vs pyelonephritis HTN BPH DM Plan: Patient needs to have sepsis resolved and needs better performance status before restarting chemotherapy PT consult ordered-patient refused today OOB to chair as tolerated UCx with VRE continue linezolid per ID continue trending CBC and transfuse for Hb <7.0 will follow
[2018-08-11] MEDS ORDERED: INSULIN (NOVOLOG) ASPART 100 UNITS/ML 10ML VIAL ONE (17:00)
[2018-08-11] MEDS: ZOLPIDEM TARTRATE 5 MG TABLET PO PRN (21:16)
--- NOTE | 2018-08-12 00:30 | PN ---
Progress Note (short form) - Note Progress Note: Patient seen and examined feels slightly better AFVSS Cor: RSR, No murmurs, No gallops Lungs:decreased at bases Abd: Soft, Normal bowel sounds, No organomegaly Labs/Meds reviewed A/P 78 year old male, with a significant past medical history of diabetes, hypertension, metastatic bladder cancer (last chemo Jun 22 2018), thoracic aortic aneurysm, and cirrhosis, who presents to the emergency department with weakness, fever, fatigue, near syncope and diarrhea. VRE urinary infection hydronephrosis On linezolid HAs rahman in place transfuse PRBCs for hgb <7 will follow
[2018-08-12] MEDS: DOCUSATE SODIUM 100 MG CAPSULE (FP) PO SCH ×3 (06:10→21:00)
[2018-08-12] MEDS: metFORMIN HCL 500 MG TABLET (FP) PO SCH ×2 (06:12→18:44)
[2018-08-12] MEDS: INSULIN SLIDING SCALE (NOVOLOG) 1 VIAL SQ SCH ×4 (06:12→21:00)
[2018-08-12 08:30] LABS: ALBUMIN 1.8 g/dl (3.4-5.0); ALK PHOS 731 U/L (45-117); ANION GAP 10 MMOL/L (8-16); BILIRUBIN,TOTAL 1.5 mg/dL (0.2-1); BLOOD UREA NITROGEN 10 mg/dL (7-18); CALCIUM 7.3 mg/dL (8.5-10.1); CHLORIDE 106 mmol/L (98-107); CO2 22 mmol/L (21-32); CREATININE 0.4 mg/dL (0.55-1.3); GLUCOSE,RANDOM 113 mg/dL (74-106); POTASSIUM 3.6 mmol/L (3.5-5.1); SGOT/AST 27 U/L (15-37); SGPT/ALT 26 U/L (13-61); SODIUM 137 mmol/L (136-145); TOT PROT 5.5 g/dl (6.4-8.2)
[2018-08-12] MEDS: TAMSULOSIN HCL 0.4 MG CAP PO SCH (08:44)
[2018-08-12] MEDS: FINASTERIDE 5 MG TABLET (FP) PO SCH (10:22)
[2018-08-12] MEDS: POTASSIUM CHLORIDE TABS 10 MEQ TABLET.ER (FP) PO SCH ×2 (10:22→21:00)
[2018-08-12] MEDS: MULTIVITAMINS (DAILY MVI) TABLET (FP) PO SCH (10:22)
[2018-08-12] MEDS: NIFEdipine E.R. 30 MG TABLET (FP) PO SCH (10:22)
[2018-08-12] MEDS: HEPARIN NA (PORCINE) 5,000 UNITS/ML 1ML VIAL SQ SCH ×2 (10:22→21:01)
[2018-08-12] MEDS: SODIUM CHLORIDE 1,000 ML IV SCH ×2 (12:43→22:20)
--- NOTE | 2018-08-12 12:58 | PN ---
Progress Note (short form) - Note Progress Note: 78 y/o male with KARTHIKEYAN, Hypokalemia, Current Medications Acetaminophen (Tylenol -) 650 mg PO Q6H PRN PRN Reason: FEVER Last Admin: 08/08/18 01:55 Dose: 650 mg Docusate Sodium (Colace -) 100 mg PO TID [facility] Last Admin: 08/12/18 06:10 Dose: Not Given Finasteride (Proscar -) 5 mg PO DAILY [facility] Last Admin: 08/12/18 10:22 Dose: 5 mg Heparin Sodium (Porcine) (Heparin -) 5,000 unit SQ BID [facility] Last Admin: 08/12/18 10:22 Dose: 5,000 unit Sodium Chloride (Normal Saline -) 1,000 mls @ 83 mls/hr IV ASDIR [facility] Last Admin: 08/12/18 12:43 Dose: 83 mls/hr Insulin Aspart (Novolog Vial Sliding Scale -) 1 vial SQ ACHS [facility]; Protocol Last Admin: 08/12/18 12:43 Dose: 2 units Metformin HCl (Glucophage -) 1,000 mg PO BID@0700,1630 [facility] Last Admin: 08/12/18 06:12 Dose: 1,000 mg Metoprolol Succinate (Toprol Xl -) 100 mg PO DAILY [facility] Last Admin: 08/12/18 10:22 Dose: 100 mg Multivitamins/Minerals/Vitamin C (Tab-A-Vit -) 1 tab PO DAILY [facility] Last Admin: 08/12/18 10:22 Dose: 1 tab Nifedipine (Procardia Xl -) 30 mg PO DAILY [facility] Last Admin: 08/12/18 10:22 Dose: 30 mg Potassium Chloride (K-Dur -) 10 meq PO BID [facility] Last Admin: 08/12/18 10:22 Dose: 10 meq Tamsulosin HCl (Flomax -) 0.4 mg PO DAILY@0830 [facility] Last Admin: 08/12/18 08:44 Dose: 0.4 mg Zolpidem Tartrate (Ambien -) 5 mg PO HS PRN PRN Reason: INSOMNIA Last Admin: 08/11/18 21:16 Dose: 5 mg Last Vital Signs Temp Pulse Resp BP Pulse Ox 98 F 89 20 142/92 95 08/12/18 07:15 08/12/18 07:15 08/12/18 07:15 08/12/18 07:15 08/11/18 21:00 lungs clear heart reg abd soft nontender ext no edema CBC, BMP 08/11/18 12:23 08/12/18 06:00 IMP- ckd k replaced anemia Plan- continue same rx
[2018-08-12 13:42] LABS: BASO % 0.4 % (0-2.0); EOS % 0.9 % (0-4.5); HEMATOCRIT 24.5 % (35.4-49); HEMOGLOBIN 7.8 GM/dL (11.7-16.9); LYMPH % 10.5 % (8-40); MCH 21.9 pg (25.7-33.7); MCHC 31.7 g/dl (32.0-35.9); MEAN CELL VOLUME 69.1 fl (80-96); MEAN PLT VOLUME 9.7 fl (7.5-11.1); MONO % 4.6 % (3.8-10.2); NEUT % 83.6 % (42.8-82.8); PLATELET COUNT 237 K/MM3 (134-434); RBC 3.54 M/mm3 (4.00-5.60); RDW 25.9 % (11.9-15.9); WHITE BLOOD COUNT 7.7 K/mm3 (4.0-10.0)
--- NOTE | 2018-08-12 14:17 | PN ---
Progress Note, Physician Chief Complaint: Pt A&Ox3; no chest pain or dyspnea; plans to "get stronger" through exercise, diet. History of Present Illness: 78 year old white male, with a significant past medical history of diabetes, hypertension, metastatic bladder cancer (last chemo Jun 22 2018), thalassemia, thoracic aortic aneurysm, (normal LVEF by recent ECHO), and cirrhosis, who presents to the emergency department with weakness, fever, fatigue, near syncope , and diarrhea. Yesterday, He had two nephrostomy tubes taken out of both his kidneys and a catheter taken out of his penis by Dr. Enamorado here at [facility] in the interventional radiology dept. He was recently hospitalized here at [facility] and he received Abx, he does not know which ones though. He believes he finished the Abx around 2/3 weeks prior. Yesterday he had 4/5 episodes of diarrhea which he states are not bloody. 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 Quit cigarettes in 1989. - Current Medication List Current Medications: Active Medications Acetaminophen (Tylenol -) 650 mg PO Q6H PRN PRN Reason: FEVER Last Admin: 08/08/18 01:55 Dose: 650 mg Docusate Sodium (Colace -) 100 mg PO TID [facility] Last Admin: 08/12/18 06:10 Dose: Not Given Finasteride (Proscar -) 5 mg PO DAILY [facility] Last Admin: 08/12/18 10:22 Dose: 5 mg Heparin Sodium (Porcine) (Heparin -) 5,000 unit SQ BID [facility] Last Admin: 08/12/18 10:22 Dose: 5,000 unit Sodium Chloride (Normal Saline -) 1,000 mls @ 83 mls/hr IV ASDIR [facility] Last Admin: 08/12/18 12:43 Dose: 83 mls/hr Insulin Aspart (Novolog Vial Sliding Scale -) 1 vial SQ ACHS [facility]; Protocol Last Admin: 08/12/18 12:43 Dose: 2 units Metformin HCl (Glucophage -) 1,000 mg PO BID@0700,1630 [facility] Last Admin: 08/12/18 06:12 Dose: 1,000 mg Metoprolol Succinate (Toprol Xl -) 100 mg PO DAILY [facility] Last Admin: 08/12/18 10:22 Dose: 100 mg Multivitamins/Minerals/Vitamin C (Tab-A-Vit -) 1 tab PO DAILY [facility] Last Admin: 08/12/18 10:22 Dose: 1 tab Nifedipine (Procardia Xl -) 30 mg PO DAILY [facility] Last Admin: 08/12/18 10:22 Dose: 30 mg Potassium Chloride (K-Dur -) 10 meq PO BID [facility] Last Admin: 08/12/18 10:22 Dose: 10 meq Tamsulosin HCl (Flomax -) 0.4 mg PO DAILY@0830 [facility] Last Admin: 08/12/18 08:44 Dose: 0.4 mg Zolpidem Tartrate (Ambien -) 5 mg PO HS PRN PRN Reason: INSOMNIA Last Admin: 08/11/18 21:16 Dose: 5 mg - Objective Vital Signs: Vital Signs Temperature 98 F 08/12/18 07:15 Pulse Rate 89 08/12/18 07:15 Respiratory Rate 20 08/12/18 07:15 Blood Pressure 142/92 08/12/18 07:15 O2 Sat by Pulse Oximetry (%) 95 08/11/18 21:00 Constitutional: Yes: Anxious Eyes: Yes: WNL HENT: Yes: WNL Neck: Yes: WNL Labs: CBC, BMP 08/12/18 13:10 08/12/18 06:00 INR, PTT INR 1.47 (0.83-1.09) H 08/04/18 18:01 Problem List - Problems (1) Anemia Code(s): D64.9 - ANEMIA, UNSPECIFIED Qualifiers: Anemia type: due to chronic kidney disease Chronic kidney disease stage: stage 3 (moderate) Qualified Code(s): N18.3 - Chronic kidney disease, stage 3 (moderate); D63.1 - Anemia in chronic kidney disease (2) Bladder cancer Code(s): C67.9 - MALIGNANT NEOPLASM OF BLADDER, UNSPECIFIED (3) Diabetes Code(s): E11.9 - TYPE 2 DIABETES MELLITUS WITHOUT COMPLICATIONS (4) Hypertension Code(s): I10 - ESSENTIAL (PRIMARY) HYPERTENSION Qualifiers: Hypertension type: other secondary hypertension Qualified Code(s): I15.8 - Other secondary hypertension (5) 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 ECHO with normal LVEF recently. F/u EKG. Code(s): R00.0 - TACHYCARDIA, UNSPECIFIED (9) Hypoalbuminemia Code(s): E88.09 - OTH DISORDERS OF PLASMA-PROTEIN METABOLISM, NEC
--- NOTE | 2018-08-12 17:35 | PN ---
Progress Note, Physician History of Present Illness: Pt feels well. States diarrhea has been subsiding since antibiotics were stopped. No abd pain/fever/chills reported. - Current Medication List Current Medications: Active Medications Acetaminophen (Tylenol -) 650 mg PO Q6H PRN PRN Reason: FEVER Last Admin: 08/08/18 01:55 Dose: 650 mg Docusate Sodium (Colace -) 100 mg PO TID [facility] Last Admin: 08/12/18 06:10 Dose: Not Given Finasteride (Proscar -) 5 mg PO DAILY [facility] Last Admin: 08/12/18 10:22 Dose: 5 mg Heparin Sodium (Porcine) (Heparin -) 5,000 unit SQ BID [facility] Last Admin: 08/12/18 10:22 Dose: 5,000 unit Sodium Chloride (Normal Saline -) 1,000 mls @ 83 mls/hr IV ASDIR [facility] Last Admin: 08/12/18 12:43 Dose: 83 mls/hr Insulin Aspart (Novolog Vial Sliding Scale -) 1 vial SQ ACHS [facility]; Protocol Last Admin: 08/12/18 12:43 Dose: 2 units Metformin HCl (Glucophage -) 1,000 mg PO BID@0700,1630 [facility] Last Admin: 08/12/18 06:12 Dose: 1,000 mg Metoprolol Succinate (Toprol Xl -) 100 mg PO DAILY [facility] Last Admin: 08/12/18 10:22 Dose: 100 mg Multivitamins/Minerals/Vitamin C (Tab-A-Vit -) 1 tab PO DAILY [facility] Last Admin: 08/12/18 10:22 Dose: 1 tab Nifedipine (Procardia Xl -) 30 mg PO DAILY [facility] Last Admin: 08/12/18 10:22 Dose: 30 mg Potassium Chloride (K-Dur -) 10 meq PO BID [facility] Last Admin: 08/12/18 10:22 Dose: 10 meq Tamsulosin HCl (Flomax -) 0.4 mg PO DAILY@0830 [facility] Last Admin: 08/12/18 08:44 Dose: 0.4 mg Zolpidem Tartrate (Ambien -) 5 mg PO HS PRN PRN Reason: INSOMNIA Last Admin: 08/11/18 21:16 Dose: 5 mg - Objective Vital Signs: Vital Signs Temperature 98.6 F 08/12/18 17:31 Pulse Rate 96 H 08/12/18 17:31 Respiratory Rate 20 10/27/18 17:31 Blood Pressure 115/74 08/12/18 17:31 O2 Sat by Pulse Oximetry (%) 95 08/12/18 09:00 Constitutional: Yes: No Distress, Calm Cardiovascular: Yes: Regular Rate and Rhythm Respiratory: Yes: Regular Gastrointestinal: Yes: Normal Bowel Sounds, Soft Genitourinary: Yes: Galarza Present Edema: No Neurological: Yes: Alert, Oriented Labs: CBC, BMP 08/12/18 13:10 08/12/18 06:00 INR, PTT INR 1.47 (0.83-1.09) H 08/04/18 18:01 Microbiology 08/07/18 06:20 Blood - Peripheral Venous Blood Culture - Final NO GROWTH AFTER 5 DAYS INCUBATION 08/07/18 06:20 Blood - Peripheral Venous Blood Culture - Final NO GROWTH AFTER 5 DAYS INCUBATION 08/04/18 18:01 Blood - Peripheral Venous Blood Culture - Final NO GROWTH AFTER 5 DAYS INCUBATION 08/04/18 18:01 Blood - Peripheral Venous Blood Culture - Final NO GROWTH AFTER 5 DAYS INCUBATION 08/07/18 21:30 Stool Clostridium difficile Antigen (OK) - Final 08/07/18 21:30 Stool Clostridium difficile Toxin Assay - Final 08/04/18 18:41 Urine - Urine Clean Catch Urine Culture - Final Vr Ec Faecium 08/04/18 18:01 Stool Clostridium difficile Antigen (OK) - Final 08/04/18 18:01 Stool Clostridium difficile Toxin Assay - Final Assessment/Plan UTI s/p Sepsis Metastatic Bladder CA Urinary retention Diarrhea -- C. diff negative -- monitor off antibiotics, pt currently stable, wbc normal/afebrile -- urology/oncology follow up
[2018-08-12] MEDS: ZOLPIDEM TARTRATE 5 MG TABLET PO PRN (22:20)
--- NOTE | 2018-08-13 00:25 | PN ---
Progress Note, Physician History of Present Illness: Pt seen and examined 08/12/18 however note is being entered now - Current Medication List Current Medications: Active Medications Acetaminophen (Tylenol -) 650 mg PO Q6H PRN PRN Reason: FEVER Last Admin: 08/08/18 01:55 Dose: 650 mg Docusate Sodium (Colace -) 100 mg PO TID [facility] Last Admin: 08/12/18 21:00 Dose: Not Given Finasteride (Proscar -) 5 mg PO DAILY [facility] Last Admin: 08/12/18 10:22 Dose: 5 mg Heparin Sodium (Porcine) (Heparin -) 5,000 unit SQ BID [facility] Last Admin: 08/12/18 21:01 Dose: 5,000 unit Sodium Chloride (Normal Saline -) 1,000 mls @ 83 mls/hr IV ASDIR [facility] Last Admin: 08/12/18 22:20 Dose: 83 mls/hr Insulin Aspart (Novolog Vial Sliding Scale -) 1 vial SQ ACHS [facility]; Protocol Last Admin: 08/12/18 21:00 Dose: 2 units Metformin HCl (Glucophage -) 1,000 mg PO BID@0700,1630 [facility] Last Admin: 08/12/18 18:44 Dose: 1,000 mg Metoprolol Succinate (Toprol Xl -) 100 mg PO DAILY [facility] Last Admin: 08/12/18 10:22 Dose: 100 mg Multivitamins/Minerals/Vitamin C (Tab-A-Vit -) 1 tab PO DAILY [facility] Last Admin: 08/12/18 10:22 Dose: 1 tab Nifedipine (Procardia Xl -) 30 mg PO DAILY [facility] Last Admin: 08/12/18 10:22 Dose: 30 mg Potassium Chloride (K-Dur -) 10 meq PO BID [facility] Last Admin: 08/12/18 21:00 Dose: 10 meq Tamsulosin HCl (Flomax -) 0.4 mg PO DAILY@0830 [facility] Last Admin: 08/12/18 08:44 Dose: 0.4 mg Zolpidem Tartrate (Ambien -) 5 mg PO HS PRN PRN Reason: INSOMNIA Last Admin: 08/12/18 22:20 Dose: 5 mg - Objective Vital Signs: Vital Signs Temperature 98.2 F 08/12/18 20:54 Pulse Rate 89 08/12/18 20:54 Respiratory Rate 20 10/27/18 22:30 Blood Pressure 123/80 10/27/18 20:54 O2 Sat by Pulse Oximetry (%) 95 08/12/18 22:30 Neck: Yes: WNL, Supple Cardiovascular: Yes: WNL, Regular Rate and Rhythm Respiratory: Yes: WNL, Regular, CTA Bilaterally Gastrointestinal: Yes: WNL, Normal Bowel Sounds, Soft Labs: CBC, BMP 08/12/18 13:10 08/12/18 06:00 INR, PTT INR 1.47 (0.83-1.09) H 08/04/18 18:01 Problem List - Problems (1) Sepsis Assessment/Plan: Pt is now off antibxs DC planning Spoke to pt at length will probably benefit from STR PT eval Urine culture (+) for VRE faecium Blood cultures remain negative Code(s): A41.9 - SEPSIS, UNSPECIFIED ORGANISM Qualifiers: Sepsis type: sepsis due to unspecified organism Qualified Code(s): A41.9 - Sepsis, unspecified organism (2) 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 Assessment/Plan: As per onco Code(s): C79.9 - SECONDARY MALIGNANT NEOPLASM OF UNSPECIFIED SITE; C67.9 - MALIGNANT NEOPLASM OF BLADDER, UNSPECIFIED (3) Anemia Assessment/Plan: Monitor H/H S/P transfusion PRBC's Code(s): D64.9 - ANEMIA, UNSPECIFIED Qualifiers: Anemia type: due to chronic kidney disease Chronic kidney disease stage: stage 3 (moderate) Qualified Code(s): N18.3 - Chronic kidney disease, stage 3 (moderate); D63.1 - Anemia in chronic kidney disease (4) Diabetes Assessment/Plan: Cont metformin/sliding scale w/ coverage Code(s): E11.9 - TYPE 2 DIABETES MELLITUS WITHOUT COMPLICATIONS (5) Hypertension Code(s): I10 - ESSENTIAL (PRIMARY) HYPERTENSION Qualifiers: Hypertension type: other secondary hypertension Qualified Code(s): I15.8 - Other secondary hypertension (6) HLD (hyperlipidemia) Code(s): E78.5 - HYPERLIPIDEMIA, UNSPECIFIED
[2018-08-13] MEDS: ACETAMINOPHEN 325 MG TABLET (FP) PO PRN (02:52)
[2018-08-13] MEDS: DOCUSATE SODIUM 100 MG CAPSULE (FP) PO SCH ×3 (05:08→21:42)
[2018-08-13] MEDS: INSULIN SLIDING SCALE (NOVOLOG) 1 VIAL SQ SCH ×4 (06:07→21:43)
[2018-08-13] MEDS: metFORMIN HCL 500 MG TABLET (FP) PO SCH ×2 (06:08→18:04)
[2018-08-13] MEDS: POTASSIUM CHLORIDE TABS 10 MEQ TABLET.ER (FP) PO SCH ×2 (09:37→21:43)
[2018-08-13] MEDS: MULTIVITAMINS (DAILY MVI) TABLET (FP) PO SCH (09:37)
[2018-08-13] MEDS: TAMSULOSIN HCL 0.4 MG CAP PO SCH (09:37)
[2018-08-13] MEDS: HEPARIN NA (PORCINE) 5,000 UNITS/ML 1ML VIAL SQ SCH ×2 (09:37→21:43)
[2018-08-13] MEDS: FINASTERIDE 5 MG TABLET (FP) PO SCH (09:37)
[2018-08-13] MEDS: NIFEdipine E.R. 30 MG TABLET (FP) PO SCH (09:37)
--- NOTE | 2018-08-13 12:44 | PN ---
Progress Note, Physician History of Present Illness: No new complaints. Diarrhea resolving off antibiotics. Remains afebrile, without acute distress. - Current Medication List Current Medications: Active Medications Acetaminophen (Tylenol -) 650 mg PO Q6H PRN PRN Reason: FEVER Last Admin: 08/13/18 02:52 Dose: 650 mg Docusate Sodium (Colace -) 100 mg PO TID [facility] Last Admin: 08/13/18 05:08 Dose: Not Given Finasteride (Proscar -) 5 mg PO DAILY [facility] Last Admin: 08/13/18 09:37 Dose: 5 mg Heparin Sodium (Porcine) (Heparin -) 5,000 unit SQ BID [facility] Last Admin: 08/13/18 09:37 Dose: 5,000 unit Sodium Chloride (Normal Saline -) 1,000 mls @ 83 mls/hr IV ASDIR [facility] Last Admin: 08/12/18 22:20 Dose: 83 mls/hr Insulin Aspart (Novolog Vial Sliding Scale -) 1 vial SQ ACHS [facility]; Protocol Last Admin: 08/13/18 12:21 Dose: 2 units Metformin HCl (Glucophage -) 1,000 mg PO BID@0700,1630 [facility] Last Admin: 08/13/18 06:08 Dose: 1,000 mg Metoprolol Succinate (Toprol Xl -) 100 mg PO DAILY [facility] Last Admin: 08/13/18 09:37 Dose: 100 mg Multivitamins/Minerals/Vitamin C (Tab-A-Vit -) 1 tab PO DAILY [facility] Last Admin: 08/13/18 09:37 Dose: 1 tab Nifedipine (Procardia Xl -) 30 mg PO DAILY [facility] Last Admin: 08/13/18 09:37 Dose: 30 mg Potassium Chloride (K-Dur -) 10 meq PO BID [facility] Last Admin: 08/13/18 09:37 Dose: 10 meq Tamsulosin HCl (Flomax -) 0.4 mg PO DAILY@0830 [facility] Last Admin: 08/13/18 09:37 Dose: 0.4 mg Zolpidem Tartrate (Ambien -) 5 mg PO HS PRN PRN Reason: INSOMNIA Last Admin: 08/12/18 22:20 Dose: 5 mg - Objective Vital Signs: Vital Signs Temperature 97.9 F 08/13/18 06:00 Pulse Rate 77 08/13/18 06:00 Respiratory Rate 20 08/13/18 06:00 Blood Pressure 119/75 08/13/18 06:00 O2 Sat by Pulse Oximetry (%) 95 08/12/18 22:30 Constitutional: Yes: No Distress, Calm Cardiovascular: Yes: Regular Rate and Rhythm Respiratory: Yes: Regular Gastrointestinal: Yes: Normal Bowel Sounds, Soft Genitourinary: Yes: Rahman Present Extremities: Yes: WNL Neurological: Yes: Alert Labs: CBC, BMP 08/12/18 13:10 08/12/18 06:00 INR, PTT INR 1.47 (0.83-1.09) H 08/04/18 18:01 Microbiology 08/07/18 06:20 Blood - Peripheral Venous Blood Culture - Final NO GROWTH AFTER 5 DAYS INCUBATION 08/07/18 06:20 Blood - Peripheral Venous Blood Culture - Final NO GROWTH AFTER 5 DAYS INCUBATION 08/04/18 18:01 Blood - Peripheral Venous Blood Culture - Final NO GROWTH AFTER 5 DAYS INCUBATION 08/04/18 18:01 Blood - Peripheral Venous Blood Culture - Final NO GROWTH AFTER 5 DAYS INCUBATION 08/07/18 21:30 Stool Clostridium difficile Antigen (OK) - Final 08/07/18 21:30 Stool Clostridium difficile Toxin Assay - Final 08/04/18 18:41 Urine - Urine Clean Catch Urine Culture - Final Vr Ec Faecium 08/04/18 18:01 Stool Clostridium difficile Antigen (OK) - Final 08/04/18 18:01 Stool Clostridium difficile Toxin Assay - Final Assessment/Plan UTI s/p Sepsis Metastatic Bladder CA Urinary retention s/p rahman reinsertion Diarrhea - resolving -- continue monitor off antibiotics -- urology/oncology following
--- NOTE | 2018-08-13 13:53 | EKG ---
Test Reason : Blood Pressure : / mmHG Vent. Rate : 084 BPM Atrial Rate : 084 BPM P-R Int : 204 ms QRS Dur : 100 ms QT Int : 376 ms P-R-T Axes : 058 -54 001 degrees QTc Int : 444 ms SINUS RHYTHM WITH MARKED SINUS ARRHYTHMIA WITH PREMATURE ATRIAL COMPLEXES LEFT AXIS DEVIATION INFERIOR INFARCT , AGE UNDETERMINED ABNORMAL ECG WHEN COMPARED WITH ECG OF 07-AUG-2018 11:12, PREMATURE ATRIAL COMPLEXES ARE NOW PRESENT CRITERIA FOR SEPTAL INFARCT ARE NO LONGER PRESENT INFERIOR INFARCT IS NOW PRESENT NONSPECIFIC T WAVE ABNORMALITY NOW EVIDENT IN INFERIOR LEADS Confirmed by MD Gilmar, Valentín ([id number]) on 08/13/2018 1:53:16 PM Referred By: Rona SHAW Confirmed By:Valentín Schafer MD
[2018-08-13] MEDS ORDERED: INSULIN (NOVOLOG) ASPART 100 UNITS/ML 10ML VIAL ONE (18:02)
[2018-08-13] MEDS: SODIUM CHLORIDE 1,000 ML IV SCH ×2 (18:08→23:09)
--- NOTE | 2018-08-13 18:48 | PN ---
Progress Note, Physician History of Present Illness: Pt feeling very weak and states that he is unsteady and has difficulty ambulating - Current Medication List Current Medications: Active Medications Acetaminophen (Tylenol -) 650 mg PO Q6H PRN PRN Reason: FEVER Last Admin: 08/13/18 02:52 Dose: 650 mg Docusate Sodium (Colace -) 100 mg PO TID [facility] Last Admin: 08/13/18 13:48 Dose: Not Given Finasteride (Proscar -) 5 mg PO DAILY [facility] Last Admin: 08/13/18 09:37 Dose: 5 mg Heparin Sodium (Porcine) (Heparin -) 5,000 unit SQ BID [facility] Last Admin: 08/13/18 09:37 Dose: 5,000 unit Sodium Chloride (Normal Saline -) 1,000 mls @ 83 mls/hr IV ASDIR [facility] Last Admin: 08/13/18 18:08 Dose: 83 mls/hr Insulin Aspart (Novolog Vial Sliding Scale -) 1 vial SQ ACHS [facility]; Protocol Last Admin: 08/13/18 18:05 Dose: 2 units Metformin HCl (Glucophage -) 1,000 mg PO BID@0700,1630 [facility] Last Admin: 08/13/18 18:04 Dose: 1,000 mg Metoprolol Succinate (Toprol Xl -) 100 mg PO DAILY [facility] Last Admin: 08/13/18 09:37 Dose: 100 mg Multivitamins/Minerals/Vitamin C (Tab-A-Vit -) 1 tab PO DAILY [facility] Last Admin: 08/13/18 09:37 Dose: 1 tab Nifedipine (Procardia Xl -) 30 mg PO DAILY [facility] Last Admin: 08/13/18 09:37 Dose: 30 mg Potassium Chloride (K-Dur -) 10 meq PO BID [facility] Last Admin: 08/13/18 09:37 Dose: 10 meq Tamsulosin HCl (Flomax -) 0.4 mg PO DAILY@0830 [facility] Last Admin: 08/13/18 09:37 Dose: 0.4 mg Zolpidem Tartrate (Ambien -) 5 mg PO HS PRN PRN Reason: INSOMNIA Last Admin: 08/12/18 22:20 Dose: 5 mg - Objective Vital Signs: Vital Signs Temperature 97.9 F 08/13/18 14:23 Pulse Rate 84 08/13/18 14:23 Respiratory Rate 20 08/13/18 14:23 Blood Pressure 123/97 08/13/18 14:23 O2 Sat by Pulse Oximetry (%) 95 08/13/18 09:00 Neck: Yes: WNL, Supple Cardiovascular: Yes: WNL, Regular Rate and Rhythm Respiratory: Yes: WNL, Regular, CTA Bilaterally Gastrointestinal: Yes: WNL, Normal Bowel Sounds, Soft Labs: CBC, BMP 08/12/18 13:10 08/12/18 06:00 INR, PTT INR 1.47 (0.83-1.09) H 08/04/18 18:01 Problem List - Problems (1) Sepsis Assessment/Plan: Pt is now off antibxs DC planning Spoke to pt at length will probably benefit from STR PT eval Urine culture (+) for VRE faecium Blood cultures remain negative Code(s): A41.9 - SEPSIS, UNSPECIFIED ORGANISM Qualifiers: Sepsis type: sepsis due to unspecified organism Qualified Code(s): A41.9 - Sepsis, unspecified organism (2) 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 Assessment/Plan: As per onco Code(s): C79.9 - SECONDARY MALIGNANT NEOPLASM OF UNSPECIFIED SITE; C67.9 - MALIGNANT NEOPLASM OF BLADDER, UNSPECIFIED (3) Anemia Assessment/Plan: Monitor H/H S/P transfusion PRBC's Code(s): D64.9 - ANEMIA, UNSPECIFIED Qualifiers: Anemia type: due to chronic kidney disease Chronic kidney disease stage: stage 3 (moderate) Qualified Code(s): N18.3 - Chronic kidney disease, stage 3 (moderate); D63.1 - Anemia in chronic kidney disease (4) Diabetes Code(s): E11.9 - TYPE 2 DIABETES MELLITUS WITHOUT COMPLICATIONS (5) Hypertension Code(s): I10 - ESSENTIAL (PRIMARY) HYPERTENSION Qualifiers: Hypertension type: other secondary hypertension Qualified Code(s): I15.8 - Other secondary hypertension (6) HLD (hyperlipidemia) Code(s): E78.5 - HYPERLIPIDEMIA, UNSPECIFIED
--- NOTE | 2018-08-13 20:47 | PN ---
Progress Note (short form) - Note Progress Note: 78 y/o male with KARTHIKEYAN, Hypokalemia, Current Medications Acetaminophen (Tylenol -) 650 mg PO Q6H PRN PRN Reason: FEVER Last Admin: 08/13/18 02:52 Dose: 650 mg Docusate Sodium (Colace -) 100 mg PO TID [facility] Last Admin: 08/13/18 13:48 Dose: Not Given Finasteride (Proscar -) 5 mg PO DAILY [facility] Last Admin: 08/13/18 09:37 Dose: 5 mg Heparin Sodium (Porcine) (Heparin -) 5,000 unit SQ BID [facility] Last Admin: 08/13/18 09:37 Dose: 5,000 unit Sodium Chloride (Normal Saline -) 1,000 mls @ 83 mls/hr IV ASDIR [facility] Last Admin: 08/13/18 18:08 Dose: 83 mls/hr Insulin Aspart (Novolog Vial Sliding Scale -) 1 vial SQ ACHS [facility]; Protocol Last Admin: 08/13/18 18:05 Dose: 2 units Metformin HCl (Glucophage -) 1,000 mg PO BID@0700,1630 [facility] Last Admin: 08/13/18 18:04 Dose: 1,000 mg Metoprolol Succinate (Toprol Xl -) 100 mg PO DAILY [facility] Last Admin: 08/13/18 09:37 Dose: 100 mg Multivitamins/Minerals/Vitamin C (Tab-A-Vit -) 1 tab PO DAILY [facility] Last Admin: 08/13/18 09:37 Dose: 1 tab Nifedipine (Procardia Xl -) 30 mg PO DAILY [facility] Last Admin: 08/13/18 09:37 Dose: 30 mg Potassium Chloride (K-Dur -) 10 meq PO BID [facility] Last Admin: 08/13/18 09:37 Dose: 10 meq Tamsulosin HCl (Flomax -) 0.4 mg PO DAILY@0830 [facility] Last Admin: 08/13/18 09:37 Dose: 0.4 mg Zolpidem Tartrate (Ambien -) 5 mg PO HS PRN PRN Reason: INSOMNIA Last Admin: 08/12/18 22:20 Dose: 5 mg Last Vital Signs Temp Pulse Resp BP Pulse Ox 97.9 F 84 20 123/97 95 08/13/18 14:23 08/13/18 14:23 08/13/18 14:23 08/13/18 14:23 08/13/18 09:00 lungs clear heart reg abd soft nontender ext no edema CBC, BMP 08/12/18 13:10 08/12/18 06:00 CBC, BMP 08/11/18 12:23 08/12/18 06:00 IMP- ckd k replaced anemia Plan- continue same rx
[2018-08-13] MEDS: ZOLPIDEM TARTRATE 5 MG TABLET PO PRN (21:43)
--- NOTE | 2018-08-13 22:29 | PN ---
Progress Note (short form) - Note Progress Note: Patient feeling well, with no complaints at this time. No fevers last 24 hours Inpatient Meds reviewed. Current Medications Generic Name Dose Route Start Last Admin Trade Name Freq PRN Reason Stop Dose Admin Acetaminophen 650 mg 08/05/18 03:11 08/13/18 02:52 Tylenol - PO 650 mg Q6H PRN Administration FEVER Docusate Sodium 100 mg 08/05/18 06:00 08/13/18 21:42 Colace - PO Not Given TID [facility] Finasteride 5 mg 08/05/18 10:00 08/13/18 09:37 Proscar - PO 5 mg DAILY [facility] Administration Heparin Sodium (Porcine) 5,000 unit 08/05/18 10:00 08/13/18 21:43 Heparin - SQ 5,000 unit BID [facility] Administration Sodium Chloride 1,000 mls @ 83 mls/hr 08/05/18 12:15 08/13/18 18:08 Normal Saline - IV 83 mls/hr ASDIR [facility] Administration Insulin Aspart 1 vial 08/05/18 07:00 08/13/18 21:43 Novolog Vial Sliding Scale - SQ Not Given ACHS [facility] Protocol Metformin HCl 1,000 mg 08/05/18 07:00 08/13/18 18:04 Glucophage - PO 1,000 mg BID@0700,1630 [facility] Administration Metoprolol Succinate 100 mg 08/05/18 10:00 08/13/18 09:37 Toprol Xl - PO 100 mg DAILY [facility] Administration Multivitamins/Minerals/Vitamin C 1 tab 08/05/18 10:00 08/13/18 09:37 Tab-A-Vit - PO 1 tab DAILY [facility] Administration Nifedipine 30 mg 08/05/18 10:00 08/13/18 09:37 Procardia Xl - PO 30 mg DAILY [facility] Administration Potassium Chloride 10 meq 08/10/18 22:00 08/13/18 21:43 K-Dur - PO 10 meq BID [facility] Administration Tamsulosin HCl 0.4 mg 08/05/18 08:30 08/13/18 09:37 Flomax - PO 0.4 mg DAILY@0830 [facility] Administration Zolpidem Tartrate 5 mg 08/05/18 03:24 08/13/18 21:43 Ambien - PO 5 mg HS PRN Administration INSOMNIA On Examination: Last Vital Signs Temp Pulse Resp BP Pulse Ox 97.8 F 88 29 H 119/76 95 08/13/18 17:40 08/13/18 17:40 08/13/18 17:40 08/13/18 17:40 08/13/18 09:00 General: In no acute distress, supine in bed. Extremities: No pallor or icterus. No pedal edema. No palpable lymphadenopathy. CVS: S1, S2, regular, no gallop or murmur. Chest: good air entry bilaterally, clear Abdomen: Non-distended, non-tender, no palpable organomegaly. Neuro: Alert, oriented, non-focal. Labs: CBC, BMP 08/12/18 13:10 08/12/18 06:00 Microbiology 08/07/18 06:20 Blood - Peripheral Venous Blood Culture - Final NO GROWTH AFTER 5 DAYS INCUBATION 08/07/18 06:20 Blood - Peripheral Venous Blood Culture - Final NO GROWTH AFTER 5 DAYS INCUBATION 08/04/18 18:01 Blood - Peripheral Venous Blood Culture - Final NO GROWTH AFTER 5 DAYS INCUBATION 08/04/18 18:01 Blood - Peripheral Venous Blood Culture - Final NO GROWTH AFTER 5 DAYS INCUBATION 08/07/18 21:30 Stool Clostridium difficile Antigen (OK) - Final 08/07/18 21:30 Stool Clostridium difficile Toxin Assay - Final 08/04/18 18:41 Urine - Urine Clean Catch Urine Culture - Final Vr Ec Faecium 08/04/18 18:01 Stool Clostridium difficile Antigen (OK) - Final 08/04/18 18:01 Stool Clostridium difficile Toxin Assay - Final Assessment. Patient known to Dr. Vance, has received chemotherapy (Carbo/Gallitzin March to June 2018) for metastatic bladder cancer, currently held. Presented to the emergency department with weakness, fever, fatigue, near syncope and diarrhea. Treated for VRE urinary infection. Now resolved - off Abics. Will follow with Dr Vance following discharge.
[2018-08-14] MEDS: ACETAMINOPHEN 325 MG TABLET (FP) PO PRN (02:36)
[2018-08-14] MEDS: DOCUSATE SODIUM 100 MG CAPSULE (FP) PO SCH ×3 (05:10→21:32)
[2018-08-14 06:20] LABS: BASO % 0.5 % (0-2.0); EOS % 0.6 % (0-4.5); HEMATOCRIT 20.8 % (35.4-49); LYMPH % 14.3 % (8-40); MCH 21.7 pg (25.7-33.7); MCHC 31.9 g/dl (32.0-35.9); MEAN CELL VOLUME 68.2 fl (80-96); MEAN PLT VOLUME 9.7 fl (7.5-11.1); MONO % 6.2 % (3.8-10.2); NEUT % 78.4 % (42.8-82.8); PLATELET COUNT 230 K/MM3 (134-434); RBC 3.04 M/mm3 (4.00-5.60); RDW 27.3 % (11.9-15.9); WHITE BLOOD COUNT 6.9 K/mm3 (4.0-10.0)
[2018-08-14] MEDS: metFORMIN HCL 500 MG TABLET (FP) PO SCH ×2 (06:20→18:01)
[2018-08-14] MEDS: INSULIN SLIDING SCALE (NOVOLOG) 1 VIAL SQ SCH ×4 (06:20→21:32)
[2018-08-14 07:12] LABS: ALBUMIN 1.8 g/dl (3.4-5.0); ALK PHOS 1008 U/L (45-117); ANION GAP 7 MMOL/L (8-16); BILIRUBIN,TOTAL 1.2 mg/dL (0.2-1); BLOOD UREA NITROGEN 10 mg/dL (7-18); CALCIUM 7.6 mg/dL (8.5-10.1); CHLORIDE 105 mmol/L (98-107); CO2 23 mmol/L (21-32); CREATININE 0.4 mg/dL (0.55-1.3); GLUCOSE,RANDOM 118 mg/dL (74-106); POTASSIUM 3.8 mmol/L (3.5-5.1); SGOT/AST 50 U/L (15-37); SGPT/ALT 37 U/L (13-61); SODIUM 135 mmol/L (136-145); TOT PROT 5.5 g/dl (6.4-8.2)
[2018-08-14 07:24] LABS: HEMOGLOBIN 6.6 GM/dL (11.7-16.9)
[2018-08-14] MEDS: HEPARIN NA (PORCINE) 5,000 UNITS/ML 1ML VIAL SQ SCH ×2 (09:58→21:29)
[2018-08-14] MEDS: POTASSIUM CHLORIDE TABS 10 MEQ TABLET.ER (FP) PO SCH ×2 (09:58→21:29)
[2018-08-14] MEDS: TAMSULOSIN HCL 0.4 MG CAP PO SCH (09:58)
[2018-08-14] MEDS: FINASTERIDE 5 MG TABLET (FP) PO SCH (09:58)
[2018-08-14] MEDS: MULTIVITAMINS (DAILY MVI) TABLET (FP) PO SCH (09:58)
[2018-08-14] MEDS: NIFEdipine E.R. 30 MG TABLET (FP) PO SCH (09:58)
--- NOTE | 2018-08-14 12:12 | PN ---
Progress Note, Physician History of Present Illness: stable no new issues dirrhoea resolving off of abx - Current Medication List Current Medications: Active Medications Acetaminophen (Tylenol -) 650 mg PO Q6H PRN PRN Reason: FEVER Last Admin: 08/14/18 02:36 Dose: 650 mg Docusate Sodium (Colace -) 100 mg PO TID [facility] Last Admin: 08/14/18 05:10 Dose: Not Given Finasteride (Proscar -) 5 mg PO DAILY [facility] Last Admin: 08/14/18 09:58 Dose: 5 mg Heparin Sodium (Porcine) (Heparin -) 5,000 unit SQ BID [facility] Last Admin: 08/14/18 09:58 Dose: 5,000 unit Sodium Chloride (Normal Saline -) 1,000 mls @ 83 mls/hr IV ASDIR [facility] Last Admin: 08/13/18 23:09 Dose: 83 mls/hr Insulin Aspart (Novolog Vial Sliding Scale -) 1 vial SQ ACHS [facility]; Protocol Last Admin: 08/14/18 12:08 Dose: Not Given Metformin HCl (Glucophage -) 1,000 mg PO BID@0700,1630 [facility] Last Admin: 08/14/18 06:20 Dose: 1,000 mg Metoprolol Succinate (Toprol Xl -) 100 mg PO DAILY [facility] Last Admin: 08/14/18 09:58 Dose: 100 mg Multivitamins/Minerals/Vitamin C (Tab-A-Vit -) 1 tab PO DAILY [facility] Last Admin: 08/14/18 09:58 Dose: 1 tab Nifedipine (Procardia Xl -) 30 mg PO DAILY [facility] Last Admin: 08/14/18 09:58 Dose: 30 mg Potassium Chloride (K-Dur -) 10 meq PO BID [facility] Last Admin: 08/14/18 09:58 Dose: 10 meq Tamsulosin HCl (Flomax -) 0.4 mg PO DAILY@0830 [facility] Last Admin: 08/14/18 09:58 Dose: 0.4 mg - Objective Vital Signs: Vital Signs Temperature 97.8 F 08/14/18 07:07 Pulse Rate 78 08/14/18 07:07 Respiratory Rate 20 08/14/18 07:07 Blood Pressure 124/85 08/14/18 07:07 O2 Sat by Pulse Oximetry (%) 95 08/13/18 22:00 Constitutional: Yes: No Distress, Calm Cardiovascular: Yes: Regular Rate and Rhythm Respiratory: Yes: Regular, CTA Bilaterally Gastrointestinal: Yes: Normal Bowel Sounds, Soft Genitourinary: Yes: Galarza Present Musculoskeletal: Yes: WNL Extremities: Yes: WNL Neurological: Yes: Alert, Oriented Psychiatric: Yes: Alert, Oriented Labs: CBC, BMP 08/14/18 05:30 08/14/18 05:30 INR, PTT INR 1.47 (0.83-1.09) H 08/04/18 18:01 Assessment/Plan sepsis fever uti weakness ca bladder plan physio stable nutrition rest as per the team
--- NOTE | 2018-08-14 15:26 | CON.GI ---
Consult Consult Specialty:: GI: Dr. Padron for Dr. Dorman Referred by:: Dr. Andrade Reason for Consultation:: Diarrhea - History of Present Illness Chief Complaint: Diarrhea starting today History of Present Illness: 78M with multiple medical problems admitted 08/05/18 for evaluation of weakness. It is conflicting as to how long diarrhea has been occurring. he had 5 bowel movements today per nursing, 2 per the patient himself. He states that the last bowel movement he had was more firm. he denies abdominal pain. He is followed quite regularly By Dr. Dorman, who has performed Multiple colonoscopies as well as endoscopies. Mr. Corley believes that his last colonoscopy was [address] years [address] Dorman saw him in office over the summer. He alludes to having undergone capsule endoscopy in the past as well, having been referred by Dr. Dorman. Stool C. Diff toxin and antigen were negative. - History Source History Provided By: Patient, Family Member Limitations to Obtaining History: No Limitations - Past Medical History Cardio/Vascular: Yes: HTN, Hyperlipdemia Hepatobiliary: Yes: Cirrhosis (by imaging) Renal/: Yes: Renal Failure, BPH, Cancer (Stage IV Bladder Cancer), Hematuria Heme/Onc: Yes: Anemia (Thalassemia) Endocrine: Yes: Diabetes Mellitus - Past Surgical History Past Surgical History: Yes: Stent (urinary), TURP Additional Surgical History: Nephrostomy tubes - Alcohol/Substance Use Hx Alcohol Use: No History of Substance Use: reports: None - Smoking History Smoking history: Never smoked Have you smoked in the past 12 months: No Aproximately how many cigarettes per day: 0 If you are a former smoker, when did you quit?: 1989 - Social History Usual Living Arrangement: With Spouse ADL: Independent Place of : [facility] History of Recent Travel: No Home Medications - Allergies Allergies/Adverse Reactions: Allergies Allergy/AdvReac Type Severity Reaction Status Date / Time No Known Allergies Allergy Verified 08/04/18 17:16 - Home Medications Home Medications: Ambulatory Orders Finasteride [Proscar -] 5 mg PO DAILY 06/25/18 Metformin HCl [Glucophage] 1,000 mg PO BID 06/25/18 Metoclopramide HCl 5 mg PO BID PRN 06/25/18 Metoprolol Succinate [Toprol XL -] 100 mg PO DAILY 06/25/18 Multivit-Min/FA/Lycopen/Lutein [Centrum Silver Men Tablet] 1 each PO DAILY 06/25 Nifedipine [Procardia Xl] 30 mg PO DAILY 06/25/18 Silodosin [Rapaflo] 8 mg PO DAILY 06/25/18 Zolpidem Tartrate [Ambien] 5 mg PO HS 06/25/18 Ertapenem Sodium [Invanz -] 1 gm IVPB DAILY vial 07/06/18 Zolpidem Tartrate [Ambien] 5 mg PO HS PRN #30 tablet MDD 1 07/06/18 Docusate Sodium [Colace -] 100 mg PO TID capsule 08/01/18 Zolpidem Tartrate [Ambien] 5 mg PO HS PRN #30 tablet MDD 1 08/01/18 metFORMIN HCL [Glucophage -] 500 mg PO BID@0700,1630 tablet 08/01/18 Family Disease History - Family Disease History Family Disease History: Other: Father (: 45: "heart problem"), Mother ( : 80: COPD), Brother (1, 80's, unclear cause), Son (1, healthy), Daughter ( 1, healthy) Other Family History: No family history of colorectal cancer Review of Systems - Review of Systems Constitutional: denies: Fever Cardiovascular: denies: Chest Pain Respiratory: denies: Cough, SOB Gastrointestinal: denies: Abdominal Pain Physical Exam-GI Vital Signs: Vital Signs Temperature 98.0 F 08/14/18 14:59 Pulse Rate 86 08/14/18 14:59 Respiratory Rate 20 08/14/18 14:59 Blood Pressure 134/91 08/14/18 14:59 O2 Sat by Pulse Oximetry (%) 95 08/13/18 22:00 Constitutional: Yes: Calm Eyes: No: Sclera Icterus Cardiovascular: Yes: Regular Rate and Rhythm. No: Murmur Respiratory: Yes: CTA Bilaterally Gastrointestinal Inspection: No: Distention ...Auscultate: Yes: Normoactive Bowel Sounds ...Palpate: Yes: Hepatomegaly. No: Tenderness ...Percussion: No: Tympanitic ...Rectal Exam: Yes: Other (No external lesions, no masses, guaiac negative light brown stool) Edema: No (No LE edema) Neurological: Yes: Alert Labs: CBC, BMP 08/14/18 05:30 08/14/18 05:30 INR, PTT INR 1.47 (0.83-1.09) H 08/04/18 18:01 Hepatic Panel Total Bilirubin 1.2 mg/dL (0.2-1) H 08/14/18 05:30 AST 50 U/L (15-37) H 08/14/18 05:30 ALT 37 U/L (13-61) 08/14/18 05:30 Alkaline Phosphatase 1008 U/L (45-117) H 08/14/18 05:30 Albumin 1.8 g/dl (3.4-5.0) L 08/14/18 05:30 Problem List - Problems (1) Diarrhea Assessment/Plan: Acute in onset. C. Diff negative. ? if antibiotic related Check O&P, culture Lomotil PO x 1 ordered Check FUA for fecal retention Code(s): R19.7 - DIARRHEA, UNSPECIFIED
[2018-08-14] MEDS ORDERED: DIPHENOXYLATE 2.5/ATROPINE.025 1 COMBO TABLET PO ONE (15:57)
[2018-08-14] MEDS: SODIUM CHLORIDE 1,000 ML IV SCH (15:58)
--- NOTE | 2018-08-14 21:32 | PN ---
Progress Note (short form) - Note Progress Note: Patient seen and examined feels slightly better AFVSS Cor: RSR, No murmurs, No gallops Lungs:decreased at bases Abd: Soft, Normal bowel sounds, No organomegaly Labs/Meds reviewed A/P 78 year old male, with a significant past medical history of diabetes, hypertension, metastatic bladder cancer (last chemo Jun 22 2018), thoracic aortic aneurysm, and cirrhosis, who presents to the emergency department with weakness, fever, fatigue, near syncope and diarrhea. VRE urinary infection hydronephrosis On linezolid HAs rahman in place transfuse PRBCs for hgb <7 Recent diarrhes/c.diff - GI input appreciated 1 formed BM today Mild abdominal distention AXR awaited
[2018-08-14] MEDS ORDERED: ZOLPIDEM TARTRATE 5 MG TABLET PO PRN (22:00)
--- NOTE | 2018-08-14 22:56 | PN ---
Progress Note, Physician History of Present Illness: No new complaints - Current Medication List Current Medications: Active Medications Acetaminophen (Tylenol -) 650 mg PO Q6H PRN PRN Reason: FEVER Last Admin: 08/14/18 02:36 Dose: 650 mg Docusate Sodium (Colace -) 100 mg PO TID [facility] Last Admin: 08/14/18 21:32 Dose: Not Given Finasteride (Proscar -) 5 mg PO DAILY [facility] Last Admin: 08/14/18 09:58 Dose: 5 mg Heparin Sodium (Porcine) (Heparin -) 5,000 unit SQ BID [facility] Last Admin: 08/14/18 21:29 Dose: 5,000 unit Sodium Chloride (Normal Saline -) 1,000 mls @ 83 mls/hr IV ASDIR [facility] Last Admin: 08/14/18 15:58 Dose: Not Given Insulin Aspart (Novolog Vial Sliding Scale -) 1 vial SQ ACHS [facility]; Protocol Last Admin: 08/14/18 21:32 Dose: Not Given Metformin HCl (Glucophage -) 1,000 mg PO BID@0700,1630 [facility] Last Admin: 08/14/18 18:01 Dose: 1,000 mg Metoprolol Succinate (Toprol Xl -) 100 mg PO DAILY [facility] Last Admin: 08/14/18 09:58 Dose: 100 mg Multivitamins/Minerals/Vitamin C (Tab-A-Vit -) 1 tab PO DAILY [facility] Last Admin: 08/14/18 09:58 Dose: 1 tab Nifedipine (Procardia Xl -) 30 mg PO DAILY [facility] Last Admin: 08/14/18 09:58 Dose: 30 mg Potassium Chloride (K-Dur -) 10 meq PO BID [facility] Last Admin: 08/14/18 21:29 Dose: 10 meq Tamsulosin HCl (Flomax -) 0.4 mg PO DAILY@0830 [facility] Last Admin: 08/14/18 09:58 Dose: 0.4 mg Zolpidem Tartrate (Ambien -) 5 mg PO HS PRN PRN Reason: INSOMNIA - Objective Vital Signs: Vital Signs Temperature 98.6 F 08/14/18 17:16 Pulse Rate 85 08/14/18 17:16 Respiratory Rate 20 08/14/18 17:16 Blood Pressure 136/87 08/14/18 17:16 O2 Sat by Pulse Oximetry (%) 95 08/14/18 09:00 Neck: Yes: WNL, Supple Cardiovascular: Yes: WNL, Regular Rate and Rhythm Respiratory: Yes: WNL, Regular, CTA Bilaterally Gastrointestinal: Yes: WNL, Normal Bowel Sounds, Soft Labs: CBC, BMP 08/14/18 05:30 08/14/18 05:30 INR, PTT INR 1.47 (0.83-1.09) H 08/04/18 18:01 Problem List - Problems (1) Sepsis Assessment/Plan: Cont IV antibxs Urine culture had been (+) for VRE faecium Blood cultures remain negative Code(s): A41.9 - SEPSIS, UNSPECIFIED ORGANISM Qualifiers: Sepsis type: sepsis due to unspecified organism Qualified Code(s): A41.9 - Sepsis, unspecified organism (2) 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 Assessment/Plan: Pt needs PT to improve functional status Cont proscar/flomax Cont rahman cath Code(s): C79.9 - SECONDARY MALIGNANT NEOPLASM OF UNSPECIFIED SITE; C67.9 - MALIGNANT NEOPLASM OF BLADDER, UNSPECIFIED (3) Anemia Code(s): D64.9 - ANEMIA, UNSPECIFIED Qualifiers: Anemia type: due to chronic kidney disease Chronic kidney disease stage: stage 3 (moderate) Qualified Code(s): N18.3 - Chronic kidney disease, stage 3 (moderate); D63.1 - Anemia in chronic kidney disease (4) Diabetes Code(s): E11.9 - TYPE 2 DIABETES MELLITUS WITHOUT COMPLICATIONS (5) Hypertension Code(s): I10 - ESSENTIAL (PRIMARY) HYPERTENSION Qualifiers: Hypertension type: other secondary hypertension Qualified Code(s): I15.8 - Other secondary hypertension (6) HLD (hyperlipidemia) Code(s): E78.5 - HYPERLIPIDEMIA, UNSPECIFIED
[2018-08-15] MEDS: metFORMIN HCL 500 MG TABLET (FP) PO SCH ×2 (06:16→17:39)
[2018-08-15] MEDS: INSULIN SLIDING SCALE (NOVOLOG) 1 VIAL SQ SCH ×4 (06:17→21:31)
[2018-08-15] MEDS: DOCUSATE SODIUM 100 MG CAPSULE (FP) PO SCH ×3 (06:17→21:31)
[2018-08-15] MEDS: SODIUM CHLORIDE 1,000 ML IV SCH ×3 (06:45→21:34)
[2018-08-15 07:44] LABS: BASO % 0.8 % (0-2.0); EOS % 0.5 % (0-4.5); HEMOGLOBIN 8.6 GM/dL (11.7-16.9); LYMPH % 12.6 % (8-40); MCH 23.3 pg (25.7-33.7); MCHC 32.9 g/dl (32.0-35.9); MEAN CELL VOLUME 70.8 fl (80-96); MONO % 5.6 % (3.8-10.2); NEUT % 80.5 % (42.8-82.8); PLATELET COUNT 248 K/MM3 (134-434); RBC 3.68 M/mm3 (4.00-5.60); RDW 27.6 % (11.9-15.9); WHITE BLOOD COUNT 8.1 K/mm3 (4.0-10.0)
[2018-08-15 08:24] LABS: ALBUMIN 1.9 g/dl (3.4-5.0); ALK PHOS 934 U/L (45-117); ANION GAP 11 MMOL/L (8-16); BILIRUBIN,TOTAL 1.5 mg/dL (0.2-1); BLOOD UREA NITROGEN 8 mg/dL (7-18); CALCIUM 7.6 mg/dL (8.5-10.1); CHLORIDE 102 mmol/L (98-107); CO2 24 mmol/L (21-32); CREATININE 0.3 mg/dL (0.55-1.3); GLUCOSE,RANDOM 112 mg/dL (74-106); SGOT/AST 30 U/L (15-37); SGPT/ALT 31 U/L (13-61); SODIUM 137 mmol/L (136-145); TOT PROT 5.8 g/dl (6.4-8.2)
[2018-08-15 10:30] LABS: ANISOCYTOSIS 1+; MACROCYTOSIS 0; PLATELET ESTIMATE NORMAL; TARGET CELLS 1+
[2018-08-15] MEDS: MULTIVITAMINS (DAILY MVI) TABLET (FP) PO SCH (10:56)
[2018-08-15] MEDS: FINASTERIDE 5 MG TABLET (FP) PO SCH (10:56)
[2018-08-15] MEDS: NIFEdipine E.R. 30 MG TABLET (FP) PO SCH (10:56)
[2018-08-15] MEDS: POTASSIUM CHLORIDE TABS 10 MEQ TABLET.ER (FP) PO SCH ×2 (10:56→21:26)
[2018-08-15] MEDS: TAMSULOSIN HCL 0.4 MG CAP PO SCH (10:57)
[2018-08-15] MEDS: HEPARIN NA (PORCINE) 5,000 UNITS/ML 1ML VIAL SQ SCH ×2 (10:58→21:28)
--- NOTE | 2018-08-15 11:06 | PN ---
Progress Note (short form) - Note Progress Note: patient seen and examined at bedside Feels better today Denies fever or chills waiting to be discharged to SNF-bed available tomorrow patient feels wel denies abdominal pain or distention denies feeling bloated abdominal Xray done but not read and on my read looks WNL s/p 2 units PRBCs with appropriate response Vital Signs Temperature 97.4 F L 08/15/18 09:29 Pulse Rate 82 08/15/18 09:29 Respiratory Rate 188 H 08/15/18 09:29 Blood Pressure 133/82 08/15/18 09:29 O2 Sat by Pulse Oximetry (%) 95 08/14/18 21:00 NAD lying in bed RRR S1 S2 CTAB Soft non tender non distended bowel sounds Galarza in place 08/14/18 08/15/18 08/15/18 08:50 06:30 07:00 WBC 8.1 RBC 3.68 L Hgb 8.6 L Hct 26.0 L D MCV 70.8 L MCHC 32.9 RDW 27.6 H Plt Count 248 Neutrophils % 80.5 Lymphocytes % 12.6 Monocytes % 5.6 Eosinophils % 0.5 Basophils % 0.8 Sodium 137 Potassium 4.0 Chloride 102 Carbon Dioxide 24 Anion Gap 11 BUN 8 Creatinine 0.3 L Blood Type A POSITIVE Antibody Screen Negative 08/07/18 06:20 Blood Culture - Final Blood - Peripheral Venous NO GROWTH AFTER 5 DAYS INCUBATION 08/07/18 06:20 Blood Culture - Final Blood - Peripheral Venous NO GROWTH AFTER 5 DAYS INCUBATION 08/04/18 18:01 Blood Culture - Final Blood - Peripheral Venous NO GROWTH AFTER 5 DAYS INCUBATION 08/04/18 18:01 Blood Culture - Final Blood - Peripheral Venous NO GROWTH AFTER 5 DAYS INCUBATION 08/07/18 21:30 Clostridium difficile Antigen (OK) - Final Stool Clostridium difficile Toxin Assay - Final 08/04/18 18:41 Urine Culture - Final Urine - Urine Clean Catch Vr Ec Faecium 08/04/18 18:01 Clostridium difficile Antigen (OK) - Final Stool Clostridium difficile Toxin Assay - Final No Labs today Problem List: Metastatic bladder Ca Sepsis secondary to UTI vs pyelonephritis HTN BPH DM Plan: Patient needs to have sepsis resolved and needs better performance status before restarting chemotherapy ABx per ID f/u official ABx read continue trending CBC and transfuse for Hb <7.0 Hb 8.6 from 6.6 after 2 units PRBCs for discharge tomorrow to SNF will follow
--- NOTE | 2018-08-15 11:53 | PN ---
Progress Note, Physician History of Present Illness: patient stable no complaints - Current Medication List Current Medications: Active Medications Acetaminophen (Tylenol -) 650 mg PO Q6H PRN PRN Reason: FEVER Last Admin: 08/14/18 02:36 Dose: 650 mg Docusate Sodium (Colace -) 100 mg PO TID [facility] Last Admin: 08/15/18 06:17 Dose: Not Given Finasteride (Proscar -) 5 mg PO DAILY [facility] Last Admin: 08/15/18 10:56 Dose: 5 mg Heparin Sodium (Porcine) (Heparin -) 5,000 unit SQ BID [facility] Last Admin: 08/15/18 10:58 Dose: 5,000 unit Sodium Chloride (Normal Saline -) 1,000 mls @ 83 mls/hr IV ASDIR [facility] Last Admin: 08/15/18 06:45 Dose: 83 mls/hr Insulin Aspart (Novolog Vial Sliding Scale -) 1 vial SQ ACHS [facility]; Protocol Last Admin: 08/15/18 06:17 Dose: Not Given Metformin HCl (Glucophage -) 1,000 mg PO BID@0700,1630 [facility] Last Admin: 08/15/18 06:16 Dose: 1,000 mg Metoprolol Succinate (Toprol Xl -) 100 mg PO DAILY [facility] Last Admin: 08/15/18 10:56 Dose: 100 mg Multivitamins/Minerals/Vitamin C (Tab-A-Vit -) 1 tab PO DAILY [facility] Last Admin: 08/15/18 10:56 Dose: 1 tab Nifedipine (Procardia Xl -) 30 mg PO DAILY [facility] Last Admin: 08/15/18 10:56 Dose: 30 mg Potassium Chloride (K-Dur -) 10 meq PO BID [facility] Last Admin: 08/15/18 10:56 Dose: 10 meq Tamsulosin HCl (Flomax -) 0.4 mg PO DAILY@0830 [facility] Last Admin: 08/15/18 10:57 Dose: 0.4 mg Zolpidem Tartrate (Ambien -) 5 mg PO HS PRN PRN Reason: INSOMNIA - Objective Vital Signs: Vital Signs Temperature 97.4 F L 08/15/18 09:29 Pulse Rate 82 08/15/18 09:29 Respiratory Rate 188 H 08/15/18 09:29 Blood Pressure 133/82 08/15/18 09:29 O2 Sat by Pulse Oximetry (%) 95 08/14/18 21:00 Constitutional: Yes: No Distress, Calm Cardiovascular: Yes: Regular Rate and Rhythm Respiratory: Yes: Regular, CTA Bilaterally Gastrointestinal: Yes: Normal Bowel Sounds, Soft Genitourinary: Yes: Galarza Present Musculoskeletal: Yes: WNL Extremities: Yes: WNL Neurological: Yes: Alert, Oriented Psychiatric: Yes: Alert, Oriented Labs: CBC, BMP 08/15/18 07:00 08/15/18 06:30 INR, PTT INR 1.47 (0.83-1.09) H 08/04/18 18:01 Assessment/Plan sepsis fever uti weakness ca bladder plan physio stable nutrition rest as per the team
--- NOTE | 2018-08-15 13:53 | PN ---
GI Progress Note Subjective: No diarrhea today Lomotil x 1 given yesterday AXR: no dilated bowel loops noted - Objective Vital Signs: Vital Signs Temperature 97.4 F L 08/15/18 09:29 Pulse Rate 82 08/15/18 09:29 Respiratory Rate 188 H 08/15/18 09:29 Blood Pressure 133/82 08/15/18 09:29 O2 Sat by Pulse Oximetry (%) 95 08/14/18 21:00 Constitutional: Calm Eyes: No: Sclera Icterus Cardiovascular: Yes: Regular Rate and Rhythm Respiratory: Yes: Diminished (atr bases b/l) Gastrointestinal Inspection: Yes: Distention (mildly protuberant) ...Auscultate: Yes: Normoactive Bowel Sounds ...Palpate: Yes: Hepatomegaly. No: Tenderness ...Percussion: No: Tympanitic Edema: No (No LE edema) Neurological: Yes: Alert Labs: CBC, BMP 08/15/18 07:00 08/15/18 06:30 INR, PTT INR 1.47 (0.83-1.09) H 08/04/18 18:01 Hepatic Panel Total Bilirubin 1.5 mg/dL (0.2-1) H 08/15/18 06:30 AST 30 U/L (15-37) 08/15/18 06:30 ALT 31 U/L (13-61) 08/15/18 06:30 Alkaline Phosphatase 934 U/L (45-117) H 08/15/18 06:30 Albumin 1.9 g/dl (3.4-5.0) L 08/15/18 06:30 Problem List - Problems (1) Diarrhea Assessment/Plan: Seems resolved Monitor Code(s): R19.7 - DIARRHEA, UNSPECIFIED (2) Abnormal liver function tests Assessment/Plan: Asymptomatic Rising bili and ALP: Suspect secondary to tumor burgen in the liver. Also, ? ascites on physical exam Ordered abdominal US to assess biliary tract, liver and to assess for ascites Code(s): R94.5 - ABNORMAL RESULTS OF LIVER FUNCTION STUDIES
[2018-08-15] MEDS ORDERED: PT OWN MED DRAWER 7, Y5N ONE (19:12)
--- NOTE | 2018-08-15 22:52 | PN ---
Progress Note, Physician History of Present Illness: Pt still feeling weak but no further diarrhea - Current Medication List Current Medications: Active Medications Acetaminophen (Tylenol -) 650 mg PO Q6H PRN PRN Reason: FEVER Last Admin: 08/14/18 02:36 Dose: 650 mg Docusate Sodium (Colace -) 100 mg PO TID [facility] Last Admin: 08/15/18 21:31 Dose: Not Given Finasteride (Proscar -) 5 mg PO DAILY [facility] Last Admin: 08/15/18 10:56 Dose: 5 mg Heparin Sodium (Porcine) (Heparin -) 5,000 unit SQ BID [facility] Last Admin: 08/15/18 21:28 Dose: 5,000 unit Sodium Chloride (Normal Saline -) 1,000 mls @ 83 mls/hr IV ASDIR [facility] Last Admin: 08/15/18 21:34 Dose: 83 mls/hr Insulin Aspart (Novolog Vial Sliding Scale -) 1 vial SQ ACHS [facility]; Protocol Last Admin: 08/15/18 21:31 Dose: 2 units Metformin HCl (Glucophage -) 1,000 mg PO BID@0700,1630 [facility] Last Admin: 08/15/18 17:39 Dose: 1,000 mg Metoprolol Succinate (Toprol Xl -) 100 mg PO DAILY [facility] Last Admin: 08/15/18 10:56 Dose: 100 mg Multivitamins/Minerals/Vitamin C (Tab-A-Vit -) 1 tab PO DAILY [facility] Last Admin: 08/15/18 10:56 Dose: 1 tab Nifedipine (Procardia Xl -) 30 mg PO DAILY [facility] Last Admin: 08/15/18 10:56 Dose: 30 mg Potassium Chloride (K-Dur -) 10 meq PO BID [facility] Last Admin: 08/15/18 21:26 Dose: 10 meq Tamsulosin HCl (Flomax -) 0.4 mg PO DAILY@0830 [facility] Last Admin: 08/15/18 10:57 Dose: 0.4 mg Zolpidem Tartrate (Ambien -) 5 mg PO HS PRN PRN Reason: INSOMNIA - Objective Vital Signs: Vital Signs Temperature 98.2 F 08/15/18 17:18 Pulse Rate 81 08/15/18 17:18 Respiratory Rate 20 08/15/18 17:18 Blood Pressure 127/80 08/15/18 17:18 O2 Sat by Pulse Oximetry (%) 95 08/15/18 09:00 Neck: Yes: WNL, Supple Cardiovascular: Yes: WNL, Regular Rate and Rhythm Respiratory: Yes: WNL, Regular, CTA Bilaterally Gastrointestinal: Yes: WNL, Normal Bowel Sounds, Soft Labs: CBC, BMP 08/15/18 07:00 08/15/18 06:30 INR, PTT INR 1.47 (0.83-1.09) H 08/04/18 18:01 Problem List - Problems (1) Diarrhea Assessment/Plan: Resolved after imodium Awaiting US abdomen due to levated TBili/Alkphos Wc is probably malignancy related Code(s): R19.7 - DIARRHEA, UNSPECIFIED (2) Sepsis Assessment/Plan: Pt is now off antibxs DC planning Spoke to pt at length will probably benefit from STR Urine culture had been (+) for VRE faecium Blood cultures remain negative Code(s): A41.9 - SEPSIS, UNSPECIFIED ORGANISM Qualifiers: Sepsis type: sepsis due to unspecified organism Qualified Code(s): A41.9 - Sepsis, unspecified organism (3) 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 Assessment/Plan: Pt needs PT to improve functional status DC planning to STR Cont proscar/flomax Cont rahman cath Code(s): C79.9 - SECONDARY MALIGNANT NEOPLASM OF UNSPECIFIED SITE; C67.9 - MALIGNANT NEOPLASM OF BLADDER, UNSPECIFIED (4) Anemia Assessment/Plan: Monitor H/H S/P transfusion 2 units PRBC's on 08/14/18 Code(s): D64.9 - ANEMIA, UNSPECIFIED Qualifiers: Anemia type: due to chronic kidney disease Chronic kidney disease stage: stage 3 (moderate) Qualified Code(s): N18.3 - Chronic kidney disease, stage 3 (moderate); D63.1 - Anemia in chronic kidney disease (5) Diabetes Assessment/Plan: Cont metformin/sliding scale w/ coverage Code(s): E11.9 - TYPE 2 DIABETES MELLITUS WITHOUT COMPLICATIONS (6) Hypertension Assessment/Plan: Cont metoprolol/nifedipine Code(s): I10 - ESSENTIAL (PRIMARY) HYPERTENSION Qualifiers: Hypertension type: other secondary hypertension Qualified Code(s): I15.8 - Other secondary hypertension (7) HLD (hyperlipidemia) Code(s): E78.5 - HYPERLIPIDEMIA, UNSPECIFIED
[2018-08-16] MEDS: metFORMIN HCL 500 MG TABLET (FP) PO SCH ×2 (06:08→16:51)
[2018-08-16] MEDS: DOCUSATE SODIUM 100 MG CAPSULE (FP) PO SCH ×2 (06:09→13:05)
[2018-08-16] MEDS: INSULIN SLIDING SCALE (NOVOLOG) 1 VIAL SQ SCH ×3 (06:10→16:51)
[2018-08-16 06:52] LABS: BASO % 0.7 % (0-2.0); EOS % 0.4 % (0-4.5); HEMATOCRIT 26.4 % (35.4-49); HEMOGLOBIN 8.6 GM/dL (11.7-16.9); MCH 23.4 pg (25.7-33.7); MCHC 32.5 g/dl (32.0-35.9); MEAN CELL VOLUME 71.9 fl (80-96); MEAN PLT VOLUME 9.1 fl (7.5-11.1); MONO % 5.9 % (3.8-10.2); PLATELET COUNT 277 K/MM3 (134-434); RBC 3.67 M/mm3 (4.00-5.60); RDW 27.7 % (11.9-15.9); WHITE BLOOD COUNT 8.5 K/mm3 (4.0-10.0)
[2018-08-16 07:13] LABS: ALK PHOS 1040 U/L (45-117); ANION GAP 8 MMOL/L (8-16); BILIRUBIN,TOTAL 1.5 mg/dL (0.2-1); BLOOD UREA NITROGEN 9 mg/dL (7-18); CHLORIDE 101 mmol/L (98-107); CO2 26 mmol/L (21-32); CREATININE 0.4 mg/dL (0.55-1.3); GLUCOSE,RANDOM 118 mg/dL (74-106); POTASSIUM 3.9 mmol/L (3.5-5.1); SGOT/AST 32 U/L (15-37); SGPT/ALT 28 U/L (13-61); SODIUM 135 mmol/L (136-145)
--- NOTE | 2018-08-16 09:57 | PN ---
Progress Note, Physician History of Present Illness: patient stable no complaints - Current Medication List Current Medications: Active Medications Acetaminophen (Tylenol -) 650 mg PO Q6H PRN PRN Reason: FEVER Last Admin: 08/14/18 02:36 Dose: 650 mg Docusate Sodium (Colace -) 100 mg PO TID [facility] Last Admin: 08/16/18 06:09 Dose: Not Given Finasteride (Proscar -) 5 mg PO DAILY [facility] Last Admin: 08/15/18 10:56 Dose: 5 mg Heparin Sodium (Porcine) (Heparin -) 5,000 unit SQ BID [facility] Last Admin: 08/15/18 21:28 Dose: 5,000 unit Insulin Aspart (Novolog Vial Sliding Scale -) 1 vial SQ ACHS [facility]; Protocol Last Admin: 08/16/18 06:10 Dose: 2 units Metformin HCl (Glucophage -) 1,000 mg PO BID@0700,1630 [facility] Last Admin: 08/16/18 06:08 Dose: Not Given Metoprolol Succinate (Toprol Xl -) 100 mg PO DAILY [facility] Last Admin: 08/15/18 10:56 Dose: 100 mg Multivitamins/Minerals/Vitamin C (Tab-A-Vit -) 1 tab PO DAILY [facility] Last Admin: 08/15/18 10:56 Dose: 1 tab Nifedipine (Procardia Xl -) 30 mg PO DAILY [facility] Last Admin: 08/15/18 10:56 Dose: 30 mg Potassium Chloride (K-Dur -) 10 meq PO BID [facility] Last Admin: 08/15/18 21:26 Dose: 10 meq Tamsulosin HCl (Flomax -) 0.4 mg PO DAILY@0830 [facility] Last Admin: 08/15/18 10:57 Dose: 0.4 mg Zolpidem Tartrate (Ambien -) 5 mg PO HS PRN PRN Reason: INSOMNIA Last Admin: 08/15/18 11:12 Dose: 5 mg - Objective Vital Signs: Vital Signs Temperature 98.2 F 08/16/18 06:32 Pulse Rate 85 08/16/18 06:32 Respiratory Rate 20 08/16/18 06:32 Blood Pressure 134/87 08/16/18 06:32 O2 Sat by Pulse Oximetry (%) 95 08/15/18 21:00 Constitutional: Yes: No Distress, Calm HENT: Yes: Atraumatic Cardiovascular: Yes: Regular Rate and Rhythm Respiratory: Yes: Regular, CTA Bilaterally Gastrointestinal: Yes: Normal Bowel Sounds, Soft Genitourinary: Yes: Galarza Present Musculoskeletal: Yes: WNL Extremities: Yes: WNL Neurological: Yes: Alert, Oriented Psychiatric: Yes: Alert, Oriented Labs: CBC, BMP 08/16/18 05:30 08/16/18 05:30 INR, PTT INR 1.47 (0.83-1.09) H 08/04/18 18:01 Assessment/Plan sepsis fever uti weakness ca bladder plan physio stable nutrition rest as per the team
[2018-08-16] MEDS ORDERED: PT OWN MED DRAWER 7, Y5N ONE (10:23)
[2018-08-16] MEDS: TAMSULOSIN HCL 0.4 MG CAP PO SCH (10:28)
[2018-08-16] MEDS: POTASSIUM CHLORIDE TABS 10 MEQ TABLET.ER (FP) PO SCH (10:28)
[2018-08-16] MEDS: MULTIVITAMINS (DAILY MVI) TABLET (FP) PO SCH (10:28)
[2018-08-16] MEDS: HEPARIN NA (PORCINE) 5,000 UNITS/ML 1ML VIAL SQ SCH (10:28)
[2018-08-16] MEDS: NIFEdipine E.R. 30 MG TABLET (FP) PO SCH (10:28)
[2018-08-16] MEDS: FINASTERIDE 5 MG TABLET (FP) PO SCH (10:28)
--- NOTE | 2018-08-16 10:42 | PN ---
Progress Note (short form) - Note Progress Note: patient seen and examined at bedside Just had a BM and it was formed denies any further episodes of diarrhea Feels good today Denies fever or chills waiting to be discharged to SNF today patient feels well denies abdominal pain or distention denies feeling bloated had US of the ABD with showed a liver mass likely secondary to metastasis - seen on prior imaging from February 2018 Vital Signs Temperature 97.4 F L 08/15/18 09:29 Pulse Rate 82 08/15/18 09:29 Respiratory Rate 188 H 08/15/18 09:29 Blood Pressure 133/82 08/15/18 09:29 O2 Sat by Pulse Oximetry (%) 95 08/14/18 21:00 NAD lying in bed RRR S1 S2 CTAB Soft non tender non distended normactive bowel sounds Galarza in place 08/14/18 08/15/18 08/15/18 08:50 06:30 07:00 WBC 8.1 RBC 3.68 L Hgb 8.6 L Hct 26.0 L D MCV 70.8 L MCHC 32.9 RDW 27.6 H Plt Count 248 Neutrophils % 80.5 Lymphocytes % 12.6 Monocytes % 5.6 Eosinophils % 0.5 Basophils % 0.8 Sodium 137 Potassium 4.0 Chloride 102 Carbon Dioxide 24 Anion Gap 11 BUN 8 Creatinine 0.3 L Blood Type A POSITIVE Antibody Screen Negative 08/07/18 06:20 Blood Culture - Final Blood - Peripheral Venous NO GROWTH AFTER 5 DAYS INCUBATION 08/07/18 06:20 Blood Culture - Final Blood - Peripheral Venous NO GROWTH AFTER 5 DAYS INCUBATION 08/04/18 18:01 Blood Culture - Final Blood - Peripheral Venous NO GROWTH AFTER 5 DAYS INCUBATION 08/04/18 18:01 Blood Culture - Final Blood - Peripheral Venous NO GROWTH AFTER 5 DAYS INCUBATION 08/07/18 21:30 Clostridium difficile Antigen (OK) - Final Stool Clostridium difficile Toxin Assay - Final 08/04/18 18:41 Urine Culture - Final Urine - Urine Clean Catch Vr Ec Faecium 08/04/18 18:01 Clostridium difficile Antigen (OK) - Final Stool Clostridium difficile Toxin Assay - Final No Labs today Problem List: Metastatic bladder Ca liver mass Sepsis secondary to UTI vs pyelonephritis HTN BPH DM Plan: Patient needs to have sepsis resolved and needs better performance status before restarting chemotherapy Hb stable for discharge to SNF Patient will need to follow up with Dr. Vance within 1 week.
--- NOTE | 2018-08-16 14:01 | PN ---
Progress Note (short form) - Note Progress Note: Abd US reviewed: appears that he has significant metastatic disease in liver. The Gallbladder finding is likely reflecting hypoalbuminemic states as opposed to cholecystitis. Oncology follow-up re: US findings Problem List - Problems (1) Diarrhea Code(s): R19.7 - DIARRHEA, UNSPECIFIED (2) Abnormal liver function tests Code(s): R94.5 - ABNORMAL RESULTS OF LIVER FUNCTION STUDIES
[2018-08-16 14:59] VITALS: BP 108/80; PULSE 87; TEMP 98.6
--- NOTE | 2018-08-16 16:10 | DS ---
Physical Examination Vital Signs: Vital Signs Temperature 98.6 F 08/16/18 14:57 Pulse Rate 87 08/16/18 14:57 Respiratory Rate 20 08/16/18 06:32 Blood Pressure 108/80 08/16/18 14:57 O2 Sat by Pulse Oximetry (%) 95 08/15/18 21:00 Constitutional: Yes: Pallor Cardiovascular: Yes: WNL, Regular Rate and Rhythm Respiratory: Yes: WNL, Regular, CTA Bilaterally Gastrointestinal: Yes: WNL, Normal Bowel Sounds, Soft Labs: CBC, BMP 08/16/18 05:30 08/16/18 05:30 Discharge Summary Reason For Visit: UTI DUE TO EXTENDED-SPECTRUM BETA LACTAMASE (ESBL) Current Active Problems Metastatic Bladder Cancer Anemia Diabetes HTN Abnormal liver function tests (Acute) Diarrhea (Acute) Hypoalbuminemia (Acute) Sinus tachycardia (Acute) UTI due to VR e Faecium Hospital Course: Pt is a 78 y/o male w/ metastatic bladder cancer who presented to the hospital of sepsis due to UTI([pt recently had nephrostomy tubes removed) Pt found to have VR e faecium and started on IV atnibxs wc have now been stopped by infectious disease. Pt has remained afebrile w/ normal WBC. Pt also found to be anemia and wsa transfused PRBC's wc helped his weakness. Pt is to follow up with his oncologist(Dr Manjarrez) in 2 weeks. Condition: Guarded - Instructions Referrals: Hector Dorman MD [Staff Physician] - Pinky Mathis MD [Staff Physician] - 1 Week Andrea Delgadillo MD [Primary Care Provider] - [facility] - Home Medications Comprehensive Discharge Medication List: Ambulatory Orders Finasteride [Proscar -] 5 mg PO DAILY 06/25/18 Metformin HCl [Glucophage] 1,000 mg PO BID 06/25/18 Metoclopramide HCl 5 mg PO BID PRN 06/25/18 Metoprolol Succinate [Toprol XL -] 100 mg PO DAILY 06/25/18 Multivit-Min/FA/Lycopen/Lutein [Centrum Silver Men Tablet] 1 each PO DAILY 06/25 Nifedipine [Procardia Xl] 30 mg PO DAILY 06/25/18 Silodosin [Rapaflo] 8 mg PO DAILY 06/25/18 Zolpidem Tartrate [Ambien] 5 mg PO HS 06/25/18 Ertapenem Sodium [Invanz -] 1 gm IVPB DAILY vial 07/06/18 Zolpidem Tartrate [Ambien] 5 mg PO HS PRN #30 tablet MDD 1 07/06/18 Docusate Sodium [Colace -] 100 mg PO TID capsule 08/01/18 Zolpidem Tartrate [Ambien] 5 mg PO HS PRN #30 tablet MDD 1 08/01/18 metFORMIN HCL [Glucophage -] 500 mg PO BID@0700,1630 tablet 08/01/18
--- NOTE | 2018-08-16 16:38 | PN ---
Teaching Attending Note Name of Resident: Karthikeyan Agustin ATTENDING PHYSICIAN STATEMENT I saw and evaluated the patient. I reviewed the resident's note and discussed the case with the resident. I agree with the resident's findings and plan as documented. SUBJECTIVE: Patient sen and examined For transfer to SNF for rehab Last Vital Signs Temp Pulse Resp BP Pulse Ox 98.6 F 87 20 108/80 95 08/16/18 14:57 08/16/18 14:57 08/16/18 06:32 08/16/18 14:57 08/15/18 21:00 HEENT: FLETCHER, EOM Intact Cor: RSR, No murmurs, No gallops Lungs: Clear to P&A Abd: Soft, Normal bowel sounds, No organomegaly Ext:No significant edema Skin: No rashes, Integument intact CBC, BMP 08/16/18 05:30 08/16/18 05:30 Current Medications Generic Name Dose Route Start Last Admin Trade Name Freq PRN Reason Stop Dose Admin Acetaminophen 650 mg 08/05/18 03:11 08/14/18 02:36 Tylenol - PO 650 mg Q6H PRN Administration FEVER Docusate Sodium 100 mg 08/05/18 06:00 08/16/18 13:05 Colace - PO Not Given TID [facility] Finasteride 5 mg 08/05/18 10:00 08/16/18 10:28 Proscar - PO 5 mg DAILY [facility] Administration Heparin Sodium (Porcine) 5,000 unit 08/05/18 10:00 08/16/18 10:28 Heparin - SQ 5,000 unit BID [facility] Administration Insulin Aspart 1 vial 08/05/18 07:00 08/16/18 13:07 Novolog Vial Sliding Scale - SQ 2 units ACHS [facility] Administration Protocol Metformin HCl 1,000 mg 08/05/18 07:00 08/16/18 06:08 Glucophage - PO Not Given BID@0700,1630 [facility] Metoprolol Succinate 100 mg 08/05/18 10:00 08/16/18 10:28 Toprol Xl - PO 100 mg DAILY [facility] Administration Multivitamins/Minerals/Vitamin C 1 tab 08/05/18 10:00 08/16/18 10:28 Tab-A-Vit - PO 1 tab DAILY [facility] Administration Nifedipine 30 mg 08/05/18 10:00 08/16/18 10:28 Procardia Xl - PO 30 mg DAILY [facility] Administration Potassium Chloride 10 meq 08/10/18 22:00 08/16/18 10:28 K-Dur - PO 10 meq BID [facility] Administration Tamsulosin HCl 0.4 mg 08/05/18 08:30 08/16/18 10:28 Flomax - PO 0.4 mg DAILY@0830 [facility] Administration Zolpidem Tartrate 5 mg 08/14/18 22:00 08/15/18 11:12 Ambien - PO 5 mg HS PRN Administration INSOMNIA Metastatic bladder ca.-- for transfer to [facility] Known bone and liver mets. Hopefully treatment in future based upon performance status. OBJECTIVE: ASSESSMENT AND PLAN:
== END 2018-08-16 18:41 | DRG 872 ==
LOC: JER 17:13 → JERBED 20:09 → J8W 08-05 15:59
PROVIDERS: ADMIT Internal Medicine; ATTEND Internal Medicine
PROC: 30233N1 Transfusion of Nonautologous Red Blood Cells into Peripheral Vein, Percutaneous Approach (ICD-10-PCS; principal; 2018-08-07)
DX: A41.9 Sepsis, unspecified organism (principal); C78.7 Secondary malignant neoplasm of liver and intrahepatic bile duct; C79.51 Secondary malignant neoplasm of bone; N17.9 Acute kidney failure, unspecified; N13.6 Pyonephrosis; E11.9 Type 2 diabetes mellitus without complications; I10 Essential (primary) hypertension; I71.2 Thoracic aortic aneurysm, without rupture; N40.0 Benign prostatic hyperplasia without lower urinary tract symptoms; C67.9 Malignant neoplasm of bladder, unspecified; D63.1 Anemia in chronic kidney disease; R00.0 Tachycardia, unspecified; D63.0 Anemia in neoplastic disease; N13.9 Obstructive and reflux uropathy, unspecified; E87.6 Hypokalemia; E88.09 Other disorders of plasma-protein metabolism, not elsewhere classified; R19.7 Diarrhea, unspecified; K74.60 Unspecified cirrhosis of liver; R94.5 Abnormal results of liver function studies; I12.9 Hypertensive chronic kidney disease with stage 1 through stage 4 chronic kidney disease, or unspecified chronic kidney disease; E11.22 Type 2 diabetes mellitus with diabetic chronic kidney disease; N18.3 Chronic kidney disease, stage 3 (moderate); R16.0 Hepatomegaly, not elsewhere classified; Z87.891 Personal history of nicotine dependence
CPT/HCPCS: 36415; 36430; 50431; 71045-TC-FY; 74019-TC-FY; 74425-TC-FY; 76700-TC; 76775-TC; 76856-TC; 78708-TC; 80048; 80053; 81003; 81015; 82272; 82803; 82962; 83605; 83735; 84100; 84300; 84484; 85025; 85027; 85610; 85730; 86850; 86900; 86901; 86922; 87040; 87086; 87186; 87324; 87449; 93005; 93010; 97116-GP; 97161-GP; 99285-25; A9562; J1644; J7030; P9038; P9058

== ENCOUNTER 2018-08-24 21:02 | Inpatient (IN) | payer OTHER ==
--- NOTE | 2018-08-24 21:43 | PDOC ---
*Physical Exam - Vital Signs Last Vital Signs Temp Pulse Resp BP Pulse Ox 103.4 F H 97 H 18 114/84 95 08/24/18 21:28 08/24/18 21:28 08/24/18 21:28 08/24/18 21:28 08/24/18 21:28 ED Treatment Course - LABORATORY CBC & Chemistry Diagram: 08/30/18 06:00 08/30/18 06:00 - RADIOLOGY Radiology Studies Ordered: Category Date Time Status CHEST X-RAY PORTABLE* [RAD] Stat Radiology 08/24/18 21:38 Ordered Medical Decision Making - Medical Decision Making 08/24/18 22:54 The patient was seen and evaluated in conjunction with JAYSHREE Ellis under my direct supervision, ancillary studies were reviewed. I independently interviewed and evaluated the patient and I agree with the plan as outlined by JAYSHREE Ellis. 78y M hx of bladder ca, htn, dm, bph, recent urosepsis secondary to VRE, presents for evaluation of fever. Pt endorse diarrhea for the past few days, but denie sany other focal complaints. on exam pt i nn odistress hot to touch lungs cta abd soft nontender card rrr, no mrg gu rahman in place sepsis orderset obtained ?uti 08/25/18 01:56 ua suggestive of UTI pt started on meropenem per ID request will admit for further mangaement *DC/Admit/Observation/Transfer Diagnosis at time of Disposition: UTI (urinary tract infection) - Referrals - Patient Instructions - Post Discharge Activity
[2018-08-24] MEDS ORDERED: IBUPROFEN 400 MG TABLET (FP) PO ONE ×2 (21:44→23:10)
--- NOTE | 2018-08-24 21:51 | PDOC ---
History of Present Illness - General Chief Complaint: SIRS, Suspected/Possible Stated Complaint: FEVER Time Seen by Provider: 08/24/18 21:04 History Source: Patient Exam Limitations: No Limitations - History of Present Illness Initial Comments: 78 y/o M hx of metastatic bladder CA (mets to liver/bone, last chemo 06/22/18), HTN, DM, BPH, thalassemia, thoracic aortic aneurysm, cirrhosis, recently admitted 08/04-08/16 for urosepsis (treated with Linezolid after urine culture grew VRE; blood cultures were negative) presents from the [facility] for fever of 104.4 over there. Patient was given Tylenol 650 mg at 8 PM there. Patient mentions having watery diarrhea for the past few days. Otherwise denies any URI complaints, sob, cp, abd pain, n/v, black/bloody stools, hematuria. Patient has rahman in place. 08/24/18 21:47 Past History - Past Medical History Allergies/Adverse Reactions: Allergies Allergy/AdvReac Type Severity Reaction Status Date / Time No Known Allergies Allergy Verified 08/24/18 23:38 Home Medications: Ambulatory Orders Finasteride [Proscar -] 5 mg PO DAILY 06/25/18 Metformin HCl [Glucophage] 1,000 mg PO BID 06/25/18 Metoprolol Succinate [Toprol XL -] 100 mg PO DAILY 06/25/18 Multivit-Min/FA/Lycopen/Lutein [Centrum Silver Men Tablet] 1 each PO DAILY 06/25 Nifedipine [Procardia Xl] 30 mg PO DAILY 06/25/18 Silodosin [Rapaflo] 8 mg PO DAILY 06/25/18 Zolpidem Tartrate [Ambien] 5 mg PO HS 06/25/18 Docusate Sodium [Colace -] 100 mg PO TID capsule 08/01/18 Insulin Sliding Scale [Novolog Vial Sliding Scale -] 1 vial SQ ACHS units 08/16 Potassium Chloride [K-Dur -] 10 meq PO BID #60 tablet.er 08/16/18 Anemia: Yes Asthma: No Cancer: Yes (BLADDER W/ mets to liver and bone) Cardiac Disorders: No CVA: No COPD: No CHF: No Dementia: No Diabetes: Yes GI Disorders: No Disorders: Yes (BPH, FLOLEY CATH IN PLACE) HTN: Yes Hypercholesterolemia: No Liver Disease: No Seizures: No Thyroid Disease: No - Surgical History Abdominal Surgery: No Appendectomy: No Cardiac Surgery: No - Immunization History Immunization Up to Date: Yes - Suicide/Smoking/Psychosocial Hx Smoking Status: Yes Smoking History: Never smoked Have you smoked in the past 12 months: No Number of Cigarettes Smoked Daily: 0 If you are a former smoker, when did you quit?: 1989 Information on smoking cessation initiated: No Hx Alcohol Use: No Drug/Substance Use Hx: No Substance Use Type: None Hx Substance Use Treatment: No Review of Systems - Review of Systems Comments:: See HPI 08/24/18 21:53 *Physical Exam - Vital Signs Last Vital Signs Temp Pulse Resp BP Pulse Ox 103.4 F H 97 H 18 114/84 95 08/24/18 21:28 08/24/18 21:28 08/24/18 21:28 08/24/18 21:28 08/24/18 21:28 - Physical Exam General Appearance: Yes: Thin. No: Apparent Distress, Disheveled Respiratory/Chest: positive: Lungs Clear, Normal Breath Sounds. negative: Respiratory Distress, Accessory Muscle Use Cardiovascular: positive: Regular Rhythm, Regular Rate, S1, S2 Gastrointestinal/Abdominal: positive: Normal Bowel Sounds, Soft, Other (Rahman bag draining yellow urine). negative: Tender, Protuberent, Distended, Guarding , Rebound, Tenderness, Mass Extremity: positive: Normal Inspection Neurologic: positive: Fully Oriented, Alert, Normal Mood/Affect ED Treatment Course - LABORATORY CBC & Chemistry Diagram: 08/24/18 22:45 08/24/18 22:45 Medical Decision Making - Medical Decision Making 78 y/o M with metastatic bladder CA, recent admission for urosepsis with UCx + for VRE (treated with Linezolid), presents with fever. Will r/o sources of fever including UTI, PNA; also consider C. diff given active diarrhea. Though patient with no URI complaints, given he is immunosuppressed and currently at SNF, will also get flu swab. Will get CBC, CMP, VBG, lactic acid, UA, UCx, blood cultures x2, CXR. Given patient with rahman in place, urine will already be colonized, so will get new rahman placed to get new urine collection. Will also give Motrin 800 mg given patient also febrile here. Given patient is not tachycardic and maintaining normal BP, will hold off on IVF for now. 08/24/18 21:54 Labs show significant leukocytosis, lactate of 2.9; CXR wet-read was normal, UA+ C.diff and stool culture pending, Flu swab pending Patient given 1 L of NS fluids ID, Dr. Nino, spoke to Dr. Pineda, and had recommended starting patient on Meropenem. Case discussed with patient's PCP, DR. Nino, and patient to be admitted for further work-up and evaluation 08/25/18 01:31 *DC/Admit/Observation/Transfer Diagnosis at time of Disposition: UTI (urinary tract infection) - Discharge Dispostion Decision to Admit order: Yes - Referrals - Patient Instructions - Post Discharge Activity
[2018-08-24 22:59] LABS: BASO % 0.9 % (0-2.0); HEMATOCRIT 24.2 % (35.4-49); HEMOGLOBIN 7.9 GM/dL (11.7-16.9); LYMPH % 2.6 % (8-40); MCH 22.8 pg (25.7-33.7); MCHC 32.7 g/dl (32.0-35.9); MEAN CELL VOLUME 69.9 fl (80-96); MEAN PLT VOLUME 9.2 fl (7.5-11.1); MONO % 5.7 % (3.8-10.2); NEUT % 90.8 % (42.8-82.8); PLATELET COUNT 292 K/MM3 (134-434); RBC 3.46 M/mm3 (4.00-5.60); RDW 28.2 % (11.9-15.9); WHITE BLOOD COUNT 20.7 K/mm3 (4.0-10.0)
[2018-08-24 23:01] LABS: VENOUS PC02 27.5 mmHg (38-52); VENOUS PH 7.49 (7.32-7.42); VENOUS PO2 42.4 mmHg (28-48)
[2018-08-24 23:23] LABS: INR 1.49 (0.83-1.09); PROTHROMBIN TIME (PATIENT) 17.7 SEC (9.7-13.0)
[2018-08-24 23:42] LABS: ALBUMIN 2.5 g/dl (3.4-5.0); ALK PHOS 1053 U/L (45-117); ANION GAP 15 MMOL/L (8-16); BILIRUBIN,TOTAL 1.8 mg/dL (0.2-1); BLOOD UREA NITROGEN 19 mg/dL (7-18); CALCIUM 8.4 mg/dL (8.5-10.1); CHLORIDE 96 mmol/L (98-107); CO2 20 mmol/L (21-32); CREATININE 0.8 mg/dL (0.55-1.3); GLUCOSE,RANDOM 149 mg/dL (74-106); POTASSIUM 4.3 mmol/L (3.5-5.1); SGOT/AST 69 U/L (15-37); SGPT/ALT 34 U/L (13-61); SODIUM 131 mmol/L (136-145)
[2018-08-25] MEDS ORDERED: SODIUM CHLORIDE 1,000 ML IV STA (00:13)
[2018-08-25 00:23] LABS: URINE APPEARANCE CLOUDY; URINE BILIRUBIN NEGATIVE (<2.0 mg/dL); URINE GLUCOSE (UA) NEGATIVE (NEGATIVE); URINE KETONE NEGATIVE (NEGATIVE); URINE LEUK ESTERASE 3+ (NEGATIVE); URINE NITRITE NEGATIVE (NEGATIVE); URINE PROTEIN 2+ (NEGATIVE)
[2018-08-25 00:26] LABS: URINE COLOR DK YELLOW
[2018-08-25 00:29] LABS: URINE BACTERIA RARE /hpf (NONE SEEN); URINE MUCUS RARE
[2018-08-25] MEDS ORDERED: MEROPENEM 1 GM in DEXTROSE 5%-WATER 100 ML IVPB ONE (01:28)
[2018-08-25 01:40] LABS: ANISOCYTOSIS 3+
--- NOTE | 2018-08-25 07:37 | EKG ---
Test Reason : Blood Pressure : / mmHG Vent. Rate : 074 BPM Atrial Rate : 074 BPM P-R Int : 214 ms QRS Dur : 104 ms QT Int : 404 ms P-R-T Axes : 034 -46 035 degrees QTc Int : 448 ms SINUS RHYTHM WITH 1ST DEGREE A-V BLOCK LEFT AXIS DEVIATION ABNORMAL ECG WHEN COMPARED WITH ECG OF 13-AUG-2018 10:43, PREMATURE ATRIAL COMPLEXES ARE NO LONGER PRESENT Confirmed by AAMIR LYNCH, NARCISO ([id number]) on 08/25/2018 7:37:40 AM Referred By: Confirmed By:NARCISO RUTLEDGE MD
--- NOTE | 2018-08-25 12:27 | CON.ID ---
Consult Consult Specialty:: infectious diseases Referred by:: Reason for Consultation:: sepsis,fever - History of Present Illness Chief Complaint: fever,weakness History of Present Illness: 78 y/o M hx of metastatic bladder CA (mets to liver/bone, last chemo 06/22/18), HTN, DM, BPH, thalassemia, thoracic aortic aneurysm, cirrhosis, recently admitted 08/04-08/16 for urosepsis (treated with Linezolid after urine culture grew VRE; blood cultures were negative) presents from the [facility] for fever of 104.4 over there. patient mentions that he has been having watery dirrhoea also patient has ongoing foleys catheter patient was seen in the ed and given abx for the same and was admitted to the floor currently patient feels much better and all the work up has been send - History Source History Provided By: Patient Limitations to Obtaining History: No Limitations - Past Medical History Cardio/Vascular: Yes: HTN, Hyperlipdemia Hepatobiliary: Yes: Cirrhosis (by imaging) Renal/: Yes: Renal Failure, BPH, Cancer, Hematuria Endocrine: Yes: Diabetes Mellitus - Past Surgical History Past Surgical History: Yes: Stent (urinary), TURP - Alcohol/Substance Use Hx Alcohol Use: No History of Substance Use: reports: None - Smoking History Smoking history: Never smoked Have you smoked in the past 12 months: No Aproximately how many cigarettes per day: 0 If you are a former smoker, when did you quit?: 1989 - Social History Usual Living Arrangement: With Spouse ADL: Independent History of Recent Travel: No Home Medications - Allergies Allergies/Adverse Reactions: Allergies Allergy/AdvReac Type Severity Reaction Status Date / Time No Known Allergies Allergy Verified 08/24/18 23:38 - Home Medications Home Medications: Ambulatory Orders RX: Finasteride [Proscar -] 5 mg PO DAILY 06/25/18 RX: Metformin HCl [Glucophage] 1,000 mg PO BID 06/25/18 RX: Metoprolol Succinate [Toprol XL -] 100 mg PO DAILY 06/25/18 RX: Multivit-Min/FA/Lycopen/Lutein [Centrum Silver Men Tablet] 1 each PO DAILY 06/25/18 RX: Nifedipine [Procardia Xl] 30 mg PO DAILY 06/25/18 RX: Silodosin [Rapaflo] 8 mg PO DAILY 06/25/18 RX: Zolpidem Tartrate [Ambien] 5 mg PO HS 06/25/18 RX: Docusate Sodium [Colace -] 100 mg PO TID capsule 08/01/18 RX: Insulin Sliding Scale [Novolog Vial Sliding Scale -] 1 vial SQ ACHS units 08/16/18 RX: Potassium Chloride [K-Dur -] 10 meq PO BID #60 tablet.er 08/16/18 Family Disease History - Family Disease History Family Disease History: Other: Father (: 45: "heart problem"), Mother ( : 80: COPD), Brother (1, 80's, unclear cause), Son (1, healthy), Daughter ( 1, healthy) Review of Systems - Review of Systems Constitutional: reports: Fever Eyes: reports: No Symptoms HENT: reports: No Symptoms Neck: reports: No Symptoms Cardiovascular: reports: No Symptoms Respiratory: reports: No Symptoms Gastrointestinal: reports: No Symptoms Genitourinary: reports: No Symptoms Musculoskeletal: reports: No Symptoms Integumentary: reports: No Symptoms Neurological: reports: No Symptoms Endocrine: reports: No Symptoms Hematology/Lymphatic: reports: No Symptoms Psychiatric: reports: No Symptoms Physical Exam Vital Signs: Vital Signs Temperature 97.4 F L 08/25/18 10:03 Pulse Rate 98 H 08/25/18 10:03 Respiratory Rate 18 08/25/18 10:03 Blood Pressure 114/75 08/25/18 10:03 O2 Sat by Pulse Oximetry (%) 96 08/25/18 10:03 Constitutional: Yes: No Distress, Calm, Thin Eyes: Yes: Conjunctiva Clear Cardiovascular: Yes: Regular Rate and Rhythm Respiratory: Yes: Regular, CTA Bilaterally Gastrointestinal: Yes: Normal Bowel Sounds, Soft Renal/: Yes: Galarza Present Musculoskeletal: Yes: Muscle Weakness Extremities: Yes: WNL Neurological: Yes: Alert, Oriented Psychiatric: Yes: Alert, Oriented Labs: CBC, BMP 08/24/18 22:45 08/24/18 22:45 Imaging - Results Chest X-ray: Report Reviewed, Image Reviewed Ultrasound: Report Reviewed, Image Reviewed Assessment/Plan uti ca bladder fever weakness plan will continue meropenam await for all cx reports monitor closely rest as per the team
[2018-08-25] MEDS: MEROPENEM 1 GM in DEXTROSE 5%-WATER 100 ML IVPB SCH ×2 (12:53→19:00)
[2018-08-25] MEDS: DOCUSATE SODIUM 100 MG CAPSULE (FP) PO SCH ×2 (15:20→22:34)
--- NOTE | 2018-08-25 16:12 | HP ---
Admitting History and Physical - Past Medical History Cardiovascular: Yes: HTN, Hyperlipdemia Hepatobiliary: Yes: Cirrhosis (by imaging) Renal/: Yes: Renal Failure, BPH, Cancer, Hematuria Heme/Onc: Yes: Anemia (Thalassemia) Endocrine: Yes: Diabetes Mellitus - Past Surgical History Past Surgical History: Yes: Stent (urinary), TURP - Smoking History Smoking history: Never smoked Have you smoked in the past 12 months: No Aproximately how many cigarettes per day: 0 If you are a former smoker, when did you quit?: 1989 - Alcohol/Substance Use Hx Alcohol Use: No History of Substance Use: reports: None - Social History ADL: Independent History of Recent Travel: No Home Medications - Allergies Allergies/Adverse Reactions: Allergies Allergy/AdvReac Type Severity Reaction Status Date / Time No Known Allergies Allergy Verified 08/24/18 23:38 - Home Medications Home Medications: Ambulatory Orders Finasteride [Proscar -] 5 mg PO DAILY 06/25/18 Metformin HCl [Glucophage] 1,000 mg PO BID 06/25/18 Metoprolol Succinate [Toprol XL -] 100 mg PO DAILY 06/25/18 Multivit-Min/FA/Lycopen/Lutein [Centrum Silver Men Tablet] 1 each PO DAILY 06/25 Nifedipine [Procardia Xl] 30 mg PO DAILY 06/25/18 Silodosin [Rapaflo] 8 mg PO DAILY 06/25/18 Zolpidem Tartrate [Ambien] 5 mg PO HS 06/25/18 Docusate Sodium [Colace -] 100 mg PO TID capsule 08/01/18 Insulin Sliding Scale [Novolog Vial Sliding Scale -] 1 vial SQ ACHS units 08/16 Potassium Chloride [K-Dur -] 10 meq PO BID #60 tablet.er 08/16/18 Family Disease History - Family Disease History Family Disease History: Other: Father (: 45: "heart problem"), Mother ( : 80: COPD), Brother (1, 80's, unclear cause), Son (1, healthy), Daughter ( 1, healthy) Physical Examination Vital Signs: Vital Signs Temperature 100.0 F H 08/25/18 13:20 Pulse Rate 113 H 08/25/18 13:20 Respiratory Rate 18 08/25/18 10:03 Blood Pressure 146/99 11/09/18 13:20 O2 Sat by Pulse Oximetry (%) 96 08/25/18 13:20 Labs: CBC, BMP 08/24/18 22:45 08/24/18 22:45
[2018-08-25] MEDS ORDERED: DEXTROSE 5%-0.45% SALINE 1,000 ML IV SCH (16:15)
[2018-08-25] MEDS ORDERED: PT OWN MED DRAWER 7, Y5N ONE (16:51)
[2018-08-25] MEDS: metFORMIN HCL 500 MG TABLET (FP) PO SCH (17:11)
[2018-08-25] MEDS: INSULIN SLIDING SCALE (NOVOLOG) 1 VIAL SQ SCH ×2 (17:11→22:35)
--- NOTE | 2018-08-25 17:11 | CONSULT ---
Consult - text type - Consultation Consultation Note: 78 y/o M hx of metastatic bladder CA (mets to liver/bone, last chemo 06/22/18), HTN, DM, BPH, thalassemia, thoracic aortic aneurysm, cirrhosis, recently admitted 08/04-08/16 for urosepsis (treated with Linezolid after urine culture grew VRE; blood cultures were negative) presents from the [facility] for fever of 104.4 over there. Patient was given Tylenol 650 mg at 8 PM there. Patient mentions having watery diarrhea for the past few days. Otherwise denies any URI complaints, sob, cp, abd pain, n/v, black/bloody stools, hematuria. Patient has rahman in place. Allergies/Adverse Reactions: Allergies Allergy/AdvReac Type Severity Reaction Status Date / Time No Known Allergies Allergy Verified 08/24/18 23:38 Home Medications: Ambulatory Orders Finasteride [Proscar -] 5 mg PO DAILY 06/25/18 Metformin HCl [Glucophage] 1,000 mg PO BID 06/25/18 Metoprolol Succinate [Toprol XL -] 100 mg PO DAILY 06/25/18 Multivit-Min/FA/Lycopen/Lutein [Centrum Silver Men Tablet] 1 each PO DAILY 06/25 Nifedipine [Procardia Xl] 30 mg PO DAILY 06/25/18 Silodosin [Rapaflo] 8 mg PO DAILY 06/25/18 Zolpidem Tartrate [Ambien] 5 mg PO HS 06/25/18 Docusate Sodium [Colace -] 100 mg PO TID capsule 08/01/18 Insulin Sliding Scale [Novolog Vial Sliding Scale -] 1 vial SQ ACHS units 08/16 Potassium Chloride [K-Dur -] 10 meq PO BID #60 tablet.er 08/16/18 PMH Anemia: Yes Cancer: Yes (BLADDER W/ mets to liver and bone) Diabetes: Yes Disorders: Yes (BPH, FLOLEY CATH IN PLACE) HTN: Yes *Physical Exam - Vital Signs Last Vital Signs Temp Pulse Resp BP Pulse Ox 103.4 F H 97 H 18 114/84 95 08/24/18 21:28 08/24/18 21:28 08/24/18 21:28 08/24/18 21:28 08/24/18 21:28 Cor: RSR, No murmurs, No gallops Lungs: Clear to P&A Abd: Soft, Normal bowel sounds, No organomegaly Ext:No significant edema Labs/Meds reviewed A/P 78 y/o M with metastatic bladder CA, recent admission for urosepsis with UCx + for VRE (treated with Linezolid), presents with fever.diarrhea. Has indwelling rahman/stents CR 0.8 On meropenem/fluids Will repeat imaging this admission-- CT c/a/p and bone scan will follow
[2018-08-25] MEDS ORDERED: INSULIN (NOVOLOG) ASPART 100 UNITS/ML 10ML VIAL ONE (17:20)
[2018-08-25] MEDS ORDERED: SODIUM CHLORIDE 0.45% 1,000 ML IV SCH ×2 (18:00→20:30)
[2018-08-25] MEDS: ACETAMINOPHEN 325 MG TABLET (FP) PO PRN (18:21)
[2018-08-25 18:46] LABS: BASO % 0.3 % (0-2.0); HEMATOCRIT 25.1 % (35.4-49); HEMOGLOBIN 8.2 GM/dL (11.7-16.9); MCH 22.6 pg (25.7-33.7); MCHC 32.5 g/dl (32.0-35.9); MEAN CELL VOLUME 69.7 fl (80-96); MEAN PLT VOLUME 9.3 fl (7.5-11.1); NEUT % 88.7 % (42.8-82.8); PLATELET COUNT 256 K/MM3 (134-434); WHITE BLOOD COUNT 12.8 K/mm3 (4.0-10.0)
[2018-08-25 19:43] LABS: ALBUMIN 2.4 g/dl (3.4-5.0); ALK PHOS 947 U/L (45-117); ANION GAP 15 MMOL/L (8-16); BILIRUBIN,TOTAL 1.5 mg/dL (0.2-1); BLOOD UREA NITROGEN 14 mg/dL (7-18); CALCIUM 8.2 mg/dL (8.5-10.1); CHLORIDE 96 mmol/L (98-107); CO2 20 mmol/L (22-28); CREATININE 0.6 mg/dL (0.55-1.3); GLUCOSE,RANDOM 187 mg/dL (74-106); POTASSIUM 4.4 mmol/L (3.5-5.1); SGOT/AST 40 U/L (15-37); SGPT/ALT 30 U/L (13-61); SODIUM 131 mmol/L (136-145); TOT PROT 6.9 g/dl (6.4-8.2)
[2018-08-25] MEDS ORDERED: SODIUM CHLORIDE 250 ML IV SCH (20:30)
[2018-08-25] MEDS ORDERED: ZOLPIDEM TARTRATE 5 MG TABLET PO PRN (22:00)
[2018-08-25] MEDS: HEPARIN NA (PORCINE) 5,000 UNITS/ML 1ML VIAL SQ SCH (22:34)
[2018-08-25] MEDS: POTASSIUM CHLORIDE TABS 10 MEQ TABLET.ER (FP) PO SCH (22:34)
[2018-08-26] MEDS: MEROPENEM 1 GM in DEXTROSE 5%-WATER 100 ML IVPB SCH ×3 (02:35→17:09)
[2018-08-26] MEDS: DOCUSATE SODIUM 100 MG CAPSULE (FP) PO SCH ×3 (05:51→21:28)
[2018-08-26] MEDS: INSULIN SLIDING SCALE (NOVOLOG) 1 VIAL SQ SCH ×4 (06:06→21:37)
[2018-08-26] MEDS: metFORMIN HCL 500 MG TABLET (FP) PO SCH ×2 (06:06→16:18)
[2018-08-26] MEDS: SODIUM CHLORIDE 0.45% 1,000 ML IV SCH (06:07)
[2018-08-26] MEDS ORDERED: INSULIN (NOVOLOG) ASPART 100 UNITS/ML 10ML VIAL ONE (06:27)
[2018-08-26 08:07] LABS: BASO % 0.4 % (0-2.0); HEMATOCRIT 23.2 % (35.4-49); HEMOGLOBIN 7.3 GM/dL (11.7-16.9); LYMPH % 10.8 % (8-40); MCH 21.9 pg (25.7-33.7); MCHC 31.4 g/dl (32.0-35.9); MEAN CELL VOLUME 69.7 fl (80-96); MEAN PLT VOLUME 9.1 fl (7.5-11.1); MONO % 7.2 % (3.8-10.2); NEUT % 81.6 % (42.8-82.8); PLATELET COUNT 200 K/MM3 (134-434); RBC 3.32 M/mm3 (4.00-5.60); RDW 27.9 % (11.9-15.9)
[2018-08-26] MEDS: TAMSULOSIN HCL 0.4 MG CAP PO SCH (08:53)
[2018-08-26 08:58] LABS: ALBUMIN 2.2 g/dl (3.4-5.0); ALK PHOS 913 U/L (45-117); ANION GAP 15 MMOL/L (8-16); BILIRUBIN,TOTAL 1.9 mg/dL (0.2-1); BLOOD UREA NITROGEN 11 mg/dL (7-18); CALCIUM 7.8 mg/dL (8.5-10.1); CHLORIDE 95 mmol/L (98-107); CO2 20 mmol/L (21-32); CREATININE 0.5 mg/dL (0.55-1.3); GLUCOSE,RANDOM 149 mg/dL (74-106); POTASSIUM 3.8 mmol/L (3.5-5.1); SGOT/AST 26 U/L (15-37); SGPT/ALT 27 U/L (13-61); SODIUM 130 mmol/L (136-145); TOT PROT 6.4 g/dl (6.4-8.2)
[2018-08-26] MEDS ORDERED: VANCOMYCIN 1,500 MG in DEXTROSE 5%-WATER - 500 ML IVPB ONE (09:30)
[2018-08-26] MEDS: FINASTERIDE 5 MG TABLET (FP) PO SCH (09:49)
[2018-08-26] MEDS: NIFEdipine E.R. 30 MG TABLET (FP) PO SCH (09:49)
[2018-08-26] MEDS: POTASSIUM CHLORIDE TABS 10 MEQ TABLET.ER (FP) PO SCH ×2 (09:49→21:27)
[2018-08-26] MEDS: HEPARIN NA (PORCINE) 5,000 UNITS/ML 1ML VIAL SQ SCH ×2 (09:49→21:27)
--- NOTE | 2018-08-26 11:39 | PN ---
Progress Note (short form) - Note Progress Note: 78 y/o M hx of metastatic bladder CA (mets to liver/bone, last chemo 06/22/18), HTN, DM, BPH, thalassemia, thoracic aortic aneurysm, cirrhosis, recently admitted 08/04-08/16 for urosepsis (treated with Linezolid after urine culture grew VRE; blood cultures were negative) presents from the [facility] for fever of 104.4 over there. Patient was given Tylenol 650 mg at 8 PM there. Patient mentions having watery diarrhea for the past few days. Otherwise denies any URI complaints, sob, cp, abd pain, n/v, black/bloody stools, hematuria. Patient has rahman in place. He feels better today his main issue is his repeated admissions ? suppressive doses of antibiotics Vital Signs Period Temp Pulse Resp BP Sys/Benjamin Pulse Ox Last 24 Hr 98.7 F-102.1 F 98-113 18-20 145-163/74-99 94-96 Cor: RSR, No murmurs, No gallops Lungs: Clear to P&A Abd: Soft, Normal bowel sounds, No organomegaly Ext:No significant edema Labs/Meds reviewed CBC, BMP 08/26/18 06:50 08/26/18 06:50 Current Medications Generic Name Dose Route Start Last Admin Trade Name Adwoa PRN Reason Stop Dose Admin Acetaminophen 650 mg 08/25/18 17:58 08/25/18 18:21 Tylenol - PO 650 mg Q4H PRN Administration FEVER Docusate Sodium 100 mg 08/25/18 14:00 08/26/18 05:51 Colace - PO 100 mg TID LIT Administration Finasteride 5 mg 08/26/18 10:00 08/26/18 09:49 Proscar - PO 5 mg DAILY LIT Administration Heparin Sodium (Porcine) 5,000 unit 08/25/18 22:00 08/26/18 09:49 Heparin - SQ 5,000 unit BID LIT Administration Meropenem 1 gm/ Dextrose 100 mls @ 200 mls/hr 08/25/18 12:30 08/26/18 09:49 IVPB 200 mls/hr Q8H-IV LIT Administration Sodium Chloride 1,000 mls @ 75 mls/hr 08/26/18 06:00 08/26/18 06:07 1/2 Normal Saline IV 75 mls/hr ASDIR LIT Administration Insulin Aspart 1 vial 08/25/18 16:30 08/26/18 06:06 Novolog Vial Sliding Scale - SQ 2 units ACHS LIT Administration Protocol Metformin HCl 1,000 mg 08/25/18 16:30 08/26/18 06:06 Glucophage - PO 1,000 mg BIDI LIT Administration Metoprolol Succinate 100 mg 08/26/18 10:00 08/26/18 09:49 Toprol Xl - PO 100 mg DAILY LIT Administration Nifedipine 30 mg 08/26/18 10:00 08/26/18 09:49 Procardia Xl - PO 30 mg DAILY LIT Administration Potassium Chloride 10 meq 08/25/18 22:00 08/26/18 09:49 K-Dur - PO 10 meq BID LIT Administration Tamsulosin HCl 0.4 mg 08/26/18 08:30 08/26/18 08:53 Flomax - PO 0.4 mg DAILY@0830 LIT Administration Zolpidem Tartrate 5 mg 08/25/18 22:00 Ambien - PO HS PRN INSOMNIA A/P 78 y/o M with metastatic bladder CA, recent admission for urosepsis with UCx + for VRE (treated with Linezolid), presents with fever.diarrhea. Has indwelling rahman/stents CR 0.8 doing better On meropenem/fluids Will repeat imaging this admission-- CT c/a/p and bone scan will follow
--- NOTE | 2018-08-26 14:40 | PN ---
Progress Note, Physician History of Present Illness: patient stable low grade temp feeling better urine clearing up - Current Medication List Current Medications: Active Medications Acetaminophen (Tylenol -) 650 mg PO Q4H PRN PRN Reason: FEVER Last Admin: 08/25/18 18:21 Dose: 650 mg Docusate Sodium (Colace -) 100 mg PO TID [facility] Last Admin: 08/26/18 13:14 Dose: Not Given Finasteride (Proscar -) 5 mg PO DAILY [facility] Last Admin: 08/26/18 09:49 Dose: 5 mg Heparin Sodium (Porcine) (Heparin -) 5,000 unit SQ BID [facility] Last Admin: 08/26/18 09:49 Dose: 5,000 unit Meropenem 1 gm/ Dextrose 100 mls @ 200 mls/hr IVPB Q8H-IV [facility] Last Admin: 08/26/18 09:49 Dose: 200 mls/hr Sodium Chloride (1/2 Normal Saline) 1,000 mls @ 75 mls/hr IV ASDIR [facility] Last Admin: 08/26/18 06:07 Dose: 75 mls/hr Insulin Aspart (Novolog Vial Sliding Scale -) 1 vial SQ ACHS [facility]; Protocol Last Admin: 08/26/18 12:33 Dose: 4 units Metformin HCl (Glucophage -) 1,000 mg PO BIDI [facility] Last Admin: 08/26/18 06:06 Dose: 1,000 mg Metoprolol Succinate (Toprol Xl -) 100 mg PO DAILY [facility] Last Admin: 08/26/18 09:49 Dose: 100 mg Nifedipine (Procardia Xl -) 30 mg PO DAILY [facility] Last Admin: 08/26/18 09:49 Dose: 30 mg Potassium Chloride (K-Dur -) 10 meq PO BID [facility] Last Admin: 08/26/18 09:49 Dose: 10 meq Tamsulosin HCl (Flomax -) 0.4 mg PO DAILY@0830 [facility] Last Admin: 08/26/18 08:53 Dose: 0.4 mg Zolpidem Tartrate (Ambien -) 5 mg PO HS PRN PRN Reason: INSOMNIA - Objective Vital Signs: Vital Signs Temperature 99.2 F 08/26/18 14:26 Pulse Rate 80 08/26/18 14:26 Respiratory Rate 18 08/26/18 14:26 Blood Pressure 110/71 08/26/18 14:26 O2 Sat by Pulse Oximetry (%) 94 L 08/26/18 09:00 Constitutional: Yes: No Distress, Calm Cardiovascular: Yes: Regular Rate and Rhythm Respiratory: Yes: Regular, CTA Bilaterally Gastrointestinal: Yes: Normal Bowel Sounds, Soft Genitourinary: Yes: Galarza Present Musculoskeletal: Yes: WNL Extremities: Yes: WNL Neurological: Yes: Alert, Oriented Psychiatric: Yes: Alert, Oriented Labs: CBC, BMP 08/26/18 06:50 08/26/18 06:50 INR, PTT INR 1.49 (0.83-1.09) H 08/24/18 22:45 Assessment/Plan uti gm positive bacteremia fever weakness plan continue meropenam rest as per the team patient stable
--- NOTE | 2018-08-26 16:28 | PN ---
Progress Note, Physician - Current Medication List Current Medications: Active Medications Acetaminophen (Tylenol -) 650 mg PO Q4H PRN PRN Reason: FEVER Last Admin: 08/25/18 18:21 Dose: 650 mg Docusate Sodium (Colace -) 100 mg PO TID [facility] Last Admin: 08/26/18 13:14 Dose: Not Given Finasteride (Proscar -) 5 mg PO DAILY [facility] Last Admin: 08/26/18 09:49 Dose: 5 mg Heparin Sodium (Porcine) (Heparin -) 5,000 unit SQ BID [facility] Last Admin: 08/26/18 09:49 Dose: 5,000 unit Meropenem 1 gm/ Dextrose 100 mls @ 200 mls/hr IVPB Q8H-IV [facility] Last Admin: 08/26/18 09:49 Dose: 200 mls/hr Sodium Chloride (1/2 Normal Saline) 1,000 mls @ 75 mls/hr IV ASDIR [facility] Last Admin: 08/26/18 06:07 Dose: 75 mls/hr Insulin Aspart (Novolog Vial Sliding Scale -) 1 vial SQ ACHS [facility]; Protocol Last Admin: 08/26/18 16:20 Dose: Not Given Metformin HCl (Glucophage -) 1,000 mg PO BIDI [facility] Last Admin: 08/26/18 16:18 Dose: 1,000 mg Metoprolol Succinate (Toprol Xl -) 100 mg PO DAILY [facility] Last Admin: 08/26/18 09:49 Dose: 100 mg Nifedipine (Procardia Xl -) 30 mg PO DAILY [facility] Last Admin: 08/26/18 09:49 Dose: 30 mg Potassium Chloride (K-Dur -) 10 meq PO BID [facility] Last Admin: 08/26/18 09:49 Dose: 10 meq Tamsulosin HCl (Flomax -) 0.4 mg PO DAILY@0830 [facility] Last Admin: 08/26/18 08:53 Dose: 0.4 mg Zolpidem Tartrate (Ambien -) 5 mg PO HS PRN PRN Reason: INSOMNIA - Objective Vital Signs: Vital Signs Temperature 99.2 F 08/26/18 14:26 Pulse Rate 80 08/26/18 14:26 Respiratory Rate 18 08/26/18 14:26 Blood Pressure 110/71 08/26/18 14:26 O2 Sat by Pulse Oximetry (%) 94 L 08/26/18 09:00 Labs: CBC, BMP 11/10/18 06:50 08/26/18 06:50 INR, PTT INR 1.49 (0.83-1.09) H 08/24/18 22:45
[2018-08-26] MEDS ORDERED: PT OWN MED DRAWER 7, Y5N ONE ×2 (16:56→19:25)
[2018-08-27] MEDS: MEROPENEM 1 GM in DEXTROSE 5%-WATER 100 ML IVPB SCH ×3 (02:00→21:27)
[2018-08-27] MEDS: SODIUM CHLORIDE 0.45% 1,000 ML IV SCH ×3 (06:31→21:27)
[2018-08-27] MEDS: DOCUSATE SODIUM 100 MG CAPSULE (FP) PO SCH ×3 (06:31→21:27)
[2018-08-27] MEDS: INSULIN SLIDING SCALE (NOVOLOG) 1 VIAL SQ SCH ×4 (06:32→21:31)
[2018-08-27 08:23] LABS: BASO % 0.4 % (0-2.0); EOS % 0.1 % (0-4.5); HEMATOCRIT 21.4 % (35.4-49); LYMPH % 10.4 % (8-40); MCH 22.2 pg (25.7-33.7); MCHC 32.5 g/dl (32.0-35.9); MEAN CELL VOLUME 68.4 fl (80-96); MEAN PLT VOLUME 9.2 fl (7.5-11.1); MONO % 7.6 % (3.8-10.2); NEUT % 81.5 % (42.8-82.8); PLATELET COUNT 184 K/MM3 (134-434); RBC 3.13 M/mm3 (4.00-5.60); RDW 27.8 % (11.9-15.9); WHITE BLOOD COUNT 10.3 K/mm3 (4.0-10.0)
[2018-08-27] MEDS: metFORMIN HCL 500 MG TABLET (FP) PO SCH ×2 (08:25→16:16)
[2018-08-27] MEDS: TAMSULOSIN HCL 0.4 MG CAP PO SCH (08:26)
[2018-08-27 08:36] LABS: ALBUMIN 1.9 g/dl (3.4-5.0); ALK PHOS 819 U/L (45-117); ANION GAP 12 MMOL/L (8-16); BILIRUBIN,TOTAL 1.5 mg/dL (0.2-1); BLOOD UREA NITROGEN 15 mg/dL (7-18); CALCIUM 7.9 mg/dL (8.5-10.1); CHLORIDE 97 mmol/L (98-107); CO2 20 mmol/L (21-32); CREATININE 0.5 mg/dL (0.55-1.3); GLUCOSE,RANDOM 65 mg/dL (74-106); POTASSIUM 4.1 mmol/L (3.5-5.1); SGOT/AST 33 U/L (15-37); SGPT/ALT 22 U/L (13-61); SODIUM 130 mmol/L (136-145)
[2018-08-27] MEDS ORDERED: PT OWN MED DRAWER 7, Y5N ONE ×2 (09:02→11:00)
[2018-08-27] MEDS: POTASSIUM CHLORIDE TABS 10 MEQ TABLET.ER (FP) PO SCH ×2 (09:26→21:27)
[2018-08-27] MEDS: FINASTERIDE 5 MG TABLET (FP) PO SCH (09:26)
[2018-08-27] MEDS: HEPARIN NA (PORCINE) 5,000 UNITS/ML 1ML VIAL SQ SCH ×2 (09:26→21:27)
[2018-08-27] MEDS: NIFEdipine E.R. 30 MG TABLET (FP) PO SCH (09:26)
--- NOTE | 2018-08-27 10:31 | PN ---
Progress Note (short form) - Note Progress Note: 78 y/o M hx of metastatic bladder CA (mets to liver/bone, last chemo 06/22/18), HTN, DM, BPH, thalassemia, thoracic aortic aneurysm, cirrhosis, recently admitted 08/04-08/16 for urosepsis (treated with Linezolid after urine culture grew VRE; blood cultures were negative) presents from the [facility] for fever of 104.4 over there. Patient was given Tylenol 650 mg at 8 PM there. Patient mentions having watery diarrhea for the past few days. Otherwise denies any URI complaints, sob, cp, abd pain, n/v, black/bloody stools, hematuria. Patient has rahman in place. He feels better today his main issue is his repeated admissions ? suppressive doses of antibiotics No evidence of blood loss Vital Signs Period Temp Pulse Resp BP Sys/Benjamin Pulse Ox Last 24 Hr 98.2 F-99.2 F 80-102 18-20 104-121/58-71 95 Cor: RSR, No murmurs, No gallops Lungs: Clear to P&A Abd: Soft, Normal bowel sounds, No organomegaly Ext:No significant edema Labs/Meds reviewed CBC, BMP 08/27/18 06:59 08/27/18 06:59 Current Medications Generic Name Dose Route Start Last Admin Trade Name Freq PRN Reason Stop Dose Admin Acetaminophen 650 mg 08/25/18 17:58 08/25/18 18:21 Tylenol - PO 650 mg Q4H PRN Administration FEVER Docusate Sodium 100 mg 08/25/18 14:00 08/27/18 06:31 Colace - PO Not Given TID LIT Finasteride 5 mg 08/26/18 10:00 08/27/18 09:26 Proscar - PO 5 mg DAILY LIT Administration Heparin Sodium (Porcine) 5,000 unit 08/25/18 22:00 08/27/18 09:26 Heparin - SQ 5,000 unit BID LIT Administration Meropenem 1 gm/ Dextrose 100 mls @ 200 mls/hr 08/25/18 12:30 08/27/18 02:00 IVPB 200 mls/hr Q8H-IV LIT Administration Sodium Chloride 1,000 mls @ 75 mls/hr 08/26/18 06:00 11/11/18 06:31 1/2 Normal Saline IV 75 mls/hr ASDIR LIT Administration Insulin Aspart 1 vial 08/25/18 16:30 08/27/18 06:32 Novolog Vial Sliding Scale - SQ Not Given ACHS [facility] Protocol Metformin HCl 1,000 mg 08/25/18 16:30 08/27/18 08:25 Glucophage - PO 1,000 mg BIDI LIT Administration Metoprolol Succinate 100 mg 08/26/18 10:00 08/27/18 09:26 Toprol Xl - PO 100 mg DAILY LIT Administration Nifedipine 30 mg 08/26/18 10:00 08/27/18 09:26 Procardia Xl - PO 30 mg DAILY LIT Administration Potassium Chloride 10 meq 08/25/18 22:00 08/27/18 09:26 K-Dur - PO 10 meq BID LIT Administration Tamsulosin HCl 0.4 mg 08/26/18 08:30 08/27/18 08:26 Flomax - PO 0.4 mg DAILY@0830 LIT Administration Zolpidem Tartrate 5 mg 08/25/18 22:00 Ambien - PO HS PRN INSOMNIA A/P 78 y/o M with metastatic bladder CA, recent admission for urosepsis with UCx + for VRE (treated with Linezolid), presents with fever.diarrhea. Has indwelling rahman/stents CR 0.8 doing better On meropenem/fluids Will repeat imaging this admission-- CT c/a/p and bone scan 1 unit of PRBC today for likely chemotherapy induced anemia. will follow
--- NOTE | 2018-08-27 16:43 | PN ---
Progress Note, Physician History of Present Illness: doing well no new issues afebrile - Current Medication List Current Medications: Active Medications Acetaminophen (Tylenol -) 650 mg PO Q4H PRN PRN Reason: FEVER Last Admin: 08/25/18 18:21 Dose: 650 mg Docusate Sodium (Colace -) 100 mg PO TID [facility] Last Admin: 08/27/18 13:07 Dose: Not Given Finasteride (Proscar -) 5 mg PO DAILY [facility] Last Admin: 08/27/18 09:26 Dose: 5 mg Heparin Sodium (Porcine) (Heparin -) 5,000 unit SQ BID [facility] Last Admin: 08/27/18 09:26 Dose: 5,000 unit Meropenem 1 gm/ Dextrose 100 mls @ 200 mls/hr IVPB Q8H-IV [facility] Last Admin: 08/27/18 11:03 Dose: 200 mls/hr Sodium Chloride (1/2 Normal Saline) 1,000 mls @ 75 mls/hr IV ASDIR [facility] Last Admin: 08/27/18 13:56 Dose: 75 mls/hr Insulin Aspart (Novolog Vial Sliding Scale -) 1 vial SQ ACHS [facility]; Protocol Last Admin: 08/27/18 16:10 Dose: Not Given Loperamide HCl (Imodium -) 2 mg PO ONCE ONE Stop: 08/27/18 16:46 Metoprolol Succinate (Toprol Xl -) 100 mg PO DAILY [facility] Last Admin: 08/27/18 09:26 Dose: 100 mg Nifedipine (Procardia Xl -) 30 mg PO DAILY [facility] Last Admin: 08/27/18 09:26 Dose: 30 mg Potassium Chloride (K-Dur -) 10 meq PO BID [facility] Last Admin: 08/27/18 09:26 Dose: 10 meq Tamsulosin HCl (Flomax -) 0.4 mg PO DAILY@0830 [facility] Last Admin: 08/27/18 08:26 Dose: 0.4 mg Zolpidem Tartrate (Ambien -) 5 mg PO HS PRN PRN Reason: INSOMNIA - Objective Vital Signs: Vital Signs Temperature 98.3 F 08/27/18 14:49 Pulse Rate 92 H 08/27/18 14:49 Respiratory Rate 20 08/27/18 14:49 Blood Pressure 150/59 L 08/27/18 14:49 O2 Sat by Pulse Oximetry (%) 96 08/27/18 09:00 Constitutional: Yes: No Distress, Calm Cardiovascular: Yes: Regular Rate and Rhythm Respiratory: Yes: Regular, CTA Bilaterally Gastrointestinal: Yes: Normal Bowel Sounds, Soft Genitourinary: Yes: Galarza Present Musculoskeletal: Yes: WNL Extremities: Yes: WNL Neurological: Yes: Alert, Oriented Psychiatric: Yes: Alert, Oriented Labs: CBC, BMP 08/27/18 06:59 08/27/18 06:59 INR, PTT INR 1.49 (0.83-1.09) H 08/24/18 22:45 Assessment/Plan uti gm positive bacteremia fever weakness plan continue meropenam rest as per the team patient stable patient receiving blood
[2018-08-27] MEDS ORDERED: LOPERAMIDE HCL 2 MG CAPSULE PO ONE (16:45)
--- NOTE | 2018-08-27 21:45 | PN ---
Progress Note, Physician History of Present Illness: Pt still w/ diarrhea - Current Medication List Current Medications: Active Medications Acetaminophen (Tylenol -) 650 mg PO Q4H PRN PRN Reason: FEVER Last Admin: 08/25/18 18:21 Dose: 650 mg Docusate Sodium (Colace -) 100 mg PO TID [facility] Last Admin: 08/27/18 21:27 Dose: Not Given Finasteride (Proscar -) 5 mg PO DAILY [facility] Last Admin: 08/27/18 09:26 Dose: 5 mg Heparin Sodium (Porcine) (Heparin -) 5,000 unit SQ BID [facility] Last Admin: 08/27/18 21:27 Dose: 5,000 unit Meropenem 1 gm/ Dextrose 100 mls @ 200 mls/hr IVPB Q8H-IV [facility] Last Admin: 08/27/18 21:27 Dose: 200 mls/hr Sodium Chloride (1/2 Normal Saline) 1,000 mls @ 75 mls/hr IV ASDIR [facility] Last Admin: 08/27/18 21:27 Dose: 75 mls/hr Insulin Aspart (Novolog Vial Sliding Scale -) 1 vial SQ ACHS [facility]; Protocol Last Admin: 08/27/18 21:31 Dose: 2 units Metoprolol Succinate (Toprol Xl -) 100 mg PO DAILY [facility] Last Admin: 08/27/18 09:26 Dose: 100 mg Nifedipine (Procardia Xl -) 30 mg PO DAILY [facility] Last Admin: 08/27/18 09:26 Dose: 30 mg Potassium Chloride (K-Dur -) 10 meq PO BID [facility] Last Admin: 08/27/18 21:27 Dose: 10 meq Tamsulosin HCl (Flomax -) 0.4 mg PO DAILY@0830 [facility] Last Admin: 08/27/18 08:26 Dose: 0.4 mg Zolpidem Tartrate (Ambien -) 5 mg PO HS PRN PRN Reason: INSOMNIA - Objective Vital Signs: Vital Signs Temperature 99.6 F 08/27/18 18:00 Pulse Rate 88 08/27/18 18:00 Respiratory Rate 20 08/27/18 18:00 Blood Pressure 94/57 L 08/27/18 18:00 O2 Sat by Pulse Oximetry (%) 96 08/27/18 09:00 Constitutional: Yes: Pallor Neck: Yes: WNL, Supple Cardiovascular: Yes: WNL, Regular Rate and Rhythm Respiratory: Yes: WNL, Regular, CTA Bilaterally Gastrointestinal: Yes: WNL, Normal Bowel Sounds, Soft Labs: CBC, BMP 08/27/18 06:59 08/27/18 06:59 INR, PTT INR 1.49 (0.83-1.09) H 08/24/18 22:45 Problem List - Problems (1) Sepsis Assessment/Plan: Due to UTI Bacteremia Check lactic acid in am Cont IV antibxs Urine culture (+) klebsiella 1 Blood culture (+) for staph epidermitides(probable contaminent) Code(s): A41.9 - SEPSIS, UNSPECIFIED ORGANISM Qualifiers: Sepsis type: sepsis due to unspecified organism Qualified Code(s): A41.9 - Sepsis, unspecified organism (2) History of bladder cancer Assessment/Plan: As per onco will get ct scan chest/abd/pelvis and bone scan Code(s): Z85.51 - PERSONAL HISTORY OF MALIGNANT NEOPLASM OF BLADDER (3) Diabetes Assessment/Plan: Will dc metformin due to diarrhea and observe Cont sliding scale w/ coverage Code(s): E11.9 - TYPE 2 DIABETES MELLITUS WITHOUT COMPLICATIONS (4) Diarrhea Assessment/Plan: Pt has had multiple stool cutlures wc have been negative to c diff Will give dose of imodium Code(s): R19.7 - DIARRHEA, UNSPECIFIED (5) HLD (hyperlipidemia) Code(s): E78.5 - HYPERLIPIDEMIA, UNSPECIFIED (6) Hypertension Code(s): I10 - ESSENTIAL (PRIMARY) HYPERTENSION Qualifiers: Hypertension type: other secondary hypertension Qualified Code(s): I15.8 - Other secondary hypertension
[2018-08-28] MEDS ORDERED: PT OWN MED DRAWER 7, Y5N ONE ×2 (01:55→21:04)
[2018-08-28] MEDS: MEROPENEM 1 GM in DEXTROSE 5%-WATER 100 ML IVPB SCH ×2 (02:24→09:54)
[2018-08-28] MEDS: DOCUSATE SODIUM 100 MG CAPSULE (FP) PO SCH ×3 (05:48→21:32)
[2018-08-28 06:16] LABS: BASO % 0.5 % (0-2.0); EOS % 0.3 % (0-4.5); HEMATOCRIT 24.3 % (35.4-49); LYMPH % 15.3 % (8-40); MCHC 33.1 g/dl (32.0-35.9); MEAN CELL VOLUME 69.5 fl (80-96); MEAN PLT VOLUME 8.8 fl (7.5-11.1); MONO % 10.3 % (3.8-10.2); NEUT % 73.6 % (42.8-82.8); PLATELET COUNT 201 K/MM3 (134-434); RBC 3.49 M/mm3 (4.00-5.60); RDW 27.4 % (11.9-15.9); WHITE BLOOD COUNT 7.7 K/mm3 (4.0-10.0)
[2018-08-28] MEDS: INSULIN SLIDING SCALE (NOVOLOG) 1 VIAL SQ SCH ×4 (06:33→21:31)
[2018-08-28 08:02] LABS: ALBUMIN 1.9 g/dl (3.4-5.0); ALK PHOS 1055 U/L (45-117); ANION GAP 9 MMOL/L (8-16); BILIRUBIN,TOTAL 2.6 mg/dL (0.2-1); BLOOD UREA NITROGEN 14 mg/dL (7-18); CALCIUM 7.9 mg/dL (8.5-10.1); CHLORIDE 98 mmol/L (98-107); CO2 23 mmol/L (21-32); CREATININE 0.5 mg/dL (0.55-1.3); GLUCOSE,RANDOM 91 mg/dL (74-106); POTASSIUM 4.2 mmol/L (3.5-5.1); SGOT/AST 49 U/L (15-37); SGPT/ALT 33 U/L (13-61); SODIUM 130 mmol/L (136-145); TOT PROT 6.1 g/dl (6.4-8.2)
[2018-08-28] MEDS: TAMSULOSIN HCL 0.4 MG CAP PO SCH (09:30)
[2018-08-28] MEDS: HEPARIN NA (PORCINE) 5,000 UNITS/ML 1ML VIAL SQ SCH ×2 (09:54→21:32)
[2018-08-28] MEDS: SODIUM CHLORIDE 0.45% 1,000 ML IV SCH ×2 (09:55→13:38)
[2018-08-28] MEDS: FINASTERIDE 5 MG TABLET (FP) PO SCH (09:55)
[2018-08-28] MEDS: NIFEdipine E.R. 30 MG TABLET (FP) PO SCH (09:55)
[2018-08-28] MEDS: POTASSIUM CHLORIDE TABS 10 MEQ TABLET.ER (FP) PO SCH ×2 (09:55→21:32)
--- NOTE | 2018-08-28 10:58 | PN ---
Progress Note (short form) - Note Progress Note: Urology Note: Pt with recurrent sepsis d/t permanent rahman drainage. Abd soft, NT, rahman patent and clear. Renal sono normal upper tracts qwith b/l jj stents. Will recommend removing rahman in am and giving TOV due to fact that urosepsis is due to indwelling rahman.
--- NOTE | 2018-08-28 11:40 | CONS ---
DATE OF CONSULTATION: DATE OF DICTATION: 08/28/2018 HISTORY OF PRESENT ILLNESS: A 78-year-old male with history of metastatic bladder cancer. He was admitted to the hospital via fdc with the diagnosis of urosepsis. He does have history of high blood pressure, diabetes, obstructive uropathy secondary to benign prostatic hypertrophy, calcemia, thoracic aortic aneurysm, cirrhosis, and recurrent bouts of urosepsis. He presented earlier with bilateral hydroureteronephrosis and has undergone double-JJ stents internally. The patient 2 months ago was treated with linezolid after a urine culture grew out VRE. Blood cultures were negative. The patient as well as the patient's state that at the [facility] his temperature was 104.4. Patient was given Tylenol in the emergency room. He did also develop watery diarrhea the past several days. He complains of some dysuria secondary to the Galarza catheter, but denies any chest pain, abdominal pain, nausea or vomiting. ALLERGIES: He denies any allergies. MEDICATIONS: He is on multiple medications, including Flomax and Proscar. PHYSICAL EXAMINATION: Vital Signs: In the emergency room, his temperature was 103.4, blood pressure 114/84, pulse oximetry 95, respirations 18. Abdomen: Presently soft. There is no tenderness. Genitourinary: No bladder distention. Galarza is patent, urine is clear. IMPRESSION AT PRESENT: This is a 78-year-old male with metastatic bladder cancer and recurrent bouts of urinary tract infections secondary most likely to the Galarza catheter. Will recommend to have the patient get trial at voiding. If this fails, patient will benefit from either a suprapubic tube or a prostate vaporization to decrease the return of his uroseptic episodes. Will follow with you. ABELINO EASTMAN M.D. [id number]
[2018-08-28 11:52] LABS: ACANTHOCYTES 1+; ANISOCYTOSIS 2+; MACROCYTOSIS 0; PLATELET ESTIMATE NORMAL; TARGET CELLS 1+
--- NOTE | 2018-08-28 14:36 | PN ---
Progress Note, Physician History of Present Illness: patient stable all cx results noted sensitivities noted urology on case - Current Medication List Current Medications: Active Medications Acetaminophen (Tylenol -) 650 mg PO Q4H PRN PRN Reason: FEVER Last Admin: 08/25/18 18:21 Dose: 650 mg Docusate Sodium (Colace -) 100 mg PO TID [facility] Last Admin: 08/28/18 13:39 Dose: Not Given Finasteride (Proscar -) 5 mg PO DAILY [facility] Last Admin: 08/28/18 09:55 Dose: 5 mg Heparin Sodium (Porcine) (Heparin -) 5,000 unit SQ BID [facility] Last Admin: 08/28/18 09:54 Dose: 5,000 unit Sodium Chloride (1/2 Normal Saline) 1,000 mls @ 75 mls/hr IV ASDIR [facility] Last Admin: 08/28/18 13:38 Dose: 75 mls/hr Ceftriaxone Sodium 1 gm/ (Dextrose) 100 mls @ 200 mls/hr IVPB DAILY [facility]; Protocol Insulin Aspart (Novolog Vial Sliding Scale -) 1 vial SQ ACHS [facility]; Protocol Last Admin: 08/28/18 12:17 Dose: 2 units Linezolid (Zyvox (Restricted To Id) -) 600 mg PO BID [facility] Metoprolol Succinate (Toprol Xl -) 100 mg PO DAILY [facility] Last Admin: 08/28/18 09:55 Dose: 100 mg Nifedipine (Procardia Xl -) 30 mg PO DAILY [facility] Last Admin: 08/28/18 09:55 Dose: 30 mg Potassium Chloride (K-Dur -) 10 meq PO BID [facility] Last Admin: 08/28/18 09:55 Dose: 10 meq Tamsulosin HCl (Flomax -) 0.4 mg PO DAILY@0830 [facility] Last Admin: 08/28/18 09:30 Dose: 0.4 mg Zolpidem Tartrate (Ambien -) 5 mg PO HS PRN PRN Reason: INSOMNIA Last Admin: 08/27/18 23:03 Dose: 5 mg - Objective Vital Signs: Vital Signs Temperature 97.7 F 08/28/18 13:48 Pulse Rate 76 08/28/18 13:48 Respiratory Rate 20 08/28/18 13:48 Blood Pressure 108/75 08/28/18 13:48 O2 Sat by Pulse Oximetry (%) 97 08/28/18 09:00 Constitutional: Yes: No Distress, Calm Cardiovascular: Yes: Regular Rate and Rhythm Respiratory: Yes: Regular, CTA Bilaterally Gastrointestinal: Yes: Normal Bowel Sounds, Soft Genitourinary: Yes: Galarza Present Neurological: Yes: Alert, Oriented Psychiatric: Yes: Alert, Oriented Labs: CBC, BMP 08/28/18 06:00 08/28/18 06:00 INR, PTT INR 1.49 (0.83-1.09) H 08/24/18 22:45 Assessment/Plan uti gm positive bacteremia fever weakness plan will change era to ceftriaxone will add zyox rest continue current mgmt foleys removal
--- NOTE | 2018-08-28 15:52 | PN ---
Progress Note (short form) - Note Progress Note: Patient seen and examined at bedside Denies any symptoms frustrated with going back and forth to and from the hospital Galarza changed diarrhea resolved Afebrile Vital Signs Temperature 97.7 F 08/28/18 13:48 Pulse Rate 76 08/28/18 13:48 Respiratory Rate 20 08/28/18 13:48 Blood Pressure 108/75 08/28/18 13:48 O2 Sat by Pulse Oximetry (%) 97 08/28/18 09:00 PE: NAD lying in bed RRR S1 S2 CTAB Soft non tender non distended normactive bowel sounds Galarza in place 08/28/18 08/28/18 06:00 06:00 WBC 7.7 RBC 3.49 L Hgb 8.0 L Hct 24.3 L MCV 69.5 L MCHC 33.1 RDW 27.4 H Plt Count 201 Neutrophils % 73.6 Lymphocytes % 15.3 D Monocytes % 10.3 H Eosinophils % 0.3 D Basophils % 0.5 Sodium 130 L Potassium 4.2 Chloride 98 Carbon Dioxide 23 Anion Gap 9 BUN 14 Creatinine 0.5 L 08/25/18 00:05 Urine Culture - Final Urine - Urine Clean Catch Klebsiella Pneumoniae Vr Ec Faecium 08/26/18 09:41 Salmonella/Shigella Culture - Preliminary Stool NO ENTERIC PATHOGENS, 24 HOURS, ON PRIMARY PLATES Campylobacter Culture - Pending Yersinia Culture - Preliminary NO ENTERIC PATHOGENS, 24 HOURS, ON PRIMARY PLATES Vibrio Culture - Final NO GROWTH OF VIBRIO SPECIES OBTAINED Escherichia coli 0157 Culture - Final NO GROWTH OF E COLI 0157 OBTAINED 08/24/18 09:40 Blood Culture - Preliminary Blood - Carmela Cath NO GROWTH OBTAINED AFTER 72 HOURS, INCUBATION TO CONTINUE FOR 2 DAYS. 08/24/18 22:45 Blood Culture - Preliminary Blood - Peripheral Venous NO GROWTH OBTAINED AFTER 72 HOURS, INCUBATION TO CONTINUE FOR 2 DAYS. 08/24/18 22:45 Blood Culture - Final Blood - Peripheral Venous Staphylococcus Epidermidis 08/26/18 09:45 Clostridium difficile Antigen (OK) - Final Stool Clostridium difficile Toxin Assay - Final 08/25/18 00:05 Influenza Types A,B Antigen - Final Nasopharyngeal Swab - Final 78M with history of metastatic bladder Ca presents to the hospital from longterm for fever and diarrhea. Problem List: Metastatic bladder Ca Sepsis secondary to UTI HTN BPH DM Plan: Patient needs to have sepsis resolved and needs better performance status before restarting chemotherapy Will get CT scan of Chest abdomen and pelvis with IV contrast to evaluate progression of bladder cancer given elevated alkaline phosphatase 1055 U/L Continue IVF since he will be getting IV contrast Will get bone scan ABx per ID continue trending CBC and transfuse for Hb <7.0 will follow
[2018-08-28] MEDS ORDERED: DEXTROSE 5%-WATER - 50 ML IVPB ONE (16:00)
[2018-08-28] MEDS ORDERED: cefTRIAXone SODIUM 1 GM VIAL ONE (16:00)
[2018-08-28] MEDS: CEFTRIAXONE 1 GM in DEXTROSE 5%-WATER - 50 ML IVPB SCH (16:06)
[2018-08-28] MEDS: LINEZOLID 600 MG TABLET (RESTRICTED TO ID) PO SCH ×2 (17:08→21:32)
--- NOTE | 2018-08-28 18:45 | PN ---
Progress Note, Physician History of Present Illness: Pt feeling weak - Current Medication List Current Medications: Active Medications Acetaminophen (Tylenol -) 650 mg PO Q4H PRN PRN Reason: FEVER Last Admin: 08/25/18 18:21 Dose: 650 mg Docusate Sodium (Colace -) 100 mg PO TID [facility] Last Admin: 08/28/18 13:39 Dose: Not Given Finasteride (Proscar -) 5 mg PO DAILY [facility] Last Admin: 08/28/18 09:55 Dose: 5 mg Heparin Sodium (Porcine) (Heparin -) 5,000 unit SQ BID [facility] Last Admin: 08/28/18 09:54 Dose: 5,000 unit Sodium Chloride (1/2 Normal Saline) 1,000 mls @ 75 mls/hr IV ASDIR [facility] Last Admin: 08/28/18 13:38 Dose: 75 mls/hr Ceftriaxone Sodium 1 gm/ (Dextrose) 50 mls @ 100 mls/hr IVPB DAILY [facility]; Protocol Last Admin: 08/28/18 16:06 Dose: 100 mls/hr Insulin Aspart (Novolog Vial Sliding Scale -) 1 vial SQ ACHS [facility]; Protocol Last Admin: 08/28/18 17:13 Dose: 2 units Linezolid (Zyvox (Restricted To Id) -) 600 mg PO BID [facility] Last Admin: 08/28/18 17:08 Dose: 600 mg Metoprolol Succinate (Toprol Xl -) 100 mg PO DAILY [facility] Last Admin: 08/28/18 09:55 Dose: 100 mg Nifedipine (Procardia Xl -) 30 mg PO DAILY [facility] Last Admin: 08/28/18 09:55 Dose: 30 mg Potassium Chloride (K-Dur -) 10 meq PO BID [facility] Last Admin: 08/28/18 09:55 Dose: 10 meq Tamsulosin HCl (Flomax -) 0.4 mg PO DAILY@0830 [facility] Last Admin: 08/28/18 09:30 Dose: 0.4 mg Zolpidem Tartrate (Ambien -) 5 mg PO HS PRN PRN Reason: INSOMNIA Last Admin: 08/27/18 23:03 Dose: 5 mg - Objective Vital Signs: Vital Signs Temperature 97.7 F 08/28/18 13:48 Pulse Rate 76 08/28/18 13:48 Respiratory Rate 20 08/28/18 13:48 Blood Pressure 108/75 08/28/18 13:48 O2 Sat by Pulse Oximetry (%) 97 08/28/18 09:00 Neck: Yes: WNL, Supple Cardiovascular: Yes: WNL, Regular Rate and Rhythm Respiratory: Yes: WNL, Regular, CTA Bilaterally Gastrointestinal: Yes: WNL, Normal Bowel Sounds, Soft Labs: CBC, BMP 08/28/18 06:00 08/28/18 06:00 INR, PTT INR 1.49 (0.83-1.09) H 08/24/18 22:45 Problem List - Problems (1) Sepsis Assessment/Plan: Due to UTI Bacteremia Check lactic acid in am Cont IV antibxs Urine culture (+) klebsiella 1 Blood culture (+) for staph epidermitides(probable contaminent) Code(s): A41.9 - SEPSIS, UNSPECIFIED ORGANISM Qualifiers: Sepsis type: sepsis due to unspecified organism Qualified Code(s): A41.9 - Sepsis, unspecified organism (2) History of bladder cancer Assessment/Plan: As per onco ct scan chest/abd/pelvis and bone scan pending Code(s): Z85.51 - PERSONAL HISTORY OF MALIGNANT NEOPLASM OF BLADDER (3) Diabetes Code(s): E11.9 - TYPE 2 DIABETES MELLITUS WITHOUT COMPLICATIONS (4) Diarrhea Code(s): R19.7 - DIARRHEA, UNSPECIFIED (5) HLD (hyperlipidemia) Code(s): E78.5 - HYPERLIPIDEMIA, UNSPECIFIED (6) Hypertension Code(s): I10 - ESSENTIAL (PRIMARY) HYPERTENSION Qualifiers: Hypertension type: other secondary hypertension Qualified Code(s): I15.8 - Other secondary hypertension
--- NOTE | 2018-08-28 22:01 | PN ---
Progress Note (short form) - Note Progress Note: Patient seen and examined Feels better AFVSS Cor: RSR, No murmurs, No gallops Lungs: Clear to P&A Abd: Soft, Normal bowel sounds, No organomegaly Ext:No significant edema Labs/Meds reviewed A/P 78 y/o with metastatic bladder cancer, recurrent UTIS, obstructive uropathy Readmitted with UTI Awaiting CT scans/bone scan for staging w/u
[2018-08-28] MEDS: ZOLPIDEM TARTRATE 5 MG TABLET PO PRN (23:40)
[2018-08-29] MEDS: DOCUSATE SODIUM 100 MG CAPSULE (FP) PO SCH ×3 (05:49→22:18)
[2018-08-29] MEDS: INSULIN SLIDING SCALE (NOVOLOG) 1 VIAL SQ SCH ×4 (06:18→22:21)
[2018-08-29 06:46] LABS: BASO % 0.7 % (0-2.0); EOS % 0.2 % (0-4.5); HEMATOCRIT 26.2 % (35.4-49); HEMOGLOBIN 8.6 GM/dL (11.7-16.9); MCH 22.9 pg (25.7-33.7); MCHC 32.8 g/dl (32.0-35.9); MEAN CELL VOLUME 69.8 fl (80-96); MEAN PLT VOLUME 9.2 fl (7.5-11.1); MONO % 8.8 % (3.8-10.2); NEUT % 80.3 % (42.8-82.8); PLATELET COUNT 238 K/MM3 (134-434); RBC 3.76 M/mm3 (4.00-5.60); WHITE BLOOD COUNT 8.2 K/mm3 (4.0-10.0)
[2018-08-29 07:55] LABS: ALK PHOS 1104 U/L (45-117); ANION GAP 10 MMOL/L (8-16); BILIRUBIN,TOTAL 2.2 mg/dL (0.2-1); BLOOD UREA NITROGEN 13 mg/dL (7-18); CHLORIDE 96 mmol/L (98-107); CO2 23 mmol/L (21-32); CREATININE 0.5 mg/dL (0.55-1.3); GLUCOSE,RANDOM 118 mg/dL (74-106); POTASSIUM 4.2 mmol/L (3.5-5.1); SGOT/AST 35 U/L (15-37); SGPT/ALT 30 U/L (13-61); SODIUM 129 mmol/L (136-145); TOT PROT 6.2 g/dl (6.4-8.2)
--- NOTE | 2018-08-29 09:04 | PN ---
Progress Note, Physician History of Present Illness: stable doing well no issues - Current Medication List Current Medications: Active Medications Acetaminophen (Tylenol -) 650 mg PO Q4H PRN PRN Reason: FEVER Last Admin: 08/25/18 18:21 Dose: 650 mg Docusate Sodium (Colace -) 100 mg PO TID [facility] Last Admin: 08/29/18 05:49 Dose: Not Given Finasteride (Proscar -) 5 mg PO DAILY [facility] Last Admin: 08/28/18 09:55 Dose: 5 mg Heparin Sodium (Porcine) (Heparin -) 5,000 unit SQ BID [facility] Last Admin: 08/28/18 21:32 Dose: 5,000 unit Sodium Chloride (1/2 Normal Saline) 1,000 mls @ 75 mls/hr IV ASDIR [facility] Last Admin: 08/28/18 13:38 Dose: 75 mls/hr Ceftriaxone Sodium 1 gm/ (Dextrose) 50 mls @ 100 mls/hr IVPB DAILY [facility]; Protocol Last Admin: 08/28/18 16:06 Dose: 100 mls/hr Insulin Aspart (Novolog Vial Sliding Scale -) 1 vial SQ ACHS [facility]; Protocol Last Admin: 08/29/18 06:18 Dose: Not Given Linezolid (Zyvox (Restricted To Id) -) 600 mg PO BID [facility] Last Admin: 08/28/18 21:32 Dose: 600 mg Metoprolol Succinate (Toprol Xl -) 100 mg PO DAILY [facility] Last Admin: 08/28/18 09:55 Dose: 100 mg Nifedipine (Procardia Xl -) 30 mg PO DAILY [facility] Last Admin: 08/28/18 09:55 Dose: 30 mg Potassium Chloride (K-Dur -) 10 meq PO BID [facility] Last Admin: 08/28/18 21:32 Dose: 10 meq Tamsulosin HCl (Flomax -) 0.4 mg PO DAILY@0830 [facility] Last Admin: 08/28/18 09:30 Dose: 0.4 mg Zolpidem Tartrate (Ambien -) 5 mg PO HS PRN PRN Reason: INSOMNIA Last Admin: 08/28/18 23:40 Dose: 5 mg - Objective Vital Signs: Vital Signs Temperature 100 F H 08/29/18 06:00 Pulse Rate 84 08/29/18 06:00 Respiratory Rate 18 08/29/18 06:00 Blood Pressure 139/80 08/29/18 06:00 O2 Sat by Pulse Oximetry (%) 97 08/28/18 22:00 Constitutional: Yes: No Distress, Calm Cardiovascular: Yes: Regular Rate and Rhythm Respiratory: Yes: Regular, CTA Bilaterally Gastrointestinal: Yes: Normal Bowel Sounds, Soft Genitourinary: Yes: Galarza Present Musculoskeletal: Yes: WNL Extremities: Yes: WNL Neurological: Yes: Alert, Oriented Psychiatric: Yes: Alert, Oriented Labs: CBC, BMP 08/29/18 06:00 08/29/18 06:00 INR, PTT INR 1.49 (0.83-1.09) H 08/24/18 22:45 Assessment/Plan uti gm positive bacteremia fever weakness continue current mgmt imaging studies awaited plan is to d/c the foleys catheter rest as per the team
[2018-08-29] MEDS ORDERED: PT OWN MED DRAWER 7, Y5N ONE (11:01)
[2018-08-29] MEDS ORDERED: cefTRIAXone SODIUM 1 GM VIAL ONE (11:02)
[2018-08-29] MEDS ORDERED: DEXTROSE 5%-WATER - 50 ML IVPB ONE (11:02)
[2018-08-29] MEDS: FINASTERIDE 5 MG TABLET (FP) PO SCH (11:08)
[2018-08-29] MEDS: CEFTRIAXONE 1 GM in DEXTROSE 5%-WATER - 50 ML IVPB SCH (11:08)
[2018-08-29] MEDS: TAMSULOSIN HCL 0.4 MG CAP PO SCH (11:09)
[2018-08-29] MEDS: POTASSIUM CHLORIDE TABS 10 MEQ TABLET.ER (FP) PO SCH ×2 (11:09→22:17)
[2018-08-29] MEDS: NIFEdipine E.R. 30 MG TABLET (FP) PO SCH (11:09)
[2018-08-29] MEDS: HEPARIN NA (PORCINE) 5,000 UNITS/ML 1ML VIAL SQ SCH ×2 (11:09→22:17)
[2018-08-29] MEDS: LINEZOLID 600 MG TABLET (RESTRICTED TO ID) PO SCH ×2 (11:10→22:54)
--- NOTE | 2018-08-29 11:58 | PN ---
Progress Note (short form) - Note Progress Note: Patient seen and examined at bedside Denies any symptoms Had Bone scan injection done this AM and will go back for scan soon Had CT Chest abdomen and pelvis done and results pending Afebrile Vital Signs Temperature 100 F H 08/29/18 06:00 Pulse Rate 84 08/29/18 06:00 Respiratory Rate 18 08/29/18 06:00 Blood Pressure 139/80 08/29/18 06:00 O2 Sat by Pulse Oximetry (%) 97 08/28/18 22:00 PE: NAD lying in bed RRR S1 S2 CTAB Soft non tender non distended normactive bowel sounds Galarza in place 08/29/18 08/29/18 06:00 06:00 WBC 8.2 RBC 3.76 L Hgb 8.6 L Hct 26.2 L MCV 69.8 L MCHC 32.8 RDW 28.0 H Plt Count 238 Neutrophils % 80.3 Lymphocytes % 10.0 D Monocytes % 8.8 Eosinophils % 0.2 Basophils % 0.7 Sodium 129 L Potassium 4.2 Chloride 96 L Carbon Dioxide 23 Anion Gap 10 BUN 13 Creatinine 0.5 L 08/24/18 09:40 Blood Culture - Preliminary Blood - Carmela Cath NO GROWTH OBTAINED AFTER 96 HOURS, INCUBATION TO CONTINUE FOR 1 DAYS. 08/26/18 09:41 Salmonella/Shigella Culture - Final Stool NO GROWTH OF SALMONELLA OR SHIGELLA SPECIES OBTAINED Campylobacter Culture - Final NO GROWTH OF CAMPYLOBACTER SPECIES OBTAINED Yersinia Culture - Final NO GROWTH OF YERSINIA SPECIES OBTAINED Vibrio Culture - Final NO GROWTH OF VIBRIO SPECIES OBTAINED Escherichia coli 0157 Culture - Final NO GROWTH OF E COLI 0157 OBTAINED 08/24/18 22:45 Blood Culture - Preliminary Blood - Peripheral Venous NO GROWTH OBTAINED AFTER 96 HOURS, INCUBATION TO CONTINUE FOR 1 DAYS. 08/25/18 00:05 Urine Culture - Final Urine - Urine Clean Catch Klebsiella Pneumoniae Vr Ec Faecium 08/24/18 22:45 Blood Culture - Final Blood - Peripheral Venous Staphylococcus Epidermidis 08/26/18 09:45 Clostridium difficile Antigen (OK) - Final Stool Clostridium difficile Toxin Assay - Final 08/25/18 00:05 Influenza Types A,B Antigen - Final Nasopharyngeal Swab - Final 78M with history of metastatic bladder Ca [facility]. Problem List: Metastatic bladder Ca Sepsis secondary to UTI HTN BPH DM Plan: Patient needs to have sepsis resolved and needs better performance status before restarting chemotherapy CT scan of Chest abdomen and pelvis with IV contrast to evaluate progression of bladder cancer given elevated alkaline phosphatase-Pending Continue IVF since he will be getting IV contrast bone scan pending ABx per ID continue trending CBC and transfuse for Hb <7.0 will follow
--- NOTE | 2018-08-29 18:38 | PN ---
Progress Note, Physician History of Present Illness: No new complaint - Current Medication List Current Medications: Active Medications Acetaminophen (Tylenol -) 650 mg PO Q4H PRN PRN Reason: FEVER Last Admin: 08/25/18 18:21 Dose: 650 mg Docusate Sodium (Colace -) 100 mg PO TID [facility] Last Admin: 08/29/18 15:37 Dose: 100 mg Finasteride (Proscar -) 5 mg PO DAILY [facility] Last Admin: 08/29/18 11:08 Dose: 5 mg Heparin Sodium (Porcine) (Heparin -) 5,000 unit SQ BID [facility] Last Admin: 08/29/18 11:09 Dose: 5,000 unit Sodium Chloride (1/2 Normal Saline) 1,000 mls @ 75 mls/hr IV ASDIR [facility] Last Admin: 08/28/18 13:38 Dose: 75 mls/hr Ceftriaxone Sodium 1 gm/ (Dextrose) 50 mls @ 100 mls/hr IVPB DAILY [facility]; Protocol Last Admin: 08/29/18 11:08 Dose: 100 mls/hr Insulin Aspart (Novolog Vial Sliding Scale -) 1 vial SQ ACHS [facility]; Protocol Last Admin: 08/29/18 17:42 Dose: 6 units Linezolid (Zyvox (Restricted To Id) -) 600 mg PO BID [facility] Last Admin: 08/29/18 11:10 Dose: 600 mg Metoprolol Succinate (Toprol Xl -) 100 mg PO DAILY [facility] Last Admin: 08/29/18 11:09 Dose: 100 mg Nifedipine (Procardia Xl -) 30 mg PO DAILY [facility] Last Admin: 08/29/18 11:09 Dose: 30 mg Potassium Chloride (K-Dur -) 10 meq PO BID [facility] Last Admin: 08/29/18 11:09 Dose: 10 meq Tamsulosin HCl (Flomax -) 0.4 mg PO DAILY@0830 [facility] Last Admin: 08/29/18 11:09 Dose: 0.4 mg Zolpidem Tartrate (Ambien -) 5 mg PO HS PRN PRN Reason: INSOMNIA Last Admin: 08/28/18 23:40 Dose: 5 mg - Objective Vital Signs: Vital Signs Temperature 97.4 F L 08/29/18 14:33 Pulse Rate 74 08/29/18 14:33 Respiratory Rate 20 08/29/18 14:33 Blood Pressure 139/72 08/29/18 14:33 O2 Sat by Pulse Oximetry (%) 97 08/29/18 09:00 Constitutional: Yes: Pallor Neck: Yes: WNL, Supple Cardiovascular: Yes: WNL, Regular Rate and Rhythm Respiratory: Yes: WNL, Regular, CTA Bilaterally Gastrointestinal: Yes: WNL, Normal Bowel Sounds, Soft Labs: CBC, BMP 08/29/18 06:00 08/29/18 06:00 INR, PTT INR 1.49 (0.83-1.09) H 08/24/18 22:45 Problem List - Problems (1) Sepsis Assessment/Plan: Due to UTI Bacteremia Cont IV antibxs Urine culture (+) klebsiella 1 Blood culture (+) for staph epidermitides(probable contaminent) Code(s): A41.9 - SEPSIS, UNSPECIFIED ORGANISM Qualifiers: Sepsis type: sepsis due to unspecified organism Qualified Code(s): A41.9 - Sepsis, unspecified organism (2) History of bladder cancer Assessment/Plan: As per onco ct scan chest/abd/pelvis showed bone mets and liver mets Bone scan pending Code(s): Z85.51 - PERSONAL HISTORY OF MALIGNANT NEOPLASM OF BLADDER (3) Diabetes Assessment/Plan: Restart metformin Cont sliding scale w/ coverage Code(s): E11.9 - TYPE 2 DIABETES MELLITUS WITHOUT COMPLICATIONS (4) Diarrhea Assessment/Plan: Pt has had multiple stool cutlures wc have been negative to c diff Code(s): R19.7 - DIARRHEA, UNSPECIFIED (5) HLD (hyperlipidemia) Code(s): E78.5 - HYPERLIPIDEMIA, UNSPECIFIED (6) Hypertension Code(s): I10 - ESSENTIAL (PRIMARY) HYPERTENSION Qualifiers: Hypertension type: other secondary hypertension Qualified Code(s): I15.8 - Other secondary hypertension
--- NOTE | 2018-08-29 19:30 | PN ---
Teaching Attending Note Name of Resident: Karthikeyan Agustin ATTENDING PHYSICIAN STATEMENT I saw and evaluated the patient. I reviewed the resident's note and discussed the case with the resident. I agree with the resident's findings and plan as documented. SUBJECTIVE: Patient seen and examined Denies pain Last Vital Signs Temp Pulse Resp BP Pulse Ox 98 F 82 20 139/72 97 08/29/18 18:00 08/29/18 18:00 08/29/18 18:00 08/29/18 14:33 08/29/18 09:00 HEENT: FLETCHER, EOM Intact Oropharynx: No thrush, No mucositis Cor: RSR, No murmurs, No gallops Lungs diminished breath sounds Abd: Soft, Normal bowel sounds, hepatosplenomegaly Ext:No significant edema Skin: No rashes, Integument intact nephrostomy drainage CBC, BMP 08/29/18 06:00 08/29/18 06:00 Current Medications Generic Name Dose Route Start Last Admin Trade Name Freq PRN Reason Stop Dose Admin Acetaminophen 650 mg 08/25/18 17:58 08/25/18 18:21 Tylenol - PO 650 mg Q4H PRN Administration FEVER Docusate Sodium 100 mg 08/25/18 14:00 08/29/18 15:37 Colace - PO 100 mg TID LIT Administration Finasteride 5 mg 08/26/18 10:00 08/29/18 11:08 Proscar - PO 5 mg DAILY [facility]IT Administration Heparin Sodium (Porcine) 5,000 unit 08/25/18 22:00 08/29/18 11:09 Heparin - SQ 5,000 unit BID LIT Administration Sodium Chloride 1,000 mls @ 75 mls/hr 08/26/18 06:00 08/28/18 13:38 1/2 Normal Saline IV 75 mls/hr ASDIR LIT Administration Ceftriaxone Sodium 1 gm/ 50 mls @ 100 mls/hr 08/28/18 14:45 08/29/18 11:08 Dextrose IVPB 100 mls/hr DAILY LIT Administration Protocol Insulin Aspart 1 vial 08/25/18 16:30 08/29/18 17:42 Novolog Vial Sliding Scale - SQ 6 units ACHS [facility]TI Administration Protocol Linezolid 600 mg 08/28/18 15:00 08/29/18 11:10 Zyvox (Restricted To Id) - PO 600 mg BID [facility]IT Administration Metoprolol Succinate 100 mg 08/26/18 10:00 08/29/18 11:09 Toprol Xl - PO 100 mg DAILY [facility]IT Administration Nifedipine 30 mg 08/26/18 10:00 08/29/18 11:09 Procardia Xl - PO 30 mg DAILY LIT Administration Potassium Chloride 10 meq 08/25/18 22:00 08/29/18 11:09 K-Dur - PO 10 meq BID LIT Administration Tamsulosin HCl 0.4 mg 08/26/18 08:30 08/29/18 11:09 Flomax - PO 0.4 mg DAILY@0830 LIT Administration Zolpidem Tartrate 5 mg 08/28/18 22:56 08/28/18 23:40 Ambien - PO 5 mg HS PRN Administration INSOMNIA CT- extensive liver mets; hepatosplenomegaly Bone scan pending Impression: metastatic bladder ca liver and bone mets For nephrostomy change. Unfortunately with multiple infections and obstructive uropathy patient has had significant delays in treatment. OBJECTIVE: ASSESSMENT AND PLAN:
[2018-08-29] MEDS: ZOLPIDEM TARTRATE 5 MG TABLET PO PRN (22:17)
[2018-08-29] MEDS: ACETAMINOPHEN 325 MG TABLET (FP) PO PRN (22:18)
[2018-08-29] MEDS: SODIUM CHLORIDE 0.45% 1,000 ML IV SCH (22:20)
[2018-08-30] MEDS: DOCUSATE SODIUM 100 MG CAPSULE (FP) PO SCH ×3 (05:21→22:05)
[2018-08-30] MEDS: INSULIN SLIDING SCALE (NOVOLOG) 1 VIAL SQ SCH ×4 (06:06→22:07)
[2018-08-30] MEDS: ACETAMINOPHEN 325 MG TABLET (FP) PO PRN (07:40)
[2018-08-30 08:06] LABS: BASO % 0.6 % (0-2.0); EOS % 0.7 % (0-4.5); HEMATOCRIT 26.8 % (35.4-49); HEMOGLOBIN 8.7 GM/dL (11.7-16.9); LYMPH % 13.4 % (8-40); MCH 22.6 pg (25.7-33.7); MCHC 32.3 g/dl (32.0-35.9); MEAN PLT VOLUME 9.6 fl (7.5-11.1); MONO % 8.7 % (3.8-10.2); NEUT % 76.6 % (42.8-82.8); PLATELET COUNT 258 K/MM3 (134-434); RBC 3.83 M/mm3 (4.00-5.60); RDW 27.8 % (11.9-15.9); WHITE BLOOD COUNT 7.2 K/mm3 (4.0-10.0)
[2018-08-30 08:29] LABS: ALBUMIN 1.9 g/dl (3.4-5.0); ALK PHOS 994 U/L (45-117); ANION GAP 8 MMOL/L (8-16); BLOOD UREA NITROGEN 11 mg/dL (7-18); CALCIUM 7.9 mg/dL (8.5-10.1); CHLORIDE 98 mmol/L (98-107); CO2 24 mmol/L (21-32); CREATININE 0.4 mg/dL (0.55-1.3); GLUCOSE,RANDOM 108 mg/dL (74-106); MAGNESIUM 1.8 mg/dL (1.8-2.4); PHOSPHOROUS 3.8 mg/dL (2.5-4.9); POTASSIUM 4.2 mmol/L (3.5-5.1); SGOT/AST 26 U/L (15-37); SGPT/ALT 25 U/L (13-61); SODIUM 131 mmol/L (136-145)
[2018-08-30] MEDS ORDERED: PT OWN MED DRAWER 7, Y5N ONE ×2 (09:15→20:33)
[2018-08-30] MEDS ORDERED: cefTRIAXone SODIUM 1 GM VIAL ONE (09:15)
[2018-08-30] MEDS ORDERED: DEXTROSE 5%-WATER - 50 ML IVPB ONE (09:15)
[2018-08-30] MEDS: NIFEdipine E.R. 30 MG TABLET (FP) PO SCH (09:56)
[2018-08-30] MEDS: POTASSIUM CHLORIDE TABS 10 MEQ TABLET.ER (FP) PO SCH ×2 (09:56→22:06)
[2018-08-30] MEDS: TAMSULOSIN HCL 0.4 MG CAP PO SCH (09:56)
[2018-08-30] MEDS: CEFTRIAXONE 1 GM in DEXTROSE 5%-WATER - 50 ML IVPB SCH (09:57)
[2018-08-30] MEDS: HEPARIN NA (PORCINE) 5,000 UNITS/ML 1ML VIAL SQ SCH ×2 (09:59→22:06)
[2018-08-30] MEDS: FINASTERIDE 5 MG TABLET (FP) PO SCH (09:59)
[2018-08-30] MEDS: LINEZOLID 600 MG TABLET (RESTRICTED TO ID) PO SCH ×2 (10:00→22:08)
--- NOTE | 2018-08-30 10:59 | PN ---
Progress Note, Physician History of Present Illness: no new issues patients foleys catheter is removed - Current Medication List Current Medications: Active Medications Acetaminophen (Tylenol -) 650 mg PO Q4H PRN PRN Reason: FEVER Last Admin: 08/30/18 07:40 Dose: 650 mg Docusate Sodium (Colace -) 100 mg PO TID [facility] Last Admin: 08/30/18 05:21 Dose: Not Given Finasteride (Proscar -) 5 mg PO DAILY [facility] Last Admin: 08/30/18 09:59 Dose: 5 mg Heparin Sodium (Porcine) (Heparin -) 5,000 unit SQ BID [facility] Last Admin: 08/30/18 09:59 Dose: 5,000 unit Sodium Chloride (1/2 Normal Saline) 1,000 mls @ 75 mls/hr IV ASDIR [facility] Last Admin: 08/29/18 22:20 Dose: 75 mls/hr Ceftriaxone Sodium 1 gm/ (Dextrose) 50 mls @ 100 mls/hr IVPB DAILY [facility]; Protocol Last Admin: 08/30/18 09:57 Dose: 100 mls/hr Insulin Aspart (Novolog Vial Sliding Scale -) 1 vial SQ ACHS [facility]; Protocol Last Admin: 08/30/18 06:06 Dose: Not Given Linezolid (Zyvox (Restricted To Id) -) 600 mg PO BID [facility] Last Admin: 08/30/18 10:00 Dose: 600 mg Metoprolol Succinate (Toprol Xl -) 100 mg PO DAILY [facility] Last Admin: 08/30/18 09:56 Dose: 100 mg Nifedipine (Procardia Xl -) 30 mg PO DAILY [facility] Last Admin: 08/30/18 09:56 Dose: 30 mg Potassium Chloride (K-Dur -) 10 meq PO BID [facility] Last Admin: 08/30/18 09:56 Dose: 10 meq Tamsulosin HCl (Flomax -) 0.4 mg PO DAILY@0830 [facility] Last Admin: 08/30/18 09:56 Dose: 0.4 mg Zolpidem Tartrate (Ambien -) 5 mg PO HS PRN PRN Reason: INSOMNIA Last Admin: 08/29/18 22:17 Dose: 5 mg - Objective Vital Signs: Vital Signs Temperature 98.2 F 08/30/18 05:42 Pulse Rate 74 08/30/18 05:42 Respiratory Rate 20 11/14/18 05:42 Blood Pressure 123/80 11/14/18 05:42 O2 Sat by Pulse Oximetry (%) 97 08/29/18 21:00 Constitutional: Yes: No Distress, Calm Cardiovascular: Yes: Regular Rate and Rhythm Respiratory: Yes: Regular, CTA Bilaterally Gastrointestinal: Yes: Normal Bowel Sounds, Soft Musculoskeletal: Yes: WNL Extremities: Yes: WNL Neurological: Yes: Alert, Oriented Psychiatric: Yes: Alert, Oriented Labs: CBC, BMP 08/30/18 06:00 08/30/18 06:00 INR, PTT INR 1.49 (0.83-1.09) H 08/24/18 22:45 Assessment/Plan Problem List - Problems (1) Sepsis Code(s): A41.9 - SEPSIS, UNSPECIFIED ORGANISM Qualifiers: Sepsis type: sepsis due to unspecified organism Qualified Code(s): A41.9 - Sepsis, unspecified organism (2) History of bladder cancer Code(s): Z85.51 - PERSONAL HISTORY OF MALIGNANT NEOPLASM OF BLADDER (3) Diabetes Code(s): E11.9 - TYPE 2 DIABETES MELLITUS WITHOUT COMPLICATIONS (4) Diarrhea Code(s): R19.7 - DIARRHEA, UNSPECIFIED (5) HLD (hyperlipidemia) Code(s): E78.5 - HYPERLIPIDEMIA, UNSPECIFIED (6) Hypertension Code(s): I10 - ESSENTIAL (PRIMARY) HYPERTENSION Qualifiers: Hypertension type: other secondary hypertension Qualified Code(s): I15.8 - Other secondary hypertension plan continue current mgmt will change to oral tomorrow rest as per the team patient stable monitor urine output
[2018-08-30] MEDS ORDERED: INSULIN (NOVOLOG) ASPART 100 UNITS/ML 10ML VIAL ONE (12:59)
[2018-08-30] MEDS: SODIUM CHLORIDE 0.45% 1,000 ML IV SCH ×2 (18:14→22:08)
--- NOTE | 2018-08-30 21:08 | PN ---
Progress Note (short form) - Note Progress Note: Patient seen and examined Galarza catheter out TOV Difficult to quntitate urine output as patient has no control of urination and urinates into Depends Remains afebrile Last Vital Signs Temp Pulse Resp BP Pulse Ox 97.7 F 71 20 109/64 97 08/30/18 18:00 08/30/18 18:00 08/30/18 20:38 08/30/18 18:00 08/30/18 20:38 HEENT: FLETCHER, EOM Intact Oropharynx: No thrush, No mucositis Cor: RSR, No murmurs, No gallops Lungs: Clear to P&A Abd: Soft, Normal bowel sounds, No organomegaly Ext:No significant edema Skin: No rashes, Integument intact CBC, BMP 08/30/18 06:00 08/30/18 06:00 Current Medications Generic Name Dose Route Start Last Admin Trade Name Freq PRN Reason Stop Dose Admin Acetaminophen 650 mg 08/25/18 17:58 08/30/18 07:40 Tylenol - PO 650 mg Q4H PRN Administration FEVER Docusate Sodium 100 mg 08/25/18 14:00 08/30/18 18:17 Colace - PO 100 mg TID LIT Administration Finasteride 5 mg 08/26/18 10:00 08/30/18 09:59 Proscar - PO 5 mg DAILY [facility]IT Administration Heparin Sodium (Porcine) 5,000 unit 08/25/18 22:00 08/30/18 09:59 Heparin - SQ 5,000 unit BID LIT Administration Sodium Chloride 1,000 mls @ 75 mls/hr 08/26/18 06:00 08/30/18 18:14 1/2 Normal Saline IV Not Given ASDIR LIT Ceftriaxone Sodium 1 gm/ 50 mls @ 100 mls/hr 08/28/18 14:45 08/30/18 09:57 Dextrose IVPB 100 mls/hr DAILY LIT Administration Protocol Insulin Aspart 1 vial 08/25/18 16:30 08/30/18 18:16 Novolog Vial Sliding Scale - SQ 2 units ACHS [facility]IT Administration Protocol Linezolid 600 mg 08/28/18 15:00 08/30/18 10:00 Zyvox (Restricted To Id) - PO 600 mg BID [facility]IT Administration Metoprolol Succinate 100 mg 08/26/18 10:00 08/30/18 09:56 Toprol Xl - PO 100 mg DAILY [facility]IT Administration Nifedipine 30 mg 08/26/18 10:00 08/30/18 09:56 Procardia Xl - PO 30 mg DAILY LIT Administration Potassium Chloride 10 meq 08/25/18 22:00 08/30/18 09:56 K-Dur - PO 10 meq BID LIT Administration Tamsulosin HCl 0.4 mg 08/26/18 08:30 08/30/18 09:56 Flomax - PO 0.4 mg DAILY@0830 LIT Administration Zolpidem Tartrate 5 mg 08/28/18 22:56 08/29/18 22:17 Ambien - PO 5 mg HS PRN Administration INSOMNIA Impression: Metastatic bladder ca Sepsis Anemia Plan: antibiotics per ID Hopefully can resume treatment in the near future.
[2018-08-30] MEDS: ZOLPIDEM TARTRATE 5 MG TABLET PO PRN (22:05)
--- NOTE | 2018-08-30 23:34 | PN ---
Progress Note, Physician - Current Medication List Current Medications: Active Medications Acetaminophen (Tylenol -) 650 mg PO Q4H PRN PRN Reason: FEVER Last Admin: 08/30/18 07:40 Dose: 650 mg Docusate Sodium (Colace -) 100 mg PO TID [facility] Last Admin: 08/30/18 22:05 Dose: 100 mg Finasteride (Proscar -) 5 mg PO DAILY [facility] Last Admin: 08/30/18 09:59 Dose: 5 mg Heparin Sodium (Porcine) (Heparin -) 5,000 unit SQ BID [facility] Last Admin: 08/30/18 22:06 Dose: 5,000 unit Sodium Chloride (1/2 Normal Saline) 1,000 mls @ 75 mls/hr IV ASDIR [facility] Last Admin: 08/30/18 22:08 Dose: 75 mls/hr Ceftriaxone Sodium 1 gm/ (Dextrose) 50 mls @ 100 mls/hr IVPB DAILY [facility]; Protocol Last Admin: 08/30/18 09:57 Dose: 100 mls/hr Insulin Aspart (Novolog Vial Sliding Scale -) 1 vial SQ ACHS [facility]; Protocol Last Admin: 08/30/18 22:07 Dose: 4 units Linezolid (Zyvox (Restricted To Id) -) 600 mg PO BID [facility] Last Admin: 08/30/18 22:08 Dose: 600 mg Metoprolol Succinate (Toprol Xl -) 100 mg PO DAILY [facility] Last Admin: 08/30/18 09:56 Dose: 100 mg Nifedipine (Procardia Xl -) 30 mg PO DAILY [facility] Last Admin: 08/30/18 09:56 Dose: 30 mg Potassium Chloride (K-Dur -) 10 meq PO BID [facility] Last Admin: 08/30/18 22:06 Dose: 10 meq Tamsulosin HCl (Flomax -) 0.4 mg PO DAILY@0830 [facility] Last Admin: 08/30/18 09:56 Dose: 0.4 mg Zolpidem Tartrate (Ambien -) 5 mg PO HS PRN PRN Reason: INSOMNIA Last Admin: 08/30/18 22:05 Dose: 5 mg - Objective Vital Signs: Vital Signs Temperature 97.7 F 08/30/18 18:00 Pulse Rate 71 08/30/18 18:00 Respiratory Rate 20 08/30/18 20:38 Blood Pressure 109/64 08/30/18 18:00 O2 Sat by Pulse Oximetry (%) 97 08/30/18 20:38 Labs: CBC, BMP 08/30/18 06:00 08/30/18 06:00 INR, PTT INR 1.49 (0.83-1.09) H 08/24/18 22:45 Problem List - Problems (1) Sepsis Code(s): A41.9 - SEPSIS, UNSPECIFIED ORGANISM Qualifiers: Sepsis type: sepsis due to unspecified organism Qualified Code(s): A41.9 - Sepsis, unspecified organism (2) History of bladder cancer Code(s): Z85.51 - PERSONAL HISTORY OF MALIGNANT NEOPLASM OF BLADDER (3) Diabetes Code(s): E11.9 - TYPE 2 DIABETES MELLITUS WITHOUT COMPLICATIONS (4) Diarrhea Code(s): R19.7 - DIARRHEA, UNSPECIFIED (5) HLD (hyperlipidemia) Code(s): E78.5 - HYPERLIPIDEMIA, UNSPECIFIED (6) Hypertension Code(s): I10 - ESSENTIAL (PRIMARY) HYPERTENSION Qualifiers: Hypertension type: other secondary hypertension Qualified Code(s): I15.8 - Other secondary hypertension
[2018-08-31] MEDS: SODIUM CHLORIDE 0.45% 1,000 ML IV SCH ×2 (06:29→13:43)
[2018-08-31] MEDS: DOCUSATE SODIUM 100 MG CAPSULE (FP) PO SCH ×3 (06:29→21:15)
[2018-08-31] MEDS: INSULIN SLIDING SCALE (NOVOLOG) 1 VIAL SQ SCH ×4 (06:30→21:18)
[2018-08-31] MEDS ORDERED: cefTRIAXone SODIUM 1 GM VIAL ONE (08:46)
[2018-08-31] MEDS ORDERED: DEXTROSE 5%-WATER - 50 ML IVPB ONE (08:46)
[2018-08-31] MEDS: HEPARIN NA (PORCINE) 5,000 UNITS/ML 1ML VIAL SQ SCH ×2 (09:46→21:15)
[2018-08-31] MEDS: POTASSIUM CHLORIDE TABS 10 MEQ TABLET.ER (FP) PO SCH ×2 (09:46→21:15)
[2018-08-31] MEDS: TAMSULOSIN HCL 0.4 MG CAP PO SCH (09:47)
[2018-08-31] MEDS: CEFTRIAXONE 1 GM in DEXTROSE 5%-WATER - 50 ML IVPB SCH (09:47)
[2018-08-31] MEDS: NIFEdipine E.R. 30 MG TABLET (FP) PO SCH (09:47)
[2018-08-31] MEDS: FINASTERIDE 5 MG TABLET (FP) PO SCH (09:49)
[2018-08-31] MEDS: LINEZOLID 600 MG TABLET (RESTRICTED TO ID) PO SCH ×2 (09:49→21:15)
--- NOTE | 2018-08-31 10:21 | PN ---
Progress Note, Physician History of Present Illness: patient doing well no issues patient passing urine - Current Medication List Current Medications: Active Medications Acetaminophen (Tylenol -) 650 mg PO Q4H PRN PRN Reason: FEVER Last Admin: 08/30/18 07:40 Dose: 650 mg Docusate Sodium (Colace -) 100 mg PO TID [facility] Last Admin: 08/31/18 06:29 Dose: 100 mg Finasteride (Proscar -) 5 mg PO DAILY [facility] Last Admin: 08/31/18 09:49 Dose: 5 mg Heparin Sodium (Porcine) (Heparin -) 5,000 unit SQ BID [facility] Last Admin: 08/31/18 09:46 Dose: 5,000 unit Sodium Chloride (1/2 Normal Saline) 1,000 mls @ 75 mls/hr IV ASDIR [facility] Last Admin: 08/31/18 06:29 Dose: Not Given Ceftriaxone Sodium 1 gm/ (Dextrose) 50 mls @ 100 mls/hr IVPB DAILY [facility]; Protocol Last Admin: 08/31/18 09:47 Dose: 100 mls/hr Insulin Aspart (Novolog Vial Sliding Scale -) 1 vial SQ ACHS [facility]; Protocol Last Admin: 08/31/18 06:30 Dose: Not Given Linezolid (Zyvox (Restricted To Id) -) 600 mg PO BID [facility] Last Admin: 08/31/18 09:49 Dose: 600 mg Metoprolol Succinate (Toprol Xl -) 100 mg PO DAILY [facility] Last Admin: 08/31/18 09:47 Dose: 100 mg Nifedipine (Procardia Xl -) 30 mg PO DAILY [facility] Last Admin: 08/31/18 09:47 Dose: 30 mg Potassium Chloride (K-Dur -) 10 meq PO BID [facility] Last Admin: 08/31/18 09:46 Dose: 10 meq Tamsulosin HCl (Flomax -) 0.4 mg PO DAILY@0830 [facility] Last Admin: 08/31/18 09:47 Dose: 0.4 mg Zolpidem Tartrate (Ambien -) 5 mg PO HS PRN PRN Reason: INSOMNIA Last Admin: 08/30/18 22:05 Dose: 5 mg - Objective Vital Signs: Vital Signs Temperature 98.2 F 08/31/18 09:43 Pulse Rate 71 08/31/18 09:43 Respiratory Rate 20 08/31/18 09:43 Blood Pressure 132/91 08/31/18 09:43 O2 Sat by Pulse Oximetry (%) 97 08/30/18 20:38 Constitutional: Yes: No Distress, Calm HENT: Yes: Atraumatic Neck: Yes: Supple Cardiovascular: Yes: Regular Rate and Rhythm Respiratory: Yes: Regular, CTA Bilaterally Gastrointestinal: Yes: Normal Bowel Sounds, Soft Musculoskeletal: Yes: WNL Extremities: Yes: WNL Neurological: Yes: Alert, Oriented Psychiatric: Yes: Alert, Oriented Labs: CBC, BMP 08/30/18 06:00 08/30/18 06:00 INR, PTT INR 1.49 (0.83-1.09) H 08/24/18 22:45 Assessment/Plan Problem List - Problems (1) Sepsis Code(s): A41.9 - SEPSIS, UNSPECIFIED ORGANISM Qualifiers: Sepsis type: sepsis due to unspecified organism Qualified Code(s): A41.9 - Sepsis, unspecified organism (2) History of bladder cancer Code(s): Z85.51 - PERSONAL HISTORY OF MALIGNANT NEOPLASM OF BLADDER (3) Diabetes Code(s): E11.9 - TYPE 2 DIABETES MELLITUS WITHOUT COMPLICATIONS (4) Diarrhea Code(s): R19.7 - DIARRHEA, UNSPECIFIED (5) HLD (hyperlipidemia) Code(s): E78.5 - HYPERLIPIDEMIA, UNSPECIFIED (6) Hypertension Code(s): I10 - ESSENTIAL (PRIMARY) HYPERTENSION Qualifiers: Hypertension type: other secondary hypertension Qualified Code(s): I15.8 - Other secondary hypertension plan continue current mgmt will change to oral rest as per the team patient stable monitor urine output
[2018-08-31] MEDS ORDERED: INSULIN (NOVOLOG) ASPART 100 UNITS/ML 10ML VIAL ONE ×2 (10:56→19:56)
[2018-08-31] MEDS: ACETAMINOPHEN 325 MG TABLET (FP) PO PRN (12:52)
[2018-08-31] MEDS: AMOX TR/POT CLAV 875MG/125MG TABLETS (FP) PO SCH (16:32)
--- NOTE | 2018-08-31 19:07 | PN ---
Progress Note (short form) - Note Progress Note: Patient seen and examined Feels better Last Vital Signs Temp Pulse Resp BP Pulse Ox 97.7 F 74 20 128/83 96 08/31/18 13:56 08/31/18 13:56 08/31/18 13:56 08/31/18 13:56 08/31/18 09:00 Cor: RSR, No murmurs, No gallops Lungs: Clear to P&A Abd: Soft, Normal bowel sounds, No organomegaly Ext:No significant edema Labs/Meds reviewed A/P 78 y/o with metastatic bladder cancer, recurrent UTIs, obstructive uropathy Readmitted with recurrent UTI. onmeropenem. rahman removed CT scans --liver/bone mets. T12/L1 ? fx. asym[ptomatic PDL1--0% consider immunotherapy if performance status improves w
--- NOTE | 2018-08-31 21:03 | PN ---
Progress Note, Physician - Current Medication List Current Medications: Active Medications Acetaminophen (Tylenol -) 650 mg PO Q4H PRN PRN Reason: FEVER Last Admin: 08/31/18 12:52 Dose: 650 mg Amoxicillin/Clavulanate Potassium (Augmentin - 875mg Tablet) 1 tab PO BID@0800, 1730 [facility] Last Admin: 08/31/18 16:32 Dose: 1 tab Docusate Sodium (Colace -) 100 mg PO TID [facility] Last Admin: 08/31/18 13:40 Dose: 100 mg Finasteride (Proscar -) 5 mg PO DAILY [facility] Last Admin: 08/31/18 09:49 Dose: 5 mg Heparin Sodium (Porcine) (Heparin -) 5,000 unit SQ BID [facility] Last Admin: 08/31/18 09:46 Dose: 5,000 unit Sodium Chloride (1/2 Normal Saline) 1,000 mls @ 75 mls/hr IV ASDIR [facility] Last Admin: 08/31/18 13:43 Dose: 75 mls/hr Insulin Aspart (Novolog Vial Sliding Scale -) 1 vial SQ ACHS [facility]; Protocol Last Admin: 08/31/18 16:25 Dose: 2 units Linezolid (Zyvox (Restricted To Id) -) 600 mg PO BID [facility] Last Admin: 08/31/18 09:49 Dose: 600 mg Metoprolol Succinate (Toprol Xl -) 100 mg PO DAILY [facility] Last Admin: 08/31/18 09:47 Dose: 100 mg Nifedipine (Procardia Xl -) 30 mg PO DAILY [facility] Last Admin: 08/31/18 09:47 Dose: 30 mg Potassium Chloride (K-Dur -) 10 meq PO BID [facility] Last Admin: 08/31/18 09:46 Dose: 10 meq Tamsulosin HCl (Flomax -) 0.4 mg PO DAILY@0830 [facility] Last Admin: 08/31/18 09:47 Dose: 0.4 mg Zolpidem Tartrate (Ambien -) 5 mg PO HS PRN PRN Reason: INSOMNIA - Objective Vital Signs: Vital Signs Temperature 97.4 F L 08/31/18 20:35 Pulse Rate 65 08/31/18 20:35 Respiratory Rate 20 08/31/18 20:35 Blood Pressure 142/85 08/31/18 20:35 O2 Sat by Pulse Oximetry (%) 96 08/31/18 09:00 Labs: CBC, BMP 08/30/18 06:00 08/30/18 06:00 INR, PTT INR 1.49 (0.83-1.09) H 08/24/18 22:45 Problem List - Problems (1) Sepsis Code(s): A41.9 - SEPSIS, UNSPECIFIED ORGANISM Qualifiers: Sepsis type: sepsis due to unspecified organism Qualified Code(s): A41.9 - Sepsis, unspecified organism (2) History of bladder cancer Code(s): Z85.51 - PERSONAL HISTORY OF MALIGNANT NEOPLASM OF BLADDER (3) Diabetes Code(s): E11.9 - TYPE 2 DIABETES MELLITUS WITHOUT COMPLICATIONS (4) Diarrhea Code(s): R19.7 - DIARRHEA, UNSPECIFIED (5) HLD (hyperlipidemia) Code(s): E78.5 - HYPERLIPIDEMIA, UNSPECIFIED (6) Hypertension Code(s): I10 - ESSENTIAL (PRIMARY) HYPERTENSION Qualifiers: Hypertension type: other secondary hypertension Qualified Code(s): I15.8 - Other secondary hypertension
[2018-08-31] MEDS: ZOLPIDEM TARTRATE 5 MG TABLET PO PRN (23:13)
[2018-09-01] MEDS: SODIUM CHLORIDE 0.45% 1,000 ML IV SCH (06:14)
[2018-09-01] MEDS: INSULIN SLIDING SCALE (NOVOLOG) 1 VIAL SQ SCH ×4 (06:15→21:49)
[2018-09-01] MEDS: DOCUSATE SODIUM 100 MG CAPSULE (FP) PO SCH ×3 (06:15→21:45)
[2018-09-01] MEDS: AMOX TR/POT CLAV 875MG/125MG TABLETS (FP) PO SCH ×2 (08:03→17:31)
[2018-09-01] MEDS: TAMSULOSIN HCL 0.4 MG CAP PO SCH (08:03)
[2018-09-01] MEDS ORDERED: PT OWN MED DRAWER 7, Y5N ONE (09:52)
[2018-09-01] MEDS: HEPARIN NA (PORCINE) 5,000 UNITS/ML 1ML VIAL SQ SCH (09:55)
[2018-09-01] MEDS: FINASTERIDE 5 MG TABLET (FP) PO SCH (09:56)
[2018-09-01] MEDS: LINEZOLID 600 MG TABLET (RESTRICTED TO ID) PO SCH ×2 (09:56→21:46)
[2018-09-01] MEDS: NIFEdipine E.R. 30 MG TABLET (FP) PO SCH (09:56)
[2018-09-01] MEDS: POTASSIUM CHLORIDE TABS 10 MEQ TABLET.ER (FP) PO SCH ×2 (09:56→21:45)
--- NOTE | 2018-09-01 10:18 | PN ---
Progress Note, Physician History of Present Illness: patient stable doing well no complaints - Current Medication List Current Medications: Active Medications Acetaminophen (Tylenol -) 650 mg PO Q4H PRN PRN Reason: FEVER Last Admin: 08/31/18 12:52 Dose: 650 mg Amoxicillin/Clavulanate Potassium (Augmentin - 875mg Tablet) 1 tab PO BID@0800, 1730 [facility] Last Admin: 09/01/18 08:03 Dose: 1 tab Docusate Sodium (Colace -) 100 mg PO TID [facility] Last Admin: 09/01/18 06:15 Dose: Not Given Finasteride (Proscar -) 5 mg PO DAILY [facility] Last Admin: 09/01/18 09:56 Dose: 5 mg Heparin Sodium (Porcine) (Heparin -) 5,000 unit SQ BID [facility] Last Admin: 09/01/18 09:55 Dose: 5,000 unit Sodium Chloride (1/2 Normal Saline) 1,000 mls @ 75 mls/hr IV ASDIR [facility] Last Admin: 09/01/18 06:14 Dose: 75 mls/hr Insulin Aspart (Novolog Vial Sliding Scale -) 1 vial SQ ACHS [facility]; Protocol Last Admin: 09/01/18 06:15 Dose: Not Given Linezolid (Zyvox (Restricted To Id) -) 600 mg PO BID [facility] Last Admin: 09/01/18 09:56 Dose: 600 mg Metoprolol Succinate (Toprol Xl -) 100 mg PO DAILY [facility] Last Admin: 09/01/18 09:56 Dose: 100 mg Nifedipine (Procardia Xl -) 30 mg PO DAILY [facility] Last Admin: 09/01/18 09:56 Dose: 30 mg Potassium Chloride (K-Dur -) 10 meq PO BID [facility] Last Admin: 09/01/18 09:56 Dose: 10 meq Tamsulosin HCl (Flomax -) 0.4 mg PO DAILY@0830 [facility] Last Admin: 09/01/18 08:03 Dose: 0.4 mg Zolpidem Tartrate (Ambien -) 5 mg PO HS PRN PRN Reason: INSOMNIA Last Admin: 08/31/18 23:13 Dose: 5 mg - Objective Vital Signs: Vital Signs Temperature 98.4 F 09/01/18 09:59 Pulse Rate 87 09/01/18 09:59 Respiratory Rate 20 09/01/18 09:59 Blood Pressure 113/79 09/01/18 09:59 O2 Sat by Pulse Oximetry (%) 97 08/31/18 21:00 Constitutional: Yes: No Distress, Calm Cardiovascular: Yes: Regular Rate and Rhythm Respiratory: Yes: Regular, CTA Bilaterally Gastrointestinal: Yes: Normal Bowel Sounds, Soft Musculoskeletal: Yes: WNL Extremities: Yes: WNL Neurological: Yes: Alert, Oriented Psychiatric: Yes: Alert, Oriented Labs: CBC, BMP 08/30/18 06:00 08/30/18 06:00 INR, PTT INR 1.49 (0.83-1.09) H 08/24/18 22:45 Assessment/Plan Problem List - Problems (1) Sepsis Code(s): A41.9 - SEPSIS, UNSPECIFIED ORGANISM Qualifiers: Sepsis type: sepsis due to unspecified organism Qualified Code(s): A41.9 - Sepsis, unspecified organism (2) History of bladder cancer Code(s): Z85.51 - PERSONAL HISTORY OF MALIGNANT NEOPLASM OF BLADDER (3) Diabetes Code(s): E11.9 - TYPE 2 DIABETES MELLITUS WITHOUT COMPLICATIONS (4) Diarrhea Code(s): R19.7 - DIARRHEA, UNSPECIFIED (5) HLD (hyperlipidemia) Code(s): E78.5 - HYPERLIPIDEMIA, UNSPECIFIED (6) Hypertension Code(s): I10 - ESSENTIAL (PRIMARY) HYPERTENSION Qualifiers: Hypertension type: other secondary hypertension Qualified Code(s): I15.8 - Other secondary hypertension plan continue current mgmt zyox to continue for 9 more days augmentin for 7 more days physio rest as per the team
[2018-09-01 11:53] VITALS: BMI 21.7
--- NOTE | 2018-09-01 12:46 | PN ---
Progress Note (short form) - Note Progress Note: Patient seen and examined at bedside Denies any symptoms Wants to go home with home PT and VNS States he is committed to getting better to improve his performance status so he could be treated Vital Signs Temperature 98.4 F 09/01/18 09:59 Pulse Rate 87 09/01/18 09:59 Respiratory Rate 20 09/01/18 09:59 Blood Pressure 113/79 09/01/18 09:59 O2 Sat by Pulse Oximetry (%) 97 09/01/18 09:00 PE: NAD lying in bed RRR S1 S2 CTAB Soft non tender non distended normactive bowel sounds Galarza in place 08/24/18 09:40 Blood Culture - Final Blood - Carmela Cath NO GROWTH AFTER 5 DAYS INCUBATION 08/24/18 22:45 Blood Culture - Final Blood - Peripheral Venous NO GROWTH AFTER 5 DAYS INCUBATION 08/26/18 09:41 Salmonella/Shigella Culture - Final Stool NO GROWTH OF SALMONELLA OR SHIGELLA SPECIES OBTAINED Campylobacter Culture - Final NO GROWTH OF CAMPYLOBACTER SPECIES OBTAINED Yersinia Culture - Final NO GROWTH OF YERSINIA SPECIES OBTAINED Vibrio Culture - Final NO GROWTH OF VIBRIO SPECIES OBTAINED Escherichia coli 0157 Culture - Final NO GROWTH OF E COLI 0157 OBTAINED 08/25/18 00:05 Urine Culture - Final Urine - Urine Clean Catch Klebsiella Pneumoniae Vr Ec Faecium 08/24/18 22:45 Blood Culture - Final Blood - Peripheral Venous Staphylococcus Epidermidis 08/26/18 09:45 Clostridium difficile Antigen (OK) - Final Stool Clostridium difficile Toxin Assay - Final 08/25/18 00:05 Influenza Types A,B Antigen - Final Nasopharyngeal Swab - Final 78M with history of metastatic bladder Ca presents to the hospital from care home for fever and diarrhea. Problem List: Metastatic bladder Ca Sepsis secondary to UTI HTN BPH DM Plan: ABx per ID On Zyvox continue trending CBC and transfuse for Hb <7.0 Possible candidate for immunotherapy if performance status improves will follow
--- NOTE | 2018-09-01 19:03 | PN ---
Progress Note (short form) - Note Progress Note: Patient seen and examined Feels better Last Vital Signs Temp Pulse Resp BP Pulse Ox 97.6 F 66 20 117/65 97 09/01/18 15:31 09/01/18 15:31 09/01/18 15:31 09/01/18 15:31 09/01/18 09:00 Cor: RSR, No murmurs, No gallops Lungs: Clear to P&A Abd: Soft, Normal bowel sounds, No organomegaly Ext:No significant edema Labs/Meds reviewed A/P 78 y/o with metastatic bladder cancer, recurrent UTIs, obstructive uropathy Readmitted with recurrent UTI. onmeropenem. rahman removed CT scans --liver/bone mets. T12/L1 ? fx. asym[ptomatic PDL1--0% consider immunotherapy on 09/11 will start zometa -- discussed with patient and his . 1dose today gentle hydration
[2018-09-01] MEDS ORDERED: SODIUM CHLORIDE 1,000 ML IV SCH (19:15)
--- NOTE | 2018-09-01 19:49 | PN ---
Progress Note, Physician - Current Medication List Current Medications: Active Medications Acetaminophen (Tylenol -) 650 mg PO ONCE ONE Stop: 09/01/18 19:12 Acetaminophen (Tylenol -) 650 mg PO ONCE ONE Stop: 09/01/18 19:16 Amoxicillin/Clavulanate Potassium (Augmentin - 875mg Tablet) 1 tab PO BID@0800, 1730 [facility] Last Admin: 09/01/18 17:31 Dose: 1 tab Docusate Sodium (Colace -) 100 mg PO TID [facility] Last Admin: 09/01/18 13:29 Dose: Not Given Finasteride (Proscar -) 5 mg PO DAILY [facility] Last Admin: 09/01/18 09:56 Dose: 5 mg Heparin Sodium (Porcine) (Heparin -) 5,000 unit SQ BID [facility] Last Admin: 09/01/18 09:55 Dose: 5,000 unit Sodium Chloride (Normal Saline -) 1,000 mls @ 42 mls/hr IV ASDIR [facility] Zoledronic Acid 4 mg/ Sodium (Chloride) 105 mls @ 100 mls/hr IVPB ONCE ONE Stop: 09/01/18 20:12 Insulin Aspart (Novolog Vial Sliding Scale -) 1 vial SQ ACHS [facility]; Protocol Last Admin: 09/01/18 16:37 Dose: Not Given Linezolid (Zyvox (Restricted To Id) -) 600 mg PO BID [facility] Last Admin: 09/01/18 09:56 Dose: 600 mg Metoprolol Succinate (Toprol Xl -) 100 mg PO DAILY [facility] Last Admin: 09/01/18 09:56 Dose: 100 mg Nifedipine (Procardia Xl -) 30 mg PO DAILY [facility] Last Admin: 09/01/18 09:56 Dose: 30 mg Potassium Chloride (K-Dur -) 10 meq PO BID [facility] Last Admin: 09/01/18 09:56 Dose: 10 meq Tamsulosin HCl (Flomax -) 0.4 mg PO DAILY@0830 [facility] Last Admin: 09/01/18 08:03 Dose: 0.4 mg Zolpidem Tartrate (Ambien -) 5 mg PO HS PRN PRN Reason: INSOMNIA Last Admin: 08/31/18 23:13 Dose: 5 mg - Objective Vital Signs: Vital Signs Temperature 97.9 F 09/01/18 19:24 Pulse Rate 73 09/01/18 19:24 Respiratory Rate 20 09/01/18 19:24 Blood Pressure 143/88 09/01/18 19:24 O2 Sat by Pulse Oximetry (%) 97 09/01/18 09:00 Labs: CBC, BMP 08/30/18 06:00 08/30/18 06:00 INR, PTT INR 1.49 (0.83-1.09) H 08/24/18 22:45 Problem List - Problems (1) Sepsis Code(s): A41.9 - SEPSIS, UNSPECIFIED ORGANISM Qualifiers: Sepsis type: sepsis due to unspecified organism Qualified Code(s): A41.9 - Sepsis, unspecified organism (2) History of bladder cancer Code(s): Z85.51 - PERSONAL HISTORY OF MALIGNANT NEOPLASM OF BLADDER (3) Diabetes Code(s): E11.9 - TYPE 2 DIABETES MELLITUS WITHOUT COMPLICATIONS (4) Diarrhea Code(s): R19.7 - DIARRHEA, UNSPECIFIED (5) HLD (hyperlipidemia) Code(s): E78.5 - HYPERLIPIDEMIA, UNSPECIFIED (6) Hypertension Code(s): I10 - ESSENTIAL (PRIMARY) HYPERTENSION Qualifiers: Hypertension type: other secondary hypertension Qualified Code(s): I15.8 - Other secondary hypertension
[2018-09-01 21:05] LABS: WHITE BLOOD COUNT 6.2 K/mm3 (4.0-10.0)
[2018-09-01 21:06] LABS: BASO % 0.6 % (0-2.0); EOS % 0.6 % (0-4.5); HEMATOCRIT 25.8 % (35.4-49); HEMOGLOBIN 8.4 GM/dL (11.7-16.9); LYMPH % 14.9 % (8-40); MCH 22.8 pg (25.7-33.7); MCHC 32.5 g/dl (32.0-35.9); MEAN CELL VOLUME 70.1 fl (80-96); MONO % 6.7 % (3.8-10.2); NEUT % 77.2 % (42.8-82.8); PLATELET COUNT 305 K/MM3 (134-434); RBC 3.68 M/mm3 (4.00-5.60); RDW 27.9 % (11.9-15.9)
[2018-09-01] MEDS: ZOLPIDEM TARTRATE 5 MG TABLET PO PRN (21:45)
[2018-09-01 21:54] LABS: ANION GAP 13 MMOL/L (8-16); BILIRUBIN,TOTAL 1.4 mg/dL (0.2-1); BLOOD UREA NITROGEN 12 mg/dL (7-18); CALCIUM 7.8 mg/dL (8.5-10.1); CHLORIDE 99 mmol/L (98-107); CO2 20 mmol/L (21-32); CREATININE 0.6 mg/dL (0.55-1.3); GLUCOSE,RANDOM 137 mg/dL (74-106); POTASSIUM 4.3 mmol/L (3.5-5.1); SGOT/AST 33 U/L (15-37); SGPT/ALT 25 U/L (13-61); SODIUM 132 mmol/L (136-145); TOT PROT 6.2 g/dl (6.4-8.2)
[2018-09-01 21:55] LABS: ALK PHOS 1091 U/L (45-117)
[2018-09-01] MEDS ORDERED: ZOLEDRONIC ACID 4 MG in SODIUM CHLORIDE 100 ML IVPB ONE (23:45)
[2018-09-01] MEDS ORDERED: ACETAMINOPHEN 325 MG TABLET (FP) PO ONE (23:45)
[2018-09-02] MEDS ORDERED: ACETAMINOPHEN 325 MG TABLET (FP) PO ONE (01:00)
[2018-09-02] MEDS: DOCUSATE SODIUM 100 MG CAPSULE (FP) PO SCH (06:58)
[2018-09-02] MEDS: INSULIN SLIDING SCALE (NOVOLOG) 1 VIAL SQ SCH ×2 (06:58→10:57)
[2018-09-02 07:34] LABS: BASO % 0.8 % (0-2.0); EOS % 0.6 % (0-4.5); HEMATOCRIT 24.9 % (35.4-49); HEMOGLOBIN 7.8 GM/dL (11.7-16.9); LYMPH % 15.7 % (8-40); MCHC 31.3 g/dl (32.0-35.9); MEAN CELL VOLUME 70.5 fl (80-96); MEAN PLT VOLUME 8.8 fl (7.5-11.1); NEUT % 75.9 % (42.8-82.8); PLATELET COUNT 246 K/MM3 (134-434); RBC 3.53 M/mm3 (4.00-5.60); RDW 28.6 % (11.9-15.9)
[2018-09-02] MEDS: AMOX TR/POT CLAV 875MG/125MG TABLETS (FP) PO SCH (08:20)
[2018-09-02 08:35] LABS: ALK PHOS 1227 U/L (45-117); ANION GAP 11 MMOL/L (8-16); BILIRUBIN,TOTAL 1.6 mg/dL (0.2-1); BLOOD UREA NITROGEN 11 mg/dL (7-18); CALCIUM 7.9 mg/dL (8.5-10.1); CHLORIDE 101 mmol/L (98-107); CO2 21 mmol/L (21-32); CREATININE 0.5 mg/dL (0.55-1.3); GLUCOSE,RANDOM 124 mg/dL (74-106); POTASSIUM 4.3 mmol/L (3.5-5.1); SGOT/AST 41 U/L (15-37); SGPT/ALT 28 U/L (13-61); SODIUM 133 mmol/L (136-145); TOT PROT 6.1 g/dl (6.4-8.2)
[2018-09-02] MEDS: FINASTERIDE 5 MG TABLET (FP) PO SCH (09:28)
[2018-09-02] MEDS: POTASSIUM CHLORIDE TABS 10 MEQ TABLET.ER (FP) PO SCH (09:28)
[2018-09-02] MEDS: NIFEdipine E.R. 30 MG TABLET (FP) PO SCH (09:29)
[2018-09-02] MEDS: TAMSULOSIN HCL 0.4 MG CAP PO SCH (09:29)
[2018-09-02] MEDS: LINEZOLID 600 MG TABLET (RESTRICTED TO ID) PO SCH (09:30)
--- NOTE | 2018-09-02 13:37 | PN ---
Progress Note, Physician History of Present Illness: stable doing well no complaints - Current Medication List Current Medications: Active Medications Amoxicillin/Clavulanate Potassium (Augmentin - 875mg Tablet) 1 tab PO BID@0800, 1730 [facility] Last Admin: 09/02/18 08:20 Dose: 1 tab Docusate Sodium (Colace -) 100 mg PO TID [facility] Last Admin: 09/02/18 06:58 Dose: 100 mg Finasteride (Proscar -) 5 mg PO DAILY [facility] Last Admin: 09/02/18 09:28 Dose: 5 mg Sodium Chloride (Normal Saline -) 1,000 mls @ 42 mls/hr IV ASDIR [facility] Last Admin: 09/02/18 00:47 Dose: 42 mls/hr Insulin Aspart (Novolog Vial Sliding Scale -) 1 vial SQ ACHS [facility]; Protocol Last Admin: 09/02/18 10:57 Dose: 2 units Linezolid (Zyvox (Restricted To Id) -) 600 mg PO BID [facility] Last Admin: 09/02/18 09:30 Dose: 600 mg Metoprolol Succinate (Toprol Xl -) 100 mg PO DAILY [facility] Last Admin: 09/02/18 09:28 Dose: 100 mg Nifedipine (Procardia Xl -) 30 mg PO DAILY [facility] Last Admin: 09/02/18 09:29 Dose: 30 mg Potassium Chloride (K-Dur -) 10 meq PO BID [facility] Last Admin: 09/02/18 09:28 Dose: 10 meq Tamsulosin HCl (Flomax -) 0.4 mg PO DAILY@0830 [facility] Last Admin: 09/02/18 09:29 Dose: 0.4 mg Zolpidem Tartrate (Ambien -) 5 mg PO HS PRN PRN Reason: INSOMNIA Last Admin: 09/01/18 21:45 Dose: 5 mg - Objective Vital Signs: Vital Signs Temperature 97.7 F 09/02/18 05:58 Pulse Rate 72 09/02/18 05:58 Respiratory Rate 20 09/02/18 05:58 Blood Pressure 136/93 09/02/18 05:58 O2 Sat by Pulse Oximetry (%) 97 09/01/18 20:30 Constitutional: Yes: No Distress, Calm Cardiovascular: Yes: Regular Rate and Rhythm Respiratory: Yes: Regular, CTA Bilaterally Gastrointestinal: Yes: Normal Bowel Sounds, Soft Musculoskeletal: Yes: WNL Extremities: Yes: WNL Neurological: Yes: Alert, Oriented Psychiatric: Yes: Alert, Oriented Labs: CBC, BMP 09/02/18 06:00 09/02/18 06:00 INR, PTT INR 1.49 (0.83-1.09) H 08/24/18 22:45 Assessment/Plan Problem List - Problems (1) Sepsis Code(s): A41.9 - SEPSIS, UNSPECIFIED ORGANISM Qualifiers: Sepsis type: sepsis due to unspecified organism Qualified Code(s): A41.9 - Sepsis, unspecified organism (2) History of bladder cancer Code(s): Z85.51 - PERSONAL HISTORY OF MALIGNANT NEOPLASM OF BLADDER (3) Diabetes Code(s): E11.9 - TYPE 2 DIABETES MELLITUS WITHOUT COMPLICATIONS (4) Diarrhea Code(s): R19.7 - DIARRHEA, UNSPECIFIED (5) HLD (hyperlipidemia) Code(s): E78.5 - HYPERLIPIDEMIA, UNSPECIFIED (6) Hypertension Code(s): I10 - ESSENTIAL (PRIMARY) HYPERTENSION Qualifiers: Hypertension type: other secondary hypertension Qualified Code(s): I15.8 - Other secondary hypertension plan continue current mgmt zyox to continue for 8 more days augmentin for 6 more days physio rest as per the team
[2018-09-02 15:28] VITALS: BP 130/82; PULSE 79; TEMP 97.6
== END 2018-09-02 15:34 | disposition home health service (06) | DRG 698 ==
LOC: JER 21:02 → JERBED 08-25 01:36 → J7W 08-25 14:45
PROVIDERS: ADMIT Internal Medicine; ATTEND Internal Medicine
PROC: 30233N1 Transfusion of Nonautologous Red Blood Cells into Peripheral Vein, Percutaneous Approach (ICD-10-PCS; principal; 2018-08-27)
DX: T83.518A Infection and inflammatory reaction due to other urinary catheter, initial encounter (principal); A41.9 Sepsis, unspecified organism; N39.0 Urinary tract infection, site not specified; C78.7 Secondary malignant neoplasm of liver and intrahepatic bile duct; C79.51 Secondary malignant neoplasm of bone; Y84.6 Urinary catheterization as the cause of abnormal reaction of the patient, or of later complication, without mention of misadventure at the time of the procedure; I10 Essential (primary) hypertension; N40.0 Benign prostatic hyperplasia without lower urinary tract symptoms; C67.9 Malignant neoplasm of bladder, unspecified; I71.2 Thoracic aortic aneurysm, without rupture; K74.60 Unspecified cirrhosis of liver; Z79.4 Long term (current) use of insulin; D64.81 Anemia due to antineoplastic chemotherapy; T45.1X5A Adverse effect of antineoplastic and immunosuppressive drugs, initial encounter; E11.9 Type 2 diabetes mellitus without complications; R19.7 Diarrhea, unspecified; E78.5 Hyperlipidemia, unspecified; N13.9 Obstructive and reflux uropathy, unspecified
CPT/HCPCS: 36415; 36430; 71045-TC-FY; 71260-TC; 74177-TC; 76775-TC; 78306-TC; 80053; 81003; 81015; 82550; 82803; 82962; 83605; 83735; 84100; 84484; 85025; 85610; 85730; 86850; 86900; 86901; 86922; 87040; 87045; 87046; 87086; 87177; 87186; 87209; 87324; 87449; 87804; 93005; 93010; 97116-GP; 97161-GP; 99285-25; A9503; J1644; J3489; J7030; P9038; P9058

== ENCOUNTER 2018-09-04 14:50 | Inpatient (IN) | payer OTHER ==
--- NOTE | 2018-09-04 15:39 | PDOC ---
History of Present Illness <Charisma Bean - Last Filed: 09/04/18 19:11> - History of Present Illness Initial Comments: The patient is a 78M w/ a history of HTN, bladder ca w/ mets (not on CTX), and recurrent UTI who presents for evaluation for increased generalized weakness ( more in BLE) possibly 2/2 urosepsis per his Oncologist. Patient reports that he was able to ambulate with assistance while at rehab but has not been able to since returning home 2/2 fear of falling. The patient denies fevers/chills, chest pain, SOB, abdominal pain, dysuria, or hematuria. The patient is on day 3 of Augmentin and Linezolid. Patient sent for admission by Oncologist. 09/04/18 16:01 <Michael Cruz - Last Filed: 09/04/18 22:44> - General Chief Complaint: Weakness Stated Complaint: WEAKNESS Past History <Charisma Bean - Last Filed: 09/04/18 19:11> - Past Medical History Anemia: Yes Asthma: No Cancer: Yes (BLADDER W/ mets to liver and bone) Cardiac Disorders: No CVA: No COPD: No CHF: No Dementia: No Diabetes: Yes GI Disorders: No Disorders: Yes (BPH, HAM CATH IN PLACE) HTN: Yes Hypercholesterolemia: No Liver Disease: No Seizures: No Thyroid Disease: No - Surgical History Abdominal Surgery: No Appendectomy: No Cardiac Surgery: No - Immunization History Immunization Up to Date: Yes - Suicide/Smoking/Psychosocial Hx Smoking Status: Yes Smoking History: Never smoked Have you smoked in the past 12 months: No Number of Cigarettes Smoked Daily: 0 If you are a former smoker, when did you quit?: 1989 Information on smoking cessation initiated: No Hx Alcohol Use: No Drug/Substance Use Hx: No Substance Use Type: None Hx Substance Use Treatment: No <Michael Cruz - Last Filed: 09/04/18 22:44> - Past Medical History Allergies/Adverse Reactions: Allergies Allergy/AdvReac Type Severity Reaction Status Date / Time No Known Allergies Allergy Verified 09/04/18 21:02 Home Medications: Ambulatory Orders Finasteride [Proscar -] 5 mg PO DAILY 06/25/18 Metformin HCl [Glucophage] 1,000 mg PO BID 06/25/18 Metoprolol Succinate [Toprol XL -] 100 mg PO DAILY 06/25/18 Multivit-Min/FA/Lycopen/Lutein [Centrum Silver Men Tablet] 1 each PO DAILY 06/25 Nifedipine [Procardia Xl] 30 mg PO DAILY 06/25/18 Silodosin [Rapaflo] 8 mg PO DAILY 06/25/18 Zolpidem Tartrate [Ambien] 5 mg PO HS 06/25/18 Docusate Sodium [Colace -] 100 mg PO TID capsule 08/01/18 Insulin Sliding Scale [Novolog Vial Sliding Scale -] 1 vial SQ ACHS units 08/16 Potassium Chloride [K-Dur -] 10 meq PO BID #60 tablet.er 08/16/18 Amox-Tr/K Cl [Augmentin 875-125mg Tablet -] 1 tab PO BID@0800,1730 #14 tablet Linezolid [Zyvox (Restricted To Id) -] 600 mg PO BID #18 tablet 09/01/18 Review of Systems - Review of Systems Able to Perform ROS?: Yes Comments:: GENERAL/CONSTITUTIONAL: No fever or chills HEAD, EYES, EARS, NOSE AND THROAT: No change in vision. No ear pain or discharge. No sore throat CARDIOVASCULAR: No chest pain or shortness of breath RESPIRATORY: No cough, wheezing, or hemoptysis GASTROINTESTINAL: No nausea, vomiting, diarrhea or constipation GENITOURINARY: No dysuria, frequency, or change in urination MUSCULOSKELETAL: No joint or muscle swelling or pain. No neck or back pain SKIN: No rash NEUROLOGIC: No headache, vertigo, loss of consciousness ENDOCRINE: No increased thirst. No abnormal weight change HEMATOLOGIC/LYMPHATIC: No easy bleeding, or history of blood clots 09/04/18 15:38 Is the patient limited [place]er proficient: No <Michael Cruz - Last Filed: 09/04/18 22:44> *Physical Exam - Vital Signs Last Vital Signs Temp Pulse Resp BP Pulse Ox 98.0 F 98 H 16 120/84 100 09/04/18 14:56 09/04/18 14:56 09/04/18 14:56 09/04/18 14:56 09/04/18 14:56 <Charisma Bean - Last Filed: 09/04/18 19:11> - Vital Signs Last Vital Signs Temp Pulse Resp BP Pulse Ox 98.0 F 98 H 16 120/84 100 09/04/18 14:56 09/04/18 14:56 09/04/18 14:56 09/04/18 14:56 09/04/18 14:56 - Physical Exam Comments: GENERAL: Awake, alert, and fully oriented, in no acute distress HEAD: No signs of trauma, normocephalic, atraumatic EYES: PERRLA, EOMI, sclera anicteric, conjunctiva clear ENT: Hearing grossly normal, nares patent, oropharynx clear without exudates. Moist mucosa LUNGS: No distress, speaks full sentences, clear to auscultation bilaterally HEART: Regular rate and rhythm, normal S1 and S2, no murmurs appreciated, peripheral pulses normal and equal bilaterally ABDOMEN: Soft, nontender, normoactive bowel sounds. No guarding, no rebound EXTREMITIES : Normal inspection, Normal range of motion, no edema. No clubbing or cyanosis NEUROLOGICAL: Cranial nerves II through XII grossly intact. Normal speech, normal gait, no focal sensorimotor deficits SKIN: Warm, Dry, normal turgor 09/04/18 15:39 <Michael Cruz - Last Filed: 09/04/18 22:44> ED Treatment Course - LABORATORY CBC & Chemistry Diagram: 09/04/18 16:37 09/04/18 16:37 - ADDITIONAL ORDERS Additional order review: Laboratory Results 09/04/18 16:37 Sodium 132 L Potassium 4.5 Chloride 98 Carbon Dioxide 19 L Anion Gap 15 BUN 13 Creatinine 0.7 Creat Clearance w eGFR > 60 Random Glucose 159 H Calcium 7.3 L Total Bilirubin 1.1 H AST 41 H ALT 30 Alkaline Phosphatase 1221 H Total Protein 6.8 Albumin 2.3 L 09/04/18 16:37 RBC 3.64 L MCV 69.5 L MCHC 33.5 RDW 28.2 H MPV 8.9 - Consult/PCP Time Called: 18:45 (Called Dr. Andrade's service, awaiting callback ) <Charisma Bean - Last Filed: 09/04/18 19:11> - LABORATORY CBC & Chemistry Diagram: 09/04/18 16:37 09/04/18 16:37 <Michael Cruz - Last Filed: 09/04/18 22:44> Medical Decision Making - Medical Decision Making The patient is a 78M w/ metastatic bladder cancer who presents for evaluation of increasing generalized weakness and decreased functionality at home. Concern for urosepsis by Oncology ED Course CMP, CBC ECG CXR UA, UCx Patient on Linezolid and Augmentin Plan for admission for evaluation of weakness and further evaluation by oncology 09/04/18 17:06 No KARTHIKEYAN UA pending Hgb 8.5, at baseline No leukocytosis Lipase 1200, at baseline 09/04/18 18:43 Onc: Dr. Pinky Mathis PCP: Dr. Ashlyn Andrade 09/04/18 18:47 Patient will likely need rehab Dispo: Admit <Michael Cruz - Last Filed: 09/04/18 22:44> *DC/Admit/Observation/Transfer <Charisma Bean - Last Filed: 09/04/18 19:11> - Discharge Dispostion Decision to Admit order: Yes <Michael Cruz - Last Filed: 09/04/18 22:44> Diagnosis at time of Disposition: Weakness generalized, 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 Bladder cancer Qualifiers: Bladder location: unspecified site Qualified Code(s): C67.9 - Malignant neoplasm of bladder, unspecified - Discharge Dispostion Condition at time of disposition: Fair
--- NOTE | 2018-09-04 16:39 | PDOC ---
Attending Attestation - HPI HPI: This patient is a 78 year old male with PMHx of HTN, bladder cancer w/ mets ( not on chemo), and recurring UTIs who presents for evaluation for bilateral lower extremity weakness and possibly 2/2 urosepsis per his Oncologist. He denies any fevers, chills, chest pain, SOB, abdominal pain, dysuria, or hematuria. The patient is on day 3 of Augmentin and Linezolid. - Physicial Exam PE: GENERAL: Well-appearing, well-nourished. No apparent distress. HEENT: Normocephalic, atraumatic. PERRL, EOM intact. CARDIOVASCULAR: Normal S1, S2. Regular rate and rhythm. PULMONARY: Clear to auscultation bilaterally. ABDOMEN: Soft, flat, non-distended, non-tender. EXTREMITIES: Normal ROM in all four extremities. No gross deformities. No pitting edema. SKIN: Warm, dry. No rash NEUROLOGICAL: No grossfocal neurological deficits. <Charisma Bean - Last Filed: 09/04/18 20:03> - Resident Resident Name: Michael Cruz - ED Attending Attestation I have performed the following: I have examined & evaluated the patient, The case was reviewed & discussed with the resident, I agree w/resident's findings & plan, Exceptions are as noted - Medical Decision Making 09/05/18 02:31 78 yo male w bladder cancer admitted to med/surg <Jeanette Vance - Last Filed: 09/05/18 02:32>
[2018-09-04 17:26] LABS: HEMATOCRIT 25.3 % (35.4-49); HEMOGLOBIN 8.5 GM/dL (11.7-16.9); MCH 23.3 pg (25.7-33.7); MCHC 33.5 g/dl (32.0-35.9); MEAN CELL VOLUME 69.5 fl (80-96); MEAN PLT VOLUME 8.9 fl (7.5-11.1); PLATELET COUNT 310 K/MM3 (134-434); RBC 3.64 M/mm3 (4.00-5.60); RDW 28.2 % (11.9-15.9); WHITE BLOOD COUNT 8.1 K/mm3 (4.0-10.0)
[2018-09-04 18:22] LABS: ALBUMIN 2.3 g/dl (3.4-5.0); ALK PHOS 1221 U/L (45-117); ANION GAP 15 MMOL/L (8-16); BILIRUBIN,TOTAL 1.1 mg/dL (0.2-1); BLOOD UREA NITROGEN 13 mg/dL (7-18); CALCIUM 7.3 mg/dL (8.5-10.1); CHLORIDE 98 mmol/L (98-107); CO2 19 mmol/L (21-32); CREATININE 0.7 mg/dL (0.55-1.3); GLUCOSE,RANDOM 159 mg/dL (74-106); POTASSIUM 4.5 mmol/L (3.5-5.1); SGOT/AST 41 U/L (15-37); SGPT/ALT 30 U/L (13-61); SODIUM 132 mmol/L (136-145); TOT PROT 6.8 g/dl (6.4-8.2)
[2018-09-04 23:23] VITALS: BMI 22.6
[2018-09-04] MEDS: LINEZOLID 600 MG TABLET (RESTRICTED TO ID) PO SCH (23:57)
[2018-09-04] MEDS: ZOLPIDEM TARTRATE 5 MG TABLET PO PRN (23:58)
[2018-09-04] MEDS: AMOX TR/POT CLAV 875MG/125MG TABLETS (FP) PO SCH (23:58)
[2018-09-04] MEDS: metFORMIN HCL 500 MG TABLET (FP) PO SCH (23:58)
[2018-09-05 02:00] LABS: URINE APPEARANCE CLEAR; URINE BILIRUBIN NEGATIVE (<2.0 mg/dL); URINE COLOR YELLOW; URINE GLUCOSE (UA) NEGATIVE (NEGATIVE); URINE KETONE NEGATIVE (NEGATIVE); URINE LEUK ESTERASE 2+ (NEGATIVE); URINE NITRITE NEGATIVE (NEGATIVE); URINE PROTEIN 2+ (NEGATIVE); URINE UROBILINOGEN NEGATIVE mg/dL (0.2-1.0)
[2018-09-05 02:10] LABS: URINE MUCUS RARE; YEAST FEW
[2018-09-05] MEDS: DOCUSATE SODIUM 100 MG CAPSULE (FP) PO SCH ×3 (06:44→22:01)
[2018-09-05] MEDS: metFORMIN HCL 500 MG TABLET (FP) PO SCH ×2 (06:44→16:05)
[2018-09-05 07:01] LABS: BASO % 0.7 % (0-2.0); EOS % 0.2 % (0-4.5); HEMATOCRIT 23.3 % (35.4-49); HEMOGLOBIN 7.4 GM/dL (11.7-16.9); LYMPH % 10.8 % (8-40); MCHC 31.5 g/dl (32.0-35.9); MEAN CELL VOLUME 69.9 fl (80-96); MEAN PLT VOLUME 8.2 fl (7.5-11.1); MONO % 5.4 % (3.8-10.2); NEUT % 82.9 % (42.8-82.8); PLATELET COUNT 231 K/MM3 (134-434); RBC 3.33 M/mm3 (4.00-5.60); RDW 28.5 % (11.9-15.9); WHITE BLOOD COUNT 7.5 K/mm3 (4.0-10.0)
[2018-09-05 08:11] LABS: ALBUMIN 2.2 g/dl (3.4-5.0); ALK PHOS 1102 U/L (45-117); ANION GAP 11 MMOL/L (8-16); BILIRUBIN,TOTAL 1.5 mg/dL (0.2-1); BLOOD UREA NITROGEN 11 mg/dL (7-18); CHLORIDE 101 mmol/L (98-107); CO2 21 mmol/L (21-32); CREATININE 0.5 mg/dL (0.55-1.3); GLUCOSE,RANDOM 148 mg/dL (74-106); POTASSIUM 4.1 mmol/L (3.5-5.1); SGOT/AST 36 U/L (15-37); SGPT/ALT 29 U/L (13-61); SODIUM 133 mmol/L (136-145); TOT PROT 6.2 g/dl (6.4-8.2)
[2018-09-05] MEDS: TAMSULOSIN HCL 0.4 MG CAP PO SCH (08:36)
[2018-09-05] MEDS: AMOX TR/POT CLAV 875MG/125MG TABLETS (FP) PO SCH ×2 (08:36→17:46)
[2018-09-05] MEDS: NIFEdipine E.R. 30 MG TABLET (FP) PO SCH (10:03)
[2018-09-05] MEDS: MULTIVITAMINS THER W-MINERALS COMBO TABLET (FP) PO SCH (10:03)
[2018-09-05] MEDS: POTASSIUM CHLORIDE TABS 10 MEQ TABLET.ER (FP) PO SCH ×2 (10:03→22:01)
[2018-09-05] MEDS: FINASTERIDE 5 MG TABLET (FP) PO SCH (10:04)
[2018-09-05] MEDS: LINEZOLID 600 MG TABLET (RESTRICTED TO ID) PO SCH ×2 (10:18→22:02)
--- NOTE | 2018-09-05 11:04 | HP ---
Admitting History and Physical - Admission History of Present Illness: Pt is a 78M w/ PMH significant for HTN, bladder ca w/ mets (to liver/bone), and recurrent UTI who presents for evaluation for increased generalized weakness. Pt has been on multiple rounds of antibxs for his UTI. Patient reports that he was able to ambulate with assistance while at rehab but has not been able to since returning home 2/2 fear of falling. Pt is on day #3 of augmentin and linezolid for UTI. - Past Medical History Cardiovascular: Yes: HTN, Hyperlipdemia Hepatobiliary: Yes: Cirrhosis (by imaging) Renal/: Yes: Renal Failure, BPH, Cancer, Hematuria Heme/Onc: Yes: Anemia (Thalassemia) Endocrine: Yes: Diabetes Mellitus - Past Surgical History Past Surgical History: Yes: Stent (urinary), TURP - Smoking History Smoking history: Never smoked Have you smoked in the past 12 months: No Aproximately how many cigarettes per day: 0 If you are a former smoker, when did you quit?: 1989 - Alcohol/Substance Use Hx Alcohol Use: No History of Substance Use: reports: None - Social History ADL: Independent History of Recent Travel: No Home Medications - Allergies Allergies/Adverse Reactions: Allergies Allergy/AdvReac Type Severity Reaction Status Date / Time No Known Allergies Allergy Verified 09/04/18 21:02 - Home Medications Home Medications: Ambulatory Orders Finasteride [Proscar -] 5 mg PO DAILY 06/25/18 Metformin HCl [Glucophage] 1,000 mg PO BID 06/25/18 Metoprolol Succinate [Toprol XL -] 100 mg PO DAILY 06/25/18 Multivit-Min/FA/Lycopen/Lutein [Centrum Silver Men Tablet] 1 each PO DAILY 06/25 Nifedipine [Procardia Xl] 30 mg PO DAILY 06/25/18 Silodosin [Rapaflo] 8 mg PO DAILY 06/25/18 Zolpidem Tartrate [Ambien] 5 mg PO HS 06/25/18 Docusate Sodium [Colace -] 100 mg PO TID capsule 08/01/18 Insulin Sliding Scale [Novolog Vial Sliding Scale -] 1 vial SQ ACHS units 08/16 Potassium Chloride [K-Dur -] 10 meq PO BID #60 tablet.er 08/16/18 Amox-Tr/K Cl [Augmentin 875-125mg Tablet -] 1 tab PO BID@0800,1730 #14 tablet Linezolid [Zyvox (Restricted To Id) -] 600 mg PO BID #18 tablet 09/01/18 Family Disease History - Family Disease History Family History: Unremarkable Family Disease History: Other: Father (: 45: "heart problem"), Mother ( : 80: COPD), Brother (1, 80's, unclear cause), Son (1, healthy), Daughter ( 1, healthy) Review of Systems - Review of Systems Constitutional: reports: Lethargy, Loss of Appetite, Weakness HENT: reports: No Symptoms Neck: reports: No Symptoms Cardiovascular: reports: No Symptoms Respiratory: reports: No Symptoms Gastrointestinal: reports: No Symptoms Genitourinary: reports: No Symptoms Physical Examination Vital Signs: Vital Signs Temperature 98.1 F 09/05/18 08:42 Pulse Rate 88 09/05/18 08:42 Respiratory Rate 17 09/05/18 08:42 Blood Pressure 134/83 09/05/18 08:42 O2 Sat by Pulse Oximetry (%) 98 09/05/18 07:28 Constitutional: Yes: No Distress, Pallor HENT: Yes: WNL Neck: Yes: WNL, Supple Cardiovascular: Yes: WNL, Regular Rate and Rhythm Respiratory: Yes: WNL, Regular, CTA Bilaterally Gastrointestinal: Yes: WNL, Normal Bowel Sounds, Soft Extremities: Yes: WNL Edema: No Neurological: Yes: WNL, Alert, Oriented ...Motor Strength: WNL Labs: CBC, BMP 09/05/18 06:30 09/05/18 06:30 Problem List - Problems (1) Symptomatic anemia Assessment/Plan: Monitor H/H Transfuse as needed Pt will need placement in STR for weakness Code(s): D64.9 - ANEMIA, UNSPECIFIED (2) Abnormal EKG Assessment/Plan: Will await cardio recommendations Transfer to tele Serial cpk/troponin Code(s): R94.31 - ABNORMAL ELECTROCARDIOGRAM [ECG] [EKG] (3) Bladder cancer Assessment/Plan: As per onco Mets to liver/bone Chemotx has been on hold due to recurrent UTI's Code(s): C67.9 - MALIGNANT NEOPLASM OF BLADDER, UNSPECIFIED Qualifiers: Bladder location: unspecified site Qualified Code(s): C67.9 - Malignant neoplasm of bladder, unspecified (4) UTI (urinary tract infection) Assessment/Plan: Cont linezolid/augment WBC is normal Pt is afebrile Code(s): N39.0 - URINARY TRACT INFECTION, SITE NOT SPECIFIED (5) Weakness generalized Assessment/Plan: Pt will need placement in STR PT eval Code(s): R53.1 - WEAKNESS (6) Acute on chronic renal failure Assessment/Plan: Monitor bun/creatinine Code(s): N17.9 - ACUTE KIDNEY FAILURE, UNSPECIFIED; N18.9 - CHRONIC KIDNEY DISEASE, UNSPECIFIED Qualifiers: Acute renal failure type: unspecified Chronic kidney disease stage: stage 3 (moderate) Qualified Code(s): N17.9 - Acute kidney failure, unspecified; N18.3 - Chronic kidney disease, stage 3 (moderate) (7) BPH (benign prostatic hyperplasia) Code(s): N40.0 - BENIGN PROSTATIC HYPERPLASIA WITHOUT LOWER URINRY TRACT SYMP Qualifiers: Lower urinary tract symptom detail: unspecified (8) Diabetes Assessment/Plan: Cont sliding scale w/ coverge Code(s): E11.9 - TYPE 2 DIABETES MELLITUS WITHOUT COMPLICATIONS Qualifiers: Diabetes mellitus type: type 2 Diabetes mellitus complication status: with kidney complications Chronic kidney disease stage: stage 2 (mild) (9) HLD (hyperlipidemia) Code(s): E78.5 - HYPERLIPIDEMIA, UNSPECIFIED (10) Hypertension Code(s): I10 - ESSENTIAL (PRIMARY) HYPERTENSION Qualifiers: Hypertension type: other secondary hypertension Qualified Code(s): I15.8 - Other secondary hypertension
--- NOTE | 2018-09-05 11:35 | EKG ---
Test Reason : Blood Pressure : / mmHG Vent. Rate : 093 BPM Atrial Rate : 093 BPM P-R Int : 234 ms QRS Dur : 094 ms QT Int : 358 ms P-R-T Axes : 055 -62 028 degrees QTc Int : 445 ms SINUS RHYTHM WITH SINUS ARRHYTHMIA WITH 1ST DEGREE A-V BLOCK LEFT AXIS DEVIATION INFERIOR INFARCT , AGE UNDETERMINED ABNORMAL ECG WHEN COMPARED WITH ECG OF 25-AUG-2018 02:37, INFERIOR INFARCT IS NOW PRESENT Confirmed by Lennox Del Cid MD ([id number]) on 09/05/2018 11:35:26 AM Referred By: Confirmed By:Lennox Del Cid MD
[2018-09-05 12:46] LABS: ANISOCYTOSIS 2+; MACROCYTOSIS 0; PLATELET ESTIMATE NORMAL; TARGET CELLS 1+
--- NOTE | 2018-09-05 19:14 | PN ---
Progress Note, Physician Chief Complaint: The patient is a 78M w/ a history of HTN, bladder ca w/ mets (not on CTX), and recurrent UTI who presents for evaluation for increased generalized weakness ( more in BLE) possibly 2/2 urosepsis per his Oncologist. Patient reports that he was able to ambulate with assistance while at rehab but has not been able to since returning home 2/2 fear of falling. The patient denies fevers/chills, chest pain, SOB, abdominal pain, dysuria, or hematuria. The patient is on day 3 of Augmentin and Linezolid. Patient sent for admission by Oncologist. He was seen and examine in cardiac f/u today for an abnormal ECG reading. His ECG this admission was read as inferior infarct, new from prior. Upon review of ECG, there are borderline/questionable Q waves inferiorly that appear similar to previous ECGs. It does not appear to be clearly an interval infarct. The patient denies chest pain, dyspnea, nausea, vomiting or diaphoresis. He denies GI sx. History of Present Illness: His cardiac hx is negative for prior revascularization. He followed for a small and stable mild, 4.2cm ascending aortic aneurysm. Prior to thus admission, I had seen him in hospital in July for sinus tachycardia in setting of a UTI and dehydration. His last office visit was in May of 2018, at which time he was stable from a cardiac standpoint. - Current Medication List Current Medications: Active Medications Amoxicillin/Clavulanate Potassium (Augmentin - 875mg Tablet) 1 tab PO BID@0800, 1730 [facility] Last Admin: 09/05/18 17:46 Dose: 1 tab Docusate Sodium (Colace -) 100 mg PO TID [facility] Last Admin: 09/05/18 13:24 Dose: Not Given Finasteride (Proscar -) 5 mg PO DAILY [facility] Last Admin: 09/05/18 10:04 Dose: 5 mg Linezolid (Zyvox (Restricted To Id) -) 600 mg PO BID [facility] Last Admin: 09/05/18 10:18 Dose: 600 mg Metformin HCl (Glucophage -) 1,000 mg PO BIDAC [facility] Last Admin: 09/05/18 16:05 Dose: 1,000 mg Metoprolol Succinate (Toprol Xl -) 100 mg PO DAILY [facility] Last Admin: 09/05/18 10:03 Dose: 100 mg Multivitamins/Minerals (Theragran-M) 1 each PO DAILY [facility] Last Admin: 09/05/18 10:03 Dose: 1 each Nifedipine (Procardia Xl -) 30 mg PO DAILY [facility] Last Admin: 09/05/18 10:03 Dose: 30 mg Potassium Chloride (K-Dur -) 10 meq PO BID [facility] Last Admin: 09/05/18 10:03 Dose: 10 meq Tamsulosin HCl (Flomax -) 0.4 mg PO DAILY@0830 [facility] Last Admin: 09/05/18 08:36 Dose: 0.4 mg Zolpidem Tartrate (Ambien -) 5 mg PO HS PRN PRN Reason: INSOMNIA Last Admin: 09/04/18 23:58 Dose: 5 mg - Objective Vital Signs: Vital Signs Temperature 98.2 F 09/05/18 18:52 Pulse Rate 84 09/05/18 18:52 Respiratory Rate 18 09/05/18 18:52 Blood Pressure 120/75 09/05/18 18:52 O2 Sat by Pulse Oximetry (%) 97 09/05/18 15:00 Constitutional: Yes: No Distress, Calm Eyes: Yes: Conjunctiva Clear, EOM Intact HENT: Yes: Atraumatic, Normocephalic Neck: Yes: Trachea Midline Cardiovascular: Yes: Regular Rate and Rhythm, S1, S2 (No murmurs.) Respiratory: Yes: CTA Bilaterally (no wheezing or rales.) Gastrointestinal: Yes: Soft (nontender) Edema: No Neurological: Yes: Alert, Oriented ...Motor Strength: WNL Labs: CBC, BMP 09/05/18 06:30 09/05/18 06:30 - ....Imaging Chest X-ray: Image Reviewed EKG: Image Reviewed Other: Other (Persantine MIBI 12/10/16: no ischemia, EF 68%, No TID) Problem List - Problems (1) Abnormal EKG Assessment/Plan: -Equivocal inferior Q waves, cannot r/o old inferior [place] Code(s): R94.31 - ABNORMAL ELECTROCARDIOGRAM [ECG] [EKG] (2) Bladder cancer Code(s): C67.9 - MALIGNANT NEOPLASM OF BLADDER, UNSPECIFIED Qualifiers: Bladder location: unspecified site Qualified Code(s): C67.9 - Malignant neoplasm of bladder, unspecified (3) 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 Code(s): C79.9 - SECONDARY MALIGNANT NEOPLASM OF UNSPECIFIED SITE; C67.9 - MALIGNANT NEOPLASM OF BLADDER, UNSPECIFIED (4) Weakness generalized Assessment/Plan: -nonspecific finding, possibly secondary UTI Code(s): R53.1 - WEAKNESS (5) Asymptomatic hypertension Assessment/Plan: Currently well controlled Code(s): I10 - ESSENTIAL (PRIMARY) HYPERTENSION (6) BPH (benign prostatic hyperplasia) Code(s): N40.0 - BENIGN PROSTATIC HYPERPLASIA WITHOUT LOWER URINRY TRACT SYMP Qualifiers: Lower urinary tract symptom detail: unspecified (7) Diabetes Code(s): E11.9 - TYPE 2 DIABETES MELLITUS WITHOUT COMPLICATIONS Qualifiers: Diabetes mellitus type: type 2 Diabetes mellitus complication status: with kidney complications Chronic kidney disease stage: stage 2 (mild) (8) Ascending aortic aneurysm Assessment/Plan: Mild, small and stable 4.2cm Code(s): I71.2 - THORACIC AORTIC ANEURYSM, WITHOUT RUPTURE Assessment/Plan IMP: 1. Metastatic bladder CA 2. Possible/suspected UTI 3. Generalized weakness 4. Profound anemia, symptomatic, requiring PRBCS 5 Diabetes, type 2 with mild chronic CKD, stage II 6. Chronic well controlled HTN 7. Small and stable ascending aortic aneurysm of 4.2cm without associated AR 8. Abnormal ECG with equivocal inferior Q waves, cannot r/o old inferior W[place] vs lead positional changes. --> Upon review of ECG, the inferior Q waves are equivocal and not clearly indicative of prior inferior WY. Review of prior ECGs shows similar pattern in the inferior leads, without clear criteria for inferior WY. Current ECG may be due to lead positional changes. However, old inferior WY cannot be completely excluded. REC: 1. Repeat echo for EF and wall motion, previously normal. 2. Cycle cardiac enzymes- unlikely to be positive. 3. Repeat ECG 4. Nuclear stress test was normal November 2016 with no evidence of infarct or ischemia. Depending on results of echo, can consider repeating. If enzymes are negative and echo normal any further ischemic evaluation can be done as outpatient. 5. Will hold ASA as patient is markedly anemic requiring PRBCs today, etiology unclear. Further w/u as per PMD. Follow H/H; stool guaiac 6. Rx of possible UTI as per PMD 7. DVT prophylaxis. Will follow Thank you.
[2018-09-05] MEDS: ZOLPIDEM TARTRATE 5 MG TABLET PO PRN (22:01)
[2018-09-06] MEDS: ACETAMINOPHEN 325 MG TABLET (FP) PO PRN (04:26)
[2018-09-06] MEDS: DOCUSATE SODIUM 100 MG CAPSULE (FP) PO SCH ×3 (05:26→21:53)
[2018-09-06] MEDS: metFORMIN HCL 500 MG TABLET (FP) PO SCH ×2 (06:24→16:46)
[2018-09-06] MEDS: TAMSULOSIN HCL 0.4 MG CAP PO SCH (07:58)
[2018-09-06] MEDS: AMOX TR/POT CLAV 875MG/125MG TABLETS (FP) PO SCH ×2 (07:58→16:46)
[2018-09-06] MEDS ORDERED: PT OWN MED DRAWER 7, Y5N ONE ×2 (08:45→18:59)
[2018-09-06 08:53] LABS: BASO % 0.8 % (0-2.0); EOS % 0.3 % (0-4.5); HEMATOCRIT 25.5 % (35.4-49); HEMOGLOBIN 8.1 GM/dL (11.7-16.9); LYMPH % 9.7 % (8-40); MCH 22.8 pg (25.7-33.7); MCHC 31.8 g/dl (32.0-35.9); MEAN CELL VOLUME 71.5 fl (80-96); MEAN PLT VOLUME 8.7 fl (7.5-11.1); MONO % 5.5 % (3.8-10.2); NEUT % 83.7 % (42.8-82.8); PLATELET COUNT 223 K/MM3 (134-434); RBC 3.57 M/mm3 (4.00-5.60); RDW 27.8 % (11.9-15.9); WHITE BLOOD COUNT 9.9 K/mm3 (4.0-10.0)
--- NOTE | 2018-09-06 08:57 | PN ---
Progress Note, Physician Chief Complaint: no chest pain or SOB Cardiac enzymes are negative - Current Medication List Current Medications: Active Medications Acetaminophen (Tylenol -) 650 mg PO Q6H PRN PRN Reason: PAIN LEVEL 1-5 Last Admin: 09/06/18 04:26 Dose: 650 mg Amoxicillin/Clavulanate Potassium (Augmentin - 875mg Tablet) 1 tab PO BID@0800, 1730 [facility] Last Admin: 09/06/18 07:58 Dose: 1 tab Docusate Sodium (Colace -) 100 mg PO TID [facility] Last Admin: 09/06/18 05:26 Dose: Not Given Finasteride (Proscar -) 5 mg PO DAILY [facility] Last Admin: 09/05/18 10:04 Dose: 5 mg Linezolid (Zyvox (Restricted To Id) -) 600 mg PO BID [facility] Last Admin: 09/05/18 22:02 Dose: 600 mg Metformin HCl (Glucophage -) 1,000 mg PO BIDAC [facility] Last Admin: 09/06/18 06:24 Dose: 1,000 mg Metoprolol Succinate (Toprol Xl -) 100 mg PO DAILY [facility] Last Admin: 09/05/18 10:03 Dose: 100 mg Multivitamins/Minerals (Theragran-M) 1 each PO DAILY [facility] Last Admin: 09/05/18 10:03 Dose: 1 each Nifedipine (Procardia Xl -) 30 mg PO DAILY [facility] Last Admin: 09/05/18 10:03 Dose: 30 mg Potassium Chloride (K-Dur -) 10 meq PO BID [facility] Last Admin: 09/05/18 22:01 Dose: 10 meq Tamsulosin HCl (Flomax -) 0.4 mg PO DAILY@0830 [facility] Last Admin: 09/06/18 07:58 Dose: 0.4 mg Zolpidem Tartrate (Ambien -) 5 mg PO HS PRN PRN Reason: INSOMNIA Last Admin: 09/05/18 22:01 Dose: 5 mg - Objective Vital Signs: Vital Signs Temperature 98.3 F 09/06/18 05:51 Pulse Rate 85 09/06/18 05:51 Respiratory Rate 18 09/06/18 05:51 Blood Pressure 126/73 09/06/18 05:51 O2 Sat by Pulse Oximetry (%) 98 09/05/18 23:00 Constitutional: Yes: Calm Cardiovascular: Yes: Regular Rate and Rhythm Respiratory: Yes: CTA Bilaterally Gastrointestinal: Yes: Soft Edema: No Neurological: Yes: Alert, Oriented ...Motor Strength: WNL Labs: CBC, BMP 09/06/18 06:15 09/06/18 08:40 Laboratory Tests 09/05/18 09/06/18 09/06/18 22:00 06:15 06:15 WBC 9.9 Hgb 8.1 L Hct 25.5 L Plt Count 223 Troponin I < 0.02 < 0.02 Problem List - Problems (1) Abnormal EKG Code(s): R94.31 - ABNORMAL ELECTROCARDIOGRAM [ECG] [EKG] (2) Bladder cancer Code(s): C67.9 - MALIGNANT NEOPLASM OF BLADDER, UNSPECIFIED Qualifiers: Bladder location: unspecified site Qualified Code(s): C67.9 - Malignant neoplasm of bladder, unspecified (3) 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 Code(s): C79.9 - SECONDARY MALIGNANT NEOPLASM OF UNSPECIFIED SITE; C67.9 - MALIGNANT NEOPLASM OF BLADDER, UNSPECIFIED (4) Weakness generalized Code(s): R53.1 - WEAKNESS (5) Asymptomatic hypertension Code(s): I10 - ESSENTIAL (PRIMARY) HYPERTENSION (6) BPH (benign prostatic hyperplasia) Code(s): N40.0 - BENIGN PROSTATIC HYPERPLASIA WITHOUT LOWER URINRY TRACT SYMP Qualifiers: Lower urinary tract symptom detail: unspecified (7) Diabetes Code(s): E11.9 - TYPE 2 DIABETES MELLITUS WITHOUT COMPLICATIONS Qualifiers: Diabetes mellitus type: type 2 Diabetes mellitus complication status: with kidney complications Chronic kidney disease stage: stage 2 (mild) (8) Ascending aortic aneurysm Code(s): I71.2 - THORACIC AORTIC ANEURYSM, WITHOUT RUPTURE Assessment/Plan IMP: 1. Metastatic bladder CA 2. Possible/suspected UTI 3. Generalized weakness 4. Profound anemia, symptomatic, requiring PRBCS 5 Diabetes, type 2 with mild chronic CKD, stage II 6. Chronic well controlled HTN 7. Small and stable ascending aortic aneurysm of 4.2cm without associated AR 8. Abnormal ECG with equivocal inferior Q waves, cannot r/o old inferior [place] vs lead positional changes. --> Upon review of ECG, the inferior Q waves are equivocal and not clearly indicative of prior inferior ME. Review of prior ECGs shows similar pattern in the inferior leads, without clear criteria for inferior ME. Current ECG may be due to lead positional changes. However, old inferior ME cannot be completely excluded. REC: 1. Repeat echo for EF and wall motion, previously normal. 2. Cardiac enzymes normal. 3. Repeat ECG 4. Nuclear stress test was normal November 2016 with no evidence of infarct or ischemia. Depending on results of echo, can consider repeating. If enzymes are negative and echo normal any further ischemic evaluation can be done as outpatient. 5. Will hold ASA as patient is markedly anemic requiring PRBCs , etiology unclear. Further w/u as per PMD. Follow H/H; stool guaiac 6. Rx of possible UTI as per PMD 7. DVT prophylaxis.
[2018-09-06 09:34] LABS: ALK PHOS > 1000 U/L (45-117); ANION GAP 9 MMOL/L (8-16); BLOOD UREA NITROGEN 11 mg/dL (7-18); CHLORIDE 103 mmol/L (98-107); CO2 21 mmol/L (21-32); CREATININE 0.5 mg/dL (0.55-1.3); GLUCOSE,RANDOM 143 mg/dL (74-106); POTASSIUM 4.1 mmol/L (3.5-5.1); SGOT/AST 29 U/L (15-37); SGPT/ALT 24 U/L (13-61); SODIUM 132 mmol/L (136-145); TOT PROT 6.1 g/dl (6.4-8.2)
[2018-09-06 09:53] LABS: CALCIUM 6.7 mg/dL (8.5-10.1)
[2018-09-06] MEDS: MULTIVITAMINS THER W-MINERALS COMBO TABLET (FP) PO SCH (10:08)
[2018-09-06] MEDS: LINEZOLID 600 MG TABLET (RESTRICTED TO ID) PO SCH ×2 (10:08→22:06)
[2018-09-06] MEDS: NIFEdipine E.R. 30 MG TABLET (FP) PO SCH (10:08)
[2018-09-06] MEDS: POTASSIUM CHLORIDE TABS 10 MEQ TABLET.ER (FP) PO SCH ×2 (10:08→22:05)
[2018-09-06] MEDS: FINASTERIDE 5 MG TABLET (FP) PO SCH (10:08)
--- NOTE | 2018-09-06 10:56 | EKG ---
Test Reason : Blood Pressure : / mmHG Vent. Rate : 084 BPM Atrial Rate : 084 BPM P-R Int : 198 ms QRS Dur : 090 ms QT Int : 380 ms P-R-T Axes : 032 -59 012 degrees QTc Int : 449 ms SINUS RHYTHM WITH PREMATURE ATRIAL COMPLEXES LEFT AXIS DEVIATION INFERIOR INFARCT (CITED ON OR BEFORE 04-SEP-2018) ABNORMAL ECG WHEN COMPARED WITH ECG OF 04-SEP-2018 17:24, PREMATURE ATRIAL COMPLEXES ARE NOW PRESENT OR INTERVAL HAS DECREASED Confirmed by RENETTA LYNCH, GUMARO ([id number]) on 09/06/2018 10:55:51 AM Referred By: NARCISO RUTLEDGE Confirmed By:GUMARO JACKSON MD
--- NOTE | 2018-09-06 14:57 | ECHO ---
Name: MALATHI CHUA JR Exam:Adult Echocardiogram Study Date: 09/06/2018 10:08 AM Age: 78 yrs Reason For Study: TX ON ECG Height: 68 in Weight: 148 lb BSA: 1.8 m2 MMode/2D Measurements & Calculations IVSd: 1.2 cm Ao root diam: 3.8 cm LVIDd: 5.2 cm LA dimension: 3.7 cm LVIDs: 3.3 cm ACS: 1.8 cm LVPWd: 1.0 cm EDV(Teich): 130.9 ml LVOT diam: 2.2 cm ESV(Cristiano): 43.4 ml TAPSE: 2.5 cm RV S Augie: 15.8 cm/sec Doppler Measurements & Calculations Med Peak E' Augie: 4.2 cm/sec Lat Peak E' Augie: 7.9 cm/sec Procedure A two-dimensional transthoracic echocardiogram with color flow and Doppler was performed. The study w as technically difficult with many images being suboptimal in quality. Left Ventricle The left ventricular size, thickness and function are normal. The left ventricular ejection fraction is normal. The left ventricular wall motion is normal. Right Ventricle The right ventricle is normal in size and function. Atria Normal left and right atrial size and function. Mitral Valve There is mild to moderate mitral valve thickening. There is no mitral valve stenosis. There is mild m itral regurgitation. Tricuspid Valve There is mild tricuspid valve thickening. There is no tricuspid stenosis. There was insufficient TR d etected to calculate RV systolic pressure. Aortic Valve The aortic valve is not well visualized. No hemodynamically significant valvular aortic stenosis. No aortic regurgitation is present. Pulmonic Valve The pulmonic valve is not well visualized. Great Vessels The aortic root is normal size. Pericardium/Pleura Moderate pericardial effusion (1-2 cm). The echo/Doppler findings are inconclusive for cardiac tampon charan. Interpretation Summary Clinical correlation is recommended. A two-dimensional transthoracic echocardiogram with color flow a nd Doppler was performed. The left ventricular size, thickness and function are normal The left ventricular ejection fraction is normal. The left ventricular wall motion is normal. The study was technically difficult with many images being suboptimal in quality. The right ventricle is normal in size and function. Normal left and right atrial size and function. There was insufficient TR detected to calculate RV systolic pressure. The echo/Doppler findings are inconclusive for cardiac tamponade. Moderate pericardial effusion (1-2 cm) Clinical correlation is recommended. MD Andrew Acosta 09/06/2018 02:56 PM
[2018-09-06] MEDS ORDERED: LOPERAMIDE HCL 2 MG CAPSULE PO ONE ×2 (15:40→15:45)
--- NOTE | 2018-09-06 19:38 | PN ---
Progress Note, Physician History of Present Illness: Pt feeling weak - Current Medication List Current Medications: Active Medications Acetaminophen (Tylenol -) 650 mg PO Q6H PRN PRN Reason: PAIN LEVEL 1-5 Last Admin: 09/06/18 04:26 Dose: 650 mg Amoxicillin/Clavulanate Potassium (Augmentin - 875mg Tablet) 1 tab PO BID@0800, 1730 [facility] Last Admin: 09/06/18 16:46 Dose: 1 tab Docusate Sodium (Colace -) 100 mg PO TID [facility] Last Admin: 09/06/18 13:08 Dose: Not Given Finasteride (Proscar -) 5 mg PO DAILY [facility] Last Admin: 09/06/18 10:08 Dose: 5 mg Linezolid (Zyvox (Restricted To Id) -) 600 mg PO BID [facility] Last Admin: 09/06/18 10:08 Dose: 600 mg Metformin HCl (Glucophage -) 1,000 mg PO BIDAC [facility] Last Admin: 09/06/18 16:46 Dose: 1,000 mg Metoprolol Succinate (Toprol Xl -) 100 mg PO DAILY [facility] Last Admin: 09/06/18 10:08 Dose: 100 mg Multivitamins/Minerals (Theragran-M) 1 each PO DAILY [facility] Last Admin: 09/06/18 10:08 Dose: 1 each Nifedipine (Procardia Xl -) 30 mg PO DAILY [facility] Last Admin: 09/06/18 10:08 Dose: 30 mg Potassium Chloride (K-Dur -) 10 meq PO BID [facility] Last Admin: 09/06/18 10:08 Dose: 10 meq Tamsulosin HCl (Flomax -) 0.4 mg PO DAILY@0830 [facility] Last Admin: 09/06/18 07:58 Dose: 0.4 mg Zolpidem Tartrate (Ambien -) 5 mg PO HS PRN PRN Reason: INSOMNIA Last Admin: 09/05/18 22:01 Dose: 5 mg - Objective Vital Signs: Vital Signs Temperature 97.9 F 09/06/18 18:04 Pulse Rate 76 09/06/18 18:04 Respiratory Rate 18 09/06/18 18:04 Blood Pressure 138/82 09/06/18 18:04 O2 Sat by Pulse Oximetry (%) 98 09/06/18 15:00 Constitutional: Yes: No Distress, Pallor HENT: Yes: WNL Neck: Yes: WNL, Supple Cardiovascular: Yes: WNL, Regular Rate and Rhythm Respiratory: Yes: WNL, Regular, CTA Bilaterally Gastrointestinal: Yes: WNL, Normal Bowel Sounds, Soft Extremities: Yes: WNL Edema: No Labs: CBC, BMP 09/06/18 06:15 09/06/18 08:40 Problem List - Problems (1) Symptomatic anemia Assessment/Plan: Monitor H/H Pt was transfused PRBC Pt will need placement in STR for weakness Code(s): D64.9 - ANEMIA, UNSPECIFIED (2) Abnormal EKG Assessment/Plan: Echo showed pericardial effusion w/out tamponade CT consult for bx Will need to r/o malginant effusion Cont to monitor on tele As per cardio Code(s): R94.31 - ABNORMAL ELECTROCARDIOGRAM [ECG] [EKG] (3) Bladder cancer Assessment/Plan: As per onco Mets to liver/bone Chemotx has been on hold due to recurrent UTI's Code(s): C67.9 - MALIGNANT NEOPLASM OF BLADDER, UNSPECIFIED Qualifiers: Bladder location: unspecified site Qualified Code(s): C67.9 - Malignant neoplasm of bladder, unspecified (4) UTI (urinary tract infection) Assessment/Plan: Cont linezolid/augment WBC is normal Pt is afebrile Code(s): N39.0 - URINARY TRACT INFECTION, SITE NOT SPECIFIED (5) Weakness generalized Assessment/Plan: Pt will need placement in STR PT eval Code(s): R53.1 - WEAKNESS (6) Acute on chronic renal failure Assessment/Plan: Monitor bun/creatinine Code(s): N17.9 - ACUTE KIDNEY FAILURE, UNSPECIFIED; N18.9 - CHRONIC KIDNEY DISEASE, UNSPECIFIED Qualifiers: Acute renal failure type: unspecified Chronic kidney disease stage: stage 3 (moderate) Qualified Code(s): N17.9 - Acute kidney failure, unspecified; N18.3 - Chronic kidney disease, stage 3 (moderate) (7) BPH (benign prostatic hyperplasia) Code(s): N40.0 - BENIGN PROSTATIC HYPERPLASIA WITHOUT LOWER URINRY TRACT SYMP Qualifiers: Lower urinary tract symptom detail: unspecified (8) Diabetes Code(s): E11.9 - TYPE 2 DIABETES MELLITUS WITHOUT COMPLICATIONS Qualifiers: Diabetes mellitus type: type 2 Diabetes mellitus complication status: with kidney complications Chronic kidney disease stage: stage 2 (mild) (9) HLD (hyperlipidemia) Code(s): E78.5 - HYPERLIPIDEMIA, UNSPECIFIED (10) Hypertension Code(s): I10 - ESSENTIAL (PRIMARY) HYPERTENSION Qualifiers: Hypertension type: other secondary hypertension Qualified Code(s): I15.8 - Other secondary hypertension
[2018-09-06] MEDS: ZOLPIDEM TARTRATE 5 MG TABLET PO PRN (22:05)
[2018-09-07] MEDS: ACETAMINOPHEN 325 MG TABLET (FP) PO PRN (03:19)
[2018-09-07] MEDS: metFORMIN HCL 500 MG TABLET (FP) PO SCH (06:35)
[2018-09-07 06:49] LABS: BASO % 0.6 % (0-2.0); EOS % 0.2 % (0-4.5); HEMATOCRIT 25.6 % (35.4-49); HEMOGLOBIN 8.2 GM/dL (11.7-16.9); LYMPH % 9.1 % (8-40); MCH 22.9 pg (25.7-33.7); MCHC 32.1 g/dl (32.0-35.9); MEAN CELL VOLUME 71.2 fl (80-96); MEAN PLT VOLUME 7.9 fl (7.5-11.1); MONO % 5.1 % (3.8-10.2); PLATELET COUNT 208 K/MM3 (134-434); RBC 3.59 M/mm3 (4.00-5.60); RDW 27.9 % (11.9-15.9); WHITE BLOOD COUNT 10.2 K/mm3 (4.0-10.0)
[2018-09-07] MEDS: DOCUSATE SODIUM 100 MG CAPSULE (FP) PO SCH (06:49)
[2018-09-07 08:24] LABS: ALBUMIN 2.1 g/dl (3.4-5.0); ALK PHOS 983 U/L (45-117); ANION GAP 11 MMOL/L (8-16); BILIRUBIN,TOTAL 1.7 mg/dL (0.2-1); BLOOD UREA NITROGEN 11 mg/dL (7-18); CHLORIDE 102 mmol/L (98-107); CO2 20 mmol/L (21-32); CREATININE 0.5 mg/dL (0.55-1.3); GLUCOSE,RANDOM 130 mg/dL (74-106); POTASSIUM 4.1 mmol/L (3.5-5.1); SGOT/AST 29 U/L (15-37); SGPT/ALT 25 U/L (13-61); SODIUM 133 mmol/L (136-145); TOT PROT 6.2 g/dl (6.4-8.2)
[2018-09-07 08:32] LABS: CALCIUM 6.4 mg/dL (8.5-10.1)
[2018-09-07 09:13] VITALS: BP 132/93; PULSE 88; TEMP 98.1
--- NOTE | 2018-09-07 09:46 | PN ---
Progress Note, Physician Chief Complaint: no chest pain or SOB TELE: NSR w/ APCs - Current Medication List Current Medications: Active Medications Acetaminophen (Tylenol -) 650 mg PO Q6H PRN PRN Reason: PAIN LEVEL 1-5 Last Admin: 09/07/18 03:19 Dose: 650 mg Amoxicillin/Clavulanate Potassium (Augmentin - 875mg Tablet) 1 tab PO BID@0800, 1730 [facility] Last Admin: 09/06/18 16:46 Dose: 1 tab Docusate Sodium (Colace -) 100 mg PO TID [facility] Last Admin: 09/07/18 06:49 Dose: Not Given Finasteride (Proscar -) 5 mg PO DAILY [facility] Last Admin: 09/06/18 10:08 Dose: 5 mg Linezolid (Zyvox (Restricted To Id) -) 600 mg PO BID [facility] Last Admin: 09/06/18 22:06 Dose: 600 mg Metformin HCl (Glucophage -) 1,000 mg PO BIDAC [facility] Last Admin: 09/07/18 06:35 Dose: 1,000 mg Metoprolol Succinate (Toprol Xl -) 100 mg PO DAILY [facility] Last Admin: 09/06/18 10:08 Dose: 100 mg Multivitamins/Minerals (Theragran-M) 1 each PO DAILY [facility] Last Admin: 09/06/18 10:08 Dose: 1 each Nifedipine (Procardia Xl -) 30 mg PO DAILY [facility] Last Admin: 09/06/18 10:08 Dose: 30 mg Potassium Chloride (K-Dur -) 10 meq PO BID [facility] Last Admin: 09/06/18 22:05 Dose: 10 meq Tamsulosin HCl (Flomax -) 0.4 mg PO DAILY@0830 [facility] Last Admin: 09/06/18 07:58 Dose: 0.4 mg Zolpidem Tartrate (Ambien -) 5 mg PO HS PRN PRN Reason: INSOMNIA Last Admin: 09/06/18 22:05 Dose: 5 mg - Objective Vital Signs: Vital Signs Temperature 98.1 F 09/07/18 09:12 Pulse Rate 88 09/07/18 09:12 Respiratory Rate 20 09/07/18 09:12 Blood Pressure 132/93 09/07/18 09:12 O2 Sat by Pulse Oximetry (%) 97 09/07/18 09:10 Constitutional: Yes: No Distress Cardiovascular: Yes: Regular Rate and Rhythm Respiratory: Yes: CTA Bilaterally Gastrointestinal: Yes: Soft Edema: No Neurological: Yes: Alert ...Motor Strength: WNL Labs: CBC, BMP 09/07/18 06:00 09/07/18 06:00 - ....Imaging EKG: Image Reviewed Problem List - Problems (1) Abnormal EKG Code(s): R94.31 - ABNORMAL ELECTROCARDIOGRAM [ECG] [EKG] (2) Bladder cancer Code(s): C67.9 - MALIGNANT NEOPLASM OF BLADDER, UNSPECIFIED Qualifiers: Bladder location: unspecified site Qualified Code(s): C67.9 - Malignant neoplasm of bladder, unspecified (3) 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 Code(s): C79.9 - SECONDARY MALIGNANT NEOPLASM OF UNSPECIFIED SITE; C67.9 - MALIGNANT NEOPLASM OF BLADDER, UNSPECIFIED (4) Weakness generalized Code(s): R53.1 - WEAKNESS (5) Asymptomatic hypertension Code(s): I10 - ESSENTIAL (PRIMARY) HYPERTENSION (6) BPH (benign prostatic hyperplasia) Code(s): N40.0 - BENIGN PROSTATIC HYPERPLASIA WITHOUT LOWER URINRY TRACT SYMP Qualifiers: Lower urinary tract symptom detail: unspecified (7) Diabetes Code(s): E11.9 - TYPE 2 DIABETES MELLITUS WITHOUT COMPLICATIONS Qualifiers: Diabetes mellitus type: type 2 Diabetes mellitus complication status: with kidney complications Chronic kidney disease stage: stage 2 (mild) (8) Ascending aortic aneurysm Code(s): I71.2 - THORACIC AORTIC ANEURYSM, WITHOUT RUPTURE Assessment/Plan IMP: 1. Metastatic bladder CA with moderate pericardial effusion 2. Possible/suspected UTI 3. Generalized weakness 4. Profound anemia, symptomatic, requiring PRBCS 5 Diabetes, type 2 with mild chronic CKD, stage II 6. Chronic well controlled HTN 7. Small and stable ascending aortic aneurysm of 4.2cm without associated AR 8. Abnormal ECG with equivocal inferior Q waves, cannot r/o old inferior NY vs lead positional changes. --> Upon review of ECG, the inferior Q waves are equivocal and not clearly indicative of prior inferior NY. Review of prior ECGs shows similar pattern in the inferior leads, without clear criteria for inferior NY. Current ECG may be due to lead positional changes. However, old inferior NY cannot be completely excluded. REC: 1. Moderate pericardial effusion, reviewed study. No tamponade. May be malignant. Discussed case w/ IR yesterday, they advised consulting CT surgery for evaluation for non-emergent drainage/ window. CT surgery consulted. 2. Cardiac enzymes normal. 3. DVT prophylaxis 4. Continue Tele
[2018-09-07] MEDS ORDERED: ENOXAPARIN NA (PORCINE) 40 MG/0.4 ML DISP.SYRIN SQ SCH (10:00)
[2018-09-07] MEDS: TAMSULOSIN HCL 0.4 MG CAP PO SCH (10:20)
[2018-09-07] MEDS: MULTIVITAMINS THER W-MINERALS COMBO TABLET (FP) PO SCH (10:20)
[2018-09-07] MEDS: POTASSIUM CHLORIDE TABS 10 MEQ TABLET.ER (FP) PO SCH (10:20)
[2018-09-07] MEDS: AMOX TR/POT CLAV 875MG/125MG TABLETS (FP) PO SCH (10:21)
[2018-09-07] MEDS: NIFEdipine E.R. 30 MG TABLET (FP) PO SCH (10:22)
[2018-09-07] MEDS: FINASTERIDE 5 MG TABLET (FP) PO SCH (10:23)
[2018-09-07] MEDS: LINEZOLID 600 MG TABLET (RESTRICTED TO ID) PO SCH (10:24)
--- NOTE | 2018-09-07 10:44 | PN ---
Progress Note (short form) - Note Progress Note: Oncology Patient seen and examined Well known to our service. Metastatic bladder ca with known bone and liver mets. S/P one cycle of carboplatinum and gemcitibine chemotherapy. Multiple infections including ESBL E. coli requiring therapy. Nephrostomy tubes in the past infected, replaced removed and internalized Currently without chest pain or SOB Found to have moderate pericardial effusion. This will require drainage. Last Vital Signs Temp Pulse Resp BP Pulse Ox 98.1 F 88 20 132/93 97 09/07/18 09:12 09/07/18 09:12 09/07/18 09:12 09/07/18 09:12 09/07/18 09:10 HEENT: FLETCHER, EOM Intact Oropharynx: No thrush, No mucositis Neck: Supple Nodes: Without adenopathy Cor: RSR, No murmurs, No gallops Lungs: Clear to P&A Abd: Soft, Normal bowel sounds, No organomegaly Ext:No significant edema Skin: No rashes, Integument intact CBC, BMP 09/07/18 06:00 09/07/18 06:00 Current Medications Generic Name Dose Route Start Last Admin Trade Name Freq PRN Reason Stop Dose Admin Acetaminophen 650 mg 09/06/18 04:22 09/07/18 03:19 Tylenol - PO 650 mg Q6H PRN Administration PAIN LEVEL 1-5 Amoxicillin/Clavulanate Potassium 1 tab 09/04/18 23:27 09/07/18 10:21 Augmentin - 875mg Tablet PO 1 tab BID@0800,1730 LIT Administration Docusate Sodium 100 mg 09/05/18 06:00 09/07/18 06:49 Colace - PO Not Given TID LIT Enoxaparin Sodium 40 mg 09/07/18 10:00 09/07/18 10:22 Lovenox - SQ 40 mg DAILY LIT Administration Finasteride 5 mg 09/05/18 10:00 09/07/18 10:23 Proscar - PO 5 mg DAILY LIT Administration Linezolid 600 mg 09/04/18 23:30 09/07/18 10:24 Zyvox (Restricted To Id) - PO 600 mg BID LIT Administration Metformin HCl 1,000 mg 09/04/18 23:45 09/07/18 06:35 Glucophage - PO 1,000 mg BIDAC LIT Administration Metoprolol Succinate 100 mg 09/05/18 10:00 09/07/18 10:23 Toprol Xl - PO 100 mg DAILY LIT Administration Multivitamins/Minerals 1 each 09/05/18 10:00 09/07/18 10:20 Theragran-M PO 1 each DAILY LIT Administration Nifedipine 30 mg 09/05/18 10:00 09/07/18 10:22 Procardia Xl - PO 30 mg DAILY LIT Administration Potassium Chloride 10 meq 09/05/18 10:00 09/07/18 10:20 K-Dur - PO 10 meq BID LIT Administration Tamsulosin HCl 0.4 mg 09/05/18 08:30 09/07/18 10:20 Flomax - PO 0.4 mg DAILY@0830 LIT Administration Zolpidem Tartrate 5 mg 09/04/18 23:25 09/06/18 22:05 Ambien - PO 5 mg HS PRN Administration INSOMNIA Impression: Metastatic bladder ca - s/p one cycle of carboplatimum and gemcitibine Multiple procedures for obstructive uropathy Pericardial effusion which will require drainage. Bone and liver mets. Anemia Frequent nephrostomy, urinary infections and prior bacterimia with resistant E.Coli , ESBL Plan : transfer to [facility] for pericardial window , drainage and pericardial biopsy.
--- NOTE | 2018-09-08 14:40 | DS ---
Physical Examination Vital Signs: Vital Signs Temperature 98.1 F 09/07/18 09:12 Pulse Rate 88 09/07/18 09:12 Respiratory Rate 20 09/07/18 09:12 Blood Pressure 132/93 09/07/18 09:12 O2 Sat by Pulse Oximetry (%) 97 09/07/18 09:10 Constitutional: Yes: Pallor HENT: Yes: WNL Neck: Yes: WNL, Supple Cardiovascular: Yes: WNL, Regular Rate and Rhythm Respiratory: Yes: WNL, Regular, CTA Bilaterally Gastrointestinal: Yes: WNL, Normal Bowel Sounds, Soft Labs: CBC, BMP 09/07/18 06:00 09/07/18 06:00 Discharge Summary Reason For Visit: DIABETES/SUSHMA NEOP OF URIN BLADDER Weakness Metastatic Bladder cancer(liver and bone) HTN HLD Anemia Pericardial effusion Diabetes Recurrent UTI's Hospital Course: Pt is a 78M w/ PMH significant for HTN, bladder ca w/ mets (to liver/bone), and recurrent UTI who presents for evaluation for increased generalized weakness. Pt has been on multiple rounds of antibxs for his UTI. Patient reports that he was able to ambulate with assistance while at rehab but has not been able to since returning home 2/2 fear of falling. Pt is on day #7 of augmentin and linezolid for UTI. Pt found to have abnormal EKG and echo was done wc showed pericardial effusion but no tamponade. Pt is now transferrred for bx of pericardial effusion to r/o malignant effusion. Condition: Fair - Instructions Disposition: TRANSFER ACUTE CARE/OTHER HOSP - Home Medications Comprehensive Discharge Medication List: Ambulatory Orders Finasteride [Proscar -] 5 mg PO DAILY 06/25/18 Metformin HCl [Glucophage] 1,000 mg PO BID 06/25/18 Metoprolol Succinate [Toprol XL -] 100 mg PO DAILY 06/25/18 Multivit-Min/FA/Lycopen/Lutein [Centrum Silver Men Tablet] 1 each PO DAILY 06/25 Nifedipine [Procardia Xl] 30 mg PO DAILY 06/25/18 Silodosin [Rapaflo] 8 mg PO DAILY 06/25/18 Zolpidem Tartrate [Ambien] 5 mg PO HS 06/25/18 Docusate Sodium [Colace -] 100 mg PO TID capsule 08/01/18 Insulin Sliding Scale [Novolog Vial Sliding Scale -] 1 vial SQ ACHS units 08/16 Potassium Chloride [K-Dur -] 10 meq PO BID #60 tablet.er 08/16/18 Amox-Tr/K Cl [Augmentin 875-125mg Tablet -] 1 tab PO BID@0800,1730 #14 tablet Linezolid [Zyvox (Restricted To Id) -] 600 mg PO BID #18 tablet 09/01/18
== END 2018-09-07 14:03 | disposition short-term general hospital (02) | DRG 315 ==
LOC: JER 14:50 → JERBED 21:03 → INTOOBSV 21:03 → J7W 22:35 → OBSVTOIN 09-06 15:39 → J4S 09-06 21:39
PROVIDERS: ADMIT Internal Medicine; ATTEND Internal Medicine
PROC: 30233N1 Transfusion of Nonautologous Red Blood Cells into Peripheral Vein, Percutaneous Approach (ICD-10-PCS; principal; 2018-09-05)
DX: I31.3 Pericardial effusion (noninflammatory) (principal); N39.0 Urinary tract infection, site not specified; C79.51 Secondary malignant neoplasm of bone; C78.7 Secondary malignant neoplasm of liver and intrahepatic bile duct; N17.9 Acute kidney failure, unspecified; C67.9 Malignant neoplasm of bladder, unspecified; I71.2 Thoracic aortic aneurysm, without rupture; I12.9 Hypertensive chronic kidney disease with stage 1 through stage 4 chronic kidney disease, or unspecified chronic kidney disease; N18.9 Chronic kidney disease, unspecified; Z85.51 Personal history of malignant neoplasm of bladder; E11.22 Type 2 diabetes mellitus with diabetic chronic kidney disease; N40.0 Benign prostatic hyperplasia without lower urinary tract symptoms; D56.9 Thalassemia, unspecified; Z79.84 Long term (current) use of oral hypoglycemic drugs; Z79.4 Long term (current) use of insulin; D64.9 Anemia, unspecified; E86.0 Dehydration
CPT/HCPCS: 36415; 36430; 71045-TC-FY; 80053; 81003; 81015; 82550; 82962; 84484; 85025; 85027; 86850; 86900; 86901; 86922; 87077; 87086; 93005; 93010; 93306-TC; 97116-GP; 97161-GP; 99283-25; G0378; P9038; P9058

== ENCOUNTER 2018-09-16 20:17 | Inpatient (IN) | payer OTHER ==
--- NOTE | 2018-09-16 21:05 | PDOC ---
Attending Attestation - HPI HPI: 09/16/18 22:35 The patient is a 78 year old male, from [facility], with past medical history of bladder cancer (recent mets to the liver) and hypertension who was sent in to the ED by Dr. Vance for fever and chills. The patient was recently discharged from the hospital on 09/08 for UTI and was found to have a pleural effusion. He was subsequently transferred and then placed at [facility]. Patient reports being bed bound because he is too weak. He states he doesnt eat much at the care home because he doesnt like the food. Denies any chest pain, shortness of breath, cough, nausea, vomiting, diarrhea. - Physicial Exam PE: 09/16/18 22:36 GENERAL: Awake, alert, and fully oriented, in no acute distress, warm to touch HEAD: No signs of trauma EYES: PERRLA, EOMI, scleral icterus, conjunctiva clear LUNGS: Breath sounds equal, clear to auscultation bilaterally. No wheezes, and no crackles HEART: Extremity, normal S1 and S2, no murmurs, rubs or gallops ABDOMEN: Soft, nontender, normoactive bowel sounds. No guarding, no rebound. No masses EXTREMITIES: Generalized weakness 3/5 in lower and 4/5 in the upper. Normal range of motion, no edema. No clubbing or cyanosis. No cords, erythema, or tenderness NEUROLOGICAL: Cranial nerves II through XII grossly intact. Normal speech. SKIN: Jaundice, Warm, Dry, normal turgor, no rashes - Medical Decision Making 09/16/18 22:41 Documentation prepared by Radha Matthews, acting as medical billing instructor for Lina Vincent MD. <Radha Matthews - Last Filed: 09/16/18 22:41> - Resident Resident Name: Rosalba Abreu - ED Attending Attestation I have performed the following: I have examined & evaluated the patient, The case was reviewed & discussed with the resident, I agree w/resident's findings & plan - Medical Decision Making 09/16/18 21:04 Pt is tachycardic and febrile and we will get labs and empirically start him on meropenem. 09/16/18 21:08 Dr. Daly called to let me know that pt's ID doc is Dr. Nino. 09/17/18 06:35 Pt is improved. He will be admitted for the fever and the worsening jaundice. He received abx and he will be admitted. <Lina Vincent - Last Filed: 09/17/18 06:35>
--- NOTE | 2018-09-16 22:00 | PDOC ---
History of Present Illness <Lina Vincent - Last Filed: 09/16/18 23:06> - History of Present Illness Initial Comments: Jeffrey Corley Jr is a 78yo man with a PMH of HTn, HLD, DM, and bladder CA with liver metastasis, recently admitted about 2 weeks ago with difficult to teat UTi and generalized weakness, transferred to an OSH for pericardial effusion. He was recently discharged to a SNF and reportedly had fevers and chills earlier today. He was additioanly noted to be tachycardic and had low oxygen saturation per EMS. His commercial service technician, Dr Vance, called the ED earlier tonight to inform of his transfer. She reported that he received meropenem and linezolid per Dr Nino earlier today for the fever. Mr Corley is currently denying that he ever had a fever or chills. He additionally denies shortness of breath, stating "why does everyone keep asking that?" He denies any chest pain, abdominal pain, nausea/vomiting, urinary symptoms, or change in bowel habits. He does endorse weight loss but reports that the "food is terrible" at his SNF. <Rosalba Abreu - Last Filed: 09/16/18 23:22> - General Stated Complaint: TACHYCARDIA/R/O PE Time Seen by Provider: 09/16/18 20:31 Past History <Lina Vincent - Last Filed: 09/16/18 23:06> - Past Medical History Anemia: Yes Asthma: No Cancer: Yes (BLADDER W/ mets to liver and bone) Cardiac Disorders: No CVA: No COPD: No CHF: No Dementia: No Diabetes: Yes GI Disorders: No Disorders: Yes (BPH) HTN: Yes Hypercholesterolemia: No Liver Disease: No Seizures: No Thyroid Disease: No - Surgical History Abdominal Surgery: No Appendectomy: No Cardiac Surgery: No - Immunization History Immunization Up to Date: Yes - Suicide/Smoking/Psychosocial Hx Smoking Status: Yes Smoking History: Never smoked Have you smoked in the past 12 months: No Number of Cigarettes Smoked Daily: 0 If you are a former smoker, when did you quit?: 1989 Hx Alcohol Use: No Drug/Substance Use Hx: No Substance Use Type: None Hx Substance Use Treatment: No <Rosalba Abreu - Last Filed: 09/16/18 23:22> - Past Medical History Allergies/Adverse Reactions: Allergies Allergy/AdvReac Type Severity Reaction Status Date / Time No Known Allergies Allergy Verified 09/04/18 21:02 Home Medications: Ambulatory Orders Finasteride [Proscar -] 5 mg PO DAILY 06/25/18 Metformin HCl [Glucophage] 1,000 mg PO BID 06/25/18 Metoprolol Succinate [Toprol XL -] 100 mg PO DAILY 06/25/18 Multivit-Min/FA/Lycopen/Lutein [Centrum Silver Men Tablet] 1 each PO DAILY 06/25 Nifedipine [Procardia Xl] 30 mg PO DAILY 06/25/18 Silodosin [Rapaflo] 8 mg PO DAILY 06/25/18 Zolpidem Tartrate [Ambien] 5 mg PO HS 06/25/18 Docusate Sodium [Colace -] 100 mg PO TID capsule 08/01/18 Insulin Sliding Scale [Novolog Vial Sliding Scale -] 1 vial SQ ACHS units 08/16 Potassium Chloride [K-Dur -] 10 meq PO BID #60 tablet.er 08/16/18 Amox-Tr/K Cl [Augmentin 875-125mg Tablet -] 1 tab PO BID@0800,1730 #14 tablet Linezolid [Zyvox (Restricted To Id) -] 600 mg PO BID #18 tablet 09/01/18 Review of Systems - Review of Systems Comments:: General: +Fever, +chills, +weight loss HEENT: No changes in vision, no changes in hearing, no congestion, no sore throat CV: No chest pain, no palpitations, no LE edema Pulm: No SOB, no cough, no wheezing GI: No nausea or vomiting, no change in bowel habits, no abdominal pain : No frequency, no urgency, no dysuria Musc: No back pain, no joint swelling, no recent injury Skin: No rash, no lesions, no erythema Endo: No excessive thirst, no heat/cold intolerance Heme: No unusual bruising or bleeding, no swollen glands Neuro: No syncope, no numbness/tingling, no focal weakness Vasc: No claudication Psych: No recent change in mood, no SI or HI <Rosalba Abreu - Last Filed: 09/16/18 23:22> *Physical Exam - Vital Signs Last Vital Signs Temp Pulse Resp BP Pulse Ox 98.8 F 122 H 28 H 100/72 91 L 09/16/18 20:27 09/16/18 20:27 09/16/18 20:27 09/16/18 20:27 09/16/18 20:27 <Lina Vincent - Last Filed: 09/16/18 23:06> - Vital Signs Last Vital Signs Temp Pulse Resp BP Pulse Ox 98.8 F 122 H 28 H 100/72 91 L 09/16/18 20:27 09/16/18 20:27 09/16/18 20:27 09/16/18 20:27 09/16/18 20:27 - Physical Exam Comments: General: Very thin, appears stated age, warm to touch HEENT: PERRL, EOMI, +scleral icterus. Dry mouth and tongue, voice normal, no lower teeth Cards: Tachycardic. Difficult to hear; no murmur appreciated Pulm: Mildly tachypnic on O2 by mask, clear to auscultation bilaterally Abd: Soft, nontender, nondistended Ext: Atraumatic. No LE edema. ROM intact. Strength 5/5 and equal bilaterally Vasc: Extremities WWP Skin: Jaundiced Neuro: Alert, oriented x3, CN grossly intact, normal speech, motor/sensory grossly intact and symmetric Psych: Mood appropriate to situation <Rosalba Abreu - Last Filed: 09/16/18 23:22> Moderate Sedation - Procedure Monitoring Vital Signs: Procedure Monitoring Vital Signs Temperature 98.8 F 09/16/18 20:27 Pulse Rate 122 H 09/16/18 20:27 Respiratory Rate 28 H 09/16/18 20:27 Blood Pressure 100/72 09/16/18 20:27 O2 Sat by Pulse Oximetry (%) 91 L 09/16/18 20:27 <Lina Vincent - Last Filed: 09/16/18 23:06> - Procedure Monitoring Vital Signs: Procedure Monitoring Vital Signs Temperature 98.8 F 09/16/18 20:27 Pulse Rate 122 H 09/16/18 20:27 Respiratory Rate 28 H 09/16/18 20:27 Blood Pressure 100/72 09/16/18 20:27 O2 Sat by Pulse Oximetry (%) 91 L 09/16/18 20:27 <Rosalba Abreu - Last Filed: 09/16/18 23:22> ED Treatment Course - LABORATORY CBC & Chemistry Diagram: 09/16/18 22:00 09/16/18 22:00 - ADDITIONAL ORDERS Additional order review: Laboratory Results 09/16/18 09/16/18 22:00 22:00 Sodium 130 L Potassium 4.9 Chloride 101 Carbon Dioxide 16 L Anion Gap 13 BUN 26 H Creatinine 0.8 Creat Clearance w eGFR > 60 Random Glucose 216 H Calcium 6.2 L* Phosphorus 2.8 Magnesium 1.9 Total Bilirubin 6.6 H AST 94 H ALT 37 Alkaline Phosphatase 969 H Ammonia 18.24 Creatine Kinase 59 Troponin I < 0.02 Total Protein 5.6 L Albumin 1.8 L 09/16/18 22:00 RBC 3.51 L MCV 69.7 L MCHC 33.5 RDW 28.4 H Neutrophils % No Result Required. Lymphocytes % No Result Required. - Medications Given in the ED: ED Medications Discontinued Medications Generic Name Dose Route Start Last Admin Trade Name Freq PRN Reason Stop Dose Admin Sodium Chloride 1,000 ml 09/16/18 22:25 09/16/18 22:42 Normal Saline - IV 09/16/18 22:26 1,000 ml ONCE ONE Administration <Lina Vincent - Last Filed: 09/16/18 23:06> - LABORATORY CBC & Chemistry Diagram: 09/16/18 22:00 09/16/18 22:00 - RADIOLOGY Radiology Studies Ordered: Category Date Time Status CXRPORT [CHEST X-RAY PORTABLE*] [RAD] Stat Radiology 09/16/18 20:40 Taken <Rosalba Abreu - Last Filed: 09/16/18 23:22> Medical Decision Making - Medical Decision Making 09/16/18 21:54 Jeffrey Corley Jr is a 78yo man with a PMH of HTn, HLD, DM, and bladder CA with liver metastasis who presents from a [facility] tonight with fever and chills. He received meropenem and linezolid per Dr Nino earlier today - Dr Vance called the ED to inform that pt was coming - concern for fever from known cancer - Tachycardic to 120's on arrival. Bedside echo to r/o effusion given recent pericardial window. Appears to have roughly normal EF, no effusion noted. - CBC, CMP, mag, phos, EKG, trop, CXR, UA ordered for evaluation - Blood and urine cultures ordered, though pt already received abx he still has a tactile fever - Initial oral temp 98F. Rectal temp ordered 09/16/18 22:24 - Rectal temperature 100.0 - Will give 1L fluid bolus for tachycardia and reassess - Per Dr Vincent, will contact Dr Vance regarding temp 09/16/18 23:20 - Labs reviewed. Notable for leukocytosis to 18.3. Bilirubin 6.6 from baseline 1.2 on 09/07/18. Alk phos elevated to 900's but at recent baseline. - UA and culture to be sent - Page to Dr Andrade for admission. - Spoke to Dr Andrade. Will admit to her service. Requesting CT abd/pelvis for elevated bilirubin and jaundice. Seen and discussed with Dr Melisa Abreu PGY1 <Rosalba Abreu - Last Filed: 09/16/18 23:22> *DC/Admit/Observation/Transfer - Discharge Dispostion Decision to Admit order: Yes <Lina Vincent - Last Filed: 09/16/18 23:06> <Rosalba Abreu - Last Filed: 09/16/18 23:22> Diagnosis at time of Disposition: Abnormal liver function tests, Jaundice Bladder cancer Qualifiers: Bladder location: unspecified site Qualified Code(s): C67.9 - Malignant neoplasm of bladder, unspecified Fever Qualifiers: Fever type: unspecified Qualified Code(s): R50.9 - Fever, unspecified - Referrals Referrals: Ashlyn Andrade MD [Primary Care Provider] - - Patient Instructions - Post Discharge Activity
[2018-09-16] MEDS ORDERED: FOLIC ACID INJECTION - 1 MG, THIAMINE HCL 100 MG, MULTIVIT INJECTION ADULT 10 ML in SOD... IVPB ONE (22:07)
[2018-09-16 22:25] LABS: HEMATOCRIT 24.5 % (35.4-49); HEMOGLOBIN 8.2 GM/dL (11.7-16.9); MCH 23.4 pg (25.7-33.7); MCHC 33.5 g/dl (32.0-35.9); MEAN CELL VOLUME 69.7 fl (80-96); RBC 3.51 M/mm3 (4.00-5.60); RDW 28.4 % (11.9-15.9); WHITE BLOOD COUNT 18.3 K/mm3 (4.0-10.0)
[2018-09-16] MEDS ORDERED: SODIUM CHLORIDE 0.9% 500 ML INFUS.BAG IV ONE (22:25)
[2018-09-16 22:43] LABS: ALBUMIN 1.8 g/dl (3.4-5.0); ALK PHOS 969 U/L (45-117); ANION GAP 13 MMOL/L (8-16); BILIRUBIN,TOTAL 6.6 mg/dL (0.2-1); BLOOD UREA NITROGEN 26 mg/dL (7-18); CHLORIDE 101 mmol/L (98-107); CO2 16 mmol/L (21-32); CREATININE 0.8 mg/dL (0.55-1.3); GLUCOSE,RANDOM 216 mg/dL (74-106); MAGNESIUM 1.9 mg/dL (1.8-2.4); PHOSPHOROUS 2.8 mg/dL (2.5-4.9); POTASSIUM 4.9 mmol/L (3.5-5.1); SGOT/AST 94 U/L (15-37); SGPT/ALT 37 U/L (13-61); SODIUM 130 mmol/L (136-145); TOT PROT 5.6 g/dl (6.4-8.2)
[2018-09-16 22:44] LABS: ADD RBC MORPHOLOGY YES
[2018-09-16 22:52] LABS: CALCIUM 6.2 mg/dL (8.5-10.1)
[2018-09-16] MEDS ORDERED: VALSARTAN 40 MG TABLET (FP) PO ONE (23:20)
[2018-09-16] MEDS ORDERED: VALSARTAN 80 MG TABLET (UD) ONE (23:24)
[2018-09-16 23:49] LABS: MEAN PLT VOLUME 10.1 fl (7.5-11.1); PLATELET COUNT 221 K/MM3 (134-434)
[2018-09-17] MEDS ORDERED: MEROPENEM 500 MG in DEXTROSE 5%-WATER 100 ML IVPB SCH (03:15)
[2018-09-17] MEDS ORDERED: MEROPENEM 500 MG in DEXTROSE 5%-WATER 100 ML IVPB ONE (04:00)
[2018-09-17] MEDS: DEXTROSE 5%-0.45% SALINE 1,000 ML IV SCH (05:12)
[2018-09-17 05:32] LABS: URINE APPEARANCE TURBID; URINE BILIRUBIN NEGATIVE (<2.0 mg/dL); URINE COLOR AMBER; URINE GLUCOSE (UA) NEGATIVE (NEGATIVE); URINE KETONE NEGATIVE (NEGATIVE); URINE LEUK ESTERASE 3+ (NEGATIVE); URINE NITRITE NEGATIVE (NEGATIVE); URINE PROTEIN 1+ (NEGATIVE)
[2018-09-17 05:48] LABS: URINE BACTERIA RARE /hpf (NONE SEEN)
[2018-09-17] MEDS ORDERED: metFORMIN HCL 500 MG TABLET (FP) ONE (06:43)
[2018-09-17] MEDS ORDERED: DOCUSATE SODIUM 100 MG CAPSULE (FP) PO ONE (06:44)
[2018-09-17] MEDS: DOCUSATE SODIUM 100 MG CAPSULE (FP) PO SCH ×4 (06:51→21:28)
[2018-09-17] MEDS: metFORMIN HCL 500 MG TABLET (FP) PO SCH ×2 (06:52→17:33)
[2018-09-17] MEDS: INSULIN SLIDING SCALE (NOVOLOG) 1 VIAL SQ SCH ×4 (06:53→21:28)
[2018-09-17 07:16] LABS: ALBUMIN 1.7 g/dl (3.4-5.0); ALK PHOS 924 U/L (45-117); ANION GAP 10 MMOL/L (8-16); BILIRUBIN,TOTAL 6.4 mg/dL (0.2-1); BLOOD UREA NITROGEN 23 mg/dL (7-18); CHLORIDE 103 mmol/L (98-107); CO2 19 mmol/L (21-32); CREATININE 0.7 mg/dL (0.55-1.3); GLUCOSE,RANDOM 238 mg/dL (74-106); POTASSIUM 4.8 mmol/L (3.5-5.1); SGOT/AST 64 U/L (15-37); SGPT/ALT 34 U/L (13-61); SODIUM 133 mmol/L (136-145); TOT PROT 5.3 g/dl (6.4-8.2)
[2018-09-17] MEDS ORDERED: ACETAMINOPHEN 325 MG TABLET (FP) PO ONE (07:28)
[2018-09-17] MEDS ORDERED: ACETAMINOPHEN 325 MG TABLET (FP) ONE ×2 (07:29→15:47)
[2018-09-17 07:56] LABS: BASO % 0.3 % (0-2.0); EOS % 0.1 % (0-4.5); HEMATOCRIT 25.9 % (35.4-49); HEMOGLOBIN 8.6 GM/dL (11.7-16.9); LYMPH % 5.6 % (8-40); MCH 23.7 pg (25.7-33.7); MCHC 33.1 g/dl (32.0-35.9); MEAN CELL VOLUME 71.6 fl (80-96); MEAN PLT VOLUME 9.4 fl (7.5-11.1); PLATELET COUNT 191 K/MM3 (134-434); RBC 3.62 M/mm3 (4.00-5.60); RDW 28.6 % (11.9-15.9); WHITE BLOOD COUNT 14.1 K/mm3 (4.0-10.0)
[2018-09-17 08:21] LABS: CALCIUM 6.2 mg/dL (8.5-10.1)
[2018-09-17] MEDS: TAMSULOSIN HCL 0.4 MG CAP PO SCH (09:15)
[2018-09-17] MEDS ORDERED: TAMSULOSIN HCL 0.4 MG CAP ONE (09:29)
[2018-09-17] MEDS: HEPARIN NA (PORCINE) 5,000 UNITS/ML 1ML VIAL SQ SCH ×2 (10:00→21:28)
[2018-09-17] MEDS: POTASSIUM CHLORIDE TABS 10 MEQ TABLET.ER (FP) PO SCH ×2 (10:00→21:28)
[2018-09-17] MEDS ORDERED: LINEZOLID 600 MG TABLET (RESTRICTED TO ID) PO ONE (10:00)
[2018-09-17] MEDS: FINASTERIDE 5 MG TABLET (FP) PO SCH (10:00)
[2018-09-17] MEDS: NIFEdipine E.R. 30 MG TABLET (FP) PO SCH (11:01)
--- NOTE | 2018-09-17 14:35 | CON.ID ---
Consult Consult Specialty:: infec Referred by:: infectious diseases Reason for Consultation:: weakness,lethargy fever - History of Present Illness Chief Complaint: fever History of Present Illness: 78 year old male, from [facility], with past medical history of bladder cancer (recent mets to the liver) and hypertension who was sent in to the ED by Dr. Vance for fever and chills. The patient was recently discharged from the hospital on 09/08 for UTI and was found to have a pleural effusion. He was subsequently transferred and then placed at [facility]. Patient reports being bed bound because he is too weak. He states he doesnt eat much at the shelter because he doesnt like the food. Denies any chest pain, shortness of breath, cough, nausea, vomiting, diarrhea. patient was worked and found to be in urinary retention and foleys was placed patient very weak - History Source History Provided By: Patient, Family Member Limitations to Obtaining History: No Limitations - Past Medical History Cardio/Vascular: Yes: HTN, Hyperlipdemia Hepatobiliary: Yes: Cirrhosis (by imaging) Renal/: Yes: Renal Failure, BPH, Cancer, Hematuria Endocrine: Yes: Diabetes Mellitus - Past Surgical History Past Surgical History: Yes: Stent (urinary), TURP - Alcohol/Substance Use Hx Alcohol Use: No History of Substance Use: reports: None - Smoking History Smoking history: Never smoked Have you smoked in the past 12 months: No Aproximately how many cigarettes per day: 0 If you are a former smoker, when did you quit?: 1989 - Social History Usual Living Arrangement: With Spouse ADL: Independent History of Recent Travel: No Home Medications - Allergies Allergies/Adverse Reactions: Allergies Allergy/AdvReac Type Severity Reaction Status Date / Time No Known Allergies Allergy Verified 09/04/18 21:02 - Home Medications Home Medications: Ambulatory Orders RX: Finasteride [Proscar -] 5 mg PO DAILY 06/25/18 RX: Metformin HCl [Glucophage] 1,000 mg PO BID 06/25/18 RX: Metoprolol Succinate [Toprol XL -] 100 mg PO DAILY 06/25/18 RX: Multivit-Min/FA/Lycopen/Lutein [Centrum Silver Men Tablet] 1 each PO DAILY 06/25/18 RX: Nifedipine [Procardia Xl] 30 mg PO DAILY 06/25/18 RX: Silodosin [Rapaflo] 8 mg PO DAILY 06/25/18 RX: Zolpidem Tartrate [Ambien] 5 mg PO HS 06/25/18 RX: Docusate Sodium [Colace -] 100 mg PO TID capsule 08/01/18 RX: Insulin Sliding Scale [Novolog Vial Sliding Scale -] 1 vial SQ ACHS units 08/16/18 RX: Potassium Chloride [K-Dur -] 10 meq PO BID #60 tablet.er 08/16/18 RX: Amox-Tr/K Cl [Augmentin 875-125mg Tablet -] 1 tab PO BID@0800,1730 #14 tablet 09/01/18 RX: Linezolid [Zyvox (Restricted To Id) -] 600 mg PO BID #18 tablet 09/01/18 Family Disease History - Family Disease History Family Disease History: Other: Father (: 45: "heart problem"), Mother ( : 80: COPD), Brother (1, 80's, unclear cause), Son (1, healthy), Daughter ( 1, healthy) Review of Systems - Review of Systems Constitutional: reports: Chills, Fever Eyes: reports: No Symptoms HENT: reports: No Symptoms Neck: reports: No Symptoms Cardiovascular: reports: No Symptoms Respiratory: reports: No Symptoms Gastrointestinal: reports: No Symptoms Genitourinary: reports: Other (urinary retention) Musculoskeletal: reports: No Symptoms Integumentary: reports: No Symptoms Neurological: reports: No Symptoms Endocrine: reports: No Symptoms Hematology/Lymphatic: reports: No Symptoms Psychiatric: reports: No Symptoms Physical Exam Vital Signs: Vital Signs Temperature 98.2 F 09/17/18 12:59 Pulse Rate 96 H 09/17/18 12:59 Respiratory Rate 20 09/17/18 12:59 Blood Pressure 110/75 09/17/18 12:59 O2 Sat by Pulse Oximetry (%) 93 L 09/17/18 12:59 Constitutional: Yes: Calm, Thin Eyes: Yes: Conjunctiva Clear HENT: Yes: Atraumatic, Normocephalic Neck: Yes: Supple, Trachea Midline Cardiovascular: Yes: Regular Rate and Rhythm Respiratory: Yes: Regular, CTA Bilaterally Gastrointestinal: Yes: Normal Bowel Sounds, Soft Renal/: Yes: Galarza Present Musculoskeletal: Yes: WNL Extremities: Yes: WNL Neurological: Yes: Alert, Oriented Psychiatric: Yes: Alert, Oriented Labs: CBC, BMP 09/17/18 06:10 09/17/18 06:10 Imaging - Results Chest X-ray: Report Reviewed, Image Reviewed Cat Scan: Report Reviewed, Image Reviewed Ultrasound: Report Reviewed, Image Reviewed Assessment/Plan i think patient is becoming septic will start patient on iv abx hydration nutrition supportive care rest as per the team Problem List - Problems (1) 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 Code(s): C79.9 - SECONDARY MALIGNANT NEOPLASM OF UNSPECIFIED SITE; C67.9 - MALIGNANT NEOPLASM OF BLADDER, UNSPECIFIED (2) Jaundice Code(s): R17 - UNSPECIFIED JAUNDICE (3) Acute on chronic renal failure Code(s): N17.9 - ACUTE KIDNEY FAILURE, UNSPECIFIED; N18.9 - CHRONIC KIDNEY DISEASE, UNSPECIFIED Qualifiers: Acute renal failure type: unspecified Chronic kidney disease stage: stage 3 (moderate) Qualified Code(s): N17.9 - Acute kidney failure, unspecified; N18.3 - Chronic kidney disease, stage 3 (moderate) (4) Anemia Code(s): D64.9 - ANEMIA, UNSPECIFIED Qualifiers: Anemia type: due to chronic kidney disease Chronic kidney disease stage: stage 3 (moderate) Qualified Code(s): N18.3 - Chronic kidney disease, stage 3 (moderate); D63.1 - Anemia in chronic kidney disease (5) Diarrhea Code(s): R19.7 - DIARRHEA, UNSPECIFIED (6) HLD (hyperlipidemia) Code(s): E78.5 - HYPERLIPIDEMIA, UNSPECIFIED (7) Hypertension Code(s): I10 - ESSENTIAL (PRIMARY) HYPERTENSION Qualifiers: Hypertension type: other secondary hypertension Qualified Code(s): I15.8 - Other secondary hypertension (8) Fever Code(s): R50.9 - FEVER, UNSPECIFIED 9 leukocytosis plan abx iv fluid await for cx report rest as per the team hydration nutrition
[2018-09-17] MEDS: CEFTRIAXONE 1 GM in DEXTROSE 5%-WATER - 50 ML IVPB SCH ×2 (14:44→15:43)
[2018-09-17] MEDS ORDERED: CEFTRIAXONE 1 GM/50 ML BAG ONE (15:24)
--- NOTE | 2018-09-17 17:14 | CONSULT ---
Consult Consult Specialty:: oncology Reason for Consultation:: 78 y/o [facility] and worsening jaundice. Recently discharged from [facility] after drainage of pericardial effusion - History Source History Provided By: Patient - Past Medical History Cardio/Vascular: Yes: HTN, Hyperlipdemia Hepatobiliary: Yes: Cirrhosis (by imaging) Renal/: Yes: Renal Failure, BPH, Cancer, Hematuria Endocrine: Yes: Diabetes Mellitus - Past Surgical History Past Surgical History: Yes: Stent (urinary), TURP - Alcohol/Substance Use Hx Alcohol Use: No History of Substance Use: reports: None - Smoking History Smoking history: Never smoked Have you smoked in the past 12 months: No Aproximately how many cigarettes per day: 0 If you are a former smoker, when did you quit?: 1989 - Social History Usual Living Arrangement: With Spouse ADL: Independent History of Recent Travel: No Home Medications - Allergies Allergies/Adverse Reactions: Allergies Allergy/AdvReac Type Severity Reaction Status Date / Time No Known Allergies Allergy Verified 09/04/18 21:02 - Home Medications Home Medications: Ambulatory Orders Finasteride [Proscar -] 5 mg PO DAILY 06/25/18 Metformin HCl [Glucophage] 1,000 mg PO BID 06/25/18 Metoprolol Succinate [Toprol XL -] 100 mg PO DAILY 06/25/18 Multivit-Min/FA/Lycopen/Lutein [Centrum Silver Men Tablet] 1 each PO DAILY 06/25 Nifedipine [Procardia Xl] 30 mg PO DAILY 06/25/18 Silodosin [Rapaflo] 8 mg PO DAILY 06/25/18 Zolpidem Tartrate [Ambien] 5 mg PO HS 06/25/18 Docusate Sodium [Colace -] 100 mg PO TID capsule 08/01/18 Insulin Sliding Scale [Novolog Vial Sliding Scale -] 1 vial SQ ACHS units 08/16 Potassium Chloride [K-Dur -] 10 meq PO BID #60 tablet.er 08/16/18 Amox-Tr/K Cl [Augmentin 875-125mg Tablet -] 1 tab PO BID@0800,1730 #14 tablet Linezolid [Zyvox (Restricted To Id) -] 600 mg PO BID #18 tablet 09/01/18 Family Disease History - Family Disease History Family Disease History: Other: Father (: 45: "heart problem"), Mother ( : 80: COPD), Brother (1, 80's, unclear cause), Son (1, healthy), Daughter ( 1, healthy) Review of Systems - Review of Systems Constitutional: reports: Chills, Fever Respiratory: reports: No Symptoms Physical Exam Vital Signs: Vital Signs Temperature 101 F H 09/17/18 15:57 Pulse Rate 102 H 09/17/18 15:57 Respiratory Rate 24 H 09/17/18 15:57 Blood Pressure 109/78 09/17/18 15:57 O2 Sat by Pulse Oximetry (%) 94 L 09/17/18 15:57 Constitutional: Yes: No Distress HENT: Yes: WNL Cardiovascular: Yes: WNL, Regular Rate and Rhythm Respiratory: Yes: Regular Gastrointestinal: Yes: Normal Bowel Sounds, Soft Musculoskeletal: Yes: WNL Extremities: Yes: WNL Neurological: Yes: Other (nonfocal) Labs: CBC, BMP 09/17/18 06:10 09/17/18 06:10 Problem List - Problems (1) Bladder cancer Code(s): C67.9 - MALIGNANT NEOPLASM OF BLADDER, UNSPECIFIED Assessment/Plan 78 y/o patient with metastatic bladder cancer s/p gemzar/carboplatin, recurrent urosepsis, wide spread metastatic disease in bone/liver , comes in with fever, worsening jaundice ? sepsis ? tumor fever progressive disease check CT a/p will request palliative care consult
[2018-09-17] MEDS ORDERED: INSULIN (NOVOLOG) ASPART 100 UNITS/ML 10ML VIAL ONE ×4 (17:46→21:16)
--- NOTE | 2018-09-17 18:11 | HP ---
Admitting History and Physical - Past Medical History Cardiovascular: Yes: HTN, Hyperlipdemia Hepatobiliary: Yes: Cirrhosis (by imaging) Renal/: Yes: Renal Failure, BPH, Cancer, Hematuria Heme/Onc: Yes: Anemia (Thalassemia) Endocrine: Yes: Diabetes Mellitus - Past Surgical History Past Surgical History: Yes: Stent (urinary), TURP - Smoking History Smoking history: Never smoked Have you smoked in the past 12 months: No Aproximately how many cigarettes per day: 0 If you are a former smoker, when did you quit?: 1989 - Alcohol/Substance Use Hx Alcohol Use: No History of Substance Use: reports: None - Social History ADL: Independent History of Recent Travel: No Home Medications - Allergies Allergies/Adverse Reactions: Allergies Allergy/AdvReac Type Severity Reaction Status Date / Time No Known Allergies Allergy Verified 09/04/18 21:02 - Home Medications Home Medications: Ambulatory Orders Finasteride [Proscar -] 5 mg PO DAILY 06/25/18 Metformin HCl [Glucophage] 1,000 mg PO BID 06/25/18 Metoprolol Succinate [Toprol XL -] 100 mg PO DAILY 06/25/18 Multivit-Min/FA/Lycopen/Lutein [Centrum Silver Men Tablet] 1 each PO DAILY 06/25 Nifedipine [Procardia Xl] 30 mg PO DAILY 06/25/18 Silodosin [Rapaflo] 8 mg PO DAILY 06/25/18 Zolpidem Tartrate [Ambien] 5 mg PO HS 06/25/18 Docusate Sodium [Colace -] 100 mg PO TID capsule 08/01/18 Insulin Sliding Scale [Novolog Vial Sliding Scale -] 1 vial SQ ACHS units 08/16 Potassium Chloride [K-Dur -] 10 meq PO BID #60 tablet.er 08/16/18 Amox-Tr/K Cl [Augmentin 875-125mg Tablet -] 1 tab PO BID@0800,1730 #14 tablet Linezolid [Zyvox (Restricted To Id) -] 600 mg PO BID #18 tablet 09/01/18 Family Disease History - Family Disease History Family Disease History: Other: Father (: 45: "heart problem"), Mother ( : 80: COPD), Brother (1, 80's, unclear cause), Son (1, healthy), Daughter ( 1, healthy) Physical Examination Vital Signs: Vital Signs Temperature 101 F H 09/17/18 15:57 Pulse Rate 102 H 09/17/18 15:57 Respiratory Rate 24 H 09/17/18 15:57 Blood Pressure 109/78 09/17/18 15:57 O2 Sat by Pulse Oximetry (%) 94 L 09/17/18 15:57 Labs: CBC, BMP 09/17/18 06:10 09/17/18 06:10 Problem List - Problems (1) Fever Code(s): R50.9 - FEVER, UNSPECIFIED (2) Jaundice Code(s): R17 - UNSPECIFIED JAUNDICE (3) Acute on chronic renal failure Code(s): N17.9 - ACUTE KIDNEY FAILURE, UNSPECIFIED; N18.9 - CHRONIC KIDNEY DISEASE, UNSPECIFIED Qualifiers: Acute renal failure type: unspecified Chronic kidney disease stage: stage 3 (moderate) Qualified Code(s): N17.9 - Acute kidney failure, unspecified; N18.3 - Chronic kidney disease, stage 3 (moderate) (4) Anemia Code(s): D64.9 - ANEMIA, UNSPECIFIED Qualifiers: Anemia type: due to chronic kidney disease Chronic kidney disease stage: stage 3 (moderate) Qualified Code(s): N18.3 - Chronic kidney disease, stage 3 (moderate); D63.1 - Anemia in chronic kidney disease (5) Diarrhea Code(s): R19.7 - DIARRHEA, UNSPECIFIED (6) HLD (hyperlipidemia) Code(s): E78.5 - HYPERLIPIDEMIA, UNSPECIFIED (7) Hypertension Code(s): I10 - ESSENTIAL (PRIMARY) HYPERTENSION Qualifiers: Hypertension type: other secondary hypertension Qualified Code(s): I15.8 - Other secondary hypertension (8) 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
[2018-09-17] MEDS ORDERED: POTASSIUM CHLORIDE TABS 10 MEQ TABLET.ER (FP) ONE (21:12)
[2018-09-17] MEDS ORDERED: HEPARIN NA (PORCINE) 5,000 UNITS/ML 1ML VIAL ONE (21:13)
[2018-09-18] MEDS: DEXTROSE 5%-0.45% SALINE 1,000 ML IV SCH (03:52)
[2018-09-18 05:48] LABS: EOS % 0.2 % (0-4.5); HEMOGLOBIN 7.3 GM/dL (11.7-16.9); MCHC 31.2 g/dl (32.0-35.9); RBC 3.31 M/mm3 (4.00-5.60); RDW 28.6 % (11.9-15.9); WHITE BLOOD COUNT 14.4 K/mm3 (4.0-10.0)
[2018-09-18 05:53] LABS: BASO % 0.3 % (0-2.0); HEMATOCRIT 23.5 % (35.4-49); LYMPH % 15.8 % (8-40); MCH 22.1 pg (25.7-33.7); MEAN CELL VOLUME 70.8 fl (80-96); MONO % 4.3 % (3.8-10.2); NEUT % 79.4 % (42.8-82.8); PLATELET COUNT 176 K/MM3 (134-434)
[2018-09-18 06:33] LABS: ALBUMIN 1.5 g/dl (3.4-5.0); ALK PHOS 646 U/L (45-117); ANION GAP 11 MMOL/L (8-16); BILIRUBIN,TOTAL 5.7 mg/dL (0.2-1); BLOOD UREA NITROGEN 16 mg/dL (7-18); CHLORIDE 106 mmol/L (98-107); CO2 18 mmol/L (21-32); CREATININE 0.6 mg/dL (0.55-1.3); GLUCOSE,RANDOM 173 mg/dL (74-106); POTASSIUM 4.2 mmol/L (3.5-5.1); SGOT/AST 39 U/L (15-37); SGPT/ALT 26 U/L (13-61); SODIUM 135 mmol/L (136-145); TOT PROT 5.1 g/dl (6.4-8.2)
[2018-09-18] MEDS: DOCUSATE SODIUM 100 MG CAPSULE (FP) PO SCH ×3 (06:36→22:11)
[2018-09-18] MEDS: INSULIN SLIDING SCALE (NOVOLOG) 1 VIAL SQ SCH ×4 (06:54→22:12)
[2018-09-18] MEDS: SODIUM CHLORIDE 1,000 ML IV SCH ×2 (06:55→17:06)
[2018-09-18 08:08] LABS: ANISOCYTOSIS 3+; TARGET CELLS 1+
[2018-09-18] MEDS: HEPARIN NA (PORCINE) 5,000 UNITS/ML 1ML VIAL SQ SCH ×2 (09:53→22:11)
[2018-09-18] MEDS: NIFEdipine E.R. 30 MG TABLET (FP) PO SCH (09:54)
[2018-09-18] MEDS: FINASTERIDE 5 MG TABLET (FP) PO SCH (09:54)
[2018-09-18] MEDS: POTASSIUM CHLORIDE TABS 10 MEQ TABLET.ER (FP) PO SCH ×2 (09:54→22:11)
[2018-09-18] MEDS: TAMSULOSIN HCL 0.4 MG CAP PO SCH (09:54)
[2018-09-18] MEDS ORDERED: CEFTRIAXONE 1 GM/50 ML BAG ONE (09:57)
[2018-09-18] MEDS: CEFTRIAXONE 1 GM in DEXTROSE 5%-WATER - 50 ML IVPB SCH (09:58)
--- NOTE | 2018-09-18 11:20 | EKG ---
Test Reason : Blood Pressure : / mmHG Vent. Rate : 107 BPM Atrial Rate : 107 BPM P-R Int : 214 ms QRS Dur : 092 ms QT Int : 324 ms P-R-T Axes : 025 -50 039 degrees QTc Int : 432 ms SINUS TACHYCARDIA WITH 1ST DEGREE A-V BLOCK LEFT AXIS DEVIATION INFERIOR INFARCT (CITED ON OR BEFORE 04-SEP-2018) CANNOT RULE OUT ANTERIOR INFARCT , AGE UNDETERMINED ABNORMAL ECG WHEN COMPARED WITH ECG OF 16-SEP-2018 22:16, PREMATURE ATRIAL COMPLEXES ARE NO LONGER PRESENT Confirmed by ESTHER PORTER MD ([id number]) on 09/18/2018 11:20:09 AM Referred By: Confirmed By:ESTHER PORTER MD
--- NOTE | 2018-09-18 11:23 | EKG ---
Test Reason : Blood Pressure : / mmHG Vent. Rate : 106 BPM Atrial Rate : 106 BPM P-R Int : 206 ms QRS Dur : 096 ms QT Int : 354 ms P-R-T Axes : 050 -49 020 degrees QTc Int : 470 ms SINUS TACHYCARDIA WITH PREMATURE ATRIAL COMPLEXES LEFT AXIS DEVIATION INFERIOR INFARCT (CITED ON OR BEFORE 04-SEP-2018) ABNORMAL ECG WHEN COMPARED WITH ECG OF 06-SEP-2018 09:15, NO SIGNIFICANT CHANGE WAS FOUND Confirmed by GERMAN LYNCH, ESTHER ([id number]) on 09/18/2018 11:23:41 AM Referred By: Confirmed By:ESTHER PORTER MD
[2018-09-18] MEDS ORDERED: INSULIN (NOVOLOG) ASPART 100 UNITS/ML 10ML VIAL ONE ×2 (15:20→17:33)
--- NOTE | 2018-09-18 16:08 | PN ---
Progress Note, Physician History of Present Illness: no fevers feels weak - Current Medication List Current Medications: Active Medications Docusate Sodium (Colace -) 100 mg PO TID [facility] Last Admin: 09/18/18 15:17 Dose: Not Given Finasteride (Proscar -) 5 mg PO DAILY [facility] Last Admin: 09/18/18 09:54 Dose: 5 mg Heparin Sodium (Porcine) (Heparin -) 5,000 unit SQ BID [facility] Last Admin: 09/18/18 09:53 Dose: 5,000 unit Dextrose/Sodium Chloride (D5-1/2ns -) 1,000 mls @ 75 mls/hr IV [facility] Last Admin: 09/18/18 03:52 Dose: 75 mls/hr Ceftriaxone Sodium 1 gm/ (Dextrose) 50 mls @ 100 mls/hr IVPB DAILY [facility]; Protocol Last Admin: 09/18/18 09:58 Dose: 100 mls/hr Sodium Chloride (Normal Saline -) 1,000 mls @ 42 mls/hr IV ASDIR [facility] Last Admin: 09/18/18 06:55 Dose: 42 mls/hr Insulin Aspart (Novolog Vial Sliding Scale -) 1 vial SQ ACHS [facility]; Protocol Last Admin: 09/18/18 15:23 Dose: 2 unit Linezolid (Zyvox (Restricted To Id) -) 600 mg PO BID [facility] Metoprolol Succinate (Toprol Xl -) 100 mg PO DAILY [facility] Last Admin: 09/18/18 09:58 Dose: 100 mg Nifedipine (Procardia Xl -) 30 mg PO DAILY [facility] Last Admin: 09/18/18 09:54 Dose: 30 mg Potassium Chloride (K-Dur -) 10 meq PO BID [facility] Last Admin: 09/18/18 09:54 Dose: 10 meq Tamsulosin HCl (Flomax -) 0.4 mg PO DAILY@0830 [facility] Last Admin: 09/18/18 09:54 Dose: 0.4 mg Zolpidem Tartrate (Ambien -) 5 mg PO HS PRN PRN Reason: INSOMNIA - Objective Vital Signs: Vital Signs Temperature 101 F H 09/17/18 15:57 Pulse Rate 92 H 09/18/18 06:52 Respiratory Rate 20 09/18/18 11:57 Blood Pressure 114/87 09/18/18 06:52 O2 Sat by Pulse Oximetry (%) 97 09/18/18 11:57 Constitutional: Yes: No Distress, Calm Cardiovascular: Yes: Regular Rate and Rhythm Respiratory: Yes: Regular, CTA Bilaterally Gastrointestinal: Yes: Normal Bowel Sounds, Soft Genitourinary: Yes: Galarza Present Extremities: Yes: WNL Neurological: Yes: Alert, Oriented Psychiatric: Yes: Alert, Oriented Labs: CBC, BMP 09/18/18 05:10 09/18/18 05:10 Assessment/Plan i think patient is becoming septic will start patient on iv abx hydration nutrition supportive care rest as per the team Problem List - Problems (1) 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 Code(s): C79.9 - SECONDARY MALIGNANT NEOPLASM OF UNSPECIFIED SITE; C67.9 - MALIGNANT NEOPLASM OF BLADDER, UNSPECIFIED (2) Jaundice Code(s): R17 - UNSPECIFIED JAUNDICE (3) Acute on chronic renal failure Code(s): N17.9 - ACUTE KIDNEY FAILURE, UNSPECIFIED; N18.9 - CHRONIC KIDNEY DISEASE, UNSPECIFIED Qualifiers: Acute renal failure type: unspecified Chronic kidney disease stage: stage 3 (moderate) Qualified Code(s): N17.9 - Acute kidney failure, unspecified; N18.3 - Chronic kidney disease, stage 3 (moderate) (4) Anemia Code(s): D64.9 - ANEMIA, UNSPECIFIED Qualifiers: Anemia type: due to chronic kidney disease Chronic kidney disease stage: stage 3 (moderate) Qualified Code(s): N18.3 - Chronic kidney disease, stage 3 (moderate); D63.1 - Anemia in chronic kidney disease (5) Diarrhea Code(s): R19.7 - DIARRHEA, UNSPECIFIED (6) HLD (hyperlipidemia) Code(s): E78.5 - HYPERLIPIDEMIA, UNSPECIFIED (7) Hypertension Code(s): I10 - ESSENTIAL (PRIMARY) HYPERTENSION Qualifiers: Hypertension type: other secondary hypertension Qualified Code(s): I15.8 - Other secondary hypertension (8) Fever Code(s): R50.9 - FEVER, UNSPECIFIED 9 leukocytosis plan abx iv fluid await for cx report rest as per the team hydration nutrition
--- NOTE | 2018-09-18 17:54 | PN ---
Teaching Attending Note Name of Resident: Laura Mcleod ATTENDING PHYSICIAN STATEMENT I saw and evaluated the patient. I reviewed the resident's note and discussed the case with the resident. I agree with the resident's findings and plan as documented. 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 sepsis ? tumor fever progressive disease CT a/p---muktiple liver mets. No biliay tract diatation will request palliative care consult ? immunotherapy if able to come to office Problem List - Problems (1) Bladder cancer Code(s): C67.9 - MALIGNANT NEOPLASM OF BLADDER, UNSPECIFIED
--- NOTE | 2018-09-18 18:12 | PN ---
Progress Note (short form) - Note Progress Note: PROGRESS NOTE FOR HEMATOLOGY/ONCOLOGY Patient seen and examined by me at bedside Patient drowsy and pale Denies any shortness of breath, nausea, vomiting, chest pain, palpitations, abdominal pain, hematuria, dysuria, melena, hematochezia, hematemesis Vital Signs Temperature 97.9 F 09/18/18 17:13 Pulse Rate 90 09/18/18 17:13 Respiratory Rate 20 09/18/18 11:57 Blood Pressure 100/67 09/18/18 17:13 O2 Sat by Pulse Oximetry (%) 93 L 09/18/18 17:13 PHYSICAL EXAMINATION: GENERAL: Thin, Pale, Drowsy, in no acute distress.. EYES: Pupils equal, round and reactive to light (+) scleral icterus ENT: Oropharynx clear without exudates. Moist mucous membranes. LUNGS: Breath sounds equal, clear to auscultation bilaterally. No wheezes, and no crackles. No accessory muscle use. HEART: Tachycardic with regular rhythm, normal S1 and S2 ABDOMEN: Soft, nontender, nondistended, normoactive bowel sounds EXTREMITIES: No peripheral edema. NEUROLOGICAL: Cranial nerves II-XII intact SKIN: Warm, dry, normal turgor, no rashes or lesions noted. Laboratory Tests 09/18/18 05:10 09/18/18 05:10 09/18/18 05:10 Calcium 6.0 L* Total Bilirubin 5.7 H AST 39 H ALT 26 Alkaline Phosphatase 646 H Total Protein 5.1 L Albumin 1.5 L ASSESSMENT AND PLAN: Patient is a 78 year old male with PMHx of Metastatic bladder cancer who was [place]S from [place] for fever and worsening jaundice and found to have recurrent UTI. Problem List: Bladder Cancer with metastatic disease to bone/liver Fever and jaundice- possible sepsis Tumor fever HTN HLD NIDDMII PLAN: -Treat source of infection with IV abx, as per ID -CT A/P revealed metastatic disease with no acute cholecystitis or CBD dilation -Patient has progressive disease and will need palliative care consult
[2018-09-18 20:45] VITALS: BMI 23.4
--- NOTE | 2018-09-18 21:41 | PN ---
Progress Note, Physician - Current Medication List Current Medications: Active Medications Docusate Sodium (Colace -) 100 mg PO TID [facility] Last Admin: 09/18/18 15:17 Dose: Not Given Finasteride (Proscar -) 5 mg PO DAILY [facility] Last Admin: 09/18/18 09:54 Dose: 5 mg Heparin Sodium (Porcine) (Heparin -) 5,000 unit SQ BID [facility] Last Admin: 09/18/18 09:53 Dose: 5,000 unit Dextrose/Sodium Chloride (D5-1/2ns -) 1,000 mls @ 75 mls/hr IV ASDIR [facility] Last Admin: 09/18/18 03:52 Dose: 75 mls/hr Ceftriaxone Sodium 1 gm/ (Dextrose) 50 mls @ 100 mls/hr IVPB DAILY [facility]; Protocol Last Admin: 09/18/18 09:58 Dose: 100 mls/hr Sodium Chloride (Normal Saline -) 1,000 mls @ 42 mls/hr IV ASDIR [facility] Last Admin: 09/18/18 17:06 Dose: 42 mls/hr Insulin Aspart (Novolog Vial Sliding Scale -) 1 vial SQ ACHS [facility]; Protocol Last Admin: 09/18/18 17:35 Dose: 4 unit Linezolid (Zyvox (Restricted To Id) -) 600 mg PO BID [facility] Metoprolol Succinate (Toprol Xl -) 100 mg PO DAILY [facility] Last Admin: 09/18/18 09:58 Dose: 100 mg Nifedipine (Procardia Xl -) 30 mg PO DAILY [facility] Last Admin: 09/18/18 09:54 Dose: 30 mg Potassium Chloride (K-Dur -) 10 meq PO BID [facility] Last Admin: 09/18/18 09:54 Dose: 10 meq Tamsulosin HCl (Flomax -) 0.4 mg PO DAILY@0830 [facility] Last Admin: 09/18/18 09:54 Dose: 0.4 mg Zolpidem Tartrate (Ambien -) 5 mg PO HS PRN PRN Reason: INSOMNIA - Objective Vital Signs: Vital Signs Temperature 97.9 F 09/18/18 20:41 Pulse Rate 86 09/18/18 20:41 Respiratory Rate 18 09/18/18 20:50 Blood Pressure 116/86 09/18/18 20:41 O2 Sat by Pulse Oximetry (%) 95 09/18/18 20:50 Labs: CBC, BMP 09/18/18 05:10 09/18/18 05:10 Problem List - Problems (1) Fever Code(s): R50.9 - FEVER, UNSPECIFIED (2) Jaundice Code(s): R17 - UNSPECIFIED JAUNDICE (3) Acute on chronic renal failure Code(s): N17.9 - ACUTE KIDNEY FAILURE, UNSPECIFIED; N18.9 - CHRONIC KIDNEY DISEASE, UNSPECIFIED Qualifiers: Acute renal failure type: unspecified Chronic kidney disease stage: stage 3 (moderate) Qualified Code(s): N17.9 - Acute kidney failure, unspecified; N18.3 - Chronic kidney disease, stage 3 (moderate) (4) Anemia Code(s): D64.9 - ANEMIA, UNSPECIFIED Qualifiers: Anemia type: due to chronic kidney disease Chronic kidney disease stage: stage 3 (moderate) Qualified Code(s): N18.3 - Chronic kidney disease, stage 3 (moderate); D63.1 - Anemia in chronic kidney disease (5) Diarrhea Code(s): R19.7 - DIARRHEA, UNSPECIFIED (6) HLD (hyperlipidemia) Code(s): E78.5 - HYPERLIPIDEMIA, UNSPECIFIED (7) Hypertension Code(s): I10 - ESSENTIAL (PRIMARY) HYPERTENSION Qualifiers: Hypertension type: other secondary hypertension Qualified Code(s): I15.8 - Other secondary hypertension (8) 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
[2018-09-18] MEDS: ZOLPIDEM TARTRATE 5 MG TABLET PO PRN (22:15)
[2018-09-19] MEDS: DOCUSATE SODIUM 100 MG CAPSULE (FP) PO SCH ×3 (06:17→22:16)
[2018-09-19] MEDS: INSULIN SLIDING SCALE (NOVOLOG) 1 VIAL SQ SCH ×4 (06:18→22:17)
[2018-09-19] MEDS: DEXTROSE 5%-0.45% SALINE 1,000 ML IV SCH (09:25)
[2018-09-19] MEDS ORDERED: DEXTROSE 5%-WATER - 50 ML IVPB ONE (09:28)
[2018-09-19] MEDS ORDERED: cefTRIAXone SODIUM 1 GM VIAL ONE (09:28)
[2018-09-19] MEDS: TAMSULOSIN HCL 0.4 MG CAP PO SCH (09:41)
[2018-09-19] MEDS: FINASTERIDE 5 MG TABLET (FP) PO SCH (09:44)
[2018-09-19] MEDS: NIFEdipine E.R. 30 MG TABLET (FP) PO SCH (09:44)
[2018-09-19] MEDS: CEFTRIAXONE 1 GM in DEXTROSE 5%-WATER - 50 ML IVPB SCH (09:44)
[2018-09-19] MEDS: POTASSIUM CHLORIDE TABS 10 MEQ TABLET.ER (FP) PO SCH ×2 (09:44→22:16)
[2018-09-19] MEDS: HEPARIN NA (PORCINE) 5,000 UNITS/ML 1ML VIAL SQ SCH ×2 (09:44→22:16)
[2018-09-19] MEDS: SODIUM CHLORIDE 1,000 ML IV SCH (09:45)
--- NOTE | 2018-09-19 13:16 | PN ---
Progress Note, Physician History of Present Illness: no fevers feels weak says he wants to come out of bed but weak - Current Medication List Current Medications: Active Medications Docusate Sodium (Colace -) 100 mg PO TID [facility] Last Admin: 09/19/18 06:17 Dose: Not Given Finasteride (Proscar -) 5 mg PO DAILY [facility] Last Admin: 09/19/18 09:44 Dose: 5 mg Fluconazole (Diflucan -) 100 mg PO DAILY [facility] Heparin Sodium (Porcine) (Heparin -) 5,000 unit SQ BID LIT Last Admin: 09/19/18 09:44 Dose: 5,000 unit Dextrose/Sodium Chloride (D5-1/2ns -) 1,000 mls @ 75 mls/hr IV ASDIR [facility] Last Admin: 09/19/18 09:25 Dose: Not Given Ceftriaxone Sodium 1 gm/ (Dextrose) 50 mls @ 100 mls/hr IVPB DAILY [facility]; Protocol Last Admin: 09/19/18 09:44 Dose: 100 mls/hr Sodium Chloride (Normal Saline -) 1,000 mls @ 42 mls/hr IV ASDIR [facility] Last Admin: 09/19/18 09:45 Dose: 42 mls/hr Insulin Aspart (Novolog Vial Sliding Scale -) 1 vial SQ ACHS [facility]; Protocol Last Admin: 09/19/18 11:56 Dose: 2 unit Linezolid (Zyvox (Restricted To Id) -) 600 mg PO BID [facility] Metoprolol Succinate (Toprol Xl -) 100 mg PO DAILY [facility] Last Admin: 09/19/18 09:44 Dose: 100 mg Nifedipine (Procardia Xl -) 30 mg PO DAILY [facility] Last Admin: 09/19/18 09:44 Dose: 30 mg Potassium Chloride (K-Dur -) 10 meq PO BID [facility] Last Admin: 09/19/18 09:44 Dose: 10 meq Tamsulosin HCl (Flomax -) 0.4 mg PO DAILY@0830 [facility] Last Admin: 09/19/18 09:41 Dose: 0.4 mg Zolpidem Tartrate (Ambien -) 5 mg PO HS PRN PRN Reason: INSOMNIA Last Admin: 09/18/18 22:15 Dose: 5 mg - Objective Vital Signs: Vital Signs Temperature 97.4 F L 09/19/18 09:00 Pulse Rate 91 H 09/19/18 09:00 Respiratory Rate 20 09/19/18 09:00 Blood Pressure 123/86 09/19/18 09:00 O2 Sat by Pulse Oximetry (%) 96 09/19/18 09:00 Constitutional: Yes: Calm, Other Neck: Yes: Supple Cardiovascular: Yes: Regular Rate and Rhythm Respiratory: Yes: Regular, CTA Bilaterally Gastrointestinal: Yes: Normal Bowel Sounds, Soft Genitourinary: Yes: [place] Present Musculoskeletal: Yes: WNL Extremities: Yes: WNL Neurological: Yes: Alert, Oriented Psychiatric: Yes: Alert Labs: CBC, BMP 09/18/18 05:10 09/18/18 05:10 Assessment/Plan i think patient is becoming septic will start patient on iv abx hydration nutrition supportive care rest as per the team Problem List - Problems (1) 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 Code(s): C79.9 - SECONDARY MALIGNANT NEOPLASM OF UNSPECIFIED SITE; C67.9 - MALIGNANT NEOPLASM OF BLADDER, UNSPECIFIED (2) Jaundice Code(s): R17 - UNSPECIFIED JAUNDICE (3) Acute on chronic renal failure Code(s): N17.9 - ACUTE KIDNEY FAILURE, UNSPECIFIED; N18.9 - CHRONIC KIDNEY DISEASE, UNSPECIFIED Qualifiers: Acute renal failure type: unspecified Chronic kidney disease stage: stage 3 (moderate) Qualified Code(s): N17.9 - Acute kidney failure, unspecified; N18.3 - Chronic kidney disease, stage 3 (moderate) (4) Anemia Code(s): D64.9 - ANEMIA, UNSPECIFIED Qualifiers: Anemia type: due to chronic kidney disease Chronic kidney disease stage: stage 3 (moderate) Qualified Code(s): N18.3 - Chronic kidney disease, stage 3 (moderate); D63.1 - Anemia in chronic kidney disease (5) Diarrhea Code(s): R19.7 - DIARRHEA, UNSPECIFIED (6) HLD (hyperlipidemia) Code(s): E78.5 - HYPERLIPIDEMIA, UNSPECIFIED (7) Hypertension Code(s): I10 - ESSENTIAL (PRIMARY) HYPERTENSION Qualifiers: Hypertension type: other secondary hypertension Qualified Code(s): I15.8 - Other secondary hypertension (8) Fever Code(s): R50.9 - FEVER, UNSPECIFIED 9 leukocytosis plan stop abx will start antifungal cx report noted rest as per the team hydration nutrition
[2018-09-19] MEDS: FLUCONAZOLE 100 MG TABLET (UD) PO SCH (14:41)
--- NOTE | 2018-09-19 17:41 | CON.GI ---
Consult - History of Present Illness History of Present Illness: Asked to see patient for elevated bilirubin associated with metastatic liver lesions. &8 y/o male with metastatic liver disease was admitted because of jaundice. He has mild burning epigastriic pain but denies nausea,vomiting. He is being evaluated for further chemotherapy. - Past Medical History Cardio/Vascular: Yes: HTN, Hyperlipdemia Hepatobiliary: Yes: Cirrhosis (by imaging) Renal/: Yes: Renal Failure, BPH, Cancer, Hematuria Endocrine: Yes: Diabetes Mellitus - Past Surgical History Past Surgical History: Yes: Stent (urinary), TURP - Alcohol/Substance Use Hx Alcohol Use: No History of Substance Use: reports: None - Smoking History Smoking history: Former smoker Have you smoked in the past 12 months: No Aproximately how many cigarettes per day: 0 If you are a former smoker, when did you quit?: 1989 - Social History Usual Living Arrangement: With Spouse ADL: Independent History of Recent Travel: No Home Medications - Allergies Allergies/Adverse Reactions: Allergies Allergy/AdvReac Type Severity Reaction Status Date / Time No Known Allergies Allergy Verified 09/04/18 21:02 - Home Medications Home Medications: Ambulatory Orders Finasteride [Proscar -] 5 mg PO DAILY 06/25/18 Metformin HCl [Glucophage] 1,000 mg PO BID 06/25/18 Metoprolol Succinate [Toprol XL -] 100 mg PO DAILY 06/25/18 Multivit-Min/FA/Lycopen/Lutein [Centrum Silver Men Tablet] 1 each PO DAILY 06/25 Nifedipine [Procardia Xl] 30 mg PO DAILY 06/25/18 Silodosin [Rapaflo] 8 mg PO DAILY 06/25/18 Zolpidem Tartrate [Ambien] 5 mg PO HS 06/25/18 Docusate Sodium [Colace -] 100 mg PO TID capsule 08/01/18 Insulin Sliding Scale [Novolog Vial Sliding Scale -] 1 vial SQ ACHS units 08/16 Potassium Chloride [K-Dur -] 10 meq PO BID #60 tablet.er 08/16/18 Amox-Tr/K Cl [Augmentin 875-125mg Tablet -] 1 tab PO BID@0800,1730 #14 tablet Linezolid [Zyvox (Restricted To Id) -] 600 mg PO BID #18 tablet 09/01/18 Family Disease History - Family Disease History Family Disease History: Other: Father (: 45: "heart problem"), Mother ( : 80: COPD), Brother (1, 80's, unclear cause), Son (1, healthy), Daughter ( 1, healthy) Physical Exam-GI Vital Signs: Vital Signs Temperature 97.7 F 09/19/18 15:03 Pulse Rate 91 H 09/19/18 15:03 Respiratory Rate 20 09/19/18 15:03 Blood Pressure 100/54 L 09/19/18 15:03 O2 Sat by Pulse Oximetry (%) 96 09/19/18 09:00 Constitutional: Yes: No Distress Eyes: Yes: Sclera Icterus HENT: Yes: Atraumatic Neck: Yes: Supple Cardiovascular: Yes: Regular Rate and Rhythm Respiratory: Yes: CTA Bilaterally Gastrointestinal Inspection: Yes: Ascites (--mild) ...Palpate: Yes: Soft. No: Firm/Rigid, Guarding, Hepatomegaly, Pulsatile Mass, Splenomegaly, Tenderness, Tenderness, Epigastium Labs: CBC, BMP 09/18/18 05:10 09/18/18 05:10 Hepatic Panel Total Bilirubin 5.7 mg/dL (0.2-1) H 09/18/18 05:10 AST 39 U/L (15-37) H 09/18/18 05:10 ALT 26 U/L (13-61) 09/18/18 05:10 Alkaline Phosphatase 646 U/L (45-117) H 09/18/18 05:10 Albumin 1.5 g/dl (3.4-5.0) L 09/18/18 05:10 Home Medications Medication Instructions Recorded Finasteride [Proscar -] 5 mg PO DAILY 06/25/18 Metformin HCl [Glucophage] 1,000 mg PO BID 06/25/18 Metoprolol Succinate [Toprol XL -] 100 mg PO DAILY 06/25/18 Multivit-Min/FA/Lycopen/Lutein 1 each PO DAILY 06/25/18 [Centrum Silver Men Tablet] Nifedipine [Procardia Xl] 30 mg PO DAILY 06/25/18 Silodosin [Rapaflo] 8 mg PO DAILY 06/25/18 Zolpidem Tartrate [Ambien] 5 mg PO HS 06/25/18 Docusate Sodium [Colace -] 100 mg PO TID capsule 08/01/18 Insulin Sliding Scale [Novolog 1 vial SQ ACHS units 08/16/18 Vial Sliding Scale -] Potassium Chloride [K-Dur -] 10 meq PO BID #60 tablet.er 08/16/18 Amox-Tr/K Cl [Augmentin 875-125mg 1 tab PO BID@0800,1730 #14 tablet 09/01/18 Tablet -] Linezolid [Zyvox (Restricted To 600 mg PO BID #18 tablet 09/01/18 Id) -] Active Medications Generic Name Dose Route Start Last Admin Trade Name Freq PRN Reason Stop Dose Admin Al Hydroxide/Mg Hydroxide 30 ml 09/19/18 18:00 Mylanta Oral Suspension - PO Q6H PRN DYSPEPSIA Docusate Sodium 100 mg 09/17/18 06:00 09/19/18 13:23 Colace - PO Not Given TID LIT Finasteride 5 mg 09/17/18 10:00 09/19/18 09:44 Proscar - PO 5 mg DAILY LIT Administration Fluconazole 100 mg 09/19/18 13:45 09/19/18 14:41 Diflucan - PO 100 mg DAILY LIT Administration Heparin Sodium (Porcine) 5,000 unit 09/17/18 10:00 09/19/18 09:44 Heparin - SQ 5,000 unit BID LIT Administration Dextrose/Sodium Chloride 1,000 mls @ 75 mls/hr 09/17/18 03:15 09/19/18 09:25 D5-1/2ns - IV Not Given ASDIR LIT Sodium Chloride 1,000 mls @ 42 mls/hr 09/18/18 07:00 09/19/18 09:45 Normal Saline - IV 42 mls/hr ASDIR LIT Administration Insulin Aspart 1 vial 09/17/18 07:00 09/19/18 17:56 Novolog Vial Sliding Scale - SQ 2 unit ACHS LIT Administration Protocol Metoprolol Succinate 100 mg 09/17/18 10:00 09/19/18 09:44 Toprol Xl - PO 100 mg DAILY LIT Administration Nifedipine 30 mg 09/17/18 10:00 09/19/18 09:44 Procardia Xl - PO 30 mg DAILY LIT Administration Potassium Chloride 10 meq 09/17/18 10:00 09/19/18 09:44 K-Dur - PO 10 meq BID LIT Administration Tamsulosin HCl 0.4 mg 09/17/18 08:30 09/19/18 09:41 Flomax - PO 0.4 mg DAILY@0830 LIT Administration Zolpidem Tartrate 5 mg 09/17/18 22:00 09/18/18 22:15 Ambien - PO 5 mg HS PRN Administration INSOMNIA Problem List - Problems (1) Cholestatic jaundice Assessment/Plan: multifactorial including secondary to medication and metastatic liver disease R>consider to d/ Diflucan observe off proscar and Tamsulosin Code(s): R17 - UNSPECIFIED JAUNDICE
[2018-09-19] MEDS: LINEZOLID 600 MG TABLET (RESTRICTED TO ID) PO SCH (17:54)
--- NOTE | 2018-09-19 18:58 | PN ---
Progress Note (short form) - Note Progress Note: Patient seen and examined Dyspneic and tachyneic Complains of sub xiphoid pains Last Vital Signs Temp Pulse Resp BP Pulse Ox 97.7 F 91 H 20 100/54 L 96 09/19/18 15:03 09/19/18 15:03 09/19/18 15:03 09/19/18 15:03 09/19/18 09:00 HEENT: FLETCHER, EOM Intact Oropharynx: No thrush, No mucositis CBC, BMP 09/18/18 05:10 09/18/18 05:10 Current Medications Generic Name Dose Route Start Last Admin Trade Name Freq PRN Reason Stop Dose Admin Al Hydroxide/Mg Hydroxide 30 ml 09/19/18 18:00 Mylanta Oral Suspension - PO Q6H PRN DYSPEPSIA Docusate Sodium 100 mg 09/17/18 06:00 09/19/18 13:23 Colace - PO Not Given TID LIT Fluconazole 100 mg 09/19/18 13:45 09/19/18 14:41 Diflucan - PO 100 mg DAILY LIT Administration Heparin Sodium (Porcine) 5,000 unit 09/17/18 10:00 09/19/18 09:44 Heparin - SQ 5,000 unit BID LIT Administration Dextrose/Sodium Chloride 1,000 mls @ 75 mls/hr 09/17/18 03:15 09/19/18 09:25 D5-1/2ns - IV Not Given ASDIR LIT Sodium Chloride 1,000 mls @ 42 mls/hr 09/18/18 07:00 09/19/18 09:45 Normal Saline - IV 42 mls/hr ASDIR LIT Administration Insulin Aspart 1 vial 09/17/18 07:00 09/19/18 17:56 Novolog Vial Sliding Scale - SQ 2 unit ACHS LIT Administration Protocol Metoprolol Succinate 100 mg 09/17/18 10:00 09/19/18 09:44 Toprol Xl - PO 100 mg DAILY LIT Administration Nifedipine 30 mg 09/17/18 10:00 09/19/18 09:44 Procardia Xl - PO 30 mg DAILY LIT Administration Potassium Chloride 10 meq 09/17/18 10:00 09/19/18 09:44 K-Dur - PO 10 meq BID LIT Administration Zolpidem Tartrate 5 mg 09/17/18 22:00 09/18/18 22:15 Ambien - PO 5 mg HS PRN Administration INSOMNIA Cor: RSR, No murmurs, No gallops Lungs: Clear to P&A Abd: Soft, Normal bowel sounds, No organomegaly Ext:No significant edema Skin: No rashes, Integument intact Impression: Dyspneic /tachypneic Subxiphoid pain Bladder ca Mets Chest X-ray EKG Troponin CBC Cardiac profile try carafate
[2018-09-19] MEDS: SUCRALFATE 1 GM/10 ML UNIT DOSE CUPS PO SCH ×2 (19:07→22:55)
[2018-09-19 21:15] LABS: BASO % 0.2 % (0-2.0); EOS % 0.1 % (0-4.5); HEMATOCRIT 22.8 % (35.4-49); HEMOGLOBIN 7.5 GM/dL (11.7-16.9); LYMPH % 10.5 % (8-40); MCH 23.4 pg (25.7-33.7); MEAN PLT VOLUME 10.3 fl (7.5-11.1); MONO % 2.8 % (3.8-10.2); NEUT % 86.4 % (42.8-82.8); PLATELET COUNT 297 K/MM3 (134-434); RBC 3.21 M/mm3 (4.00-5.60); RDW 28.8 % (11.9-15.9)
[2018-09-19] MEDS: MAG HYDROX/AL HYDROX/SIMETH 30 ML UNIT-DOSE CUP PO PRN (21:19)
[2018-09-19 21:36] LABS: PHOSPHOROUS 2.2 mg/dL (2.5-4.9)
[2018-09-19 21:37] LABS: MAGNESIUM 1.8 mg/dL (1.8-2.4)
[2018-09-19 21:40] LABS: ALBUMIN 1.6 g/dl (3.4-5.0); ALK PHOS 926 U/L (45-117); ANION GAP 14 MMOL/L (8-16); BILIRUBIN,TOTAL 5.6 mg/dL (0.2-1); BLOOD UREA NITROGEN 18 mg/dL (7-18); CHLORIDE 108 mmol/L (98-107); CO2 15 mmol/L (21-32); CREATININE 0.6 mg/dL (0.55-1.3); GLUCOSE,RANDOM 197 mg/dL (74-106); POTASSIUM 4.8 mmol/L (3.5-5.1); SGOT/AST 70 U/L (15-37); SGPT/ALT 26 U/L (13-61); SODIUM 136 mmol/L (136-145); TOT PROT 5.4 g/dl (6.4-8.2)
[2018-09-19 21:42] LABS: CALCIUM 6.1 mg/dL (8.5-10.1)
[2018-09-19 22:16] LABS: ANISOCYTOSIS 3+; PLATELET ESTIMATE ADEQUATE; TARGET CELLS 1+
[2018-09-19] MEDS: ZOLPIDEM TARTRATE 5 MG TABLET PO PRN (22:16)
--- NOTE | 2018-09-19 22:31 | PN ---
Progress Note, Physician - Current Medication List Current Medications: Active Medications Al Hydroxide/Mg Hydroxide (Mylanta Oral Suspension -) 30 ml PO Q6H PRN PRN Reason: DYSPEPSIA Last Admin: 09/19/18 21:19 Dose: 30 ml Docusate Sodium (Colace -) 100 mg PO TID [facility] Last Admin: 09/19/18 22:16 Dose: 100 mg Fluconazole (Diflucan -) 100 mg PO DAILY [facility] Last Admin: 09/19/18 14:41 Dose: 100 mg Heparin Sodium (Porcine) (Heparin -) 5,000 unit SQ BID [facility] Last Admin: 09/19/18 22:16 Dose: 5,000 unit Dextrose/Sodium Chloride (D5-1/2ns -) 1,000 mls @ 75 mls/hr IV ASDIR [facility] Last Admin: 09/19/18 09:25 Dose: Not Given Sodium Chloride (Normal Saline -) 1,000 mls @ 42 mls/hr IV ASDIR [facility] Last Admin: 09/19/18 09:45 Dose: 42 mls/hr Insulin Aspart (Novolog Vial Sliding Scale -) 1 vial SQ ACHS [facility]; Protocol Last Admin: 09/19/18 22:17 Dose: 2 unit Metoprolol Succinate (Toprol Xl -) 100 mg PO DAILY [facility] Last Admin: 09/19/18 09:44 Dose: 100 mg Nifedipine (Procardia Xl -) 30 mg PO DAILY [facility] Last Admin: 09/19/18 09:44 Dose: 30 mg Potassium Chloride (K-Dur -) 10 meq PO BID [facility] Last Admin: 09/19/18 22:16 Dose: 10 meq Sucralfate (Carafate Oral Suspension -) 1 gm PO QID [facility] Last Admin: 09/19/18 19:07 Dose: 1 gm Zolpidem Tartrate (Ambien -) 5 mg PO HS PRN PRN Reason: INSOMNIA Last Admin: 09/19/18 22:16 Dose: 5 mg - Objective Vital Signs: Vital Signs Temperature 97.7 F 09/19/18 15:03 Pulse Rate 91 H 09/19/18 15:03 Respiratory Rate 20 09/19/18 15:03 Blood Pressure 100/54 L 09/19/18 15:03 O2 Sat by Pulse Oximetry (%) 93 L 09/19/18 20:00 Labs: CBC, BMP 09/19/18 20:00 09/19/18 20:00 Problem List - Problems (1) Fever Code(s): R50.9 - FEVER, UNSPECIFIED (2) Jaundice Code(s): R17 - UNSPECIFIED JAUNDICE (3) Acute on chronic renal failure Code(s): N17.9 - ACUTE KIDNEY FAILURE, UNSPECIFIED; N18.9 - CHRONIC KIDNEY DISEASE, UNSPECIFIED Qualifiers: Acute renal failure type: unspecified Chronic kidney disease stage: stage 3 (moderate) Qualified Code(s): N17.9 - Acute kidney failure, unspecified; N18.3 - Chronic kidney disease, stage 3 (moderate) (4) Anemia Code(s): D64.9 - ANEMIA, UNSPECIFIED Qualifiers: Anemia type: due to chronic kidney disease Chronic kidney disease stage: stage 3 (moderate) Qualified Code(s): N18.3 - Chronic kidney disease, stage 3 (moderate); D63.1 - Anemia in chronic kidney disease (5) Diarrhea Code(s): R19.7 - DIARRHEA, UNSPECIFIED (6) HLD (hyperlipidemia) Code(s): E78.5 - HYPERLIPIDEMIA, UNSPECIFIED (7) Hypertension Code(s): I10 - ESSENTIAL (PRIMARY) HYPERTENSION Qualifiers: Hypertension type: other secondary hypertension Qualified Code(s): I15.8 - Other secondary hypertension (8) 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
[2018-09-20] MEDS: DEXTROSE 5%-0.45% SALINE 1,000 ML IV SCH (02:27)
[2018-09-20] MEDS: DOCUSATE SODIUM 100 MG CAPSULE (FP) PO SCH ×3 (06:03→21:51)
[2018-09-20] MEDS: INSULIN SLIDING SCALE (NOVOLOG) 1 VIAL SQ SCH ×4 (06:04→22:07)
[2018-09-20] MEDS: SODIUM CHLORIDE 1,000 ML IV SCH (06:18)
[2018-09-20 07:24] LABS: BASO % 0.2 % (0-2.0); HEMATOCRIT 22.3 % (35.4-49); LYMPH % 4.6 % (8-40); MCH 21.7 pg (25.7-33.7); MCHC 30.4 g/dl (32.0-35.9); MEAN CELL VOLUME 71.4 fl (80-96); MEAN PLT VOLUME 9.7 fl (7.5-11.1); MONO % 2.1 % (3.8-10.2); NEUT % 93.1 % (42.8-82.8); PLATELET COUNT 248 K/MM3 (134-434); RBC 3.12 M/mm3 (4.00-5.60); RDW 28.3 % (11.9-15.9)
[2018-09-20 08:19] LABS: ALBUMIN 1.6 g/dl (3.4-5.0); ALK PHOS 889 U/L (45-117); ANION GAP 14 MMOL/L (8-16); BILIRUBIN,TOTAL 6.3 mg/dL (0.2-1); BLOOD UREA NITROGEN 20 mg/dL (7-18); CHLORIDE 109 mmol/L (98-107); CO2 15 mmol/L (21-32); CREATININE 0.7 mg/dL (0.55-1.3); GLUCOSE,RANDOM 98 mg/dL (74-106); MAGNESIUM 1.8 mg/dL (1.8-2.4); PHOSPHOROUS 2.5 mg/dL (2.5-4.9); POTASSIUM 4.9 mmol/L (3.5-5.1); SGOT/AST 122 U/L (15-37); SGPT/ALT 30 U/L (13-61); SODIUM 138 mmol/L (136-145); TOT PROT 5.4 g/dl (6.4-8.2)
[2018-09-20 08:27] LABS: HEMOGLOBIN 6.8 GM/dL (11.7-16.9); WHITE BLOOD COUNT 38.5 K/mm3 (4.0-10.0)
[2018-09-20 08:28] LABS: INR 1.89 (0.83-1.09); PROTHROMBIN TIME (PATIENT) 22.4 SEC (9.7-13.0)
[2018-09-20] MEDS ORDERED: SODIUM CHLORIDE 1,000 ML IV SCH (08:29)
[2018-09-20 08:30] LABS: ACTIVATED PTT 36.4 SECONDS (25.2-36.5)
[2018-09-20 08:38] LABS: CALCIUM 6.1 mg/dL (8.5-10.1)
[2018-09-20] MEDS: LINEZOLID 600 MG TABLET (RESTRICTED TO ID) PO SCH ×2 (08:49→08:50)
[2018-09-20 08:52] LABS: ARTERIAL BLD GAS O2 SATURATION 88.5 % (90-98.9); ARTERIAL BLOOD GAS BASE EXCESS -6.6 meq/l (-2-2); ARTERIAL BLOOD GAS PCO2 22.7 mmHg (35-45); ARTERIAL BLOOD GAS PO2 58.3 mmHg (70-100); ARTERIAL BLOOD GAS pH 7.47 (7.35-7.45)
--- NOTE | 2018-09-20 08:52 | PN ---
Progress Note, Physician Chief Complaint: Known to me from recent admission Met. Cancer, found to have moderate pericardial effusion Transferred to [facility] just [facility], had pericardiocentesis-- 80ccs removed. Benign cytology Found to have UTI there Now readmitted with fever, marked anemia, jaundice Had an episode of chest pain yest after drinking cold water that subsided with antacids Was also noted to be SOB. This AM no chest pain. Feels mildly SOB, no cough TnI negative x 2 ECG with NSR 1st degree AV block, Left axis. No acute ST changes - Current Medication List Current Medications: Active Medications Al Hydroxide/Mg Hydroxide (Mylanta Oral Suspension -) 30 ml PO Q6H PRN PRN Reason: DYSPEPSIA Last Admin: 09/19/18 21:19 Dose: 30 ml Albuterol/Ipratropium (Duoneb -) 1 amp NEB Q6H PRN PRN Reason: SHORTNESS OF BREATH Docusate Sodium (Colace -) 100 mg PO TID [facility] Last Admin: 09/20/18 06:03 Dose: Not Given Fluconazole (Diflucan -) 100 mg PO DAILY [facility] Last Admin: 09/19/18 14:41 Dose: 100 mg Heparin Sodium (Porcine) (Heparin -) 5,000 unit SQ BID [facility] Last Admin: 09/19/18 22:16 Dose: 5,000 unit Dextrose/Sodium Chloride (D5-1/2ns -) 1,000 mls @ 75 mls/hr IV ASDIR [facility] Last Admin: 09/20/18 02:27 Dose: Not Given Sodium Chloride (Normal Saline -) 1,000 mls @ 100 mls/hr IV ASDIR [facility] Insulin Aspart (Novolog Vial Sliding Scale -) 1 vial SQ ACHS [facility]; Protocol Last Admin: 09/20/18 06:04 Dose: Not Given Metoprolol Succinate (Toprol Xl -) 100 mg PO DAILY [facility] Last Admin: 09/19/18 09:44 Dose: 100 mg Nifedipine (Procardia Xl -) 30 mg PO DAILY [facility] Last Admin: 09/19/18 09:44 Dose: 30 mg Potassium Chloride (K-Dur -) 10 meq PO BID [facility] Last Admin: 09/19/18 22:16 Dose: 10 meq Sucralfate (Carafate Oral Suspension -) 1 gm PO QID [facility] Last Admin: 09/19/18 22:55 Dose: Not Given Zolpidem Tartrate (Ambien -) 5 mg PO HS PRN PRN Reason: INSOMNIA Last Admin: 09/19/18 22:16 Dose: 5 mg - Objective Vital Signs: Vital Signs Temperature 98.2 F 09/20/18 06:55 Pulse Rate 111 H 09/20/18 06:55 Respiratory Rate 20 09/20/18 06:55 Blood Pressure 100/61 09/20/18 06:55 O2 Sat by Pulse Oximetry (%) 92 L 09/19/18 21:00 Constitutional: Yes: No Distress Cardiovascular: Yes: Regular Rate and Rhythm Respiratory: Yes: Rhonchi Gastrointestinal: Yes: Soft (NT) Neurological: Yes: Alert, Oriented Labs: CBC, BMP 09/20/18 05:50 09/20/18 05:50 INR, PTT INR 1.89 (0.83-1.09) H 09/20/18 05:50 Assessment/Plan IMP: Metastatic bladder cancer Recent pericardial effusion- benign Anemia Jaundice Atypical Chest pain REC: 1. Repeat echo to assess pericardial effusion 2. Transfuse 2 U PRBCs 3. Consider CTA to rule out pulmonary embolism
[2018-09-20 08:56] LABS: ALLENS TEST POSITIVE
--- NOTE | 2018-09-20 09:32 | PN ---
Physical Exam: SUBJECTIVE: Patient seen and examined; no new complaints. WBC elevated this AM to 30-range. moved to [place] last night as the patient disclosed to heme onc team that he was having chest pain. No issues on tele. CV consult placed; STAT echo pending to r/o pericardial effusion (reqired xf last time he was here for this issue). Also checking for PE. He is hemodynamically stable now. He agrees he is weak and slightly SOB. He tells me that his CP reminded him of indigestion but will still have a low threshold for further workup. 10 sys ROS done and negative aside from HPI OBJECTIVE: Vital Signs Period Temp Pulse Resp BP Sys/Benjamin Pulse Ox Last 24 Hr 97.6 F-98.2 F 91-111 20-28 97-106/54-76 92-93 GENERAL: The patient is awake, alert, and fully oriented, in no acute distress. Slightly dry appearing HEAD: Normal with no signs of trauma. EYES: PERRL, extraocular movements intact, sclera anicteric, conjunctiva clear. No ptosis. ENT: Ears normal, nares patent, oropharynx clear without exudate NECK: Trachea midline, full range of motion, supple. LUNGS: Breath sounds equal, clear to auscultation bilaterally, sym exp HEART: Regular rate and rhythm, S1, S2 without murmur, rub or gallop. ABDOMEN: Soft, generalized tender, nondistended, normoactive bowel sounds EXTREMITIES: 2+ pulses, warm, well-perfused, no edema. NEUROLOGICAL: Cranial nerves II through XII grossly intact. Normal speech, no fnd PSYCH: Normal mood, normal affect. SKIN: Warm, dry, normal turgor, no rashes or lesions noted Laboratory Results - last 24 hr 09/19/18 09/19/18 09/19/18 11:53 16:59 20:00 WBC 22.0 H RBC 3.21 L Hgb 7.5 L Hct 22.8 L MCV 71.0 L MCH 23.4 L MCHC 33.0 RDW 28.8 H Plt Count 297 D MPV 10.3 D Absolute Neuts (auto) 19.0 H Total Counted 100 Neutrophils % 86.4 H Neutrophils % (Manual) 87.0 H Band Neutrophils % 2.0 Lymphocytes % 10.5 D Lymphocytes % (Manual) 6.0 L D Monocytes % 2.8 L Monocytes % (Manual) 5 Eosinophils % 0.1 Basophils % 0.2 Nucleated RBC % 0 Hypochromia 1+ Platelet Estimate Adequate Platelet Comment No clumping noted Polychromasia 1+ Basophilic Stippling 1+ Anisocytosis 3+ Microcytosis 2+ Target Cells 1+ PT with INR INR PTT (Actin FS) Puncture Site ABG pH ABG pCO2 at Pt Temp ABG pO2 at Pt Temp ABG HCO3 ABG O2 Sat (Measured) ABG O2 Content ABG Base Excess Emil Test O2 Delivery Device Oxygen Flow Rate Mechanical Rate PEEP Sodium Potassium Chloride Carbon Dioxide Anion Gap BUN Creatinine Creat Clearance w eGFR POC Glucometer 197 181 Random Glucose Calcium Phosphorus Magnesium Total Bilirubin AST ALT Alkaline Phosphatase Creatine Kinase Troponin I Total Protein Albumin 09/19/18 09/19/18 09/19/18 20:00 20:40 22:13 WBC RBC Hgb Hct MCV MCH MCHC RDW Plt Count MPV Absolute Neuts (auto) Total Counted Neutrophils % Neutrophils % (Manual) Band Neutrophils % Lymphocytes % Lymphocytes % (Manual) Monocytes % Monocytes % (Manual) Eosinophils % Basophils % Nucleated RBC % Hypochromia Platelet Estimate Platelet Comment Polychromasia Basophilic Stippling Anisocytosis Microcytosis Target Cells PT with INR INR PTT (Actin FS) Puncture Site ABG pH ABG pCO2 at Pt Temp ABG pO2 at Pt Temp ABG HCO3 ABG O2 Sat (Measured) ABG O2 Content ABG Base Excess Emil Test O2 Delivery Device Oxygen Flow Rate Mechanical Rate PEEP Sodium 136 Potassium 4.8 Chloride 108 H Carbon Dioxide 15 L Anion Gap 14 BUN 18 Creatinine 0.6 Creat Clearance w eGFR > 60 POC Glucometer 183 Random Glucose 197 H Calcium 6.1 L* Phosphorus 2.2 L Magnesium 1.8 Total Bilirubin 5.6 H AST 70 H ALT 26 Alkaline Phosphatase 926 H Creatine Kinase 61 Troponin I < 0.02 Total Protein 5.4 L Albumin 1.6 L 09/20/18 09/20/18 09/20/18 05:50 05:50 05:50 WBC 38.5 H* RBC 3.12 L Hgb 6.8 L* Hct 22.3 L MCV 71.4 L MCH 21.7 L MCHC 30.4 L RDW 28.3 H Plt Count 248 MPV 9.7 Absolute Neuts (auto) 35.9 H Total Counted Neutrophils % 93.1 H Neutrophils % (Manual) Band Neutrophils % Lymphocytes % 4.6 L D Lymphocytes % (Manual) Monocytes % 2.1 L Monocytes % (Manual) Eosinophils % 0.0 D Basophils % 0.2 Nucleated RBC % 0 Hypochromia Platelet Estimate Platelet Comment Polychromasia Basophilic Stippling Anisocytosis Microcytosis Target Cells PT with INR 22.40 H INR 1.89 H PTT (Actin FS) 36.4 Puncture Site ABG pH ABG pCO2 at Pt Temp ABG pO2 at Pt Temp ABG HCO3 ABG O2 Sat (Measured) ABG O2 Content ABG Base Excess Emil Test O2 Delivery Device Oxygen Flow Rate Mechanical Rate PEEP Sodium 138 Potassium 4.9 Chloride 109 H Carbon Dioxide 15 L Anion Gap 14 BUN 20 H Creatinine 0.7 Creat Clearance w eGFR > 60 POC Glucometer Random Glucose 98 Calcium 6.1 L* Phosphorus 2.5 Magnesium 1.8 Total Bilirubin 6.3 H AST 122 H ALT 30 Alkaline Phosphatase 889 H Creatine Kinase Troponin I Total Protein 5.4 L Albumin 1.6 L 09/20/18 09/20/18 09/20/18 05:50 05:58 08:42 WBC RBC Hgb Hct MCV MCH MCHC RDW Plt Count MPV Absolute Neuts (auto) Total Counted Neutrophils % Neutrophils % (Manual) Band Neutrophils % Lymphocytes % Lymphocytes % (Manual) Monocytes % Monocytes % (Manual) Eosinophils % Basophils % Nucleated RBC % Hypochromia Platelet Estimate Platelet Comment Polychromasia Basophilic Stippling Anisocytosis Microcytosis Target Cells PT with INR INR PTT (Actin FS) Puncture Site Right radial ABG pH 7.47 H ABG pCO2 at Pt Temp 22.7 L ABG pO2 at Pt Temp 58.3 L ABG HCO3 16.1 L ABG O2 Sat (Measured) 88.5 L ABG O2 Content 8.2 L* ABG Base Excess -6.6 L Emil Test Positive O2 Delivery Device Nasal cannula Oxygen Flow Rate 3l Mechanical Rate No PEEP 0.0 Sodium Potassium Chloride Carbon Dioxide Anion Gap BUN Creatinine Creat Clearance w eGFR POC Glucometer 139 Random Glucose Calcium Phosphorus Magnesium Total Bilirubin AST ALT Alkaline Phosphatase Creatine Kinase Troponin I < 0.02 Total Protein Albumin Active Medications Generic Name Dose Route Start Last Admin Trade Name Freq PRN Reason Stop Dose Admin Al Hydroxide/Mg Hydroxide 30 ml 09/19/18 18:00 09/19/18 21:19 Mylanta Oral Suspension - PO 30 ml Q6H PRN Administration DYSPEPSIA Albuterol/Ipratropium 1 amp 09/19/18 22:38 Duoneb - NEB Q6H PRN SHORTNESS OF BREATH Docusate Sodium 100 mg 09/17/18 06:00 09/20/18 06:03 Colace - PO Not Given TID LIT Fluconazole 100 mg 09/19/18 13:45 09/19/18 14:41 Diflucan - PO 100 mg DAILY LIT Administration Heparin Sodium (Porcine) 5,000 unit 09/17/18 10:00 09/19/18 22:16 Heparin - SQ 5,000 unit BID LIT Administration Dextrose/Sodium Chloride 1,000 mls @ 75 mls/hr 09/17/18 03:15 09/20/18 02:27 D5-1/2ns - IV Not Given ASDIR [facility] Sodium Chloride 1,000 mls @ 100 mls/hr 09/20/18 08:29 Normal Saline - IV ASDIR [facility] Insulin Aspart 1 vial 09/17/18 07:00 09/20/18 06:04 Novolog Vial Sliding Scale - SQ Not Given ACHS [facility] Protocol Metoprolol Succinate 100 mg 09/17/18 10:00 09/19/18 09:44 Toprol Xl - PO 100 mg DAILY LIT Administration Nifedipine 30 mg 09/17/18 10:00 09/19/18 09:44 Procardia Xl - PO 30 mg DAILY LIT Administration Potassium Chloride 10 meq 09/17/18 10:00 09/19/18 22:16 K-Dur - PO 10 meq BID LIT Administration Sucralfate 1 gm 09/19/18 18:57 09/19/18 22:55 Carafate Oral Suspension - PO Not Given QID [facility] Zolpidem Tartrate 5 mg 09/17/18 22:00 09/19/18 22:16 Ambien - PO 5 mg HS PRN Administration INSOMNIA ASSESSMENT/PLAN: 1) Metastatic Bladder Cancer to bones and liver 2) Metabolic Acidosis, persistent 3) Shortness of Breath, acute hypoxic respiratory failure 4) Hyperbilirubinemia 5) Tumor fevers? 6) Anemia, worsening 7) Repeated urosepsis 8) Chest Pain, atypical 9) History of pericardial effusion Overall the patient is clinically the same in terms of his hemodynamics but his labs are worsening (worse hyperbili, worse leukocytosis). CV saw him and he will be getting an echocardiogram to r/o pericrdial effusion as he has a history of this as well as a CTA to r/o PE. Should he have a pericardial effusion transfer to [facility] may ultimately prove to be needed. He will be given 2 units PRBC for his worsening anemia (down to the 6-range) and we will followup post-XF CBC. I discussed his case with heme/onc who are pending palliative consult; he can consider outpatient immunotherapy should he improve but given his acute issues this is a remote possibilty at this juncture. We will continue to monitor and treat supportively. Abx per ID. Consulting urology for assessment for suprapubic tube as per ID. Increasing rate of fluids to 100 and checking PM BMP, ABG, lactate to further describe the patient' s metabolic acidosis (may be more complicated acid/base disturbance given his hypoxia). Overall this patient remains ill and will continue to need inpatient services Locomotive Oiler notes reviewed; appreciate all specialty support in the ongoing management of this patient. Visit type - Emergency Visit Emergency Visit: No - New Patient This patient is new to me today: No - Critical Care Critical Care patient: No
[2018-09-20] MEDS ORDERED: PT OWN MED DRAWER 7, Y5N ONE (10:11)
[2018-09-20 10:15] LABS: MAGNESIUM 1.9 mg/dL (1.8-2.4); N-TERMINAL BNP 3882.4 pg/ml (5-450)
[2018-09-20] MEDS: NIFEdipine E.R. 30 MG TABLET (FP) PO SCH (10:21)
[2018-09-20] MEDS: FLUCONAZOLE 100 MG TABLET (UD) PO SCH (10:21)
[2018-09-20] MEDS: SUCRALFATE 1 GM/10 ML UNIT DOSE CUPS PO SCH ×4 (10:21→22:07)
[2018-09-20] MEDS: POTASSIUM CHLORIDE TABS 10 MEQ TABLET.ER (FP) PO SCH ×2 (10:21→22:08)
[2018-09-20] MEDS: HEPARIN NA (PORCINE) 5,000 UNITS/ML 1ML VIAL SQ SCH ×2 (10:22→22:14)
--- NOTE | 2018-09-20 12:20 | ECHO ---
Name: MALATHI CHUA JR Exam:Adult Echocardiogram Study Date: 09/20/2018 09:47 AM Age: 78 yrs Reason For Study: Pericardial Effusion Height: 68 in Weight: 154 lb BSA: 1.8 m2 Doppler Measurements & Calculations MV E max augie: 52.4 cm/sec Lat Peak E' Augie: 5.8 cm/sec MV A max augie: 74.2 cm/sec Lat E/e': 9.1 MV E/A: 0.71 Procedure The study was non-diagnostic in quality. No definitive statements could be made about this echo due t o extremely poor acoustic windows. Images were not obtained from all of the standard acoustic windows d ue to the limited scope of the study. Left Ventricle The left ventricle is not well visualized. Right Ventricle The right ventricle is not well visualized. Pericardium/Pleura Due to the poor quality of the echocardiogram, a pericardial effusion cannot be excluded. Pericardium not well visualized. Interpretation Summary Non diagnostic limited echo. Recommend repeating ECHO with all standard views and measurements. The study was non-diagnostic in qu ality. No definitive statements could be made about this echo due to extremely poor acoustic windows. Images were not obtained from all of the standard acoustic windows due to the limited scope of the st udy. The left ventricle is not well visualized. The right ventricle is not well visualized. Due to the poor quality of the echocardiogram, a pericardial effusion cannot be excluded. Pericardium not well visualized. Non diagnostic limited echo. Recommend repeating ECHO with all standard views and measurements. MD Andrew Acosta 09/20/2018 12:19 PM
--- NOTE | 2018-09-20 13:48 | PN ---
Progress Note (short form) - Note Progress Note: PROGRESS NOTE FOR HEMATOLOGY/ONCOLOGY Patient seen and examined by me at bedside Patient less dyspneic today but still uses some accessory muscle. CTA chest pending ECHO pending Plans to transfuse 2 units of PRBC Denies any shortness of breath, nausea, vomiting, chest pain, palpitations, abdominal pain, hematuria, dysuria, melena, hematochezia, hematemesis Vital Signs Temperature 98.2 F 09/20/18 06:55 Pulse Rate 111 H 09/20/18 06:55 Respiratory Rate 20 09/20/18 06:55 Blood Pressure 100/61 09/20/18 06:55 O2 Sat by Pulse Oximetry (%) 92 L 09/19/18 21:00 PHYSICAL EXAMINATION: GENERAL: Thin, Pale, awake, slightly confused, oriented to person and place EYES: Pupils equal, round and reactive to light (+) scleral icterus ENT: Oropharynx clear without exudates. Moist mucous membranes. LUNGS: Diminished breath sounds. Some accessory muscle use. On 02 NC HEART: RRR, normal S1 and S2 ABDOMEN: Soft, nontender, nondistended, normoactive bowel sounds EXTREMITIES: No peripheral edema. NEUROLOGICAL: Cranial nerves II-XII intact SKIN: Warm, dry, normal turgor, no rashes or lesions noted. Laboratory Tests 09/20/18 05:50 09/20/18 05:50 ASSESSMENT AND PLAN: Patient is a 78 year old male with PMHx of Metastatic bladder cancer who was BIBEMS from [place] for fever and worsening jaundice and found to have recurrent UTI. Problem List: Bladder Cancer with metastatic disease to bone/liver Fever and jaundice- possible sepsis Dyspneic /tachypneic Subxiphoid pain Tumor fever HTN HLD NIDDMII PLAN: -Hgb <7 with plans for 2 units of PRBC's today -CTA chest done to rule out PE. Pending results -ECHO done with pending results -Urology to assess patient for possible suprapubic catheter -Patient has progressive disease and will need palliative care consult
--- NOTE | 2018-09-20 13:49 | PN ---
Progress Note, Physician History of Present Illness: weak bored h and h low no other complaints awaiting gu to see him - Current Medication List Current Medications: Active Medications Al Hydroxide/Mg Hydroxide (Mylanta Oral Suspension -) 30 ml PO Q6H PRN PRN Reason: DYSPEPSIA Last Admin: 09/19/18 21:19 Dose: 30 ml Albuterol/Ipratropium (Duoneb -) 1 amp NEB Q6H PRN PRN Reason: SHORTNESS OF BREATH Docusate Sodium (Colace -) 100 mg PO TID [facility] Last Admin: 09/20/18 06:03 Dose: Not Given Fluconazole (Diflucan -) 100 mg PO DAILY [facility] Last Admin: 09/20/18 10:21 Dose: 100 mg Heparin Sodium (Porcine) (Heparin -) 5,000 unit SQ BID [facility] Last Admin: 09/20/18 10:22 Dose: 5,000 unit Dextrose/Sodium Chloride (D5-1/2ns -) 1,000 mls @ 75 mls/hr IV ASDIR [facility] Last Admin: 09/20/18 02:27 Dose: Not Given Sodium Chloride (Normal Saline -) 1,000 mls @ 100 mls/hr IV ASDIR [facility] Last Admin: 09/20/18 10:20 Dose: 100 mls/hr Insulin Aspart (Novolog Vial Sliding Scale -) 1 vial SQ ACHS [facility]; Protocol Last Admin: 09/20/18 12:26 Dose: 4 unit Metoprolol Succinate (Toprol Xl -) 100 mg PO DAILY [facility] Last Admin: 09/20/18 10:21 Dose: 100 mg Nifedipine (Procardia Xl -) 30 mg PO DAILY [facility] Last Admin: 09/20/18 10:21 Dose: 30 mg Potassium Chloride (K-Dur -) 10 meq PO BID [facility] Last Admin: 09/20/18 10:21 Dose: 10 meq Sucralfate (Carafate Oral Suspension -) 1 gm PO QID [facility] Last Admin: 09/20/18 10:21 Dose: 1 gm Zolpidem Tartrate (Ambien -) 5 mg PO HS PRN PRN Reason: INSOMNIA Last Admin: 09/19/18 22:16 Dose: 5 mg - Objective Vital Signs: Vital Signs Temperature 98.2 F 09/20/18 06:55 Pulse Rate 111 H 09/20/18 06:55 Respiratory Rate 20 09/20/18 06:55 Blood Pressure 100/61 09/20/18 06:55 O2 Sat by Pulse Oximetry (%) 92 L 09/19/18 21:00 Constitutional: Yes: Calm, Other Cardiovascular: Yes: Regular Rate and Rhythm Respiratory: Yes: Regular, CTA Bilaterally Gastrointestinal: Yes: Normal Bowel Sounds, Soft Genitourinary: Yes: Galarza Present Musculoskeletal: Yes: WNL Extremities: Yes: WNL Neurological: Yes: Alert, Oriented Labs: CBC, BMP 09/20/18 05:50 09/20/18 05:50 INR, PTT INR 1.89 (0.83-1.09) H 09/20/18 05:50 - ....Imaging Cat Scan: Report Reviewed, Image Reviewed MRI: Report Reviewed, Image Reviewed Assessment/Plan i think patient is becoming septic will start patient on iv abx hydration nutrition supportive care rest as per the team Problem List - Problems (1) 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 Code(s): C79.9 - SECONDARY MALIGNANT NEOPLASM OF UNSPECIFIED SITE; C67.9 - MALIGNANT NEOPLASM OF BLADDER, UNSPECIFIED (2) Jaundice Code(s): R17 - UNSPECIFIED JAUNDICE (3) Acute on chronic renal failure Code(s): N17.9 - ACUTE KIDNEY FAILURE, UNSPECIFIED; N18.9 - CHRONIC KIDNEY DISEASE, UNSPECIFIED Qualifiers: Acute renal failure type: unspecified Chronic kidney disease stage: stage 3 (moderate) Qualified Code(s): N17.9 - Acute kidney failure, unspecified; N18.3 - Chronic kidney disease, stage 3 (moderate) (4) Anemia Code(s): D64.9 - ANEMIA, UNSPECIFIED Qualifiers: Anemia type: due to chronic kidney disease Chronic kidney disease stage: stage 3 (moderate) Qualified Code(s): N18.3 - Chronic kidney disease, stage 3 (moderate); D63.1 - Anemia in chronic kidney disease (5) Diarrhea Code(s): R19.7 - DIARRHEA, UNSPECIFIED (6) HLD (hyperlipidemia) Code(s): E78.5 - HYPERLIPIDEMIA, UNSPECIFIED (7) Hypertension Code(s): I10 - ESSENTIAL (PRIMARY) HYPERTENSION Qualifiers: Hypertension type: other secondary hypertension Qualified Code(s): I15.8 - Other secondary hypertension (8) Fever Code(s): R50.9 - FEVER, UNSPECIFIED 9 leukocytosis plan continue antifungal transfusion nutrition await gu input rest as per the team
[2018-09-20 14:20] LABS: ANISOCYTOSIS 1+; MACROCYTOSIS 1+; OVALOCYTE 1+; TARGET CELLS 1+
--- NOTE | 2018-09-20 14:54 | CON.GU ---
Consult Consult Specialty:: Referred by:: Raymond Reason for Consultation:: SP tube - History of Present Illness Chief Complaint: fever History of Present Illness: 78yo man with a PMH of HTn, HLD, DM, and bladder CA with liver metastasis, recently admitted about 2 weeks ago with difficult to teat UTi and generalized weakness, transferred to an OSH for pericardial effusion. He was recently discharged to a SNF and reportedly had fevers and chills earlier today. He was additioanly noted to be tachycardic and had low oxygen saturation per EMS. His home help aide, Dr Vance, called the ED earlier tonight to inform of his transfer. She reported that he received meropenem and linezolid per Dr Nino earlier today for the fever. Mr Corley is currently denying that he ever had a fever or chills. He additionally denies shortness of breath, stating "why does everyone keep asking that?" He denies any chest pain, abdominal pain, nausea/vomiting, urinary symptoms, or change in bowel habits. He does endorse weight loss but reports that the "food is terrible" at his SNF. cons req for SPT. - History Source History Provided By: Medical Record - Past Medical History Cardio/Vascular: Yes: HTN, Hyperlipdemia Hepatobiliary: Yes: Cirrhosis (by imaging) Renal/: Yes: Renal Failure, BPH, Cancer, Hematuria, UTI Endocrine: Yes: Diabetes Mellitus - Past Surgical History Past Surgical History: Yes: Stent (urinary), TURP - Alcohol/Substance Use Hx Alcohol Use: No History of Substance Use: reports: None - Smoking History Smoking history: Former smoker Have you smoked in the past 12 months: No Aproximately how many cigarettes per day: 0 If you are a former smoker, when did you quit?: 1989 - Social History Usual Living Arrangement: With Spouse ADL: Independent History of Recent Travel: No Home Medications - Allergies Allergies/Adverse Reactions: Allergies Allergy/AdvReac Type Severity Reaction Status Date / Time No Known Allergies Allergy Verified 09/04/18 21:02 - Home Medications Home Medications: Ambulatory Orders Finasteride [Proscar -] 5 mg PO DAILY 06/25/18 Metformin HCl [Glucophage] 1,000 mg PO BID 06/25/18 Metoprolol Succinate [Toprol XL -] 100 mg PO DAILY 06/25/18 Multivit-Min/FA/Lycopen/Lutein [Centrum Silver Men Tablet] 1 each PO DAILY 06/25 Nifedipine [Procardia Xl] 30 mg PO DAILY 06/25/18 Silodosin [Rapaflo] 8 mg PO DAILY 06/25/18 Zolpidem Tartrate [Ambien] 5 mg PO HS 06/25/18 Docusate Sodium [Colace -] 100 mg PO TID capsule 08/01/18 Insulin Sliding Scale [Novolog Vial Sliding Scale -] 1 vial SQ ACHS units 08/16 Potassium Chloride [K-Dur -] 10 meq PO BID #60 tablet.er 08/16/18 Amox-Tr/K Cl [Augmentin 875-125mg Tablet -] 1 tab PO BID@0800,1730 #14 tablet Linezolid [Zyvox (Restricted To Id) -] 600 mg PO BID #18 tablet 09/01/18 Family Disease History - Family Disease History Family Disease History: Other: Father (: 45: "heart problem"), Mother ( : 80: COPD), Brother (1, 80's, unclear cause), Son (1, healthy), Daughter ( 1, healthy) Physical Exam- Vital Signs: Vital Signs Temperature 98.2 F 09/20/18 06:55 Pulse Rate 111 H 09/20/18 06:55 Respiratory Rate 20 09/20/18 06:55 Blood Pressure 100/61 09/20/18 06:55 O2 Sat by Pulse Oximetry (%) 92 L 09/19/18 21:00 Eyes: Yes: Sclera Icterus Gastrointestinal: Yes: Ascites Renal/: Yes: Rahman Present Labs: CBC, BMP 09/20/18 05:50 09/20/18 05:50 Problem List - Problems (1) Bladder cancer Assessment/Plan: SP tube contraindicated w bladder cancer, cont rahman, prognosis poor Code(s): C67.9 - MALIGNANT NEOPLASM OF BLADDER, UNSPECIFIED (2) Fever Code(s): R50.9 - FEVER, UNSPECIFIED (3) Jaundice Code(s): R17 - UNSPECIFIED JAUNDICE
[2018-09-20] MEDS: ALBUTEROL SO4 2.5/IPRATROPIUM 0.5 INH SOL 3 ML VIAL.NEB. NEB PRN ×2 (18:39→21:28)
--- NOTE | 2018-09-20 20:03 | PN ---
Teaching Attending Note Name of Resident: Laura Mcleod ATTENDING PHYSICIAN STATEMENT I saw and evaluated the patient. I reviewed the resident's note and discussed the case with the resident. I agree with the resident's findings and plan as documented. SUBJECTIVE: Patient seen and examined S/P transfusion therpay Still congested Undergoing cardiac assessment. note appreciated Not a candidate for suprapubic catheter. OBJECTIVE: ASSESSMENT AND PLAN:
[2018-09-20 21:29] LABS: BASO % 0.2 % (0-2.0); HEMATOCRIT 24.4 % (35.4-49); LYMPH % 4.1 % (8-40); MCH 23.9 pg (25.7-33.7); MCHC 32.8 g/dl (32.0-35.9); MEAN CELL VOLUME 72.9 fl (80-96); MEAN PLT VOLUME 9.4 fl (7.5-11.1); MONO % 3.5 % (3.8-10.2); NEUT % 92.2 % (42.8-82.8); PLATELET COUNT 263 K/MM3 (134-434); RBC 3.35 M/mm3 (4.00-5.60); RDW 27.8 % (11.9-15.9); WHITE BLOOD COUNT 25.7 K/mm3 (4.0-10.0)
[2018-09-20 22:00] LABS: ANION GAP 12 MMOL/L (8-16); BLOOD UREA NITROGEN 22 mg/dL (7-18); CHLORIDE 108 mmol/L (98-107); CO2 17 mmol/L (21-32); CREATININE 0.7 mg/dL (0.55-1.3); GLUCOSE,RANDOM 203 mg/dL (74-106); POTASSIUM 5.5 mmol/L (3.5-5.1); SODIUM 136 mmol/L (136-145)
[2018-09-20 22:05] LABS: CALCIUM 6.1 mg/dL (8.5-10.1)
[2018-09-21 02:04] LABS: HEMATOCRIT 24.5 % (35.4-49); HEMOGLOBIN 8.1 GM/dL (11.7-16.9); MCH 23.7 pg (25.7-33.7); MEAN CELL VOLUME 71.8 fl (80-96); MEAN PLT VOLUME 9.2 fl (7.5-11.1); PLATELET COUNT 269 K/MM3 (134-434); RBC 3.42 M/mm3 (4.00-5.60); RDW 28.3 % (11.9-15.9); WHITE BLOOD COUNT 28.3 K/mm3 (4.0-10.0)
[2018-09-21 03:49] LABS: ANISOCYTOSIS 2+; MACROCYTOSIS 1+; TARGET CELLS 2+
[2018-09-21] MEDS: DOCUSATE SODIUM 100 MG CAPSULE (FP) PO SCH ×3 (06:04→21:02)
[2018-09-21] MEDS: INSULIN SLIDING SCALE (NOVOLOG) 1 VIAL SQ SCH ×4 (06:10→22:22)
[2018-09-21 06:35] LABS: BASO % 0.2 % (0-2.0); EOS % 0.1 % (0-4.5); HEMATOCRIT 25.1 % (35.4-49); HEMOGLOBIN 8.4 GM/dL (11.7-16.9); LYMPH % 3.5 % (8-40); MCHC 33.5 g/dl (32.0-35.9); MEAN CELL VOLUME 71.6 fl (80-96); MEAN PLT VOLUME 9.4 fl (7.5-11.1); MONO % 3.2 % (3.8-10.2); PLATELET COUNT 272 K/MM3 (134-434); RBC 3.51 M/mm3 (4.00-5.60); RDW 27.9 % (11.9-15.9); WHITE BLOOD COUNT 26.6 K/mm3 (4.0-10.0)
[2018-09-21 08:15] LABS: ANION GAP 12 MMOL/L (8-16); BLOOD UREA NITROGEN 25 mg/dL (7-18); CHLORIDE 109 mmol/L (98-107); CO2 16 mmol/L (21-32); CREATININE 0.6 mg/dL (0.55-1.3); GLUCOSE,RANDOM 138 mg/dL (74-106); POTASSIUM 5.2 mmol/L (3.5-5.1); SODIUM 136 mmol/L (136-145)
[2018-09-21 08:28] LABS: CALCIUM 6.2 mg/dL (8.5-10.1)
[2018-09-21] MEDS ORDERED: SODIUM CHLORIDE 250 ML IV STA (09:02)
--- NOTE | 2018-09-21 09:02 | PN ---
Progress Note, Physician Chief Complaint: CTA negative for PE Echo was technically difficult and will be repeated today by another tech. This morning, no complaints, appears comfortable but BP running low. TELE: NSR, sinus tach - Current Medication List Current Medications: Active Medications Al Hydroxide/Mg Hydroxide (Mylanta Oral Suspension -) 30 ml PO Q6H PRN PRN Reason: DYSPEPSIA Last Admin: 09/19/18 21:19 Dose: 30 ml Albuterol/Ipratropium (Duoneb -) 1 amp NEB Q6H PRN PRN Reason: SHORTNESS OF BREATH Last Admin: 09/20/18 21:28 Dose: 1 amp Docusate Sodium (Colace -) 100 mg PO TID [facility] Last Admin: 09/21/18 06:04 Dose: Not Given Fluconazole (Diflucan -) 100 mg PO DAILY [facility] Last Admin: 09/20/18 10:21 Dose: 100 mg Heparin Sodium (Porcine) (Heparin -) 5,000 unit SQ BID [facility] Last Admin: 09/20/18 22:14 Dose: 5,000 unit Insulin Aspart (Novolog Vial Sliding Scale -) 1 vial SQ ACHS [facility]; Protocol Last Admin: 09/21/18 06:10 Dose: 2 unit Metoprolol Succinate (Toprol Xl -) 100 mg PO DAILY [facility] Last Admin: 09/20/18 10:21 Dose: 100 mg Nifedipine (Procardia Xl -) 30 mg PO DAILY [facility] Last Admin: 09/20/18 10:21 Dose: 30 mg Potassium Chloride (K-Dur -) 10 meq PO BID [facility] Last Admin: 09/20/18 22:08 Dose: 10 meq Sucralfate (Carafate Oral Suspension -) 1 gm PO QID [facility] Last Admin: 09/20/18 22:07 Dose: 1 gm - Objective Vital Signs: Vital Signs Temperature 98.6 F 09/21/18 08:48 Pulse Rate 96 H 09/21/18 08:48 Respiratory Rate 20 09/21/18 08:48 Blood Pressure 84/59 L 09/21/18 08:48 O2 Sat by Pulse Oximetry (%) 94 L 09/20/18 21:00 Constitutional: Yes: No Distress HENT: Yes: Other (jaundice) Cardiovascular: Yes: Regular Rate and Rhythm Respiratory: Yes: CTA Bilaterally (no rales or wheezing) Gastrointestinal: Yes: Soft, Abdomen, Obese Edema: No Neurological: Yes: Alert, Oriented Labs: CBC, BMP 09/21/18 06:00 09/21/18 06:00 INR, PTT INR 1.89 (0.83-1.09) H 09/20/18 05:50 - ....Imaging EKG: Image Reviewed Assessment/Plan IMP: Metastatic bladder cancer Recent pericardial effusion- benign Anemia Jaundice Atypical Chest pain Electrolyte abnormalities REC: 1. Repeat echo to assess pericardial effusion was technically difficult and will be repeated today 2. Appropriate bump in H/H with PRBCs, follow H/H 3. CTA negative for pulmonary embolism 4. Correction of electrolyte abnormalities 5. Infectious w/u as per PMD
[2018-09-21] MEDS: HEPARIN NA (PORCINE) 5,000 UNITS/ML 1ML VIAL SQ SCH ×2 (09:22→21:01)
[2018-09-21] MEDS: SUCRALFATE 1 GM/10 ML UNIT DOSE CUPS PO SCH ×4 (09:22→21:01)
[2018-09-21] MEDS: POTASSIUM CHLORIDE TABS 10 MEQ TABLET.ER (FP) PO SCH ×2 (09:22→21:05)
[2018-09-21] MEDS: FLUCONAZOLE 100 MG TABLET (UD) PO SCH (09:22)
[2018-09-21] MEDS: NIFEdipine E.R. 30 MG TABLET (FP) PO SCH (09:23)
--- NOTE | 2018-09-21 10:48 | ECHO ---
Name: MALATHI CHUA JR Exam:Adult Echocardiogram Study Date: 09/21/2018 07:45 AM Age: 78 yrs Reason For Study: r/o Perivardial effusion/tamponade Height: 68 in Weight: 154 lb BSA: 1.8 m2 Procedure A limited two-dimensional transthoracic echocardiogram was performed (2D). Interpretation Summary A limited two-dimensional transthoracic echocardiogram was performed to rule out pericardial effusion . Only subcostal views were obtained. No pericardial effusion is seen. MD Keaton Glynn 09/21/2018 10:47 AM
[2018-09-21 11:01] LABS: ANISOCYTOSIS 1+; MACROCYTOSIS 1+; OVALOCYTE 1+; PLATELET ESTIMATE NORMAL; TARGET CELLS 2+
--- NOTE | 2018-09-21 12:47 | PN ---
Progress Note, Physician History of Present Illness: patient still very weak was transfused says he is bored gu note noted - Current Medication List Current Medications: Active Medications Al Hydroxide/Mg Hydroxide (Mylanta Oral Suspension -) 30 ml PO Q6H PRN PRN Reason: DYSPEPSIA Last Admin: 09/19/18 21:19 Dose: 30 ml Albuterol/Ipratropium (Duoneb -) 1 amp NEB Q6H PRN PRN Reason: SHORTNESS OF BREATH Last Admin: 09/20/18 21:28 Dose: 1 amp Docusate Sodium (Colace -) 100 mg PO TID [facility] Last Admin: 09/21/18 06:04 Dose: Not Given Fluconazole (Diflucan -) 100 mg PO DAILY [facility] Last Admin: 09/21/18 09:22 Dose: 100 mg Heparin Sodium (Porcine) (Heparin -) 5,000 unit SQ BID [facility] Last Admin: 09/21/18 09:22 Dose: 5,000 unit Insulin Aspart (Novolog Vial Sliding Scale -) 1 vial SQ [facility]; Protocol Last Admin: 09/21/18 11:21 Dose: 2 unit Metoprolol Succinate (Toprol Xl -) 100 mg PO DAILY [facility] Last Admin: 09/20/18 10:21 Dose: 100 mg Nifedipine (Procardia Xl -) 30 mg PO DAILY [facility] Last Admin: 09/21/18 09:23 Dose: Not Given Potassium Chloride (K-Dur -) 10 meq PO BID [facility] Last Admin: 09/21/18 09:22 Dose: 10 meq Sucralfate (Carafate Oral Suspension -) 1 gm PO QID [facility] Last Admin: 09/21/18 09:22 Dose: 1 gm - Objective Vital Signs: Vital Signs Temperature 98.6 F 09/21/18 08:48 Pulse Rate 96 H 09/21/18 08:48 Respiratory Rate 20 09/21/18 08:48 Blood Pressure 84/59 L 09/21/18 08:48 O2 Sat by Pulse Oximetry (%) 93 L 09/21/18 09:00 Constitutional: Yes: Calm Cardiovascular: Yes: Regular Rate and Rhythm Respiratory: Yes: Regular, CTA Bilaterally Gastrointestinal: Yes: Normal Bowel Sounds, Soft Genitourinary: Yes: Galarza Present Musculoskeletal: Yes: WNL Extremities: Yes: WNL Neurological: Yes: Alert, Oriented Psychiatric: Yes: Alert, Oriented Labs: CBC, BMP 09/21/18 06:00 09/21/18 06:00 INR, PTT INR 1.89 (0.83-1.09) H 09/20/18 05:50 Assessment/Plan gu note noted patient to continue current mgmt we should start physio monitor electrolytes rest as per the team monitor h and h
[2018-09-21] MEDS: ALBUTEROL SO4 2.5/IPRATROPIUM 0.5 INH SOL 3 ML VIAL.NEB. NEB PRN ×2 (17:04→20:50)
--- NOTE | 2018-09-21 17:43 | PN ---
Progress Note (short form) - Note Progress Note: PROGRESS NOTE FOR HEMATOLOGY/ONCOLOGY Patient seen and examined by me at bedside Patient offers no complaints CTA chest negative for [place] Echo was technically difficult yesterday and even tried at bedside with attending, Dr. Gaudencio Rizo with no success. Repeat ECHO pending Denies any shortness of breath, nausea, vomiting, chest pain, palpitations, abdominal pain, hematuria, dysuria, melena, hematochezia, hematemesis Vital Signs Temperature 97.3 F L 09/21/18 14:18 Pulse Rate 95 H 09/21/18 14:18 Respiratory Rate 20 09/21/18 14:18 Blood Pressure 88/65 L 09/21/18 14:18 O2 Sat by Pulse Oximetry (%) 93 L 09/21/18 09:00 PHYSICAL EXAMINATION: GENERAL: Thin, Pale, awake, slightly confused, oriented to person and place EYES: Pupils equal, round and reactive to light (+) scleral icterus ENT: Oropharynx clear without exudates. Moist mucous membranes. LUNGS: Diminished breath sounds. Some accessory muscle use. On 02 NC HEART: RRR, normal S1 and S2 ABDOMEN: Soft, nontender, nondistended, normoactive bowel sounds EXTREMITIES: No peripheral edema. NEUROLOGICAL: Cranial nerves II-XII intact SKIN: Warm, dry, normal turgor, no rashes or lesions noted. Laboratory Tests 09/21/18 06:00 09/21/18 06:00 ASSESSMENT AND PLAN: Patient is a 78 year old male with PMHx of Metastatic bladder cancer who was BIBEMS from [place] for fever and worsening jaundice and found to have recurrent UTI. Problem List: Bladder Cancer with metastatic disease to bone/liver Fever and jaundice- possible sepsis Dyspneic /tachypneic Subxiphoid pain Tumor fever HTN HLD NIDDMII PLAN: -Appropriate response to 2 units of PRBC's -CTA chest negative -Repeat ECHO done and revealed no effusions -Urology recommendations noted -Patient has progressive disease and will need palliative care consult
--- NOTE | 2018-09-21 19:52 | PN ---
Teaching Attending Note ATTENDING PHYSICIAN STATEMENT I saw and evaluated the patient. I reviewed the resident's note and discussed the case with the resident. I agree with the resident's findings and plan as documented. SUBJECTIVE: OBJECTIVE: ASSESSMENT AND PLAN: Problem List - Problems (1) Bladder cancer Code(s): C67.9 - MALIGNANT NEOPLASM OF BLADDER, UNSPECIFIED
--- NOTE | 2018-09-21 23:55 | PN ---
Progress Note, Physician - Current Medication List Current Medications: Active Medications Al Hydroxide/Mg Hydroxide (Mylanta Oral Suspension -) 30 ml PO Q6H PRN PRN Reason: DYSPEPSIA Last Admin: 09/19/18 21:19 Dose: 30 ml Albuterol/Ipratropium (Duoneb -) 1 amp NEB Q6H PRN PRN Reason: SHORTNESS OF BREATH Last Admin: 09/21/18 20:50 Dose: 1 amp Docusate Sodium (Colace -) 100 mg PO TID [facility] Last Admin: 09/21/18 21:02 Dose: 100 mg Fluconazole (Diflucan -) 100 mg PO DAILY [facility] Last Admin: 09/21/18 09:22 Dose: 100 mg Heparin Sodium (Porcine) (Heparin -) 5,000 unit SQ BID [facility] Last Admin: 09/21/18 21:01 Dose: 5,000 unit Insulin Aspart (Novolog Vial Sliding Scale -) 1 vial SQ ACHS [facility]; Protocol Last Admin: 09/21/18 22:22 Dose: 4 unit Metoprolol Succinate (Toprol Xl -) 100 mg PO DAILY [facility] Last Admin: 09/20/18 10:21 Dose: 100 mg Nifedipine (Procardia Xl -) 30 mg PO DAILY [facility] Last Admin: 09/21/18 09:23 Dose: Not Given Potassium Chloride (K-Dur -) 10 meq PO BID [facility] Last Admin: 09/21/18 21:05 Dose: 10 meq Sucralfate (Carafate Oral Suspension -) 1 gm PO QID [facility] Last Admin: 09/21/18 21:01 Dose: 1 gm - Objective Vital Signs: Vital Signs Temperature 97.6 F 09/21/18 18:00 Pulse Rate 75 09/21/18 18:00 Respiratory Rate 18 09/21/18 18:00 Blood Pressure 89/67 L 09/21/18 18:00 O2 Sat by Pulse Oximetry (%) 93 L 09/21/18 09:00 Labs: CBC, BMP 09/21/18 06:00 09/21/18 06:00 INR, PTT INR 1.89 (0.83-1.09) H 09/20/18 05:50 Problem List - Problems (1) Fever Code(s): R50.9 - FEVER, UNSPECIFIED (2) Jaundice Code(s): R17 - UNSPECIFIED JAUNDICE (3) Acute on chronic renal failure Code(s): N17.9 - ACUTE KIDNEY FAILURE, UNSPECIFIED; N18.9 - CHRONIC KIDNEY DISEASE, UNSPECIFIED Qualifiers: Acute renal failure type: unspecified Chronic kidney disease stage: stage 3 (moderate) Qualified Code(s): N17.9 - Acute kidney failure, unspecified; N18.3 - Chronic kidney disease, stage 3 (moderate) (4) Anemia Code(s): D64.9 - ANEMIA, UNSPECIFIED Qualifiers: Anemia type: due to chronic kidney disease Chronic kidney disease stage: stage 3 (moderate) Qualified Code(s): N18.3 - Chronic kidney disease, stage 3 (moderate); D63.1 - Anemia in chronic kidney disease (5) Diarrhea Code(s): R19.7 - DIARRHEA, UNSPECIFIED (6) HLD (hyperlipidemia) Code(s): E78.5 - HYPERLIPIDEMIA, UNSPECIFIED (7) Hypertension Code(s): I10 - ESSENTIAL (PRIMARY) HYPERTENSION Qualifiers: Hypertension type: other secondary hypertension Qualified Code(s): I15.8 - Other secondary hypertension (8) 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
[2018-09-22 06:21] LABS: BASO % 0.3 % (0-2.0); EOS % 0.2 % (0-4.5); HEMATOCRIT 26.5 % (35.4-49); HEMOGLOBIN 8.1 GM/dL (11.7-16.9); LYMPH % 25.8 % (8-40); MCH 22.3 pg (25.7-33.7); MCHC 30.8 g/dl (32.0-35.9); MEAN CELL VOLUME 72.5 fl (80-96); MEAN PLT VOLUME 9.1 fl (7.5-11.1); MONO % 4.5 % (3.8-10.2); NEUT % 69.2 % (42.8-82.8); PLATELET COUNT 229 K/MM3 (134-434); RBC 3.65 M/mm3 (4.00-5.60); RDW 28.9 % (11.9-15.9); WHITE BLOOD COUNT 19.3 K/mm3 (4.0-10.0)
[2018-09-22 06:26] LABS: ADD RBC MORPHOLOGY YES
[2018-09-22] MEDS: INSULIN SLIDING SCALE (NOVOLOG) 1 VIAL SQ SCH ×4 (06:33→22:07)
[2018-09-22] MEDS: DOCUSATE SODIUM 100 MG CAPSULE (FP) PO SCH ×3 (06:34→22:06)
[2018-09-22 07:19] LABS: ALBUMIN 1.4 g/dl (3.4-5.0); ALK PHOS 677 U/L (45-117); ANION GAP 10 MMOL/L (8-16); BLOOD UREA NITROGEN 27 mg/dL (7-18); CHLORIDE 108 mmol/L (98-107); CO2 17 mmol/L (21-32); CREATININE 0.7 mg/dL (0.55-1.3); GLUCOSE,RANDOM 114 mg/dL (74-106); SGOT/AST 44 U/L (15-37); SGPT/ALT 24 U/L (13-61); SODIUM 135 mmol/L (136-145); TOT PROT 5.2 g/dl (6.4-8.2)
[2018-09-22 08:14] LABS: CALCIUM 6.2 mg/dL (8.5-10.1)
--- NOTE | 2018-09-22 08:53 | PN ---
Progress Note, Physician Chief Complaint: repeat echo no effusion - Current Medication List Current Medications: Active Medications Al Hydroxide/Mg Hydroxide (Mylanta Oral Suspension -) 30 ml PO Q6H PRN PRN Reason: DYSPEPSIA Last Admin: 09/19/18 21:19 Dose: 30 ml Albuterol/Ipratropium (Duoneb -) 1 amp NEB Q6H PRN PRN Reason: SHORTNESS OF BREATH Last Admin: 09/21/18 20:50 Dose: 1 amp Docusate Sodium (Colace -) 100 mg PO TID [facility] Last Admin: 09/22/18 06:34 Dose: 100 mg Fluconazole (Diflucan -) 100 mg PO DAILY [facility] Last Admin: 09/21/18 09:22 Dose: 100 mg Heparin Sodium (Porcine) (Heparin -) 5,000 unit SQ BID [facility] Last Admin: 09/21/18 21:01 Dose: 5,000 unit Insulin Aspart (Novolog Vial Sliding Scale -) 1 vial SQ ACH[facility]; Protocol Last Admin: 09/22/18 06:33 Dose: Not Given Metoprolol Succinate (Toprol Xl -) 100 mg PO DAILY [facility] Last Admin: 09/20/18 10:21 Dose: 100 mg Nifedipine (Procardia Xl -) 30 mg PO DAILY [facility] Last Admin: 09/21/18 09:23 Dose: Not Given Potassium Chloride (K-Dur -) 10 meq PO BID [facility] Last Admin: 09/21/18 21:05 Dose: 10 meq Sucralfate (Carafate Oral Suspension -) 1 gm PO QID [facility] Last Admin: 09/21/18 21:01 Dose: 1 gm - Objective Vital Signs: Vital Signs Temperature 97.2 F L 09/22/18 06:52 Pulse Rate 97 H 09/22/18 06:52 Respiratory Rate 18 09/22/18 06:52 Blood Pressure 90/52 L 09/22/18 06:52 O2 Sat by Pulse Oximetry (%) 93 L 09/21/18 21:00 Constitutional: Yes: No Distress Cardiovascular: Yes: Regular Rate and Rhythm Respiratory: Yes: CTA Bilaterally (clear anteriorly) Gastrointestinal: Yes: Soft Edema: Yes Edema: LLE: 1+, RLE: 1+ Neurological: Yes: Alert Labs: CBC, BMP 09/22/18 06:00 09/22/18 06:00 INR, PTT INR 1.89 (0.83-1.09) H 09/20/18 05:50 - ....Imaging EKG: Image Reviewed (NSR, mild sinus tach) Assessment/Plan Metastatic CA Pericardial effusion, negative cytology, resolved. REC: D/C Procardial as BP is running low. Further w/u as per PMD/Oncology DVT prophylaxis. Patient is considering changing his advanced directive to DNR/DNI
[2018-09-22] MEDS: HEPARIN NA (PORCINE) 5,000 UNITS/ML 1ML VIAL SQ SCH ×2 (09:53→22:06)
[2018-09-22] MEDS: POTASSIUM CHLORIDE TABS 10 MEQ TABLET.ER (FP) PO SCH ×2 (09:53→22:06)
[2018-09-22] MEDS: FLUCONAZOLE 100 MG TABLET (UD) PO SCH (09:53)
[2018-09-22] MEDS: SUCRALFATE 1 GM/10 ML UNIT DOSE CUPS PO SCH ×4 (09:54→22:06)
[2018-09-22 11:56] LABS: ANISOCYTOSIS 1+; MACROCYTOSIS 0; PLATELET ESTIMATE NORMAL; TARGET CELLS 1+
[2018-09-22] MEDS: ALBUTEROL SO4 2.5/IPRATROPIUM 0.5 INH SOL 3 ML VIAL.NEB. NEB PRN (13:03)
--- NOTE | 2018-09-22 13:03 | PN ---
Progress Note, Physician History of Present Illness: still very weak wbc trending down hand h remaining stable patient is depressed - Current Medication List Current Medications: Active Medications Al Hydroxide/Mg Hydroxide (Mylanta Oral Suspension -) 30 ml PO Q6H PRN PRN Reason: DYSPEPSIA Last Admin: 09/19/18 21:19 Dose: 30 ml Albuterol/Ipratropium (Duoneb -) 1 amp NEB Q6H PRN PRN Reason: SHORTNESS OF BREATH Last Admin: 09/21/18 20:50 Dose: 1 amp Docusate Sodium (Colace -) 100 mg PO TID [facility] Last Admin: 09/22/18 06:34 Dose: 100 mg Fluconazole (Diflucan -) 100 mg PO DAILY [facility] Last Admin: 09/22/18 09:53 Dose: 100 mg Heparin Sodium (Porcine) (Heparin -) 5,000 unit SQ BID [facility] Last Admin: 09/22/18 09:53 Dose: 5,000 unit Insulin Aspart (Novolog Vial Sliding Scale -) 1 vial SQ ACHS [facility]; Protocol Last Admin: 09/22/18 11:46 Dose: 2 unit Metoprolol Succinate (Toprol Xl -) 100 mg PO DAILY [facility] Last Admin: 09/20/18 10:21 Dose: 100 mg Potassium Chloride (K-Dur -) 10 meq PO BID [facility] Last Admin: 09/22/18 09:53 Dose: 10 meq Sucralfate (Carafate Oral Suspension -) 1 gm PO QID [facility] Last Admin: 09/22/18 09:54 Dose: 1 gm - Objective Vital Signs: Vital Signs Temperature 97.3 F L 09/22/18 09:00 Pulse Rate 99 H 09/22/18 09:00 Respiratory Rate 18 09/22/18 09:00 Blood Pressure 87/52 L 09/22/18 09:00 O2 Sat by Pulse Oximetry (%) 92 L 09/22/18 09:00 Constitutional: Yes: Calm, Other (depressed) Cardiovascular: Yes: Regular Rate and Rhythm Respiratory: Yes: Regular, CTA Bilaterally Gastrointestinal: Yes: Normal Bowel Sounds, Soft Genitourinary: Yes: Galarza Present Musculoskeletal: Yes: WNL Extremities: Yes: WNL Neurological: Yes: Alert, Oriented Psychiatric: Yes: Alert, Oriented Labs: CBC, BMP 09/22/18 06:00 09/22/18 06:00 INR, PTT INR 1.89 (0.83-1.09) H 09/20/18 05:50 Assessment/Plan patient is depressed says he cannot go on living like this i ahd a long talk wiht him and his continue current mgmt transfusion if needed family wants to talk to Might get psych involved as per the patient continue monitoring wbc nutrition transfusion if needed physio
--- NOTE | 2018-09-22 15:40 | PN ---
Progress Note, Physician - Current Medication List Current Medications: Active Medications Al Hydroxide/Mg Hydroxide (Mylanta Oral Suspension -) 30 ml PO Q6H PRN PRN Reason: DYSPEPSIA Last Admin: 09/19/18 21:19 Dose: 30 ml Albuterol/Ipratropium (Duoneb -) 1 amp NEB Q6H PRN PRN Reason: SHORTNESS OF BREATH Last Admin: 09/22/18 13:03 Dose: 1 amp Docusate Sodium (Colace -) 100 mg PO TID [facility] Last Admin: 09/22/18 14:32 Dose: Not Given Fluconazole (Diflucan -) 100 mg PO DAILY [facility] Last Admin: 09/22/18 09:53 Dose: 100 mg Heparin Sodium (Porcine) (Heparin -) 5,000 unit SQ BID [facility] Last Admin: 09/22/18 09:53 Dose: 5,000 unit Insulin Aspart (Novolog Vial Sliding Scale -) 1 vial SQ ACHS [facility]; Protocol Last Admin: 09/22/18 11:46 Dose: 2 unit Metoprolol Succinate (Toprol Xl -) 100 mg PO DAILY [facility] Last Admin: 09/20/18 10:21 Dose: 100 mg Potassium Chloride (K-Dur -) 10 meq PO BID [facility] Last Admin: 09/22/18 09:53 Dose: 10 meq Sucralfate (Carafate Oral Suspension -) 1 gm PO QID [facility] Last Admin: 09/22/18 14:32 Dose: 1 gm - Objective Vital Signs: Vital Signs Temperature 97.5 F L 09/22/18 14:15 Pulse Rate 105 H 09/22/18 14:15 Respiratory Rate 16 09/22/18 14:15 Blood Pressure 121/85 09/22/18 14:15 O2 Sat by Pulse Oximetry (%) 92 L 09/22/18 09:00 Labs: CBC, BMP 09/22/18 06:00 09/22/18 06:00 INR, PTT INR 1.89 (0.83-1.09) H 09/20/18 05:50 Problem List - Problems (1) Fever Code(s): R50.9 - FEVER, UNSPECIFIED (2) Jaundice Code(s): R17 - UNSPECIFIED JAUNDICE (3) Acute on chronic renal failure Code(s): N17.9 - ACUTE KIDNEY FAILURE, UNSPECIFIED; N18.9 - CHRONIC KIDNEY DISEASE, UNSPECIFIED Qualifiers: Acute renal failure type: unspecified Chronic kidney disease stage: stage 3 (moderate) Qualified Code(s): N17.9 - Acute kidney failure, unspecified; N18.3 - Chronic kidney disease, stage 3 (moderate) (4) Anemia Code(s): D64.9 - ANEMIA, UNSPECIFIED Qualifiers: Anemia type: due to chronic kidney disease Chronic kidney disease stage: stage 3 (moderate) Qualified Code(s): N18.3 - Chronic kidney disease, stage 3 (moderate); D63.1 - Anemia in chronic kidney disease (5) Diarrhea Code(s): R19.7 - DIARRHEA, UNSPECIFIED (6) HLD (hyperlipidemia) Code(s): E78.5 - HYPERLIPIDEMIA, UNSPECIFIED (7) Hypertension Code(s): I10 - ESSENTIAL (PRIMARY) HYPERTENSION Qualifiers: Hypertension type: other secondary hypertension Qualified Code(s): I15.8 - Other secondary hypertension (8) 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
--- NOTE | 2018-09-22 16:58 | CONSULT ---
Consult Consult Specialty:: UROLOGY Reason for Consultation:: Recurrent UTI - History of Present Illness Chief Complaint: Fatigue and loss appetite History of Present Illness: History of bladder cancer with mets to liver, on chemotherapy developed multiple sepsis, c/o fatigue loss appetite. he is on rahman catheter and draining well. his WBC 19.3 S.Creat 0.7 HB 8.1 O/E soft lax abd Plan : keep on rahman catheter - History Source History Provided By: Patient - Past Medical History Cardio/Vascular: Yes: HTN, Hyperlipdemia Hepatobiliary: Yes: Cirrhosis (by imaging) Renal/: Yes: Renal Failure, BPH, Cancer, Hematuria, UTI Endocrine: Yes: Diabetes Mellitus - Past Surgical History Past Surgical History: Yes: Stent (urinary), TURP - Alcohol/Substance Use Hx Alcohol Use: No History of Substance Use: reports: None - Smoking History Smoking history: Former smoker Have you smoked in the past 12 months: No Aproximately how many cigarettes per day: 0 If you are a former smoker, when did you quit?: 1989 - Social History Usual Living Arrangement: With Spouse ADL: Independent History of Recent Travel: No Home Medications - Allergies Allergies/Adverse Reactions: Allergies Allergy/AdvReac Type Severity Reaction Status Date / Time No Known Allergies Allergy Verified 09/04/18 21:02 - Home Medications Home Medications: Ambulatory Orders Finasteride [Proscar -] 5 mg PO DAILY 06/25/18 Metformin HCl [Glucophage] 1,000 mg PO BID 06/25/18 Metoprolol Succinate [Toprol XL -] 100 mg PO DAILY 06/25/18 Multivit-Min/FA/Lycopen/Lutein [Centrum Silver Men Tablet] 1 each PO DAILY 06/25 Nifedipine [Procardia Xl] 30 mg PO DAILY 06/25/18 Silodosin [Rapaflo] 8 mg PO DAILY 06/25/18 Zolpidem Tartrate [Ambien] 5 mg PO HS 06/25/18 Docusate Sodium [Colace -] 100 mg PO TID capsule 08/01/18 Insulin Sliding Scale [Novolog Vial Sliding Scale -] 1 vial SQ ACHS units 08/16 Potassium Chloride [K-Dur -] 10 meq PO BID #60 tablet.er 08/16/18 Amox-Tr/K Cl [Augmentin 875-125mg Tablet -] 1 tab PO BID@0800,1730 #14 tablet Linezolid [Zyvox (Restricted To Id) -] 600 mg PO BID #18 tablet 09/01/18 Family Disease History - Family Disease History Family Disease History: Other: Father (: 45: "heart problem"), Mother ( : 80: COPD), Brother (1, 80's, unclear cause), Son (1, healthy), Daughter ( 1, healthy) Physical Exam Vital Signs: Vital Signs Temperature 97.5 F L 09/22/18 14:15 Pulse Rate 105 H 09/22/18 14:15 Respiratory Rate 16 09/22/18 14:15 Blood Pressure 121/85 09/22/18 14:15 O2 Sat by Pulse Oximetry (%) 92 L 09/22/18 09:00 Labs: CBC, BMP 09/22/18 06:00 09/22/18 06:00
--- NOTE | 2018-09-22 18:25 | PN ---
Teaching Attending Note Name of Resident: Laura Mcleod ATTENDING PHYSICIAN STATEMENT I saw and evaluated the patient. I reviewed the resident's note and discussed the case with the resident. I agree with the resident's findings and plan as documented. ASSESSMENT AND PLAN: Widely metastatic bladder cancer--liver/bone mets, s/p gem/carbo x 3 cycles, recurrent UTIS, declining performance status ongoing discussions on palliative care Discussed with patient will rediscuss wth his continue supportive care Problem List - Problems (1) Bladder cancer Code(s): C67.9 - MALIGNANT NEOPLASM OF BLADDER, UNSPECIFIED
[2018-09-23] MEDS ORDERED: ALBUTEROL SO4 2.5/IPRATROPIUM 0.5 INH SOL 3 ML VIAL.NEB. NEB PRN (01:55)
[2018-09-23] MEDS ORDERED: ACETAMINOPHEN 325 MG TABLET (FP) PO ONE (02:00)
[2018-09-23] MEDS: INSULIN SLIDING SCALE (NOVOLOG) 1 VIAL SQ SCH ×4 (06:32→22:38)
[2018-09-23] MEDS: DOCUSATE SODIUM 100 MG CAPSULE (FP) PO SCH ×3 (06:33→22:36)
--- NOTE | 2018-09-23 09:14 | PN ---
Progress Note (short form) - Note Progress Note: Subjective: --No acute overnight events --Patient states he is not able to do much and would like to go home, I discussed with him a pallative care consultation and he states someone is looking into this for him. --Continues to complain of shortness of breath. Objective: Vital Signs - 24 hr 09/22/18 09/22/18 09/22/18 14:15 16:55 21:00 Temperature 97.5 F L 97.2 F L Pulse Rate 105 H 103 H Respiratory 16 18 18 Rate Blood Pressure 121/85 101/71 O2 Sat by Pulse 91 L Oximetry (%) 09/22/18 09/23/18 09/23/18 21:37 02:02 05:51 Temperature 97.6 F 97.8 F 97.3 F L Pulse Rate 112 H 103 H 92 H Respiratory 18 18 18 Rate Blood Pressure 105/72 125/65 103/77 O2 Sat by Pulse Oximetry (%) Gen: well appearing male sitting upright in NAD HEENT: NC/AT. OP Clear, MMM Cardiac: S1/S2 no murmurs appreciated. JVP 6cm Pulm: clear breath sounds bilaterally. No rales. Ext: WWP. No edema. Labs: Laboratory Results - last 24 hr 09/22/18 09/22/18 09/22/18 06:00 11:44 16:42 Neutrophils % (Manual) 94.8 H Band Neutrophils % 0.0 Lymphocytes % (Manual) 2.1 L D Monocytes % (Manual) 3 L Eosinophils % (Manual) 0.0 Basophils % (Manual) 0.0 Myelocytes % (Man) 0 Promyelocytes % (Man) 0 Blast Cells % (Manual) 0 Nucleated RBC % 0 Metamyelocytes 0 Hypochromia 1+ Platelet Estimate Normal Polychromasia 1+ Poikilocytosis 1+ Anisocytosis 1+ Microcytosis 1+ Macrocytosis 0 Target Cells 1+ POC Glucometer 189 170 09/22/18 09/23/18 22:01 06:22 Neutrophils % (Manual) Band Neutrophils % Lymphocytes % (Manual) Monocytes % (Manual) Eosinophils % (Manual) Basophils % (Manual) Myelocytes % (Man) Promyelocytes % (Man) Blast Cells % (Manual) Nucleated RBC % Metamyelocytes Hypochromia Platelet Estimate Polychromasia Poikilocytosis Anisocytosis Microcytosis Macrocytosis Target Cells POC Glucometer 148 160 IMP: 78 year old male with metastatic bladder cancer, recent pericardial effusion requiring IR drainage negative for malignancy/infection presents with fever/ chills followed by ID, cardiology consulted for evaluation. Patient with negative CT-PE and repeat echocardiogram without evidence of pericardial effusion. Telemetry with normal sinus rhythm with episodes of sinus tachycardia. Continue to treat infectious workup per primary team. Please repeat echocardiogram, given symptoms of shortness of breath, mild hypotension. Devendra Shepherd MD
[2018-09-23] MEDS: SUCRALFATE 1 GM/10 ML UNIT DOSE CUPS PO SCH ×4 (09:16→22:36)
[2018-09-23] MEDS: POTASSIUM CHLORIDE TABS 10 MEQ TABLET.ER (FP) PO SCH ×2 (09:16→22:36)
[2018-09-23] MEDS: FLUCONAZOLE 100 MG TABLET (UD) PO SCH (09:17)
[2018-09-23] MEDS: HEPARIN NA (PORCINE) 5,000 UNITS/ML 1ML VIAL SQ SCH ×2 (09:17→22:37)
[2018-09-23] MEDS: ALBUTEROL SO4 2.5/IPRATROPIUM 0.5 INH SOL 3 ML VIAL.NEB. NEB PRN (13:22)
--- NOTE | 2018-09-23 13:35 | PN ---
Progress Note, Physician History of Present Illness: Pt seen and examined. States he is not eating, has no appetite. Denies having any other specific complaints. He is depressed and weak. - Current Medication List Current Medications: Active Medications Al Hydroxide/Mg Hydroxide (Mylanta Oral Suspension -) 30 ml PO Q6H PRN PRN Reason: DYSPEPSIA Last Admin: 09/19/18 21:19 Dose: 30 ml Albuterol/Ipratropium (Duoneb -) 1 amp NEB Q6H PRN PRN Reason: SHORTNESS OF BREATH Last Admin: 09/23/18 13:22 Dose: 1 amp Albuterol/Ipratropium (Duoneb -) 1 amp NEB Q6H PRN PRN Reason: SHORT OF BREATH/WHEEZING Docusate Sodium (Colace -) 100 mg PO TID [facility] Last Admin: 09/23/18 06:33 Dose: Not Given Fluconazole (Diflucan -) 100 mg PO DAILY [facility] Last Admin: 09/23/18 09:17 Dose: 100 mg Heparin Sodium (Porcine) (Heparin -) 5,000 unit SQ BID [facility] Last Admin: 09/23/18 09:17 Dose: 5,000 unit Insulin Aspart (Novolog Vial Sliding Scale -) 1 vial SQ ACHS [facility]; Protocol Last Admin: 09/23/18 12:02 Dose: 4 unit Metoprolol Succinate (Toprol Xl -) 100 mg PO DAILY [facility] Last Admin: 09/20/18 10:21 Dose: 100 mg Potassium Chloride (K-Dur -) 10 meq PO BID [facility] Last Admin: 09/23/18 09:16 Dose: 10 meq Sucralfate (Carafate Oral Suspension -) 1 gm PO QID [facility] Last Admin: 09/23/18 09:16 Dose: 1 gm - Objective Vital Signs: Vital Signs Temperature 97.9 F 09/23/18 09:53 Pulse Rate 97 H 09/23/18 09:53 Respiratory Rate 16 09/23/18 09:53 Blood Pressure 109/76 09/23/18 09:53 O2 Sat by Pulse Oximetry (%) 92 L 09/23/18 10:00 Constitutional: Yes: No Distress, Calm Cardiovascular: Yes: Regular Rate and Rhythm Respiratory: Yes: Regular Gastrointestinal: Yes: Normal Bowel Sounds, Soft Extremities: Yes: WNL Neurological: Yes: Alert Psychiatric: Yes: Other (depressed) Labs: CBC, BMP 09/22/18 06:00 09/22/18 06:00 INR, PTT INR 1.89 (0.83-1.09) H 09/20/18 05:50 Problem List - Problems (1) Bladder cancer Code(s): C67.9 - MALIGNANT NEOPLASM OF BLADDER, UNSPECIFIED (2) KARTHIKEYAN (acute kidney injury) Code(s): N17.9 - ACUTE KIDNEY FAILURE, UNSPECIFIED (3) BPH (benign prostatic hyperplasia) Code(s): N40.0 - BENIGN PROSTATIC HYPERPLASIA WITHOUT LOWER URINRY TRACT SYMP Qualifiers: Lower urinary tract symptom detail: unspecified (4) Diabetes Code(s): E11.9 - TYPE 2 DIABETES MELLITUS WITHOUT COMPLICATIONS Qualifiers: Diabetes mellitus type: type 2 Diabetes mellitus complication status: with kidney complications Chronic kidney disease stage: stage 2 (mild) (5) HLD (hyperlipidemia) Code(s): E78.5 - HYPERLIPIDEMIA, UNSPECIFIED (6) Hydronephrosis Code(s): N13.30 - UNSPECIFIED HYDRONEPHROSIS (7) 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 -- Heme/Oncology f/u pt currently afebrile, without acute distress
--- NOTE | 2018-09-23 19:05 | PN ---
Progress Note, Physician Chief Complaint: Metastatic bladder ca History of Present Illness: No overnight events - Current Medication List Current Medications: Active Medications Al Hydroxide/Mg Hydroxide (Mylanta Oral Suspension -) 30 ml PO Q6H PRN PRN Reason: DYSPEPSIA Last Admin: 09/19/18 21:19 Dose: 30 ml Albuterol/Ipratropium (Duoneb -) 1 amp NEB Q6H PRN PRN Reason: SHORTNESS OF BREATH Last Admin: 09/23/18 13:22 Dose: 1 amp Albuterol/Ipratropium (Duoneb -) 1 amp NEB Q6H PRN PRN Reason: SHORT OF BREATH/WHEEZING Docusate Sodium (Colace -) 100 mg PO TID [facility] Last Admin: 09/23/18 13:58 Dose: Not Given Fluconazole (Diflucan -) 100 mg PO DAILY [facility] Last Admin: 09/23/18 09:17 Dose: 100 mg Heparin Sodium (Porcine) (Heparin -) 5,000 unit SQ BID [facility] Last Admin: 09/23/18 09:17 Dose: 5,000 unit Insulin Aspart (Novolog Vial Sliding Scale -) 1 vial SQ ACHS [facility]; Protocol Last Admin: 09/23/18 17:01 Dose: Not Given Metoprolol Succinate (Toprol Xl -) 100 mg PO DAILY [facility] Last Admin: 09/20/18 10:21 Dose: 100 mg Potassium Chloride (K-Dur -) 10 meq PO BID [facility] Last Admin: 09/23/18 09:16 Dose: 10 meq Sucralfate (Carafate Oral Suspension -) 1 gm PO QID [facility] Last Admin: 09/23/18 17:01 Dose: 1 gm - Objective Vital Signs: Vital Signs Temperature 97.3 F L 09/23/18 14:00 Pulse Rate 109 H 09/23/18 14:00 Respiratory Rate 18 09/23/18 14:00 Blood Pressure 122/78 09/23/18 14:00 O2 Sat by Pulse Oximetry (%) 92 L 09/23/18 10:00 Constitutional: Yes: Calm Cardiovascular: Yes: WNL, Regular Rate and Rhythm Respiratory: Yes: WNL Extremities: Yes: WNL Labs: CBC, BMP 09/22/18 06:00 09/22/18 06:00 INR, PTT INR 1.89 (0.83-1.09) H 09/20/18 05:50 Problem List - Problems (1) Bladder cancer Assessment/Plan: Metastatic with involvement of liver and bones s/p carbo/gem x 3 cycles c/b recurrent UTIs Hgb stable, WBC decreasing on diflucan Has had declining performance status Pall care evaluation Code(s): C67.9 - MALIGNANT NEOPLASM OF BLADDER, UNSPECIFIED
--- NOTE | 2018-09-23 21:27 | PN ---
Progress Note, Physician - Current Medication List Current Medications: Active Medications Al Hydroxide/Mg Hydroxide (Mylanta Oral Suspension -) 30 ml PO Q6H PRN PRN Reason: DYSPEPSIA Last Admin: 09/19/18 21:19 Dose: 30 ml Albuterol/Ipratropium (Duoneb -) 1 amp NEB Q6H PRN PRN Reason: SHORTNESS OF BREATH Last Admin: 09/23/18 13:22 Dose: 1 amp Albuterol/Ipratropium (Duoneb -) 1 amp NEB Q6H PRN PRN Reason: SHORT OF BREATH/WHEEZING Docusate Sodium (Colace -) 100 mg PO TID [facility] Last Admin: 09/23/18 13:58 Dose: Not Given Fluconazole (Diflucan -) 100 mg PO DAILY [facility] Last Admin: 09/23/18 09:17 Dose: 100 mg Heparin Sodium (Porcine) (Heparin -) 5,000 unit SQ BID [facility] Last Admin: 09/23/18 09:17 Dose: 5,000 unit Insulin Aspart (Novolog Vial Sliding Scale -) 1 vial SQ ACHS [facility]; Protocol Last Admin: 09/23/18 17:01 Dose: Not Given Metoprolol Succinate (Toprol Xl -) 100 mg PO DAILY [facility] Last Admin: 09/20/18 10:21 Dose: 100 mg Potassium Chloride (K-Dur -) 10 meq PO BID [facility] Last Admin: 09/23/18 09:16 Dose: 10 meq Sucralfate (Carafate Oral Suspension -) 1 gm PO QID [facility] Last Admin: 09/23/18 17:01 Dose: 1 gm - Objective Vital Signs: Vital Signs Temperature 98.1 F 09/23/18 18:00 Pulse Rate 126 H 09/23/18 18:00 Respiratory Rate 18 09/23/18 18:00 Blood Pressure 123/81 09/23/18 18:00 O2 Sat by Pulse Oximetry (%) 92 L 09/23/18 10:00 Labs: CBC, BMP 09/22/18 06:00 09/22/18 06:00 INR, PTT INR 1.89 (0.83-1.09) H 09/20/18 05:50 Problem List - Problems (1) Fever Code(s): R50.9 - FEVER, UNSPECIFIED (2) Jaundice Code(s): R17 - UNSPECIFIED JAUNDICE (3) Acute on chronic renal failure Code(s): N17.9 - ACUTE KIDNEY FAILURE, UNSPECIFIED; N18.9 - CHRONIC KIDNEY DISEASE, UNSPECIFIED Qualifiers: Acute renal failure type: unspecified Chronic kidney disease stage: stage 3 (moderate) Qualified Code(s): N17.9 - Acute kidney failure, unspecified; N18.3 - Chronic kidney disease, stage 3 (moderate) (4) Anemia Code(s): D64.9 - ANEMIA, UNSPECIFIED Qualifiers: Anemia type: due to chronic kidney disease Chronic kidney disease stage: stage 3 (moderate) Qualified Code(s): N18.3 - Chronic kidney disease, stage 3 (moderate); D63.1 - Anemia in chronic kidney disease (5) Diarrhea Code(s): R19.7 - DIARRHEA, UNSPECIFIED (6) HLD (hyperlipidemia) Code(s): E78.5 - HYPERLIPIDEMIA, UNSPECIFIED (7) Hypertension Code(s): I10 - ESSENTIAL (PRIMARY) HYPERTENSION Qualifiers: Hypertension type: other secondary hypertension Qualified Code(s): I15.8 - Other secondary hypertension (8) 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
[2018-09-23] MEDS: ACETAMINOPHEN 325 MG TABLET (FP) PO PRN (22:39)
[2018-09-23] MEDS ORDERED: ZOLPIDEM TARTRATE 5 MG TABLET PO ONE (23:45)
[2018-09-24] MEDS: DOCUSATE SODIUM 100 MG CAPSULE (FP) PO SCH ×4 (05:24→21:54)
[2018-09-24] MEDS: INSULIN SLIDING SCALE (NOVOLOG) 1 VIAL SQ SCH ×4 (06:42→21:54)
[2018-09-24 09:12] LABS: HEMATOCRIT 28.3 % (35.4-49); HEMOGLOBIN 9.3 GM/dL (11.7-16.9); MCH 23.6 pg (25.7-33.7); MCHC 32.8 g/dl (32.0-35.9); MEAN CELL VOLUME 71.7 fl (80-96); MEAN PLT VOLUME 9.5 fl (7.5-11.1); PLATELET COUNT 261 K/MM3 (134-434); RBC 3.94 M/mm3 (4.00-5.60); RDW 28.3 % (11.9-15.9); WHITE BLOOD COUNT 12.1 K/mm3 (4.0-10.0)
[2018-09-24 09:40] LABS: ANION GAP 12 MMOL/L (8-16); BLOOD UREA NITROGEN 19 mg/dL (7-18); CHLORIDE 110 mmol/L (98-107); CO2 16 mmol/L (21-32); CREATININE 0.6 mg/dL (0.55-1.3); GLUCOSE,RANDOM 125 mg/dL (74-106); POTASSIUM 4.9 mmol/L (3.5-5.1); SODIUM 139 mmol/L (136-145)
[2018-09-24 10:10] LABS: CALCIUM 6.9 mg/dL (8.5-10.1)
[2018-09-24] MEDS: SUCRALFATE 1 GM/10 ML UNIT DOSE CUPS PO SCH ×4 (11:23→21:53)
[2018-09-24] MEDS: FLUCONAZOLE 100 MG TABLET (UD) PO SCH (11:23)
[2018-09-24] MEDS: POTASSIUM CHLORIDE TABS 10 MEQ TABLET.ER (FP) PO SCH ×2 (11:24→21:53)
--- NOTE | 2018-09-24 11:51 | PN ---
Progress Note (short form) - Note Progress Note: Subjective: --No acute overnight events Objective: Vital Signs 09/24/18 05:46 Temperature 97.3 F L Pulse Rate 89 Respiratory 20 Rate Blood Pressure 121/89 Gen: elderly, frail male sitting upright breathing comfortably on nasal cannula HEENT: NC/AT. OP Clear, MMM Cardiac: S1/S2 no murmurs appreciated. Pulm: clear breath sounds bilaterally. No rales. Ext: WWP. No edema. Labs: Abnormal Lab Results 09/20/18 09/24/18 09/24/18 09:15 08:20 08:20 WBC 12.1 H RBC 3.94 L Hgb 9.3 L Hct 28.3 L MCV 71.7 L MCH 23.6 L RDW 28.3 H Absolute Neuts (auto) 8.2 H Chloride 110 H Carbon Dioxide 16 L BUN 19 H Random Glucose 125 H Calcium 6.9 L* Crossmatch See Detail IMP: 78 year old male with metastatic bladder cancer, recent pericardial effusion requiring IR drainage negative for malignancy/infection presents with fever/ chills followed by ID, cardiology consulted for evaluation. CT-PE negative for PE. Continue to treat infectious workup per primary team. Devendra Shepherd MD
--- NOTE | 2018-09-24 12:43 | PN ---
Progress Note, Physician History of Present Illness: Pt alert, appears less weak and less depressed. He remains afebrile, without specific complaints. - Current Medication List Current Medications: Active Medications Acetaminophen (Tylenol -) 650 mg PO Q6H PRN PRN Reason: PAIN LEVEL 1-5 Last Admin: 09/23/18 22:39 Dose: 650 mg Al Hydroxide/Mg Hydroxide (Mylanta Oral Suspension -) 30 ml PO Q6H PRN PRN Reason: DYSPEPSIA Last Admin: 09/19/18 21:19 Dose: 30 ml Albuterol/Ipratropium (Duoneb -) 1 amp NEB Q6H PRN PRN Reason: SHORTNESS OF BREATH Last Admin: 09/23/18 13:22 Dose: 1 amp Docusate Sodium (Colace -) 100 mg PO TID [facility] Last Admin: 09/24/18 06:43 Dose: Not Given Fluconazole (Diflucan -) 100 mg PO DAILY [facility] Last Admin: 09/24/18 11:23 Dose: 100 mg Insulin Aspart (Novolog Vial Sliding Scale -) 1 vial SQ ACHS [facility]; Protocol Last Admin: 09/24/18 11:29 Dose: Not Given Metoprolol Succinate (Toprol Xl -) 100 mg PO DAILY [facility] Last Admin: 09/24/18 11:24 Dose: 100 mg Potassium Chloride (K-Dur -) 10 meq PO BID [facility] Last Admin: 09/24/18 11:24 Dose: 10 meq Sucralfate (Carafate Oral Suspension -) 1 gm PO QID [facility] Last Admin: 09/24/18 11:23 Dose: 1 gm - Objective Vital Signs: Vital Signs Temperature 97.3 F L 09/24/18 05:46 Pulse Rate 89 09/24/18 05:46 Respiratory Rate 20 09/24/18 05:46 Blood Pressure 121/89 09/24/18 05:46 O2 Sat by Pulse Oximetry (%) 93 L 09/23/18 22:00 Constitutional: Yes: No Distress, Calm Cardiovascular: Yes: Regular Rate and Rhythm Respiratory: Yes: Regular Gastrointestinal: Yes: Normal Bowel Sounds, Soft Extremities: Yes: WNL Neurological: Yes: Alert, Oriented Labs: CBC, BMP 09/24/18 08:20 09/24/18 08:20 INR, PTT INR 1.89 (0.83-1.09) H 09/20/18 05:50 Problem List - Problems (1) Bladder cancer Code(s): C67.9 - MALIGNANT NEOPLASM OF BLADDER, UNSPECIFIED (2) KARTHIKEYAN (acute kidney injury) Code(s): N17.9 - ACUTE KIDNEY FAILURE, UNSPECIFIED (3) BPH (benign prostatic hyperplasia) Code(s): N40.0 - BENIGN PROSTATIC HYPERPLASIA WITHOUT LOWER URINRY TRACT SYMP Qualifiers: Lower urinary tract symptom detail: unspecified (4) Diabetes Code(s): E11.9 - TYPE 2 DIABETES MELLITUS WITHOUT COMPLICATIONS Qualifiers: Diabetes mellitus type: type 2 Diabetes mellitus complication status: with kidney complications Chronic kidney disease stage: stage 2 (mild) (5) HLD (hyperlipidemia) Code(s): E78.5 - HYPERLIPIDEMIA, UNSPECIFIED (6) Hydronephrosis Code(s): N13.30 - UNSPECIFIED HYDRONEPHROSIS (7) 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
[2018-09-24 13:00] LABS: ANISOCYTOSIS 2+; MACROCYTOSIS 0; PLATELET ESTIMATE NORMAL; TARGET CELLS 1+; TEAR DROP CELLS 1+
--- NOTE | 2018-09-24 16:44 | PN ---
Progress Note (short form) - Note Progress Note: UROLOGY NOTE. 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 bun/creat. normal, rahman-payent,urine is clear, abd. is soft, n /t bs++ Plan-d/c rahman in am and give tov.
--- NOTE | 2018-09-24 17:04 | PN ---
Progress Note, Physician History of Present Illness: Long d/w pt and his about hospice Pt admits to depression - Current Medication List Current Medications: Active Medications Acetaminophen (Tylenol -) 650 mg PO Q6H PRN PRN Reason: PAIN LEVEL 1-5 Last Admin: 09/23/18 22:39 Dose: 650 mg Al Hydroxide/Mg Hydroxide (Mylanta Oral Suspension -) 30 ml PO Q6H PRN PRN Reason: DYSPEPSIA Last Admin: 09/19/18 21:19 Dose: 30 ml Albuterol/Ipratropium (Duoneb -) 1 amp NEB Q6H PRN PRN Reason: SHORTNESS OF BREATH Last Admin: 09/23/18 13:22 Dose: 1 amp Docusate Sodium (Colace -) 100 mg PO TID [facility] Last Admin: 09/24/18 15:08 Dose: Not Given Fluconazole (Diflucan -) 100 mg PO DAILY [facility] Last Admin: 09/24/18 11:23 Dose: 100 mg Insulin Aspart (Novolog Vial Sliding Scale -) 1 vial SQ ACHS [facility]; Protocol Last Admin: 09/24/18 11:29 Dose: Not Given Metoprolol Succinate (Toprol Xl -) 100 mg PO DAILY [facility] Last Admin: 09/24/18 11:24 Dose: 100 mg Potassium Chloride (K-Dur -) 10 meq PO BID [facility] Last Admin: 09/24/18 11:24 Dose: 10 meq Sucralfate (Carafate Oral Suspension -) 1 gm PO QID [facility] Last Admin: 09/24/18 15:08 Dose: 1 gm - Objective Vital Signs: Vital Signs Temperature 97.8 F 09/24/18 13:55 Pulse Rate 88 09/24/18 13:55 Respiratory Rate 18 09/24/18 13:55 Blood Pressure 130/93 09/24/18 13:55 O2 Sat by Pulse Oximetry (%) 90 L 09/24/18 10:00 Constitutional: Yes: Pallor Neck: Yes: WNL, Supple Cardiovascular: Yes: WNL, Regular Rate and Rhythm Respiratory: Yes: WNL, Regular Gastrointestinal: Yes: WNL, Normal Bowel Sounds, Soft Labs: CBC, BMP 09/24/18 08:20 09/24/18 08:20 INR, PTT INR 1.89 (0.83-1.09) H 09/20/18 05:50 Problem List - Problems (1) 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 Assessment/Plan: 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 Pt is considering hospice and DNR Poor prognosis Will get Pt eval Pt to have rahman removed in am and trial of voiding Code(s): C79.9 - SECONDARY MALIGNANT NEOPLASM OF UNSPECIFIED SITE; C67.9 - MALIGNANT NEOPLASM OF BLADDER, UNSPECIFIED (2) Fever Assessment/Plan: Urine culture (+) for yeast Cont PO diflucan Code(s): R50.9 - FEVER, UNSPECIFIED (3) Jaundice Assessment/Plan: Resolved Pt w/ h/o liver mets Code(s): R17 - UNSPECIFIED JAUNDICE (4) Acute on chronic renal failure Assessment/Plan: Cont to monitor electrolytes Code(s): N17.9 - ACUTE KIDNEY FAILURE, UNSPECIFIED; N18.9 - CHRONIC KIDNEY DISEASE, UNSPECIFIED Qualifiers: Acute renal failure type: unspecified Chronic kidney disease stage: stage 3 (moderate) Qualified Code(s): N17.9 - Acute kidney failure, unspecified; N18.3 - Chronic kidney disease, stage 3 (moderate) (5) Anemia Assessment/Plan: Due to chronic dz/malignancy Code(s): D64.9 - ANEMIA, UNSPECIFIED Qualifiers: Anemia type: due to chronic kidney disease Chronic kidney disease stage: stage 3 (moderate) Qualified Code(s): N18.3 - Chronic kidney disease, stage 3 (moderate); D63.1 - Anemia in chronic kidney disease (6) Diarrhea Assessment/Plan: Resolved Code(s): R19.7 - DIARRHEA, UNSPECIFIED (7) HLD (hyperlipidemia) Code(s): E78.5 - HYPERLIPIDEMIA, UNSPECIFIED (8) Hypertension Code(s): I10 - ESSENTIAL (PRIMARY) HYPERTENSION Qualifiers: Hypertension type: other secondary hypertension Qualified Code(s): I15.8 - Other secondary hypertension
--- NOTE | 2018-09-24 20:49 | PN ---
Progress Note, Physician Chief Complaint: Metastatic bladder ca History of Present Illness: More awake today. Denies pain but feels very tired. Appetite poor. Considering hospice. - Current Medication List Current Medications: Active Medications Acetaminophen (Tylenol -) 650 mg PO Q6H PRN PRN Reason: PAIN LEVEL 1-5 Last Admin: 09/23/18 22:39 Dose: 650 mg Al Hydroxide/Mg Hydroxide (Mylanta Oral Suspension -) 30 ml PO Q6H PRN PRN Reason: DYSPEPSIA Last Admin: 09/19/18 21:19 Dose: 30 ml Albuterol/Ipratropium (Duoneb -) 1 amp NEB Q6H PRN PRN Reason: SHORTNESS OF BREATH Last Admin: 09/23/18 13:22 Dose: 1 amp Docusate Sodium (Colace -) 100 mg PO TID [facility] Last Admin: 09/24/18 15:08 Dose: Not Given Fluconazole (Diflucan -) 100 mg PO DAILY [facility] Last Admin: 09/24/18 11:23 Dose: 100 mg Insulin Aspart (Novolog Vial Sliding Scale -) 1 vial SQ ACHS [facility]; Protocol Last Admin: 09/24/18 17:25 Dose: Not Given Metoprolol Succinate (Toprol Xl -) 100 mg PO DAILY [facility] Last Admin: 09/24/18 11:24 Dose: 100 mg Potassium Chloride (K-Dur -) 10 meq PO BID [facility] Last Admin: 09/24/18 11:24 Dose: 10 meq Sucralfate (Carafate Oral Suspension -) 1 gm PO QID [facility] Last Admin: 09/24/18 18:32 Dose: 1 gm - Objective Vital Signs: Vital Signs Temperature 97.4 F L 09/24/18 16:35 Pulse Rate 87 09/24/18 16:35 Respiratory Rate 20 09/24/18 16:35 Blood Pressure 137/98 09/24/18 16:35 O2 Sat by Pulse Oximetry (%) 90 L 09/24/18 10:00 Constitutional: Yes: No Distress Eyes: Yes: Conjunctiva Clear Cardiovascular: Yes: WNL, Regular Rate and Rhythm Respiratory: Yes: WNL, CTA Bilaterally Gastrointestinal: Yes: WNL Genitourinary: Yes: Galarza Present (clear urine in bag) Edema: No Labs: CBC, BMP 09/24/18 08:20 09/24/18 08:20 INR, PTT INR 1.89 (0.83-1.09) H 09/20/18 05:50 Problem List - Problems (1) Bladder cancer Assessment/Plan: Metastatic with involvement of liver and bones s/p carbo/gem x 3 cycles c/b recurrent UTIs Hgb stable, WBC decreasing on diflucan Has had declining performance status, generalized weakness Pall care evaluation, pt is considering hospice Code(s): C67.9 - MALIGNANT NEOPLASM OF BLADDER, UNSPECIFIED
[2018-09-24] MEDS: ZOLPIDEM TARTRATE 5 MG TABLET PO PRN (21:54)
[2018-09-25] MEDS: DOCUSATE SODIUM 100 MG CAPSULE (FP) PO SCH ×3 (06:27→21:06)
[2018-09-25] MEDS: INSULIN SLIDING SCALE (NOVOLOG) 1 VIAL SQ SCH ×4 (06:28→21:06)
[2018-09-25 06:55] LABS: HEMATOCRIT 27.6 % (35.4-49); HEMOGLOBIN 8.5 GM/dL (11.7-16.9); MCH 21.9 pg (25.7-33.7); MEAN CELL VOLUME 70.6 fl (80-96); MEAN PLT VOLUME 9.4 fl (7.5-11.1); PLATELET COUNT 251 K/MM3 (134-434); RDW 28.1 % (11.9-15.9); WHITE BLOOD COUNT 13.3 K/mm3 (4.0-10.0)
[2018-09-25 08:10] LABS: ALBUMIN 1.4 g/dl (3.4-5.0); ALK PHOS 908 U/L (45-117); ANION GAP 10 MMOL/L (8-16); BILIRUBIN,TOTAL 5.4 mg/dL (0.2-1); BLOOD UREA NITROGEN 17 mg/dL (7-18); CHLORIDE 108 mmol/L (98-107); CO2 17 mmol/L (21-32); CREATININE 0.5 mg/dL (0.55-1.3); GLUCOSE,RANDOM 115 mg/dL (74-106); POTASSIUM 4.8 mmol/L (3.5-5.1); SGOT/AST 52 U/L (15-37); SGPT/ALT 30 U/L (13-61); SODIUM 136 mmol/L (136-145); TOT PROT 5.4 g/dl (6.4-8.2)
[2018-09-25 08:14] LABS: CALCIUM 6.6 mg/dL (8.5-10.1)
--- NOTE | 2018-09-25 08:43 | PN ---
Progress Note, Physician Chief Complaint: seen and examined No acute distress Denies chest pain or SOB - Current Medication List Current Medications: Active Medications Acetaminophen (Tylenol -) 650 mg PO Q6H PRN PRN Reason: PAIN LEVEL 1-5 Last Admin: 09/23/18 22:39 Dose: 650 mg Al Hydroxide/Mg Hydroxide (Mylanta Oral Suspension -) 30 ml PO Q6H PRN PRN Reason: DYSPEPSIA Last Admin: 09/19/18 21:19 Dose: 30 ml Docusate Sodium (Colace -) 100 mg PO TID [facility] Last Admin: 09/25/18 06:27 Dose: Not Given Fluconazole (Diflucan -) 100 mg PO DAILY [facility] Last Admin: 09/24/18 11:23 Dose: 100 mg Insulin Aspart (Novolog Vial Sliding Scale -) 1 vial SQ ACHS [facility]; Protocol Last Admin: 09/25/18 06:28 Dose: Not Given Metoprolol Succinate (Toprol Xl -) 100 mg PO DAILY [facility] Last Admin: 09/24/18 11:24 Dose: 100 mg Potassium Chloride (K-Dur -) 10 meq PO BID [facility] Last Admin: 09/24/18 21:53 Dose: 10 meq Sucralfate (Carafate Oral Suspension -) 1 gm PO QID [facility] Last Admin: 09/24/18 21:53 Dose: 1 gm Zolpidem Tartrate (Ambien -) 5 mg PO HS PRN PRN Reason: INSOMNIA Last Admin: 09/24/18 21:54 Dose: 5 mg - Objective Vital Signs: Vital Signs Temperature 98.0 F 09/25/18 05:54 Pulse Rate 91 H 09/25/18 05:54 Respiratory Rate 20 09/25/18 05:54 Blood Pressure 124/77 09/25/18 05:54 O2 Sat by Pulse Oximetry (%) 90 L 09/24/18 21:00 Constitutional: Yes: No Distress Eyes: Yes: Conjunctiva Clear Cardiovascular: Yes: Regular Rate and Rhythm Respiratory: Yes: Other (clear anteriorly) Gastrointestinal: Yes: Soft, Abdomen, Obese Edema: No Neurological: Yes: Alert Labs: CBC, BMP 09/25/18 05:45 09/25/18 05:45 INR, PTT INR 1.89 (0.83-1.09) H 09/20/18 05:50 Assessment/Plan Metastatic CA Pericardial effusion, negative cytology, resolved. REC: Hemodynamically stable at this time. Further w/u as per PMD/Oncology DVT prophylaxis as per PMD and Oncology.
[2018-09-25] MEDS: FLUCONAZOLE 100 MG TABLET (UD) PO SCH (09:55)
[2018-09-25] MEDS: SUCRALFATE 1 GM/10 ML UNIT DOSE CUPS PO SCH ×4 (09:55→21:05)
[2018-09-25] MEDS: POTASSIUM CHLORIDE TABS 10 MEQ TABLET.ER (FP) PO SCH ×2 (09:55→21:05)
[2018-09-25 11:13] LABS: ANISOCYTOSIS 2+; MACROCYTOSIS 2+; PLATELET ESTIMATE NORMAL; TEAR DROP CELLS 1+
--- NOTE | 2018-09-25 11:41 | CON.PSY ---
Psychiatry Consult Chief Complaint: 78 year old mmale with severe Cardiac Condition and Ca Prostate. seen for Psych eval for depression. Symptoms: reports: Depressed Mood - Previous Psychiatric Treatment Outpatient: None Inpatient: None - Previous Substance Abuse Treatment Outpatient: None Inpatient: None - Current Medications Current Medications: Active Medications Acetaminophen (Tylenol -) 650 mg PO Q6H PRN PRN Reason: PAIN LEVEL 1-5 Last Admin: 09/23/18 22:39 Dose: 650 mg Al Hydroxide/Mg Hydroxide (Mylanta Oral Suspension -) 30 ml PO Q6H PRN PRN Reason: DYSPEPSIA Last Admin: 09/19/18 21:19 Dose: 30 ml Docusate Sodium (Colace -) 100 mg PO TID [facility] Last Admin: 09/25/18 06:27 Dose: Not Given Fluconazole (Diflucan -) 100 mg PO DAILY [facility] Last Admin: 09/25/18 09:55 Dose: 100 mg Insulin Aspart (Novolog Vial Sliding Scale -) 1 vial SQ ACHS [facility]; Protocol Last Admin: 09/25/18 06:28 Dose: Not Given Metoprolol Succinate (Toprol Xl -) 100 mg PO DAILY [facility] Last Admin: 09/25/18 09:55 Dose: 100 mg Potassium Chloride (K-Dur -) 10 meq PO BID [facility] Last Admin: 09/25/18 09:55 Dose: 10 meq Sucralfate (Carafate Oral Suspension -) 1 gm PO QID [facility] Last Admin: 09/25/18 09:55 Dose: 1 gm Zolpidem Tartrate (Ambien -) 5 mg PO HS PRN PRN Reason: INSOMNIA Last Admin: 09/24/18 21:54 Dose: 5 mg - Allergies Allergies: Allergies Allergy/AdvReac Type Severity Reaction Status Date / Time No Known Allergies Allergy Verified 09/04/18 21:02 - Current Living Status Usual Living Arrangement: With Spouse - Current Mental Status Evaluation Appearance: Disheveled Attitude: Cooperative - Affect Affect: Constrictive Appropriateness: Appropriate to Content - Mood Mood: Depressed - Speech/Language Expressive: Coherent - Psychomotor Activity Psychomotor Activity: Slowed - Thought Process Thought Process: Intact - Thought Content Hallucinations: Absent Delusions: Absent - Self Perception Self Perception: No Impairment - Cognition Attention: Alert Orientation: Time Memory, Immediate Recall: Intact Memory, Short Term: 2/3 Memory, Remote with Promptin/3 - Concentration Serial Sevens Intact: No Simple Calculations Intact: Yes - Abstraction Proverb Interpretation: Intact Judgement: Intact - Insight Insight: Intact - Impulse Control Impulse Control: Good Control - Suicidal Ideation Suicidal Ideation: No - Homicidal Ideation Homicidal Ideation: No Assessment/Plan 1) remeronm 15mg po hs for depression.
[2018-09-25] MEDS: ACETAMINOPHEN 325 MG TABLET (FP) PO PRN ×2 (12:51→21:06)
--- NOTE | 2018-09-25 18:07 | PN ---
Progress Note (short form) - Note Progress Note: PAtient seen and examined Discussed with and patient Recommended palliative care Ongoing discussions regarding goals of care DNR/DNI Problem List - Problems (1) Bladder cancer Code(s): C67.9 - MALIGNANT NEOPLASM OF BLADDER, UNSPECIFIED
--- NOTE | 2018-09-25 21:07 | PN ---
Progress Note, Physician History of Present Illness: Pt has agreed to DNR Pt seems more depressed - Current Medication List Current Medications: Active Medications Acetaminophen (Tylenol -) 650 mg PO Q6H PRN PRN Reason: PAIN LEVEL 1-5 Last Admin: 09/25/18 21:06 Dose: 650 mg Al Hydroxide/Mg Hydroxide (Mylanta Oral Suspension -) 30 ml PO Q6H PRN PRN Reason: DYSPEPSIA Last Admin: 09/19/18 21:19 Dose: 30 ml Docusate Sodium (Colace -) 100 mg PO TID [facility] Last Admin: 09/25/18 21:06 Dose: Not Given Fluconazole (Diflucan -) 100 mg PO DAILY [facility] Last Admin: 09/25/18 09:55 Dose: 100 mg Insulin Aspart (Novolog Vial Sliding Scale -) 1 vial SQ ACHS [facility]; Protocol Last Admin: 09/25/18 21:06 Dose: 2 unit Metoprolol Succinate (Toprol Xl -) 100 mg PO DAILY [facility] Last Admin: 09/25/18 09:55 Dose: 100 mg Mirtazapine (Remeron -) 15 mg PO HS [facility] Potassium Chloride (K-Dur -) 10 meq PO BID [facility] Last Admin: 09/25/18 21:05 Dose: 10 meq Sucralfate (Carafate Oral Suspension -) 1 gm PO QID [facility] Last Admin: 09/25/18 21:05 Dose: 1 gm Zolpidem Tartrate (Ambien -) 5 mg PO HS PRN PRN Reason: INSOMNIA Last Admin: 09/24/18 21:54 Dose: 5 mg - Objective Vital Signs: Vital Signs Temperature 97.4 F L 09/25/18 18:00 Pulse Rate 77 09/25/18 18:00 Respiratory Rate 19 09/25/18 18:00 Blood Pressure 132/86 09/25/18 18:00 O2 Sat by Pulse Oximetry (%) 90 L 09/25/18 09:00 Constitutional: Yes: Pallor Eyes: Yes: Sclera Icterus Neck: Yes: WNL, Supple Cardiovascular: Yes: WNL, Regular Rate and Rhythm Respiratory: Yes: WNL, Regular, CTA Bilaterally Gastrointestinal: Yes: WNL, Normal Bowel Sounds, Soft Labs: CBC, BMP 09/25/18 05:45 09/25/18 05:45 INR, PTT INR 1.89 (0.83-1.09) H 09/20/18 05:50 Problem List - Problems (1) 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 Assessment/Plan: 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 Pt is now DNR Poor prognosis Will cont rahman at this point Code(s): C79.9 - SECONDARY MALIGNANT NEOPLASM OF UNSPECIFIED SITE; C67.9 - MALIGNANT NEOPLASM OF BLADDER, UNSPECIFIED (2) Jaundice Assessment/Plan: Pt w/ h/o liver mets Code(s): R17 - UNSPECIFIED JAUNDICE (3) Acute on chronic renal failure Assessment/Plan: Cont to monitor electrolytes Code(s): N17.9 - ACUTE KIDNEY FAILURE, UNSPECIFIED; N18.9 - CHRONIC KIDNEY DISEASE, UNSPECIFIED Qualifiers: Acute renal failure type: unspecified Chronic kidney disease stage: stage 3 (moderate) Qualified Code(s): N17.9 - Acute kidney failure, unspecified; N18.3 - Chronic kidney disease, stage 3 (moderate) (4) Anemia Assessment/Plan: Due to chronic dz/malignancy Will transfuse 1 unit PRBC's and give lasix 20mg IVP Code(s): D64.9 - ANEMIA, UNSPECIFIED Qualifiers: Anemia type: due to chronic kidney disease Chronic kidney disease stage: stage 3 (moderate) Qualified Code(s): N18.3 - Chronic kidney disease, stage 3 (moderate); D63.1 - Anemia in chronic kidney disease (5) Diarrhea Assessment/Plan: Resolved Code(s): R19.7 - DIARRHEA, UNSPECIFIED (6) HLD (hyperlipidemia) Code(s): E78.5 - HYPERLIPIDEMIA, UNSPECIFIED (7) Hypertension Code(s): I10 - ESSENTIAL (PRIMARY) HYPERTENSION Qualifiers: Hypertension type: other secondary hypertension Qualified Code(s): I15.8 - Other secondary hypertension (8) Fever Code(s): R50.9 - FEVER, UNSPECIFIED
[2018-09-25] MEDS ORDERED: FUROSEMIDE 40 MG/4 ML INJECTABLE VIAL IVPUSH ONE (23:00)
[2018-09-26] MEDS: DOCUSATE SODIUM 100 MG CAPSULE (FP) PO SCH ×4 (05:33→21:15)
[2018-09-26] MEDS ORDERED: FUROSEMIDE 40 MG/4 ML INJECTABLE VIAL ONE (05:35)
[2018-09-26] MEDS: INSULIN SLIDING SCALE (NOVOLOG) 1 VIAL SQ SCH ×4 (06:07→21:19)
[2018-09-26] MEDS: ACETAMINOPHEN 325 MG TABLET (FP) PO PRN (09:00)
--- NOTE | 2018-09-26 09:03 | PN ---
Progress Note, Physician Chief Complaint: seen and examined No acute distress TELE: NSR - Current Medication List Current Medications: Active Medications Acetaminophen (Tylenol -) 650 mg PO Q6H PRN PRN Reason: PAIN LEVEL 1-5 Last Admin: 09/25/18 21:06 Dose: 650 mg Al Hydroxide/Mg Hydroxide (Mylanta Oral Suspension -) 30 ml PO Q6H PRN PRN Reason: DYSPEPSIA Last Admin: 09/19/18 21:19 Dose: 30 ml Docusate Sodium (Colace -) 100 mg PO TID [facility] Last Admin: 09/26/18 05:33 Dose: Not Given Fluconazole (Diflucan -) 100 mg PO DAILY [facility] Last Admin: 09/25/18 09:55 Dose: 100 mg Insulin Aspart (Novolog Vial Sliding Scale -) 1 vial SQ ACHS [facility]; Protocol Last Admin: 09/26/18 06:07 Dose: Not Given Metoprolol Succinate (Toprol Xl -) 100 mg PO DAILY [facility] Last Admin: 09/25/18 09:55 Dose: 100 mg Mirtazapine (Remeron -) 15 mg PO [facility] Potassium Chloride (K-Dur -) 10 meq PO BID [facility] Last Admin: 09/25/18 21:05 Dose: 10 meq Sucralfate (Carafate Oral Suspension -) 1 gm PO QID [facility] Last Admin: 09/25/18 21:05 Dose: 1 gm Zolpidem Tartrate (Ambien -) 5 mg PO HS PRN PRN Reason: INSOMNIA Last Admin: 09/24/18 21:54 Dose: 5 mg - Objective Vital Signs: Vital Signs Temperature 98.2 F 09/26/18 09:01 Pulse Rate 82 09/26/18 09:01 Respiratory Rate 18 09/26/18 09:01 Blood Pressure 108/73 09/26/18 09:01 O2 Sat by Pulse Oximetry (%) 91 L 09/26/18 08:39 Constitutional: Yes: No Distress, Calm Cardiovascular: Yes: Regular Rate and Rhythm Respiratory: Yes: CTA Bilaterally (no rales or wheezing) Gastrointestinal: Yes: Soft (NT) Edema: No Neurological: Yes: Alert Labs: CBC, BMP 09/25/18 05:45 09/25/18 05:45 INR, PTT INR 1.89 (0.83-1.09) H 09/20/18 05:50 - ....Imaging EKG: Image Reviewed Assessment/Plan Assessment/Plan Metastatic CA Pericardial effusion, negative cytology, resolved. REC: Remains hemodynamically stable at this time. Further w/u as per PMD/Oncology DVT prophylaxis as per PMD and Oncology.
--- NOTE | 2018-09-26 09:29 | HP ---
History & Physical Update - History History: No Change - Physical Physical: No Change - Assessment Assessment: No Change (bun/creat. normal, urine-clear abd. soft, n/t, bs++ plan- keep confortable.)
[2018-09-26] MEDS: POTASSIUM CHLORIDE TABS 10 MEQ TABLET.ER (FP) PO SCH ×2 (09:33→21:15)
[2018-09-26] MEDS: FLUCONAZOLE 100 MG TABLET (UD) PO SCH (09:33)
[2018-09-26] MEDS: SUCRALFATE 1 GM/10 ML UNIT DOSE CUPS PO SCH ×4 (09:34→21:15)
[2018-09-26] MEDS ORDERED: ALBUTEROL SO4 2.5/IPRATROPIUM 0.5 INH SOL 3 ML VIAL.NEB. NEB PRN (11:05)
[2018-09-26] MEDS: MAG HYDROX/AL HYDROX/SIMETH 30 ML UNIT-DOSE CUP PO PRN (14:40)
--- NOTE | 2018-09-26 15:27 | PN ---
Progress Note, Physician History of Present Illness: patient not doing well says cannot take it any more pallative care has been d/w the family very weak - Current Medication List Current Medications: Active Medications Acetaminophen (Tylenol -) 650 mg PO Q6H PRN PRN Reason: PAIN LEVEL 1-5 Last Admin: 09/26/18 09:00 Dose: 650 mg Al Hydroxide/Mg Hydroxide (Mylanta Oral Suspension -) 30 ml PO Q6H PRN PRN Reason: DYSPEPSIA Last Admin: 09/26/18 14:40 Dose: 30 ml Albuterol/Ipratropium (Duoneb -) 1 amp NEB Q6H PRN PRN Reason: SHORTNESS OF BREATH Docusate Sodium (Colace -) 100 mg PO TID [facility] Last Admin: 09/26/18 14:09 Dose: Not Given Fluconazole (Diflucan -) 100 mg PO DAILY [facility] Last Admin: 09/26/18 09:33 Dose: 100 mg Insulin Aspart (Novolog Vial Sliding Scale -) 1 vial SQ ACHS [facility]; Protocol Last Admin: 09/26/18 11:51 Dose: 2 unit Metoprolol Succinate (Toprol Xl -) 100 mg PO DAILY [facility] Last Admin: 09/26/18 09:34 Dose: 100 mg Mirtazapine (Remeron -) 15 mg PO HS [facility] Potassium Chloride (K-Dur -) 10 meq PO BID [facility] Last Admin: 09/26/18 09:33 Dose: 10 meq Sucralfate (Carafate Oral Suspension -) 1 gm PO QID [facility] Last Admin: 09/26/18 13:43 Dose: 1 gm Zolpidem Tartrate (Ambien -) 5 mg PO HS PRN PRN Reason: INSOMNIA Last Admin: 09/24/18 21:54 Dose: 5 mg - Objective Vital Signs: Vital Signs Temperature 97.5 F L 09/26/18 14:01 Pulse Rate 80 09/26/18 14:01 Respiratory Rate 18 09/26/18 14:01 Blood Pressure 106/59 L 09/26/18 14:01 O2 Sat by Pulse Oximetry (%) 91 L 09/26/18 08:39 Constitutional: Yes: Calm, Other Cardiovascular: Yes: Regular Rate and Rhythm Respiratory: Yes: Regular, CTA Bilaterally Gastrointestinal: Yes: Normal Bowel Sounds, Soft Genitourinary: Yes: Galarza Present Musculoskeletal: Yes: WNL Extremities: Yes: WNL Neurological: Yes: Alert, Lethargy, Weakness Labs: CBC, BMP 09/25/18 05:45 09/25/18 05:45 INR, PTT INR 1.89 (0.83-1.09) H 09/20/18 05:50 Assessment/Plan i think patient is becoming septic will start patient on iv abx hydration nutrition supportive care rest as per the team Problem List - Problems (1) 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 Code(s): C79.9 - SECONDARY MALIGNANT NEOPLASM OF UNSPECIFIED SITE; C67.9 - MALIGNANT NEOPLASM OF BLADDER, UNSPECIFIED (2) Jaundice Code(s): R17 - UNSPECIFIED JAUNDICE (3) Acute on chronic renal failure Code(s): N17.9 - ACUTE KIDNEY FAILURE, UNSPECIFIED; N18.9 - CHRONIC KIDNEY DISEASE, UNSPECIFIED Qualifiers: Acute renal failure type: unspecified Chronic kidney disease stage: stage 3 (moderate) Qualified Code(s): N17.9 - Acute kidney failure, unspecified; N18.3 - Chronic kidney disease, stage 3 (moderate) (4) Anemia Code(s): D64.9 - ANEMIA, UNSPECIFIED Qualifiers: Anemia type: due to chronic kidney disease Chronic kidney disease stage: stage 3 (moderate) Qualified Code(s): N18.3 - Chronic kidney disease, stage 3 (moderate); D63.1 - Anemia in chronic kidney disease (5) Diarrhea Code(s): R19.7 - DIARRHEA, UNSPECIFIED (6) HLD (hyperlipidemia) Code(s): E78.5 - HYPERLIPIDEMIA, UNSPECIFIED (7) Hypertension Code(s): I10 - ESSENTIAL (PRIMARY) HYPERTENSION Qualifiers: Hypertension type: other secondary hypertension Qualified Code(s): I15.8 - Other secondary hypertension (8) Fever Code(s): R50.9 - FEVER, UNSPECIFIED 9 leukocytosis plan continue antifungal final plan awaited nutrition if possible onco note noted condition has detoriated prognosis does not seem good
[2018-09-26] MEDS: DEXTROSE 5%-0.45% SALINE 1,000 ML IV SCH (18:42)
--- NOTE | 2018-09-26 19:45 | PN ---
Progress Note, Physician History of Present Illness: Pt w/ decreased urine output - Current Medication List Current Medications: Active Medications Acetaminophen (Tylenol -) 650 mg PO Q6H PRN PRN Reason: PAIN LEVEL 1-5 Last Admin: 09/26/18 09:00 Dose: 650 mg Al Hydroxide/Mg Hydroxide (Mylanta Oral Suspension -) 30 ml PO Q6H PRN PRN Reason: DYSPEPSIA Last Admin: 09/26/18 14:40 Dose: 30 ml Albuterol/Ipratropium (Duoneb -) 1 amp NEB Q6H PRN PRN Reason: SHORTNESS OF BREATH Docusate Sodium (Colace -) 100 mg PO TID [facility] Last Admin: 09/26/18 16:21 Dose: 100 mg Fluconazole (Diflucan -) 100 mg PO DAILY [facility] Last Admin: 09/26/18 09:33 Dose: 100 mg Dextrose/Sodium Chloride (D5-1/2ns -) 1,000 mls @ 75 mls/hr IV ASDIR [facility] Last Admin: 09/26/18 18:42 Dose: 75 mls/hr Insulin Aspart (Novolog Vial Sliding Scale -) 1 vial SQ ACHS [facility]; Protocol Last Admin: 09/26/18 17:28 Dose: Not Given Megestrol Acetate (Megace Oral Suspension -) 800 mg PO DAILY [facility] Metoprolol Succinate (Toprol Xl -) 100 mg PO DAILY [facility] Last Admin: 09/26/18 09:34 Dose: 100 mg Mirtazapine (Remeron -) 15 mg PO HS [facility] Potassium Chloride (K-Dur -) 10 meq PO BID [facility] Last Admin: 09/26/18 09:33 Dose: 10 meq Sucralfate (Carafate Oral Suspension -) 1 gm PO QID [facility] Last Admin: 09/26/18 17:25 Dose: 1 gm Zolpidem Tartrate (Ambien -) 5 mg PO HS PRN PRN Reason: INSOMNIA Last Admin: 09/24/18 21:54 Dose: 5 mg - Objective Vital Signs: Vital Signs Temperature 98.3 F 09/26/18 18:00 Pulse Rate 79 09/26/18 18:00 Respiratory Rate 18 09/26/18 18:00 Blood Pressure 119/86 09/26/18 18:00 O2 Sat by Pulse Oximetry (%) 91 L 09/26/18 08:39 Constitutional: Yes: Pallor Eyes: Yes: Sclera Icterus Neck: Yes: WNL, Supple Cardiovascular: Yes: WNL, Regular Rate and Rhythm Respiratory: Yes: WNL, Regular, CTA Bilaterally Gastrointestinal: Yes: WNL, Normal Bowel Sounds, Soft Labs: CBC, BMP 09/25/18 05:45 09/25/18 05:45 INR, PTT INR 1.89 (0.83-1.09) H 09/20/18 05:50 Problem List - Problems (1) 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 Assessment/Plan: 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 Pt is now DNR Poor prognosis Decreased urine output Restart IVF and monitor Code(s): C79.9 - SECONDARY MALIGNANT NEOPLASM OF UNSPECIFIED SITE; C67.9 - MALIGNANT NEOPLASM OF BLADDER, UNSPECIFIED (2) Jaundice Assessment/Plan: Pt w/ h/o liver mets Code(s): R17 - UNSPECIFIED JAUNDICE (3) Acute on chronic renal failure Assessment/Plan: Cont to monitor electrolytes Code(s): N17.9 - ACUTE KIDNEY FAILURE, UNSPECIFIED; N18.9 - CHRONIC KIDNEY DISEASE, UNSPECIFIED Qualifiers: Acute renal failure type: unspecified Chronic kidney disease stage: stage 3 (moderate) Qualified Code(s): N17.9 - Acute kidney failure, unspecified; N18.3 - Chronic kidney disease, stage 3 (moderate) (4) Anemia Assessment/Plan: Due to chronic dz/malignancy Code(s): D64.9 - ANEMIA, UNSPECIFIED Qualifiers: Anemia type: due to chronic kidney disease Chronic kidney disease stage: stage 3 (moderate) Qualified Code(s): N18.3 - Chronic kidney disease, stage 3 (moderate); D63.1 - Anemia in chronic kidney disease (5) HLD (hyperlipidemia) Code(s): E78.5 - HYPERLIPIDEMIA, UNSPECIFIED (6) Hypertension Code(s): I10 - ESSENTIAL (PRIMARY) HYPERTENSION Qualifiers: Hypertension type: other secondary hypertension Qualified Code(s): I15.8 - Other secondary hypertension (7) Fever Assessment/Plan: Urine culture (+) for yeast Cont PO diflucan Code(s): R50.9 - FEVER, UNSPECIFIED (8) Diarrhea Assessment/Plan: Resolved Code(s): R19.7 - DIARRHEA, UNSPECIFIED
[2018-09-26] MEDS: MIRTAZAPINE 15 MG TABLET (FP) PO SCH (21:15)
[2018-09-26] MEDS: ZOLPIDEM TARTRATE 5 MG TABLET PO PRN (21:15)
[2018-09-27 06:25] LABS: BASO % 0.2 % (0-2.0); EOS % 0.1 % (0-4.5); HEMOGLOBIN 10.1 GM/dL (11.7-16.9); LYMPH % 5.1 % (8-40); MCH 22.3 pg (25.7-33.7); MCHC 30.7 g/dl (32.0-35.9); MEAN CELL VOLUME 72.5 fl (80-96); MEAN PLT VOLUME 9.2 fl (7.5-11.1); MONO % 1.6 % (3.8-10.2); PLATELET COUNT 319 K/MM3 (134-434); RBC 4.55 M/mm3 (4.00-5.60); RDW 27.7 % (11.9-15.9); WHITE BLOOD COUNT 26.3 K/mm3 (4.0-10.0)
[2018-09-27] MEDS: DOCUSATE SODIUM 100 MG CAPSULE (FP) PO SCH ×3 (06:32→22:07)
[2018-09-27] MEDS: INSULIN SLIDING SCALE (NOVOLOG) 1 VIAL SQ SCH ×4 (06:33→22:07)
[2018-09-27 06:59] LABS: ALBUMIN 1.5 g/dl (3.4-5.0); ALK PHOS 893 U/L (45-117); ANION GAP 15 MMOL/L (8-16); BILIRUBIN,TOTAL 5.9 mg/dL (0.2-1); BLOOD UREA NITROGEN 43 mg/dL (7-18); CHLORIDE 108 mmol/L (98-107); CO2 11 mmol/L (21-32); CREATININE 1.8 mg/dL (0.55-1.3); GLUCOSE,RANDOM 213 mg/dL (74-106); POTASSIUM 5.9 mmol/L (3.5-5.1); SGOT/AST 49 U/L (15-37); SGPT/ALT 23 U/L (13-61); SODIUM 134 mmol/L (136-145); TOT PROT 5.4 g/dl (6.4-8.2)
[2018-09-27 08:59] LABS: CALCIUM 6.8 mg/dL (8.5-10.1)
--- NOTE | 2018-09-27 09:05 | PN ---
Progress Note, Physician Chief Complaint: K+ elevated, acute on chronic renal failure TELE: NSR - Current Medication List Current Medications: Active Medications Acetaminophen (Tylenol -) 650 mg PO Q6H PRN PRN Reason: PAIN LEVEL 1-5 Last Admin: 09/26/18 09:00 Dose: 650 mg Al Hydroxide/Mg Hydroxide (Mylanta Oral Suspension -) 30 ml PO Q6H PRN PRN Reason: DYSPEPSIA Last Admin: 09/26/18 14:40 Dose: 30 ml Albuterol/Ipratropium (Duoneb -) 1 amp NEB Q6H PRN PRN Reason: SHORTNESS OF BREATH Docusate Sodium (Colace -) 100 mg PO TID [facility] Last Admin: 09/27/18 06:32 Dose: Not Given Fluconazole (Diflucan -) 100 mg PO DAILY [facility] Last Admin: 09/26/18 09:33 Dose: 100 mg Dextrose/Sodium Chloride (D5-1/2ns -) 1,000 mls @ 75 mls/hr IV ASDIR [facility] Last Admin: 09/26/18 18:42 Dose: 75 mls/hr Insulin Aspart (Novolog Vial Sliding Scale -) 1 vial SQ ACHS [facility]; Protocol Last Admin: 09/27/18 06:33 Dose: 4 unit Megestrol Acetate (Megace Oral Suspension -) 800 mg PO DAILY [facility] Metoprolol Succinate (Toprol Xl -) 100 mg PO DAILY [facility] Last Admin: 09/26/18 09:34 Dose: 100 mg Mirtazapine (Remeron -) 15 mg PO HS [facility] Last Admin: 09/26/18 21:15 Dose: 15 mg Potassium Chloride (K-Dur -) 10 meq PO BID [facility] Last Admin: 09/26/18 21:15 Dose: 10 meq Sucralfate (Carafate Oral Suspension -) 1 gm PO QID [facility] Last Admin: 09/26/18 21:15 Dose: 1 gm Zolpidem Tartrate (Ambien -) 5 mg PO HS PRN PRN Reason: INSOMNIA Last Admin: 09/26/18 21:15 Dose: 5 mg - Objective Vital Signs: Vital Signs Temperature 98.6 F 09/27/18 06:00 Pulse Rate 82 09/27/18 06:00 Respiratory Rate 18 09/27/18 06:00 Blood Pressure 110/82 09/27/18 06:00 O2 Sat by Pulse Oximetry (%) 91 L 09/26/18 20:10 Constitutional: Yes: Calm Cardiovascular: Yes: Regular Rate and Rhythm Respiratory: Yes: CTA Bilaterally (no rales or wheezing) Gastrointestinal: Yes: Soft Edema: No Neurological: Yes: Alert, Oriented ...Motor Strength: WNL Labs: CBC, BMP 09/27/18 06:00 09/27/18 06:00 INR, PTT INR 1.89 (0.83-1.09) H 09/20/18 05:50 - ....Imaging EKG: Image Reviewed Assessment/Plan Assessment/Plan Metastatic CA Pericardial effusion, negative cytology, resolved. Acute renal failure Hyperkalemia REC: D/C K+ and Metoprolol. Kayexalate Repeat chem profile Remains hemodynamically stable at this time. Further w/u as per PMD/Oncology DVT prophylaxis as per PMD and Oncology.
[2018-09-27] MEDS ORDERED: SODIUM POLYSTYRENE SULFONATE 15 GM/60 ML BOTTLE PO ONE ×3 (09:15→23:00)
[2018-09-27 09:23] LABS: ANISOCYTOSIS 1+; MACROCYTOSIS 0; OVALOCYTE 1+; PLATELET ESTIMATE NORMAL; TARGET CELLS 1+
[2018-09-27] MEDS ORDERED: MEGESTROL ACETATE 400 MG/10 ML UNIT DOSE CUP PO SCH (10:00)
[2018-09-27] MEDS ORDERED: PT OWN MED DRAWER 7, Y5N ONE ×3 (10:46→22:53)
[2018-09-27] MEDS: SUCRALFATE 1 GM/10 ML UNIT DOSE CUPS PO SCH ×4 (10:58→22:07)
--- NOTE | 2018-09-27 13:17 | PN ---
Progress Note, Physician History of Present Illness: patient has become extremely weak wbc has jumped up does not look good - Current Medication List Current Medications: Active Medications Acetaminophen (Tylenol -) 650 mg PO Q6H PRN PRN Reason: PAIN LEVEL 1-5 Last Admin: 09/26/18 09:00 Dose: 650 mg Al Hydroxide/Mg Hydroxide (Mylanta Oral Suspension -) 30 ml PO Q6H PRN PRN Reason: DYSPEPSIA Last Admin: 09/26/18 14:40 Dose: 30 ml Albuterol/Ipratropium (Duoneb -) 1 amp NEB Q6H PRN PRN Reason: SHORTNESS OF BREATH Docusate Sodium (Colace -) 100 mg PO TID [facility] Last Admin: 09/27/18 06:32 Dose: Not Given Fluconazole (Diflucan -) 100 mg PO DAILY [facility] Last Admin: 09/26/18 09:33 Dose: 100 mg Dextrose/Sodium Chloride (D5-1/2ns -) 1,000 mls @ 75 mls/hr IV ASDIR [facility] Last Admin: 09/26/18 18:42 Dose: 75 mls/hr Insulin Aspart (Novolog Vial Sliding Scale -) [address] [facility]; Protocol Last Admin: 09/27/18 13:10 Dose: 4 unit Megestrol Acetate (Megace Oral Suspension -) 800 mg PO DAILY [facility] Mirtazapine (Remeron -) 15 mg PO HS [facility] Last Admin: 09/26/18 21:15 Dose: 15 mg Sucralfate (Carafate Oral Suspension -) 1 gm PO QID [facility] Last Admin: 09/27/18 10:58 Dose: Not Given Zolpidem Tartrate (Ambien -) 5 mg PO HS PRN PRN Reason: INSOMNIA Last Admin: 09/26/18 21:15 Dose: 5 mg - Objective Vital Signs: Vital Signs Temperature 98.6 F 09/27/18 06:00 Pulse Rate 82 09/27/18 06:00 Respiratory Rate 18 09/27/18 06:00 Blood Pressure 110/82 09/27/18 06:00 O2 Sat by Pulse Oximetry (%) 91 L 09/26/18 20:10 Constitutional: Yes: No Distress, Other Cardiovascular: Yes: Regular Rate and Rhythm Respiratory: Yes: Regular, On Nasal O2 Gastrointestinal: Yes: Normal Bowel Sounds, Soft Genitourinary: Yes: Galarza Present Musculoskeletal: Yes: WNL Extremities: Yes: WNL Neurological: Yes: Alert, Lethargy Psychiatric: Yes: Other Labs: CBC, BMP 09/27/18 06:00 09/27/18 06:00 INR, PTT INR 1.89 (0.83-1.09) H 09/20/18 05:50 Assessment/Plan i think patient is becoming septic will start patient on iv abx hydration nutrition supportive care rest as per the team Problem List - Problems (1) 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 Code(s): C79.9 - SECONDARY MALIGNANT NEOPLASM OF UNSPECIFIED SITE; C67.9 - MALIGNANT NEOPLASM OF BLADDER, UNSPECIFIED (2) Jaundice Code(s): R17 - UNSPECIFIED JAUNDICE (3) Acute on chronic renal failure Code(s): N17.9 - ACUTE KIDNEY FAILURE, UNSPECIFIED; N18.9 - CHRONIC KIDNEY DISEASE, UNSPECIFIED Qualifiers: Acute renal failure type: unspecified Chronic kidney disease stage: stage 3 (moderate) Qualified Code(s): N17.9 - Acute kidney failure, unspecified; N18.3 - Chronic kidney disease, stage 3 (moderate) (4) Anemia Code(s): D64.9 - ANEMIA, UNSPECIFIED Qualifiers: Anemia type: due to chronic kidney disease Chronic kidney disease stage: stage 3 (moderate) Qualified Code(s): N18.3 - Chronic kidney disease, stage 3 (moderate); D63.1 - Anemia in chronic kidney disease (5) Diarrhea Code(s): R19.7 - DIARRHEA, UNSPECIFIED (6) HLD (hyperlipidemia) Code(s): E78.5 - HYPERLIPIDEMIA, UNSPECIFIED (7) Hypertension Code(s): I10 - ESSENTIAL (PRIMARY) HYPERTENSION Qualifiers: Hypertension type: other secondary hypertension Qualified Code(s): I15.8 - Other secondary hypertension (8) Fever Code(s): R50.9 - FEVER, UNSPECIFIED 9 leukocytosis abx started
--- NOTE | 2018-09-27 14:20 | PN ---
Progress Note (short form) - Note Progress Note: Patient seen and examined Poorly responsive Last Vital Signs Temp Pulse Resp BP Pulse Ox 98.6 F 92 H 18 105/71 91 L 09/27/18 13:56 09/27/18 13:56 09/27/18 13:56 09/27/18 13:56 09/26/18 20:10 HEENT: [place]CH[place], EOM Intact Cor: RSR, No murmurs, No gallops Lungs: diminished breath sounds Abd: Soft, Normal bowel sounds, No organomegaly Ext:No significant edema Skin: No rashes, Integument intact CBC, BMP 09/27/18 06:00 09/27/18 06:00 Current Medications Generic Name Dose Route Start Last Admin Trade Name Freq PRN Reason Stop Dose Admin Acetaminophen 650 mg 09/23/18 22:20 09/26/18 09:00 Tylenol - PO 650 mg Q6H PRN Administration PAIN LEVEL 1-5 Al Hydroxide/Mg Hydroxide 30 ml 09/19/18 18:00 09/26/18 14:40 Mylanta Oral Suspension - PO 30 ml Q6H PRN Administration DYSPEPSIA Albuterol/Ipratropium 1 amp 09/26/18 11:05 Duoneb - NEB Q6H PRN SHORTNESS OF BREATH Docusate Sodium 100 mg 09/17/18 06:00 09/27/18 06:32 Colace - PO Not Given TID [facility] Fluconazole 100 mg 09/19/18 13:45 09/26/18 09:33 Diflucan - PO 100 mg DAILY [facility] Administration Dextrose/Sodium Chloride 1,000 mls @ 75 mls/hr 09/26/18 17:45 09/26/18 18:42 D5-1/2ns - IV 75 mls/hr ASDIR [facility] Administration Meropenem 1 gm/ Dextrose 100 mls @ 200 mls/hr 09/27/18 14:00 IVPB Q8H-IV [facility] Insulin Aspart 1 vial 09/17/18 07:00 09/27/18 13:10 Novolog Vial Sliding Scale - SQ 4 unit ACHS [facility] Administration Protocol Megestrol Acetate 800 mg 09/27/18 10:00 Megace Oral Suspension - PO DAILY [facility] Mirtazapine 15 mg 09/26/18 22:00 09/26/18 21:15 Remeron - PO 15 mg HS [facility] Administration Sucralfate 1 gm 09/19/18 18:57 09/27/18 10:58 Carafate Oral Suspension - PO Not Given QID [facility] Zolpidem Tartrate 5 mg 09/24/18 21:05 09/26/18 21:15 Ambien - PO 5 mg HS PRN Administration INSOMNIA Impression: Metastatic bladder ca Hyperchloremic acidosis Leucocytosis Likely septic based upon above hyperkalemia Suggest Antibiotics per ID Renal evaluation Begin kayexalate Not a candidate for treatment at this time.
[2018-09-27] MEDS: FLUCONAZOLE 100 MG TABLET (UD) PO SCH (14:50)
[2018-09-27] MEDS: MEROPENEM 1 GM in DEXTROSE 5%-WATER 100 ML IVPB SCH ×2 (15:28→18:00)
[2018-09-27] MEDS: DEXTROSE 5%-0.45% SALINE 1,000 ML IV SCH (17:59)
[2018-09-27 21:46] LABS: ANION GAP 15 MMOL/L (8-16); BLOOD UREA NITROGEN 50 mg/dL (7-18); CHLORIDE 108 mmol/L (98-107); CO2 14 mmol/L (21-32); CREATININE 2.4 mg/dL (0.55-1.3); GLUCOSE,RANDOM 199 mg/dL (74-106); SODIUM 136 mmol/L (136-145)
[2018-09-27] MEDS: MIRTAZAPINE 15 MG TABLET (FP) PO SCH (22:07)
--- NOTE | 2018-09-27 22:37 | PN ---
Progress Note, Physician History of Present Illness: No noew complaints - Current Medication List Current Medications: Active Medications Acetaminophen (Tylenol -) 650 mg PO Q6H PRN PRN Reason: PAIN LEVEL 1-5 Last Admin: 09/26/18 09:00 Dose: 650 mg Al Hydroxide/Mg Hydroxide (Mylanta Oral Suspension -) 30 ml PO Q6H PRN PRN Reason: DYSPEPSIA Last Admin: 09/26/18 14:40 Dose: 30 ml Albuterol/Ipratropium (Duoneb -) 1 amp NEB Q6H PRN PRN Reason: SHORTNESS OF BREATH Docusate Sodium (Colace -) 100 mg PO TID [facility] Last Admin: 09/27/18 22:07 Dose: Not Given Fluconazole (Diflucan -) 100 mg PO DAILY [facility] Last Admin: 09/27/18 14:50 Dose: 100 mg Dextrose/Sodium Chloride (D5-1/2ns -) 1,000 mls @ 75 mls/hr IV ASDIR [facility] Last Admin: 09/27/18 17:59 Dose: 75 mls/hr Meropenem 1 gm/ Dextrose 100 mls @ 200 mls/hr IVPB Q8H-IV [facility] Last Admin: 09/27/18 18:00 Dose: 200 mls/hr Insulin Aspart (Novolog Vial Sliding Scale -) 1 vial SQ ACHS [facility]; Protocol Last Admin: 09/27/18 22:07 Dose: 4 unit Megestrol Acetate (Megace Oral Suspension -) 800 mg PO DAILY [facility] Last Admin: 09/27/18 14:44 Dose: 800 mg Mirtazapine (Remeron -) 15 mg PO HS [facility] Last Admin: 09/27/18 22:07 Dose: Not Given Sucralfate (Carafate Oral Suspension -) 1 gm PO QID [facility] Last Admin: 09/27/18 22:07 Dose: 1 gm - Objective Vital Signs: Vital Signs Temperature 97.3 F L 09/27/18 21:04 Pulse Rate 87 09/27/18 21:04 Respiratory Rate 18 09/27/18 21:04 Blood Pressure 106/72 09/27/18 21:04 O2 Sat by Pulse Oximetry (%) 92 L 09/27/18 21:00 Constitutional: Yes: Pallor Eyes: Yes: Sclera Icterus Neck: Yes: WNL, Supple Cardiovascular: Yes: WNL, Regular Rate and Rhythm Respiratory: Yes: WNL, Regular, CTA Bilaterally Gastrointestinal: Yes: WNL, Normal Bowel Sounds, Soft Labs: CBC, BMP 09/27/18 06:00 09/27/18 20:15 INR, PTT INR 1.89 (0.83-1.09) H 09/20/18 05:50 Problem List - Problems (1) 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 Assessment/Plan: 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 Pt is now DNR Poor prognosis DC planning in am to hospice Code(s): C79.9 - SECONDARY MALIGNANT NEOPLASM OF UNSPECIFIED SITE; C67.9 - MALIGNANT NEOPLASM OF BLADDER, UNSPECIFIED (2) Jaundice Code(s): R17 - UNSPECIFIED JAUNDICE (3) Acute on chronic renal failure Code(s): N17.9 - ACUTE KIDNEY FAILURE, UNSPECIFIED; N18.9 - CHRONIC KIDNEY DISEASE, UNSPECIFIED Qualifiers: Acute renal failure type: unspecified Chronic kidney disease stage: stage 3 (moderate) Qualified Code(s): N17.9 - Acute kidney failure, unspecified; N18.3 - Chronic kidney disease, stage 3 (moderate) (4) Anemia Code(s): D64.9 - ANEMIA, UNSPECIFIED Qualifiers: Anemia type: due to chronic kidney disease Chronic kidney disease stage: stage 3 (moderate) Qualified Code(s): N18.3 - Chronic kidney disease, stage 3 (moderate); D63.1 - Anemia in chronic kidney disease (5) HLD (hyperlipidemia) Code(s): E78.5 - HYPERLIPIDEMIA, UNSPECIFIED (6) Hypertension Code(s): I10 - ESSENTIAL (PRIMARY) HYPERTENSION Qualifiers: Hypertension type: other secondary hypertension Qualified Code(s): I15.8 - Other secondary hypertension (7) Fever Code(s): R50.9 - FEVER, UNSPECIFIED (8) Diarrhea Code(s): R19.7 - DIARRHEA, UNSPECIFIED
[2018-09-27 22:50] LABS: CALCIUM 6.7 mg/dL (8.5-10.1); POTASSIUM 6.3 mmol/L (3.5-5.1)
[2018-09-28] MEDS: MEROPENEM 1 GM in DEXTROSE 5%-WATER 100 ML IVPB SCH ×2 (01:01→09:07)
[2018-09-28 06:12] LABS: BASO % 0.3 % (0-2.0); EOS % 0.2 % (0-4.5); HEMATOCRIT 31.5 % (35.4-49); HEMOGLOBIN 9.5 GM/dL (11.7-16.9); LYMPH % 31.2 % (8-40); MCH 22.4 pg (25.7-33.7); MCHC 30.3 g/dl (32.0-35.9); MEAN CELL VOLUME 73.9 fl (80-96); MEAN PLT VOLUME 9.1 fl (7.5-11.1); MONO % 2.3 % (3.8-10.2); PLATELET COUNT 234 K/MM3 (134-434); RBC 4.26 M/mm3 (4.00-5.60); RDW 28.2 % (11.9-15.9); WHITE BLOOD COUNT 16.8 K/mm3 (4.0-10.0)
[2018-09-28] MEDS: DOCUSATE SODIUM 100 MG CAPSULE (FP) PO SCH (06:14)
[2018-09-28] MEDS: INSULIN SLIDING SCALE (NOVOLOG) 1 VIAL SQ SCH (06:41)
[2018-09-28 06:45] LABS: ALBUMIN 1.4 g/dl (3.4-5.0); ALK PHOS 754 U/L (45-117); ANION GAP 14 MMOL/L (8-16); BILIRUBIN,TOTAL 5.4 mg/dL (0.2-1); BLOOD UREA NITROGEN 55 mg/dL (7-18); CHLORIDE 109 mmol/L (98-107); CO2 14 mmol/L (21-32); CREATININE 2.7 mg/dL (0.55-1.3); GLUCOSE,RANDOM 189 mg/dL (74-106); POTASSIUM 5.3 mmol/L (3.5-5.1); SGOT/AST 41 U/L (15-37); SGPT/ALT 23 U/L (13-61); SODIUM 137 mmol/L (136-145); TOT PROT 5.4 g/dl (6.4-8.2)
[2018-09-28 06:51] LABS: CALCIUM 6.7 mg/dL (8.5-10.1)
[2018-09-28 07:51] LABS: MAGNESIUM 2.3 mg/dL (1.8-2.4)
[2018-09-28 08:17] VITALS: BP 122/84; PULSE 82; TEMP 97.2
[2018-09-28] MEDS ORDERED: PT OWN MED DRAWER 7, Y5N ONE ×2 (08:34→09:09)
--- NOTE | 2018-09-28 09:02 | PN ---
Progress Note, Physician Chief Complaint: sleeping comfortably Planned for d/c today K+ has come down. - Current Medication List Current Medications: Active Medications Acetaminophen (Tylenol -) 650 mg PO Q6H PRN PRN Reason: PAIN LEVEL 1-5 Last Admin: 09/26/18 09:00 Dose: 650 mg Al Hydroxide/Mg Hydroxide (Mylanta Oral Suspension -) 30 ml PO Q6H PRN PRN Reason: DYSPEPSIA Last Admin: 09/26/18 14:40 Dose: 30 ml Albuterol/Ipratropium (Duoneb -) 1 amp NEB Q6H PRN PRN Reason: SHORTNESS OF BREATH Docusate Sodium (Colace -) 100 mg PO TID [facility] Last Admin: 09/28/18 06:14 Dose: Not Given Fluconazole (Diflucan -) 100 mg PO DAILY [facility] Last Admin: 09/27/18 14:50 Dose: 100 mg Dextrose/Sodium Chloride (D5-1/2ns -) 1,000 mls @ 75 mls/hr IV ASDIR [facility] Last Admin: 09/27/18 17:59 Dose: 75 mls/hr Meropenem 1 gm/ Dextrose 100 mls @ 200 mls/hr IVPB Q8H-IV [facility] Last Admin: 09/28/18 01:01 Dose: 200 mls/hr Insulin Aspart (Novolog Vial Sliding Scale -) 1 vial SQ ACHS [facility]; Protocol Last Admin: 09/28/18 06:41 Dose: 2 unit Megestrol Acetate (Megace Oral Suspension -) 800 mg PO DAILY [facility] Last Admin: 09/27/18 14:44 Dose: 800 mg Mirtazapine (Remeron -) 15 mg PO HS [facility] Last Admin: 09/27/18 22:07 Dose: Not Given Sucralfate (Carafate Oral Suspension -) 1 gm PO QID [facility] Last Admin: 09/27/18 22:07 Dose: 1 gm - Objective Vital Signs: Vital Signs Temperature 97.2 F L 09/28/18 08:16 Pulse Rate 82 09/28/18 08:16 Respiratory Rate 20 09/28/18 08:16 Blood Pressure 122/84 09/28/18 08:16 O2 Sat by Pulse Oximetry (%) 93 L 09/28/18 08:27 Constitutional: Yes: No Distress, Calm Eyes: Yes: Conjunctiva Clear Cardiovascular: Yes: Regular Rate and Rhythm Respiratory: Yes: Other (no wheezing) Gastrointestinal: Yes: Soft Edema: No Labs: CBC, BMP 09/28/18 06:00 09/28/18 06:00 INR, PTT INR 1.89 (0.83-1.09) H 09/20/18 05:50 Microbiology 09/17/18 04:51 Urine - Urine Clean Catch Urine Culture - Final Yeast Like Organism 09/16/18 09:27 Blood - Peripheral Venous Blood Culture - Preliminary NO GROWTH OBTAINED AFTER 72 HOURS, INCUBATION TO CONTINUE FOR 2 DAYS. 09/16/18 09:27 Blood - Peripheral Venous Blood Culture - Preliminary NO GROWTH OBTAINED AFTER 48 HOURS, INCUBATION TO CONTINUE FOR 3 DAYS. 09/16/18 09:16 Blood - Peripheral Venous Blood Culture - Preliminary NO GROWTH OBTAINED AFTER 72 HOURS, INCUBATION TO CONTINUE FOR 2 DAYS. 09/16/18 09:16 Blood - Peripheral Venous Blood Culture - Preliminary NO GROWTH OBTAINED AFTER 48 HOURS, INCUBATION TO CONTINUE FOR 3 DAYS. Laboratory Tests 09/07/18 09/07/18 09/19/18 06:00 06:00 20:40 WBC 10.2 H Hgb 8.2 L Hct 25.6 L Plt Count 208 Sodium 133 L Potassium 4.1 BUN Creatinine 0.5 L Calcium Magnesium Total Bilirubin AST ALT Troponin I < 0.02 09/20/18 09/20/18 09/20/18 05:50 05:50 05:50 WBC 38.5 H* Hgb 6.8 L* Hct Plt Count 248 Sodium 138 Potassium 4.9 BUN Creatinine Calcium 6.1 L* Magnesium 1.8 Total Bilirubin 6.3 H AST ALT Troponin I < 0.02 09/21/18 09/21/18 09/22/18 06:00 06:00 06:00 WBC 26.6 H Hgb 8.4 L Hct Plt Count 272 Sodium 136 135 L Potassium 5.2 H 5.0 BUN 25 H 27 H Creatinine 0.6 0.7 Calcium 6.2 L* Magnesium Total Bilirubin AST ALT Troponin I 09/22/18 09/25/18 09/25/18 06:00 05:45 05:45 WBC 19.3 H 13.3 H Hgb 8.1 L 8.5 L Hct 26.5 L Plt Count 229 251 Sodium 136 Potassium 4.8 BUN 17 Creatinine 0.5 L Calcium 6.6 L* Magnesium Total Bilirubin AST 52 H ALT 30 Troponin I 09/27/18 09/27/18 09/28/18 06:00 06:00 06:00 WBC 26.3 H 16.8 H Hgb 10.1 L 9.5 L Hct 31.5 L Plt Count 319 D 234 D Sodium 134 L Potassium 5.9 H BUN 43 H Creatinine 1.8 H Calcium Magnesium Total Bilirubin AST ALT Troponin I 09/28/18 06:00 WBC Hgb Hct Plt Count Sodium 137 Potassium 5.3 H BUN 55 H Creatinine 2.7 H Calcium 6.7 L* Magnesium Total Bilirubin AST ALT Troponin I - ....Imaging EKG: Image Reviewed Assessment/Plan Assessment/Plan Metastatic CA Pericardial effusion, negative cytology, resolved. Acute renal failure Hyperkalemia REC: D/C K+ and Metoprolol. K+ resolved Further w/u as per PMD/Oncology DVT prophylaxis as per PMD and Oncology. Discharge planning
[2018-09-28] MEDS: SUCRALFATE 1 GM/10 ML UNIT DOSE CUPS PO SCH (09:07)
[2018-09-28] MEDS: FLUCONAZOLE 100 MG TABLET (UD) PO SCH (09:08)
[2018-09-28] MEDS ORDERED: SODIUM POLYSTYRENE SULFONATE 15 GM/60 ML BOTTLE PO STA (09:30)
[2018-09-28 11:51] LABS: ANISOCYTOSIS 1+; MACROCYTOSIS 0; PLATELET ESTIMATE NORMAL; TARGET CELLS 2+
== END 2018-09-28 10:37 | disposition home or self-care (01) | DRG 686 ==
LOC: JER 20:17 → SUPCPDRO 20:17 → JERBED 23:07 → J6S 09-18 19:11 → J4S 09-19 20:11
PROVIDERS: ADMIT Internal Medicine; ATTEND Internal Medicine
PROC: 30233N1 Transfusion of Nonautologous Red Blood Cells into Peripheral Vein, Percutaneous Approach (ICD-10-PCS; principal; 2018-09-20)
DX: C67.9 Malignant neoplasm of bladder, unspecified (principal); J96.01 Acute respiratory failure with hypoxia; A41.9 Sepsis, unspecified organism; C78.7 Secondary malignant neoplasm of liver and intrahepatic bile duct; C79.51 Secondary malignant neoplasm of bone; N17.9 Acute kidney failure, unspecified; R17 Unspecified jaundice; I31.3 Pericardial effusion (noninflammatory); E87.2 Acidosis; N39.0 Urinary tract infection, site not specified; N13.6 Pyonephrosis; R00.0 Tachycardia, unspecified; R50.9 Fever, unspecified; E78.5 Hyperlipidemia, unspecified; N40.0 Benign prostatic hyperplasia without lower urinary tract symptoms; D64.9 Anemia, unspecified; I12.9 Hypertensive chronic kidney disease with stage 1 through stage 4 chronic kidney disease, or unspecified chronic kidney disease; E11.22 Type 2 diabetes mellitus with diabetic chronic kidney disease; N18.3 Chronic kidney disease, stage 3 (moderate); D63.1 Anemia in chronic kidney disease; R19.7 Diarrhea, unspecified; K74.60 Unspecified cirrhosis of liver; R07.89 Other chest pain; E87.8 Other disorders of electrolyte and fluid balance, not elsewhere classified; E87.5 Hyperkalemia; R33.9 Retention of urine, unspecified; D72.829 Elevated white blood cell count, unspecified; E66.9 Obesity, unspecified; Z68.23 Body mass index [BMI] 23.0-23.9, adult; Z87.891 Personal history of nicotine dependence; Z66 Do not resuscitate
CPT/HCPCS: 36415; 36430; 36600; 71045-TC-FY; 71275-TC; 74176-TC; 74181-TC; 76700-TC; 80048; 80053; 81003; 81015; 82140; 82272; 82550; 82803; 82962; 83605; 83735; 83880; 84100; 84484; 85025; 85027; 85610; 85730; 86850; 86900; 86901; 86922; 87040; 87077; 87086; 93005; 93010; 93306-TC; 94640; 97116-GP; 97161-GP; 99285-25; J1644; J7030; P9038; P9058